=== PATIENT | female | born 1950 | race Caucasian/White ===

== ENCOUNTER 2017-05-19 10:30 | Outpatient (RCR) | payer MEDICARE, OTHER, SELFPAY ==
--- NOTE | 2017-05-05 13:12 | HP.PTEVAL_ITS ---
Patient's Visit Information DOUG REYES is a 66 year old F referred to Physical Therapy by Raven Mark with a diagnosis of CERVICAL FUSION 10/02/16. Date of Evaluation: 05/05/17 Physical Therapist: Anna Martinez Visit Plan Frequency: 2-3x /Week Duration: 4-6 Weeks Plan: THORACIC SOFT TISSUE MOBILIZATION. US. POSTURE CORRECTION/STRENGTHENING. - Subjective Subjective: Work/Leisure: RETIRED. Disability: YES. Present symptoms: PATIENT POINTS TO/INDICATES RIGHT MEDIAL SCAPULAR REGION PAIN. CHRONIC KRUNAL UE NUMBNESS AND TINGLING. Present since: A FEW WEEKS AFTER NECK SURGERY IN OCTOBER 2016. Pain Scale: WORST 8/10, LEAST 0/10. Currently: 0/10. UNCHANGING. Commenced as a result of: NO APPARENT REASON OTHER THAN NECK SURGERY. Symptoms at onset: SAME. Worse: NOTHING. Better: ICE OR HEAT. Disturbed sleep : YES. Previous history/Previous treatment: PHYSICAL THERAPY FOR 3 WEEKS IN THE [facility] AFTER SURGERY IN OCTOBER 2016. OTHER: PATIENT DENIES DIZZINESS, NAUSEA AND TINNITIS BUT REPORTS SHE DOES STILL HAVE SOME DIFFICULTY SWOLLOWING. Gait: DIFFICULT DUE TO BACK AND HIP PAIN BUT NO AD'S. Accidents: NO. Unexplained weight loss: NO. Imaging: RECENT NECK X-RAY SHOWING FUSION SX. PMH: OSTEOPOROSIS, ARTHRITIS. Recent major surgery: RIGHT TSR IN 2015. NECK FUSION OCTOBER 2016 - Objective Posture: POOR - FORWARD HEAD. NO TORTICOLLIS. ROUNDED SHOULDERS. Motor deficit: KRUNAL UE WEAKNESS BUT WFL. RIGHT UE IS WEAKER THAN LEFT AND GROSSLY 3+/ 5 WITH MMT OF SHOULDER. RIGHT ELBOW 4-/5 AND NETWORK SECURITY CONSULTANT 15 LBS. PATIENT IS RIGHT HAND DOMINANT. LEFT SHOULDER 4-/5, ELBOW 4/5 AND NETWORK SECURITY CONSULTANT 20 LBS. Sensory deficit: KRUNAL UE LIGHT TOUCH SENSATION APPEARS TO BE SYMMETRICAL WITH TESTING BUT ALTHOUGH SHE CAN FEEL ME TOUCHING HER ABOUT THE SAME ON BOTH SIDES THEY FEEL NUMB AND TINGLY TO HER. SHE DOES HAVE DECREASED LIGHT TOUCH SENSATION OF THE LEFT MEDIAL SCAPULAR REGION COMPARED TO THE RIGHT. ROM deficit: KRUNAL UE ROM IS WFL BUT SHE HAS ARTHRITIC HANDS AND HER RIGHT SHOULDER IS ABOUT 25% LIMITED. Dural Signs: POSITIVE KRUNAL UE'S. CERVICAL MVMT LOSS: FLEX - MIN, EXT - SOL, KRUNAL ROT - MOD TO SOL, KRUNAL SB - SOL, RETRACTION - SOL, PROTRACTION - NIL. Postural Strength: POOR. Palpation: TENDERNESS WITH PALPATION OF THE LEFT THORACIC PARASPINALS AT ABOUT THE [id number] REGION COMPARED TO THE LEFT. INCREASED MUSCLE TONE OF LEFT CERVICAL AND THORACIC PARASPINALS COMPARED TO THE RIGHT. - Goals Goal 1:: DECREASE C/O LEFT MEDIAL SCAPULAR REGION PAIN Goal Time Frame: 4-6 Weeks Goal 2:: IMPROVE PERSONAL CARE, LIFTING, SLEEP, ADL, DRIVING AND RECREATIONAL FUNCTION. Goal Time Frame: 4-6 Weeks Goal 3:: INSTRUCT IN PROPHYLAXIS Goal Time Frame: 4-6 Weeks - Rehabilitation Potential Rehabilitation Potential: Fair - Anticipated Interventions Patient/Client Instruction: Educate patient on: Condition, Plan of Care, Risk Factors, Benefits of Fitness Program For the Purpose of:: To improve self management Therapeutic Exercise to Include: Strength training, Body mechanics, Postural training, Flexibilty training, Scapular Strength/Stabilization For the Purpose of:: To decrease pain, To increase ROM, To improve ability to perform ADL's, To improve ability of physical actions for home/community/work/ leisure Manual Therapy Techniques to Include: Soft tissue mobilization For the Purpose of:: To decrease pain, To decrease swelling/inflammation Cryotherapy (ice pack, ice massage): Yes Thermo therapy (hot pack): Yes Ultrasound (thermal/non thermal): Yes For the Purpose of:: To decrease pain, To decrease swelling/inflammation, To increase ROM Thank you for the opportunity to evaluate your patient. For Medicare and Medicare HMO plans, please review the plan of care and approve it. It will need to be FAXED BACK to us at [phone] for Medicare purposes. Please let me know if there are questions or concerns regarding this plan of care. Physician Signature: Date:
--- NOTE | 2017-07-01 10:49 | HP.PTDCNRP_ITS ---
HP - Discharge Summary (1) - Patient Information DOUG REYES was seen in my office for initial evaluation on 05/05/17. The following Plan of Care was established for this patient: Initial Frequency: 2-3x /Week Initial Duration: 4-6 Weeks - Anticipated Interventions Patient/Client Instruction: Educate patient on: Condition, Plan of Care, Risk Factors, Benefits of Fitness Program For the Purpose of:: To improve self management Therapeutic Exercise to Include: Strength training, Body mechanics, Postural training, Flexibilty training, Scapular Strength/Stabilization For the Purpose of:: To decrease pain, To increase ROM, To improve ability to perform ADL's, To improve ability of physical actions for home/community/work/ leisure Manual Therapy Techniques to Include: Soft tissue mobilization For the Purpose of:: To decrease pain, To decrease swelling/inflammation Cryotherapy (ice pack, ice massage): Yes Thermo therapy (hot pack): Yes Ultrasound (thermal/non thermal): Yes For the Purpose of:: To decrease pain, To decrease swelling/inflammation, To increase ROM This patient was last seen in our office 05/19/17. Pertinent comments regarding their Physical therapy will appear below: This patient has not returned to Physical Therapy and is appropriate to return to MD for further follow-up as needed. At this point I will be discontinuing this patient from physical therapy. I would be happy to see this patient again in the future if found appropriate by the physician. Thank you! Anna Hudson
== END 2017-05-19 19:00 | disposition home or self-care (01) ==
LOC: PT 10:30
PROVIDERS: Family Provider Family Medicine; PCP Family Medicine; Visit Provider Orthopaedic Surgery
DX: Z98.890 Other specified postprocedural states (principal)
CPT/HCPCS: 97110; 97162; 97530

== ENCOUNTER 2017-07-03 15:41 | Inpatient (IN) | payer MEDICARE, OTHER, SELFPAY ==
[2017-07-03 16:10] VITALS: BP 98/64; PULSE 100; RESP 18; TEMP 37.2; O2SAT 93; BMI 23.3
--- NOTE | 2017-07-03 16:11 | REHABEVAL_ITS ---
Admission Information Status Changes from Prescreening?: No changes Identified Actual Problem List:: Pain, ALteration in Cmfrt, Mobility Impaired, Self Care Deficit Potential Problem List:: DVT, Bleeding, Infection, UTI, Aspiration, Falls, Skin Integrity, Depression Risk of Complications DVT: EVAN Schaefer, Sequential Compression Device Bleeding: Monitor Lab Values, Nursing to Teach Precautions for anti-coagulation therapy., Wound, if applicable, to be assessed every shift., Stroke patients assessed for lethargy or change in status. Infection: Clinical Staff to Monitor for S/S of infection:, S/S of infection include fever, redness, warmth, etc. Urinary Tract Infection: Monitor for frequency, burning, discomfort, or incontinence., Nursing will obtain urine sample for urinalysis and C&S when ordered. Aspiration: Clinical staff will monitor for coughing, drooling, congestion., Speech will evaluate swallowing and dsyphasia., Nursing will monitor patient swallowing during meals. Falls: Patient will be evaluated for Fall Precautions, Patient will be placed on Fall Precautions as indicated per protocol. Skin Breakdown: Nursing will assess skin daily using assessment tool., Nursing will place on Skin Breakdown Precautions as indicated. Pain: Clinical staff will assess patient's pain level per protocol., Medications will be given, if needed, and the pain level reassessed., Other methods: Massage, distraction, decrease stimulus, etc. used PRN. Plan of Care Patient requires physician specializing in physical medicine and rehab oversight to provide close medical supervision of rehab issues including: Pain Management, Sleep Problems, Bowel and Bladder, Medical and co-morbidity Management, DVT prophylaxis, Rehabilitation Leadership, Coordination of treatment team Patient needs Physical Therapy: For a minimum of 1 hour, At least 5 out of 7 days Patient needs Physical Therapy to improve:: Mobility, Mobility, Mobility, Strengthening, Transfers, Stretching, ROM, Endurance, Stairs, Gait, Balance Patient needs Occupational Therapy: For a minimum of 1 hour, At least 5 out of 7 days Patient needs Occupational Therapy to improve ADL's incl.: Eating, Grooming, Bathing, Dressing, Toileting, Toilet transfers, Community Reintegration, Higher functioning activities, Household tasks, Adaptive Equipment, Splinting, Other activities as determined Patient requires 24/7 Rehabilitation Nursing for: Pain Issues, Identifying and preventing risk factors, Monitoring and reporting current medical conditions, Assisting with ambulation, transfer, and all ADL's, Teaching patients about disease process and medications, Family teaching, Providing safe environment, Bowel and Bladder Issues, Skin integrity, Medication Management Patient needs Director Biomedical Engineering/ Case Management for: Discharge Planning, Arranging Home Equipment or Services, Family Interventions Patient needs Dietary and Nutrition Services for: Adequate Nutrition, Nutritional Supplements, Nutritional Education Goals Patient will remain: free from falls, or injury at time of discharge. Patient will perform bed mobility at: MOD I level of assist. Patient will complete transfers from bed to chair at: MOD I level of assist. Patient will ambulate: 100 feet, with MOD I assist, with LRD Patient will complete upper body dressing at: MOD I level of assist. Patient will complete lower body dressing at: MOD I level of assist. Patient will complete toileting at: MOD I level of assist. Patient will perform bathing at: MOD I level of assist. Patient will complete grooming at: MOD I level of assist. Patient will complete home management skills at: MOD I level of assist. Patient will achieve: 12 stairs, at MOD I assist Patient will have pain level of: of 3 or less Patient's skin will: remain intact, free from infection. Patient will receive: adequate nutrition. Discharge Planning Pt Prognosis for Sig. Practical Improv. w/in Reasonable Time: Good Estimated Length of stay (days): 14 Anticipated D/C Destination: Home Was Preadmission Assessment Accurate?: Yes
--- NOTE | 2017-07-03 16:43 | PCM.HP.COS ---
History of Present Illness Date of Admission: 07/03/17 Chief Complaint: Laminectomy The patient is a 66 year old old right-handed female who was admitted to the rehab unit for rehabilitation after surgery for Laminectomy L2 - L3, Posterior fusion, with revision Lami L4 w/locale bone grafting allograft by on 07/01 surgery was without complications. She has a back brace LSO that she must wear when up walking around, will have daily dressing changes, the incision site is C/D nataliia are intact, wound is well approximated, with no drainage noted no redness or warmth no tenderness on palpation. She has a past history of Fibromyalgia, Osteoporosis, Spinal stenosis, and anemia. She lives alone in a one story home with no steps to get into the home. she is previously completely functionally independent and is admitted to the rehab unit in order to restore her previous level of functional independence. Past Medical History Allergies No Known Allergies Allergy (Verified 04/14/17 16:00) Home Medications: Ambulatory Orders Medication Instructions Recorded Calcium Carbonate [Calcium] 600 mg PO DAILY 07/03/17 Linaclotide [Linzess] 72 mcg PO DAILY PRN 07/03/17 Multivitamin [Daily Multiple 1 each PO DAILY 07/03/17 Vitamin] [place]-3 Fatty Acids/Fish Oil [Fish 1 each PO DAILY 07/03/17 Oil 1,000 mg Capsule] Surgical History: - - Anterior cervical discictomy, Hemorroidectomy, Right total shoulder repair. Psychiatric History: No pertinent psych hx ELECTRONIC WARFARE TECHNICAL History: No pertinent ELECTRONIC WARFARE TECHNICAL history Lives: Alone Smoking Status: Former smoker Alcohol: None Drugs: None Review of Systems Constitutional: Denies: Chills, Fever, Weight Change HEENT: Denies: Head Aches, Sinus Congestion, Sinus Drainage Cardiovascular: Denies: Chest Pain, Palpitations Respiratory: Denies: Cough, Shortness of breath at rest, Sputum production Gastrointestinal: Denies: Abdominal Pain, Nausea, Vomiting Genitourinary: Denies: Dysuria Musculoskeletal: Denies: Joint Pain, Joint Tenderness Skin: Denies: Rash, Wounds Neurological: Denies: Numbness, Tingling, Focal weakness Psychiatric: Denies: Anxiety, Depression, Homicidal Ideations, Suicidal Ideations Hematologic/ Lymphatic: Denies: Easy Bruising, Easy Bleeding VTE Information - Inpt Only VTE Present on Admission: No VTE Mechan Device Prophylaxis: SCD's, Knee High EVAN Hose VTE Pharm Prophylaxis ordered?: Yes - Physical Exam General: Alert, Oriented x3, Cooperative HEENT: Atraumatic, PERRLA, EOMI, Normocephalic Neck: Supple, No JVD, Negative Carotid Bruits Lungs: Clear to auscultation, Normal air movement Cardiovascular: Regular rate, No murmurs Abdomen: Bowel Sounds Present, Soft, Non Tender Extremities: No edema, Capillary Refill Less than 3 Seconds Skin: No rashes, No breakdown Musculoskeletal: No Tenderness to Palpation of Joints or Extremities, - - Posterior back incision, C/D ntaaliia intact Neurological: Cranial nerves II-XII grossly intact, Neuro grossly intact, - - 4/5 strength right lower extremity. 5/5 both upper and lower left side and right L/E Psych/Mental Status: Normal Affect, Appropriate, Alert and oriented to time, place, person, mood and affect Vital Signs Temp Pulse Resp BP Pulse Ox 98.9 F 100 18 98/64 93 07/03/17 16:10 07/03/17 16:10 07/03/17 16:10 07/03/17 16:10 07/03/17 16:10 Oxygen Delivery Method Room Air Weight: 54.2 kg Body Mass Index (BMI) 23.3 Home Medications Calcium Carbonate [Calcium] 600 mg PO DAILY 07/03/17 Linaclotide [Linzess] 72 mcg PO DAILY PRN 07/03/17 Multivitamin [Daily Multiple Vitamin] 1 each PO DAILY 07/03/17 [place]-3 Fatty Acids/Fish Oil [Fish Oil 1,000 mg Capsule] 1 each PO DAILY 07/03/17 Active Medications Acetaminophen (Tylenol) 650 mg PO Q6H PRN PRN PRN Reason: Mild Pain (0-3/10)/Headache Bisacodyl (Dulcolax) 10 mg RECTAL .PRN X 1 PRN PRN Reason: Constipation Fentanyl (Duragesic) 12 mcg TRANSDERM. Q3D KAIN Magnesium Hydroxide (Milk Of Magnesia) 30 ml PO .PRN X 1 PRN PRN Reason: Constipation Oxycodone HCl (Oxyir) 5 - 10 mg PO Q6H PRN PRN PRN Reason: PAIN Senna/Docusate Sodium (Senokot-S, Nora-Colace) 2 tablet PO BID [facility]END[facility] TO [facility] Assessment/Plan Debility s/p Laminectomy L2 - L3 with posterior fusion, Revision of lami L4 w/Locale bone grafting and allograft. goal of rehab is orthodoxy of functional independence. Plan: - Physical therapy for gait and balance - Occupational Therapy for ADLs - As needed analgesics - Bowel protocol - DVT prophylaxis: Ramiro Ho - Incision site C/D/I, => no redness or warmth noted around incision area. - AM Labs CBC, CMP, Mag, and Phos - Hx IBS => on Linzess at home
--- NOTE | 2017-07-03 16:52 | HP.PCM.COS_ITS ---
History of Present Illness Date of Admission: 07/03/17 Chief Complaint: Laminectomy The patient is a 66 year old old right-handed female who was admitted to the rehab unit for rehabilitation after surgery for Laminectomy L2 - L3, Posterior fusion, with revision Lami L4 w/locale bone grafting allograft by on surgery was without complications. She has a back brace LSO that she must wear when up walking around, will have daily dressing changes, the incision site is C/D nataliia are intact, wound is well approximated, with no drainage noted no redness or warmth no tenderness on palpation. She has a past history of Fibromyalgia, Osteoporosis, Spinal stenosis, and anemia. She lives alone in a one story home with no steps to get into the home. she is previously completely functionally independent and is admitted to the rehab unit in order to restore her previous level of functional independence. Past Medical History Allergies No Known Allergies Allergy (Verified 04/14/17 16:00) Home Medications: Ambulatory Orders Medication Instructions Recorded Calcium Carbonate [Calcium] 600 mg PO DAILY 07/03/17 Linaclotide [Linzess] 72 mcg PO DAILY PRN 07/03/17 Multivitamin [Daily Multiple 1 each PO DAILY 07/03/17 Vitamin] [place]-3 Fatty Acids/Fish Oil [Fish 1 each PO DAILY 07/03/17 Oil 1,000 mg Capsule] Surgical History: - - Anterior cervical discictomy, Hemorroidectomy, Right total shoulder repair. Psychiatric History: No pertinent psych hx EXCHANGE ARCHITECT History: No pertinent EXCHANGE ARCHITECT history Lives: Alone Smoking Status: Former smoker Alcohol: None Drugs: None Review of Systems Constitutional: Denies: Chills, Fever, Weight Change HEENT: Denies: Head Aches, Sinus Congestion, Sinus Drainage Cardiovascular: Denies: Chest Pain, Palpitations Respiratory: Denies: Cough, Shortness of breath at rest, Sputum production Gastrointestinal: Denies: Abdominal Pain, Nausea, Vomiting Genitourinary: Denies: Dysuria Musculoskeletal: Denies: Joint Pain, Joint Tenderness Skin: Denies: Rash, Wounds Neurological: Denies: Numbness, Tingling, Focal weakness Psychiatric: Denies: Anxiety, Depression, Homicidal Ideations, Suicidal Ideations Hematologic/ Lymphatic: Denies: Easy Bruising, Easy Bleeding VTE Information - Inpt Only VTE Present on Admission: No VTE Mechan Device Prophylaxis: SCD's, Knee High EVAN Hose VTE Pharm Prophylaxis ordered?: Yes - Physical Exam General: Alert, Oriented x3, Cooperative HEENT: Atraumatic, PERRLA, EOMI, Normocephalic Neck: Supple, No JVD, Negative Carotid Bruits Lungs: Clear to auscultation, Normal air movement Cardiovascular: Regular rate, No murmurs Abdomen: Bowel Sounds Present, Soft, Non Tender Extremities: No edema, Capillary Refill Less than 3 Seconds Skin: No rashes, No breakdown Musculoskeletal: No Tenderness to Palpation of Joints or Extremities, - - Posterior back incision, C/D nataliia intact Neurological: Cranial nerves II-XII grossly intact, Neuro grossly intact, - - 4/ 5 strength right lower extremity. 5/5 both upper and lower left side and right L /E Psych/Mental Status: Normal Affect, Appropriate, Alert and oriented to time, place, person, mood and affect Vital Signs Temp Pulse Resp BP Pulse Ox 98.9 F 100 18 98/64 93 07/03/17 16:10 07/03/17 16:10 07/03/17 16:10 07/03/17 16:10 07/03/17 16:10 Oxygen Delivery Method Room Air Weight: 54.2 kg Body Mass Index (BMI) 23.3 Home Medications Calcium Carbonate [Calcium] 600 mg PO DAILY 07/03/17 Linaclotide [Linzess] 72 mcg PO DAILY PRN 07/03/17 Multivitamin [Daily Multiple Vitamin] 1 each PO DAILY 07/03/17 [place]-3 Fatty Acids/Fish Oil [Fish Oil 1,000 mg Capsule] 1 each PO DAILY Active Medications Acetaminophen (Tylenol) 650 mg PO Q6H PRN PRN PRN Reason: Mild Pain (0-3/10)/Headache Bisacodyl (Dulcolax) 10 mg RECTAL .PRN X 1 PRN PRN Reason: Constipation Fentanyl (Duragesic) 12 mcg TRANSDERM. Q3D KAIN Magnesium Hydroxide (Milk Of Magnesia) 30 ml PO .PRN X 1 PRN PRN Reason: Constipation Oxycodone HCl (Oxyir) 5 - 10 mg PO Q6H PRN PRN PRN Reason: PAIN Senna/Docusate Sodium (Senokot-S, Nora-Colace) 2 tablet PO BID [facility] Assessment/Plan Debility s/p Laminectomy L2 - L3 with posterior fusion, Revision of lami L4 w/ Locale bone grafting and allograft. goal of rehab is mosque of functional independence. Plan: - Physical therapy for gait and balance - Occupational Therapy for ADLs - As needed analgesics - Bowel protocol - DVT prophylaxis: Ramiro Ho - Incision site C/D/I, => no redness or warmth noted around incision area. - AM Labs CBC, CMP, Mag, and Phos - Hx IBS => on Linzess at home
--- NOTE | 2017-07-03 17:44 | PCM.PROGNOTE ---
<Vanessa Tabor - Last Filed: 07/03/17 17:51> Subjective: Patient is a 66-year-old female admitted to rehab units 3-18 after undergoing laminectomy L2-L3, posterior fusion with revision laminectomy L4 with local bone grafting by Dr. Sidhu 07/01/17. Patient denies complications during surgery. She complains of significant pain. She states she has not had a bowel movement since prior to surgery. She denies feeling constipated. Hospitalist consulted for medical management. Patient has a past medical history of fibromyalgia, osteoporosis, spinal stenosis and chronic anemia. Incision site well approximated, nataliia intact. No signs of infection. Patient denies numbness, tingling. Denies other complaints. - Physical Exam General: Alert, Oriented x3, Cooperative, No apparent distress HEENT: Atraumatic, PERRLA, EOMI, Normocephalic Neck: Supple, No JVD, Negative Carotid Bruits Lungs: Clear to auscultation, Normal air movement Cardiovascular: Regular rate, Regular Rhythm, Normal S1, Normal S2, No murmurs Abdomen: Bowel Sounds Present, Soft, Non Tender, Non-Distended Extremities: No clubbing, No cyanosis, No edema, Capillary Refill Less than 3 Seconds Skin: No rashes, No breakdown, - - Post op incision with nataliia intact. No signs of redness or infection. Musculoskeletal: No Tenderness to Palpation of Joints or Extremities Neurological: Cranial nerves II-XII grossly intact, Neuro grossly intact Psych/Mental Status: Normal Affect, Appropriate Vital Signs Temp Pulse Resp BP Pulse Ox 98.9 F 100 18 98/64 93 07/03/17 16:10 07/03/17 16:10 07/03/17 16:10 07/03/17 16:10 07/03/17 16:10 Oxygen Delivery Method Room Air Weight: 54.2 kg Body Mass Index (BMI) 23.3 Assessment/Plan 1. Status post laminectomy L2 through L3 with history of spinal stenosis- surgery 07/01/[address] Sidhu. PT/OT. Daily dressing changes. Continue fentanyl patch, OxyIR as needed and Tylenol as needed for pain. Adjustments as needed. Continue bowel regimen. 2. Osteoporosis-continue home calcium regimen. 3. Irritable bowel syndrome with constipation-continue home Linzess regimen. Senna/docusate sodium added to twice daily. 4. Chronic anemia-check CBC in a.m. DVT prophylaxis-Ramiro, EVAN blackmon. This patient was seen by CARMEN JohnsonC under the supervision of Dr. Healy. <Audrey Healy - Last Filed: 07/03/17 18:40> - Physical Exam Vital Signs Temp Pulse Resp BP Pulse Ox 98.9 F 100 18 98/64 93 07/03/17 16:10 07/03/17 16:10 07/03/17 16:10 07/03/17 16:10 07/03/17 16:10 Oxygen Delivery Method Room Air Weight: 54.2 kg Body Mass Index (BMI) 23.3 Assessment/Plan Patient was seen and examined independently of nurse practitioner, Vanessa Tabor. I agree with her documentation of history and physical exam as well as assessment and plan as above. In summary: Patient is a 66-year-old with past medical history of osteoporosis, spinal stenosis who comes to the acute rehab today status post laminectomy L2-L3. Patient admits that pain is fairly controlled, just had a fentanyl patch placed on and she is on OxyIR when necessary for pain. She denied any fever or chills or shortness of breath. Vitals reviewed, documentation reviewed. She is here for acute inpatient rehab. Physical exam: General: Patient looks well, lying in bed, afebrile, not pale, not jaundiced. CVS: Heart sounds 1 and 2 are present, no murmurs were heard RESP: Clinically clear to auscultation EXT: No bilateral leg edema ABD: Soft, nontender, no palpable organs A/P: 1. Debility, status post recent surgery, status post laminectomy, continue with pain control, PT and OT evaluations and treatment 2. Osteoporosis, on calcium 3. Anemia, labs per inpatient rehab schedule 4. DVT prophylaxis with Ramiro and EVAN blackmon Thank you for the consult and we'll continue to follow patient with you. Code Visit Inpatient E&M: [id number] Init Hosp L3
[2017-07-03 20:09] VITALS: BP 96/55; PULSE 83; RESP 14; TEMP 37; O2SAT 96
[2017-07-03] MEDS: oxyCODONE 5 MG Tablet PO (20:13)
[2017-07-03] MEDS: Senna/Docusate Sodium 1 Tablet 2 TABLET PO (20:13)
[2017-07-03] MEDS: Acetaminophen 325 MG Tablet 650 MG PO (23:29)
[2017-07-04] MEDS: oxyCODONE 5 MG Tablet PO ×4 (02:15→20:41)
[2017-07-04] MEDS: Acetaminophen 325 MG Tablet 650 MG PO ×2 (07:11→18:44)
[2017-07-04] MEDS: Senna/Docusate Sodium 1 Tablet 2 TABLET PO ×2 (08:28→20:42)
[2017-07-04] MEDS: Multivitamins,Therapeutic Tablet 1 TABLET PO (08:29)
[2017-07-04] MEDS: Calcium (Elemental) 500 MG Tablet PO (08:29)
[2017-07-04] MEDS: Omega-3 Acid Ethyl Esters 1 GM Capsule PO (08:29)
[2017-07-04] MEDS: Magnesium Hydroxide 30 ML UDC PO ×2 (08:33→20:41)
[2017-07-04 08:48] LABS: Hematocrit 25.4 % (37-47); Hemoglobin 8.6 g/dl (12.0-15.0); Mean Corp Hgb Conc 33.9 g/gl (32-36); Mean Corpuscular Hgb 34.3 pg (27.0-32.0); Mean Corpuscular Volume 101.2 fL (81-99); Mean Platelet Vol. 10.6 fl (6.2-12.0); Platelet Count 212 K/mm3 (150-450); RBC Distribution Width CV 11.5 % (11.6-14.6); RBC Distribution Width SD 41.2 fl (35.1-43.9); Red Blood Count 2.51 M/mm3 (4.2-5.4); White Blood Count 6.2 K/mm3 (4.4-11.0)
[2017-07-04 08:49] LABS: Scan Indicated on CBC? Y/N NO
[2017-07-04 09:42] LABS: ALB/GLOB Ratio 0.9 RATIO (0.9-2.4); AST(SGOT) 26 U/L (15-37); Alanine Aminotransfer ALT/SGPT 15 U/L (13-56); Albumin, Serum 2.8 g/dL (3.2-5.0); Alkaline Phosphatase 75 U/L (45-117); Anion Gap 7 (5-15); BUN 12 mg/dL (7-18); BUN/Creat Ratio 16.3 RATIO (10-20); Calcium,Total 9.2 mg/dL (8.5-10.1); Chloride 100 mmol/L (98-107); Creatinine, Serum 0.74 mg/dL (0.55-1.02); EST Glomerular Filtration Rate 84 mL/min (>60); Est Glom Filt Rate - Afr Amer 101 mL/min (>60); Estimated Creatinine Clearance 39.75 ml/min; Globulin 3.2 g/dL (2.2-4.2); Glucose 97 mg/dL (74-106); Phosphorus 3.3 mg/dL (2.5-4.9); Potassium 3.8 mmol/L (3.5-5.1); Sodium Level 139 mmol/L (136-145)
[2017-07-04 10:00] VITALS: BP 89/56; PULSE 90; RESP 16; TEMP 36.7; O2SAT 99
[2017-07-04 13:05] VITALS: O2SAT 95
[2017-07-04 20:34] VITALS: BP 95/74; PULSE 88; RESP 17; TEMP 37.1; O2SAT 97
[2017-07-05] MEDS: Acetaminophen 325 MG Tablet 650 MG PO ×3 (01:25→16:58)
[2017-07-05] MEDS: oxyCODONE 5 MG Tablet PO ×4 (03:31→22:54)
[2017-07-05] MEDS: Bisacodyl 10 MG Suppository RECTAL (06:26)
[2017-07-05] MEDS: Senna/Docusate Sodium 1 Tablet 2 TABLET PO ×2 (08:22→19:30)
[2017-07-05] MEDS: Omega-3 Acid Ethyl Esters 1 GM Capsule PO (08:22)
[2017-07-05] MEDS: Multivitamins,Therapeutic Tablet 1 TABLET PO (08:22)
[2017-07-05] MEDS: Calcium (Elemental) 500 MG Tablet PO (08:22)
[2017-07-05 10:00] VITALS: BP 109/68; PULSE 86; RESP 18; TEMP 36.6; O2SAT 96
--- NOTE | 2017-07-05 10:50 | NURSING ---
dr balbuena here and aware of patient having pain to back to going to bilateral legs. rated pain 10/10. duragesic increased to [address] corbin on thursday07/06/2017
[2017-07-05] MEDS: fentaNYL 25 MCG Patch TRANSDERM. (11:18)
--- NOTE | 2017-07-05 12:20 | NURSING ---
dr balbuena aware of continued pain and radiation to ble. new order for neurontin.
[2017-07-05 13:36] VITALS: O2SAT 99
[2017-07-05] MEDS: Gabapentin 300 MG Capsule PO ×2 (14:23→16:56)
--- NOTE | 2017-07-05 17:40 | NURSING ---
spoke with patient and son about some questions and concerns about rehab. Son was updated about Dr. corbin consult and rehab routine and orders. both verbalized understanding.
[2017-07-05 19:37] VITALS: BP 111/67; PULSE 87; RESP 18; TEMP 37; O2SAT 99
[2017-07-06] MEDS: Acetaminophen 325 MG Tablet 650 MG PO ×4 (01:33→22:15)
[2017-07-06] MEDS: oxyCODONE 5 MG Tablet PO ×4 (04:45→23:34)
[2017-07-06] MEDS: Omega-3 Acid Ethyl Esters 1 GM Capsule PO (08:15)
[2017-07-06] MEDS: Gabapentin 300 MG Capsule PO ×3 (08:15→17:14)
[2017-07-06] MEDS: Multivitamins,Therapeutic Tablet 1 TABLET PO (08:15)
[2017-07-06] MEDS: Senna/Docusate Sodium 1 Tablet 2 TABLET PO ×2 (08:15→22:12)
[2017-07-06] MEDS: Calcium (Elemental) 500 MG Tablet PO (08:15)
[2017-07-06 08:47] VITALS: BP 104/65; PULSE 103; RESP 16; TEMP 36.8; O2SAT 100
--- NOTE | 2017-07-06 10:16 | VDLE_ITS ---
Reason For Study: LEG PAIN RIGHT LEFT GSV is normal. GSV is normal. CFV is compressible, spontaneous, phasic, CFV is compressible, spontaneous, phasic, competent and demonstrates normal competent, and demonstrates normal augmentation. augmentation. FV is compressible, spontaneous, phasic, FV is compressible, spontaneous, phasic, competent and demonstrates normal competent and demonstrates normal augmentation. augmentation. POP V is compressible, spontaneous, phasic, POP V is compressible, spontaneous, phasic, competent and demonstrates normal competent and demonstrates normal augmentation. augmentation. T/P Trunk is compressible. T/P Trunk is compressible. PTV is compressible. PTV is compressible. RT PerV is compressible. LT PerV is compressible. Procedure Exam performed portable in patient room. A preliminary report was called and/or faxed to RU nurse. Interpretation Summary Deep veins of the lower extremities are bilaterally patent and compressible segmentally. There is no evidence of deep vein thrombosis on either side. Valvular competence appears intact within the proximal deep venous systems bilaterally. The greater saphenous veins appear bilaterally patent and compressible segmentally. Ordering Physician: Lorraine Gee Referring Physician: Arjun Bernal Performed By: Yashira Hernandez RVT
--- NOTE | 2017-07-06 14:30 | NURSING ---
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
[2017-07-06 15:10] VITALS: O2SAT 99
--- NOTE | 2017-07-06 16:10 | CHAPLAIN ---
two attempts made to visit; pt was busy and then she was asleep
--- NOTE | 2017-07-06 16:51 | PCM.PN.NEU ---
Subjective: Patient seen and examined. Complaining of right leg pain radiating into groin area, obtained a duplex of bilateral lower extremity, which was unremarkable. Given the the patient recent surgery will obtain a CT scan of her lumbar spine. Patient is tolerating therapy. no issues with GI/. - Physical Exam General: Alert, Oriented x3, Cooperative HEENT: Atraumatic, PERRLA, EOMI, Normocephalic Neck: Supple, No JVD, Negative Carotid Bruits Lungs: Clear to auscultation, Normal air movement Cardiovascular: Regular rate, No murmurs Abdomen: Bowel Sounds Present, Soft, Non Tender Extremities: No edema, Capillary Refill Less than 3 Seconds Skin: No rashes, No breakdown Musculoskeletal: No Tenderness to Palpation of Joints or Extremities Neurological: Cranial nerves II-XII grossly intact Psych/Mental Status: Normal Affect, Appropriate Vital Signs Temp Pulse Resp BP Pulse Ox 98.3 F 103 H 16 104/65 100 07/06/17 08:47 07/06/17 08:47 07/06/17 08:47 07/06/17 08:47 07/06/17 08:47 Oxygen Delivery Method Room Air Weight: 54.2 kg Body Mass Index (BMI) 23.3 Intake and Output for Last 24 Hours 07/04/17 07/05/17 07/06/17 23:59 23:59 23:59 Intake Total 240 / 240 240 / 240 220 / 220 Balance 240 / 240 240 / 240 220 / 220 Active Medications Acetaminophen (Tylenol) 650 mg PO Q6H PRN PRN PRN Reason: Mild Pain (0-3/10)/Headache Last Admin: 07/06/17 14:28 Dose: 650 mg Bisacodyl (Dulcolax) 10 mg RECTAL .PRN X 1 PRN PRN Reason: Constipation Last Admin: 07/05/17 06:26 Dose: 10 mg Calcium Carbonate (Os-Sergio 500) 500 mg PO DAILYCM REPLACED BY [facility] Last Admin: 07/06/17 08:15 Dose: 500 mg Fentanyl (Duragesic) 25 mcg TRANSDERM. Q3D REPLACED BY [facility] Last Admin: 07/05/17 11:18 Dose: 25 mcg Gabapentin (Neurontin) 300 mg PO TIDCM REPLACED BY [facility] Last Admin: 07/06/17 12:00 Dose: 300 mg Magnesium Hydroxide (Milk Of Magnesia) 30 ml PO .PRN X 1 PRN PRN Reason: Constipation Last Admin: 07/04/17 20:41 Dose: 30 ml Multivitamins (Multivitamin) 1 tablet PO DAILY@0800 REPLACED BY [facility] Last Admin: 07/06/17 08:15 Dose: 1 tablet Non-Formulary Medication (Linaclotide) 72 mcg PO DAILY PRN PRN Reason: PAIN Nutritional Formula (Lactose Free) (Ensure Enlive) 120 ml PO 4X/DAY REPLACED BY [facility] Last Admin: 07/06/17 14:03 Dose: 120 ml Hocjk-1-Vdek Ethyl Esters (Lovaza) 1 gm PO DAILY REPLACED BY [facility] Last Admin: 07/06/17 08:15 Dose: 1 gm Oxycodone HCl (Oxyir) 5 - 10 mg PO Q6H PRN PRN PRN Reason: PAIN Last Admin: 07/06/17 10:55 Dose: 10 mg Senna/Docusate Sodium (Senokot-S, Nora-Colace) 2 tablet PO BID REPLACED BY [facility] Last Admin: 07/06/17 08:15 Dose: 2 tablet Assessment/Plan Debility s/p Laminectomy L2 - L3 with posterior fusion, Revision of lami L4 w/Locale bone grafting and allograft. goal of rehab is sabianism of functional independence. Plan: - Physical therapy for gait and balance - Occupational Therapy for ADLs - As needed analgesics - Bowel protocol - DVT prophylaxis: Ramiro Ho - Incision site C/D/I, => no redness or warmth noted around incision area. - AM Labs CBC, CMP, Mag, and Phos - Hx IBS => on Linzess at home - Duplex of bilateral lower extremity for possible DVT of right leg - CT scan of lumbar spine
--- NOTE | 2017-07-06 16:59 | PN.NEURO_ITS ---
Subjective: Patient seen and examined. Complaining of right leg pain radiating into groin area, obtained a duplex of bilateral lower extremity, which was unremarkable. Given the the patient recent surgery will obtain a CT scan of her lumbar spine. Patient is tolerating therapy. no issues with GI/. - Physical Exam General: Alert, Oriented x3, Cooperative HEENT: Atraumatic, PERRLA, EOMI, Normocephalic Neck: Supple, No JVD, Negative Carotid Bruits Lungs: Clear to auscultation, Normal air movement Cardiovascular: Regular rate, No murmurs Abdomen: Bowel Sounds Present, Soft, Non Tender Extremities: No edema, Capillary Refill Less than 3 Seconds Skin: No rashes, No breakdown Musculoskeletal: No Tenderness to Palpation of Joints or Extremities Neurological: Cranial nerves II-XII grossly intact Psych/Mental Status: Normal Affect, Appropriate Vital Signs Temp Pulse Resp BP Pulse Ox 98.3 F 103 H 16 104/65 100 07/06/17 08:47 07/06/17 08:47 07/06/17 08:47 07/06/17 08:47 07/06/17 08:47 Oxygen Delivery Method Room Air Weight: 54.2 kg Body Mass Index (BMI) 23.3 Intake and Output for Last 24 Hours 07/04/17 07/05/17 07/06/17 23:59 23:59 23:59 Intake Total 240 / 240 240 / 240 220 / 220 Balance 240 / 240 240 / 240 220 / 220 Active Medications Acetaminophen (Tylenol) 650 mg PO Q6H PRN PRN PRN Reason: Mild Pain (0-3/10)/Headache Last Admin: 07/06/17 14:28 Dose: 650 mg Bisacodyl (Dulcolax) 10 mg RECTAL .PRN X 1 PRN PRN Reason: Constipation Last Admin: 07/05/17 06:26 Dose: 10 mg Calcium Carbonate (Os-Sergio 500) 500 mg PO DAILYCM [facility] Last Admin: 07/06/17 08:15 Dose: 500 mg Fentanyl (Duragesic) 25 mcg TRANSDERM. Q3D [facility] Last Admin: 07/05/17 11:18 Dose: 25 mcg Gabapentin (Neurontin) 300 mg PO TIDCM [facility] Last Admin: 07/06/17 12:00 Dose: 300 mg Magnesium Hydroxide (Milk Of Magnesia) 30 ml PO .PRN X 1 PRN PRN Reason: Constipation Last Admin: 07/04/17 20:41 Dose: 30 ml Multivitamins (Multivitamin) 1 tablet PO DAILY@0800 [facility] Last Admin: 07/06/17 08:15 Dose: 1 tablet Non-Formulary Medication (Linaclotide) 72 mcg PO DAILY PRN PRN Reason: PAIN Nutritional Formula (Lactose Free) (Ensure Enlive) 120 ml PO 4X/DAY [facility] Last Admin: 07/06/17 14:03 Dose: 120 ml Chbpn-2-Phoh Ethyl Esters (Lovaza) 1 gm PO DAILY [facility] Last Admin: 07/06/17 08:15 Dose: 1 gm Oxycodone HCl (Oxyir) 5 - 10 mg PO Q6H PRN PRN PRN Reason: PAIN Last Admin: 07/06/17 10:55 Dose: 10 mg Senna/Docusate Sodium (Senokot-S, Nora-Colace) 2 tablet PO BID [facility] Last Admin: 07/06/17 08:15 Dose: 2 tablet Assessment/Plan Debility s/p Laminectomy L2 - L3 with posterior fusion, Revision of lami L4 w/ Locale bone grafting and allograft. goal of rehab is temple of functional independence. Plan: - Physical therapy for gait and balance - Occupational Therapy for ADLs - As needed analgesics - Bowel protocol - DVT prophylaxis: Ramiro Ho - Incision site C/D/I, => no redness or warmth noted around incision area. - AM Labs CBC, CMP, Mag, and Phos - Hx IBS => on Linzess at home - Duplex of bilateral lower extremity for possible DVT of right leg - CT scan of lumbar spine
--- NOTE | 2017-07-06 17:04 | CT_ITS ---
CT Spine Lumbar W/O Contrast INDICATION: RIGHT LEG PAINS/P L2-L3 FUSION T LAMINECTOMYL4 REVISION W/ BONE GRAFT TALLOGRAFT COMPARISON: MRI May 22, 2017 TECHNIQUE: Axial CT imaging of the lumbar spine with coronal and sagittal reformatted images. Radiation dose optimization technique applied. FINDINGS: There is evidence of Millimeter anterolisthesis of L4 on L5 and severe degenerative disc disease and endplate degenerative changes and L4-5 and L5-S1 with effacement of the disc space at L4-5. L4 and L5 bilateral pedicle screws are noted, new from the previous exam. Also new compared to the prior study are L2-3, L3-4, L4-L5, and L5-S1 bilateral laminectomies. There is no evidence of lumbar spinal canal or neuroforaminal stenosis at any level. Hardware appears properly positioned. CT/Spine Lumbar without Contrast IMPRESSION: Postsurgical changes as detailed above. No evidence of residual osseous stenosis. Hardware appears properly positioned. at 1756 Reported and signed by: Karoline Johnson MD Electronically Signed: Karoline Johnson MD at 16:54 EST Tel , Service support ,
--- NOTE | 2017-07-06 17:20 | PCM.PN.HOSP ---
Subjective: Patient was seen and examined. Complains of severe back and right leg pain. Had a doppler ultrasound of leg that was negative. CT scan of spine showed hardware in place. Denies any fever or chills. ROS was negative Vitals/I&O's: Vital Signs Temp Pulse Resp BP Pulse Ox 98.3 F 103 H 16 104/65 99 07/06/17 08:47 07/06/17 08:47 07/06/17 08:47 07/06/17 08:47 07/06/17 15:10 Oxygen Delivery Method Room Air Weight: 54.2 kg Body Mass Index (BMI) 23.3 Intake and Output for Last 24 Hours 07/04/17 07/05/17 07/06/17 23:59 23:59 23:59 Intake Total 240 / 240 240 / 240 220 / 220 Balance 240 / 240 240 / 240 220 / 220 General: Alert, Oriented x3, Cooperative, No apparent distress HEENT: Atraumatic, PERRLA, EOMI, Normocephalic Oral: Moist Mucosa Neck: Supple Lungs: Clear to auscultation, Normal air movement Cardiovascular: Regular rate, Regular Rhythm, Normal S1, Normal S2, No murmurs Abdomen: Bowel Sounds Present, Soft, Non Tender, Non-Distended, No Hepato-splenomegaly Extremities: No edema Skin: No rashes Musculoskeletal: Tenderness - over the low back, lumbar brace in place. Neurological: Cranial nerves II-XII grossly intact Psych/Mental Status: Normal Affect, Appropriate Current Medications Acetaminophen (Tylenol) 650 mg PO Q6H PRN PRN PRN Reason: Mild Pain (0-3/10)/Headache Last Admin: 07/06/17 14:28 Dose: 650 mg Bisacodyl (Dulcolax) 10 mg RECTAL .PRN X 1 PRN PRN Reason: Constipation Last Admin: 07/05/17 06:26 Dose: 10 mg Calcium Carbonate (Os-Sergio 500) 500 mg PO DAILYCM [facility] Last Admin: 07/06/17 08:15 Dose: 500 mg Fentanyl (Duragesic) 25 mcg TRANSDERM. Q3D [facility] Last Admin: 07/05/17 11:18 Dose: 25 mcg Gabapentin (Neurontin) 300 mg PO TIDCM [facility] Last Admin: 07/06/17 17:14 Dose: 300 mg Magnesium Hydroxide (Milk Of Magnesia) 30 ml PO .PRN X 1 PRN PRN Reason: Constipation Last Admin: 07/04/17 20:41 Dose: 30 ml Multivitamins (Multivitamin) 1 tablet PO DAILY@0800 [facility] Last Admin: 07/06/17 08:15 Dose: 1 tablet Non-Formulary Medication (Linaclotide) 72 mcg PO DAILY PRN PRN Reason: PAIN Nutritional Formula (Lactose Free) (Ensure Enlive) 120 ml PO 4X/DAY [facility] Last Admin: 07/06/17 14:03 Dose: 120 ml Yvnij-1-Jghv Ethyl Esters (Lovaza) 1 gm PO DAILY [facility] Last Admin: 07/06/17 08:15 Dose: 1 gm Oxycodone HCl (Oxyir) 5 - 10 mg PO Q6H PRN PRN PRN Reason: PAIN Last Admin: 07/06/17 17:15 Dose: 10 mg Senna/Docusate Sodium (Senokot-S, Nora-Colace) 2 tablet PO BID [facility] Last Admin: 07/06/17 08:15 Dose: 2 tablet Assessment/Plan 1. Debility, status post recent surgery, status post laminectomy, on fentanyl patch, Oxy IR, gabapentin, pain management consulted, continue PT and OT evaluations and treatment 2. Osteoporosis, on calcium 3. Anemia, labs per inpatient rehab schedule 4. DVT prophylaxis with SCDs and EVAN blackmon Code Visit Inpatient E&M: 17767 Subs Hosp L2
--- NOTE | 2017-07-06 18:20 | NURSING ---
dr corbin into see pt
[2017-07-06 20:04] VITALS: BP 114/65; PULSE 86; RESP 16; TEMP 36.6; O2SAT 97
--- NOTE | 2017-07-07 01:20 | NURSING ---
PT RESTING IN BED AND FRESH ICE IS BEING PUT INTO [facility] WHICH SHE IS USING ON R KNEE. PT STATES SHE HAS BEEN DOZING OFF AND ON. PT IS CURRENTLY CALM AND RATES HER PAIN AT #7 TO R KNEE. WILL CONTINUE TO MONITOR.
[2017-07-07] MEDS: Acetaminophen 325 MG Tablet 650 MG PO ×3 (04:17→19:00)
[2017-07-07] MEDS: oxyCODONE 5 MG Tablet PO ×3 (05:40→18:59)
[2017-07-07] MEDS: Gabapentin 300 MG Capsule 600 MG PO ×2 (08:38→17:08)
[2017-07-07] MEDS: Multivitamins,Therapeutic Tablet 1 TABLET PO (08:38)
[2017-07-07] MEDS: Calcium (Elemental) 500 MG Tablet PO (08:38)
[2017-07-07] MEDS: Omega-3 Acid Ethyl Esters 1 GM Capsule PO (08:38)
[2017-07-07] MEDS: Senna/Docusate Sodium 1 Tablet 2 TABLET PO (08:38)
--- NOTE | 2017-07-07 08:45 | PCM.PN.NEU ---
Subjective: Patient seen, continues to have right leg pain Duplex of lower extremities was unremarkable, CT scan of Lumbar spine shows hardware is properly position, no spinal canal or neuroforaminal stenosis noted. Pain physician was consulted and increased her Neurontin to 600mg BID and Fentanyl patch to 37.0mcq/72. No issues with GI/. - Physical Exam General: Alert, Oriented x3, Cooperative HEENT: Atraumatic, PERRLA, EOMI, Normocephalic Neck: Supple, No JVD, Negative Carotid Bruits Lungs: Clear to auscultation, Normal air movement Cardiovascular: Regular rate, No murmurs Abdomen: Bowel Sounds Present, Soft, Non Tender Extremities: No edema, Capillary Refill Less than 3 Seconds Skin: No rashes, No breakdown Musculoskeletal: No Tenderness to Palpation of Joints or Extremities Neurological: Cranial nerves II-XII grossly intact Psych/Mental Status: Normal Affect, Appropriate Vital Signs Temp Pulse Resp BP Pulse Ox 98 F 86 16 114/65 97 07/06/17 20:04 07/06/17 20:04 07/06/17 20:04 07/06/17 20:04 07/06/17 20:04 Oxygen Delivery Method Room Air Weight: 54.2 kg Body Mass Index (BMI) 23.3 Intake and Output for Last 24 Hours 07/05/17 07/06/17 07/07/17 23:59 23:59 23:59 Intake Total 240 / 240 220 / 220 Balance 240 / 240 220 / 220 Active Medications Acetaminophen (Tylenol) 650 mg PO Q6H PRN PRN PRN Reason: Mild Pain (0-3/10)/Headache Last Admin: 07/07/17 04:17 Dose: 650 mg Bisacodyl (Dulcolax) 10 mg RECTAL .PRN X 1 PRN PRN Reason: Constipation Last Admin: 07/05/17 06:26 Dose: 10 mg Calcium Carbonate (Os-Sergio 500) [facility] Last Admin: 07/07/17 08:38 Dose: 500 mg Fentanyl (Duragesic) 25 mcg TRANSDERM. Q3D [facility] Last Admin: 07/05/17 11:18 Dose: 25 mcg Fentanyl (Duragesic) 12 mcg TRANSDERM. Q3D [facility] Last Admin: 07/06/17 20:10 Dose: 12 mcg Gabapentin (Neurontin) [facility] [address] [facility] Last Admin: 07/07/17 08:38 Dose: 600 mg Magnesium Hydroxide (Milk Of Magnesia) 30 ml PO .PRN X 1 PRN PRN Reason: Constipation Last Admin: 07/04/17 20:41 Dose: 30 ml Multivitamins (Multivitamin) 1 tablet PO DAILY@0800 [facility] Last Admin: 07/07/17 08:38 Dose: 1 tablet Non-Formulary Medication (Linaclotide) 72 mcg PO DAILY PRN PRN Reason: PAIN Nutritional Formula (Lactose Free) (Ensure Enlive) 120 ml PO 4X/DAY [facility] Last Admin: 07/07/17 08:38 Dose: 120 ml Frrvl-1-Jyjy Ethyl Esters (Lovaza) 1 gm PO DAILY [facility] Last Admin: 07/07/17 08:38 Dose: 1 gm Oxycodone HCl (Oxyir) 5 - 10 mg PO Q6H PRN PRN PRN Reason: PAIN Last Admin: 07/07/17 05:40 Dose: 10 mg Senna/Docusate Sodium (Senokot-S, Nora-Colace) 2 tablet PO BID [facility] Last Admin: 07/07/17 08:38 Dose: 2 tablet Assessment/Plan Debility s/p Laminectomy L2 - L3 with posterior fusion, Revision of lami L4 w/Locale bone grafting and allograft. goal of rehab is religion of functional independence. Plan: - Physical therapy for gait and balance - Occupational Therapy for ADLs - As needed analgesics - Bowel protocol - DVT prophylaxis: Ramiro Ho - Incision site C/D/I, => no redness or warmth noted around incision area. - AM Labs CBC, CMP, Mag, and Phos - Hx IBS => on Linzess at home - Duplex of bilateral lower extremity for possible DVT of right leg - CT scan of lumbar spine => shows hardware is properly position, s/p laminectomy of L2 -L3, does show degenerative disease but no lumbar spinal canal or neuroforaminal stenosis. - Pain management consulted increased Neurontin to 600mg BID, and Fentanyl patch to 37.0mcq/72.
--- NOTE | 2017-07-07 08:52 | PN.NEURO_ITS ---
Subjective: Patient seen, continues to have right leg pain Duplex of lower extremities was unremarkable, CT scan of Lumbar spine shows hardware is properly position, no spinal canal or neuroforaminal stenosis noted. Pain physician was consulted and increased her Neurontin to 600mg BID and Fentanyl patch to 37.0mcq/72. No issues with GI/. - Physical Exam General: Alert, Oriented x3, Cooperative HEENT: Atraumatic, PERRLA, EOMI, Normocephalic Neck: Supple, No JVD, Negative Carotid Bruits Lungs: Clear to auscultation, Normal air movement Cardiovascular: Regular rate, No murmurs Abdomen: Bowel Sounds Present, Soft, Non Tender Extremities: No edema, Capillary Refill Less than 3 Seconds Skin: No rashes, No breakdown Musculoskeletal: No Tenderness to Palpation of Joints or Extremities Neurological: Cranial nerves II-XII grossly intact Psych/Mental Status: Normal Affect, Appropriate Vital Signs Temp Pulse Resp BP Pulse Ox 98 F 86 16 114/65 97 07/06/17 20:04 07/06/17 20:04 07/06/17 20:04 07/06/17 20:04 07/06/17 20:04 Oxygen Delivery Method Room Air Weight: 54.2 kg Body Mass Index (BMI) 23.3 Intake and Output for Last 24 Hours 07/05/17 07/06/17 07/07/17 23:59 23:59 23:59 Intake Total 240 / 240 220 / 220 Balance 240 / 240 220 / 220 Active Medications Acetaminophen (Tylenol) 650 mg PO Q6H PRN PRN PRN Reason: Mild Pain (0-3/10)/Headache Last Admin: 07/07/17 04:17 Dose: 650 mg Bisacodyl (Dulcolax) 10 mg RECTAL .PRN X 1 PRN PRN Reason: Constipation Last Admin: 07/05/17 06:26 Dose: 10 mg Calcium Carbonate (Os-Sergio 500) [facility] Last Admin: 07/07/17 08:38 Dose: 500 mg Fentanyl (Duragesic) 25 mcg TRANSDERM. Q3D [facility] Last Admin: 07/05/17 11:18 Dose: 25 mcg Fentanyl (Duragesic) 12 mcg TRANSDERM. Q3D [facility] Last Admin: 07/06/17 20:10 Dose: 12 mcg Gabap[facility] ([facility]ontin) [facility] Last Admin: 07/07/17 08:38 Dose: 600 mg Magnesium Hydroxide (Milk Of Magnesia) 30 ml PO .PRN X 1 PRN PRN Reason: Constipation Last Admin: 07/04/17 20:41 Dose: 30 ml Multivitamins (Multivitamin) 1 tablet PO DAILY@0800 [facility] Last Admin: 07/07/17 08:38 Dose: 1 tablet Non-Formulary Medication (Linaclotide) 72 mcg PO DAILY PRN PRN Reason: PAIN Nutritional Formula (Lactose Free) (Ensure Enlive) 120 ml PO 4X/DAY [facility] Last Admin: 07/07/17 08:38 Dose: 120 ml Nzrzs-1-Dgzv Ethyl Esters (Lovaza) 1 gm PO DAILY [facility] Last Admin: 07/07/17 08:38 Dose: 1 gm Oxycodone HCl (Oxyir) 5 - 10 mg PO Q6H PRN PRN PRN Reason: PAIN Last Admin: 07/07/17 05:40 Dose: 10 mg Senna/Docusate Sodium (Senokot-S, Nora-Colace) 2 tablet PO BID [facility] Last Admin: 07/07/17 08:38 Dose: 2 tablet Assessment/Plan Debility s/p Laminectomy L2 - L3 with posterior fusion, Revision of lami L4 w/ Locale bone grafting and allograft. goal of rehab is yazidism of functional independence. Plan: - Physical therapy for gait and balance - Occupational Therapy for ADLs - As needed analgesics - Bowel protocol - DVT prophylaxis: Ramiro Ho - Incision site C/D/I, => no redness or warmth noted around incision area. - AM Labs CBC, CMP, Mag, and Phos - Hx IBS => on Linzess at home - Duplex of bilateral lower extremity for possible DVT of right leg - CT scan of lumbar spine => shows hardware is properly position, s/p laminectomy of L2 -L3, does show degenerative disease but no lumbar spinal canal or neuroforaminal stenosis. - Pain management consulted increased Neurontin to 600mg BID, and Fentanyl patch to 37.0mcq/72.
[2017-07-07 10:00] VITALS: BP 90/52; PULSE 86; RESP 16; TEMP 36.8; O2SAT 94
--- NOTE | 2017-07-07 16:00 | NURSING ---
PT HOME MED LINZESS SENT TO [facility] TO BE VERIFIED
--- NOTE | 2017-07-07 16:35 | CHAPLAIN ---
Type of Pastoral Visit _x__ Initial Visit ___ Follow-up Visit ___ On-call Visit ___ General Patient Visit ___ Spiritual Assessment ___ Family Conference ___ Bereavement ___ Rapid Response ___ Code Blue ___ Other (describe below) Pastoral Care Referral From _x__ Patient ___ Family ___ Nurse ___ Physician ___ Rigging Up Worker ___ Traffic Inspector ___ Other (describe below) Sacrament/Intervention _x__ Active listening ___ Anointing ___ Yarsanism ___ Bereavement ___ Communion ___ Ai exploration ___ _x__ Life review _x__ Prayer ___ Reconciliation ___ Sacrament of Sick _x__ Supportive presence ___ Wedding ___ Other (describe below) Pastoral Comments
[2017-07-07 21:40] VITALS: BP 108/67; PULSE 82; RESP 18; TEMP 36.8; O2SAT 97
[2017-07-08] MEDS: oxyCODONE 5 MG Tablet PO ×4 (01:30→23:34)
[2017-07-08] MEDS: Acetaminophen 325 MG Tablet 650 MG PO ×2 (02:49→14:30)
--- NOTE | 2017-07-08 06:48 | NURSING ---
pt assisted to the br to do adls and pt became tearful stating that she was in severe pain. pt was stated that she was very painful and nobody understood what marie of pain that she was having and that her son would be coming in to find out why. pt returned to bed and polar care applied to her rt knee and refused to place her rt briseida hose. pt completed minimal adls but did change her clothes with min assist. rn aware and updated
[2017-07-08 08:26] VITALS: BP 118/73; PULSE 96; RESP 16; TEMP 36.8; O2SAT 98
--- NOTE | 2017-07-08 08:47 | PCM.PN.NEU ---
Subjective: Patient seen and examined. Continues to have a lot of pain in her Right leg and lower back area. Both duplex study on her right leg and CT scan of her Lumbar spine was unremarkable. She is seen pain management, and he has adjusted her medications accordingly. She is tolerating therapy and is doing very well. Denies any shortness of breath or chest pains. No issues with GI/. - Physical Exam General: Alert, Oriented x3, Cooperative HEENT: Atraumatic, PERRLA, EOMI, Normocephalic Neck: Supple, No JVD, Negative Carotid Bruits Lungs: Clear to auscultation, Normal air movement Cardiovascular: Regular rate, No murmurs Abdomen: Bowel Sounds Present, Soft, Non Tender Extremities: No edema, Capillary Refill Less than 3 Seconds Skin: No rashes, No breakdown Musculoskeletal: No Tenderness to Palpation of Joints or Extremities Neurological: Cranial nerves II-XII grossly intact Psych/Mental Status: Normal Affect, Appropriate Vital Signs Temp Pulse Resp BP Pulse Ox 98.3 F 96 16 118/73 98 07/08/17 08:26 07/08/17 08:26 07/08/17 08:26 07/08/17 08:26 07/08/17 08:26 Oxygen Delivery Method Room Air Weight: 53.6 kg Body Mass Index (BMI) 23.3 Intake and Output for Last 24 Hours 07/06/17 07/07/17 07/08/17 23:59 23:59 23:59 Intake Total 220 / 220 120 / 120 Balance 220 / 220 120 / 120 Active Medications Acetaminophen (Tylenol) 650 mg PO Q6H PRN PRN PRN Reason: Mild Pain (0-3/10)/Headache Last Admin: 07/08/17 02:49 Dose: 650 mg Bisacodyl (Dulcolax) 10 mg RECTAL .PRN X 1 PRN PRN Reason: Constipation Last Admin: 07/05/17 06:26 Dose: 10 mg Calcium Carbonate (Os-Sergio 500) 500 mg PO DAILYCM [facility] Last Admin: 07/07/17 08:38 Dose: 500 mg Fentanyl (Duragesic) 25 mcg TRANSDERM. Q3D [facility] [place] Last Admin: 07/05/17 11:18 Dose: 25 mcg Fentanyl (Duragesic) 12 mcg TRANSDERM. Q3D [facility] [place] Last Admin: 07/06/17 20:10 Dose: 12 mcg Gabapentin (Neurontin) 600 mg PO BIDCM [facility] [place] Last Admin: 07/07/17 17:08 Dose: 600 mg Linaclotide (Linzess) 145 mcg PO DAILY PRN PRN Reason: PAIN Magnesium Hydroxide (Milk Of Magnesia) 30 ml PO .PRN X 1 PRN PRN Reason: Constipation Last Admin: 07/04/17 20:41 Dose: 30 ml Menthol (Bengay Vanishing Scent) 1 applic TOPICAL 4X/DAY PRN PRN PRN Reason: PAIN Last Admin: 07/08/17 02:38 Dose: 1 applic Multivitamins (Multivitamin) 1 tablet PO DAILY@0800 [facility] [place] Last Admin: 07/07/17 08:38 Dose: 1 tablet Nutritional Formula (Lactose Free) (Ensure Enlive) 120 ml PO 4X/DAY [facility] [place] Last Admin: 07/07/17 21:15 Dose: 120 ml [id number]-[id number] Ethyl Esters (Lovaza) 1 gm PO DAILY [facility] [place] Last Admin: 07/07/17 08:38 Dose: 1 gm Oxycodone HCl (Oxyir) 5 - 10 mg PO Q6H PRN PRN PRN Reason: PAIN Last Admin: 07/08/17 01:30 Dose: 10 mg Senna/Docusate Sodium (Senokot-S, Nora-Colace) 2 tablet PO BID [facility] [place] Last Admin: 07/07/17 21:16 Dose: Not Given Assessment/Plan Debility s/p Laminectomy L2 - L3 with posterior fusion, Revision of lami L4 w/Locale bone grafting and allograft. goal of rehab is restorationist of functional independence. Plan: - Physical therapy for gait and balance - Occupational Therapy for ADLs - As needed analgesics - Bowel protocol - DVT prophylaxis: Ramiro Ho - Incision site C/D/I, => no redness or warmth noted around incision area. - AM Labs CBC, CMP, Mag, and Phos - Hx IBS => on Linzess at home - Duplex of bilateral lower extremity for possible DVT of right leg - CT scan of lumbar spine => shows hardware is properly position, s/p laminectomy of L2 -L3, does show degenerative disease but no lumbar spinal canal or neuroforaminal stenosis. - Pain management consulted increased Neurontin to 600mg BID, and Fentanyl patch to 37.0mcq/72.
[2017-07-08] MEDS: Calcium (Elemental) 500 MG Tablet PO (08:48)
[2017-07-08] MEDS: Multivitamins,Therapeutic Tablet 1 TABLET PO (08:48)
[2017-07-08] MEDS: Omega-3 Acid Ethyl Esters 1 GM Capsule PO (08:48)
[2017-07-08] MEDS: Gabapentin 300 MG Capsule 600 MG PO ×2 (09:29→17:29)
--- NOTE | 2017-07-08 11:00 | NURSING ---
pt refused to have Duragesic patches replaced at this time. Old patches removed and disposed of. RN aware
[2017-07-08] MEDS: fentaNYL 25 MCG Patch TRANSDERM. (14:39)
--- NOTE | 2017-07-08 14:46 | NURSING ---
Pt requesting to have Duragesic patches applied at this time
[2017-07-08] MEDS: Senna/Docusate Sodium 1 Tablet 2 TABLET PO (20:25)
[2017-07-08 20:27] VITALS: BP 96/56; PULSE 79; RESP 14; TEMP 36.9; O2SAT 96
--- NOTE | 2017-07-09 03:30 | NURSING ---
Reviewed and agree with KARATE INSTRUCTOR documentation.
[2017-07-09] MEDS: oxyCODONE 5 MG Tablet PO ×3 (05:39→20:45)
[2017-07-09 07:55] VITALS: BP 96/57; PULSE 58; RESP 16; TEMP 37.1; O2SAT 99
[2017-07-09] MEDS: Calcium (Elemental) 500 MG Tablet PO (08:44)
[2017-07-09] MEDS: Gabapentin 300 MG Capsule 600 MG PO ×2 (08:44→17:18)
[2017-07-09] MEDS: Omega-3 Acid Ethyl Esters 1 GM Capsule PO (08:44)
[2017-07-09] MEDS: Multivitamins,Therapeutic Tablet 1 TABLET PO (08:44)
--- NOTE | 2017-07-09 09:35 | CASEMGMT ---
Team meeting held. Patient present as well as patient family. Patient requesting for discharge date to be set for 07/12/17. Patient plans to discharge home alone with home health services for physical and occupational therapy. Patient requesting for home health services to be set up through [facility] ([facility]). Patient son plans to provide transportation home for patient at time of discharge. Patient reporting to have all needed durable medical equipment already set up within the home. Support given. Proposed discharge date: 07/12/17 Will continue to follow for further discharge planning. PLAN: Discharge home alone with home health services. Nichole MORA, RECOVERY COORDINATOR
--- NOTE | 2017-07-09 11:44 | PCM.PN.NEU ---
Subjective: Staffed in team meeting. Son was at bedside. Questions answered. With Physical therapy, she is stand by assist for transfers, from the bed to the bedside recliner, bed mobility, and going from a sitting to a standing position. She is able to ambulate 600 feet with a walker at standby assist. She is able to go up and down 10 steps using two rails with a light hand for safety. Some concerns with safety as her right leg will occasionally buckle under her, it has improved since admission. With Occupational therapy she is standby assist for getting on and off the toilet. She does require cues to remind her of her back precautions. She is at set up for her upper body bathing and grooming, she is min assist with lower body, she requires assistance getting her underwear, socks and pants on. With nursing her pain is improving and she is doing better. She has a follow up appointment with her Surgeon's PA on Monday 07/10. Her incision looks good, no redness or swelling noted it is well approximated, C/D/I. She will be discharged on Thursday07/12/17 to home if she remains stable, and will be made MOD I on Thursday. - Physical Exam General: Alert, Oriented x3, Cooperative HEENT: Atraumatic, PERRLA, EOMI, Normocephalic Neck: Supple, No JVD, Negative Carotid Bruits Lungs: Clear to auscultation, Normal air movement Cardiovascular: Regular rate, No murmurs Abdomen: Bowel Sounds Present, Soft, Non Tender Extremities: No edema, Capillary Refill Less than 3 Seconds Skin: No rashes, No breakdown Musculoskeletal: No Tenderness to Palpation of Joints or Extremities Neurological: Cranial nerves II-XII grossly intact Psych/Mental Status: Normal Affect, Appropriate Vital Signs Temp Pulse Resp BP Pulse Ox 98.7 F 58 L 16 96/57 L 99 07/09/17 07:55 07/09/17 07:55 07/09/17 07:55 07/09/17 07:55 07/09/17 07:55 Oxygen Delivery Method Room Air Weight: 53.6 kg Body Mass Index (BMI) 23.3 Intake and Output for Last 24 Hours 07/07/17 07/08/17 07/09/17 23:59 23:59 23:59 Intake Total 120 / 120 120 / 120 240 / 240 Balance 120 / 120 120 / 120 240 / 240 Active Medications Acetaminophen (Tylenol) 650 mg PO Q6H PRN PRN PRN Reason: Mild Pain (0-3/10)/Headache Last Admin: 07/08/17 14:30 Dose: 650 mg Bisacodyl (Dulcolax) 10 mg RECTAL .PRN X 1 PRN PRN Reason: Constipation Last Admin: 07/05/17 06:26 Dose: 10 mg Calcium Carbon[facility] ([facility]Sergio 500) [facility] Admin: 07/09/17 08:44 Dose: 500 mg Fentanyl (Duragesic) 25 mcg TRANSDERM. Q3D [facility] Last Admin: 07/08/17 14:39 Dose: 25 mcg Fentanyl (Duragesic) 12 mcg TRANSDERM. Q3D [facility] Last Admin: 07/09/17 08:39 Dose: Not Given [facility]ap[facility]in) [facility] Last Admin: 07/09/17 08:44 Dose: 600 mg Linaclotide (Linzess) 145 mcg PO DAILY PRN PRN Reason: PAIN Magnesium Hydroxide (Milk Of Magnesia) 30 ml PO .PRN X 1 PRN PRN Reason: Constipation Last Admin: 07/04/17 20:41 Dose: 30 ml Menthol (Bengay Vanishing Scent) 1 applic TOPICAL 4X/DAY PRN PRN PRN Reason: PAIN Last Admin: 07/08/17 02:38 Dose: 1 applic Multivitamins (Multivitamin) 1 tablet PO DAILY@0800 [facility] Last Admin: 07/09/17 08:44 Dose: 1 tablet Nutritional Formula (Lactose Free) (Ensure Enlive) 120 ml PO 4X/DAY [facility] Last Admin: 07/09/17 08:44 Dose: 120 ml Imauz-0-Kjrj Ethyl Esters (Lovaza) 1 gm PO DAILY [facility] Last Admin: 07/09/17 08:44 Dose: 1 gm Oxycodone HCl (Oxyir) 5 - 10 mg PO Q6H PRN PRN PRN Reason: PAIN Last Admin: 07/09/17 05:39 Dose: 10 mg Senna/Docusate Sodium (Senokot-S, Nora-Colace) 2 tablet PO BID [facility] Last Admin: 07/09/17 08:44 Dose: Not Given Assessment/Plan Debility s/p Laminectomy L2 - L3 with posterior fusion, Revision of lami L4 w/Locale bone grafting and allograft. goal of rehab is lutheran of functional independence. Plan: - Physical therapy for gait and balance - Occupational Therapy for ADLs - As needed analgesics - Bowel protocol - DVT prophylaxis: Ramiro Ho - Incision site C/D/I, => no redness or warmth noted around incision area. - AM Labs CBC, CMP, Mag, and Phos - Hx IBS => on Linzess at home - Duplex of bilateral lower extremity for possible DVT of right leg - CT scan of lumbar spine => shows hardware is properly position, s/p laminectomy of L2 -L3, does show degenerative disease but no lumbar spinal canal or neuroforaminal stenosis. - Pain management consulted increased Neurontin to 600mg BID, and Fentanyl patch to 37.0mcq/72. - Follow up appointment with Surgeon on Thursday07/10/17 at 0800hrs. - Will be MOD I on Monday 07/10 - Discharge on Thursday07/12/17 home if she remains stable.
--- NOTE | 2017-07-09 11:54 | PN.NEURO_ITS ---
Subjective: Staffed in team meeting. Son was at bedside. Questions answered. With Physical therapy, she is stand by assist for transfers, from the bed to the bedside recliner, bed mobility, and going from a sitting to a standing position. She is able to ambulate 600 feet with a walker at standby assist. She is able to go up and down 10 steps using two rails with a light hand for safety. Some concerns with safety as her right leg will occasionally buckle under her, it has improved since admission. With Occupational therapy she is standby assist for getting on and off the toilet. She does require cues to remind her of her back precautions. She is at set up for her upper body bathing and grooming, she is min assist with lower body, she requires assistance getting her underwear, socks and pants on. With nursing her pain is improving and she is doing better. She has a follow up appointment with her Surgeon's PA on Monday 07/10. Her incision looks good, no redness or swelling noted it is well approximated, C/D/ I. She will be discharged on Thursday07/12/17 to home if she remains stable, and will be made MOD I on Thursday. - Physical Exam General: Alert, Oriented x3, Cooperative HEENT: Atraumatic, PERRLA, EOMI, Normocephalic Neck: Supple, No JVD, Negative Carotid Bruits Lungs: Clear to auscultation, Normal air movement Cardiovascular: Regular rate, No murmurs Abdomen: Bowel Sounds Present, Soft, Non Tender Extremities: No edema, Capillary Refill Less than 3 Seconds Skin: No rashes, No breakdown Musculoskeletal: No Tenderness to Palpation of Joints or Extremities Neurological: Cranial nerves II-XII grossly intact Psych/Mental Status: Normal Affect, Appropriate Vital Signs Temp Pulse Resp BP Pulse Ox 98.7 F 58 L 16 96/57 L 99 07/09/17 07:55 07/09/17 07:55 07/09/17 07:55 07/09/17 07:55 07/09/17 07:55 Oxygen Delivery Method Room Air Weight: 53.6 kg Body Mass Index (BMI) 23.3 Intake and Output for Last 24 Hours 07/07/17 07/08/17 07/09/17 23:59 23:59 23:59 Intake Total 120 / 120 120 / 120 240 / 240 Balance 120 / 120 120 / 120 240 / 240 Active Medications Acetaminophen (Tylenol) 650 mg PO Q6H PRN PRN PRN Reason: Mild Pain (0-3/10)/Headache Last Admin: 07/08/17 14:30 Dose: 650 mg Bisacodyl (Dulcolax) 10 mg RECTAL .PRN X 1 PRN PRN Reason: Constipation Last Admin: 07/05/17 06:26 Dose: 10 mg Calcium Carbon[facility] ([facility]Sergio 500) [facility] Admin: 07/09/17 08:44 Dose: 500 mg Fentanyl (Duragesic) 25 mcg TRANSDERM. Q3D [facility] Last Admin: 07/08/17 14:39 Dose: 25 mcg Fentanyl (Duragesic) 12 mcg TRANSDERM. Q3D [facility] Last Admin: 07/09/17 08:39 Dose: Not Given [facility] ([facility]in) [facility] Last Admin: 07/09/17 08:44 Dose: 600 mg Linaclotide (Linzess) 145 mcg PO DAILY PRN PRN Reason: PAIN Magnesium Hydroxide (Milk Of Magnesia) 30 ml PO .PRN X 1 PRN PRN Reason: Constipation Last Admin: 07/04/17 20:41 Dose: 30 ml Menthol (Bengay Vanishing Scent) 1 applic TOPICAL 4X/DAY PRN PRN PRN Reason: PAIN Last Admin: 07/08/17 02:38 Dose: 1 applic Multivitamins (Multivitamin) 1 tablet PO DAILY@0800 [facility] Last Admin: 07/09/17 08:44 Dose: 1 tablet Nutritional Formula (Lactose Free) (Ensure Enlive) 120 ml PO 4X/DAY [facility] Last Admin: 07/09/17 08:44 Dose: 120 ml Puqpv-2-Ptfp Ethyl Esters (Lovaza) 1 gm PO DAILY [facility] Last Admin: 07/09/17 08:44 Dose: 1 gm Oxycodone HCl (Oxyir) 5 - 10 mg PO Q6H PRN PRN PRN Reason: PAIN Last Admin: 07/09/17 05:39 Dose: 10 mg Senna/Docusate Sodium (Senokot-S, Nora-Colace) 2 tablet PO BID [facility] Last Admin: 07/09/17 08:44 Dose: Not Given Assessment/Plan Debility s/p Laminectomy L2 - L3 with posterior fusion, Revision of lami L4 w/ Locale bone grafting and allograft. goal of rehab is latter-day of functional independence. Plan: - Physical therapy for gait and balance - Occupational Therapy for ADLs - As needed analgesics - Bowel protocol - DVT prophylaxis: Ramiro Ho - Incision site C/D/I, => no redness or warmth noted around incision area. - AM Labs CBC, CMP, Mag, and Phos - Hx IBS => on Linzess at home - Duplex of bilateral lower extremity for possible DVT of right leg - CT scan of lumbar spine => shows hardware is properly position, s/p laminectomy of L2 -L3, does show degenerative disease but no lumbar spinal canal or neuroforaminal stenosis. - Pain management consulted increased Neurontin to 600mg BID, and Fentanyl patch to 37.0mcq/72. - Follow up appointment with Surgeon on Thursday07/10/17 at 0800hrs. - Will be MOD I on Monday 07/10 - Discharge on Thursday07/12/17 home if she remains stable.
[2017-07-09 20:50] VITALS: BP 100/68; PULSE 82; RESP 16; TEMP 37.3; O2SAT 95
[2017-07-10] MEDS: Acetaminophen 325 MG Tablet 650 MG PO ×2 (01:30→10:43)
--- NOTE | 2017-07-10 01:33 | NURSING ---
Reviewed and agree with NATURAL RESOURCE OFFICER documentation and [facility] charting
[2017-07-10] MEDS: oxyCODONE 5 MG Tablet PO ×3 (04:49→20:57)
[2017-07-10] MEDS: Calcium (Elemental) 500 MG Tablet PO (05:00)
[2017-07-10] MEDS: Multivitamins,Therapeutic Tablet 1 TABLET PO (05:00)
[2017-07-10] MEDS: Gabapentin 300 MG Capsule 600 MG PO ×2 (05:00→16:37)
[2017-07-10] MEDS: Omega-3 Acid Ethyl Esters 1 GM Capsule PO (05:00)
[2017-07-10 10:00] VITALS: BP 110/60; PULSE 80; RESP 17; TEMP 36.8; O2SAT 96
--- NOTE | 2017-07-10 12:55 | CASEMGMT ---
Social Work Speaking with patient in room to confirm all discharge planning. Patient now declining home health services and reporting to be planning to discharge home with son, where patient son will provide 24hr care for patient. Patient reporting that patient son will provide transportation for patient at time of discharge. Patient identifying no further needs. Support given. Proposed discharge date: 07/12/17 PLAN: Discharge to son's home. - No home health per patient choice. Nichole MORA, CORPORATE SALES REPRESENTATIVE
--- NOTE | 2017-07-10 14:57 | PCM.RU.DC ---
Rehab Discharge Summary DATE OF ADMISSION: 07/03/17 DATE OF DISCHARGE: 07/12/2017 - Rehab Diagnosis Laminectomy Discharge Diet: No Restrictions Discharge Activity: May Not Drive - Until cleared by Neurosurgeon, May not drive while taking narcotic pain medications., May Shower, Use Walker, - - Do not soak in a Tub bath until cleared by Surgeon Weight Bearing Status: Weight bearing as tolerated Call your doctor if your incision/area has: Increased Pain/ Swelling, Increased Redness, Foul Smelling Discharge, Swelling at the incision site Call your doctor if you observe: Fever of 101 or Higher, Coldness, Increased Pain, Numbness or Tingling, Change in Color, Inability to urinate, Inability to have a bowel movement, Using more than one pad per hour, Shortness of breath, Dizziness, Fainting spells, Swelling in the ankles, Chest pain, Prolonged hiccoughing, Increased palpitations (irregular heartbeat), Calf discomfort, Uncontrolled pain Home Medications: Medications to take at Discharge Calcium Carbonate [Calcium] 600 mg PO DAILY 07/03/17 Linaclotide [Linzess] 72 mcg PO DAILY PRN 07/03/17 Multivitamin [Daily Multiple Vitamin] 1 each PO DAILY 07/03/17 [place]-3 Fatty Acids/Fish Oil [Fish Oil 1,000 mg Capsule] 1 each PO DAILY 07/03/17 Acetaminophen [Tylenol Tablet] 650 mg PO Q6H PRN PRN tablet 07/10/17 Gabapentin [Neurontin] 600 mg PO BIDCM #60 cap 07/10/17 Menthol [Bengay Vanishing Scent] 1 applic TOPICAL 4X/DAY PRN PRN tube 07/10/17 Oxycodone [Oxyir] 5 - 10 mg PO Q6H PRN PRN 7 Days #36 tab 07/10/17 Following Prescrptions Were Given to Patient: Oxycodone [Oxyir] 5 - 10 mg PO Q6H PRN PRN 7 Days #36 tab PRN Reason: Pain Gabapentin [Neurontin] 600 mg PO BIDCM #60 cap Primary Care Physician: Luis Alberto Galindo MD [Primary Care Provider] - Please Follow Up With: Dr Luis Alberto Galindo-PCP When: Thursday Please Follow Up With: Dr Christianson Disposition: Home Minutes spent on discharge:: 40 Patient Condition:: Good Rehab Course The patient is a 66 year old old right-handed female who was admitted to the rehab unit for rehabilitation after surgery for Laminectomy L2 - L3, Posterior fusion, with revision Lami L4 w/amye bone grafting allograft by on 07/01 surgery was without complications. She has a back brace LSO that she must wear when up walking around, will have daily dressing changes, the incision site is C/D/I, wound is well approximated, with no drainage noted no redness or warmth no tenderness on palpation. She has a past history of Fibromyalgia, Osteoporosis, Spinal stenosis, and anemia. She lives alone in a one story home with no steps to get into the home. she is previously completely functionally independent and is admitted to the rehab unit in order to restore her previous level of functional independence. With Physical therapy, she is stand by assist for transfers, from the bed to the bedside recliner, bed mobility, and going from a sitting to a standing position. She is able to ambulate 600 feet with a walker at standby assist. She is able to go up and down 10 steps using two rails with a light hand for safety. Some concerns with safety as her right leg will occasionally buckle under her, it has improved since admission. With Occupational therapy she is standby assist for getting on and off the toilet. She does require cues to remind her of her back precautions. She is at set up for her upper body bathing and grooming, she is min assist with lower body, she requires assistance getting her underwear, socks and pants on. With nursing her pain is improving and she is doing better. She has a follow up appointment with her Surgeon's PA on Monday 07/10. Her incision continue to look good it is well healed, no warmth, tenderness, or swelling noted on palpation. She will be discharged on Thursday07/12/17 to home if she remains stable, and will be made MOD I on Thursday. Meaningful Use Info Meaningful Use Diagnoses (Choose all that apply): None applicable
--- NOTE | 2017-07-10 15:03 | PCM.DC ---
- Discharge Diagnoses Reason(s) for Visit for Discharge Instructions: Laminectomy You will use the following diet at home:: No restrictions, Regular Your food should be the consistency of: Regular Your liquids should be the consistency of: Regular/Thin Discharge Activity: May Not Drive - Until cleared by Neurosurgeon, May not drive while taking narcotic pain medications., May Shower, Use Walker, - - Do not soak in a Tub bath until cleared by Surgeon Weight Bearing Status: Weight bearing as tolerated Call your doctor if your incision/area has: Increased Pain/ Swelling, Increased Redness, Foul Smelling Discharge, Swelling at the incision site Call your doctor if you observe: Fever of 101 or Higher, Coldness, Increased Pain, Numbness or Tingling, Change in Color, Inability to urinate, Inability to have a bowel movement, Using more than one pad per hour, Shortness of breath, Dizziness, Fainting spells, Swelling in the ankles, Chest pain, Prolonged hiccoughing, Increased palpitations (irregular heartbeat), Calf discomfort, Uncontrolled pain Allergies/Adverse Reactions: Allergies No Known Allergies Allergy (Verified 04/14/17 16:00) Medications to take at Discharge Calcium Carbonate [Calcium] 600 mg PO DAILY 07/03/17 Linaclotide [Linzess] 72 mcg PO DAILY PRN 07/03/17 Multivitamin [Daily Multiple Vitamin] 1 each PO DAILY 07/03/17 [place]-3 Fatty Acids/Fish Oil [Fish Oil 1,000 mg Capsule] 1 each PO DAILY 07/03/17 Acetaminophen [Tylenol Tablet] 650 mg PO Q6H PRN PRN tablet 07/10/17 Gabapentin [Neurontin] 600 mg PO BIDCM #60 cap 07/10/17 Menthol [Bengay Vanishing Scent] 1 applic TOPICAL 4X/DAY PRN PRN tube 07/10/17 Oxycodone [Oxyir] 5 - 10 mg PO Q6H PRN PRN 7 Days #36 tab 07/10/17 The following prescriptions were given: Oxycodone [Oxyir] 5 - 10 mg PO Q6H PRN PRN 7 Days #36 tab PRN Reason: Pain Gabapentin [Neurontin] 600 mg PO BIDCM #60 cap Primary Care Physician: Luis Alberto Galindo MD [Primary Care Provider] - Please Follow Up With: Dr Luis Alberto Galindo-PCP When: Thursday Please Follow Up With: Dr Christianson Proposed Discharge Date: 07/12/17
[2017-07-10 20:52] VITALS: BP 96/56; PULSE 84; RESP 17; TEMP 36.7; O2SAT 97
[2017-07-10] MEDS: LINACLOTIDE 145 MCG CAPSULE PO (20:56)
[2017-07-11] MEDS: oxyCODONE 5 MG Tablet PO ×3 (03:24→21:57)
[2017-07-11] MEDS: Senna/Docusate Sodium 1 Tablet 2 TABLET PO ×2 (07:52→21:58)
[2017-07-11] MEDS: Calcium (Elemental) 500 MG Tablet PO (07:53)
[2017-07-11] MEDS: Omega-3 Acid Ethyl Esters 1 GM Capsule PO (07:53)
[2017-07-11] MEDS: Multivitamins,Therapeutic Tablet 1 TABLET PO (07:53)
[2017-07-11] MEDS: LINACLOTIDE 145 MCG CAPSULE PO (07:53)
[2017-07-11] MEDS: Gabapentin 300 MG Capsule 600 MG PO ×2 (07:53→17:26)
[2017-07-11 09:08] VITALS: BP 96/56; PULSE 94; RESP 18; TEMP 37.1; O2SAT 99
[2017-07-11] MEDS: fentaNYL 25 MCG Patch TRANSDERM. (11:35)
--- NOTE | 2017-07-11 15:00 | NURSING ---
Addendum entered by Maren Pearson 07/11/17 16:34: 12mcg Original Note: per pt request duragesic patch 12mg removed. per pt she states i want to wean off. clemente art made aware. patch removed and flushed and witnessed per clemente art.
--- NOTE | 2017-07-11 15:13 | PCM.PN.HOSP ---
Subjective: Patient had lumbar spinal laminectomy surgery. Patient is due for discharge tomorrow. Denies any back pain. She is doing well with physical therapy and she said she can walk independently although she is walking with walker during rehab. Vitals/I&O's: Vital Signs Temp Pulse Resp BP Pulse Ox 98.8 F 94 18 96/56 L 99 07/11/17 09:08 07/11/17 09:08 07/11/17 09:08 07/11/17 09:08 07/11/17 09:08 Oxygen Delivery Method Room Air Weight: 118 lb 2.684 oz Body Mass Index (BMI) 23.3 Intake and Output for Last 24 Hours 07/09/17 07/10/17 07/11/17 23:59 23:59 23:59 Intake Total 600 / 600 480 / 480 240 / 240 Balance 600 / 600 480 / 480 240 / 240 General: Alert, Oriented x3, Cooperative HEENT: Atraumatic, PERRLA, EOMI, Normocephalic Neck: Supple, No JVD, Negative Carotid Bruits, - - Cervical spine surgery 2 times status post plate Lungs: Clear to auscultation, Normal air movement, No rhonchi, No wheeze, No rales Cardiovascular: Regular rate, No murmurs Abdomen: Bowel Sounds Present, Soft, Non Tender, Non-Distended Extremities: No edema, Capillary Refill Less than 3 Seconds Skin: No rashes, No breakdown Musculoskeletal: No Tenderness to Palpation of Joints or Extremities, Arthritic Changes, - - No lumbar spinal/paraspinal muscle tenderness. Berta intact. Neurological: Cranial nerves II-XII grossly intact Psych/Mental Status: Normal Affect, Appropriate Current Medications Acetaminophen (Tylenol) 650 mg PO Q6H PRN PRN PRN Reason: Mild Pain (0-3/10)/Headache Last Admin: 07/10/17 10:43 Dose: 650 mg Bisacodyl (Dulcolax) 10 mg RECTAL .PRN X 1 PRN PRN Reason: Constipation Last Admin: 07/05/17 06:26 Dose: 10 mg Calcium Carbonate (Os-Sergio 500) 500 mg PO DAILYCM [facility] Last Admin: 07/11/17 07:53 Dose: 500 mg Fentanyl (Duragesic) 25 mcg TRANSDERM. Q3D [facility] Last Admin: 07/11/17 11:35 Dose: 25 mcg Fentanyl (Duragesic) 12 mcg TRANSDERM. Q3D [facility] Last Admin: 07/09/17 08:39 Dose: Not Given Gabapentin (Neurontin) 600 mg PO BIDCM [facility] Last Admin: 07/11/17 07:53 Dose: 600 mg Linaclotide (Linzess) 145 mcg PO DAILY PRN PRN Reason: PAIN Last Admin: 07/11/17 07:53 Dose: 145 mcg Magnesium Hydroxide (Milk Of Magnesia) 30 ml PO .PRN X 1 PRN PRN Reason: Constipation Last Admin: 07/04/17 20:41 Dose: 30 ml Menthol (Bengay Vanishing Scent) 1 applic TOPICAL 4X/DAY PRN PRN PRN Reason: PAIN Last Admin: 07/10/17 01:31 Dose: 1 applic Multivitamins (Multivitamin) 1 tablet PO DAILY@0800 [facility] Last Admin: 07/11/17 07:53 Dose: 1 tablet Sxkuf-7-Abxe Ethyl Esters (Lovaza) 1 gm PO DAILY [facility] Last Admin: 07/11/17 07:53 Dose: 1 gm Oxycodone HCl (Oxyir) 5 - 10 mg PO Q6H PRN PRN PRN Reason: PAIN Last Admin: 07/11/17 10:55 Dose: 10 mg Senna/Docusate Sodium (Senokot-S, Nora-Colace) 2 tablet PO BID [facility] Last Admin: 07/11/17 07:52 Dose: 1 tablet Assessment/Plan 1. Lumbar spinal stenosis and debility status post L2-L3 laminectomy with posterior fusion. on fentanyl patch, Oxy IR, gabapentin, pain management consulted, continue PT and OT evaluations and treatment. Patient is supposed to be discharged tomorrow and has follow-up with Dr. Abad chemistry research assistant on next Thursday for staple removal. Denies any cardiac or pulmonary chronic disease. 2. Osteoporosis, on calcium 3. Anemia, labs per inpatient rehab schedule 4. DVT prophylaxis with SCDs and EVAN blackmon Code Visit Inpatient E&M: 79557 Subs Hosp L2
--- NOTE | 2017-07-11 15:19 | PN_ITS ---
Subjective: Patient had lumbar spinal laminectomy surgery. Patient is due for discharge tomorrow. Denies any back pain. She is doing well with physical therapy and she said she can walk independently although she is walking with walker during rehab. Vitals/I&O's: Vital Signs Temp Pulse Resp BP Pulse Ox 98.8 F 94 18 96/56 L 99 07/11/17 09:08 07/11/17 09:08 07/11/17 09:08 07/11/17 09:08 07/11/17 09:08 Oxygen Delivery Method Room Air Weight: 118 lb 2.684 oz Body Mass Index (BMI) 23.3 Intake and Output for Last 24 Hours 07/09/17 07/10/17 07/11/17 23:59 23:59 23:59 Intake Total 600 / 600 480 / 480 240 / 240 Balance 600 / 600 480 / 480 240 / 240 General: Alert, Oriented x3, Cooperative HEENT: Atraumatic, PERRLA, EOMI, Normocephalic Neck: Supple, No JVD, Negative Carotid Bruits, - - Cervical spine surgery 2 times status post plate Lungs: Clear to auscultation, Normal air movement, No rhonchi, No wheeze, No rales Cardiovascular: Regular rate, No murmurs Abdomen: Bowel Sounds Present, Soft, Non Tender, Non-Distended Extremities: No edema, Capillary Refill Less than 3 Seconds Skin: No rashes, No breakdown Musculoskeletal: No Tenderness to Palpation of Joints or Extremities, Arthritic Changes, - - No lumbar spinal/paraspinal muscle tenderness. Berta intact. Neurological: Cranial nerves II-XII grossly intact Psych/Mental Status: Normal Affect, Appropriate Current Medications Acetaminophen (Tylenol) 650 mg PO Q6H PRN PRN PRN Reason: Mild Pain (0-3/10)/Headache Last Admin: 07/10/17 10:43 Dose: 650 mg Bisacodyl (Dulcolax) 10 mg RECTAL .PRN X 1 PRN PRN Reason: Constipation Last Admin: 07/05/17 06:26 Dose: 10 mg Calcium Carbonate (Os-Sergio 500) 500 mg PO DAILYCM [facility] Last Admin: 07/11/17 07:53 Dose: 500 mg Fentanyl (Duragesic) 25 mcg TRANSDERM. Q3D [facility] Last Admin: 07/11/17 11:35 Dose: 25 mcg Fentanyl (Duragesic) 12 mcg TRANSDERM. Q3D [facility] Last Admin: 07/09/17 08:39 Dose: Not Given Gabapentin (Neurontin) 600 mg PO BIDCM [facility] Last Admin: 07/11/17 07:53 Dose: 600 mg Linaclotide (Linzess) 145 mcg PO DAILY PRN PRN Reason: PAIN Last Admin: 07/11/17 07:53 Dose: 145 mcg Magnesium Hydroxide (Milk Of Magnesia) 30 ml PO .PRN X 1 PRN PRN Reason: Constipation Last Admin: 07/04/17 20:41 Dose: 30 ml Menthol (Bengay Vanishing Scent) 1 applic TOPICAL 4X/DAY PRN PRN PRN Reason: PAIN Last Admin: 07/10/17 01:31 Dose: 1 applic Multivitamins (Multivitamin) 1 tablet PO DAILY@0800 [facility] Last Admin: 07/11/17 07:53 Dose: 1 tablet Lntms-0-Aows Ethyl Esters (Lovaza) 1 gm PO DAILY [facility] Last Admin: 07/11/17 07:53 Dose: 1 gm Oxycodone HCl (Oxyir) 5 - 10 mg PO Q6H PRN PRN PRN Reason: PAIN Last Admin: 07/11/17 10:55 Dose: 10 mg Senna/Docusate Sodium (Senokot-S, Nora-Colace) 2 tablet PO BID [facility] Last Admin: 07/11/17 07:52 Dose: 1 tablet Assessment/Plan 1. Lumbar spinal stenosis and debility status post L2-L3 laminectomy with posterior fusion. on fentanyl patch, Oxy IR, gabapentin, pain management consulted, continue PT and OT evaluations and treatment. Patient is supposed to be discharged tomorrow and has follow-up with Dr. Abad lead recreation assistant on next Thursday for staple removal. Denies any cardiac or pulmonary chronic disease. 2. Osteoporosis, on calcium 3. Anemia, labs per inpatient rehab schedule 4. DVT prophylaxis with SCDs and EVAN blackmon Code Visit Inpatient E&M: 98186 Subs Hosp L2
[2017-07-11] MEDS: Mag Hydrox/Al Hydrox/Simeth 30 ML UDC PO (18:02)
[2017-07-11 19:38] VITALS: BP 95/59; PULSE 81; RESP 16; TEMP 37; O2SAT 95
--- NOTE | 2017-07-12 03:09 | NURSING ---
REVIEWED AND AGREE WITH [employer].
[2017-07-12] MEDS: Acetaminophen 325 MG Tablet 650 MG PO (03:26)
[2017-07-12] MEDS: oxyCODONE 5 MG Tablet PO (06:05)
[2017-07-12] MEDS: Multivitamins,Therapeutic Tablet 1 TABLET PO (08:05)
[2017-07-12] MEDS: Omega-3 Acid Ethyl Esters 1 GM Capsule PO (08:05)
[2017-07-12] MEDS: Calcium (Elemental) 500 MG Tablet PO (08:05)
[2017-07-12] MEDS: Gabapentin 300 MG Capsule 600 MG PO (08:05)
--- NOTE | 2017-07-12 09:09 | PN_ITS ---
Subjective: Follow-up on back pain. Patient was seen and examined, will be discharged home today, pain is better controlled with increasing gabapentin. She is supposed to be on 35 mcg of fentanyl but has been using only 25. She would not be discharged home on fentanyl. She will follow up with Dr. Christianson in the outpatient. She looks very excited to go home, denies any fever or chills or chest pain or worsening pain. She will continue with the exercises on discharge. Objective: Physical exam: General: Alert, Oriented x3, Cooperative, No apparent distress HEENT: Atraumatic, PERRLA, EOMI, Normocephalic Oral: Moist Mucosa Neck: Supple Lungs: Clear to auscultation, Normal air movement Cardiovascular: Regular rate, Regular Rhythm, Normal S1, Normal S2, No murmurs Abdomen: Bowel Sounds Present, Soft, Non Tender, Non-Distended, No Hepato- splenomegaly Extremities: No edema Skin: No rashes Musculoskeletal: Tenderness - over the low back, lumbar brace in place. Neurological: Cranial nerves II-XII grossly intact Psych/Mental Status: Normal Affect, Appropriate Vitals/I&O's: Vital Signs Temp Pulse Resp BP Pulse Ox 98.6 F 81 16 95/59 L 95 07/11/17 19:38 07/11/17 19:38 07/11/17 19:38 07/11/17 19:38 07/11/17 19:38 Oxygen Delivery Method Room Air Weight: 53.6 kg Body Mass Index (BMI) 23.3 Intake and Output for Last 24 Hours 07/10/17 07/11/17 07/13/17 23:59 23:59 00:59 Intake Total 480 / 480 360 / 360 Balance 480 / 480 360 / 360 Current Medications Acetaminophen (Tylenol) 650 mg PO Q6H PRN PRN PRN Reason: Mild Pain (0-3/10)/Headache Last Admin: 07/12/17 03:26 Dose: 650 mg Al Hydroxide/Mg Hydroxide (Mylanta Ii) 30 ml PO Q4H PRN PRN PRN Reason: HEARTBURN Last Admin: 07/11/17 18:02 Dose: 30 ml Bisacodyl (Dulcolax) 10 mg RECTAL .PRN X 1 PRN PRN Reason: Constipation Last Admin: 07/05/17 06:26 Dose: 10 mg Calcium Carbonate (Os-Sergio 500) 500 mg PO DAILYCM [facility] Last Admin: 07/12/17 08:05 Dose: 500 mg Fentanyl (Duragesic) 25 mcg TRANSDERM. Q3D [facility] Last Admin: 07/11/17 11:35 Dose: 25 mcg Fentanyl (Duragesic) 12 mcg TRANSDERM. Q3D [facility] Last Admin: 07/11/17 19:19 Dose: Not Given [facility] Last Admin: 07/12/17 08:05 Dose: 600 mg Linaclotide (Linzess) 145 mcg PO DAILY PRN PRN Reason: PAIN Last Admin: 07/11/17 07:53 Dose: 145 mcg Magnesium Hydroxide (Milk Of Magnesia) 30 ml PO .PRN X 1 PRN PRN Reason: Constipation Last Admin: 07/04/17 20:41 Dose: 30 ml Menthol (Bengay Vanishing Scent) 1 applic TOPICAL 4X/DAY PRN PRN PRN Reason: PAIN Last Admin: 07/12/17 03:26 Dose: 1 applic Multivitamins (Multivitamin) 1 tablet PO DAILY@0800 [facility] Last Admin: 07/12/17 08:05 Dose: 1 tablet Spyyk-5-Xxeo Ethyl Esters (Lovaza) 1 gm PO DAILY [facility] Last Admin: 07/12/17 08:05 Dose: 1 gm Oxycodone HCl (Oxyir) 5 - 10 mg PO Q6H PRN PRN PRN Reason: PAIN Last Admin: 07/12/17 06:05 Dose: 10 mg Senna/Docusate Sodium (Senokot-S, Nora-Colace) 2 tablet PO BID [facility] Last Admin: 07/12/17 08:02 Dose: Not Given Assessment/Plan 1. Debility, status post recent surgery, status post laminectomy, improved. Pain is controlled on current regimen. 2. Osteoporosis, on calcium 3. Anemia, Hb not repeated in this admission, patient is stable, needs to be followed up in the outpatient. 4. DVT prophylaxis with SCDs and EVAN blackmon Code Visit Inpatient E&M: 02470 Subs Hosp L2
[2017-07-12 09:27] VITALS: BP 111/62; PULSE 61; RESP 16; TEMP 37; O2SAT 100
--- NOTE | 2017-07-12 10:30 | NURSING ---
Went over DC instructions, medications, and appts with pt. Pt. denied questions, verbalized understanding of questions. DC home with son pt had all personal belongings in hand.
[2017-07-12 16:00] VITALS: BP 111/62; PULSE 61; RESP 16; TEMP 37; O2SAT 100
== END 2017-07-12 12:00 | disposition home or self-care (01) | DRG 561 ==
PROVIDERS: Nurse Practitioner Acute Care; Admitting Provider Psychiatry & Neurology Neurology; Family Provider Family Medicine; PCP Family Medicine; Visit Provider Internal Medicine
DX: Z47.89 Encounter for other orthopedic aftercare (principal); D64.9 Anemia, unspecified; K58.1 Irritable bowel syndrome with constipation; M48.061 Spinal stenosis, lumbar region without neurogenic claudication; M79.7 Fibromyalgia; M81.0 Age-related osteoporosis without current pathological fracture; Z98.1 Arthrodesis status; Z87.891 Personal history of nicotine dependence; Z79.899 Other long term (current) drug therapy; M79.604 Pain in right leg; M19.90 Unspecified osteoarthritis, unspecified site
CPT/HCPCS: 72131; 80053; 83735; 84100; 85027; 93970; 97110; 97116; 97162; 97166; 97530; 97535; 97802

== ENCOUNTER → 2017-08-17 12:05 | Outpatient (CLI) | payer MEDICARE, OTHER, SELFPAY ==
[2017-08-17 13:15] LABS: Amphetamine Urine VISTA NEGATIVE (<1000 ng/mL); Barbiturate Urine VISTA NEGATIVE (< 200 ng/mL); Benzodiazepine Urine VISTA NEGATIVE (< 200 ng/mL); Cocaine Urine VISTA NEGATIVE (< 300 ng/mL); Ecstacy Urine VISTA NEGATIVE (< 500 ng/mL); Methadone Urine VISTA NEGATIVE (< 300 ng/mL); PCP Urine VISTA NEGATIVE (< 25 ng/mL); THC Urine VISTA NEGATIVE (< 50 ng/mL); Vista UDS pH Range 7
== END ==
PROVIDERS: Family Provider Family Medicine; PCP Family Medicine; Visit Provider Anesthesiology Pain Medicine
DX: F11.20 Opioid dependence, uncomplicated (principal)
CPT/HCPCS: 80307

== ENCOUNTER → 2017-11-17 15:47 | Outpatient (CLI) | payer MEDICARE, OTHER, SELFPAY ==
[2017-11-17 18:06] LABS: Absolute Lymphocyte Count 2.77 X10^3/ul (0.83-4.51); Absolute Neutrophil Count 3.7 X10^3/uL (2.0-7.7); Basophil# 0.03 X10^3/uL; Basophil% 0.4 % (0-1); Eosinophil# 0.09 X10^3/uL; Eosinophils% 1.3 % (0-5); Hematocrit 34.3 % (37-47); Hemoglobin 11.6 g/dl (12.0-15.0); Lymphocyte # 2.77 X10^3/ul (4.0); Lymphocyte % 39.7 % (19-41); Mean Corp Hgb Conc 33.8 g/gl (32-36); Mean Corpuscular Volume 94.8 fL (81-99); Mean Platelet Vol. 10.7 fl (6.2-12.0); Monocyte% 5.7 % (0-10); Neutrophil # 3.68 X10^3/uL (2.7-7.7); Neutrophil % 52.8 % (47-70); Platelet Count 264 K/mm3 (150-450); RBC Distribution Width CV 13.5 % (11.6-14.6); RBC Distribution Width SD 44.8 fl (35.1-43.9); Red Blood Count 3.62 M/mm3 (4.2-5.4)
[2017-11-17 18:20] LABS: POSITIVE COUNT NO; POSITIVE DIFFERENTIAL NO; POSITIVE MORPHOLOGY NO
[2017-11-17 18:59] LABS: Thyroid Stim Hormone (TSH) 3.27 uIU/mL (0.358-3.74)
[2017-11-18 08:59] LABS: Vitamin D,25 Hydroxy 23.3 ng/mL (29.95-100.01)
== END ==
PROVIDERS: Family Provider Family Medicine; PCP Family Medicine; Visit Provider Family Medicine
DX: D64.9 Anemia, unspecified (principal); M81.0 Age-related osteoporosis without current pathological fracture
CPT/HCPCS: 36415; 82306; 84443; 85025

== ENCOUNTER → 2017-12-03 08:40 | Outpatient (CLI) | payer MEDICARE, OTHER, SELFPAY ==
--- NOTE | 2017-12-03 08:48 | BD_ITS ---
STUDY: DUAL ENERGY X-RAY ABSORPTIOMETRY / DXA REASON FOR EXAM: Female, 67 years old. Early menopause. Loss of height. TECHNIQUE: Bone Mineral Density (BMD) measurements of lumbar spine and bilateral hips were obtained. COMPARISON: None. FINDINGS: Lumbar Spine (L1-L4): g/cm2 (0.532) / T-score (-5.6) / Z-score (-3.9) Findings are suggestive of osteoporosis with a high fracture risk. Left Femur Total: g/cm2 (0.599) / T-score (-3.2) / Z-score (-1.9) Left Femoral Neck: g/cm2 (0.687) / T-score (-2.5) / Z-score (-1.0) Right Femur Total: g/cm2 (0.606) / T-score (-3.2) / Z-score (-1.9) Right Femoral Neck: g/cm2 (0.656) / T-score (-2.7) / Z-score (-1.2) BD/Dexa Bone Density Study IMPRESSION: The patient is considered osteoporotic as outlined below according to World Willy Organization (WHO) criteria with a high fracture risk. Reference Information: The T-score is the number of standard deviations above or below the standard which is normal for young adults at their peak bone mineral density. The World Health Organization (WHO) interprets the T-scores as follows: Above -1 Normal bone density Between -1 and -2.5 Osteopenia Equal to / or below -2.5 Osteoporosis As a practical clinical guideline, osteopenia may be graded as follows: Mild -1 through -1.5 Moderate -1.6 through -2.0 Severe -2.1 through -2.4 The Z-score is the number of standard deviations above or below age-matched controls. A Z-score of less than -1.5 would be considered abnormal. References: 1. NIH Osteoporosis and Related Bone Diseases http://www.osteo.org 2. International Society for Clinical Densitometry http://www.iscd.org 3. National Osteoporosis Foundation http://www.nof.org Electronically Signed: Naveed Shoemaker MD at 15:23 EDT Tel [phone], Service support ,
== END ==
PROVIDERS: Family Provider Family Medicine; PCP Family Medicine; Visit Provider Family Medicine
DX: M54.5 Low back pain (principal); M81.0 Age-related osteoporosis without current pathological fracture; Z78.0 Asymptomatic menopausal state
CPT/HCPCS: 77080

== ENCOUNTER → 2017-12-15 13:17 | Outpatient (CLI) | payer MEDICARE, OTHER, SELFPAY | PROVIDERS: Family Provider Family Medicine; PCP Family Medicine; Visit Provider Orthopaedic Surgery | DX: M54.2 Cervicalgia (principal) | CPT/HCPCS: 72040 ==

== ENCOUNTER → 2017-12-22 10:47 | Outpatient (CLI) | payer MEDICARE, OTHER, SELFPAY ==
[2017-12-22 11:16] LABS: CREATININE FINGERSTICK 0.9 mg/dL (0.55-1.02); EGFR FINGERSTICK > 60.0000 mL/min (>60)
== END ==
PROVIDERS: Family Provider Family Medicine; PCP Family Medicine; Visit Provider Orthopaedic Surgery
DX: M54.2 Cervicalgia (principal)
CPT/HCPCS: 72156; A9585

== ENCOUNTER → 2018-06-25 09:28 | Outpatient (CLI) | payer MEDICARE, OTHER, SELFPAY ==
--- NOTE | 2018-06-25 09:39 | RAD_ITS ---
STUDY: X-RAY - RIGHT KNEE REASON FOR EXAM: Female, 67 years old. Pain TECHNIQUE: 4 view(s) of the knee. COMPARISON: None. FINDINGS: Normal visualized distal femur. Normal visualized proximal tibia and fibula. Normal proximal tibiofibular articulation. There is mild degenerative arthrosis of the medial femorotibial compartment. Normal lateral femorotibial compartment. There is mild degenerative arthrosis of the patellofemoral articulation. The soft tissue structures are unremarkable. RAD/Knee 4 or More Views IMPRESSION: Mild arthrosis, no demonstrated fracture Electronically Signed: Derian Mi MD at 10:26 EST , Service support ,
--- NOTE | 2018-06-25 09:39 | RAD_ITS ---
STUDY: X-RAY - LEFT KNEE REASON FOR EXAM: Female, 67 years old. Pain TECHNIQUE: 4 view(s) of the knee. COMPARISON: None. FINDINGS: Normal visualized distal femur. Normal visualized proximal tibia and fibula. Normal proximal tibiofibular articulation. Normal medial femorotibial compartment. Normal lateral femorotibial compartment. There is mild degenerative arthrosis of the patellofemoral articulation. The soft tissue structures are unremarkable. RAD/Knee 4 or More Views IMPRESSION: Mild arthrosis, no demonstrated fracture Electronically Signed: Derian Mi MD at 10:27 EST , Service support ,
== END ==
PROVIDERS: Family Provider Family Medicine; PCP Family Medicine; Referring Provider Anesthesiology Pain Medicine; Visit Provider Anesthesiology Pain Medicine
DX: M25.561 Pain in right knee (principal); M25.562 Pain in left knee
CPT/HCPCS: 73564

== ENCOUNTER → 2018-08-05 11:29 | Outpatient (CLI) | payer MEDICARE, OTHER, SELFPAY ==
[2018-08-05 12:24] LABS: Amphetamine Urine VISTA NEGATIVE (<1000 ng/mL); Barbiturate Urine VISTA NEGATIVE (< 200 ng/mL); Benzodiazepine Urine VISTA NEGATIVE (< 200 ng/mL); Cocaine Urine VISTA NEGATIVE (< 300 ng/mL); Ecstacy Urine VISTA NEGATIVE (< 500 ng/mL); Methadone Urine VISTA NEGATIVE (< 300 ng/mL); PCP Urine VISTA NEGATIVE (< 25 ng/mL); THC Urine VISTA NEGATIVE (< 50 ng/mL); Vista UDS pH Range 7
== END ==
PROVIDERS: Family Provider Family Medicine; PCP Family Medicine; Referring Provider Anesthesiology Pain Medicine; Visit Provider Anesthesiology Pain Medicine
DX: F11.20 Opioid dependence, uncomplicated (principal)
CPT/HCPCS: 80307

== ENCOUNTER → 2018-09-28 10:00 | Outpatient (CLI) | payer MEDICARE, OTHER, SELFPAY ==
--- NOTE | 2018-09-28 10:03 | RAD_ITS ---
STUDY: X-RAY - PELVIS AND RIGHT HIP REASON FOR EXAM: Pain. TECHNIQUE: 2 views of the pelvis and hip. COMPARISON: Radiograph 06/04/2016. FINDINGS: There is osteopenia. There are pelvic phleboliths. Normal visualized bilateral iliac wings, sacroiliac joints and visualized sacrum. Normal bilateral superior and inferior pubic rami. Normal pubic symphysis. Normal bilateral ischial tuberosities. Normal visualized femoral head. Normal acetabulum. There is medial joint space narrowing of the right hip joint. RAD/HIP, UNI W/ Pelvis 2-3 Views IMPRESSION: Right hip arthrosis. Osteopenia. Electronically Signed: Santy Renae MD at 13:15 EDT Tel , Service support ,
--- NOTE | 2018-09-28 10:03 | RAD_ITS ---
HISTORY: pain EXAMINATION/TECHNIQUE: XR Spine Lumbar Min 4 Views with flexion and extension COMPARISON: Lumbar spine x-ray 05/14/[address] 07/06/2017 FINDINGS: AP and lateral views of the lumbar spine including lateral flexion extension views were obtained for a total of 4 views. Lumbar hyperlordosis and lumbar levoscoliosis with the apex of the curve at the L1-2 level. Levoscoliosis measures 19 and scoliosis appears new compared to previous. L4-5 surgical fusion utilizing pedicle screws and connecting rods. L2-3 through L4-5 posterior decompression laminectomy. No fracture seen. L1-2 advanced degenerative disc disease with marked disc space narrowing accompanied by endplate sclerosis, endplate spurring, and vacuum disc phenomenon. Degenerative disc disease and spondylosis has progressed at this level compared to previous. Grade 2 spondylolisthesis of L5 on S1. Spondylolisthesis is new compared to previous and shows no significant change between flexion and extension. Underlying L5-S1 degenerative disc disease with disc space narrowing. The SI joints are grossly preserved. RAD/L/S Spine Min 4 Views IMPRESSION: 1. Lumbar levoscoliosis and development of grade 2 spondylolisthesis of L5 on S1. These findings are both new compared to previous. 2. Lumbar laminectomy with surgical fusion and lumbar hyperlordosis. 3. L1-2 advanced degenerative disc disease and spondylosis with interval progression of disease at this level. at 0816 Reported and signed by: Martinez Bush MD Electronically Signed: Martinez Bush, at 8:14 EDT Tel , Service support ,
== END ==
PROVIDERS: Family Provider Family Medicine; PCP Family Medicine; Referring Provider Orthopaedic Surgery; Visit Provider Orthopaedic Surgery
DX: M16.11 Unilateral primary osteoarthritis, right hip (principal)
CPT/HCPCS: 72110; 73502

== ENCOUNTER → 2018-10-02 07:09 | Outpatient (CLI) | payer MEDICARE, OTHER, SELFPAY ==
--- NOTE | 2018-10-02 07:10 | MRI_ITS ---
STUDY: MRI LUMBAR SPINE WITH AND WITHOUT CONTRAST REASON FOR EXAM: Female, 67 years old. Low back pain TECHNIQUE: Standardized fat and water weighted pulse sequences were obtained in the sagittal and axial planes. 10 IV Dotarem was administered for the contrast portion of the examination. COMPARISON: 05/22/2017 FINDINGS: T12-L1: Normal endplates. Normal disc height, hydration and morphology. Normal bilateral facet joints. Normal central canal and bilateral lateral recesses. Normal bilateral intervertebral neural foramina. Normal lumbar lordosis. There is no substantial scoliosis. Normal conus medullaris that terminates at the L1-2 level. Bilateral posterior pedicle fusions at L4 and L5. Stable grade 1 L4-5 and L5-S1 anterolistheses. L1-2: Bulging annulus and bilateral facet hypertrophy with moderate to severe right lateral recess stenosis and severe right and moderate left foraminal stenoses. L2-3: Bilateral laminectomies. Bulging annulus with moderate bilateral foraminal stenoses. L3-4: Bulging annulus with mild bilateral foraminal stenoses. L4-5: Bilateral laminectomies. Disc osteophyte complex and anterolisthesis with severe bilateral foraminal stenoses. L5-S1: Bilateral laminectomies. Disc osteophyte complex with severe bilateral foraminal stenoses. Normal visualized sacral ala. Normal visualized paraspinous soft tissue structures. MRI/Spine Lumbar W/WO Contrast IMPRESSION: Bilateral posterior pedicle fusions at L4 and L5. Stable grade 1 L4-5 and L5-S1 anterolistheses. Multilevel degenerative disease as described. Severe bilateral foraminal stenoses at L4-5 and L5-S1. Severe right lateral recess stenosis and severe right foraminal stenosis at L1-2. Electronically Signed: Toby Bailey MD at 10:31 EDT Tel , Service support ,
[2018-10-02 11:40] LABS: CREATININE FINGERSTICK 0.8 mg/dL (0.55-1.02); EGFR FINGERSTICK > 60.0000 mL/min (>60)
== END ==
PROVIDERS: Family Provider Family Medicine; PCP Family Medicine; Referring Provider Orthopaedic Surgery; Visit Provider Orthopaedic Surgery
DX: M43.17 Spondylolisthesis, lumbosacral region (principal); M54.17 Radiculopathy, lumbosacral region
CPT/HCPCS: 72158; A9575

== ENCOUNTER → 2018-10-26 15:22 | Outpatient (CLI) | payer MEDICARE, OTHER, SELFPAY ==
--- NOTE | 2018-10-26 15:26 | RAD_ITS ---
STUDY: X-RAY CHEST REASON FOR EXAM: Female, 68 years old. Dyspnea TECHNIQUE: Frontal and lateral views of the chest COMPARISON: 02/04/2005. FINDINGS: The lungs are clear. There are no pleural effusions. There is no pneumothorax. The heart is normal in size. There is fusion hardware noted in the cervical spine and lumbar spine. The patient is status post right shoulder arthroplasty. RAD/Chest PA and Lateral IMPRESSION: No acute thoracic pathology. Electronically Signed: Steve Crane, at 15:50 EDT Tel , Service support ,
== END ==
PROVIDERS: Family Provider Family Medicine; PCP Family Medicine; Referring Provider Family Medicine; Visit Provider Family Medicine
DX: R06.09 Other forms of dyspnea (principal)
CPT/HCPCS: 71046

== ENCOUNTER → 2018-11-03 08:13 | Outpatient (CLI) | payer MEDICARE, OTHER, SELFPAY ==
[2018-11-03 09:56] LABS: Color, Urine Yellow (Yellow); Glucose, Dipstick Normal (Normal); Ketone-Dipstick Negative (Negative); Leukocyte Esterase-Dipstick Negative /ul (Negative); Nitrite-Dipstick Negative (Negative); Occult Blood-Urine Negative /ul (Negative); Protein-Dipstick Negative (Negative); Urine Bilirubin Dipstick Negative (Negative); Urine Clarity Clear (Clear); Urine Urobilinogen Normal (Normal)
[2018-11-03 10:03] LABS: Absolute Lymphocyte Count 1.91 X10^3/ul (0.83-4.51); Absolute Neutrophil Count 3.6 X10^3/uL (2.0-7.7); Basophil# 0.05 X10^3/uL; Basophil% 0.8 % (0-1); Eosinophil# 0.14 X10^3/uL; Eosinophils% 2.3 % (0-5); Hematocrit 33.6 % (37-47); Hemoglobin 11.4 g/dl (12.0-15.0); Lymphocyte # 1.91 X10^3/ul (4.0); Lymphocyte % 31.5 % (19-41); Mean Corp Hgb Conc 33.9 g/gl (32-36); Mean Corpuscular Hgb 31.5 pg (27.0-32.0); Mean Corpuscular Volume 92.8 fL (81-99); Mean Platelet Vol. 10.3 fl (6.2-12.0); Monocyte# 0.32 X10^3/uL; Monocyte% 5.3 % (0-10); Neutrophil # 3.64 X10^3/uL (2.7-7.7); Neutrophil % 59.9 % (47-70); Platelet Count 248 K/mm3 (150-450); RBC Distribution Width SD 43.6 fl (35.1-43.9); Red Blood Count 3.62 M/mm3 (4.2-5.4); White Blood Count 6.1 K/mm3 (4.4-11.0)
[2018-11-03 10:08] LABS: POSITIVE COUNT NO; POSITIVE DIFFERENTIAL NO; POSITIVE MORPHOLOGY NO
[2018-11-03 10:10] LABS: Anion Gap 9 (5-15); BUN 17 mg/dL (7-18); BUN/Creat Ratio 17.2 RATIO (10-20); Calcium,Total 9.7 mg/dL (8.5-10.1); Chloride 108 mmol/L (98-107); Creatinine, Serum 0.99 mg/dL (0.55-1.02); EST Glomerular Filtration Rate 59 mL/min (>60); Est Glom Filt Rate - Afr Amer 72 mL/min (>60); Glucose 91 mg/dL (74-106); Potassium 4.1 mmol/L (3.5-5.1); Sodium Level 143 mmol/L (136-145)
[2018-11-03 10:26] LABS: Vitamin D,25 Hydroxy 33.8 ng/mL (29.95-100.01)
== END ==
PROVIDERS: Family Provider Family Medicine; PCP Family Medicine; Referring Provider Family Medicine; Visit Provider Family Medicine
DX: M81.0 Age-related osteoporosis without current pathological fracture (principal); R06.09 Other forms of dyspnea
CPT/HCPCS: 36415; 80048; 81002; 82306; 85025

== ENCOUNTER → 2018-11-09 08:42 | Outpatient (CLI) | payer MEDICARE, OTHER, SELFPAY ==
[2018-11-09 08:33] VITALS: BMI 23.3
--- NOTE | 2018-11-09 08:43 | RAD_ITS ---
STUDY: X-RAY - LUMBAR SPINE REASON FOR EXAM: Female, 68 years old. Back pain TECHNIQUE: 2 view(s) of the lumbar spine were obtained. COMPARISON: 09/28/2018 FINDINGS: Bilateral posterior pedicle fusions at the L4 and L5 levels. Stable grade 1-2 L5-S1 anterolisthesis. Stable grade 1 L4-5 anterolisthesis. Bilateral laminectomies from L3-4 through L5-S1. Degenerative disc disease at the L1-2 and L5-S1 levels. No new compression deformity. Mild levoconvex scoliosis. Pelvic phleboliths. RAD/Lumbar Spine 2 or 3 Views IMPRESSION: Multilevel degenerative disease and postoperative change as described, stable from prior study. Stable L4-5 and L5-S1 anterolisthesis. Electronically Signed: Toby Bailey MD at 16:19 EDT Tel , Service support ,
--- NOTE | 2018-11-09 10:10 | RAD_ITS ---
STUDY: X-RAY - LUMBAR SPINE REASON FOR EXAM: Female, 68 years old. Pain TECHNIQUE: 2 view(s) of the lumbar spine were obtained. COMPARISON: 09/28/2018 FINDINGS: Flexion and extension lateral views were obtained. Stable grade 1 L4-5 anterolisthesis and grade 1-2 L5-S1 anterolisthesis. No significant change between flexion and extension. Degenerative disc disease at L1-2 and L5-S1. No new compression deformities are seen. RAD/Lumbar Spine 2 or 3 Views IMPRESSION: Stable grade 1 L4-5 anterolisthesis and grade 1-2 L5-S1 anterolisthesis. No significant change between flexion and extension. Electronically Signed: Toby Bailey MD at 16:40 EDT Tel , Service support ,
== END ==
PROVIDERS: Family Provider Family Medicine; PCP Family Medicine; Referring Provider Orthopaedic Surgery; Visit Provider Orthopaedic Surgery
DX: M54.10 Radiculopathy, site unspecified (principal); M43.17 Spondylolisthesis, lumbosacral region; Z96.7 Presence of other bone and tendon implants
CPT/HCPCS: 72100

== ENCOUNTER → 2018-11-11 09:31 | Outpatient (CLI) | payer MEDICARE, OTHER, SELFPAY ==
[2018-11-09 08:33] VITALS: BMI 23.3
[2018-11-11 12:42] LABS: CRP 3.46 mg/L (0.0-3.0); Erythrocyte Sedimentation Rate 9 mm/hr (0-30)
== END ==
PROVIDERS: Family Provider Family Medicine; PCP Family Medicine; Referring Provider Orthopaedic Surgery; Visit Provider Orthopaedic Surgery
DX: Z98.890 Other specified postprocedural states (principal)
CPT/HCPCS: 36415; 85652; 86140

== ENCOUNTER → 2018-11-15 10:24 | Outpatient (CLI) | payer MEDICARE, OTHER, SELFPAY ==
[2018-11-09 08:33] VITALS: BMI 23.3
--- NOTE | 2018-11-15 10:28 | US_ITS ---
STUDY: RENAL ULTRASOUND - COMPLETE REASON FOR EXAM: Female, 68 years old. Right flank pain for 6 months. TECHNIQUE: Ultrasound evaluation of the kidneys was performed with real-time and static anthony-scale imaging. COMPARISON: None. FINDINGS: RIGHT KIDNEY: Normal location of the right kidney, which is normal in size. The right kidney measures 9.0 cm. There is a normal cortex of the right kidney. The renal cortex measures 1.3 cm. There is no right renal mass or cyst. There are no right renal calculi. There is no right hydronephrosis. DISTAL RIGHT URETER: There is non-visualization of the distal right ureter. There is no demonstrated right ureterovesical junction calculus. There is a visualized right ureteral jet. LEFT KIDNEY: Normal location of the left kidney, which is normal in size. The left kidney measures 9.0 cm. There is a normal cortex of the left kidney. The renal cortex measures 1.1 cm. There is no left renal mass or cyst. There are no left renal calculi. There is no left hydronephrosis. DISTAL LEFT URETER: There is non-visualization of the distal left ureter. There is no demonstrated left ureterovesical junction calculus. There is a visualized left ureteral jet. BLADDER: The distended urinary bladder has a volume of 42 ml. There is a normal wall thickness of the distended urinary bladder. There is no demonstrated mass within the urinary bladder. There are no demonstrated bladder calculi. US/Kidney and Bladder IMPRESSION: Normal ultrasound of the kidneys and urinary bladder. Electronically Signed: Sandro Osullivan DO at 16:52 EDT Tel [phone], Service support ,
== END ==
PROVIDERS: Family Provider Family Medicine; PCP Family Medicine; Referring Provider Family Medicine; Visit Provider Family Medicine
DX: R10.9 Unspecified abdominal pain (principal)
CPT/HCPCS: 76770

== ENCOUNTER 2018-12-09 09:30 | Outpatient (RCR) | payer MEDICARE, OTHER, SELFPAY ==
[2018-11-09 08:33] VITALS: BMI 23.3
--- NOTE | 2018-11-11 14:34 | HP.PTEVAL ---
Patient's Visit Information DOUG REYES is a 68 year old F referred to Physical Therapy by Raven Mark MD with a diagnosis of Right leg pain h/o spinal surgery. Date of Evaluation: 11/11/18 Physical Therapist: Rose Marie Anne DPT - Visit Plan Frequency: 2x /Week Duration: 4 Weeks Plan: Aquatic Therapy- patient is s/p mulitple spinal surgeries- and possibly going to have another one- please be cautious and get her in/out of the pool throughout session to assess response to unweighting in the pool. Core s/s - Subjective Findings: Patient reports that she had surgery by Dr. Lara about a year ago and has been in terrible pain since. She has pain in the right side and radiates down the leg. Had right leg pain before surgery and it did not help. pain is located along the waiste into the kidney area- she has had a million tests and everything is negative- she is having a CT Scan- Thursday. Pain down the right leg is pretty constant- had pain in the knee and Dr. Christianson put a injection in it which helped for a few days but nothing lasting. Has had multiple injections that have not helped. Dr. Mark thinks she may need another surgery but wants her to have water therapy to help with pain and get stronger. Worst: 01/11 Agg: being up right Eases: laying down on her back with a heating pad Best: 10/11. Sleep: disturbed back sleeper. Does report Numbness down to the toes. Describes pain as achy in the knee- throbbing down the whole leg feels like sciatica. Work: does not work outside of her home. Reports no leg buckling or falls. PMHx/Meds: no changes since she saw Dr. Chapa. Walks the [employer] path with her dog. - Objective Posture: FH, RS- severe guarding of the trunk. Gait: antalgic- decreased stance on the right LE with little trunk rotation and arm swing. HR/TR: with UE A- equal bilaterally. SLS: 3 sec each. ROM: Lumbar: severe restriction in all planes, Hip: WFL in all planes Knee: WNL. Sensation: diminished to gross touch on the right lateral thigh. Reflex:patellar: WNL. Strength: ankle: 5/5, knee: 4+/5, Hip: 4/5 Core: poor. Palpation: tender along paraspinals of the lumbar spine- right flank along the iliac crest and down the hamstrings to the knee - Goals Goal 1:: Patient will be I with HEP and progression Goal Time Frame: 4-6 Weeks Goal 2:: Patient will maintain upright posture t/o tx session to demo increased core s/s Goal Time Frame: 4-6 Weeks Goal 3:: Patient will report 5/10 pain for 1 week Goal Time Frame: 4-6 Weeks - Rehabilitation Potential Physical Therapy Diagnosis: Patient presents with hypomobility- she has significant ROM deficits from previous surgeries and pain- decreased core strength/stabilization and LE strength leading to increased pain with ADL's. Rehabilitation Potential: Poor - Anticipated Interventions Patient/Client Instruction: Educate patient on: Benefits of Fitness Program Therapeutic Exercise to Include: Strength training, Balance training, Body mechanics, Postural training, In an aquatic setting, Dynamic Lumbar Stabilization, Scapular Strength/Stabilization For the Purpose of:: To improve muscle performance and motor function Thank you for the opportunity to evaluate your patient. For Medicare and Medicare HMO plans, please review the plan of care and approve it. It will need to be FAXED BACK to us at [phone] for Medicare purposes. For Medicare only, by signing this I certify the plan of care. Please let me know if there are questions or concerns regarding this plan of care. Physician Signature: Date:
--- NOTE | 2019-02-11 09:54 | HP.PTDCNRP_ITS ---
HP - Discharge Summary (1) - Patient Information DOUG REYES was seen in my office for initial evaluation on 11/11/18. The following Plan of Care was established for this patient: Initial Frequency: 2x /Week Initial Duration: 4 Weeks - Anticipated Interventions Patient/Client Instruction: Educate patient on: Benefits of Fitness Program Therapeutic Exercise to Include: Strength training, Balance training, Body me chanics, Postural training, In an aquatic setting, Dynamic Lumbar Stabilization, Scapular Strength/Stabilization For the Purpose of:: To improve muscle performance and motor function This patient was last seen in our office . Pertinent comments regarding their Physical therapy will appear below: Patient has not attended PT in 4 weeks and is appropriate for d/c- return to MD for further evaluation as needed. At this point I will be discontinuing this patient from physical therapy. I would be happy to see this patient again in the future if found appropriate by the physician. Thank you! TJ BrownT
== END 2018-12-09 19:00 | disposition home or self-care (01) ==
LOC: PT 09:30
PROVIDERS: Family Provider Family Medicine; PCP Family Medicine; Referring Provider Orthopaedic Surgery; Visit Provider Orthopaedic Surgery
DX: M79.604 Pain in right leg (principal); Z98.890 Other specified postprocedural states
CPT/HCPCS: 97113; 97162

== ENCOUNTER → 2018-12-14 08:16 | Outpatient (CLI) | payer MEDICARE, OTHER, SELFPAY ==
[2018-12-14 08:08] VITALS: BMI 23.3
--- NOTE | 2018-12-14 08:19 | RAD_ITS ---
STUDY: X-RAY - LUMBAR SPINE REASON FOR EXAM: Female, 68 years old. Chronic back pain. TECHNIQUE: 4 view(s) of the lumbar spine were obtained including flexion and extension views. COMPARISON: Comparison is made with prior examination dated November 09, 2018. FINDINGS: There is an exaggerated lumbar lordosis. There is a levoscoliosis of the lumbar spine. The patient is status post laminectomy and fusion at the L4-L5 level. There is also evidence of intertransverse bone graft. There is a grade 1-2 anterior listhesis of L5 on S1. This is stable. Normal vertebral bodies and endplates. There is multi-level degenerative disc disease with multi-level disc space narrowing. The soft tissue structures are unremarkable. RAD/L/S Spine Min 4 Views IMPRESSION: Stable examination. Electronically Signed: Naveed Shoemaker, at 10:41 EDT , Service support ,
== END ==
PROVIDERS: Family Provider Family Medicine; PCP Family Medicine; Referring Provider Orthopaedic Surgery; Visit Provider Orthopaedic Surgery
DX: Z98.1 Arthrodesis status (principal)
CPT/HCPCS: 72110

== ENCOUNTER 2019-05-07 15:14 | Emergency (ER) | payer MEDICARE, OTHER, SELFPAY ==
[2018-12-14 08:08] VITALS: BMI 23.3
[2019-05-07 15:15] VITALS: BP 164/86; PULSE 78; RESP 17; TEMP 36.3; O2SAT 100; BMI 22.6
[2019-05-07] MEDS: predniSONE 20 MG Tablet 40 MG PO (16:17)
[2019-05-07] MEDS: morphine 8 MG/ML Syringe SC (16:17)
--- NOTE | 2019-05-07 16:37 | ED.VISSUMM ---
- ER Visit Summary Date of Service: 05/07/19 Chief Complaint: Back\Right hip pain History of Present Illness: The patient is a 68 F who has back and hip pain. She has chronic back pain and sees pain management. Over the past 2 days her pain is worse into the right hip. Is worse with movement and with ambulation. She is on Percocet at home and sees pain management for injections. These are not helping. Denies any falls or trauma. She tried Percocet, Advil and Excedrin without any relief. Physical Examination: Vital signs are reviewed. Back exam is tender in the right lumbar region down into the hip. She has full range of motion of the hip. There is no hip tenderness. I watched the patient ambulate and she does seem to have some lower back pain with ambulation but she is able to ambulate on her own. Test Results: None performed Emergency Department Course and Treatment: Patient received intramuscular morphine and prednisone here. She states that she did have some agitation and insomnia with the prednisone so I will not prescribe this for home. I will give her Lidoderm patches. She will need to call her pain management doctor. Treatment Plan: [] Disposition: Discharge Impression: Lumbar back pain This note was generated with [employer] dictation software. It may contain incorrect words, spelling, and punctuation that were not noted in review of the chart prior to signing ED Disposition - Plan for ED Patient: Referrals: Claudy Saenz MD [Primary Care Provider] -
--- NOTE | 2019-05-07 16:40 | DCINST.ED_ITS ---
ED Disposition - Plan for ED Patient: Disposition: Home or Assisted Living Instructions: BACK PAIN (Acute or Chronic) Prescriptions: Lidocaine [Lidoderm Patch] 1 patch TOPICAL DAILY #10 patch Transmission Status: Pending to [facility] Referrals: Claudy Saenz MD [Primary Care Provider] -
[2019-05-07 16:47] VITALS: BP 159/97; PULSE 83; RESP 17; O2SAT 98
--- NOTE | 2019-05-07 16:48 | ED.RN ---
DISCHARGE INSTRUCTIONS GIVEN TO AND REVIEWED WITH PATIENT, PATIENT DENIES QUESTIONS OR CONCERNS AND VOICES UNDERSTANDING OF DISCHARGE INSTRUCTIONS. PT TO PRIVATE VEHICLE VIA WHEELCHAIR.
== END 2019-05-07 16:48 | disposition home or self-care (01) ==
PROVIDERS: Emergency Provider Emergency Medicine; Family Provider Family Medicine; PCP Family Medicine
DX: M54.5 Low back pain (principal); G89.29 Other chronic pain; M25.551 Pain in right hip; Z79.899 Other long term (current) drug therapy
CPT/HCPCS: 96372; 99283

== ENCOUNTER → 2019-05-17 16:22 | Outpatient (CLI) | payer MEDICARE, OTHER, SELFPAY ==
[2019-05-17 15:01] VITALS: BMI 22.6
== END ==
PROVIDERS: Family Provider Family Medicine; PCP Family Medicine; Referring Provider Orthopaedic Surgery; Visit Provider Orthopaedic Surgery
DX: M54.9 Dorsalgia, unspecified (principal)
CPT/HCPCS: 36415; 82310

== ENCOUNTER → 2019-06-27 09:23 | Outpatient (CLI) | payer MEDICARE, OTHER, SELFPAY ==
[2019-05-17 15:01] VITALS: BMI 22.6
--- NOTE | 2019-06-27 09:31 | RAD_ITS ---
STUDY: X-RAY - CERVICAL SPINE REASON FOR EXAM: Female, 68 years old. Neck pain S/P RECENT FALL TECHNIQUE: 2 view(s) of the cervical spine were obtained. COMPARISON: No prior plain film radiographs of the cervical spine for comparison. MRI cervical spine with and without contrast 12/22/2017. FINDINGS: Normal anterior atlantoaxial articulation. Normal odontoid process. Mild cervical kyphosis at the C5 vertebral body level. Multiple articular pillar screws and rods from previous posterior fusion of C2 down to T2. Metallic surgical plate with transfixing screws and metallic cage from previous ACDF of C5 down to C7. Faint radiopaque disc implant inside the C3-C4 and C4-C5 disc space levels. No suspicious acute fractures. Pronounced C7-T1 disc space height narrowing. The soft tissue structures are unremarkable. RAD/Cerv Spine 2 or 3 Views IMPRESSION: 1. No suspicious acute fracture or malalignment of the cervical spine. 2. Intact articular pillar screws, rods, anterior cervical plate and transfixing screws and metallic cage in the cervical spine. Electronically Signed: Constantino Jones MD at 11:14 EST , Service support ,
--- NOTE | 2019-06-27 09:43 | RAD_ITS ---
STUDY: X-RAY - THORACIC SPINE REASON FOR EXAM: Female, 68 years old. Back pain. Status post recent fall. TECHNIQUE: 3 view(s) of the thoracic spine were obtained. COMPARISON: None. FINDINGS: Normal kyphosis of the thoracic spine. There is no substantial scoliosis. Normal thoracic vertebrae and endplates. Articular pillar screws and rods at T1 and T2. The rods coming from the cervical spine and terminates at T2. Degenerative disc space narrowing with endplate sclerosis at T3-T4 disc level. L1-L2 degenerative disc space narrowing with endplate sclerosis. The soft tissue structures are unremarkable. RAD/Thoracic Spine 3 Views IMPRESSION: No suspicious acute fracture or malalignment of the thoracic spine. Electronically Signed: Constantino Jones MD at 9:31 EST , Service support ,
== END ==
PROVIDERS: PCP Family Medicine; Referring Provider Anesthesiology Pain Medicine; Visit Provider Anesthesiology Pain Medicine
DX: M54.9 Dorsalgia, unspecified (principal); M54.2 Cervicalgia
CPT/HCPCS: 72040; 72072

== ENCOUNTER → 2019-07-18 09:22 | Outpatient (CLI) | payer MEDICARE, OTHER, SELFPAY ==
[2019-05-17 15:01] VITALS: BMI 22.6
[2019-07-18 11:37] LABS: Amphetamine Urine VISTA NEGATIVE (<1000 ng/mL); Barbiturate Urine VISTA NEGATIVE (< 200 ng/mL); Benzodiazepine Urine VISTA NEGATIVE (< 200 ng/mL); Cocaine Urine VISTA NEGATIVE (< 300 ng/mL); Ecstacy Urine VISTA NEGATIVE (< 500 ng/mL); Methadone Urine VISTA NEGATIVE (< 300 ng/mL); PCP Urine VISTA NEGATIVE (< 25 ng/mL); THC Urine VISTA NEGATIVE (< 50 ng/mL); Vista UDS pH Range 5
== END ==
PROVIDERS: PCP Family Medicine; Referring Provider Anesthesiology Pain Medicine; Visit Provider Anesthesiology Pain Medicine
DX: F11.20 Opioid dependence, uncomplicated (principal)
CPT/HCPCS: 80307

== ENCOUNTER → 2019-09-07 08:00 | Outpatient (CLI) | payer MEDICARE, OTHER, SELFPAY ==
[2019-05-17 15:01] VITALS: BMI 22.6
[2019-09-07 09:27] LABS: Anion Gap 7 (5-15); BUN 20 mg/dL (7-18); BUN/Creat Ratio 20.7 RATIO (10-20); Calcium,Total 9.3 mg/dL (8.5-10.1); Chloride 106 mmol/L (98-107); Creatinine, Serum 0.96 mg/dL (0.55-1.02); EST Glomerular Filtration Rate 61 mL/min (>60); Est Glom Filt Rate - Afr Amer 74 mL/min (>60); Glucose 85 mg/dL (74-106); Potassium 4.1 mmol/L (3.5-5.1); Sodium Level 140 mmol/L (136-145)
== END ==
PROVIDERS: PCP Family Medicine; Referring Provider Family Medicine; Visit Provider Family Medicine
DX: Z00.00 Encounter for general adult medical examination without abnormal findings (principal)
CPT/HCPCS: 36415; 80048

== ENCOUNTER → 2020-01-24 14:39 | Outpatient (CLI) | payer MEDICARE, OTHER, SELFPAY ==
[2019-05-17 15:01] VITALS: BMI 22.6
--- NOTE | 2020-01-24 14:45 | VDLE_ITS ---
Reason For Study: Edema Procedure LEFT Exam performed in department. GSV is normal. A preliminary report was called and/or faxed CFV is compressible, spontaneous, phasic, to Davi. competent, and demonstrates normal augmentation. FV is compressible, spontaneous, phasic, competent and demonstrates normal augmentation. POP V is compressible, spontaneous, phasic, competent and demonstrates normal augmentation. T/P Trunk is compressible. PTV is compressible. LT PerV is compressible. Interpretation Summary Deep veins of the left lower extremity are patent and compressible segmentally. There is no evidence of left lower extremity deep vein thrombosis. Valvular competence appears intact within the proximal deep venous system on the left . The left great saphenous vein appears patent and compressible segmentally. Ordering Physician: Steve Tomlinson Referring Physician: Claudy Saenz Performed By: Suzy Dover RVT
== END ==
PROVIDERS: PCP Family Medicine; Referring Provider Specialist; Visit Provider Specialist
DX: R60.0 Localized edema (principal); M79.662 Pain in left lower leg
CPT/HCPCS: 93971

== ENCOUNTER → 2020-03-28 12:09 | Outpatient (CLI) | payer MEDICARE, OTHER, SELFPAY ==
[2019-05-17 15:01] VITALS: BMI 22.6
[2020-03-28 13:49] LABS: Amphetamine Urine VISTA NEGATIVE (<1000 ng/mL); Barbiturate Urine VISTA NEGATIVE (< 200 ng/mL); Benzodiazepine Urine VISTA NEGATIVE (< 200 ng/mL); Cocaine Urine VISTA NEGATIVE (< 300 ng/mL); Ecstacy Urine VISTA NEGATIVE (< 500 ng/mL); Methadone Urine VISTA NEGATIVE (< 300 ng/mL); PCP Urine VISTA NEGATIVE (< 25 ng/mL); THC Urine VISTA NEGATIVE (< 50 ng/mL); Vista UDS pH Range 6
== END ==
PROVIDERS: PCP Family Medicine; Visit Provider Anesthesiology Pain Medicine
DX: F11.20 Opioid dependence, uncomplicated (principal)
CPT/HCPCS: 80307

== ENCOUNTER → 2020-06-22 15:14 | Outpatient (CLI) | payer MEDICARE, OTHER, SELFPAY ==
[2019-05-17 15:01] VITALS: BMI 22.6
== END ==
PROVIDERS: PCP Family Medicine; Referring Provider Otolaryngology; Visit Provider Otolaryngology
DX: Z11.59 Encounter for screening for other viral diseases (principal)
CPT/HCPCS: 87635; C9803; U0005; U0003

== ENCOUNTER → 2020-08-15 11:14 | Outpatient (CLI) | payer MEDICARE, OTHER, SELFPAY ==
[2019-05-17 15:01] VITALS: BMI 22.6
[2020-08-15 13:39] LABS: Amphetamine Urine VISTA NEGATIVE (<1000 ng/mL); Barbiturate Urine VISTA NEGATIVE (< 200 ng/mL); Benzodiazepine Urine VISTA NEGATIVE (< 200 ng/mL); Cocaine Urine VISTA NEGATIVE (< 300 ng/mL); Ecstacy Urine VISTA NEGATIVE (< 500 ng/mL); Methadone Urine VISTA NEGATIVE (< 300 ng/mL); PCP Urine VISTA NEGATIVE (< 25 ng/mL); THC Urine VISTA NEGATIVE (< 50 ng/mL); Vista UDS pH Range 6
== END ==
PROVIDERS: PCP Family Medicine; Referring Provider Anesthesiology Pain Medicine; Visit Provider Anesthesiology Pain Medicine
DX: F11.20 Opioid dependence, uncomplicated (principal)
CPT/HCPCS: 80307

== ENCOUNTER 2020-10-02 15:34 | Emergency (ER) | payer MEDICARE, OTHER, SELFPAY ==
[2019-05-17 15:01] VITALS: BMI 22.6
[2020-10-02 15:35] VITALS: BP 117/58; PULSE 77; RESP 16; TEMP 36.8; O2SAT 95; BMI 23.0
[2020-10-02 15:38] VITALS: BP 117/58; PULSE 82; RESP 16; TEMP 36.8; O2SAT 95
--- NOTE | 2020-10-02 16:08 | NURSING ---
Patient reports she fell Thursday and landed on her face on cement and hit her head and got a knot. Did not lose conciousness, stumbled and fell. No blood thinners, Pain is in face, head, bilat shoulder and L knee and staets she is not able to breath which is why she is in. Says pain to breath started today, when got up,. Pain is aching and states still has bowel, bladder control and no new n/t. Says she is current on tetanus shot.
--- NOTE | 2020-10-02 16:19 | EDS_ITS ---
HPI HPI - Fall History of Present Illness Chief Complaint: Fall Informant: patient Occured/Mechanism Occurred: Days (2 days ago) Mechanism/Context: Yes same level fall and Yes trip Usually ambulates: Without assistance Pain/Injury Pain Location: face, chest, upper extremity (Bilateral shoulders) and lower extremity (Right knee) Quality of Pain: Aching Worsened by: Breathing Relieved by: Nothing Associated Symptoms Associated Symptoms: Negative for Parasthesias, Weakness, Loss of function, Inability to ambulate, Loss of consciousness and Amnesia Narrative Narrative: Patient presents with a fall that occurred 2 days ago. Patient states she tripped and fell. Patient states she fell forward and hit her face on concrete. Patient denies any loss of consciousness. Patient states her pain is over her chest and right knee and both shoulders. Patient states it is worse with deep breathing. Patient denies any new injuries. Patient describes her pain as aching. Patient denies any paresthesias or weakness. Patient states her last tetanus was up-to-date. Tetanus Immunization: <5 years PFSH PFSH Home Medications linaclotide [Linzess] 72 mcg PO DAILY PRN 07/03/17 [History Last Taken Unknown] multivitamin 1 ea PO DAILY 07/03/17 [History Last Taken Unknown] omega-3 fatty acids-fish oil 1 ea PO DAILY 07/03/17 [History Last Taken Unknown] acetaminophen 650 mg PO Q6H PRN PRN tab 07/10/17 [Rx Last Taken Unknown] cetirizine 10 mg tablet 10 mg PO DAILY PRN PRN #30 tab 11/09/18 [History Last Taken Unknown] oxycodone-acetaminophen 7.5 mg-325 mg tablet 1 tab PO Q8H PRN PRN #84 tab 11/09/18 [History Last Taken Unknown] alendronate 70 mg tablet 1 tab PO QWEEK #12 tab 12/14/18 [History Last Taken Unknown] lidocaine 1 patch TOPICAL DAILY #10 patch 05/07/19 [Rx Last Taken Unknown] Allergy/AdvReac Type Severity Reaction Status Date / Time No Known Allergies Allergy Verified 10/02/20 16:00 Family History (Updated 04/14/17 @ 16:06 by Zaina Figueredo) Father Hypertension Mother CVA (cerebral vascular accident) Hypertension Surgical History H/O shoulder replacement History of hip replacement, total S/P cervical spinal fusion S/P cervical spinal fusion Social History Smoking Status: Former smoker ROS ROS ED Constitutional Constitutional ED: Denies chills or fever(s) Eyes Eyes: Denies blurry vision or change in vision ENT ENT ED: Denies rhinorrhea or sore throat Cardiovascular Cardiovascular: Reports chest pain; Denies palpitations Respiratory/Chest Respiratory/Chest: Reports dyspnea; Denies cough Gastrointestinal Gastrointestinal: Denies nausea or vomiting Genitourinary Genitourinary ED: Denies dysuria or hematuria Musculoskeletal Musculoskeletal: Denies back pain or neck pain Integumentary Reports Abrasions; Denies abscess or rash Neurologic Neurologic: Denies headache(s), paresthesias or weakness Allergic/Immunologic Allergic/Immunologic ED: Denies mouth swelling or urticaria EXAM Physical Exam Const Vital Signs: 10/02/20 15:35 10/02/20 15:38 10/02/20 16:04 Temperature 98.2 F 98.2 F Temperature Source Temporal Temporal Pulse Rate 77 82 Respiratory Rate 16 16 Respiratory Depth Normal Respiratory Pattern Normal Blood Pressure 117/58 L 117/58 L Blood Pressure Mean 77 77 Pulse Ox 95 95 Oxygen Delivery Method Room Air Room Air Positive well nourished and well developed General Appearance ED: well developed HEENT HEENT Narrative: There are superficial abrasions over the upper lip and bridge of the nose. There is no active bleeding. There is no bony crepitance or step- off. There is no edema or ecchymosis. Eyes PERRL and EOMs intact bilaterally Neck supple General: Negative for tenderness Chest Wall Chest Narrative: There is tenderness to palpation of the left upper chest. Resp normal respiratory effort and clear to auscultation bilaterally Cardio regular rate and regular rhythm GI non-tender and non-distended Auscultation: normoactive bowel sounds Palpation: soft Back/Spine Thoracic Spine / Upper Back: thoracic spinal tenderness T2, T3 and T4 Extremity Extremity Narrative: There is tenderness over the anterior aspect of the right knee. There is some edema and ecchymosis. There is a superficial abrasion. There is no active bleeding. There is good range of motion from 0 to 90 degrees. There is no laxity appreciated. There is no obvious deformity noted. Neuro oriented x3, CN's II-XII intact bilaterally, moves all extremities, no focal motor deficits and no sensory deficits noted Sensorium / Orientation: alert Psych mental status grossly normal MDM MDM MDM Narrative Medical decision making narrative: X-rays of the left ribs were obtained. There are 3 views. On my interpretation, there are no acute rib fractures. There is no pulmonary contusion. There is no acute cardiopulmonary process. Radiologist also interpreted the x-rays and agrees. X-rays of the right knee were obtained. There are 4 views. On my interpretation, there is no acute fracture. There is no dislocation. There is no soft tissue swelling. Radiologist also interpreted the x-rays and agrees. Patient was advised of her findings. Patient was instructed to ice and elevate her knee. Patient was also instructed to use ice to her chest and back. Patient was instructed to continue Tylenol or ibuprofen as needed for pain. Patient was instructed return if worse in any way. Patient understood and was agreeable with the plan. All questions were answered. Radiography Diagnostic Testing: Radiology Impression Knee X-Ray 10/02/20 16:50 IMPRESSION: Normal x-ray examination of the knee. Electronically Signed: Denise Mae MD at 17:21 EDT Tel , Service support , Ribs w/Chest X-Ray 10/02/20 16:50 IMPRESSION: RIBS: No acute displaced rib fracture, pleural thickening or pneumothorax CHEST: Degenerative changes, as described above. No demonstrated acute cardiopulmonary process. Electronically Signed: Derian Mi MD at 17:13 EDT , Service support , Discharge Plan Triage Chief Complaint: Fall ED Provider: Jose Haywood Dx/Rx/DC Orders Clinical Impression: Contusion of rib on left side, Contusion of right knee, initial encounter, Abrasion of face Instructions: ED Contusion, Lower Extremity, ED Head Injury (Adult), ED Contusion, Rib Prescriptions: No Action oxycodone-acetaminophen 7.5-325 mg tablet 1 tab PO Q8H PRN PRN (Reason: Pain) Qty: 84 RF: 0 cetirizine 10 mg tablet 10 mg PO DAILY PRN PRN (Reason: Allergic Reaction) Qty: 30 RF: 0 alendronate 70 mg tablet 1 tab PO QWEEK Qty: 12 RF: 0 multivitamin 1 EACH tablet 1 ea PO DAILY RF: 0 omega-3 fatty acids-fish oil 1 EACH capsule 1 ea PO DAILY RF: 0 Linzess 72 MCG capsule 72 mcg PO DAILY PRN (Reason: Pain) RF: 0 acetaminophen 325 MG tablet 650 mg PO Q6H PRN PRN (Reason: Mild Pain (0-3/10)/Headache) RF: 0 lidocaine 1 PATCH patch 1 patch topical DAILY Qty: 10 RF: 0 Primary Care Provider: Claudy Saenz Referrals: Claudy Saenz MD [Primary Care Provider] - 1-2 Weeks Disposition Disposition: Home, self care
--- NOTE | 2020-10-02 16:50 | RAD_ITS ---
STUDY: X-RAY - UNILATERAL RIBS ( LEFT ) WITH CHEST REASON FOR EXAM: Female, 69 years old. Fall TECHNIQUE - RIBS: 2 view(s) of the ribs. TECHNIQUE - CHEST: Single PA view of the chest. COMPARISON: None. FINDINGS - RIBS: Normal visualized ribs without a demonstrated fracture. FINDINGS - CHEST: There are interstitial fibrotic changes of the lungs. There is no demonstrated pleural abnormality. Normal size heart. Normal mediastinum and iris. Normal visualized pulmonary arteries. Normal visualized aortic arch and descending thoracic aorta. There are diffuse degenerative changes of the visualized thoracic spine. Replaced right glenohumeral joint free of complication There is no demonstrated abnormality of the visualized soft tissue structures of the upper abdomen. RAD/Ribs Uni Min 3V w/PA Chest IMPRESSION: RIBS: No acute displaced rib fracture, pleural thickening or pneumothorax CHEST: Degenerative changes, as described above. No demonstrated acute cardiopulmonary process. Electronically Signed: Derian Mi MD at 17:13 EDT , Service support ,
--- NOTE | 2020-10-02 16:50 | RAD_ITS ---
STUDY: X-RAY - RIGHT KNEE REASON FOR EXAM: Female, 69 years old. Injury/Pain TECHNIQUE: 4 view(s) of the knee. COMPARISON: None. FINDINGS: Normal visualized distal femur. Normal visualized proximal tibia and fibula. Normal proximal tibiofibular articulation. Normal medial femorotibial compartment. Normal lateral femorotibial compartment. Normal patellofemoral articulation. The soft tissue structures are unremarkable. RAD/Knee 4 or More Views IMPRESSION: Normal x-ray examination of the knee. Electronically Signed: Denise Mae MD at 17:21 EDT Tel , Service support ,
[2020-10-02 18:16] VITALS: BP 124/80; PULSE 74; RESP 16; TEMP 36.7; O2SAT 99
== END 2020-10-02 18:17 | disposition home or self-care (01) ==
PROVIDERS: Emergency Provider Emergency Medicine; PCP Family Medicine
DX: S20.212A Contusion of left front wall of thorax, initial encounter (principal); S80.01XA Contusion of right knee, initial encounter; S00.81XA Abrasion of other part of head, initial encounter; Z87.891 Personal history of nicotine dependence; W01.10XA Fall on same level from slipping, tripping and stumbling with subsequent striking against unspecified object, initial encounter
CPT/HCPCS: 71101; 73564; 99282

== ENCOUNTER → 2020-10-16 08:08 | Outpatient (CLI) | payer MEDICARE, OTHER, SELFPAY ==
[2020-10-02 15:35] VITALS: BMI 23.0
--- NOTE | 2020-10-16 08:20 | BD_ITS ---
STUDY: DUAL ENERGY X-RAY ABSORPTIOMETRY / DXA REASON FOR EXAM: Female, 69 years old. [id number]. The patient is postmenopausal. TECHNIQUE: Bone Mineral Density (BMD) measurements of lumbar spine and right hip were obtained. COMPARISON: Comparison is made with prior study 12/03/2017. FINDINGS: Lumbar Spine (L1-L4): g/cm2 (0.987) / T-score (-1.5) / Z-score (0.2) Findings are suggestive of osteopenia with a low fracture risk. Right Femur Total: g/cm2 (0.641) / T-score (-2.9) / Z-score (-1.5) Right Femoral Neck: g/cm2 (0.674) / T-score (-2.6) / Z-score (-0.9) The T-Scores on the most recent prior examination were: Lumbar Spine (L1-L4): There has been improvement of bone density since the previous examination. Right Femur Total: which represents an improvement of 5.8%. BD/Dexa Bone Density Study IMPRESSION: The patient is considered osteoporotic as outlined below according to World Willy Organization (WHO) criteria with a high fracture risk. There has been improvement of bone density since the previous examination. Reference Information: The T-score is the number of standard deviations above or below the standard which is normal for young adults at their peak bone mineral density. The World Health Organization (WHO) interprets the T-scores as follows: Above -1 Normal bone density Between -1 and -2.5 Osteopenia Equal to / or below -2.5 Osteoporosis As a practical clinical guideline, osteopenia may be graded as follows: Mild -1 through -1.5 Moderate -1.6 through -2.0 Severe -2.1 through -2.4 The Z-score is the number of standard deviations above or below age-matched controls. A Z-score of less than -1.5 would be considered abnormal. References: 1. NIH Osteoporosis and Related Bone Diseases www osteo.org 2. International Society for Clinical Densitometry www iscd.org 3. National Osteoporosis Foundation www nof.org Electronically Signed: Naveed Shoemaker MD at 15:32 EDT , Service support ,
== END ==
PROVIDERS: PCP Family Medicine; Referring Provider Family Medicine; Visit Provider Family Medicine
DX: M81.0 Age-related osteoporosis without current pathological fracture (principal)
CPT/HCPCS: 77080

== ENCOUNTER → 2020-11-09 10:58 | Outpatient (CLI) | payer MEDICARE, OTHER, SELFPAY ==
--- NOTE | 2020-11-09 11:06 | RAD_ITS ---
STUDY: X-RAY - RIGHT SHOULDER REASON FOR EXAM: Female, 70 years old. SHOULDER PAIN TECHNIQUE: 3 view(s) of the shoulder. COMPARISON: None. FINDINGS: Right shoulder replacement and gross radiographic alignment. Normal acromioclavicular joint. Normal acromion. Normal humeral head and visualized proximal humerus. The soft tissue structures are unremarkable. Normal visualized pulmonary apex. RAD/Shoulder min 2 Views IMPRESSION: No fracture or malalignment. Right shoulder replacement. Electronically Signed: Boaz Velasco MD ([place]) at 12:00 EDT , Service support ,
--- NOTE | 2020-11-09 11:06 | RAD_ITS ---
STUDY: X-RAY - LEFT SHOULDER REASON FOR EXAM: Female, 70 years old. SHOULDER PAIN TECHNIQUE: 3 view(s) of the shoulder. COMPARISON: None. FINDINGS: There is mild degenerative arthrosis of the glenohumeral articulation. There is degenerative arthrosis of the acromioclavicular joint without inferior osseous spur formation. Normal acromion. Normal humeral head and visualized proximal humerus. The soft tissue structures are unremarkable. Normal visualized pulmonary apex. Fusion hardware of the lower cervical spine. RAD/Shoulder min 2 Views IMPRESSION: No fracture or malalignment. Degenerative changes. Electronically Signed: Boaz Velasco MD ([place]) at 12:01 EDT , Service support ,
== END ==
PROVIDERS: PCP Family Medicine; Referring Provider Anesthesiology Pain Medicine; Visit Provider Anesthesiology Pain Medicine
DX: M25.511 Pain in right shoulder (principal); M25.512 Pain in left shoulder
CPT/HCPCS: 73030

== ENCOUNTER → 2021-02-15 09:59 | Outpatient (CLI) | payer MEDICARE, OTHER, SELFPAY ==
[2021-02-15 12:03] LABS: Absolute Lymphocyte Count 1.94 X10^3/uL (0.83-4.51); Absolute Neutrophil Count 3.4 X10^3/uL (2.0-7.7); Basophil# 0.05 X10^3/uL; Basophil% 0.8 % (0-1); Eosinophil# 0.17 X10^3/uL; Eosinophils% 2.8 % (0-5); Hematocrit 33.3 % (37-47); Hemoglobin 10.9 g/dL (12.0-15.0); Lymphocyte # 1.94 X10^3/ul (0.83-4.51); Lymphocyte % 32.3 % (19-41); Mean Corp Hgb Conc 32.7 g/dL (32-36); Mean Corpuscular Hgb 32.1 pg (27.0-32.0); Mean Corpuscular Volume 97.9 fL (81-99); Mean Platelet Vol. 10.4 fl (6.2-12.0); Monocyte# 0.47 X10^3/uL; Monocyte% 7.8 % (0-10); NRBC Flagged by Analyzer 0 % (0-5); Neutrophil # 3.35 X10^3/uL (2.7-7.7); Platelet Count 268 K/mm3 (150-450); RBC Distribution Width CV 12.7 % (11.6-14.6); RBC Distribution Width SD 46.2 fl (35.1-43.9)
[2021-02-15 12:43] LABS: ALB/GLOB Ratio 1.2 RATIO (0.9-2.4); AST(SGOT) 19 U/L (15-37); Alanine Aminotransfer ALT/SGPT 18 U/L (13-56); Albumin, Serum 3.8 g/dL (3.2-5.0); Alkaline Phosphatase 77 U/L (45-117); Anion Gap 5 (5-15); BUN 23 mg/dL (7-18); BUN/Creat Ratio 20.5 RATIO (10-20); Calcium,Total 9.9 mg/dL (8.5-10.1); Chloride 106 mmol/L (98-107); Creatinine, Serum 1.12 mg/dL (0.55-1.02); EST Glomerular Filtration Rate 51 mL/min (>60); Est Glom Filt Rate - Afr Amer 62 mL/min (>60); Globulin 3.2 g/dL (2.2-4.2); Glucose 87 mg/dL (74-106); Potassium 5.4 mmol/L (3.5-5.1); Sodium Level 137 mmol/L (136-145)
== END ==
PROVIDERS: PCP Internal Medicine; Referring Provider Internal Medicine; Visit Provider Internal Medicine
DX: S20.212A Contusion of left front wall of thorax, initial encounter (principal); X58.XXXA Exposure to other specified factors, initial encounter; Y93.9 Activity, unspecified; Y92.9 Unspecified place or not applicable; Y99.9 Unspecified external cause status; M81.0 Age-related osteoporosis without current pathological fracture; D64.9 Anemia, unspecified
CPT/HCPCS: 36415; 80053; 82746; 85025

== ENCOUNTER → 2021-02-27 10:27 | Outpatient (CLI) | payer MEDICARE, OTHER, SELFPAY ==
--- NOTE | 2021-02-27 10:32 | RAD_ITS ---
STUDY: X-RAY - LEFT KNEE REASON FOR EXAM: Female, 70 years old. PAIN TECHNIQUE: 4 view(s) of the knee. COMPARISON: 06/25/2018 FINDINGS: Normal visualized distal femur. Normal visualized proximal tibia and fibula. Normal proximal tibiofibular articulation. Normal medial femorotibial compartment. Normal lateral femorotibial compartment. Normal patellofemoral articulation. There is a soft tissue prominence in the suprapatellar region suggesting a small volume joint effusion. The soft tissue structures are unremarkable. RAD/Knee 4 or More Views IMPRESSION: Small joint effusion. Electronically Signed: Boaz Velasco MD ([place]) at 12:54 EDT , Service support ,
--- NOTE | 2021-02-27 10:38 | RAD_ITS ---
STUDY: X-RAY - RIGHT KNEE REASON FOR EXAM: Female, 70 years old. Bilateral Knee Pain TECHNIQUE: 4 view(s) of the knee. COMPARISON: FINDINGS: Normal visualized distal femur. Normal visualized proximal tibia and fibula. Normal proximal tibiofibular articulation. Linear lucency with adjacent sclerosis involving the inferomedial patella. Normal medial femorotibial compartment. Normal lateral femorotibial compartment. Normal patellofemoral articulation. There is a soft tissue prominence in the suprapatellar region suggesting a small volume joint effusion. The soft tissue structures are unremarkable. RAD/Knee 4 or More Views IMPRESSION: Unhealed, nondisplaced fracture of the patella with subacute features. Electronically Signed: Boaz Velasco MD ([place]) at 12:53 EDT , Service support ,
== END ==
PROVIDERS: PCP Internal Medicine; Referring Provider Internal Medicine; Visit Provider Internal Medicine
DX: M25.561 Pain in right knee (principal); M25.562 Pain in left knee
CPT/HCPCS: 73564

== ENCOUNTER → 2021-03-29 12:39 | Outpatient (CLI) | payer MEDICARE, OTHER, SELFPAY ==
--- NOTE | 2021-03-29 12:56 | BI_ITS ---
MAMMOGRAPHY - BILATERAL SCREENING REASON FOR EXAM: Female, 70 years old. Routine annual screening examination. PERTINENT HISTORY: Non-contributory. TECHNIQUE: Digital bilateral breast neri (3D mammographic acquisition) in the CC and MLO projections. 2-D mediolateral oblique (MLO) and craniocaudad (CC) views of both breasts were obtained. CAD: Full Field Digital Mammography with Computer Added Detection was performed. COMPARISON: Comparison is made with prior study dated 03/13/2017 and 04/16/2010. FINDINGS: Breast Composition: There are scattered areas of fibroglandular density. There are no dominant masses or suspicious calcifications. Stable bilateral secretory calcifications. No other significant abnormalities are identified. There has been no significant change since the prior study. BI/SCRN MAMM (CAD)W/NERI BILAT IMPRESSION: Stable bilateral screening mammogram. Yearly follow-up mammogram recommended. (A) ASSESSMENT CATEGORY: BIRADS Category 2: Benign. A letter regarding these results will be sent to the patient by the facility within 30 days. Approximately 10% of breast cancers are not detected by mammography. A normal mammogram should not delay biopsy of a clinically suspicious abnormality. [id number] Electronically Signed: Naveed Shoemaker MD at 10:32 EST , Service support ,
== END ==
PROVIDERS: PCP Internal Medicine; Referring Provider Internal Medicine; Visit Provider Internal Medicine
DX: Z12.31 Encounter for screening mammogram for malignant neoplasm of breast (principal)
CPT/HCPCS: 77063; 77067

== ENCOUNTER → 2021-04-08 16:40 | Outpatient (CLI) | payer MEDICARE, OTHER, SELFPAY ==
--- NOTE | 2021-04-08 16:42 | CT_ITS ---
STUDY: CT RIGHT KNEE WITHOUT CONTRAST REASON FOR EXAM: Right patellar fracture, right knee injury in September. TECHNIQUE: Transaxial CT imaging of the knee was performed. Coronal and sagittal images were reformatted. Individualized dose optimization techniques were used for this CT. COMPARISON: Radiographs 10/02/2020 and 02/27/2021. FINDINGS: There is osteopenia. Normal medial femoral condyle and medial tibial plateau. There is mild joint space narrowing of the medial femorotibial compartment (coronal reconstruction 23). Normal lateral femoral condyle and lateral tibial plateau. There is preservation of the articular joint space of the lateral knee compartment. There is osseous bridging of the patellar fracture (sagittal reconstructions 23-29; coronal reconstructions 8-10) with a subchondral defect extending to the medial patellar facet (axial image 41; sagittal reconstructions 24-28) measuring 0.3 cm in length. Normal proximal tibiofibular articulation. There is a very small joint effusion. The quadriceps tendon is grossly normal. The patellar tendon is grossly normal. Normal Hoffa''s fat pad. There is a small popliteal cyst (sagittal reconstruction 29). 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 Mild arthrosis of the medial femorotibial compartment. Very small joint effusion. Small popliteal cyst. Electronically Signed: Santy Renae MD at 13:40 EST Tel , Service support ,
== END ==
PROVIDERS: PCP Internal Medicine; Referring Provider Specialist; Visit Provider Specialist
DX: S82.091A Other fracture of right patella, initial encounter for closed fracture (principal); X58.XXXA Exposure to other specified factors, initial encounter; Y93.9 Activity, unspecified; Y92.9 Unspecified place or not applicable; Y99.9 Unspecified external cause status
CPT/HCPCS: 73700

== ENCOUNTER 2021-07-02 05:39 | Day surgery (SDC) | payer MEDICARE, OTHER, SELFPAY ==
[2021-07-02] VITALS (7 sets, daily range): BP systolic 98–112; BP diastolic 58–67; PULSE 61–68; RESP 18; TEMP 36.6–36.8; O2SAT 98–100; BMI 24.2
[2021-07-02] MEDS: Lactated Ringers 1,000 ML 15 ML IV (06:24)
[2021-07-02] MEDS: Bupivacaine Mpf 0.5% 30 ML VIAL (06:45)
--- NOTE | 2021-07-02 07:09 | HP.PCM_ITS ---
History and Physical Date of Admission: 07/02/21 Date of Service: 05/08/21 MR#:[id number]: DOUG REYES [facility] #:[id number]:1950 Provider:Dr. Stephen Almanzar DOAge/Sex: 70/F [facility] [place]:Signed with Addenda ADDENDUM by Dr. Stephen Almanzar DO on 05/10/21 at 0824 Assessment and Plan Assessment and Plan (1) CTS (carpal tunnel syndrome): Status: Acute Plan: patient wishes to try bilateral wrist splints. dispensed. 05/10/21 0825<Electronically signed by Stephen Almanzar DO>Date Stephen Almanzar DO cc: ~*Signed Intake Intake Visit Reasons: Bilat wrist Is patient in pain?: Yes Allergies grass pollen Allergy (Intermediate, Verified 05/08/21 10:46) sinus issues Medications multivitamin 1 ea PO DAILY 07/03/17 [History Confirmed 05/08/21] cetirizine 10 mg tablet 10 mg PO DAILY PRN PRN #30 tab 11/09/18 [History Confirmed 05/08/21] oxycodone-acetaminophen 7.5 mg-325 mg tablet 1 tab PO Q8H PRN PRN #84 tab 11/09/18 [History Confirmed 05/08/21] alendronate 70 mg tablet 1 tab PO QWEEK #12 tab 12/14/18 [History Confirmed 05/08/21] cholecalciferol (vitamin D3) 125 mcg (5,000 unit) capsule 125 mcg PO DAILY 02/15/21 [History Confirmed 05/08/21] fluticasone propionate 50 mcg/actuation nasal spray,suspension INTRANASAL 02/15/21 [History Confirmed 05/08/21] ibuprofen 200 mg capsule 200 mg PO Q6H PRN 02/15/21 [History Confirmed 05/08/21] linaclotide 145 mcg capsule 145 mcg PO PRN cap 02/15/21 [History Confirmed 05/08/21] stool softner PO 02/15/21 [History Confirmed 05/08/21] [facility] Medical History Anemia Arthritis Back pain Bilateral knee pain Chronic back pain Headache, migraine Health care maintenance Osteoarthritis Osteoporosis Osteoporosis Patellar fracture Seasonal allergies Wears glasses Surgical History H/O shoulder replacement History of back surgery History of hip replacement History of hip replacement, total History of shoulder surgery S/P cervical spinal fusion S/P cervical spinal fusion Family History Father Hypertension Arthritis CVA (cerebral vascular accident) Mother CVA (cerebral vascular accident) Hypertension Alcoholism Social History Smoking Status: Former smoker alcohol intake: never substance use type: does not use what type of physical activity do you participate in: walking frequency: daily HPI Bilat wrist Details: Parts of this documentation were recorded by a scribe, this documentation accurately reflects the service provided and the decisions made by me, Dr. Stephen Almanzar, DO 05/08/21 7026. DOUG REYES is a 70 year old F here today for bilateral wrist pain. She was referred by Dr Zhang. Patient notes that she has had pain for many years. She states that she has numbness into her entire hand. She has stiffness into her fingers in the morning. Patient complains of throbbing into her arms. She notes that her pain has worsened after the last few months. Patient denies any wrist bracing. She denies any injections or physical therapy. She had bilateral EMG about a week ago. The left wrist is worse than the right wrist. she does have morning stiffness and pain in her fingers that improves after a few hours. Does have hx of RA saw Shari over 3 years ago and has tried Methotrexate but stated this didnt help so she stopped the medication and has yet to F/U with rheumatology. Ortho Exam Right Wrist/Hand Skin/Wound: Yes capillary refill normal Right Wrist: Yes Durken's Test, Tinel's, Phalen's, Thenar Atrophy and Hypothenar Atrophy WRIST: Heberden nodes of DIP joints atrophy of first web hypertrophic changes of the thumb hypertrophy of MP joint and 1st web space wasting lacking 45 degrees of MP joint extension of 1st digit Left Wrist/Hand Left Wrist: Yes Durken's Test, Yes Tinel's, Yes Phalen's and Yes Thenar Atrophy WRIST: lacking 30 degrees of MP joint extension of 1st digit slight ulnar deviation at MP joint Heberden nodes of DIP joints Supplemental Info 04/23/2021 EMG bilateral upper extremities consistent with moderate bilateral carpal tunnel 03/25/2021 x-ray cervical spine: Long posterior fusion of the cervical spine extending to the upper thoracic prior cervical fusion C3-C4 and C4-C5 anterior fusion plate C5-C7 Coding Level of Care Code Off vis,est,level 4 Diagnoses CTS (carpal tunnel syndrome) G56.00 Assessment and Plan Assessment and Plan (1) CTS (carpal tunnel syndrome): Status: Acute Plan - Dr. Stephen Almanzar, DO: Personally reviewed patients EMG and educated that she does have moderate BL carpal tunnel syndrome. Educated that she also appears to have possible RA and she could consider seeing a Activity Manager for further evaluation. Recommended night bracing for mild carpal tunnel syndrome or if she wishes to have CTR she can have this completed but only can have 1 side completed at a time. Reviewed the pre-operative plans with the patient. Risks and benefits of the procedure were fully explained, including but not limited to infection, neurovascular injury, continued pain, arthritis, stiffness, need for further surgery, re- injury, DVT, PE, general risks of anesthesia, and loss of limb or life. The patient understands all the risks. She would have 0.5lb lifting restrictions for 2 weeks post op then will have 5lb lifting restrictions for 1 week then can return to activity as tolerated. She can have some sorness/sensitivity over the palm of her hand post op. We will send the patient to Dr. Mccarthy for a re- evaluation. She wishes to think about her options and will call if she wishes to proceed with CTR. We will give her a right wrist splint for night today for her to try this in the meantime. Follow up as needed or sooner if pain, swelling, numbness or associated symptoms, or concerns develop. All questions answered. Patient in agreement of plan. 05/08/21 1252<Electronically signed by Stephen Almanzar DO>Date Stephen Perdomo Signature:Date (if applicable) CC: ~ I have examined the patient the following changes are noted:
[2021-07-02] MEDS: Cefazolin 2 GM in 0.9% Normal Saline 100 ML IV (07:32)
--- NOTE | 2021-07-02 07:39 | PCM.OPRPT ---
Report of Operation Date of Procedure: 07/02/21 Description of Surgical Findings:: Preoperative diagnosis; left carpal tunnel syndrome Postoperative diagnosis; same Procedure: Left open carpal tunnel release Anesthesia: Local with MAC Tourniquet time; 10 minutes 250 mm Hg Complications: None Indication for procedure; This is a 70-year-old female with long-standing symptoms consistent with carpal tunnel syndrome the patient did have electrodiagnostic evidence of this and has failed conservative treatment. Risks benefits and alternatives were reviewed including risks of bleeding infection nerve artery tissue damage need for further surgery and continued pain and symptoms, hypersensitivity to scar and Pillar pain. Procedure; The patient was met in the preoperative holding area the operative extremity was identified by both patient and physician and was marked the patient was met by anesthesia and brought back to the operating room and transferred to the operating table in the supine position. Anesthesia was started. A well-padded tourniquet was placed on the operative upper extremity. The patient was prepped and draped in the usual sterile fashion. A timeout was called to ensure the proper patient procedure and extremity were being contemplated. 0.5 percent lidocaine with epinephrine was injected into the incisional area. An Esmarch was used to exsanguinate the extremity. The tourniquet was inflated to 250 mmHg. A midline incision was made with a 15 blade scalpel between the thenar and hypothenar eminence. This was carried down through the skin and subcutaneous tissue. Ned retractors were then used, a deep blade scalpel was used to make a deep incision in the palmar aponeurosis. The ned retractors were then placed deep to this and the transverse carpal ligament was identified a perforation was made with a scalpel and a Littler scissors were used to complete the release of the transverse carpal ligament distally under direct visualization with the tips facing ulnarly until the perivascular fat was reached. Then turning our attention proximally using a tension slide technique the proximal extent of the transverse carpal ligament was released . There was noted to be hourglass configuration to the median nerve and hypertrophy of the transverse carpal ligament without other findings. The wound was thoroughly irrigated and was closed with 4-0 nylon vertical mattress stitches. Dressing was applied in the form of xeroform 4 x 4, web roll and an carson wrap. Tourniquet was let down there is no intraoperative complications patient tolerated the procedure well and was transferred to the PACU. All counts were correct.
--- NOTE | 2021-07-02 07:40 | EX.PCM.DISCH ---
Discharge Instructions Diet Discharge Diet: No restrictions Activity Additional Activity Instructions:: Ice and elevate operative extremity next 72 hours. Keep dressing on clean and dry for 48 hours then may remove and allow warm soapy water to rinse over incision but do not submerge until sutures are out. Then apply bandaid over incision and change daily. encourage finger range of motion. Not lift more than 1/2 pound. Minimize narcotic use only as needed and directed, may use OTC NSAID and Tylenol to supplement/substitute for pain control. May continue to take home dosage of Percocet for pain control Dressing / Incision Call your doctor if you observe: Shortness of breath and Chest pain Follow Up Care Please Follow Up With: Jenelle When: 2 weeks Test Results: Test results from this visit will be discussed in further detail at your follow-up appointment, if applicable. Discharge Plan Admission Attending Provider: Stephen Almanzar Primary Care Provider: Leia Matute Discharge Orders/Prescriptions Prescriptions: No Action oxycodone-acetaminophen 7.5-325 mg tablet 1 tab PO Q6H PRN PRN (Reason: Pain) Qty: 84 RF: 0 cholecalciferol (vitamin D3) 125 mcg (5,000 unit) capsule 125 mcg PO DAILY RF: 0 fluticasone propionate 50 mcg/actuation spray,suspension 2 spray intranasal PRN PRN (Reason: ALLERGIES) RF: 0 ibuprofen 200 mg capsule 200 mg PO Q6H PRN (Reason: Pain) RF: 0 multivitamin 1 EACH tablet 1 ea PO DAILY RF: 0 docusate sodium [Colace] 100 mg Capsule 100 mg PO PRN PRN (Reason: STOOL SOFTNER) RF: 0 alendronate [Fosamax] 70 mg tablet 1 tab PO QWEEK RF: 0 linaclotide 145 mcg capsule 145 mcg PO PRN PRN (Reason: STOOL) RF: 0 cetirizine 10 mg tablet 10 mg PO DAILY PRN PRN (Reason: Allergic Reaction) Qty: 90 RF: 2 Disposition Discharge Orders: Discharge Patient (Routine); Ordered 07/02/21 Ordered By: Dr. Stephen Almanzar
== END 2021-07-02 23:59 | disposition home or self-care (01) ==
LOC: SDC 05:40 → AC 05:40
PROVIDERS: PCP Internal Medicine; Referring Provider Orthopaedic Surgery; Visit Provider Orthopaedic Surgery
PROC: (CPT 64721; principal; 2021-07-02 07:00)
DX: G56.03 Carpal tunnel syndrome, bilateral upper limbs (principal); F41.9 Anxiety disorder, unspecified; G89.29 Other chronic pain; N81.0 Urethrocele; Z79.899 Other long term (current) drug therapy; Z87.891 Personal history of nicotine dependence
CPT/HCPCS: 64721; 01810; 87426; C9803; J7120

== ENCOUNTER 2021-07-17 12:24 | Outpatient (CLI) | payer MEDICARE, OTHER, SELFPAY ==
[2021-07-17 13:48] LABS: Amphetamine Urine VISTA NEGATIVE (<1000 ng/mL); Barbiturate Urine VISTA NEGATIVE (< 200 ng/mL); Benzodiazepine Urine VISTA NEGATIVE (< 200 ng/mL); Cocaine Urine VISTA NEGATIVE (< 300 ng/mL); Ecstacy Urine VISTA NEGATIVE (< 500 ng/mL); Methadone Urine VISTA NEGATIVE (< 300 ng/mL); PCP Urine VISTA NEGATIVE (< 25 ng/mL); THC Urine VISTA NEGATIVE (< 50 ng/mL)
[2021-07-17 13:49] LABS: Vista UDS pH Range 5
== END 2021-07-17 23:59 | disposition home or self-care (01) ==
LOC: LAB 12:26
PROVIDERS: PCP Internal Medicine; Referring Provider Anesthesiology Pain Medicine; Visit Provider Anesthesiology Pain Medicine
DX: F11.20 Opioid dependence, uncomplicated (principal)
CPT/HCPCS: 80307

== ENCOUNTER → 2021-08-23 | Outpatient (CLI) | payer MEDICARE, OTHER, SELFPAY ==
--- NOTE | 2021-08-23 11:15 | RAD_ITS ---
INDICATION: Shortness of breath, chest pain EXAMINATION/TECHNIQUE: X-RAY - XR Chest 2 Views COMPARISON: 05/04/2020. FINDINGS: Internal fixation of the lower cervical spine is seen. Right shoulder prosthesis seen in position. LINES/DEVICES: None. LUNGS: Peribronchial cuffing bilateral hilar prominence is seen. No consolidation, edema or effusion. No pneumothorax. MEDIASTINUM AND CARDIOVASCULAR STRUCTURES: Cardiac silhouette not enlarged. Central airways and mediastinal contour are unremarkable. BONES AND SOFT TISSUES: Unremarkable. RAD/Chest PA and Lateral IMPRESSION: Peribronchial cuffing bilateral hilar prominence is seen, would recommend clinical correlation for acute bronchitis or airway disease. Electronically Signed: Charli Evans MD at 15:27 EDT ,
== END | disposition home or self-care (01) ==
LOC: RAD 11:07
PROVIDERS: PCP Internal Medicine; Visit Provider Internal Medicine
DX: R06.02 Shortness of breath (principal)
CPT/HCPCS: 71046

== ENCOUNTER → 2021-09-09 | Outpatient (CLI) | payer MEDICARE, OTHER, SELFPAY ==
--- NOTE | 2021-09-09 09:30 | RAD_ITS ---
STUDY: X-RAY - RIGHT SHOULDER REASON FOR EXAM: Female, 70 years old. right neck, shoulder and rib pain TECHNIQUE: 4 view(s) of the shoulder. COMPARISON: None. FINDINGS: Status post right shoulder arthroplasty which appears intact. No evidence of hardware failure or loosening. No acute fracture or dislocation. Visualized right lung corbett clear. Normal soft tissues RAD/Shoulder min 2 Views IMPRESSION: Postsurgical changes of the right shoulder without acute findings Electronically Signed: Ricky Paredes DO at 1:52 EDT ,
--- NOTE | 2021-09-09 09:30 | RAD_ITS ---
STUDY: X-RAY - BILATERAL RIBS REASON FOR EXAM: Female, 70 years old. right neck, shoulder and rib pain TECHNIQUE: 3 view(s) of the ribs. COMPARISON: None. FINDINGS: Normal visualized ribs without a demonstrated fracture. C-spine hardware is noted. The visualized lungs are clear and expanded. Normal heart, mediastinum and pulmonary iris. Postsurgical change of the right shoulder RAD/Ribs Bilat 3V No CXR IMPRESSION: No acute findings Electronically Signed: Ricky Paredes DO at 2:44 EDT ,
--- NOTE | 2021-09-09 09:30 | RAD_ITS ---
STUDY: X-RAY - CERVICAL SPINE REASON FOR EXAM: Female, 70 years old. Right neck, shoulder and rib pain TECHNIQUE: 5 view(s) of the cervical spine were obtained. COMPARISON: Comparison is made with prior study dated 03/25/2021. FINDINGS: Normal anterior atlantoaxial articulation. Normal odontoid process. There is straightening of the normal cervical lordosis. Once again, the patient status post multilevel posterior laminectomy and fusion with screw and baldomero fixation devices. There is also evidence of anterior fusion with prosthetic disc at the C5-C7 level. Normal visualized intervertebral neuroforamina. The soft tissue structures are unremarkable. RAD/Cerv Spine 4 or 5 Views IMPRESSION: Stable examination. Electronically Signed: Naveed Shoemaker MD at 13:21 EDT ,
== END | disposition home or self-care (01) ==
LOC: RAD 09:15
PROVIDERS: PCP Internal Medicine; Referring Provider Physician Assistant; Visit Provider Physician Assistant
DX: R07.81 Pleurodynia (principal); M25.511 Pain in right shoulder; M54.2 Cervicalgia
CPT/HCPCS: 71110; 72050; 73030

== ENCOUNTER 2021-10-09 09:49 | Outpatient (CLI) | payer MEDICARE, OTHER, SELFPAY ==
[2021-10-09 12:16] LABS: Erythrocyte Sedimentation Rate 22 mm/hr (0-30)
[2021-10-09 12:18] LABS: Absolute Neutrophil Count 10.6 X10^3/uL (2.0-7.7); Basophil# 0.03 X10^3/uL; Basophil% 0.2 % (0-1); Eosinophil# 0.01 X10^3/uL; Eosinophils% 0.1 % (0-5); Hematocrit 33.4 % (37-47); Hemoglobin 11.5 g/dL (12.0-15.0); Mean Corp Hgb Conc 34.4 g/dL (32-36); Mean Corpuscular Hgb 32.2 pg (27.0-32.0); Mean Corpuscular Volume 93.6 fL (81-99); Mean Platelet Vol. 10.2 fl (6.2-12.0); Monocyte# 0.72 X10^3/uL; Monocyte% 5.8 % (0-10); NRBC Flagged by Analyzer 0 % (0-5); Neutrophil # 10.64 X10^3/uL (2.7-7.7); Neutrophil % 85.3 % (47-70); Platelet Count 345 K/mm3 (150-450); RBC Distribution Width CV 12.5 % (11.6-14.6); RBC Distribution Width SD 43.1 fl (35.1-43.9); Red Blood Count 3.57 M/mm3 (4.2-5.4); White Blood Count 12.5 K/mm3 (4.4-11.0)
[2021-10-09 12:30] LABS: ALB/GLOB Ratio 1.1 RATIO (0.9-2.4); AST(SGOT) 8 U/L (15-37); Alanine Aminotransfer ALT/SGPT 14 U/L (13-56); Albumin, Serum 3.7 g/dL (3.2-5.0); Alkaline Phosphatase 127 U/L (45-117); Anion Gap 6 (5-15); BUN 39 mg/dL (7-18); BUN/Creat Ratio 29.5 RATIO (10-20); CRP 4.75 mg/L (0.0-3.0); Calcium,Total 9.9 mg/dL (8.5-10.1); Chloride 104 mmol/L (98-107); Creatinine, Serum 1.32 mg/dL (0.55-1.02); EST Glomerular Filtration Rate 42 mL/min (>60); Est Glom Filt Rate - Afr Amer 51 mL/min (>60); Globulin 3.4 g/dL (2.2-4.2); Glucose 98 mg/dL (74-106); Potassium 4.5 mmol/L (3.5-5.1); Protein, Total 7.1 g/dL (6.4-8.2); Rheumatoid Factor < 10.0 IU/mL (<15); Sodium Level 136 mmol/L (136-145)
[2021-10-09 13:09] LABS: Hepatitis B Surface Antibody Non-Reactive; Hepatitis B Surface Antigen Non-Reactive (Nonreactive); Hepatitis C Antibody Non-Reactive (Nonreactive)
[2021-10-14 19:31] LABS: CCP IgG Antibodies 3 units (0-19)
== END 2021-10-09 23:59 | disposition home or self-care (01) ==
PROVIDERS: Referring Provider Internal Medicine Rheumatology; Visit Provider Internal Medicine Rheumatology
DX: M06.4 Inflammatory polyarthropathy (principal); Z79.899 Other long term (current) drug therapy; M79.7 Fibromyalgia; M19.041 Primary osteoarthritis, right hand; M81.0 Age-related osteoporosis without current pathological fracture; M48.02 Spinal stenosis, cervical region; M47.897 Other spondylosis, lumbosacral region; J30.2 Other seasonal allergic rhinitis
CPT/HCPCS: 36415; 80053; 85025; 85652; 86140; 86200; 86431; 86706; 86803; 87340

== ENCOUNTER → 2021-10-28 | Outpatient (CLI) | payer MEDICARE, OTHER, SELFPAY ==
--- NOTE | 2021-10-28 06:37 | MRI_ITS ---
EXAM: MR LUMBAR SPINE WITHOUT AND WITH INTRAVENOUS CONTRAST CLINICAL INDICATION: pain right leg /groin TECHNIQUE: Multiplanar and multisequence MR images of the lumbar spine without and with intravenous contrast. This report was created using Tanium report [employer] technology. CONTRAST: 9ml IV Dotarem COMPARISON: Lumbar radiograph October 04, 2021, MRI lumbar spine October 02, 2018 FINDINGS: VERTEBRAE: Accentuated lumbar lordosis again noted associated with stable grade 1 anterior listhesis of L4 on L5 and L5 on S1. Interpedicular screws remain in place at L4-5 and L5-S1. Laminectomy of L3, L4 and L5 again seen. No abnormal contrast enhancement. Vertebral body heights are preserved. SPINAL CORD: Unremarkable. Normal position and signal intensity of the conus medullaris. SOFT TISSUES: Unremarkable. DISCS/SPINAL CANAL/NEURAL FORAMINA: L1-2: Prominent disc osteophyte complex and facet arthropathy again noted resulting in mild to moderate narrowing of the spinal canal somewhat more prominent on the current exam. Moderate narrowing of the neural foramina related to bony hypertrophy. L2-3: Mild broad-based disc protrusion and facet arthropathy without significant impingement on the thecal sac. Severe bilateral neural foraminal stenosis related to the bony hypertrophy. Normal spinal canal and lateral recesses. L3-4: Mild disc protrusion and prominent facet arthropathy result in severe bilateral neural foraminal stenosis. No significant impingement on the thecal sac. Normal spinal canal and lateral recesses. L4-5: Grade 1-2 listhesis and facet arthropathy results in severe neural foraminal narrowing bilaterally. No significant impingement on the thecal sac. L5-S1: Grade 1 listhesis. Disc protrusion without impingement on the thecal sac. On the moderate narrowing of the right neural foramen related to the disc protrusion and facet arthropathy. Significant streak artifacts from the surgical hardware precludes evaluation of the left neural foramen. MRI/Spine Lumbar W/WO Contrast IMPRESSION: 1. Stable multilevel degenerative postoperative changes. 2. Mild to moderate spinal stenosis at L1-2. 3. Severe multilevel neural foraminal narrowing related to vertebral body hypertrophy and facet arthropathy. Electronically Signed: Zeeshan Bruno MD at 9:09 EDT ,
== END | disposition home or self-care (01) ==
LOC: MRI 06:37
PROVIDERS: PCP Family Medicine; Referring Provider Orthopaedic Surgery; Visit Provider Orthopaedic Surgery
DX: M54.50 Low back pain, unspecified (principal)
CPT/HCPCS: 72158; A9575

== ENCOUNTER → 2021-11-28 | Outpatient (CLI) | payer MEDICARE, OTHER, SELFPAY ==
--- NOTE | 2021-11-28 12:19 | CT_ITS ---
STUDY: CT SCAN LOWER EXTREMITY RIGHT REASON FOR EXAM: Female, 71 years old. Templating right ALFONSO. MELONIE protocol. RADIATION DOSAGE (If Supplied By Facility): CTDIvol = ( 9.65 ) mGy, DLP = ( 635.26 ) mGycm. Individualized dose optimization techniques were used for this CT.? TECHNIQUE: Multiple axial tomographic images of the right lower extremity were obtained. Coronal and sagittal reconstruction was obtained as well. COMPARISON: None. FINDINGS: Prior laminectomy and interpedicular screw fixation at the L4-L5 level. Grade 1 anterior listhesis of L5 on S1. The patient is status post left total hip replacement. Marked degree of joint space narrowing of the right hip joint with a subchondral geodes and marginal degenerative spurs in keeping with a marked degree of osteoarthritis of the right hip. Imaging of both knee joints was obtained. No significant abnormality is seen. CT/Extremity Lower without Contra IMPRESSION: Marked degree of the joint space narrowing involving the right hip joint with subchondral geodes. Status post left total hip replacement. Electronically Signed: Naveed Shoemaker MD at 15:10 EDT ,
== END | disposition home or self-care (01) ==
LOC: CT 12:09
PROVIDERS: PCP Family Medicine; Visit Provider Orthopaedic Surgery
DX: M16.11 Unilateral primary osteoarthritis, right hip (principal)
CPT/HCPCS: 73700

== ENCOUNTER 2021-12-10 06:25 | Inpatient (IN) | payer MEDICARE, OTHER, SELFPAY ==
--- NOTE | 2021-11-28 12:18 | EKG12_ITS ---
Test Reason : PRE OP Blood Pressure : / mmHG Vent. Rate : 087 BPM Atrial Rate : 087 BPM P-R Int : 182 ms QRS Dur : 078 ms QT Int : 346 ms P-R-T Axes : 077 008 054 degrees QTc Int : 416 ms Normal sinus rhythm Nonspecific T wave abnormality Abnormal ECG Confirmed by PHILIP MATA, RICKY ([id number]), editor newspaper FREDRICK LOPEZ ([id number]) on 12/02/2021 11:17:51 AM Referred By: ASHWINI Confirmed By:MOISES PALACIOS MD
[2021-11-28 12:26] LABS: Absolute Lymphocyte Count 1.33 X10^3/uL (0.83-4.51); Absolute Neutrophil Count 4.7 X10^3/uL (2.0-7.7); Basophil# 0.05 X10^3/uL; Basophil% 0.8 % (0-1); Eosinophil# 0.06 X10^3/uL; Eosinophils% 0.9 % (0-5); Hematocrit 31.7 % (37-47); Hemoglobin 11.1 g/dL (12.0-15.0); Lymphocyte # 1.33 X10^3/ul (0.83-4.51); Lymphocyte % 20.2 % (19-41); Mean Corpuscular Hgb 33.4 pg (27.0-32.0); Mean Corpuscular Volume 95.5 fL (81-99); Mean Platelet Vol. 9.1 fl (6.2-12.0); Monocyte# 0.41 X10^3/uL; Monocyte% 6.2 % (0-10); NRBC Flagged by Analyzer 0 % (0-5); Neutrophil # 4.72 X10^3/uL (2.7-7.7); Neutrophil % 71.7 % (47-70); Platelet Count 344 K/mm3 (150-450); RBC Distribution Width CV 13.3 % (11.6-14.6); RBC Distribution Width SD 47.1 fl (35.1-43.9); Red Blood Count 3.32 M/mm3 (4.2-5.4); White Blood Count 6.6 K/mm3 (4.4-11.0)
[2021-11-28 12:34] LABS: Prothrombin Time (Protime)PT. 13.1 SECONDS (11.7-14.9)
[2021-11-28 12:36] LABS: Partial Thromboplast Time 29.6 Seconds (24.1-36.2)
[2021-11-28 12:56] LABS: Anion Gap 9 (5-15); BUN 17 mg/dL (7-18); BUN/Creat Ratio 19.3 RATIO (10-20); Calcium,Total 9.9 mg/dL (8.5-10.1); Chloride 104 mmol/L (98-107); Creatinine, Serum 0.88 mg/dL (0.55-1.02); EST Glomerular Filtration Rate 67 mL/min (>60); Est Glom Filt Rate - Afr Amer 82 mL/min (>60); Glucose 105 mg/dL (74-106); Potassium 3.6 mmol/L (3.5-5.1); Sodium Level 137 mmol/L (136-145)
[2021-11-28 13:23] LABS: AST(SGOT) 17 U/L (15-37); Alanine Aminotransfer ALT/SGPT 14 U/L (13-56); Albumin, Serum 3.8 g/dL (3.2-5.0); Alkaline Phosphatase 97 U/L (45-117); Bilirubin, Direct 0.09 mg/dL (0.00-0.30); Globulin 3.4 g/dL (2.2-4.2); Magnesium 2.1 mg/dL (1.6-2.6); Protein, Total 7.2 g/dL (6.4-8.2)
[2021-11-29 10:27] LABS: Fructosamine 233 umol/L (0-285)
[2021-12-10] VITALS (22 sets, daily range): BP systolic 81–118; BP diastolic 52–77; PULSE 53–86; RESP 16–18; TEMP 36.2–37.1; O2SAT 94–100; BMI 21.1
--- NOTE | 2021-12-10 | HIP_PTH ---
PATIENT: DOUG REYES LOC: [facility] U#:[id number] AGE/SX: 71/F ROOM: AK314 RE12/10/[address]: Dr. Stephen Almanzar DO : 1950 BED: 1 DIS: 12/12/2021 SPEC #: [id number] RECD: 12/10/21 13:11 STATUS: FLORES RERachael #: [id number] MI: 12/10/21 00:[address]: Stephen Amlanzar DEPT: SURGICAL PATHOLOGY RECD BY: Khoa Porras ENTERED: 12/10/21 13:11 SP TYPE: TOTAL HIP OTHR DR: MD Mariangel Ewing, DO Tissues: Hip, NOS Procedures: Decalcification bone/plaque Surgery Specimen Level IV HEADER OPERATION: ERAS, total hip replacement robotic arm assist PRE-OP DIAGNOSIS: Right hip osteoarthritis TISSUE SUBMITTED: Bone and soft tissue right hip MICROSCOPIC DIAGNOSIS Right hip bone and soft tissue, total hip replacement/resection: Femoral head with degenerative osteoarthritic changes. A fragment of cartilaginous tissue and reactive synovial tissue. CHARLES:glibert 12/13/2021 MICROSCOPIC DESCRIPTION Slides are reviewed. GROSS DESCRIPTION Received is one container labeled with the patient's name and designated bone and soft tissue hip, right. The specimen consists of a deformed femoral head measuring 4 x 3.5 x 4.5 cm. Portion of femoral neck measures 1.5 cm in length. A piece of soft tissue is noted attached to the femoral head measuring 2 x 1.5 x 1 cm. The articular surface displays prominent osteophyte formation, eburnation and bone erosion. Also present in the specimen container are multiple irregular fragments of bone reamings measuring in aggregate 7 x 8 x 2 cm. Mailing Machine Operator sections are submitted in two cassettes as follows: 1 - soft tissue, 2 - bone after decalcification. / CHARLES:gilbert 12/10/2021 TC:5 CPT: 04021, 03704
--- NOTE | 2021-12-10 07:12 | PCM.HP.BLA ---
History and Physical Date of Admission: 12/10/21 [facility] [address] [place] [address] OFFICE VISIT Date of Service:? 11/08/21 MR#: [id number] Acct: [id number] Name:DOUG VELAZQUEZ Rep #: [id number] : 1950 ? ? Provider: Dr. Stephen Almanzar, DO Age/Sex:? 71/F ? ? Location: [facility] Status: Signed Intake Intake Visit Reasons:?RIGHT HIP Chief Complaint: pain Allergies grass pollen Allergy (Intermediate, Verified 11/08/21 09:21) sinus issues Medications multivitamin 1 ea PO DAILY supplement 07/03/17 [History Confirmed 11/08/21] oxycodone-acetaminophen 7.5 mg-325 mg tablet 1 tab PO Q6H PRN PRN Pain #84 tabs 11/09/18 [History Confirmed 11/08/21] cholecalciferol (vitamin D3) 125 mcg (5,000 unit) capsule 125 mcg PO DAILY 02/15/21 [History Confirmed 11/08/21] fluticasone propionate 50 mcg/actuation nasal spray,suspension 2 spray intranasal PRN PRN ALLERGIES 02/15/21 [History Confirmed 11/08/21] ibuprofen 200 mg capsule 200 mg PO Q6H PRN Pain 02/15/21 [History Confirmed 11/08/21] cetirizine 10 mg tablet 10 mg PO DAILY PRN PRN Allergic Reaction #90 tabs 05/20/21 [Rx Confirmed 11/08/21] alendronate 70 mg tablet (Fosamax) 1 tab PO QWEEK 06/27/21 [History Confirmed 11/08/21] docusate sodium 100 mg capsule (Colace) 100 mg PO PRN PRN STOOL SOFTNER 06/27/21 [History Confirmed 11/08/21] linaclotide 145 mcg capsule 145 mcg PO PRN PRN STOOL 06/27/21 [History Confirmed 11/08/21] cyclobenzaprine 10 mg tablet 10 mg PO TID PRN muscle spasm #30 tabs 10/04/21 [Rx Confirmed 11/08/21] methylprednisolone 4 mg tablets in a dose pack (Medrol (Jaron)) See Rx Instructions PO PER PKG DIR #21 tabs 10/04/21 [Rx Confirmed 11/08/21] PFSH Medical History? Anemia Arthritis Atypical chest pain Back pain Bilateral knee pain Chronic back pain Constipation Former smoker Headache, migraine Health care maintenance History of pain when walking History of steroid therapy Knee fracture, right Muscular pain Osteoarthritis Osteoporosis Osteoporosis Patellar fracture Post-menopausal Seasonal allergies Shortness of breath Wears dentures Wears glasses Surgical History? H/O shoulder replacement History of back surgery History of hip replacement, total Hx of hemorrhoidectomy S/P cervical spinal fusion S/P cervical spinal fusion Family History? Father Hypertension Arthritis CVA (cerebral vascular accident)Mother CVA (cerebral vascular accident) Hypertension Alcoholism Social History? Smoking Status:? Former smoker alcohol intake:? never substance use type:? does not use what type of physical activity do you participate in:? walking frequency:? daily HPI RIGHT HIP Details: Parts of this documentation were recorded by a scribe, this documentation accurately reflects the service provided and the decisions made by me, Dr. Stephen Almanzar, DO 11/08/21 0915. DOUG REYES is a 71 year old F here today for right leg and hip pain. Pt states the pain is just getting worse. Pt states she has a MRI on of her lumbar spine. Pt states she can hardly walk and has to use a walker all the time and is unable to get anywhere without holding onto something. Pt states she has significant groin pain. Pt states pain is all throughout her leg down mid leg and describes the pain as a throbbing. Pt states she is unable to describe the pain because it's so severe. Pt states 3-4 months ago she had a pain that started in her arm and radiated all the way down her leg and felt like nerve pain. ? Ortho Exam General General: Yes no acute distress Neurologic: Yes alert and Yes oriented x3 Psychologic: Yes reasonable and appropriate Right Hip Skin: No Ecchymosis, No soft tissue swelling and No Erythema HIP: Motion does reproduce severe groin pain and buttock pain with some radiation there is limited hip range of motion intact sensation to light touch throughout good pulses no edema able to plantar flex and dorsiflex against resistance Coding Level of Care Code Off vis,est,level 4 Assessment and Plan Plan Details Additional Comments: We had a thorough discussion with the patient and her family member today about multiple sources of her pain.? She does have OA of her right hip and she is a candidate for total hip arthroplasty we did send her to the spine surgeon who does not recommend any surgery for her spine I explained that I do not believe a hip replacement will alleviate the pain that is radiating down her leg.? I explained that the likelihood that it will help with the groin and deep buttock pain.? She is aware and she does wish to proceed. Risks, benefits and alternatives of surgery reviewed including but not limited to bleeding, infection, nerve, artery and/or tissue damage, fracture, VTE, leg length discrepancy, dislocation, need for hip precautions, continued pain and expected post-operative course.? She is also having increased risk for intraoperative fracture with her osteoporosis she is being treated for this.? Pt aware she will need abx prior to any dental procedures and not to take any NSAID's 7 days prior to surgery and not for 3 weeks after surgery. The patient understands all the risks and does wish to proceed with written consent. All questions answered. 11/08/21 1033 <Electronically signed by Stephen Amlanzar DO> Date Stephen Almanzar DO I have re-examined the patient. There are no clinical changes since date of exam
[2021-12-10] MEDS: Lactated Ringers 1,000 ML 999 ML IV (07:35)
[2021-12-10] MEDS: Acetaminophen 500 MG Tablet 1000 MG PO ×3 (07:44→22:00)
[2021-12-10] MEDS: Gabapentin 600 MG Tablet PO (07:44)
[2021-12-10] MEDS: Scopolamine 1mg/72hr Patch 1 PATCH TD (07:46)
--- NOTE | 2021-12-10 08:49 | OP.PCM_ITS ---
Operative Report Date of Procedure: 12/10/21 Preoperative diagnosis: Right hip DJD Postoperative diagnosis: Same Procedure: CT-guided Makoplasty assisted left total hip arthroplasty Implants: Leroy Accolade II stem size 5, 127 degree neck angle +5 neck length 48 mm Trident II acetabular shell with with a 32 mm ceramic head and 2 can cellous screws 40 mm and 15 mm Anesthesia: General EBL: 175 cc Complications: None Condition: Stable to PACU Indication for procedure: This is a 71-year-old female who has had long-standing arthrosis of the hip who has failed conservative treatment and wished to undergo total hip arthroplasty. We did discuss operative versus nonoperative intervention including risks of bleeding, infection , nerve artery tissue damage, need for further surgery, fracture, leg length discrepancy dislocation blood clot and need for postoperative physical therapy and postoperative expectations. An informed consent was signed. Procedure: Patient was met in the preoperative holding area once again the operative extremity was identified by both patient and physician and was marked. Patient was met by anesthesia . Anesthesia was started. patient was then positioned in the lateral decubitus position on a well-padded pegboard with an axillary roll. All bony prominences were checked and padded. The patient was prepped and draped in the usual sterile fashion. A timeout was called to ensure the proper patient procedure and extremity were being contemplated. Anatomic landmarks were palpated and marked for a standard posterior lateral approach. Prior to this the ASIS was palpated and 3 fingerbreadths proximal to this 3 pins were placed at a 45 degree angle into the iliac crest with good purchase, stab incisions were made with a 15 blade into the skin prior to placement. The Makoplasty array was then secured. A 10 blade scalpel was used to make a posterior incision through the skin and subcutaneous tissue. retractors were used and electrocautery was used to maintain meticulous hemostasis and dissect full-thickness flaps until the gluteal fascia was reached. The gluteal fascia was incised in line with the gluteal fibers. The bursal tissue was then freed from the underside and a Charnley retractor was placed. The femoral trochanteric checkpoint was placed and leg length was assessed using the trochanteric checkpoint and an EKG lead that was placed on the knee prior to prepping the leg .the fat pad was then elevated off of the external rotators with electrocautery and the external rotators were dissected off of the greater trochanter including the piriformis and were tagged with #1 Ethibond for later repair. The joint capsule opened with posterior trapdoor technique. The hip was surgically dislocated. The measurement on the preoperative CT from the top of the lesser trochanter to the femoral neck cut was marked Hohmann was placed around the lesser trochanter. A neck cutting guide was used to arthur the neck with a Bovie and an oscillating saw was used complete the femoral neck cut. The femoral head was then removed and sized. We then turned our attention to the acetabulum. A Bovie was used to make a perforation in the anterior joint capsule and a Pandya retractor was placed this was repeated in the 6 o'clock position and a wide víctor was placed there. With a long handled knife the labral and pulvinar tissue were removed. We then registered the acetabulum with the pointing array and confirmed our landmarks. Once the socket was thoroughly prepared and labral tissue and pulvinar was removed we single reamed with the robotic arm. We then used the robotic arm to position the acetabular implant and impacted it into place under robotic guidance. We then proceeded to place a posterior superior screw by drilling first measuring and inserting the screw x2. We then inserted a trial liner. And turned our attention back to the femur at this point a femoral elevator was used. As well as a pointed wide Hohmann around the lesser trochanter and a Hohmann to help retract the gluteus medius. A box chisel was used to remove excess lateral neck followed by a canal finder and a lateralizing reamer. This was followed by sequential broaches. Attention was made of the version within the canal based on preoperative templating. Once the final broach was seated we then trialed reduced the hip it was determined that a 127 degree neck angle with a +5 neck length was the appropriate size. We then checked stability with shuck testing as well as flexion and internal rotation. then proceeded with hip extension and checked leg lengths at the knees and heels as well as with the trochanteric checkpoint and knee EKG lead. Although is 4 mm longer than the contralateral contralateral hip was already replaced and was short if I were to even out the legs according to the Stevie the right hip would have been too short so we left it 4 mm longer than the contralateral. At this point trials were removed. A liner was inserted to the cup. The femoral stem was inserted. We re-trialed and then proceeded to impact the femoral head onto the Deven taper. We then surgically reduce the hip check stability again and leg lengths and were satisfied. Betadine rinse was allowed to sit for 5 minutes while everyone changed their gloves. Thorough irrigation was performed. Followed by closure of the external rotators with #2 FiberWire followed by closure of gluteal fascia with #1 Ethibond. 0 Vicryl fat stitches and 2-0 Vicryl subcutaneous stitches and berta in the skin. Berta were placed in the pin sites over the iliac crest with Mepilex dressing. dressing was applied to incisional area with Mepilex Ag and an abduction pillow was placed. Patient tolerated the procedure well there was no intraoperative complications all counts were correct and the patient was brought back to the PACU in stable condition
[2021-12-10 09:36] LABS: Bedside Glucose 115 mg/dL (74-106)
[2021-12-10] MEDS: Cefazolin 2 GM in 0.9% Normal Saline 100 ML IV (09:36)
[2021-12-10] MEDS: dexAMETHasone 10 MG/ML Vial IV (10:33)
--- NOTE | 2021-12-10 12:17 | RAD_ITS ---
STUDY: X-RAY - PELVIS AND RIGHT HIP REASON FOR EXAM: Female, 71 years old. Post Op -- AP both hips on single gissel/lateral of op hip PACU TECHNIQUE: 2 views of the pelvis and hip. COMPARISON: Comparison is made with prior examination the third 2021. FINDINGS: The patient is status post right total hip replacement. There is good alignment. Postoperative soft tissue changes. RAD/Hip Min 2 Views (Portable) IMPRESSION: Status post right total hip replacement. There is good alignment. Postoperative soft tissue changes. Electronically Signed: Naveed Shoemaker MD at 12:57 EDT ,
[2021-12-10] MEDS: Lactated Ringers 1,000 ML 125 ML IV (13:09)
[2021-12-10] MEDS: Cefazolin 1 GM/50 ML BAG IV ×2 (13:40→22:00)
[2021-12-10] MEDS: oxyCODONE 5 MG Tablet PO ×2 (15:52→20:00)
[2021-12-10] MEDS: Senna/Docusate Sodium 1 Tablet 2 TABLET PO (22:00)
[2021-12-11 02:25] VITALS: BP 100/63; PULSE 80; RESP 16; TEMP 37.3; O2SAT 99
[2021-12-11] MEDS: oxyCODONE 5 MG Tablet PO ×5 (02:30→19:40)
[2021-12-11] MEDS: APIXABAN 2.5 MG TABLET PO ×2 (06:37→21:48)
[2021-12-11] MEDS: 0.9% Saline Lock 10 ML Syringe IV (06:37)
[2021-12-11] MEDS: Acetaminophen 500 MG Tablet 1000 MG PO ×3 (06:37→21:48)
[2021-12-11] MEDS: Cefazolin 1 GM/50 ML BAG IV (06:37)
[2021-12-11 07:12] LABS: Hematocrit 24.7 % (37-47); Hemoglobin 8.4 g/dL (12.0-15.0); Mean Corpuscular Hgb 32.9 pg (27.0-32.0); Mean Corpuscular Volume 96.9 fL (81-99); Mean Platelet Vol. 9.4 fl (6.2-12.0); Platelet Count 313 K/mm3 (150-450); RBC Distribution Width CV 13.2 % (11.6-14.6); RBC Distribution Width SD 46.9 fl (35.1-43.9); Red Blood Count 2.55 M/mm3 (4.2-5.4)
[2021-12-11 07:44] LABS: Anion Gap 7 (5-15); BUN 11 mg/dL (7-18); BUN/Creat Ratio 14.9 RATIO (10-20); Calcium,Total 9.2 mg/dL (8.5-10.1); Chloride 104 mmol/L (98-107); Creatinine, Serum 0.74 mg/dL (0.55-1.02); EST Glomerular Filtration Rate 82 mL/min (>60); Est Glom Filt Rate - Afr Amer 100 mL/min (>60); Estimated Creatinine Clearance 37.32 ml/min; Glucose 119 mg/dL (74-106); Sodium Level 136 mmol/L (136-145)
[2021-12-11 08:24] VITALS: BP 86/51; PULSE 91; RESP 16; TEMP 37.2; O2SAT 97
--- NOTE | 2021-12-11 10:00 | CASEMGMT ---
GREGORIA ETIENNE Face to Face with patient for initial transition planning/care coordination assessment. GREGORIA ETIENNE introduced self and role at [facility]. Patient sitting in chair, alert and oriented. Patient willing to participate in assessment and is able to answer all questions appropriately. Care providers, pharmacy, and demographics verified. Patient wishes to discharge home and has outpatient therapy scheduled at [facility]. Patient states she has no further needs or concerns at this time. CM to follow for discharge planning needs that may arise. PCP: Dean Specialists: Jenelle, ortho; Basali, pain [facility] Benefit: yes Living Will/HPOA: Patient believes it is her son Yogi Huff LNOK: son, daughter Living Arrangements: patient lives alone in a first floor apartment with no steps to enter. Patient states she is independent at home. Transportation: [employer] [facility] [employer] DME/C: Patient states she has rollator, cane, grab bars, and shower chair at home. Patient was scheduled for outpatient therapy for Wednesday 12/13 but patient rescheduled for 12/19. GREGORIA ETIENNE encouraged patient to have therapy soon as it will better for her recovery. GREGORIA ETIENNE assisted patient in rescheduling initial eval at [facility] for 12/17 at 1000 when the [facility] Van could provide transport for patient. GREGORIA ETIENNE updated patient and discharge plan with new therapy appt. Disposition Plan: Patient to discharge home with outpatient therapy, family support, and follow-up plans in place. Suzy CHOWDHURY, RN, CM
[2021-12-11 10:31] VITALS: BP 95/63; PULSE 99; RESP 18; TEMP 36.8; O2SAT 99
[2021-12-11] MEDS: Cholecalciferol (Vit D3) 125 MCG CAPSULE (5,000 UNITS) PO (10:34)
[2021-12-11] MEDS: Senna/Docusate Sodium 1 Tablet 2 TABLET PO ×2 (10:34→21:48)
--- NOTE | 2021-12-11 14:13 | PCM.PN.ORT ---
Subjective Subjective Patient sleeping upon entering room I did arouse her and she states her pain is significant in the right hip and leg. She denies fevers chills nausea vomiting shortness of breath or chest pain. She did get up briefly with physical therapy this morning but did not ambulate the halls. Objective Data Objective Data Vital Signs: Vital Signs Temp Pulse Resp BP Pulse Ox O2 Del Method O2 Flow Rate 98.2 F 99 18 95/63 99 Room Air 4 12/11/21 10:31 12/11/21 10:31 12/11/21 10:31 12/11/21 10:31 12/11/21 10:31 12/11/21 10:12/10/21 15:00 Oxygen Flow Rate (L/min) 4 Oxygen Delivery Method Room Air Weight: 101 lb Body Mass Index (BMI) 21.1 Intake & Output: Intake and Output for Last 24 Hours 12/09/21 12/10/21 12/11/21 23:59 23:59 23:59 Intake Total 2207.0 / 2207.0 778.75 / 778.75 Balance 2207.0 / 2207.0 778.75 / 778.75 Lab / Micro Data Result Diagrams: 12/11/21 06:20 12/11/21 06:20 Labs: Laboratory Results - last 24 hr 12/11/21 06:20: WBC 12.0 H, RBC 2.55 L, Hgb 8.4 L, Hct 24.7 L, MCV 96.9, MCH 32.9 H, MCHC 34.0, RDW Std Deviation 46.9 H, RDW Coeff of Nilsa 13.2, Plt Count 313, MPV 9.4 12/11/21 06:20: Sodium 136, Potassium 4.0, Chloride 104, Carbon Dioxide 25.0, Anion Gap 7, BUN 11, Creatinine 0.74, Estim Creat Clear Calc 37.32, Est GFR (MDRD) Af Amer 100, Est GFR (MDRD) Non-Af 82, BUN/Creatinine Ratio 14.9, Glucose 119 H, Calcium 9.2 Micro: Microbiology 11/28/21 12:09 Interface Orders Nasal Screen MRSA/MSSA - Final Physical Exam Const alert, oriented x3 and no apparent distress General Appearance: cooperative Extremity Extremity Narrative: Right hip dressings clean dry and intact compartments soft neurovascular intact right lower extremity EHL tibialis anterior gastrocsoleus compartments soft Assessment & Plan Assessment/Plan (1) Orthopedic aftercare: PLAN: Patient was on narcotics preoperatively 7.5 mg of Percocet therefore she might have some tolerance I will increase her to 15 mg of oxycodone every 4 hours I think she will benefit from some additional physical therapy in addition her blood pressure was low postoperatively we will give her a bolus of normal saline 500 cc with plans for likely discharge tomorrow.
[2021-12-11 14:23] VITALS: BP 117/60; PULSE 97; RESP 16; TEMP 36.9; O2SAT 99
[2021-12-11 21:44] VITALS: BP 109/65; PULSE 94; RESP 16; TEMP 37.4; O2SAT 97
[2021-12-12 03:34] VITALS: BP 99/59; PULSE 94; RESP 18; TEMP 37.2; O2SAT 95
[2021-12-12] MEDS: oxyCODONE 5 MG Tablet PO ×2 (03:38→10:34)
[2021-12-12] MEDS: Alendronate Sodium 70 MG Tablet PO (05:56)
[2021-12-12] MEDS: Acetaminophen 500 MG Tablet 1000 MG PO (05:56)
[2021-12-12 06:55] LABS: Hematocrit 24.1 % (37-47); Hemoglobin 7.9 g/dL (12.0-15.0); Mean Corp Hgb Conc 32.8 g/dL (32-36); Mean Corpuscular Hgb 32.5 pg (27.0-32.0); Mean Corpuscular Volume 99.2 fL (81-99); Mean Platelet Vol. 9.6 fl (6.2-12.0); Platelet Count 298 K/mm3 (150-450); RBC Distribution Width CV 13.3 % (11.6-14.6); RBC Distribution Width SD 48.9 fl (35.1-43.9); Red Blood Count 2.43 M/mm3 (4.2-5.4); White Blood Count 11.5 K/mm3 (4.4-11.0)
--- NOTE | 2021-12-12 07:28 | PCM.PN.ORT ---
Subjective Subjective Patient seen and examined. Denies fevers chills nausea vomiting shortness of breath or chest pain. She states she is still having pain in her right hip and leg. Objective Data Objective Data Vital Signs: Vital Signs Temp Pulse Resp BP Pulse Ox O2 Del Method O2 Flow Rate 98.9 F 94 18 99/59 L 95 Room Air 4 12/12/21 03:34 12/12/21 03:34 12/12/21 03:34 12/12/21 03:34 12/12/21 03:34 12/12/21 03:34 12/10/21 15:00 Oxygen Flow Rate (L/min) 4 Oxygen Delivery Method Room Air Weight: 101 lb Body Mass Index (BMI) 21.1 Intake & Output: Intake and Output for Last 24 Hours 12/10/21 12/11/21 12/12/21 23:59 23:59 23:59 Intake Total 2207.0 / 2207.0 1678.75 / 1678.75 600 / 600 Balance 2207.0 / 2207.0 1678.75 / 1678.75 600 / 600 Lab / Micro Data Result Diagrams: 12/12/21 06:05 12/11/21 06:20 Labs: Laboratory Results - last 24 hr 12/11/21 06:20: Sodium 136, Potassium 4.0, Chloride 104, Carbon Dioxide 25.0, Anion Gap 7, BUN 11, Creatinine 0.74, Estim Creat Clear Calc 37.32, Est GFR (MDRD) Af Amer 100, Est GFR (MDRD) Non-Af 82, BUN/Creatinine Ratio 14.9, Glucose 119 H, Calcium 9.2 12/12/21 06:05: WBC 11.5 H, RBC 2.43 L, Hgb 7.9 L, Hct 24.1 L, MCV 99.2 H, MCH 32.5 H, MCHC 32.8, RDW Std Deviation 48.9 H, RDW Coeff of Nilsa 13.3, Plt Count 298, MPV 9.6 Micro: Microbiology 11/28/21 12:09 Interface Orders Nasal Screen MRSA/MSSA - Final Physical Exam Const alert, oriented x3 and no apparent distress Extremity Extremity Narrative: Right hip dressings clean dry and intact compartments soft neurovascular intact right lower extremity EHL tibialis anterior gastrocsoleus intact station to light touch palpable pedal pulses Assessment & Plan Assessment/Plan (1) S/P total right hip arthroplasty: PLAN: Plan Postop day #2 right total hip arthroplasty History of narcotic use Increased oxycodone to 3 tablets 15 mg every 4 hours Vital signs improved DC home begin outpatient physical therapy as scheduled Hip precautions Eliquis 2.5 mg twice daily for 3 weeks Follow-up in the office 2 weeks
--- NOTE | 2021-12-12 07:31 | PCM.DC ---
Discharge Instructions Dressing / Incision Call your doctor if you observe: Shortness of breath and Chest pain Additional Dressing/Incision Instructions:: Do not shower 72hrs. Begin daily showering warm water antibacterial soap postop day #3( 72hrs Post-operatively) and then daily. Leave the dressing on for 72 hours postoperatively then may remove prior to first shower and change dressing daily after this until no drainage for 2 consecutive days then may leave open to air. Follow hip precautions that were reviewed in hospital. Wear compression stockings, may remove at night. Start physical therapy as directed in hospital. Follow prescriptions instructions do not take any other pain medication or differ dosing without consulting your physician. Do not take oral NSAIDs until blood thinner has been completed , then may begin the day after completion if needed . Call Dr. Almanzar's office with any concerns. Follow Up Care Please Follow Up With: Stephen Almanzar DO When: 2 weeks Test Results: Test results from this visit will be discussed in further detail at your follow-up appointment, if applicable. Discharge Plan Admission Admit Date/Time: 12/10/21 06:25 Primary Reason for Your Visit: Right total hip arthroplasty Attending Provider: Stephen Almanzar Primary Care Provider: Mariangel Hopper Consulting Providers: Amado Wong Discharge Orders/Prescriptions Prescriptions: New Eliquis 2.5 mg Tablet 2.5 mg PO BID Qty: 42 0RF acetaminophen 500 mg Tablet 1,000 mg PO Q8 Qty: 100 0RF oxycodone 5 mg tablet 10 - 15 mg PO Q4H PRN (Reason: pain) 4 Days Qty: 60 0RF Continued cholecalciferol (vitamin D3) 125 mcg (5,000 unit) capsule 125 mcg PO DAILY fluticasone propionate 50 mcg/actuation spray,suspension 2 spray intranasal PRN PRN (Reason: ALLERGIES) multivitamin 1 EACH tablet 1 ea PO DAILY Label Comments: supplement alendronate [Fosamax] 70 mg tablet 1 tab PO QWEEK Linzess 145 mcg capsule 145 mcg PO PRN PRN (Reason: STOOL) hydroxychloroquine 200 mg Tablet 200 mg PO DAILY cetirizine 10 mg tablet 10 mg PO DAILY PRN PRN (Reason: Allergic Reaction) Qty: 90 2RF Discontinued oxycodone-acetaminophen 7.5-325 mg tablet 1 tab PO 4X/DAY PRN PRN (Reason: Pain) Label Comments: take 1 tablet by mouth four times a day for 28 DAYS Other Ambulatory Orders: 12 Lead EKG (Routine) Timeframe: [id number] Location: None Selected Ordered By: Dr. Stephen Almanzar Referrals / Follow Up: [facility] [Outside] - 12/17/21 10:00 am (Hospital Van will pick you up at 9:30am) Mariangel Hopper DO [Primary Care Provider] - Disposition Disposition (needs filled in before D/C Order can be placed): Home, Self Care
--- NOTE | 2021-12-12 07:41 | PCM.DC.SUM ---
Providers Date of Admission: 12/10/21 Primary Care Physician: Mariangel Hopper DO Reason For Visit: RT TOTAL HIP W MELONIE Diagnosis Discharge Diagnosis (1) S/P total right hip arthroplasty: Status: Acute Code(s): Z96.641 - Presence of right artificial hip joint Plan Postop day #2 right total hip arthroplasty History of narcotic use Increased oxycodone to 3 tablets 15 mg every 4 hours Vital signs improved DC home begin outpatient physical therapy as scheduled Hip precautions Eliquis 2.5 mg twice daily for 3 weeks Follow-up in the office 2 weeks Medications at Discharge Home Medications multivitamin 1 ea PO DAILY supplement 07/03/17 cholecalciferol (vitamin D3) 125 mcg (5,000 unit) capsule 125 mcg PO DAILY supplement 02/15/21 fluticasone propionate 50 mcg/actuation nasal spray,suspension 2 spray intranasal PRN PRN ALLERGIES 02/15/21 cetirizine 10 mg tablet 10 mg PO DAILY PRN PRN Allergic Reaction #90 tabs 05/20/21 alendronate 70 mg tablet (Fosamax) 1 tab PO QWEEK Check with primary doctor 06/27/21 linaclotide 145 mcg capsule (Linzess) 145 mcg PO PRN PRN STOOL 06/27/21 hydroxychloroquine 200 mg tablet 200 mg PO DAILY arthritis 11/26/21 acetaminophen 500 mg tablet 1,000 mg PO Q8 #100 tabs 12/12/21 apixaban 2.5 mg tablet (Eliquis) 2.5 mg PO BID #42 tabs 12/12/21 oxycodone 5 mg tablet 10 - 15 mg PO Q4H PRN pain 4 days #60 tabs 12/12/21 Hospital Course Operations total hip replacement Summary of Care Provided Hospital Course: Patient with long-standing history of severe right hip DJD who is failed conservative treatment. Patient has history of narcotic use 7.5 mg Percocet every 4 hours preoperatively and has built a narcotic tolerance. patient underwent right total hip arthroplasty day of admission. Patient did receive pre-and postoperative antibiotics which were discontinued within 23 hours postoperatively. Patient did receive general anesthesia and postoperatively her pain was controlled with both IV and p.o. pain medication. I did have to increase her oxycodone to 15 mg every 4 hours postoperatively and upon discharge. patient did receive 2 g of tranexamic acid. Her hemoglobin and hematocrit were monitored postoperatively as well as her vital signs and she did not require any blood transfusion. She did require a postop bolus of normal saline as she had systolics in the low 90s however she did not have any symptoms with this her blood pressure did improve with this. dressing will be changed daily beginning postop day #3 before shower will be removed and replaced after. Pt was started on Eliquis 2.5 mg twice daily postop day #1 for which will continue for 3 weeks post hospital discharge . Patient was seen by physical therapy was ambulating the halls well. patient will be discharged We will start outpatient physical as scheduled. will follow-up in the office in 2 weeks. No intrahospital complications. Weight / BMI Weight Weight: 101 lb Body Mass Index (BMI) 21.1 ABG / Lab / Microbiology Data Result Diagrams: 12/12/21 06:05 12/11/21 06:20 Laboratory: Laboratory Results - last 24 hr 12/11/21 06:20: Sodium 136, Potassium 4.0, Chloride 104, Carbon Dioxide 25.0, Anion Gap 7, BUN 11, Creatinine 0.74, Estim Creat Clear Calc 37.32, Est GFR (MDRD) Af Amer 100, Est GFR (MDRD) Non-Af 82, BUN/Creatinine Ratio 14.9, Glucose 119 H, Calcium 9.2 12/12/21 06:05: WBC 11.5 H, RBC 2.43 L, Hgb 7.9 L, Hct 24.1 L, MCV 99.2 H, MCH 32.5 H, MCHC 32.8, RDW Std Deviation 48.9 H, RDW Coeff of Nilsa 13.3, Plt Count 298, MPV 9.6 Microbiology: Microbiology 11/28/21 12:09 Interface Orders Nasal Screen MRSA/MSSA - Final D/C Instructions Call your doctor if you observe: Shortness of breath and Chest pain Additional Dressing/Incision Instructions: Do not shower 72hrs. Begin daily showering warm water antibacterial soap postop day #3( 72hrs Post-operatively) and then daily. Leave the dressing on for 72 hours postoperatively then may remove prior to first shower and change dressing daily after this until no drainage for 2 consecutive days then may leave open to air. Follow hip precautions that were reviewed in hospital. Wear compression stockings, may remove at night. Start physical therapy as directed in hospital. Follow prescriptions instructions do not take any other pain medication or differ dosing without consulting your physician. Do not take oral NSAIDs until blood thinner has been completed , then may begin the day after completion if needed . Call Dr. Almanzar's office with any concerns. Please Follow Up With: Stephen Almanzar DO When: 2 weeks Meaningful Use Info Meaningful Use Diagnoses (Choose all that apply): None applicable Discharge Plan Admission Admit Date/Time: 12/10/21 06:25 Primary Reason for Your Visit: Right total hip arthroplasty Attending Provider: Stephen Almanzar Primary Care Provider: Mariangel Hopper Consulting Providers: Amado Wong Discharge Orders/Prescriptions Prescriptions: New Eliquis 2.5 mg Tablet 2.5 mg PO BID Qty: 42 0RF acetaminophen 500 mg Tablet 1,000 mg PO Q8 Qty: 100 0RF oxycodone 5 mg tablet 10 - 15 mg PO Q4H PRN (Reason: pain) 4 Days Qty: 60 0RF Continued cholecalciferol (vitamin D3) 125 mcg (5,000 unit) capsule 125 mcg PO DAILY fluticasone propionate 50 mcg/actuation spray,suspension 2 spray intranasal PRN PRN (Reason: ALLERGIES) multivitamin 1 EACH tablet 1 ea PO DAILY Label Comments: supplement alendronate [Fosamax] 70 mg tablet 1 tab PO QWEEK Linzess 145 mcg capsule 145 mcg PO PRN PRN (Reason: STOOL) hydroxychloroquine 200 mg Tablet 200 mg PO DAILY cetirizine 10 mg tablet 10 mg PO DAILY PRN PRN (Reason: Allergic Reaction) Qty: 90 2RF Discontinued oxycodone-acetaminophen 7.5-325 mg tablet 1 tab PO 4X/DAY PRN PRN (Reason: Pain) Label Comments: take 1 tablet by mouth four times a day for 28 DAYS Other Ambulatory Orders: 12 Lead EKG (Routine) Timeframe: [id number] Location: None Selected Ordered By: Dr. Stephen Almanzar Referrals / Follow Up: [facility] [Outside] - 12/17/21 10:00 am (Hospital Van will pick you up at 9:30am) Mariangel Hopper DO [Primary Care Provider] - Disposition Disposition (needs filled in before D/C Order can be placed): Home, Self Care
--- NOTE | 2021-12-12 09:11 | NURSING ---
received message from case mgmt that retail pharmacy had called with concerns that Dr. Almanzar had ordered oxyir at [place] but patient was already prescribed oxyir 7.5mg 4x/day by Dr. Christianson. discussed with primary RN. Dr. Almanzar paged, received return call, stated that he had discussed with patient and had given patient instructions not to be taking medication prescribed by Dr. Christianson at this time that the dose she was being discharged with would be higher. primary RN informed.
[2021-12-12 10:00] VITALS: BP 96/55; PULSE 94; RESP 18; TEMP 36.9; O2SAT 97
[2021-12-12] MEDS: APIXABAN 2.5 MG TABLET PO (10:29)
[2021-12-12] MEDS: Senna/Docusate Sodium 1 Tablet 2 TABLET PO (10:29)
[2021-12-12] MEDS: Cholecalciferol (Vit D3) 125 MCG CAPSULE (5,000 UNITS) PO (10:30)
== END 2021-12-12 11:46 | disposition home or self-care (01) | DRG 470 ==
LOC: ACINP 06:26 → MS3 12:47
PROVIDERS: Anesthesiology; Admitting Provider Orthopaedic Surgery; PCP Family Medicine; Visit Provider Orthopaedic Surgery
PROC: 8E0Y0CZ Robotic Assisted Procedure of Lower Extremity, Open Approach (ICD-10-PCS; CPT 27130; principal; 2021-12-10 08:30)
DX: M16.11 Unilateral primary osteoarthritis, right hip (principal); M81.0 Age-related osteoporosis without current pathological fracture; Z78.0 Asymptomatic menopausal state; Z96.641 Presence of right artificial hip joint; Z96.611 Presence of right artificial shoulder joint; Z87.891 Personal history of nicotine dependence
CPT/HCPCS: 36415; 73502; 80048; 80076; 82962; 82985; 83735; 85025; 85027; 85610; 85730; 86850; 86900; 86901; 87077; 87081; 88305; 88311; 93005; 97110; 97116; 97162; 97166; 97530; 97535; 99251; C1776; J7040; J7120; A4216; G0463; J2405; J3475

== ENCOUNTER 2021-12-24 10:30 | Outpatient (RCR) | payer MEDICARE, OTHER, SELFPAY ==
--- NOTE | 2021-12-17 13:03 | HP.PTEVAL_ITS ---
Patient's Visit Information DOUG REYES is a 71 year old F referred to Physical Therapy by Dr. Stephen Almanzar DO with a diagnosis of R ALFONSO 12-10-21. Date of Evaluation: 12/17/21 Physical Therapist: AMANDO Cole - Visit Plan Frequency: 1-3X/ week Duration: 2 Months Plan: 1-3X/ week for 6 weeks for R hip and knee strengthening, gait training, functional transfers such as stairs and sit to stand with HEP. HEP: B QS, upright gait with rollator with heel to toe pattern and straight R knee with heel strike. - Subjective Pt had THR on 12-10-21. She got out of the hospital on Thursday. She was having pain in the hospital and her R hip hurts but her R knee hurts still and that is what she went to the Dr for. She has been using her rollator for [address] said that her R knee has arthritis. On 2020 and she fell walking to the mailbox and overwalked into a curb and tore face and knee up. She let it go for 5 days and she went to the hospital for x-ray and was badly bruised. But a second x-ray showed a knee fracture. She saw Dr Tomlinson and they did a catscan and they said knee surgery and she said no cause she was starting to walk on it and she had a puppy. Her knee has really been hurting and x-rayed it and it showed arthritis and he x-rayed her hip and needed a THR. She also Dr Zhang and said it was not her back and back to Dr Almanzar and they did a hip replacement. She lives alone. She drives but is not driving today. She has no steps in her home. She has tried some steps at the hospital. She is not doing any exercise as she was not given ok. She had a L THR a year ago and got a long great. She reports that she never sleeps. R hip pain is 8/10 on oxycodone 3 a day. - Pain R hip pain Pain Intensity (Out of 10): 8 - Objective Gait: walks with a rollator with R knee flexion and decrease stance time on the R LE and a flexed trunk. Adjusted the patients rollator as the arms on the rollator were too short and causing the patient to hunch over. Worked on walking with heel to toe gait pattern and not R knee flexion and she was able to walk with a more normal gait pattern and take the pressure off the R knee. TUG 12.5. R hip flex AROM 90 degrees. R hip ext AROM -5 degrees from neutral. R hip flex MMT 4.4# and L 7.5#. R hip ext 1.2# and L hip ext 8# - Balance/Special Test Scores Lower Extremity Functional Score: 24 WOMAC Total Score: 55 WOMAC Percentatge: 42.7100 - Goals Goal 1:: I HEP Goal Time Frame: 6-8 Weeks Goal 2:: Be able to walk with heel to toe gait pattern with upright posture with equal stance time with least restrictive device Goal Time Frame: 6-8 Weeks Goal 3:: Increase R hip flex and ext strength (at time of the eval 4.4# and 1.2# ) Goal Time Frame: 6-8 Weeks Goal 4:: Be able to go up and down the stairs recip with 1-2 hand rails for safety Goal Time Frame: 6-8 Weeks - Rehabilitation Potential Rehabilitation Potential: Good - Anticipated Interventions Patient/Client Instruction: Educate patient on: Condition, Plan of Care For the Purpose of:: To decrease pain, To increase ROM, To improve nutrient delivery to tissue, To improve muscle performance and motor function, To improve ability to perform ADL's, To increase tolerance to activity/condition/position, To improve performance and independence with ADL's, To decrease level of supervision to perform tasks, To improve ability of physical actions for home/community/work/leisure, To improve gait and locomotor functions, To decrease soft tissue restriction, To increase flexibility/ROM, To improve endurance, To improve safety with gait Therapeutic Exercise to Include: Strength training, Endurance training, Balance training, Coordination, Postural training, Flexibilty training, Gait and locomotor training, Neuromotor development, Active ROM For the Purpose of:: To decrease pain, To increase ROM, To improve nutrient delivery to tissue, To increase oxygenation perfusion, To improve muscle performance and motor function, To improve ability to perform ADL's, To increase tolerance to activity/condition/position, To improve performance and independence with ADL's, To decrease level of supervision to perform tasks, To improve ability of physical actions for home/community/work/leisure, To improve health of tissue, To decrease soft tissue restriction, To increase flexibility/ROM, To improve endurance, To improve balance Functional Training to Include: Gait training For the Purpose of:: To improve gait and locomotor functions, To improve safety with gait Thank you for the opportunity to evaluate your patient. For Medicare and Medicare HMO plans, please review the plan of care and approve it. It will need to be FAXED BACK to us at [phone] for Medicare purposes. For Medicare only, by signing this I certify the plan of care. Please let me know if there are questions or concerns regarding this plan of care. Physician Signature: Date:
--- NOTE | 2022-04-21 09:02 | HP.PT.NRP ---
DOUG REYES was seen in my office for initial evaluation on 12/17/21. The following Plan of Care was established for this patient: Initial Frequency: 1-3X/ week Initial Duration: 2 Months Patient/Client Instruction: Educate patient on: Condition, Plan of Care For the Purpose of:: To decrease pain, To increase ROM, To improve nutrient delivery to tissue, To improve muscle performance and motor function, To improve ability to perform ADL's, To increase tolerance to activity/condition/position, To improve performance and independence with ADL's, To decrease level of supervision to perform tasks, To improve ability of physical actions for home/community/work/leisure, To improve gait and locomotor functions, To decrease soft tissue restriction, To increase flexibility/ROM, To improve endurance, To improve safety with gait Therapeutic Exercise to Include: Strength training, Endurance training, Balance training, Coordination, Postural training, Flexibilty training, Gait and locomotor training, Neuromotor development, Active ROM For the Purpose of:: To decrease pain, To increase ROM, To improve nutrient delivery to tissue, To increase oxygenation perfusion, To improve muscle performance and motor function, To improve ability to perform ADL's, To increase tolerance to activity/condition/position, To improve performance and independence with ADL's, To decrease level of supervision to perform tasks, To improve ability of physical actions for home/community/work/leisure, To improve health of tissue, To decrease soft tissue restriction, To increase flexibility/ROM, To improve endurance, To improve balance Functional Training to Include: Gait training For the Purpose of:: To improve gait and locomotor functions, To improve safety with gait This patient was last seen in our office 12/24/21. Pertinent comments regarding their Physical therapy will appear below: [facility] PT At this point I will be discontinuing this patient from physical therapy. I would be happy to see this patient again in the future if found appropriate by the physician. Thank you! Marleni Landers, AMANDO Balance/Gait/Functional tests - Balance/Special Test Scores Lower Extremity Functional Score: 24 WOMAC Total Score: 55 WOMAC Percentage: 42.7100
== END 2021-12-24 19:00 | disposition home or self-care (01) ==
LOC: PT 10:30
PROVIDERS: PCP Family Medicine; Referring Provider Orthopaedic Surgery; Visit Provider Orthopaedic Surgery
DX: M75.42 Impingement syndrome of left shoulder (principal)
CPT/HCPCS: 97110; 97162

== ENCOUNTER → 2022-01-15 | Outpatient (CLI) | payer MEDICARE, OTHER, SELFPAY ==
[2022-01-15 10:05] LABS: Absolute Lymphocyte Count 2.52 X10^3/uL (0.83-4.51); Absolute Neutrophil Count 2.6 X10^3/uL (2.0-7.7); Basophil# 0.07 X10^3/uL; Basophil% 1.2 % (0-1); Eosinophil# 0.14 X10^3/uL; Eosinophils% 2.4 % (0-5); Hematocrit 30.9 % (37-47); Lymphocyte # 2.52 X10^3/ul (0.83-4.51); Mean Corp Hgb Conc 32.4 g/dL (32-36); Mean Corpuscular Hgb 32.5 pg (27.0-32.0); Mean Corpuscular Volume 100.3 fL (81-99); Mean Platelet Vol. 9.6 fl (6.2-12.0); Monocyte# 0.54 X10^3/uL; Monocyte% 9.2 % (0-10); NRBC Flagged by Analyzer 0 % (0-5); Neutrophil # 2.58 X10^3/uL (2.7-7.7); Platelet Count 319 K/mm3 (150-450); RBC Distribution Width CV 12.8 % (11.6-14.6); RBC Distribution Width SD 46.8 fl (35.1-43.9); Red Blood Count 3.08 M/mm3 (4.2-5.4); White Blood Count 5.9 K/mm3 (4.4-11.0)
[2022-01-15 10:48] LABS: ALB/GLOB Ratio 1.1 RATIO (0.9-2.4); AST(SGOT) 14 U/L (15-37); Alanine Aminotransfer ALT/SGPT 14 U/L (13-56); Albumin, Serum 3.7 g/dL (3.2-5.0); Alkaline Phosphatase 110 U/L (45-117); Anion Gap 8 (5-15); BUN 16 mg/dL (7-18); BUN/Creat Ratio 16.8 RATIO (10-20); Calcium,Total 9.5 mg/dL (8.5-10.1); Chloride 107 mmol/L (98-107); Creatinine, Serum 0.95 mg/dL (0.55-1.02); EST Glomerular Filtration Rate 61 mL/min (>60); Est Glom Filt Rate - Afr Amer 74 mL/min (>60); Globulin 3.3 g/dL (2.2-4.2); Glucose 81 mg/dL (74-106); Potassium 4.2 mmol/L (3.5-5.1); Sodium Level 141 mmol/L (136-145)
== END | disposition home or self-care (01) ==
LOC: MTLAB 08:42
PROVIDERS: PCP Family Medicine; Referring Provider Internal Medicine Rheumatology; Visit Provider Internal Medicine Rheumatology
DX: M06.4 Inflammatory polyarthropathy (principal); M79.7 Fibromyalgia; M19.041 Primary osteoarthritis, right hand; M81.0 Age-related osteoporosis without current pathological fracture; M48.02 Spinal stenosis, cervical region; M47.897 Other spondylosis, lumbosacral region; J30.2 Other seasonal allergic rhinitis; Z79.899 Other long term (current) drug therapy
CPT/HCPCS: 36415; 80053; 85025

== ENCOUNTER → 2022-02-25 | Outpatient (CLI) | payer MEDICARE, OTHER, SELFPAY ==
--- NOTE | 2022-02-25 09:34 | EKG12_ITS ---
Test Reason : PRE-OP Blood Pressure : / mmHG Vent. Rate : 078 BPM Atrial Rate : 078 BPM P-R Int : 130 ms QRS Dur : 078 ms QT Int : 358 ms P-R-T Axes : 051 -04 -07 degrees QTc Int : 408 ms Normal sinus rhythm with sinus arrhythmia Normal ECG Confirmed by HECTOR MATA, ANNABELLE ([id number]), market editor FREDRICK LOPEZ ([id number]) on 02/26/2022 11:05:50 AM Referred By: Tj Leigh Confirmed By:ANNABELLE YOUNG MD
[2022-02-25 10:26] LABS: Hematocrit 32.4 % (37-47); Hemoglobin 10.6 g/dL (12.0-15.0); Mean Corp Hgb Conc 32.7 g/dL (32-36); Mean Corpuscular Hgb 31.8 pg (27.0-32.0); Mean Corpuscular Volume 97.3 fL (81-99); Mean Platelet Vol. 9.3 fl (6.2-12.0); Platelet Count 334 K/mm3 (150-450); RBC Distribution Width CV 13.2 % (11.6-14.6); RBC Distribution Width SD 45.6 fl (35.1-43.9); Red Blood Count 3.33 M/mm3 (4.2-5.4); White Blood Count 7.7 K/mm3 (4.4-11.0)
[2022-02-25 10:56] LABS: Anion Gap 5 (5-15); BUN 18 mg/dL (7-18); BUN/Creat Ratio 17.6 RATIO (10-20); Calcium,Total 9.3 mg/dL (8.5-10.1); Chloride 106 mmol/L (98-107); Creatinine, Serum 1.02 mg/dL (0.55-1.02); EST Glomerular Filtration Rate 57 mL/min (>60); Est Glom Filt Rate - Afr Amer 69 mL/min (>60); Glucose 87 mg/dL (74-106); Potassium 4.4 mmol/L (3.5-5.1); Sodium Level 139 mmol/L (136-145)
== END | disposition home or self-care (01) ==
PROVIDERS: PCP Family Medicine; Referring Provider Physician Assistant Surgical; Visit Provider Physician Assistant Surgical
DX: Z01.810 Encounter for preprocedural cardiovascular examination (principal); Z01.818 Encounter for other preprocedural examination
CPT/HCPCS: 36415; 80048; 85027; 93005

== ENCOUNTER → 2022-03-05 | Outpatient (CLI) | payer MEDICARE, OTHER, SELFPAY ==
[2022-03-05 13:47] LABS: Amphetamine Urine VISTA NEGATIVE (<1000 ng/mL); Barbiturate Urine VISTA NEGATIVE (< 200 ng/mL); Benzodiazepine Urine VISTA NEGATIVE (< 200 ng/mL); Cocaine Urine VISTA NEGATIVE (< 300 ng/mL); Ecstacy Urine VISTA NEGATIVE (< 500 ng/mL); Methadone Urine VISTA NEGATIVE (< 300 ng/mL); PCP Urine VISTA NEGATIVE (< 25 ng/mL); THC Urine VISTA NEGATIVE (< 50 ng/mL); Vista UDS pH Range 6
== END | disposition home or self-care (01) ==
PROVIDERS: PCP Family Medicine; Referring Provider Anesthesiology Pain Medicine; Visit Provider Anesthesiology Pain Medicine
DX: F11.20 Opioid dependence, uncomplicated (principal)
CPT/HCPCS: 80307

== ENCOUNTER → 2022-03-14 | Outpatient (CLI) | payer MEDICARE, OTHER, SELFPAY ==
[2022-03-14 15:04] LABS: Absolute Lymphocyte Count 0.66 X10^3/uL (0.83-4.51); Absolute Neutrophil Count 12.2 X10^3/uL (2.0-7.7); Basophil# 0.01 X10^3/uL; Basophil% 0.1 % (0-1); Eosinophil# 0.01 X10^3/uL; Eosinophils% 0.1 % (0-5); Hematocrit 32.8 % (37-47); Hemoglobin 10.3 g/dL (12.0-15.0); Lymphocyte # 0.66 X10^3/ul (0.83-4.51); Mean Corp Hgb Conc 31.4 g/dL (32-36); Mean Corpuscular Hgb 30.9 pg (27.0-32.0); Mean Corpuscular Volume 98.5 fL (81-99); Mean Platelet Vol. 10.1 fl (6.2-12.0); Monocyte% 2.3 % (0-10); NRBC Flagged by Analyzer 0 % (0-5); Neutrophil # 12.16 X10^3/uL (2.7-7.7); Platelet Count 320 K/mm3 (150-450); RBC Distribution Width CV 14.4 % (11.6-14.6); RBC Distribution Width SD 50.5 fl (35.1-43.9); Red Blood Count 3.33 M/mm3 (4.2-5.4); White Blood Count 13.2 K/mm3 (4.4-11.0)
[2022-03-14 18:14] LABS: ALB/GLOB Ratio 1.1 RATIO (0.9-2.4); AST(SGOT) 15 U/L (15-37); Alanine Aminotransfer ALT/SGPT 20 U/L (13-56); Albumin, Serum 3.7 g/dL (3.2-5.0); Alkaline Phosphatase 94 U/L (45-117); Anion Gap 10 (5-15); BUN 17 mg/dL (7-18); BUN/Creat Ratio 18.8 RATIO (10-20); Calcium,Total 9.5 mg/dL (8.5-10.1); Chloride 104 mmol/L (98-107); Creatinine, Serum 0.91 mg/dL (0.55-1.02); EST Glomerular Filtration Rate 65 mL/min (>60); Est Glom Filt Rate - Afr Amer 79 mL/min (>60); Globulin 3.4 g/dL (2.2-4.2); Glucose 91 mg/dL (74-106); Potassium 4.7 mmol/L (3.5-5.1); Protein, Total 7.1 g/dL (6.4-8.2); Sodium Level 137 mmol/L (136-145)
== END | disposition home or self-care (01) ==
LOC: MTLAB 12:49
PROVIDERS: PCP Family Medicine; Referring Provider Internal Medicine Rheumatology; Visit Provider Internal Medicine Rheumatology
DX: M06.4 Inflammatory polyarthropathy (principal); M79.7 Fibromyalgia; Z79.899 Other long term (current) drug therapy
CPT/HCPCS: 36415; 80053; 85025

== ENCOUNTER → 2022-03-17 | Outpatient (CLI) | payer MEDICARE, OTHER, SELFPAY ==
--- NOTE | 2022-03-17 10:48 | VDLE_ITS ---
Reason For Study: RLE PAIN RIGHT LEFT GSV is normal. CFV is compressible, spontaneous, phasic, CFV is compressible, spontaneous, phasic, competent, and demonstrates normal competent and demonstrates normal augmentation. augmentation. FV is compressible, spontaneous, phasic, competent and demonstrates normal augmentation. POP V is compressible, spontaneous, phasic, competent and demonstrates normal augmentation. T/P Trunk is compressible. PTV is compressible. RT PerV is compressible. NON-vascular structure noted in RT Pop Fossa space measuring 2.88 x .76. Procedure This is a venous duplex using B-mode, color flow and spectral Doppler. Exam performed in department. A preliminary report was called and/or faxed to Dr. Tomlinson @ [phone] @ 11:30 am. VL/Venous Duplex US, Unilateral Interpretation Summary Deep veins of the right lower extremity are patent and compressible segmentally . There is no evidence of right lower extremity deep vein thrombosis. Valvular competence juanita ears intact within the proximal deep venous system on the right . The right great saphenous vein a ppears patent and compressible segmentally. A non-vascular structure is noted in the right poplit eal space, measuring 2.88 cm x 0.76 cm. This may represent a popliteal cyst. Clinical correlation is advised. Ordering Physician: Steve Tomlinson Referring Physician: Mariangel Hopper Performed By: Inna Conley, RDCS, RVT
== END | disposition home or self-care (01) ==
LOC: CVS 10:46
PROVIDERS: PCP Family Medicine; Visit Provider Specialist
DX: M79.661 Pain in right lower leg (principal)
CPT/HCPCS: 93971

== ENCOUNTER → 2022-04-30 | Outpatient (CLI) | payer MEDICARE, OTHER, SELFPAY ==
--- NOTE | 2022-04-30 11:39 | RAD_ITS ---
INDICATION: Right shoulder pain EXAMINATION/TECHNIQUE: X-RAY - RIGHT XR Shoulder Min 2 Views 4 VIEWS COMPARISON: 09/09/2021 FINDINGS: SOFT TISSUES: No soft tissue swelling or gas. No unexpected radiopaque foreign body. BONES/JOINTS: No acute fracture or subluxation. Shoulder arthroplasty redemonstrated without lucency to suggest loosening. Irregularity at the greater tuberosity redemonstrated. Similar acromioclavicular DJD. Demineralized bones. RAD/Shoulder min 2 Views IMPRESSION: No acute abnormal finding. Electronically Signed: Claudy Irby MD at 23:06 EST ,
--- NOTE | 2022-04-30 11:39 | RAD_ITS ---
INDICATION: Left shoulder pain EXAMINATION/TECHNIQUE: X-RAY - LEFT XR Shoulder Min 2 Views 4 VIEWS COMPARISON: None. FINDINGS: SOFT TISSUES: No soft tissue swelling or gas. No radiopaque foreign body. BONES/JOINTS: No acute fracture or subluxation. Normal alignment. Glenohumeral osteophytes. Acromioclavicular osteophytes. Greater tuberosity subcortical cysts. Demineralized bones RAD/Shoulder min 2 Views IMPRESSION: Glenohumeral and acromioclavicular DJD. Suspect rotator cuff tendinopathy. Electronically Signed: Claudy Irby MD at 23:02 EST ,
== END | disposition home or self-care (01) ==
LOC: RAD 11:38
PROVIDERS: PCP Family Medicine; Referring Provider Anesthesiology Pain Medicine; Visit Provider Anesthesiology Pain Medicine
DX: M25.511 Pain in right shoulder (principal); M25.512 Pain in left shoulder
CPT/HCPCS: 73030

== ENCOUNTER → 2022-05-08 | Outpatient (CLI) | payer MEDICARE, OTHER, SELFPAY ==
[2022-05-08 12:18] LABS: Absolute Lymphocyte Count 0.78 X10^3/uL (0.83-4.51); Absolute Neutrophil Count 9.8 X10^3/uL (2.0-7.7); Basophil# 0.04 X10^3/uL; Basophil% 0.4 % (0-1); Hemoglobin 10.8 g/dL (12.0-15.0); Lymphocyte # 0.78 X10^3/ul (0.83-4.51); Lymphocyte % 7.1 % (19-41); Mean Corp Hgb Conc 32.7 g/dL (32-36); Mean Corpuscular Hgb 32.1 pg (27.0-32.0); Mean Corpuscular Volume 98.2 fL (81-99); Monocyte# 0.24 X10^3/uL; Monocyte% 2.2 % (0-10); NRBC Flagged by Analyzer 0 % (0-5); Neutrophil # 9.77 X10^3/uL (2.7-7.7); Neutrophil % 88.3 % (47-70); Platelet Count 307 K/mm3 (150-450); RBC Distribution Width SD 57.7 fl (35.1-43.9); Red Blood Count 3.36 M/mm3 (4.2-5.4); White Blood Count 11.1 K/mm3 (4.4-11.0)
[2022-05-08 12:47] LABS: ALB/GLOB Ratio 1.2 RATIO (0.9-2.4); AST(SGOT) 8 U/L (15-37); Alanine Aminotransfer ALT/SGPT 17 U/L (13-56); Albumin, Serum 3.8 g/dL (3.2-5.0); Alkaline Phosphatase 84 U/L (45-117); Anion Gap 9 (5-15); BUN 17 mg/dL (7-18); BUN/Creat Ratio 13.2 RATIO (10-20); Calcium,Total 9.8 mg/dL (8.5-10.1); Chloride 106 mmol/L (98-107); Creatinine, Serum 1.29 mg/dL (0.55-1.02); EST Glomerular Filtration Rate 43 mL/min (>60); Est Glom Filt Rate - Afr Amer 52 mL/min (>60); Globulin 3.2 g/dL (2.2-4.2); Glucose 113 mg/dL (74-106); Potassium 4.6 mmol/L (3.5-5.1); Sodium Level 140 mmol/L (136-145)
== END | disposition home or self-care (01) ==
LOC: MTLAB 10:57
PROVIDERS: PCP Family Medicine; Referring Provider Internal Medicine Rheumatology; Visit Provider Internal Medicine Rheumatology
DX: M06.4 Inflammatory polyarthropathy (principal); M79.7 Fibromyalgia; M19.041 Primary osteoarthritis, right hand; M81.0 Age-related osteoporosis without current pathological fracture; M48.02 Spinal stenosis, cervical region; M47.897 Other spondylosis, lumbosacral region; J30.2 Other seasonal allergic rhinitis; Z79.899 Other long term (current) drug therapy
CPT/HCPCS: 36415; 80053; 85025

== ENCOUNTER → 2022-06-11 | Outpatient (CLI) | payer MEDICARE, OTHER, SELFPAY ==
[2022-06-11 10:30] LABS: ALB/GLOB Ratio 1.2 RATIO (0.9-2.4); AST(SGOT) 15 U/L (15-37); Alanine Aminotransfer ALT/SGPT 16 U/L (13-56); Albumin, Serum 3.8 g/dL (3.2-5.0); Alkaline Phosphatase 86 U/L (45-117); Anion Gap 7 (5-15); BUN 17 mg/dL (7-18); BUN/Creat Ratio 18.6 RATIO (10-20); Calcium,Total 9.3 mg/dL (8.5-10.1); Chloride 108 mmol/L (98-107); Creatinine, Serum 0.92 mg/dL (0.55-1.02); EST Glomerular Filtration Rate 64 mL/min (>60); Est Glom Filt Rate - Afr Amer 78 mL/min (>60); Globulin 3.3 g/dL (2.2-4.2); Glucose 95 mg/dL (74-106); Potassium 4.1 mmol/L (3.5-5.1); Protein, Total 7.1 g/dL (6.4-8.2); Sodium Level 143 mmol/L (136-145)
== END | disposition home or self-care (01) ==
LOC: LAB 09:43
PROVIDERS: PCP Family Medicine; Referring Provider Internal Medicine Rheumatology; Visit Provider Internal Medicine Rheumatology
DX: M06.4 Inflammatory polyarthropathy (principal); M79.7 Fibromyalgia; M19.041 Primary osteoarthritis, right hand; M81.0 Age-related osteoporosis without current pathological fracture; M48.02 Spinal stenosis, cervical region; M47.897 Other spondylosis, lumbosacral region; J30.2 Other seasonal allergic rhinitis; Z79.899 Other long term (current) drug therapy
CPT/HCPCS: 36415; 80053

== ENCOUNTER → 2022-08-04 | Outpatient (CLI) | payer MEDICARE, OTHER, SELFPAY ==
[2022-08-04 10:25] LABS: Absolute Lymphocyte Count 0.86 X10^3/uL (0.83-4.51); Absolute Neutrophil Count 10.7 X10^3/uL (2.0-7.7); Basophil# 0.04 X10^3/uL; Basophil% 0.3 % (0-1); Eosinophil# 0.02 X10^3/uL; Eosinophils% 0.2 % (0-5); Hematocrit 36.6 % (37-47); Hemoglobin 12.1 g/dL (12.0-15.0); Lymphocyte # 0.86 X10^3/ul (0.83-4.51); Lymphocyte % 7.2 % (19-41); Mean Corp Hgb Conc 33.1 g/dL (32-36); Mean Corpuscular Hgb 32.3 pg (27.0-32.0); Mean Corpuscular Volume 97.6 fL (81-99); Mean Platelet Vol. 10.1 fl (6.2-12.0); Monocyte# 0.17 X10^3/uL; Monocyte% 1.4 % (0-10); NRBC Flagged by Analyzer 0 % (0-5); Neutrophil # 10.74 X10^3/uL (2.7-7.7); Neutrophil % 90.4 % (47-70); Platelet Count 290 K/mm3 (150-450); RBC Distribution Width CV 14.1 % (11.6-14.6); RBC Distribution Width SD 49.7 fl (35.1-43.9); Red Blood Count 3.75 M/mm3 (4.2-5.4); White Blood Count 11.9 K/mm3 (4.4-11.0)
[2022-08-04 10:55] LABS: ALB/GLOB Ratio 1.2 RATIO (0.9-2.4); AST(SGOT) 16 U/L (15-37); Alanine Aminotransfer ALT/SGPT 19 U/L (13-56); Albumin, Serum 3.8 g/dL (3.2-5.0); Alkaline Phosphatase 85 U/L (45-117); Anion Gap 6 (5-15); BUN 22 mg/dL (7-18); BUN/Creat Ratio 23.7 RATIO (10-20); Calcium,Total 9.7 mg/dL (8.5-10.1); Chloride 107 mmol/L (98-107); Creatinine, Serum 0.93 mg/dL (0.55-1.02); EST Glomerular Filtration Rate 63 mL/min (>60); Est Glom Filt Rate - Afr Amer 77 mL/min (>60); Globulin 3.3 g/dL (2.2-4.2); Glucose 99 mg/dL (74-106); Protein, Total 7.1 g/dL (6.4-8.2); Sodium Level 138 mmol/L (136-145)
== END | disposition home or self-care (01) ==
LOC: MTLAB 09:21
PROVIDERS: PCP Family Medicine; Referring Provider Internal Medicine Rheumatology; Visit Provider Internal Medicine Rheumatology
DX: M06.4 Inflammatory polyarthropathy (principal); Z79.899 Other long term (current) drug therapy
CPT/HCPCS: 36415; 80053; 85025

== ENCOUNTER → 2022-08-06 | Outpatient (CLI) | payer MEDICARE, OTHER, SELFPAY ==
[2022-08-06 14:42] LABS: Amphetamine Urine VISTA NEGATIVE (<1000 ng/mL); Barbiturate Urine VISTA NEGATIVE (< 200 ng/mL); Benzodiazepine Urine VISTA NEGATIVE (< 200 ng/mL); Cocaine Urine VISTA NEGATIVE (< 300 ng/mL); Ecstacy Urine VISTA NEGATIVE (< 500 ng/mL); Methadone Urine VISTA NEGATIVE (< 300 ng/mL); PCP Urine VISTA NEGATIVE (< 25 ng/mL); THC Urine VISTA NEGATIVE (< 50 ng/mL); Vista UDS pH Range 7
== END | disposition home or self-care (01) ==
LOC: LAB 12:33
PROVIDERS: PCP Family Medicine; Referring Provider Anesthesiology Pain Medicine; Visit Provider Anesthesiology Pain Medicine
DX: F11.20 Opioid dependence, uncomplicated (principal)
CPT/HCPCS: 80307

== ENCOUNTER → 2022-08-28 | Outpatient (CLI) | payer MEDICARE, OTHER, SELFPAY ==
--- NOTE | 2022-08-28 07:45 | RAD_ITS ---
STUDY: X-RAY - ESOPHAGUS (BARIUM SWALLOW) WITH FLUOROSCOPY REASON FOR EXAM: Female, 71 years old. DYSPHAGIA TECHNIQUE: 17 view(s) of the esophagus were obtained following swallowing of barium. FLUOROSCOPY TIME (if supplied): (36 seconds) minutes/seconds. 9.39 mGy COMPARISON: None. FINDINGS: There is no demonstrated esophageal foreign body. There is no demonstrated stricture or mucosal abnormality. Tertiary contractions of the esophagus. There is narrowing of the distal esophagus at the gastroesophageal junction. The patient ingested a 12 mm tablet of barium. The tablet stopped at the gastroesophageal junction. Endoscopic correlation is recommended. There is atherosclerotic tortuosity of the aortic arch and descending thoracic aorta. Normal visualized pulmonary parenchyma. Prior fusion of the cervical spine. RAD/Esophagus Dual Contrast IMPRESSION: Tertiary contractions of the esophagus with narrowing at the gastroesophageal junction. The 12 mm tablet of barium is trapped at the gastroesophageal junction. Endoscopic correlation is recommended. Electronically Signed: Naveed Shoemaker MD at 15:14 EDT ,
== END | disposition home or self-care (01) ==
LOC: RAD 07:35
PROVIDERS: PCP Family Medicine; Referring Provider Otolaryngology; Visit Provider Otolaryngology
DX: R13.10 Dysphagia, unspecified (principal); K21.9 Gastro-esophageal reflux disease without esophagitis
CPT/HCPCS: 74221

== ENCOUNTER → 2022-10-03 | Outpatient (CLI) | payer MEDICARE, OTHER, SELFPAY ==
[2022-10-03 10:33] LABS: Absolute Lymphocyte Count 2.43 X10^3/uL (0.83-4.51); Absolute Neutrophil Count 4.4 X10^3/uL (2.0-7.7); Basophil# 0.05 X10^3/uL; Basophil% 0.7 % (0-1); Eosinophil# 0.11 X10^3/uL; Eosinophils% 1.5 % (0-5); Hematocrit 33.3 % (37-47); Hemoglobin 11.1 g/dL (12.0-15.0); Lymphocyte # 2.43 X10^3/ul (0.83-4.51); Lymphocyte % 32.1 % (19-41); Mean Corp Hgb Conc 33.3 g/dL (32-36); Mean Corpuscular Hgb 32.5 pg (27.0-32.0); Mean Corpuscular Volume 97.4 fL (81-99); Mean Platelet Vol. 9.9 fl (6.2-12.0); Monocyte# 0.56 X10^3/uL; Monocyte% 7.4 % (0-10); NRBC Flagged by Analyzer 0 % (0-5); Neutrophil # 4.39 X10^3/uL (2.7-7.7); Neutrophil % 57.9 % (47-70); Platelet Count 252 K/mm3 (150-450); RBC Distribution Width CV 14.8 % (11.6-14.6); RBC Distribution Width SD 52.3 fl (35.1-43.9); Red Blood Count 3.42 M/mm3 (4.2-5.4); White Blood Count 7.6 K/mm3 (4.4-11.0)
[2022-10-03 10:57] LABS: ALB/GLOB Ratio 1.2 RATIO (0.9-2.4); AST(SGOT) 17 U/L (15-37); Alanine Aminotransfer ALT/SGPT 16 U/L (13-56); Albumin, Serum 3.6 g/dL (3.2-5.0); Alkaline Phosphatase 137 U/L (45-117); Anion Gap 5 (5-15); BUN 12 mg/dL (7-18); BUN/Creat Ratio 12.8 RATIO (10-20); Chloride 109 mmol/L (98-107); Creatinine, Serum 0.94 mg/dL (0.55-1.02); EST Glomerular Filtration Rate 62 mL/min (>60); Est Glom Filt Rate - Afr Amer 76 mL/min (>60); Glucose 92 mg/dL (74-106); Potassium 3.6 mmol/L (3.5-5.1); Protein, Total 6.6 g/dL (6.4-8.2); Sodium Level 141 mmol/L (136-145)
== END | disposition home or self-care (01) ==
LOC: MTLAB 09:23
PROVIDERS: PCP Family Medicine; Referring Provider Internal Medicine Rheumatology; Visit Provider Internal Medicine Rheumatology
DX: M06.4 Inflammatory polyarthropathy (principal); M79.7 Fibromyalgia; Z79.899 Other long term (current) drug therapy
CPT/HCPCS: 36415; 80053; 85025

== ENCOUNTER → 2022-10-21 | Outpatient (CLI) | payer MEDICARE, OTHER, SELFPAY ==
--- NOTE | 2022-10-21 10:27 | BD_ITS ---
STUDY: DUAL ENERGY X-RAY ABSORPTIOMETRY / DXA REASON FOR EXAM: Female, 72 years old. 627.8Menopausal postmenopausal BONE DENSITY REASON FOR EXAM TECHNIQUE: Bone Mineral Density (BMD) measurements of lumbar spine and left forearm were obtained. COMPARISON: Comparison is made with prior study dated October 16, 2020. FINDINGS: Lumbar Spine (L1-L4): g/cm2 (0.893) / T-score (-0.8) / Z-score (1.3) Findings are suggestive of normal bone density with a low fracture risk. Left Forearm: g/cm2 (0.423) / T-score (-2.9) / Z-score (-0.7) The T-Scores on the most recent prior examination were: Lumbar Spine (L1-L4): There has been improvement of bone density since the previous examination. BD/Dexa Bone Density Study IMPRESSION: The patient is considered osteoporotic as outlined below according to World Willy Organization (WHO) criteria with a high fracture risk. There has been improvement of bone density since the previous examination. Reference Information: The T-score is the number of standard deviations above or below the standard which is normal for young adults at their peak bone mineral density. The World Health Organization (WHO) interprets the T-scores as follows: Above -1 Normal bone density Between -1 and -2.5 Osteopenia Equal to / or below -2.5 Osteoporosis As a practical clinical guideline, osteopenia may be graded as follows: Mild -1 through -1.5 Moderate -1.6 through -2.0 Severe -2.1 through -2.4 The Z-score is the number of standard deviations above or below age-matched controls. A Z-score of less than -1.5 would be considered abnormal. References: 1. NIH Osteoporosis and Related Bone Diseases www osteo.org 2. International Society for Clinical Densitometry www iscd.org 3. National Osteoporosis Foundation www nof.org Electronically Signed: Naveed Shoemaker MD at 12:39 EDT ,
== END | disposition home or self-care (01) ==
LOC: OPBD 10:16
PROVIDERS: PCP Family Medicine
DX: M85.80 Other specified disorders of bone density and structure, unspecified site (principal); M81.0 Age-related osteoporosis without current pathological fracture
CPT/HCPCS: 77080

== ENCOUNTER → 2022-11-19 | Outpatient (CLI) | payer MEDICARE, OTHER, SELFPAY ==
[2022-11-19 15:41] LABS: Absolute Lymphocyte Count 1.79 X10^3/uL (0.83-4.51); Absolute Neutrophil Count 4.1 X10^3/uL (2.0-7.7); Basophil# 0.06 X10^3/uL; Basophil% 0.9 % (0-1); Eosinophils% 1.5 % (0-5); Hematocrit 33.2 % (37-47); Hemoglobin 10.8 g/dL (12.0-15.0); Lymphocyte # 1.79 X10^3/ul (0.83-4.51); Lymphocyte % 26.9 % (19-41); Mean Corp Hgb Conc 32.5 g/dL (32-36); Mean Corpuscular Hgb 32.2 pg (27.0-32.0); Mean Corpuscular Volume 99.1 fL (81-99); Mean Platelet Vol. 10.2 fl (6.2-12.0); Monocyte# 0.59 X10^3/uL; Monocyte% 8.9 % (0-10); NRBC Flagged by Analyzer 0 % (0-5); Neutrophil % 61.6 % (47-70); Platelet Count 250 K/mm3 (150-450); RBC Distribution Width CV 14.3 % (11.6-14.6); RBC Distribution Width SD 51.5 fl (35.1-43.9); Red Blood Count 3.35 M/mm3 (4.2-5.4); White Blood Count 6.7 K/mm3 (4.4-11.0)
[2022-11-19 15:54] LABS: ALB/GLOB Ratio 1.4 RATIO (0.9-2.4); AST(SGOT) 22 U/L (15-37); Alanine Aminotransfer ALT/SGPT 28 U/L (13-56); Albumin, Serum 3.9 g/dL (3.2-5.0); Alkaline Phosphatase 115 U/L (45-117); Anion Gap 7 (5-15); BUN 16 mg/dL (7-18); BUN/Creat Ratio 18.6 RATIO (10-20); Calcium,Total 9.1 mg/dL (8.5-10.1); Chloride 109 mmol/L (98-107); Creatinine, Serum 0.86 mg/dL (0.55-1.02); EST Glomerular Filtration Rate 69 mL/min (>60); Est Glom Filt Rate - Afr Amer 84 mL/min (>60); Globulin 2.7 g/dL (2.2-4.2); Glucose 79 mg/dL (74-106); Potassium 4.1 mmol/L (3.5-5.1); Protein, Total 6.6 g/dL (6.4-8.2); Sodium Level 141 mmol/L (136-145)
[2022-11-21 15:08] LABS: Endomysial Antibody IgA Negative (Negative); Immunoglobulin A 99 mg/dL (64-422); t-Transglutaminase IgA <2 U/mL (0-3)
== END | disposition home or self-care (01) ==
LOC: LAB 13:50 → MTLAB 15:24
PROVIDERS: Internal Medicine Gastroenterology; PCP Family Medicine; Visit Provider Internal Medicine Rheumatology
DX: M06.4 Inflammatory polyarthropathy (principal); M79.7 Fibromyalgia; M19.041 Primary osteoarthritis, right hand; Z79.899 Other long term (current) drug therapy; E55.9 Vitamin D deficiency, unspecified; M81.0 Age-related osteoporosis without current pathological fracture
CPT/HCPCS: 36415; 80053; 82784; 83516; 85025; 86255

== ENCOUNTER → 2022-12-18 | Outpatient (CLI) | payer MEDICARE, OTHER, SELFPAY ==
[2022-12-18 17:40] LABS: Absolute Lymphocyte Count 0.66 X10^3/uL (0.83-4.51); Absolute Neutrophil Count 3.2 X10^3/uL (2.0-7.7); Basophil# 0.03 X10^3/uL; Basophil% 0.7 % (0-1); Eosinophil# 0.03 X10^3/uL; Eosinophils% 0.7 % (0-5); Hemoglobin 11.3 g/dL (12.0-15.0); Lymphocyte # 0.66 X10^3/ul (0.83-4.51); Lymphocyte % 14.9 % (19-41); Mean Corp Hgb Conc 32.3 g/dL (32-36); Mean Corpuscular Hgb 32.6 pg (27.0-32.0); Mean Corpuscular Volume 100.9 fL (81-99); Mean Platelet Vol. 9.9 fl (6.2-12.0); Monocyte% 11.3 % (0-10); NRBC Flagged by Analyzer 0 % (0-5); Neutrophil # 3.17 X10^3/uL (2.7-7.7); Neutrophil % 71.7 % (47-70); Platelet Count 259 K/mm3 (150-450); RBC Distribution Width CV 14.3 % (11.6-14.6); RBC Distribution Width SD 52.1 fl (35.1-43.9); Red Blood Count 3.47 M/mm3 (4.2-5.4); White Blood Count 4.4 K/mm3 (4.4-11.0)
[2022-12-18 17:57] LABS: ALB/GLOB Ratio 1.1 RATIO (0.9-2.4); AST(SGOT) 20 U/L (15-37); Alanine Aminotransfer ALT/SGPT 20 U/L (13-56); Albumin, Serum 3.6 g/dL (3.2-5.0); Alkaline Phosphatase 98 U/L (45-117); Anion Gap 9 (5-15); BUN 17 mg/dL (7-18); BUN/Creat Ratio 20.1 RATIO (10-20); Chloride 103 mmol/L (98-107); Creatinine, Serum 0.84 mg/dL (0.55-1.02); EST Glomerular Filtration Rate 70 mL/min (>60); Est Glom Filt Rate - Afr Amer 85 mL/min (>60); Globulin 3.4 g/dL (2.2-4.2); Glucose 77 mg/dL (74-106); Potassium 4.2 mmol/L (3.5-5.1); Sodium Level 136 mmol/L (136-145)
== END | disposition home or self-care (01) ==
LOC: MFPLAB 14:39
PROVIDERS: PCP Family Medicine; Visit Provider Family Medicine
DX: U07.1 COVID-19 (principal)
CPT/HCPCS: 36415; 80053; 85025

== ENCOUNTER → 2023-02-04 | Outpatient (CLI) | payer MEDICARE, OTHER, SELFPAY ==
[2023-02-04 10:08] LABS: Absolute Lymphocyte Count 1.45 X10^3/uL (0.83-4.51); Basophil# 0.06 X10^3/uL; Eosinophil# 0.07 X10^3/uL; Eosinophils% 1.2 % (0-5); Hematocrit 30.5 % (37-47); Hemoglobin 10.1 g/dL (12.0-15.0); Lymphocyte # 1.45 X10^3/ul (0.83-4.51); Mean Corp Hgb Conc 33.1 g/dL (32-36); Mean Corpuscular Volume 102.7 fL (81-99); Mean Platelet Vol. 10.2 fl (6.2-12.0); Monocyte% 6.6 % (0-10); NRBC Flagged by Analyzer 0 % (0-5); Neutrophil # 4.04 X10^3/uL (2.7-7.7); Neutrophil % 66.9 % (47-70); Platelet Count 249 K/mm3 (150-450); RBC Distribution Width CV 14.6 % (11.6-14.6); RBC Distribution Width SD 54.4 fl (35.1-43.9); Red Blood Count 2.97 M/mm3 (4.2-5.4)
[2023-02-04 10:31] LABS: ALB/GLOB Ratio 1.3 RATIO (0.9-2.4); AST(SGOT) 20 U/L (15-37); Alanine Aminotransfer ALT/SGPT 27 U/L (13-56); Albumin, Serum 4.1 g/dL (3.2-5.0); Alkaline Phosphatase 93 U/L (45-117); Anion Gap 3 (5-15); BUN 16 mg/dL (7-18); BUN/Creat Ratio 16.8 RATIO (10-20); Calcium,Total 9.6 mg/dL (8.5-10.1); Chloride 108 mmol/L (98-107); Creatinine, Serum 0.95 mg/dL (0.55-1.02); EST Glomerular Filtration Rate 61 mL/min (>60); Est Glom Filt Rate - Afr Amer 74 mL/min (>60); Globulin 3.2 g/dL (2.2-4.2); Glucose 89 mg/dL (74-106); Protein, Total 7.3 g/dL (6.4-8.2); Sodium Level 137 mmol/L (136-145)
== END | disposition home or self-care (01) ==
LOC: MTLAB 09:24
PROVIDERS: PCP Family Medicine; Referring Provider Internal Medicine Rheumatology; Visit Provider Internal Medicine Rheumatology
DX: M06.4 Inflammatory polyarthropathy (principal); M79.7 Fibromyalgia; M19.041 Primary osteoarthritis, right hand; M81.0 Age-related osteoporosis without current pathological fracture; Z79.899 Other long term (current) drug therapy
CPT/HCPCS: 36415; 80053; 85025

== ENCOUNTER → 2023-04-14 | Outpatient (CLI) | payer MEDICARE, OTHER, SELFPAY ==
--- NOTE | 2023-04-14 08:13 | BI_ITS ---
MAMMOGRAPHY - BILATERAL SCREENING REASON FOR EXAM: Female, 72 years old. Routine annual screening examination. PERTINENT HISTORY: Non-contributory. TECHNIQUE: Digital bilateral breast neri (3D mammographic acquisition) in the CC and MLO projections. 2-D mediolateral oblique (MLO) and craniocaudad (CC) views of both breasts were obtained. CAD: Full Field Digital Mammography with Computer Added Detection was performed. COMPARISON: Comparison is made with prior study dated March 29, 2021 and March 13, 2017. FINDINGS: Breast Composition: There are scattered areas of fibroglandular density. There are no dominant masses or suspicious calcifications. Stable bilateral secretory calcifications. No other significant abnormalities are identified. There has been no significant change since the prior study. BI/SCRN MAMM (CAD)W/NERI BILAT IMPRESSION: Stable bilateral screening mammogram. Yearly follow-up mammogram recommended. (A) ASSESSMENT CATEGORY: BIRADS Category 2: Benign. A letter regarding these results will be sent to the patient by the facility within 30 days. Approximately 10% of breast cancers are not detected by mammography. A normal mammogram should not delay biopsy of a clinically suspicious abnormality. [id number] Electronically Signed: Naveed Shoemaker MD at 9:43 EST ,
== END | disposition home or self-care (01) ==
LOC: OPBI 08:11
PROVIDERS: PCP Family Medicine; Referring Provider Nurse Practitioner Family; Visit Provider Nurse Practitioner Family
DX: Z12.31 Encounter for screening mammogram for malignant neoplasm of breast (principal)
CPT/HCPCS: 77063; 77067

== ENCOUNTER → 2023-04-15 | Outpatient (CLI) | payer MEDICARE, OTHER, SELFPAY ==
[2023-04-15 18:28] LABS: Amphetamine Urine VISTA NEGATIVE (<1000 ng/mL); Barbiturate Urine VISTA NEGATIVE (< 200 ng/mL); Benzodiazepine Urine VISTA NEGATIVE (< 200 ng/mL); Cocaine Urine VISTA NEGATIVE (< 300 ng/mL); Ecstacy Urine VISTA NEGATIVE (< 500 ng/mL); Methadone Urine VISTA NEGATIVE (< 300 ng/mL); PCP Urine VISTA NEGATIVE (< 25 ng/mL); THC Urine VISTA NEGATIVE (< 50 ng/mL); Vista UDS pH Range 6
== END | disposition home or self-care (01) ==
LOC: LAB 13:40
PROVIDERS: PCP Family Medicine; Referring Provider Anesthesiology Pain Medicine; Visit Provider Anesthesiology Pain Medicine
DX: F11.20 Opioid dependence, uncomplicated (principal)
CPT/HCPCS: 80307

== ENCOUNTER → 2023-05-13 | Outpatient (CLI) | payer MEDICARE, OTHER, SELFPAY ==
--- OUTSIDE RECORDS SUMMARY | 2023-05-13 11:35 | XMS RPT_ITS | CCD ---
Author Name Unknown Address [id number] [place] [address] Organization [facility] Care Team Providers Care Mail Handler Sorter Name Role Phone Vanessa Barrera Unavailable Vanessa Barrera Unavailable Raven Mark Unavailable [employer] Unavailable Vanessa Barrera Unavailable Jordan Sidhu MD Unavailable Vanessa Barrera Unavailable Francisco Ferrari MD Primary Care Provider [phone] Francisco Ferrari MD Primary Care Provider Francisco Ferrari MD Primary Care Provider ADRIÁN PULIDO Referring Unavailable FRANCISCO FERRARI Primary Care Unavailable ADRIÁN PULIDO Referring Unavailable FRANCISCO FERRARI Primary Care Unavailable Mike Hopper DO Primary Care Provider PROVIDER, UNKNOWN Referring Unavailable MIKE HOPPER Primary Care Unavailable ADRIÁN PULIDO Referring Unavailable FRANCISCO FERRARI Primary Care Unavailable FRANCISCO FERRARI Primary Care Unavailable Wisam Mills MD Unavailable Mike Hopper DO Primary Care Provider FRANCISCO FERRARI Primary Care Unavailable ADRIÁN PULIDO Referring Unavailable JAMIE BULL Attending Unavailable MIKE HOPPER Primary Care Unavailable JAMIE BULL Referring Unavailable LESLIE HACKETT Attending Unavailable MIKE HOPPER Primary Care Unavailable LESLIE HACKETT Referring Unavailable FRANCISCO FERRARI Primary Care Unavailable ADRIÁN PULIDO Referring Unavailable ADRIÁN PULIDO Attending Unavailable MIKE HOPPER M Primary Care Unavailable HABBOUB, JAMIE Referring Unavailable WISAM MILLS Referring Unavailable WILL MIKE M Primary Care Unavailable WISAM MILLS Attending Unavailable WILL MIKE M Primary Care Unavailable HABBOUB, JAMIE Referring Unavailable WILL, MIKE M Primary Care Unavailable HABBOUB, JAMIE Referring Unavailable HABJOSE, JAMIE Attending Unavailable WILL MIKE M Primary Care Unavailable HABBOUB, JAMIE Referring Unavailable WISAM MILLS Referring Unavailable MIKE HOPPER M Primary Care Unavailable WILL, MIKE M Primary Care Unavailable WILLMIKE PRESSLEY M Referring Unavailable WILL MIKE M Primary Care Unavailable WILL, MIKE M Primary Care Unavailable LESLIE HACKETT Referring Unavailable MIKE HOPPER M Primary Care Unavailable HABBOUB, JAMIE Referring Unavailable ML, JAMIE Attending Unavailable WISAM MILLS Referring Unavailable MIKE HOPPER M Primary Care Unavailable MIKE HOPPER M Primary Care Unavailable HABBOUB, JAMIE Attending Unavailable MIKE HOPPER M Primary Care Unavailable HABBODEVON, JAMIE Referring Unavailable WISAM MILLS Referring Unavailable WILL MIKE M Primary Care Unavailable WISAM MILLS Attending Unavailable WILL MIKE M Primary Care Unavailable HABBODEVON, JAMIE Referring Unavailable MIKE HOPPER M Primary Care Unavailable LESLIE HACKETT Referring Unavailable WISAM MILLS Attending Unavailable MIKE HOPPER M Primary Care Unavailable LESLIE HACKETT Referring Unavailable WISAM MILLS Referring Unavailable WILL MIKE M Primary Care Unavailable LESLIE HACKETT Attending Unavailable MIKE HOPPER M Primary Care Unavailable WILL MIKE M Referring Unavailable WISAM MILLS Referring Unavailable WILL, MIKE M Primary Care Unavailable WILL MIKE M Primary Care Unavailable Allergies Allergy Classification Reported Allergen(s) Allergy Type Date of Onset Reaction(s) Facility (20 sources) Seasonal allergy; Translations: [SEASONAL ALLERGIES] Allergy to substance 4 Other: See Comments [facility] Work Phone: Medications Current Medications Medication Drug Class(es) Dates Sig (Normalized) Sig (Original) enteric contrast (will be provided with radiology test) (1 source) Start: 02-25-2023 End: 02-26-2023 enteric contrast (will be provided with radiology test) Indications: 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 For CT CHESTABD/PEL W IVCON Routine order Administer, As Directed One Time Only, via Oral, Rectal, both Oral and Rectal, Enteric Tube, Stoma or Indwelling Catheter, Enteric Contrast as designated per enteric contrast guidelines 1 Each 0 02/25/2023 02/26/2023 Active Completed/Discontinued Medications Medication Drug Class(es) Dates Sig (Normalized) Sig (Original) acetaminophen 325 mg / oxyCODONE hydrochloride 5 mg oral tablet (8 sources) Opioid Agonist Start: 07-17-2017 take 1-2 tablets by mouth every six hours PERCOCET 5-325 MG TABS Take 1-2 tablets by mouth every 6 hours OXYCODONE-ACETAMIN OPHEN [id number] Patty Ambriz PA-C Problems Active Problems Problem Classification Problem Date Documented Date Episodic/Chronic Disorders of lipid metabolism (20 sources) Hyperlipidemia; Translations: [Hyperlipidemia, unspecified] Onset: 09-20-2014 09-20-2014 Chronic Neoplasms of unspecified nature or uncertain behavior (5 sources) Monoclonal gammopathy (clinical); Translations: [Monoclonal gammopathy] Onset: 02-25-2023 Chronic Nutritional deficiencies (2 sources) Vitamin D deficiency; Translations: [Vitamin D deficiency, unspecified] Onset: 07-29-2022 Chronic Osteoarthritis (20 sources) Arthritis; Translations: [Unspecified osteoarthritis, unspecified site] Onset: 12-30-2012 04-29-2021 Chronic Osteoporosis (20 sources) Osteoporosis; Translations: [Age-related osteoporosis without current pathological fracture] Onset: 12-30-2012 04-29-2021 Chronic Other acquired deformities (1 source) Spondylolisthesis; Translations: [Spondylolisthesis, lumbar region] Onset: 05-29-2017 05-29-2017 Chronic Other bone disease and musculoskeletal deformities (2 sources) Disorder of bone; Translations: [Disorder of bone density and structure, unspecified] Episodic Other bone disease and musculoskeletal deformities (1 source) Other specified disorders of bone density and structure, unspecified site; Translations: [Other specified disorders of bone density and structure, unspecified site] Onset: 03-13-2023 Episodic Other connective tissue disease (6 sources) H/O: arthrodesis; Translations: [Arthrodesis status] Episodic Other endocrine disorders (1 source) Hyperparathyroidism; Translations: [Hyperparathyroidism, unspecified] Chronic Other fractures (5 sources) Closed fracture of third thoracic vertebra; Translations: [Stable burst fracture of third thoracic vertebra, subsequent encounter for fracture with routine healing] Episodic Other hematologic conditions (2 sources) Protein electrophoresis abnormal; Translations: [Other specified abnormalities of plasma proteins] Episodic Other nervous system disorders (1 source) Carpal tunnel syndrome of right wrist; Translations: [Carpal tunnel syndrome, right upper limb] Chronic Other screening for suspected conditions (not mental disorders or infectious disease) (2 sources) Radiology result abnormal; Translations: [Abnormal findings on diagnostic imaging of other specified body structures] Onset: 07-29-2022 Chronic Spondylosis; intervertebral disc disorders; other back problems (20 sources) Cervical spondylosis with myelopathy; Translations: [Intervertebral disc disorders with myelopathy, lumbar region] Onset: 12-30-2012 07-07-2016 Chronic Spondylosis; intervertebral disc disorders; other back problems (20 sources) Cervical spine ankylosis; Translations: [Neck pain] Onset: 12-30-2012 10-26-2016 Episodic Unclassified (1 source) Other specified postprocedural states; Translations: [Other specified postprocedural states] Onset: 07-10-2017 07-10-2017 Past or Other Problems Problem Classification Problem Date Documented Da te Episodic/Chronic Allergic reactions (20 sources) Eczema; Translations: [Dermatitis, unspecified] Onset: 09-20-2013 06-23-2014 Episodic Complications of surgical procedures or medical care (8 sources) Complication of procedure; Translations: [Complication of surgical and medical care, unspecified, initial encounter] Onset: 04-17-2022 Episodic Other acquired deformities (1 source) Other biomechanical lesions of lumbar region; Translations: [Other biomechanical lesions of lumbar region] Onset: 05-29-2017 05-29-2017 Episodic Other bone disease and musculoskeletal deformities (1 source) Disorder of bone density and structure, unspecified; Translations: [Disorder of bone density and structure, unspecified] Onset: 07-29-2022 Episodic Other connective tissue disease (4 sources) Arthrodesis status; Translations: [Arthrodesis status] Onset: 07-10-2017 07-10-2017 Episodic Other connective tissue disease (20 sources) Fibromyalgia; Translations: [Fibromyalgia] Onset: 12-30-2012 04-29-2021 Episodic Other fractures (2 sources) Stable burst fracture of third thoracic vertebra, subsequent encounter for fracture with routine healing; Translations: [Closed stable burst fracture of third thoracic vertebra with routine healing, subsequent encounter] Onset: 06-23-2022 Episodic Other hematologic conditions (1 source) Other specified abnormalities of plasma proteins; Translations: [Abnormal SPEP] Onset: 08-26-2022 Episodic Other non-traumatic joint disorders (20 sources) Joint pain; Translations: [Pain in unspecified joint] Onset: 04-11-2014 04-11-2014 Episodic Pathological fracture (13 sources) Primary osteoporosis; Translations: [Age-related osteoporosis with current pathological fracture, unspecified site, subsequent encounter for fracture with routine healing] Onset: 04-29-2021 Episodic Residual codes; unclassified (20 sources) Tobacco user; Translations: [Tobacco use] Onset: 09-20-2014 04-29-2021 Episodic Unclassified (1 source) Problem Results Test Name Value Interpretation Reference Range Facil ity Vital Signs Date Time Vital Sign Value Performing Clinician Facility 03-24-2023 10:29-0500 Body temperature 97.5 [degF] Wisam Mills MD Work Phone: [facility] 03-24-2023 10:29-0500 Body weight 44.23 kg Wisam Mills MD Work Phone: [facility] 03-24-2023 10:29-0500 Diastolic blood pressure 81 mm[Hg] Wisam Mills MD Work Phone: [facility] 03-24-2023 10:29-0500 Heart rate 102 /min Wisam Mills MD Work Phone: [facility] 03-24-2023 10:29-0500 SaO2% (BldA) [Mass fraction] 98 % Wisam Mills MD Work Phone: [facility] 03-24-2023 10:29-0500 Systolic blood pressure 132 mm[Hg] Wisam Mills MD Work Phone: [facility] 03-23-2023 09:21-0500 Body height 147.3 cm Jamie Bull MD Work Phone: [facility] 03-23-2023 09:21-0500 Diastolic blood pressure 75 mm[Hg] Jamie Bull MD Work Phone: [facility] 03-23-2023 09:21-0500 Heart rate 79 /min Jamie Bull MD Work Phone: [facility] 03-23-2023 09:21-0500 SaO2% (BldA) [Mass fraction] 98 % Jamie Bull MD Work Phone: [facility] 03-23-2023 09:21-0500 Systolic blood pressure 116 mm[Hg] Jamie Bull MD Work Phone: [facility] 02-25-2023 09:59-0400 Body height 147.3 cm Wisam Mills MD Work Phone: [facility] 02-25-2023 09:59-0400 Body temperature 98.01 [degF] Wisam Mills MD Work Phone: [facility] 02-25-2023 09:59-0400 Body weight 44 kg Wisam Mills MD Work Phone: [facility] 02-25-2023 09:59-0400 Diastolic blood pressure 74 mm[Hg] Wisam Mills MD Work Phone: [facility] 02-25-2023 09:59-0400 Heart rate 68 /min Wisam Mills MD Work Phone: [facility] 02-25-2023 09:59-0400 SaO2% (BldA) [Mass fraction] 99 % Wisam Mills MD Work Phone: [facility] 02-25-2023 09:59-0400 Systolic blood pressure 114 mm[Hg] Wisam Mills MD Work Phone: [facility] 01-19-2023 10:00-0400 Body weight 43.5 kg Jamie Bull MD Work Phone: [facility] 01-19-2023 10:00-0400 Diastolic blood pressure 75 mm[Hg] Jamie Bull MD Work Phone: [facility] 01-19-2023 10:00-0400 Heart rate 89 /min Jamie Bull MD Work Phone: [facility] 01-19-2023 10:00-0400 SaO2% (BldA) [Mass fraction] 99 % Jamie Bull MD Work Phone: [facility] 01-19-2023 10:00-0400 Systolic blood pressure 137 mm[Hg] Jamie Bull MD Work Phone: [facility] 10-20-2022 08:20-0400 Body height 144.8 cm Jamie Bull MD Work Phone: [facility] 10-20-2022 08:20-0400 Body weight 48.26 kg Jamie Bull MD Work Phone: [facility] 10-20-2022 08:20-0400 Diastolic blood pressure 78 mm[Hg] Jamie Bull MD Work Phone: [facility] 10-20-2022 08:20-0400 Heart rate 83 /min Jamie Bull MD Work Phone: [facility] 10-20-2022 08:20-0400 SaO2% (BldA) [Mass fraction] 97 % Jamie Bull MD Work Phone: [facility] 10-20-2022 08:20-0400 Systolic blood pressure 122 mm[Hg] Jamie Bull MD Work Phone: [facility] 09-10-2022 10:40-0400 Body height 144.8 cm Leslie Hackett MD Work Phone: [facility] 09-10-2022 10:40-0400 Body weight 47.63 kg Leslie Hackett MD Work Phone: [facility] 09-10-2022 10:40-0400 Diastolic blood pressure 71 mm[Hg] Leslie Hackett MD Work Phone: [facility] 09-10-2022 10:40-0400 Heart rate 77 /min Leslie Hackett MD Work Phone: [facility] 09-10-2022 10:40-0400 SaO2% (BldA) [Mass fraction] 97 % Leslie Hackett MD Work Phone: [facility] 09-10-2022 10:40-0400 Systolic blood pressure 115 mm[Hg] Leslie Hackett MD Work Phone: [facility] 08-26-2022 11:12-0400 Body temperature 98.01 [degF] Wisam Mills MD Work Phone: [facility] 08-26-2022 11:12-0400 Body weight 48.44 kg Wisam Mills MD Work Phone: [facility] 08-26-2022 11:12-0400 Diastolic blood pressure 80 mm[Hg] Wisam Mills MD Work Phone: [facility] 08-26-2022 11:12-0400 Heart rate 81 /min Wisam Mills MD Work Phone: [facility] 08-26-2022 11:12-0400 Respiratory rate 18 /min Wisam Mills MD Work Phone: [facility] 08-26-2022 11:12-0400 SaO2% (BldA) [Mass fraction] 98 % Wisam Mills MD Work Phone: [facility] 08-26-2022 11:12-0400 Systolic blood pressure 135 mm[Hg] Wisam Mills MD Work Phone: [facility] 07-23-2022 10:45-0400 Body height 144.8 cm Leslie Hackett MD Work Phone: [facility] 07-23-2022 10:45-0400 Body weight 49.44 kg Leslie Hackett MD Work Phone: [facility] 07-23-2022 10:45-0400 Diastolic blood pressure 89 mm[Hg] Leslie Hackett MD Work Phone: [facility] 07-23-2022 10:45-0400 Heart rate 91 /min Leslie Hackett MD Work Phone: [facility] 07-23-2022 10:45-0400 SaO2% (BldA) [Mass fraction] 96 % Leslie Hackett MD Work Phone: [facility] 07-23-2022 10:45-0400 Systolic blood pressure 147 mm[Hg] Leslie Hackett MD Work Phone: [facility] 06-23-2022 14:11-0500 Body height 147.3 cm Jamie Bull MD Work Phone: [facility] 06-23-2022 14:11-0500 Body weight 50.12 kg Jamie Bull MD Work Phone: [facility] 06-23-2022 14:11-0500 Diastolic blood pressure 85 mm[Hg] Jamie Bull MD Work Phone: [facility] 06-23-2022 14:11-0500 Heart rate 104 /min Jamie Bull MD Work Phone: [facility] 06-23-2022 14:11-0500 SaO2% (BldA) [Mass fraction] 99 % Jamie Bull MD Work Phone: [facility] 06-23-2022 14:11-0500 Systolic blood pressure 130 mm[Hg] Jamie Bull MD Work Phone: [facility] 06-04-2022 12:52-0500 Body height 147.3 cm Adrián Pulido PA-C Work Phone: [facility] 06-04-2022 12:52-0500 Body weight 47.63 kg Adrián Pulido PA-C Work Phone: [facility] 06-04-2022 12:52-0500 Diastolic blood pressure 70 mm[Hg] Adrián Pulido PA-C Work Phone: [facility] 06-04-2022 12:52-0500 Heart rate 93 /min Adrián Pulido PA-C Work Phone: [facility] 06-04-2022 12:52-0500 SaO2% (BldA) [Mass fraction] 98 % Adrián Pulido PA-C Work Phone: [facility] 06-04-2022 12:52-0500 Systolic blood pressure 120 mm[Hg] Adrián Pulido PA-C Work Phone: [facility] 04-17-2022 09:11-0500 Body height 147.3 cm Adrián Pulido PA-C Work Phone: [facility] 04-17-2022 09:11-0500 Body weight 48.81 kg Adrián Pulido PA-C Work Phone: [facility] 04-17-2022 09:11-0500 Diastolic blood pressure 68 mm[Hg] Adrián Pulido PA-C Work Phone: [facility] 04-17-2022 09:11-0500 Heart rate 79 /min Adrián Pulido PA-C Work Phone: [facility] 04-17-2022 09:11-0500 SaO2% (BldA) [Mass fraction] 97 % Adrián Pulido PA-C Work Phone: [facility] 04-17-2022 09:11-0500 Systolic blood pressure 120 mm[Hg] Adrián Pulido PA-C Work Phone: [facility] 02-07-2022 10:27-0400 Body weight 46.72 kg Mauyr Cao MD Work Phone: [facility] 02-07-2022 10:27-0400 Diastolic blood pressure 85 mm[Hg] Mayur Cao MD Work Phone: [facility] 02-07-2022 10:27-0400 Heart rate 84 /min Mayur Cao MD Work Phone: [facility] 02-07-2022 10:27-0400 Systolic blood pressure 141 mm[Hg] Mayur Cao MD Work Phone: [facility] 07-07-2016 09:59-0500 BMI (Body Mass Index) 18.3 kg/m2 [facility] Work Phone: 07-07-2016 09:59-0500 Height 165.1 cm [facility] Work Phone: 07-07-2016 09:59-0500 Weight 49.9 kg [facility] Work Phone: NEGATED: Highlighted [id number] 12:04-0400 BMI (Body Mass Index) 21.56 kg/m2 Marleni Chirinos RN [facility] Work Phone: NEGATED: Highlighted [id number] 12:04-0400 BP Diastolic 83 mm[Hg] Marleni Chirinos RN [facility] Work Phone: NEGATED: Highlighted [id number] 12:04-0400 BP Systolic 126 mm[Hg] Marleni Chirinos RN [facility] Work Phone: NEGATED: Highlighted [id number] 12:04-0400 Height 152.4 cm Marleni Chirinos RN [facility] Work Phone: NEGATED: Highlighted [id number] 12:04-0400 Height 152 cm Marleni Chirinos RN [facility] Work Phone: NEGATED: Highlighted [id number] 12:04-0400 Pulse (Heart Rate) 65 /min Marleni Chirinos RN [facility] Work Phone: NEGATED: Highlighted [id number] 12:04-0400 Weight 49.9 kg Marleni Chirinos RN [facility] Work Phone: NEGATED: Highlighted [id number] 12:040400 Weight 50 kg Marleni Chirinos RN [facility] Work Phone: Encounters Encounter Date Encounter Type Care Provider Facility Start: 04-22-2023 End: 04-22-2023 ambulatory [facility] Facility:[facility] Start: 04-22-2023 End: 04-22-2023 Patient encounter procedure Nurse Ari Campos Work Phone: Endocrinology Procedures Date Procedure Procedure Detail Performing Clinician Start: 05-31-2022 Mri spinal canal tho racic w/o & w/contr matrl Adrián Pulido PA-C Work Phone: Start: 02-28-2022 Nerve conduction kirk dies 5-6 studies Mayur Cao MD Work Phone: Start: 2017 End: 2017 Blood pressure within normal parameters - no follow-up required Jordan Sidhu MD Work Phone: Start: 2017 End: 2017 BMI documented within normal parameters - no follow-up plan is required Jordan Sidhu MD Work Phone: Start: 2017 End: 2017 Current medications documented Jordan Sidhu MD Work Phone: Start: 2017 End: 2017 Pain assessment documented as negative - follow-up not required Jordan Sidhu MD Work Phone: Start: 2017 End: 2017 Radex spine lumbosacral 2/3 views Jordan Sidhu MD Work Phone: Start: 2017 End: 2017 Tobacco non-user Jordan Sidhu MD Work Phone: Start: 08-22-2014 Lipid 1996 panel - S gris or Plasma Nurse Work Phone: Start: 06-27-2014 Mammography Mayur gastelum MD Work Phone: Start: 05-23-2013 Colonoscopy Mayur gastelum MD Work Phone: Plan of Treatment Date Care Activity Detail Author Start: 09-04-2029 Urine microalbumin profile DTaP,Tdap,Td Vaccine (2 - Td or Tdap) [facility] Start: 02-25-2026 Diabetes Screening Diabetes Screening [facility] Start: 07-29-2025 DIABETES SCREEN DIABETES SCREEN [facility] Start: 07-29-2025 Diabetes Screening Diabetes Screening [facility] Start: 03-13-2024 Influenza vaccination Lung Cancer Screening [facility] Start: 03-13-2024 Screening for malignant neoplasm of lung Lung Cancer Screening [facility] Start: 05-23-2023 Colonoscopy COLONOSCOPY [facility] Start: 05-23-2023 COLORECTAL CANCER SCREENING COLORECTAL CANCER SCREENING [facility] Start: 05-23-2023 Screening for malignant neoplasm of colon [facility] Start: 03-13-2023 End: 05-13-2023 25-hydroxyvitamin D3 [Mass/volume] in Serum or Plasma VITAMIN D 25 HYDROXY Lab Routine Age-related osteoporosis with current pathological fracture with routine healing, subsequent encounter Other specified disorders of bone density and structure, unspecified site Expected: 03/13/2023 (Approximate), Expires: 05/13/2023 [facility] Work Phone: Immunizations Immunization Date Immunization Notes Care Provider Fa [facility] 12-30-2012 pneumococcal polysaccharide vaccine, 23 valent Mayur Cao MD Work Phone: [facility] 12-30-2012 tetanus and diphther ia toxoids, adsorbed, preservative free, for adult use (2 Lf of tetanus toxoid and 2 Lf of diphtheria toxoid) Mayur Cao MD Work Phone: [facility] No information available. Marleni Chirinos RN [facility] Work Phone: Payers Date Payer Category Payer Unknown MMO MMO MEDICARE SUPPLEMENT [id number] 2021-Present [phone] [address] [place] [address] Indemnity [id number] 2018 Medicare [id number] 2016 Unknown [id number] 2016 Medicare [id number] 2015 Medicare MEDICARE MEDICAR E A AND B [id number] 2015-Present [phone] [address] [address] [place] [address] Medicare [id number] 2015 Medicare [id number] 1950 Unknown [id number] Social History Date Type Detail Facility Start: 02-15-2015 End: 04-17-2022 Tobacco smoking status NHIS Ex-smoker [facility] End: 04-12-2013 History of tobacco use Current smoker [facility] End: 04-12-2013 History of tobacco use Cigarette Smoker [facility] Start: 02-15-2015 End: 09-10-2022 Cigarettes smoked current (pack per day) - Reported 1 [facility] Start: 02-15-2015 End: 04-17-2022 Tobacco use and exposure Smokeless tobacco non-user [facility] Start: 12-18-2021 End: 03-24-2023 Alcohol intake Current non-drinker of alcohol (finding) [facility] Start: 12-07-2014 Tobacco Comment curently 1 pac k per month [facility] Start: 1950 Sex Assigned At Female [facility] Start: 01-28-2022 End: 02-07-2022 Exposure to SARS-CoV-2 (event) Not sure [facility] Start: 09-10-2022 End: 10-20-2022 Tobacco use panel [facility] Adult Depression Screening Assessment 2 [facility] Start: 01-09-2022 Gender identity Identifies as female gender (finding) [facility] Start: 01-09-2022 Sexual orientation Heterosexual (eliza [place]) [facility] NEGATED: Highlighted rowStart: 2017 End: 2017 Assertion Former smoker [facility] Work Phone: NEGATED: Highlighted rowStart: 2017 End: 2017 How many days of moderate to strenuous exercise, like a brisk walk, did you do in the last 7 days? EXERCISEFREQ 7 days per week [facility] Work Phone: Medical Equipment Procedure Code Equipment Code Equipment Origin al Text Equipment Identifier Dates 3 Level Plate 39mm [id number] Start: 12-14-2014 Screw Bn 4mm 14m m [facility] - [id number] Start: 12-14-2014 Clinical Notes 08-03-2013 to 04-22-2023 Lyric Queen RN - 04/22/2023 10:37 AM Wisam Montoya MD - 03/24/2023 10:39 AM Lyric Hernandez RN - 03/23/2023 10:11 AM Jamie Joiner MD - 03/23/2023 9:27 AM EST Note Date & Type Note Facility 04-22-2023 Nurse Note The patient is here for an injection of Evenity Injection #7 of 12 Dose: 210 mg (105 mg/1.17 mL X2). Route: Subcutaneous Lot# [id number] Expiration date 01/31/2025 ND: [id number] Given without incident. Site: Right arm Dr. Hackett present in clinic at time of injection. The date due for the next injection is in 30 days. On or after 05/23/23. Last Injection: 03/23/23 DAVID: 09/10/2022 NOV: 05/27/23 Insurance: Primary= Medicare, Secondary= MMO-- No PA Required Labs: 03/13/23 Calcium 9.5, Vitamin D 74.1 DX: M81.0 CPT: J3111 DXA: 10/16/20 (TScore -2.9) Patient education was given by nurse. Patient tolerated Injection well, in NAD and no reactions noted. Medication supplied by [facility]. Lyric Queen RN documented in this encounter [facility] 03-24-2023 Note HNO ID: [id number] Author: Wiasm Mills MD Service: ? Author Type: Physician Type: Progress Notes Filed: 03/24/2023 11:01 AM Note Text: (Elements copied from my note dated February 25, 2023, have been reviewed and updated where appropriate, and all reflect current assessment and medical decision making from today's encounter, March 24, 2023) HISTORY OF PRESENT ILLNESS: Yara Loya is a 71 year old female referred for monoclonal gammopathy. Feels well, found on basis of osteopenia work up. Reviewed possible implications. Here for follow up, reviewed labs IgM monoclonal gammopathy. Reviewed scans, no adenopathy. CLINICAL IMPRESSION: Monoclonal gammopathy, IgM subtype appears to be of unknown significance RECOMMENDATION/PLAN: 1. Labs and follow up 6 months. Written and verbal health teaching given to patient, patient verbalizes understanding and agrees with treatment plan. PAST MEDICAL HISTORY Diagnosis Date Arthritis of neck Fibromyalgia Herniated disc, cervical she says she has 7 herniated discs Osteoporosis PAST SURGICAL HISTORY Procedure Laterality Date ARTHRD ANT INTERBODY MIN DSC CRV BELOW C2 12/14/14 DISCECTOMY ANT DCMPRN CORD CERVICAL 1 [facility] 12/14/14 DISCECTOMY ANT DCMPRN CORD CERVICAL EA [facility] 12/14/14 HEMORRHOID SURGERY HX 2013 PAST SURGICAL HISTORY OF 2000 back, done by ?DR. Kelley? TONSILLECTOMY AND ADENOIDECTOMY FAMILY HISTORY Problem Relation Age of Onset Stroke Mother Stroke Father Social History Tobacco Use Smoking status: Former Packs/day: 1.00 Years: 45.00 Additional pack years: 0.00 Total pack years: 45.00 Types: Cigarettes Quit date: 04/12/2013 Years since quittin.9 Smokeless tobacco: Never Substance Use Topics Alcohol use: No Drug use: No ALLERGIES: ALLERGIES Allergen Reactions Seasonal Allergies Other: See Comments sinus CURRENT OUTPATIENT MEDICATIONS: multivitamin tabletTake 1 tablet by mouth once daily.Disp: Rfl: TURMERIC ORALTake 1 tablet by mouth once daily.Disp: Rfl: hydrOXYchloroQUINE (PLAQUENIL) 200 mg tabletTake 200 mg by mouth once daily.Disp: Rfl: folic acid 0.8 mg capTake 2 capsules by mouth once daily.Disp: Rfl: methotrexate 2.5 mg tabletTake 8 tablets by mouth once weekly.Disp: Rfl: oxyCODONE myristate (XTAMPZA ER) 13.5 mg CSpTTake 1 capsule by mouth two times a day.Disp: Rfl: cholecalciferol (VITAMIN D3) 5,000 unit tabTake 5,000 Units by mouth once daily.Disp: Rfl: predniSONE (DELTASONE) 10 mg tabletTake 10 mg by mouth once daily.Disp: Rfl: OMEGA-3 FATTY ACIDS/FISH OIL (OMEGA 3 FISH OIL ORAL)Take by mouth once daily.Disp: Rfl: methocarbamol (ROBAXIN-750) 750 mg tabletTake 1 tablet by mouth three times daily as needed.Disp: 60 tabletRfl: 0 (Patient not taking: Reported on 03/23/2023) BIOTIN ORALTake 2 tablets by mouth once daily. 6000 MCG Biotin, with Keratin 50 mgDisp: Rfl: (Patient not taking: Reported on 03/23/2023) CALCIUM ORALTake 600 mg by mouth once daily.Disp: Rfl: (Patient not taking: Reported on 03/23/2023) iv contrast (will be provided with radiology test)MRI CSP Inject, intravenously, once for 1 dose. No IV access, insert saline lock prior to the beginning of sedation, infusion, injection of imaging exam. Discontinue saline lock post exam. If Pt. has a central line or IVAD, may access for administration according to line specific nursing protocol. Once exam is complete flush line and de-access according to line specific nursing protocol in the MR contrast administration guidelines link.Disp: 1 EachRfl: 0 iv contrast (will be provided with radiology test)MRI TSP Inject, intravenously, once for 1 dose. No IV access, insert saline lock prior to the beginning of sedation, infusion, injection of imaging exam. Discontinue saline lock post exam. If Pt. has a central line or IVAD, may access for administration according to line specific nursing protocol. Once exam is complete flush line and de-access according to line specific nursing protocol in the MR contrast administration guidelines link.Disp: 1 EachRfl: 0 cetirizine (ZYRTEC) 10 mg tabletTake 10 mg by mouth once daily.Disp: Rfl: (Patient not taking: Reported on 03/23/2023) gabapentin (NEURONTIN) 300 mg capsuleTake 1 capsule by mouth twice daily for 180 days.Disp: 180 capsuleRfl: 1 (Patient not taking: Reported on 03/23/2023) CALCIUM CARBONATE (CALCIUM 300 ORAL)Take 1 tablet by mouth once daily.Disp: Rfl: (Patient not taking: Reported on 03/23/2023) meloxicam (MOBIC) 15 mg tabletTake 1 tablet by mouth once daily. Take with food.Disp: 30 tabletRfl: 2 (Patient not taking: Reported on 03/23/2023) REVIEW OF SYSTEMS: GENERAL: No fever, night sweats, weight loss or malaise. All other reviewed and negative other than HPI. PHYSICAL EXAMINATION: VITAL SIGNS: BP 132/81 Pulse 102 Temp (Src) 97.5 (Temporal) Wt 97 lb 8 oz (44.2kg) SpO2 98% GENERAL APPEARANCE: Well appearing, in no (more content not included)... [facility] 03-24-2023 History of Present illness Narrative (Elements copied from my note dated February 25, 2023, have been reviewed and updated where appropriate, and all reflect current assessment and medical decision making from today's encounter, March 24, 2023) HISTORY OF PRESENT ILLNESS: Yara Loya is a 71 year old female referred for monoclonal gammopathy. Feels well, found on basis of osteopenia work up. Reviewed possible implications. Here for follow up, reviewed labs IgM monoclonal gammopathy. Reviewed scans, no adenopathy. CLINICAL IMPRESSION: Monoclonal gammopathy, IgM subtype appears to be of unknown significance RECOMMENDATION/PLAN: 1. Labs and follow up 6 months. Written and verbal health teaching given to patient, patient verbalizes understanding and agrees with treatment plan. PAST MEDICAL HISTORY Diagnosis Date Arthritis of neck Fibromyalgia Herniated disc, cervical she says she has 7 herniated discs Osteoporosis PAST SURGICAL HISTORY Procedure Laterality Date ARTHRD ANT INTERBODY MIN DSC CRV BELOW C2 12/14/14 [facility] DISCECTOMY ANT DCMPRN CORD CERVICAL EA [facility] 12/14/14 HEMORRHOID SURGERY HX 2014 PAST SURGICAL HISTORY OF 2000 back, done by ?DR. Kelley? TONSILLECTOMY & ADENOIDECTOMY <AGE 12 FAMILY HISTORY Problem Relation Age of Onset Stroke Mother Stroke Father Social History Tobacco Use Smoking status: Former Packs/day: 1.00 Years: 45.00 Additional pack years: 0.00 Total pack years: 45.00 Types: Cigarettes Quit date: 04/12/2013 Years since quittin.9 Smokeless tobacco: Never Substance Use Topics Alcohol use: No Drug use: No ALLERGIES: ALLERGIES Allergen Reactions Seasonal Allergies Other: See Comments sinus CURRENT OUTPATIENT MEDICATIONS: multivitamin tablet^Take 1 tablet by mouth once daily.^Disp: ^Rfl: TURMERIC ORAL^Take 1 tablet by mouth once daily.^Disp: ^Rfl: hydrOXYchloroQUINE (PLAQUENIL) 200 mg tablet^Take 200 mg by mouth once daily.^Disp: ^Rfl: folic acid 0.8 mg cap^Take 2 capsules by mouth once daily.^Disp: ^Rfl: methotrexate 2.5 mg tablet^Take 8 tablets by mouth once weekly.^Disp: ^Rfl: oxyCODONE myristate (XTAMPZA ER) 13.5 mg CSpT^Take 1 capsule by mouth two times a day.^Disp: ^Rfl: cholecalciferol (VITAMIN D3) 5,000 unit tab^Take 5,000 Units by mouth once daily.^Disp: ^Rfl: predniSONE (DELTASONE) 10 mg tablet^Take 10 mg by mouth once daily.^Disp: ^Rfl: OMEGA-3 FATTY ACIDS/FISH OIL (OMEGA 3 FISH OIL ORAL)^Take by mouth once daily.^Disp: ^Rfl: methocarbamol (ROBAXIN-750) 750 mg tablet^Take 1 tablet by mouth three times daily as needed.^Disp: 60 tablet^Rfl: 0 (Patient not taking: Reported on 03/23/2023) BIOTIN ORAL^Take 2 tablets by mouth once daily. 6000 MCG Biotin, with Keratin 50 mg^Disp: ^Rfl: (Patient not taking: Reported on 03/23/2023) CALCIUM ORAL^Take 600 mg by mouth once daily.^Disp: ^Rfl: (Patient not taking: Reported on 03/23/2023) iv contrast (will be provided with radiology test)^MRI CSP Inject, intravenously, once for 1 dose. No IV access, insert saline lock prior to the beginning of sedation, infusion, injection of imaging exam. Discontinue saline lock post exam. If Pt. has a central line or IVAD, may access for administration according to line specific nursing protocol. Once exam is complete flush line and de-access according to line specific nursing protocol in the MR contrast administration guidelines link.^Disp: 1 Each^Rfl: 0 iv contrast (will be provided with radiology test)^MRI TSP Inject, intravenously, once for 1 dose. No IV access, insert saline lock prior to the beginning of sedation, infusion, injection of imaging exam. Discontinue saline lock post exam. If Pt. has a central line or IVAD, may access for administration according to line specific nursing protocol. Once exam is complete flush line and de-access according to line specific nursing protocol in the MR contrast administration guidelines link.^Disp: 1 Each^Rfl: 0 cetirizine (ZYRTEC) 10 mg tablet^Take 10 mg by mouth once daily.^Disp: ^Rfl: (Patient not taking: Reported on 03/23/2023) gabapentin (NEURONTIN) 300 mg capsule^Take 1 capsule by mouth twice daily for 180 days.^Disp: 180 capsule^Rfl: 1 (Patient not taking: Reported on 03/23/2023) CALCIUM CARBONATE (CALCIUM 300 ORAL)^Take 1 tablet by mouth once daily.^Disp: ^Rfl: (Patient not taking: Reported on 03/23/2023) meloxicam (MOBIC) 15 mg tablet^Take 1 tablet by mouth once daily. Take with food.^Disp: 30 tablet^Rfl: 2 (Patient not taking: Reported on 03/23/2023) REVIEW OF SYSTEMS: GENERAL: No fever, night sweats, weight loss or malaise. All other reviewed and negative other than HPI. PHYSICAL EXAMINATION: VITAL SIGNS: BP 132/81 Pulse 102 Temp (Src) 97.5 (Temporal) Wt 97 lb 8 oz (44.2kg) SpO2 98% GENERAL APPEARANCE: Well appearing, in no acute distress, alert and oriented x3, well-hydrated, well nourished. No adenopathy or splenomegaly I spent a total of 30 minutes on the date of the service which included preparing to see the patient, [id number] patient care, completing clinical documentation, obtaining and/or reviewing separately obtained history, counseling and educating the patient/family/caregiver, ordering medications, tests, or procedures, independently interpreting results (not separately reported), and communicating results to the patient/family/caregiver. Electronically Signed: Wisam Mills MD March 24, 2023 documented in this encounter [facility] 03-23-2023 Note HNO ID: [id number] Author: Jamie Bull MD Service: ? Author Type: Physician Type: Progress Notes Filed: 03/24/2023 6:55 AM Note Text: SPINE SURGERY ESTABLISHED This is an in-person visit. DATE OF SERVICE: 03/23/2023 DATE OF LAST VISIT: 01/19/2023 SUBJECTIVE: HPI:Yara Loya is a 72 year old female presenting alone. She consulted with her shoulder surgeon who indicated that her pain is attributed to her spine. She continues to have radiating right shoulder pain to the neck and arm, although it has improved. The patient had been experiencing throbbing and stabbing pain in her hands and right arm, for which she tried various interventions including heating pads, ice, and medications, without relief. However, she recently started taking turmeric, and she notes that approximately two weeks after initiating this supplement, her pain resolved. However, she continues to have numbness in her hands She is followed by Dr. Leslie Hackett and has been receiving Evenity injections. She is also followed by Rheumatology for her RA and is in treatment with methotrexate. Of note: she had COVID-19 approximately 3 months ago. PAIN EVALUATION No data found in the last 1 encounters. Pain Radiation: from the neck to the right shoulder REVIEW OF SYSTEMS: GENERAL: No weight loss or malaise MUSCULOSKELETAL: Negative for joint pain, swelling or muscle pain NEURO: No history of headaches, syncope, paralysis, seizures or tremors MEDICATIONS: multivitamin tabletTake 1 tablet by mouth once daily.Disp: Rfl: TURMERIC ORALTake 1 tablet by mouth once daily.Disp: Rfl: iv contrast (will be provided with radiology test)MRI CSP Inject, intravenously, once for 1 dose. No IV access, insert saline lock prior to the beginning of sedation, infusion, injection of imaging exam. Discontinue saline lock post exam. If Pt. has a central line or IVAD, may access for administration according to line specific nursing protocol. Once exam is complete flush line and de-access according to line specific nursing protocol in the MR contrast administration guidelines link.Disp: 1 EachRfl: 0 iv contrast (will be provided with radiology test)MRI TSP Inject, intravenously, once for 1 dose. No IV access, insert saline lock prior to the beginning of sedation, infusion, injection of imaging exam. Discontinue saline lock post exam. If Pt. has a central line or IVAD, may access for administration according to line specific nursing protocol. Once exam is complete flush line and de-access according to line specific nursing protocol in the MR contrast administration guidelines link.Disp: 1 EachRfl: 0 hydrOXYchloroQUINE (PLAQUENIL) 200 mg tabletTake 200 mg by mouth once daily.Disp: Rfl: folic acid 0.8 mg capTake 2 capsules by mouth once daily.Disp: Rfl: methotrexate 2.5 mg tabletTake 8 tablets by mouth once weekly.Disp: Rfl: oxyCODONE myristate (XTAMPZA ER) 13.5 mg CSpTTake 1 capsule by mouth two times a day.Disp: Rfl: cholecalciferol (VITAMIN D3) 5,000 unit tabTake 5,000 Units by mouth once daily.Disp: Rfl: predniSONE (DELTASONE) 10 mg tabletTake 10 mg by mouth once daily.Disp: Rfl: OMEGA-3 FATTY ACIDS/FISH OIL (OMEGA 3 FISH OIL ORAL)Take by mouth once daily.Disp: Rfl: methocarbamol (ROBAXIN-750) 750 mg tabletTake 1 tablet by mouth three times daily as needed.Disp: 60 tabletRfl: 0 (Patient not taking: Reported on 03/23/2023) BIOTIN ORALTake 2 tablets by mouth once daily. 6000 MCG Biotin, with Keratin 50 mgDisp: Rfl: (Patient not taking: Reported on 03/23/2023) CALCIUM ORALTake 600 mg by mouth once daily.Disp: Rfl: (Patient not taking: Reported on 03/23/2023) cetirizine (ZYRTEC) 10 mg tabletTake 10 mg by mouth once daily.Disp: Rfl: (Patient not taking: Reported on 03/23/2023) gabapentin (NEURONTIN) 300 mg capsuleTake 1 capsule by mouth twice daily for 180 days.Disp: 180 capsuleRfl: 1 (Patient not taking: Reported on 03/23/2023) CALCIUM CARBONATE (CALCIUM 300 ORAL)Take 1 tablet by mouth once daily.Disp: Rfl: (Patient not taking: Reported on 03/23/2023) meloxicam (MOBIC) 15 mg tabletTake 1 tablet by mouth once daily. Take with food.Disp: 30 tabletRfl: 2 (Patient not taking: Reported on 03/23/2023) Patient Entered Questionnaires Spine Questions 10/20/2022 03/23/2023 Pain Location: Neck Neck Pain Duration: 1-3 months - Symptoms from neck/cervical spine: Yes Yes Employment Status: Retired Retired Involved in law suit/legal claim: No - Neck Questionnaires 10/20/2022 03/23/2023 Benzel Modified BIANCA Score 10 (A lower score indicates increased pain and issues.) 14 (A lower score indicates increased pain and issues.) PROMIS Score Percentiles Physical Health 10/20/2022 03/23/2023 Physical Function Percentile 8 7 Sleep Percentile 34 34 Fatigue Percentile 50 12 Pain Interference Percentile 12 10 PROMIS SOCIAL ROLE SCORE 10/20/2022 03/23/2023 Social Role Satisfaction Percentile 31 42 (more content not included)... [facility] 03-23-2023 Nurse Note The patient is here for an injection of Evenity Injection #6 of 12 Dose: 210 mg (105 mg/1.17 mL X2). Route: Subcutaneous Lot# [id number] Expiration date 01/31/2025 [facility]: 39980-365-30 Given without incident. Site: Right arm Dr. Dougherty present in clinic at time of injection. The date due for the next injection is in 30 days. On or after 04/22/23. Last Injection: 02/18/23 DAVID: 09/10/2022 NOV: 05/27/23 Insurance: Primary= Medicare, Secondary= MMO-- No PA Required Labs: 07/29/22 Calcium 9.7, Vitamin D 45.7 DX: M81.0 CPT: J3111 DXA: 10/16/20 (TScore -2.9) Patient education was given by nurse. Patient tolerated Injection well, in NAD and no reactions noted. Medication supplied by [facility]. Lyric Queen RN documented in this encounter [facility] 03-23-2023 History of Present illness Narrative SPINE SURGERY ESTABLISHED This is an in-person visit. DATE OF SERVICE: 03/23/2023 DATE OF LAST VISIT: 01/19/2023 SUBJECTIVE: HPI:Yara Loya is a 72 year old female presenting alone. She consulted with her shoulder surgeon who indicated that her pain is attributed to her spine. She continues to have radiating right shoulder pain to the neck and arm, although it has improved. The patient had been experiencing throbbing and stabbing pain in her hands and right arm, for which she tried various interventions including heating pads, ice, and medications, without relief. However, she recently started taking turmeric, and she notes that approximately two weeks after initiating this supplement, her pain resolved. However, she continues to have numbness in her hands She is followed by Dr. Leslie Hackett and has been receiving Evenity injections. She is also followed by Rheumatology for her RA and is in treatment with methotrexate. Of note: she had COVID-19 approximately 3 months ago. PAIN EVALUATION No data found in the last 1 encounters. Pain Radiation: from the neck to the right shoulder REVIEW OF SYSTEMS: GENERAL: No weight loss or malaise MUSCULOSKELETAL: Negative for joint pain, swelling or muscle pain NEURO: No history of headaches, syncope, paralysis, seizures or tremors MEDICATIONS: multivitamin tablet^Take 1 tablet by mouth once daily.^Disp: ^Rfl: TURMERIC ORAL^Take 1 tablet by mouth once daily.^Disp: ^Rfl: iv contrast (will be provided with radiology test)^MRI CSP Inject, intravenously, once for 1 dose. No IV access, insert saline lock prior to the beginning of sedation, infusion, injection of imaging exam. Discontinue saline lock post exam. If Pt. has a central line or IVAD, may access for administration according to line specific nursing protocol. Once exam is complete flush line and de-access according to line specific nursing protocol in the MR contrast administration guidelines link.^Disp: 1 Each^Rfl: 0 iv contrast (will be provided with radiology test)^MRI TSP Inject, intravenously, once for 1 dose. No IV access, insert saline lock prior to the beginning of sedation, infusion, injection of imaging exam. Discontinue saline lock post exam. If Pt. has a central line or IVAD, may access for administration according to line specific nursing protocol. Once exam is complete flush line and de-access according to line specific nursing protocol in the MR contrast administration guidelines link.^Disp: 1 Each^Rfl: 0 hydrOXYchloroQUINE (PLAQUENIL) 200 mg tablet^Take 200 mg by mouth once daily.^Disp: ^Rfl: folic acid 0.8 mg cap^Take 2 capsules by mouth once daily.^Disp: ^Rfl: methotrexate 2.5 mg tablet^Take 8 tablets by mouth once weekly.^Disp: ^Rfl: oxyCODONE myristate (XTAMPZA ER) 13.5 mg CSpT^Take 1 capsule by mouth two times a day.^Disp: ^Rfl: cholecalciferol (VITAMIN D3) 5,000 unit tab^Take 5,000 Units by mouth once daily.^Disp: ^Rfl: predniSONE (DELTASONE) 10 mg tablet^Take 10 mg by mouth once daily.^Disp: ^Rfl: OMEGA-3 FATTY ACIDS/FISH OIL (OMEGA 3 FISH OIL ORAL)^Take by mouth once daily.^Disp: ^Rfl: methocarbamol (ROBAXIN-750) 750 mg tablet^Take 1 tablet by mouth three times daily as needed.^Disp: 60 tablet^Rfl: 0 (Patient not taking: Reported on 03/23/2023) BIOTIN ORAL^Take 2 tablets by mouth once daily. 6000 MCG Biotin, with Keratin 50 mg^Disp: ^Rfl: (Patient not taking: Reported on 03/23/2023) CALCIUM ORAL^Take 600 mg by mouth once daily.^Disp: ^Rfl: (Patient not taking: Reported on 03/23/2023) cetirizine (ZYRTEC) 10 mg tablet^Take 10 mg by mouth once daily.^Disp: ^Rfl: (Patient not taking: Reported on 03/23/2023) gabapentin (NEURONTIN) 300 mg capsule^Take 1 capsule by mouth twice daily for 180 days.^Disp: 180 capsule^Rfl: 1 (Patient not taking: Reported on 03/23/2023) CALCIUM CARBONATE (CALCIUM 300 ORAL)^Take 1 tablet by mouth once daily.^Disp: ^Rfl: (Patient not taking: Reported on 03/23/2023) meloxicam (MOBIC) 15 mg tablet^Take 1 tablet by mouth once daily. Take with food.^Disp: 30 tablet^Rfl: 2 (Patient not taking: Reported on 03/23/2023) Patient Entered Questionnaires Spine Questions 10/20/2022 03/23/2023 Pain Location: Neck Neck Pain Duration: 1-3 months - Symptoms from neck/cervical spine: Yes Yes Employment Status: Retired Retired Involved in law suit/legal claim: No - Neck Questionnaires 10/20/2022 03/23/2023 Benzel Modified BIANCA Score 10 (A lower score indicates increased pain and issues.) 14 (A lower score indicates increased pain and issues.) PROMIS Score Percentiles Physical Health 10/20/2022 03/23/2023 Physical Function Percentile 8 7 Sleep Percentile 34 34 Fatigue Percentile 50 12 Pain Interference Percentile 12 10 PROMIS SOCIAL ROLE SCORE 10/20/2022 03/23/2023 Social Role Satisfaction Percentile 31 42 PROMIS Global Health Scale 10/20/2022 03/23/2023 03/23/2023 Physical Health Percentile 15 22* 22* Mental Health Percentile 9 - - Percentiles provide an indication of how the patient's score ranks in relation to the general population. Higher percentile rankings indicate better function/quality of life. 50th percentile is the average of the general population and indicates half of respondents had a worse score. Depression Screening: PHQ-9 05/30/2015 02/20/2016 10/20/2022 Score 23 21 7 PHQ-9 Self-harm Question 05/30/2015 02/20/2016 10/20/2022 Thoughts that you would be better off , or of hurting yourself in some way 3 2 0 PHQ-9 Self-Harm (Item 9) response options: 0 Not at all 1 Several days 2 More than half the days 3 Nearly every day PHQ-9 Levels: 0-4 No to mild depression 5-9 Mild depression 10-14 Moderate depression 15-19 Moderately severe depression 20-27 Severe depression OBJECTIVE: PHYSICAL EXAM: BP 116/75 Pulse 79 Ht 4' 10 (1.47m) SpO2 98% Oriented x3 PERRL FS Motor: UE D 5/5, B 5/5, T 5/5, G 5/5, HI 5/5 LE HF 5/5, KE 5/5, DF 5/5, PF 5/5, EHL 5/5 Incision C/D/I NEURO TESTS: None DATA REVIEW:Diagnostic tests reviewed for today's visit, films/specimens were personally reviewed by me: [facility] records independently reviewed Images independently reviewed with the patient ASSESSMENT/PLAN (S22.031D) Closed stable burst fracture of third thoracic vertebra with routine healing, subsequent encounter (primary encounter diagnosis) Yara Loya will continue with medical management of his/her condition. 1. No orders placed today. Continue with conservative management 2. Follow up: Six months Imaging Ordered: None The majority of the visit was spent counseling and/or coordinating care for the patient. The patient was counseled regarding cervical stenosis. Total face to face time was 15 minutes. I agree with the Chief Complaint, ROS, and Past Histories independently gathered by the clinical application support and the remaining scribed note accurately describes my personal service to the patient. The documentation for this note was completed by Nancy Bower acting as scribe for Jamie Bull MD. March 23, 2023 9:33 AM. I agree with the operative note independently gathered by the clinical application support and the remaining scribed note accurately describes my personal service to the patient. SIGNATURE: Jamie Bull MD PATIENT NAME: Yara Loya DATE: March 23, 2023 TIME: 9:27 AM PAGER: documented in this encounter [facility] 03-13-2023 Note HNO ID: [id number] Author: Becky Reno RT(R) Service: ? Author Type: Campaign Management Specialist Type: Progress Notes Filed: 03/13/2023 12:05 PM Note Text: Radiology Service Progress Note DATE OF SERVICE: March 13, 2023 TIME: 12:04 PM PATIENT IDENTITY VERIFICATION COMPLETED USING TWO (2) STANDARD IDENTIFIERS: Name and Date of confirmed by patient verbally. FALL SCREENING: Has the patient had 2 falls in the last year or 1 fall with injury or currently using an Ambulatory Assistive Device (Walker, Cane, Wheelchair, Crutches, etc.)? No PATIENT GENDER DATA: Female. status: : No status: NO. PATIENT RELEVANT IMPLANT DATA REVIEWED: Yes ALLERGIES: Reviewed and unchanged CONTRAST ALLERGY: NO. EXAM: CT -CONTRAST INDUCED NEPHROPATHY RISK FACTORS: Patient age > 60 years CREATININE: Creatinine Date Value Ref Range Status 03/13/2023 0.88 0.58 - 0.96 mg/dL Final 03/13/2023 0.89 0.58 - 0.96 mg/dL Final 02/25/2023 0.88 0.58 - 0.96 mg/dL Final Estimated Glomerular Filtration Rate Date Value Ref Range Status 03/13/2023 70 >=60 mL/min/1.73m? Final Comment: Estimated Glomerular Filtration Rate (eGFR) is calculated using the 2020 CKD-EPI creatinine equation. This equation utilizes serum creatinine, sex, and age as parameters. The creatinine assay has traceable calibration to isotope dilution-mass spectrometry. Refer to KDIGO guidelines for clinical interpretation. In patients with unstable renal function, e.g. those with acute kidney injury, the eGFR may not accurately reflect actual GFR. 03/13/2023 69 >=60 mL/min/1.73m? Final Comment: Estimated Glomerular Filtration Rate (eGFR) is calculated using the 2020 CKD-EPI creatinine equation. This equation utilizes serum creatinine, sex, and age as parameters. The creatinine assay has traceable calibration to isotope dilution-mass spectrometry. Refer to KDIGO guidelines for clinical interpretation. In patients with unstable renal function, e.g. those with acute kidney injury, the eGFR may not accurately reflect actual GFR. eGFR- Date Value Ref Range Status 03/12/2016 >60 Final P.O.C.T. RESULTS: POC done: Yes, See Lab Tab March 13, 2023 TREATMENT: N/A PERIPHERAL IV DATA: Ambulatory: A peripheral IV was started in the Left antecubital site with a Angio cath: 22 gauge. RADIOLOGY DEPARTMENT: CT; Exam(s) Completed: Chest Abdomen Pelvis SIGNATURE: RT Aaron(R) PATIENT NAME: Yara oLya DATE: March 13, 2023 TIME: 12:04 PM [facility] 03-13-2023 History of Present illness Narrative Radiology Service Progress Note DATE OF SERVICE: March 13, 2023 TIME: 12:04 PM PATIENT IDENTITY VERIFICATION COMPLETED USING TWO (2) STANDARD IDENTIFIERS: Name and Date of confirmed by patient verbally. FALL SCREENING: Has the patient had 2 falls in the last year or 1 fall with injury or currently using an Ambulatory Assistive Device (Walker, Cane, Wheelchair, Crutches, etc.)? No PATIENT GENDER DATA: Female. status: : No status: NO. PATIENT RELEVANT IMPLANT DATA REVIEWED: Yes ALLERGIES: Reviewed and unchanged CONTRAST ALLERGY: NO. EXAM: CT -CONTRAST INDUCED NEPHROPATHY RISK FACTORS: Patient age > 60 years CREATININE: Creatinine Date Value Ref Range Status 03/13/2023 0.88 0.58 - 0.96 mg/dL Final 03/13/2023 0.89 0.58 - 0.96 mg/dL Final 02/25/2023 0.88 0.58 - 0.96 mg/dL Final Estimated Glomerular Filtration Rate Date Value Ref Range Status 03/13/2023 70 >=60 mL/min/1.73m Final Comment: Estimated Glomerular Filtration Rate (eGFR) is calculated using the 2020 CKD-EPI creatinine equation. This equation utilizes serum creatinine, sex, and age as parameters. The creatinine assay has traceable calibration to isotope dilution-mass spectrometry. Refer to KDIGO guidelines for clinical interpretation. In patients with unstable renal function, e.g. those with acute kidney injury, the eGFR may not accurately reflect actual GFR. 03/13/2023 69 >=60 mL/min/1.73m Final Comment: Estimated Glomerular Filtration Rate (eGFR) is calculated using the 2020 CKD-EPI creatinine equation. This equation utilizes serum creatinine, sex, and age as parameters. The creatinine assay has traceable calibration to isotope dilution-mass spectrometry. Refer to KDIGO guidelines for clinical interpretation. In patients with unstable renal function, e.g. those with acute kidney injury, the eGFR may not accurately reflect actual GFR. eGFR- Date Value Ref Range Status 03/12/2016 >60 Final P.O.C.T. RESULTS: POC done: Yes, See Lab Tab March 13, 2023 TREATMENT: N/A PERIPHERAL IV DATA: Ambulatory: A peripheral IV was started in the Left antecubital site with a Angio cath: 22 gauge. RADIOLOGY DEPARTMENT: CT; Exam(s) Completed: Chest Abdomen Pelvis SIGNATURE: RT Aaron(R) PATIENT NAME: Yara Loya DATE: March 13, 2023 TIME: 12:04 PM documented in this encounter [facility] 02-25-2023 Note HNO ID: [id number] Author: Wisam Mills MD Service: ? Author Type: Physician Type: Progress Notes Filed: 02/25/2023 12:21 PM Note Text: (Elements copied from my note dated August 26, 2022, have been reviewed and updated where appropriate, and all reflect current assessment and medical decision making from today's encounter, February 25, 2023) HISTORY OF PRESENT ILLNESS: Yara Loya is a 71 year old female referred for monoclonal gammopathy. Feels well, found on basis of osteopenia work up. Reviewed possible implications. Here for follow up, reviewed labs CLINICAL IMPRESSION: Monoclonal gammopathy, IgM subtype RECOMMENDATION/PLAN: 1. CT scans, labs, virtual visit after scans, will arrange follow up after that. Written and verbal health teaching given to patient, patient verbalizes understanding and agrees with treatment plan. PAST MEDICAL HISTORY Diagnosis Date Arthritis of neck Fibromyalgia Herniated disc, cervical she says she has 7 herniated discs Osteoporosis PAST SURGICAL HISTORY Procedure Laterality Date ARTHRD ANT INTERBODY MIN DSC CRV BELOW C2 12/14/14 DISCECTOMY ANT DCMPRN CORD CERVICAL 1 [facility] 12/14/14 DISCECTOMY ANT DCMPRN CORD CERVICAL EA [facility] 12/14/14 HEMORRHOID SURGERY HX 2013 PAST SURGICAL HISTORY OF 2000 back, done by ?DR. Kelley? TONSILLECTOMY AND ADENOIDECTOMY FAMILY HISTORY Problem Relation Age of Onset Stroke Mother Stroke Father Social History Tobacco Use Smoking status: Former Packs/day: 1.00 Years: 45.00 Additional pack years: 0.00 Total pack years: 45.00 Types: Cigarettes Quit date: 04/12/2013 Years since quittin.8 Smokeless tobacco: Never Substance Use Topics Alcohol use: No Drug use: No ALLERGIES: ALLERGIES Allergen Reactions Seasonal Allergies Other: See Comments sinus CURRENT OUTPATIENT MEDICATIONS: multivitamin tabletTake 1 tablet by mouth once daily.Disp: Rfl: TURMERIC ORALTake 1 tablet by mouth once daily.Disp: Rfl: hydrOXYchloroQUINE (PLAQUENIL) 200 mg tabletTake 200 mg by mouth once daily.Disp: Rfl: folic acid 0.8 mg capTake 2 capsules by mouth once daily.Disp: Rfl: methotrexate 2.5 mg tabletTake 8 tablets by mouth once weekly.Disp: Rfl: oxyCODONE myristate (XTAMPZA ER) 13.5 mg CSpTTake 1 capsule by mouth two times a day.Disp: Rfl: cholecalciferol (VITAMIN D3) 5,000 unit tabTake 5,000 Units by mouth once daily.Disp: Rfl: predniSONE (DELTASONE) 10 mg tabletTake 10 mg by mouth once daily.Disp: Rfl: methocarbamol (ROBAXIN-750) 750 mg tabletTake 1 tablet by mouth three times daily as needed.Disp: 60 tabletRfl: 0 linaclotide (LINZESS) 145 mcg capsuleTake by mouth as needed.Disp: Rfl: BIOTIN ORALTake 2 tablets by mouth once daily. 6000 MCG Biotin, with Keratin 50 mgDisp: Rfl: CALCIUM ORALTake 600 mg by mouth once daily.Disp: Rfl: (Patient not taking: Reported on 10/20/2022) iv contrast (will be provided with radiology test)MRI CSP Inject, intravenously, once for 1 dose. No IV access, insert saline lock prior to the beginning of sedation, infusion, injection of imaging exam. Discontinue saline lock post exam. If Pt. has a central line or IVAD, may access for administration according to line specific nursing protocol. Once exam is complete flush line and de-access according to line specific nursing protocol in the MR contrast administration guidelines link.Disp: 1 EachRfl: 0 (Patient not taking: Reported on 10/20/2022) iv contrast (will be provided with radiology test)MRI TSP Inject, intravenously, once for 1 dose. No IV access, insert saline lock prior to the beginning of sedation, infusion, injection of imaging exam. Discontinue saline lock post exam. If Pt. has a central line or IVAD, may access for administration according to line specific nursing protocol. Once exam is complete flush line and de-access according to line specific nursing protocol in the MR contrast administration guidelines link.Disp: 1 EachRfl: 0 (Patient not taking: Reported on 10/20/2022) cetirizine (ZYRTEC) 10 mg tabletTake 10 mg by mouth once daily.Disp: Rfl: gabapentin (NEURONTIN) 300 mg capsuleTake 1 capsule by mouth twice daily for 180 days.Disp: 180 capsuleRfl: 1 (Patient not taking: Reported on 10/20/2022) CALCIUM CARBONATE (CALCIUM 300 ORAL)Take 1 tablet by mouth once daily.Disp: Rfl: (Patient not taking: Reported on 10/20/2022) meloxicam (MOBIC) 15 mg tabletTake 1 tablet by mouth once daily. Take with food.Disp: 30 tabletRfl: 2 (Patient not taking: Reported on 10/20/2022) OMEGA-3 FATTY ACIDS/FISH OIL (OMEGA 3 FISH OIL ORAL)Take by mouth once daily.Disp: Rfl: (Patient not taking: Reported on 10/20/2022) REVIEW OF SYSTEMS: GENERAL: No fever, night sweats, weight loss or malaise. All other reviewed and negative other than HPI. PHYSICAL EXAMINATION: VITAL SIGNS: BP 114/74 Pulse 68 Temp (Src) 98 (Temporal) Ht 4' 10 (1.47m) Wt 97 lb (44.0kg) SpO2 99% BMI 20.28 kg/( (more content not included)... [facility] 02-25-2023 History of Present illness Narrative (Elements copied from my note dated August 26, 2022, have been reviewed and updated where appropriate, and all reflect current assessment and medical decision making from today's encounter, February 25, 2023) HISTORY OF PRESENT ILLNESS: Yara Loya is a 71 year old female referred for monoclonal gammopathy. Feels well, found on basis of osteopenia work up. Reviewed possible implications. Here for follow up, reviewed labs CLINICAL IMPRESSION: Monoclonal gammopathy, IgM subtype RECOMMENDATION/PLAN: 1. CT scans, labs, virtual visit after scans, will arrange follow up after that. Written and verbal health teaching given to patient, patient verbalizes understanding and agrees with treatment plan. PAST MEDICAL HISTORY Diagnosis Date Arthritis of neck Fibromyalgia Herniated disc, cervical she says she has 7 herniated discs Osteoporosis PAST SURGICAL HISTORY Procedure Laterality Date ARTHRD ANT INTERBODY MIN DSC CRV BELOW C2 12/14/14 DISCECTOMY ANT DCMPRN CORD CERVICAL 1 [facility] 12/14/14 DISCECTOMY ANT DCMPRN CORD CERVICAL EA [facility] 12/14/14 HEMORRHOID SURGERY HX 2013 PAST SURGICAL HISTORY OF 2000 back, done by ?DR. Kelley? TONSILLECTOMY & ADENOIDECTOMY <AGE 12 FAMILY HISTORY Problem Relation Age of Onset Stroke Mother Stroke Father Social History Tobacco Use Smoking status: Former Packs/day: 1.00 Years: 45.00 Additional pack years: 0.00 Total pack years: 45.00 Types: Cigarettes Quit date: 04/12/2013 Years since quittin.8 Smokeless tobacco: Never Substance Use Topics Alcohol use: No Drug use: No ALLERGIES: ALLERGIES Allergen Reactions Seasonal Allergies Other: See Comments sinus CURRENT OUTPATIENT MEDICATIONS: multivitamin tablet^Take 1 tablet by mouth once daily.^Disp: ^Rfl: TURMERIC ORAL^Take 1 tablet by mouth once daily.^Disp: ^Rfl: hydrOXYchloroQUINE (PLAQUENIL) 200 mg tablet^Take 200 mg by mouth once daily.^Disp: ^Rfl: folic acid 0.8 mg cap^Take 2 capsules by mouth once daily.^Disp: ^Rfl: methotrexate 2.5 mg tablet^Take 8 tablets by mouth once weekly.^Disp: ^Rfl: oxyCODONE myristate (XTAMPZA ER) 13.5 mg CSpT^Take 1 capsule by mouth two times a day.^Disp: ^Rfl: cholecalciferol (VITAMIN D3) 5,000 unit tab^Take 5,000 Units by mouth once daily.^Disp: ^Rfl: predniSONE (DELTASONE) 10 mg tablet^Take 10 mg by mouth once daily.^Disp: ^Rfl: methocarbamol (ROBAXIN-750) 750 mg tablet^Take 1 tablet by mouth three times daily as needed.^Disp: 60 tablet^Rfl: 0 linaclotide (LINZESS) 145 mcg capsule^Take by mouth as needed.^Disp: ^Rfl: BIOTIN ORAL^Take 2 tablets by mouth once daily. 6000 MCG Biotin, with Keratin 50 mg^Disp: ^Rfl: CALCIUM ORAL^Take 600 mg by mouth once daily.^Disp: ^Rfl: (Patient not taking: Reported on 10/20/2022) iv contrast (will be provided with radiology test)^MRI CSP Inject, intravenously, once for 1 dose. No IV access, insert saline lock prior to the beginning of sedation, infusion, injection of imaging exam. Discontinue saline lock post exam. If Pt. has a central line or IVAD, may access for administration according to line specific nursing protocol. Once exam is complete flush line and de-access according to line specific nursing protocol in the MR contrast administration guidelines link.^Disp: 1 Each^Rfl: 0 (Patient not taking: Reported on 10/20/2022) iv contrast (will be provided with radiology test)^MRI TSP Inject, intravenously, once for 1 dose. No IV access, insert saline lock prior to the beginning of sedation, infusion, injection of imaging exam. Discontinue saline lock post exam. If Pt. has a central line or IVAD, may access for administration according to line specific nursing protocol. Once exam is complete flush line and de-access according to line specific nursing protocol in the MR contrast administration guidelines link.^Disp: 1 Each^Rfl: 0 (Patient not taking: Reported on 10/20/2022) cetirizine (ZYRTEC) 10 mg tablet^Take 10 mg by mouth once daily.^Disp: ^Rfl: gabapentin (NEURONTIN) 300 mg capsule^Take 1 capsule by mouth twice daily for 180 days.^Disp: 180 capsule^Rfl: 1 (Patient not taking: Reported on 10/20/2022) CALCIUM CARBONATE (CALCIUM 300 ORAL)^Take 1 tablet by mouth once daily.^Disp: ^Rfl: (Patient not taking: Reported on 10/20/2022) meloxicam (MOBIC) 15 mg tablet^Take 1 tablet by mouth once daily. Take with food.^Disp: 30 tablet^Rfl: 2 (Patient not taking: Reported on 10/20/2022) OMEGA-3 FATTY ACIDS/FISH OIL (OMEGA 3 FISH OIL ORAL)^Take by mouth once daily.^Disp: ^Rfl: (Patient not taking: Reported on 10/20/2022) REVIEW OF SYSTEMS: GENERAL: No fever, night sweats, weight loss or malaise. All other reviewed and negative other than HPI. PHYSICAL EXAMINATION: VITAL SIGNS: BP 114/74 Pulse 68 Temp (Src) 98 (Temporal) Ht 4' 10 (1.47m) Wt 97 lb (44.0kg) SpO2 99% BMI 20.28 kg/(m^2). GENERAL APPEARANCE: Well appearing, in no acute distress, alert and oriented x3, well-hydrated, well nourished. No adenopathy or splenomegaly I spent a total of 30 minutes on the date of the service which included preparing to see the patient, [id number] patient care, completing clinical documentation, obtaining and/or reviewing separately obtained history, counseling and educating the patient/family/caregiver, ordering medications, tests, or procedures, independently interpreting results (not separately reported), and communicating results to the patient/family/caregiver. Electronically Signed: Wisam Mills MD February 25, 2023 documented in this encounter [facility] 02-18-2023 Nurse Note The patient is here for an injection of Evenity Injection #5 of 12 Dose: 210 mg (105 mg/1.17 mL X2). Route: Subcutaneous Lot# [id number] Expiration date 01/31/2025 [facility]: 71412-989-50 Given without incident. Site: Right arm Dr. Hackett present in clinic at time of injection. The date due for the next injection is in 30 days. On or after 03/21/2023. Last Injection: 01/19/23 DAVID: 09/10/2022 NOV: 03/17/2023 (patient will be rescheduling for 05/2023 per her choice) Insurance: Primary= Medicare, Secondary= O-- No PA Required Labs: 07/29/22 Calcium 9.7, Vitamin D 45.7 DX: M81.0 CPT: J3111 DXA: 10/16/20 (TScore -2.9) Patient education was given by nurse. Patient tolerated Injection well, in NAD and no reactions noted. Medication supplied by [facility] [employer]. Yuliana Bagley RN documented in this encounter [facility] 01-26-2023 Miscellaneous Notes CD/REPORT READY FOR NURSE ORTHOPEDIC AT [facility] RADIOLOGY FM FOR PT Pt requesting disc of ct taken on 01/23 Lalitha Ramos January 23, 2023 11:32 AM documented in this encounter [facility] 01-23-2023 Note HNO ID: [id number] Author: Becky Reno RT(R) Service: ? Author Type: Campaign Management Specialist Type: Progress Notes Filed: 01/23/2023 3:17 PM Note Text: Radiology Service Progress Note PATIENT NAME: Yara Loya DATE OF SERVICE: January 23, 2023 TIME: 3:17 PM PATIENT IDENTITY VERIFICATION COMPLETED USING TWO (2) IDENTIFIERS: Name and Date of confirmed by patient verbally. FALL SCREENING: Has the patient had 2 falls in the last year or 1 fall with injury or currently using an Ambulatory Assistive Device (Walker, Cane, Wheelchair, Crutches, etc.)? No PATIENT GENDER DATA: Female. status: : No status: NO. PATIENT RELEVANT IMPLANT DATA REVIEWED: Yes RADIOLOGY DEPARTMENT: CT; Exam(s) Completed: Spine PERIPHERAL IV DATA: Not applicable SIGNED BY: RT Aaron([place]) January 23, 2023 3:17 PM [facility] 01-19-2023 Note HNO ID: [id number] Author: Jamie Bull MD Service: ? Author Type: Physician Type: Progress Notes Filed: 01/19/2023 4:04 PM Note Text: SPINE SURGERY ESTABLISHED This is an in-person visit. DATE OF SERVICE: 01/19/2023 DATE OF LAST VISIT: 10/20/2022 SUBJECTIVE: HPI:Yara Loya is a 72 year old female presenting alone. She complains of continual shoulder pain that radiates to her neck and arms. She reports the pain and numbness radiates down her arm into her fingers. She does have significant pain with shoulder lateral and medial rotation. Notes that she now feels tired every day and often takes naps. PAIN EVALUATION No data found in the last 1 encounters. Pain Radiation: from the neck to her arms. Aggravating Factors: exacerbation. Alleviating Factors: None Pain Ratio: Pain in the shoulder is greater than in the neck AMBULATORY STATUS: Independent Community Distances REVIEW OF SYSTEMS: GENERAL: No weight loss or malaise MUSCULOSKELETAL: Negative for joint pain, swelling or muscle pain NEURO: No history of headaches, syncope, paralysis, seizures or tremors MEDICATIONS: methocarbamol (ROBAXIN-750) 750 mg tabletTake 1 tablet by mouth three times daily as needed.Disp: 60 tabletRfl: 0 linaclotide (LINZESS) 145 mcg capsuleTake by mouth as needed.Disp: Rfl: BIOTIN ORALTake 2 tablets by mouth once daily. 6000 MCG Biotin, with Keratin 50 mgDisp: Rfl: CALCIUM ORALTake 600 mg by mouth once daily.Disp: Rfl: (Patient not taking: Reported on 10/20/2022) iv contrast (will be provided with radiology test)MRI CSP Inject, intravenously, once for 1 dose. No IV access, insert saline lock prior to the beginning of sedation, infusion, injection of imaging exam. Discontinue saline lock post exam. If Pt. has a central line or IVAD, may access for administration according to line specific nursing protocol. Once exam is complete flush line and de-access according to line specific nursing protocol in the MR contrast administration guidelines link.Disp: 1 EachRfl: 0 (Patient not taking: Reported on 10/20/2022) iv contrast (will be provided with radiology test)MRI TSP Inject, intravenously, once for 1 dose. No IV access, insert saline lock prior to the beginning of sedation, infusion, injection of imaging exam. Discontinue saline lock post exam. If Pt. has a central line or IVAD, may access for administration according to line specific nursing protocol. Once exam is complete flush line and de-access according to line specific nursing protocol in the MR contrast administration guidelines link.Disp: 1 EachRfl: 0 (Patient not taking: Reported on 10/20/2022) hydrOXYchloroQUINE (PLAQUENIL) 200 mg tabletTake 200 mg by mouth once daily.Disp: Rfl: folic acid 0.8 mg capTake 2 capsules by mouth once daily.Disp: Rfl: methotrexate 2.5 mg tabletTake 2.5 mg by mouth one time only. Taking 6 tablets one day a week on Disp: Rfl: oxyCODONE myristate (XTAMPZA ER) 13.5 mg CSpTTake by mouth.Disp: Rfl: cholecalciferol (VITAMIN D3) 5,000 unit tabTake 5,000 Units by mouth once daily.Disp: Rfl: cetirizine (ZYRTEC) 10 mg tabletTake 10 mg by mouth once daily.Disp: Rfl: predniSONE (DELTASONE) 10 mg tabletTake 10 mg by mouth once daily.Disp: Rfl: gabapentin (NEURONTIN) 300 mg capsuleTake 1 capsule by mouth twice daily for 180 days.Disp: 180 capsuleRfl: 1 (Patient not taking: Reported on 10/20/2022) CALCIUM CARBONATE (CALCIUM 300 ORAL)Take 1 tablet by mouth once daily.Disp: Rfl: (Patient not taking: Reported on 10/20/2022) meloxicam (MOBIC) 15 mg tabletTake 1 tablet by mouth once daily. Take with food.Disp: 30 tabletRfl: 2 (Patient not taking: Reported on 10/20/2022) OMEGA-3 FATTY ACIDS/FISH OIL (OMEGA 3 FISH OIL ORAL)Take by mouth once daily.Disp: Rfl: (Patient not taking: Reported on 10/20/2022) Patient Entered Questionnaires Spine Questions 10/20/2022 Pain Location: Neck Pain Duration: 1-3 months Symptoms from neck/cervical spine: Yes Employment Status: Retired Involved in law suit/legal claim: No Neck Questionnaires 10/20/2022 Benzel Modified BIANCA Score 10 (A lower score indicates increased pain and issues.) PROMIS Score Percentiles Physical Health 10/20/2022 Physical Function Percentile 8 Sleep Percentile 34 Fatigue Percentile 50 Pain Interference Percentile 12 PROMIS SOCIAL ROLE SCORE 10/20/2022 Social Role Satisfaction Percentile 31 PROMIS Global Health Scale 03/12/2016 04/09/2016 10/20/2022 Physical Health Percentile 4 0 15 Mental Health Percentile 3 1 9 Percentiles provide an indication of how the patient's score ranks in relation to the general population. Higher percentile rankings indicate better function/quality of life. 50th percentile is the average of the general population and indicates half of respondents had a worse score. Depression Screening: PHQ-9 05/30/2015 02/20/2016 10/20/2022 Score 23 21 7 PHQ-9 Self-harm Question 05/30/2015 10/ (more content not included)... [facility] 01-19-2023 History of Present illness Narrative SPINE SURGERY ESTABLISHED This is an in-person visit. DATE OF SERVICE: 01/19/2023 DATE OF LAST VISIT: 10/20/2022 SUBJECTIVE: HPI:Yara Loya is a 72 year old female presenting alone. She complains of continual shoulder pain that radiates to her neck and arms. She reports the pain and numbness radiates down her arm into her fingers. She does have significant pain with shoulder lateral and medial rotation. Notes that she now feels tired every day and often takes naps. PAIN EVALUATION No data found in the last 1 encounters. Pain Radiation: from the neck to her arms. Aggravating Factors: exacerbation. Alleviating Factors: None Pain Ratio: Pain in the shoulder is greater than in the neck AMBULATORY STATUS: Independent Community Distances REVIEW OF SYSTEMS: GENERAL: No weight loss or malaise MUSCULOSKELETAL: Negative for joint pain, swelling or muscle pain NEURO: No history of headaches, syncope, paralysis, seizures or tremors MEDICATIONS: methocarbamol (ROBAXIN-750) 750 mg tablet^Take 1 tablet by mouth three times daily as needed.^Disp: 60 tablet^Rfl: 0 linaclotide (LINZESS) 145 mcg capsule^Take by mouth as needed.^Disp: ^Rfl: BIOTIN ORAL^Take 2 tablets by mouth once daily. 6000 MCG Biotin, with Keratin 50 mg^Disp: ^Rfl: CALCIUM ORAL^Take 600 mg by mouth once daily.^Disp: ^Rfl: (Patient not taking: Reported on 10/20/2022) iv contrast (will be provided with radiology test)^MRI CSP Inject, intravenously, once for 1 dose. No IV access, insert saline lock prior to the beginning of sedation, infusion, injection of imaging exam. Discontinue saline lock post exam. If Pt. has a central line or IVAD, may access for administration according to line specific nursing protocol. Once exam is complete flush line and de-access according to line specific nursing protocol in the MR contrast administration guidelines link.^Disp: 1 Each^Rfl: 0 (Patient not taking: Reported on 10/20/2022) iv contrast (will be provided with radiology test)^MRI TSP Inject, intravenously, once for 1 dose. No IV access, insert saline lock prior to the beginning of sedation, infusion, injection of imaging exam. Discontinue saline lock post exam. If Pt. has a central line or IVAD, may access for administration according to line specific nursing protocol. Once exam is complete flush line and de-access according to line specific nursing protocol in the MR contrast administration guidelines link.^Disp: 1 Each^Rfl: 0 (Patient not taking: Reported on 10/20/2022) hydrOXYchloroQUINE (PLAQUENIL) 200 mg tablet^Take 200 mg by mouth once daily.^Disp: ^Rfl: folic acid 0.8 mg cap^Take 2 capsules by mouth once daily.^Disp: ^Rfl: methotrexate 2.5 mg tablet^Take 2.5 mg by mouth one time only. Taking 6 tablets one day a week on ^Disp: ^Rfl: oxyCODONE myristate (XTAMPZA ER) 13.5 mg CSpT^Take by mouth.^Disp: ^Rfl: cholecalciferol (VITAMIN D3) 5,000 unit tab^Take 5,000 Units by mouth once daily.^Disp: ^Rfl: cetirizine (ZYRTEC) 10 mg tablet^Take 10 mg by mouth once daily.^Disp: ^Rfl: predniSONE (DELTASONE) 10 mg tablet^Take 10 mg by mouth once daily.^Disp: ^Rfl: gabapentin (NEURONTIN) 300 mg capsule^Take 1 capsule by mouth twice daily for 180 days.^Disp: 180 capsule^Rfl: 1 (Patient not taking: Reported on 10/20/2022) CALCIUM CARBONATE (CALCIUM 300 ORAL)^Take 1 tablet by mouth once daily.^Disp: ^Rfl: (Patient not taking: Reported on 10/20/2022) meloxicam (MOBIC) 15 mg tablet^Take 1 tablet by mouth once daily. Take with food.^Disp: 30 tablet^Rfl: 2 (Patient not taking: Reported on 10/20/2022) OMEGA-3 FATTY ACIDS/FISH OIL (OMEGA 3 FISH OIL ORAL)^Take by mouth once daily.^Disp: ^Rfl: (Patient not taking: Reported on 10/20/2022) Patient Entered Questionnaires Spine Questions 10/20/2022 Pain Location: Neck Pain Duration: 1-3 months Symptoms from neck/cervical spine: Yes Employment Status: Retired Involved in law suit/legal claim: No Neck Questionnaires 10/20/2022 Benzel Modified BIANCA Score 10 (A lower score indicates increased pain and issues.) PROMIS Score Percentiles Physical Health 10/20/2022 Physical Function Percentile 8 Sleep Percentile 34 Fatigue Percentile 50 Pain Interference Percentile 12 PROMIS SOCIAL ROLE SCORE 10/20/2022 Social Role Satisfaction Percentile 31 PROMIS Global Health Scale 03/12/2016 04/09/2016 10/20/2022 Physical Health Percentile 4 0 15 Mental Health Percentile 3 1 9 Percentiles provide an indication of how the patient's score ranks in relation to the general population. Higher percentile rankings indicate better function/quality of life. 50th percentile is the average of the general population and indicates half of respondents had a worse score. Depression Screening: PHQ-9 05/30/2015 02/20/2016 10/20/2022 Score 23 21 7 PHQ-9 Self-harm Question 05/30/2015 02/20/2016 10/20/2022 Thoughts that you would be better off , or of hurting yourself in some way 3 2 0 PHQ-9 Self-Harm (Item 9) response options: 0 Not at all 1 Several days 2 More than half the days 3 Nearly every day PHQ-9 Levels: 0-4 No to mild depression 5-9 Mild depression 10-14 Moderate depression 15-19 Moderately severe depression 20-27 Severe depression OBJECTIVE: PHYSICAL EXAM: BP 137/75 Pulse 89 Wt 95 lb 14.4 oz (43.5kg) SpO2 99% Oriented x3 PERRL FS Motor: UE D 5/5, B 5/5, T 5/5, G 5/5, HI 5/5 LE HF 5/5, KE 5/5, DF 5/5, PF 5/5, EHL 5/5 Incision C/D/I Some limitation in shoulder mobility especially with medial rotation NEURO TESTS: None DATA REVIEW:Diagnostic tests reviewed for today's visit, films/specimens were personally reviewed by me: No additional images reviewed today ASSESSMENT/PLAN (S22.198D) Closed stable burst fracture of third thoracic vertebra with routine healing, subsequent encounter (primary encounter diagnosis) (M48.02) Spinal stenosis of cervical region (Z98.1) Arthrodesis status Yara A Shalini will continue with medical management of his/her condition. 1. Imaging: xray of shoulder reviewed. Ordered CT scan to get done now and review at next visit. 2. Patient to follow-up with her shoulder surgeon for evaluation. 3. Follow up: 2 months examined the patient and evaluated all available films and pertinent documents. We discussed the case and I agree with the plans as outlined in this note. I agree with the Chief Complaint, ROS, and Past Histories independently gathered by the clinical application support and the remaining scribed note accurately describes my personal service to the patient. The documentation for this note was completed by Genna Zee, AA Student acting as scribe for Jamie Bull MD. January 19, 2023 10:22 AM. I agree with the operative note independently gathered by the clinical application support and the remaining scribed note accurately describes my personal service to the patient. SIGNATURE: Jamie Bull MD PATIENT NAME: Yara Loya DATE: January 19, 2023 TIME: 10:22 AM PAGER: documented in this encounter [facility] 01-19-2023 Nurse Note The patient is here for an injection of Evenity Injection #4 of 12 Dose: 210 mg (105 mg/1.17 mL X2). Route: Subcutaneous Lot# [id number] Expiration date 01/31/2025 [facility]: 14492-190-71 Given without incident. Site: Right arm present in clinic at time of injection. The date due for the next injection is in 30 days. On or after 02/18/2023. Last Injection: 11/13/2022 DAVID: 09/10/2022 NOV: 03/17/2023 Insurance: Primary= Medicare, Secondary= O-- No PA Required Labs: 07/29/22 Calcium 9.7, Vitamin D 45.7 DX: M81.0 CPT: J3111 DXA: 10/16/20 (TScore -2.9) Patient education was given by nurse. Patient tolerated Injection well, in NAD and no reactions noted. Medication supplied by [facility]. Yuliana Bagley RN documented in this encounter [facility] 12-24-2022 Miscellaneous Notes Patient scheduled her #4 Evenity Injection for 01/19/2023. Closed Patient called back, state's she has COVID and will call back to reschedule when she is feeling better. Keep open. Patient missed her # 4 Evenity Injection yesterday and did not call or reschedule as of yet. Called patient's home, left voice message to call office at [phone], and ask to speak to the nurse. Also, sent patient a [employer] message. documented in this encounter [facility] 12-16-2022 Miscellaneous Notes Noted. Thank you. Patient called back stating she has COVID and is not feeling well. Patient will call back when she is feeling better to reschedule her injection documented in this encounter [facility] 11-13-2022 Nurse Note The patient is here for an injection of Evenity Injection #3 of 12 Dose: 210 mg (105 mg/1.17 mL X2). Route: Subcutaneous Lot# [id number] Expiration date 01/31/2025 [facility]: 90470-743-99 Given without incident. Site: Right arm present in clinic at time of injection. The date due for the next injection is in 30 days. On or after 12/14/2022. Last Injection: 10/13/2022 DAVID: 09/10/2022 NOV: 03/17/2023 Insurance: Primary= Medicare, Secondary= MMO-- No PA Required Labs: 07/29/22 Calcium 9.7, Vitamin D 45.7 DX: M81.0 CPT: J3111 DXA: 10/16/20 (TScore -2.9) Patient education was given by nurse. Patient tolerated Injection well, in NAD and no reactions noted. Medication supplied by [facility]. Lyric Queen RN documented in this encounter [facility] 10-24-2022 Miscellaneous Notes Will forward for review. Patient calling asking for results of Xray dont one 10/20. She also wants to know if she can get a referral to another neurosurgeon closer to home in [place]. States that she has seen him before and was the one that did her first surgery. She would like to get a second opinion with him again but they are asking for a referral. documented in this encounter [facility] 10-20-2022 Note HNO ID: [id number] Author: LUKE Jessica Service: Radiology Author Type: Technologist Type: Progress Notes Filed: 10/20/2022 9:11 AM Note Text: Radiology Service Progress Note PATIENT NAME: Yraa Loya DATE OF SERVICE: October 20, 2022 TIME: 9:11 AM PATIENT IDENTITY VERIFICATION COMPLETED USING TWO (2) IDENTIFIERS: Name and Date of confirmed by patient verbally. FALL SCREENING: Has the patient had 2 falls in the last year or 1 fall with injury or currently using an Ambulatory Assistive Device (Walker, Cane, Wheelchair, Crutches, etc.)? No PATIENT GENDER DATA: Female. status: : No status: NO. PATIENT RELEVANT IMPLANT DATA REVIEWED: Not Applicable RADIOLOGY DEPARTMENT: General X-ray: Exam(s) Completed: Upper Extremity X-Ray(s): Shoulder, AP / TRUE AP left PERIPHERAL IV DATA: Not applicable SIGNED BY: LUKE Jessica October 20, 2022 9:11 AM [facility] 10-20-2022 Note HNO ID: [id number] Author: Jamie Bull MD Service: ? Author Type: Physician Type: Progress Notes Filed: 10/20/2022 8:56 AM Note Text: SPINE SURGERY ESTABLISHED VISIT This is an in-person visit. DATE OF SERVICE: 10/20/2022 DATE OF LAST VISIT: 06/23/2022 SUBJECTIVE: HPI:Yara Loya is a 71 year old female presenting alone. She complains of shoulder pain that radiates to her neck and arms. She reports the pain and numbness radiates down her arm into her fingers. She says the arm pain and numbness is greater in the L arm. She says she hears a cracking and feels stretching upon moving her shoulders. She is interested in taking muscle relaxant for pain relief until surgery. Of note: She notes the pain feels similar to when she got her shoulder replace 4-5 years ago. MEDICATIONS: linaclotide (LINZESS) 145 mcg capsuleTake by mouth as needed.Disp: Rfl: BIOTIN ORALTake 2 tablets by mouth once daily. 6000 MCG Biotin, with Keratin 50 mgDisp: Rfl: hydrOXYchloroQUINE (PLAQUENIL) 200 mg tabletTake 200 mg by mouth once daily.Disp: Rfl: folic acid 0.8 mg capTake 2 capsules by mouth once daily.Disp: Rfl: methotrexate 2.5 mg tabletTake 2.5 mg by mouth one time only. Taking 6 tablets one day a week on Disp: Rfl: oxyCODONE myristate (XTAMPZA ER) 13.5 mg CSpTTake by mouth.Disp: Rfl: cholecalciferol (VITAMIN D3) 5,000 unit tabTake 5,000 Units by mouth once daily.Disp: Rfl: cetirizine (ZYRTEC) 10 mg tabletTake 10 mg by mouth once daily.Disp: Rfl: predniSONE (DELTASONE) 10 mg tabletTake 10 mg by mouth once daily.Disp: Rfl: methocarbamol (ROBAXIN-750) 750 mg tabletTake 1 tablet by mouth three times daily as needed.Disp: 60 tabletRfl: 0 CALCIUM ORALTake 600 mg by mouth once daily.Disp: Rfl: (Patient not taking: Reported on 10/20/2022) iv contrast (will be provided with radiology test)MRI CSP Inject, intravenously, once for 1 dose. No IV access, insert saline lock prior to the beginning of sedation, infusion, injection of imaging exam. Discontinue saline lock post exam. If Pt. has a central line or IVAD, may access for administration according to line specific nursing protocol. Once exam is complete flush line and de-access according to line specific nursing protocol in the MR contrast administration guidelines link.Disp: 1 EachRfl: 0 (Patient not taking: Reported on 10/20/2022) iv contrast (will be provided with radiology test)MRI TSP Inject, intravenously, once for 1 dose. No IV access, insert saline lock prior to the beginning of sedation, infusion, injection of imaging exam. Discontinue saline lock post exam. If Pt. has a central line or IVAD, may access for administration according to line specific nursing protocol. Once exam is complete flush line and de-access according to line specific nursing protocol in the MR contrast administration guidelines link.Disp: 1 EachRfl: 0 (Patient not taking: Reported on 10/20/2022) gabapentin (NEURONTIN) 300 mg capsuleTake 1 capsule by mouth twice daily for 180 days.Disp: 180 capsuleRfl: 1 (Patient not taking: Reported on 10/20/2022) CALCIUM CARBONATE (CALCIUM 300 ORAL)Take 1 tablet by mouth once daily.Disp: Rfl: (Patient not taking: Reported on 10/20/2022) meloxicam (MOBIC) 15 mg tabletTake 1 tablet by mouth once daily. Take with food.Disp: 30 tabletRfl: 2 (Patient not taking: Reported on 10/20/2022) OMEGA-3 FATTY ACIDS/FISH OIL (OMEGA 3 FISH OIL ORAL)Take by mouth once daily.Disp: Rfl: (Patient not taking: Reported on 10/20/2022) Patient Entered Questionnaires Spine Questions 10/20/2022 Pain Location: Neck Pain Duration: 1-3 months Symptoms from neck/cervical spine: Yes Employment Status: Retired Involved in law suit/legal claim: No Neck Questionnaires 10/20/2022 Benzel Modified BIANCA Score 10 (A lower score indicates increased pain and issues.) PROMIS Score Percentiles Physical Health 10/20/2022 Physical Function Percentile 8 Sleep Percentile 34 Fatigue Percentile 50 Pain Interference Percentile 12 PROMIS SOCIAL ROLE SCORE 10/20/2022 Social Role Satisfaction Percentile 31 PROMIS Global Health Scale 03/12/2016 04/09/2016 10/20/2022 Physical Health Percentile 4 0 15 Mental Health Percentile 3 1 9 Percentiles provide an indication of how the patient's score ranks in relation to the general population. Higher percentile rankings indicate better function/quality of life. 50th percentile is the average of the general population and indicates half of respondents had a worse score. Depression Screening: PHQ-9 05/30/2015 02/20/2016 10/20/2022 Score 23 21 7 PHQ-9 Self-harm Question 05/30/2015 02/20/2016 10/20/2022 Thoughts that you would be better off , or of hurting yourself in some way 3 2 0 PHQ-9 Self-Harm (Item 9) response options: 0 Not at all 1 Several days 2 More than half the days 3 Nearly every day PHQ-9 Levels: 0-4 No to mild depression 5-9 Mild depression 10-14 Moderate (more content not included)... [facility] 10-20-2022 History of Present illness Narrative SPINE SURGERY ESTABLISHED VISIT This is an in-person visit. DATE OF SERVICE: 10/20/2022 DATE OF LAST VISIT: 06/23/2022 SUBJECTIVE: HPI:Yara Loya is a 71 year old female presenting alone. She complains of shoulder pain that radiates to her neck and arms. She reports the pain and numbness radiates down her arm into her fingers. She says the arm pain and numbness is greater in the L arm. She says she hears a cracking and feels stretching upon moving her shoulders. She is interested in taking muscle relaxant for pain relief until surgery. Of note: She notes the pain feels similar to when she got her shoulder replace 4-5 years ago. MEDICATIONS: linaclotide (LINZESS) 145 mcg capsule^Take by mouth as needed.^Disp: ^Rfl: BIOTIN ORAL^Take 2 tablets by mouth once daily. 6000 MCG Biotin, with Keratin 50 mg^Disp: ^Rfl: hydrOXYchloroQUINE (PLAQUENIL) 200 mg tablet^Take 200 mg by mouth once daily.^Disp: ^Rfl: folic acid 0.8 mg cap^Take 2 capsules by mouth once daily.^Disp: ^Rfl: methotrexate 2.5 mg tablet^Take 2.5 mg by mouth one time only. Taking 6 tablets one day a week on ^Disp: ^Rfl: oxyCODONE myristate (XTAMPZA ER) 13.5 mg CSpT^Take by mouth.^Disp: ^Rfl: cholecalciferol (VITAMIN D3) 5,000 unit tab^Take 5,000 Units by mouth once daily.^Disp: ^Rfl: cetirizine (ZYRTEC) 10 mg tablet^Take 10 mg by mouth once daily.^Disp: ^Rfl: predniSONE (DELTASONE) 10 mg tablet^Take 10 mg by mouth once daily.^Disp: ^Rfl: methocarbamol (ROBAXIN-750) 750 mg tablet^Take 1 tablet by mouth three times daily as needed.^Disp: 60 tablet^Rfl: 0 CALCIUM ORAL^Take 600 mg by mouth once daily.^Disp: ^Rfl: (Patient not taking: Reported on 10/20/2022) iv contrast (will be provided with radiology test)^MRI CSP Inject, intravenously, once for 1 dose. No IV access, insert saline lock prior to the beginning of sedation, infusion, injection of imaging exam. Discontinue saline lock post exam. If Pt. has a central line or IVAD, may access for administration according to line specific nursing protocol. Once exam is complete flush line and de-access according to line specific nursing protocol in the MR contrast administration guidelines link.^Disp: 1 Each^Rfl: 0 (Patient not taking: Reported on 10/20/2022) iv contrast (will be provided with radiology test)^MRI TSP Inject, intravenously, once for 1 dose. No IV access, insert saline lock prior to the beginning of sedation, infusion, injection of imaging exam. Discontinue saline lock post exam. If Pt. has a central line or IVAD, may access for administration according to line specific nursing protocol. Once exam is complete flush line and de-access according to line specific nursing protocol in the MR contrast administration guidelines link.^Disp: 1 Each^Rfl: 0 (Patient not taking: Reported on 10/20/2022) gabapentin (NEURONTIN) 300 mg capsule^Take 1 capsule by mouth twice daily for 180 days.^Disp: 180 capsule^Rfl: 1 (Patient not taking: Reported on 10/20/2022) CALCIUM CARBONATE (CALCIUM 300 ORAL)^Take 1 tablet by mouth once daily.^Disp: ^Rfl: (Patient not taking: Reported on 10/20/2022) meloxicam (MOBIC) 15 mg tablet^Take 1 tablet by mouth once daily. Take with food.^Disp: 30 tablet^Rfl: 2 (Patient not taking: Reported on 10/20/2022) OMEGA-3 FATTY ACIDS/FISH OIL (OMEGA 3 FISH OIL ORAL)^Take by mouth once daily.^Disp: ^Rfl: (Patient not taking: Reported on 10/20/2022) Patient Entered Questionnaires Spine Questions 10/20/2022 Pain Location: Neck Pain Duration: 1-3 months Symptoms from neck/cervical spine: Yes Employment Status: Retired Involved in law suit/legal claim: No Neck Questionnaires 10/20/2022 Benzel Modified BIANCA Score 10 (A lower score indicates increased pain and issues.) PROMIS Score Percentiles Physical Health 10/20/2022 Physical Function Percentile 8 Sleep Percentile 34 Fatigue Percentile 50 Pain Interference Percentile 12 PROMIS SOCIAL ROLE SCORE 10/20/2022 Social Role Satisfaction Percentile 31 PROMIS Global Health Scale 03/12/2016 04/09/2016 10/20/2022 Physical Health Percentile 4 0 15 Mental Health Percentile 3 1 9 Percentiles provide an indication of how the patient's score ranks in relation to the general population. Higher percentile rankings indicate better function/quality of life. 50th percentile is the average of the general population and indicates half of respondents had a worse score. Depression Screening: PHQ-9 05/30/2015 02/20/2016 10/20/2022 Score 23 21 7 PHQ-9 Self-harm Question 05/30/2015 02/20/2016 10/20/2022 Thoughts that you would be better off , or of hurting yourself in some way 3 2 0 PHQ-9 Self-Harm (Item 9) response options: 0 Not at all 1 Several days 2 More than half the days 3 Nearly every day PHQ-9 Levels: 0-4 No to mild depression 5-9 Mild depression 10-14 Moderate depression 15-19 Moderately severe depression 20-27 Severe depression OBJECTIVE: PHYSICAL EXAM: Oriented x3 PERRL FS Motor: UE D 5/5, B 5/5, T 5/5, G 5/5, HI 5/5 LE HF 5/5, KE 5/5, DF 5/5, PF 5/5, EHL 5/5 Incision C/D/I DATA REVIEW None ASSESSMENT/PLAN (S22.031D) Closed stable burst fracture of third thoracic vertebra with routine healing, subsequent encounter (primary encounter diagnosis) 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 It is less likely related to the shoulder. We will obtain updated left shoulder x-ray to rule that out. Surgery would likely require extension of fusion to T5. Prior to surgery recommended patient have her osteoporosis treated well for at least 6 months. She is currently followed with endocrinology. On the next follow-up we will obtain a CT of cervical and thoracic spine to evaluate prior hardware. 1. Robaxin ordered 2. XR left shoulder ordered 3. Follow up: 2 months SIGNATURE: Jamie Bull MD PATIENT NAME: Yara Loya DATE: October 20, 2022 TIME: 8:29 AM PAGER: Jolene Chiu, attest that this document has been prepared under the direction and in the presence of Jamie Bull MD on October 20, 2022 at 8:51 AM. documented in this encounter [facility] 09-10-2022 Note HNO ID: [id number] Author: Leslie Hackett MD Service: ? Author Type: Physician Type: Progress Notes Filed: 09/10/2022 12:22 PM Note Text: ENDOCRINOLOGY CLINIC NOTE Reason for visit Yara Loya is a 71 year old female with fibromyalgia, RA presented for follow-up of low bone density. HPI She had surgeries for spinal stenosis and sees neurosurgery. Cervical and thoracic MRI in showed stenosis and chronic T3 compression fracture. There is consideration for another cervical spine surgery She sees rheumatology for fibromyalgia and RA and she takes MTX and plaquenil. She takes prednisone 10 mg about 3 times a week for joint and shoulder pain, and has been taking it for 4 months Evaluation for secondary causes of low BMD showed SPEP with M protein, negative celiac screen, ionized calcium 1.28, vitamin D 45, PTH 73, vitamin D 45.7, P3.7, bone specific ALP 38, CTX 412, 24-hour urine calcium 86. L-spine x-ray showed age-indeterminate T12 fracture She was seen by hematology and the impression is that she has monoclonal gammopathy Most recent DXA 10/16/2020 (images below): L-spine BMD 0.987, T score -1.5 Right TH BMD 0.641, T score -2.9 Right FN BMD 0.674, T score -2.6 Fracture history: Chronic T3 compression fracture with 70% height loss on MRI 07/2022 Age-indeterminate T12 fracture Treatment history (including any side effects/contraindications): Prolia for 10 years then switched to Fosamax 70 mg once a week for a 10 years and still taking it Family history of metabolic bone disease or fractures: None Risk factors: > 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: - last period: at age 44 - periods were regular > Medication exposures/pertinent medical or social history: (Glucocorticoid, AED use, relevant medications, hyperthyroidism, kidney stone/disease, eating disorder, malabsorption, immobility, smoking, excessive alcohol use etc) RA, steroid Smoked and stopped 10 years ago No alcohol Calcium/Vit D intake: Dietary calcium: drinks milk every day Supplements: 600 mg once a day Vitamin D intake: 5000 units daily Dental Procedure: None Radiation Exposure: None Height Loss: Lost 4 inches Past Medical History PAST MEDICAL HISTORY Diagnosis Date Arthritis of neck Fibromyalgia Herniated disc, cervical she says she has 7 herniated discs Osteoporosis Past Surgical History PAST SURGICAL HISTORY Procedure Laterality Date ARTHRD ANT INTERBODY MIN DSC CRV BELOW C2 12/14/14 DISCECTOMY ANT DCMPRN CORD CERVICAL 1 [facility] 12/14/14 DISCECTOMY ANT DCMPRN CORD CERVICAL EA [facility] 12/14/14 HEMORRHOID SURGERY HX 2013 PAST SURGICAL HISTORY OF 2000 back, done by ?DR. Kelley? TONSILLECTOMY AND ADENOIDECTOMY Medications Current Outpatient Medications Medication Sig linaclotide (LINZESS) 145 mcg capsule Take by mouth as needed. BIOTIN ORAL Take 2 tablets by mouth once daily. 6000 MCG Biotin, with Keratin 50 mg CALCIUM ORAL Take 600 mg by mouth once daily. hydrOXYchloroQUINE (PLAQUENIL) 200 mg tablet Take 200 mg by mouth once daily. folic acid 0.8 mg cap Take 2 capsules by mouth once daily. methotrexate 2.5 mg tablet Take 2.5 mg by mouth one time only. Taking 6 tablets one day a week on cholecalciferol (VITAMIN D3) 5,000 unit tab Take 5,000 Units by mouth once daily. cetirizine (ZYRTEC) 10 mg tablet Take 10 mg by mouth once daily. predniSONE (DELTASONE) 10 mg tablet Take 10 mg by mouth once daily. CALCIUM CARBONATE (CALCIUM 300 ORAL) Take 1 tablet by mouth once daily. alendronate (FOSAMAX) 70 mg tablet Take 1 tablet by mouth once each week. iv contrast (will be provided with radiology test) MRI CSP Inject, intravenously, once for 1 dose. No IV access, insert saline lock prior to the beginning of sedation, infusion, injection of imaging exam. Discontinue saline lock post exam. If Pt. has a central line or IVAD, may access for administration according to line specific nursing protocol. Once exam is complete flush line and de-access according to line specific nursing protocol in the MR contrast administration guidelines link. (Patient not taking: Reported on 09/10/2022) iv contrast (will be provided with radiology test) MRI TSP Inject, intravenously, once for 1 dose. No IV access, insert saline lock prior to the beginning of sedation, infusion, injection of imaging exam. Discontinue saline lock post exam. If Pt. has a central line or IVAD, may access for administration according to line specific nursing protocol. Once exam is complete flush line and de-access according to line specific nursing protocol in the MR contrast administration guidelines link. (Patient not taking: Reported on 09/10/2022) oxyCODONE myristate (XTAMPZA ER) 13.5 mg CSpT Take by mouth. (Patient not taking: Reported on 09/10/2022) gabapentin (NEURONTIN) 300 mg capsule Take 1 capsule by mouth twice daily for 180 days. (Patient not taking: Reported on 07/23/2022) (more content not included)... [facility] 09-10-2022 Nurse Note The patient is here for an injection of Evenity Injection #1 of 12 Dose: 210 mg (105 mg/1.17 mL X2). Route: Subcutaneous Lot# [id number] Expiration date 10/2024 [facility]: 05373-599-20 Given without incident. Site: left arm Dr. Hackett present in clinic at time of injection. The date due for the next injection is in 30 days. On or after 10/11/2022. First injection DAVID: Today NOV: Will need 03/2023 Insurance: Primary= Medicare, Secondary= O-- No PA Required Labs: 07/29/22 Calcium 9.7, Vitamin D 45.7 DX: M81.0 CPT: J3111 DXA: 10/16/20 (TScore -2.9) Patient education was given by nurse. Patient tolerated Injection well, in NAD and no reactions noted. Medication supplied by [facility]. Yuliana Bagley RN documented in this encounter [facility] 09-10-2022 Instructions Leslie Hackett MD - 09/10/2022 11:13 AM EDT - Stop the Fosmax - We will start a new medication for the osteoporosis called Evenity injection every month - I will see you in 6 months with a blood test few days prior to the appointment. Please stop the biotin 5 days before doing the test documented in this encounter [facility] 09-10-2022 History of Present illness Narrative Images from the original note were not included. ENDOCRINOLOGY CLINIC NOTE Reason for visit Yara Loya is a 71 year old female with fibromyalgia, RA presented for follow-up of low bone density. HPI She had surgeries for spinal stenosis and sees neurosurgery. Cervical and thoracic MRI in showed stenosis and chronic T3 compression fracture. There is consideration for another cervical spine surgery She sees rheumatology for fibromyalgia and RA and she takes MTX and plaquenil. She takes prednisone 10 mg about 3 times a week for joint and shoulder pain, and has been taking it for 4 months Evaluation for secondary causes of low BMD showed SPEP with M protein, negative celiac screen, ionized calcium 1.28, vitamin D 45, PTH 73, vitamin D 45.7, P3.7, bone specific ALP 38, CTX 412, 24-hour urine calcium 86. L-spine x-ray showed age-indeterminate T12 fracture She was seen by hematology and the impression is that she has monoclonal gammopathy Most recent DXA 10/16/2020 (images below): L-spine BMD 0.987, T score -1.5 Right TH BMD 0.641, T score -2.9 Right FN BMD 0.674, T score -2.6 Fracture history: Chronic T3 compression fracture with 70% height loss on MRI 07/2022 Age-indeterminate T12 fracture Treatment history (including any side effects/contraindications): Prolia for 10 years then switched to Fosamax 70 mg once a week for a 10 years and still taking it Family history of metabolic bone disease or fractures: None Risk factors: > 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: - last period: at age 44 - periods were regular > Medication exposures/pertinent medical or social history: (Glucocorticoid, AED use, relevant medications, hyperthyroidism, kidney stone/disease, eating disorder, malabsorption, immobility, smoking, excessive alcohol use etc) RA, steroid Smoked and stopped 10 years ago No alcohol Calcium/Vit D intake: Dietary calcium: drinks milk every day Supplements: 600 mg once a day Vitamin D intake: 5000 units daily Dental Procedure: None Radiation Exposure: None Height Loss: Lost 4 inches Past Medical History PAST MEDICAL HISTORY Diagnosis Date Arthritis of neck Fibromyalgia Herniated disc, cervical she says she has 7 herniated discs Osteoporosis Past Surgical History PAST SURGICAL HISTORY Procedure Laterality Date ARTHRD ANT INTERBODY MIN DSC CRV BELOW C2 12/14/14 DISCECTOMY ANT DCMPRN CORD CERVICAL 1 [facility] 12/14/14 DISCECTOMY ANT DCMPRN CORD CERVICAL EA [facility] 12/14/14 HEMORRHOID SURGERY HX 2013 PAST SURGICAL HISTORY OF 2000 back, done by ?DR. Kelley? TONSILLECTOMY & ADENOIDECTOMY <AGE 12 Medications Current Outpatient Medications Medication Sig linaclotide (LINZESS) 145 mcg capsule Take by mouth as needed. BIOTIN ORAL Take 2 tablets by mouth once daily. 6000 MCG Biotin, with Keratin 50 mg CALCIUM ORAL Take 600 mg by mouth once daily. hydrOXYchloroQUINE (PLAQUENIL) 200 mg tablet Take 200 mg by mouth once daily. folic acid 0.8 mg cap Take 2 capsules by mouth once daily. methotrexate 2.5 mg tablet Take 2.5 mg by mouth one time only. Taking 6 tablets one day a week on cholecalciferol (VITAMIN D3) 5,000 unit tab Take 5,000 Units by mouth once daily. cetirizine (ZYRTEC) 10 mg tablet Take 10 mg by mouth once daily. predniSONE (DELTASONE) 10 mg tablet Take 10 mg by mouth once daily. CALCIUM CARBONATE (CALCIUM 300 ORAL) Take 1 tablet by mouth once daily. alendronate (FOSAMAX) 70 mg tablet Take 1 tablet by mouth once each week. iv contrast (will be provided with radiology test) MRI CSP Inject, intravenously, once for 1 dose. No IV access, insert saline lock prior to the beginning of sedation, infusion, injection of imaging exam. Discontinue saline lock post exam. If Pt. has a central line or IVAD, may access for administration according to line specific nursing protocol. Once exam is complete flush line and de-access according to line specific nursing protocol in the MR contrast administration guidelines link. (Patient not taking: Reported on 09/10/2022) iv contrast (will be provided with radiology test) MRI TSP Inject, intravenously, once for 1 dose. No IV access, insert saline lock prior to the beginning of sedation, infusion, injection of imaging exam. Discontinue saline lock post exam. If Pt. has a central line or IVAD, may access for administration according to line specific nursing protocol. Once exam is complete flush line and de-access according to line specific nursing protocol in the MR contrast administration guidelines link. (Patient not taking: Reported on 09/10/2022) oxyCODONE myristate (XTAMPZA ER) 13.5 mg CSpT Take by mouth. (Patient not taking: Reported on 09/10/2022) gabapentin (NEURONTIN) 300 mg capsule Take 1 capsule by mouth twice daily for 180 days. (Patient not taking: Reported on 07/23/2022) raloxifene (EVISTA) 60 mg tablet Take 60 mg by mouth once daily. (Patient not taking: Reported on 09/10/2022) meloxicam (MOBIC) 15 mg tablet Take 1 tablet by mouth once daily. Take with food. (Patient not taking: Reported on 09/10/2022) OMEGA-3 FATTY ACIDS/FISH OIL (OMEGA 3 FISH OIL ORAL) Take by mouth once daily. (Patient not taking: Reported on 09/10/2022) No current facility-administered medications for this visit. The medication list in the chart was reviewed. Allergies ALLERGIES Allergen Reactions Seasonal Allergies Other: See Comments sinus The allergy list in the chart was reviewed. Family History FAMILY HISTORY Problem Relation Age of Onset Stroke Mother Stroke Father Social History Social History Tobacco Use Smoking status: Former Packs/day: 1.00 Years: 45.00 Pack years: 45.00 Types: Cigarettes Quit date: 04/12/2013 Years since quittin.4 Smokeless tobacco: Never Substance Use Topics Alcohol use: No Drug use: No Review of Systems: 10 point review of systems was negative other than what is mentioned in the H&P Physical Exam BP 115/71 Pulse 77 Ht 144.8 cm (4' 9 ) Wt 47.6 kg (105 lb) SpO2 97% BMI 22.72 kg/m Body mass index is 22.72 kg/m . Last 3 Encounter Ht Readings: Date: Ht: 06/23/2022 147.3 cm (4' 10 ) 06/04/2022 147.3 cm (4' 10 ) 04/17/2022 147.3 cm (4' 10 ) General Appearance: Alert, cooperative, not in distress Previous exam Head: Normocephalic, atraumatic Eyes: PERRL, conjunctiva/corneas clear, EOM's intact with no lid lag or proptosis Ear, nose, mouth, throat: Lips, mucosa, and tongue normal Neck: Supple Cardiovascular: Regular rate and rhythm, no murmur, rub, or gallop Respiratory: Clear to auscultation bilaterally GI: Soft, non-tender, bowel sounds present Musculoskeletal: back is not tender to palpation Extremities: No edema Skin: no rash Neurologic: AAOx 3 Psychiatric: appropriate mood Imaging Recent Laboratory Data: Assessment and recommendations Yara Loya is a 71 year old female presented for follow-up of low bone density. Low bone density Most recent DXA from 10/2020 shows lowest T score -2.9 at the total hip level. The spine BMD is not reliable due to previous surgeries and possibly arthritis. She had fragility vertebral compression fractures. Risk factors for low bone density include age, ethnicity, postmenopausal state, glucocorticoid exposure, and rheumatoid arthritis. Evaluation for secondary causes showed abnormal SPEP and she saw hematology. Seems that the impression is monoclonal gammopathy. Her PTH is slightly elevated with slightly low urine calcium. Ms. Loya has been taking antiresorptive medications for a total of about 20 years, but her bone turnover markers are not suppressed. Given that she had compression fractures while on antiresorptive medication, and the fact that there is consideration for another spinal surgery, anabolic therapy is recommended. We discussed the options of Forteo, Tymlos and Evenity, and information was previously provided in the after visit summary. After discussing the above, we will start Evenity first dose today. We discussed the possible cardiovascular side effects. Hyperparathyroidism: Her PTH is mildly elevated during secondary evaluation with no hypercalcemia. Her urine calcium is slightly low. This may represent secondary hyperparathyroidism or normocalcemic primary hyperparathyroidism. We will repeat her PTH with ionized calcium and vitamin D in 6 months Some of the above has been copied from prior documentation on 07/23/2022 but geronimo elements reviewed, confirmed, and/or updated by me (Leslie Hackett MD) on 09/10/2022 Medical Decision Making: Problems: Moderate: New problem with uncertain prognosis and 1+ chronic illnesses with change Data: Unique test result(s) reviewed: 3+ Unique test(s) ordered: 3+ Risk: Moderate: Drug management and Moderate risk from testing/treatment Medical Decision Making Level: 4 - Moderate This note was created using Minekey dictation software. You may find errors that were missed during proofreading. They are purely unintentional and if there are any concerns regarding this dictation, please do not hesitate to call the dictating provider for clarification. Leslie Hackett MD documented in this encounter [facility] 08-26-2022 Note HNO ID: [id number] Author: Wisam Mills MD Service: ? Author Type: Physician Type: Progress Notes Filed: 08/27/2022 3:38 PM Note Text: HISTORY OF PRESENT ILLNESS: Yara Loya is a 71 year old female referred for monoclonal gammopathy. Feels well, found on basis of osteopenia work up. Reviewed possible implications. CLINICAL IMPRESSION: Monoclonal gammopathy RECOMMENDATION/PLAN: 1. Labs as ordered Written and verbal health teaching given to patient, patient verbalizes understanding and agrees with treatment plan. PAST MEDICAL HISTORY Diagnosis Date Arthritis of neck Fibromyalgia Herniated disc, cervical she says she has 7 herniated discs Osteoporosis PAST SURGICAL HISTORY Procedure Laterality Date ARTHRD ANT INTERBODY MIN DSC CRV BELOW C2 12/14/14 DISCECTOMY ANT DCMPRN CORD CERVICAL 1 [facility] 12/14/14 DISCECTOMY ANT DCMPRN CORD CERVICAL EA [facility] 12/14/14 HEMORRHOID SURGERY HX 2013 PAST SURGICAL HISTORY OF 2000 back, done by ?DR. Kelley? TONSILLECTOMY AND ADENOIDECTOMY FAMILY HISTORY Problem Relation Age of Onset Stroke Mother Stroke Father Social History Tobacco Use Smoking status: Former Packs/day: 1.00 Years: 45.00 Pack years: 45.00 Types: Cigarettes Quit date: 04/12/2013 Years since quittin.3 Smokeless tobacco: Never Substance Use Topics Alcohol use: No Drug use: No ALLERGIES: ALLERGIES Allergen Reactions Seasonal Allergies Other: See Comments sinus CURRENT OUTPATIENT MEDICATIONS: linaclotide (LINZESS) 145 mcg capsule Take by mouth as needed. BIOTIN ORAL Take 2 tablets by mouth once daily. 6000 MCG Biotin, with Keratin 50 mg CALCIUM ORAL Take 600 mg by mouth once daily. iv contrast (will be provided with radiology test) MRI CSP Inject, intravenously, once for 1 dose. No IV access, insert saline lock prior to the beginning of sedation, infusion, injection of imaging exam. Discontinue saline lock post exam. If Pt. has a central line or IVAD, may access for administration according to line specific nursing protocol. Once exam is complete flush line and de-access according to line specific nursing protocol in the MR contrast administration guidelines link. (Patient not taking: Reported on 07/23/2022) iv contrast (will be provided with radiology test) MRI TSP Inject, intravenously, once for 1 dose. No IV access, insert saline lock prior to the beginning of sedation, infusion, injection of imaging exam. Discontinue saline lock post exam. If Pt. has a central line or IVAD, may access for administration according to line specific nursing protocol. Once exam is complete flush line and de-access according to line specific nursing protocol in the MR contrast administration guidelines link. (Patient not taking: Reported on 07/23/2022) hydrOXYchloroQUINE (PLAQUENIL) 200 mg tablet Take 200 mg by mouth once daily. folic acid 0.8 mg cap Take 2 capsules by mouth once daily. methotrexate 2.5 mg tablet Take 2.5 mg by mouth one time only. Taking 6 tablets one day a week on oxyCODONE myristate (XTAMPZA ER) 13.5 mg CSpT Take by mouth. cholecalciferol (VITAMIN D3) 5,000 unit tab Take 5,000 Units by mouth once daily. cetirizine (ZYRTEC) 10 mg tablet Take 10 mg by mouth once daily. predniSONE (DELTASONE) 10 mg tablet Take 10 mg by mouth once daily. gabapentin (NEURONTIN) 300 mg capsule Take 1 capsule by mouth twice daily for 180 days. (Patient not taking: Reported on 07/23/2022) raloxifene (EVISTA) 60 mg tablet Take 60 mg by mouth once daily. (Patient not taking: Reported on 07/23/2022) CALCIUM CARBONATE (CALCIUM 300 ORAL) Take 1 tablet by mouth once daily. meloxicam (MOBIC) 15 mg tablet Take 1 tablet by mouth once daily. Take with food. (Patient not taking: Reported on 07/23/2022) alendronate (FOSAMAX) 70 mg tablet Take 1 tablet by mouth once each week. OMEGA-3 FATTY ACIDS/FISH OIL (OMEGA 3 FISH OIL ORAL) Take by mouth once daily. (Patient not taking: Reported on 07/23/2022) REVIEW OF SYSTEMS: GENERAL: No fever, night sweats, weight loss or malaise. All other reviewed and negative other than HPI. PHYSICAL EXAMINATION: VITAL SIGNS: BP 135/80 Pulse 81 Temp (Src) 98 (Temporal) Resp 18 Wt 106 lb 12.8 oz (48.4kg) SpO2 98% GENERAL APPEARANCE: Well appearing, in no acute distress, alert and oriented x3, well-hydrated, well nourished. I spent a total of 45 minutes on the date of the service which included preparing to see the patient, [id number] patient care, completing clinical documentation, obtaining and/or reviewing separately obtained history, counseling and educating the patient/family/caregiver, ordering medications, tests, or procedures, independently interpreting results (not separately reported), and communicating results to the patient/family/caregiver. Electronically Signed: Wisam Mills MD August 26, 2022 11:22 AM [facility] 08-26-2022 History of Present illness Narrative HISTORY OF PRESENT ILLNESS: Yara Loya is a 71 year old female referred for monoclonal gammopathy. Feels well, found on basis of osteopenia work up. Reviewed possible implications. CLINICAL IMPRESSION: Monoclonal gammopathy RECOMMENDATION/PLAN: 1. Labs as ordered Written and verbal health teaching given to patient, patient verbalizes understanding and agrees with treatment plan. PAST MEDICAL HISTORY Diagnosis Date Arthritis of neck Fibromyalgia Herniated disc, cervical she says she has 7 herniated discs Osteoporosis PAST SURGICAL HISTORY Procedure Laterality Date ARTHRD ANT INTERBODY MIN DSC CRV BELOW C2 12/14/14 DISCECTOMY ANT DCMPRN CORD CERVICAL 1 [facility] 12/14/14 DISCECTOMY ANT DCMPRN CORD CERVICAL EA [facility] 12/14/14 HEMORRHOID SURGERY HX 2014 PAST SURGICAL HISTORY OF 2000 back, done by ?DR. Kelley? TONSILLECTOMY & ADENOIDECTOMY <AGE 12 FAMILY HISTORY Problem Relation Age of Onset Stroke Mother Stroke Father Social History Tobacco Use Smoking status: Former Packs/day: 1.00 Years: 45.00 Pack years: 45.00 Types: Cigarettes Quit date: 04/12/2013 Years since quittin.3 Smokeless tobacco: Never Substance Use Topics Alcohol use: No Drug use: No ALLERGIES: ALLERGIES Allergen Reactions Seasonal Allergies Other: See Comments sinus CURRENT OUTPATIENT MEDICATIONS: linaclotide (LINZESS) 145 mcg capsule Take by mouth as needed. BIOTIN ORAL Take 2 tablets by mouth once daily. 6000 MCG Biotin, with Keratin 50 mg CALCIUM ORAL Take 600 mg by mouth once daily. iv contrast (will be provided with radiology test) MRI CSP Inject, intravenously, once for 1 dose. No IV access, insert saline lock prior to the beginning of sedation, infusion, injection of imaging exam. Discontinue saline lock post exam. If Pt. has a central line or IVAD, may access for administration according to line specific nursing protocol. Once exam is complete flush line and de-access according to line specific nursing protocol in the MR contrast administration guidelines link. (Patient not taking: Reported on 07/23/2022) iv contrast (will be provided with radiology test) MRI TSP Inject, intravenously, once for 1 dose. No IV access, insert saline lock prior to the beginning of sedation, infusion, injection of imaging exam. Discontinue saline lock post exam. If Pt. has a central line or IVAD, may access for administration according to line specific nursing protocol. Once exam is complete flush line and de-access according to line specific nursing protocol in the MR contrast administration guidelines link. (Patient not taking: Reported on 07/23/2022) hydrOXYchloroQUINE (PLAQUENIL) 200 mg tablet Take 200 mg by mouth once daily. folic acid 0.8 mg cap Take 2 capsules by mouth once daily. methotrexate 2.5 mg tablet Take 2.5 mg by mouth one time only. Taking 6 tablets one day a week on oxyCODONE myristate (XTAMPZA ER) 13.5 mg CSpT Take by mouth. cholecalciferol (VITAMIN D3) 5,000 unit tab Take 5,000 Units by mouth once daily. cetirizine (ZYRTEC) 10 mg tablet Take 10 mg by mouth once daily. predniSONE (DELTASONE) 10 mg tablet Take 10 mg by mouth once daily. gabapentin (NEURONTIN) 300 mg capsule Take 1 capsule by mouth twice daily for 180 days. (Patient not taking: Reported on 07/23/2022) raloxifene (EVISTA) 60 mg tablet Take 60 mg by mouth once daily. (Patient not taking: Reported on 07/23/2022) CALCIUM CARBONATE (CALCIUM 300 ORAL) Take 1 tablet by mouth once daily. meloxicam (MOBIC) 15 mg tablet Take 1 tablet by mouth once daily. Take with food. (Patient not taking: Reported on 07/23/2022) alendronate (FOSAMAX) 70 mg tablet Take 1 tablet by mouth once each week. OMEGA-3 FATTY ACIDS/FISH OIL (OMEGA 3 FISH OIL ORAL) Take by mouth once daily. (Patient not taking: Reported on 07/23/2022) REVIEW OF SYSTEMS: GENERAL: No fever, night sweats, weight loss or malaise. All other reviewed and negative other than HPI. PHYSICAL EXAMINATION: VITAL SIGNS: BP 135/80 Pulse 81 Temp (Src) 98 (Temporal) Resp 18 Wt 106 lb 12.8 oz (48.4kg) SpO2 98% GENERAL APPEARANCE: Well appearing, in no acute distress, alert and oriented x3, well-hydrated, well nourished. I spent a total of 45 minutes on the date of the service which included preparing to see the patient, [id number] patient care, completing clinical documentation, obtaining and/or reviewing separately obtained history, counseling and educating the patient/family/caregiver, ordering medications, tests, or procedures, independently interpreting results (not separately reported), and communicating results to the patient/family/caregiver. Electronically Signed: Wisam Mills MD August 26, 2022 11:22 AM documented in this encounter [facility] 08-14-2022 Miscellaneous Notes Mailed patient letter about not answering phone and attached providers message. CLOSED 3rd attempt: Called patients home and left VM to call back office at [phone]. Please give message below. Sending mychart message in case she will check it that way. Called patient's home/cell# at [phone] left voice message to call office at [phone], and ask to speak to the nurse. Called patients number and left VM to call back office at [phone]. Please give message below. ----- Message from Leslie Hackett MD sent at 08/05/2022 2:16 PM EDT ----- If you could please call this patient to let her know that one of the tests called protein electrophoresis is abnormal, and she should see the hematology clinic to do more evaluation for that. It is a screening test for some blood conditions The referral is placed. They have 2 numbers on their website [phone] or [phone] if you could give both to her I will see her next month as planned Thank you H documented in this encounter [facility] 07-31-2022 Note HNO ID: [id number] Author: Norma Prasad RT(R) Service: Nuclear Medicine Author Type: Technologist Type: Progress Notes Filed: 07/31/2022 8:51 AM Note Text: Radiology Service Progress Note PATIENT NAME: Yara Loya DATE OF SERVICE: July 31, 2022 TIME: 8:39 AM PATIENT IDENTITY VERIFICATION COMPLETED USING TWO (2) IDENTIFIERS: Name and Date of confirmed by patient verbally. FALL SCREENING: Has the patient had 2 falls in the last year or 1 fall with injury or currently using an Ambulatory Assistive Device (Walker, Cane, Wheelchair, Crutches, etc.)? No PATIENT GENDER DATA: Female. status: : No status: NO. PATIENT RELEVANT IMPLANT DATA REVIEWED: Not Applicable RADIOLOGY DEPARTMENT: General X-ray: Exam(s) Completed: Spine X-Ray(s): Lumbar AP / LAT / L5-S1 PERIPHERAL IV DATA: Not applicable SIGNED BY: RT Siddhartha(R) July 31, 2022 8:39 AM [facility] 07-23-2022 Note HNO ID: [id number] Author: Leslie Hackett MD Service: ? Author Type: Physician Type: Progress Notes Filed: 07/23/2022 12:03 PM Note Text: ENDOCRINOLOGY CLINIC NOTE Reason for visit Yara Loya is a 71 year old female with fibromyalgia, RA seen in consultation for evaluation and discussion of treatment options for low bone density. Consult has been requested by [facility] She had surgeries for spinal stenosis and sees neurosurgery. Cervical and thoracic MRI in showed stenosis and chronic T3 compression fracture. There is consideration for another cervical spine surgery She sees rheumatology for fibromyalgia and RA and she takes MTX and plaquenil. 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: - last period: at age 44 - periods were regular > Medication exposures/pertinent medical or social history: (Glucocorticoid, AED use, relevant medications, hyperthyroidism, kidney stone/disease, eating disorder, malabsorption, immobility, smoking, excessive alcohol use etc) RA, steroid Smoked and stopped 10 years ago No alcohol Calcium/Vit D intake: Dietary calcium: drinks milk every day Supplements: 600 mg once a day Vitamin D intake: 5000 units daily Dental Procedure: None Radiation Exposure: None Height Loss: Lost 4 inches Past Medical History PAST MEDICAL HISTORY Diagnosis Date Arthritis of neck Fibromyalgia Herniated disc, cervical she says she has 7 herniated discs Osteoporosis Past Surgical History PAST SURGICAL HISTORY Procedure Laterality Date ARTHRD ANT INTERBODY MIN DSC CRV BELOW C2 12/14/14 DISCECTOMY ANT DCMPRN CORD CERVICAL 1 [facility] 12/14/14 DISCECTOMY ANT DCMPRN CORD CERVICAL EA [facility] 12/14/14 HEMORRHOID SURGERY HX 2013 PAST SURGICAL HISTORY OF 2000 back, done by ?DR. Kelley? TONSILLECTOMY AND ADENOIDECTOMY Medications Current Outpatient Medications Medication Sig iv contrast (will be provided with radiology test) MRI TSP Inject, intravenously, once for 1 dose. No IV access, insert saline lock prior to the beginning of sedation, infusion, injection of imaging exam. Discontinue saline lock post exam. If Pt. has a central line or IVAD, may access for administration according to line specific nursing protocol. Once exam is complete flush line and de-access according to line specific nursing protocol in the MR contrast administration guidelines link. hydrOXYchloroQUINE (PLAQUENIL) 200 mg tablet Take 200 mg by mouth once daily. folic acid 0.8 mg cap Take by mouth. methotrexate 2.5 mg tablet Take 2.5 mg by mouth one time only. oxyCODONE myristate (XTAMPZA ER) 13.5 mg CSpT Take by mouth. cholecalciferol (VITAMIN D3) 5,000 unit tab Take 5,000 Units by mouth once daily. cetirizine (ZYRTEC) 10 mg tablet Take 10 mg by mouth once daily. predniSONE (DELTASONE) 10 mg tablet Take 10 mg by mouth once daily. gabapentin (NEURONTIN) 300 mg capsule Take 1 capsule by mouth twice daily for 180 days. raloxifene (EVISTA) 60 mg tablet Take 60 mg by mouth once daily. meloxicam (MOBIC) 15 mg tablet Take 1 tablet by mouth once daily. Take with food. alendronate (FOSAMAX) 70 mg tablet Take 1 tablet by mouth once each week. OMEGA-3 FATTY ACIDS/FISH OIL (OMEGA 3 FISH OIL ORAL) Take by mouth once daily. iv contrast (will be provided with radiology test) MRI CSP Inject, intravenously, once for 1 dose. No IV access, insert saline lock prior to the beginning of sedation, infusion, injection of imaging exam. Discontinue saline lock post exam. If Pt. has a central line or IVAD, may access for administration according to line specific nursing protocol. Once exam is complete flush line and de-access according to line specific nursing protocol in the MR contrast administration guidelines link. (Patient not taking: Reported on 07/23/2022) CALCIUM CARBONATE (CALCIUM 300 ORAL) Take 1 tablet by mouth once daily. (Patient not taking: Reported on 07/23/2022) No current facility-administered medications for this visit. The medication list in the chart was reviewed. Allergies ALLERGIES Allergen Reactions Seasonal Allergies Other: See Comments sinus The allergy list in the chart was reviewed. Family History FAMILY HISTORY Problem Relation Age of Onset Stroke Mother Stroke Father Social History Social History Tobacco Use Smoking status: Former Packs/day: 1.00 (more content not included)... [facility] 07-23-2022 Instructions Leslie Hackett MD - 07/23/2022 11:19 AM EDT - Continue with your current vitamin D and calcium intake - Please do blood tests and 24 hour urine collection - Repeat bone density scan in 10/2022 - Please do xray of your back - I will see you in about 4-6 weeks to discussed the results and next steps Patient information: Collection of a 24-hour urine specimen The following instructions will guide you in the proper collection of a 24-hour urine specimen. In some instances, you will be asked to collect two or three consecutive 24-hour urine samples. INSTRUCTIONS You should collect every drop of urine during each 24-hour period. It does not matter how much or little urine is passed each time, as long as every drop is collected. Begin the urine collection in the morning after you wake up, after you have emptied your bladder for the first time. Urinate (empty the bladder) for the first time and flush it down the toilet. Note the exact time (e.g., 6:15 AM). You will begin the urine collection at this time. Collect every drop of urine during the day and night in an empty collection bottle. Store the bottle at room temperature or in the refrigerator. If you need to have a bowel movement, any urine passed with the bowel movement should be collected. Try not to include feces with the urine collection. If feces do get mixed in, do not try to remove the feces from the urine collection bottle. Finish by collecting the first urine passed the next morning, adding it to the collection bottle. This should be within ten minutes before or after the time of the first morning void on the first day (which was flushed). In this example, you would try to void between 6:05 and 6:25 on the second day. If you need to urinate one hour before the final collection time, drink a full glass of water so that you can void again at the appropriate time. If you have to urinate 20 minutes before, try to hold the urine until the proper time. Please note the exact time of the final collection, even if it is not the same time as when collection began on day one. STORAGE -- The bottle(s) may be kept at room temperature for a day or two, but should be kept cool or refrigerated for longer periods of time. Some of the options to treat osteoporosis in your case: Please visit www.[employer]ray[employer] to learn more about this medication Teriparatide Pen Injector (DAILY INJECTION) [employer] Uses For bone strength. Instructions This medicine will be given to you at home. This medicine is used by injecting it into the skin. Please ask your doctor, nurse or pharmacist for the correct places on your body where this medicine can be injected. Carefully follow the instructions for preparing this medicine before injection. Read and make sure you understand the instructions for measuring your dose and using the syringe before using this medicine. Always inspect the medicine before using. The liquid should be clear and colorless. Do not use the medicine if it contains any particles or if it has changed color. Check the medicine before each use. If the liquid medicine has any particles in it, appears discolored, or if the vial appears damaged, do not use it. Keep this medicine in the refrigerator. Do not freeze. If the medicine becomes frozen, you will need to throw it away. Protect medicine from light. Never use any medicine that has . Please ask your doctor, nurse, or pharmacist how to discard unused medicines safely. Ask your doctor, nurse or pharmacist to show you how to use this medicine correctly. You or a family member can be trained to give this medicine at home. Change the location of the injection each time. Choose a location at least 1 inch from the last injection. It is important that you keep taking each dose of this medicine on time even if you are feeling well. If you forget to take a dose on time, take it as soon as you remember. If it is almost time for the next dose, do not take the missed dose. Return to your normal dosing schedule. Do not take 2 doses of this medicine at one time. Please tell your doctor and pharmacist about all the medicines you take. Include both prescription and hbjh-asx-ioxuuez medicines. Also tell them about any vitamins, herbal medicines, or anything else you take for your health. You may need vitamin and mineral supplements while on this medicine. Please speak with your doctor or pharmacist. It is very important that you follow your doctor's instructions for all blood tests. It is very important that you keep all appointments for medical exams and tests while on this medicine. Do not take the medicine more than once during 24 hours. Cautions Tell your doctor and pharmacist if you ever had an allergic reaction to a medicine. Symptoms of an allergic reaction can include trouble breathing, skin rash, itching, swelling, or severe dizziness. This medicine is associated with a rare but very serious medical condition. Please speak with your doctor about symptoms you should look out for while on this medicine. Notify your doctor immediately if you develop those symptoms. Some patients taking this medicine have experienced serious side effects. Please speak with your doctor to understand the risks and benefits associated with this medicine. Do not use the medication any more than instructed. This medicine may cause dizziness or fainting, especially after exercising or in hot weather. Be very careful when standing or sitting up quickly. Your ability to stay alert or to react quickly may be impaired by this medicine. Do not drive or operate machinery until you know how this medicine will affect you. Please check with your doctor before drinking alcohol while on this medicine. Call the doctor if there are any signs of confusion or unusual changes in behavior. Tell the doctor or pharmacist if you are , planning to be , or . Do not breastfeed while on this medicine. Ask your pharmacist if this medicine can interact with any of your other medicines. Be sure to tell them about all the medicines you take. Please tell all your doctors and dentists that you are on this medicine before they provide care. Do not start or stop any other medicines without first speaking to your doctor or pharmacist. Used needles and syringes should be thrown away properly in a medical waste container. Ask your doctor or pharmacist if you need help. Do not share this medicine with anyone who has not been prescribed this medicine. This medicine can cause serious side effects in some patients. Important information from the [place] Food and Drug Administration (FDA) is available from your pharmacist. Please review it carefully with your pharmacist to understand the risks associated with this medicine. Side Effects The following is a list of some common side effects from this medicine. Please speak with your doctor about what you should do if you experience these or other side effects. dizziness low blood pressure reaction at the area of the injection (pain, redness, swelling) pain in the joints muscle cramps nausea pain near injection site rapid heartbeat Call your doctor or get medical help right away if you notice any of these more serious side effects: severe or persistent bone, joint or jaw pain confusion constipation fainting muscle weakness unusual or unexplained tiredness or weakness vomiting A few people may have an allergic reaction to this medicine. Symptoms can include difficulty breathing, skin rash, itching, swelling, or severe dizziness. If you notice any of these symptoms, seek medical help quickly. Extra Please speak with your doctor, nurse, or pharmacist if you have any questions about this medicine. Abaloparatide Pen Injector (DAILY INJECTION) [employer] Uses For bone strength. Instructions This medicine will be given to you at home. This medicine is used by injecting it into the skin. Please ask your doctor, nurse or pharmacist for the correct places on your body where this medicine can be injected. Read and make sure you understand the instructions for measuring your dose and using the syringe before using this medicine. Always inspect the medicine before using. The liquid should be clear and colorless. Do not use the medicine if it contains any particles or if it has changed color. Check the medicine before each use. If the liquid medicine has any particles in it, appears discolored, or if the vial appears damaged, do not use it. Do not shake the medicine before using. Keep the medicine in the refrigerator until you are ready to use it. Do not freeze. Remove from the refrigerator and let it warm up to room temperature before using. Keep the medicine at room temperature once opened. Do not put it back into the refrigerator. If the medicine becomes frozen, you will need to throw it away. When you are ready to use the medicine, remove it from the refrigerator and then keep it at room temperature - below 77 degrees F (25 degrees C). Do not put it back in the refrigerator. Do not store the medicine pen with the needle attached. Always remove the needle after each use. Discard the injectable pen 30 days after first use, even if there is medicine left in the pen. Never use any medicine that has . Do not used the medicine past its expiration date or if it has been more than 30 days since it was removed from the refrigerator. Please ask your doctor, nurse, or pharmacist how to discard unused medicines safely. Wash your hands before and after handling this medicine. Ask your doctor, nurse or pharmacist to show you how to use this medicine correctly. You or a family member can be trained to give this medicine at home. Avoid injecting the medicine within 2 inches around the navel. Do not inject into skin that is red, swollen or itchy. Change the location of the injection each time. Choose a location at least 1 inch from the last injection. It is important that you keep taking each dose of this medicine on time even if you are feeling well. If you forget to take a dose on time, take it as soon as you remember if it is on the same day. If you don t remember until the next day, skip the missed dose and return to your regular schedule with the next dose. Do not take 2 doses at one time. Please tell your doctor and pharmacist about all the medicines you take. Include both prescription and ucak-sbx-xtforic medicines. Also tell them about any vitamins, herbal medicines, or anything else you take for your health. Talk to your doctor before taking other medicines, including aspirins and ibuprofen containing products. Speak to your doctor about which medicines are safe to use while you are on this medicine. Do not suddenly stop taking this medicine. Check with your doctor before stopping. It is very important that you continue using this medicine for the full number of days that it is prescribed. Please do not stop the medicine even if you start to feel better after the first few days. You may need vitamin and mineral supplements while on this medicine. Please speak with your doctor or pharmacist. It is very important that you follow your doctor's instructions for all blood tests. It is very important that you keep all appointments for medical exams and tests while on this medicine. Do not take the medicine more than once during 24 hours. Cautions Tell your doctor and pharmacist if you ever had an allergic reaction to a medicine. Symptoms of an allergic reaction can include trouble breathing, skin rash, itching, swelling, or severe dizziness. Some patients taking this medicine have experienced serious side effects. Please speak with your doctor to understand the risks and benefits associated with this medicine. Do not use the medication any more than instructed. This medicine may cause dizziness or fainting, especially after exercising or in hot weather. Be very careful when standing or sitting up quickly. Your ability to stay alert or to react quickly may be impaired by this medicine. Do not drive or operate machinery until you know how this medicine will affect you. Please check with your doctor before drinking alcohol while on this medicine. Call the doctor if there are any signs of confusion or unusual changes in behavior. Tell the doctor or pharmacist if you are , planning to be , or . Ask your pharmacist if this medicine can interact with any of your other medicines. Be sure to tell them about all the medicines you take. Please tell all your doctors and dentists that you are on this medicine before they provide care. Do not start or stop any other medicines without first speaking to your doctor or pharmacist. Used needles and syringes should be thrown away properly in a medical waste container. Ask your doctor or pharmacist if you need help. Do not share this medicine with anyone who has not been prescribed this medicine. This medicine can cause serious side effects in some patients. Important information from the [place] Food and Drug Administration (FDA) is available from your pharmacist. Please review it carefully with your pharmacist to understand the risks associated with this medicine. Side Effects The following is a list of some common side effects from this medicine. Please speak with your doctor about what you should do if you experience these or other side effects. dizziness low blood pressure reaction at the area of the injection (pain, redness, swelling) pain near injection site rapid heartbeat Call your doctor or get medical help right away if you notice any of these more serious side effects: severe or persistent bone, joint or jaw pain confusion constipation fainting muscle weakness nausea shortness of breath unusual or unexplained tiredness or weakness vomiting A few people may have an allergic reaction to this medicine. Symptoms can include difficulty breathing, skin rash, itching, swelling, or severe dizziness. If you notice any of these symptoms, seek medical help quickly. documented in this encounter [facility] 07-23-2022 History of Present illness Narrative Images from the original note were not included. ENDOCRINOLOGY CLINIC NOTE Reason for visit Yara Loya is a 71 year old female with fibromyalgia, RA seen in consultation for evaluation and discussion of treatment options for low bone density. Consult has been requested by [facility] She had surgeries for spinal stenosis and sees neurosurgery. Cervical and thoracic MRI in showed stenosis and chronic T3 compression fracture. There is consideration for another cervical spine surgery She sees rheumatology for fibromyalgia and RA and she takes MTX and plaquenil. 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: - last period: at age 44 - periods were regular > Medication exposures/pertinent medical or social history: (Glucocorticoid, AED use, relevant medications, hyperthyroidism, kidney stone/disease, eating disorder, malabsorption, immobility, smoking, excessive alcohol use etc) RA, steroid Smoked and stopped 10 years ago No alcohol Calcium/Vit D intake: Dietary calcium: drinks milk every day Supplements: 600 mg once a day Vitamin D intake: 5000 units daily Dental Procedure: None Radiation Exposure: None Height Loss: Lost 4 inches Past Medical History PAST MEDICAL HISTORY Diagnosis Date Arthritis of neck Fibromyalgia Herniated disc, cervical she says she has 7 herniated discs Osteoporosis Past Surgical History PAST SURGICAL HISTORY Procedure Laterality Date ARTHRD ANT INTERBODY MIN DSC CRV BELOW C2 12/14/14 DISCECTOMY ANT DCMPRN CORD CERVICAL 1 [facility] 12/14/14 DISCECTOMY ANT DCMPRN CORD CERVICAL EA [facility] 12/14/14 HEMORRHOID SURGERY HX 2014 PAST SURGICAL HISTORY OF 2000 back, done by ?DR. Kelley? TONSILLECTOMY & ADENOIDECTOMY <AGE 12 Medications Current Outpatient Medications Medication Sig iv contrast (will be provided with radiology test) MRI TSP Inject, intravenously, once for 1 dose. No IV access, insert saline lock prior to the beginning of sedation, infusion, injection of imaging exam. Discontinue saline lock post exam. If Pt. has a central line or IVAD, may access for administration according to line specific nursing protocol. Once exam is complete flush line and de-access according to line specific nursing protocol in the MR contrast administration guidelines link. hydrOXYchloroQUINE (PLAQUENIL) 200 mg tablet Take 200 mg by mouth once daily. folic acid 0.8 mg cap Take by mouth. methotrexate 2.5 mg tablet Take 2.5 mg by mouth one time only. oxyCODONE myristate (XTAMPZA ER) 13.5 mg CSpT Take by mouth. cholecalciferol (VITAMIN D3) 5,000 unit tab Take 5,000 Units by mouth once daily. cetirizine (ZYRTEC) 10 mg tablet Take 10 mg by mouth once daily. predniSONE (DELTASONE) 10 mg tablet Take 10 mg by mouth once daily. gabapentin (NEURONTIN) 300 mg capsule Take 1 capsule by mouth twice daily for 180 days. raloxifene (EVISTA) 60 mg tablet Take 60 mg by mouth once daily. meloxicam (MOBIC) 15 mg tablet Take 1 tablet by mouth once daily. Take with food. alendronate (FOSAMAX) 70 mg tablet Take 1 tablet by mouth once each week. OMEGA-3 FATTY ACIDS/FISH OIL (OMEGA 3 FISH OIL ORAL) Take by mouth once daily. iv contrast (will be provided with radiology test) MRI CSP Inject, intravenously, once for 1 dose. No IV access, insert saline lock prior to the beginning of sedation, infusion, injection of imaging exam. Discontinue saline lock post exam. If Pt. has a central line or IVAD, may access for administration according to line specific nursing protocol. Once exam is complete flush line and de-access according to line specific nursing protocol in the MR contrast administration guidelines link. (Patient not taking: Reported on 07/23/2022) CALCIUM CARBONATE (CALCIUM 300 ORAL) Take 1 tablet by mouth once daily. (Patient not taking: Reported on 07/23/2022) No current facility-administered medications for this visit. The medication list in the chart was reviewed. Allergies ALLERGIES Allergen Reactions Seasonal Allergies Other: See Comments sinus The allergy list in the chart was reviewed. Family History FAMILY HISTORY Problem Relation Age of Onset Stroke Mother Stroke Father Social History Social History Tobacco Use Smoking status: Former Packs/day: 1.00 Years: 45.00 Pack years: 45.00 Types: Cigarettes Quit date: 04/12/2013 Years since quittin.2 Smokeless tobacco: Never Substance Use Topics Alcohol use: No Drug use: No Review of Systems: 10 point review of systems was negative other than what is mentioned in the H&P Physical Exam BP 147/89 Pulse 91 Ht 144.8 cm (4' 9 ) Wt 49.4 kg (109 lb) SpO2 96% BMI 23.59 kg/m Body mass index is 23.59 kg/m . Last 3 Encounter Ht Readings: Date: Ht: 06/23/2022 147.3 cm (4' 10 ) 06/04/2022 147.3 cm (4' 10 ) 04/17/2022 147.3 cm (4' 10 ) General Appearance: Alert, cooperative, not in distress Head: Normocephalic, atraumatic Eyes: PERRL, conjunctiva/corneas clear, EOM's intact with no lid lag or proptosis Ear, nose, mouth, throat: Lips, mucosa, and tongue normal Neck: Supple Cardiovascular: Regular rate and rhythm, no murmur, rub, or gallop Respiratory: Clear to auscultation bilaterally GI: Soft, non-tender, bowel sounds present Musculoskeletal: back is not tender to palpation Extremities: No edema Skin: no rash Neurologic: AAOx 3 Psychiatric: appropriate mood Imaging Recent Laboratory Data: Reviewed and mentioned as above Assessment and recommendations Yara Loya is a 71 year old female seen in consultation for evaluation and discussion of treatment options for low bone density. Low bone density Most recent DXA from 10/2020 shows lowest T score -2.9 at the total hip level. The spine BMD is not reliable due to previous surgeries and possibly arthritis. She had fragility vertebral compression fracture. Risk factors for low bone density include age, ethnicity, postmenopausal state, glucocorticoid exposure, and rheumatoid arthritis. We will first complete secondary evaluation for other causes of low bone density. We will also do lumbar spine x-ray to screen for vertebral fractures at that level. She will repeat the DXA scan in October 2022 Ms. Loya has been taking antiresorptive medications for a total of about 20 years, and this may have led to adynamic bone disease. We will check her bone turnover markers. Given that she had compression fracture while on antiresorptive medication, and the fact that there is consideration for another spinal surgery, anabolic therapy is recommended if there are no contraindications based on biochemical evaluation. We discussed the options of Forteo, Tymlos and Evenity, and information was provided in the after visit summary. We will meet again in about 6 weeks to review the results and next steps. We will continue with her current vitamin D and calcium intake I thank my colleagues for involving me in the care of this patient My final recommendations will be communicated back to the requesting physician by way of shared Medical record or letter to requesting physician via [place] mail. I spent 55 minutes in the visit, with more than 50% of the total zcif-ro-xebk time of the visit in counseling / coordination of care. This note was created using [employer] dictation software. You may find errors that were missed during proofreading. They are purely unintentional and if there are any concerns regarding this dictation, please do not hesitate to call the dictating provider for clarification. Leslie Hackett MD documented in this encounter [facility] 06-23-2022 Note HNO ID: [id number] Author: Jamie Bull MD Service: ? Author Type: Physician Type: Progress Notes Filed: 06/23/2022 5:59 PM Note Text: SPINE SURGERY NEW PATIENT This is an in-person visit. PCP: Francisco Ferrari MD REFERRING PROVIDER: Dr. Adrián Pulido SUBJECTIVE HISTORY OF PRESENT ILLNESS: Yara Loya is a 71 year old female presenting alone. She complains of worsening neck and shoulder pain with intermittent radiation to the arms. She recounts it started out with a nerve-like pain and twitching. It radiated down to her groin and R leg. She also experienced R knee pain. The pain has been intermittent for a few years. She experiences intermittent numbness in her hands for a few months. She reports a slight change in balance; but denies any significant change. She denies any bowel bladder incontinence Of note the patient has a history of osteoporosis CHIEF COMPLAINT: Neck pain PRECIPITATING EVENT: Gradual; intermittent for more than 5 years DURATION OF SYMPTOMS: Almost a year; Or July 2021 PAIN EVALUATION No data found in the last 1 encounters. Pain Radiation: Neck pain radiating to shoulder and arm pain Aggravating Factors: Constant, driving, sitting Alleviating Factors: Medication Pain Ratio: Shoulder pain is greater than arm pain DERMATOMAL DISTRIBUTION: Left: T2/3 AMBULATORY STATUS: Ok, with pain ANTIPLATELET OR ANTICOAGULATION STATUS: No PREVIOUS CONSERVATIVE TREATMENTS: PREVIOUS SPINAL SURGERY: SURGERY #2: 2017 ACTIVE PROBLEM LIST Osteoporosis Arthritis Herniated Cervical Disc Fibromyalgia Back Pain, Lumbosacral Eczema Pain in Joint, Site Unspecified Cervicalgia Tobacco Abuse Disorder Hyperlipidemia PAST MEDICAL HISTORY Diagnosis Date Arthritis of neck Fibromyalgia Herniated disc, cervical she says she has 7 herniated discs Osteoporosis PAST SURGICAL HISTORY Procedure Laterality Date ARTHRD ANT INTERBODY MIN DSC CRV BELOW C2 12/14/14 DISCECTOMY ANT DCMPRN CORD CERVICAL 1 [facility] 12/14/14 DISCECTOMY ANT DCMPRN CORD CERVICAL EA [facility] 12/14/14 HEMORRHOID SURGERY HX 2014 PAST SURGICAL HISTORY OF 2001 back, done by ?DR. Kelley? TONSILLECTOMY AND ADENOIDECTOMY FAMILY HISTORY Problem Relation Age of Onset Stroke Mother Stroke Father Social History Tobacco Use Smoking status: Former Packs/day: 1.00 Years: 45.00 Pack years: 45.00 Types: Cigarettes Quit date: 04/12/2013 Years since quittin.2 Smokeless tobacco: Never Substance Use Topics Alcohol use: No Drug use: No ALLERGIES Allergen Reactions Seasonal Allergies Other: See Comments sinus MEDICATIONS: iv contrast (will be provided with radiology test) MRI CSP Inject, intravenously, once for 1 dose. No IV access, insert saline lock prior to the beginning of sedation, infusion, injection of imaging exam. Discontinue saline lock post exam. If Pt. has a central line or IVAD, may access for administration according to line specific nursing protocol. Once exam is complete flush line and de-access according to line specific nursing protocol in the MR contrast administration guidelines link. iv contrast (will be provided with radiology test) MRI TSP Inject, intravenously, once for 1 dose. No IV access, insert saline lock prior to the beginning of sedation, infusion, injection of imaging exam. Discontinue saline lock post exam. If Pt. has a central line or IVAD, may access for administration according to line specific nursing protocol. Once exam is complete flush line and de-access according to line specific nursing protocol in the MR contrast administration guidelines link. hydrOXYchloroQUINE (PLAQUENIL) 200 mg tablet Take 200 mg by mouth once daily. Alendronate Sodium (FOSAMAX) 70 mg/75 mL solution Take 70 mg by mouth one time a week. (Patient not taking: Reported on 06/04/2022) folic acid 0.8 mg cap Take by mouth. methotrexate 2.5 mg tablet Take 2.5 mg by mouth one time only. oxyCODONE myristate (XTAMPZA ER) 13.5 mg CSpT Take by mouth. cholecalciferol (VITAMIN D3) 5,000 unit tab Take 5,000 Units by mouth once daily. cetirizine (ZYRTEC) 10 mg tablet Take 10 mg by mouth once daily. predniSONE (DELTASONE) 10 mg tablet Take 10 mg by mouth once daily. gabapentin (NEURONTIN) 300 mg capsule Take 1 capsule by mouth twice daily for 180 days. raloxifene (EVISTA) 60 mg tablet Take 60 mg by mouth once daily. (Patient not taking: Reported on 06/04/2022) CALCIUM CARBONATE (CALCIUM 300 ORAL) Take 1 tablet by mouth once daily. (Patient not taking: Reported on 06/04/2022) meloxicam (MOBIC) 15 mg tablet Take 1 tablet by mouth once daily. Take with food. (Patient not taking: Reported on 06/04/2022) alendronate (FOSAMAX) 70 mg tablet Take 1 tablet by mouth once each week. OMEGA-3 FATTY ACIDS/FISH OIL (OMEGA 3 FISH OIL ORAL) Take by mouth once daily. REVIEW OF SYSTEMS: PAIN ASSESSMENT: See HPI. GENERAL: Denies fever, chills malaise and weight (more content not included)... [facility] 06-23-2022 History of Present illness Narrative SPINE SURGERY NEW PATIENT This is an in-person visit. PCP: Francisco Ferrari MD REFERRING PROVIDER: Dr. Adrián Pulido SUBJECTIVE HISTORY OF PRESENT ILLNESS: Yara Loya is a 71 year old female presenting alone. She complains of worsening neck and shoulder pain with intermittent radiation to the arms. She recounts it started out with a nerve-like pain and twitching. It radiated down to her groin and R leg. She also experienced R knee pain. The pain has been intermittent for a few years. She experiences intermittent numbness in her hands for a few months. She reports a slight change in balance; but denies any significant change. She denies any bowel bladder incontinence Of note the patient has a history of osteoporosis CHIEF COMPLAINT: Neck pain PRECIPITATING EVENT: Gradual; intermittent for more than 5 years DURATION OF SYMPTOMS: Almost a year; Or July 2021 PAIN EVALUATION No data found in the last 1 encounters. Pain Radiation: Neck pain radiating to shoulder and arm pain Aggravating Factors: Constant, driving, sitting Alleviating Factors: Medication Pain Ratio: Shoulder pain is greater than arm pain DERMATOMAL DISTRIBUTION: Left: T2/3 AMBULATORY STATUS: Ok, with pain ANTIPLATELET OR ANTICOAGULATION STATUS: No PREVIOUS CONSERVATIVE TREATMENTS: PREVIOUS SPINAL SURGERY: SURGERY #2: 2017 ACTIVE PROBLEM LIST Osteoporosis Arthritis Herniated Cervical Disc Fibromyalgia Back Pain, Lumbosacral Eczema Pain in Joint, Site Unspecified Cervicalgia Tobacco Abuse Disorder Hyperlipidemia PAST MEDICAL HISTORY Diagnosis Date Arthritis of neck Fibromyalgia Herniated disc, cervical she says she has 7 herniated discs Osteoporosis PAST SURGICAL HISTORY Procedure Laterality Date ARTHRD ANT INTERBODY MIN DSC CRV BELOW C2 12/14/14 DISCECTOMY ANT DCMPRN CORD CERVICAL 1 [facility] 12/14/14 DISCECTOMY ANT DCMPRN CORD CERVICAL EA [facility] 12/14/14 HEMORRHOID SURGERY HX 2014 PAST SURGICAL HISTORY OF 2000 back, done by ?DR. Kelley? TONSILLECTOMY & ADENOIDECTOMY <AGE 12 FAMILY HISTORY Problem Relation Age of Onset Stroke Mother Stroke Father Social History Tobacco Use Smoking status: Former Packs/day: 1.00 Years: 45.00 Pack years: 45.00 Types: Cigarettes Quit date: 04/12/2013 Years since quittin.2 Smokeless tobacco: Never Substance Use Topics Alcohol use: No Drug use: No ALLERGIES Allergen Reactions Seasonal Allergies Other: See Comments sinus MEDICATIONS: iv contrast (will be provided with radiology test) MRI CSP Inject, intravenously, once for 1 dose. No IV access, insert saline lock prior to the beginning of sedation, infusion, injection of imaging exam. Discontinue saline lock post exam. If Pt. has a central line or IVAD, may access for administration according to line specific nursing protocol. Once exam is complete flush line and de-access according to line specific nursing protocol in the MR contrast administration guidelines link. iv contrast (will be provided with radiology test) MRI TSP Inject, intravenously, once for 1 dose. No IV access, insert saline lock prior to the beginning of sedation, infusion, injection of imaging exam. Discontinue saline lock post exam. If Pt. has a central line or IVAD, may access for administration according to line specific nursing protocol. Once exam is complete flush line and de-access according to line specific nursing protocol in the MR contrast administration guidelines link. hydrOXYchloroQUINE (PLAQUENIL) 200 mg tablet Take 200 mg by mouth once daily. Alendronate Sodium (FOSAMAX) 70 mg/75 mL solution Take 70 mg by mouth one time a week. (Patient not taking: Reported on 06/04/2022) folic acid 0.8 mg cap Take by mouth. methotrexate 2.5 mg tablet Take 2.5 mg by mouth one time only. oxyCODONE myristate (XTAMPZA ER) 13.5 mg CSpT Take by mouth. cholecalciferol (VITAMIN D3) 5,000 unit tab Take 5,000 Units by mouth once daily. cetirizine (ZYRTEC) 10 mg tablet Take 10 mg by mouth once daily. predniSONE (DELTASONE) 10 mg tablet Take 10 mg by mouth once daily. gabapentin (NEURONTIN) 300 mg capsule Take 1 capsule by mouth twice daily for 180 days. raloxifene (EVISTA) 60 mg tablet Take 60 mg by mouth once daily. (Patient not taking: Reported on 06/04/2022) CALCIUM CARBONATE (CALCIUM 300 ORAL) Take 1 tablet by mouth once daily. (Patient not taking: Reported on 06/04/2022) meloxicam (MOBIC) 15 mg tablet Take 1 tablet by mouth once daily. Take with food. (Patient not taking: Reported on 06/04/2022) alendronate (FOSAMAX) 70 mg tablet Take 1 tablet by mouth once each week. OMEGA-3 FATTY ACIDS/FISH OIL (OMEGA 3 FISH OIL ORAL) Take by mouth once daily. REVIEW OF SYSTEMS: PAIN ASSESSMENT: See HPI. GENERAL: Denies fever, chills malaise and weight loss. HEENT: No recent change in vision or hearing. CARDIOVASCULAR: Denies chest pain, history of A-fib, valvular disease, or pacemaker/ICD. RESPIRATORY: Denies SOB, sputum production, and hemoptysis. GI: Denies GI ulcers, inflammatory disease, or liver disease. : Denies change in frequency or urgency, kidney disease, and burning with urination. MUSCULOSKELETAL: Negative for joint pain or swelling, back pain or muscle pain. SKIN: Denies rash or itching. PSYCHOLOGICAL: Denies uncontrolled depression or anxiety. NEURO: Denies CVA, seizures, headaches. ENDOCRINE: Denies diabetes, thyroid disease. HEMATOLOGY/LYMPHOLOGY: Denies cancer, bleeding or clotting disorders, anemia,and DVT's. ALLERGIC/IMMUNOLOGICAL: Denies risks for infection, or recent MRSA infections. Patient Entered Questionnaires PROMIS Score Percentiles PROMIS Global Health Scale 02/20/2016 03/12/2016 04/09/2016 Physical Health Percentile 7 4 0 Mental Health Percentile 5 3 1 Percentiles provide an indication of how the patient's score ranks in relation to the general population. Higher percentile rankings indicate better function/quality of life. 50th percentile is the average of the general population and indicates half of respondents had a worse score. Depression Screening: PHQ-9 03/28/2015 05/30/2015 02/20/2016 Score 26 23 21 PHQ-9 Self-harm Question 03/28/2015 05/30/2015 02/20/2016 Thoughts that you would be better off , or of hurting yourself in some way 2 3 2 PHQ-9 Self-Harm (Item 9) response options: 0 Not at all 1 Several days 2 More than half the days 3 Nearly every day PHQ-9 Levels: 0-4 No to mild depression 5-9 Mild depression 10-14 Moderate depression 15-19 Moderately severe depression 20-27 Severe depression OBJECTIVE: PHYSICAL EXAM There were no vitals taken for this visit. NEURO TESTS: Oriented x3 PERRL FS Motor: UE D 5/5, B 5/5, T 5/5, G 5/5, HI 5/5 LE HF 5/5, KE 5/5, DF 5/5, PF 5/5, EHL 5/5 Pollard positive Incision C/D/I Neutral posture Normal gait Positive trapezius DATA REVIEW MRI cervical and thoracic spine shows adjacent segment degeneration at the T2-3 and T3-4 abutting the spinal cord with no compression. Compression fracture at T3 with listhesis at T2-3 and erosion of the T2 inferior endplate. 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 It is causing patient moderate neck pain that has been managed with conservative management at the moment patient felt surgical intervention twice likely related to underlying osteoporosis. I discussed the patient the first thing we need to manage as the osteoporosis and we can subsequently readdress the distal junctional kyphosis 1. Consult to endocrinology for osteoporosis management for possible preoperative evaluation 2. Repeat DEXA scan 3. Follow up: 3 months SIGNATURE: Jamie Bull MD PATIENT NAME: Yara Loya DATE: June 23, 2022 TIME: 2:01 PM PAGER: Jolene Chiu, attest that this document has been prepared under the direction and in the presence of Jamie Bull MD on June 23, 2022 at 2:48 PM. documented in this encounter [facility] 06-04-2022 Note HNO ID: [id number] Author: Adrián Pulido PA-C Service: ? Author Type: Physician Meatman Type: Progress Notes Filed: 06/04/2022 1:34 PM Note Text: Adrián Pulido PA-C [facility]Spine Medicine [address] [address] Dear Francisco Ferrari MD, Yara Loya is a very pleasant 71 year old individual who comes in to the office on 06/04/2022 for follow-up regarding their Cervical spine. Has neck pain, shoulders, and arms. Pain is worse on the right side. Level of the pain is at 8/10. Patient is here alone today. Subjective: Compared to the last visit, symptoms have been the same. Ms. Loya is here for follow up and discussion of MRI results. She has been through extensive cervical fusion surgeries both anterior and posterior in the past, some of this work has been by Dr. Denny Monk here at [facility] ROS: Since last visit-patient DENIES fevers, chills, night sweats, unexpected weight loss or gain, abdominal pain, progressive weakness, paralysis, loss of bowel/bladder control, saddle numbness, stumbling gait, loss of coordination. Current Outpatient Medications Medication Sig Dispense Refill iv contrast (will be provided with radiology test) MRI CSP Inject, intravenously, once for 1 dose. No IV access, insert saline lock prior to the beginning of sedation, infusion, injection of imaging exam. Discontinue saline lock post exam. If Pt. has a central line or IVAD, may access for administration according to line specific nursing protocol. Once exam is complete flush line and de-access according to line specific nursing protocol in the MR contrast administration guidelines link. 1 Each 0 iv contrast (will be provided with radiology test) MRI TSP Inject, intravenously, once for 1 dose. No IV access, insert saline lock prior to the beginning of sedation, infusion, injection of imaging exam. Discontinue saline lock post exam. If Pt. has a central line or IVAD, may access for administration according to line specific nursing protocol. Once exam is complete flush line and de-access according to line specific nursing protocol in the MR contrast administration guidelines link. 1 Each 0 hydrOXYchloroQUINE (PLAQUENIL) 200 mg tablet Take 200 mg by mouth once daily. folic acid 0.8 mg cap Take by mouth. methotrexate 2.5 mg tablet Take 2.5 mg by mouth one time only. oxyCODONE myristate (XTAMPZA ER) 13.5 mg CSpT Take by mouth. cholecalciferol (VITAMIN D3) 5,000 unit tab Take 5,000 Units by mouth once daily. cetirizine (ZYRTEC) 10 mg tablet Take 10 mg by mouth once daily. predniSONE (DELTASONE) 10 mg tablet Take 10 mg by mouth once daily. gabapentin (NEURONTIN) 300 mg capsule Take 1 capsule by mouth twice daily for 180 days. 180 capsule 1 alendronate (FOSAMAX) 70 mg tablet Take 1 tablet by mouth once each week. 4 tablet 2 OMEGA-3 FATTY ACIDS/FISH OIL (OMEGA 3 FISH OIL ORAL) Take by mouth once daily. Alendronate Sodium (FOSAMAX) 70 mg/75 mL solution Take 70 mg by mouth one time a week. (Patient not taking: Reported on 06/04/2022) raloxifene (EVISTA) 60 mg tablet Take 60 mg by mouth once daily. (Patient not taking: Reported on 06/04/2022) CALCIUM CARBONATE (CALCIUM 300 ORAL) Take 1 tablet by mouth once daily. (Patient not taking: Reported on 06/04/2022) meloxicam (MOBIC) 15 mg tablet Take 1 tablet by mouth once daily. Take with food. (Patient not taking: Reported on 06/04/2022) 30 tablet 2 No current facility-administered medications for this visit. Exam: Blood pressure 120/70, pulse 93, height 147.3 cm (4' 10 ), weight 47.6 kg (105 lb), SpO2 98 %. Body mass index is 21.95 kg/m?. Station and Gait: favoring the right lower extremity, short strides, and wide-based Range of Motion: has difficulty turning head to the right or left Motor: Has mild deficits in hand intrinsics Sensory: Bilateral hand intermittent numbness but very frequent. There is not a specific dermatomal distribution. She denies numbness in the thoracic region and denies bowel and bladder area numbness and lower extremity numbness and tingling Reflexes: She is hyperreflexic in multiple areas and there is mild positivity to Pamella's on the left. There is 3 beats of ankle clonus on the left and 2 beats on the right. She is hyperreflexic in lower extremities at 3-4/4 symmetrically. Pain on Palpation: Mild pain at the back of the neck and upper thoracic region She has definite diminished motion as noted above when she turns left or right but she also struggles with extension reproducing upper extremity pain. There appears to be some muscle wasting in the interspace between the first and second digits of both hands Imaging: The following study/studies were reviewed with the patient during the visit: We reviewed her current cervical and thoracic MRI scans. They do show what appears to be L3 burst fracture of unknown ag (more content not included)... [facility] 06-04-2022 Instructions Adrián Pulido PA-C - 06/04/2022 1:20 PM EST How to review your options for a [facility] physician referral: Go to [email or web address] and look for the Find a Doctor tab right underneath the [facility] logo in the top left corner of the page. Click on that and then enter spine surgery in that search field. There should be 18 or 20 different physicians in the [facility] area for you to review their credentials, locations of practice, educational background, and specialties. Call [phone] to schedule. Look for someone who works with thoracic spine and fractures. documented in this encounter [facility] 06-04-2022 History of Present illness Narrative Adrián Pulido [facility]-C [facility] [address] [place] [address] Dear Francisco Ferrari MD, Yara Loya is a very pleasant 71 year old individual who comes in to the office on 06/04/2022 for follow-up regarding their Cervical spine. Has neck pain, shoulders, and arms. Pain is worse on the right side. Level of the pain is at 8/10. Patient is here alone today. Subjective: Compared to the last visit, symptoms have been the same. Ms. Loya is here for follow up and discussion of MRI results. She has been through extensive cervical fusion surgeries both anterior and posterior in the past, some of this work has been by Dr. Denny Monk here at [facility] ROS: Since last visit-patient DENIES fevers, chills, night sweats, unexpected weight loss or gain, abdominal pain, progressive weakness, paralysis, loss of bowel/bladder control, saddle numbness, stumbling gait, loss of coordination. Current Outpatient Medications Medication Sig Dispense Refill iv contrast (will be provided with radiology test) MRI CSP Inject, intravenously, once for 1 dose. No IV access, insert saline lock prior to the beginning of sedation, infusion, injection of imaging exam. Discontinue saline lock post exam. If Pt. has a central line or IVAD, may access for administration according to line specific nursing protocol. Once exam is complete flush line and de-access according to line specific nursing protocol in the MR contrast administration guidelines link. 1 Each 0 iv contrast (will be provided with radiology test) MRI TSP Inject, intravenously, once for 1 dose. No IV access, insert saline lock prior to the beginning of sedation, infusion, injection of imaging exam. Discontinue saline lock post exam. If Pt. has a central line or IVAD, may access for administration according to line specific nursing protocol. Once exam is complete flush line and de-access according to line specific nursing protocol in the MR contrast administration guidelines link. 1 Each 0 hydrOXYchloroQUINE (PLAQUENIL) 200 mg tablet Take 200 mg by mouth once daily. folic acid 0.8 mg cap Take by mouth. methotrexate 2.5 mg tablet Take 2.5 mg by mouth one time only. oxyCODONE myristate (XTAMPZA ER) 13.5 mg CSpT Take by mouth. cholecalciferol (VITAMIN D3) 5,000 unit tab Take 5,000 Units by mouth once daily. cetirizine (ZYRTEC) 10 mg tablet Take 10 mg by mouth once daily. predniSONE (DELTASONE) 10 mg tablet Take 10 mg by mouth once daily. gabapentin (NEURONTIN) 300 mg capsule Take 1 capsule by mouth twice daily for 180 days. 180 capsule 1 alendronate (FOSAMAX) 70 mg tablet Take 1 tablet by mouth once each week. 4 tablet 2 OMEGA-3 FATTY ACIDS/FISH OIL (OMEGA 3 FISH OIL ORAL) Take by mouth once daily. Alendronate Sodium (FOSAMAX) 70 mg/75 mL solution Take 70 mg by mouth one time a week. (Patient not taking: Reported on 06/04/2022) raloxifene (EVISTA) 60 mg tablet Take 60 mg by mouth once daily. (Patient not taking: Reported on 06/04/2022) CALCIUM CARBONATE (CALCIUM 300 ORAL) Take 1 tablet by mouth once daily. (Patient not taking: Reported on 06/04/2022) meloxicam (MOBIC) 15 mg tablet Take 1 tablet by mouth once daily. Take with food. (Patient not taking: Reported on 06/04/2022) 30 tablet 2 No current facility-administered medications for this visit. Exam: Blood pressure 120/70, pulse 93, height 147.3 cm (4' 10 ), weight 47.6 kg (105 lb), SpO2 98 %. Body mass index is 21.95 kg/m . Station and Gait: favoring the right lower extremity, short strides, and wide-based Range of Motion: has difficulty turning head to the right or left Motor: Has mild deficits in hand intrinsics Sensory: Bilateral hand intermittent numbness but very frequent. There is not a specific dermatomal distribution. She denies numbness in the thoracic region and denies bowel and bladder area numbness and lower extremity numbness and tingling Reflexes: She is hyperreflexic in multiple areas and there is mild positivity to Pamella's on the left. There is 3 beats of ankle clonus on the left and 2 beats on the right. She is hyperreflexic in lower extremities at 3-4/4 symmetrically. Pain on Palpation: Mild pain at the back of the neck and upper thoracic region She has definite diminished motion as noted above when she turns left or right but she also struggles with extension reproducing upper extremity pain. There appears to be some muscle wasting in the interspace between the first and second digits of both hands Imaging: The following study/studies were reviewed with the patient during the visit: We reviewed her current cervical and thoracic MRI scans. They do show what appears to be L3 burst fracture of unknown age that is retropulsed toward the spinal canal. The canal itself appears to be fairly wide in that area but it is appreciably narrowed as a result of the T3 fracture and disc complex. She has no obvious T2 signal changes at this area. She also brought in additional imaging as requested. She had had some studies done outside of [facility] in the interval between 2015 and 2021. We uploaded those into [employer] and copied off the reports for scanning into her chart. Assessment/Plan: Encounter Diagnosis ICD-10-CM 1. Fusion of spine of cervicothoracic region M43.23 CONSULT TO NEUROSURGERY 2. Arthrodesis status Z98.1 CONSULT TO NEUROSURGERY 3. Adverse effect of treatment, initial encounter T88.9XXA CONSULT TO NEUROSURGERY 4. Closed stable burst fracture of third thoracic vertebra with routine healing, subsequent encounter S22.031D CONSULT TO NEUROSURGERY RTC: on an as-needed basis (PRN) Other/Discussion: I am recommending neurosurgical evaluation for her current situation. She is currently essentially neurologically intact as noted above, but I did caution her carefully about making sure she does not get up on any ladders for any reason and that she does not do work overhead or undergo any manipulative type treatment such as chiropractic or massage in the neck or thoracic region. He will also bring her large stack of medical records and the outside CDs that hold her studies that were uploaded to [employer] today. She will carry these to her neurosurgical appointment in case there is any question or discrepancy with what has uploaded into [employer] at that point in time. Time spent: 45 minutes today with this patient visit. This includes lgue-ql-[id number] time, review of chart records regarding conservative care history, spine-pertinent imaging, and communication/care coordination with referring provider, problem-specific history-taking and counseling/education regarding treatment options. This document has been created with the use of voice recognition technology. It may contain inaccuracies: (e.g. misspellings, inaccurate syntax or word sense) that have escaped review. Mecca Hester MA documented in this encounter [facility] 05-31-2022 Note HNO ID: [id number] Author: RT Freddy(R) Service: Radiology Author Type: Technologist Type: Progress Notes Filed: 05/31/2022 2:37 PM Note Text: Radiology Service Progress Note DATE OF SERVICE: May 31, 2022 TIME: 2:36 PM PATIENT IDENTITY VERIFICATION COMPLETED USING TWO (2) STANDARD IDENTIFIERS: Name and Date of confirmed by patient verbally. FALL SCREENING: Has the patient had 2 falls in the last year or 1 fall with injury or currently using an Ambulatory Assistive Device (Walker, Cane, Wheelchair, Crutches, etc.)? No PATIENT GENDER DATA: Female. status: : No status: NO. PATIENT RELEVANT IMPLANT DATA REVIEWED: Yes ALLERGIES: Reviewed and unchanged CONTRAST ALLERGY: NO. EXAM: MRI - CONTRAST TYPE: GROUP II PERIPHERAL IV DATA: Ambulatory: A peripheral IV was started in the Right antecubital site with a Angio cath: 20 gauge. RADIOLOGY DEPARTMENT: MR; Exam(s) Completed: Spine: Cervical spine and Thoracic spine SIGNATURE: RT Freddy(R) PATIENT NAME: Yara Loya DATE: May 31, 2022 TIME: 2:36 PM [facility] 05-31-2022 History of Present illness Narrative Radiology Service Progress Note DATE OF SERVICE: May 31, 2022 TIME: 2:36 PM PATIENT IDENTITY VERIFICATION COMPLETED USING TWO (2) STANDARD IDENTIFIERS: Name and Date of confirmed by patient verbally. FALL SCREENING: Has the patient had 2 falls in the last year or 1 fall with injury or currently using an Ambulatory Assistive Device (Walker, Cane, Wheelchair, Crutches, etc.)? No PATIENT GENDER DATA: Female. status: : No status: NO. PATIENT RELEVANT IMPLANT DATA REVIEWED: Yes ALLERGIES: Reviewed and unchanged CONTRAST ALLERGY: NO. EXAM: MRI - CONTRAST TYPE: GROUP II PERIPHERAL IV DATA: Ambulatory: A peripheral IV was started in the Right antecubital site with a Angio cath: 20 gauge. RADIOLOGY DEPARTMENT: MR; Exam(s) Completed: Spine: Cervical spine and Thoracic spine SIGNATURE: RT Freddy(R) PATIENT NAME: Yara Loya DATE: May 31, 2022 TIME: 2:36 PM documented in this encounter [facility] 04-17-2022 Note HNO ID: [id number] Author: LUKE Jessica Service: Radiology Author Type: Technologist Type: Progress Notes Filed: 04/17/2022 10:50 AM Note Text: Radiology Service Progress Note PATIENT NAME: Yara Loya DATE OF SERVICE: April 17, 2022 TIME: 10:50 AM PATIENT IDENTITY VERIFICATION COMPLETED USING TWO (2) IDENTIFIERS: Name and Date of confirmed by patient verbally. FALL SCREENING: Has the patient had 2 falls in the last year or 1 fall with injury or currently using an Ambulatory Assistive Device (Walker, Cane, Wheelchair, Crutches, etc.)? No PATIENT GENDER DATA: Female. status: : No status: NO. PATIENT RELEVANT IMPLANT DATA REVIEWED: Not Applicable RADIOLOGY DEPARTMENT: General X-ray: Exam(s) Completed: Spine X-Ray(s): Cervical AP / LAT / FLEX-EXT PERIPHERAL IV DATA: Not applicable SIGNED BY: LUKE Jessica April 17, 2022 10:50 AM [facility] 04-17-2022 Instructions Adrián Pulido PA-C - 04/17/2022 10:00 AM EST documented in this encounter [facility] 04-17-2022 History of Present illness Narrative Images from the original note were not included. Adrián Pulido PA-C [facility] [address] [facility] [address] [place] [address] 04/17/2022 ASSESSMENT AND PLAN: Assessment : Encounter Diagnosis ICD-10-CM 1. Cervicalgia M54.2 XR CERV OTHER 4V AP/LAT/FLX/EXT CONSULT TO PHYSICAL THERAPY MRI CERVICAL SPINE WO/W IVCON iv contrast (will be provided with radiology test) iv contrast (will be provided with radiology test) XR CERV GENERAL 2V AP/LAT 2. Arthrodesis status Z98.1 XR CERV OTHER 4V AP/LAT/FLX/EXT CONSULT TO PHYSICAL THERAPY MRI CERVICAL SPINE WO/W IVCON iv contrast (will be provided with radiology test) MRI THORACIC SPINE WO/W IVCON iv contrast (will be provided with radiology test) XR CERV GENERAL 2V AP/LAT 3. Adverse effect of treatment, initial encounter T88.9XXA XR CERV OTHER 4V AP/LAT/FLX/EXT CONSULT TO PHYSICAL THERAPY MRI CERVICAL SPINE WO/W IVCON iv contrast (will be provided with radiology test) MRI THORACIC SPINE WO/W IVCON iv contrast (will be provided with radiology test) XR CERV GENERAL 2V AP/LAT Discussion: Ms. Loya presents a complex cervical postsurgical situation with multiple procedures as noted below. Had cervical surgery by Dr. Denny Monk in 2014, then had a revision procedure at [facility] by Dr. Dutta in 2016 or 2017. She did well for a couple years afterward and had done treatment locally in [place] by pain management with Dr. Christianson where she had injections. She did not bring any records to know specifically what type of injections were done but she reported no help at all from them. She won't go back to [place] because it's too far to drive. Ice is the only thing that seems to give her some help. She reports having had some studies regarding her neck in the past few months in [place], but there is nothing available for review in [facility]. She has hyperreflexia and appearance of chronic myelopathy. She has regional symptoms on her left side including her left shoulder, left axillary region, left side of her abdomen, left hip and groin area There is diffuse tenderness over bony prominences and musculature throughout this region on the left. There is appreciably diminished cervical motion secondary to extensive cervical thoracic fusion Posterior cervical fusion surgical wound appears to be healed well but there is muscular atrophy and prominence of spinous processes palpated. Anterior cervical wound is nearly invisible and well-healed. Gait is mildly flexed and appears to be antalgic. There is wasting of the intrinsic muscles of the hands especially at the thenar interspace She obtained the x-rays I ordered directly after today's office visit. These films show anterior cervical plate placed approximately C5 through C7 with vertebrectomy and interbody strut graft. There seems to be possible diminished purchase at the lower aspect of this anterior construct. There is a separate more lengthy posterior construct spanning from C2 through RIA to with pedicle screws, lateral mass screws, and rods bilaterally. There appears to be some posterolateral fusion mass or severe facet disease on the right in the mid cervical region. Screws and rods from posterior procedure appear to be intact throughout. There is mild degenerative scoliosis distal to the fusion segment in the upper thoracic region and what appears to be likely osteopenia generalized throughout This patient has had no recent [facility] work-up or evaluation and I will start that today with PT, x-rays, MRI scans of thoracic and cervical region in the hopes of determining with greater degree of certainty if she has any failure of instrumentation or visible myelomalacia of the cord. Once these studies are updated, she may be a candidate for referral to neurosurgery for consultation. Plan : DIAGNOSTIC TESTING: -X-ray views will be obtained to better evaluate bony structures. -Dynamic plain radiographs of the Cervical spine are ordered. -An MRI is ordered to better delineate the soft tissue structures contributing to the patient's current symptoms, including the intervertebral disks, facet joints, spinal ligaments and neural elements. The study will aid with evaluating the need for, and planning, future interventional procedures. REFERAL FOR SERVICES: -Physical therapy will be instituted. ACTIVITY RECOMMENDATIONS: -The patient is encouraged to avoid bed rest and maintain normal activity. FOLLOW-UP: -The patient is instructed to follow up after studies are complete. -The patient is instructed to return after six weeks of therapy. This document has been created with the use of voice recognition technology. It may contain inaccuracies: (e.g. misspellings, inaccurate syntax or word sense) that have escaped review. Time spent: 68 minutes today with this patient visit. This includes asnj-vl-edml time, review of chart records regarding conservative care history, spine-pertinent imaging, and communication/care coordination with referring provider, problem-specific history-taking and counseling/education regarding treatment options. cc: No referring provider defined for this encounter. Phone: N/A Fax: Results of consultation to be transmitted via electronic medical record for those providers who practice within [facility] or with access to [email or web address] via [facility], or via letter. ____ ################################## ################################## #### CHIEF COMPLAINT: Patient is here for the neck pain, right shoulder, pain goes to underarm. Has the neck pain for years but in right side pain started. Level of the pain is at 8/10. Pain radiates down to her right side, right leg. 2 months ago she had cervical injection, in [place], didn't help. HPI: See Discussiuon above History of bowel or bladder dysfunction (not IBS or constipation): No History of previous spinal surgery: Yes, performed in 2014, [address] Monk at [facility]. The procedure was a Cervical Diskectomy and fusion C3-4, C4-5. History of spinal fracture: No Work Status: retired NON-OPERATIVE CARE: Medication(s): She has tried the following for relief of her symptoms: OTC Tylenol Neurontin/gabapentin Physical Therapy: She has had physical therapy for her current symptoms. This was completed years ago. The therapy did not provide any significant relief. Spinal Injections: She has gotten prior spinal injections. Cervical epidural injection Other: Chiropractice care: TENS unit Current Outpatient Medications Medication Sig Dispense Refill hydrOXYchloroQUINE (PLAQUENIL) 200 mg tablet Take 200 mg by mouth once daily. folic acid 0.8 mg cap Take by mouth. methotrexate 2.5 mg tablet Take 2.5 mg by mouth one time only. oxyCODONE myristate (XTAMPZA ER) 13.5 mg CSpT Take by mouth. cholecalciferol (VITAMIN D3) 5,000 unit tab Take 5,000 Units by mouth once daily. cetirizine (ZYRTEC) 10 mg tablet Take 10 mg by mouth once daily. predniSONE (DELTASONE) 10 mg tablet Take 10 mg by mouth once daily. gabapentin (NEURONTIN) 300 mg capsule Take 1 capsule by mouth twice daily for 180 days. 180 capsule 1 alendronate (FOSAMAX) 70 mg tablet Take 1 tablet by mouth once each week. 4 tablet 2 OMEGA-3 FATTY ACIDS/FISH OIL (OMEGA 3 FISH OIL ORAL) Take by mouth once daily. Alendronate Sodium (FOSAMAX) 70 mg/75 mL solution Take 70 mg by mouth one time a week. raloxifene (EVISTA) 60 mg tablet Take 60 mg by mouth once daily. (Patient not taking: No sig reported) CALCIUM CARBONATE (CALCIUM 300 ORAL) Take 1 tablet by mouth once daily. (Patient not taking: Reported on 04/17/2022) meloxicam (MOBIC) 15 mg tablet Take 1 tablet by mouth once daily. Take with food. (Patient not taking: No sig reported) 30 tablet 2 No current facility-administered medications for this visit. Allergies: Seasonal Allergies PAST MEDICAL HISTORY Diagnosis Date Arthritis of neck Fibromyalgia Herniated disc, cervical she says she has 7 herniated discs Osteoporosis PAST SURGICAL HISTORY Procedure Laterality Date ARTHRD ANT INTERBODY MIN DSC CRV BELOW C2 12/14/14 DISCECTOMY ANT DCMPRN CORD CERVICAL 1 [facility] 12/14/14 DISCECTOMY ANT DCMPRN CORD CERVICAL EA NTRSP 12/14/14 HEMORRHOID SURGERY HX 2013 PAST SURGICAL HISTORY OF 2000 back, done by ?DR. Kelley? TONSILLECTOMY & ADENOIDECTOMY <AGE 12 Social History Tobacco Use Smoking status: Former Packs/day: 1.00 Years: 45.00 Pack years: 45.00 Types: Cigarettes Quit date: 04/12/2013 Years since quittin.0 Smokeless tobacco: Never Substance Use Topics Alcohol use: No Drug use: No FAMILY HISTORY Problem Relation Age of Onset Stroke Mother Stroke Father REVIEW OF SYSTEMS: Constitutional: (-) Fever/Chills (-) Night Sweats (-) Weight Gain (-) Weight Loss (-) Fatigue Gastrointestinal: (-) Abdominal Pain (-) Diarrhea (+) Constipation (-) Nausea/Vomiting (-) Heart Burn Cardiovascular: (-) Chest Pain (-) Palpitations (-) Lightheadedness (-) Swelling of Ankles (-) Hx Heart Surgery/Stent Respiratory: (-) Short of Breath (-) Cough (-) Snoring Neurologic: (-) Headache (-) Blurry Vision (-) Fainting Skin: (-) Rashes (-) Itching (-) Other Lesions Psychiatric: (-) Depression (-) Anxiety (-) Suicidal Thoughts Genitourinary: (-) Frequency (-) Urgency Endocrine: (-) Thyroid Disorder (-) Diabetes Hematologic: (-) Prolonged Bleeding (+) Easy Bruising ################################## ################################## ################################## ########################### PHYSICAL EXAM: Blood pressure 120/68, pulse 79, height 147.3 cm (4' 10 ), weight 48.8 kg (107 lb 9.6 oz), SpO2 97 %. Body mass index is 22.49 kg/m . General: Patient is a(n) good historian. The patient appears approximately the recorded age and is sitting comfortably in the examining room. The patient is short in stature and is slender in appearance. This individual has difficulty arising from a sitting position and does have difficulty acquiring a full, upright position when standing. Station and Gait: flexed posture and antalgic gait leaning forward, short strides, wide-based, and slow pace The patient is unable to walk in a tandem gait. MENTAL STATUS EXAMINATION: The patient was neatly dressed and well groomed. The patient had good eye contact and rapport was average to establish. The patient appeared to be alert and oriented in all spheres. The patient's overall medical judgment appeared to be good.The patient's motivation for treatment was judged based on today's encounter to be good. SPINE: Cervical Lordosis: Decreased/flattened Thoracic Kyphosis: Normal Skin: Normal-no rashes, bruises, lesions, or signs of localized trauma., Skin color, texture and turgor normal. Paraspinal atrophy: Yes, Location: C4, Right paraspinal musculature Left paraspinal musculature, C5, Right paraspinal musculature Left paraspinal musculature, C6, Right paraspinal musculature Left paraspinal musculature, C7, Right paraspinal musculature Left paraspinal musculature, and T1, Right paraspinal musculature Left paraspinal musculature Range of Motion: Flexion: 3 fingerbreadths from chin to chest Pain: No Extension: limited with pain Rotation: Right: limited with pain Left: limited with pain PALPATION TENDERNESS: Moderate tenderness at: cervical spine, shoulders/trapezius, thoracic spine, and posterior pelvis Hyperesthesia present: No Regional symptoms present: Yes, in the following locations: Left side of her body from her shoulder down to her hip. Increased pain with axial loading: No Distraction: Normal Pain responses: elevated NEUROLOGIC EXAM: Requires verbal cues to minimize cog-wheel or give-way resistance: No MOTOR: Deltoid R: 5/5 L: 5/5 Biceps R: 5/5 L: 5/5 Wrist Extension R: 5/5 L: 5/5 Wrist Flexion R: 5/5 L: 5/5 Triceps R: 4/5 L: 4/5 Distance Education Faculty Liaison R: -4/5 L: -4/5 Interossei R: -4/5 L: -4/5 SENSATION to Light Touch: Cervical: C2-T2 symmetrically normal. Thoracic: T1-L1 symmetrically normal. Spurling's: Reproduces axial pain only. REFLEXES: Upper Extremity: Brachioradialis: R: 3+ inverted? No L: 3+ inverted? No and Yes Biceps: R: 4+ L: 4+ Triceps: R: 3+ L: 3+ Lower Extremity: Patella tendon: R: 4+ L: 4+ Achilles tendon: R: 3+ L: 3+ Pollard's: Positive on the left. Clonus: R: 1-2 beats L: 1-2 beats Babinski Sign Present: Negative bilaterally. IMAGING STUDIES: See discussion above documented in this encounter [facility] 03-04-2022 Miscellaneous Notes Patient returned call, advised of Dr. Cao message and she is going to see her pain management doctor tomorrow. She does not want to increase the gabapentin it makes her feel like a zombie. 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 Spoke with patient, advised Dr. Cao is only at [place] location on Fridays and offered virtual visit, patient declined. Patient placed on wait list. She also state she never received information from her EMG and she is still in pain. States she has to take an ice pack and heating pack with her everywhere she goes. Please advise Pt called in concerned her appointment scheduled with Dr. Cao is too far out. Pt declined scheduling at any other location, but is experiencing a lot of pain and issues taking her medication. Please advise, Amelie Brito documented in this encounter [facility] 02-28-2022 Miscellaneous Notes Spoke with Bev at [facility] and informed her of Dr. Cao's message. Faxing encounter over to Dr. Mccain's office Attn Bev @ [phone] Please call them and advise that neurology does not provide clearance for surgery There is no literature guiding this topic. If there is a specific question, please have the surgeon reach out to me directly to discuss. Received demographics and surgery clearance form from [facility]. Placed in tray for review and signature. documented in this encounter [facility] 02-28-2022 History of Present illness Narrative UNIVERSAL PROTOCOL / SAFETY CHECKLIST Procedure to be Performed: EMG Sign In: A Moment of CARE was completed. Personnel directly involved with the procedure wore the appropriate PPE (Personal Protective Equipment). Patient/Surrogate Stated/Verified: PATIENT VERIFIED(optional for EMERGENT procedures): Patient name, Date of , Relevant allergies, and The intended procedure Time Out Communication: Intended patient and procedure match the source documents. Correct side/site marked and visible. Sign Out: SIGN OUT (optional for EMERGENT procedures): Post-procedure follow-up management communicated and Plan of Care Visit completed when applicable. DO Sophia Bob EMG Tech documented in this encounter [facility] 02-07-2022 Instructions Mayur Cao MD - 02/07/2022 11:11 AM EDT Increase your dose of gabapentin to 300 mg twice a day (morning and night). Please call the [facility] [place] call center at [phone] to make your EMG testing appointment at one of the [facility] locations: [facility] and [facility] Please make sure that your test is scheduled at one of the above locations. documented in this encounter [facility] 02-07-2022 History of Present illness Narrative HPI: This is Ms. Yara Loya a 71 year old female from who presents to the [facility] neurology department with a chief complaint of Referral is from Mike Hopper DO; her PCP It's like nerve, it will feel like i'm on total fire, off/on, not all the time, terrible pain, ongoing since july 2021, started july 2021, she said that it is neuropathy, or some kind of nerve problem, The problem is all on her right side Started in the right arm/shoulder area, and spread to right chest wall Started faintly. It has gotten heavier. Radiaties up right arm, down right side, into right leg Some days pain is bad, throbbing in night, needs ice or heating pad under arm pit or on top of shoulder. Has been having problem w/ right knee, had xray, fell and fractured right knee one year ago MRI: Two tears Find out from neurologist if there's any reason that you can't have surgery Testing And Regulating Technician started her on prednisone 10 mg daily, improved R knee pain. Also helped right shoulder/side pain Said she could only take short term d/t osteoporosis. Hx of cervical spine fusion x 2, first surgery 8 years ago at [facility], last surgery about 4 years ago; in [place] at [facility] Hx of lumbar spine fusion 2-[address] [facility] in [place] Hx of bilateral hip replacement, most recent 2 months ago Hx of R shoulder replacement at least 6 years ago Also on methotrexate, plaquenil Raloxifene; alendronate for osteoporosis She follows w/ pain mgmnt Marion Christianson MD PDMP 381 Current neuroactive medications: Gpn 100 mg tid Oxycodone ER Meloxicam PMH: PAST MEDICAL HISTORY Diagnosis Date Arthritis of neck Fibromyalgia Herniated disc, cervical she says she has 7 herniated discs Osteoporosis Medications: Current Outpatient Medications Medication Sig Dispense Refill hydrOXYchloroQUINE (PLAQUENIL) 200 mg tablet Take 200 mg by mouth once daily. Alendronate Sodium (FOSAMAX) 70 mg/75 mL solution Take 70 mg by mouth one time a week. folic acid 0.8 mg cap Take by mouth. methotrexate 2.5 mg tablet Take 2.5 mg by mouth one time only. gabapentin (NEURONTIN) 100 mg capsule Take 100 mg by mouth three times daily. oxyCODONE myristate (XTAMPZA ER) 13.5 mg CSpT Take by mouth. cholecalciferol (VITAMIN D-3) 5,000 unit tab Take 5,000 Units by mouth once daily. cetirizine (ZYRTEC) 10 mg tablet Take 10 mg by mouth once daily. predniSONE (DELTASONE) 10 mg tablet Take 10 mg by mouth once daily. CALCIUM CARBONATE (CALCIUM 300 ORAL) Take 1 tablet by mouth once daily. raloxifene (EVISTA) 60 mg tablet Take 60 mg by mouth once daily. (Patient not taking: Reported on 02/07/2022) meloxicam (MOBIC) 15 mg tablet Take 1 tablet by mouth once daily. Take with food. (Patient not taking: Reported on 02/07/2022) 30 tablet 2 alendronate (FOSAMAX) 70 mg tablet Take 1 tablet by mouth once each week. (Patient not taking: Reported on 02/07/2022) 4 tablet 2 OMEGA-3 FATTY ACIDS/FISH OIL (OMEGA 3 FISH OIL ORAL) Take by mouth once daily. (Patient not taking: Reported on 02/07/2022) No current facility-administered medications for this visit. Allergies: ALLERGIES Allergen Reactions Seasonal Allergies Other: See Comments sinus Social History: Social History Tobacco Use Smoking status: Former Packs/day: 1.00 Years: 45.00 Pack years: 45.00 Types: Cigarettes Smokeless tobacco: Never Tobacco comments: curently 1 pack per month Substance Use Topics Alcohol use: No Drug use: No Family History: FAMILY HISTORY Problem Relation Age of Onset Stroke Mother Stroke Father ROS: A complete review of systems was performed. All systems negative other than those mentioned in HPI. Physical Exam: Vitals: BP 141/85 (BP Site: Left Arm, BP Position: Sitting, BP Cuff Size: Regular Adult) Pulse 84 Wt 46.7 kg (103 lb) BMI 20.12 kg/m General appearance: no acute distress. Neurological Exam: MSE: Alert and oriented to person, place, and time. Speech is fluent without dysarthria or aphasia. Recall is intact to recent and remote events. Attention and concentration are intact. Fund of knowledge is intact. CN: Pupils equally round and reactive to light. Extraoccular muscles intact. Visual corbett full. Facial sensation deferred d/t covid. Facial muscles symmetric. Hearing intact to voice. Tongue/palate deferred d/t covid. Shoulder shrug 5/5 bilaterally. MSK: Normal bulk and tone throughout. Deltoid Triceps Biceps Wrist ext. Hand intrinsic Hip flexion Knee flexion Knee Ext. Vinod. Flex Pl. flex Right 4+ 5 4 5 5 5 5 5 5 5 Left 5 5 5 5 5 5 5 5 5 5 Sensation: Intact to light touch, pinprick, and vibration throughout. Reflexes: R L Biceps 3 3 Triceps 3 3 Brachioradialis 3 3 Patellar 3 3 Achilles 3 3 Crossed adductors on L Toes downgoing on R, equivocal on left Cerebellar: Intact finger to nose bilaterally. Gait: antalgic. Labs: WBC Date Value Ref Range Status 12/16/2014 7.05 3.70 - 11.00 k/uL Final Hemoglobin Date Value Ref Range Status 12/16/2014 9.3 (L) 11.5 - 15.5 g/dL Final Hematocrit Date Value Ref Range Status 12/16/2014 26.3 (L) 36.0 - 46.0 % Final MCV Date Value Ref Range Status 12/16/2014 91.3 80.0 - 100.0 fL Final Platelet Count Date Value Ref Range Status 12/16/2014 146 (L) 150 - 400 k/uL Final Sodium Date Value Ref Range Status 12/16/2014 139 132 - 148 mmol/L Final Potassium Date Value Ref Range Status 12/16/2014 4.0 3.5 - 5.0 mmol/L Final Chloride Date Value Ref Range Status 12/16/2014 103 98 - 110 mmol/L Final CO2 Date Value Ref Range Status 12/16/2014 25 23 - 32 mmol/L Final BUN Date Value Ref Range Status 12/16/2014 5 (L) 8 - 25 mg/dL Final Creatinine Date Value Ref Range Status 03/12/2016 1.00 (H) 0.58 - 0.96 mg/dL Final Calcium Date Value Ref Range Status 12/16/2014 9.5 8.5 - 10.5 mg/dL Final Albumin Date Value Ref Range Status 12/16/2014 3.5 3.5 - 5.0 g/dL Final Protein, Total Date Value Ref Range Status 12/16/2014 5.6 (L) 6.0 - 8.4 g/dL Final AST Date Value Ref Range Status 12/16/2014 18 7 - 40 U/L Final ALT Date Value Ref Range Status 12/16/2014 6 0 - 45 U/L Final Alkaline Phosphatase Date Value Ref Range Status 12/16/2014 46 40 - 150 U/L Final Bilirubin, Total Date Value Ref Range Status 12/16/2014 0.3 0.0 - 1.5 mg/dL Final Anion Gap Date Value Ref Range Status 12/16/2014 11 0 - 15 mmol/L Final TSH Date Value Ref Range Status 04/04/2014 2.880 0.400 - 5.500 uU/mL Final Vitamin B12 Date Value Ref Range Status 09/20/2014 403 221 - 700 pg/mL Final CRP Date Value Ref Range Status 04/04/2014 0.3 0.0 - 1.0 mg/dL Final Imaging: I reviewed images of CT myelogram and mri cervical spine from 2016 Other studies: Recent emg report 04/23 reviewed, report only, R > L CTS, no radiculopathy Assessment/Plan : Yara presents with 7-month history of right sided arm and chest wall pain. Her exam demonstrates mild weakness in the right C5/C6 muscle groups. She has complex history including multiple orthopedic surgeries, including 2 cervical spine fusion surgeries, most recently about 4 years ago. Review of her prior imaging of the cervical spine from (myelogram and MRI) demonstrates increased cervical cord signal in her MRI dating back to 2014 which would correlate with her hyperreflexia on exam. I suspect that her proximal right arm symptoms including pain and weakness are likely secondary to C5/C6 cervical radiculopathy, which was apparent even on prior images from 2014 and likely has worsened since then. I have ordered EMG to further evaluate for this. Additionally, she currently follows with pain management and is on chronic opiate therapy. More recently her PCP started her on gabapentin 100 mg twice daily. I will increase her gabapentin dose to 300 mg twice daily. RTC 3 months. documented in this encounter [facility] 01-09-2022 Miscellaneous Notes Called patient to schedule from referral. Patient not scheduling at this time because she is seeing someone else. May call back in the future to schedule with Dr. Cao at the [facility] documented in this encounter [facility] documented as of this encounter (statuses as of 01/09/2022) [facility] History of Past illness Narrative* Problem Noted Date Resolved Date Hemorrhoids 08/03/2013 09/20/2013 Last Assessment & Plan: Patient had her hemorrhoidectomy done and she feels a lot of pain relief. Pruritus ani 04/20/2013 09/20/2013 documented as of this encounter (statuses as of 02/07/2022) [facility] History of Past illness Narrative* Problem Noted Date Resolved Date Hemorrhoids 08/03/2013 09/20/2013 Last Assessment & Plan: Patient had her hemorrhoidectomy done and she feels a lot of pain relief. Pruritus ani 04/20/2013 09/20/2013 documented as of this encounter (statuses as of 02/28/2022) [facility] History of Past illness Narrative* Problem Noted Date Resolved Date Hemorrhoids 08/03/2013 09/20/2013 Last Assessment & Plan: Patient had her hemorrhoidectomy done and she feels a lot of pain relief. Pruritus ani 04/20/2013 09/20/2013 documented as of this encounter (statuses as of 02/28/2022) [facility] History of Past illness Narrative* Problem Noted Date Resolved Date Hemorrhoids 08/03/2013 09/20/2013 Last Assessment & Plan: Patient had her hemorrhoidectomy done and she feels a lot of pain relief. Pruritus ani 04/20/2013 09/20/2013 documented as of this encounter (statuses as of 03/04/2022) [facility] History of Past illness Narrative* Problem Noted Date Resolved Date Hemorrhoids 08/03/2013 09/20/2013 Last Assessment & Plan: Patient had her hemorrhoidectomy done and she feels a lot of pain relief. Pruritus ani 04/20/2013 09/20/2013 documented as of this encounter (statuses as of 03/13/2022) [place] [id number] History of Past illness Narrative* Problem Noted Date Resolved Date Hemorrhoids 08/03/2013 09/20/2013 Last Assessment & Plan: Patient had her hemorrhoidectomy done and she feels a lot of pain relief. Pruritus ani 04/20/2013 09/20/2013 documented as of this encounter (statuses as of 04/17/2022) [place] [id number] History of Past illness Narrative* Problem Noted Date Resolved Date Hemorrhoids 08/03/2013 09/20/2013 Last Assessment & Plan: Patient had her hemorrhoidectomy done and she feels a lot of pain relief. Pruritus ani 04/20/2013 09/20/2013 documented as of this encounter (statuses as of 06/01/2022) [facility] History of Past illness Narrative* Problem Noted Date Resolved Date Hemorrhoids 08/03/2013 09/20/2013 Last Assessment & Plan: Patient had her hemorrhoidectomy done and she feels a lot of pain relief. Pruritus ani 04/20/2013 09/20/2013 documented as of this encounter (statuses as of 06/01/2022) [facility] History of Past illness Narrative* Problem Noted Date Resolved Date Hemorrhoids 08/03/2013 09/20/2013 Last Assessment & Plan: Patient had her hemorrhoidectomy done and she feels a lot of pain relief. Pruritus ani 04/20/2013 09/20/2013 documented as of this encounter (statuses as of 06/04/2022) [facility] History of Past illness Narrative* Problem Noted Date Resolved Date Hemorrhoids 08/03/2013 09/20/2013 Last Assessment & Plan: Patient had her hemorrhoidectomy done and she feels a lot of pain relief. Pruritus ani 04/20/2013 09/20/2013 documented as of this encounter (statuses as of 06/24/2022) [facility] History of Past illness Narrative* Problem Noted Date Resolved Date Hemorrhoids 08/03/2013 09/20/2013 Last Assessment & Plan: Patient had her hemorrhoidectomy done and she feels a lot of pain relief. Pruritus ani 04/20/2013 09/20/2013 documented as of this encounter (statuses as of 06/25/2022) [facility] History of Past illness Narrative* Problem Noted Date Resolved Date Hemorrhoids 08/03/2013 09/20/2013 Last Assessment & Plan: Patient had her hemorrhoidectomy done and she feels a lot of pain relief. Pruritus ani 04/20/2013 09/20/2013 documented as of this encounter (statuses as of 07/23/2022) [facility] History of Past illness Narrative* Problem Noted Date Resolved Date Hemorrhoids 08/03/2013 09/20/2013 Last Assessment & Plan: Patient had her hemorrhoidectomy done and she feels a lot of pain relief. Pruritus ani 04/20/2013 09/20/2013 documented as of this encounter (statuses as of 08/05/2022) [facility] History of Past illness Narrative* Problem Noted Date Resolved Date Hemorrhoids 08/03/2013 09/20/2013 Last Assessment & Plan: Patient had her hemorrhoidectomy done and she feels a lot of pain relief. Pruritus ani 04/20/2013 09/20/2013 documented as of this encounter (statuses as of 08/15/2022) [facility] History of Past illness Narrative* Problem Noted Date Resolved Date Hemorrhoids 08/03/2013 09/20/2013 Last Assessment & Plan: Patient had her hemorrhoidectomy done and she feels a lot of pain relief. Pruritus ani 04/20/2013 09/20/2013 documented as of this encounter (statuses as of 08/28/2022) [facility] History of Past illness Narrative* Problem Noted Date Resolved Date Hemorrhoids 08/03/2013 09/20/2013 Last Assessment & Plan: Patient had her hemorrhoidectomy done and she feels a lot of pain relief. Pruritus ani 04/20/2013 09/20/2013 documented as of this encounter (statuses as of 09/10/2022) [place] [id number] History of Past illness Narrative* Problem Noted Date Resolved Date Hemorrhoids 08/03/2013 09/20/2013 Last Assessment & Plan: Patient had her hemorrhoidectomy done and she feels a lot of pain relief. Pruritus ani 04/20/2013 09/20/2013 documented as of this encounter (statuses as of 09/10/2022) [facility] History of Past illness Narrative* Problem Noted Date Resolved Date Hemorrhoids 08/03/2013 09/20/2013 Last Assessment & Plan: Patient had her hemorrhoidectomy done and she feels a lot of pain relief. Pruritus ani 04/20/2013 09/20/2013 documented as of this encounter (statuses as of 10/20/2022) [facility] History of Past illness Narrative* Problem Noted Date Resolved Date Hemorrhoids 08/03/2013 09/20/2013 Last Assessment & Plan: Patient had her hemorrhoidectomy done and she feels a lot of pain relief. Pruritus ani 04/20/2013 09/20/2013 documented as of this encounter (statuses as of 10/27/2022) [facility] History of Past illness Narrative* Problem Noted Date Diagnosed Date Resolved Date Hemorrhoids 08/03/2013 09/20/2013 Last Assessment & Plan: Patient had her hemorrhoidectomy done and she feels a lot of pain relief. Pruritus ani 04/20/2013 09/20/2013 documented as of this encounter (statuses as of 11/13/2022) [facility] History of Past illness Narrative* Problem Noted Date Diagnosed Date Resolved Date Hemorrhoids 08/03/2013 09/20/2013 Last Assessment & Plan: Patient had her hemorrhoidectomy done and she feels a lot of pain relief. Pruritus ani 04/20/2013 09/20/2013 documented as of this encounter (statuses as of 12/17/2022) [facility] History of Past illness Narrative* Problem Noted Date Diagnosed Date Resolved Date Hemorrhoids 08/03/2013 09/20/2013 Last Assessment & Plan: Patient had her hemorrhoidectomy done and she feels a lot of pain relief. Pruritus ani 04/20/2013 09/20/2013 documented as of this encounter (statuses as of 12/24/2022) [facility] History of Past illness Narrative* Problem Noted Date Diagnosed Date Resolved Date Hemorrhoids 08/03/2013 09/20/2013 Last Assessment & Plan: Patient had her hemorrhoidectomy done and she feels a lot of pain relief. Pruritus ani 04/20/2013 09/20/2013 documented as of this encounter (statuses as of 01/19/2023) [facility] History of Past illness Narrative* Problem Noted Date Diagnosed Date Resolved Date Hemorrhoids 08/03/2013 09/20/2013 Last Assessment & Plan: Patient had her hemorrhoidectomy done and she feels a lot of pain relief. Pruritus ani 04/20/2013 09/20/2013 documented as of this encounter (statuses as of 01/20/2023) [facility] History of Past illness Narrative* Problem Noted Date Diagnosed Date Resolved Date Hemorrhoids 08/03/2013 09/20/2013 Last Assessment & Plan: Patient had her hemorrhoidectomy done and she feels a lot of pain relief. Pruritus ani 04/20/2013 09/20/2013 documented as of this encounter (statuses as of 02/18/2023) [facility] History of Past illness Narrative* Problem Noted Date Diagnosed Date Resolved Date Hemorrhoids 08/03/2013 09/20/2013 Last Assessment & Plan: Patient had her hemorrhoidectomy done and she feels a lot of pain relief. Pruritus ani 04/20/2013 09/20/2013 documented as of this encounter (statuses as of 02/25/2023) [place] [address]-02-2014 History of Past illness Narrative* Problem Noted Date Diagnosed Date Resolved Date Hemorrhoids 08/03/2013 09/20/2013 Last Assessment & Plan: Patient had her hemorrhoidectomy done and she feels a lot of pain relief. Pruritus ani 04/20/2013 09/20/2013 documented as of this encounter (statuses as of 03/13/2023) [place] [address]-02-2014 History of Past illness Narrative* Problem Noted Date Diagnosed Date Resolved Date Hemorrhoids 08/03/2013 09/20/2013 Last Assessment & Plan: Patient had her hemorrhoidectomy done and she feels a lot of pain relief. Pruritus ani 04/20/2013 09/20/2013 documented as of this encounter (statuses as of 03/14/2023) [facility] History of Past illness Narrative* Problem Noted Date Diagnosed Date Resolved Date Hemorrhoids 08/03/2013 09/20/2013 Last Assessment & Plan: Patient had her hemorrhoidectomy done and she feels a lot of pain relief. Pruritus ani 04/20/2013 09/20/2013 documented as of this encounter (statuses as of 03/14/2023) [facility] History of Past illness Narrative* Problem Noted Date Diagnosed Date Resolved Date Hemorrhoids 08/03/2013 09/20/2013 Last Assessment & Plan: Patient had her hemorrhoidectomy done and she feels a lot of pain relief. Pruritus ani 04/20/2013 09/20/2013 documented as of this encounter (statuses as of 03/23/2023) [facility] History of Past illness Narrative* Problem Noted Date Diagnosed Date Resolved Date Hemorrhoids 08/03/2013 09/20/2013 Last Assessment & Plan: Patient had her hemorrhoidectomy done and she feels a lot of pain relief. Pruritus ani 04/20/2013 09/20/2013 documented as of this encounter (statuses as of 03/24/2023) [facility] History of Past illness Narrative* Problem Noted Date Diagnosed Date Resolved Date Hemorrhoids 08/03/2013 09/20/2013 Last Assessment & Plan: Patient had her hemorrhoidectomy done and she feels a lot of pain relief. Pruritus ani 04/20/2013 09/20/2013 documented as of this encounter (statuses as of 03/24/2023) [facility] History of Past illness Narrative* Problem Noted Date Diagnosed Date Resolved Date Hemorrhoids 08/03/2013 09/20/2013 Last Assessment & Plan: Patient had her hemorrhoidectomy done and she feels a lot of pain relief. Pruritus ani 04/20/2013 09/20/2013 documented as of this encounter (statuses as of 04/23/2023) [facility] Radiculopathy, cervical region- Primary Brachial neuritis or radiculitis nos [facility] Diagnosis Carpal tunnel syndrome, right upper limb- Primary Radiculopathy, cervical region Brachial neuritis or radiculitis nos [facility] Diagnosis Cervicalgia- Primary Arthrodesis status Adverse effect of treatment, initial encounter [facility] Diagnosis Arthrodesis status Adverse effect of treatment, initial encounter [facility] Diagnosis Cervicalgia Arthrodesis status Adverse effect of treatment, initial encounter [facility] Diagnosis 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) Arthrodesis status Adverse effect of treatment, initial encounter Closed stable burst fracture of third thoracic vertebra with routine healing, subsequent encounter [facility]* Diagnosis Age-related osteoporosis with current pathological fracture with routine healing, subsequent encounter- Primary 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) Arthrodesis status Adverse effect of treatment, initial encounter Closed stable burst fracture of third thoracic vertebra with routine healing, subsequent encounter Age-related osteoporosis with current pathological fracture, vertebra(e), initial encounter for fracture (HCC) [facility] Diagnosis Vitamin D deficiency- Primary Unspecified vitamin D deficiency Age-related osteoporosis with current pathological fracture with routine healing, subsequent encounter Disorder of bone density and structure, unspecified Abnormal findings on diagnostic imaging of other specified body structures [facility] Diagnosis Abnormal SPEP- Primary Other nonspecific findings on examination of blood Age-related osteoporosis with current pathological fracture with routine healing, subsequent encounter [facility]* Diagnosis 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- Primary Age-related osteoporosis with current pathological fracture with routine healing, subsequent encounter Abnormal SPEP Other nonspecific findings on examination of blood [facility]* Diagnosis Age-related osteoporosis with current pathological fracture with routine healing, subsequent encounter- Primary [facility]* Diagnosis Age-related osteoporosis with current pathological fracture with routine healing, subsequent encounter- Primary Other specified disorders of bone density and structure, unspecified site Localized osteoporosis ([place]) Hyperparathyroidism (HCC) Hyperparathyroidism, unspecified [facility] Diagnosis Closed stable burst fracture of third thoracic vertebra with routine healing, subsequent encounter- Primary [facility]* Diagnosis Age-related osteoporosis with current pathological fracture with routine healing, subsequent encounter- Primary [facility]* Diagnosis Age-related osteoporosis with current pathological fracture with routine healing, subsequent encounter- Primary [facility] Diagnosis Closed stable burst fracture of third thoracic vertebra with routine healing, subsequent encounter- Primary Spinal stenosis of cervical region Spinal stenosis in cervical region Arthrodesis status [facility]* Diagnosis Age-related osteoporosis with current pathological fracture with routine healing, subsequent encounter- Primary documented in this encounter [facility]* Diagnosis 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- Primary documented in this encounter [facility] note* Diagnosis 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 documented in this encounter [facility] note* Diagnosis Closed stable burst fracture of third thoracic vertebra with routine healing, subsequent encounter- Primary documented in this encounter [facility] note* Diagnosis 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- Primary documented in this encounter [facility] for referral (narrative)* Outpatient Procedure (Routine) - Pending Review Specialty Diagnoses / Procedures Referred By Sophia t Referred To Contact [facility] Diagnoses Radiculopathy, cervical region Procedures EMG(NEURO/NI) NERVE CONDUCTION STUDIES 9-10 STUDIES Mayur Cao MD [address] [facility] [address] [place] [address] [facility] [place] [address] [place] [address] Referral ID Status Reason Start Date Expiration Date Visits Requested Visits Authorized [id number] Pending Review Auto-Generat ed Referral 02/07/2022 02/07/2023 1 1 [facility] for referral (narrative)* Diagnostic Procedure Only (Routine) - Closed Specialty Diagnoses / Procedures Referred By Sophia t Referred To Contact XR IMAGING Diagnoses Cervicalgia Arthrodesis status Adverse effect of treatment, initial encounter Procedures XR CERV GENERAL 2V AP/LAT RADEX SPINE CERVICAL 2 OR 3 VIEWS Adrián Pulido PA-C [address] [place] [address] Xr Imaging Referral ID Status Reason Start Date Expiration Date V isits Requested Visits Authorized [id number] Closed Auto-Generate d Referral 04/17/2022 05/17/2023 1 1 * MRI/CT (Routine) - Authorized Specialty Diagnoses / Procedures Referred By Contac t Referred To Contact MR IMAGING Diagnoses Arthrodesis status Adverse effect of treatment, initial encounter Procedures MRI THORACIC SPINE WO/W IVCON MRI SPINAL CANAL THORACIC W/O & W/CONTR Adrián Nolasco PA-C [address] [place] [address] Mr Imaging Referral ID Status Reason Start Date Expiration Date Visits Requested Visits Authorized [id number] Authorized Auto-Generat ed Referral 2 05/17/2023 1 1 * MRI/CT (Routine) - Authorized Specialty Diagnoses / Procedures Referred By Contac t Referred To Contact MR IMAGING Diagnoses Cervicalgia Arthrodesis status Adverse effect of treatment, initial encounter Procedures MRI CERVICAL SPINE WO/W IVCON MRI SPINAL CANAL CERVICAL W/O & W/CONTR Adrián Nolasco PA-C [address] [place] [address] Mr Imaging Referral ID Status Reason Start Date Expiration Date Visits Requested Visits Authorized [id number] Authorized Auto-Generat ed Referral 2 05/17/2023 1 1 * - Authorized Specialty Diagnoses / Procedures Referred By Contac t Referred To Contact Diagnoses Cervicalgia Arthrodesis status Adverse effect of treatment, initial encounter Procedures CONSULT TO PHYSICAL THERAPY Adrián Pulido PA-C [address] [place] [address] Referral ID Status Reason Start Date Expiration Date V isits Requested Visits Authorized [id number] Authorized 04/17/2022 07/16/2022 99 99 * Diagnostic Procedure Only (Routine) - Closed Specialty Diagnoses / Procedures Referred By Contac t Referred To Contact XR IMAGING Diagnoses Cervicalgia Arthrodesis status Adverse effect of treatment, initial encounter Procedures XR CERV OTHER 4V AP/LAT/FLX/EXT RADEX SPINE CERVICAL 4 OR 5 VIEWS Adrián Pulido PA-C [address] [place] [address] Xr Imaging Referral ID Status Reason Start Date Expiration Date V isits Requested Visits Authorized [id number] Closed Auto-Generate d Referral 04/17/2022 05/17/2023 1 1 [facility] for referral (narrative)* Diagnostic Procedure Only (Routine) - Pending Review Specialty Diagnoses / Procedures Referred By Contac t Referred To Contact XR IMAGING Diagnoses Age-related osteoporosis with current pathological fracture with routine healing, subsequent encounter Procedures XR LUMBAR GENERAL 3V AP/LAT/L5-S1 RADEX SPINE LUMBOSACRAL 2/3 VIEWS Leslie Hackett MD [address] [place] [address] Xr Imaging Referral ID Status Reason Start Date Expiration Date Visits Requested Visits Authorized [id number] Pending Review Auto-Generat ed Referral 07/23/2022 08/22/2023 1 1 [facility] for referral (narrative)* Diagnostic Procedure Only (Routine) - Pending Review Specialty Diagnoses / Procedures Referred By Contac t Referred To Contact XR IMAGING Diagnoses Age-related osteoporosis with current pathological fracture with routine healing, subsequent encounter Other specified disorders of bone density and structure, unspecified site Procedures DXA-FOREARM SKELETON DXA BONE DENSITY STUDY 1/>SITES APPENDICLR Leslie Martini MD [address] [place] [address] Xr Imaging Referral ID Status Reason Start Date Expiration Date Visits Requested Visits Authorized [id number] Pending Review Auto-Generat ed Referral 10/17/2022 10/10/2023 1 1 [facility] for referral (narrative)* Diagnostic Procedure Only (Routine) - Closed Specialty Diagnoses / Procedures Referred By Contac t Referred To Contact XR IMAGING Diagnoses Closed stable burst fracture of third thoracic vertebra with routine healing, subsequent encounter Procedures XR SHOULDER LIMITED 2V AP/TRUE AP LEFT RADEX SHOULDER COMPLETE MINIMUM 2 VIEWS [place], [place] [address] [place] [address] Xr Imaging Referral ID Status Reason Start Date Expiration Date V isits Requested Visits Authorized [id number] Closed Auto-Generate d Referral 10/20/2022 11/19/2023 1 1 * Medication Prior Authorization - Authorized Specialty Diagnoses / Procedures Referred By Contac [place] [address] [place] [address] Referral ID Status Reason Start Date Expiration Date V isits Requested Visits Authorized [id number] Authorized 09/20/2022 10/20/2023 1 1 [facility] Instructions Instruction Description Start Date Completed Advance Directives There may be information available, but it has not been provided by the sender. No Advanced Directives Records FoundNo Advanced Directives Records FoundNo Advanced Directives Records FoundNo Advanced Directives Records FoundNo Advanced Directives Records FoundNo Advanced Directives Records Found Assessments There may be information available, but it has not been provided by the sender. Review of System There may be information available, but it has not been provided by the sender. Family History There may be information available, but it has not been provided by the sender.No Family History Records FoundNo Family History Records FoundNo Family History Records FoundNo Family History Records FoundNo Family History Records FoundNo Family History Records Found Summary Purpose Reason for Referral Specialty Diagnoses / Procedures Referred By Contac t Referred To Contact MR IMAGING Diagnoses Arthrodesis status Adverse effect of treatment, initial encounter Procedures MRI THORACIC SPINE WO/W IVCON MRI SPINAL CANAL THORACIC W/O & W/CONTR RANDYL Adrián Pulido PA-C [address] [place] [address] Mr Imaging Referral ID Status Reason Start Date Expiration Date V isits Requested Visits Authorized [id number] Closed Auto-Generate d Referral 04/17/2022 05/17/2023 1 1 Specialty Diagnoses / Procedures Referred By Contac t Referred To Contact MR IMAGING Diagnoses Cervicalgia Arthrodesis status Adverse effect of treatment, initial encounter Procedures MRI CERVICAL SPINE WO/W IVCON MRI SPINAL CANAL CERVICAL W/O & W/CONTR MATRL Adrián Pulido PA-C [address] [place] [address] Mr Imaging Referral ID Status Reason Start Date Expiration Date V isits Requested Visits Authorized [id number] Closed Auto-Generate d Referral 04/17/2022 05/17/2023 1 1 Specialty Diagnoses / Procedures Referred By Contac t Referred To Contact Neurosurgery Diagnoses Fusion of spine of cervicothoracic region Arthrodesis status Adverse effect of treatment, initial encounter Closed stable burst fracture of third thoracic vertebra with routine healing, subsequent encounter Procedures CONSULT TO NEUROSURGERY OFFICE/OUTPATIENT [facility] 60-74 MINUTES Adrián Pulido PA-C [address] [place] [address] Referral ID Status Reason Start Date Expiration Date Visits Requested Visits Authorized [id number] Authorized PCP Requested Referral 06/04/2022 09/02/2022 1 1 Specialty Diagnoses / Procedures Referred By Contac t Referred To Contact Diagnoses Age-related osteoporosis with current pathological fracture with routine healing, subsequent encounter Procedures CONSULT TO ENDO METABOLIC BONE OFFICE/OUTPATIENT [facility] 60-[place] [address] [place] [address] Referral ID Status Reason Start Date Expiration Date Visits Requested Visits Authorized [id number] Authorized PCP Requested Referral 06/23/2022 06/23/2023 1 1 Specialty Diagnoses / Procedures Referred By Contac t Referred To Contact Diagnoses Age-related osteoporosis with current pathological fracture with routine healing, subsequent encounter Abnormal SPEP Procedures CONSULT TO HEMATOLOGY/ONCOLOGY OFFICE/OUTPATIENT [facility] 60-74 MINUTES Leslei Hackett MD [address] [place] [address] Referral ID Status Reason Start Date Expiration Date Visits Requested Visits Authorized [id number] Authorized PCP Requested Referral 08/05/2022 08/05/2023 1 1 Specialty Diagnoses / Procedures Referred By Contac t Referred To Contact CT IMAGING Diagnoses Arthrodesis status Procedures CT THORACIC SPINE WO IVCON CT THORACIC SPINE W/[place] [address] [facility] [place] [address] [place] [address] Referral ID Status Reason Start Date Expiration Date Visits Requested Visits Authorized [id number] Authorized Auto-Generat ed Referral 01/19/2023 02/18/2024 1 1 Specialty Diagnoses / Procedures Referred By Contac t Referred To Contact CT IMAGING Diagnoses Spinal stenosis of cervical region Procedures CT CERVICAL SPINE WO IVCON CT CERVICAL SPINE W/[place] [address] [facility] [place] [address] Ct Imaging [place] [address] Referral ID Status Reason Start Date Expiration Date Visits Requested Visits Authorized [id number] Authorized Auto-Generat ed Referral 01/19/2023 02/18/2024 1 1 Specialty Diagnoses / Procedures Referred By Contac t Referred To Contact CT IMAGING Diagnoses 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 Procedures CT CHEST W IVCON DIAGNOSTIC COMPUTED TOMOGRAPHY THORAX W/[place] [id number] Imaging [facility] Referral ID Status Reason Start Date Expiration Date Visits Requested Visits Authorized [id number] Authorized Auto-Generat ed Referral 3 03/26/2024 1 1 Specialty Diagnoses / Procedures Referred By Contac t Referred To Contact CT IMAGING Diagnoses 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 Procedures CT ABD/PEL W IVCON CT ABD & PEL[place] W/[place] [id number] Imaging [facility] Referral ID Status Reason Start Date Expiration Date Visits Requested Visits Authorized [id number] Authorized Auto-Generat ed Referral 3 03/26/2024 1 1 Medications Administered Section Active Administered Medications - up to 3 most recent administrations Medication Order MAR Action Action Date Dose Rate Site romosozumab-aqqg 210 mg injection (EVENITY) 210 mg, SUBCUTANEOUS, EVERY 1 MONTH, 13 doses, First dose on Thu09/10/22 at 1130, Last dose on Thu09/05/23 at 1130, Allow to sit for 30 minutes to reach room temperature before injection. Total dose is 2 syringes (210 mg total) injection into abdomen, thigh, or upper arm. Given 09/10/2022 11:43 AM EDT 210 mg Arm, Left Active Administered Medications - up to 3 most recent administrations Medication Order MAR Action Action Date Dose Rate Site romosozumab-aqqg 210 mg injection (EVENITY) 210 mg, SUBCUTANEOUS, EVERY 1 MONTH, 13 doses, First dose on Thu09/10/22 at 1130, Last dose on Thu09/05/23 at 1130, Allow to sit for 30 minutes to reach room temperature before injection. Total dose is 2 syringes (210 mg total) injection into abdomen, thigh, or upper arm. Given 11/13/2022 11:27 AM EDT 210 mg Arm, Right Active Administered Medications - up to 3 most recent administrations Medication Order MAR Action Action Date Dose Rate Site romosozumab-aqqg 210 mg injection (EVENITY) 210 mg, SUBCUTANEOUS, EVERY 1 MONTH, 13 doses, First dose on Thu09/10/22 at 1130, Last dose on Thu09/05/23 at 1130, Allow to sit for 30 minutes to reach room temperature before injection. Total dose is 2 syringes (210 mg total) injection into abdomen, thigh, or upper arm. Given 01/19/2023 10:20 AM EDT 210 mg Arm, Right Active Administered Medications - up to 3 most recent administrations Medication Order MAR Action Action Date Dose Rate Site romosozumab-aqqg 210 mg injection (EVENITY) 210 mg, SUBCUTANEOUS, EVERY 1 MONTH, 13 doses, First dose on Thu09/10/22 at 1130, Last dose on Thu09/05/23 at 1130, Allow to sit for 30 minutes to reach room temperature before injection. Total dose is 2 syringes (210 mg total) injection into abdomen, thigh, or upper arm. Given 02/18/2023 10:24 AM EDT 210 mg Arm, Right Active Administered Medications - up to 3 most recent administrations Medication Order MAR Action Action Date Dose Rate Site romosozumab-aqqg 210 mg injection (EVENITY) 210 mg, SUBCUTANEOUS, EVERY 1 MONTH, 13 doses, First dose on Thu09/10/22 at 1130, Last dose on 09/05/23 at 1130, Allow to sit for 30 minutes to reach room temperature before injection. Total dose is 2 syringes (210 mg total) injection into abdomen, thigh, or upper arm. Given 03/23/2023 10:14 AM EST 210 mg Arm, Right Active Administered Medications - up to 3 most recent administrations Medication Order MAR Action Action Date Dose Rate Site romosozumab-aqqg 210 mg injection (EVENITY) 210 mg, SUBCUTANEOUS, EVERY 1 MONTH, 13 doses, First dose on Thu09/10/22 at 1130, Last dose on 09/05/23 at 1130, Allow to sit for 30 minutes to reach room temperature before injection. Total dose is 2 syringes (210 mg total) injection into abdomen, thigh, or upper arm. Given 04/22/2023 10:40 AM EST 210 mg Arm, Right Additional Source Comments INFORMATION SOURCE (unrecogn ized section and content) DATE CREATED AUTHOR AUTHOR'S ORGANIZ ATION 05/31/2022 [facility] DATE CREATED AUTHOR AUTHOR'S ORGANIZ ATION 10/25/2022 [facility] DATE CREATED AUTHOR AUTHOR'S ORGANIZ ATION 10/27/2022 [facility] DATE CREATED AUTHOR AUTHOR'S ORGANIZ ATION 12/03/[address] [facility] DATE CREATED AUTHOR AUTHOR'S ORGANIZ ATION 04/23/2023 [facility] Source Comments (unrecognize d section and content) In the event this informatio n is protected by the Federal Confidentiality of Alcohol and Drug Abuse Patient Records regulations: The Federal rules restrict any use of the information to criminally investigate or prosecute any alcohol or drug abuse patient.[facility] the event this information is protected by the Federal Confidentiality of Alcohol and Drug Abuse Patient Records regulations: The Federal rules restrict any use of the information to criminally investigate or prosecute any alcohol or drug abuse patient.[facility] HospitalIn the event this information is protected by the Federal Confidentiality of Alcohol and Drug Abuse Patient Records regulations: The Federal rules restrict any use of the information to criminally investigate or prosecute any alcohol or drug abuse patient.[facility] HospitalIn the event this information is protected by the Federal Confidentiality of Alcohol and Drug Abuse Patient Records regulations: The Federal rules restrict any use of the information to criminally investigate or prosecute any alcohol or drug abuse patient.[facility] HospitalIn the event this information is protected by the Federal Confidentiality of Alcohol and Drug Abuse Patient Records regulations: The Federal rules restrict any use of the information to criminally investigate or prosecute any alcohol or drug abuse patient.[facility] HospitalIn the event this information is protected by the Federal Confidentiality of Alcohol and Drug Abuse Patient Records regulations: The Federal rules restrict any use of the information to criminally investigate or prosecute any alcohol or drug abuse patient.[facility] HospitalIn the event this information is protected by the Federal Confidentiality of Alcohol and Drug Abuse Patient Records regulations: The Federal rules restrict any use of the information to criminally investigate or prosecute any alcohol or drug abuse patient.[facility] HospitalIn the event this information is protected by the Federal Confidentiality of Alcohol and Drug Abuse Patient Records regulations: The Federal rules restrict any use of the information to criminally investigate or prosecute any alcohol or drug abuse patient.[facility] HospitalIn the event this information is protected by the Federal Confidentiality of Alcohol and Drug Abuse Patient Records regulations: The Federal rules restrict any use of the information to criminally investigate or prosecute any alcohol or drug abuse patient.[facility] HospitalIn the event this information is protected by the Federal Confidentiality of Alcohol and Drug Abuse Patient Records regulations: The Federal rules restrict any use of the information to criminally investigate or prosecute any alcohol or drug abuse patient.[facility] HospitalIn the event this information is protected by the Federal Confidentiality of Alcohol and Drug Abuse Patient Records regulations: The Federal rules restrict any use of the information to criminally investigate or prosecute any alcohol or drug abuse patient.[facility] HospitalIn the event this information is protected by the Federal Confidentiality of Alcohol and Drug Abuse Patient Records regulations: The Federal rules restrict any use of the information to criminally investigate or prosecute any alcohol or drug abuse patient.[facility] HospitalIn the event this information is protected by the Federal Confidentiality of Alcohol and Drug Abuse Patient Records regulations: The Federal rules restrict any use of the information to criminally investigate or prosecute any alcohol or drug abuse patient.[facility] HospitalIn the event this information is protected by the Federal Confidentiality of Alcohol and Drug Abuse Patient Records regulations: The Federal rules restrict any use of the information to criminally investigate or prosecute any alcohol or drug abuse patient.[facility] HospitalIn the event this information is protected by the Federal Confidentiality of Alcohol and Drug Abuse Patient Records regulations: The Federal rules restrict any use of the information to criminally investigate or prosecute any alcohol or drug abuse patient.[facility] HospitalIn the event this information is protected by the Federal Confidentiality of Alcohol and Drug Abuse Patient Records regulations: The Federal rules restrict any use of the information to criminally investigate or prosecute any alcohol or drug abuse patient.[facility] HospitalIn the event this information is protected by the Federal Confidentiality of Alcohol and Drug Abuse Patient Records regulations: The Federal rules restrict any use of the information to criminally investigate or prosecute any alcohol or drug abuse patient.[facility] HospitalIn the event this information is protected by the Federal Confidentiality of Alcohol and Drug Abuse Patient Records regulations: The Federal rules restrict any use of the information to criminally investigate or prosecute any alcohol or drug abuse patient.[facility] HospitalIn the event this information is protected by the Federal Confidentiality of Alcohol and Drug Abuse Patient Records regulations: The Federal rules restrict any use of the information to criminally investigate or prosecute any alcohol or drug abuse patient.[facility] HospitalIn the event this information is protected by the Federal Confidentiality of Alcohol and Drug Abuse Patient Records regulations: The Federal rules restrict any use of the information to criminally investigate or prosecute any alcohol or drug abuse patient.[facility] HospitalIn the event this information is protected by the Federal Confidentiality of Alcohol and Drug Abuse Patient Records regulations: The Federal rules restrict any use of the information to criminally investigate or prosecute any alcohol or drug abuse patient.[facility] HospitalIn the event this information is protected by the Federal Confidentiality of Alcohol and Drug Abuse Patient Records regulations: The Federal rules restrict any use of the information to criminally investigate or prosecute any alcohol or drug abuse patient.[facility] HospitalIn the event this information is protected by the Federal Confidentiality of Alcohol and Drug Abuse Patient Records regulations: The Federal rules restrict any use of the information to criminally investigate or prosecute any alcohol or drug abuse patient.[facility] HospitalIn the event this information is protected by the Federal Confidentiality of Alcohol and Drug Abuse Patient Records regulations: The Federal rules restrict any use of the information to criminally investigate or prosecute any alcohol or drug abuse patient.[facility] HospitalIn the event this information is protected by the Federal Confidentiality of Alcohol and Drug Abuse Patient Records regulations: The Federal rules restrict any use of the information to criminally investigate or prosecute any alcohol or drug abuse patient.[facility] HospitalIn the event this information is protected by the Federal Confidentiality of Alcohol and Drug Abuse Patient Records regulations: The Federal rules restrict any use of the information to criminally investigate or prosecute any alcohol or drug abuse patient.[facility] HospitalIn the event this information is protected by the Federal Confidentiality of Alcohol and Drug Abuse Patient Records regulations: The Federal rules restrict any use of the information to criminally investigate or prosecute any alcohol or drug abuse patient.[facility] HospitalIn the event this information is protected by the Federal Confidentiality of Alcohol and Drug Abuse Patient Records regulations: The Federal rules restrict any use of the information to criminally investigate or prosecute any alcohol or drug abuse patient.[facility] HospitalIn the event this information is protected by the Federal Confidentiality of Alcohol and Drug Abuse Patient Records regulations: The Federal rules restrict any use of the information to criminally investigate or prosecute any alcohol or drug abuse patient.[facility] HospitalIn the event this information is protected by the Federal Confidentiality of Alcohol and Drug Abuse Patient Records regulations: The Federal rules restrict any use of the information to criminally investigate or prosecute any alcohol or drug abuse patient.[facility] HospitalIn the event this information is protected by the Federal Confidentiality of Alcohol and Drug Abuse Patient Records regulations: The Federal rules restrict any use of the information to criminally investigate or prosecute any alcohol or drug abuse patient.[facility] HospitalIn the event this information is protected by the Federal Confidentiality of Alcohol and Drug Abuse Patient Records regulations: The Federal rules restrict any use of the information to criminally investigate or prosecute any alcohol or drug abuse patient.[facility] HospitalIn the event this information is protected by the Federal Confidentiality of Alcohol and Drug Abuse Patient Records regulations: The Federal rules restrict any use of the information to criminally investigate or prosecute any alcohol or drug abuse patient.[facility] HospitalIn the event this information is protected by the Federal Confidentiality of Alcohol and Drug Abuse Patient Records regulations: The Federal rules restrict any use of the information to criminally investigate or prosecute any alcohol or drug abuse patient.[facility] Reason for Visit (unrecogniz ed section and content) Reason Comments Neurologic Problem Burning feeling down entire right side of body, PCP called it neuropathy. Does have nerve problems with previous surgeries. Reason Onset Date Comments EMG 02/28/2022 Specialty Diagnoses / Procedures Referred By Sophia leonardo Referred To Contact [facility] Diagnoses Radiculopathy, cervical region Procedures [facility](NEURO/NI) NERVE CONDUCTION STUDIES 9-10 STUDIES Mayur Cao MD [address] [place] [address] Neurological [place] [address] [place] [address] Referral ID Status Reason Start Date Expiration Date V isits Requested Visits Authorized [id number] Closed Auto-Generate d Referral 02/07/2022 02/07/2023 1 1 Reason Comments [facility] Surgery clearance Reason Comments Medication Problem Reason Comments New Patient Neck Pain Specialty Diagnoses / Procedures Referred By Contac t Referred To Contact MR IMAGING Diagnoses Arthrodesis status Adverse effect of treatment, initial encounter Procedures MRI THORACIC SPINE WO/W IVCON MRI SPINAL CANAL THORACIC W/O & W/CONTR Adrián Nolasco PA-C [address] [place] [address] Mr Imaging Referral ID Status Reason Start Date Expiration Date V isits Requested Visits Authorized [id number] Closed Auto-Generate d Referral 04/17/2022 05/17/2023 1 1 Specialty Diagnoses / Procedures Referred By Contac t Referred To Contact MR IMAGING Diagnoses Cervicalgia Arthrodesis status Adverse effect of treatment, initial encounter Procedures MRI CERVICAL SPINE WO/W IVCON MRI SPINAL CANAL CERVICAL W/O & W/CONTR Adrián Nolasco, MARK [address] [place] [address] Mr Imaging Referral ID Status Reason Start Date Expiration Date V isits Requested Visits Authorized [id number] Closed Auto-Generate d Referral 04/17/2022 05/17/2023 1 1 Reason Comments Follow Up Neck Pain Reason Comments New Patient Evaluation Specialty Diagnoses / Procedures Referred By Contac t Referred To Contact Neurosurgery Diagnoses Fusion of spine of cervicothoracic region Arthrodesis status Adverse effect of treatment, initial encounter Closed stable burst fracture of third thoracic vertebra with routine healing, subsequent encounter Procedures CONSULT TO NEUROSURGERY OFFICE/OUTPATIENT NEW HIGH MDM 60-74 MINUTES Adrián Pulido PA-C [address] [place] [address] Referral ID Status Reason Start Date Expiration Date V isits Requested Visits Authorized [id number] Closed PCP Requested Referral 06/04/2022 09/02/2022 1 1 Reason Comments Consult Specialty Diagnoses / Procedures Referred By Contac t Referred To Contact Diagnoses Age-related osteoporosis with current pathological fracture with routine healing, subsequent encounter Procedures CONSULT TO ENDO METABOLIC BONE OFFICE/OUTPATIENT NEW HIGH MDM 60-[place] [address] [place] [address] Referral ID Status Reason Start Date Expiration Date V isits Requested Visits Authorized [id number] Closed PCP Requested Referral 06/23/2022 06/23/2023 1 1 Reason Comments Results Specialty Diagnoses / Procedures Referred By Contac t Referred To Contact Diagnoses Age-related osteoporosis with current pathological fracture with routine healing, subsequent encounter Abnormal SPEP Procedures CONSULT TO HEMATOLOGY/ONCOLOGY OFFICE/OUTPATIENT [facility] HIGH MDM 60-74 MINUTES Leslie Hackett MD [address] [place] [address] Referral ID Status Reason Start Date Expiration Date V isits Requested Visits Authorized [id number] Closed PCP Requested Referral 08/05/2022 08/05/2023 1 1 Reason Comments Evenity Injection #1 of 12 Reason Comments Follow Up Reason Comments Xray Results Reason Comments Evenity Injection Reason Comments Follow Up Reason Comments EVENITY INJECTION #5 OF 12 Reason Comments Established Patient Specialty Diagnoses / Procedures Referred By Contac t Referred To Contact CT IMAGING Diagnoses 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 Procedures CT CHEST W IVCON DIAGNOSTIC COMPUTED TOMOGRAPHY THORAX W/[place] [address] [place] [address] Ct Imaging [place] [address] Referral ID Status Reason Start Date Expiration Date V isits Requested Visits Authorized [id number] Closed Auto-Generate d Referral 02/25/2023 03/26/2024 [address] Specialty Diagnoses / Procedures Referred By Contac t Referred To Contact CT IMAGING Diagnoses 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 Procedures CT CHEST W IVCON DIAGNOSTIC COMPUTED TOMOGRAPHY THORAX W/[place] [address] [place] [id number] Imaging [facility] Reason Comments Closed stable burst frature of third tho racic vertebra with Reason Comments Established Patient Care Teams (unrecognized sec tion and content) Mail Handler Sorter Relationship Specialty Start Date End Date Francicso Ferrari MD [address] [place] [address] PCP - General Family Medicine 05/31/19 Mail Handler Sorter Relationship Specialty Start Date End Date Ferrari, Francisco K, MD [address] [place] [address] PCP - General Family Medicine 05/31/19 Mail Handler Sorter Relationship Specialty Start Date End Date Francisco Ferrari MD [address] [place] [address] PCP - General Family Medicine 05/31/19 Mail Handler Sorter Relationship Specialty Start Date End Date Francisco Ferrari MD [address] [place] [address] PCP - General Family Medicine 05/31/19 Mail Handler Sorter Relationship Specialty Start Date End Date Francisco Ferrari MD [address] [place] [address] PCP - General Family Medicine 05/31/19 Mail Handler Sorter Relationship Specialty Start Date End Date Francisco Ferrari MD [address] [place] [address] PCP - General Family Medicine 05/31/19 Mail Handler Sorter Relationship Specialty Start Date End Date Francisco Ferrari MD [address] [place] [address] PCP - General Family Medicine 05/31/19 Mail Handler Sorter Relationship Specialty Start Date End Date Francisco Ferrari MD [address] [place] [address] PCP - General Family Medicine 05/31/19 Mail Handler Sorter Relationship Specialty Start Date End Date Mike Hopper DO [address] [place] [address] PCP - General Family Medicine 06/24/22 Mail Handler Sorter Relationship Specialty Start Date End Date Mike Hopper DO [address] [place] [address] PCP - General Family Medicine 06/24/22 Mail Handler Sorter Relationship Specialty Start Date End Date Mike Hopper, DO [address] [place] [address] PCP - General Family Medicine 06/24/22 Mail Handler Sorter Relationship Specialty Start Date End Date Mike Hopper, DO [address] [place] [address] PCP - General Family Medicine 06/24/22 Mail Handler Sorter Relationship Specialty Start Date End Date Mike Hopper, DO [address] [place] [address] PCP - General Family Medicine 06/24/22 Mail Handler Sorter Relationship Specialty Start Date End Date Mike Hopper, DO [address] [place] [address] PCP - General Family Medicine 06/24/22 Mail Handler Sorter Relationship Specialty Start Date End Date Mike Hopper, DO [address] [place] [address] PCP - General Family Medicine 06/24/22 Mail Handler Sorter Relationship Specialty Start Date End Date Mike Hopper, DO [address] [place] [address] PCP - General Family Medicine 06/24/22 Mail Handler Sorter Relationship Specialty Start Date End Date Mike Hopper, DO [address] [place] [address] PCP - General Family Medicine 06/24/22 Mail Handler Sorter Relationship Specialty Start Date End Date Mike Hopper, DO [address] [place] [address] PCP - General Family Medicine 06/24/22 Mail Handler Sorter Relationship Specialty Start Date End Date Mike Hopper DO [address] [place] [address] PCP - General Family Medicine 06/24/22 Mail Handler Sorter Relationship Specialty Start Date End Date Mike Hopper DO [address] [place] [address] PCP - General Family Medicine 06/24/22 Mail Handler Sorter Relationship Specialty Start Date End Date Mike Hopper DO [address] [place] [address] PCP - General Family Medicine 06/24/22 Mail Handler Sorter Relationship Specialty Start Date End Date Mike Hopper DO [address] [place] [address] PCP - General Family Medicine 06/24/22 Mail Handler Sorter Relationship Specialty Start Date End Date Mike Hopper DO [address] [place] [address] PCP - General Family Medicine 06/24/22 Mail Handler Sorter Relationship Specialty Start Date End Date Mike Hopper DO [address] [place] [address] PCP - General Family Medicine 06/24/22 Wisam Mills MD [address] [place] [address] Hematology/Oncology 02/25/23 Mail Handler Sorter Relationship Specialty Start Date End Date Mike Hopper DO [address] [place] [address] PCP - General Family Medicine 06/24/22 Wisam Mills MD [address] [place] [address] Hematology/Oncology 02/25/23 Mail Handler Sorter Relationship Specialty Start Date End Date Mike Hopper DO [address] [place] [address] PCP - General Family Medicine 06/24/22 Wisam Mills MD [address] [place] [address] Hematology/Oncology 02/25/23 Mail Handler Sorter Relationship Specialty Start Date End Date Mike Hopper DO [address] [place] [address] PCP - General Family Medicine 06/24/22 Wisam Mills MD [address] [place] [address] Hematology/Oncology 02/25/23 Mail Handler Sorter Relationship Specialty Start Date End Date Mike Hopper DO [address] [place] [address] PCP - General Family Medicine 06/24/22 Wisam Mills MD [address] [place] [address] Hematology/Oncology 02/25/23 Mail Handler Sorter Relationship Specialty Start Date End Date Mike Hopper DO [address] [facility] [address] [place], [place] [address] PCP - General Family Medicine 06/24/22 Wisam Mills MD [address] [place], [place] [address] Hematology/Oncology 02/25/23 Mail Handler Sorter Relationship Specialty Start Date End Date Mike Hopper DO [address] [facility] [address] [place], [place] [address] PCP - [facility] Family Medicine 06/24/22 Wisam Mills MD [address] [place], [place] [id number] Hematology/Oncology 02/25/23 FOR RECORDS PERTAINING TO PATIENTS WHO ARE OR HAVE BEEN ENROLLED IN A CHEMICAL DEPENDENCY/SUBSTANCEABUSE PROGRAM, SOME INFORMATION MAY BE OMITTED. This clinical summary was aggregated from multiple sources. Caution should be exercised in using it in the provision of clinical care. This summary normalizes information from multiple sources, and as a consequence, information in this document may materially change the coding, format and clinical context of patient data. In addition, data may be omitted in some cases. CLINICAL DECISIONS SHOULD BE BASED ON THE PRIMARY CLINICAL RECORDS. [employer] [facility]. provides no warranty or guarantee of the accuracy or completeness of information in this document.
[2023-05-13 12:40] LABS: Absolute Lymphocyte Count 0.84 X10^3/uL (0.83-4.51); Absolute Neutrophil Count 10.3 X10^3/uL (2.0-7.7); Basophil# 0.07 X10^3/uL; Basophil% 0.6 % (0-1); Eosinophil# 0.04 X10^3/uL; Eosinophils% 0.3 % (0-5); Hematocrit 33.5 % (37-47); Hemoglobin 11.3 g/dL (12.0-15.0); Lymphocyte # 0.84 X10^3/ul (0.83-4.51); Lymphocyte % 7.3 % (19-41); Mean Corp Hgb Conc 33.7 g/dL (32-36); Mean Corpuscular Volume 100.9 fL (81-99); Mean Platelet Vol. 10.1 fl (6.2-12.0); Monocyte# 0.22 X10^3/uL; Monocyte% 1.9 % (0-10); NRBC Flagged by Analyzer 0 % (0-5); Neutrophil # 10.29 X10^3/uL (2.7-7.7); Neutrophil % 89.6 % (47-70); Platelet Count 320 K/mm3 (150-450); RBC Distribution Width CV 13.6 % (11.6-14.6); RBC Distribution Width SD 49.7 fl (35.1-43.9); Red Blood Count 3.32 M/mm3 (4.2-5.4); White Blood Count 11.5 K/mm3 (4.4-11.0)
[2023-05-13 13:48] LABS: ALB/GLOB Ratio 1.2 RATIO (0.9-2.4); AST(SGOT) 21 U/L (15-37); Alanine Aminotransfer ALT/SGPT 23 U/L (13-56); Albumin, Serum 3.9 g/dL (3.2-5.0); Alkaline Phosphatase 86 U/L (45-117); Anion Gap 8 (5-15); BUN 18 mg/dL (7-18); BUN/Creat Ratio 17.5 RATIO (10-20); Chloride 108 mmol/L (98-107); Creatinine, Serum 1.03 mg/dL (0.55-1.02); EST Glomerular Filtration Rate 56 mL/min (>60); Est Glom Filt Rate - Afr Amer 68 mL/min (>60); Globulin 3.2 g/dL (2.2-4.2); Glucose 98 mg/dL (74-106); Potassium 3.9 mmol/L (3.5-5.1); Protein, Total 7.1 g/dL (6.4-8.2); Sodium Level 140 mmol/L (136-145)
== END | disposition home or self-care (01) ==
LOC: LAB 11:14
PROVIDERS: PCP Family Medicine; Referring Provider Internal Medicine Rheumatology; Visit Provider Internal Medicine Rheumatology
DX: M06.4 Inflammatory polyarthropathy (principal); Z79.899 Other long term (current) drug therapy
CPT/HCPCS: 36415; 80053; 85025

== ENCOUNTER → 2023-06-03 | Outpatient (CLI) | payer MEDICARE, OTHER, SELFPAY ==
--- NOTE | 2023-06-03 07:03 | CT_ITS ---
STUDY: CT LEFT SHOULDER REASON FOR EXAM: Female, 72 years old. For surgical planning reverse total shoulder replacement RADIATION DOSAGE (If Supplied By Facility): CTDIvol = ( 22.13 ) mGy, DLP = ( 467.21 ) mGycm TECHNIQUE: The patient was scanned in a multi detector CT scanner. High resolution transaxial imaging was performed without the administration of intravenous contrast material. Sagittal and coronal images were reconstructed. Individualized dose optimization techniques were used for this CT. COMPARISON: Left shoulder radiographs dated 04/30/2022. FINDINGS: There is glenohumeral arthrosis with joint space narrowing, marginal osteophyte formation, and subchondral sclerosis of the posterior glenoid. Intact glenoid rim, neck and visualized scapula. Intact humeral head, neck and tuberosities. There is no demonstrated acute fracture. Normal coracoid process. Normal visualized lateral clavicle. There is hypertrophic acromioclavicular arthrosis with inferior osteophyte formation, with mild effacement of the supraspinatus myotendinous junction. There is a Type II morphology (curved), with a neutral orientation. Normal visualized muscles and soft tissue structures. 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 No demonstrated acute fracture. Electronically Signed: Nathen Neville MD at 9:07 EST ,
--- NOTE | 2023-06-03 07:07 | MRI_ITS ---
STUDY: MRI LEFT SHOULDER REASON FOR EXAM: Female, 72 years old. For surgical planning reverse total shoulder replacement. TECHNIQUE: Standardized fat and water weighted pulse sequences were obtained in all 3 orthogonal planes. COMPARISON: Left shoulder CT dated 06/03/2023. FINDINGS: There is supraspinatus, infraspinatus, and subscapularis tendinosis without a full-thickness tear. Normal teres minor tendon. Normal supraspinatus muscle. Normal infraspinatus muscle. Normal subscapularis muscle. Normal teres minor muscle. There is glenohumeral arthrosis with joint space narrowing, marginal osteophyte formation, high-grade chondromalacia, and mild subchondral marrow edema. There is overall degeneration of the glenoid labrum. There is a moderate glenohumeral joint effusion. Intact humeral head and visualized proximal humerus. There is tendinosis and medial subluxation of the long biceps tendon at the proximal bicipital groove. There is hypertrophic acromioclavicular arthrosis, with inferior osteophyte formation, with mild effacement of the supraspinatus myotendinous junction. There is a Type II morphology (curved), with a neutral orientation. There is no significant subacromial-subdeltoid bursal fluid. Normal visualized coracohumeral and coracoacromial ligaments. Normal quadrilateral space. Normal axillary space. Normal deltoid muscle. Normal trapezius muscle. MRI/Upper Ext Joint Only(Routine) IMPRESSION: Supraspinatus, infraspinatus, and subscapularis tendinosis without a full-thickness rotator cuff tear. Hypertrophic acromioclavicular arthrosis, with inferior osteophyte formation, with mild effacement of the supraspinatus myotendinous junction. Glenohumeral arthrosis with overall degeneration of the glenoid labrum. Moderate glenohumeral joint effusion. Tendinosis and medial subluxation of the long biceps tendon at the proximal bicipital groove. Electronically Signed: Nathen Neville MD at 9:04 EST ,
--- OUTSIDE RECORDS SUMMARY | 2023-06-03 07:08 | XMS RPT_ITS | CCD ---
Author Name Unknown Address [id number] [place] [address] Organization [facility] Care Team Providers Care School Bus Aide Name Role Phone Vanessa Barrera Unavailable Vanessa Barrera Unavailable Raven Mark Unavailable [employer] Unavailable Vanessa Barrera Unavailable Jordan Sidhu MD Unavailable Vanessa Barrera Unavailable Francisco Ferrari MD Primary Care Provider Francisco Ferrari MD Primary Care Provider Francisco [...] Unavailable Mike Hopper DO Primary Care Provider JAMIE BULL Referring Unavailable MIKE HOPPER Primary Care Unavailable LESLIE HACKETT Attending Unavailable MIKE HOPPER Primary Care Unavailable LESLIE HACKETT Referring Unavailable MIKE HOPPER Primary Care Unavailable LESLIE HACKETT Referring Unavailable WILL, MIKE M Primary Care Unavailable WISAM MILLS Attending Unavailable WILL, MIKE M Primary Care Unavailable WILL, MIKE M Referring Unavailable HABBOUB, JAMIE Referring Unavailable WILL, MIKE M Primary Care Unavailable WILL, MIKE M Primary Care Unavailable WISAM MILLS Attending Unavailable WISAM MILLS Referring Unavailable HABBOUB, JAMIE Referring Unavailable WILL, MIKE M Primary Care Unavailable HABBOUB, JAMIE Referring Unavailable WILL, MIKE M Primary Care Unavailable WILL, MIKE M Primary Care Unavailable WISAM MILLS Attending Unavailable WISAM MILLS Referring Unavailable WILL, MIKE M Primary Care Unavailable WISAM MILLS Referring Unavailable WILL, MIKE M Primary Care Unavailable HABBOUB, JAMIE Attending Unavailable WILL, MIKE M Primary Care Unavailable WILL, MIKE M Primary Care Unavailable HABBOUB, JAMIE Referring Unavailable WILL, MIKE M Primary Care Unavailable JAMIE BULL Attending Unavailable HABBOUB, JAMIE Referring Unavailable WILL, MIKE M Primary Care Unavailable HABBOUB, JAMIE Referring Unavailable WILL, MIKE M Primary Care Unavailable ADRIÁN PULIDO Referring Unavailable ADRIÁN PULIDO Attending Unavailable FRANCISCO FERRARI Primary Care Unavailable HABBOUB, JAMIE Attending Unavailable ADRIÁN PULIDO Referring Unavailable FERRARIFRANCISCO K Primary Care Unavailable WILL, MIKE M Primary Care Unavailable WISAM MILLS Referring Unavailable HABBOUB, JAMIE Referring Unavailable LESLIE HACKETT Attending Unavailable WILL, MIKE M Primary Care Unavailable LESLIE HACKETT Referring Unavailable WILL, MIKE M Primary Care Unavailable LESLIE HACKETT Referring Unavailable WILL, MIKE M Primary Care Unavailable HABBODEVON, JAMIE Attending Unavailable HABBOUB, JAMIE Referring Unavailable WILL, MIKE M Primary Care Unavailable WILL, MIKE M Primary Care Unavailable WISAM MILLS Referring Unavailable WILL, MIKE M Primary Care Unavailable WISAM MLILS Referring Unavailable LESLIE HACKETT Attending Unavailable WILL, MIKE M Primary Care Unavailable WILL, MIKE M Referring Unavailable Allergies Allergy Classification Reported Allergen(s) Allergy Type Date of Onset Reaction(s) Facility (20 sources) Seasonal allergy; Translations: [SEASONAL ALLERGIES] Allergy to substance 05-20-201 4 Other: See Comments [facility] Work Phone: Medications Current Medications Medication [...] by mouth every 6 hours OXYCODONE-ACETAMIN OPHEN [id number] Patty Ambriz PA-C Problems Active Problems Problem Classification Problem Date Documented Date Episodic/Chronic Disorders of lipid metabolism (20 sources) Hyperlipidemia; Translations: [Hyperlipidemia, unspecified] Onset: 09-20-2014 09-20-2014 Chronic Neoplasms of unspecified nature or uncertain behavior (5 sources) Monoclonal gammopathy (clinical); Translations: [Monoclonal gammopathy] Onset: 08-26-2022 Chronic Nutritional deficiencies (2 sources) Vitamin D [...] myelopathy, lumbar region] Onset: 12-30-2012 07-07-2016 Chronic Unclassified (1 source) Other specified postprocedural states; [...] Translations: [Tobacco use] Onset: 09-20-2014 04-29-2021 Episodic Spondylosis; intervertebral disc disorders; other back problems (20 sources) Cervical spine ankylosis; Translations: [Neck pain] Onset: 12-30-2012 10-26-2016 Episodic Unclassified (1 source) Problem Results Test Name Value Interpretation Reference Range Facil ity Vital Signs Date Time Vital Sign Value Performing Clinician Facility 03-24-2023 10:29-0500 Body temperature 97.5 [degF] Wisam Mills MD Work Phone: [facility] 03-24-2023 10:29-0500 Body weight 44.23 kg Wisam Mills MD Work Phone: [facility] 03-24-2023 10:29-0500 Diastolic blood pressure 81 mm[Hg] Wisam Mills MD Work Phone: [facility] 03-24-2023 10:29-0500 Heart rate 102 /min Wisam Mills MD Work Phone: [facility] 03-24-2023 10:29-0500 SaO2% (BldA) [Mass fraction] 98 % Wisam Mills MD Work Phone: [facility] 03-24-2023 10:29-0500 Systolic blood pressure 132 mm[Hg] Wisam Mills MD Work Phone: [facility] 03-23-2023 09:21-0500 Body height 147.3 cm Jamie Bull MD Work Phone: [facility] 03-23-2023 09:21-0500 Diastolic blood pressure 75 mm[Hg] Jamie Bull MD Work Phone: [facility] 03-23-2023 09:21-0500 Heart rate 79 /min Jamie Bull MD Work Phone: [facility] 03-23-2023 09:21-0500 SaO2% (BldA) [Mass fraction] 98 % Jamie Bull MD Work Phone: [facility] 03-23-2023 09:21-0500 Systolic blood pressure 116 mm[Hg] Jamie Bull MD Work Phone: [facility] 02-25-2023 09:59-0400 Body height 147.3 cm Wisam Mills MD Work Phone: [facility] 02-25-2023 09:59-0400 Body temperature 98.01 [degF] Wisam Mills MD Work Phone: [facility] 02-25-2023 09:59-0400 Body weight 44 kg Wisam Mills MD Work Phone: [facility] 02-25-2023 09:59-0400 Diastolic blood pressure 74 mm[Hg] Wisam Mills MD Work Phone: [facility] 02-25-2023 09:59-0400 Heart rate 68 /min Wisam Mills MD Work Phone: [facility] 02-25-2023 09:59-0400 SaO2% (BldA) [Mass fraction] 99 % Wisam Mills MD Work Phone: [facility] 02-25-2023 09:59-0400 Systolic blood pressure 114 mm[Hg] Wisam Mills MD Work Phone: [facility] 01-19-2023 10:00-0400 Body weight 43.5 kg Jamie Bull MD Work Phone: [facility] 01-19-2023 10:00-0400 Diastolic blood pressure 75 mm[Hg] Jamie Bull MD Work Phone: [facility] 01-19-2023 10:00-0400 Heart rate 89 /min Jamie Bull MD Work Phone: [facility] 01-19-2023 10:00-0400 SaO2% (BldA) [Mass fraction] 99 % Jamie Bull MD Work Phone: [facility] 01-19-2023 10:00-0400 Systolic blood pressure 137 mm[Hg] Jamie Bull MD Work Phone: [facility] 10-20-2022 08:20-0400 Body height 144.8 cm Jamie Bull MD Work Phone: [facility] 10-20-2022 08:20-0400 Body weight 48.26 kg Jamie Bull MD Work Phone: [facility] 10-20-2022 08:20-0400 Diastolic blood pressure 78 mm[Hg] Jamie Bull MD Work Phone: [facility] 10-20-2022 08:20-0400 Heart rate 83 /min Jamie Bull MD Work Phone: [facility] 10-20-2022 08:20-0400 SaO2% (BldA) [Mass fraction] 97 % Jamie Bull MD Work Phone: [facility] 10-20-2022 08:20-0400 Systolic blood pressure 122 mm[Hg] Jamie Bull MD Work Phone: [facility] 09-10-2022 10:40-0400 Body height 144.8 cm Leslie Hackett MD Work Phone: [facility] 09-10-2022 10:40-0400 Body weight 47.63 kg Leslie Hackett MD Work Phone: [facility] 09-10-2022 10:40-0400 Diastolic blood pressure 71 mm[Hg] Leslie Hackett MD Work Phone: [facility] 09-10-2022 10:40-0400 Heart rate 77 /min Leslie Hackett MD Work Phone: [facility] 09-10-2022 10:40-0400 SaO2% (BldA) [Mass fraction] 97 % Leslie Hackett MD Work Phone: [facility] 09-10-2022 10:40-0400 Systolic blood pressure 115 mm[Hg] Leslie Hackett MD Work Phone: [facility] 08-26-2022 11:12-0400 Body temperature 98.01 [degF] Wisam Mills MD Work Phone: [facility] 08-26-2022 11:12-0400 Body weight 48.44 kg Wisam Mills MD Work Phone: [facility] 08-26-2022 11:12-0400 Diastolic blood pressure 80 mm[Hg] Wisam Mills MD Work Phone: [facility] 08-26-2022 11:12-0400 Heart rate 81 /min Wisam Mills MD Work Phone: [facility] 08-26-2022 11:12-0400 Respiratory rate 18 /min Wisam Mills MD Work Phone: [facility] 08-26-2022 11:12-0400 SaO2% (BldA) [Mass fraction] 98 % Wisam Mills MD Work Phone: [facility] 08-26-2022 11:12-0400 Systolic blood pressure 135 mm[Hg] Wisam Mills MD Work Phone: [facility] 07-23-2022 10:45-0400 Body height 144.8 cm Leslie Hackett MD Work Phone: [facility] 07-23-2022 10:45-0400 Body weight 49.44 kg Leslie Hackett MD Work Phone: [facility] 07-23-2022 10:45-0400 Diastolic blood pressure 89 mm[Hg] Leslie Hackett MD Work Phone: [facility] 07-23-2022 10:45-0400 Heart rate 91 /min Leslie Hackett MD Work Phone: [facility] 07-23-2022 10:45-0400 SaO2% (BldA) [Mass fraction] 96 % Leslie Hackett MD Work Phone: [facility] 07-23-2022 10:45-0400 Systolic blood pressure 147 mm[Hg] Leslie Hackett MD Work Phone: [facility] 06-23-2022 14:11-0500 Body height 147.3 cm Jamie Bull MD Work Phone: [facility] 06-23-2022 14:11-0500 Body weight 50.12 kg Jamie Bull MD Work Phone: [facility] 06-23-2022 14:11-0500 Diastolic blood pressure 85 mm[Hg] Jamie Bull MD Work Phone: [facility] 06-23-2022 14:11-0500 Heart rate 104 /min Jamie Bull MD Work Phone: [facility] 06-23-2022 14:11-0500 SaO2% (BldA) [Mass fraction] 99 % Jamie Bull MD Work Phone: [facility] 06-23-2022 14:11-0500 Systolic blood pressure 130 mm[Hg] Jamie Bull MD Work Phone: [facility] 06-04-2022 12:52-0500 Body height 147.3 cm Adrián Pulido PA-C Work Phone: [facility] 06-04-2022 12:52-0500 Body weight 47.63 kg Adrián Pulido PA-C Work Phone: [facility] 06-04-2022 12:52-0500 Diastolic blood pressure 70 mm[Hg] Adrián Pulido PA-C Work Phone: [facility] 06-04-2022 12:52-0500 Heart rate 93 /min Adrián Pulido PA-C Work Phone: [facility] 06-04-2022 12:52-0500 SaO2% (BldA) [Mass fraction] 98 % Adrián Pulido PA-C Work Phone: [facility] 06-04-2022 12:52-0500 Systolic blood pressure 120 mm[Hg] Adrián Pulido PA-C Work Phone: [facility] 04-17-2022 09:11-0500 Body height 147.3 cm Adrián Pulido PA-C Work Phone: [facility] 04-17-2022 09:11-0500 Body weight 48.81 kg Adrián Pulido PA-C Work Phone: [facility] 04-17-2022 09:11-0500 Diastolic blood pressure 68 mm[Hg] Adrián Pulido PA-C Work Phone: [facility] 04-17-2022 09:11-0500 Heart rate 79 /min Adrián Pulido PA-C Work Phone: [facility] 04-17-2022 09:11-0500 SaO2% (BldA) [Mass fraction] 97 % Adrián Pulido PA-C Work Phone: [facility] 04-17-2022 09:11-0500 Systolic blood pressure 120 mm[Hg] Adrián Pulido PA-C Work Phone: [facility] 02-07-2022 10:27-0400 Body weight 46.72 kg Mayur Cao MD Work Phone: [facility] 02-07-2022 10:27-0400 Diastolic blood pressure 85 mm[Hg] Mayur Cao MD Work Phone: [facility] 02-07-2022 10:27-0400 Heart rate 84 /min Mayur Cao MD Work Phone: [facility] 02-07-2022 10:27-0400 Systolic blood pressure 141 mm[Hg] Mayur Cao MD Work Phone: [facility] 07-07-2016 09:59-0500 BMI (Body Mass Index) 18.3 kg/m2 [facility] Work Phone: 07-07-2016 09:59-0500 Height 165.1 cm [facility] Work Phone: 07-07-2016 09:59-0500 Weight 49.9 kg [facility] Work Phone: NEGATED: Highlighted [id number] 12:04-0400 BMI (Body Mass Index) 21.56 kg/m2 Marleni Chirinos RN [facility] Work Phone: NEGATED: Highlighted [id number] 12:04-0400 BP Diastolic 83 mm[Hg] Marleni Chirnios RN [facility] Work Phone: NEGATED: Highlighted [id number] 12:04-0400 BP Systolic 126 mm[Hg] Marleni Chirinos RN [facility] Work Phone: NEGATED: Highlighted [id number] 12:04-0400 Height 152.4 cm Marleni Chirinos RN [facility] Work Phone: NEGATED: Highlighted [id number] 12:04-0400 Height 152 cm Marleni Chirinos RN [facility] Work Phone: NEGATED: Highlighted [id number] 12:04-0400 Pulse (Heart Rate) 65 /min Marleni Chirinos RN [facility] Work Phone: NEGATED: Highlighted [id number] 12:04-0400 Weight 49.9 kg Marleni Chirinos RN [facility] Work Phone: NEGATED: Highlighted [id number]:040400 Weight 50 kg Marleni Chirinos RN [facility] Work Phone: Encounters Encounter Date Encounter Type Care Provider Facility Start: 05-27-2023 End: 05-27-2023 [facility] Facility:[facility] Start: 04-22-2023 End: 04-22-2023 [facility] Facility:[facility] Start: 04-22-2023 End: 04-22-2023 Patient encounter procedure Nurse Ari Campos Work Phone: Endocrinology Procedures Date Procedure Procedure Detail Performing Clinician Start: 05-31-2022 Mri spinal canal tho sundeep w/o & w/contr matrl Adrián Pulido PA-C [...] DTaP,Tdap,Td Vaccine (2 - Td or Tdap) [facility] Start: 02-25-2026 Diabetes Screening Diabetes Screening [facility] Start: 07-29-2025 DIABETES SCREEN DIABETES SCREEN [facility] Start: 07-29-2025 Diabetes Screening Diabetes Screening [facility] Start: 03-13-2024 Influenza vaccination Lung Cancer Screening [facility] Start: 03-13-2024 Screening for malignant neoplasm of lung Lung Cancer Screening [facility] Start: 05-23-2023 Colonoscopy COLONOSCOPY [facility] Start: 05-23-2023 COLORECTAL CANCER SCREENING COLORECTAL CANCER SCREENING [facility] Start: 05-23-2023 Screening for malignant neoplasm of colon [facility] Start: 03-13-2023 End: 05-13-2023 25-hydroxyvitamin D3 [Mass/volume] in Serum or Plasma VITAMIN D 25 HYDROXY Lab Routine Age-related osteoporosis with current pathological fracture with routine healing, subsequent encounter Other specified disorders of bone density and structure, unspecified site Expected: 03/13/2023 (Approximate), Expires: 05/13/2023 [facility] Work Phone: Immunizations Immunization Date Immunization Notes Care Provider Fa [facility] 12-30-2012 pneumococcal polysaccharide vaccine, 23 valent Mayur Cao MD Work Phone: [facility] 12-30-2012 tetanus and diphther ia toxoids, adsorbed, preservative free, for adult use (2 Lf of tetanus toxoid and 2 Lf of diphtheria toxoid) Mayur Cao MD Work Phone: [facility] No information available. Marleni Chirinos RN [facility] Work Phone: Payers Date Payer Category Payer Unknown MMO MMO MEDICARE SUPPLEMENT [id number] 2021-Present [phone] [address] [place] [address] Indemnity [id number] 2018 Medicare [id number] 2016 Unknown [id number] 2016 Medicare [id number] 2015 Medicare MEDICARE MEDICAR E A AND B [id number] 2015-Present [phone] [address] [address] [place] [address] Medicare [id number] 2015 Medicare [id number] 1950 Unknown [id number] Social History Date Type Detail Facility Start: 02-15-2015 End: 04-17-2022 Tobacco smoking status NHIS Ex-smoker [facility] End: 04-12-2013 History of tobacco use Current smoker [facility] End: 04-12-2013 History of tobacco use Cigarette Smoker [facility] Start: 02-15-2015 End: 09-10-2022 Cigarettes smoked current (pack per day) - Reported 1 [facility] Start: 02-15-2015 End: 04-17-2022 Tobacco use and exposure Smokeless tobacco non-user [facility] Start: 12-18-2021 End: 03-24-2023 Alcohol intake Current non-drinker of alcohol (finding) [facility] Start: 12-07-2014 Tobacco Comment curently 1 pac k per month [facility] Start: 06-22-1951 Sex Assigned At Female [facility] Start: 01-28-2022 End: 02-07-2022 Exposure to SARS-CoV-2 (event) Not sure [facility] Start: 09-10-2022 End: 10-20-2022 Tobacco use panel [facility] Adult Depression Screening Assessment 2 [facility] Start: 01-09-2022 Gender identity Identifies as female gender (finding) [facility] Start: 01-09-2022 Sexual orientation Heterosexual (fin ding) [facility] NEGATED: Highlighted rowStart: 2017 End: 2017 Assertion Former smoker [facility] Work Phone: NEGATED: Highlighted rowStart: 2017 End: 2017 How many days of moderate to strenuous exercise, like a brisk walk, did you do in the last 7 days? EXERCISEFREQ 7 days per week [facility] Work Phone: Medical Equipment Procedure Code Equipment Code Equipment Origin al Text Equipment Identifier Dates 3 Level Plate 39mm [id number] Start: 12-14-2014 Screw Bn 4mm 14m m [facility] [id number] Start: 12-14-2014 Clinical Notes 08-03-2013 to 05-27-2023 Lyric Queen RN - 04/22/2023 10:37 AM Wisam Montoya MD - 03/24/2023 10:39 AM Lyric Hernandez RN - 03/23/2023 10:11 AM Jamie Joiner MD - 03/23/2023 9:27 AM EST Note Date & Type Note Facility 05-27-2023 Note HNO ID: [id number] Author: LESLIE HACKETT MD Service: ? Author Type: Physician Type: Progress Notes Filed: 05/27/2023 15:02 Note Text: ENDOCRINOLOGY CLINIC NOTE Reason for visit Yara Loya is a 72 year old female with fibromyalgia, RA presented for follow-up of low bone density. HPI She had surgeries for spinal stenosis and sees neurosurgery. Cervical and thoracic MRI in showed stenosis and chronic T3 compression fracture. There is consideration for another cervical spine surgery She sees rheumatology for fibromyalgia and RA and she takes MTX and plaquenil. She received prednisone for several months Evaluation for secondary causes of low BMD showed SPEP with M protein, negative celiac screen, ionized calcium 1.28, vitamin D 45, PTH 73, vitamin D 45.7, P3.7, bone specific ALP 38, CTX 412, 24-hour urine calcium 86. L-spine x-ray showed age-indeterminate T12 fracture. She was seen by hematology and the impression is that she has monoclonal gammopathy We switched from Fosamax to Evenity in 09/2022 because she developed vertebral fractures while on long-term Fosamax therapy. States that she had a DXA scan in October 2022 Most recent DXA 10/16/2020 (images below): L-spine [...] once a week for a 10 years until 09/2022 Evenity Family history of metabolic bone disease or [...] Dietary calcium: drinks milk every day Supplements: MVI Vitamin D intake: 5000 units daily Dental Procedure: None Radiation Exposure: None Height Loss: Lost 4 inches Hyperparathyroidism: Screening labs showed PTH 73 with iCa 1.28 and 24 hr urine calcium 85.7. She is taking biotin Repeat labs showed albumin adjusted calcium 9.2, ionized calcium 1.30, vitamin D 74, GFR 69 and PTH 67 Past Medical History PAST MEDICAL HISTORY Diagnosis Date Arthritis of neck Fibromyalgia Herniated disc, cervical she says she has 7 herniated discs Osteoporosis Past Surgical History PAST SURGICAL HISTORY Procedure Laterality Date ARTHRD ANT INTERBODY MIN DSC CRV BELOW C2 12/14/14 DISCECTOMY ANT DCMPRN CORD CERVICAL 1 [facility] 8/13/15 DISCECTOMY ANT DCMPRN CORD CERVICAL EA [facility] 12/14/14 HEMORRHOID SURGERY HX 2014 PAST SURGICAL HISTORY OF 2000 back, done by ?DR. Kelley? TONSILLECTOMY AND ADENOIDECTOMY Medications Current Outpatient Medications Medication Sig multivitamin tablet Take 1 tablet by mouth once daily. TURMERIC ORAL Take 1 tablet by mouth once daily. BIOTIN ORAL Take 2 tablets by mouth once daily. 6000 MCG Biotin, with Keratin 50 mg hydrOXYchloroQUINE (PLAQUENIL) 200 mg tablet Take 200 mg by mouth once daily. folic acid 0.8 mg cap Take 2 capsules by mouth once daily. methotrexate 2.5 mg tablet Take 8 tablets by mouth once weekly. oxyCODONE myristate (XTAMPZA ER) 13.5 mg CSpT Take 1 capsule by mouth two times a day. cholecalciferol (VITAMIN D3) 5,000 unit tab Take 5,000 Units by mouth once daily. predniSONE (DELTASONE) 10 mg tablet Take 10 mg by mouth once daily. CALCIUM CARBONATE (CALCIUM 300 ORAL) Take 1 tablet by mouth once daily. methocarbamol (ROBAXIN-750) 750 mg tablet Take 1 tablet by mouth three times daily as needed. (Patient not taking: Reported on 03/23/2023) CALCIUM ORAL Take 600 mg by mouth once daily. (Patient not taking: Reported on 03/23/2023) iv [...] nursing protocol. Once exam is complete flush l (more content not included)... [facility] 04-22-2023 Nurse Note The patient is here for an injection of Evenity Injection #7 of 12 Dose: 210 mg (105 mg/1.17 mL X2). Route: Subcutaneous Lot# [id number] Expiration date 01/31/2025 [facility]: 25933-102-83 Given without incident. Site: Right arm Dr. Hackett present in clinic at time of injection. The date due for the next injection is in 30 days. On or after 05/23/23. Last Injection: 03/23/23 DAVID: 09/10/2022 NOV: 05/27/23 Insurance: Primary= Medicare, Secondary= [facility] [place] Required Labs: 03/13/23 Calcium 9.5, Vitamin D 74.1 DX: M81.0 CPT: J3111 DXA: 10/16/20 (TScore -2.9) Patient education was given by nurse. Patient tolerated Injection well, in NAD and no reactions noted. Medication supplied by [facility]. Lyric Queen RN documented in this encounter [facility] 03-24-2023 Note HNO ID: [id number] Author: Wisam Mills MD Service: ? Author [...] 12/14/14 DISCECTOMY ANT DCMPRN CORD CERVICAL 1 [facility] 12/14/14 DISCECTOMY ANT DCMPRN CORD CERVICAL EA [facility] 12/14/14 HEMORRHOID SURGERY HX 2014 PAST [...] in no (more content not included)... [facility] 03-24-2023 History of Present illness Narrative (Elements [...] 12/14/14 DISCECTOMY ANT DCMPRN CORD CERVICAL EA [facility] 12/14/14 HEMORRHOID SURGERY HX 2013 PAST [...] which included preparing to see the patient, [id number] patient care, completing clinical documentation, obtaining and/or reviewing separately obtained history, counseling and educating the patient/family/caregiver, ordering medications, tests, or procedures, independently interpreting results (not separately reported), and communicating results to the patient/family/caregiver. Electronically Signed: Wisam Mills MD March 24, 2023 documented in this encounter [facility] 03-23-2023 Note HNO ID: [id number] Author: Jamie Bull MD Service: ? Author [...] 31 42 (more content not included)... [facility] 03-23-2023 Nurse Note The patient is here for an injection of Evenity Injection #6 of 12 Dose: 210 mg (105 mg/1.17 mL X2). Route: Subcutaneous Lot# [id number] Expiration date 01/31/2025 [facility]: [id number] Given without incident. Site: Right arm Dr. [...] Lyric Queen RN documented in this encounter [facility] 03-23-2023 History of Present illness Narrative [...] Past Histories independently gathered by the clinical account support associate and the remaining scribed note accurately describes my personal service to the patient. The documentation for this note was completed by Nancy Bower acting as scribe for Jamie Bull MD. March 23, 2023 9:33 AM. I agree with the operative note independently gathered by the clinical account support associate and the remaining scribed note accurately describes my personal service to the patient. SIGNATURE: Jamie Bull MD PATIENT NAME: Yara Loya DATE: March 23, 2023 TIME: 9:27 AM PAGER: documented in this encounter [facility] 03-13-2023 Note HNO ID: [id number] Author: Becky Reno RT(R) Service: ? Author Type: Smt Machine Operator Type: Progress Notes Filed: 03/13/2023 12:05 PM [...] March 13, 2023 TIME: 12:04 PM [facility] 03-13-2023 History of Present illness Narrative Radiology [...] TIME: 12:04 PM documented in this encounter [facility] 02-25-2023 Note HNO ID: [id number] Author: Wisam Mills MD Service: ? Author [...] 20.28 kg/( (more content not included)... [facility] 02-25-2023 History of Present illness Narrative (Elements [...] 12/14/14 DISCECTOMY ANT DCMPRN CORD CERVICAL 1 [facility] 12/14/14 DISCECTOMY ANT DCMPRN CORD CERVICAL EA [facility] 12/14/14 HEMORRHOID SURGERY HX 2013 PAST [...] which included preparing to see the patient, tiyh-pe-plmg patient care, completing clinical documentation, obtaining and/or reviewing separately obtained history, counseling and educating the patient/family/caregiver, ordering medications, tests, or procedures, independently interpreting results (not separately reported), and communicating results to the patient/family/caregiver. Electronically Signed: Wisam Mills MD February 25, 2023 documented in this encounter [facility] 02-18-2023 Nurse Note The patient is here for an injection of Evenity Injection #5 of 12 Dose: 210 mg (105 mg/1.17 mL X2). Route: Subcutaneous Lot# [id number] Expiration date 01/31/2025 [facility]: 72110-880-44 Given without incident. Site: Right arm Dr. [...] Yuliana Bagley RN documented in this encounter [facility] 01-26-2023 Miscellaneous Notes CD/REPORT READY FOR CHILD CAREGIVER [facility] [place] RADIOLOGY FM FOR PT Pt requesting disc of ct taken on 01/23 Lalitha Ramos January 23, 2023 11:32 AM documented in this encounter [facility] 01-23-2023 Note HNO ID: [id number] Author: Becky Reno RT(R) Service: ? Author Type: Smt Machine Operator Type: Progress Notes Filed: 01/23/2023 3:17 PM [...] IV DATA: Not applicable SIGNED BY: RT Aaron(R) January 23, 2023 3:17 PM [facility] 01-19-2023 Note HNO ID: [id number] Author: Jamie Bull MD Service: ? Author [...] 05/30/2015 10/ (more content not included)... [facility] 01-19-2023 History of Present illness Narrative SPINE [...] me: No additional images reviewed today ASSESSMENT/PLAN (S22.031D) Closed stable burst fracture of third thoracic vertebra with routine healing, subsequent encounter (primary encounter diagnosis) (M48.02) Spinal stenosis of cervical region (Z98.1) Arthrodesis status Yara Silvestre Loya will continue with medical management of [...] Past Histories independently gathered by the clinical account support associate and the remaining scribed note accurately describes my personal service to the patient. The documentation for this note was completed by Genna Zee, AA Student acting as scribe for Jamie Bull MD. January 19, 2023 10:22 AM. I agree with the operative note independently gathered by the clinical account support associate and the remaining scribed note accurately describes my personal service to the patient. SIGNATURE: Jamie Bull MD PATIENT NAME: Yara Loya DATE: January 19, 2023 TIME: 10:22 AM PAGER: documented in this encounter [facility] 01-19-2023 Nurse Note The patient is here for an injection of Evenity Injection #4 of 12 Dose: 210 mg (105 mg/1.17 mL X2). Route: Subcutaneous Lot# [id number] Expiration date 01/31/2025 [facility]: 31045-486-78 Given without incident. Site: Right arm present [...] and no reactions noted. Medication supplied by [facility]. Yuliana Bagley RN documented in this encounter [facility] 12-24-2022 Miscellaneous Notes Patient scheduled her #4 Evenity Injection for 01/19/2023. Closed Patient called back, state's she has COVID and will call back to reschedule when she is feeling better. Keep open. Patient missed her # 4 Evenity Injection yesterday and did not call or reschedule as of yet. Called patient's home, left voice message to call office at [phone], and ask to speak to the nurse. Also, sent patient a [employer] message. documented in this encounter [facility] 12-16-2022 Miscellaneous Notes Noted. Thank you. Patient called back stating she has COVID and is not feeling well. Patient will call back when she is feeling better to reschedule her injection documented in this encounter [facility] 11-13-2022 Nurse Note The patient is here for an injection of Evenity Injection #3 of 12 Dose: 210 mg (105 mg/1.17 mL X2). Route: Subcutaneous Lot# [id number] Expiration date 01/31/2025 [facility]: 11740-862-24 Given without incident. Site: Right arm present [...] Lyric Queen RN documented in this encounter [facility] 10-24-2022 Miscellaneous Notes Will forward for review. Patient calling asking for results of Xray dont one 10/20. She also wants to know if she can get a referral to another neurosurgeon closer to home in [place]. States that she has seen him before and was the one that did her first surgery. She would like to get a second opinion with him again but they are asking for a referral. documented in this encounter [facility] 10-20-2022 Note HNO ID: [id number] Author: LUKE Jessica Service: Radiology Author Type: Technologist Type: Progress Notes Filed: 10/20/2022 9:11 AM Note Text: Radiology Service Progress Note PATIENT NAME: Yara Loya DATE OF SERVICE: October 20, 2022 [...] LUKE Jessica October 20, 2022 9:11 AM [facility] 10-20-2022 Note HNO ID: [id number] Author: Jamie Bull MD Service: ? Author [...] 10-14 Moderate (more content not included)... [facility] 10-20-2022 History of Present illness Narrative SPINE [...] at 8:51 AM. documented in this encounter [facility] 09-10-2022 Note HNO ID: [id number] Author: Leslie Hackett MD Service: ? Author [...] on 07/23/2022) (more content not included)... [facility] 09-10-2022 Nurse Note The patient is here for an injection of Evenity Injection #1 of 12 Dose: 210 mg (105 mg/1.17 mL X2). Route: Subcutaneous Lot# [id number] Expiration date 10/2024 [facility]: 07945-845-15 Given without incident. Site: left arm Dr. Hackett present in clinic at time of injection. The date due for the next injection is in 30 days. On or after 10/11/2022. First injection DAVID: Today NOV: Will need 03/2023 Insurance: Primary= Medicare, Secondary= MMO-- No PA Required Labs: 07/29/22 Calcium 9.7, Vitamin D 45.7 DX: M81.0 CPT: J3111 DXA: 10/16/20 (TScore -2.9) Patient education was given by nurse. Patient tolerated Injection well, in NAD and no reactions noted. Medication supplied by [facility]. Yuliana Bagley RN documented in this encounter [facility] 09-10-2022 Instructions Leslie Hackett MD - 09/10/2022 11:13 AM EDT - Stop the Fosmax - We will start a new medication for the osteoporosis called Evenity injection every month - I will see you in 6 months with a blood test few days prior to the appointment. Please stop the biotin 5 days before doing the test documented in this encounter [facility] 09-10-2022 History of Present illness Narrative [...] 12/14/14 DISCECTOMY ANT DCMPRN CORD CERVICAL EA [facility] 12/14/14 HEMORRHOID SURGERY HX 2013 PAST SURGICAL [...] - Moderate This note was created using Secure Mentem dictation software. You may find errors that were missed during proofreading. They are purely unintentional and if there are any concerns regarding this dictation, please do not hesitate to call the dictating provider for clarification. Leslie Hackett MD documented in this encounter [facility] 08-26-2022 Note HNO ID: [id number] Author: Wisam Mills MD Service: ? Author [...] 12/14/14 DISCECTOMY ANT DCMPRN CORD CERVICAL 1 [facility] 12/14/14 DISCECTOMY ANT DCMPRN CORD CERVICAL EA [facility] 12/14/14 HEMORRHOID SURGERY HX 2013 PAST [...] which included preparing to see the patient, smgx-dx-dlmq patient care, completing clinical documentation, obtaining and/or reviewing separately obtained history, counseling and educating the patient/family/caregiver, ordering medications, tests, or procedures, independently interpreting results (not separately reported), and communicating results to the patient/family/caregiver. Electronically Signed: Wisam Mills MD August 26, 2022 11:22 AM [facility] 08-26-2022 History of Present illness Narrative HISTORY OF PRESENT ILLNESS: Yara Loay is a 71 year old female referred [...] 12/14/14 DISCECTOMY ANT DCMPRN CORD CERVICAL 1 [facility] 12/14/14 DISCECTOMY ANT DCMPRN CORD CERVICAL EA [facility] 12/14/14 HEMORRHOID SURGERY HX 2013 PAST [...] which included preparing to see the patient, ikzd-bp-wicf patient care, completing clinical documentation, obtaining and/or reviewing separately obtained history, counseling and educating the patient/family/caregiver, ordering medications, tests, or procedures, independently interpreting results (not separately reported), and communicating results to the patient/family/caregiver. Electronically Signed: Wisam Mills MD August 26, 2022 11:22 AM documented in this encounter [facility] 08-14-2022 Miscellaneous Notes Mailed patient letter about not answering phone and attached providers message. CLOSED 3rd attempt: Called patients home and left VM to call back office at [phone]. Please give message below. Sending mychart message in case she will check it that way. Called patient's home/cell# at [phone] left voice message to call office at [phone], and ask to speak to the nurse. Called patients number and left VM to call back office at [phone]. Please give message below. ----- Message from [...] They have 2 numbers on their website [phone] or [phone] if you could give both to her I will see her next month as planned Thank you H documented in this encounter [facility] 07-31-2022 Note HNO ID: [id number] Author: RT Siddhartha(R) Service: Nuclear Medicine Author Type: Technologist Type: [...] Siddhartha(R) July 31, 2022 8:39 AM [facility] 07-23-2022 Note HNO ID: [id number] Author: Leslie Hackett MD Service: ? Author Type: Physician Type: Progress Notes Filed: 07/23/2022 12:03 PM Note Text: ENDOCRINOLOGY CLINIC NOTE Reason for visit Yara Loya is a 71 year old female with fibromyalgia, RA seen in consultation for evaluation and discussion of treatment options for low bone density. [facility] She had surgeries for spinal stenosis and [...] 12/14/14 DISCECTOMY ANT DCMPRN CORD CERVICAL 1 [facility] 12/14/14 DISCECTOMY ANT DCMPRN CORD CERVICAL EA [facility] 12/14/14 HEMORRHOID SURGERY HX 2013 PAST [...] Packs/day: 1.00 (more content not included)... [facility] 07-23-2022 Instructions Leslie Hackett MD - 07/23/2022 [...] treat osteoporosis in your case: Please visit [email or web address] to learn more about this medication Teriparatide Pen Injector (DAILY INJECTION) Stoney Uses For bone strength. Instructions This medicine [...] medicines you take. Include both prescription and ilzf-xua-swdxafj medicines. Also tell them about any vitamins, [...] this medicine. Abaloparatide Pen Injector (DAILY INJECTION) Tymlos Uses For bone strength. Instructions This medicine [...] medicines you take. Include both prescription and piwr-cgq-pkrhtkt medicines. Also tell them about any vitamins, [...] medical help quickly. documented in this encounter [facility] 07-23-2022 History of Present illness Narrative Images from the original note were not included. ENDOCRINOLOGY CLINIC NOTE Reason for visit Yara Loya is a 71 year old female with fibromyalgia, RA seen in consultation for evaluation and discussion of treatment options for low bone density. [facility] She had surgeries for spinal stenosis and [...] 12/14/14 DISCECTOMY ANT DCMPRN CORD CERVICAL 1 [facility] 12/14/14 DISCECTOMY ANT DCMPRN CORD CERVICAL EA [facility] 12/14/14 HEMORRHOID SURGERY HX 2013 PAST [...] and mentioned as above Assessment and recommendations Yaar Loya is a 71 year old female [...] with more than 50% of the total vpdn-xn-djki time of the visit in counseling / coordination of care. This note was created using Secure Mentem dictation software. You may find errors that were missed during proofreading. They are purely unintentional and if there are any concerns regarding this dictation, please do not hesitate to call the dictating provider for clarification. Leslie Hackett MD documented in this encounter [facility] 06-23-2022 Note HNO ID: [id number] Author: Jamie Bull MD Service: ? Author [...] 12/14/14 DISCECTOMY ANT DCMPRN CORD CERVICAL [facility] 12/14/14 HEMORRHOID SURGERY HX 2013 PAST SURGICAL [...] and weight (more content not included)... [facility] 06-23-2022 History of Present illness Narrative SPINE [...] 12/14/14 DISCECTOMY ANT DCMPRN CORD CERVICAL [facility] 12/14/14 HEMORRHOID SURGERY HX 2014 PAST SURGICAL [...] at 2:48 PM. documented in this encounter [facility] 06-04-2022 Note HNO ID: [id number] Author: Adrián Pulido PA-C Service: ? Author Type: Physician Teletype Installer Type: Progress Notes Filed: 06/04/2022 1:34 PM Note Text: [facility] [address] [place] [address] Dear Francisco Ferrari MD, Yara Loya is [...] been by Dr. Denny Monk here at [facility] ROS: Since last visit-patient DENIES fevers, [...] unknown ag (more content not included)... [facility] 06-04-2022 Instructions Adrián Pulido PA-C - 06/04/2022 1:20 PM EST How to review your options for a [facility] physician referral: Go to [email or web address] and look for the Find a Doctor tab right underneath the [facility] logo in the top left corner of the page. Click on that and then enter spine surgery in that search field. There should be 18 or 20 different physicians in the [facility] area for you to review their credentials, locations of practice, educational background, and specialties. Call [phone] to schedule. Look for someone who works with thoracic spine and fractures. documented in this encounter [facility] 06-04-2022 History of Present illness Narrative Adrián Pulido [facility] [address] [address] Dear Francisco Ferrari MD, Yara Ramosler is a very pleasant 71 year old [...] been by Dr. Denny Monk here at [facility] ROS: Since last visit-patient DENIES fevers, [...] had had some studies done outside of [place] in the interval between 2015 and 2021. We uploaded those into [employer] and copied off the reports for scanning [...] hold her studies that were uploaded to [employer] today. She will carry these to her neurosurgical appointment in case there is any question or discrepancy with what has uploaded into [employer] at that point in time. Time spent: 45 minutes today with this patient visit. This includes mocs-bh-wcoc time, review of chart records regarding conservative care history, spine-pertinent imaging, and communication/care coordination with referring provider, problem-specific history-taking and counseling/education regarding treatment options. This document has been created with the use of voice recognition technology. It may contain inaccuracies: (e.g. misspellings, inaccurate syntax or word sense) that have escaped review. Mecca Hester MA documented in this encounter [facility] 05-31-2022 Note HNO ID: [id number] Author: Joan Sun RT(R) Service: Radiology Author Type: Technologist Type: Progress [...] DATE: May 31, 2022 TIME: 2:36 PM [facility] 05-31-2022 History of Present illness Narrative Radiology [...] TIME: 2:36 PM documented in this encounter [facility] 04-17-2022 Note HNO ID: [id number] Author: LUKE Jessica Service: Radiology Author Type: [...] LUKE Jessica April 17, 2022 10:50 AM [facility] 04-17-2022 Instructions Adrián Pulido PA-C - 04/17/2022 10:00 AM EST documented in this encounter [facility] 04-17-2022 History of Present illness Narrative Images from the original note were not included. Adrián Pulido PA-C [facility] [address] [address] 04/17/2022 ASSESSMENT AND PLAN: Assessment : Encounter [...] afterward and had done treatment locally in [place] by pain management with Dr. Christianson where she had injections. She did not bring any records to know specifically what type of injections were done but she reported no help at all from them. She won't go back to [place] because it's too far to drive. Ice is the only thing that seems to give her some help. She reports having had some studies regarding her neck in the past few months in [place], but there is nothing available for review in [facility]. She has hyperreflexia and appearance of chronic [...] today with this patient visit. This includes accq-mt-daow time, review of chart records regarding conservative care history, spine-pertinent imaging, and communication/care coordination with referring provider, problem-specific history-taking and counseling/education regarding treatment options. cc: No referring provider defined for this encounter. Phone: N/A Fax: Results of consultation to be transmitted via electronic medical record for those providers who practice within [facility] [place] or with access to [employer] via MD Connect, or via letter. ____ ################################## ################################## #### CHIEF COMPLAINT: Patient is here for the neck pain, right shoulder, pain goes to underarm. Has the neck pain for years but in right side pain started. Level of the pain is at 8/10. Pain radiates down to her right side, right leg. 2 months ago she had cervical injection, in [place], didn't help. HPI: See Discussiuon above History of bowel or bladder dysfunction (not IBS or constipation): No History of previous spinal surgery: Yes, performed in 2014, [address] Monk at [facility]. 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 Spoke with patient, advised Dr. Cao is only at [place] location on Fridays and offered virtual visit, [...] advise, Amelie Brito documented in this encounter [facility] 02-28-2022 Miscellaneous Notes Spoke with Bev at [facility] and informed her of Dr. Cao's message. Faxing encounter over to Dr. Mccain's office Attn Bev @ [phone] Please call them and advise that neurology does not provide clearance for surgery There is no literature guiding this topic. If there is a specific question, please have the surgeon reach out to me directly to discuss. Received demographics and surgery clearance form from [facility]. Placed in tray for review and signature. documented in this encounter [facility] 02-28-2022 History of Present illness Narrative [...] Bob EMG Tech documented in this encounter [facility] 02-07-2022 Instructions Mayur Cao MD - 02/07/2022 11:11 AM EDT Increase your dose of gabapentin to 300 mg twice a day (morning and night). Please call the [facility] [place] call center at [phone] to make your EMG testing appointment at one of the following locations: [facility] and [facility] ([place] Please make sure that your test is scheduled at one of the above locations. documented in this encounter [facility] 02-07-2022 History of Present illness Narrative HPI: This is Ms. Yara Loya a 71 year old female from who presents to the [facility] neurology department with a chief complaint [...] any reason that you can't have surgery Supervisor [place] started her on prednisone 10 mg daily, improved R knee pain. Also helped right shoulder/side pain Said she could only take short term d/t osteoporosis. Hx of cervical spine fusion x 2, first surgery 8 years ago at [facility], last surgery about 4 years ago; in [place] at [facility] Hx of lumbar spine fusion 2-3 years ago [place] in [place] Hx of bilateral hip replacement, most recent [...] prior imaging of the cervical spine from 2014/2015 (myelogram and MRI) demonstrates increased cervical cord [...] RTC 3 months. documented in this encounter [facility] 01-09-2022 Miscellaneous Notes Called patient to schedule from referral. Patient not scheduling at this time because she is seeing someone else. May call back in the future to schedule with Dr. Cao at the [place] location documented in this encounter [facility] documented as of this encounter (statuses as of 01/09/2022) [facility] History of Past illness Narrative* Problem Noted Date Resolved Date Hemorrhoids 08/03/2013 09/20/2013 Last Assessment & Plan: Patient had her hemorrhoidectomy done and she feels a lot of pain relief. Pruritus ani 04/20/2013 09/20/2013 documented as of this encounter (statuses as of 02/07/2022) [facility] History of Past illness Narrative* Problem Noted Date Resolved Date Hemorrhoids 08/03/2013 09/20/2013 Last Assessment & Plan: Patient had her hemorrhoidectomy done and she feels a lot of pain relief. Pruritus ani 04/20/2013 09/20/2013 documented as of this encounter (statuses as of 02/28/2022) [facility] History of Past illness Narrative* Problem Noted Date Resolved Date Hemorrhoids 08/03/2013 09/20/2013 Last Assessment & Plan: Patient had her hemorrhoidectomy done and she feels a lot of pain relief. Pruritus ani 04/20/2013 09/20/2013 documented as of this encounter (statuses as of 02/28/2022) [facility] History of Past illness Narrative* Problem Noted Date Resolved Date Hemorrhoids 08/03/2013 09/20/2013 Last Assessment & Plan: Patient had her hemorrhoidectomy done and she feels a lot of pain relief. Pruritus ani 04/20/2013 09/20/2013 documented as of this encounter (statuses as of 03/04/2022) [place] [address]-02-2014 History of Past illness Narrative* Problem Noted Date Resolved Date Hemorrhoids 08/03/2013 09/20/2013 Last Assessment & Plan: Patient had her hemorrhoidectomy done and she feels a lot of pain relief. Pruritus ani 04/20/2013 09/20/2013 documented as of this encounter (statuses as of 03/13/2022) [facility] History of Past illness Narrative* Problem Noted Date Resolved Date Hemorrhoids 08/03/2013 09/20/2013 Last Assessment & Plan: Patient had her hemorrhoidectomy done and she feels a lot of pain relief. Pruritus ani 04/20/2013 09/20/2013 documented as of this encounter (statuses as of 04/17/2022) [place] [address]-02-2014 History of Past illness Narrative* Problem Noted Date Resolved Date Hemorrhoids 08/03/2013 09/20/2013 Last Assessment & Plan: Patient had her hemorrhoidectomy done and she feels a lot of pain relief. Pruritus ani 04/20/2013 09/20/2013 documented as of this encounter (statuses as of 06/01/2022) [facility]-02[facility]2014 History of Past illness Narrative* Problem Noted Date Resolved Date Hemorrhoids 08/03/2013 09/20/2013 Last Assessment & Plan: Patient had her hemorrhoidectomy done and she feels a lot of pain relief. Pruritus ani 04/20/2013 09/20/2013 documented as of this encounter (statuses as of 06/01/2022) [facility] History of Past illness Narrative* Problem Noted Date Resolved Date Hemorrhoids 08/03/2013 09/20/2013 Last Assessment & Plan: Patient had her hemorrhoidectomy done and she feels a lot of pain relief. Pruritus ani 04/20/2013 09/20/2013 documented as of this encounter (statuses as of 06/04/2022) [place] [address]-02-2014 History of Past illness Narrative* Problem Noted Date Resolved Date Hemorrhoids 08/03/2013 09/20/2013 Last Assessment & Plan: Patient had her hemorrhoidectomy done and she feels a lot of pain relief. Pruritus ani 04/20/2013 09/20/2013 documented as of this encounter (statuses as of 06/24/2022) [facility] History of Past illness Narrative* Problem Noted Date Resolved Date Hemorrhoids 08/03/2013 09/20/2013 Last Assessment & Plan: Patient had her hemorrhoidectomy done and she feels a lot of pain relief. Pruritus ani 04/20/2013 09/20/2013 documented as of this encounter (statuses as of 06/25/2022) [facility] History of Past illness Narrative* Problem Noted Date Resolved Date Hemorrhoids 08/03/2013 09/20/2013 Last Assessment & Plan: Patient had her hemorrhoidectomy done and she feels a lot of pain relief. Pruritus ani 04/20/2013 09/20/2013 documented as of this encounter (statuses as of 07/23/2022) [facility] History of Past illness Narrative* Problem Noted Date Resolved Date Hemorrhoids 08/03/2013 09/20/2013 Last Assessment & Plan: Patient had her hemorrhoidectomy done and she feels a lot of pain relief. Pruritus ani 04/20/2013 09/20/2013 documented as of this encounter (statuses as of 08/05/2022) [place] [address]-02-2014 History of Past illness Narrative* Problem Noted Date Resolved Date Hemorrhoids 08/03/2013 09/20/2013 Last Assessment & Plan: Patient had her hemorrhoidectomy done and she feels a lot of pain relief. Pruritus ani 04/20/2013 09/20/2013 documented as of this encounter (statuses as of 08/15/2022) [address]02-2014 History of Past illness Narrative* Problem Noted Date Resolved Date Hemorrhoids 08/03/2013 09/20/2013 Last Assessment & Plan: Patient had her hemorrhoidectomy done and she feels a lot of pain relief. Pruritus ani 04/20/2013 09/20/2013 documented as of this encounter (statuses as of 08/28/2022) [address]02-2014 History of Past illness Narrative* Problem Noted Date Resolved Date Hemorrhoids 08/03/2013 09/20/2013 Last Assessment & Plan: Patient had her hemorrhoidectomy done and she feels a lot of pain relief. Pruritus ani 04/20/2013 09/20/2013 documented as of this encounter (statuses as of 09/10/2022) [place] [address]-02-2014 History of Past illness Narrative* Problem Noted Date Resolved Date Hemorrhoids 08/03/2013 09/20/2013 Last Assessment & Plan: Patient had her hemorrhoidectomy done and she feels a lot of pain relief. Pruritus ani 04/20/2013 09/20/2013 documented as of this encounter (statuses as of 09/10/2022) [place] [address]-02-2014 History of Past illness Narrative* Problem Noted Date Resolved Date Hemorrhoids 08/03/2013 09/20/2013 Last Assessment & Plan: Patient had her hemorrhoidectomy done and she feels a lot of pain relief. Pruritus ani 04/20/2013 09/20/2013 documented as of this encounter (statuses as of 10/20/2022) [facility] History of Past illness Narrative* Problem Noted Date Resolved Date Hemorrhoids 08/03/2013 09/20/2013 Last Assessment & Plan: Patient had her hemorrhoidectomy done and she feels a lot of pain relief. Pruritus ani 04/20/2013 09/20/2013 documented as of this encounter (statuses as of 10/27/2022) [facility] History of Past illness Narrative* Problem Noted Date Diagnosed Date Resolved Date Hemorrhoids 08/03/2013 09/20/2013 Last Assessment & Plan: Patient had her hemorrhoidectomy done and she feels a lot of pain relief. Pruritus ani 04/20/2013 09/20/2013 documented as of this encounter (statuses as of 11/13/2022) [facility] History of Past illness Narrative* Problem Noted Date Diagnosed Date Resolved Date Hemorrhoids 08/03/2013 09/20/2013 Last Assessment & Plan: Patient had her hemorrhoidectomy done and she feels a lot of pain relief. Pruritus ani 04/20/2013 09/20/2013 documented as of this encounter (statuses as of 12/17/2022) [facility] History of Past illness Narrative* Problem Noted Date Diagnosed Date Resolved Date Hemorrhoids 08/03/2013 09/20/2013 Last Assessment & Plan: Patient had her hemorrhoidectomy done and she feels a lot of pain relief. Pruritus ani 04/20/2013 09/20/2013 documented as of this encounter (statuses as of 12/24/2022) [facility] History of Past illness Narrative* Problem Noted Date Diagnosed Date Resolved Date Hemorrhoids 08/03/2013 09/20/2013 Last Assessment & Plan: Patient had her hemorrhoidectomy done and she feels a lot of pain relief. Pruritus ani 04/20/2013 09/20/2013 documented as of this encounter (statuses as of 01/19/2023) [facility] History of Past illness Narrative* Problem Noted Date Diagnosed Date Resolved Date Hemorrhoids 08/03/2013 09/20/2013 Last Assessment & Plan: Patient had her hemorrhoidectomy done and she feels a lot of pain relief. Pruritus ani 04/20/2013 09/20/2013 documented as of this encounter (statuses as of 01/20/2023) [facility] History of Past illness Narrative* Problem Noted Date Diagnosed Date Resolved Date Hemorrhoids 08/03/2013 09/20/2013 Last Assessment & Plan: Patient had her hemorrhoidectomy done and she feels a lot of pain relief. Pruritus ani 04/20/2013 09/20/2013 documented as of this encounter (statuses as of 02/18/2023) [facility] History of Past illness Narrative* Problem Noted Date Diagnosed Date Resolved Date Hemorrhoids 08/03/2013 09/20/2013 Last Assessment & Plan: Patient had her hemorrhoidectomy done and she feels a lot of pain relief. Pruritus ani 04/20/2013 09/20/2013 documented as of this encounter (statuses as of 02/25/2023) [facility] History of Past illness Narrative* Problem Noted Date Diagnosed Date Resolved Date Hemorrhoids 08/03/2013 09/20/2013 Last Assessment & Plan: Patient had her hemorrhoidectomy done and she feels a lot of pain relief. Pruritus ani 04/20/2013 09/20/2013 documented as of this encounter (statuses as of 03/13/2023) [facility] History of Past illness Narrative* Problem Noted Date Diagnosed Date Resolved Date Hemorrhoids 08/03/2013 09/20/2013 Last Assessment & Plan: Patient had her hemorrhoidectomy done and she feels a lot of pain relief. Pruritus ani 04/20/2013 09/20/2013 documented as of this encounter (statuses as of 03/14/2023) [facility] History of Past illness Narrative* Problem Noted Date Diagnosed Date Resolved Date Hemorrhoids 08/03/2013 09/20/2013 Last Assessment & Plan: Patient had her hemorrhoidectomy done and she feels a lot of pain relief. Pruritus ani 04/20/2013 09/20/2013 documented as of this encounter (statuses as of 03/14/2023) [facility] History of Past illness Narrative* Problem Noted Date Diagnosed Date Resolved Date Hemorrhoids 08/03/2013 09/20/2013 Last Assessment & Plan: Patient had her hemorrhoidectomy done and she feels a lot of pain relief. Pruritus ani 04/20/2013 09/20/2013 documented as of this encounter (statuses as of 03/23/2023) [facility] History of Past illness Narrative* Problem Noted Date Diagnosed Date Resolved Date Hemorrhoids 08/03/2013 09/20/2013 Last Assessment & Plan: Patient had her hemorrhoidectomy done and she feels a lot of pain relief. Pruritus ani 04/20/2013 09/20/2013 documented as of this encounter (statuses as of 03/24/2023) [facility] History of Past illness Narrative* Problem Noted Date Diagnosed Date Resolved Date Hemorrhoids 08/03/2013 09/20/2013 Last Assessment & Plan: Patient had her hemorrhoidectomy done and she feels a lot of pain relief. Pruritus ani 04/20/2013 09/20/2013 documented as of this encounter (statuses as of 03/24/2023) [facility] History of Past illness Narrative* Problem Noted Date Diagnosed Date Resolved Date Hemorrhoids 08/03/2013 09/20/2013 Last Assessment & Plan: Patient had her hemorrhoidectomy done and she feels a lot of pain relief. 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) Arthrodesis status Adverse effect of treatment, initial encounter Closed stable burst fracture of third thoracic vertebra with routine healing, subsequent encounter [facility] Diagnosis Age-related osteoporosis with current pathological fracture with routine healing, subsequent encounter- Primary 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) Arthrodesis status Adverse effect of treatment, initial encounter Closed stable burst fracture of third thoracic vertebra with routine healing, subsequent encounter Age-related osteoporosis with current pathological fracture, vertebra(e), initial encounter for fracture (HCC) [facility] Diagnosis Vitamin D deficiency- Primary [...] (HCC) Hyperparathyroidism, unspecified [facility] Diagnosis Closed stable burst fracture of third thoracic vertebra with routine healing, subsequent encounter- Primary documented in this encounter [facility] note* Diagnosis Age-related osteoporosis with current pathological fracture with routine healing, subsequent encounter- Primary [facility] Diagnosis Age-related osteoporosis with current pathological fracture with routine healing, subsequent encounter- Primary [facility] Diagnosis Closed stable burst fracture of third thoracic vertebra with routine healing, subsequent encounter- Primary Spinal stenosis of cervical region Spinal stenosis in cervical region Arthrodesis status [facility] Diagnosis Age-related osteoporosis with current pathological fracture with routine healing, subsequent encounter- Primary documented in this encounter [facility] note* Diagnosis 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- Primary documented in this encounter [facility] note* Diagnosis 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 [facility] Diagnosis Closed stable burst fracture of third thoracic vertebra with routine healing, subsequent encounter- Primary documented in this encounter [facility] note* Diagnosis 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- Primary documented in this encounter [facility] for referral (narrative)* Outpatient Procedure (Routine) - Pending Review Specialty Diagnoses / Procedures Referred By Sophia leonardo Referred To [facility] Diagnoses Radiculopathy, cervical region Procedures EMG(NEURO/NI) NERVE CONDUCTION STUDIES 9-10 STUDIES Mayur Cao MD [address] [facility] [address] [place] [address] Neu[facility] [place] [address] [place] [address] Referral ID Status Reason Start Date Expiration Date Visits Requested Visits Authorized [id number] Pending Review Auto-Generat ed Referral 02/07/2022 02/07/2023 1 1 [facility] for referral (narrative)* Diagnostic Procedure Only (Routine) - Closed Specialty Diagnoses / Procedures Referred By Contac t Referred To Contact XR IMAGING Diagnoses Cervicalgia Arthrodesis status Adverse effect of treatment, initial encounter Procedures XR CERV GENERAL 2V AP/LAT RADEX SPINE CERVICAL 2 OR 3 VIEWS Adrián Pulido PA-C [address] [place] [address] Xr Imaging Referral ID Status Reason Start Date Expiration Date V isits Requested Visits Authorized [id number] Closed Auto-Generate d Referral 04/17/2022 05/17/2023 1 1 * MRI/CT (Routine) - Authorized Specialty Diagnoses / Procedures Referred By Contac t Referred To Contact MR IMAGING Diagnoses Arthrodesis status Adverse effect of treatment, initial encounter Procedures MRI THORACIC SPINE WO/W IVCON MRI SPINAL CANAL THORACIC W/O & W/CONTR RANDYL Adrián Pulido PA-C [address] [place] [address] Mr Imaging Referral ID Status Reason Start Date Expiration Date Visits Requested Visits Authorized [id number] Authorized Auto-Generat ed Referral 2 05/17/2023 1 1 * MRI/CT (Routine) - Authorized Specialty Diagnoses / Procedures Referred By Contac t Referred To Contact MR IMAGING Diagnoses Cervicalgia Arthrodesis status Adverse effect of treatment, initial encounter Procedures MRI CERVICAL SPINE WO/W IVCON MRI SPINAL CANAL CERVICAL W/O & W/CONTR Adrián Nolasco PA-C [address] [place] [address] Mr Imaging Referral ID Status Reason Start Date Expiration Date Visits Requested Visits Authorized [id number] Authorized Auto-Generat ed Referral 2 05/17/2023 1 1 * - Authorized Specialty Diagnoses / Procedures Referred By Contac t Referred To Contact Diagnoses Cervicalgia Arthrodesis status Adverse effect of treatment, initial encounter Procedures CONSULT TO PHYSICAL THERAPY Adrián Pulido PA-C [address] [place] [address] Referral ID Status Reason Start Date Expiration Date V isits Requested Visits Authorized [id number] Authorized 04/17/2022 07/16/2022 99 99 * Diagnostic Procedure Only (Routine) - Closed Specialty Diagnoses / Procedures Referred By Contac t Referred To Contact XR IMAGING Diagnoses Cervicalgia Arthrodesis status Adverse effect of treatment, initial encounter Procedures XR CERV OTHER 4V AP/LAT/FLX/EXT RADEX SPINE CERVICAL 4 OR 5 VIEWS Adrián Pulido PA-C [address] [place] [address] Xr Imaging Referral ID Status Reason Start Date Expiration Date V isits Requested Visits Authorized [id number] Closed Auto-Generate d Referral 04/17/2022 05/17/2023 1 1 [facility] for referral (narrative)* Diagnostic Procedure Only (Routine) - Pending Review Specialty Diagnoses / Procedures Referred By Contac t Referred To Contact XR IMAGING Diagnoses Age-related osteoporosis with current pathological fracture with routine healing, subsequent encounter Procedures XR LUMBAR GENERAL 3V AP/LAT/L5-S1 RADEX SPINE LUMBOSACRAL 2/3 VIEWS Leslie Hackett MD [address] [place] [address] Xr Imaging Referral ID Status Reason Start Date Expiration Date Visits Requested Visits Authorized [id number] Pending Review Auto-Generat ed Referral 07/23/2022 08/22/2023 1 1 [facility] for referral (narrative)* Diagnostic Procedure Only (Routine) - Pending Review Specialty Diagnoses / Procedures Referred By Contac t Referred To Contact XR IMAGING Diagnoses Age-related osteoporosis with current pathological fracture with routine healing, subsequent encounter Other specified disorders of bone density and structure, unspecified site Procedures DXA-FOREARM SKELETON DXA BONE DENSITY STUDY 1/>SITES APPENDICLR Leslie Martini MD [address] [place] [address] Xr Imaging Referral ID Status Reason Start Date Expiration Date Visits Requested Visits Authorized [id number] Pending Review Auto-Generat ed Referral 10/17/2022 10/10/2023 1 1 [facility] Diagnostic Procedure Only (Routine) - Closed Specialty Diagnoses / Procedures Referred By Contac t Referred To Contact XR IMAGING Diagnoses Closed stable burst fracture of third thoracic vertebra with routine healing, subsequent encounter Procedures XR SHOULDER LIMITED 2V AP/TRUE AP LEFT RADEX SHOULDER COMPLETE MINIMUM 2 [place] [address] [place] [address] Xr Imaging Referral ID Status Reason Start Date Expiration Date V isits Requested Visits Authorized [id number] Closed Auto-Generate d Referral 10/20/2022 11/19/2023 1 1 * Medication Prior Authorization - Authorized Specialty Diagnoses / Procedures Referred By Contac [place] [address] [place] [address] Referral ID Status Reason Start Date Expiration Date V isits Requested Visits Authorized [id number] Authorized 09/20/2022 10/20/2023 1 1 [facility] Instructions Instruction Description Start Date Completed [...] THORACIC W/O & W/CONTR Adrián Nolasco PA-C [address] [place] [address] Mr Imaging Referral ID Status Reason Start Date Expiration Date V isits Requested Visits Authorized [id number] Closed Auto-Generate d Referral 04/17/2022 05/17/2023 1 1 Specialty Diagnoses / Procedures Referred By Contac t Referred To Contact MR IMAGING Diagnoses Cervicalgia Arthrodesis status Adverse effect of treatment, initial encounter Procedures MRI CERVICAL SPINE WO/W IVCON MRI SPINAL CANAL CERVICAL W/O & W/CONTR Adrián Nolasco PA-C [address] [place] [address] Mr Imaging Referral ID Status Reason Start Date Expiration Date V isits Requested Visits Authorized [id number] Closed Auto-Generate d Referral 04/17/2022 05/17/2023 1 1 Specialty Diagnoses / Procedures Referred By Contac t Referred To Contact Neurosurgery Diagnoses Fusion of spine of cervicothoracic region Arthrodesis status Adverse effect of treatment, initial encounter Closed stable burst fracture of third thoracic vertebra with routine healing, subsequent encounter Procedures CONSULT TO NEUROSURGERY OFFICE/OUTPATIENT [facility] 60-74 MINUTES Adrián Pulido PA-C [address] [place] [address] Referral ID Status Reason Start Date Expiration Date Visits Requested Visits Authorized [id number] Authorized PCP Requested Referral 06/04/2022 09/02/2022 1 1 Specialty Diagnoses / Procedures Referred By Contac t Referred To Contact Diagnoses Age-related osteoporosis with current pathological fracture with routine healing, subsequent encounter Procedures CONSULT TO ENDO METABOLIC BONE OFFICE/OUTPATIENT [facility] 60-[place] [address] [place] [address] Referral ID Status Reason Start Date Expiration Date Visits Requested Visits Authorized [id number] Authorized PCP Requested Referral 06/23/2022 06/23/2023 1 1 Specialty Diagnoses / Procedures Referred By Contac t Referred To Contact Diagnoses Age-related osteoporosis with current pathological fracture with routine healing, subsequent encounter Abnormal SPEP Procedures CONSULT TO HEMATOLOGY/ONCOLOGY OFFICE/OUTPATIENT [facility] 60-74 MINUTES Leslie Hackett MD [address] [place] [address] Referral ID Status Reason Start Date Expiration Date Visits Requested Visits Authorized [id number] Authorized PCP Requested Referral 08/05/2022 08/05/2023 1 1 Specialty Diagnoses / Procedures Referred By Contac t Referred To Contact CT IMAGING Diagnoses Arthrodesis status Procedures CT THORACIC SPINE WO IVCON CT THORACIC SPINE W/[place] [address] [place] [address] Ct Imaging [facility] Referral ID Status Reason Start Date Expiration Date Visits Requested Visits Authorized [id number] Authorized Auto-Generat ed Referral 01/19/2023 02/18/2024 1 1 Specialty Diagnoses / Procedures Referred By Contac t Referred To Contact CT IMAGING Diagnoses Spinal stenosis of cervical region Procedures CT CERVICAL SPINE WO IVCON CT CERVICAL SPINE W/[place] [address] [place] [address] Ct Imaging [place] [address] Referral ID Status Reason Start Date Expiration Date Visits Requested Visits Authorized [id number] Authorized Auto-Generat ed Referral 01/19/2023 02/18/2024 1 1 Specialty Diagnoses / Procedures Referred By Contac t Referred To Contact CT IMAGING Diagnoses 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 Procedures CT CHEST W IVCON DIAGNOSTIC COMPUTED TOMOGRAPHY THORAX W/[place] [address] [place] [address] [place] [address] Referral ID Status Reason Start Date Expiration Date Visits Requested Visits Authorized [id number] Authorized Auto-Generat ed Referral 3 03/26/2024 1 1 Specialty Diagnoses / Procedures Referred By Sophia leonardo Referred To Contact CT IMAGING Diagnoses 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 Procedures CT ABD/PEL W IVCON CT ABD & PELVIS W/[place] [address] [place] [address] [place] [address] Referral ID Status Reason Start Date Expiration Date Visits Requested Visits Authorized [id number] Authorized Auto-Generat ed Referral 3 03/26/2024 1 [...] DATE CREATED AUTHOR AUTHOR'S ORGANIZ ATION 05/31/2022 [facility] DATE CREATED AUTHOR AUTHOR'S ORGANIZ ATION 10/25/2022 [facility] DATE CREATED AUTHOR AUTHOR'S ORGANIZ ATION 10/27/2022 [facility] DATE CREATED AUTHOR AUTHOR'S ORGANIZ ATION 12/03/2022 [facility] DATE CREATED AUTHOR AUTHOR'S JOSE C ATION 05/28/2023 [facility] Comments (unrecognize d section and content) In the event this informatio n is protected by the Federal Confidentiality of Alcohol and Drug Abuse Patient Records regulations: The Federal rules restrict any use of the information to criminally investigate or prosecute any alcohol or drug abuse patient.[facility] the event this information is protected by the Federal Confidentiality of Alcohol and Drug Abuse Patient Records regulations: The Federal rules restrict any use of the information to criminally investigate or prosecute any alcohol or drug abuse patient.[facility] the event this information is protected by the Federal Confidentiality of Alcohol and Drug Abuse Patient Records regulations: The Federal rules restrict any use of the information to criminally investigate or prosecute any alcohol or drug abuse patient.[facility] the event this information is protected by the Federal Confidentiality of Alcohol and Drug Abuse Patient Records regulations: The Federal rules restrict any use of the information to criminally investigate or prosecute any alcohol or drug abuse patient.[facility] the event this information is protected by the Federal Confidentiality of Alcohol and Drug Abuse Patient Records regulations: The Federal rules restrict any use of the information to criminally investigate or prosecute any alcohol or drug abuse patient.[facility] the event this information is protected by the Federal Confidentiality of Alcohol and Drug Abuse Patient Records regulations: The Federal rules restrict any use of the information to criminally investigate or prosecute any alcohol or drug abuse patient.[facility] the event this information is protected by the Federal Confidentiality of Alcohol and Drug Abuse Patient Records regulations: The Federal rules restrict any use of the information to criminally investigate or prosecute any alcohol or drug abuse patient.[facility] the event this information is protected by the Federal Confidentiality of Alcohol and Drug Abuse Patient Records regulations: The Federal rules restrict any use of the information to criminally investigate or prosecute any alcohol or drug abuse patient.[facility] HospitalIn the event this information is protected by the Federal Confidentiality of Alcohol and Drug Abuse Patient Records regulations: The Federal rules restrict any use of the information to criminally investigate or prosecute any alcohol or drug abuse patient.[facility] HospitalIn the event this information is protected by the Federal Confidentiality of Alcohol and Drug Abuse Patient Records regulations: The Federal rules restrict any use of the information to criminally investigate or prosecute any alcohol or drug abuse patient.[facility] HospitalIn the event this information is protected by the Federal Confidentiality of Alcohol and Drug Abuse Patient Records regulations: The Federal rules restrict any use of the information to criminally investigate or prosecute any alcohol or drug abuse patient.[facility] HospitalIn the event this information is protected by the Federal Confidentiality of Alcohol and Drug Abuse Patient Records regulations: The Federal rules restrict any use of the information to criminally investigate or prosecute any alcohol or drug abuse patient.[facility] HospitalIn the event this information is protected by the Federal Confidentiality of Alcohol and Drug Abuse Patient Records regulations: The Federal rules restrict any use of the information to criminally investigate or prosecute any alcohol or drug abuse patient.[facility] HospitalIn the event this information is protected by the Federal Confidentiality of Alcohol and Drug Abuse Patient Records regulations: The Federal rules restrict any use of the information to criminally investigate or prosecute any alcohol or drug abuse patient.[facility] HospitalIn the event this information is protected by the Federal Confidentiality of Alcohol and Drug Abuse Patient Records regulations: The Federal rules restrict any use of the information to criminally investigate or prosecute any alcohol or drug abuse patient.[facility] HospitalIn the event this information is protected by the Federal Confidentiality of Alcohol and Drug Abuse Patient Records regulations: The Federal rules restrict any use of the information to criminally investigate or prosecute any alcohol or drug abuse patient.[facility] HospitalIn the event this information is protected by the Federal Confidentiality of Alcohol and Drug Abuse Patient Records regulations: The Federal rules restrict any use of the information to criminally investigate or prosecute any alcohol or drug abuse patient.[facility] HospitalIn the event this information is protected by the Federal Confidentiality of Alcohol and Drug Abuse Patient Records regulations: The Federal rules restrict any use of the information to criminally investigate or prosecute any alcohol or drug abuse patient.[facility] HospitalIn the event this information is protected by the Federal Confidentiality of Alcohol and Drug Abuse Patient Records regulations: The Federal rules restrict any use of the information to criminally investigate or prosecute any alcohol or drug abuse patient.[facility] HospitalIn the event this information is protected by the Federal Confidentiality of Alcohol and Drug Abuse Patient Records regulations: The Federal rules restrict any use of the information to criminally investigate or prosecute any alcohol or drug abuse patient.[facility] HospitalIn the event this information is protected by the Federal Confidentiality of Alcohol and Drug Abuse Patient Records regulations: The Federal rules restrict any use of the information to criminally investigate or prosecute any alcohol or drug abuse patient.[facility] HospitalIn the event this information is protected by the Federal Confidentiality of Alcohol and Drug Abuse Patient Records regulations: The Federal rules restrict any use of the information to criminally investigate or prosecute any alcohol or drug abuse patient.[facility] HospitalIn the event this information is protected by the Federal Confidentiality of Alcohol and Drug Abuse Patient Records regulations: The Federal rules restrict any use of the information to criminally investigate or prosecute any alcohol or drug abuse patient.[facility] HospitalIn the event this information is protected by the Federal Confidentiality of Alcohol and Drug Abuse Patient Records regulations: The Federal rules restrict any use of the information to criminally investigate or prosecute any alcohol or drug abuse patient.[facility] HospitalIn the event this information is protected by the Federal Confidentiality of Alcohol and Drug Abuse Patient Records regulations: The Federal rules restrict any use of the information to criminally investigate or prosecute any alcohol or drug abuse patient.[facility] HospitalIn the event this information is protected by the Federal Confidentiality of Alcohol and Drug Abuse Patient Records regulations: The Federal rules restrict any use of the information to criminally investigate or prosecute any alcohol or drug abuse patient.[facility] HospitalIn the event this information is protected by the Federal Confidentiality of Alcohol and Drug Abuse Patient Records regulations: The Federal rules restrict any use of the information to criminally investigate or prosecute any alcohol or drug abuse patient.[facility] HospitalIn the event this information is protected by the Federal Confidentiality of Alcohol and Drug Abuse Patient Records regulations: The Federal rules restrict any use of the information to criminally investigate or prosecute any alcohol or drug abuse patient.[facility] HospitalIn the event this information is protected by the Federal Confidentiality of Alcohol and Drug Abuse Patient Records regulations: The Federal rules restrict any use of the information to criminally investigate or prosecute any alcohol or drug abuse patient.[facility] HospitalIn the event this information is protected by the Federal Confidentiality of Alcohol and Drug Abuse Patient Records regulations: The Federal rules restrict any use of the information to criminally investigate or prosecute any alcohol or drug abuse patient.[facility] HospitalIn the event this information is protected by the Federal Confidentiality of Alcohol and Drug Abuse Patient Records regulations: The Federal rules restrict any use of the information to criminally investigate or prosecute any alcohol or drug abuse patient.[facility] HospitalIn the event this information is protected by the Federal Confidentiality of Alcohol and Drug Abuse Patient Records regulations: The Federal rules restrict any use of the information to criminally investigate or prosecute any alcohol or drug abuse patient.[facility] HospitalIn the event this information is protected by the Federal Confidentiality of Alcohol and Drug Abuse Patient Records regulations: The Federal rules restrict any use of the information to criminally investigate or prosecute any alcohol or drug abuse patient.[facility] HospitalIn the event this information is protected by the Federal Confidentiality of Alcohol and Drug Abuse Patient Records regulations: The Federal rules restrict any use of the information to criminally investigate or prosecute any alcohol or drug abuse patient.[facility] Reason for Visit (unrecogniz ed section and content) Reason Comments Neurologic Problem Burning feeling down entire right side of body, PCP called it neuropathy. Does have nerve problems with previous surgeries. Reason Onset Date Comments EMG 02/28/2022 Specialty Diagnoses / Procedures Referred By Contac t Referred To Contact [facility] Diagnoses Radiculopathy, cervical region Procedures EMG(NEURO/NI) NERVE CONDUCTION STUDIES 9-10 STUDIES Mayur Cao MD [address] [place] [address] Neurological [place] [address] [place] [address] Referral ID Status Reason Start Date Expiration Date V isits Requested Visits Authorized [id number] Closed Auto-Generate d Referral 02/07/2022 02/07/2023 1 1 Reason Comments [facility] Surgery clearance Reason Comments Medication Problem Reason Comments New Patient Neck Pain Specialty Diagnoses / Procedures Referred By Contac t Referred To Contact MR IMAGING Diagnoses Arthrodesis status Adverse effect of treatment, initial encounter Procedures MRI THORACIC SPINE WO/W IVCON MRI SPINAL CANAL THORACIC W/O & W/CONTR Adrián Nolasco PA-C [address] [place] [address] Mr Imaging Referral ID Status Reason Start Date Expiration Date V isits Requested Visits Authorized [id number] Closed Auto-Generate d Referral 04/17/2022 05/17/2023 1 1 Specialty Diagnoses / Procedures Referred By Contac t Referred To Contact MR IMAGING Diagnoses Cervicalgia Arthrodesis status Adverse effect of treatment, initial encounter Procedures MRI CERVICAL SPINE WO/W IVCON MRI SPINAL CANAL CERVICAL W/O & W/CONTR Adrián Nolasco PA-C [address] [place] [address] Mr Imaging Referral ID Status Reason Start Date Expiration Date V isits Requested Visits Authorized [id number] Closed Auto-Generate d Referral 04/17/2022 05/17/2023 1 [...] HIGH MDM 60-74 MINUTES Adrián Pulido PA-C [address] [place] [address] Referral ID Status Reason Start Date Expiration Date V isits Requested Visits Authorized [id number] Closed PCP Requested Referral 06/04/2022 09/02/2022 1 1 Reason Comments Consult Specialty Diagnoses / Procedures Referred By Contac t Referred To Contact Diagnoses Age-related osteoporosis with current pathological fracture with routine healing, subsequent encounter Procedures CONSULT TO ENDO METABOLIC BONE OFFICE/OUTPATIENT [facility] 60-[place] [address] [place] [address] Referral ID Status Reason Start Date Expiration Date V isits Requested Visits Authorized [id number] Closed PCP Requested Referral 06/23/2022 06/23/2023 1 1 Reason Comments Results Specialty Diagnoses / Procedures Referred By Contac t Referred To Contact Diagnoses Age-related osteoporosis with current pathological fracture with routine healing, subsequent encounter Abnormal SPEP Procedures CONSULT TO HEMATOLOGY/ONCOLOGY OFFICE/OUTPATIENT [facility] 60-74 MINUTES Leslie Hackett MD [address] [place] [address] Referral ID Status Reason Start Date Expiration Date V isits Requested Visits Authorized [id number] Closed PCP Requested Referral 08/05/2022 08/05/2023 1 [...] COMPUTED TOMOGRAPHY THORAX W/[place] [address] [place] [address] [place] [address] Referral ID Status Reason Start Date Expiration Date V isits Requested Visits Authorized [id number] Closed Auto-Generate d Referral 02/25/2023 03/26/2024 1 [address] Specialty Diagnoses / Procedures Referred By Contac t Referred To Contact CT IMAGING Diagnoses 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 Procedures CT CHEST W IVCON DIAGNOSTIC COMPUTED TOMOGRAPHY THORAX W/[place] [address] [place] [address] [place] [address] Reason Comments Closed stable burst frature of third tho racic vertebra with Reason Comments Established Patient Care Teams (unrecognized sec tion and content) School Bus Aide Relationship Specialty Start Date End Date Francisco Ferrari MD [address] [place] [address] PCP - General Family Medicine 05/31/19 School Bus Aide Relationship Specialty Start Date End Date Francisco Ferrari MD [address] [place] [address] PCP - General Family Medicine 05/31/19 School Bus Aide Relationship Specialty Start Date End Date Francisco Ferrari MD [address] [place] [address] PCP - General Family Medicine 05/31/19 School Bus Aide Relationship Specialty Start Date End Date Francisco Ferrari MD [address] [place] [address] PCP - General Family Medicine 05/31/19 School Bus Aide Relationship Specialty Start Date End Date Francisco Ferrari MD [address] [place] [address] PCP - General Family Medicine 05/31/19 School Bus Aide Relationship Specialty Start Date End Date Francisco Ferrari MD [address] [place] [address] PCP - General Family Medicine 05/31/19 School Bus Aide Relationship Specialty Start Date End Date Francisco Ferrari MD [address] [place] [address] PCP - General Family Medicine 05/31/19 School Bus Aide Relationship Specialty Start Date End Date Francisco Ferrari MD [address] [place] [address] PCP - General Family Medicine 05/31/19 School Bus Aide Relationship Specialty Start Date End Date Mike Hopper, DO [address] [place] [address] PCP - General Family Medicine 06/24/22 School Bus Aide Relationship Specialty Start Date End Date Mike Hopper, DO [address] [place] [address] PCP - General Family Medicine 06/24/22 School Bus Aide Relationship Specialty Start Date End Date Mike Hopper, DO [address] [facility] [address] [place] [address] PCP - General Family Medicine 06/24/22 School Bus Aide Relationship Specialty Start Date End Date Mike Hopper, DO [address] [facility] [address] [place] [address] PCP - General Family Medicine 06/24/22 School Bus Aide Relationship Specialty Start Date End Date Mike Hopper, DO [address] [place] [address] PCP - General Family Medicine 06/24/22 School Bus Aide Relationship Specialty Start Date End Date Mike Hopper, DO [address] [place] [address] PCP - General Family Medicine 06/24/22 School Bus Aide Relationship Specialty Start Date End Date Mike Hopper, DO [address] [place] [address] PCP - General Family Medicine 06/24/22 School Bus Aide Relationship Specialty Start Date End Date Mike Hopper, DO [address] [place] [address] PCP - General Family Medicine 06/24/22 School Bus Aide Relationship Specialty Start Date End Date Mike Hopper, [address] [place] [address] PCP - General Family Medicine 06/24/22 School Bus Aide Relationship Specialty Start Date End Date Mike Hopper, DO [address] [place] [address] PCP - General Family Medicine 06/24/22 School Bus Aide Relationship Specialty Start Date End Date Mike Hopper, DO [address] [place] [address] PCP - General Family Medicine 06/24/22 School Bus Aide Relationship Specialty Start Date End Date Mike Hopper, DO [address] [place] [address] PCP - General Family Medicine 06/24/22 School Bus Aide Relationship Specialty Start Date End Date Mike Hopper, [address] [place] [address] PCP - General Family Medicine 06/24/22 School Bus Aide Relationship Specialty Start Date End Date Mike Hopper, DO [address] [place] [address] PCP - General Family Medicine 06/24/22 School Bus Aide Relationship Specialty Start Date End Date Mike Hopper, DO [address] [place] [address] PCP - General Family Medicine 06/24/22 School Bus Aide Relationship Specialty Start Date End Date Mike Hopper DO [address] [place] [address] PCP - General Family Medicine 06/24/22 Wisam Mills MD [address] [place] [address] Hematology/Oncology 02/25/23 School Bus Aide Relationship Specialty Start Date End Date Mike Hopper DO [address] [place] [address] PCP - General Family Medicine 06/24/22 Wisam Mills MD [address] [place] [address] Hematology/Oncology 02/25/23 School Bus Aide Relationship Specialty Start Date End Date Mike Hopper DO [address] [place] [address] PCP - General Family Medicine 06/24/22 Wisam Mills MD [address] [place] [address] Hematology/Oncology 02/25/23 School Bus Aide Relationship Specialty Start Date End Date Mike Hopper DO [address] [place] [address] PCP - General Family Medicine 06/24/22 Wisam Mills MD [address] [place] [address] Hematology/Oncology 02/25/23 School Bus Aide Relationship Specialty Start Date End Date Mike Hopper DO [address] [facility] [address] [place] [address] PCP - General Family Medicine 06/24/22 Wisam Mills MD [address] [place] [address] Hematology/Oncology 02/25/23 School Bus Aide Relationship Specialty Start Date End Date Mike Hopper DO [address] [facility] [address] [place] [address] PCP - General Family Medicine 06/24/22 Wisam Mills MD [address] [place] [address] Hematology/Oncology 02/25/23 School Bus Aide Relationship Specialty Start Date End Date Mike Hopper DO [address] [facility] [address] [place] [address] PCP - General Family Medicine 06/24/22 Wisam Mills MD [address] [place] [address] Hematology/Oncology 02/25/23 FOR RECORDS PERTAINING TO PATIENTS [...] BE BASED ON THE PRIMARY CLINICAL RECORDS. [facility] [employer] [facility]. provides no warranty or guarantee of the accuracy or completeness of information in this document.
== END | disposition home or self-care (01) ==
PROVIDERS: PCP Nurse Practitioner Family; Referring Provider Orthopaedic Surgery Sports Medicine; Visit Provider Orthopaedic Surgery Sports Medicine
DX: M19.012 Primary osteoarthritis, left shoulder (principal)
CPT/HCPCS: 73200; 73221

== ENCOUNTER 2023-07-22 05:30 | Day surgery (SDC) | payer MEDICARE, OTHER, SELFPAY ==
--- NOTE | 2023-07-15 08:41 | EKG12_ITS ---
Test Reason : PREOP Blood Pressure : / mmHG Vent. Rate : 065 BPM Atrial Rate : 065 BPM P-R Int : 142 ms QRS Dur : 080 ms QT Int : 402 ms P-R-T Axes : 053 020 028 degrees QTc Int : 418 ms Normal sinus rhythm Normal ECG Confirmed by JESSIKA MATA, SANDIE ([id number]), acquisition editor HYUN SANDOVAL ([id number]) on 07/15/2023 1:44:04 PM Referred By: Gama Stout Confirmed By:SANDIE ROSEN MD
[2023-07-15 09:50] LABS: Prothrombin Time (Protime)PT. 13.1 SECONDS (11.7-14.9)
[2023-07-15 09:51] LABS: Partial Thromboplast Time 27.5 Seconds (24.1-36.2)
[2023-07-15 10:06] LABS: Magnesium 2.2 mg/dL (1.6-2.6)
[2023-07-15 10:09] LABS: Hemoglobin A1c 5.2 % (3.8-5.6)
[2023-07-16 08:13] LABS: Fructosamine 217 umol/L (0-285)
[2023-07-22] VITALS (9 sets, daily range): BP systolic 90–129; BP diastolic 36–77; PULSE 75–100; RESP 15–19; TEMP 36.1–36.8; O2SAT 95–100; BMI 21.7
[2023-07-22] MEDS: Lactated Ringers 1,000 ML 15 ML IV (06:12)
[2023-07-22] MEDS: Scopolamine 1mg/72hr Patch 1 PATCH TD (06:13)
[2023-07-22] MEDS: Magnesium 1 GM over 15 mins IV (06:13)
[2023-07-22] MEDS: Acetaminophen 500 MG Tablet 1000 MG PO (06:13)
[2023-07-22] MEDS: Gabapentin 600 MG Tablet PO (06:13)
[2023-07-22 06:19] LABS: Bedside Glucose 89 mg/dL (74-106)
--- NOTE | 2023-07-22 07:11 | PCM.HP.STD ---
HPI - General HPI Narrative DOUG REYES, is a 72 F who presents for left reverse total shoulder arthroplasty. no changes to h and p. left shoulder marked, ok to proceed. rab, narcotic counselling and post op instructions given. plan for block. consent updated. MR#: [id number] Acct: [id number] Name: DOUG REYES Rep #: [id number] : 1950 Provider: Dr. Gama Stout MD Age/Sex: 72/F [place] [facility] [place] Status: Signed Intake Vital Signs 10/21/2309:20 Height 4 ft 10 in Intake Visit Reasons: LEFT SHOULDER Accompanied by: Self Allergies grass pollen Allergy (Intermediate, Verified 06/08/23 08:44) sinus issues Medications multivitamin 1 ea PO DAILY supplement 07/03/17 [History Confirmed 06/08/23] cholecalciferol (vitamin D3) 125 mcg (5,000 unit) capsule 125 mcg PO DAILY supplement 02/15/21 [History Confirmed 06/08/23] fluticasone propionate 50 mcg/actuation nasal spray,suspension 2 spray intranasal PRN PRN ALLERGIES 02/15/21 [History Confirmed 06/08/23] hydroxychloroquine 200 mg tablet 200 mg PO DAILY arthritis 11/26/21 [History Confirmed 06/08/23] acetaminophen 500 mg tablet 1,000 mg (2 x 500 mg) PO Q8 #100 tabs 12/12/21 [Rx Confirmed 06/08/23] biotin 10,000 mcg capsule mcg PO 05/19/23 [History Confirmed 06/08/23] folic acid 1 mg tablet PO 05/19/23 [History Confirmed 06/08/23] methotrexate sodium 2.5 mg tablet 2.5 mg PO QWEEK 05/19/23 [History Confirmed 06/08/23] oxycodone myristate 13.5 mg capsule sprinkle extend release 12hr(DON'T CRUSH) (Xtampza ER) 13.5 mg PO BID 05/19/23 [History Confirmed 06/08/23] prednisone 10 mg tablet mg PO 05/19/23 [History Confirmed 06/08/23] romosozumab-aqqg 105 mg/1.17 mL subcutaneous syringe (Evenity) 210 mg subcut QMONTH 05/19/23 [History Confirmed 06/08/23] kpcQ-V-V3-NP-O00-[id number]-wtu-trygi pepper 100 mg-200 unit-50 mg-800 mcg tablet tab PO 05/19/23 [History Confirmed 06/08/23] PFSH Medical History Anemia Arthritis Atypical chest pain Back pain Bilateral knee pain Bleeding tendency Chronic back pain Constipation Fibromyalgia Former smoker Headache, migraine Health care maintenance History of pain when walking History of steroid therapy Knee fracture, right Muscular pain Osteoarthritis Osteoporosis Osteoporosis Patellar fracture Post-menopausal Primary osteoarthritis, left shoulder Seasonal allergies Shortness of breath Wears dentures Wears glasses Surgical History H/O shoulder replacement History of back surgery History of hip replacement, total Hx of hemorrhoidectomy Hx of neck surgery S/P cervical spinal fusion S/P cervical spinal fusion Family History Father Hypertension Arthritis CVA (cerebral vascular accident)Mother CVA (cerebral vascular accident) Hypertension Alcoholism Social History Smoking Status: Former smoker alcohol intake: never substance use type: does not use what type of physical activity do you participate in: walking frequency: daily HPI LEFT SHOULDER Details: This documentation accurately reflects the service provided and the decisions made by me, Dr. Gama Stout MD 06/08/23 08. Part of today?s visit was documented by [ ], acting as scribe. DOUG REYES is a 72 year old F here today for follow-up of a left shoulder CT and MRI results for surgical planning reverse total shoulder arthroplasty. Ortho Exam General General: Yes no acute distress Neurologic: Yes alert and Yes oriented x3 Psychologic: Yes reasonable and appropriate Left Shoulder Skin/Wound: Yes CDI, No ecchymosis, No erythema and No swelling Testing: Yes Neer's, No Speed's, No TTP Biceps, No TTP AC Joint and Yes empty can SHOULDER: active fe 70, passive 170, er 40, no lag, strength fe 4-. mild crepitus Supplemental Info [facility] Imaging Services [address] [place] [address] Extremity Upper without Contra MR#: [id number] Acct: [id number] Name: DOUG REYES Rep #: [id number] : 1950 F 72 From: Nathen Neville MD PCP: AUSTIN Woodward Status: REG CLI Study: Extremity Upper without Contra Date of Exam: 06/03/23 Exam# [id number] Ordering Dr: Gama Stout MD STUDY: CT LEFT SHOULDER REASON FOR EXAM: Female, 72 years old. For surgical planning reverse total shoulder replacement RADIATION DOSAGE (If Supplied By Facility): CTDIvol = ( 22.13 ) mGy, DLP = ( 467.21 ) mGycm TECHNIQUE: The patient was scanned in a multi detector CT scanner. High resolution transaxial imaging was performed without the administration of intravenous contrast material. Sagittal and coronal images were reconstructed. Individualized dose optimization techniques were used for this CT. COMPARISON: Left shoulder radiographs dated 04/30/2022. FINDINGS: There is glenohumeral arthrosis with joint space narrowing, marginal osteophyte formation, and subchondral sclerosis of the posterior glenoid. Intact glenoid rim, neck and visualized scapula. Intact humeral head, neck and tuberosities. There is no demonstrated acute fracture. Normal coracoid process. Normal visualized lateral clavicle. There is hypertrophic acromioclavicular arthrosis with inferior osteophyte formation, with mild effacement of the supraspinatus myotendinous junction. There is a Type II morphology (curved), with a neutral orientation. Normal visualized muscles and soft tissue structures. 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 No demonstrated acute fracture. Electronically Signed: Nathen Neville MD at 9:07 EST , [facility] Imaging Services [address] [place] [id number] Upper Ext Joint Only(Routine) MR#: [id number] Acct: [id number] Name: DOUG REYES Rep #: [id number] : 1950 F 72 From: Nathen Neville MD PCP: Ofelia العراقي, GUTTER HANGER-C Status: REG CLI Study: Upper Ext Joint Only(Routine) Date of Exam: 06/03/23 Exam# [id number] Ordering Dr: Gama Stout MD STUDY: MRI LEFT SHOULDER REASON FOR EXAM: Female, 72 years old. For surgical planning reverse total shoulder replacement. TECHNIQUE: Standardized fat and water weighted pulse sequences were obtained in all 3 orthogonal planes. COMPARISON: Left shoulder CT dated 06/03/2023. FINDINGS: There is supraspinatus, infraspinatus, and subscapularis tendinosis without a full-thickness tear. Normal teres minor tendon. Normal supraspinatus muscle. Normal infraspinatus muscle. Normal subscapularis muscle. Normal teres minor muscle. There is glenohumeral arthrosis with joint space narrowing, marginal osteophyte formation, high-grade chondromalacia, and mild subchondral marrow edema. There is overall degeneration of the glenoid labrum. There is a moderate glenohumeral joint effusion. Intact humeral head and visualized proximal humerus. There is tendinosis and medial subluxation of the long biceps tendon at the proximal bicipital groove. There is hypertrophic acromioclavicular arthrosis, with inferior osteophyte formation, with mild effacement of the supraspinatus myotendinous junction. There is a Type II morphology (curved), with a neutral orientation. There is no significant subacromial-subdeltoid bursal fluid. Normal visualized coracohumeral and coracoacromial ligaments. Normal quadrilateral space. Normal axillary space. Normal deltoid muscle. Normal trapezius muscle. MRI/Upper Ext Joint Only(Routine) IMPRESSION: Supraspinatus, infraspinatus, and subscapularis tendinosis without a full-thickness rotator cuff tear. Hypertrophic acromioclavicular arthrosis, with inferior osteophyte formation, with mild effacement of the supraspinatus myotendinous junction. Glenohumeral arthrosis with overall degeneration of the glenoid labrum. Moderate glenohumeral joint effusion. Tendinosis and medial subluxation of the long biceps tendon at the proximal bicipital groove. Electronically Signed: Nathen Neville MD at 9:04 EST , Coding Level of Care Code Off vis,est,level 3 Diagnoses Primary osteoarthritis, left shoulder M19.012 Assessment and Plan Assessment and Plan (1) Primary osteoarthritis, left shoulder: Status: Acute Plan: DOUG REYES is a 72 year old F here today for follow-up of a left shoulder CT and MRI results for surgical planning reverse total shoulder arthroplasty. She wants to go ahead with a left reverse total shoulder arthroplasty. Discussed the pros and cons risks and benefits as well as postoperative recovery 2 to 3 weeks in a sling sleeping in the sling for the first 4 weeks. 3 to 6 months of physical therapy for recovery. Pros and cons risks and benefits were discussed with the patient including but not limited to infection, pain, stiffness, bleeding, damage to surrounding structures, neurovascular injury, recurrence or retear, failure or wear of hardware or fixation, instability, fracture, deep vein thrombosis and pulmonary embolism, anesthetic risks, , patient dissatisfaction, need for further surgery and other risks. Patient understood and wished to proceed with surgery, and signed the informed consent documentation. [facility] Medical History (Updated 07/13/23 @ 14:40 by Nellie Villegas) Anemia Arthritis Back pain Bilateral knee pain Bleeding tendency Chronic back pain Constipation Fibromyalgia Former smoker Headache, migraine Health care maintenance History of pain when walking History of steroid therapy Knee fracture, right Muscular pain Osteoarthritis Osteoporosis Osteoporosis Patellar fracture Post-menopausal Primary osteoarthritis, left shoulder Rheumatoid arthritis Seasonal allergies Shortness of breath Wears dentures Wears glasses Home Medications cholecalciferol (vitamin D3) 125 mcg (5,000 unit) capsule 125 mcg PO DAILY supplement 02/15/21 [History Last Taken 07/20/23] hydroxychloroquine 200 mg tablet 200 mg PO DAILY arthritis 11/26/21 [History Last Taken 07/20/23] biotin 10,000 mcg capsule 10,000 mcg PO DAILY 05/19/23 [History Last Taken 07/20/23] folic acid 1 mg tablet 1 mg PO DAILY 05/19/23 [History Last Taken 07/20/23] methotrexate sodium 2.5 mg tablet 20 mg PO QWEEK 05/19/23 [History Last Taken 07/20/23] oxycodone myristate 13.5 mg capsule sprinkle extend release 12hr(DON'T CRUSH) (Xtampza ER) 13.5 mg PO BID 05/19/23 [History Last Taken 07/22/23] prednisone 10 mg tablet 10 mg PO PRN 05/19/23 [History Last Taken Unknown] romosozumab-aqqg 105 mg/1.17 mL subcutaneous syringe (Evenity) 210 mg subcut QMONTH 05/19/23 [History Last Taken Unknown] acetaminophen 500 mg tablet 1,000 mg PO Q8 PRN pain 07/13/23 [History Last Taken 07/21/23] turmeric (bulk) 95 % powder (Curcumin) 1 ea miscellaneous DAILY 07/13/23 [History Last Taken 07/20/23] Allergy/AdvReac Type Severity Reaction Status Date / Time grass pollen Allergy Intermediate sinus Verified 07/22/23 05:55 issues Family History Father Hypertension Arthritis CVA (cerebral vascular accident) Mother CVA (cerebral vascular accident) Hypertension Alcoholism Surgical History (Updated 07/13/23 @ 14:40 by Nellie Villegas) H/O shoulder replacement History of arthroplasty History of back surgery History of esophagogastroduodenoscopy (EGD) History of hip replacement, total Hx of hemorrhoidectomy Hx of neck surgery Hx of total hip arthroplasty S/P cervical spinal fusion S/P cervical spinal fusion Social History (Reviewed 06/08/23 @ 08:46 by Beth Chirinos Smoking Status: Former smoker alcohol intake: never substance use type: does not use what type of physical activity do you participate in: walking frequency: daily Vital Signs Vital Signs Vital Signs: 07/22/23 06:08 07/22/23 06:08 Temperature 98.1 F Temperature Source Temporal Pulse Rate 75 Respiratory Rate 16 Respiratory Pattern Normal Blood Pressure 100/36 L Blood Pressure Mean 57 Blood Pressure Source Monitor Blood Pressure Position Semi-Fowlers Blood Pressure Location Right Arm Pulse Ox 99 Oxygen Delivery Method Room Air Weight Weight: 103 lb 9.876 oz Body Mass Index (BMI) 21.7 Results Lab / Micro Data Labs: Laboratory Results - last 24 hr 07/22/23 06:01: POC Glucose 89
[2023-07-22] MEDS: Cefazolin 2 GM in 0.9% Normal Saline (100mL Bag) 100 ML IV (07:30)
--- NOTE | 2023-07-22 07:30 | BON_PTH ---
PATIENT: DOUG REYES [place] [facility] [id number] AGE/SX: 72/F ROOM: RE07/22/[address]: Dr. Gama Stout MD : 1950 BED: DIS: 07/22/2023 SPEC #: [id number] RECD: 07/22/23 12:07 STATUS: FLORES GUILLERMO #: [id number] MI: 07/22/23 07:[address]: Gama Stout DEPT: SURGICAL PATHOLOGY RECD BY: Arielle Roberts ENTERED: 07/22/23 13:18 SP TYPE: Bone OTHR DR: Ofelia العراقي, DEPUTY SHERIFF LIEUTENANT-C Tissues: Shoulder, NOS Procedures: Decalcification bone/plaque Surgery Specimen Level IV HEADER OPERATION: Left reverse total shoulder replacement PRE-OP DIAGNOSIS: Primary osteoarthritis, left shoulder TISSUE SUBMITTED: Left shoulder bone and soft tissue MICROSCOPIC DIAGNOSIS Bone and tissue of left shoulder, total shoulder resection: Severe degenerative joint disease. AM:mr 07/27/23 MICROSCOPIC DESCRIPTION Slides are reviewed. GROSS DESCRIPTION Received is one container labeled with the patient's name and designated Left shoulder bone and soft tissue. The specimen consists of a humeral head measuring 4.0 x 5.0 x 1.5 cm. No soft tissue is identified. Also present in the container is pieces of bone measuring and aggregate 3.5x3.0x1.0cm. The articular surface shows areas of erosion, eburnation and osteophyte formation. Scout Leaser sections are submitted in one cassette after decalcification. / SJ: 07/22/23 TC:5 CPT: 77608, 43137
[2023-07-22] MEDS: TXA 1000mg in NS100 100ml (IVPB at Incision) 660 MG IV (07:50)
[2023-07-22] MEDS: dexAMETHasone 10 MG/ML Vial IV (07:50)
--- NOTE | 2023-07-22 09:20 | RAD_ITS ---
STUDY: X-RAY - LEFT SHOULDER REASON FOR EXAM: Female, 72 years old. Left shoulder replacement. TECHNIQUE: 1 view(s) of the shoulder. COMPARISON: None. FINDINGS: Status post left reverse shoulder replacement. Good alignment. RAD/Shoulder min 2 Views IMPRESSION: Status post left reverse shoulder replacement. There is good alignment. Electronically Signed: Naveed Shoemaker MD at 11:09 EDT ,
[2023-07-22] MEDS: TXA 1000mg in NS100 100ml (IVPB at Closure) 660 MG IV (09:43)
--- NOTE | 2023-07-22 10:01 | PCM.OPRPT ---
Problems Associated Problem List Diagnoses (1) Primary osteoarthritis, left shoulder: Report of Operation Date of Procedure: 07/22/23 Pre-Operative Diagnosis: Left shoulder osteoarthritis Post-Operative Diagnosis: Same Surgery/Procedure Performed:: Left reverse total shoulder arthroplasty, biceps tenodesis Surgeon: Gama Stout Type of Anesthesia: Block,Regional and General Anesthesiologist: Clayton Smith Estimated Blood Loss (mL): 50 Description of Procedure: Patient brought to the operating room theater. Placed supine on the beachchair. General anesthesia induced. 2 g IV Ancef administered. 1 g IV tranexamic acid given to the patient for the case as well. All bony prominences padded. SCDs on the leg. Arm bernard used to the patient's left side. Patient sat up at 45 degree angle. Upper extremity prepped and draped using chlorhexidine-based prep solution allowing over 3 minutes drying time prior to draping. Preoperative timeout performed to confirm the site the patient and the surgery. Began by making a standard deltopectoral incision just lateral to the coracoid process. Carried the dissection down through skin and subcutaneous tissue achieved meticulous hemostasis. Cephalic vein and the deltoid was retracted laterally and the pectoralis major muscle retracted medially. I used a Stafford shoulder retractor. I incised on the lateral aspect of the conjoined tendon retracted this medially. Identified the biceps. I followed the biceps through the rotator interval. I slightly released the upper border the pectoralis major tendon. I did a biceps tenodesis using #2 FiberWire for the upper border pectoralis major tendon. I then did a lesser tuberosity osteotomy. I protected the axillary nerve with direct palpation. I freed up any adhesions between the subscapularis and the capsule. I placed #2 FiberWire stay sutures in the Ssc. I then made my neck cut using the extramedullary guide. I then remove the rest of the long head of the biceps as well as the labrum and release a small amount of tissue at the inferior aspect of the glenoid slightly released the triceps tendon. I dissected all around and released sharply using the Wilson and electrocautery around the metaphysis of the humerus the capsule. I then visualized the glenoid. I used my templating that I did preoperatively using CT planning to place the guidepin aiming slightly anterior and superiorly for appropriate inferior tilt of the baseplate and glenosphere. I then used the backside reamer for a Tornier perform small size baseplate. I then used the center drill bit followed by the small drill in the center of this to size a 30 central screw. The baseplate and central screw was assembled on the back table and then screwed into place with the locking screws superiorly and inferiorly. I drilled and placed the superior and inferior locking screws the superior 1 was aiming for the base the coracoid and the inferior 1 down the scapular body. These achieved very good purchase and fixation therefore I did not place the anterior or posterior screws. Baseplate was cleaned with pulse lavage followed by impacting the 36 mm glenosphere. Next I turned attention the humeral side. I broached up to a size 3 trial with standard size poly. I did have to release a small amount to the anterior leading edge of the supraspinatus tendon for appropriate tensioning. The reduction was good stable no impingement with full range of motion therefore I selected those as the final component. I did take intraoperative radiographs of both the trials and the final component placement. I selected was finally a Tornier perform humeral stem size 3 with +0 mm polyethylene impacted into place. I also put small drill holes just lateral to the biceps groove passed the sutures for the subscapularis lesser tuberosity osteotomy through this and secured this into place in slight internal rotation. Final checks were done with full range of motion no impingement no instability normal shuck test and good tension at the conjoined tendon. I closed the rotator interval as well using #2 FiberWire suture. Wound thoroughly irrigated followed by closure and subtenons tissue with 2-0 Vicryl and skin with 3-0 Monocryl. Skin cleaned with wet dry dressing followed application of Steri-Strips and silver Mepilex dressing with an abduction pillow sling for the upper extremity. Patient woken up from a general anesthetic transferred off the operating table taken postanesthetic care unit in stable condition. All sponge needle instrument counts were correct and complications. Plan for the patient is to be discharged home today hopefully as long as they are comfortable. cpt 43635, 42805? Complications none Admit VTE Documentation VTE Present on Admission: No VTE Mechan Device Prophylaxis: SCD's VTE Pharm Prophylaxis ordered?: No Reason prophylaxis not ordered:: Treatment Not Indicated Procedures Musculoskeletal 20xxx-29xxx: Other Procedure See Report
--- NOTE | 2023-07-22 10:13 | DCINST_ITS ---
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 Discharge Plan Admission Attending Provider: Gama Stout Primary Care Provider: Ofelia العراقي Discharge Orders/Prescriptions Prescriptions: New oxycodone-acetaminophen [Endocet] 5-325 mg tablet 1 tab PO Q4H MDD 6 PRN (Reason: pain) 5 Days Qty: 20 0RF No Action cholecalciferol (vitamin D3) 125 mcg (5,000 unit) capsule 125 mcg PO DAILY methotrexate sodium 2.5 mg tablet 20 mg PO QWEEK Patient Comments: take 8 tablets by mouth every week folic acid 1 mg tablet 1 mg PO DAILY Patient Comments: take 2 tablets by mouth once daily prednisone 10 mg tablet 10 mg PO PRN Patient Comments: TAKE 1 TABLET BY MOUTH EVERY DAY NEEDED FOR 3-5 DAYS WITH A FLARE biotin 10,000 mcg capsule 10,000 mcg PO DAILY Xtampza ER 13.5 mg cap,sprinkl,ER12hr(DONT CRUSH) 13.5 mg PO BID Rx Instructions: must administer with a meal/food Evenity 105 mg/1.17 mL syringe 210 mg subcut QMONTH hydroxychloroquine 200 mg Tablet 200 mg PO DAILY Curcumin 95 % powder 1 ea miscellaneous DAILY acetaminophen 500 mg Tablet 1,000 mg PO Q8 PRN (Reason: pain) Referrals / Follow Up: Ofelia العراقي NP-C [Primary Care Provider] - Gama Stout MD [Med Staff - Active Staff] - Disposition Disposition (needs filled in before D/C Order can be placed): Home, Self Care
== END 2023-07-22 12:28 | disposition home or self-care (01) ==
LOC: SDC 05:31 → AC 05:31
PROVIDERS: Anesthesiology; PCP Nurse Practitioner Family; Referring Provider Orthopaedic Surgery Sports Medicine; Visit Provider Orthopaedic Surgery Sports Medicine
PROC: (CPT 23472; principal; 2023-07-22 07:00)
DX: M19.012 Primary osteoarthritis, left shoulder (principal); M06.9 Rheumatoid arthritis, unspecified; M54.9 Dorsalgia, unspecified; G89.29 Other chronic pain; M79.7 Fibromyalgia; M81.0 Age-related osteoporosis without current pathological fracture; Z79.52 Long term (current) use of systemic steroids; Z79.899 Other long term (current) drug therapy; Z87.891 Personal history of nicotine dependence
CPT/HCPCS: 23472; 01638; 64415; 36415; 73030; 76000; 82962; 82985; 83036; 83735; 85610; 85730; 86850; 86900; 86901; 87077; 87081; 88305; 88311; 93005; C1776; J7120; J2405; J3475

== ENCOUNTER → 2023-08-04 | Outpatient (CLI) | payer MEDICARE, OTHER, SELFPAY ==
[2023-08-04 12:40] LABS: Absolute Lymphocyte Count 1.43 X10^3/uL (0.83-4.51); Absolute Neutrophil Count 5.3 X10^3/uL (2.0-7.7); Basophil# 0.03 X10^3/uL; Basophil% 0.4 % (0-1); Eosinophil# 0.24 X10^3/uL; Eosinophils% 3.2 % (0-5); Hematocrit 26.9 % (37-47); Hemoglobin 8.8 g/dL (12.0-15.0); Lymphocyte # 1.43 X10^3/ul (0.83-4.51); Lymphocyte % 18.8 % (19-41); Mean Corp Hgb Conc 32.7 g/dL (32-36); Mean Corpuscular Hgb 33.6 pg (27.0-32.0); Mean Corpuscular Volume 102.7 fL (81-99); Mean Platelet Vol. 8.9 fl (6.2-12.0); Monocyte# 0.54 X10^3/uL; Monocyte% 7.1 % (0-10); NRBC Flagged by Analyzer 0 % (0-5); Neutrophil # 5.33 X10^3/uL (2.7-7.7); Neutrophil % 70.2 % (47-70); Platelet Count 608 K/mm3 (150-450); RBC Distribution Width CV 14.1 % (11.6-14.6); Red Blood Count 2.62 M/mm3 (4.2-5.4); White Blood Count 7.6 K/mm3 (4.4-11.0)
[2023-08-04 13:09] LABS: AST(SGOT) 15 U/L (15-37); Alanine Aminotransfer ALT/SGPT 16 U/L (13-56); Albumin, Serum 3.3 g/dL (3.2-5.0); Alkaline Phosphatase 108 U/L (45-117); Anion Gap 7 (5-15); BUN 20 mg/dL (7-18); Chloride 106 mmol/L (98-107); EST Glomerular Filtration Rate 58 mL/min (>60); Est Glom Filt Rate - Afr Amer 70 mL/min (>60); Globulin 3.2 g/dL (2.2-4.2); Glucose 101 mg/dL (74-106); Protein, Total 6.5 g/dL (6.4-8.2); Sodium Level 140 mmol/L (136-145)
== END | disposition home or self-care (01) ==
LOC: MTLAB 09:55
PROVIDERS: PCP Nurse Practitioner Family; Referring Provider Internal Medicine Rheumatology; Visit Provider Internal Medicine Rheumatology
DX: M06.4 Inflammatory polyarthropathy (principal); M79.7 Fibromyalgia; Z79.899 Other long term (current) drug therapy
CPT/HCPCS: 36415; 80053; 85025

== ENCOUNTER → 2023-08-05 | Outpatient (CLI) | payer MEDICARE, OTHER, SELFPAY ==
[2023-08-05 13:13] LABS: Amphetamine Urine VISTA NEGATIVE (<1000 ng/mL); Barbiturate Urine VISTA NEGATIVE (< 200 ng/mL); Benzodiazepine Urine VISTA NEGATIVE (< 200 ng/mL); Cocaine Urine VISTA NEGATIVE (< 300 ng/mL); Ecstacy Urine VISTA NEGATIVE (< 500 ng/mL); Methadone Urine VISTA NEGATIVE (< 300 ng/mL); PCP Urine VISTA NEGATIVE (< 25 ng/mL); THC Urine VISTA NEGATIVE (< 50 ng/mL); Vista UDS pH Range 7
== END | disposition home or self-care (01) ==
LOC: LAB 11:30
PROVIDERS: PCP Nurse Practitioner Family; Referring Provider Anesthesiology Pain Medicine; Visit Provider Anesthesiology Pain Medicine
DX: F11.20 Opioid dependence, uncomplicated (principal)
CPT/HCPCS: 80307

== ENCOUNTER → 2023-10-21 | Outpatient (CLI) | payer MEDICARE, OTHER, SELFPAY ==
--- NOTE | 2023-10-21 10:24 | RAD_ITS ---
INDICATION: ARTHRITIS EXAMINATION/TECHNIQUE: X-RAY - RIGHT XR Hand 2 Views 2 VIEWS COMPARISON: No relevant prior comparison study available FINDINGS: SOFT TISSUES: No soft tissue swelling or gas. No radiopaque foreign body. BONES/JOINTS: Mild degenerative changes particularly involving the DIP of the 2nd and 3rd digits, as well as the trapeziometacarpal articulation and interphalangeal joint of the thumb. No fractures or destructive bony process noted. There is significant widening of the scapholunate distance. RAD/Hand 2 Views IMPRESSION: 1. Osteoarthritic changes involving the interphalangeal joints of the 3rd digits at, to lesser extent at the trapeziometacarpal articulation. 2. No evidence of fractures. 3. Marked widening of the scapholunate distance Electronically Signed: Garrison Gannon MD at 22:41 EDT ,
--- NOTE | 2023-10-21 10:35 | RAD_ITS ---
INDICATION: ARTHRITIS EXAMINATION/TECHNIQUE: X-RAY - LEFT XR Hand 2 Views 2 VIEWS COMPARISON: No relevant prior comparison study available -previous imaging from 2017 without available for comparison. FINDINGS: SOFT TISSUES: No soft tissue swelling or gas. No radiopaque foreign body. BONES/JOINTS: Moderate degenerative change involving the DIP of the 5th digit. Remaining interphalangeal joints have normal alignment. Carpal rows are intact with the exception of marked widening of scapholunate distance. Mild degenerative changes involving the triscaphe joint also noted. No acute fractures, no acute destructive bony process. RAD/Hand 2 Views IMPRESSION: 1. Marked osteophytic changes involving the 5th DIP. 2. Mild to moderate degenerative changes at the triscaphe joint. 3. Marked widening of the scapholunate joint likely representing sequelae of ligamentous laxity. Electronically Signed: Garrison Gannon MD at 22:45 EDT ,
== END | disposition home or self-care (01) ==
LOC: RAD 10:21
PROVIDERS: PCP Nurse Practitioner Family; Referring Provider Internal Medicine Rheumatology; Visit Provider Internal Medicine Rheumatology
DX: M19.049 Primary osteoarthritis, unspecified hand (principal)
CPT/HCPCS: 73120

== ENCOUNTER → 2024-01-20 | Outpatient (CLI) | payer MEDICARE, OTHER, SELFPAY ==
[2024-01-20 13:12] LABS: Amphetamine Urine VISTA NEGATIVE (<1000 ng/mL); Barbiturate Urine VISTA NEGATIVE (< 200 ng/mL); Benzodiazepine Urine VISTA NEGATIVE (< 200 ng/mL); Cocaine Urine VISTA NEGATIVE (< 300 ng/mL); Ecstacy Urine VISTA NEGATIVE (< 500 ng/mL); Methadone Urine VISTA NEGATIVE (< 300 ng/mL); PCP Urine VISTA NEGATIVE (< 25 ng/mL); THC Urine VISTA NEGATIVE (< 50 ng/mL); Vista UDS pH Range 7
== END | disposition home or self-care (01) ==
LOC: LAB 12:06
PROVIDERS: PCP Nurse Practitioner Family; Referring Provider Anesthesiology Pain Medicine; Visit Provider Anesthesiology Pain Medicine
DX: F11.20 Opioid dependence, uncomplicated (principal)
CPT/HCPCS: 80307

== ENCOUNTER → 2024-03-01 | Outpatient (CLI) | payer MEDICARE, OTHER, SELFPAY ==
--- NOTE | 2024-03-01 12:45 | RAD_ITS ---
INDICATION: CXR PA and amp; LAT (97550) : chronic chest/rib pain bilateral; former -- Rib pain EXAMINATION/TECHNIQUE: X-RAY - XR Chest 2 Views COMPARISON: Prior study dated: 08/23/2021 FINDINGS: LINES/DEVICES: None. LUNGS: The lungs remain somewhat hyperinflated with COPD changes. No focal infiltrate is seen. No evidence of pleural effusions. MEDIASTINUM AND CARDIOVASCULAR STRUCTURES: Cardiac silhouette not enlarged. Central airways and mediastinal contour are unremarkable. BONES AND SOFT TISSUES: Postoperative changes in the lower cervical spine and bilateral shoulder arthroplasty are seen. RAD/Chest PA and Lateral IMPRESSION: No radiographic evidence of acute cardiopulmonary disease. Electronically Signed: Ervin Parks MD at 13:40 EDT ,
--- OUTSIDE RECORDS SUMMARY | 2024-03-01 18:26 | XMS RPT_ITS | CCD ---
Author Organization [facility] Care Team Providers Care Graphics Intern Name Role Phone BarreraMarcelaVanessa N Unavailable Vanessa Barrera Unavailable Raven Vasquez Unavailable LinkLogic Unavailable Vanessa Barrera Unavailable Jordan Sidhu MD Unavailable Vanessa Barrera Unavailable Francisco Ferrari MD Primary Care Provider Francisco Ferrari MD Primary Care Provider Francisco Ferrari MD Primary Care Provider ADRIÁN PULIDO Referring Unavailable FRANCISCO FERRARI Primary Care Unavailable ADRIÁN PULIDO Referring Unavailable FRANCISCO FERRARI Primary Care Unavailable Mike Hopper DO Primary Care Provider [phone] FRANCISCO FERRARI Primary Care Unavailable Wisam Mills MD Unavailable Mike Hopper DO Primary Care Provider [phone] Mike Hopper DO Primary Care Provider PROVIDER, UNKNOWN Referring Unavailable MIKE HOPPER Primary Care Unavailable PROVIDER, UNKNOWN Referring Unavailable MIKE HOPPER Primary Care Unavailable EDGARDO NOONAN MD Primary Care Unavailable SHAISTA MATA~[phone], SHAISTA REYNOSO Attending Unavailable SHAISTA MATA~[phone], SHAISTA REYNOSO Admitting Unavailable Mike Hopper DO Primary Care Provider MIKE HOPPER Primary Care Unavailable WILL, MIKE M Primary Care Unavailable WISAM MILLS Attending Unavailable WISAM MILLS Referring Unavailable WILL, MIKE M Primary Care Unavailable WISAM MILLS Referring Unavailable WISAM MILLS Attending Unavailable WILL, MIKE [...] WILL, MIKE M Primary Care Unavailable LESLIE MONET Referring Unavailable WILL, MIKE M Primary Care Unavailable HABBOUB, JAMIE Referring Unavailable HABBOUB, JAMIE Attending Unavailable WILL, MIKE M Primary Care Unavailable WISAM MILLS Referring Unavailable WILL, MIKE M Primary Care Unavailable LESLIE MONET Attending Unavailable HABBOUB, JAMIE Referring Unavailable WILL, MIKE M Primary Care Unavailable WILL, MIKE M Primary Care Unavailable WILL, MIKE M Primary Care Unavailable WILL, MIKE M Primary Care Unavailable HABBOUB, JAMIE Attending Unavailable WILL, MIKE M Primary Care Unavailable HABBOUB, JAMIE Referring Unavailable HABBOUB, JAMIE Referring Unavailable HABBOUB, JAMIE Attending Unavailable WILL, MIKE M Primary Care Unavailable HABBOUB, JAMIE Referring Unavailable WILL, MIKE M Primary Care Unavailable LESLIE MONET Attending Unavailable WILL, MIKE M Primary Care Unavailable Mateo MAAT, Francisco Ritter Primary Care Provider [phone] Allergies Allergy Classification Reported Allergen(s) Allergy Type Date of Onset Reaction(s) Facility (20 sources) Seasonal allergy; Translations: [SEASONAL ALLERGIES] Allergy to substance 4 Other: See Comments [facility] Work Phone: Medications Current Medications Medication Drug Class(es) Dates Sig (Normalized) Sig (Original) Biotin (20 sources) take 2 tablets by mo flh once daily BIOTIN ORAL Take 2 tablets by mouth once daily. 6000 MCG Biotin, with Keratin 50 mg Active take 2 tablets by mouth once carmine ly BIOTIN ORAL Take 2 tablets by mouth once daily. 6000 MCG Biotin, with Keratin 50 mg 0 Active Comment on above: Take 2 tablets by mo uth once daily. 6000 MCG Biotin, with Keratin 50 mg Calcium Carbonate (20 sources) take 1 tablet by mouth once daily CALCIUM CARBONATE (CALCIUM 300 ORAL) Take 1 tablet by mouth once daily. Active take 1 tablet by mouth once gigi y CALCIUM CARBONATE (CALCIUM 300 ORAL) Take 1 tablet by mouth once daily. 0 Active Comment on above: Take 1 tablet by latasha once daily. cetirizine hydrochloride 10 mg oral tablet (20 sources) Histamine-1 Receptor Antagonist take 1 tablet by mouth once daily cetirizine (ZYRTEC) 10 mg tablet Take 10 mg by mouth once daily. Active Comment on above: Take 10 mg by mouth once daily. cholecalciferol 0.125 mg oral tablet (20 sources) Vitamin D take 1 tablet by mouth once daily cholecalciferol (VITAMIN D3) 5,000 unit tab Take 5,000 Units by mouth once daily. Active Comment on above: Take 5,000 Units by mouth once daily. enteric contrast (will be provided with radiology test) (1 source) Start: End: enteric contrast (will be provided with radiology test) Indications: 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 For CT CHESTABD/PEL W IVCON Routine order Administer, As Directed One Time Only, via Oral, Rectal, both Oral and Rectal, Enteric Tube, Stoma or Indwelling Catheter, Enteric Contrast as designated per enteric contrast guidelines 1 Each 0 02/25/2023 02/26/2023 Active Comment on above: For CT CHESTABD/PEL W IVCON Routine order Administer, As Directed One Time Only, via Oral, Rectal, both Oral and Rectal, Enteric Tube, Stoma or Indwelling Catheter, Enteric Contrast as designated per enteric contrast guidelines folic acid 0.8 mg oral capsule (20 sources) take 2 capsules by mouth once daily folic acid 0.8 mg cap Take 2 capsules by mouth once daily. Active folic acid 0.8 m g cap Take by mouth. 0 Active Comment on above: Take by mouth. Take 2 capsules by m outh once daily. gabapentin 300 mg oral capsule (20 sources) Anti-epileptic Agent Start: 02-07-2022 End: 08-06-2022 take 1 capsule by mouth twice daily gabapentin (NEURONTIN) 300 mg capsule Indications: Radiculopathy, cervical region Take 1 capsule by mouth twice daily for 180 days. 180 capsule 1 02/07/2022 Active End: 02-07-2022 take 1 capsule by mouth three times daily gabapentin (NEURONTIN) 100 mg capsule Take 100 mg by mouth three times daily. 0 02/07/2022 Discontinued Comment on above: Take 1 capsule by [facility] twice daily for 180 days. Take 100 mg by mouth three times daily. hydroxychloroquine sulfate 200 mg oral tablet (20 sources) Antimalarial, Antirheumatic Agent take 1 tablet by mouth once daily hydrOXYchloroQUINE (PLAQUENIL) 200 mg tablet Take 200 mg by mouth once daily. Active Comment on above: Take 200 mg by mouth once daily. iv contrast (will be provided with radiology test) (20 sources) Start: 2022 End: 2022 iv contrast (will be provided with radiology test) Indications: 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 CT Chest ABD/PEL-Inject, intravenously, once for 1 dose.No IV access, insert saline lock prior to the beginning of sedation, infusion, injection of imaging exam. Discontinue saline lock post exam. If Pt. has a central line or IVAD, may access for administration according to line specific nursing protocol. Once exam is complete flush line and de-access according to line specific nursing protocol in the CT contrast administration guidelines link. 1 Each 0 02/25/2023 02/26/2023 Active Start: 04-17-2022 iv contrast (w ill be provided with radiology test) Indications: Cervicalgia , Arthrodesis status , Adverse effect of treatment, initial encounter MRI CSP Inject, intravenously, once for 1 [...] MR contrast administration guidelines link. 1 Each 04/17/2022 Active Start: 12-15-2022 inject 1 dose intravenously on ce iv contrast (will be provided with radiology test) Indications: Cervicalgia , Arthrodesis status , Adverse effect of treatment, initial encounter MRI TSP Inject, intravenously, once for 1 [...] MR contrast administration guidelines link. 1 Each 04/17/2022 Active Start: 04-17-2022 iv contrast (w ill be provided with radiology test) Indications: Cervicalgia , Arthrodesis status , Adverse effect of treatment, initial encounter MRI CSP Inject, intravenously, once for 1 [...] contrast administration guidelines link. 1 Each 0 04/17/2022 Active Start: 04-17-2022 inject 1 dose intravenously on ce iv contrast (will be provided with radiology test) Indications: Cervicalgia , Arthrodesis status , Adverse effect of treatment, initial encounter MRI TSP Inject, intravenously, once for 1 [...] contrast administration guidelines link. 1 Each 0 04/17/2022 Active Comment on above: MRI CSP Inject, intr avenously, once for 1 dose. No IV access, [...] in the MR contrast administration guidelines link. MRI TSP Inject, intr avenously, once for 1 dose. No IV access, [...] in the MR contrast administration guidelines link. CT Chest ABD/PEL-Inj ect, intravenously, once for 1 dose.No IV access, insert saline lock prior to the beginning of sedation, infusion, injection of imaging exam. Discontinue saline lock post exam. If Pt. has a central line or IVAD, may access for administration according to line specific nursing protocol. Once exam is complete flush line and de-access according to line specific nursing protocol in the CT contrast administration guidelines link. meloxicam 15 mg oral tablet (20 sources) Nonsteroidal Anti-inflammatory Drug Start: 016 take 1 tablet by mouth once daily at mealtime meloxicam (MOBIC) 15 mg tablet Indications: Arthritis Take 1 tablet by mouth once daily. Take with food. 30 tablet 2 07/05/2015 Active Comment on above: Take 1 tablet by latasha th once daily. Take with food. methocarbamol 750 mg oral tablet (20 sources) Muscle Relaxant Start: 023 take 1 tablet by mouth three times daily as needed methocarbamol (ROBAXIN-750) 750 mg tablet Take 1 tablet by mouth three times daily as needed. 60 tablet 10/20/2022 Active Comment on above: Take 1 tablet by latasha th three times daily as needed. multivitamin tablet (20 sources) take 1 tablet by mouth once daily multivitamin tablet Take 1 tablet by mouth once daily. 0 Active Comment on above: Take 1 tablet by latasha th once daily. OMEGA-3 FATTY ACIDS/FISH OIL (OMEGA 3 FISH OIL ORAL) (20 sources) OMEGA-3 FATTY ACIDS/FISH OIL (OMEGA 3 FISH OIL ORAL) Take by mouth once daily. Active OMEGA-3 FATTY AC IDS/FISH OIL (OMEGA 3 FISH OIL ORAL) Take by mouth once daily. 0 Active Comment on above: Take by mouth once d aily. oxyCODONE 13.5 mg 12 hr extended release oral capsule, abuse-deterrent (20 sources) Opioid Agonist take 1 capsule by mouth twice daily oxyCODONE myristate (XTAMPZA ER) 13.5 mg CSpT Take 1 capsule by mouth two times a day. Active Comment on above: Take by mouth. Take 1 capsule by mo ut two times a day. predniSONE 10 mg oral tablet (20 sources) take 1 tablet by mouth once daily predniSONE (DELTASONE) 10 mg tablet Take 10 mg by mouth once daily. Active Comment on above: Take 10 mg by mouth once daily. tiZANidine 2 mg oral tablet (10 sources) Central alpha-2 Adrenergic Agonist Start: 09-21-2023 End: 12-20-2023 take 1 tablet by mouth every eight hours as needed tiZANidine (ZANAFLEX) 2 mg tablet Take 1 tablet by mouth every 8 hours as needed. 30 tablet 0 09/21/2023 12/20/2023 Active Turmeric extract (20 sources) take 1 tablet by mouth once daily TURMERIC ORAL Take 1 tablet by mouth once daily. 0 Active Comment on above: Take 1 tablet by latasha th once daily. Completed/Discontinued Medications Medication Drug Class(es) Dates Sig (Normalized) Sig (Original) acetaminophen 325 mg / oxyCODONE hydrochloride 5 mg oral tablet (8 sources) Opioid Agonist Start: 07-17-2017 take 1-2 tablets by mouth every six hours PERCOCET 5-325 MG TABS Take 1-2 tablets by mouth every 6 hours OXYCODONE-ACETAMIN OPHEN [id number] Patty Ambriz PA-C Start: 07-07-2016 OXYCODONE-ACET AMINOPHEN 5-325 MG TABS OXYCODONE-ACETAMINOPHEN [id number] Thom Iverson alendronic acid 70 mg oral tablet (20 sources) Bisphosphonate Start: 07-05-2015 End: 09-10-2022 take 1 tablet by mouth every week alendronate (FOSAMAX) 70 mg tablet Indications: Osteoporosis Take 1 tablet by mouth once each week. 4 tablet 2 07/05/2015 09/10/2022 Discontinued End: 06-23-2022 take 70 mg by mouth every week Alendronate Sodium (FOS AMAX) 70 mg/75 mL solution Take 70 mg by mouth one time a week. 06/23/2022 Discontinued Comment on above: Take 1 tablet by latasha th once each week. Take 70 mg by mouth one time a week. calcium (20 sources) Phosphate Binder, Calcium Start: 02-07-2016 CALCIUM 600 + D TABS takes 1 tablet daily CALCIUM CARB-CHOLECALCIFEROL TABS [id number] Lilia Rose LPN take 600 mg by mouth once daily CALCIUM ORAL Take 600 mg by mouth once daily. Active take 600 mg by mouth once daily CALCIUM ORAL Take 600 mg by mouth once daily. 0 Active Comment on above: Take 600 mg by mouth once daily. 1 ml denosumab 60 mg/ml prefilled syringe (2 sources) RANK Ligand Inhibitor Start: 12-15-2023 End: 12-15-2023 denosumab 60 mg injection (PROLIA) DULoxetine 30 mg delayed release oral capsule (7 sources) Serotonin and Norepinephrine Reuptake Inhibitor Start: 07-07-2016 DULOXETINE HCL 30 MG CPEP DULOXETINE HCL [id number] Thom Iverson ibuprofen 200 mg oral capsule (1 source) Nonsteroidal Anti-inflammatory Drug Start: 2017 ADVIL 200 MG CAPS 4 tablets every 4 hours as needed for pain per patient IBUPROFEN [id number] Jordan Sidhu MD Start: 2017 ADVIL 200 MG C APS 4 tablets every 4 hours as needed for pain per patient IBUPROFEN [id number] Jordan Sidhu MD linaclotide 0.145 mg oral capsule (20 sources) Guanylate Cyclase-C Agonist End: 03-23-2023 linaclotide (LINZESS) 145 mcg capsule Take by mouth as needed. 03/23/2023 Discontinued Comment on above: Take by mouth as nee ded. methotrexate 2.5 mg oral tablet (20 sources) Folate Analog Metabolic Inhibitor Start: 07-07-2016 METHOTREXATE 2.5 MG TABS METHOTREXATE SODIUM [id number] Thom Iverson take 8 tablets by mouth every we ek methotrexate 2.5 mg tablet Take 8 tablets by mouth once weekly. Active take 1 tablet by mouth once meth otrexate 2.5 mg tablet Take 2.5 mg by mouth one time only. Taking 6 tablets one day a week on 0 Active Comment on above: Take 2.5 mg by mouth one time only. Take 2.5 mg by mouth one time only. Taking 6 tablets one day a week on Take 8 tablets by mt uth once weekly. MULTIPLE VITAMINS-MINERALS (1 source) Start: 02-07-2016 QC WOMENS DAILY MULTIVITAMIN TABS takes 1 tablet daily MULTIPLE VITAMINS-MINERALS [id number] Lilia Rose BOX ATT[employer]ER raloxifene hydrochloride 60 mg oral tablet (20 sources) Estrogen Agonist/Antagonist Start: 07-07-2016 End: 09-10-2022 RALOXIFENE HCL 60 MG TABS RALOXIFENE HCL [id number] Thom Iverson Comment on above: Take 60 mg by mouth once daily. romosozumab (20 sources) Start: 11-02-2023 End: 11-02-2023 romosozumab-aqqg 210 mg injection (EVENITY) Start: 09-10-2022 End: 10-05-2023 romosozumab-aqqg 210 mg inje ction (EVENITY) Problems Active Problems Problem Classification Problem Date Documented Date Episodic/Chronic Complications of surgical procedures or medical care (7 sources) Complication of procedure; Translations: [Complication of surgical and medical care, unspecified, initial encounter] Onset: 05-31-2022 Episodic Deficiency and other anemia (1 source) Anemia; Translations: [Anemia, unspecified] 09-29-2023 Episodic Disorders of lipid metabolism (20 sources) Hyperlipidemia; Translations: [Hyperlipidemia, unspecified] Onset: 09-20-2014 09-20-2014 Chronic Neoplasms of unspecified nature or uncertain behavior (6 sources) Monoclonal gammopathy (clinical); Translations: [Monoclonal gammopathy] Onset: 02-25-2023 Chronic Nutritional deficiencies (1 source) Vitamin D deficiency; Translations: [Vitamin D deficiency, unspecified] Chronic Osteoarthritis (20 sources) Arthritis; Translations: [Unspecified [...] bone density and structure, unspecified] Episodic Other connective tissue disease (7 sources) H/O: arthrodesis; Translations: [Arthrodesis status] Episodic Other endocrine disorders (2 sources) Hyperparathyroidism; Translations: [Hyperparathyroidism, unspecified] Chronic Other fractures (6 sources) Closed fracture of third thoracic vertebra; [...] conditions (not mental disorders or infectious disease) (1 source) Radiology result abnormal; Translations: [Abnormal findings on diagnostic imaging of other specified body structures] Chronic Pathological fracture (18 sources) Primary osteoporosis; Translations: [Age-related osteoporosis with current pathological fracture, unspecified site, subsequent encounter for fracture with routine healing] Onset: 04-29-2021 Episodic Spondylosis; intervertebral disc disorders; other [...] Translations: [Dermatitis, unspecified] Onset: 09-20-2013 06-23-2014 Episodic Hemorrhoids (14 sources) Hemorrhoids; Translations: [Unspecified hemorrhoids] Onset: 08-03-2013 Resolved: 09-20-2013 06-23-2014 Episodic Other acquired deformities (1 source) Other biomechanical lesions of lumbar region; Translations: [Other biomechanical lesions of lumbar region] Onset: 05-29-2017 05-29-2017 Episodic Other bone disease and musculoskeletal deformities (1 source) Other specified disorders of bone density and structure, unspecified site; Translations: [Other specified disorders of bone density and structure, unspecified site] Onset: 03-13-2023 Episodic Other connective tissue disease (3 sources) Arthrodesis status; Translations: [Arthrodesis status] Onset: 07-10-2017 07-10-2017 Episodic Other connective tissue disease (20 sources) Fibromyalgia; Translations: [Fibromyalgia] Onset: 12-30-2012 04-29-2021 Episodic Other fractures (1 source) Stable burst fracture of third thoracic vertebra, subsequent encounter for fracture with routine healing; Translations: [Closed stable burst fracture of third thoracic vertebra with routine healing, subsequent encounter] Onset: 10-20-2022 Episodic Other inflammatory condition of skin (14 sources) Pruritus ani; Translations: [Pruritus ani] Onset: 04-20-2013 Resolved: 09-20-2013 09-20-2013 Episodic Other non-traumatic joint disorders (20 sources) Joint pain; Translations: [Pain in unspecified joint] Onset: 04-11-2014 04-11-2014 Episodic Residual codes; unclassified (20 sources) Tobacco user; Translations: [Tobacco use] Onset: 09-20-2014 04-29-2021 Episodic Unclassified (1 source) Problem Results Test Name Value Interpretation Reference Range Facility [facility] 12-15-2023 CNOV Office Visit (ENDMED ) YARA LOYA ([id number]) 1950 F Date Time Provider Department 12/15/23 10:00 AM NURSE [facility] During your visit today, we recorded the following information about you: Yuliana Bagley RN 12/15/2023 10:21 AM Signed The patient is here for an injection of Prolia (First Injection) (Completed Evenity Therapy, last injection 11/02/23). Dose: 60 mg Route: Subcutaneous Lot# [id number] Expiration date 04/02/2026 Given without incident. Site: right arm Dr. Nelson present in clinic at time of injection. The date due for the next injection is in 6 months. DAVID: 10/27/23 NOV: Will need 10/2024 Insurance: Primary= Medicare, Secondary= MMO Supplement--- No PA Labs: 09/21/23 Calcium 9.3, 12/01/23 Vitamin D 71.6 DX: M81.0 CPT: J0897 DXA: 10/21/22 TScore: -2.9 Left FA Patient education was given by nurse. Patient tolerated Injection well, in NAD and no reactions noted. Medication supplied by [facility] [employer] [facility] [email or web address]. Yuliana Bagley RN Allergies As of Date: 12/15/2023 Noted Allergy Reaction SEASONAL ALLERGIES 09/20/2013 14 - Other: See Comments Comments: sinus Date Reviewed: 12/15/2023 Reviewed by: Yuliana Bagley RN - Fully Assessed Reason for Visit: Prolia Injection [Other] Primary Visit Diagnosis:Age-related osteoporosis with current pathological fracture with routine healing, subsequent encounter [M80.00XD] Order(s):[] denosumab 60 mg injection (PROLIA)Disp: Rfl: Prescriptions as of 12/15/2023 - tiZANidine (ZANAFLEX) 2 mg tablet Take 1 tablet by mouth every 8 hours as needed. - multivitamin tablet Take 1 tablet by mouth once daily. - TURMERIC ORAL Take 1 tablet by mouth once daily. - methocarbamol (ROBAXIN-750) 750 mg tablet Take 1 tablet by mouth three times daily as needed. - BIOTIN ORAL Take 2 tablets by mouth once daily. 6000 MCG Biotin, with Keratin 50 mg - CALCIUM ORAL Take 600 mg by mouth once daily. - iv contrast (will be provided with radiology [...] in the MR contrast administration guidelines link. - iv contrast (will be provided with radiology [...] in the MR contrast administration guidelines link. - hydrOXYchloroQUINE (PLAQUENIL) 200 mg tablet Take 200 mg by mouth once daily. - folic acid 0.8 mg cap Take 2 capsules by mouth once daily. - methotrexate 2.5 mg tablet Take 8 tablets by mouth once weekly. - oxyCODONE myristate (XTAMPZA ER) 13.5 mg CSpT Take 1 capsule by mouth two times a day. - cholecalciferol (VITAMIN D3) 5,000 unit tab Take 5,000 Units by mouth once daily. - cetirizine (ZYRTEC) 10 mg tablet Take 10 mg by mouth once daily. - predniSONE (DELTASONE) 10 mg tablet Take 10 mg by mouth once daily. - gabapentin (NEURONTIN) 300 mg capsule Take 1 capsule by mouth twice daily for 180 days. - CALCIUM CARBONATE (CALCIUM 300 ORAL) Take 1 tablet by mouth once daily. - meloxicam (MOBIC) 15 mg tablet Take 1 tablet by mouth once daily. Take with food. - OMEGA-3 FATTY ACIDS/FISH OIL (OMEGA 3 FISH OIL ORAL) Take by mouth once daily. Problem List As Of Date 12/15/2023 Noted Resolved Osteoporosis [M81.0] 12/30/2012 Arthritis [M19.90] 12/30/2012 Herniated cervical disc [M50.20] 12/30/2012 Fibromyalgia [M79.7] 12/30/2012 Back pain, lumbosacral [M54.50] 12/30/2012 Pruritus ani [L29.0] 04/20/2013 09/20/2013 Hemorrhoids [K64.9] 08/03/2013 09/20/2013 Eczema [L30.9] 09/20/2013 Pain in joint, site unspecified [M25.50] 04/11/2014 Cervicalgia [M54.2] 09/20/2014 Tobacco abuse disorder [Z72.0] 09/20/2014 Hyperlipidemia [E78.5] 09/20/2014 Visit Notes: >> Yuliana Bagley RN Tue Dec 15, 2023 10:15 AM Status: Signed The patient is here for an injection of Prolia (First Injection) (Completed Evenity Therapy, last injection 11/02/23). Dose: 60 mg Route: Subcutaneous Lot# [id number] Expiration date 04/02/2026 Given without incident. Site: right arm Dr. Nelson present in clinic at time of injection. The date due for the next injection is in 6 months. DAVID: 10/27/23 NOV: Will need 10/2024 Insurance: Primary= Medicare, Secondary= MMO Torrez (more content not included)... Normal [facility]NPNon 12-15-2023 CNPN Telephone (ENDMED) YARA LOYA Silvestre ([id number]) 1950 F Date Time Provider Department 12/15/23 LESLIE MONET During your visit today, we recorded the following information about you: Yuliana Bagley RN 12/15/2023 10:31 AM Signed Patient was here for her first Prolia Injection today. Stated and provided results from PCP for updated Vitamin D labs draw. Results: 71.6 (30.0-100.0) She was told to lower her Vitamin D dose from 5000 international unit(s) daily to 4000 international unit(s) daily by her PCP. However, she has a lot of the 5000 international unit(s) capsules at home and is wondering if there is a way to take the 5000 international unit(s) dose but still be able to lower her dose in some way? Please advise in Dr. Monet's absence. Entered the outside lab result. Placed in your in box for review as well. Miley Nelson MD 12/15/2023 11:10 AM Signed She can take vitamin D 5000 5 days a week Miley Nelson MD Allergies As of Date: 12/15/2023 Noted Allergy Reaction SEASONAL ALLERGIES 09/20/2013 14 - Other: See Comments Comments: sinus Date Reviewed: 12/15/2023 Reviewed by: Yuliana Bagley RN - Fully Assessed Reason for Visit: Results [95] Order(s):VITAMIN D 25 HYDROXY [SQVITD] Order #: [id number] VITAMIN D 25 HYDROXY [SQVITD] Order #: [id number] Prescriptions as of 12/15/2023 - tiZANidine (ZANAFLEX) 2 mg tablet Take 1 tablet by mouth every 8 hours as needed. - multivitamin tablet Take 1 tablet by mouth once daily. - TURMERIC ORAL Take 1 tablet by mouth once daily. - methocarbamol (ROBAXIN-750) 750 mg tablet Take 1 tablet by mouth three times daily as needed. - BIOTIN ORAL Take 2 tablets by mouth once daily. 6000 MCG Biotin, with Keratin 50 mg - CALCIUM ORAL Take 600 mg by mouth once daily. - iv contrast (will be provided with radiology [...] in the MR contrast administration guidelines link. - iv contrast (will be provided with radiology [...] in the MR contrast administration guidelines link. - hydrOXYchloroQUINE (PLAQUENIL) 200 mg tablet Take 200 mg by mouth once daily. - folic acid 0.8 mg cap Take 2 capsules by mouth once daily. - methotrexate 2.5 mg tablet Take 8 tablets by mouth once weekly. - oxyCODONE myristate (XTAMPZA ER) 13.5 mg CSpT Take 1 capsule by mouth two times a day. - cholecalciferol (VITAMIN D3) 5,000 unit tab Take 5,000 Units by mouth once daily. - cetirizine (ZYRTEC) 10 mg tablet Take 10 mg by mouth once daily. - predniSONE (DELTASONE) 10 mg tablet Take 10 mg by mouth once daily. - gabapentin (NEURONTIN) 300 mg capsule Take 1 capsule by mouth twice daily for 180 days. - CALCIUM CARBONATE (CALCIUM 300 ORAL) Take 1 tablet by mouth once daily. - meloxicam (MOBIC) 15 mg tablet Take 1 tablet by mouth once daily. Take with food. - OMEGA-3 FATTY ACIDS/FISH OIL (OMEGA 3 FISH OIL ORAL) Take by mouth once daily. Problem List As Of Date 12/15/2023 Noted Resolved Osteoporosis [M81.0] 12/30/2012 Arthritis [M19.90] 12/30/2012 Herniated cervical disc [M50.20] 12/30/2012 Fibromyalgia [M79.7] 12/30/2012 Back pain, lumbosacral [M54.50] 12/30/2012 Pruritus ani [L29.0] 04/20/2013 09/20/2013 Hemorrhoids [K64.9] 08/03/2013 09/20/2013 Eczema [L30.9] 09/20/2013 Pain in joint, site unspecified [M25.50] 04/11/2014 Cervicalgia [M54.2] 09/20/2014 Tobacco abuse disorder [Z72.0] 09/20/2014 Hyperlipidemia [E78.5] 09/20/2014 Encounter Status:Closed by MILEY NELSON on 12/15/23 [facility] 12-14-2023 [facility] Telephone (ENDMED) YARA LOYA ([id number]) 1950 F Date Time Provider Department 12/14/23 MILEY NELSON During your visit today, we recorded the following information about you: Yuliana Bagley RN 12/14/2023 8:41 AM Signed Patient is scheduled for a Prolia Injection on 12/15/23 at 10:[address] CAM order accordingly. Thank you. Please place in Dr. Monet's absence. Patient just finished Evenity injections last month and transitioning to Prolia. Miley Nelson MD 12/14/2023 12:20 PM Signed Order placed Miley Nelson MD Allergies As of Date: 12/14/2023 Noted Allergy Reaction SEASONAL ALLERGIES 09/20/2013 14 - Other: See Comments Comments: sinus Date Reviewed: 11/02/2023 Reviewed by: Lyric So RN - Fully Assessed Reason for Visit: CAM Order Request [Other] Prescriptions as of 12/14/2023 - tiZANidine (ZANAFLEX) 2 mg tablet Take 1 tablet by mouth every 8 hours as needed. - multivitamin tablet Take 1 tablet by mouth once daily. - TURMERIC ORAL Take 1 tablet by mouth once daily. - methocarbamol (ROBAXIN-750) 750 mg tablet Take 1 tablet by mouth three times daily as needed. - BIOTIN ORAL Take 2 tablets by mouth once daily. 6000 MCG Biotin, with Keratin 50 mg - CALCIUM ORAL Take 600 mg by mouth once daily. - iv contrast (will be provided with radiology [...] in the MR contrast administration guidelines link. - iv contrast (will be provided with radiology [...] in the MR contrast administration guidelines link. - hydrOXYchloroQUINE (PLAQUENIL) 200 mg tablet Take 200 mg by mouth once daily. - folic acid 0.8 mg cap Take 2 capsules by mouth once daily. - methotrexate 2.5 mg tablet Take 8 tablets by mouth once weekly. - oxyCODONE myristate (XTAMPZA ER) 13.5 mg CSpT Take 1 capsule by mouth two times a day. - cholecalciferol (VITAMIN D3) 5,000 unit tab Take 5,000 Units by mouth once daily. - cetirizine (ZYRTEC) 10 mg tablet Take 10 mg by mouth once daily. - predniSONE (DELTASONE) 10 mg tablet Take 10 mg by mouth once daily. - gabapentin (NEURONTIN) 300 mg capsule Take 1 capsule by mouth twice daily for 180 days. - CALCIUM CARBONATE (CALCIUM 300 ORAL) Take 1 tablet by mouth once daily. - meloxicam (MOBIC) 15 mg tablet Take 1 tablet by mouth once daily. Take with food. - OMEGA-3 FATTY ACIDS/FISH OIL (OMEGA 3 FISH OIL ORAL) Take by mouth once daily. Facility-Administered Medications as of 12/14/2023 - denosumab 60 mg injection (PROLIA) Problem List As Of Date 12/14/2023 Noted Resolved Osteoporosis [M81.0] 12/30/2012 Arthritis [M19.90] 12/30/2012 Herniated cervical disc [M50.20] 12/30/2012 Fibromyalgia [M79.7] 12/30/2012 Back pain, lumbosacral [M54.50] 12/30/2012 Pruritus ani [L29.0] 04/20/2013 09/20/2013 Hemorrhoids [K64.9] 08/03/2013 09/20/2013 Eczema [L30.9] 09/20/2013 Pain in joint, site unspecified [M25.50] 04/11/2014 Cervicalgia [M54.2] 09/20/2014 Tobacco abuse disorder [Z72.0] 09/20/2014 Hyperlipidemia [E78.5] 09/20/2014 Encounter Status:Closed by MILEY NELSON on 12/14/23 Normal [facility] 25-hydroxyvitamin D3 [Mass/V ol]on 12-02-2023 Vitamin D 25 Hydroxy 71.6 30.0 - 100.0 [facility] CNOVon 11-02-2023 CNOV Office Visit (ENDMED ) YARA LOYA ([id number]) 1950 F Date Time Provider Department 11/02/23 10:00 AM NURSE ARI YUEN ENDKELVIN During your visit today, we recorded the following information about you: Lyric So RN 11/02/2023 10:25 AM Signed The patient is here for an injection of Evenity Injection #12 of 12 Dose: 210 mg (105 mg/1.17 mL X2). Route: Subcutaneous Lot# [id number] Expiration date 10/31/2025 [facility]: 25944-867-54 Given without incident. Site: Right arm Dr. Dougherty present in clinic at time of injection. Last injection is today. Patient will start Prolia in December,. Last Injection: 10/01/23 DAVID: 10/27/23 NOV: Needs 10/26 Insurance: Primary= Medicare, Secondary= O-- No PA Required Labs: 03/13/23 Calcium 9.5, Vitamin D 74.1 DX: M81.0 CPT: J3111 DXA: 10/21/22 (T-Score -2.9 Left Forearm) Patient education was given by nurse. Patient tolerated Injection well, in NAD and no reactions noted. Medication supplied by [facility] JONELLE So RN Allergies As of Date: 11/02/2023 Noted Allergy Reaction SEASONAL ALLERGIES 09/20/2013 14 - Other: See Comments Comments: sinus Date Reviewed: 11/02/2023 Reviewed by: Lyric So, GREGORIA - Fully Assessed Reason for Visit: Evenity Injection [Other] Primary Visit Diagnosis:Age-related osteoporosis with current pathological fracture with routine healing, subsequent encounter [M80.00XD] Prescriptions as of 11/02/2023 - tiZANidine (ZANAFLEX) 2 mg tablet Take 1 tablet by mouth every 8 hours as needed. - multivitamin tablet Take 1 tablet by mouth once daily. - TURMERIC ORAL Take 1 tablet by mouth once daily. - methocarbamol (ROBAXIN-750) 750 mg tablet Take 1 tablet by mouth three times daily as needed. - BIOTIN ORAL Take 2 tablets by mouth once daily. 6000 MCG Biotin, with Keratin 50 mg - CALCIUM ORAL Take 600 mg by mouth once daily. - iv contrast (will be provided with radiology [...] in the MR contrast administration guidelines link. - iv contrast (will be provided with radiology [...] in the MR contrast administration guidelines link. - hydrOXYchloroQUINE (PLAQUENIL) 200 mg tablet Take 200 mg by mouth once daily. - folic acid 0.8 mg cap Take 2 capsules by mouth once daily. - methotrexate 2.5 mg tablet Take 8 tablets by mouth once weekly. - oxyCODONE myristate (XTAMPZA ER) 13.5 mg CSpT Take 1 capsule by mouth two times a day. - cholecalciferol (VITAMIN D3) 5,000 unit tab Take 5,000 Units by mouth once daily. - cetirizine (ZYRTEC) 10 mg tablet Take 10 mg by mouth once daily. - predniSONE (DELTASONE) 10 mg tablet Take 10 mg by mouth once daily. - gabapentin (NEURONTIN) 300 mg capsule Take 1 capsule by mouth twice daily for 180 days. - CALCIUM CARBONATE (CALCIUM 300 ORAL) Take 1 tablet by mouth once daily. - meloxicam (MOBIC) 15 mg tablet Take 1 tablet by mouth once daily. Take with food. - OMEGA-3 FATTY ACIDS/FISH OIL (OMEGA 3 FISH OIL ORAL) Take by mouth once daily. Problem List As Of Date 11/02/2023 Noted Resolved Osteoporosis [M81.0] 12/30/2012 Arthritis [M19.90] 12/30/2012 Herniated cervical disc [M50.20] 12/30/2012 Fibromyalgia [M79.7] 12/30/2012 Back pain, lumbosacral [M54.50] 12/30/2012 Pruritus ani [L29.0] 04/20/2013 09/20/2013 Hemorrhoids [K64.9] 08/03/2013 09/20/2013 Eczema [L30.9] 09/20/2013 Pain in joint, site unspecified [M25.50] 04/11/2014 Cervicalgia [M54.2] 09/20/2014 Tobacco abuse disorder [Z72.0] 09/20/2014 Hyperlipidemia [E78.5] 09/20/2014 Visit Notes: >> Lyric So RN Mon Nov 02, 2023 10:17 AM Status: Signed The patient is here for an injection of Evenity Injection #12 of 12 Dose: 210 mg (105 mg/1.17 mL X2). Route: Subcutaneous Lot# [id number] Expiration date 10/31/2025 [facility]: 65715-504-94 Given without incident. Site: Right arm Dr. Dougherty present in clinic at time of injection. Last injection is today. Patient will start Prolia in December,. Last Injection: 10/01/23 DAVID: 10/27/23 NOV: Needs 10/26 Insurance: Primary= Medicare, Seco (more content not included)... Normal [facility] ([id number]) 1950 F Date Time Provider Department 10/30/23 LESLIE MONET During your visit today, we recorded the following information about you: Lyric So RN 10/30/2023 11:07 AM Signed Patient is scheduled for an Evenity Injection on 11/02/23. Please place CAM order accordingly, standing order (just need one more). Thank you. Leslie Monet MD 11/02/2023 6:23 AM Signed Order placed Thank you HH Lyric So RN 11/02/2023 9:15 AM Signed Closed Allergies As of Date: 10/30/2023 Noted Allergy Reaction SEASONAL ALLERGIES 09/20/2013 14 - Other: See Comments Comments: sinus Date Reviewed: 10/27/2023 Reviewed by: Kirsten Hall MA - Fully Assessed Reason for Visit: CAM Order [Other] Order(s):romosozumab-a qqg 210 mg injection (EVENITY)Disp: Rfl: Prescriptions as of 11/02/2023 - tiZANidine (ZANAFLEX) 2 mg tablet Take 1 tablet by mouth every 8 hours as needed. - multivitamin tablet Take 1 tablet by mouth once daily. - TURMERIC ORAL Take 1 tablet by mouth once daily. - methocarbamol (ROBAXIN-750) 750 mg tablet Take 1 tablet by mouth three times daily as needed. - BIOTIN ORAL Take 2 tablets by mouth once daily. 6000 MCG Biotin, with Keratin 50 mg - CALCIUM ORAL Take 600 mg by mouth once daily. - iv contrast (will be provided with radiology [...] in the MR contrast administration guidelines link. - iv contrast (will be provided with radiology [...] in the MR contrast administration guidelines link. - hydrOXYchloroQUINE (PLAQUENIL) 200 mg tablet Take 200 mg by mouth once daily. - folic acid 0.8 mg cap Take 2 capsules by mouth once daily. - methotrexate 2.5 mg tablet Take 8 tablets by mouth once weekly. - oxyCODONE myristate (XTAMPZA ER) 13.5 mg CSpT Take 1 capsule by mouth two times a day. - cholecalciferol (VITAMIN D3) 5,000 unit tab Take 5,000 Units by mouth once daily. - cetirizine (ZYRTEC) 10 mg tablet Take 10 mg by mouth once daily. - predniSONE (DELTASONE) 10 mg tablet Take 10 mg by mouth once daily. - gabapentin (NEURONTIN) 300 mg capsule Take 1 capsule by mouth twice daily for 180 days. - CALCIUM CARBONATE (CALCIUM 300 ORAL) Take 1 tablet by mouth once daily. - meloxicam (MOBIC) 15 mg tablet Take 1 tablet by mouth once daily. Take with food. - OMEGA-3 FATTY ACIDS/FISH OIL (OMEGA 3 FISH OIL ORAL) Take by mouth once daily. Facility-Administered Medications as of 11/02/2023 - romosozumab-aqqg 210 mg injection (EVENITY) Problem List As Of Date 10/30/2023 Noted Resolved Osteoporosis [M81.0] 12/30/2012 Arthritis [M19.90] 12/30/2012 Herniated cervical disc [M50.20] 12/30/2012 Fibromyalgia [M79.7] 12/30/2012 Back pain, lumbosacral [M54.50] 12/30/2012 Pruritus ani [L29.0] 04/20/2013 09/20/2013 Hemorrhoids [K64.9] 08/03/2013 09/20/2013 Eczema [L30.9] 09/20/2013 Pain in joint, site unspecified [M25.50] 04/11/2014 Cervicalgia [M54.2] 09/20/2014 Tobacco abuse disorder [Z72.0] 09/20/2014 Hyperlipidemia [E78.5] 09/20/2014 Prescriptions ordered this encounter Disp Refills Start End ROMOSOZUMAB-AQQG 210 MG/2.34 ML(105 * 11/02/2023 11/02/2023 Route: SUBCUTANEOUS Encounter Status:Closed by LYRIC OS on 11/02/23 [facility] CNOVon 10-27-2023 CNOV Office Visit (ENDMED ) YARA LOYA ([id number]) 1950 F Date Time Provider Department 10/27/23 10:40 AM LESLIE MONET ENDMED During your visit today, we recorded the following information about you: Pulse Respiration Blood pressure Weight 94/minute 16/minute 130/78 46 kg Height 1.473 m Leslie Monet MD 10/27/2023 11:23 AM Signed ENDOCRINOLOGY CLINIC NOTE Reason for visit Yara Loya is a 73 year old female with fibromyalgia, RA presented [...] vertebral fractures while on long-term Fosamax therapy. DXA scan 10/21/2022 L-spine BMD 0.823, T-score -0.8 improved compared to 2020 Left forearm BMD 0.423, T-score -2.9 DXA 10/16/2020 (images below): L-spine BMD 0.987, T score -1.5 Right TH BMD 0.641, T score -2.9 Right FN BMD 0.674, T score -2.6 Fracture history: Chronic T3 compression fracture with 70% height loss on MRI 07/2022 Age-indeterminate T12 fracture Treatment history (including any side effects/contraindicati ons): Prolia for 10 years then switched to Fosamax 70 mg once a week for a 10 years until 09/2022 Evenity 09/2022-present, will finish this month Family history of metabolic bone disease or [...] vitamin D 74, GFR 69 and PTH 67. She stopped taking the calcium due GI issues. She takes vitamin D 5000 units daily Past Medical History PAST MEDICAL HISTORY Diagnosis Date Arthritis of neck Fibromyalgia Herniated disc, cervical she says she has 7 herniated discs Osteoporosis Past Surgical History PAST SURGICAL HISTORY Procedure Laterality Date ARTHRD ANT INTERBODY MIN DSC CRV BELOW C2 12/14/14 DISCECTOMY ANT DCMPRN CORD CERVICAL 1 [facility] 12/14/14 DISCECTOMY ANT DCMPRN CORD CERVICAL EA [facility] 12/14/14 HEMORRHOID SURGERY HX 2013 PAST SURGICAL HISTORY OF 2000 back, done by ?DR. Kelley? TONSILLECTOMY AND ADENOIDECTOMY Medications Current Outpatient Medications Medication Sig TURMERIC ORAL Take 1 tablet by mouth once daily. oxyCODONE myristate (XTAMPZA ER) 13.5 mg CSpT Take 1 capsule by mouth two times a day. cholecalciferol (VITAMIN D3) 5,000 unit tab Take 5,000 Units by mouth once daily. predniSONE (DELTASONE) 10 mg tablet Take 10 mg by mouth once daily. tiZANidine (ZANAFLEX) 2 mg tablet Take 1 tablet by mouth every 8 hours as needed. (Patient not taking: Reported on 10/27/2023) multivitamin tablet Take 1 tablet by mouth once daily. (Patient not taking: Reported on 10/27/2023) methocarbamol (ROBAXIN-750) 750 mg tablet Take 1 tablet by mouth three times daily as needed. (Patient not taking: Reported on 03/23/2023) BIOTIN ORAL Take 2 tablets by mouth once daily. 6000 MCG Biotin, with Keratin 50 mg (Patient not taking: Reported on 09/21/2023) CALCIUM ORAL Take 600 mg by mouth [...] specific nursing protocol in the MR contrast administ (more content not included)... Normal [facility] CNPNon 10-27-2023 CNPN Telephone (ENDMED) YARA LOYA ([id number]) 1950 F Date Time Provider Department 10/27/23 LESLIE MONET During your visit today, we recorded the following information about you: Yuliana Bagley RN 10/27/2023 3:49 PM Signed ----- Message from Leslie Monet MD sent at 10/27/2023 11:24 AM EDT ----- Susy, This patient will receive her last Evenity on 11/02/2023. We will transition her to Prolia in December or January, depending on insurance and your availability Thank you HH Lyric So, GREGORIA 10/28/2023 10:52 AM Signed Patient is already scheduled for 11/02/23 for last Evenity. Patient has Medicare A and B as primary insurance so no PA is required. Will schedule patient for Prolia in at her appointment. Closed Allergies As of Date: 10/27/2023 Noted Allergy Reaction SEASONAL ALLERGIES 09/20/2013 14 - Other: See Comments Comments: sinus Date Reviewed: 10/27/2023 Reviewed by: Kirsten Hall MA - Fully Assessed Reason for Visit: Orders [681] Prescriptions as of 10/28/2023 - tiZANidine (ZANAFLEX) 2 mg tablet Take 1 tablet by mouth every 8 hours as needed. - multivitamin tablet Take 1 tablet by mouth once daily. - TURMERIC ORAL Take 1 tablet by mouth once daily. - methocarbamol (ROBAXIN-750) 750 mg tablet Take 1 tablet by mouth three times daily as needed. - BIOTIN ORAL Take 2 tablets by mouth once daily. 6000 MCG Biotin, with Keratin 50 mg - CALCIUM ORAL Take 600 mg by mouth once daily. - iv contrast (will be provided with radiology [...] in the MR contrast administration guidelines link. - iv contrast (will be provided with radiology [...] in the MR contrast administration guidelines link. - hydrOXYchloroQUINE (PLAQUENIL) 200 mg tablet Take 200 mg by mouth once daily. - folic acid 0.8 mg cap Take 2 capsules by mouth once daily. - methotrexate 2.5 mg tablet Take 8 tablets by mouth once weekly. - oxyCODONE myristate (XTAMPZA ER) 13.5 mg CSpT Take 1 capsule by mouth two times a day. - cholecalciferol (VITAMIN D3) 5,000 unit tab Take 5,000 Units by mouth once daily. - cetirizine (ZYRTEC) 10 mg tablet Take 10 mg by mouth once daily. - predniSONE (DELTASONE) 10 mg tablet Take 10 mg by mouth once daily. - gabapentin (NEURONTIN) 300 mg capsule Take 1 capsule by mouth twice daily for 180 days. - CALCIUM CARBONATE (CALCIUM 300 ORAL) Take 1 tablet by mouth once daily. - meloxicam (MOBIC) 15 mg tablet Take 1 tablet by mouth once daily. Take with food. - OMEGA-3 FATTY ACIDS/FISH OIL (OMEGA 3 FISH OIL ORAL) Take by mouth once daily. Problem List As Of Date 10/27/2023 Noted Resolved Osteoporosis [M81.0] 12/30/2012 Arthritis [M19.90] 12/30/2012 Herniated cervical disc [M50.20] 12/30/2012 Fibromyalgia [M79.7] 12/30/2012 Back pain, lumbosacral [M54.50] 12/30/2012 Pruritus ani [L29.0] 04/20/2013 09/20/2013 Hemorrhoids [K64.9] 08/03/2013 09/20/2013 Eczema [L30.9] 09/20/2013 Pain in joint, site unspecified [M25.50] 04/11/2014 Cervicalgia [M54.2] 09/20/2014 Tobacco abuse disorder [Z72.0] 09/20/2014 Hyperlipidemia [E78.5] 09/20/2014 Encounter Status:Closed by LYRIC SO on 10/28/23 Normal [facility] CCP IgG/IgA Abson 10-22-2023 CCP Antibodies IgG/IgA 1 units Normal 0-19 [facility] Comment on above: Order Comment: Perfo rmed at: - [facility] [address] [id number] Oxyacetylene Cutter: Sidney Melo PhD, Phone: [phone] Result Comment: Nega tive <20 Weak positive 20 - 39 Moderate positive 40 - 59 Strong positive >59 Performed By: #### C CPIGGA #### [facility] RESULTS C-Reactive Proteinon 024 CRP [Mass/Vol] mg/L Normal <=9.9 [facility] Comment on above: Performed By: #### C RPR #### [place] [id number] Rheumatoid Factor (Quant)on 10-20-2023 Rheumatoid Factor <12 Normal <=13 [facility] Comment on above: Performed By: #### R F #### [facility] [address] [place], [place] [id number] CNOVon 10-01-2023 CNOV Office Visit (ENDMED ) YARA LOYA ([id number]) 1950 F Date Time Provider Department 10/01/23 10:00 AM NURSE ARI PADILLA During your visit today, we recorded the following information about you: Lyric So RN 10/01/2023 10:20 AM Signed The patient is here for an injection of Evenity Injection #11 of 12 Dose: 210 mg (105 mg/1.17 mL X2). Route: Subcutaneous Lot# [id number] Expiration date 10/31/2025 [facility]: 88476-462-55 Given without incident. Site: Right arm Dr. Nelson present in clinic at time of injection. The date due for the next injection is in 30 days. On or after 11/01/23. Last Injection: 08/31/23 DAVID: 07/23/22 NOV: 10/27/23 Insurance: Primary= Medicare, Secondary= O-- No PA Required Labs: 03/13/23 Calcium 9.5, Vitamin D 74.1 DX: M81.0 CPT: J3111 DXA: 10/21/22 (T-Score -2.9 Left Forearm) Patient education was given by nurse. Patient tolerated Injection well, in NAD and no reactions noted. Medication supplied by [facility] JONELLE So RN Allergies As of Date: 10/01/2023 Noted Allergy Reaction SEASONAL ALLERGIES 09/20/2013 14 - Other: See Comments Comments: sinus Date Reviewed: 10/01/2023 Reviewed by: Lyric So, GREGORIA - Fully Assessed Reason for Visit: Evenity Injection [Other] Primary Visit Diagnosis:Age-related osteoporosis with current pathological fracture with routine healing, subsequent encounter [M80.00XD] Prescriptions as of 10/01/2023 - tiZANidine (ZANAFLEX) 2 mg tablet Take 1 tablet by mouth every 8 hours as needed. - multivitamin tablet Take 1 tablet by mouth once daily. - TURMERIC ORAL Take 1 tablet by mouth once daily. - methocarbamol (ROBAXIN-750) 750 mg tablet Take 1 tablet by mouth three times daily as needed. - BIOTIN ORAL Take 2 tablets by mouth once daily. 6000 MCG Biotin, with Keratin 50 mg - CALCIUM ORAL Take 600 mg by mouth once daily. - iv contrast (will be provided with radiology [...] in the MR contrast administration guidelines link. - iv contrast (will be provided with radiology [...] in the MR contrast administration guidelines link. - hydrOXYchloroQUINE (PLAQUENIL) 200 mg tablet Take 200 mg by mouth once daily. - folic acid 0.8 mg cap Take 2 capsules by mouth once daily. - methotrexate 2.5 mg tablet Take 8 tablets by mouth once weekly. - oxyCODONE myristate (XTAMPZA ER) 13.5 mg CSpT Take 1 capsule by mouth two times a day. - cholecalciferol (VITAMIN D3) 5,000 unit tab Take 5,000 Units by mouth once daily. - cetirizine (ZYRTEC) 10 mg tablet Take 10 mg by mouth once daily. - predniSONE (DELTASONE) 10 mg tablet Take 10 mg by mouth once daily. - gabapentin (NEURONTIN) 300 mg capsule Take 1 capsule by mouth twice daily for 180 days. - CALCIUM CARBONATE (CALCIUM 300 ORAL) Take 1 tablet by mouth once daily. - meloxicam (MOBIC) 15 mg tablet Take 1 tablet by mouth once daily. Take with food. - OMEGA-3 FATTY ACIDS/FISH OIL (OMEGA 3 FISH OIL ORAL) Take by mouth once daily. Facility-Administered Medications as of 10/01/2023 - romosozumab-aqqg 210 mg injection (EVENITY) Problem List As Of Date 10/01/2023 Noted Resolved Osteoporosis [M81.0] 12/30/2012 Arthritis [M19.90] 12/30/2012 Herniated cervical disc [M50.20] 12/30/2012 Fibromyalgia [M79.7] 12/30/2012 Back pain, lumbosacral [M54.50] 12/30/2012 Pruritus ani [L29.0] 04/20/2013 09/20/2013 Hemorrhoids [K64.9] 08/03/2013 09/20/2013 Eczema [L30.9] 09/20/2013 Pain in joint, site unspecified [M25.50] 04/11/2014 Cervicalgia [M54.2] 09/20/2014 Tobacco abuse disorder [Z72.0] 09/20/2014 Hyperlipidemia [E78.5] 09/20/2014 Visit Notes: >> Lyric So RN Kathy October 01, 2023 10:16 AM Status: Signed The patient is here for an injection of Evenity Injection #11 of 12 Dose: 210 mg (105 mg/1.17 mL X2). Route: Subcutaneous Lot# [id number] Expiration date 10/31/2025 [facility]: 70087-202-47 Given without incident. Site: Right arm Dr. Nelson present in clinic at time of injection. The date due for the next injection is in 30 days. On or after 11/01/23. Last (more content not included)... Normal [facility] CNOVSPon 09-29-2023 CNOVS Visit (SP) Office (KASH) YARA LOYA ([id number]) 1950 F Date Time Provider Department 09/29/23 10:20 AM [place]AM [place]S During your visit today, we recorded the following information about you: Temperature Pulse Blood pressure Weight 97.3 degrees 96/minute 122/76 46 kg Wisam Mills MD 09/29/2023 3:29 PM Signed (Elements copied from my note dated ,March 24, 2023 have been reviewed and updated where appropriate, and all reflect current assessment and medical decision making from today's encounter, September 29, 2023) HISTORY OF PRESENT ILLNESS: Yara Loya is a 71 year old female referred for monoclonal gammopathy. Feels well, found on basis of osteopenia work up. Reviewed possible implications. Here for follow up, reviewed labs IgM monoclonal gammopathy. Reviewed scans, no adenopathy. CLINICAL IMPRESSION: Monoclonal gammopathy, IgM subtype appears to be of unknown significance RECOMMENDATION/PLAN: 1. MGUS Labs and follow up 6 months. 2. Anemia labs when feasible Written and verbal health teaching given to patient, patient verbalizes understanding and agrees with treatment plan. PAST MEDICAL HISTORY Diagnosis Date Arthritis of neck Fibromyalgia Herniated disc, cervical she says she has 7 herniated discs Osteoporosis PAST SURGICAL HISTORY Procedure Laterality Date ARTHRD ANT INTERBODY MIN DSC CRV BELOW C2 12/14/14 DISCECTOMY ANT DCMPRN CORD CERVICAL 1 [facility] 12/14/14 DISCECTOMY ANT DCMPRN CORD CERVICAL EA [facility] 12/14/14 HEMORRHOID SURGERY HX 2013 PAST [...] Other: See Comments sinus CURRENT OUTPATIENT MEDICATIONS: tiZANidine (ZANAFLEX) 2 mg tabletTake 1 tablet by mouth every 8 hours as needed.Disp: 30 tabletRfl: 0 TURMERIC ORALTake 1 tablet by mouth once [...] 10 mg by mouth once daily.Disp: Rfl: multivitamin tabletTake 1 tablet by mouth once daily.Disp: Rfl: methocarbamol (ROBAXIN-750) 750 mg tabletTake 1 tablet by mouth three times daily as needed.Disp: 60 tabletRfl: 0 (Patient not taking: Reported on 03/23/2023) BIOTIN ORALTake 2 tablets by mouth once daily. 6000 MCG Biotin, with Keratin 50 mgDisp: Rfl: (Patient not taking: Reported on 09/21/2023) CALCIUM ORALTake 600 mg by mouth once [...] EachRfl: 0 (Patient not taking: Reported on 09/21/2023) iv contrast (will be provided with radiology [...] EachRfl: 0 (Patient not taking: Reported on 09/21/2023) cetirizine (ZYRTEC) 10 mg tabletTake 10 mg by mouth once daily.Disp: Rfl: (Patient not taking: Reported on 03/23/2023) gabapentin (NEURONTIN) 300 mg capsuleTake 1 capsule by mouth twice daily for 180 days.Disp: 180 capsuleRfl: 1 (Patient not taking: Reported on 03/23/2023) CALCIUM CARBONATE (CALCIUM 300 ORAL)Take 1 tablet by mouth once daily.Disp: Rfl: (Patient not taking: Reported on 09/21/2023) meloxicam (MOBIC) 15 mg tabletTake 1 tablet b (more content not included)... Normal [facility] Basic metabolic 2000 panelon 09-21-2023 Anion gap [Moles/Vol] 10 mmol/L Normal 9-18 [facility] Comment on above: Order Comment: Speci men Type: BLOOD SPECIMEN [facility] Facility: [facility] Address: [address] [place] [address] Performed By: #### 2 4321-2 #### [facility] CLIA [id number] [address] [place] [address] [place] Calcium [Mass/Vol] 9.3 mg/dL Normal 8.5-10.2 [facility] Comment on above: Order Comment: Speci men Type: BLOOD SPECIMEN Ordering Facility: [facility] Address: [address] [place] [address] Performed By: #### 2 4321-2 #### [facility] CLIA [id number] [address] [place] [address] [place] Chloride [Moles/Vol] 106 mmol/L High 97-105 [facility] Comment on above: Order Comment: Speci men Type: BLOOD SPECIMEN [facility]ing Facility: [facility] Address: [address] [place] [address] Performed By: #### 2 4321-2 #### [facility] CLIA [id number] [address] [place] [address] [place] CO2 [Moles/Vol] 25 mmol/L Normal 22-30 [facility] Comment on above: Order Comment: Speci men Type: BLOOD SPECIMEN [facility]ing Facility: [facility] Address: [address] [place] [address] Performed By: #### 2 4321-2 #### [facility] CLIA [id number] [address] [place] [address] [place] Creatinine [Mass/Vol] 0.87 mg/dL Normal 0.58-0.96 [facility] Comment on above: Order Comment: Speci men Type: BLOOD SPECIMEN [facility]ing Facility: [facility] Address: [address] [place] [address] Performed By: #### 2 4321-2 #### [facility] CLIA [id number] [address] Creatinine and Glomerular filtration rate.predicted panel (S/P/Bld) 71 mL/min/1.73m??? Normal >=60 [facility] Comment on above: Order Comment: Demarcus dye Type: BLOOD SPECIMEN [facility] Address: [address] [place] [address] Result Comment: July mated Glomerular Filtration Rate (eGFR) is calculated using the 2020 CKD-EPI creatinine equation. This equation utilizes serum creatinine, sex, and age as parameters. The creatinine assay has traceable calibration to isotope dilution-mass spectrometry. Refer to KDIGO guidelines for clinical interpretation. In patients with unstable renal function, e.g. those with acute kidney injury, the eGFR may not accurately reflect actual GFR. Performed By: #### 2 4321-2 #### [facility] CLIA [id number] [address] STATES [facility] Glucose [Mass/Vol] 89 mg/dL Normal 74-99 [facility] Comment on above: Order Comment: Demarcus dye Type: BLOOD SPECIMEN [facility] Address: [address] [place] [address] Result Comment: The [place] Diabetes [employer] (ADA) provides guidance for cutoff values for fasting glucose and random glucose. The ADA defines fasting as no caloric intake for at least 8 hours. Fasting plasma glucose results between 100 to 125 mg/dL indicate increased risk for diabetes (prediabetes). Fasting plasma glucose results greater than or equal to 126 mg/dL meet the criteria for diagnosis of diabetes. In the absence of unequivocal hyperglycemia, results should be confirmed by repeat testing. In a patient with classic symptoms of hyperglycemia or hyperglycemic crisis, random plasma glucose results greater than or equal to 200 mg/dL meet the criteria for diagnosis of diabetes. Reference: Standards of Medical Care in Diabetes 2016, [place] [employer] Association. Diabetes Care. 2016.39(Suppl 1). Performed By: #### 2 4321-2 #### [facility] CLIA [id number] [address] [place] Potassium [Moles/Vol] 4.6 mmol/L Normal 3.7-5.1 [facility] Comment on above: Order Comment: Speci men Type: BLOOD SPECIMEN [facility] Address: [address] [place] [address] Performed By: #### 2 4321-2 #### [facility] CLIA [id number] [address] [place] Sodium [Moles/Vol] 141 mmol/L Normal 136-144 [facility] Comment on above: Order Comment: Speci men Type: BLOOD SPECIMEN [facility] Address: [address] [place] [address] Performed By: #### 2 4321-2 #### [facility] CLIA [id number] [address] [place] [facility] Urea nitrogen [Mass/Vol] 17 mg/dL Normal 7-21 [facility] Comment on above: Order Comment: Speci men Type: BLOOD SPECIMEN [facility] Address: [address] [place] [address] Performed By: #### 2 4321-2 #### [facility] CLIA [id number] [address] [place] CBC W Auto Differential pane l (Bld)on 09-21-2023 Basophils (Bld) [#/Vol] 0.06 10*3/uL Normal <0.11 [facility] Comment on above: Order Comment: Speci men Type: BLOOD SPECIMEN [facility]ing [facility] Address: [address] [place] [address] Performed By: #### 5 7021-8 #### [facility] CLIA [id number] [address] Basophils/100 WBC (Bld) 0.8 % Normal [facility] Comment on above: Order Comment: Speci men Type: BLOOD SPECIMEN [facility] Address: [address] [place] [address] Performed By: #### 5 7021-8 #### [facility] CLIA [id number] [address] [place] Differential cell count method Nom (Bld) Auto Normal [facility] Comment on above: Order Comment: Speci men Type: BLOOD SPECIMEN [facility] Address: [address] [place] [address] Performed By: #### 5 7021-8 #### [facility] CLIA [id number] [address] [place] [address] [place] Eosinophils (Bld) [#/Vol] 0.15 10*3/uL Normal <0.46 [facility] Comment on above: Order Comment: Speci men Type: BLOOD SPECIMEN [facility] Address: [address] [place] [address] Performed By: #### 5 7021-8 #### [facility] CLIA [id number] [address] [place] Eosinophils/100 WBC (Bld) 2.1 % Normal [facility] Comment on above: Order Comment: Speci men Type: BLOOD SPECIMEN [facility] Address: [address] [place] [address] Performed By: #### 5 7021-8 #### [facility] CLIA [id number] [address] [place] Erythrocyte distribution width (RBC) [Ratio] 13.8 % Normal 11.5-15.0 [facility] Comment on above: Order Comment: Speci men Type: BLOOD SPECIMEN [facility] Address: [address] [place] [address] Performed By: #### 5 7021-8 #### [facility] CLIA [id number] [address] [place] Hematocrit (Bld) [Volume fraction] 33.0 % Low 36.0-46.0 [facility] Comment on above: Order Comment: Speci men Type: BLOOD SPECIMEN [facility] Address: [address] [place] [address] Performed By: #### 5 7021-8 #### [facility] CLIA [id number] [address] [place] Hemoglobin (Bld) [Mass/Vol] 10.6 g/dL Low 11.5-15.5 [facility] Comment on above: Order Comment: Speci men Type: BLOOD SPECIMEN [facility] Address: [address] [place] [address] Performed By: #### 5 7021-8 #### [facility] CLIA [id number] [address] [place] [address] [place] Immature granulocytes (Bld) [#/Vol] 0.03 10*3/uL Normal <0.10 [facility] Comment on above: Order Comment: Speci men Type: BLOOD SPECIMEN [facility] Address: [address] [place] [address] Performed By: #### 5 7021-8 #### [facility] CLIA [id number] [address] Immature granulocytes/100 WBC (Bld) 0.4 % Normal [facility] Comment on above: Order Comment: Speci men Type: BLOOD SPECIMEN [facility] Address: [address] [place] [address] Performed By: #### 5 7021-8 #### [facility] CLIA [id number] [address] [place] Lymphocytes (Bld) [#/Vol] 1.35 10*3/uL Normal 1.00-4.00 [facility] Comment on above: Order Comment: Speci men Type: BLOOD SPECIMEN [facility] Address: [address] [place] [address] Performed By: #### 5 7021-8 #### [facility] CLIA [id number] [address] [place] Lymphocytes/100 WBC (Bld) 18.7 % Normal [facility] Comment on above: Order Comment: Speci men Type: BLOOD SPECIMEN Order[facility] Address: [address] [place] [address] Performed By: #### 5 7021-8 #### [facility] CLIA [id number] [address] MCH (RBC) [Entitic mass] 32.8 pg Normal 26.0-34.0 [facility] Comment on above: Order Comment: Speci men Type: BLOOD SPECIMEN Order[facility] Address: [address] [place] [address] Performed By: #### 5 7021-8 #### [facility] CLIA [id number] [address] [place] MCHC (RBC) [Mass/Vol] 32.1 g/dL Normal 30.5-36.0 [facility] Comment on above: Order Comment: Speci men Type: BLOOD SPECIMEN Order[facility] Address: [address] [place] [address] Performed By: #### 5 7021-8 #### [facility] CLIA [id number] [address] MCV (RBC) [Entitic vol] 102.2 fL High 80.0-100.0 [facility] Comment on above: Order Comment: Speci men Type: BLOOD SPECIMEN Order[facility] Address: [address] [place] [address] Performed By: #### 5 7021-8 #### [facility] CLIA [id number] [address] Monocytes (Bld) [#/Vol] 0.52 10*3/uL Normal <0.87 [facility] Comment on above: Order Comment: Speci men Type: BLOOD SPECIMEN Order[facility] Address: [address] [place] [address] Performed By: #### 5 7021-8 #### [facility] CLIA [id number] [address] Monocytes/100 WBC (Bld) 7.2 % Normal [facility] Comment on above: Order Comment: Speci men Type: BLOOD SPECIMEN Ordering Facility[facility] Address: [address] [place] [address] Performed By: #### 5 7021-8 #### [facility] CLIA [id number] [address] [place] [address] [place] Neutrophils (Bld) [#/Vol] 5.11 10*3/uL Normal 1.45-7.50 [facility] Comment on above: Order Comment: Speci men Type: BLOOD SPECIMEN Ordering Facility[facility] Address: [address] [place] [address] Performed By: #### 5 7021-8 #### [facility] CLIA [id number] [address] [place] Neutrophils/100 WBC (Bld) 70.8 % Normal [facility] Comment on above: Order Comment: Speci men Type: BLOOD SPECIMEN Order[facility] Address: [address] [place] [address] Performed By: #### 5 7021-8 #### [facility] CLIA [id number] [address] [place] [address] [place] Nucleated RBC (Bld) [#/Vol] 10*3/uL Normal <0.01 [facility] Comment on above: Order Comment: Speci men Type: BLOOD SPECIMEN Order[facility] Address: [address] [place] [address] Performed By: #### 5 7021-8 #### [facility] CLIA [id number] [address] Nucleated RBC/100 WBC (Bld) [Ratio] 0.0 /100 WBC Normal [facility] Comment on above: Order Comment: Speci men Type: BLOOD SPECIMEN Order[facility] Address: [address] [place] [address] Performed By: #### 5 7021-8 #### [facility] CLIA [id number] [address] [place] [address] [place] Platelet mean volume (Bld) [Entitic vol] 10.2 fL Normal 9.0-12.7 [facility] Comment on above: Order Comment: Speci men Type: BLOOD SPECIMEN [facility] Address: [address] [place] [address] Performed By: #### 5 7021-8 #### [facility] CLIA [id number] [address] [place] [address] [place] [facility] [place] Platelets (Bld) [#/Vol] 275 10*3/uL Normal 150-400 [facility] Comment on above: Order Comment: Speci men Type: BLOOD SPECIMEN [facility] Address: [address] [place] [address] Performed By: #### 5 7021-8 #### [facility] CLIA [id number] [address] [place] [address] [place] RBC (Bld) [#/Vol] 3.23 10*6/uL Low 3.90-5.20 [facility] Comment on above: Order Comment: Speci men Type: BLOOD SPECIMEN [facility] Address: [address] [place] [address] Performed By: #### 5 7021-8 #### [facility] CLIA [id number] [address] [place] [address] [place] [facility] [place] WBC (Bld) [#/Vol] 7.22 10*3/uL Normal 3.70-11.00 [facility] Comment on above: Order Comment: Speci men Type: BLOOD SPECIMEN [facility] Address: [address] [place] [address] Performed By: #### 5 7021-8 #### [facility] CLIA [id number] [address] OF [facility] CNOVon 09-21-2023 CNOV Office Visit ([facility] ) YARA LOYA ([id number]) 1950 F Date Time Provider Department 09/21/23 10:40 AM JAMIE BULL [facility] During your visit today, we recorded the following information about you: Pulse Blood pressure Weight 98/minute 123/83 45.1 kg Jamie Bull MD 09/21/2023 11:56 AM Signed SPINE SURGERY ESTABLISHED VISIT This is an in-person visit. DATE OF SERVICE: 09/20/2023 DATE OF LAST VISIT: 03/23/2023 SUBJECTIVE: HPI:Yara Loya is a 72 year old female presenting alone She c/o shoulder pain and constant neck pain. Pain is around her whole neck radiating to bilateral arms. Pain is worsened by neck movement. She is taking Xtampza for pain management. She notes that she discontinued Robaxin and gabapentin because it made her really fatigued. She agrees to try another muscle relaxant and will continue to consider surgery. She is receiving injections for her osteoporosis. MEDICATIONS: multivitamin tabletTake 1 tablet by mouth [...] 10 mg by mouth once daily.Disp: Rfl: tiZANidine (ZANAFLEX) 2 mg tabletTake 1 tablet by mouth every 8 hours as needed.Disp: 30 tabletRfl: 0 methocarbamol (ROBAXIN-750) 750 mg tabletTake 1 tablet by mouth three times daily as needed.Disp: 60 tabletRfl: 0 (Patient not taking: Reported on 03/23/2023) BIOTIN ORALTake 2 tablets by mouth once daily. 6000 MCG Biotin, with Keratin 50 mgDisp: Rfl: (Patient not taking: Reported on 09/21/2023) CALCIUM ORALTake 600 mg by mouth once [...] EachRfl: 0 (Patient not taking: Reported on 09/21/2023) iv contrast (will be provided with radiology [...] EachRfl: 0 (Patient not taking: Reported on 09/21/2023) cetirizine (ZYRTEC) 10 mg tabletTake 10 mg by mouth once daily.Disp: Rfl: (Patient not taking: Reported on 03/23/2023) gabapentin (NEURONTIN) 300 mg capsuleTake 1 capsule by mouth twice daily for 180 days.Disp: 180 capsuleRfl: 1 (Patient not taking: Reported on 03/23/2023) CALCIUM CARBONATE (CALCIUM 300 ORAL)Take 1 tablet by mouth once daily.Disp: Rfl: (Patient not taking: Reported on 09/21/2023) meloxicam (MOBIC) 15 mg tabletTake 1 tablet by mouth once daily. Take with food.Disp: 30 tabletRfl: 2 (Patient not taking: Reported on 03/23/2023) OMEGA-3 FATTY ACIDS/FISH OIL (OMEGA 3 FISH OIL ORAL)Take by mouth once daily.Disp: Rfl: (Patient not taking: Reported on 05/27/2023) Patient Entered Questionnaires 10/20/2022 03/23/2023 Spine Questions Pain Location: Neck Neck Pain Duration: 1-3 months Symptoms from neck/cervical spine: Yes Yes Employment Status: Retired Retired Involved in law suit/legal claim: No 10/20/2022 03/23/2023 Neck Questionnaires Benzel Modified BIANCA Score 10 (Severe Myelopathy Symptoms) 14 (Moderate Myelopathy Symptoms) PROMIS Score Percentiles 10/20/2022 03/23/2023 Physical Health Physical Function Percentile 8 7 Sleep Percentile 34 34 Fatigue Percentile 50 12 Pain Interference Percentile 12 10 10/20/2022 03/23/2023 PROMIS SOCIAL ROLE SCORE Social Role Satisfaction Percentile 31 42 04/09/2016 10/20/2022 03/23/2023 PROMIS Global Health Scale Physical Health Percentile 0 15 22* 22* Mental Health Percentile 1 9 Percentiles provide an indication of how the patient's score ranks in relation to the general population. Higher percentile rankings ind (more content not included)... Normal [facility] IMMUNOFIXATION SCREEN, SERUM on 09-21-2023 INTERPRETATION (MPA) Atypical restricted bands are present in the IgM and kappa regions. Consistent with IgM kappa monoclonal gammopathy. Normal [facility] Comment on above: Order Comment: Demarcus dye Type: BLOOD SPECIMEN [facility] Address: [address] [place] [address] Performed By: #### I FESC #### [facility] CLIA [id number] [address] [place] [address] [place] MPA RESULT M protein is present. Abnormal No M p rotein is identified. [facility] Comment on above: Order Comment: Demarcus dye Type: BLOOD SPECIMEN [facility] Address: [address] [place] [address] Performed By: #### I FESC #### [facility] CLIA [id number] [address] [place] [address] [place] STAFF REVIEW (MPA) Reviewed by Mo Good MD, Ph.D ([id number]) Normal [facility] Comment on above: Order Comment: Demarcus dye Type: BLOOD SPECIMEN [facility] Address: [address] [place] [address] Performed By: #### I FESC #### [facility] CLIA [id number] [address] [place] [address] [place] IMMUNOGLOBULINS,IGG,IGA,IGMo n 09-21-2023 IgA [Mass/Vol] 106 mg/dL Normal 70-400 [facility] Comment on above: Order Comment: Speci men Type: BLOOD SPECIMEN [facility] Address: [address] [place] [address] Performed By: #### S ERIMM #### [facility] CLIA [id number] [address] [place] [address] [place] IgG [Mass/Vol] 612 mg/dL Low 700-1600 [facility] Comment on above: Order Comment: Speci men Type: BLOOD SPECIMEN [facility] Address: [address] [place] [address] Performed By: #### S ERIMM #### [facility] CLIA [id number] [address] [place] [address] [place] IgM [Mass/Vol] 266 mg/dL High 40-230 [facility] Comment on above: Order Comment: Speci men Type: BLOOD SPECIMEN [facility] Address: [address] [place] [address] Performed By: #### S ERIMM #### [facility] CLIA [id number] [address] [place] [address] [place] KAPPA/SAM,FREE,SERon 2023 Immunoglobulin light chains.kappa.free (S) [Mass/Vol] 23.1 mg/L High 3.3-19.4 [facility] Comment on above: Order Comment: Speci men Type: BLOOD SPECIMEN [facility] Address: [address] [place] [address] Result Comment: Rare ly, increased serum free light chains levels may not be detected or accurately quantified due to prozone phenomenon or in high viscosity samples using this immunoturbidimetric assay. Correlation with other laboratory results and clinical findings is recommended. The Oppelo Free Light Chain was performed using the Binding Site Optilite immunoturbidimetric method. Result obtained with different assay methods or kits cannot be used interchangeably. Performed By: #### K LFRS #### [facility] CLIA [id number] [address] [place] [address] [place] Immunoglobulin light chains.kappa/Immuno globulin light chains.lambda (S) [Mass ratio] 1.88 High 0.26-1.65 [facility] Comment on above: Order Comment: Speci men Type: BLOOD SPECIMEN [facility] Address: [address] [place] [address] Performed By: #### K LFRS #### [facility] CLIA [id number] [address] [place] [address] [place] Immunoglobulin light chains.lambda.free [Mass/Vol] 12.3 mg/L Normal 5.7-26.3 [facility] Comment on above: Order Comment: Desii men Type: BLOOD SPECIMEN [facility] Address: [address] [place] [address] Result Comment: Rare ly, increased serum free light chains levels may not be detected or accurately quantified due to prozone phenomenon or in high viscosity samples using this immunoturbidimetric assay. Correlation with other laboratory results and clinical findings is recommended. The Lambda Free Light Chain was performed using the Binding Site Optilite immunoturbidimetric method. Result obtained with different assay methods or kits cannot be used interchangeably. Performed By: #### K LFRS #### [facility] CLIA [id number] [address] [place] [address] [place] PROTEIN ELECTROPHORESIS SERU M (P)on 09-21-2023 Albumin [Mass/Vol] 4.13 g/dL Normal 3.43-5.41 [facility] Comment on above: Order Comment: Speci men Type: BLOOD SPECIMEN [facility] Address: [address] [place] [address] Performed By: #### L [id number] #### [facility] CLIA [id number] [address] [place] [address] [place] Alpha 1 globulin Elph [Mass/Vol] 0.28 g/dL Normal 0.18-0.43 [facility] Comment on above: Order Comment: Speci men Type: BLOOD SPECIMEN [facility] Address: [address] [place] [address] Performed By: #### L [id number] #### [facility] CLIA [id number] [address] [place] [address] [place] Alpha 2 globulin Elph [Mass/Vol] 0.56 g/dL Normal 0.42-0.98 [facility] Comment on above: Order Comment: Speci men Type: BLOOD SPECIMEN [facility] Address: [address] [place] [address] Performed By: #### L [id number] #### [facility] CLIA [id number] [address] [place] [address] [place] Beta globulin Elph [Mass/Vol] 0.81 g/dL Normal 0.61-1.17 [facility] Comment on above: Order Comment: Speci men Type: BLOOD SPECIMEN [facility] Address: [address] [place] [address] Performed By: #### L [id number] #### [facility] CLIA [id number] [address] [place] [address] [place] Gamma globulin Elph [Mass/Vol] 0.52 g/dL Low 0.53-1.51 [facility] Comment on above: Order Comment: Speci men Type: BLOOD SPECIMEN [facility] Address: [address] [place] [address] Performed By: #### L [id number] #### [facility] CLIA [id number] [address] [place] [address] [place] INTERPRETATION COMMENT FOR PROTEIN ELECTROPHORESIS See separate immunofixation report for characterization of monoclonal gammopathy. Normal [facility] Comment on above: Order Comment: Speci men Type: BLOOD SPECIMEN [facility] [facility] Address: [address] [place] [address] Performed By: #### L [id number] #### [facility] CLIA [id number] [address] [place] [address] [place] M-PROTEIN LOCATION Gamma Fraction 1 Normal [facility] Comment on above: Order Comment: Speci men Type: BLOOD SPECIMEN Ordering Facility: [facility] Address: [address] [place] [address] Result Comment: Not Applicable. Performed By: #### L [id number] #### [facility] CLIA [id number] [address] [place] [address] [place] Protein Fractions [Interp] An M protein is identified on protein electrophoresis. Abnormal No definitive M protein is identified on protein electrophores is. [facility] Comment on above: Order Comment: Speci men Type: BLOOD SPECIMEN Ordering Facility: [facility] Address: [address] [place] [address] Performed By: #### L [id number] #### [facility] CLIA [id number] [address] [place] [address] [place] Protein.monoclonal Elph [Mass/Vol] 0.18 g/dL High <=0.00 [facility] Comment on above: Order Comment: Speci men Type: BLOOD SPECIMEN Ordering Facility: [facility] Address: [address] [place] [address] Performed By: #### L [id number] #### [facility] CLIA [id number] [address] [place] [address] [place] SPE STAFF REVIEW Reviewed by Mo Good MD, Ph.D ([id number]) Normal [facility] Comment on above: Order Comment: Speci men Type: BLOOD SPECIMEN Ordering Facility: [facility] Address: [address] [place] [address] Performed By: #### L [id number] #### [facility] CLIA [id number] [address] [place] [address] [place] Prot SerPl-mCncon 09-21-2023 Protein [Mass/Vol] 6.3 g/dL Normal 6.3-8.0 [facility] Comment on above: Order Comment: Speci men Type: BLOOD SPECIMEN [facility]ing Facility[facility] Address: [address] [place] [address] Performed By: #### 2 [id number] #### [facility] CLIA [id number] [address] [place] [address] [id number] [address] [place] CNOVon 08-31-2023 CNOV Office Visit (ENDMED ) YARA LOYA ([id number]) 1950 F Date Time Provider Department 08/31/23 10:00 AM NURSE ARI YUEN SELINA During your visit today, we recorded the following information about you: Lyric So RN 08/31/2023 10:40 AM Signed The patient is here for an injection of Evenity Injection #10 of 12 Dose: 210 mg (105 mg/1.17 mL X2). Route: Subcutaneous Lot# [id number] Expiration date 10/31/2025 [facility]: 29732-937-54 Given without incident. Site: Right arm Dr. Dougherty present in clinic at time of injection. The date due for the next injection is in 30 days. On or after 09/30/2023. Last Injection: 06/29/23 DAVID: 05/27/23 NOV: Will need 10/27/2023 recommendation Insurance: Primary= Medicare, Secondary= MMO-- No PA Required Labs: 03/13/23 Calcium 9.5, Vitamin D 74.1 DX: M81.0 CPT: J3111 DXA: 10/21/22 (T-Score -2.9 Left Forearm) Patient education was given by nurse. Patient tolerated Injection well, in NAD and no reactions noted. Medication supplied by CC JONELLE So RN Allergies As of Date: 08/31/2023 Noted Allergy Reaction SEASONAL ALLERGIES 09/20/2013 14 - Other: See Comments Comments: sinus Date Reviewed: 08/31/2023 Reviewed by: Lyric So, GREGORIA - Fully Assessed Reason for Visit: Evenity Injection [Other] Primary Visit Diagnosis:Age-related osteoporosis with current pathological fracture with routine healing, subsequent encounter [M80.00XD] Prescriptions as of 10/01/2023 - tiZANidine (ZANAFLEX) 2 mg tablet Take 1 tablet by mouth every 8 hours as needed. - multivitamin tablet Take 1 tablet by mouth once daily. - TURMERIC ORAL Take 1 tablet by mouth once daily. - methocarbamol (ROBAXIN-750) 750 mg tablet Take 1 tablet by mouth three times daily as needed. - BIOTIN ORAL Take 2 tablets by mouth once daily. 6000 MCG Biotin, with Keratin 50 mg - CALCIUM ORAL Take 600 mg by mouth once daily. - iv contrast (will be provided with radiology [...] in the MR contrast administration guidelines link. - iv contrast (will be provided with radiology [...] in the MR contrast administration guidelines link. - hydrOXYchloroQUINE (PLAQUENIL) 200 mg tablet Take 200 mg by mouth once daily. - folic acid 0.8 mg cap Take 2 capsules by mouth once daily. - methotrexate 2.5 mg tablet Take 8 tablets by mouth once weekly. - oxyCODONE myristate (XTAMPZA ER) 13.5 mg CSpT Take 1 capsule by mouth two times a day. - cholecalciferol (VITAMIN D3) 5,000 unit tab Take 5,000 Units by mouth once daily. - cetirizine (ZYRTEC) 10 mg tablet Take 10 mg by mouth once daily. - predniSONE (DELTASONE) 10 mg tablet Take 10 mg by mouth once daily. - gabapentin (NEURONTIN) 300 mg capsule Take 1 capsule by mouth twice daily for 180 days. - CALCIUM CARBONATE (CALCIUM 300 ORAL) Take 1 tablet by mouth once daily. - meloxicam (MOBIC) 15 mg tablet Take 1 tablet by mouth once daily. Take with food. - OMEGA-3 FATTY ACIDS/FISH OIL (OMEGA 3 FISH OIL ORAL) Take by mouth once daily. Facility-Administered Medications as of 10/01/2023 - romosozumab-aqqg 210 mg injection ([facility]) Problem List As Of Date 08/31/2023 Noted Resolved Osteoporosis [M81.0] 12/30/2012 Arthritis [M19.90] 12/30/2012 Herniated cervical disc [M50.20] 12/30/2012 Fibromyalgia [M79.7] 12/30/2012 Back pain, lumbosacral [M54.50] 12/30/2012 Pruritus ani [L29.0] 04/20/2013 09/20/2013 Hemorrhoids [K64.9] 08/03/2013 09/20/2013 Eczema [L30.9] 09/20/2013 Pain in joint, site unspecified [M25.50] 04/11/2014 Cervicalgia [M54.2] 09/20/2014 Tobacco abuse disorder [Z72.0] 09/20/2014 Hyperlipidemia [E78.5] 09/20/2014 Visit Notes: >> Lyric So RN Mon Aug 31, 2023 10:30 AM Status: Signed The patient is here for an injection of Evenity Injection #10 of 12 Dose: 210 mg (105 mg/1.17 mL X2). Route: Subcutaneous Lot# [id number] Expiration date 10/31/2025 [place]: 85435-637-12 Given without incident. Site: Right arm Dr. Dougherty present in clinic at time of injection. The date due for the next injection is i (more content not included)... Normal [facility] Hortencia 07-22-2023 RADHA Telephone (Saplo) YARA LOYA ([id number]) 1950 F Date Time Provider Department 07/22/23 LESLIE MONET During your visit today, we recorded the following information about you: Prachi Ratliff MA 07/22/2023 3:45 PM Signed [facility] from 10/21/2022 Send to scanning when done Leslie Monet MD 07/22/2023 4:08 PM Signed Reviewed. Thank you HH Allergies As of Date: 07/22/2023 Noted Allergy Reaction SEASONAL ALLERGIES 09/20/2013 14 - Other: See Comments Comments: sinus Date Reviewed: 06/29/2023 Reviewed by: Yuliana Bagley RN - Fully Assessed Reason for Visit: Outside Lab Results [753] Cmt: Dexa scan 2022 Prescriptions as of 07/23/2023 - multivitamin tablet Take 1 tablet by mouth once daily. - TURMERIC ORAL Take 1 tablet by mouth once daily. - methocarbamol (ROBAXIN-750) 750 mg tablet Take 1 tablet by mouth three times daily as needed. - BIOTIN ORAL Take 2 tablets by mouth once daily. 6000 MCG Biotin, with Keratin 50 mg - CALCIUM ORAL Take 600 mg by mouth once daily. - iv contrast (will be provided with radiology [...] in the MR contrast administration guidelines link. - iv contrast (will be provided with radiology [...] in the MR contrast administration guidelines link. - hydrOXYchloroQUINE (PLAQUENIL) 200 mg tablet Take 200 mg by mouth once daily. - folic acid 0.8 mg cap Take 2 capsules by mouth once daily. - methotrexate 2.5 mg tablet Take 8 tablets by mouth once weekly. - oxyCODONE myristate (XTAMPZA ER) 13.5 mg CSpT Take 1 capsule by mouth two times a day. - cholecalciferol (VITAMIN D3) 5,000 unit tab Take 5,000 Units by mouth once daily. - cetirizine (ZYRTEC) 10 mg tablet Take 10 mg by mouth once daily. - predniSONE (DELTASONE) 10 mg tablet Take 10 mg by mouth once daily. - gabapentin (NEURONTIN) 300 mg capsule Take 1 capsule by mouth twice daily for 180 days. - CALCIUM CARBONATE (CALCIUM 300 ORAL) Take 1 tablet by mouth once daily. - meloxicam (MOBIC) 15 mg tablet Take 1 tablet by mouth once daily. Take with food. - OMEGA-3 FATTY ACIDS/FISH OIL (OMEGA 3 FISH OIL ORAL) Take by mouth once daily. Facility-Administered Medications as of 07/23/2023 - romosozumab-aqqg 210 mg injection ([facility]) Problem List As Of Date 07/22/2023 Noted Resolved Osteoporosis [M81.0] 12/30/2012 Arthritis [M19.90] 12/30/2012 Herniated cervical disc [M50.20] 12/30/2012 Fibromyalgia [M79.7] 12/30/2012 Back pain, lumbosacral [M54.50] 12/30/2012 Pruritus ani [L29.0] 04/20/2013 09/20/2013 Hemorrhoids [K64.9] 08/03/2013 09/20/2013 Eczema [L30.9] 09/20/2013 Pain in joint, site unspecified [M25.50] 04/11/2014 Cervicalgia [M54.2] 09/20/2014 Tobacco abuse disorder [Z72.0] 09/20/2014 Hyperlipidemia [E78.5] 09/20/2014 Encounter Status:Closed by PRACHI RATLIFF on 07/23/23 [facility] Hortencia 07-17-2023 MARCELLON Telephone (Saplo) YARA LOYA ([id number]) 1950 F Date Time Provider Department 07/17/23 LESLIE MONET During your visit today, we recorded the following information about you: mUa Yee 07/17/2023 9:50 AM Signed Called patient to schedule a July Nurse visit for the Evenity injection. Needs to be 07/28/23 or after. Violeta Frederick 07/17/2023 11:54 AM Signed Patient calling backto report she will be skipping the month of July for her injection due to having surgery. She will resume and has her injections scheduled for August. Thank you Lyric So, GREGORIA 07/21/2023 11:10 AM Signed Patient is scheduled for 08/31/23 at 10am for Evenity. Closed Allergies As of Date: 07/17/2023 Noted Allergy Reaction SEASONAL ALLERGIES 09/20/2013 14 - Other: See Comments Comments: sinus Date Reviewed: 06/29/2023 Reviewed by: Yuliana Bagley, GREGORIA - Fully Assessed Prescriptions as of 07/21/2023 - multivitamin tablet Take 1 tablet by mouth once daily. - TURMERIC ORAL Take 1 tablet by mouth once daily. - methocarbamol (ROBAXIN-750) 750 mg tablet Take 1 tablet by mouth three times daily as needed. - BIOTIN ORAL Take 2 tablets by mouth once daily. 6000 MCG Biotin, with Keratin 50 mg - CALCIUM ORAL Take 600 mg by mouth once daily. - iv contrast (will be provided with radiology [...] in the MR contrast administration guidelines link. - iv contrast (will be provided with radiology [...] in the MR contrast administration guidelines link. - hydrOXYchloroQUINE (PLAQUENIL) 200 mg tablet Take 200 mg by mouth once daily. - folic acid 0.8 mg cap Take 2 capsules by mouth once daily. - methotrexate 2.5 mg tablet Take 8 tablets by mouth once weekly. - oxyCODONE myristate (XTAMPZA ER) 13.5 mg CSpT Take 1 capsule by mouth two times a day. - cholecalciferol (VITAMIN D3) 5,000 unit tab Take 5,000 Units by mouth once daily. - cetirizine (ZYRTEC) 10 mg tablet Take 10 mg by mouth once daily. - predniSONE (DELTASONE) 10 mg tablet Take 10 mg by mouth once daily. - gabapentin (NEURONTIN) 300 mg capsule Take 1 capsule by mouth twice daily for 180 days. - CALCIUM CARBONATE (CALCIUM 300 ORAL) Take 1 tablet by mouth once daily. - meloxicam (MOBIC) 15 mg tablet Take 1 tablet by mouth once daily. Take with food. - OMEGA-3 FATTY ACIDS/FISH OIL (OMEGA 3 FISH OIL ORAL) Take by mouth once daily. Facility-Administered Medications as of 07/21/2023 - romosozumab-aqqg 210 mg injection ([facility]) Problem List As Of Date 07/17/2023 Noted Resolved Osteoporosis [M81.0] 12/30/2012 Arthritis [M19.90] 12/30/2012 Herniated cervical disc [M50.20] 12/30/2012 Fibromyalgia [M79.7] 12/30/2012 Back pain, lumbosacral [M54.50] 12/30/2012 Pruritus ani [L29.0] 04/20/2013 09/20/2013 Hemorrhoids [K64.9] 08/03/2013 09/20/2013 Eczema [L30.9] 09/20/2013 Pain in joint, site unspecified [M25.50] 04/11/2014 Cervicalgia [M54.2] 09/20/2014 Tobacco abuse disorder [Z72.0] 09/20/2014 Hyperlipidemia [E78.5] 09/20/2014 Encounter Status:Closed by LYRIC SO on 07/21/23 Normal [facility] CNOVon 06-29-2023 CNOV Office Visit (ENDMED ) ERICYARA Rivers ([id number]) 1950 F Date Time Provider Department 06/29/23 10:00 AM NURSE [facility] SELINA During your visit today, we recorded the following information about you: Yuliana Bagley RN 06/29/2023 10:24 AM Signed The patient is here for an injection of Evenity Injection #9 of 12 Dose: 210 mg (105 mg/1.17 mL X2). Route: Subcutaneous Lot# [id number] Expiration date 10/31/2024 [facility]: 52603-082-48 Given without incident. Site: Right arm Dr. Dougherty present in clinic at time of injection. The date due for the next injection is in 30 days. On or after 07/28/2023. Last Injection: 05/27/23 DAVID: 05/27/23 NOV: Will need 10/2023 or 11/[address] Monet recommendation Insurance: Primary= Medicare, Secondary= O-- No PA Required Labs: 03/13/23 Calcium 9.5, Vitamin D 74.1 DX: M81.0 CPT: J3111 DXA: 10/16/20 (TScore -2.9). patient state's she had a DXA in 10/2022 at [facility] (will call and obtain results). Patient education was given by nurse. Patient tolerated Injection well, in NAD and no reactions noted. Medication supplied by CC JONELLE Bagley RN Allergies As of Date: 06/29/2023 Noted Allergy Reaction SEASONAL ALLERGIES 09/20/2013 14 - Other: See Comments Comments: sinus Date Reviewed: 06/29/2023 Reviewed by: Yuliana Bagley, RN - Fully Assessed Reason for Visit: EVENITY INJECTION #9 OF 12 [Other] Primary Visit Diagnosis:Age-related osteoporosis with current pathological fracture with routine healing, subsequent encounter [M80.00XD] Prescriptions as of 06/29/2023 - multivitamin tablet Take 1 tablet by mouth once daily. - TURMERIC ORAL Take 1 tablet by mouth once daily. - methocarbamol (ROBAXIN-750) 750 mg tablet Take 1 tablet by mouth three times daily as needed. - BIOTIN ORAL Take 2 tablets by mouth once daily. 6000 MCG Biotin, with Keratin 50 mg - CALCIUM ORAL Take 600 mg by mouth once daily. - iv contrast (will be provided with radiology [...] in the MR contrast administration guidelines link. - iv contrast (will be provided with radiology [...] in the MR contrast administration guidelines link. - hydrOXYchloroQUINE (PLAQUENIL) 200 mg tablet Take 200 mg by mouth once daily. - folic acid 0.8 mg cap Take 2 capsules by mouth once daily. - methotrexate 2.5 mg tablet Take 8 tablets by mouth once weekly. - oxyCODONE myristate (XTAMPZA ER) 13.5 mg CSpT Take 1 capsule by mouth two times a day. - cholecalciferol (VITAMIN D3) 5,000 unit tab Take 5,000 Units by mouth once daily. - cetirizine (ZYRTEC) 10 mg tablet Take 10 mg by mouth once daily. - predniSONE (DELTASONE) 10 mg tablet Take 10 mg by mouth once daily. - gabapentin (NEURONTIN) 300 mg capsule Take 1 capsule by mouth twice daily for 180 days. - CALCIUM CARBONATE (CALCIUM 300 ORAL) Take 1 tablet by mouth once daily. - meloxicam (MOBIC) 15 mg tablet Take 1 tablet by mouth once daily. Take with food. - OMEGA-3 FATTY ACIDS/FISH OIL (OMEGA 3 FISH OIL ORAL) Take by mouth once daily. Facility-Administered Medications as of 06/29/2023 - romosozumab-aqqg 210 mg injection ([facility]) Problem List As Of Date 06/29/2023 Noted Resolved Osteoporosis [M81.0] 12/30/2012 Arthritis [M19.90] 12/30/2012 Herniated cervical disc [M50.20] 12/30/2012 Fibromyalgia [M79.7] 12/30/2012 Back pain, lumbosacral [M54.50] 12/30/2012 Pruritus ani [L29.0] 04/20/2013 09/20/2013 Hemorrhoids [K64.9] 08/03/2013 09/20/2013 Eczema [L30.9] 09/20/2013 Pain in joint, site unspecified [M25.50] 04/11/2014 Cervicalgia [M54.2] 09/20/2014 Tobacco abuse disorder [Z72.0] 09/20/2014 Hyperlipidemia [E78.5] 09/20/2014 Visit Notes: >> Yuliana Bagley RN Mon Jun 29, 2023 10:20 AM Status: Signed The patient is here for an injection of Evenity Injection #9 of 12 Dose: 210 mg (105 mg/1.17 mL X2). Route: Subcutaneous Lot# [id number] Expiration date 10/31/2024 [facility]: 77138-806-77 Given without incident. Site: Right arm Dr. Dougherty present in clinic at time of injection. The date due for the next injection is in (more content not included)... Normal [facility] CNOVon 05-27-2023 CNOV Office Visit (ENDMED ) YARA LOYA ([id number]) 1950 F Date Time Provider Department 05/27/23 3:20 PM LESLIE MONET During your visit today, we recorded the following information about you: Pulse Respiration Blood pressure Weight 57/minute 16/minute 130/84 45.2 kg Height 1.473 m Leslie Monet MD 05/27/2023 3:02 PM Signed ENDOCRINOLOGY CLINIC NOTE Reason for visit Yara [...] T12 fracture Treatment history (including any side effects/contraindicati ons): Prolia for 10 years then switched to [...] 12/14/14 DISCECTOMY ANT DCMPRN CORD CERVICAL 1 [facility] 12/14/14 DISCECTOMY ANT DCMPRN CORD CERVICAL EA [facility] 12/14/14 HEMORRHOID SURGERY HX 2013 PAST [...] TSP Inject, intravenously, once for 1 dose. (more content not included)... Normal [facility] CN Office Visit (ENDMED ) YARA LOYA ([id number]) 1950 F Date Time Provider Department 05/27/23 3:20 PM NURSE [facility] SELINA During your visit today, we recorded the following information about you: Yuliana Bagley, RN 05/27/2023 3:32 PM Signed The patient is here for an injection of Evenity Injection #8 of 12 Dose: 210 mg (105 mg/1.17 mL X2). Route: Subcutaneous Lot# [id number] Expiration date 06/03/2025 [facility]: 04327-020-81 Given without incident. Site: Right arm Dr. Monet present in clinic at time of injection. The date due for the next injection is in 30 days. On or after 06/27/2023. However, patient will be having shoulder replacement surgery on 06/17/23 or 06/24/23 and may not be released to drive at this time. Will skip this injection and resume at the 07/26/23 injection. May move it sooner in July if she has been released from surgery earlier in July. Last Injection: 04/22/23 DAVID: Today NOV: Will need 10/2023 or 11/[address] Monet recommendation Insurance: Primary= Medicare, Secondary= MMO-- No PA Required Labs: 03/13/23 Calcium 9.5, Vitamin D 74.1 DX: M81.0 CPT: J3111 DXA: 10/16/20 (TScore -2.9). patient state's she had a DXA in 10/2022 at [facility] (will call and obtain results). Patient education was given by nurse. Patient tolerated Injection well, in NAD and no reactions noted. Medication supplied by [facility]. Referring Provider: JAMIE BULL [[id number]] Allergies As of Date: 05/27/2023 Noted Allergy Reaction SEASONAL ALLERGIES 09/20/2013 14 - Other: See Comments Comments: sinus Date Reviewed: 05/27/2023 Reviewed by: Yuliana Bagley, GREGORIA - Fully Assessed Reason for Visit: EVENITY INJECTION #8 OF 12 [Other] Primary Visit Diagnosis:Age-related osteoporosis with current pathological fracture with routine healing, subsequent encounter [M80.00XD] Prescriptions as of 05/27/2023 - multivitamin tablet Take 1 tablet by mouth once daily. - TURMERIC ORAL Take 1 tablet by mouth once daily. - methocarbamol (ROBAXIN-750) 750 mg tablet Take 1 tablet by mouth three times daily as needed. - BIOTIN ORAL Take 2 tablets by mouth once daily. 6000 MCG Biotin, with Keratin 50 mg - CALCIUM ORAL Take 600 mg by mouth once daily. - iv contrast (will be provided with radiology [...] in the MR contrast administration guidelines link. - iv contrast (will be provided with radiology [...] in the MR contrast administration guidelines link. - hydrOXYchloroQUINE (PLAQUENIL) 200 mg tablet Take 200 mg by mouth once daily. - folic acid 0.8 mg cap Take 2 capsules by mouth once daily. - methotrexate 2.5 mg tablet Take 8 tablets by mouth once weekly. - oxyCODONE myristate (XTAMPZA ER) 13.5 mg CSpT Take 1 capsule by mouth two times a day. - cholecalciferol (VITAMIN D3) 5,000 unit tab Take 5,000 Units by mouth once daily. - cetirizine (ZYRTEC) 10 mg tablet Take 10 mg by mouth once daily. - predniSONE (DELTASONE) 10 mg tablet Take 10 mg by mouth once daily. - gabapentin (NEURONTIN) 300 mg capsule Take 1 capsule by mouth twice daily for 180 days. - CALCIUM CARBONATE (CALCIUM 300 ORAL) Take 1 tablet by mouth once daily. - meloxicam (MOBIC) 15 mg tablet Take 1 tablet by mouth once daily. Take with food. - OMEGA-3 FATTY ACIDS/FISH OIL (OMEGA 3 FISH OIL ORAL) Take by mouth once daily. Facility-Administered Medications as of 05/27/2023 - romosozumab-aqqg 210 mg injection ([facility]) Problem List As Of Date 05/27/2023 Noted Resolved Osteoporosis [M81.0] 12/30/2012 Arthritis [M19.90] 12/30/2012 Herniated cervical disc [M50.20] 12/30/2012 Fibromyalgia [M79.7] 12/30/2012 Back pain, lumbosacral [M54.50] 12/30/2012 Pruritus ani [L29.0] 04/20/2013 09/20/2013 Hemorrhoids [K64.9] 08/03/2013 09/20/2013 Eczema [L30.9] 09/20/2013 Pain in joint, site unspecified [M25.50] 04/11/2014 Cervicalgia [M54.2] 09/20/2014 Tobacco abuse disorder [Z72.0] 09/20/2014 Hyperlipidemia [E78.5] 09/20/2014 Visit Notes: >> Yuliana Bagley RN Wed May 27, 2023 3:23 PM Status: Signed The patient is here for an inject (more content not included)... Normal [facility] CNOVon 04-22-2023 CNOV Office Visit (ENDMED ) ERICYARA JASSO ([id number]) 1950 F Date Time Provider Department 04/22/23 10:30 AM NURSE ARI PADILLA During your visit today, we recorded the following information about you: Lyric So RN 04/22/2023 10:42 AM Signed The patient is here for an injection of Evenity Injection #7 of 12 Dose: 210 mg (105 mg/1.17 mL X2). Route: Subcutaneous Lot# [id number] Expiration date 01/31/2025 [facility]: 65636-888-67 Given without incident. Site: Right arm Dr. Monet present in clinic at time of injection. The date due for the next injection is in 30 days. On or after 05/23/23. Last Injection: 03/23/23 DAVID: 09/10/2022 NOV: 05/27/23 Insurance: Primary= Medicare, Secondary= [employer]-- No PA Required Labs: 03/13/23 Calcium 9.5, Vitamin D 74.1 DX: M81.0 CPT: J3111 DXA: 10/16/20 (TScore -2.9) Patient education was given by nurse. Patient tolerated Injection well, in NAD and no reactions noted. Medication supplied by [facility]. Lyric So RN Referring Provider: JAMIE BULL [[id number]] Allergies As of Date: 04/22/2023 Noted Allergy Reaction SEASONAL ALLERGIES 09/20/2013 14 - Other: See Comments Comments: sinus Date Reviewed: 04/22/2023 Reviewed by: Lyric So, GREGORIA - Fully Assessed Reason for Visit: Evenity Injection [Other] Primary Visit Diagnosis:Age-related osteoporosis with current pathological fracture with routine healing, subsequent encounter [M80.00XD] Prescriptions as of 04/22/2023 - multivitamin tablet Take 1 tablet by mouth once daily. - TURMERIC ORAL Take 1 tablet by mouth once daily. - methocarbamol (ROBAXIN-750) 750 mg tablet Take 1 tablet by mouth three times daily as needed. - BIOTIN ORAL Take 2 tablets by mouth once daily. 6000 MCG Biotin, with Keratin 50 mg - CALCIUM ORAL Take 600 mg by mouth once daily. - iv contrast (will be provided with radiology [...] in the MR contrast administration guidelines link. - iv contrast (will be provided with radiology [...] in the MR contrast administration guidelines link. - hydrOXYchloroQUINE (PLAQUENIL) 200 mg tablet Take 200 mg by mouth once daily. - folic acid 0.8 mg cap Take 2 capsules by mouth once daily. - methotrexate 2.5 mg tablet Take 8 tablets by mouth once weekly. - oxyCODONE myristate (XTAMPZA ER) 13.5 mg CSpT Take 1 capsule by mouth two times a day. - cholecalciferol (VITAMIN D3) 5,000 unit tab Take 5,000 Units by mouth once daily. - cetirizine (ZYRTEC) 10 mg tablet Take 10 mg by mouth once daily. - predniSONE (DELTASONE) 10 mg tablet Take 10 mg by mouth once daily. - gabapentin (NEURONTIN) 300 mg capsule Take 1 capsule by mouth twice daily for 180 days. - CALCIUM CARBONATE (CALCIUM 300 ORAL) Take 1 tablet by mouth once daily. - meloxicam (MOBIC) 15 mg tablet Take 1 tablet by mouth once daily. Take with food. - OMEGA-3 FATTY ACIDS/FISH OIL (OMEGA 3 FISH OIL ORAL) Take by mouth once daily. Facility-Administered Medications as of 04/22/2023 - romosozumab-aqqg 210 mg injection (EVENITY) Problem List As Of Date 04/22/2023 Noted Resolved Osteoporosis [M81.0] 12/30/2012 Arthritis [M19.90] 12/30/2012 Herniated cervical disc [M50.20] 12/30/2012 Fibromyalgia [M79.7] 12/30/2012 Back pain, lumbosacral [M54.50] 12/30/2012 Pruritus ani [L29.0] 04/20/2013 09/20/2013 Hemorrhoids [K64.9] 08/03/2013 09/20/2013 Eczema [L30.9] 09/20/2013 Pain in joint, site unspecified [M25.50] 04/11/2014 Cervicalgia [M54.2] 09/20/2014 Tobacco abuse disorder [Z72.0] 09/20/2014 Hyperlipidemia [E78.5] 09/20/2014 Visit Notes: >> Lyric So RN ThuApr 22, 2023 10:37 AM Status: Signed The patient is here for an injection of Evenity Injection #7 of 12 Dose: 210 mg (105 mg/1.17 mL X2). Route: Subcutaneous Lot# [id number] Expiration date 01/31/2025 [facility]: 46043-091-14 Given without incident. Site: Right arm Dr. Monet present in clinic at time of injection. The date due for the next injection is in 30 days. On or after 05/23/23. Last Injection: 03/23/23 DAVID: 09/10/2022 NOV: 05/27/ (more content not included)... Normal [facility] CNOVSPon 03-24-2023 CNOVSP Visit (SP) Office (KASH) YARA LOYA ([id number]) 1950 F Date Time Provider Department 03/24/23 10:40 AM WISAM MILLS During your visit today, we recorded the following information about you: Temperature Pulse Blood pressure Weight 97.5 degrees 102/minute 132/81 44.2 kg Wisam Mills MD 03/24/2023 11:01 AM Signed (Elements copied from my note dated February [...] 12/14/14 [facility] DISCECTOMY ANT DCMPRN CORD CERVICAL [facility] 12/14/14 HEMORRHOID SURGERY HX 2013 PAST [...] taking: Reported on 03/23/2023) REVIEW OF SYSTEMS: GENE (more content not included)... Normal [facility] CNOVon 03-23-2023 CNOV Office Visit (ENDMED ) YARA LOYA ([id number]) 1950 F Date Time Provider Department 03/23/23 10:30 AM NURSE ARI YUEN SELINA During your visit today, we recorded the following information about you: Lyric So RN 03/23/2023 10:16 AM Signed The patient is here for an injection of Evenity Injection #6 of 12 Dose: 210 mg (105 mg/1.17 mL X2). Route: Subcutaneous Lot# [id number] Expiration date 01/31/2025 [facility]: 96151-393-89 Given without incident. Site: Right arm Dr. Dougherty present in clinic at time of injection. The date due for the next injection is in 30 days. On or after 04/22/23. Last Injection: 02/18/23 DAVID: 09/10/2022 NOV: 05/27/23 Insurance: Primary= Medicare, Secondary= O-- No PA Required Labs: 07/29/22 Calcium 9.7, Vitamin D 45.7 DX: M81.0 CPT: J3111 DXA: 10/16/20 (TScore -2.9) Patient education was given by nurse. Patient tolerated Injection well, in NAD and no reactions noted. Medication supplied by [facility] [employer]. Lyric So RN Referring Provider: JAMIE BULL [[id number]] Allergies As of Date: 03/23/2023 Noted Allergy Reaction SEASONAL ALLERGIES 09/20/2013 14 - Other: See Comments Comments: sinus Date Reviewed: 03/23/2023 Reviewed by: Lyric So, GREGORIA - Fully Assessed Reason for Visit: Evenity Injection [Other] Primary Visit Diagnosis:Age-related osteoporosis with current pathological fracture with routine healing, subsequent encounter [M80.00XD] Prescriptions as of 03/23/2023 - multivitamin tablet Take 1 tablet by mouth once daily. - TURMERIC ORAL Take 1 tablet by mouth once daily. - methocarbamol (ROBAXIN-750) 750 mg tablet Take 1 tablet by mouth three times daily as needed. - BIOTIN ORAL Take 2 tablets by mouth once daily. 6000 MCG Biotin, with Keratin 50 mg - CALCIUM ORAL Take 600 mg by mouth once daily. - iv contrast (will be provided with radiology [...] in the MR contrast administration guidelines link. - iv contrast (will be provided with radiology [...] in the MR contrast administration guidelines link. - hydrOXYchloroQUINE (PLAQUENIL) 200 mg tablet Take 200 mg by mouth once daily. - folic acid 0.8 mg cap Take 2 capsules by mouth once daily. - methotrexate 2.5 mg tablet Take 8 tablets by mouth once weekly. - oxyCODONE myristate (XTAMPZA ER) 13.5 mg CSpT Take 1 capsule by mouth two times a day. - cholecalciferol (VITAMIN D3) 5,000 unit tab Take 5,000 Units by mouth once daily. - cetirizine (ZYRTEC) 10 mg tablet Take 10 mg by mouth once daily. - predniSONE (DELTASONE) 10 mg tablet Take 10 mg by mouth once daily. - gabapentin (NEURONTIN) 300 mg capsule Take 1 capsule by mouth twice daily for 180 days. - CALCIUM CARBONATE (CALCIUM 300 ORAL) Take 1 tablet by mouth once daily. - meloxicam (MOBIC) 15 mg tablet Take 1 tablet by mouth once daily. Take with food. - OMEGA-3 FATTY ACIDS/FISH OIL (OMEGA 3 FISH OIL ORAL) Take by mouth once daily. Facility-Administered Medications as of 03/23/2023 - romosozumab-aqqg 210 mg injection (EVENITY) Problem List As Of Date 03/23/2023 Noted Resolved Osteoporosis [M81.0] 12/30/2012 Arthritis [M19.90] 12/30/2012 Herniated cervical disc [M50.20] 12/30/2012 Fibromyalgia [M79.7] 12/30/2012 Back pain, lumbosacral [M54.50] 12/30/2012 Pruritus ani [L29.0] 04/20/2013 09/20/2013 Hemorrhoids [K64.9] 08/03/2013 09/20/2013 Eczema [L30.9] 09/20/2013 Pain in joint, site unspecified [M25.50] 04/11/2014 Cervicalgia [M54.2] 09/20/2014 Tobacco abuse disorder [Z72.0] 09/20/2014 Hyperlipidemia [E78.5] 09/20/2014 Visit Notes: >> Lyric So RN Mon Mar 23, 2023 10:11 AM Status: Signed The patient is here for an injection of Evenity Injection #6 of 12 Dose: 210 mg (105 mg/1.17 mL X2). Route: Subcutaneous Lot# [id number] Expiration date 01/31/2025 [facility]: 41355-969-41 Given without incident. Site: Right arm Dr. Dougherty present in clinic at time of injection. The date due for the next injection is in 30 days. On or after 04/22/23. Last Injection: 02/18/23 DAVID: 09/10/2022 (more content not included)... Normal [facility] CNOV Office Visit (SPNSME ) YARA LOYA ([id number]) 1950 F Date Time Provider Department 03/23/23 9:40 AM JAMIE BULL During your visit today, we recorded the following information about you: Pulse Blood pressure Height 79/minute 116/75 1.473 m Jamie Bull MD 03/24/2023 6:55 AM Signed SPINE SURGERY ESTABLISHED This is an in-person [...] hands She is followed by Dr. Leslie Monet and has been receiving Evenity injections. She [...] issues.) PROMIS Score Percentiles Physical Health 10/20/2022 (more content not included)... Normal [facility] 25(OH)D3 [facility] 2022 25-hydroxyvitamin D3 [Mass/Vol] 74.1 ng/mL Normal 31.0-80.0 [facility] Comment on above: Order Comment: Speci men Type: BLOOD SPECIMENOrdering Facility: [facility] Address: [address] [place] [address] Result Comment: Clas sification of 25 [place] Vitamin D status: Deficiency/Insufficiency: < or = 30 ng/ml. Sufficiency/Optimal Levels: 31-80 ng/mL Toxicity: > 100 ng/mL. Test performed by chemiluminescent immunoassay. Performed By: #### 1 989-3 ####[facility] LABCLIA [id number] [facility] [id number] [address] [place] Albumin [facility] 023 Albumin [Mass/Vol] 4.6 g/dL Normal 3.9-4.9 [facility] Comment on above: Order Comment: Speci men Type: BLOOD SPECIMENOrdering Facility: [facility] Address: [address] [place] [address] Performed By: #### 1 7861-6, 1751-7, CRET1 ####[facility] [id number] [place] [address] [place] CREATININE BLDon 03-13-2023 Creatinine [Mass/Vol] 0.88 mg/dL Normal 0.58-0.96 [facility] Comment on above: Order Comment: Speci men Type: BLOOD SPECIMENOrdering Facility: [facility] Address: [address] [place] [address] Performed By: #### 1 7861-6, 175-7, CRET1 ####[facility] [id number] [place] [address] [place] [facility] Creatinine and Glomerular filtration rate.predicted panel (S/P/Bld) 70 mL/min/1.73m??? Normal >=60 [facility] Comment on above: Order Comment: Speci men Type: BLOOD SPECIMENOrdering Facility: [facility] Address: [address] [place] [address] Result Comment: July mated Glomerular Filtration Rate (eGFR) is calculated using the 2020 CKD-EPI creatinine equation. This equation utilizes serum creatinine, sex, and age as parameters. The creatinine assay has traceable calibration to isotope dilution-mass spectrometry. Refer to KDIGO guidelines for clinical interpretation. In patients with unstable renal function, e.g. those with acute kidney injury, the eGFR may not accurately reflect actual GFR. Performed By: #### 1 7861-6, 1750-11, CRET1 ####[facility] [id number] [place] [address] [place] [address] ABD/PEL W IVCONon 023 CT ABD/PEL W IVCON * * *Final Report* * * DATE OF EXAM: Mar 13 2023 11:46AM [facility] 0530 - CT ABD/PEL W IVCON / PROCEDURE REASON: 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 * * * * Physician Interpretation * * * * EXAMINATION: CT ABDOMEN AND PELVIS WITH IV CONTRAST CLINICAL HISTORY: Monoclonal gammopathy TECHNIQUE: CT of the abdomen and pelvis was performed using standard technique, scanning from just above the dome of the diaphragm to the symphysis pubis. MQ: CTAP_3 Contrast: IV: 87 ml of Omnipaque 350 Oral: 12 ml of Omni 240 10-25ml diluted with water CT Radiation dose: Integrated Dose-length product (DLP) for this visit = 231 mGy*cm. CT Dose Reduction Employed: Automated exposure control(AEC) and iterative recon COMPARISON: None. RESULT: Liver: Several hepatic cysts. No suspicious hepatic lesion Biliary: No bile duct dilation. Gallbladder is unremarkable. Spleen: No mass. No splenomegaly. Pancreas: No mass or duct dilation. Adrenals: No mass. Kidneys: Left renal cyst. Additional subcentimeter low-density foci are too small to characterize and likely represent cysts. No suspicious renal lesion or gross obstructive uropathy GI tract: No dilation or wall thickening. Lymph nodes: No abdominal or pelvic lymphadenopathy. Mesentery/Peritoneum: No ascites or mass. Retroperitoneum: No mass. Vasculature: - Abdominal aorta and iliac arteries: No aneurysm. - Celiac and SMA: Patent without stenosis. - Portal venous system (SMV, splenic vein, portal vein and branches): Patent. - Hepatic veins: Patent. Pelvis: No mass, ascites or fluid collection. Bones/Soft Tissues: Degenerative and postoperative changes. Grade 1 spondylolisthesis of L4 on L5 and L5 on S1. Bilateral hip prostheses. These cause streak artifact which limits visualization in the pelvis to some degree. Lower thorax: A chest CT performed will be reported separately. Quitline Counselor (topogram) images: No additional findings. IMPRESSION: No evidence of suspicious mass or adenopathy within the abdomen or pelvis EXAMINATION: CHEST CT WITH CONTRAST CLINICAL HISTORY: Monoclonal gammopathy Technique: Spiral CT acquisition of the chest from the thoracic inlet to the upper abdomen following IV contrast. MQ: CTCW_6 Contrast: 87 mL Omnipaque [address] Radiation dose: Integrated Dose-length product (DLP) for this visit = 231 mGy*cm CT Dose Reduction Employed: Automated exposure control(AEC) and iterative recon Comparison: Thoracic spine CT of 01/23/2023 RESULT: Limitations: None. Lines, tubes, and devices: None. Lung parenchyma and airways: Centrilobular emphysema. Minimal linear indeterminate density at both lung bases. Likely minimal atelectasis or fibrosis. No consolidation. No suspicious pulmonary nodule. The central airways are patent. Pleural space: No pleural effusion. No pleural thickening. Lower neck, lymph nodes, and mediastinum: The imaged thyroid gland is normal. No lymphadenopathy in the supraclavicular, axillary, mediastinal, or hilar regions. Heart, pericardium, and thoracic vessels: The thoracic aorta and main pulmonary artery are normal in caliber. The cardiac chambers are normal in size. No coronary artery atherosclerotic calcifications are noted, although the study is not optimized for coronary assessment. No pericardial effusion or thickening. Bones and soft tissues: No destructive bone lesion. Chest wall is unremarkable. Right shoulder prosthesis causes streak artifact. This limits visualization to some degree. Degenerative changes. Stable. Stable upper thoracic postoperative change Upper abdomen: Scans through the abdomen and pelvis are dictated separately Quitline Counselor (topogram) images: No additional findings. IMPRESSION: No suspicious mass or adenopathy in the chest. Emphysema Reproducer: PSCB Transcribe Date/Time: Mar 16 2023 12:28P Dictated by : GILMER AMARAL MD This examination was interpreted and the report reviewed and electronically signed by: GILMER AMARAL MD on Mar 16 2023 12:54PM EST [id number] Normal [facility] CT CHEST W IVCONon 3 CT CHEST W IVCON * * *Final Report* * * DATE OF EXAM: Mar 13 2023 11:46AM [facility] 0539 - CT CHEST W IVCON / PROCEDURE REASON: 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 * * * * Physician Interpretation * * * * EXAMINATION: CT ABDOMEN AND PELVIS WITH IV CONTRAST CLINICAL HISTORY: Monoclonal gammopathy TECHNIQUE: CT of the abdomen and pelvis was performed using standard technique, scanning from just above the dome of the diaphragm to the symphysis pubis. MQ: CTAP_3 Contrast: IV: 87 ml of Omnipaque 350 Oral: 12 ml of Omni 240 10-25ml diluted with water CT Radiation dose: Integrated Dose-length product (DLP) for this visit = 231 mGy*cm. CT Dose Reduction Employed: Automated exposure control(AEC) and iterative recon COMPARISON: None. RESULT: Liver: Several hepatic cysts. No suspicious hepatic lesion Biliary: No bile duct dilation. Gallbladder is unremarkable. Spleen: No mass. No splenomegaly. Pancreas: No mass or duct dilation. Adrenals: No mass. Kidneys: Left renal cyst. Additional subcentimeter low-density foci are too small to characterize and likely represent cysts. No suspicious renal lesion or gross obstructive uropathy GI tract: No dilation or wall thickening. Lymph nodes: No abdominal or pelvic lymphadenopathy. Mesentery/Peritoneum: No ascites or mass. Retroperitoneum: No mass. Vasculature: - Abdominal aorta and iliac arteries: No aneurysm. - Celiac and SMA: Patent without stenosis. - Portal venous system (SMV, splenic vein, portal vein and branches): Patent. - Hepatic veins: Patent. Pelvis: No mass, ascites or fluid collection. Bones/Soft Tissues: Degenerative and postoperative changes. Grade 1 spondylolisthesis of L4 on L5 and L5 on S1. Bilateral hip prostheses. These cause streak artifact which limits visualization in the pelvis to some degree. Lower thorax: A chest CT performed will be reported separately. Quitline Counselor (topogram) images: No additional findings. IMPRESSION: No evidence of suspicious mass or adenopathy within the abdomen or pelvis EXAMINATION: CHEST CT WITH CONTRAST CLINICAL HISTORY: Monoclonal gammopathy Technique: Spiral CT acquisition of the chest from the thoracic inlet to the upper abdomen following IV contrast. MQ: CTCW_6 Contrast: 87 mL Omnipaque [address] Radiation dose: Integrated Dose-length product (DLP) for this visit = 231 mGy*cm CT Dose Reduction Employed: Automated exposure control(AEC) and iterative recon Comparison: Thoracic spine CT of 01/23/2023 RESULT: Limitations: None. Lines, tubes, and devices: None. Lung parenchyma and airways: Centrilobular emphysema. Minimal linear indeterminate density at both lung bases. Likely minimal atelectasis or fibrosis. No consolidation. No suspicious pulmonary nodule. The central airways are patent. Pleural space: No pleural effusion. No pleural thickening. Lower neck, lymph nodes, and mediastinum: The imaged thyroid gland is normal. No lymphadenopathy in the supraclavicular, axillary, mediastinal, or hilar regions. Heart, pericardium, and thoracic vessels: The thoracic aorta and main pulmonary artery are normal in caliber. The cardiac chambers are normal in size. No coronary artery atherosclerotic calcifications are noted, although the study is not optimized for coronary assessment. No pericardial effusion or thickening. Bones and soft tissues: No destructive bone lesion. Chest wall is unremarkable. Right shoulder prosthesis causes streak artifact. This limits visualization to some degree. Degenerative changes. Stable. Stable upper thoracic postoperative change Upper abdomen: Scans through the abdomen and pelvis are dictated separately Quitline Counselor (topogram) images: No additional findings. IMPRESSION: No suspicious mass or adenopathy in the chest. Emphysema Reproducer: FLOWER Transcribe Date/Time: Mar 16 2023 12:28P Dictated by : GILMER AMARAL MD This examination was interpreted and the report reviewed and electronically signed by: GILMER AMARAL MD on Mar 16 2023 12:54PM EST [id number] Normal [facility] Calcium SerPl-mCncon 023 Calcium [Mass/Vol] 9.5 mg/dL Normal 8.5-10.2 [facility] Comment on above: Order Comment: Speci men Type: BLOOD SPECIMENOrdering Facility: [facility] Address: [address] [place] [address] Performed By: #### 1 7861-6, 1751-7, CRET1 ####[facility] [id number] [place] [address] [place] Calcium.ionized [Moles/Vol]o n 03-13-2023 Calcium.ionized (Bld) [Mass/Vol] 1.34 mmol/L High 1.08-1.30 [facility] Comment on above: Order Comment: Speci men Type: BLOOD SPECIMENOrdering Facility: [facility] Address: [address] [place] [address] Performed By: #### 1 995-0 ####[facility] [id number] [place] [address] [place] Calcium.ionized adjusted to pH 7.4 (Bld) [Moles/Vol] 1.30 mmol/L Normal 1.08-1.30 [facility] Comment on above: Order Comment: Speci men Type: BLOOD SPECIMENOrdering Facility: [facility] Address: [address] [place] [address] Performed By: #### 1 995-0 ####[facility] LABIA [id number] [place] [address] [place] Creatinine + eGFR Pnl SerPlB ldon 03-13-2023 Creatinine and Glomerular filtration rate.predicted panel (S/P/Bld) 69 mL/min/1.73m??? Normal >=60 [facility] Comment on above: Order Comment: Demarcus dye Type: BLOOD SPECIMENOrdering Facility: [facility] Address: [address] [place] [address] Result Comment: July mated Glomerular Filtration Rate (eGFR) is calculated using the 2020 CKD-EPI creatinine equation. This equation utilizes serum creatinine, sex, and age as parameters. The creatinine assay has traceable calibration to isotope dilution-mass spectrometry. Refer to KDIGO guidelines for clinical interpretation. In patients with unstable renal function, e.g. those with acute kidney injury, the eGFR may not accurately reflect actual GFR. Performed By: #### 4 5066-8 ####[facility] [id number] [place] [address] [place] Creatinine and Glomerular fi ltration rate.predicted panel (S/P/Bld)on 03-13-2023 Creatinine [Mass/Vol] 0.89 mg/dL Normal 0.58-0.96 [facility] Comment on above: Order Comment: Demarcus dye Type: BLOOD SPECIMENOrdering Facility: [facility] Address: [address] [place] [address] Performed By: #### 4 5066-8 ####[facility] [id number] [place] [address] [place] [facility]act [facility] Parathyrin.intact [Mass/Vol] 67 pg/mL High 15-65 [facility] Comment on above: Order Comment: Demarcus dye Type: BLOOD SPECIMENOrdering Facility: [facility] Address: [address] [place] [address] Performed By: #### 2 731-8 ####[facility] LABCLIA [id number] [place] [address] [place] Basic metabolic 2000 panelon 02-25-2023 Anion gap [Moles/Vol] 11 mmol/L 9 - 18 mmol/L [facility] Calcium [Mass/Vol] 9.6 mg/dL 8.5 - 10. 2 mg/dL [facility] Chloride [Moles/Vol] 102 mmol/L 97 - 105 mmol/L [facility] CO2 [Moles/Vol] 26 mmol/L 22 - 30 mmol/L [facility] Creatinine [Mass/Vol] 0.88 mg/dL 0.58 - 0.96 mg/dL [facility] Estimated Glomerular Filtration Rate 70 mL/min/1.73m >=60 mL/min/1.73m [facility] Glucose [Mass/Vol] 89 mg/dL 74 - 99 mg/dL [facility] Potassium [Moles/Vol] 4.3 mmol/L 3.7 - 5.1 mmol/L [facility] Sodium [Moles/Vol] 139 mmol/L 136 - 144 mmol/L [facility] Urea nitrogen [Mass/Vol] 22 mg/dL High 7 - 21 mg/dL [facility] Anion gap [Moles/Vol] 11 mmol/L Normal 9-18 [facility] Comment on above: Order Comment: Speci men Type: BLOOD SPECIMENOrdering Facility: [facility] Address: [address] [place] [address] Performed By: #### 2 4321-2 ####[facility] [id number] [place] [address] [place] Calcium [Mass/Vol] 9.6 mg/dL Normal 8.5-10.2 [facility] Comment on above: Order Comment: Speci men Type: BLOOD SPECIMENOrdering Facility: [facility] Address: [address] [place] [address] Performed By: #### 2 4321-2 ####[facility] MILLTOWNCLIA [id number] [place] [address] [place] Chloride [Moles/Vol] 102 mmol/L Normal 97-105 [facility] Comment on above: Order Comment: Speci men Type: BLOOD SPECIMENOrdering Facility: [facility] Address: [address] [place] [address] Performed By: #### 2 4321-2 ####[facility] MILL[facility]OWN[facility] [id number] [place] [address] [place] CO2 [Moles/Vol] 26 mmol/L Normal 22-30 [facility] Comment on above: Order Comment: Speci men Type: BLOOD SPECIMENOrdering Facility: [facility] Address: [address] [place] [address] Performed By: #### 2 4321-2 ####[facility] [id number] [place] [address] [place] Creatinine [Mass/Vol] 0.88 mg/dL Normal 0.58-0.96 [facility] Comment on above: Order Comment: Speci men Type: BLOOD SPECIMENOrdering Facility: [facility] Address: [address] [place] [address] Performed By: #### 2 4321-2 ####[facility] [id number] [place] [address] [place] [facility] Creatinine and Glomerular filtration rate.predicted panel (S/P/Bld) 70 mL/min/1.73m??? Normal >=60 [facility] Comment on above: Order Comment: Speci men Type: BLOOD SPECIMENOrdering Facility: [facility] Address: [address] [place] [address] Result Comment: July mated Glomerular Filtration Rate (eGFR) is calculated using the 2020 CKD-EPI creatinine equation. This equation utilizes serum creatinine, sex, and age as parameters. The creatinine assay has traceable calibration to isotope dilution-mass spectrometry. Refer to KDIGO guidelines for clinical interpretation. In patients with unstable renal function, e.g. those with acute kidney injury, the eGFR may not accurately reflect actual GFR. Performed By: #### 2 4321-2 ####[facility] [id number] [place] [address] [place] Glucose [Mass/Vol] 89 mg/dL Normal 74-99 [facility] Comment on above: Order Comment: Speci men Type: BLOOD SPECIMENOrdering Facility: [facility] Address: [address] [place] [address] Result Comment: The [place] [employer] (ADA) provides guidance for cutoff values for fasting glucose and random glucose. The ADA defines fasting as no caloric intake for at least 8 hours. Fasting plasma glucose results between 100 to 125 mg/dL indicate increased risk for diabetes (prediabetes). Fasting plasma glucose results greater than or equal to 126 mg/dL meet the criteria for diagnosis of diabetes. In the absence of unequivocal hyperglycemia, results should be confirmed by repeat testing. In a patient with classic symptoms of hyperglycemia or hyperglycemic crisis, random plasma glucose results greater than or equal to 200 mg/dL meet the criteria for diagnosis of diabetes. Reference: Standards of Medical Care in Diabetes 2016, [employer]. Diabetes Care. 2016.39(Suppl 1). Performed By: #### 2 4321-2 ####[facility] [id number] [place] [address] [place] Potassium [Moles/Vol] 4.3 mmol/L Normal 3.7-5.1 [facility] Comment on above: Order Comment: Speci men Type: BLOOD SPECIMENOrdering Facility: [facility] Address: [address] [place] [address] Performed By: #### 2 4321-2 ####[facility] [id number] [place] [address] [place] Sodium [Moles/Vol] 139 mmol/L Normal 136-144 [facility] Comment on above: Order Comment: Speci men Type: BLOOD SPECIMENOrdering Facility: [facility] Address: [address] [place] [address] Performed By: #### 2 4321-2 ####[facility] [id number] [place] [address] [place] Urea nitrogen [Mass/Vol] 22 mg/dL High 7-21 [facility] Comment on above: Order Comment: Speci men Type: BLOOD SPECIMENOrdering Facility: [facility] Address: [address] [place] [address] Performed By: #### 2 4321-2 ####[facility] [id number] [place] [id number] [place] CBC W Auto Differential pane l (Bld)on 02-25-2023 Basophils (Bld) [#/Vol] 0.05 10*3/uL <0.11 k/uL [facility] Basophils/100 WBC (Bld) 0.6 % [facility] Differential cell count method Nom (Bld) Auto [facility] Eosinophils (Bld) [#/Vol] 0.03 10*3/uL <0.46 k/uL [facility] Eosinophils/100 WBC (Bld) 0.4 % [facility] Erythrocyte distribution width (RBC) [Ratio] 15.1 % High 11.5 - 15.0 % [facility] Hematocrit (Bld) [Volume fraction] 30.9 % Low 36.0 - 46.0 % [facility] Hemoglobin (Bld) [Mass/Vol] 10.5 g/dL Low 11.5 - 15.5 g/dL [facility] Immature granulocytes (Bld) [#/Vol] 0.03 10*3/uL <0.10 k/uL [facility] Immature granulocytes/100 WBC (Bld) 0.4 % [facility] Lymphocytes (Bld) [#/Vol] 0.80 10*3/uL Low 1.00 - 4.00 k/uL [facility] Lymphocytes/100 WBC (Bld) 10.0 % [facility] MCH (RBC) [Entitic mass] 34.2 pg High 26.0 - 34.0 pg [facility] MCHC (RBC) [Mass/Vol] 34.0 g/dL 30.5 - 36.0 g/dL [facility] MCV (RBC) [Entitic vol] 100.7 fL High 80.0 - 100.0 fL [facility] Monocytes (Bld) [#/Vol] 0.25 10*3/uL <0.87 k/uL [facility] Monocytes/100 WBC (Bld) 3.1 % [facility] Neutrophils (Bld) [#/Vol] 6.88 10*3/uL 1.45 - 7.50 k/uL [facility] Neutrophils/100 WBC (Bld) 85.5 % [facility] Nucleated RBC (Bld) [#/Vol] <0.01 k/uL [facility] Nucleated RBC/100 WBC (Bld) [Ratio] 0.0 /100 WBC [facility] Platelet mean volume (Bld) [Entitic vol] 9.2 fL 9.0 - 12.7 fL [facility] Platelets (Bld) [#/Vol] 273 10*3/uL 150 - 400 k/uL [facility] RBC (Bld) [#/Vol] 3.07 10*6/uL Low 3.90 - 5.2 0 m/uL [facility] WBC (Bld) [#/Vol] 8.04 10*3/uL 3.70 - 11. 00 k/uL [facility] Basophils (Bld) [#/Vol] 0.05 10*3/uL Normal <0.11 [facility] Comment on above: Order Comment: Speci men Type: BLOOD SPECIMENOrdering Facility: [facility] Address: [address] [place] [address] Performed By: #### 5 7021-8 ####[facility] [id number] [place] [address] [place] Basophils/100 WBC (Bld) 0.6 % Normal [facility] Comment on above: Order Comment: Speci men Type: BLOOD SPECIMENOrdering Facility: [facility] Address: [address] [place] [address] Performed By: #### 5 7021-8 ####[facility] [id number] [place] [address] [place] Differential cell count method Nom (Bld) Auto Normal [facility] Comment on above: Order Comment: Speci men Type: BLOOD SPECIMENOrdering Facility: [facility] Address: [address] [place] [address] Performed By: #### 5 7021-8 ####[facility] [id number] [place] [address] [place] Eosinophils (Bld) [#/Vol] 0.03 10*3/uL Normal <0.46 [facility] Comment on above: Order Comment: Speci men Type: BLOOD SPECIMENOrdering Facility: [facility] Address: [address] [place] [address] Performed By: #### 5 7021-8 ####[facility] [id number] [place] [address] [place] Eosinophils/100 WBC (Bld) 0.4 % Normal [facility] Comment on above: Order Comment: Speci men Type: BLOOD SPECIMENOrdering Facility: [facility] Address: [address] [place] [address] Performed By: #### 5 7021-8 ####[facility] [id number] [place] [address] [place] Erythrocyte distribution width (RBC) [Ratio] 15.1 % High 11.5-15.0 [facility] Comment on above: Order Comment: Speci men Type: BLOOD SPECIMENOrdering Facility: [facility] Address: [address] [place] [address] Performed By: #### 5 7021-8 ####[facility] [id number] [place] [address] [place] Hematocrit (Bld) [Volume fraction] 30.9 % Low 36.0-46.0 [facility] Comment on above: Order Comment: Speci men Type: BLOOD SPECIMENOrdering Facility: [facility] Address: [address] [place] [address] Performed By: #### 5 7021-8 ####[facility] [id number] [place] [address] [place] Hemoglobin (Bld) [Mass/Vol] 10.5 g/dL Low 11.5-15.5 [facility] Comment on above: Order Comment: Speci men Type: BLOOD SPECIMENOrdering Facility: [facility] Address: [address] [place] [address] Performed By: #### 5 7021-8 ####[facility]CL[facility] [id number] [place] [address] [place] Immature granulocytes (Bld) [#/Vol] 0.03 10*3/uL Normal <0.10 [facility] Comment on above: Order Comment: Speci men Type: BLOOD SPECIMENOrdering Facility: [facility] Address: [address] [place] [address] Performed By: #### 5 7021-8 ####[facility]ENTER[facility] [id number] [place] [address] [place] Immature granulocytes/100 WBC (Bld) 0.4 % Normal [facility] Comment on above: Order Comment: Speci men Type: BLOOD SPECIMENOrdering Facility: [facility] Address: [address] [place] [address] Performed By: #### 5 7021-8 ####[facility]ENTERLIA [id number] [place] [address] [place] Lymphocytes (Bld) [#/Vol] 0.80 10*3/uL Low 1.00-4.00 [facility] Comment on above: Order Comment: Speci men Type: BLOOD SPECIMENOrdering Facility: [facility] Address: [address] [place] [address] Performed By: #### 5 7021-8 ####[facility]IDEWNCLIA [id number] [place] [address] [place] Lymphocytes/100 WBC (Bld) 10.0 % Normal [facility] Comment on above: Order Comment: Speci men Type: BLOOD SPECIMENOrdering Facility: [facility] Address: [address] [place] [address] Performed By: #### 5 7021-8 ####[facility]ENTERLIA [id number] [place] [address] [place] MCH (RBC) [Entitic mass] 34.2 pg High 26.0-34.0 [facility] Comment on above: Order Comment: Speci men Type: BLOOD SPECIMENOrdering Facility: [facility] Address: [address] [place] [address] Performed By: #### 5 7021-8 ####[facility] [id number] [place] [address] [place] MCHC (RBC) [Mass/Vol] 34.0 g/dL Normal 30.5-36.0 [facility] Comment on above: Order Comment: Speci men Type: BLOOD SPECIMENOrdering Facility: [facility] Address: [address] [place] [address] Performed By: #### 5 7021-8 ####[facility] [id number] [place] [address] [place] MCV (RBC) [Entitic vol] 100.7 fL High 80.0-100.0 [facility] Comment on above: Order Comment: Speci men Type: BLOOD SPECIMENOrdering Facility: [facility] Address: [address] [place] [address] Performed By: #### 5 7021-8 ####[facility] [id number] [place] [address] [place] Monocytes (Bld) [#/Vol] 0.25 10*3/uL Normal <0.87 [facility] Comment on above: Order Comment: Speci men Type: BLOOD SPECIMENOrdering Facility: [facility] Address: [address] [place] [address] Performed By: #### 5 7021-8 ####[facility] [id number] [place] [address] [place] Monocytes/100 WBC (Bld) 3.1 % Normal [facility] Comment on above: Order Comment: Speci men Type: BLOOD SPECIMENOrdering Facility: [facility] Address: [address] [place] [address] Performed By: #### 5 7021-8 ####[facility]ENTERL[facility] [id number] [place] [address] [place] Neutrophils (Bld) [#/Vol] 6.88 10*3/uL Normal 1.45-7.50 [facility] Comment on above: Order Comment: Speci men Type: BLOOD SPECIMENOrdering Facility: [facility] Address: [address] [place] [address] Performed By: #### 5 7021-8 ####[facility] [id number] [place] [address] [place] Neutrophils/100 WBC (Bld) 85.5 % Normal [facility] Comment on above: Order Comment: Speci men Type: BLOOD SPECIMENOrdering Facility: [facility] Address: [address] [place] [address] Performed By: #### 5 7021-8 ####[facility] [id number] [place] [address] [place] Nucleated RBC (Bld) [#/Vol] 10*3/uL Normal <0.01 [facility] Comment on above: Order Comment: Speci men Type: BLOOD SPECIMENOrdering Facility: [facility] Address: [address] [place] [address] Performed By: #### 5 7021-8 ####[facility] [id number] [place] [address] [place] Nucleated RBC/100 WBC (Bld) [Ratio] 0.0 /100 WBC Normal [facility] Comment on above: Order Comment: Speci men Type: BLOOD SPECIMENOrdering Facility: [facility] Address: [address] [place] [address] Performed By: #### 5 7021-8 ####[facility] [id number] [place] [id number] [place] Platelet mean volume (Bld) [Entitic vol] 9.2 fL Normal 9.0-12.7 [facility] Comment on above: Order Comment: Speci men Type: BLOOD SPECIMENOrdering Facility: [facility] Address: [address] [place] [address] Performed By: #### 5 7021-8 ####[facility]CL[facility] [id number] [place] [address] [place] Platelets (Bld) [#/Vol] 273 10*3/uL Normal 150-400 [facility] Comment on above: Order Comment: Speci men Type: BLOOD SPECIMENOrdering Facility: [facility] Address: [address] [place] [address] Performed By: #### 5 7021-8 ####[facility] [id number] [place] [address] [place] RBC (Bld) [#/Vol] 3.07 10*6/uL Low 3.90-5.20 [facility] Comment on above: Order Comment: Speci men Type: BLOOD SPECIMENOrdering Facility: [facility] Address: [address] [place] [id number] Performed By: #### 5 7021-8 ####[facility]CL[facility] [id number] [place] [address] [place] WBC (Bld) [#/Vol] 8.04 10*3/uL Normal 3.70-11.00 [facility] Comment on above: Order Comment: Speci men Type: BLOOD SPECIMENOrdering Facility: [facility] Address: [address] [place] [address] Performed By: #### 5 7021-8 ####[facility] [id number] [place] [address] [place] CNOVSPon 02-25-2023 CNOVSP Visit (SP) Office (HEMKEVIN) YARA LOYA ([id number]) 1950 F Date Time Provider Department 02/25/23 10:00 AM WISAM MILLS During your visit today, we recorded the following information about you: Temperature Pulse Blood pressure Weight 98 degrees 68/minute 114/74 44 kg Height 1.473 m Wisam Mills MD 02/25/2023 12:21 PM Signed (Elements copied from my note dated August [...] Rfl: (Patient not taking: Reported on 10/20/2022) (more content not included)... Normal [facility] IMMUNOFIXATION SCREEN, SERUM on 02-25-2023 INTERPRETATION (MPA) Atypical restricted bands are present in the IgM and kappa regions. Consistent with IgM kappa monoclonal gammopathy. Normal [facility] Comment on above: Order Comment: Speci men Type: BLOOD SPECIMENOrdering Facility: [facility] Address: [address] [place] [address] Performed By: #### I FESC ####[facility] LABCLIA [id number] [place] [address] [place] MPA RESULT M protein is present. Abnormal No M p rotein is identified. [facility] Comment on above: Order Comment: Speci men Type: BLOOD SPECIMENOrdering Facility: [facility] Address: [address] [place] [address] Performed By: #### I FESC ####[facility] LABCLIA [id number] [address] [address] [id number] [address] [place] STAFF REVIEW (MPA) Reviewed by Helena Parisi M.D. Normal [facility] Comment on above: Order Comment: Speci men Type: BLOOD SPECIMENOrdering Facility: [facility] Address: [address] [place] [address] Performed By: #### I FESC ####[facility] LABCLIA [id number] [place] [address] [place] IMMUNOGLOBULINS GAMon 2022 IgA [Mass/Vol] 127 mg/dL Normal 70-400 [facility] Comment on above: Order Comment: Speci men Type: BLOOD SPECIMENOrdering Facility: [facility] Address: [address] [place] [address] Performed By: #### S ERIMM ####[facility] LABCLIA [id number] [place] [address] [place] IgG [Mass/Vol] 777 mg/dL Normal 700-1600 [facility] Comment on above: Order Comment: Speci men Type: BLOOD SPECIMENOrdering Facility: [facility] Address: [address] [place] [address] Performed By: #### S ERIMM ####[facility] LABCLIA [id number] [place] [address] [place] IgM [Mass/Vol] 261 mg/dL High 40-230 [facility] Comment on above: Order Comment: Speci men Type: BLOOD SPECIMENOrdering Facility: [facility] Address: [address] [place] [address] Performed By: #### S ERIMM ####[facility] LABIA [id number] [place] [address] [place] KAPPA/SAM,FREE,SERon 2022 Immunoglobulin light chains.kappa.free (S) [Mass/Vol] 26.3 mg/L High 3.3-19.4 [facility] Comment on above: Order Comment: Speci men Type: BLOOD SPECIMENOrdering Facility: [facility] Address: [address] [place] [address] Result Comment: Rare ly, increased serum free light chains levels may not be detected or accurately quantified due to prozone phenomenon or in high viscosity samples using this immunoturbidimetric assay. Correlation with other laboratory results and clinical findings is recommended. The Oppelo Free Light Chain was performed using the Binding Site Optilite immunoturbidimetric method. Result obtained with different assay methods or kits cannot be used interchangeably. Performed By: #### K LFRS ####[facility] LABCLIA [id number] [place] [address] [place] Immunoglobulin light chains.kappa/Immuno globulin light chains.lambda (S) [Mass ratio] 2.44 High 0.26-1.65 [facility] Comment on above: Order Comment: Speci men Type: BLOOD SPECIMENOrdering Facility: [facility] Address: [address] [place] [address] Performed By: #### K LFRS ####[facility] LABCLIA [id number] [place] [address] [place] Immunoglobulin light chains.lambda.free [Mass/Vol] 10.8 mg/L Normal 5.7-26.3 [facility] Comment on above: Order Comment: Speci men Type: BLOOD SPECIMENOrdering Facility: [facility] Address: [address] [place] [address] Result Comment: Rare ly, increased serum free light chains levels may not be detected or accurately quantified due to prozone phenomenon or in high viscosity samples using this immunoturbidimetric assay. Correlation with other laboratory results and clinical findings is recommended. The Lambda Free Light Chain was performed using the Binding Site Optilite immunoturbidimetric method. Result obtained with different assay methods or kits cannot be used interchangeably. Performed By: #### K LFRS ####[facility] LABCLIA [id number] [place] [address] [place] PROTEIN ELECTROPHORESIS SERU M (P)on 02-25-2023 Albumin [Mass/Vol] 4.66 g/dL Normal 3.43-5.41 [facility] Comment on above: Order Comment: Speci men Type: BLOOD SPECIMENOrdering Facility: [facility] Address: [address] [place] [address] Performed By: #### L [id number] ####[facility] LABCLIA [id number] [place] [address] [place] Alpha 1 globulin Elph [Mass/Vol] 0.29 g/dL Normal 0.18-0.43 [facility] Comment on above: Order Comment: Speci men Type: BLOOD SPECIMENOrdering Facility: [facility] Address: [address] [place] [address] Performed By: #### L [id number] ####[facility] LABIA [id number] [place] [address] [place] Alpha 2 globulin Elph [Mass/Vol] 0.55 g/dL Normal 0.42-0.98 [facility] Comment on above: Order Comment: Speci men Type: BLOOD SPECIMENOrdering Facility: [facility] Address: [address] [place] [address] Performed By: #### L [id number] ####[facility] LABIA [id number] [place] [address] [place] Beta globulin Elph [Mass/Vol] 0.72 g/dL Normal 0.61-1.17 [facility] Comment on above: Order Comment: Speci men Type: BLOOD SPECIMENOrdering Facility: [facility] Address: [address] [place] [address] Performed By: #### L [id number] ####[facility] LABIA [id number] [place] [address] [place] Gamma globulin Elph [Mass/Vol] 0.77 g/dL Normal 0.53-1.51 [facility] Comment on above: Order Comment: Speci men Type: BLOOD SPECIMENOrdering Facility: [facility] Address: [address] [place] [address] Performed By: #### L [id number] ####[facility] LABIA [id number] [address] [place] INTERPRETATION COMMENT FOR PROTEIN ELECTROPHORESIS The atypical region is relatively poorly defined and may represent an unusual presentation of polyclonal immunoglobulins, but cannot rule out the presence of a low level M protein. If clinically indicated, monoclonal protein analysis and serum free light chain analysis are suggested to evaluate further for monoclonal gammopathy. Normal [facility] Comment on above: Order Comment: Speci men Type: BLOOD SPECIMENOrdering Facility: [facility] Address: [address] [place] [address] Performed By: #### L [id number] ####[facility] [id number] [address] [place] M-PROTEIN LOCATION Gamma Fraction 1 Normal [facility] Comment on above: Order Comment: Demarcus dye Type: BLOOD SPECIMENOrdering Facility: [facility] Address: [address] [place] [address] Result Comment: Not Applicable. Performed By: #### L [id number] ####[facility] [id number] [place] [address] [place] Protein Fractions [Interp] An atypical region of restricted mobility is identified on protein electrophoresis. Abnormal No definitive M protein is identified on protein electrophores is. [facility] Comment on above: Order Comment: Speci men Type: BLOOD SPECIMENOrdering Facility: [facility] Address: [address] [place] [address] Performed By: #### L [id number] ####[facility] LABIA [id number] [address] [place] Protein.monoclonal Elph [Mass/Vol] 0.00 g/dL Normal <=0.00 [facility] Comment on above: Order Comment: Speci men Type: BLOOD SPECIMENOrdering Facility: [facility] Address: [address] [place] [address] Performed By: #### L [id number] ####[facility] LABIA [id number] [address] [place] SPE STAFF REVIEW Reviewed by Helena Parisi M.D. [facility] Comment on above: Order Comment: Speci men Type: BLOOD SPECIMENOrdering Facility: [facility] Address: [address] [place] [address] Performed By: #### L [id number] ####[facility] LABIA [id number] [address] [place] Prot SerPl-mCncon 02-25-2023 Protein [Mass/Vol] 7.0 g/dL Normal 6.3-8.0 [facility] Comment on above: Order Comment: Speci men Type: BLOOD SPECIMENOrdering Facility: [facility] Address: [address] [place] [address] Performed By: #### 2 885-2 ####[facility] [id number] [address] Protein [Mass/Vol] 7.3 g/dL Normal 6.3-8.0 [facility] Comment on above: Order Comment: Speci men Type: BLOOD SPECIMENOrdering Facility: [facility] Address: [address] [place] [address] Performed By: #### 2 885-2 ####[facility] [id number] [address] [place] CNOVon 02-18-2023 CNOV Office Visit (ENDMED ) YARA LOYA ([id number]) 1950 F Date Time Provider Department 10/18/23 10:30 AM NURSE ARI PADILLA During your visit today, we recorded the following information about you: Yuliana Bagley RN 02/18/2023 10:25 AM Signed The patient is here for an injection of Evenity Injection #5 of 12 Dose: 210 mg (105 mg/1.17 mL X2). Route: Subcutaneous Lot# [id number] Expiration date 01/31/2025 [facility]: 23938-936-67 Given without incident. Site: Right arm Dr. Monet present in clinic at time of injection. [...] [facility]. Yuliana Bagley RN Referring Provider: JAMIE BULL [[id number]] Allergies As of Date: 02/18/2023 Noted Allergy Reaction SEASONAL ALLERGIES 09/20/2013 14 - Other: See Comments Comments: sinus Date Reviewed: 02/18/2023 Reviewed by: Yuliana Bagley RN - Fully Assessed Reason for Visit: EVENITY INJECTION #5 OF 12 [Other] Primary Visit Diagnosis:Age-related osteoporosis with current pathological fracture with routine healing, subsequent encounter [M80.00XD] Prescriptions as of 02/18/2023 - methocarbamol (ROBAXIN-750) 750 mg tablet Take 1 tablet by mouth three times daily as needed. - linaclotide (LINZESS) 145 mcg capsule Take by mouth as needed. - BIOTIN ORAL Take 2 tablets by mouth once daily. 6000 MCG Biotin, with Keratin 50 mg - CALCIUM ORAL Take 600 mg by mouth once daily. - iv contrast (will be provided with radiology [...] in the MR contrast administration guidelines link. - iv contrast (will be provided with radiology [...] in the MR contrast administration guidelines link. - hydrOXYchloroQUINE (PLAQUENIL) 200 mg tablet Take 200 mg by mouth once daily. - folic acid 0.8 mg cap Take 2 capsules by mouth once daily. - methotrexate 2.5 mg tablet Take 2.5 mg by mouth one time only. Taking 6 tablets one day a week on - oxyCODONE myristate (XTAMPZA ER) 13.5 mg CSpT Take by mouth. - cholecalciferol (VITAMIN D3) 5,000 unit tab Take 5,000 Units by mouth once daily. - cetirizine (ZYRTEC) 10 mg tablet Take 10 mg by mouth once daily. - predniSONE (DELTASONE) 10 mg tablet Take 10 mg by mouth once daily. - gabapentin (NEURONTIN) 300 mg capsule Take 1 capsule by mouth twice daily for 180 days. - CALCIUM CARBONATE (CALCIUM 300 ORAL) Take 1 tablet by mouth once daily. - meloxicam (MOBIC) 15 mg tablet Take 1 tablet by mouth once daily. Take with food. - OMEGA-3 FATTY ACIDS/FISH OIL (OMEGA 3 FISH OIL ORAL) Take by mouth once daily. Facility-Administered Medications as of 02/18/2023 - romosozumab-aqqg 210 mg injection ([facility]ENITY) Problem List As Of Date 02/18/2023 Noted Resolved Osteoporosis [M81.0] 12/30/2012 Arthritis [M19.90] 12/30/2012 Herniated cervical disc [M50.20] 12/30/2012 Fibromyalgia [M79.7] 12/30/2012 Back pain, lumbosacral [M54.50] 12/30/2012 Pruritus ani [L29.0] 04/20/2013 09/20/2013 Hemorrhoids [K64.9] 08/03/2013 09/20/2013 Eczema [L30.9] 09/20/2013 Pain in joint, site unspecified [M25.50] 04/11/2014 Cervicalgia [M54.2] 09/20/2014 Tobacco abuse disorder [Z72.0] 09/20/2014 Hyperlipidemia [E78.5] 09/20/2014 Visit Notes: >> Yuliana Bagley RN Wed Feb 18, 2023 10:22 AM Status: Signed The patient is here for an injection of Evenity Injection #5 of 12 Dose: 210 mg (105 mg/1.17 mL X2). Route: Subcutaneous Lot# [id number] Expiration date 01/31/2025 [facility]: 68432-862-73 Given without incident. Site: Right arm Dr. Monet present in clinic at time of injection. The date due for the next injection is in 30 days. On or after 03/21/2023. Last Injection: 01/19/23 (more content not included)... Normal [facility] ([id number]) 1950 F Date Time Provider Department 01/23/23 [facility] HOPPER [facility] During your visit today, we recorded the following information about you: Lalitha Ramos 01/23/2023 11:32 AM Signed Pt requesting disc of ct taken on 01/23 Lalitha Ramos January 23, 2023 11:32 AM Sophia Grajeda PSS 01/26/2023 9:33 AM Signed CD/REPORT READY FOR PUBLIC INFORMATION COORDINATOR AT [facility] FOR PT Allergies As of Date: 01/23/2023 Noted Allergy Reaction SEASONAL ALLERGIES 09/20/2013 14 - Other: See Comments Comments: sinus Date Reviewed: 01/19/2023 Reviewed by: Yuliana Bagley RN - Fully Assessed Prescriptions as of 03/13/2023 - multivitamin tablet Take 1 tablet by mouth once daily. - TURMERIC ORAL Take 1 tablet by mouth once daily. - methocarbamol (ROBAXIN-750) 750 mg tablet Take 1 tablet by mouth three times daily as needed. - linaclotide (LINZESS) 145 mcg capsule Take by mouth as needed. - BIOTIN ORAL Take 2 tablets by mouth once daily. 6000 MCG Biotin, with Keratin 50 mg - CALCIUM ORAL Take 600 mg by mouth once daily. - iv contrast (will be provided with radiology [...] in the MR contrast administration guidelines link. - iv contrast (will be provided with radiology [...] in the MR contrast administration guidelines link. - hydrOXYchloroQUINE (PLAQUENIL) 200 mg tablet Take 200 mg by mouth once daily. - folic acid 0.8 mg cap Take 2 capsules by mouth once daily. - methotrexate 2.5 mg tablet Take 8 tablets by mouth once weekly. - oxyCODONE myristate (XTAMPZA ER) 13.5 mg CSpT Take 1 capsule by mouth two times a day. - cholecalciferol (VITAMIN D3) 5,000 unit tab Take 5,000 Units by mouth once daily. - cetirizine (ZYRTEC) 10 mg tablet Take 10 mg by mouth once daily. - predniSONE (DELTASONE) 10 mg tablet Take 10 mg by mouth once daily. - gabapentin (NEURONTIN) 300 mg capsule Take 1 capsule by mouth twice daily for 180 days. - CALCIUM CARBONATE (CALCIUM 300 ORAL) Take 1 tablet by mouth once daily. - meloxicam (MOBIC) 15 mg tablet Take 1 tablet by mouth once daily. Take with food. - OMEGA-3 FATTY ACIDS/FISH OIL (OMEGA 3 FISH OIL ORAL) Take by mouth once daily. Facility-Administered Medications as of 03/13/2023 - romosozumab-aqqg 210 mg injection ([facility]ENITY) Problem List As Of Date 01/23/2023 Noted Resolved Osteoporosis [M81.0] 12/30/2012 Arthritis [M19.90] 12/30/2012 Herniated cervical disc [M50.20] 12/30/2012 Fibromyalgia [M79.7] 12/30/2012 Back pain, lumbosacral [M54.50] 12/30/2012 Pruritus ani [L29.0] 04/20/2013 09/20/2013 Hemorrhoids [K64.9] 08/03/2013 09/20/2013 Eczema [L30.9] 09/20/2013 Pain in joint, site unspecified [M25.50] 04/11/2014 Cervicalgia [M54.2] 09/20/2014 Tobacco abuse disorder [Z72.0] 09/20/2014 Hyperlipidemia [E78.5] 09/20/2014 Encounter Status:Closed by LALITHA RAMOS on 03/13/23 Normal [facility] CT CERVICAL SPINE WO IVCONon 01-23-2023 CT CERVICAL SPINE WO IVCON * * *Final Report* * * DATE OF EXAM: Jan 23 2023 11:03AM [facility] 0505 - CT CERVICAL SPINE WO IVCON / PROCEDURE REASON: Spinal stenosis of cervical region * * * * Physician Interpretation * * * * EXAMINATION: CT CERVICAL SPINE WO IVCON, CT THORACIC SPINE WO IVCON CLINICAL HISTORY: Spinal stenosis of cervical region TECHNIQUE: Spiral, high resolution axial unenhanced images were obtained from the skull base to the thoracolumbar junction with sagittal and coronal planar reconstructions. MQ: CTCTWO_3 CT Radiation dose: Integrated Dose-Length Product (DLP) for this visit = C-spine 301 T- spine 794 mGy*cm. CT Dose Reduction Employed: Automated exposure control(AEC) and iterative recon COMPARISON: MRI cervical and thoracic spine 05/31/2022. RESULT: CERVICAL: Counting reference: Craniocervical junction. Anatomic Variants: None. Quitline Counselor (topogram) images: Status post right shoulder arthroplasty and bilateral hip replacement surgery. Additional lower lumbar spine posterior baldomero and screw fixation hardware is noted. Alignment: Stepwise retrolisthesis from C5 to C7. Grade 1 anterolisthesis of C7 on T1. Craniocervical junction: Craniocervical junction is normal. Bone marrow / fracture: Postsurgical changes from C5-C7 ACDF and posterior baldomero and screw fixation extending from C2 to T2. Status post laminectomy from C3 to C5. C6 corpectomy and placement of C6 spacer. Interbody cage placement at C3-C4, C4-C5, and C5-C6. Near complete fusion of the C3 to T1 vertebral bodies and fusion of the posterior spinal elements extending from C2 to T2. No periprosthetic lucency or fracture. No evidence of a lytic or blastic process in the visualized spine. No evidence of acute or chronic fracture. Cervical soft tissues: Atherosclerotic calcifications. Surgical nataliia along the left parapharyngeal region likely from prior ACDF surgery. Posterior soft tissue planes are disrupted from prior surgical intervention. C2-C3: Disc osteophyte complex and facet joint hypertrophy without significant canal or neural foraminal narrowing. Canal is surgically decompressed posteriorly. C3-C4: Disc osteophyte complex and facet joint hypertrophy without significant canal or neural foraminal narrowing. Canal is surgically decompressed posteriorly. C4-C5: Disc osteophyte complex and facet joint hypertrophy without significant canal or neural foraminal narrowing. Canal is surgically decompressed posteriorly. C5-C6: Disc osteophyte complex and facet joint hypertrophy without significant spinal canal stenosis. Mild right foraminal stenosis. No significant left foraminal stenosis. C6-C7: Disc osteophyte complex and facet joint hypertrophy without significant canal or neural foraminal narrowing. C7-T1: Canal and foramina are patent. Other: Centrilobular emphysema and bilateral upper lungs. THORACIC: Counting reference: Craniocervical and lumbosacral junctions For the purposes of this report, Assume the first normal thoracic rib is at the T1 level. Quitline Counselor (topogram) images: As above Alignment: Minimal anterolisthesis of T1 on T2. Grade 2 anterolisthesis of L2 on L3. Approximately 15% retrolisthesis of L1 on L2. Subtle dextrocurvature, apex T7-T8. Bone marrow / fracture: Chronic wedge-shaped compression deformity of the T3 vertebral body with associated approximately 30% vertebral body height loss. Mild superior endplate compression deformity involving the T12 vertebral body with Schmorl's node and associated approximately 10% vertebral body height loss. Multilevel endplate irregularities likely representing Schmorl nodes. Severe sclerotic changes of T3 and inferior T2 endplate. T2 vertebral body height loss again of approximately 30-40%. Mild T3 superior endplate height loss of approximately 35%, unchanged. No evidence of a lytic or blastic process in the visualized spine. Thoracic soft tissues: The paraspinal soft tissues planes are maintained. Canal and foramina: A portion of the right T1 pedicle screw traverses the right anterolateral aspect of the spinal canal. Left T1 pedicle screw terminates at the level of the left first costovertebral joint joint. Severe disc space height loss at T2-T3 with associated severe bilateral neural foraminal narrowing and severe canal narrowing. Moderate bilateral neural foraminal narrowing at T3-T4. Otherwise, the bony thoracic canal and foramina are patent. IMPRESSION: Extensive postsurgical changes in the cervical and upper thoracic spine as detailed with no findings to suggest periprosthetic lucency or hardware fracture. Multilevel degenerative changes as detailed. Cervical Anatomic Variant: None. Assume 7 cervical vertebrae with counting from the craniocervical junction. Anatomic Thoracic/Lumbar Variant: Assume first normal thoracic rib is the T1 level. Reproducer: FLOWER Transcribe Date/Time: Jan 23 2023 11:30A Dictated by : O (more content not included)... Normal [facility] CT THORACIC SPINE WO IVCONon 01-23-2023 CT THORACIC SPINE WO IVCON * * *Final Report* * * DATE OF EXAM: Jan 23 2023 11:03AM [facility] 0514 - CT THORACIC SPINE WO IVCON / PROCEDURE REASON: Arthrodesis status * * * * Physician Interpretation * * * * EXAMINATION: CT CERVICAL SPINE WO IVCON, CT THORACIC SPINE WO IVCON CLINICAL HISTORY: Spinal stenosis of cervical region TECHNIQUE: Spiral, high resolution axial unenhanced images were obtained from the skull base to the thoracolumbar junction with sagittal and coronal planar reconstructions. MQ: CTCTWO_3 CT Radiation dose: Integrated Dose-Length Product (DLP) for this visit = C-spine 301 T- spine 794 mGy*cm. CT Dose Reduction Employed: Automated exposure control(AEC) and iterative recon COMPARISON: MRI cervical and thoracic spine 05/31/2022. RESULT: CERVICAL: Counting reference: Craniocervical junction. Anatomic Variants: None. Quitline Counselor (topogram) images: Status post right shoulder arthroplasty and bilateral hip replacement surgery. Additional lower lumbar spine posterior baldomero and screw fixation hardware is noted. Alignment: Stepwise retrolisthesis from C5 to C7. Grade 1 anterolisthesis of C7 on T1. Craniocervical junction: Craniocervical junction is normal. Bone marrow / fracture: Postsurgical changes from C5-C7 ACDF and posterior baldomero and screw fixation extending from C2 to T2. Status post laminectomy from C3 to C5. C6 corpectomy and placement of C6 spacer. Interbody cage placement at C3-C4, C4-C5, and C5-C6. Near complete fusion of the C3 to T1 vertebral bodies and fusion of the posterior spinal elements extending from C2 to T2. No periprosthetic lucency or fracture. No evidence of a lytic or blastic process in the visualized spine. No evidence of acute or chronic fracture. Cervical soft tissues: Atherosclerotic calcifications. Surgical nataliia along the left parapharyngeal region likely from prior ACDF surgery. Posterior soft tissue planes are disrupted from prior surgical intervention. C2-C3: Disc osteophyte complex and facet joint hypertrophy without significant canal or neural foraminal narrowing. Canal is surgically decompressed posteriorly. C3-C4: Disc osteophyte complex and facet joint hypertrophy without significant canal or neural foraminal narrowing. Canal is surgically decompressed posteriorly. C4-C5: Disc osteophyte complex and facet joint hypertrophy without significant canal or neural foraminal narrowing. Canal is surgically decompressed posteriorly. C5-C6: Disc osteophyte complex and facet joint hypertrophy without significant spinal canal stenosis. Mild right foraminal stenosis. No significant left foraminal stenosis. C6-C7: Disc osteophyte complex and facet joint hypertrophy without significant canal or neural foraminal narrowing. C7-T1: Canal and foramina are patent. Other: Centrilobular emphysema and bilateral upper lungs. THORACIC: Counting reference: Craniocervical and lumbosacral junctions For the purposes of this report, Assume the first normal thoracic rib is at the T1 level. Quitline Counselor (topogram) images: As above Alignment: Minimal anterolisthesis of T1 on T2. Grade 2 anterolisthesis of L2 on L3. Approximately 15% retrolisthesis of L1 on L2. Subtle dextrocurvature, apex T7-T8. Bone marrow / fracture: Chronic wedge-shaped compression deformity of the T3 vertebral body with associated approximately 30% vertebral body height loss. Mild superior endplate compression deformity involving the T12 vertebral body with Schmorl's node and associated approximately 10% vertebral body height loss. Multilevel endplate irregularities likely representing Schmorl nodes. Severe sclerotic changes of T3 and inferior T2 endplate. T2 vertebral body height loss again of approximately 30-40%. Mild T3 superior endplate height loss of approximately 35%, unchanged. No evidence of a lytic or blastic process in the visualized spine. Thoracic soft tissues: The paraspinal soft tissues planes are maintained. Canal and foramina: A portion of the right T1 pedicle screw traverses the right anterolateral aspect of the spinal canal. Left T1 pedicle screw terminates at the level of the left first costovertebral joint joint. Severe disc space height loss at T2-T3 with associated severe bilateral neural foraminal narrowing and severe canal narrowing. Moderate bilateral neural foraminal narrowing at T3-T4. Otherwise, the bony thoracic canal and foramina are patent. IMPRESSION: Extensive postsurgical changes in the cervical and upper thoracic spine as detailed with no findings to suggest periprosthetic lucency or hardware fracture. Multilevel degenerative changes as detailed. Cervical Anatomic Variant: None. Assume 7 cervical vertebrae with counting from the craniocervical junction. Anatomic Thoracic/Lumbar Variant: Assume first normal thoracic rib is the T1 level. Reproducer: FLOWER Transcribe Date/Time: Jan 23 2023 11:30A Dictated by : YESSI ALMONTE MD (more content not included)... Normal [facility] CNOVon 01-19-2023 CNOV Office Visit (SPNSME ) YARA LOYA ([id number]) 1950 F Date Time Provider Department 01/19/23 10:40 AM JAMIE BULL During your visit today, we recorded the following information about you: Pulse Blood pressure Weight 89/minute 137/75 43.5 kg Jamie Bull MD 01/19/2023 4:04 PM Signed SPINE SURGERY ESTABLISHED This is an in-person [...] population. Higher percentile rankings indicate better function/quality (more content not included)... Normal [facility] Office Visit (ENDMED ) YARA LOYA ([id number]) 1950 F Date Time Provider Department 01/19/23 9:30 AM NURSE ARI UYEN SELINA During your visit today, we recorded the following information about you: Yuliana Bagley RN 01/19/2023 10:23 AM Signed The patient is here for an injection of Evenity Injection #4 of 12 Dose: 210 mg (105 mg/1.17 mL X2). Route: Subcutaneous Lot# [id number] Expiration date 01/31/2025 [facility]: 74642-913-41 Given without incident. Site: Right arm present [...] and no reactions noted. Medication supplied by [employer] [facility]. Yuliana Bagley RN Referring Provider: JAMIE BULL [[id number]] Allergies As of Date: 01/19/2023 Noted Allergy Reaction SEASONAL ALLERGIES 09/20/2013 14 - Other: See Comments Comments: sinus Date Reviewed: 01/19/2023 Reviewed by: Yuliana Bagley RN - Fully Assessed Reason for Visit: Evenity Injection [Other] Primary Visit Diagnosis:Age-related osteoporosis with current pathological fracture with routine healing, subsequent encounter [M80.00XD] Prescriptions as of 01/19/2023 - methocarbamol (ROBAXIN-750) 750 mg tablet Take 1 tablet by mouth three times daily as needed. - linaclotide (LINZESS) 145 mcg capsule Take by mouth as needed. - BIOTIN ORAL Take 2 tablets by mouth once daily. 6000 MCG Biotin, with Keratin 50 mg - CALCIUM ORAL Take 600 mg by mouth once daily. - iv contrast (will be provided with radiology [...] in the MR contrast administration guidelines link. - iv contrast (will be provided with radiology [...] in the MR contrast administration guidelines link. - hydrOXYchloroQUINE (PLAQUENIL) 200 mg tablet Take 200 mg by mouth once daily. - folic acid 0.8 mg cap Take 2 capsules by mouth once daily. - methotrexate 2.5 mg tablet Take 2.5 mg by mouth one time only. Taking 6 tablets one day a week on - oxyCODONE myristate (XTAMPZA ER) 13.5 mg CSpT Take by mouth. - cholecalciferol (VITAMIN D3) 5,000 unit tab Take 5,000 Units by mouth once daily. - cetirizine (ZYRTEC) 10 mg tablet Take 10 mg by mouth once daily. - predniSONE (DELTASONE) 10 mg tablet Take 10 mg by mouth once daily. - gabapentin (NEURONTIN) 300 mg capsule Take 1 capsule by mouth twice daily for 180 days. - CALCIUM CARBONATE (CALCIUM 300 ORAL) Take 1 tablet by mouth once daily. - meloxicam (MOBIC) 15 mg tablet Take 1 tablet by mouth once daily. Take with food. - OMEGA-3 FATTY ACIDS/FISH OIL (OMEGA 3 FISH OIL ORAL) Take by mouth once daily. Facility-Administered Medications as of 01/19/2023 - romosozumab-aqqg 210 mg injection ([facility]ENITY) Problem List As Of Date 01/19/2023 Noted Resolved Osteoporosis [M81.0] 12/30/2012 Arthritis [M19.90] 12/30/2012 Herniated cervical disc [M50.20] 12/30/2012 Fibromyalgia [M79.7] 12/30/2012 Back pain, lumbosacral [M54.50] 12/30/2012 Pruritus ani [L29.0] 04/20/2013 09/20/2013 Hemorrhoids [K64.9] 08/03/2013 09/20/2013 Eczema [L30.9] 09/20/2013 Pain in joint, site unspecified [M25.50] 04/11/2014 Cervicalgia [M54.2] 09/20/2014 Tobacco abuse disorder [Z72.0] 09/20/2014 Hyperlipidemia [E78.5] 09/20/2014 Visit Notes: >> Yuliana Bagley RN Mon Jan 19, 2023 10:19 AM Status: Signed The patient is here for an injection of Evenity Injection #4 of 12 Dose: 210 mg (105 mg/1.17 mL X2). Route: Subcutaneous Lot# [id number] Expiration date 01/31/2025 [facility]: 15344-739-43 Given without incident. Site: Right arm present in clinic at time of injection. The date due for the next injection is in 30 days. On or after 02/18/2023. Last Injection: 11/13/2022 DAVID: 09/10/2022 NOV: 03/17/2023 Insurance: Pr (more content not included)... Normal [facility] CNPNon 12-16-2022 CNPN Telephone (ENDMED) YARA LOYA ([id number]) 1950 F Date Time Provider Department 12/16/22 LESLIE MONET During your visit today, we recorded the following information about you: Yuliana Bagley RN 12/16/2022 2:33 PM Signed Patient missed her # 4 Evenity Injection yesterday and did not call or reschedule as of yet. Called patient's home, left voice message to call office at [phone], and ask to speak to the nurse. Also, sent patient a [employer] message. Yuliana Bagley RN 12/16/2022 2:49 PM Signed Patient called back, state's she has COVID and will call back to reschedule when she is feeling better. Keep open. Lyric So, GREGORIA 12/24/2022 10:20 AM Signed Patient scheduled her #4 Evenity Injection for 01/19/2023. Closed Allergies As of Date: 12/16/2022 Noted Allergy Reaction SEASONAL ALLERGIES 09/20/2013 14 - Other: See Comments Comments: sinus Date Reviewed: 11/13/2022 Reviewed by: Lyric So, GREGORIA - Fully Assessed Reason for Visit: Appointment [[id number]] Prescriptions as of 12/24/2022 - methocarbamol (ROBAXIN-750) 750 mg tablet Take 1 tablet by mouth three times daily as needed. - linaclotide (LINZESS) 145 mcg capsule Take by mouth as needed. - BIOTIN ORAL Take 2 tablets by mouth once daily. 6000 MCG Biotin, with Keratin 50 mg - CALCIUM ORAL Take 600 mg by mouth once daily. - iv contrast (will be provided with radiology [...] in the MR contrast administration guidelines link. - iv contrast (will be provided with radiology [...] in the MR contrast administration guidelines link. - hydrOXYchloroQUINE (PLAQUENIL) 200 mg tablet Take 200 mg by mouth once daily. - folic acid 0.8 mg cap Take 2 capsules by mouth once daily. - methotrexate 2.5 mg tablet Take 2.5 mg by mouth one time only. Taking 6 tablets one day a week on - oxyCODONE myristate (XTAMPZA ER) 13.5 mg CSpT Take by mouth. - cholecalciferol (VITAMIN D3) 5,000 unit tab Take 5,000 Units by mouth once daily. - cetirizine (ZYRTEC) 10 mg tablet Take 10 mg by mouth once daily. - predniSONE (DELTASONE) 10 mg tablet Take 10 mg by mouth once daily. - gabapentin (NEURONTIN) 300 mg capsule Take 1 capsule by mouth twice daily for 180 days. - CALCIUM CARBONATE (CALCIUM 300 ORAL) Take 1 tablet by mouth once daily. - meloxicam (MOBIC) 15 mg tablet Take 1 tablet by mouth once daily. Take with food. - OMEGA-3 FATTY ACIDS/FISH OIL (OMEGA 3 FISH OIL ORAL) Take by mouth once daily. Facility-Administered Medications as of 12/24/2022 - romosozumab-aqqg 210 mg injection ([facility]ENITY) Problem List As Of Date 12/16/2022 Noted Resolved Osteoporosis [M81.0] 12/30/2012 Arthritis [M19.90] 12/30/2012 Herniated cervical disc [M50.20] 12/30/2012 Fibromyalgia [M79.7] 12/30/2012 Back pain, lumbosacral [M54.50] 12/30/2012 Pruritus ani [L29.0] 04/20/2013 09/20/2013 Hemorrhoids [K64.9] 08/03/2013 09/20/2013 Eczema [L30.9] 09/20/2013 Pain in joint, site unspecified [M25.50] 04/11/2014 Cervicalgia [M54.2] 09/20/2014 Tobacco abuse disorder [Z72.0] 09/20/2014 Hyperlipidemia [E78.5] 09/20/2014 Encounter Status:Closed by LYRIC SO on 12/24/22 [facility] ([facility] YARA LOYA ([id number]) 1950 F Date Time Provider Department 10/24/22 JAMIE BULL [facility] During your visit today, we recorded the following information about you: Renetta Acevedo 10/24/2022 8:56 AM Signed Patient calling asking for results of Xray dont one 10/20. She also wants to know if she can get a referral to another neurosurgeon closer to home in [place]. States that she has seen him before and was the one that did her first surgery. She would like to get a second opinion with him again but they are asking for a referral. Kam Martin RN 10/24/2022 9:39 AM Signed Will forward for review. Allergies As of Date: 10/24/2022 Noted Allergy Reaction SEASONAL ALLERGIES 09/20/2013 14 - Other: See Comments Comments: sinus Date Reviewed: 10/20/2022 Reviewed by: Lillian Hill MA - Fully Assessed Reason for Visit: Xray Results [439] Prescriptions as of 10/27/2022 - methocarbamol (ROBAXIN-750) 750 mg tablet Take 1 tablet by mouth three times daily as needed. - linaclotide (LINZESS) 145 mcg capsule Take by mouth as needed. - BIOTIN ORAL Take 2 tablets by mouth once daily. 6000 MCG Biotin, with Keratin 50 mg - CALCIUM ORAL Take 600 mg by mouth once daily. - iv contrast (will be provided with radiology [...] in the MR contrast administration guidelines link. - iv contrast (will be provided with radiology [...] in the MR contrast administration guidelines link. - hydrOXYchloroQUINE (PLAQUENIL) 200 mg tablet Take 200 mg by mouth once daily. - folic acid 0.8 mg cap Take 2 capsules by mouth once daily. - methotrexate 2.5 mg tablet Take 2.5 mg by mouth one time only. Taking 6 tablets one day a week on - oxyCODONE myristate (XTAMPZA ER) 13.5 mg CSpT Take by mouth. - cholecalciferol (VITAMIN D3) 5,000 unit tab Take 5,000 Units by mouth once daily. - cetirizine (ZYRTEC) 10 mg tablet Take 10 mg by mouth once daily. - predniSONE (DELTASONE) 10 mg tablet Take 10 mg by mouth once daily. - gabapentin (NEURONTIN) 300 mg capsule Take 1 capsule by mouth twice daily for 180 days. - CALCIUM CARBONATE (CALCIUM 300 ORAL) Take 1 tablet by mouth once daily. - meloxicam (MOBIC) 15 mg tablet Take 1 tablet by mouth once daily. Take with food. - OMEGA-3 FATTY ACIDS/FISH OIL (OMEGA 3 FISH OIL ORAL) Take by mouth once daily. Facility-Administered Medications as of 10/27/2022 - romosozumab-aqqg 210 mg injection ([facility]ENITY) Problem List As Of Date 10/24/2022 Noted Resolved Osteoporosis [M81.0] 12/30/2012 Arthritis [M19.90] 12/30/2012 Herniated cervical disc [M50.20] 12/30/2012 Fibromyalgia [M79.7] 12/30/2012 Back pain, lumbosacral [M54.50] 12/30/2012 Pruritus ani [L29.0] 04/20/2013 09/20/2013 Hemorrhoids [K64.9] 08/03/2013 09/20/2013 Eczema [L30.9] 09/20/2013 Pain in joint, site unspecified [M25.50] 04/11/2014 Cervicalgia [M54.2] 09/20/2014 Tobacco abuse disorder [Z72.0] 09/20/2014 Hyperlipidemia [E78.5] 09/20/2014 Encounter Status:Closed by KAM MARTIN on 10/27/22 [facility] XR Shoulder - left 2 Viewson 10-24-2022 IMPRESSION: Findings as discussed under Results portion of report. Reproducer: FLOWER Transcribe Date/Time: Oct 24 2022 4:24P Dictated by : SUGEY MINOR DO This examination was interpreted and the report reviewed and electronically signed by: SUGEY MINOR DO on Oct 24 2022 4:28PM [facility] * * *Final Report* * * DATE OF EXAM: Oct 20 2022 9:09AM ONOFRE 5254 - XR SHOULDER 2V AP/TRUE AP LT / PROCEDURE REASON: S22.031D-Closed stable burst fracture of third thoracic vertebra with routine he * * * * Physician Interpretation * * * * EXAM(s): XR SHOULDER 2V AP/TRUE AP LT EXAM DATE/TIME: 10/20/2022 9:09 AM HISTORY: 72 years old Clinical information: Closed stable burst fracture of third thoracic vertebra with routine healing, subsequent encounter left shoulder pain for a couple of months, no known injury TECHNIQUE: Images: XR SHOULDER 2V AP/TRUE AP LT Comparison: None. RESULT: Findings: Marked bony demineralization. Extensive fixation hardware lower cervical spine. Moderate narrowing of the AC joint. Marked narrowing of the glenohumeral joint. Large amount of spurring along the inferior margin of the joint space No fractures or dislocations are seen. [facility] Provider, Kadie [facility] - 10/24/2022 * * *Final Report* * * DATE OF EXAM: Oct 20 2022 9:09AM ONOFRE 5254 - XR SHOULDER 2V AP/TRUE AP LT / PROCEDURE REASON: S22.031D-Closed stable burst fracture of third thoracic vertebra with routine he * * * * Physician Interpretation * * * * EXAM(s): XR SHOULDER 2V AP/TRUE AP LT EXAM DATE/TIME: 10/20/2022 9:09 AM HISTORY: 72 years old Clinical information: Closed stable burst fracture of third thoracic vertebra with routine healing, subsequent encounter left shoulder pain for a couple of months, no known injury TECHNIQUE: Images: XR SHOULDER 2V AP/TRUE AP LT Comparison: None. RESULT: Findings: Marked bony demineralization. Extensive fixation hardware lower cervical spine. Moderate narrowing of the AC joint. Marked narrowing of the glenohumeral joint. Large amount of spurring along the inferior margin of the joint space No fractures or dislocations are seen. IMPRESSION IMPRESSION: Findings as discussed under Results portion of report. Reproducer: PSCB Transcribe Date/Time: Oct 24 2022 4:24P Dictated by : SUGEY MINOR DO This examination was interpreted and the report reviewed and electronically signed by: SUGEY MINOR DO on Oct 24 2022 4:28PM EST [facility] XR Shoulder - left 2 ViewsOr dered By: [facility]cf Provider on 10-24-2022 [facility] XR SHOULDER 2V AP/TRUE AP LT on 10-20-2022 XR SHOULDER 2V AP/TRUE AP LT * * *Final Report* * * DATE OF EXAM: Oct 20 2022 9:09AM ONO[facility]RE 5254 - XR SHOULDER 2V AP/TRUE AP LT / PROCEDURE REASON: S22.031D-Closed stable burst fracture of third thoracic vertebra with routine he * * * * Physician Interpretation * * * * EXAM(s): XR SHOULDER 2V AP/TRUE AP LT EXAM DATE/TIME: 10/20/2022 9:09 AM HISTORY: 72 years old Clinical information: Closed stable burst fracture of third thoracic vertebra with routine healing, subsequent encounter left shoulder pain for a couple of months, no known injury TECHNIQUE: Images: XR SHOULDER 2V AP/TRUE AP LT Comparison: None. RESULT: Findings: Marked bony demineralization. Extensive fixation hardware lower cervical spine. Moderate narrowing of the AC joint. Marked narrowing of the glenohumeral joint. Large amount of spurring along the inferior margin of the joint space No fractures or dislocations are seen. IMPRESSION: Findings as discussed under Results portion of report. Reproducer: FLOWER Transcribe Date/Time: Oct 24 2022 4:24P Dictated by : SUGEY MINOR DO This examination was interpreted and the report reviewed and electronically signed by: SUGEY MINOR DO on Oct 24 2022 4:28PM EST [id number] [facility] XR Shoulder - left 2 Viewson 10-20-2022 Radiology Study observation (narrative) [facility] XR Lumbar spine 3 Viewson IMPRESSION: Findings as described above. Reproducer: FLOWER Transcribe Date/Time: Aug 04 2022 10:45A Dictated by : KARLIE VASQUEZ MD This examination was interpreted and the report reviewed and electronically signed by: KARLIE VASQUEZ MD on Aug 04 2022 10:50AM EST [facility] * * *Final Report* * * DATE OF EXAM: Jul 31 2022 8:42AM WOX 5228 - XR LUMBAR 3V AP/LAT/L5-S1 / PROCEDURE REASON: Age-related osteoporosis with current pathological fracture with routine healing * * * * Physician Interpretation * * * * EXAM TITLE: XR LUMBAR 3V AP/LAT/L5-S1 EXAM DATE/TIME: 07/31/2022 8:42 AM COMPARISON: None. CLINICAL INDICATION/HISTORY: Osteoporosis with pathologic fracture. TECHNIQUE: AP, lateral and cone down lateral views of the lumbar spine are presented. FINDINGS: There are five [id number] lumbar vertebrae. Left-sided curvature/levoscoliosi s seen on AP view. Status post L4 and L5 posterior spinal fusion. L2-L5 laminectomy also noted. There is T12 vertebral body compression deformity/age indeterminate fracture, involving the superior endplate. Grade 1 L1 on L2 retrolisthesis is demonstrated. There appears to be grade 1-2 L4 on L5 and L5 on S1 anterolisthesis. L1-2 and L4-5 disc space narrowing is demonstrated, with endplate sclerosis. There is mild to moderate osteophyte formation. Others: Status post bilateral hip total replacement. [facility] Provider, Kadie Anne - 08/04/2022 * * *Final Report* * * DATE OF EXAM: Jul 31 2022 8:42AM WOX 5228 - XR LUMBAR 3V AP/LAT/L5-S1 / PROCEDURE REASON: Age-related osteoporosis with current pathological fracture with routine healing * * * * Physician Interpretation * * * * EXAM TITLE: XR LUMBAR 3V AP/LAT/L5-S1 EXAM DATE/TIME: 07/31/2022 8:42 AM COMPARISON: None. CLINICAL INDICATION/HISTORY: Osteoporosis with pathologic fracture. TECHNIQUE: AP, lateral and cone down lateral views of the lumbar spine are presented. FINDINGS: There are five [id number]-ybnzowr lumbar vertebrae. Left-sided curvature/levoscoliosi s seen on AP view. Status post L4 and L5 posterior spinal fusion. L2-L5 laminectomy also noted. There is T12 vertebral body compression deformity/age indeterminate fracture, involving the superior endplate. Grade 1 L1 on L2 retrolisthesis is demonstrated. There appears to be grade 1-2 L4 on L5 and L5 on S1 anterolisthesis. L1-2 and L4-5 disc space narrowing is demonstrated, with endplate sclerosis. There is mild to moderate osteophyte formation. Others: Status post bilateral hip total replacement. IMPRESSION IMPRESSION: Findings as described above. Reproducer: PSCB Transcribe Date/Time: Aug 04 2022 10:45A Dictated by : KARLIE VASQUEZ MD This examination was interpreted and the report reviewed and electronically signed by: KARLIE VASQUEZ MD on Aug 04 2022 10:50AM EST [facility] XR Lumbar spine 3 ViewsOrder ed By: Ccf Provider on 08-04-2022 [facility] XR Lumbar spine 3 Viewson Radiology Study observation (narrative) [facility] MRI CERVICAL SPINE WO/W IVCO Non 05-31-2022 MRI CERVICAL SPINE WO/W IVCON * * *Final Report* * * DATE OF EXAM: May 31 2022 2:50PM [facility] 0298 - MRI CERVICAL SPINE WO/W IVCON / PROCEDURE REASON: multiple diagnoses * * * * Physician Interpretation * * * * EXAMINATION: MRI CERVICAL SPINE WO/W IVCON, MRI THORACIC SPINE WO/W IVCON CLINICAL HISTORY: Cervicalgia, hyperreflexia and chronic myelopathy, prior cervical fusion TECHNIQUE: Routine cervical and thoracic spine MR protocol without and with intravenous gadolinium. MQ: [id number] Contrast: IV administration of 8 ml of Dotarem COMPARISON: MRI cervical spine outside hospital 01/24/2016, CT cervical spine 02/27/2016, CT cervical myelogram 03/28/2016 RESULT: CERVICAL: Counting reference: Craniocervical junction. Anatomic Variants: None. Localizer images: No significant findings Alignment: Reversal of the cervical lordosis centered at C5. Grade 2 anterolisthesis of T2 on T3. Craniocervical junction: Degenerative changes of the atlantodental articulation with hypertrophy of the ligaments, mildly effacing the ventral thecal sac at the craniocervical junction without impact on the cord. Cord: Cervical and thoracic spinal cord is normal in signal intensity and morphology with the exception of extradural defects detailed below. Bone marrow signal/fracture: Extensive postoperative findings of dorsal decompression at C3-C6 and posterior instrumented fusion from C2-T2 with bilateral lateral mass screws and interconnecting rods, new compared to 03/28/2016. Anterior discectomy and cervical fusion at C5-C7. Interbody fusion at C3-C5. There is severe degenerative disc space narrowing at T2-T4. Chronic compression fracture and moderate vertebral body height loss of T3 with mild bony retropulsion. Vertebral body height loss with concavity of the inferior T2 endplate. No evidence of pathologic marrow infiltration. Cervical soft tissues: Disruption of the dorsal paraspinal soft tissue planes from dorsal decompression and bilateral instrumented fusion. Gradient echo artifact along the dorsal midline incision from chronic blood products. C2-C3: Patent canal and bilateral foramina. C3-C4: Decompressed patent canal. No significant foraminal stenosis. C4-C5: Decompressed patent canal. Mild right foraminal stenosis from facet hypertrophy. Left foramen is patent. C5-C6: Posterior osteophytosis with moderate to severe right and moderate left foraminal stenoses from facet and uncovertebral hypertrophy. Dorsally decompressed canal. C6-C7: Moderate left foraminal stenosis from facet and uncovertebral hypertrophy. The canal and right foramen are patent. C7-T1: Canal and foramina are patent. THORACIC: Counting reference: Craniocervical and lumbosacral junctions For the purposes of this report, L4-5 is considered the level of the iliac crest and assume there are 5 lumbar-type vertebrae. Anatomic variant: None. Quitline Counselor (topogram) images: Bilateral total hip arthroplasties. Instrumented fusion in the lower lumbar spine is partially visualized. Alignment: Grade 2 anterolisthesis of C2 on C3, progressed compared to prior CT. Retrolisthesis of L1 on L2 and L2 on L3. Cord: Severe canal stenosis at T2-T3 and T3-T4 from spondylolisthesis with effacement of the ventral and dorsal CSF spaces but no significant associated cord compression or abnormal intramedullary signal. The remainder of the thoracic cord otherwise appears normal in signal morphology without pathologic intradural enhancement. Bone marrow signal/fracture: Chronic compression deformity of T3 with vertebral body height loss of approximately 70%. Mild bony retropulsion contributes to canal stenosis at T3. Chronic compression fracture of the superior T12 endplate without significant bony retropulsion or canal stenosis. Approximately 20% vertebral body height loss. No evidence of pathologic marrow infiltration. Multilevel degenerative disc disease with endplate degenerative changes and Schmorl's nodes. Posterior elements are normal in morphology and alignment. Thoracic soft tissues: The paraspinal soft tissues are within normal limits. Canal and foramina: There is severe canal stenosis at T2-T3 and T3-T4 from spondylolisthesis and bony retropulsion of the T3 fracture. Severe bilateral foraminal stenoses at T2-T3 from superimposed facet arthropathy. Mild to moderate right foraminal stenosis at T3-T4. Remainder of the thoracic canal and foramina are otherwise patent. IMPRESSION: Extensive postoperative findings of dorsal and anterior fusion in the cervical and upper thoracic spine as detailed. High-grade canal stenosis at T2-T3 and T3-T4 from spondylolisthesis and chronic T3 compression fracture with bony retropulsion. No significant cord compression or abnormal cord signal. Superimposed cervical and thoracic spondylosis with severe foraminal stenoses at T2-T3, moderate right foraminal stenosis at T3-T4. Moderate to severe right for (more content not included)... Normal [facility] MRI THORACIC SPINE WO/W IVCO Non 05-31-2022 MRI THORACIC SPINE WO/W IVCON * * *Final Report* * * DATE OF EXAM: May 31 2022 2:50PM [facility] 0326 - MRI THORACIC SPINE WO/W IVCON / PROCEDURE REASON: Adverse effect of treatment, initial encounter * * * * Physician Interpretation * * * * EXAMINATION: MRI CERVICAL SPINE WO/W IVCON, MRI THORACIC SPINE WO/W IVCON CLINICAL HISTORY: Cervicalgia, hyperreflexia and chronic myelopathy, prior cervical fusion TECHNIQUE: Routine cervical and thoracic spine MR protocol without and with intravenous gadolinium. MQ: [id number]_3 Contrast: IV administration of 8 ml of Dotarem COMPARISON: MRI cervical spine outside hospital 01/24/2016, CT cervical spine 02/27/2016, CT cervical myelogram 03/28/2016 RESULT: CERVICAL: Counting reference: Craniocervical junction. Anatomic Variants: None. Localizer images: No significant findings Alignment: Reversal of the cervical lordosis centered at C5. Grade 2 anterolisthesis of T2 on T3. Craniocervical junction: Degenerative changes of the atlantodental articulation with hypertrophy of the ligaments, mildly effacing the ventral thecal sac at the craniocervical junction without impact on the cord. Cord: Cervical and thoracic spinal cord is normal in signal intensity and morphology with the exception of extradural defects detailed below. Bone marrow signal/fracture: Extensive postoperative findings of dorsal decompression at C3-C6 and posterior instrumented fusion from C2-T2 with bilateral lateral mass screws and interconnecting rods, new compared to 03/28/2016. Anterior discectomy and cervical fusion at C5-C7. Interbody fusion at C3-C5. There is severe degenerative disc space narrowing at T2-T4. Chronic compression fracture and moderate vertebral body height loss of T3 with mild bony retropulsion. Vertebral body height loss with concavity of the inferior T2 endplate. No evidence of pathologic marrow infiltration. Cervical soft tissues: Disruption of the dorsal paraspinal soft tissue planes from dorsal decompression and bilateral instrumented fusion. Gradient echo artifact along the dorsal midline incision from chronic blood products. C2-C3: Patent canal and bilateral foramina. C3-C4: Decompressed patent canal. No significant foraminal stenosis. C4-C5: Decompressed patent canal. Mild right foraminal stenosis from facet hypertrophy. Left foramen is patent. C5-C6: Posterior osteophytosis with moderate to severe right and moderate left foraminal stenoses from facet and uncovertebral hypertrophy. Dorsally decompressed canal. C6-C7: Moderate left foraminal stenosis from facet and uncovertebral hypertrophy. The canal and right foramen are patent. C7-T1: Canal and foramina are patent. THORACIC: Counting reference: Craniocervical and lumbosacral junctions For the purposes of this report, L4-5 is considered the level of the iliac crest and assume there are 5 lumbar-type vertebrae. Anatomic variant: None. Quitline Counselor (topogram) images: Bilateral total hip arthroplasties. Instrumented fusion in the lower lumbar spine is partially visualized. Alignment: Grade 2 anterolisthesis of C2 on C3, progressed compared to prior CT. Retrolisthesis of L1 on L2 and L2 on L3. Cord: Severe canal stenosis at T2-T3 and T3-T4 from spondylolisthesis with effacement of the ventral and dorsal CSF spaces but no significant associated cord compression or abnormal intramedullary signal. The remainder of the thoracic cord otherwise appears normal in signal morphology without pathologic intradural enhancement. Bone marrow signal/fracture: Chronic compression deformity of T3 with vertebral body height loss of approximately 70%. Mild bony retropulsion contributes to canal stenosis at T3. Chronic compression fracture of the superior T12 endplate without significant bony retropulsion or canal stenosis. Approximately 20% vertebral body height loss. No evidence of pathologic marrow infiltration. Multilevel degenerative disc disease with endplate degenerative changes and Schmorl's nodes. Posterior elements are normal in morphology and alignment. Thoracic soft tissues: The paraspinal soft tissues are within normal limits. Canal and foramina: There is severe canal stenosis at T2-T3 and T3-T4 from spondylolisthesis and bony retropulsion of the T3 fracture. Severe bilateral foraminal stenoses at T2-T3 from superimposed facet arthropathy. Mild to moderate right foraminal stenosis at T3-T4. Remainder of the thoracic canal and foramina are otherwise patent. IMPRESSION: Extensive postoperative findings of dorsal and anterior fusion in the cervical and upper thoracic spine as detailed. High-grade canal stenosis at T2-T3 and T3-T4 from spondylolisthesis and chronic T3 compression fracture with bony retropulsion. No significant cord compression or abnormal cord signal. Superimposed cervical and thoracic spondylosis with severe foraminal stenoses at T2-T3, moderate right foraminal stenosis at T3-T4. Mo (more content not included)... Normal [facility] No Panel Informationon 05-31 [facility] XR CERV OTHER 4V AP/LAT/FLX/ EXTon 04-18-2022 IMPRESSION: Findings as discussed under Results portion of report. Reproducer: PSCB Transcribe Date/Time: Apr 18 2022 9:25A Dictated by : SUGEY MINOR DO This examination was interpreted and the report reviewed and electronically signed by: SUGEY MINOR DO on Apr 18 2022 9:36AM [facility] * * *Final Report* * * DATE OF EXAM: Apr 17 2022 10:48AM [facility]O 5310 - XR CERVICAL 4V AP/LAT/FLX/EXT / PROCEDURE REASON: multiple diagnoses * * * * Physician Interpretation * * * * Cervical spine: HISTORY: Indication: Cervicalgia Arthrodesis status Adverse effect of treatment, initial encounter right arm pain, started in july right arm pain, started in july TECHNIQUE: Views obtained: XR CERVICAL 4V AP/LAT/FLX/EXT Comparison: None. RESULT: Findings: Posterior fusion with metallic rods and screws extend from C2 to the upper thoracic levels. There is also anterior fusion bridging between C5 and C7 or T1 there is been removal of the vertebral bodies and insertion of a artificial replacement. Disk spaces: Well-preserved. Spine alignment: The vertebra are in good alignment. No fractures or dislocations are seen. [facility] Provider, Kadie Anne - 04/18/2022 * * *Final Report* * * DATE OF EXAM: Apr 17 2022 10:48AM ONO[facility]RE 5310 - XR CERVICAL 4V AP/LAT/FLX/EXT / PROCEDURE REASON: multiple diagnoses * * * * Physician Interpretation * * * * Cervical spine: HISTORY: Indication: Cervicalgia Arthrodesis status Adverse effect of treatment, initial encounter right arm pain, started in july right arm pain, started in july TECHNIQUE: Views obtained: XR CERVICAL 4V AP/LAT/FLX/EXT Comparison: None. RESULT: Findings: Posterior fusion with metallic rods and screws extend from C2 to the upper thoracic levels. There is also anterior fusion bridging between C5 and C7 or T1 there is been removal of the vertebral bodies and insertion of a artificial replacement. Disk spaces: Well-preserved. Spine alignment: The vertebra are in good alignment. No fractures or dislocations are seen. IMPRESSION IMPRESSION: Findings as discussed under Results portion of report. Reproducer: FLOWER Transcribe Date/Time: Apr 18 2022 9:25A Dictated by : SUGEY MINOR DO This examination was interpreted and the report reviewed and electronically signed by: SUGEY MINOR DO on Apr 18 2022 9:36AM EST [facility] XR CERV OTHER 4V AP/LAT/FLX/ EXTOrdered By: [facility]cf Provider on 04-18-2022 [facility] XR CERV OTHER 4V AP/LAT/FLX/ EXTon 04-17-2022 Radiology Study observation (narrative) [facility] EMG(NEURO/NI)on 02-28-2022 [facility] .Auto Diffon 01-18-2020 Ammonia (P) [Mass/Vol] 1.10 10 3/mcL High 0.15-1.00 [facility] ([place]) Comment on above: Performed By: #### C BC, ADIFF, ANEU, BMP, GFR #### [address] [address] Basophils (Bld) [#/Vol] 0.00 10 3/mcL Normal 0.00-0.19 [facility] ([place]) Comment on above: Performed By: #### C BC, ADIFF, ANEU, BMP, GFR #### [address] [address] Basophils/100 WBC (Bld) 0.3 % Normal 0.0-2.5 [facility] ([place]) Comment on above: Performed By: #### C BC, ADIFF, ANEU, BMP, GFR #### [address] [address] Eosinophils (Bld) [#/Vol] 0.00 10 3/mcL Normal 0.00-0.40 [facility] ([place]) Comment on above: Performed By: #### C BC, ADIFF, ANEU, BMP, GFR #### [address] [address] Eosinophils/100 WBC (Bld) 0.0 % Normal 0.0-7.0 [facility] ([place]) Comment on above: Performed By: #### C BC, ADIFF, ANEU, BMP, GFR #### [address] [address] Lymphocytes (Bld) [#/Vol] 1.50 10 3/mcL Normal 0.77-3.85 [facility] ([place]) Comment on above: Performed By: #### C BC, ADIFF, ANEU, BMP, GFR #### [address] [address] Lymphocytes/100 WBC (Bld) 11.0 % Normal 10.0-50.0 [facility] ([place]) Comment on above: Performed By: #### C BC, ADIFF, ANEU, BMP, GFR #### [address] [address] Monocytes/100 WBC (Bld) 8.2 % Normal 1.7-13.0 [facility] ([place]) Comment on above: Performed By: #### C BC, ADIFF, ANEU, BMP, GFR #### [address] [address] Neutrophils/100 WBC (Bld) 80.5 % High 37.0-80.0 [facility] ([place]) Comment on above: Performed By: #### C BC, ADIFF, ANEU, BMP, GFR #### [address] [address] .GFRon 01-18-2020 GFR Non- 63 ml/min/1.73sqm Normal [facility] ([place]) Comment on above: Result Comment: GFR Population mean for , Non- Americans Ages 20-29 = 116 mL/min/1.73 sq.m. Ages 30-39 = 107 mL/min/1.73 sq.m. Ages 40-49 = 99 mL/min/1.73 sq.m. Ages 50-59 = 93 mL/min/1.73 sq.m. Ages 60-69 = 85 mL/min/1.73 sq.m. Ages 70+ = 75 mL/min/1.73 sq.m. Chronic Kidney Disease: Less than 60 mL/min/1.73 square meters End Stage Renal Disease: Less than 15 mL/min/1.73 square meters Performed By: #### C BC, ADIFF, ANEU, BMP, GFR #### [address] [address] GFR 76 ml/min/1.73sqm Normal [facility] ([place]) Comment on above: Result Comment: GFR Population mean for , Non- Americans Ages 20-29 = 116 mL/min/1.73 sq.m. Ages 30-39 = 107 mL/min/1.73 sq.m. Ages 40-49 = 99 mL/min/1.73 sq.m. Ages 50-59 = 93 mL/min/1.73 sq.m. Ages 60-69 = 85 mL/min/1.73 sq.m. Ages 70+ = 75 mL/min/1.73 sq.m. Chronic Kidney Disease: Less than 60 mL/min/1.73 square meters End Stage Renal Disease: Less than 15 mL/min/1.73 square meters Performed By: #### C BC, ADIFF, ANEU, BMP, GFR #### [address] [address] .NEUABSon 01-18-2020 Neutrophils (Bld) [#/Vol] 10.90 10 3/mcL High 2.85-6.16 [facility] ([place]) Comment on above: Performed By: #### C BC, ADIFF, ANEU, BMP, GFR #### [address] [address] BMPon 01-18-2020 Calcium [Mass/Vol] 9.0 mg/dL Normal 8.4-10.2 [facility] ([place]) Comment on above: Performed By: #### C BC, ADIFF, ANEU, BMP, GFR #### [address] [address] Chloride [Moles/Vol] 102 mmol/L Normal 98-107 [facility] ([place]) Comment on above: Performed By: #### C BC, ADIFF, ANEU, BMP, GFR #### [address] [address] CO2 [Moles/Vol] 28 mmol/L Normal 23-31 [facility] ([place]) Comment on above: Performed By: #### C BC, ADIFF, ANEU, BMP, GFR #### [address] [address] Creatinine [Mass/Vol] 0.89 mg/dL Normal 0.55-1.02 [facility] ([place]) Comment on above: Performed By: #### C BC, ADIFF, ANEU, BMP, GFR #### [address] [address] Electrolyte Balance 1.0 mEq/L Normal [facility] ([place]) Comment on above: Performed By: #### C BC, ADIFF, ANEU, BMP, GFR #### [address] [address] Glucose [Mass/Vol] 102 mg/dL Normal 80-115 [facility] ([place]) Comment on above: Performed By: #### C BC, ADIFF, ANEU, BMP, GFR #### [address] [address] Potassium [Moles/Vol] 5.2 mmol/L High 3.5-5.1 [facility] ([place]) Comment on above: Performed By: #### C BC, ADIFF, ANEU, BMP, GFR #### [address] [address] Sodium [Moles/Vol] 131 mmol/L Low 136-145 [facility] ([place]) Comment on above: Performed By: #### C BC, ADIFF, ANEU, BMP, GFR #### [address] [address] Urea nitrogen [Mass/Vol] 27 mg/dL High 7-18 [facility] ([place]) Comment on above: Performed By: #### C BC, ADIFF, ANEU, BMP, GFR #### [address] [address] Urea nitrogen/Creatinine [Mass ratio] 30 ratio High 7-27 [facility] ([place]) Comment on above: Performed By: #### C BC, ADIFF, ANEU, BMP, GFR #### [address] [address] CBCon 01-18-2020 Erythrocyte distribution width (RBC) [Ratio] 12.5 % Normal 11.5-14.5 [facility] ([place]) Comment on above: Performed By: #### C BC, ADIFF, ANEU, BMP, GFR #### [place] [id number] Hematocrit (Bld) [Volume fraction] 24.3 % Low 37.0-47.0 [facility] ([place]) Comment on above: Performed By: #### C BC, ADIFF, ANEU, BMP, GFR #### [place] [id number] Hemoglobin (Bld) [Mass/Vol] 8.3 G/dL Low 12.0-16.0 [facility] ([place]) Comment on above: Performed By: #### C BC, ADIFF, ANEU, BMP, GFR #### [place] [id number] MCH (RBC) [Entitic mass] 32.6 pg High 27.0-31.2 [facility] ([place]) Comment on above: Performed By: #### C BC, ADIFF, ANEU, BMP, GFR #### [place] [id number] MCHC (RBC) [Mass/Vol] 34.3 G/dL Normal 33.0-37.0 [facility] ([place]) Comment on above: Performed By: #### C BC, ADIFF, ANEU, BMP, GFR #### [address] [address] MCV (RBC) [Entitic vol] 94.9 fL High 80.0-94.0 [facility] ([place]) Comment on above: Performed By: #### C BC, ADIFF, ANEU, BMP, GFR #### [place] [id number] Platelet mean volume (Bld) [Entitic vol] 8.4 fL Normal 7.4-10.4 [facility] ([place]) Comment on above: Performed By: #### C BC, ADIFF, ANEU, BMP, GFR #### [address] [address] Platelets (Bld) [#/Vol] 215 10 3/mcL Normal 130-400 [facility] ([place]) Comment on above: Performed By: #### C BC, ADIFF, ANEU, BMP, GFR #### [address] [address] RBC (Bld) [#/Vol] 2.56 10 6/mcL Low 4.20-5.40 [facility] ([place]) Comment on above: Performed By: #### C BC, ADIFF, ANEU, BMP, GFR #### [address] [address] WBC (Bld) [#/Vol] 13.50 10 3/mcL High 4.60-10.80 [facility] ([place]) Comment on above: Performed By: #### C BC, ADIFF, ANEU, BMP, GFR #### [address] [address] XR HIP LEFT W/PELVIS 4 VIEWS on 01-18-2020 XR HIP LEFT W/PELVIS 4 VIEWS ORIGINAL XR XR HIP LEFT W/PELVIS 3 views CLINICAL STATEMENT: Status Post Arthroplasty , check prosthesis alignment COMPARISON: None FINDINGS: The LEFT hip joint has been replaced with a prosthesis that show satisfactory alignment. There are expected postoperative changes in the soft tissues. There are previous postoperative changes in the lower lumbar spine. IMPRESSION: Expected postoperative appearance following LEFT hip replacement surgery. Interpreted By: Aaron Parnell MD Preliminary Report By: Aaron Parnell MD Electronically Signed By: Aaron Parnell MD Dictated Date: 01/17/2020 11:11:06 PM Prelim Date: 01/17/2020 11:11:06 PM Sign Date: 01/17/2020 11:11:42 PM Ordering Provider:Steve Tomlinson [facility] ([place]) XR FLUORO 1-2 HRS TECH TIMEo n 01-17-2020 XR FLUORO 1-2 HRS TECH TIME ORIGINAL Images acquired, not reported on this accession number. [facility]) .Auto Diffon 01-02-2020 Ammonia (P) [Mass/Vol] 0.50 10 3/mcL Normal 0.15-1.00 [facility] ([place]) Comment on above: Performed By: #### C BC, ADIFF, ANEU, BMP, GFR #### [address] [address] Basophils (Bld) [#/Vol] 0.10 10 3/mcL Normal 0.00-0.19 [facility] ([place]) Comment on above: Performed By: #### C BC, ADIFF, ANEU, BMP, GFR #### [address] [address] Basophils/100 WBC (Bld) 0.7 % Normal 0.0-2.5 [facility] ([place]) Comment on above: Performed By: #### C BC, ADIFF, ANEU, BMP, GFR #### [address] [address] Eosinophils (Bld) [#/Vol] 0.10 10 3/mcL Normal 0.00-0.40 [facility] ([place]) Comment on above: Performed By: #### C BC, ADIFF, ANEU, BMP, GFR #### [address] [address] Eosinophils/100 WBC (Bld) 0.9 % Normal 0.0-7.0 [facility] ([place]) Comment on above: Performed By: #### C BC, ADIFF, ANEU, BMP, GFR #### [address] [address] Lymphocytes (Bld) [#/Vol] 1.90 10 3/mcL Normal 0.77-3.85 [facility] ([place]) Comment on above: Performed By: #### C BC, ADIFF, ANEU, BMP, GFR #### [address] [address] Lymphocytes/100 WBC (Bld) 23.8 % Normal 10.0-50.0 [facility] ([place]) Comment on above: Performed By: #### C BC, ADIFF, ANEU, BMP, GFR #### [address] [address] Monocytes/100 WBC (Bld) 6.9 % Normal 1.7-13.0 [facility] ([place]) Comment on above: Performed By: #### C BC, ADIFF, ANEU, BMP, GFR #### [address] [address] Neutrophils/100 WBC (Bld) 67.7 % Normal 37.0-80.0 [facility] ([place]) Comment on above: Performed By: #### C BC, ADIFF, ANEU, BMP, GFR #### [address] [address] .GFRon 01-02-2020 GFR Non- 58 ml/min/1.73sqm Normal [facility] ([place]) Comment on above: Result Comment: GFR Population mean for , Non- Americans Ages 20-29 = 116 mL/min/1.73 sq.m. Ages 30-39 = 107 mL/min/1.73 sq.m. Ages 40-49 = 99 mL/min/1.73 sq.m. Ages 50-59 = 93 mL/min/1.73 sq.m. Ages 60-69 = 85 mL/min/1.73 sq.m. Ages 70+ = 75 mL/min/1.73 sq.m. Chronic Kidney Disease: Less than 60 mL/min/1.73 square meters End Stage Renal Disease: Less than 15 mL/min/1.73 square meters Performed By: #### C BC, ADIFF, ANEU, BMP, GFR #### [address] [address] GFR 70 ml/min/1.73sqm Normal [facility] ([place]) Comment on above: Result Comment: GFR Population mean for , Non- Americans Ages 20-29 = 116 mL/min/1.73 sq.m. Ages 30-39 = 107 mL/min/1.73 sq.m. Ages 40-49 = 99 mL/min/1.73 sq.m. Ages 50-59 = 93 mL/min/1.73 sq.m. Ages 60-69 = 85 mL/min/1.73 sq.m. Ages 70+ = 75 mL/min/1.73 sq.m. Chronic Kidney Disease: Less than 60 mL/min/1.73 square meters End Stage Renal Disease: Less than 15 mL/min/1.73 square meters Performed By: #### C BC, ADIFF, ANEU, BMP, GFR #### [address] [address] .NEUABSon 01-02-2020 Neutrophils (Bld) [#/Vol] 5.30 10 3/mcL Normal 2.85-6.16 [facility] ([place]) Comment on above: Performed By: #### C BC, ADIFF, ANEU, BMP, GFR #### [place] [id number] BMPon 01-02-2020 Calcium [Mass/Vol] 9.5 mg/dL Normal 8.4-10.2 [facility] ([place]) Comment on above: Performed By: #### C BC, ADIFF, ANEU, BMP, GFR #### [place] [address] Chloride [Moles/Vol] 104 mmol/L Normal 98-107 [facility] ([place]) Comment on above: Performed By: #### C BC, ADIFF, ANEU, BMP, GFR #### [address] [address] CO2 [Moles/Vol] 26 mmol/L Normal 23-31 [facility] ([place]) Comment on above: Performed By: #### C BC, ADIFF, ANEU, BMP, GFR #### [address] [address] Creatinine [Mass/Vol] 0.96 mg/dL Normal 0.55-1.02 [facility] ([place]) Comment on above: Performed By: #### C BC, ADIFF, ANEU, BMP, GFR #### [address] [address] Electrolyte Balance 8.0 mEq/L Normal [facility] ([place]) Comment on above: Performed By: #### C BC, ADIFF, ANEU, BMP, GFR #### [address] [address] Glucose [Mass/Vol] 85 mg/dL Normal 80-115 [facility] ([place]) Comment on above: Performed By: #### C BC, ADIFF, ANEU, BMP, GFR #### [address] [address] Potassium [Moles/Vol] 4.5 mmol/L Normal 3.5-5.1 [facility] ([place]) Comment on above: Performed By: #### C BC, ADIFF, ANEU, BMP, GFR #### [address] [address] Sodium [Moles/Vol] 138 mmol/L Normal 136-145 [facility] ([place]) Comment on above: Performed By: #### C BC, ADIFF, ANEU, BMP, GFR #### [address] [address] Urea nitrogen [Mass/Vol] 28 mg/dL High 7-18 [facility] ([place]) Comment on above: Performed By: #### C BC, ADIFF, ANEU, BMP, GFR #### [address] [address] Urea nitrogen/Creatinine [Mass ratio] 29 ratio High 7-27 [facility] ([place]) Comment on above: Performed By: #### C BC, ADIFF, ANEU, BMP, GFR #### [address] [address] CBCon 01-02-2020 Erythrocyte distribution width (RBC) [Ratio] 13.0 % Normal 11.5-14.5 [facility]) Comment on above: Order Comment: Pre-A dmission Testing Performed By: #### C BC, ADIFF, ANEU, BMP, GFR #### [address] [address] Hematocrit (Bld) [Volume fraction] 30.5 % Low 37.0-47.0 [facility] ([place]) Comment on above: Order Comment: Pre-A dmission Testing Performed By: #### C BC, ADIFF, ANEU, BMP, GFR #### [address] [address] Hemoglobin (Bld) [Mass/Vol] 10.7 G/dL Low 12.0-16.0 [facility] ([place]) Comment on above: Order Comment: Pre-A dmission Testing Performed By: #### C BC, ADIFF, ANEU, BMP, GFR #### [address] [address] MCH (RBC) [Entitic mass] 33.4 pg High 27.0-31.2 [facility] ([place]) Comment on above: Order Comment: Pre-A dmission Testing Performed By: #### C BC, ADIFF, ANEU, BMP, GFR #### [address] [address] MCHC (RBC) [Mass/Vol] 35.1 G/dL Normal 33.0-37.0 [facility] ([place]) Comment on above: Order Comment: Pre-A dmission Testing Performed By: #### C BC, ADIFF, ANEU, BMP, GFR #### [address] [address] MCV (RBC) [Entitic vol] 95.1 fL High 80.0-94.0 [facility] ([place]) Comment on above: Order Comment: Pre-A dmission Testing Performed By: #### C BC, ADIFF, ANEU, BMP, GFR #### [address] [address] Platelet mean volume (Bld) [Entitic vol] 8.8 fL Normal 7.4-10.4 [facility] ([place]) Comment on above: Order Comment: Pre-A dmission Testing Performed By: #### C BC, ADIFF, ANEU, BMP, GFR #### [address] [address] Platelets (Bld) [#/Vol] 287 10 3/mcL Normal 130-400 [facility] ([place]) Comment on above: Order Comment: Pre-A dmission Testing Performed By: #### C BC, ADIFF, ANEU, BMP, GFR #### [place] [address] [place], [place] [address] RBC (Bld) [#/Vol] 3.20 10 6/mcL Low 4.20-5.40 [facility] ([place]) Comment on above: Order Comment: Pre-A dmission Testing Performed By: #### C BC, ADIFF, ANEU, BMP, GFR #### [place] [address] [place], [place] [address] WBC (Bld) [#/Vol] 7.80 10 3/mcL Normal 4.60-10.80 [facility] ([place]) Comment on above: Order Comment: Pre-A dmission Testing Performed By: #### C BC, ADIFF, ANEU, BMP, GFR #### [place] [address] [place], [place] [address] Clinical Summary: HMSPatient IDon 2017 OOP Invalid Interpretation Code [facility] Work Phone: Office Visit: Postop - subse quent visit, Rm: 2017 NEGATED: Highlighted rowDocumentation of current medications (procedure) Done Invalid Interpretation Code [facility] Work Phone: NEGATED: Highlighted rowMRI (magnetic resonance imaging) history of the Lumbar spine on 05/22/2017 at [facility] Invalid Interpretation Code [facility] Work Phone: NEGATED: Highlighted rowTobacco smoking status NHIS Tobacco smoking status NHIS Invalid Interpretation Code [facility] Work Phone: NEGATED: Highlighted rowxray history of the Lumbar spine on 05/14/2017 at [facility] Invalid Interpretation Code [facility] Work Phone: Office Visit: Spine Visiton 01-13-2017 Documentation of current medications (procedure) Done Invalid Interpretation Code [facility] Work Phone: Tobacco smoking status NHIS Unknown Invalid Interpretation Code [facility] Work Phone: Tobacco use CPHS Former smoker Invalid Interpretation Code [facility] Work Phone: Office Visiton 11-11-2016 Documentation of current medications (procedure) Done Invalid Interpretation Code [facility] Work Phone: Tobacco smoking status NHIS Unknown Invalid Interpretation Code [facility] Work Phone: Tobacco use CP Former smoker Invalid Interpretation Code [facility] Work Phone: Office Visit: Spine Visiton 10-14-2016 Documentation of current medications (procedure) Done Invalid Interpretation Code [employer] Work Phone: Protein mass conc Done [facility] Work Phone: Tobacco smoking status NHIS Unknown Invalid Interpretation Code [facility] Work Phone: Tobacco smoking status NHIS Former smoker [facility] Work Phone: Tobacco use CP Former smoker Invalid Interpretation Code [employer] Work Phone: Office Visit: Spine Visiton 07-07-2016 Documentation of current medications (procedure) Done Invalid Interpretation Code [facility] Work Phone: Tobacco smoking status NHIS Unknown Invalid Interpretation Code [facility] Work Phone: Tobacco use CP Former smoker Invalid Interpretation Code [facility] Work Phone: Vital Signs Date Time Vital Sign Value Performing Clinician Facility 10-27-2023 10:42-0400 Body height 147.3 cm Leslie Monet MD Work Phone: [facility] 10-27-2023 10:42-0400 Body mass index (BMI) [Ratio] 21.2 kg/m2 Leslie Monet MD Work Phone: [facility] 10-27-2023 10:42-0400 Body weight 46 kg Leslie Monet MD Work Phone: [facility] 10-27-2023 10:42-0400 Diastolic blood pressure 78 mm[Hg] Leslie Monet MD Work Phone: [facility] 10-27-2023 10:42-0400 Heart rate 94 /min Leslie Monet MD Work Phone: [facility] 10-27-2023 10:42-0400 Respiratory rate 16 /min Leslie Monet MD Work Phone: [facility] 10-27-2023 10:42-0400 SaO2% (BldA) [Mass fraction] 99 % Leslie Monet MD Work Phone: [facility] 10-27-2023 10:42-0400 Systolic blood pressure 130 mm[Hg] Leslie Monet MD Work Phone: [facility] 09-29-2023 09:58-0400 Body mass index (BMI) [Ratio] 21.21 kg/m2 Wisam Mills MD Work Phone: [facility] 09-29-2023 09:58-0400 Body temperature 97.3 [degF] Wisam Mills MD Work Phone: [facility] 09-29-2023 09:58-0400 Body weight 46.04 kg Wisam Mills MD Work Phone: [facility] 09-29-2023 09:58-0400 Diastolic blood pressure 76 mm[Hg] Wisam Mills MD Work Phone: [facility] 09-29-2023 09:58-0400 Heart rate 96 /min Wisam Mills MD Work Phone: [facility] 09-29-2023 09:58-0400 SaO2% (BldA) [Mass fraction] 98 % Wisam Mills MD Work Phone: [facility] 09-29-2023 09:58-0400 Systolic blood pressure 122 mm[Hg] Wisam Mills MD Work Phone: [facility] 09-21-2023 10:25-0400 Body mass index (BMI) [Ratio] 20.78 kg/m2 Jamie Bull MD Work Phone: [facility] 09-21-2023 10:25-0400 Body weight 45.1 kg Jamie Bull MD Work Phone: [facility] 09-21-2023 10:25-0400 Diastolic blood pressure 83 mm[Hg] Jamie Bull MD Work Phone: [facility] 09-21-2023 10:25-0400 Heart rate 98 /min Jamie Bull MD Work Phone: [facility] 09-21-2023 10:25-0400 SaO2% (BldA) [Mass fraction] 98 % Jamie Bull MD Work Phone: [facility] 09-21-2023 10:25-0400 Systolic blood pressure 123 mm[Hg] Jamie Bull MD Work Phone: [facility] 03-24-2023 10:29-0500 Body temperature 97.5 [degF] Wisam Mills MD Work Phone: [facility] 03-24-2023 10:29-0500 Body weight 44.23 kg Wisam Mills MD Work Phone: [facility] 03-24-2023 10:29-0500 Diastolic blood pressure 81 mm[Hg] Wisam Mills MD Work Phone: [facility] 03-24-2023 10:29-0500 Heart rate 102 /min Wisam Mills MD Work Phone: [facility] 03-24-2023 10:29-0500 SaO2% (BldA) [Mass fraction] 98 % Wisam Mills MD Work Phone: [facility] 03-24-2023 10:29-0500 Systolic blood pressure 132 mm[Hg] Wisam Mills MD Work Phone: [facility] 03-23-2023 09:21-0500 Body height 147.3 cm Jamie Bull MD Work Phone: [facility] 03-23-2023 09:21-0500 Diastolic blood pressure 75 mm[Hg] Jamie Bull MD Work Phone: [facility] 03-23-2023 09:21-0500 Heart rate 79 /min Jamie Bull MD Work Phone: [facility] 03-23-2023 09:21-0500 SaO2% (BldA) [Mass fraction] 98 % Jamie Bull MD Work Phone: [facility] 03-23-2023 09:21-0500 Systolic blood pressure 116 mm[Hg] Jamie Bull MD Work Phone: [facility] 02-25-2023 09:59-0400 Body height 147.3 cm Wisam Mills MD Work Phone: [facility] 02-25-2023 09:59-0400 Body temperature 98.01 [degF] Wisam Mills MD Work Phone: [facility] 02-25-2023 09:59-0400 Body weight 44 kg Wisam Mills MD Work Phone: [facility] 02-25-2023 09:59-0400 Diastolic blood pressure 74 mm[Hg] Wisam Mills MD Work Phone: [facility] 02-25-2023 09:59-0400 Heart rate 68 /min Wisam Mills MD Work Phone: [facility] 02-25-2023 09:59-0400 SaO2% (BldA) [Mass fraction] 99 % Wisam Mills MD Work Phone: [facility] 02-25-2023 09:59-0400 Systolic blood pressure 114 mm[Hg] Wisam Mills MD Work Phone: [facility] 01-19-2023 10:00-0400 Body weight 43.5 kg Jamie Bull MD Work Phone: [facility] 01-19-2023 10:00-0400 Diastolic blood pressure 75 mm[Hg] Jamie Bull MD Work Phone: [facility] 01-19-2023 10:00-0400 Heart rate 89 /min Jamie Bull MD Work Phone: [facility] 01-19-2023 10:00-0400 SaO2% (BldA) [Mass fraction] 99 % Jamie Bull MD Work Phone: [facility] 01-19-2023 10:00-0400 Systolic blood pressure 137 mm[Hg] Jamie Bull MD Work Phone: [facility] 10-20-2022 08:20-0400 Body height 144.8 cm Jamie Bull MD Work Phone: [facility] 10-20-2022 08:20-0400 Body weight 48.26 kg Jamie Bull MD Work Phone: [facility] 10-20-2022 08:20-0400 Diastolic blood pressure 78 mm[Hg] Jamie Bull MD Work Phone: [facility] 10-20-2022 08:20-0400 Heart rate 83 /min Jamie Bull MD Work Phone: [facility] 10-20-2022 08:20-0400 SaO2% (BldA) [Mass fraction] 97 % Jamie Bull MD Work Phone: [facility] 10-20-2022 08:20-0400 Systolic blood pressure 122 mm[Hg] Jamie Bull MD Work Phone: [facility] 09-10-2022 10:40-0400 Body height 144.8 cm Leslie Monet MD Work Phone: [facility] 09-10-2022 10:40-0400 Body weight 47.63 kg Leslie Monet MD Work Phone: [facility] 09-10-2022 10:40-0400 Diastolic blood pressure 71 mm[Hg] Leslie Monet MD Work Phone: [facility] 09-10-2022 10:40-0400 Heart rate 77 /min Leslie Monet MD Work Phone: [facility] 09-10-2022 10:40-0400 SaO2% (BldA) [Mass fraction] 97 % Leslie Monet MD Work Phone: [facility] 09-10-2022 10:40-0400 Systolic blood pressure 115 mm[Hg] Leslie Monet MD Work Phone: [facility] 08-26-2022 11:12-0400 Body temperature 98.01 [degF] Wisam Mills MD Work Phone: [facility] 08-26-2022 11:12-0400 Body weight 48.44 kg Wisam Mills MD Work Phone: [facility] 08-26-2022 11:12-0400 Diastolic blood pressure 80 mm[Hg] Wisam Mills MD Work Phone: [facility] 08-26-2022 11:12-0400 Heart rate 81 /min Wisam Mills MD Work Phone: [facility] 08-26-2022 11:12-0400 Respiratory rate 18 /min Wisam Mills MD Work Phone: [facility] 08-26-2022 11:12-0400 SaO2% (BldA) [Mass fraction] 98 % Wisam Mills MD Work Phone: [facility] 08-26-2022 11:12-0400 Systolic blood pressure 135 mm[Hg] Wisam Mills MD Work Phone: [facility] 07-23-2022 10:45-0400 Body height 144.8 cm Leslie Monet MD Work Phone: [facility] 07-23-2022 10:45-0400 Body weight 49.44 kg Leslie Monet MD Work Phone: [facility] 07-23-2022 10:45-0400 Diastolic blood pressure 89 mm[Hg] Leslie Monet MD Work Phone: [facility] 07-23-2022 10:45-0400 Heart rate 91 /min Leslie Monet MD Work Phone: [facility] 07-23-2022 10:45-0400 SaO2% (BldA) [Mass fraction] 96 % Leslie Monet MD Work Phone: [facility] 07-23-2022 10:45-0400 Systolic blood pressure 147 mm[Hg] Leslie Monet MD Work Phone: [facility] 06-23-2022 14:11-0500 Body height 147.3 cm Jamie Bull MD Work Phone: [facility] 06-23-2022 14:11-0500 Body weight 50.12 kg Jamie Bull MD Work Phone: [facility] 06-23-2022 14:11-0500 Diastolic blood pressure 85 mm[Hg] Jamie Bull MD Work Phone: [facility] 06-23-2022 14:11-0500 Heart rate 104 /min Jamie Bull MD Work Phone: [facility] 06-23-2022 14:11-0500 SaO2% (BldA) [Mass fraction] 99 % Jamie Bull MD Work Phone: [facility] 06-23-2022 14:11-0500 Systolic blood pressure 130 mm[Hg] Jamie Bull MD Work Phone: [facility] 06-04-2022 12:52-0500 Body height 147.3 cm Adrián Pulido PA-C Work Phone: [facility] 06-04-2022 12:52-0500 Body weight 47.63 kg Adrián Pulido PA-C Work Phone: [facility] 06-04-2022 12:52-0500 Diastolic blood pressure 70 mm[Hg] Adrián Pulido PA-C Work Phone: [facility] 06-04-2022 12:52-0500 Heart rate 93 /min Adrián Pulido PA-C Work Phone: [facility] 06-04-2022 12:52-0500 SaO2% (BldA) [Mass fraction] 98 % Adrián Pulido PA-C Work Phone: [facility] 06-04-2022 12:52-0500 Systolic blood pressure 120 mm[Hg] Adrián Pulido PA-C Work Phone: [facility] 04-17-2022 09:11-0500 Body height 147.3 cm Adrián Pulido PA-C Work Phone: [facility] 04-17-2022 09:11-0500 Body weight 48.81 kg Adrián Pulido PA-C Work Phone: [facility] 04-17-2022 09:11-0500 Diastolic blood pressure 68 mm[Hg] Adrián Pulido PA-C Work Phone: [facility] 04-17-2022 09:11-0500 Heart rate 79 /min Adrián Pulido PA-C Work Phone: [facility] 04-17-2022 09:11-0500 SaO2% (BldA) [Mass fraction] 97 % Adrián Pulido PA-C Work Phone: [facility] 04-17-2022 09:11-0500 Systolic blood pressure 120 mm[Hg] Adrián Pulido PA-C Work Phone: [facility] 02-07-2022 10:27-0400 Body weight 46.72 kg Mayur Cao MD Work Phone: [facility] 02-07-2022 10:27-0400 Diastolic blood pressure 85 mm[Hg] Mayur Cao MD Work Phone: [facility] 02-07-2022 10:27-0400 Heart rate 84 /min Mayur Cao MD Work Phone: [facility] 02-07-2022 10:27-0400 Systolic blood pressure 141 mm[Hg] Mayur Cao MD Work Phone: [facility] 07-07-2016 09:59-0500 BMI (Body Mass Index) 18.3 kg/m2 [facility] Work Phone: 07-07-2016 09:59-0500 Height 165.1 cm [facility] Work Phone: 07-07-2016 09:59-0500 Weight 49.9 kg [facility] Work Phone: NEGATED: Highlighted [id number] 12:04-0400 BMI (Body Mass Index) 21.56 kg/m2 Marleni Chirinos RN [facility] Work Phone: NEGATED: Highlighted [id number] 12:04-0400 BP Diastolic 83 mm[Hg] Marleni Chirinos RN [facility] Work Phone: NEGATED: Highlighted [id number] 12:04-0400 BP Systolic 126 mm[Hg] Marleni Chirinos RN [facility] Work Phone: NEGATED: Highlighted [id number] 12:04-0400 Height 152.4 cm Marleni Chirinos RN [facility] Work Phone: NEGATED: Highlighted [id number] 12:04-0400 Height 152 cm Marleni Chirinos RN [facility] Work Phone: NEGATED: Highlighted [id number] 12:04-0400 Pulse (Heart Rate) 65 /min Marleni Chirinos RN [facility] Work Phone: NEGATED: Highlighted [id number] 12: Weight 49.9 kg Marleni Chirinos RN [facility] Work Phone: NEGATED: Highlighted [id number] 12: Weight 50 kg Marleni Chirinos RN [facility] Work Phone: Encounters Encounter Date Encounter Type Care Provider Facility Start: 12-16-2023 ambulatory Leslie Monet MD Work Phone: Endocrinology Comment on above: Vitamin D Start: 12-16-2023 E-mail encounter fro m caregiver Leslie Monet MD Work Phone: Endocrinology Start: 12-15-2023 Telephone encounter Leslie Cardozo i, MD Work Phone: Endocrinology Comment on above: Results Start: 12-15-2023 End: 12-15-2023 ambulatory MIKE HOPPER Facility:[facility] Start: 12-15-2023 End: 12-15-2023 Patient encounter procedure Nurse Ari Yuen Mc Work Phone: Endocrinology Comment on above: Age-related osteopor osis with current pathological fracture with routine healing, subsequent encounter (Primary Dx) Start: 12-14-2023 Telephone encounter Miley Nelson MD Work Phone: Endocrinology Comment on above: CAM Order Request Start: 11-02-2023 End: 11-02-2023 ambulatory MIKE HOPPER Facility:[facility] Start: 10-30-2023 Telephone encounter Leslie Cardozo i, MD Work Phone: Endocrinology Comment on above: CAM Order Start: 10-27-2023 Telephone encounter Leslie Cardozo i, MD Work Phone: Endocrinology Comment on above: Orders Start: 10-27-2023 End: 10-27-2023 ambulatory LESLIE MONET Facility:[facility] Start: 10-27-2023 End: 10-27-2023 Patient encounter procedure Leslie Monet MD Work Phone: Endocrinology Comment on above: Age-related osteopor osis with current pathological fracture with routine healing, subsequent encounter (Primary Dx); Hyperparathyroidism (HCC) Start: 10-20-2023 End: 10-20-2023 ambulatory EDGARDO NOONAN MD [facility] Start: 10-01-2023 End: 10-01-2023 ambulatory MIKE Carmencita HERRERAWILL Facility:[facility] Start: 10-01-2023 End: 10-01-2023 Patient encounter procedure Nurse Ari Yuen Mc Work Phone: Endocrinology Comment on above: Age-related osteopor osis with current pathological fracture with routine healing, subsequent encounter (Primary Dx) Start: 09-29-2023 End: 09-29-2023 ambulatory Wisam Mills MD Work Phone: Hematology/Oncology Comment on above: Anemia, unspecified type (Primary Dx) Start: 09-29-2023 End: 09-29-2023 Patient encounter procedure Wisam Mills MD Work Phone: Hematology/Oncology Start: 09-21-2023 End: 09-22-2023 ambulatory UNKNOWN PROVIDER Facility:[facility] Start: 09-21-2023 End: 09-21-2023 ambulatory MIKE Carmencita WILL Facility:[facility] Start: 09-21-2023 End: 09-21-2023 Patient encounter procedure Jamie Bull MD Work Phone: [facility] Comment on above: Cervical spondylosis without myelopathy (Primary Dx) Start: 08-31-2023 End: 08-31-2023 ambulatory MIKE HOPPER Facility:[facility] Start: 08-31-2023 End: 08-31-2023 Patient encounter procedure Nurse Ari Yuen Mc Work Phone: Endocrinology Comment on above: Age-related osteopor osis with current pathological fracture with routine healing, subsequent encounter (Primary Dx) Start: 07-22-2023 Telephone encounter Leslie Cardozo i, MD Work Phone: Endocrinology Comment on above: Outside Lab Results (Dexa scan 2022) Start: 07-17-2023 Telephone encounter Leslie Cardozo i, MD Work Phone: Endocrinology Start: 06-29-2023 End: 06-29-2023 ambulatory MIKE HOPPER Facility:[facility] Start: 05-27-2023 End: 05-27-2023 ambulatory MIKE HOPPER Facility:[facility] Start: 04-22-2023 End: 04-22-2023 ambulatory MIKE HOPPER Facility:[facility] Start: 04-22-2023 End: 04-22-2023 Patient encounter procedure Nurse Ari Yuen Mc Work Phone: Endocrinology Comment on above: Age-related osteopor osis with current pathological fracture with routine healing, subsequent encounter (Primary Dx) Start: 03-24-2023 End: 03-24-2023 ambulatory Wisam Mills MD Work Phone: Hematology/Oncology Comment on above: 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) Start: 03-24-2023 End: 03-24-2023 Patient encounter procedure Wisam Mills MD Work Phone: [facility] Start: 03-23-2023 End: 03-23-2023 ambulatory MIKE HOPPER Facility:[facility] Start: 03-23-2023 End: 03-23-2023 Patient encounter procedure Nurse Ari Yuen Mc Work Phone: Endocrinology Comment on above: Age-related osteopor osis with current pathological fracture with routine healing, subsequent encounter (Primary Dx) Closed stable burst fracture of third thoracic vertebra with routine healing, subsequent encounter (Primary Dx) Start: 03-13-2023 End: 03-13-2023 ambulatory MIKE HOPPER Facility:[facility] Start: 03-13-2023 End: 03-13-2023 Subsequent hospital visit by physician Ct Prep [facility] Comment on above: 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] Start: 02-25-2023 End: 02-25-2023 ambulatory Wisam Mills MD Work Phone: Hematology/Oncology Comment on above: 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) Start: 02-25-2023 End: 02-25-2023 Patient encounter procedure Wisam Mills MD Work Phone: [facility] Start: 02-18-2023 End: 02-18-2023 Patient encounter procedure Nurse Ari Yuen Mc Work Phone: Endocrinology Comment on above: Age-related osteopor osis with current pathological fracture with routine healing, subsequent encounter (Primary Dx) Start: 02-18-2023 End: 02-18-2023 ambulatory [facility] Facility:[facility] Start: 01-23-2023 Telephone encounter Mike Hopper DO Work Phone: [facility] Start: 01-23-2023 End: 01-23-2023 ambulatory [facility] Facility:[facility] Start: 01-19-2023 End: 01-19-2023 [facility] Facility:[facility] Start: 01-19-2023 End: 01-19-2023 Patient encounter procedure Jamie Bull MD Work Phone: [facility] Comment on above: Closed stable burst fracture of third thoracic vertebra with routine healing, subsequent encounter (Primary Dx); Spinal stenosis of cervical region; Arthrodesis status Start: 01-19-2023 End: 01-19-2023 [facility] Facility:[facility] Start: 01-19-2023 End: 01-19-2023 Patient encounter procedure Nurse Ari Yuen Mc Work Phone: Endocrinology Comment on above: Age-related osteopor osis with current pathological fracture with routine healing, subsequent encounter (Primary Dx) Start: 12-16-2022 E-mail encounter fro m caregiver [facility] EMMY YUEN MC Start: 12-16-2022 Patient encounter procedure [facility] Endocrinology Comment on above: [facility] Injection Mi ssed Appointment Start: 12-16-2022 Telephone encounter Leslie Cardozo i, MD Work Phone: Endocrinology Comment on above: Appointment Start: 11-27-2022 ambulatory [facility] Facility: [facility] Start: 11-13-2022 End: 11-13-2022 Patient encounter procedure Nurse Ari Yuen Mc Work Phone: Endocrinology Comment on above: Age-related osteopor osis with current pathological fracture with routine healing, subsequent encounter (Primary Dx) Start: 10-24-2022 Telephone encounter Jamie guillen MD Work Phone: Neurology Comment on above: Xray Results Start: 10-20-2022 ambulatory UNKNOWN PROVIDER Facili ty:[facility] Start: 10-20-2022 End: 10-20-2022 Subsequent hospital visit by physician Radio [facility] Work Phone: Radiology Comment on above: Closed stable burst fracture of third thoracic vertebra with routine healing, subsequent encounter [S22.031D] Start: 10-20-2022 End: 10-20-2022 Patient encounter procedure Jamie Bull MD Work Phone: [facility] Comment on above: Closed stable burst fracture of third thoracic vertebra with routine healing, subsequent encounter (Primary Dx) Start: 09-10-2022 End: 09-10-2022 Patient encounter procedure Nurse Ari 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); Age-related osteoporosis with current pathological fracture with routine healing, subsequent encounter; Abnormal SPEP Start: 08-26-2022 End: 08-26-2022 Patient encounter procedure Wisam Mills MD Work Phone: [facility] Start: 08-05-2022 Orders Only Leslie Monet MD Work Phone: Endocrinology Comment on above: Abnormal SPEP (Prima ry Dx); Age-related osteoporosis with current pathological fracture with routine healing, subsequent encounter Results Start: 07-31-2022 End: 07-31-2022 Subsequent hospital visit by physician Robert [facility] Work Phone: Radiology Comment on above: Age-related osteopor osis with current pathological fracture with routine healing, subsequent encounter [M80.00XD] Start: 07-23-2022 End: 07-23-2022 Patient encounter procedure Leslie Monet MD Work Phone: Endocrinology Comment on above: Vitamin D deficiency (Primary Dx); Age-related osteoporosis with current pathological fracture with routine healing, subsequent encounter; Disorder of bone density and structure, unspecified ; Abnormal findings on diagnostic imaging of other specified body structures Start: 06-24-2022 ambulatory Jamie Bull MD Work Phone: [facility] Comment on above: Endocrinology Start: 06-23-2022 End: 06-23-2022 Patient encounter procedure Jamie Bull MD Work Phone: [facility] Comment on above: Age-related osteopor osis with current pathological fracture with routine healing, subsequent encounter (Primary Dx); Fusion of spine of cervicothoracic region; Arthrodesis status; Adverse effect of treatment, initial encounter; Closed stable burst fracture of third thoracic vertebra with routine healing, subsequent encounter; Age-related osteoporosis with current pathological fracture, vertebra(e), initial encounter for fracture (HCC) Start: 06-04-2022 End: 06-04-2022 Patient encounter procedure Adrián Pulido PA-C Work Phone: [facility] Comment on above: Fusion of spine of c ervicothoracic region (Primary Dx); Arthrodesis status; Adverse effect of treatment, initial encounter; Closed stable burst fracture of third thoracic vertebra with routine healing, subsequent encounter Start: 05-31-2022 ambulatory ADRIÁN Quiros lity:[phone] Start: 05-31-2022 End: 05-31-2022 Subsequent hospital visit by physician [facility] Work Phone: [facility] Comment on above: Arthrodesis status [ Z98.1] Cervicalgia [M54.2] Start: 04-17-2022 End: 04-17-2022 Subsequent hospital visit by physician Radio [facility] Beth Gallegos Work Phone: Radiology Comment on above: Cervicalgia [M54.2] Start: 04-17-2022 End: 04-17-2022 Patient encounter procedure Adrián Pulido PA-C Work Phone: [facility] Comment on above: Cervicalgia (Primary Dx); Arthrodesis status; Adverse effect of treatment, initial encounter Start: 03-13-2022 ambulatory Mayur holt MD Work Phone: Neurology Comment on above: Pain in arm and shou lder from pinched nerve. Start: 03-03-2022 Telephone encounter Mayur Cao MD Work Phone: Neurology Comment on above: Medication Problem Start: 02-28-2022 End: 02-28-2022 ambulatory Emg 850) Neurology Comment on above: EMG Start: 02-28-2022 End: 02-28-2022 Patient encounter procedure Emg 1 Neur Yadira (Max Weight: 850) YADIRA Start: 02-27-2022 Telephone encounter Mayur Cao MD Work Phone: Neurology Comment on above: [facility] (Surgery clearance) Start: 02-07-2022 End: 02-07-2022 Patient encounter procedure Mayur Cao MD Work Phone: Neurology Comment on above: Radiculopathy, cervi hung region (Primary Dx) Start: 01-09-2022 Telephone encounter Mayur Cao MD Work Phone: Neurology Comment on above: Appointment Start: 2017 End: 2017 Patient encounter procedure Jordan Sidhu MD Work Phone: [facility] Work Phone: Procedures Date Procedure Procedure Detail Performing Clinician Start: 12-01-2023 VITAMIN D 25 HYDROXY Ca jorje العراقي CNP Work Phone: Start: 10-20-2022 Radex shoulder compl ete minimum 2 views Jamie Bull MD Work Phone: Start: 07-31-2022 Radex spine lumbosac ral 2/3 views Hasan Husni MD Work Phone: Start: 05-31-2022 Mri spinal canal tho racic w/o & w/contr matrl Adrián Pulido PA-C Work Phone: Start: 04-17-2022 Radex spine cervical 4 or 5 views Adrián Pulido PA-C Work Phone: Start: 02-28-2022 [...] DTaP,Tdap,Td Vaccine (2 - Td or Tdap) [facility] Start: 09-20-2026 Diabetes Screening Diabetes Screening [facility] Start: 02-25-2026 Diabetes Screening Diabetes Screening [facility] Start: 07-29-2025 DIABETES SCREEN DIABETES SCREEN [facility] Start: 07-29-2025 Diabetes Screening Diabetes Screening [facility] Start: 09-01-2024 End: 12-01-2024 25-hydroxyvitamin D3 [Mass/volume] in Serum or Plasma VITAMIN D 25 HYDROXY Lab Routine Age-related osteoporosis with current pathological fracture with routine healing, subsequent encounter Hyperparathyroidism (HCC) Expected: 09/01/2024 (Approximate), Expires: 12/01/2024 [facility] Work Phone: Comment on above: Expected: 09/01/2024 (Approximate), Expi res: 12/01/2024 Start: 09-01-2024 End: 12-01-2024 Albumin [Mass/volume] in Serum or Plasma ALBUMIN Lab Routine Age-related osteoporosis with current pathological fracture with routine healing, subsequent encounter Hyperparathyroidism (HCC) Expected: 09/01/2024 (Approximate), Expires: 12/01/2024 [facility] Comment on above: Expected: 09/01/2024 (Approximate), Expi res: 12/01/2024 Start: 09-01-2024 End: 11-25-2024 BD DXA TRABECULAR BONE SCORE (TBS) BD DXA TRABECULAR BONE SCORE (TBS) Radiology Routine Age-related osteoporosis with current pathological fracture with routine healing, subsequent encounter Hyperparathyroidism (HCC) Expected: 09/01/2024 (Approximate), Expires: 11/25/2024 [facility] Comment on above: Expected: 09/01/2024 (Approximate), Expi res: 11/25/2024 Start: 09-01-2024 End: 12-01-2024 Calcium [Mass/volume] in Serum or Plasma CALCIUM, TOTAL Lab Routine Age-related osteoporosis with current pathological fracture with routine healing, subsequent encounter Hyperparathyroidism (HCC) Expected: 09/01/2024 (Approximate), Expires: 12/01/2024 [facility] Comment on above: Expected: 09/01/2024 (Approximate), Expi res: 12/01/2024 Start: 09-01-2024 End: 12-01-2024 Calcium.ionized [Moles/volume] in Blood CALCIUM, IONIZED Lab Routine Age-related osteoporosis with current pathological fracture with routine healing, subsequent encounter Hyperparathyroidism (HCC) Expected: 09/01/2024 (Approximate), Expires: 12/01/2024 [facility] Comment on above: Expected: 09/01/2024 (Approximate), Expi res: 12/01/2024 Start: 09-01-2024 End: 12-01-2024 Creatinine and Glomerular filtration rate.predicted panel - Serum, Plasma or Blood GFR ESTIMATED Lab Routine Age-related osteoporosis with current pathological fracture with routine healing, subsequent encounter Hyperparathyroidism (HCC) Expected: 09/01/2024 (Approximate), Expires: 12/01/2024 [facility] Comment on above: Expected: 09/01/2024 (Approximate), Expi res: 12/01/2024 Start: 09-01-2024 End: 12-01-2024 CREATININE BLD CREATININE BLD Lab Routine Age-related osteoporosis with current pathological fracture with routine healing, subsequent encounter Hyperparathyroidism (HCC) Expected: 09/01/2024 (Approximate), Expires: 12/01/2024 [facility] Comment on above: Expected: 09/01/2024 (Approximate), Expi res: 12/01/2024 Start: 09-01-2024 End: 11-25-2024 DXA Skeletal system.axial Views for bone density DXA-AXIAL SKELETON Radiology Routine Age-related osteoporosis with current pathological fracture with routine healing, subsequent encounter Hyperparathyroidism (HCC) Expected: 09/01/2024 (Approximate), Expires: 11/25/2024 [facility] Comment on above: Expected: 09/01/2024 (Approximate), Expi res: 11/25/2024 Start: 09-01-2024 End: 12-01-2024 Parathyrin.intact [Mass/volume] in Serum or Plasma PTH INTACT Lab Routine Age-related osteoporosis with current pathological fracture with routine healing, subsequent encounter Hyperparathyroidism (HCC) Expected: 09/01/2024 (Approximate), Expires: 12/01/2024 [facility] Comment on above: Expected: 09/01/2024 (Approximate), Expi res: 12/01/2024 Start: 06-16-2024 End: 06-16-2024 Patient encounter procedure 06/16/2024 10:00 AM EST Office Visit Endocrinology [address] [address] [facility] Comment on above: [facility] Start: 04-01-2024 End: 04-01-2024 ambulatory 04/01/2024 10:10 AM EST Visit (SP) Office Hematology/Oncology [address] [place] [address] [place] [address] [place] [address] 6 Mo OV /monoclonal gammopathy labs Hematology/Oncology Comment on above: 6 Mo OV /monoclonal gammopathy labs Start: 03-13-2024 Influenza vaccination Lung Cancer Screening [facility] Start: 03-13-2024 Screening for malignant neoplasm of lung Lung Cancer Screening [facility] Start: 01-03-2024 Influenza vaccination [facility] Start: 12-15-2023 End: 12-15-2023 Patient encounter procedure 12/15/2023 10:00 AM EDT Office Visit Endocrinology [address] [address] [facility] Comment on above: [facility]st [facility] Start: 11-02-2023 End: 11-02-2023 Patient encounter procedure 11/02/2023 10:00 AM EDT Office Visit Endocrinology [address] [address] [facility] Comment on above: [facility] Start: 10-27-2023 End: 10-27-2023 Patient encounter procedure 10/27/2023 10:40 AM EDT Office Visit Endocrinology [address] [address] Leslie Monet MD [address] [place] [address] Follow up-new slot ok per cynthia Endocrinology Comment on above: Follow up-new slot ok per cynthia Start: 10-01-2023 End: 10-01-2023 Patient encounter procedure 10/01/2023 10:00 AM EDT Office Visit Endocrinology [address] [address] [facility] Start: 09-30-2023 End: 09-30-2023 Patient encounter procedure 09/30/2023 10:00 AM EDT Office Visit Endocrinology [address] [address] [facility] Start: 09-29-2023 End: 09-28-2024 Cobalamin (Vitamin B12) [Mass/volume] in Serum or Plasma VITAMIN B12 Lab Routine Anemia, unspecified type Expected: 09/29/2023, Expires: 09/28/2024 [facility] Comment on above: Expected: 09/29/2023, Expires: Start: 09-29-2023 End: 09-28-2024 Ferritin [Mass/volume] in Serum or Plasma FERRITIN Lab Routine Anemia, unspecified type Expected: 09/29/2023, Expires: 09/28/2024 [facility] Comment on above: Expected: 09/29/2023, Expires: Start: 09-29-2023 End: 12-29-2023 Folate [Mass/volume] in Serum or Plasma FOLATE, SERUM Lab Routine Anemia, unspecified type Expected: 09/29/2023, Expires: 12/29/2023 [facility] Comment on above: Expected: 09/29/2023, Expires: Start: 09-29-2023 End: 09-28-2024 Iron and Iron binding capacity panel - Serum or Plasma IRON AND TIBC Lab Routine Anemia, unspecified type Expected: 09/29/2023 (Approximate), Expires: 09/28/2024 [facility] Work Phone: Comment on above: Expected: 09/29/2023 (Approximate), Expi res: 09/28/2024 Start: 09-29-2023 End: 09-29-2023 ambulatory 09/29/2023 10:20 AM EDT Visit (SP) Office Hematology/Oncology [address] [place] [address] [place] [address] [place] [address] 6OV OV/LABS 09/20* Hematology/Oncology Comment on above: 6OV OV/LABS 09/20* Start: 09-21-2023 End: 09-21-2023 ambulatory 09/21/2023 11:15 AM EDT Results Only [facility] [address] [place] [address] LABS [facility] Comment on above: LABS Start: 09-21-2023 End: 09-21-2023 Patient encounter procedure 09/21/2023 10:40 AM EDT Office Visit [facility] [address] [address] [place] [address] [place] [address] Return in about 6 months (around 09/21/2023). [facility] Comment on above: Return in about 6 months (around 09/21/19 24). Start: 05-23-2023 Colonoscopy COLONOSCOPY [facility] Start: 05-23-2023 COLORECTAL CANCER SCREENING COLORECTAL CANCER SCREENING [facility] Start: 05-23-2023 Screening for malignant neoplasm of colon [facility] Start: 05-04-2023 Advance Directive Discussion Advance Directive Discussion [facility] Start: 05-04-2023 Behavioral Health Screening Behavioral Health Screening [facility] Start: 05-04-2023 Depression Assessment Depression Assessment [facility] Start: 03-13-2023 End: 05-13-2023 25-hydroxyvitamin D3 [Mass/volume] in Serum or Plasma VITAMIN D 25 HYDROXY Lab Routine Age-related osteoporosis with current pathological fracture with routine healing, subsequent encounter Other specified disorders of bone density and structure, unspecified site Expected: 03/13/2023 (Approximate), Expires: 05/13/2023 [facility] Work Phone: Comment on above: Expected: 03/13/2023 (Approximate), Expi res: 05/13/2023 Start: 03-13-2023 End: 05-13-2023 Albumin [Mass/volume] in Serum or Plasma ALBUMIN BLD Lab Routine Age-related osteoporosis with current pathological fracture with routine healing, subsequent encounter Expected: 03/13/2023 (Approximate), Expires: 05/13/2023 [facility] Work Phone: Comment on above: Expected: 03/13/2023 (Approximate), Expi res: 05/13/2023 Start: 03-13-2023 End: 05-13-2023 Calcium [Mass/volume] in Serum or Plasma CALCIUM TOTAL BLD Lab Routine Age-related osteoporosis with current pathological fracture with routine healing, subsequent encounter Expected: 03/13/2023 (Approximate), Expires: 05/13/2023 [facility] Work Phone: Comment on above: Expected: 03/13/2023 (Approximate), Expi res: 05/13/2023 Start: 03-13-2023 End: 05-13-2023 Calcium.ionized [Moles/volume] in Blood CALCIUM IONIZED BLOOD Lab Routine Age-related osteoporosis with current pathological fracture with routine healing, subsequent encounter Expected: 03/13/2023 (Approximate), Expires: 05/13/2023 [facility] Work Phone: Comment on above: Expected: 03/13/2023 (Approximate), Expi res: 05/13/2023 Start: 03-13-2023 End: 05-13-2023 Creatinine and Glomerular filtration rate.predicted panel - Serum, Plasma or Blood GFR ESTIMATED Lab Routine Age-related osteoporosis with current pathological fracture with routine healing, subsequent encounter Expected: 03/13/2023 (Approximate), Expires: 05/13/2023 [facility] Work Phone: Comment on above: Expected: 03/13/2023 (Approximate), Expi res: 05/13/2023 Start: 03-13-2023 End: 05-13-2023 CREATININE BLD CREATININE BLD Lab Routine Age-related osteoporosis with current pathological fracture with routine healing, subsequent encounter Expected: 03/13/2023 (Approximate), Expires: 05/13/2023 [facility] Work Phone: Comment on above: Expected: 03/13/2023 (Approximate), Expi res: 05/13/2023 Start: 03-13-2023 End: 05-13-2023 Parathyrin.intact [Mass/volume] in Serum or Plasma PTH INTACT BLD Lab Routine Age-related osteoporosis with current pathological fracture with routine healing, subsequent encounter Expected: 03/13/2023 (Approximate), Expires: 05/13/2023 [facility] Work Phone: Comment on above: Expected: 03/13/2023 (Approximate), Expi res: 05/13/2023 Start: 01-02-2023 Influenza vaccination [facility] Start: 10-17-2022 End: 10-10-2023 DXA-AXIAL SKELETON DXA-AXIAL SKELETON Radiology Routine Age-related osteoporosis with current pathological fracture with routine healing, subsequent encounter Other specified disorders of bone density and structure, unspecified site Localized osteoporosis ([place]) Expected: 10/17/2022 (Approximate), Expires: 10/10/2023 [facility] Work Phone: Comment on above: Expected: 10/17/2022 (Approximate), Expi res: 10/10/2023 Start: 10-17-2022 End: 10-10-2023 DXA-FOREARM SKELETON DXA-FOREARM SKELETON Radiology Routine Age-related osteoporosis with current pathological fracture with routine healing, subsequent encounter Other specified disorders of bone density and structure, unspecified site Expected: 10/17/2022 (Approximate), Expires: 10/10/2023 [facility] Work Phone: Comment on above: Expected: 10/17/2022 (Approximate), Expi res: 10/10/2023 Start: 08-26-2022 End: 10-26-2022 CBC W Auto Differential panel - Blood CBC + DIFF Lab Routine Abnormal SPEP Expected: 08/26/2022, Expires: 10/26/2022 [facility] Work Phone: Comment on above: Expected: 08/26/2022, Expires: Start: 08-26-2022 End: 10-26-2022 KAPPA/SAM,FREE,SER KAPPA/SAM,FREE,SER Lab Routine 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 Expected: 08/26/2022, Expires: 10/26/2022 [facility] Work Phone: Comment on above: Expected: 08/26/2022, Expires: Start: 08-26-2022 End: 10-26-2022 MONOCLONAL PROTEIN, SERUM (BLOOD) MONOCLONAL PROTEIN, SERUM (BLOOD) Lab Routine 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 Expected: 08/26/2022, Expires: 10/26/2022 [facility] Work Phone: Comment on above: Expected: 08/26/2022, Expires: 3 Start: 07-23-2022 End: 09-22-2022 25-hydroxyvitamin D3 [Mass/volume] in Serum or Plasma VITAMIN D 25 HYDROXY Lab Routine Age-related osteoporosis with current pathological fracture with routine healing, subsequent encounter Disorder of bone density and structure, unspecified Abnormal findings on diagnostic imaging of other specified body structures Vitamin D deficiency Expected: 07/23/2022, Expires: 09/22/2022 [facility] Work Phone: Comment on above: Expected: 07/23/2022, Expires: 3 Start: 07-23-2022 End: 09-22-2022 ALK PHOS BONE SPEC ALK PHOS BONE SPEC Lab Routine Age-related osteoporosis with current pathological fracture with routine healing, subsequent encounter Expected: 07/23/2022, Expires: 09/22/2022 [facility] Work Phone: Comment on above: Expected: 07/23/2022, Expires: 3 Start: 07-23-2022 End: 09-22-2022 CALCIUM 24 HR URINE CALCIUM 24 HR URINE Lab Routine Age-related osteoporosis with current pathological fracture with routine healing, subsequent encounter Expected: 07/23/2022, Expires: 09/22/2022 [facility] Work Phone: Comment on above: Expected: 07/23/2022, Expires: 3 Start: 07-23-2022 End: 09-22-2022 Calcium.ionized [Moles/volume] in Blood CALCIUM IONIZED BLOOD Lab Routine Age-related osteoporosis with current pathological fracture with routine healing, subsequent encounter Expected: 07/23/2022, Expires: 09/22/2022 [facility] Work Phone: Comment on above: Expected: 07/23/2022, Expires: 3 Start: 07-23-2022 End: 09-22-2022 CELIAC SCREEN WITH REFLEX CELIAC SCREEN WITH REFLEX Lab Routine Age-related osteoporosis with current pathological fracture with routine healing, subsequent encounter Expected: 07/23/2022, Expires: 09/22/2022 [facility] Work Phone: Comment on above: Expected: 07/23/2022, Expires: 3 Start: 07-23-2022 End: 09-22-2022 Collagen crosslinked C-telopeptide [Mass/volume] in Serum or Plasma C TELOPEPTIDE, BETA Lab Routine Age-related osteoporosis with current pathological fracture with routine healing, subsequent encounter Disorder of bone density and structure, unspecified Expected: 07/23/2022, Expires: 09/22/2022 [facility] Work Phone: Comment on above: Expected: 07/23/2022, Expires: 3 Start: 07-23-2022 End: 09-22-2022 Comprehensive metabolic 2000 panel - Serum or Plasma COMP METABOLIC PANEL Lab Routine Age-related osteoporosis with current pathological fracture with routine healing, subsequent encounter Expected: 07/23/2022, Expires: 09/22/2022 [facility] Work Phone: Comment on above: Expected: 07/23/2022, Expires: 3 Start: 07-23-2022 End: 09-22-2022 CREATININE 24 HR UR CREATININE 24 HR UR Lab Routine Age-related osteoporosis with current pathological fracture with routine healing, subsequent encounter Expected: 07/23/2022, Expires: 09/22/2022 [facility] Work Phone: Comment on above: Expected: 07/23/2022, Expires: 3 Start: 07-23-2022 End: 09-22-2022 Parathyrin.intact [Mass/volume] in Serum or Plasma PTH INTACT BLD Lab Routine Age-related osteoporosis with current pathological fracture with routine healing, subsequent encounter Expected: 07/23/2022, Expires: 09/22/2022 [facility] Work Phone: Comment on above: Expected: 07/23/2022, Expires: Start: 07-23-2022 End: 09-22-2022 Phosphate [Mass/volume] in Serum or Plasma PHOSPHORUS INORGANIC Lab Routine Age-related osteoporosis with current pathological fracture with routine healing, subsequent encounter Expected: 07/23/2022, Expires: 09/22/2022 [facility] Work Phone: Comment on above: Expected: 07/23/2022, Expires: Start: 07-23-2022 End: 09-22-2022 PROTEIN ELECTROPHORESIS SERUM W/INTERP PROTEIN ELECTROPHORESIS SERUM W/INTERP Lab Routine Age-related osteoporosis with current pathological fracture with routine healing, subsequent encounter Expected: 07/23/2022, Expires: 09/22/2022 [facility] Work Phone: Comment on above: Expected: 07/23/2022, Expires: Start: 07-23-2022 End: 09-22-2022 Thyrotropin [Units/volume] in Serum or Plasma TSH BLD Lab Routine Age-related osteoporosis with current pathological fracture with routine healing, subsequent encounter Disorder of bone density and structure, unspecified Abnormal findings on diagnostic imaging of other specified body structures Expected: 07/23/2022, Expires: 09/22/2022 [facility] Work Phone: Comment on above: Expected: 07/23/2022, Expires: 3 Start: 07-23-2022 End: 09-22-2022 Thyroxine (T4) free [Mass/volume] in Serum or Plasma T4 FREE/FREE THYROX Lab Routine Age-related osteoporosis with current pathological fracture with routine healing, subsequent encounter Disorder of bone density and structure, unspecified Abnormal findings on diagnostic imaging of other specified body structures Expected: 07/23/2022, Expires: 09/22/2022 [facility] Work Phone: Comment on above: Expected: 07/23/2022, Expires: 3 Start: 05-04-2022 ADVANCE DIRECTIVE DISCUSSION ADVANCE DIRECTIVE DISCUSSION [facility] Start: 05-04-2022 DEPRESSION ASSESSMENT DEPRESSION ASSESSMENT [facility] Start: 01-02-2022 Influenza vaccination INFLUENZA (#1) [facility] Start: 05-04-2021 ADVANCE DIRECTIVE DISCUSSION ADVANCE DIRECTIVE DISCUSSION [facility] Start: 05-04-2021 DEPRESSION ASSESSMENT DEPRESSION ASSESSMENT [facility] Start: 11-14-2019 Shingrix Vaccine (2 of 2) Shingrix Vaccine (2 of 2) [facility] Start: 08-23-2019 Lipid 1996 panel - Serum or Plasma Lipid Screening [facility] Start: 08-23-2019 Lipid panel Lipid Screening [facility] Start: 08-23-2019 LIPID SCREEN LIPID SCREEN [facility] Start: 12-16-2017 DIABETES SCREEN DIABETES SCREEN [facility] Start: 2017 End: 2017 Appointment Appointment [facility] Work Phone: Start: 04-14-2017 End: 04-14-2017 Appointment Appointment [facility] Work Phone: Start: 01-13-2017 End: 01-13-2017 Appointment Appointment [facility] Work Phone: Start: 01-13-2017 End: 01-13-2017 X-ray exam of neck spine X-Ray, Spine, Cervical 2-3 views [facility] Work Phone: Start: 12-23-2016 End: 12-23-2016 Appointment Appointment [facility] Work Phone: Start: 11-30-2016 Screening for osteoporosis Bone Density Screening [facility] Start: 11-11-2016 End: 11-11-2016 Appointment Appointment [facility] Work Phone: Start: 11-11-2016 End: 11-11-2016 X-ray exam of neck spine X-Ray, Spine, Cervical 2-3 views [facility] Work Phone: Start: 07-07-2016 End: 07-07-2016 X-ray exam of neck spine X-Ray, Spine, Cervical 2-3 views [facility] Work Phone: Start: 10-24-2015 PNEUMOCOCCAL: 65+ (1 - PCV) PNEUMOCOCCAL: 65+ (1 - PCV) [facility] Start: 06-27-2015 Mammography [facility] Start: 06-27-2015 Screening for malignant neoplasm of breast Mammogram Screening [facility] Start: 01-07-2014 FECAL OCCULT BLOOD FECAL OCCULT BLOOD [facility] Start: 01-07-2014 Screening for malignant neoplasm of colon Fecal Occult Blood [facility] Start: 12-30-2013 Pneumococcal Vaccine: 65+ (2 - PCV) Pneumococcal Vaccine: 65+ (2 - PCV) [facility] Start: 12-30-2013 PNEUMOCOCCAL: 65+ (2 - PCV) PNEUMOCOCCAL: 65+ (2 - PCV) [facility] Start: 12-31-2012 Urine microalbumin profile [facility] Start: 06-12-2011 Screening for malignant neoplasm of cervix Cervical Cancer Screening [facility] Start: 2010 RSV Vaccine (1 - 1-dose 60+ series) RSV Vaccine (1 - 1-dose 60+ series) [facility] Start: 2010 RSV Vaccine (1 - Risk 60-74 years 1-dose series) RSV Vaccine (1 - Risk 60-74 years 1-dose series) [facility] Start: 2000 Influenza vaccination LUNG CANCER SCREENING [facility] Start: 2000 SHINGRIX VACCINE (1 of 2) SHINGRIX VACCINE (1 of 2) [facility] Start: 10-24-1995 COLOGUARD (FIT-DNA) COLOGUARD (FIT-DNA) [facility] Start: 10-24-[address] COLONOGRAPHY [facility] Start: 10-24-1995 Screening for malignant neoplasm of colon [facility] Start: 10-24-1995 SIGMOIDOSCOPY SIGMOIDOSCOPY [facility] Start: 1969 SHINGRIX VACCINE (1 of 2) SHINGRIX VACCINE (1 of 2) [facility] Start: 1968 Anxiety Screening Anxiety Screening [facility] Start: 1968 Depression Screening Depression Screening [facility] Start: 1962 Adult depression screening assessment DEPRESSION SCREENING [facility] Start: 10-24-1955 COVID-19 VACCINE (#1) COVID-19 VACCINE (#1) [facility] Start: 04-24-1951 COVID-19 VACCINE (#1) COVID-19 VACCINE (#1) [facility] End: 03-23-2024 Basic metabolic 2000 panel - Serum or Plasma BASIC METABOLIC PNL Lab Routine 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 Every 6 months for 2 Occurrences starting 03/24/2023 until 03/23/2024 [facility] Work Phone: Comment on above: Every 6 months for 2 Occurrences startin g 03/24/2023 until 03/23/2024 End: 03-23-2024 CBC W Auto Differential panel - Blood CBC + DIFF Lab Routine 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 Every 6 months for 2 Occurrences starting 03/24/2023 until 03/23/2024 [facility] Work Phone: Comment on above: Every 6 months for 2 Occurrences startin g 03/24/2023 until 03/23/2024 End: 03-26-2024 Ct abdomen & pelvis w/contrast material CT ABD/PEL W IVCON Radiology Routine 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 1 Occurrences starting 02/25/2023 until 03/26/2024 [facility] Work Phone: Comment on above: 1 Occurrences starting 02/25/2023 until 03/26/2024 Ct abdomen & pelvis w/contrast material CT ABD/PEL W IVCON Radiology Routine 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 03/13/2023 11:46 AM EST [facility] Work Phone: End: 02-18-2024 Ct cervical spine w/o contrast material CT CERVICAL SPINE WO IVCON Radiology Routine Spinal stenosis of cervical region 1 Occurrences starting 01/19/2023 until 02/18/2024 [facility] Work Phone: Comment on above: 1 Occurrences starting 01/19/2023 until 02/18/2024 End: 03-26-2024 CT CHEST W IVCON CT CHEST W IVCON Radiology Routine 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 1 Occurrences starting 02/25/2023 until 03/26/2024 [facility] Work Phone: Comment on above: 1 Occurrences starting 02/25/2023 until 03/26/2024 CT CHEST W IVCON CT CHEST W IVCO N Radiology Routine 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 03/13/2023 11:46 AM EST [facility] Work Phone: End: 02-18-2024 Ct thoracic spine w/o contrast material CT THORACIC SPINE WO IVCON Radiology Routine Arthrodesis status 1 Occurrences starting 01/19/2023 until 02/18/2024 [facility] Work Phone: Comment on above: 1 Occurrences starting 01/19/2023 until 02/18/2024 End: 07-23-2023 DXA-AXIAL SKELETON DXA-AXIAL SKELETON Radiology Routine Age-related osteoporosis with current pathological fracture with routine healing, subsequent encounter Age-related osteoporosis with current pathological fracture, vertebra(e), initial encounter for fracture (HCC) 1 Occurrences starting 06/23/2022 until 07/23/2023 [facility] Work Phone: Comment on above: 1 Occurrences starting 06/23/2022 until 07/23/2023 End: 02-07-2023 EMG(NEURO/NI) EMG(NEURO/NI) EMG Routine Radiculopathy, cervical region 1 Occurrences starting 02/07/2022 until 02/07/2023 [facility] Work Phone: Comment on above: 1 Occurrences starting 02/07/2022 until 02/07/2023 End: 03-23-2024 KAPPA/SAM,FREE,SER KAPPA/SAM,FREE,SER Lab Routine 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 Every 6 months for 2 Occurrences starting 03/24/2023 until 03/23/2024 [facility] Work Phone: Comment on above: Every 6 months for 2 Occurrences startin g 03/24/2023 until 03/23/2024 MONOCLONAL PROT 24 U R W/INTERP MONOCLONAL PROT 24 UR W/INTERP Lab Routine 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 Age-related osteoporosis with current pathological fracture with routine healing, subsequent encounter Abnormal SPEP Ordered: 08/26/2022 [facility] Work Phone: Comment on above: Ordered: 08/26/2022 End: 02-25-2024 MONOCLONAL PROTEIN, SERUM (BLOOD) MONOCLONAL PROTEIN, SERUM (BLOOD) Lab Routine 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 Every 6 months for 2 Occurrences starting 02/25/2023 until 02/25/2024 [facility] Work Phone: Comment on above: Every 6 months for 2 Occurrences startin g 02/25/2023 until 02/25/2024 MONOCLONAL PROTEIN, SERUM (BLOOD) MONOCLONAL PROTEIN, SERUM (BLOOD) Lab Routine 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 02/25/2023 10:44 AM EDT [facility] Work Phone: End: 03-23-2024 MONOCLONAL PROTEIN, SERUM (BLOOD) MONOCLONAL PROTEIN, SERUM (BLOOD) Lab Routine 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 Every 6 months for 2 Occurrences starting 03/24/2023 until 03/23/2024 [facility] Work Phone: Comment on above: Every 6 months for 2 Occurrences startin g 03/24/2023 until 03/23/2024 End: 05-17-2023 Mri spinal canal cervical w/o & w/contr matrl MRI CERVICAL SPINE WO/W IVCON Radiology Routine Cervicalgia Arthrodesis status Adverse effect of treatment, initial encounter 1 Occurrences starting 04/17/2022 until 05/17/2023 [facility] Work Phone: Comment on above: 1 Occurrences starting 04/17/2022 until 05/17/2023 End: 05-17-2023 Mri spinal canal thoracic w/o & w/contr matrl MRI THORACIC SPINE WO/W IVCON Radiology Routine Arthrodesis status Adverse effect of treatment, initial encounter 1 Occurrences starting 04/17/2022 until 05/17/2023 [facility] Work Phone: Comment on above: 1 Occurrences starting 04/17/2022 until 05/17/2023 Patient Education CERVICAL%20SPI NAL%20STENOSI S [facility] Work Phone: PROT ELEC UR 24HR W/ M SPIKE (P) PROT ELEC UR 24HR W/M SPIKE (P) Lab Routine 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 Age-related osteoporosis with current pathological fracture with routine healing, subsequent encounter Abnormal SPEP Ordered: 08/26/2022 [facility] Work Phone: Comment on above: Ordered: 08/26/2022 PROT ELEC UR 24HR W/ M SPIKE AND INTERP PROT ELEC UR 24HR W/M SPIKE AND INTERP Lab Routine 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 Age-related osteoporosis with current pathological fracture with routine healing, subsequent encounter Abnormal SPEP Ordered: 08/26/2022 [facility] Work Phone: Comment on above: Ordered: 08/26/2022 Protein [Mass/time] in 24 hour Urine PROTEIN 24 HR URINE Lab Routine 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 Age-related osteoporosis with current pathological fracture with routine healing, subsequent encounter Abnormal SPEP Ordered: 08/26/2022 [facility] Work Phone: Comment on above: Ordered: 08/26/2022 End: 02-25-2024 PROTEIN ELECTROPHORESIS SERUM W/INTERP PROTEIN ELECTROPHORESIS SERUM W/INTERP Lab Routine 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 Every 6 months for 2 Occurrences starting 02/25/2023 until 02/25/2024 [facility] Work Phone: Comment on above: Every 6 months for 2 Occurrences startin g 02/25/2023 until 02/25/2024 PROTEIN ELECTROPHORE SIS SERUM W/INTERP PROTEIN ELECTROPHORESIS SERUM W/INTERP Lab Routine 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 02/25/2023 10:44 AM EDT [facility] Work Phone: End: 03-23-2024 PROTEIN ELECTROPHORESIS SERUM W/INTERP PROTEIN ELECTROPHORESIS SERUM W/INTERP Lab Routine 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 Every 6 months for 2 Occurrences starting 03/24/2023 until 03/23/2024 [facility] Work Phone: Comment on above: Every 6 months for 2 Occurrences startin g 03/24/2023 until 03/23/2024 End: 05-17-2023 Radex spine cervical 2 or 3 views XR CERV GENERAL 2V AP/LAT Radiology Routine Cervicalgia Arthrodesis status Adverse effect of treatment, initial encounter 1 Occurrences starting 04/17/2022 until 05/17/2023 [facility] Work Phone: Comment on above: 1 Occurrences starting 04/17/2022 until 05/17/2023 End: 05-17-2023 Radex spine cervical 4 or 5 views XR CERV OTHER 4V AP/LAT/FLX/EXT Radiology Routine Cervicalgia Arthrodesis status Adverse effect of treatment, initial encounter 1 Occurrences starting 04/17/2022 until 05/17/2023 [facility] Work Phone: Comment on above: 1 Occurrences starting 04/17/2022 until 05/17/2023 Radex spine cervical 4 or 5 views XR CERV OTHER 4V AP/LAT/FLX/EXT Radiology Routine Cervicalgia Arthrodesis status Adverse effect of treatment, initial encounter 04/17/2022 10:48 AM EST [facility] Work Phone: End: 08-22-2023 Radex spine lumbosacral 2/3 views XR LUMBAR GENERAL 3V AP/LAT/L5-S1 Radiology Routine Age-related osteoporosis with current pathological fracture with routine healing, subsequent encounter 1 Occurrences starting 07/23/2022 until 08/22/2023 [facility] Work Phone: Comment on above: 1 Occurrences starting 07/23/2022 until 08/22/2023 End: 11-19-2023 XR SHOULDER LIMITED 2V AP/TRUE AP LEFT XR SHOULDER LIMITED 2V AP/TRUE AP LEFT Radiology Routine Closed stable burst fracture of third thoracic vertebra with routine healing, subsequent encounter 1 Occurrences starting 10/20/2022 until 11/19/2023 [facility] Work Phone: Comment on above: 1 Occurrences starting 10/20/2022 until 11/19/2023 XR SHOULDER LIMITED 2V AP/TRUE AP LEFT XR SHOULDER LIMITED 2V AP/TRUE AP LEFT Radiology Routine Closed stable burst fracture of third thoracic vertebra with routine healing, subsequent encounter 10/20/2022 9:09 AM EDT [facility] Work Phone: [facility] Immunizations Immunization Date Immunization Notes Care Provider Fa [facility] 12-30-2012 pneumococcal polysaccharide vaccine, 23 valent Mayur Cao MD Work Phone: [facility] 12-30-2012 tetanus and diphther ia toxoids, adsorbed, preservative free, for adult use (2 Lf of tetanus toxoid and 2 Lf of diphtheria toxoid) Mayur Cao MD Work Phone: [facility] No information available. Marleni Chirinos RN [facility] Work Phone: Payers Date Payer Category Payer Unknown MMO MMO MEDICARE SUPPLEMENT [id number] 2021-Present [phone] [address] [place] [address] Indemnity [id number] 2016 Unknown [id number] 2016 Medicare [id number] 2015 Medicare MEDICARE MEDICAR E A AND B [id number] 2015-Present [phone] [address] [address] [place] [address] Medicare [id number] 1959 Medicare [id number] 1959 Medicare [id number] 1950 Unknown [id number] 1950 Unknown [id number] Social History Date Type Detail Facility Start: 02-15-2015 End: 04-17-2022 Tobacco smoking status NHIS Ex-smoker [facility] Start: 04-12-1968 End: 04-12-2013 History of tobacco use Current smoker [facility] Start: 04-12-1968 End: 04-12-2013 History of tobacco use Cigarette Smoker [facility] Start: 02-15-2015 End: 04-17-2022 Cigarettes smoked current (pack per day) - Reported 1 [facility] Start: 02-15-2015 End: 04-17-2022 Tobacco use and exposure Smokeless tobacco non-user [facility] Start: 12-18-2021 End: 04-17-2022 Alcohol intake Current non-drinker of alcohol (finding) [facility] Start: 12-07-2014 Tobacco Comment curently 1 pac k per month [facility] Start: 1950 Sex Assigned At Female C [facility] Start: 01-28-2022 End: 02-07-2022 Exposure to SARS-CoV-2 (event) Not sure [facility] Start: 04-17-2022 End: 10-20-2022 Tobacco use panel [facility] Adult Depression Screening Assessment 2 [facility] Start: 01-09-2022 Gender identity Identifies as female gender (finding) [facility] Start: 01-09-2022 Sexual orientation Heterosexual (fin ding) [facility] NEGATED: Highlighted rowStart: 2017 End: 2017 Assertion Former smoker [facility] Work Phone: NEGATED: Highlighted rowStart: 2017 End: 2017 How many days of moderate to strenuous exercise, like a brisk walk, did you do in the last 7 days? EXERCISEFREQ 7 days per week [facility] Work Phone: Medical Equipment Procedure Code Equipment Code Equipment Origin al Text Equipment Identifier Dates 3 Level Plate 39mm [id number] Start: 12-14-2014 Screw Bn 4mm 14m m [facility] - [id number] Start: 12-14-2014 Bio Avs C-Plug [id number] Start: 12-14-2014 Bio Avs C-Plug [id number] Start: 12-14-2014 Bio Avs C-Plug [id number] Start: 12-14-2014 Screw Bn 4mm 12m m [facility] - [id number] Start: 12-14-2014 Clinical Notes 08-03-2013 to 12-16-2023 Telephone Encounter - Lyric So RN - 12/16/2023 4:03 PM EDTTelephone Encounter - Lyric So RN - 12/16/2023 4:03 PM EDTSYuliana daniels RN - 12/15/2023 10:15 AM EDT Note Date & Type Note Facility 12-16-2023 Telephone encounter Note Patient notified of Dr. Nelson message about taking the Vitamin D 5000 5 days a week. Closed [facility] 12-16-2023 Miscellaneous Notes Patient notified of Dr. Nelson message about taking the Vitamin D 5000 5 days a week. Closed documented in this encounter [facility] 12-15-2023 Telephone encounter Note She can take vitamin D 5000 5 days a week Miley Nelson MD [facility] Work Phone: 12-15-2023 Miscellaneous Notes She can take vitamin D 5000 5 days a week Miley Nelson MD Patient was here for her first Prolia Injection today. Stated and provided results from PCP for updated Vitamin D labs draw. Results: 71.6 (30.0-100.0) She was told to lower her Vitamin D dose from 5000 international unit(s) daily to 4000 international unit(s) daily by her PCP. However, she has a lot of the 5000 international unit(s) capsules at home and is wondering if there is a way to take the 5000 international unit(s) dose but still be able to lower her dose in some way? Please advise in Dr. Monet's absence. Entered the outside lab result. Placed in your in box for review as well. documented in this encounter [facility] 12-15-2023 Telephone encounter Note Patient was here for her first Prolia Injection today. Stated and provided results from PCP for updated Vitamin D labs draw. Results: 71.6 (30.0-100.0) She was told to lower her Vitamin D dose from 5000 international unit(s) daily to 4000 international unit(s) daily by her PCP. However, she has a lot of the 5000 international unit(s) capsules at home and is wondering if there is a way to take the 5000 international unit(s) dose but still be able to lower her dose in some way? Please advise in Dr. Monet's absence. Entered the outside lab result. Placed in your in box for review as well. [facility] 12-15-2023 Nurse Note The patient is here for an injection of Prolia (First Injection) (Completed Evenity Therapy, last injection 11/02/23). Dose: 60 mg Route: Subcutaneous Lot# [id number] Expiration date 04/02/2026 Given without incident. Site: right arm Dr. Nelson present in clinic at time of injection. The date due for the next injection is in 6 months. DAVID: 10/27/23 NOV: Will need 10/2024 Insurance: Primary= Medicare, Secondary= MMO Supplement--- No PA Labs: 09/21/23 Calcium 9.3, 12/01/23 Vitamin D 71.6 DX: M81.0 CPT: J0897 DXA: 10/21/22 TScore: -2.9 Left FA Patient education was given by nurse. Patient tolerated Injection well, in NAD and no reactions noted. Medication supplied by [facility] AND BILL. Yuliana Bagley RN [facility] 12-15-2023 Nurse Note The patient is here for an injection of Prolia (First Injection) (Completed Evenity Therapy, last injection 11/02/23). Dose: 60 mg Route: Subcutaneous Lot# [id number] Expiration date 04/02/2026 Given without incident. Site: right arm Dr. Nelson present in clinic at time of injection. The date due for the next injection is in 6 months. DAVID: 10/27/23 NOV: Will need 10/2024 Insurance: Primary= Medicare, Secondary= MMO Supplement--- No PA Labs: 09/21/23 Calcium 9.3, 12/01/23 Vitamin D 71.6 DX: M81.0 CPT: J0897 DXA: 10/21/22 TScore: -2.9 Left FA Patient education was given by nurse. Patient tolerated Injection well, in NAD and no reactions noted. Medication supplied by [facility] AND BILL. Yuliana Bagley RN documented in this encounter [facility] 12-14-2023 Telephone encounter Note Order placed Miley Nelson MD [facility] Work Phone: 12-14-2023 Miscellaneous Notes Order placed Miley Nelson MD Patient is scheduled for a Prolia Injection on 12/15/23 at 10:[address] CAM order accordingly. Thank you. Please place in Dr. Monet's absence. Patient just finished Evenity injections last month and transitioning to Prolia. documented in this encounter [facility] 12-14-2023 Telephone encounter Note Patient is scheduled for a Prolia Injection on 12/15/23 at 10:[address] CAM order accordingly. Thank you. Please place in Dr. Monet's absence. Patient just finished Evenity injections last month and transitioning to Prolia. [facility] 11-02-2023 Telephone encounter Note Closed [facility] 11-02-2023 Miscellaneous Notes Closed Order placed Thank you HH Patient is scheduled for an Evenity Injection on 11/02/[address]. [address] CAM order accordingly, standing order (just need one more). Thank you. documented in this encounter [facility] 11-02-2023 Telephone encounter Note Order placed Thank you HH [facility] 10-30-2023 Telephone encounter Note Patient is scheduled for an Evenity Injection on 11/02/23. Please place CAM order accordingly, standing order (just need one more). Thank you. [facility] 10-28-2023 Telephone encounter Note Patient is already scheduled for 11/02/23 for last Evenity. Patient has Medicare A and B as primary insurance so no PA is required. Will schedule patient for Prolia in at her appointment. Closed [facility] 10-28-2023 Miscellaneous Notes Patient is already scheduled for 11/02/23 for last Evenity. Patient has Medicare A and B as primary insurance so no PA is required. Will schedule patient for Prolia in at her appointment. Closed ----- Message from Leslie Monet MD sent at 10/27/2023 11:24 AM EDT ----- Hello, This patient will receive her last Evenity on 11/02/2023. We will transition her to Prolia in December or January, depending on insurance and your availability Thank you HH documented in this encounter [facility] 10-27-2023 Telephone encounter Note ----- Message from Leslie Monet MD sent at 10/27/2023 11:24 AM EDT ----- Hello, This patient will receive her last Evenity on 11/02/2023. We will transition her to Prolia in December or January, depending on insurance and your availability Thank you HH [facility] 10-27-2023 Instructions Leslie Monet MD - 10/27/2023 11:18 AM EDT - Try calcium citrate (Citracal) 1 serving daily. When you start the Citracal, lower the vitamin D 3 times a week - We will start Prolia in December or January 2024. Please make sure to take it every 6 months - Repeat the bone density scan and blood tests in 10/2024 and I will see you at that time documented in this encounter [facility] 10-27-2023 Note HNO ID: [id number] Author: LESLIE MONET MD Service: ? Author Type: Physician Type: Progress Notes Filed: 10/27/2023 11:23 Note Text: ENDOCRINOLOGY CLINIC NOTE Reason for visit Yara Loya is a 73 year old female with fibromyalgia, RA presented [...] vertebral fractures while on long-term Fosamax therapy. DXA scan 10/21/2022 L-spine BMD 0.823, T-score -0.8 improved compared to 2020 Left forearm BMD 0.423, T-score -2.9 DXA 10/16/2020 (images below): L-spine BMD 0.987, [...] for a 10 years until 09/2022 Evenity 09/2022-present, will finish this month Family history of metabolic bone disease or [...] vitamin D 74, GFR 69 and PTH 67. She stopped taking the calcium due GI issues. She takes vitamin D 5000 units daily Past Medical History PAST MEDICAL HISTORY Diagnosis Date Arthritis of neck Fibromyalgia Herniated disc, cervical she says she has 7 herniated discs Osteoporosis Past Surgical History PAST SURGICAL HISTORY Procedure Laterality Date ARTHRD ANT INTERBODY MIN DSC CRV BELOW C2 12/14/14 DISCECTOMY ANT DCMPRN CORD CERVICAL 1 [facility] 12/14/14 DISCECTOMY ANT DCMPRN CORD CERVICAL EA [facility] 12/14/14 HEMORRHOID SURGERY HX 2013 PAST SURGICAL HISTORY OF 2000 back, done by ?DR. Kelley? TONSILLECTOMY AND ADENOIDECTOMY Medications Current Outpatient Medications Medication Sig TURMERIC ORAL Take 1 tablet by mouth once daily. oxyCODONE myristate (XTAMPZA ER) 13.5 mg CSpT Take 1 capsule by mouth two times a day. cholecalciferol (VITAMIN D3) 5,000 unit tab Take 5,000 Units by mouth once daily. predniSONE (DELTASONE) 10 mg tablet Take 10 mg by mouth once daily. tiZANidine (ZANAFLEX) 2 mg tablet Take 1 tablet by mouth every 8 hours as needed. (Patient not taking: Reported on 10/27/2023) multivitamin tablet Take 1 tablet by mouth once daily. (Patient not taking: Reported on 10/27/2023) methocarbamol (ROBAXIN-750) 750 mg tablet Take 1 tablet by mouth three times daily as needed. (Patient not taking: Reported on 03/23/2023) BIOTIN ORAL Take 2 tablets by mouth once daily. 6000 MCG Biotin, with Keratin 50 mg (Patient not taking: Reported on 09/21/2023) CALCIUM ORAL Take 600 mg by mouth [...] guidelines link. (Patient not taking: Reported on 09/21/2023) iv contrast (will be provided with radiology test) MRI TSP Inject, intravenously, once for 1 dose. No IV access, insert saline lock prior to the beginning of sedation, infusion, injection of imaging exam. Disconti (more content not included)... [facility] 10-27-2023 History of Present illness Narrative Images from the original note were not included. ENDOCRINOLOGY CLINIC NOTE Reason for visit Yara Loya is a 73 year old female with fibromyalgia, RA presented [...] vertebral fractures while on long-term Fosamax therapy. DXA scan 10/21/2022 L-spine BMD 0.823, T-score -0.8 improved compared to 2020 Left forearm BMD 0.423, T-score -2.9 DXA 10/16/2020 (images below): L-spine BMD 0.987, [...] for a 10 years until 09/2022 Evenity 09/2022-present, will finish this month Family history of metabolic bone disease or [...] vitamin D 74, GFR 69 and PTH 67. She stopped taking the calcium due GI issues. She takes vitamin D 5000 units daily Past Medical History PAST MEDICAL HISTORY Diagnosis Date Arthritis of neck Fibromyalgia Herniated disc, cervical she says she has 7 herniated discs Osteoporosis Past Surgical History PAST SURGICAL HISTORY Procedure Laterality Date ARTHRD ANT INTERBODY MIN DSC CRV BELOW C2 12/14/14 DISCECTOMY ANT DCMPRN CORD CERVICAL 1 [facility] 12/14/14 DISCECTOMY ANT DCMPRN CORD CERVICAL EA [facility] 12/14/14 HEMORRHOID SURGERY HX 2013 PAST SURGICAL HISTORY OF 2000 back, done by ?DR. Kelley? TONSILLECTOMY & ADENOIDECTOMY <AGE 12 Medications Current Outpatient Medications Medication Sig TURMERIC ORAL Take 1 tablet by mouth once daily. oxyCODONE myristate (XTAMPZA ER) 13.5 mg CSpT Take 1 capsule by mouth two times a day. cholecalciferol (VITAMIN D3) 5,000 unit tab Take 5,000 Units by mouth once daily. predniSONE (DELTASONE) 10 mg tablet Take 10 mg by mouth once daily. tiZANidine (ZANAFLEX) 2 mg tablet Take 1 tablet by mouth every 8 hours as needed. (Patient not taking: Reported on 10/27/2023) multivitamin tablet Take 1 tablet by mouth once daily. (Patient not taking: Reported on 10/27/2023) methocarbamol (ROBAXIN-750) 750 mg tablet Take 1 tablet by mouth three times daily as needed. (Patient not taking: Reported on 03/23/2023) BIOTIN ORAL Take 2 tablets by mouth once daily. 6000 MCG Biotin, with Keratin 50 mg (Patient not taking: Reported on 09/21/2023) CALCIUM ORAL Take 600 mg by mouth [...] guidelines link. (Patient not taking: Reported on 09/21/2023) iv contrast (will be provided with radiology [...] guidelines link. (Patient not taking: Reported on 09/21/2023) hydrOXYchloroQUINE (PLAQUENIL) 200 mg tablet Take 200 mg by mouth once daily. (Patient not taking: Reported on 10/27/2023) folic acid 0.8 mg cap Take 2 capsules by mouth once daily. (Patient not taking: Reported on 10/27/2023) methotrexate 2.5 mg tablet Take 8 tablets by mouth once weekly. (Patient not taking: Reported on 10/27/2023) cetirizine (ZYRTEC) 10 mg tablet Take 10 mg by mouth once daily. (Patient not taking: Reported on 03/23/2023) gabapentin (NEURONTIN) 300 mg capsule Take 1 capsule by mouth twice daily for 180 days. (Patient not taking: Reported on 03/23/2023) CALCIUM CARBONATE (CALCIUM 300 ORAL) Take 1 tablet by mouth once daily. (Patient not taking: Reported on 09/21/2023) meloxicam (MOBIC) 15 mg tablet Take 1 tablet by mouth once daily. Take with food. (Patient not taking: Reported on 03/23/2023) OMEGA-3 FATTY ACIDS/FISH OIL (OMEGA 3 FISH OIL ORAL) Take by mouth once daily. (Patient not taking: Reported on 05/27/2023) No current facility-administered medications for this visit. [...] Types: Cigarettes Quit date: 04/12/2013 Years since quittin.5 Smokeless tobacco: Never Substance Use Topics Alcohol use: No Drug use: No Review of Systems: 10 point review of systems was negative other than what is mentioned in the H&P Physical Exam BP 130/78 Pulse 94 Resp 16 Ht 147.3 cm (4' 9.99 ) Wt 46 kg (101 lb 6.6 oz) SpO2 99% BMI 21.20 kg/m Body mass index is 21.2 kg/m . Last 3 Encounter Ht Readings: [...] Assessment and recommendations Yara Loya is a 73 year old female presented for follow-up of [...] slightly elevated with slightly low urine calcium. She was on antiresorptive therapy for 20 years and developed vertebral fractures. Therefore, we intensified therapy and switch to Evenity in 09/2022 and received her last injection on 11/02/2023. We discussed the options to transition the therapy after that and these include Reclast or Prolia. We will start Prolia in December or January 2024 and we discussed the importance of taking it every 6 months Repeat DXA scan in October 2024 Hyperparathyroidism: Her PTH is mildly elevated during secondary evaluation with no hypercalcemia. Her urine calcium is slightly low. This may represent secondary hyperparathyroidism or normocalcemic primary hyperparathyroidism. Repeat labs showed improvement in the PTH but still slightly elevated with high normal ionized calcium, and normal total calcium. She stopped taking the calcium supplements due to GI issues. She will try calcium citrate for example Citracal 1 serving daily in addition to the dietary calcium. If she starts Citracal, I asked Her to lower the vitamin D 5000 units to 3 times a week. We will repeat her labs before the next visit in 1 year Some of the above has been copied from prior documentation on 05/27/2023 but geronimo elements reviewed, confirmed, and/or updated by me (Leslie Monet MD) on 10/27/2023 Medical Decision Making: Problems: Low: 2+ self-limited or minor problems Data: Unique test result(s) reviewed: 3+ Unique test(s) ordered: 3+ Risk: Moderate: Moderate risk from testing/treatment Medical Decision Making Level: 4 - Moderate This note was created using PeekYou dictation software. You may find errors that were missed during proofreading. They are purely unintentional and if there are any concerns regarding this dictation, please do not hesitate to call the dictating provider for clarification. Leslie Monet MD documented in this encounter [facility] 10-01-2023 Nurse Note The patient is here for an injection of Evenity Injection #11 of 12 Dose: 210 mg (105 mg/1.17 mL X2). Route: Subcutaneous Lot# [id number] Expiration date 10/31/2025 [facility]: 42124-433-97 Given without incident. Site: Right arm Dr. Nelson present in clinic at time of injection. The date due for the next injection is in 30 days. On or after 11/01/23. Last Injection: 08/31/23 DAVID: 07/23/22 NOV: 10/27/23 Insurance: Primary= Medicare, Secondary= MMO-- No PA Required Labs: 03/13/23 Calcium 9.5, Vitamin D 74.1 DX: M81.0 CPT: J3111 DXA: 10/21/22 (T-Score -2.9 Left Forearm) Patient education was given by nurse. Patient tolerated Injection well, in NAD and no reactions noted. Medication supplied by [facility] JONELLE So, RN [facility] 10-01-2023 Nurse Note The patient is here for an injection of Evenity Injection #11 of 12 Dose: 210 mg (105 mg/1.17 mL X2). Route: Subcutaneous Lot# [id number] Expiration date 10/31/2025 [place]: 73418-906-72 Given without incident. Site: Right arm Dr. Nelson present in clinic at time of injection. The date due for the next injection is in 30 days. On or after 11/01/23. Last Injection: 08/31/23 DAVID: 07/23/22 NOV: 10/27/23 Insurance: Primary= Medicare, Secondary= MMO-- No PA Required Labs: 03/13/23 Calcium 9.5, Vitamin D 74.1 DX: M81.0 CPT: J3111 DXA: 10/21/22 (T-Score -2.9 Left Forearm) Patient education was given by nurse. Patient tolerated Injection well, in NAD and no reactions noted. Medication supplied by [facility] JONELLE So RN documented in this encounter [facility] 09-29-2023 Note HNO ID: [id number] Author: WISAM MILLS MD Service: ? Author Type: Physician Type: Progress Notes Filed: 09/29/2023 15:29 Note Text: (Elements copied from my note dated ,March 24, 2023 have been reviewed and updated where appropriate, and all reflect current assessment and medical decision making from today's encounter, September 29, 2023) HISTORY OF PRESENT ILLNESS: Yara Loya is a 71 year old female referred for monoclonal gammopathy. Feels well, found on basis of osteopenia work up. Reviewed possible implications. Here for follow up, reviewed labs IgM monoclonal gammopathy. Reviewed scans, no adenopathy. CLINICAL IMPRESSION: Monoclonal gammopathy, IgM subtype appears to be of unknown significance RECOMMENDATION/PLAN: 1. MGUS Labs and follow up 6 months. 2. Anemia labs when feasible Written and verbal health teaching given to patient, patient verbalizes understanding and agrees with treatment plan. PAST MEDICAL HISTORY Diagnosis Date Arthritis of neck Fibromyalgia Herniated disc, cervical she says she has 7 herniated discs Osteoporosis PAST SURGICAL HISTORY Procedure Laterality Date ARTHRD ANT INTERBODY MIN DSC CRV BELOW C2 12/14/14 DISCECTOMY ANT DCMPRN CORD CERVICAL 1 [facility] 12/14/14 DISCECTOMY ANT DCMPRN CORD CERVICAL EA [facility] 12/14/14 HEMORRHOID SURGERY HX 2013 PAST [...] Other: See Comments sinus CURRENT OUTPATIENT MEDICATIONS: tiZANidine (ZANAFLEX) 2 mg tabletTake 1 tablet by mouth every 8 hours as needed.Disp: 30 tabletRfl: 0 TURMERIC ORALTake 1 tablet by mouth once [...] 10 mg by mouth once daily.Disp: Rfl: multivitamin tabletTake 1 tablet by mouth once daily.Disp: Rfl: methocarbamol (ROBAXIN-750) 750 mg tabletTake 1 tablet by mouth three times daily as needed.Disp: 60 tabletRfl: 0 (Patient not taking: Reported on 03/23/2023) BIOTIN ORALTake 2 tablets by mouth once daily. 6000 MCG Biotin, with Keratin 50 mgDisp: Rfl: (Patient not taking: Reported on 09/21/2023) CALCIUM ORALTake 600 mg by mouth once [...] EachRfl: 0 (Patient not taking: Reported on 09/21/2023) iv contrast (will be provided with radiology [...] EachRfl: 0 (Patient not taking: Reported on 09/21/2023) cetirizine (ZYRTEC) 10 mg tabletTake 10 mg by mouth once daily.Disp: Rfl: (Patient not taking: Reported on 03/23/2023) gabapentin (NEURONTIN) 300 mg capsuleTake 1 capsule by mouth twice daily for 180 days.Disp: 180 capsuleRfl: 1 (Patient not taking: Reported on 03/23/2023) CALCIUM CARBONATE (CALCIUM 300 ORAL)Take 1 tablet by mouth once daily.Disp: Rfl: (Patient not taking: Reported on 09/21/2023) meloxicam (MOBIC) 15 mg tabletTake 1 tablet by mouth once daily. Take with food.Disp: 30 tabletRfl: 2 (Patient not taking: Reported on 03/23/2023) OMEGA-3 FATTY ACIDS/FISH OIL (OMEGA 3 FISH OIL ORAL)Take by mouth once daily.Disp: Rfl: (Patient not taking: Reported on 05/27/2023) REVIEW OF SYSTEMS: GENERAL: No fever, n (more content not included)... [facility] 09-29-2023 History of Present illness Narrative (Elements copied from my note dated ,March 24, 2023 have been reviewed and updated where appropriate, and all reflect current assessment and medical decision making from today's encounter, September 29, 2023) HISTORY OF PRESENT ILLNESS: Yara Loya is a 71 year old female referred for monoclonal gammopathy. Feels well, found on basis of osteopenia work up. Reviewed possible implications. Here for follow up, reviewed labs IgM monoclonal gammopathy. Reviewed scans, no adenopathy. CLINICAL IMPRESSION: Monoclonal gammopathy, IgM subtype appears to be of unknown significance RECOMMENDATION/PLAN: 1. MGUS Labs and follow up 6 months. 2. Anemia labs when feasible Written and verbal health teaching given to [...] 12/14/14 DISCECTOMY ANT DCMPRN CORD CERVICAL EA [facility] 12/14/14 HEMORRHOID SURGERY HX 2014 PAST [...] Other: See Comments sinus CURRENT OUTPATIENT MEDICATIONS: tiZANidine (ZANAFLEX) 2 mg tablet^Take 1 tablet by mouth every 8 hours as needed.^Disp: 30 tablet^Rfl: 0 TURMERIC ORAL^Take 1 tablet by mouth once [...] 10 mg by mouth once daily.^Disp: ^Rfl: multivitamin tablet^Take 1 tablet by mouth once daily.^Disp: ^Rfl: methocarbamol (ROBAXIN-750) 750 mg tablet^Take 1 tablet by mouth three times daily as needed.^Disp: 60 tablet^Rfl: 0 (Patient not taking: Reported on 03/23/2023) BIOTIN ORAL^Take 2 tablets by mouth once daily. 6000 MCG Biotin, with Keratin 50 mg^Disp: ^Rfl: (Patient not taking: Reported on 09/21/2023) CALCIUM ORAL^Take 600 mg by mouth once [...] Each^Rfl: 0 (Patient not taking: Reported on 09/21/2023) iv contrast (will be provided with radiology [...] Each^Rfl: 0 (Patient not taking: Reported on 09/21/2023) cetirizine (ZYRTEC) 10 mg tablet^Take 10 mg by mouth once daily.^Disp: ^Rfl: (Patient not taking: Reported on 03/23/2023) gabapentin (NEURONTIN) 300 mg capsule^Take 1 capsule by mouth twice daily for 180 days.^Disp: 180 capsule^Rfl: 1 (Patient not taking: Reported on 03/23/2023) CALCIUM CARBONATE (CALCIUM 300 ORAL)^Take 1 tablet by mouth once daily.^Disp: ^Rfl: (Patient not taking: Reported on 09/21/2023) meloxicam (MOBIC) 15 mg tablet^Take 1 tablet by mouth once daily. Take with food.^Disp: 30 tablet^Rfl: 2 (Patient not taking: Reported on 03/23/2023) OMEGA-3 FATTY ACIDS/FISH OIL (OMEGA 3 FISH OIL ORAL)^Take by mouth once daily.^Disp: ^Rfl: (Patient not taking: Reported on 05/27/2023) REVIEW OF SYSTEMS: GENERAL: No fever, night sweats, weight loss or malaise. All other reviewed and negative other than HPI. PHYSICAL EXAMINATION: VITAL SIGNS: BP 122/76 Pulse 96 Temp (Src) 97.3 (Temporal) Wt 101 lb 8 oz (46.0kg) SpO2 98% GENERAL APPEARANCE: Well appearing, in no acute distress, alert and oriented x3, well-hydrated, well nourished. No adenopathy or splenomegaly I spent a total of 30 minutes on the date of the service which included preparing to see the patient, [id number] patient care, completing clinical documentation, obtaining and/or reviewing separately obtained history, counseling and educating the patient/family/caregiver, ordering medications, tests, or procedures, independently interpreting results (not separately reported), and communicating results to the patient/family/caregiver. Electronically Signed: Wisam Mills MD September 29, 2023 documented in this encounter [facility] 09-21-2023 History of Present illness Narrative Images from the original note were not included. SPINE SURGERY ESTABLISHED VISIT This is an in-person visit. DATE OF SERVICE: 09/20/2023 DATE OF LAST VISIT: 03/23/2023 SUBJECTIVE: HPI:Yara Loya is a 72 year old female presenting alone She c/o shoulder pain and constant neck pain. Pain is around her whole neck radiating to bilateral arms. Pain is worsened by neck movement. She is taking Xtampza for pain management. She notes that she discontinued Robaxin and gabapentin because it made her really fatigued. She agrees to try another muscle relaxant and will continue to consider surgery. She is receiving injections for her osteoporosis. MEDICATIONS: multivitamin tablet^Take 1 tablet by mouth [...] 10 mg by mouth once daily.^Disp: ^Rfl: tiZANidine (ZANAFLEX) 2 mg tablet^Take 1 tablet by mouth every 8 hours as needed.^Disp: 30 tablet^Rfl: 0 methocarbamol (ROBAXIN-750) 750 mg tablet^Take 1 tablet by mouth three times daily as needed.^Disp: 60 tablet^Rfl: 0 (Patient not taking: Reported on 03/23/2023) BIOTIN ORAL^Take 2 tablets by mouth once daily. 6000 MCG Biotin, with Keratin 50 mg^Disp: ^Rfl: (Patient not taking: Reported on 09/21/2023) CALCIUM ORAL^Take 600 mg by mouth once [...] Each^Rfl: 0 (Patient not taking: Reported on 09/21/2023) iv contrast (will be provided with radiology [...] Each^Rfl: 0 (Patient not taking: Reported on 09/21/2023) cetirizine (ZYRTEC) 10 mg tablet^Take 10 mg by mouth once daily.^Disp: ^Rfl: (Patient not taking: Reported on 03/23/2023) gabapentin (NEURONTIN) 300 mg capsule^Take 1 capsule by mouth twice daily for 180 days.^Disp: 180 capsule^Rfl: 1 (Patient not taking: Reported on 03/23/2023) CALCIUM CARBONATE (CALCIUM 300 ORAL)^Take 1 tablet by mouth once daily.^Disp: ^Rfl: (Patient not taking: Reported on 09/21/2023) meloxicam (MOBIC) 15 mg tablet^Take 1 tablet by mouth once daily. Take with food.^Disp: 30 tablet^Rfl: 2 (Patient not taking: Reported on 03/23/2023) OMEGA-3 FATTY ACIDS/FISH OIL (OMEGA 3 FISH OIL ORAL)^Take by mouth once daily.^Disp: ^Rfl: (Patient not taking: Reported on 05/27/2023) Patient Entered Questionnaires 10/20/2022 03/23/2023 Spine Questions Pain Location: Neck Neck Pain Duration: 1-3 months Symptoms from neck/cervical spine: Yes Yes Employment Status: Retired Retired Involved in law suit/legal claim: No 10/20/2022 03/23/2023 Neck Questionnaires Benzel Modified BIANCA Score 10 (Severe Myelopathy Symptoms) 14 (Moderate Myelopathy Symptoms) PROMIS Score Percentiles 10/20/2022 03/23/2023 Physical Health Physical Function Percentile 8 7 Sleep Percentile 34 34 Fatigue Percentile 50 12 Pain Interference Percentile 12 10 10/20/2022 03/23/2023 PROMIS SOCIAL ROLE SCORE Social Role Satisfaction Percentile 31 42 04/09/2016 10/20/2022 03/23/2023 PROMIS Global Health Scale Physical Health Percentile 0 15 22* 22* Mental Health Percentile 1 9 Percentiles provide an indication of how the patient's score ranks in relation to the general population. Higher percentile rankings indicate better function/quality of life. 50th percentile is the average of the general population and indicates half of respondents had a worse score. Depression Screenin05/30/2015 02/20/2016 10/20/2022 PHQ-9 Score 23 21 7 05/30/2015 02/20/2016 10/20/2022 PHQ-9 Self-harm Question Question 9 Nearly every day More than half the days Not at all PHQ-9 Self-Harm (Item 9) response options: 0 Not at all 1 Several days 2 More than half the days 3 Nearly every day PHQ-9 Levels: 0-4 No to mild depression 5-9 Mild depression 10-14 Moderate depression 15-19 Moderately severe depression 20-27 Severe depression OBJECTIVE: PHYSICAL EXAM: Unchanged from prior ASSESSMENT/PLAN (M47.812) Cervical spondylosis without myelopathy (primary encounter diagnosis) Yara Loya will continue with medical management of his/her condition. I did discuss the patient surgical intervention would include extension of fusion to T4 I connected the prior system. This would help the patient's symptoms due to the extensive arthritic changes between T2-3 and 3 4 and the collapse at the T3 body with associated spondylolisthesis at T2-3. Patient would like to think about it and let us know. Medications: Tizanidine 2 mg tablet. Take 1 tablet by mouth every 8 hours as needed. Follow up: PRN Imaging Ordered: None The documentation for this note was completed by Meggan Fox acting as scribe for Jamie Bull MD. September 21, 2023 10:52 AM. SIGNATURE: Jamie Bull MD PATIENT NAME: Yara Loya DATE: September 21, 2023 TIME: 3:05 PM PAGER: documented in this encounter [facility] 09-21-2023 Note HNO ID: [id number] Author: JAMIE BULL MD Service: ? Author Type: Physician Type: Progress Notes Filed: 09/21/2023 11:56 Note Text: SPINE SURGERY ESTABLISHED VISIT This is an in-person visit. DATE OF SERVICE: 09/20/2023 DATE OF LAST VISIT: 03/23/2023 SUBJECTIVE: HPI:Yara Loya is a 72 year old female presenting alone She c/o shoulder pain and constant neck pain. Pain is around her whole neck radiating to bilateral arms. Pain is worsened by neck movement. She is taking Xtampza for pain management. She notes that she discontinued Robaxin and gabapentin because it made her really fatigued. She agrees to try another muscle relaxant and will continue to consider surgery. She is receiving injections for her osteoporosis. MEDICATIONS: multivitamin tabletTake 1 tablet by mouth [...] 10 mg by mouth once daily.Disp: Rfl: tiZANidine (ZANAFLEX) 2 mg tabletTake 1 tablet by mouth every 8 hours as needed.Disp: 30 tabletRfl: 0 methocarbamol (ROBAXIN-750) 750 mg tabletTake 1 tablet by mouth three times daily as needed.Disp: 60 tabletRfl: 0 (Patient not taking: Reported on 03/23/2023) BIOTIN ORALTake 2 tablets by mouth once daily. 6000 MCG Biotin, with Keratin 50 mgDisp: Rfl: (Patient not taking: Reported on 09/21/2023) CALCIUM ORALTake 600 mg by mouth once [...] EachRfl: 0 (Patient not taking: Reported on 09/21/2023) iv contrast (will be provided with radiology [...] EachRfl: 0 (Patient not taking: Reported on 09/21/2023) cetirizine (ZYRTEC) 10 mg tabletTake 10 mg by mouth once daily.Disp: Rfl: (Patient not taking: Reported on 03/23/2023) gabapentin (NEURONTIN) 300 mg capsuleTake 1 capsule by mouth twice daily for 180 days.Disp: 180 capsuleRfl: 1 (Patient not taking: Reported on 03/23/2023) CALCIUM CARBONATE (CALCIUM 300 ORAL)Take 1 tablet by mouth once daily.Disp: Rfl: (Patient not taking: Reported on 09/21/2023) meloxicam (MOBIC) 15 mg tabletTake 1 tablet by mouth once daily. Take with food.Disp: 30 tabletRfl: 2 (Patient not taking: Reported on 03/23/2023) OMEGA-3 FATTY ACIDS/FISH OIL (OMEGA 3 FISH OIL ORAL)Take by mouth once daily.Disp: Rfl: (Patient not taking: Reported on 05/27/2023) Patient Entered Questionnaires 10/20/2022 03/23/2023 Spine Questions Pain Location: Neck Neck Pain Duration: 1-3 months Symptoms from neck/cervical spine: Yes Yes Employment Status: Retired Retired Involved in law suit/legal claim: No 10/20/2022 03/23/2023 Neck Questionnaires Benzel Modified BIANCA Score 10 (Severe Myelopathy Symptoms) 14 (Moderate Myelopathy Symptoms) PROMIS Score Percentiles 10/20/2022 03/23/2023 Physical Health Physical Function Percentile 8 7 Sleep Percentile 34 34 Fatigue Percentile 50 12 Pain Interference Percentile 12 10 10/20/2022 03/23/2023 PROMIS SOCIAL ROLE SCORE Social Role Satisfaction Percentile 31 42 04/09/2016 10/20/2022 03/23/2023 PROMIS Global Health Scale Physical Health Percentile 0 15 22* 22* Mental Health Percentile 1 9 Percentiles provide an indication of how the patient's score ranks in relation to the general population. Higher percentile rankings indicate better function/quality of life. 50th percentile is the average of the general population and indicates half of respondents had a worse score. Depression Screenin05/30/2015 02/20/2016 10/20/2022 PHQ-9 Score 23 21 7 05/30/2015 (more content not included)... [facility] 08-31-2023 Nurse Note The patient is here for an injection of Evenity Injection #10 of 12 Dose: 210 mg (105 mg/1.17 mL X2). Route: Subcutaneous Lot# [id number] Expiration date 10/31/2025 [facility]: 17994-584-98 Given without incident. Site: Right arm Dr. Dougherty present in clinic at time of injection. The date due for the next injection is in 30 days. On or after 09/30/2023. Last Injection: 06/29/23 DAVID: 05/27/23 NOV: Will need 10/27/2023 recommendation Insurance: Primary= Medicare, Secondary= MMO-- No PA Required Labs: 03/13/23 Calcium 9.5, Vitamin D 74.1 DX: M81.0 CPT: J3111 DXA: 10/21/22 (T-Score -2.9 Left Forearm) Patient education was given by nurse. Patient tolerated Injection well, in NAD and no reactions noted. Medication supplied by Pancho So RN [facility] 08-31-2023 Nurse Note The patient is here for an injection of Evenity Injection #10 of 12 Dose: 210 mg (105 mg/1.17 mL X2). Route: Subcutaneous Lot# [id number] Expiration date 10/31/2025 ND: 22241-032-99 Given without incident. Site: Right arm Dr. Dougherty present in clinic at time of injection. The date due for the next injection is in 30 days. On or after 09/30/2023. Last Injection: 06/29/23 DAVID: 05/27/23 NOV: Will need 10/27/2023 recommendation Insurance: Primary= Medicare, Secondary= MMO-- No PA Required Labs: 03/13/23 Calcium 9.5, Vitamin D 74.1 DX: M81.0 CPT: J3111 DXA: 10/21/22 (T-Score -2.9 Left Forearm) Patient education was given by nurse. Patient tolerated Injection well, in NAD and no reactions noted. Medication supplied by [facility] JONELLE So RN documented in this encounter [facility] 07-22-2023 Miscellaneous Notes Reviewed. Thank you HH RECEIVED A FAX FROM [facility] Dexa Scan from 10/21/2022 Send to scanning when done documented in this encounter [facility] 07-21-2023 Miscellaneous Notes Patient is scheduled for 08/31/23 at 10am for Evenity. Closed Patient calling backto report she will be skipping the month of July for her injection due to having surgery. She will resume and has her injections scheduled for August. Thank you Called patient to schedule a July Nurse visit for the Evenity injection. Needs to be 07/28/23 or after. documented in this encounter [facility] 05-27-2023 Note HNO ID: [id number] Author: LESLIE MONET MD Service: ? Author Type: Physician Type: [...] complete flush l (more content not included)... [facility] 04-22-2023 Nurse Note The patient is here for an injection of Evenity Injection #7 of 12 Dose: 210 mg (105 mg/1.17 mL X2). Route: Subcutaneous Lot# [id number] Expiration date 01/31/2025 [facility]: 11566-232-07 Given without incident. Site: Right arm Dr. Monet present in clinic at time of injection. [...] supplied by [facility]. Lyric So RN documented in this encounter [facility] 03-24-2023 Note HNO ID: [id number] Author: Wisam Mills MD Service: ? Author [...] 12/14/14 DISCECTOMY ANT DCMPRN CORD CERVICAL EA [facility] 12/14/14 HEMORRHOID SURGERY HX 2014 PAST [...] appearing, in no (more content not included)... [facility] 03-24-2023 History of Present illness Narrative (Elements [...] 12/14/14 DISCECTOMY ANT DCMPRN CORD CERVICAL 1 [facility] 12/14/14 DISCECTOMY ANT DCMPRN CORD CERVICAL EA [facility] 12/14/14 HEMORRHOID SURGERY HX 2013 PAST [...] which included preparing to see the patient, ysae-ie-lfah patient care, completing clinical documentation, obtaining and/or reviewing separately obtained history, counseling and educating the patient/family/caregiver, ordering medications, tests, or procedures, independently interpreting results (not separately reported), and communicating results to the patient/family/caregiver. Electronically Signed: Wisam Mills MD March 24, 2023 documented in this encounter [facility] 03-23-2023 Nurse Note The patient is here for an injection of Evenity Injection #6 of 12 Dose: 210 mg (105 mg/1.17 mL X2). Route: Subcutaneous Lot# [id number] Expiration date 01/31/2025 [facility]: 56533-331-89 Given without incident. Site: Right arm Dr. [...] supplied by [facility]. Lyric So RN documented in this encounter [facility] 03-23-2023 Note HNO ID: [id number] Author: Jamie Bull MD Service: ? Author [...] hands She is followed by Dr. Leslie Monet and has been receiving Evenity injections. She [...] claim: No - Neck Questionnaires 10/20/2022 03/23/2023 Augustinel Modified BIANCA Score 10 (A lower score indicates increased pain and issues.) 14 (A lower score indicates increased pain and issues.) PROMIS Score Percentiles Physical Health 10/20/2022 03/23/2023 Physical Function Percentile 8 7 Sleep Percentile 34 34 Fatigue Percentile 50 12 Pain Interference Percentile 12 10 PROMIS SOCIAL ROLE SCORE 10/20/2022 03/23/2023 Social Role Satisfaction Percentile 31 42 (more content not included)... [facility] 03-23-2023 History of Present illness Narrative [...] hands She is followed by Dr. Leslie Monet and has been receiving Evenity injections. She [...] Past Histories independently gathered by the clinical respiratory support technician and the remaining scribed note accurately describes my personal service to the patient. The documentation for this note was completed by Nancy Bower acting as scribe for Jamie Bull MD. March 23, 2023 9:33 AM. I agree with the operative note independently gathered by the clinical respiratory support technician and the remaining scribed note accurately describes my personal service to the patient. SIGNATURE: Jamie Bull MD PATIENT NAME: Yara Loya DATE: March 23, 2023 TIME: 9:27 AM PAGER: documented in this encounter [facility] 03-13-2023 History of Present illness Narrative Radiology [...] Exam(s) Completed: Chest Abdomen Pelvis SIGNATURE: RT Aaron([place]) PATIENT NAME: Yara Loya DATE: March 13, 2023 TIME: 12:04 PM documented in this encounter [facility] 03-13-2023 Note HNO ID: [id number] Author: Becky Reno RT(R) Service: ? Author Type: Case Advocate Type: Progress Notes Filed: 03/13/2023 12:05 PM [...] DATE: March 13, 2023 TIME: 12:04 PM [facility] 02-25-2023 Note HNO ID: [id number] Author: Wisam Mills MD Service: ? Author [...] BMI 20.28 kg/( (more content not included)... [facility] 02-25-2023 History of Present illness Narrative (Elements [...] 12/14/14 DISCECTOMY ANT DCMPRN CORD CERVICAL 1 [facility] 12/14/14 DISCECTOMY ANT DCMPRN CORD CERVICAL EA [facility] 12/14/14 HEMORRHOID SURGERY HX 2014 PAST [...] which included preparing to see the patient, ykvw-wq-vbnb patient care, completing clinical documentation, obtaining and/or reviewing separately obtained history, counseling and educating the patient/family/caregiver, ordering medications, tests, or procedures, independently interpreting results (not separately reported), and communicating results to the patient/family/caregiver. Electronically Signed: Wisam Mills MD February 25, 2023 documented in this encounter [facility] 02-18-2023 Nurse Note The patient is here for an injection of Evenity Injection #5 of 12 Dose: 210 mg (105 mg/1.17 mL X2). Route: Subcutaneous Lot# [id number] Expiration date 01/31/2025 ND: 95436-667-94 Given without incident. Site: Right arm Dr. Monet present in clinic at time of injection. The date due for the next injection is in 30 days. On or after 03/21/2023. Last Injection: 01/19/23 DAVID: 09/10/2022 NOV: 03/17/2023 (patient will be rescheduling for 05/2023 per her choice) Insurance: Primary= Medicare, Secondary= MMO-- No PA Required Labs: 07/29/22 Calcium 9.7, Vitamin D 45.7 DX: M81.0 CPT: J3111 DXA: 10/16/20 (TScore -2.9) Patient education was given by nurse. Patient tolerated Injection well, in NAD and no reactions noted. Medication supplied by [facility]. Yuliana Bagley RN documented in this encounter [facility] 01-26-2023 Miscellaneous Notes CD/REPORT READY FOR PUBLIC INFORMATION COORDINATOR AT [facility] RADIOLOGY FM FOR PT Pt requesting disc of ct taken on 01/23 Lalitha Ramos January 23, 2023 11:32 AM documented in this encounter [facility] 01-23-2023 Note HNO ID: [id number] Author: Becky Reno RT(R) Service: ? Author Type: Case Advocate Type: Progress Notes Filed: 01/23/2023 3:17 PM [...] RT Aaron(R) January 23, 2023 3:17 PM [facility] 01-19-2023 Note HNO ID: [id number] Author: Jamie Bull MD Service: ? Author [...] Question 05/30/2015 10/ (more content not included)... [facility] 01-19-2023 History of Present illness Narrative SPINE [...] me: No additional images reviewed today ASSESSMENT/PLAN (S22.102M) Closed stable burst fracture of third thoracic vertebra with routine healing, subsequent encounter (primary encounter diagnosis) (M48.02) Spinal stenosis of cervical region (Z98.1) Arthrodesis status Yara Loya will continue with medical management [...] Past Histories independently gathered by the clinical respiratory support technician and the remaining scribed note accurately describes my personal service to the patient. The documentation for this note was completed by Genna Zee, AA Student acting as scribe for Jamie Bull MD. January 19, 2023 10:22 AM. I agree with the operative note independently gathered by the clinical respiratory support technician and the remaining scribed note accurately describes my personal service to the patient. SIGNATURE: Jamie Bull MD PATIENT NAME: Yara Loya DATE: January 19, 2023 TIME: 10:22 AM PAGER: documented in this encounter [facility] 01-19-2023 Nurse Note The patient is here for an injection of Evenity Injection #4 of 12 Dose: 210 mg (105 mg/1.17 mL X2). Route: Subcutaneous Lot# [id number] Expiration date 01/31/2025 ND: 11294-392-09 Given without incident. Site: Right arm present [...] and no reactions noted. Medication supplied by [facility]. Yuliana Bagley RN documented in this encounter [facility] 12-24-2022 Miscellaneous Notes Patient scheduled her #4 Evenity Injection for 01/19/2023. Closed Patient called back, state's she has COVID and will call back to reschedule when she is feeling better. Keep open. Patient missed her # 4 Evenity Injection yesterday and did not call or reschedule as of yet. Called patient's home, left voice message to call office at [phone], and ask to speak to the nurse. Also, sent patient a [employer] message. documented in this encounter [facility] 12-16-2022 Miscellaneous Notes Noted. Thank you. Patient called back stating she has COVID and is not feeling well. Patient will call back when she is feeling better to reschedule her injection documented in this encounter [facility] 11-13-2022 Nurse Note The patient is here for an injection of Evenity Injection #3 of 12 Dose: 210 mg (105 mg/1.17 mL X2). Route: Subcutaneous Lot# [id number] Expiration date 01/31/2025 [facility]: 18111-937-18 Given without incident. Site: Right arm present [...] supplied by [facility]. Lyric So RN documented in this encounter [facility] 10-24-2022 Miscellaneous Notes Will forward for review. Patient calling asking for results of Xray dont one 10/20. She also wants to know if she can get a referral to another neurosurgeon closer to home in [place]. States that she has seen him before and was the one that did her first surgery. She would like to get a second opinion with him again but they are asking for a referral. documented in this encounter [facility] 10-20-2022 Note HNO ID: [id number] Author: LUKE Jessica Service: Radiology Author Type: [...] LUKE Jessica October 20, 2022 9:11 AM [facility] 10-20-2022 History of Present illness Narrative Radiology Service Progress Note PATIENT NAME: Yara [...] LUKE Jessica October 20, 2022 9:11 AM documented in this encounter [facility] 10-20-2022 History of Present illness Narrative SPINE [...] at 8:51 AM. documented in this encounter [facility] 09-10-2022 Nurse Note The patient is here for an injection of Evenity Injection #1 of 12 Dose: 210 mg (105 mg/1.17 mL X2). Route: Subcutaneous Lot# [id number] Expiration date 10/2024 [facility]: 57710-612-91 Given without incident. Site: left arm Dr. Monet present in clinic at time of injection. [...] Yuliana Bagley RN documented in this encounter [facility] 09-10-2022 Instructions Leslie Monet MD - 09/10/2022 11:13 AM EDT - Stop the Fosmax - We will start a new medication for the osteoporosis called Evenity injection every month - I will see you in 6 months with a blood test few days prior to the appointment. Please stop the biotin 5 days before doing the test documented in this encounter [facility] 09-10-2022 History of Present illness Narrative [...] 12/14/14 DISCECTOMY ANT DCMPRN CORD CERVICAL 1 [facility] 12/14/14 DISCECTOMY ANT DCMPRN CORD CERVICAL EA [facility] 12/14/14 HEMORRHOID SURGERY HX 2013 PAST [...] reviewed, confirmed, and/or updated by me (Leslie Monet MD) on 09/10/2022 Medical Decision Making: Problems: Moderate: New problem with uncertain prognosis and 1+ chronic illnesses with change Data: Unique test result(s) reviewed: 3+ Unique test(s) ordered: 3+ Risk: Moderate: Drug management and Moderate risk from testing/treatment Medical Decision Making Level: 4 - Moderate This note was created using PeekYou dictation software. You may find errors that were missed during proofreading. They are purely unintentional and if there are any concerns regarding this dictation, please do not hesitate to call the dictating provider for clarification. Leslie Monet MD documented in this encounter [facility] 08-26-2022 History of Present illness Narrative HISTORY [...] which included preparing to see the patient, hgwk-ns-xhgm patient care, completing clinical documentation, obtaining and/or reviewing separately obtained history, counseling and educating the patient/family/caregiver, ordering medications, tests, or procedures, independently interpreting results (not separately reported), and communicating results to the patient/family/caregiver. Electronically Signed: Wisam Mills MD August 26, 2022 11:22 AM documented in this encounter [facility] 08-14-2022 Miscellaneous Notes Mailed patient letter about not answering phone and attached providers message. CLOSED 3rd attempt: Called patients home and left VM to call back office at [phone]. Please give message below. Sending mychart message in case she will check it that way. Called patient's home/cell# at [phone] left voice message to call office at [phone], and ask to speak to the nurse. Called patients number and left VM to call back office at [phone]. Please give message below. ----- Message from Leslie Monet MD sent at 08/05/2022 2:16 PM EDT ----- If you could please call this patient to let her know that one of the tests called protein electrophoresis is abnormal, and she should see the hematology clinic to do more evaluation for that. It is a screening test for some blood conditions The referral is placed. They have 2 numbers on their website [phone] or [phone] if you could give both to her I will see her next month as planned Thank you H documented in this encounter [facility] 07-31-2022 History of Present illness Narrative Radiology Service Progress Note PATIENT NAME: Yara [...] RT Siddhartha(R) July 31, 2022 8:39 AM documented in this encounter [facility] 07-23-2022 Instructions Leslie Monet MD - 07/23/2022 11:19 AM EDT - [...] treat osteoporosis in your case: Please visit [email or web address] to learn more about this medication Teriparatide Pen Injector (DAILY INJECTION) OctapolyeCYPHER Uses For bone strength. Instructions This medicine [...] medicines you take. Include both prescription and bsav-yoq-oxhmblm medicines. Also tell them about any vitamins, [...] this medicine. Abaloparatide Pen Injector (DAILY INJECTION) [employer] Uses For bone strength. Instructions This medicine [...] medicines you take. Include both prescription and wmor-puq-mbzcotn medicines. Also tell them about any vitamins, [...] medical help quickly. documented in this encounter [facility] 07-23-2022 History of Present illness Narrative Images from the original note were not included. ENDOCRINOLOGY CLINIC NOTE Reason for visit Yara Loya is a 71 year old female with fibromyalgia, RA seen in consultation for evaluation and discussion of treatment options for low bone density. Consult has been requested by [facility] She had surgeries for spinal stenosis and sees neurosurgery. Cervical and thoracic MRI in 3.2023 showed stenosis and chronic T3 compression fracture. [...] 12/14/14 DISCECTOMY ANT DCMPRN CORD CERVICAL 1 [facility] 12/14/14 DISCECTOMY ANT DCMPRN CORD CERVICAL EA [facility] 12/14/14 HEMORRHOID SURGERY HX 2013 PAST [...] with more than 50% of the total vaoj-wm-afcq time of the visit in counseling / coordination of care. This note was created using [employer] dictation software. You may find errors that were missed during proofreading. They are purely unintentional and if there are any concerns regarding this dictation, please do not hesitate to call the dictating provider for clarification. Leslie Monet MD documented in this encounter [facility] 06-23-2022 History of Present illness Narrative SPINE [...] 12/14/14 DISCECTOMY ANT DCMPRN CORD CERVICAL 1 [facility] 12/14/14 DISCECTOMY ANT DCMPRN CORD CERVICAL EA [facility] 12/14/14 HEMORRHOID SURGERY HX 2014 PAST SURGICAL HISTORY OF 2000 back, done by ?DR. Kellye? TONSILLECTOMY & ADENOIDECTOMY <AGE 12 FAMILY HISTORY [...] June 23, 2022 TIME: 2:01 PM PAGER: I, Jolene Mcnair, attest that this document has been prepared under the direction and in the presence of Jamie Bull MD on June 23, 2022 at 2:48 PM. documented in this encounter [facility] 06-04-2022 Instructions Adrián Pulido PA-C - 06/04/2022 1:20 PM EST How to review your options for a [facility] physician referral: Go to [email or web address] and look for the Find a Doctor tab right underneath the [facility] logo in the top left corner of the page. Click on that and then enter spine surgery in that search field. There should be 18 or 20 different physicians in the [facility] area for you to review their credentials, locations of practice, educational background, and specialties. Call [phone] to schedule. Look for someone who works with thoracic spine and fractures. documented in this encounter [facility] 06-04-2022 History of Present illness Narrative Adrián [facility] [address] [place] [address] Dear Francisco Ferrari MD, Yara Loya is [...] been by Dr. Denny Monk here at [facility] ROS: Since last visit-patient DENIES fevers, [...] had had some studies done outside of [facility] in the interval between 2015 and 2021. We uploaded those into [employer] and copied off the reports for scanning [...] hold her studies that were uploaded to [employer] today. She will carry these to her neurosurgical appointment in case there is any question or discrepancy with what has uploaded into [employer] at that point in time. Time spent: 45 minutes today with this patient visit. This includes [id number] time, review of chart records regarding conservative care history, spine-pertinent imaging, and communication/care coordination with referring provider, problem-specific history-taking and counseling/education regarding treatment options. This document has been created with the use of voice recognition technology. It may contain inaccuracies: (e.g. misspellings, inaccurate syntax or word sense) that have escaped review. Mecca Hester MA documented in this encounter [facility] 05-31-2022 Note HNO ID: [id number] Author: Joan Sun RT(R) Service: Radiology Author [...] DATE: May 31, 2022 TIME: 2:36 PM [facility] 05-31-2022 History of Present illness [...] TIME: 2:36 PM documented in this encounter [facility] 04-17-2022 History of Present illness Narrative Radiology Service Progress Note PATIENT NAME: Yara [...] LUKE Jessica April 17, 2022 10:50 AM documented in this encounter [facility] 04-17-2022 Instructions Adrián Pulido PA-C - 04/17/2022 10:00 AM EST documented in this encounter [facility] 04-17-2022 History of Present illness Narrative Images from the original note were not included. Adrián Pulido PA-C [facility] [address] [id number] 04/17/2022 ASSESSMENT AND PLAN: Assessment : Encounter [...] afterward and had done treatment locally in [place] by pain management with Dr. Christianson where she had injections. She did not bring any records to know specifically what type of injections were done but she reported no help at all from them. She won't go back to [place] because it's too far to drive. [place] is the only thing that seems to give her some help. She reports having had some studies regarding her neck in the past few months in [place], but there is nothing available for review in [facility]. She has hyperreflexia and appearance of [...] today with this patient visit. This includes [id number] time, review of chart records regarding conservative care history, spine-pertinent imaging, and communication/care coordination with referring provider, problem-specific history-taking and counseling/education regarding treatment options. cc: No referring provider defined for this encounter. Phone: N/A Fax: Results of consultation to be transmitted via electronic medical record for those providers who practice within [facility] or with access to [place] via [facility], or via letter. ____ ################################## ################################## #### CHIEF COMPLAINT: Patient is here for the neck pain, right shoulder, pain goes to underarm. Has the neck pain for years but in Julywh right side pain started. Level of the pain is at 8/10. Pain radiates down to her right side, right leg. 2 months ago she had cervical injection, in [place], didn't help. HPI: See Discussiuon above History of bowel or bladder dysfunction (not IBS or constipation): No History of previous spinal surgery: Yes, performed in 2014, [address] Monk at [facility]. 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 Spoke with patient, advised Dr. Cao is only at [facility] on Fridays and offered virtual visit, patient [...] and issues taking her medication. Please advise, Edgardo Brito documented in this encounter [facility] 02-28-2022 Miscellaneous Notes Spoke with Bev at [facility] and informed her of Dr. Cao's message. Faxing encounter over to Dr. Mccain's office Attn Bev @ [phone] Please call them and advise that neurology does not provide clearance for surgery There is no literature guiding this topic. If there is a specific question, please have the surgeon reach out to me directly to discuss. Received demographics and surgery clearance form from [facility]. Placed in tray for review and signature. documented in this encounter [facility] 02-28-2022 History of Present illness Narrative [...] Care Visit completed when applicable. DO Sophia Bob, EMG Tech documented in this encounter [facility] 02-07-2022 Instructions Mayur Cao MD - 02/07/2022 11:11 AM EDT Increase your dose of gabapentin to 300 mg twice a day (morning and night). Please call the [facility] call center at [phone] to make your EMG testing appointment at one of the following locations: [facility] and [facility] Please make sure that your test is scheduled at one of the above locations. documented in this encounter [facility] 02-07-2022 History of Present illness Narrative HPI: This is Ms. Yara Loya a 71 year old female from who presents to the [facility] neurology department with a chief complaint [...] any reason that you can't have surgery Shot[employer] Equipment Operator started her on prednisone 10 mg daily, improved R knee pain. Also helped right shoulder/side pain Said she could only take short term d/t osteoporosis. Hx of cervical spine fusion x 2, first surgery 8 years ago at [facility], last surgery about 4 years ago; in [place] at [facility] Hx of lumbar spine fusion 2-3 years ago [facility] in [place] Hx of bilateral hip replacement, most recent [...] RTC 3 months. documented in this encounter [facility] 01-09-2022 Miscellaneous Notes Called patient to schedule from referral. Patient not scheduling at this time because she is seeing someone else. May call back in the future to schedule with Dr. Cao at the [facility] documented in this encounter [facility] 08-03-2013 History of Past i llness Narrative Problem Noted Date Resolved Date Hemorrhoids 08/03/2013 09/20/2013 Last Assessment & Plan: Patient had her hemorrhoidectomy done and she feels a lot of pain relief. Pruritus ani 04/20/2013 09/20/2013 documented as of this encounter (statuses as of 01/09/2022) [facility] History of Past illness Narrative* Problem Noted Date Resolved Date Hemorrhoids 08/03/2013 09/20/2013 Last Assessment & Plan: Patient had her hemorrhoidectomy done and she feels a lot of pain relief. Pruritus ani 04/20/2013 09/20/2013 documented as of this encounter (statuses as of 02/07/2022) [facility] History of Past illness Narrative* Problem Noted Date Resolved Date Hemorrhoids 08/03/2013 09/20/2013 Last Assessment & Plan: Patient had her hemorrhoidectomy done and she feels a lot of pain relief. Pruritus ani 04/20/2013 09/20/2013 documented as of this encounter (statuses as of 02/28/2022) [facility] History of Past illness Narrative* Problem Noted Date Resolved Date Hemorrhoids 08/03/2013 09/20/2013 Last Assessment & Plan: Patient had her hemorrhoidectomy done and she feels a lot of pain relief. Pruritus ani 04/20/2013 09/20/2013 documented as of this encounter (statuses as of 02/28/2022) [facility] History of Past illness Narrative* Problem Noted Date Resolved Date Hemorrhoids 08/03/2013 09/20/2013 Last Assessment & Plan: Patient had her hemorrhoidectomy done and she feels a lot of pain relief. Pruritus ani 04/20/2013 09/20/2013 documented as of this encounter (statuses as of 03/04/2022) [facility] History of Past illness Narrative* Problem Noted Date Resolved Date Hemorrhoids 08/03/2013 09/20/2013 Last Assessment & Plan: Patient had her hemorrhoidectomy done and she feels a lot of pain relief. Pruritus ani 04/20/2013 09/20/2013 documented as of this encounter (statuses as of 03/13/2022) [facility] History of Past illness Narrative* Problem Noted Date Resolved Date Hemorrhoids 08/03/2013 09/20/2013 Last Assessment & Plan: Patient had her hemorrhoidectomy done and she feels a lot of pain relief. Pruritus ani 04/20/2013 09/20/2013 documented as of this encounter (statuses as of 04/17/2022) [place] [address]-02-2014 History of Past illness Narrative* Problem Noted Date Resolved Date Hemorrhoids 08/03/2013 09/20/2013 Last Assessment & Plan: Patient had her hemorrhoidectomy done and she feels a lot of pain relief. Pruritus ani 04/20/2013 09/20/2013 documented as of this encounter (statuses as of 06/01/2022) [facility] History of Past illness Narrative* Problem Noted Date Resolved Date Hemorrhoids 08/03/2013 09/20/2013 Last Assessment & Plan: Patient had her hemorrhoidectomy done and she feels a lot of pain relief. Pruritus ani 04/20/2013 09/20/2013 documented as of this encounter (statuses as of 06/01/2022) [facility] History of Past illness Narrative* Problem Noted Date Resolved Date Hemorrhoids 08/03/2013 09/20/2013 Last Assessment & Plan: Patient had her hemorrhoidectomy done and she feels a lot of pain relief. Pruritus ani 04/20/2013 09/20/2013 documented as of this encounter (statuses as of 06/04/2022) [facility] History of Past illness Narrative* Problem Noted Date Resolved Date Hemorrhoids 08/03/2013 09/20/2013 Last Assessment & Plan: Patient had her hemorrhoidectomy done and she feels a lot of pain relief. Pruritus ani 04/20/2013 09/20/2013 documented as of this encounter (statuses as of 06/24/2022) [place] [address]02-2014 History of Past illness Narrative* Problem Noted Date Resolved Date Hemorrhoids 08/03/2013 09/20/2013 Last Assessment & Plan: Patient had her hemorrhoidectomy done and she feels a lot of pain relief. Pruritus ani 04/20/2013 09/20/2013 documented as of this encounter (statuses as of 06/25/2022) [place] [address]2014 History of Past illness Narrative* Problem Noted Date Resolved Date Hemorrhoids 08/03/2013 09/20/2013 Last Assessment & Plan: Patient had her hemorrhoidectomy done and she feels a lot of pain relief. Pruritus ani 04/20/2013 09/20/2013 documented as of this encounter (statuses as of 07/23/2022) [place] [address]2014 History of Past illness Narrative* Problem Noted Date Resolved Date Hemorrhoids 08/03/2013 09/20/2013 Last Assessment & Plan: Patient had her hemorrhoidectomy done and she feels a lot of pain relief. Pruritus ani 04/20/2013 09/20/2013 documented as of this encounter (statuses as of 08/05/2022) [facility] History of Past illness Narrative* Problem Noted Date Resolved Date Hemorrhoids 08/03/2013 09/20/2013 Last Assessment & Plan: Patient had her hemorrhoidectomy done and she feels a lot of pain relief. Pruritus ani 04/20/2013 09/20/2013 documented as of this encounter (statuses as of 08/15/2022) [place] [address]2014 History of Past illness Narrative* Problem Noted Date Resolved Date Hemorrhoids 08/03/2013 09/20/2013 Last Assessment & Plan: Patient had her hemorrhoidectomy done and she feels a lot of pain relief. Pruritus ani 04/20/2013 09/20/2013 documented as of this encounter (statuses as of 08/28/2022) [place] [address]2014 History of Past illness Narrative* Problem Noted Date Resolved Date Hemorrhoids 08/03/2013 09/20/2013 Last Assessment & Plan: Patient had her hemorrhoidectomy done and she feels a lot of pain relief. Pruritus ani 04/20/2013 09/20/2013 documented as of this encounter (statuses as of 09/10/2022) [facility] History of Past illness Narrative* Problem Noted Date Resolved Date Hemorrhoids 08/03/2013 09/20/2013 Last Assessment & Plan: Patient had her hemorrhoidectomy done and she feels a lot of pain relief. Pruritus ani 04/20/2013 09/20/2013 documented as of this encounter (statuses as of 09/10/2022) [facility] History of Past illness Narrative* Problem Noted Date Resolved Date Hemorrhoids 08/03/2013 09/20/2013 Last Assessment & Plan: Patient had her hemorrhoidectomy done and she feels a lot of pain relief. Pruritus ani 04/20/2013 09/20/2013 documented as of this encounter (statuses as of 10/20/2022) [facility] History of Past illness Narrative* Problem Noted Date Resolved Date Hemorrhoids 08/03/2013 09/20/2013 Last Assessment & Plan: Patient had her hemorrhoidectomy done and she feels a lot of pain relief. Pruritus ani 04/20/2013 09/20/2013 documented as of this encounter (statuses as of 10/27/2022) [facility] History of Past illness Narrative* Problem Noted Date Diagnosed Date Resolved Date Hemorrhoids 08/03/2013 09/20/2013 Last Assessment & Plan: Patient had her hemorrhoidectomy done and she feels a lot of pain relief. Pruritus ani 04/20/2013 09/20/2013 documented as of this encounter (statuses as of 11/13/2022) [facility] History of Past illness Narrative* Problem Noted Date Diagnosed Date Resolved Date Hemorrhoids 08/03/2013 09/20/2013 Last Assessment & Plan: Patient had her hemorrhoidectomy done and she feels a lot of pain relief. Pruritus ani 04/20/2013 09/20/2013 documented as of this encounter (statuses as of 12/17/2022) [facility] History of Past illness Narrative* Problem Noted Date Diagnosed Date Resolved Date Hemorrhoids 08/03/2013 09/20/2013 Last Assessment & Plan: Patient had her hemorrhoidectomy done and she feels a lot of pain relief. Pruritus ani 04/20/2013 09/20/2013 documented as of this encounter (statuses as of 12/24/2022) [facility] History of Past illness Narrative* Problem Noted Date Diagnosed Date Resolved Date Hemorrhoids 08/03/2013 09/20/2013 Last Assessment & Plan: Patient had her hemorrhoidectomy done and she feels a lot of pain relief. Pruritus ani 04/20/2013 09/20/2013 documented as of this encounter (statuses as of 01/19/2023) [facility] History of Past illness Narrative* Problem Noted Date Diagnosed Date Resolved Date Hemorrhoids 08/03/2013 09/20/2013 Last Assessment & Plan: Patient had her hemorrhoidectomy done and she feels a lot of pain relief. Pruritus ani 04/20/2013 09/20/2013 documented as of this encounter (statuses as of 01/20/2023) [facility] History of Past illness Narrative* Problem Noted Date Diagnosed Date Resolved Date Hemorrhoids 08/03/2013 09/20/2013 Last Assessment & Plan: Patient had her hemorrhoidectomy done and she feels a lot of pain relief. Pruritus ani 04/20/2013 09/20/2013 documented as of this encounter (statuses as of 02/18/2023) [facility] History of Past illness Narrative* Problem Noted Date Diagnosed Date Resolved Date Hemorrhoids 08/03/2013 09/20/2013 Last Assessment & Plan: Patient had her hemorrhoidectomy done and she feels a lot of pain relief. Pruritus ani 04/20/2013 09/20/2013 documented as of this encounter (statuses as of 02/25/2023) [facility] History of Past illness Narrative* Problem Noted Date Diagnosed Date Resolved Date Hemorrhoids 08/03/2013 09/20/2013 Last Assessment & Plan: Patient had her hemorrhoidectomy done and she feels a lot of pain relief. Pruritus ani 04/20/2013 09/20/2013 documented as of this encounter (statuses as of 03/13/2023) [facility] History of Past illness Narrative* Problem Noted Date Diagnosed Date Resolved Date Hemorrhoids 08/03/2013 09/20/2013 Last Assessment & Plan: Patient had her hemorrhoidectomy done and she feels a lot of pain relief. Pruritus ani 04/20/2013 09/20/2013 documented as of this encounter (statuses as of 03/14/2023) [facility] History of Past illness Narrative* Problem Noted Date Diagnosed Date Resolved Date Hemorrhoids 08/03/2013 09/20/2013 Last Assessment & Plan: Patient had her hemorrhoidectomy done and she feels a lot of pain relief. Pruritus ani 04/20/2013 09/20/2013 documented as of this encounter (statuses as of 03/14/2023) [facility] History of Past illness Narrative* Problem Noted Date Diagnosed Date Resolved Date Hemorrhoids 08/03/2013 09/20/2013 Last Assessment & Plan: Patient had her hemorrhoidectomy done and she feels a lot of pain relief. Pruritus ani 04/20/2013 09/20/2013 documented as of this encounter (statuses as of 03/23/2023) [facility] of Past illness Narrative* Problem Noted Date Diagnosed Date Resolved Date Hemorrhoids 08/03/2013 09/20/2013 Last Assessment & Plan: Patient had her hemorrhoidectomy done and she feels a lot of pain relief. Pruritus ani 04/20/2013 09/20/2013 documented as of this encounter (statuses as of 03/24/2023) [facility] of Past [facility] Narrative* Problem Noted Date Diagnosed Date Resolved Date Hemorrhoids 08/03/2013 09/20/2013 Last Assessment & Plan: Patient had her hemorrhoidectomy done and she feels a lot of pain relief. Pruritus ani 04/20/2013 09/20/2013 documented as of this encounter (statuses as of 03/24/2023) [facility] of Past [facility] Narrative* Problem Noted Date Diagnosed Date Resolved Date Hemorrhoids 08/03/2013 09/20/2013 Last Assessment & Plan: Patient had her hemorrhoidectomy done and she feels a lot of pain relief. Pruritus ani 04/20/2013 09/20/2013 documented as of this encounter (statuses as of 04/23/2023) [facility] of [facility] Narrative* Problem Noted Date Diagnosed Date Resolved Date Hemorrhoids 08/03/2013 09/20/2013 Last Assessment & Plan: Patient had her hemorrhoidectomy done and she feels a lot of pain relief. Pruritus ani 04/20/2013 09/20/2013 documented as of this encounter (statuses as of 07/21/2023) [facility] of [facility] Narrative* Problem Noted Date Diagnosed Date Resolved Date Hemorrhoids 08/03/2013 09/20/2013 Last Assessment & Plan: Patient had her hemorrhoidectomy done and she feels a lot of pain relief. Pruritus ani 04/20/2013 09/20/2013 documented as of this encounter (statuses as of 07/23/2023) [facility] Radiculopathy, cervical region- Primary Brachial [...] structure, unspecified site Localized osteoporosis ([place]) Hyperparathyroidism ([facility]) Hyperparathyroidism, unspecified documented in this encounter [facility] [...] protein electrophoresis- Primary [facility] 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 [facility] Diagnosis Closed stable burst fracture of third thoracic vertebra with routine healing, subsequent encounter- Primary [facility] Diagnosis 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- Primary [facility] Diagnosis Age-related osteoporosis with current pathological fracture with routine healing, subsequent encounter- Primary [facility]* Diagnosis Cervical spondylosis without myelopathy- Primary [facility] Diagnosis Anemia, unspecified type- Primary [facility]* Diagnosis Age-related osteoporosis with current pathological fracture with routine healing, subsequent encounter- Primary Hyperparathyroidism (HCC) Hyperparathyroidism, unspecified [facility]* Diagnosis Osteoporosis- Primary Osteoporosis, unspecified DJD (degenerative joint disease) Osteoarthrosis, unspecified whether generalized or localized, unspecified site Back pain, lumbosacral Lumbago Eczema- Primary Contact dermatitis and other eczema, due to unspecified cause Arthritis Arthropathy, unspecified, site unspecified Screening mammogram for high-risk patient- Primary Eczema Contact dermatitis and other eczema, due to unspecified cause Arthritis Arthropathy, unspecified, site unspecified Hemorrhoids Unspecified hemorrhoids without mention of complication Fibromyalgia Mylagia and myositis, unspecified Cervicalgia- Primary Tobacco abuse disorder Tobacco use disorder Fibromyalgia Mylagia and myositis, unspecified Hyperlipidemia Other and unspecified hyperlipidemia Osteoporosis Osteoporosis, unspecified Arthritis Arthropathy, unspecified, site unspecified Closed stable burst fracture of third thoracic vertebra with routine healing, subsequent encounter documented in this encounter [facility]* Diagnosis Osteoporosis- Primary Osteoporosis, unspecified DJD (degenerative joint disease) Osteoarthrosis, unspecified whether generalized or localized, unspecified site Back pain, lumbosacral Lumbago Eczema- Primary Contact dermatitis and other eczema, due to unspecified cause Arthritis Arthropathy, unspecified, site unspecified Screening mammogram for high-risk patient- Primary Eczema Contact dermatitis and other eczema, due to unspecified cause Arthritis Arthropathy, unspecified, site unspecified Hemorrhoids Unspecified hemorrhoids without mention of complication Fibromyalgia Mylagia and myositis, unspecified Cervicalgia- Primary Tobacco abuse disorder Tobacco use disorder Fibromyalgia Mylagia and myositis, unspecified Hyperlipidemia Other and unspecified hyperlipidemia Osteoporosis Osteoporosis, unspecified Arthritis Arthropathy, unspecified, site unspecified Age-related osteoporosis with current pathological fracture with routine healing, subsequent encounter documented in this encounter [facility] note* Diagnosis Osteoporosis- Primary Osteoporosis, unspecified DJD (degenerative joint disease) Osteoarthrosis, unspecified whether generalized or localized, unspecified site Back pain, lumbosacral Lumbago Eczema- Primary Contact dermatitis and other eczema, due to unspecified cause Arthritis Arthropathy, unspecified, site unspecified Screening mammogram for high-risk patient- Primary Eczema Contact dermatitis and other eczema, due to unspecified cause Arthritis Arthropathy, unspecified, site unspecified Hemorrhoids Unspecified hemorrhoids without mention of complication Fibromyalgia Mylagia and myositis, unspecified Cervicalgia- Primary Tobacco abuse disorder Tobacco use disorder Fibromyalgia Mylagia and myositis, unspecified Hyperlipidemia Other and unspecified hyperlipidemia Osteoporosis Osteoporosis, unspecified Arthritis Arthropathy, unspecified, site unspecified Cervicalgia Arthrodesis status Adverse effect of treatment, initial encounter documented in this encounter [facility] for referral (narrative)* Outpatient Procedure (Routine) - Pending Review Specialty Diagnoses / Procedures Referred By Sophia leonardo Referred To Contact [facility] Diagnoses Radiculopathy, cervical region Procedures EMG(NEURO/NI) NERVE CONDUCTION STUDIES 9-10 STUDIES Mayur Cao MD [address] [place] [address] 1 [place] [address] [facility] [place] [address] [place] [address] Referral ID Status Reason Start Date Expiration Date Visits Requested Visits Authorized [id number] Pending Review Auto-Generat ed Referral 02/07/2022 02/07/2023 1 1 [facility] for referral (narrative)* Diagnostic Procedure Only (Routine) - Closed Specialty Diagnoses / Procedures Referred By Sophia leonardo Referred To Contact XR IMAGING Diagnoses Cervicalgia Arthrodesis status Adverse effect of treatment, initial encounter Procedures XR CERV GENERAL 2V AP/LAT RADEX SPINE CERVICAL 2 OR 3 VIEWS Adrián Pulido PA-C [address] [place] [address] Xr Imaging Referral ID Status Reason Start Date Expiration Date V isits Requested Visits Authorized [id number] Closed Auto-Generate d Referral 04/17/2022 05/17/2023 1 1 * MRI/CT (Routine) - Authorized Specialty Diagnoses / Procedures Referred By Contac t Referred To Contact MR IMAGING Diagnoses Arthrodesis status Adverse effect of treatment, initial encounter Procedures MRI THORACIC SPINE WO/W IVCON MRI SPINAL CANAL THORACIC W/O & W/CONTR Adrián Nolasco PA-C [address] [place] [address] Mr Imaging Referral ID Status Reason Start Date Expiration Date Visits Requested Visits Authorized [id number] Authorized Auto-Generat ed Referral 2 05/17/2023 1 1 * MRI/CT (Routine) - Authorized Specialty Diagnoses / Procedures Referred By Contac t Referred To Contact MR IMAGING Diagnoses Cervicalgia Arthrodesis status Adverse effect of treatment, initial encounter Procedures MRI CERVICAL SPINE WO/W IVCON MRI SPINAL CANAL CERVICAL W/O & W/CONTR Adrián Nolasco PA-C [address] [place] [address] Mr Imaging Referral ID Status Reason Start Date Expiration Date Visits Requested Visits Authorized [id number] Authorized Auto-Generat ed Referral 2 05/17/2023 1 1 * - Authorized Specialty Diagnoses / Procedures Referred By Contac t Referred To Contact Diagnoses Cervicalgia Arthrodesis status Adverse effect of treatment, initial encounter Procedures CONSULT TO PHYSICAL THERAPY Adrián Pulido PA-C [address] [place] [address] Referral ID Status Reason Start Date Expiration Date V isits Requested Visits Authorized [id number] Authorized 04/17/2022 07/16/2022 99 99 * Diagnostic Procedure Only (Routine) - Closed Specialty Diagnoses / Procedures Referred By Contac t Referred To Contact XR IMAGING Diagnoses Cervicalgia Arthrodesis status Adverse effect of treatment, initial encounter Procedures XR CERV OTHER 4V AP/LAT/FLX/EXT RADEX SPINE CERVICAL 4 OR 5 VIEWS Adrián Pulido PA-C [address] [place] [address] Xr Imaging Referral ID Status Reason Start Date Expiration Date V isits Requested Visits Authorized [id number] Closed Auto-Generate d Referral 04/17/2022 05/17/2023 1 1 [facility] for referral (narrative)* Diagnostic Procedure Only (Routine) - Pending Review Specialty Diagnoses / Procedures Referred By Contac t Referred To Contact XR IMAGING Diagnoses Age-related osteoporosis with current pathological fracture with routine healing, subsequent encounter Procedures XR LUMBAR GENERAL 3V AP/LAT/L5-S1 RADEX SPINE LUMBOSACRAL 2/3 VIEWS Leslie Monet MD [address] [place] [address] Xr Imaging Referral ID Status Reason Start Date Expiration Date Visits Requested Visits Authorized [id number] Pending Review Auto-Generat ed Referral 07/23/2022 08/22/2023 1 1 T [facility] for referral (narrative)* Diagnostic Procedure Only (Routine) - Pending Review Specialty Diagnoses / Procedures Referred By Contac t Referred To Contact XR IMAGING Diagnoses Age-related osteoporosis with current pathological fracture with routine healing, subsequent encounter Other specified disorders of bone density and structure, unspecified site Procedures DXA-FOREARM SKELETON DXA BONE DENSITY STUDY 1/>SITES APPENDICLR Leslie Martini MD [address] [place] [address] Xr Imaging Referral ID Status Reason Start Date Expiration Date Visits Requested Visits Authorized [id number] Pending Review Auto-Generat ed Referral 10/17/2022 10/10/2023 1 1 [facility] for referral (narrative)* Diagnostic Procedure Only (Routine) - Closed Specialty Diagnoses / Procedures Referred By Contac t Referred To Contact XR IMAGING Diagnoses Closed stable burst fracture of third thoracic vertebra with routine healing, subsequent encounter Procedures XR SHOULDER LIMITED 2V AP/TRUE AP LEFT RADEX SHOULDER COMPLETE MINIMUM 2 [place] [address] [place] [place] [id number] Xr Imaging Referral ID Status Reason Start Date Expiration Date V isits Requested Visits Authorized [id number] Closed Auto-Generate d Referral 10/20/2022 11/19/2023 1 1 * Medication Prior Authorization - Authorized Specialty Diagnoses / Procedures Referred By Contac [place] [address] [facility] [place] [address] Referral ID Status Reason Start Date Expiration Date V isits Requested Visits Authorized [id number] Authorized 09/20/2022 10/20/2023 1 1 [facility] for referral (narrative)* Diagnostic Procedure Only (Routine) - Pending Review Specialty Diagnoses / Procedures Referred By Contac t Referred To Contact XR IMAGING Diagnoses Age-related osteoporosis with current pathological fracture with routine healing, subsequent encounter Hyperparathyroidism (HCC) Procedures DXA-AXIAL SKELETON Leslie Monet MD [facility] [place] [address] Xr Imaging [facility] Referral ID Status Reason Start Date Expiration Date Visits Requested Visits Authorized [id number] Pending Review Auto-Generat ed Referral 09/01/2024 11/25/2024 1 1 [facility] for referral (narrative)* Diagnostic Procedure Only (Routine) - Closed Specialty Diagnoses / Procedures Referred By Contac t Referred To Contact XR IMAGING Diagnoses Closed stable burst fracture of third thoracic vertebra with routine healing, subsequent encounter Procedures XR SHOULDER LIMITED 2V AP/TRUE AP LEFT RADEX SHOULDER COMPLETE MINIMUM 2 [place] [address] [place] [address] [place] [address] Referral ID Status Reason Start Date Expiration Date V isits Requested Visits Authorized [id number] Closed Auto-Generate d Referral 10/20/2022 11/19/2023 1 1 [facility] for referral (narrative)* Diagnostic Procedure Only (Routine) - Closed Specialty Diagnoses / Procedures Referred By Contac t Referred To Contact XR IMAGING Diagnoses Age-related osteoporosis with current pathological fracture with routine healing, subsequent encounter Procedures XR LUMBAR GENERAL 3V AP/LAT/L5-S1 RADEX SPINE LUMBOSACRAL 2/3 VIEWS Leslie Monet MD [address] [place] [id number] [place] [address] Referral ID Status Reason Start Date Expiration Date V isits Requested Visits Authorized [id number] Closed Auto-Generate d Referral 07/23/2022 08/22/2023 1 1 [facility] for referral (narrative)* Diagnostic Procedure Only (Routine) - Closed Specialty Diagnoses / Procedures Referred By Contac t Referred To Contact XR IMAGING Diagnoses Cervicalgia Arthrodesis status Adverse effect of treatment, initial encounter Procedures XR CERV OTHER 4V AP/LAT/FLX/EXT RADEX SPINE CERVICAL 4 OR 5 VIEWS Adrián Pulido PA-C [address] [place] [address] Xr Imaging [facility] Referral ID Status Reason Start Date Expiration Date V isits Requested Visits Authorized [id number] Closed Auto-Generate d Referral 04/17/2022 05/17/2023 1 1 [facility] for visit Narrative* Diagnostic Procedure Only (Routine) - Closed Specialty Diagnoses / Procedures Referred By Contac t Referred To Contact XR IMAGING Diagnoses Closed stable burst fracture of third thoracic vertebra with routine healing, subsequent encounter Procedures XR SHOULDER LIMITED 2V AP/TRUE AP LEFT RADEX SHOULDER COMPLETE MINIMUM 2 [place] [address] [place] [address] [place] [address] Referral ID Status Reason Start Date Expiration Date V isits Requested Visits Authorized [id number] Closed Auto-Generate d Referral 10/20/2022 11/19/2023 1 1 [facility] for visit Narrative* Diagnostic Procedure Only (Routine) - Closed Specialty Diagnoses / Procedures Referred By Contac t Referred To Contact XR IMAGING Diagnoses Age-related osteoporosis with current pathological fracture with routine healing, subsequent encounter Procedures XR LUMBAR GENERAL 3V AP/LAT/L5-S1 RADEX SPINE LUMBOSACRAL 2/3 VIEWS Leslie Monet MD [address] [place] [address] [place] [address] Referral ID Status Reason Start Date Expiration Date V isits Requested Visits Authorized [id number] Closed Auto-Generate d Referral 07/23/2022 08/22/2023 1 1 [facility] for visit Narrative* Diagnostic Procedure Only (Routine) - Closed Specialty Diagnoses / Procedures Referred By Contac t Referred To Contact XR IMAGING Diagnoses Cervicalgia Arthrodesis status Adverse effect of treatment, initial encounter Procedures XR CERV GENERAL 2V AP/LAT RADEX SPINE CERVICAL 2 OR 3 VIEWS Adrián Pulido, [place] [address] [place] [address] [place] [address] Referral ID Status Reason Start Date Expiration Date V isits Requested Visits Authorized [id number] Closed Auto-Generate d Referral 04/17/2022 05/17/2023 1 1 [facility] Instructions Instruction Description Start Date Completed [...] THORACIC W/O & W/CONTR Adrián Nolasco PA-C [address] [place] [address] Mr Imaging Referral ID Status Reason Start Date Expiration Date V isits Requested Visits Authorized [id number] Closed Auto-Generate d Referral 04/17/2022 05/17/2023 1 1 Specialty Diagnoses / Procedures Referred By Contac t Referred To Contact MR IMAGING Diagnoses Cervicalgia Arthrodesis status Adverse effect of treatment, initial encounter Procedures MRI CERVICAL SPINE WO/W IVCON MRI SPINAL CANAL CERVICAL W/O & W/CONTR Adrián Nolasco PA-C [address] [place] [address] Mr Imaging Referral ID Status Reason Start Date Expiration Date V isits Requested Visits Authorized [id number] Closed Auto-Generate d Referral 04/17/2022 05/17/2023 1 1 Specialty Diagnoses / Procedures Referred By Contac t Referred To Contact Neurosurgery Diagnoses Fusion of spine of cervicothoracic region Arthrodesis status Adverse effect of treatment, initial encounter Closed stable burst fracture of third thoracic vertebra with routine healing, subsequent encounter Procedures CONSULT TO NEUROSURGERY OFFICE/OUTPATIENT [facility] 60-74 MINUTES Adrián Pulido PA-C [address] [place] [address] Referral ID Status Reason Start Date Expiration Date Visits Requested Visits Authorized [id number] Authorized PCP Requested Referral 06/04/2022 09/02/2022 1 1 Specialty Diagnoses / Procedures Referred By Contac t Referred To Contact Diagnoses Age-related osteoporosis with current pathological fracture with routine healing, subsequent encounter Procedures CONSULT TO ENDO METABOLIC BONE OFFICE/OUTPATIENT [facility] 60-[place] [address] [place] [address] Referral ID Status Reason Start Date Expiration Date Visits Requested Visits Authorized [id number] Authorized PCP Requested Referral 06/23/2022 06/23/2023 1 1 Specialty Diagnoses / Procedures Referred By Contac t Referred To Contact Diagnoses Age-related osteoporosis with current pathological fracture with routine healing, subsequent encounter Abnormal SPEP Procedures CONSULT TO HEMATOLOGY/ONCOLOGY OFFICE/OUTPATIENT [facility] 60-74 MINUTES Leslie Monet MD [address] [place] [address] Referral ID Status Reason Start Date Expiration Date Visits Requested Visits Authorized [id number] Authorized PCP Requested Referral 08/05/2022 08/05/2023 1 1 Specialty Diagnoses / Procedures Referred By Contac t Referred To Contact CT IMAGING Diagnoses Arthrodesis status Procedures CT THORACIC SPINE WO IVCON CT THORACIC SPINE W/[place] [address] [place] [address] [place] [address] Referral ID Status Reason Start Date Expiration Date Visits Requested Visits Authorized [id number] Authorized Auto-Generat ed Referral 01/19/2023 02/18/2024 1 1 Specialty Diagnoses / Procedures Referred By Contac t Referred To Contact CT IMAGING Diagnoses Spinal stenosis of cervical region Procedures CT CERVICAL SPINE WO IVCON CT CERVICAL SPINE W/[place] [address] [place] [address] Ct Imaging [facility] Referral ID Status Reason Start Date Expiration Date Visits Requested Visits Authorized [id number] Authorized Auto-Generat ed Referral 01/19/2023 02/18/2024 1 1 Specialty Diagnoses / Procedures Referred By Contac t Referred To Contact CT IMAGING Diagnoses 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 Procedures CT CHEST W IVCON DIAGNOSTIC COMPUTED TOMOGRAPHY THORAX W/[place] [address] [place] [address] [place] [address] Referral ID Status Reason Start Date Expiration Date Visits Requested Visits Authorized [id number] Authorized Auto-Generat ed Referral 3 03/26/2024 1 1 Specialty Diagnoses / Procedures Referred By Sophia leonardo Referred To Contact CT IMAGING Diagnoses 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 Procedures CT ABD/PEL W IVCON CT ABD & PELVIS W/[place] [address] [place] [address] [place] [address] Referral ID Status Reason Start Date Expiration Date Visits Requested Visits Authorized [id number] Authorized Auto-Generat ed Referral 3 03/26/2024 1 [...] 11:27 AM EDT 210 mg Arm, Right Given 10/13/2022 10:39 AM EDT 210 mg A rm, Right Given 09/10/2022 11:43 AM EDT 210 mg A rm, Left Active Administered Medications - up to [...] 10:20 AM EDT 210 mg Arm, Right Given 11/13/2022 11:27 AM EDT 210 mg A rm, Right Given 10/13/2022 10:39 AM EDT 210 mg A rm, Right Active Administered Medications - up to [...] 10:24 AM EDT 210 mg Arm, Right Given 01/19/2023 10:20 AM EDT 210 mg A rm, Right Given 11/13/2022 11:27 AM EDT 210 mg A rm, Right Active Administered Medications - up to [...] 10:14 AM EST 210 mg Arm, Right Given 02/18/2023 10:24 AM EDT 210 mg A rm, Right Given 01/19/2023 10:20 AM EDT 210 mg A rm, Right Active Administered Medications - up to [...] 10:40 AM EST 210 mg Arm, Right Given 03/23/2023 10:14 AM EST 210 mg A rm, Right Given 02/18/2023 10:24 AM EDT 210 mg A rm, Right Additional Source Comments INFORMATION SOURCE (unrecogn ized section and content) DATE CREATED AUTHOR 01/19/2020 [facility] ([place]) DATE CREATED AUTHOR AUTHOR'S ORGANIZ ATION 05/31/2022 [facility] DATE CREATED AUTHOR AUTHOR'S ORGANIZ ATION 10/27/2022 [facility] DATE CREATED AUTHOR AUTHOR'S ORGANIZ ATION 12/03/[address] [facility] DATE CREATED AUTHOR AUTHOR'S ORGANIZ ATION 09/25/2023 [facility] DATE CREATED AUTHOR AUTHOR'S ORGANIZ ATION 10/24/2023 [facility] DATE CREATED AUTHOR AUTHOR'S ORGANIZ ATION 12/15/2023 [facility] Source Comments (unrecognize d section and content) In the event this informatio n is protected by the Federal Confidentiality of Alcohol and Drug Abuse Patient Records regulations: The Federal rules restrict any use of the information to criminally investigate or prosecute any alcohol or drug abuse patient.[facility] the event this information is protected by the Federal Confidentiality of Alcohol and Drug Abuse Patient Records regulations: The Federal rules restrict any use of the information to criminally investigate or prosecute any alcohol or drug abuse patient.[facility] the event this information is protected by the Federal Confidentiality of Alcohol and Drug Abuse Patient Records regulations: The Federal rules restrict any use of the information to criminally investigate or prosecute any alcohol or drug abuse patient.[facility] the event this information is protected by the Federal Confidentiality of Alcohol and Drug Abuse Patient Records regulations: The Federal rules restrict any use of the information to criminally investigate or prosecute any alcohol or drug abuse patient.[facility] the event this information is protected by the Federal Confidentiality of Alcohol and Drug Abuse Patient Records regulations: The Federal rules restrict any use of the information to criminally investigate or prosecute any alcohol or drug abuse patient.[facility] the event this information is protected by the Federal Confidentiality of Alcohol and Drug Abuse Patient Records regulations: The Federal rules restrict any use of the information to criminally investigate or prosecute any alcohol or drug abuse patient.[facility] the event this information is protected by the Federal Confidentiality of Alcohol and Drug Abuse Patient Records regulations: The Federal rules restrict any use of the information to criminally investigate or prosecute any alcohol or drug abuse patient.[facility] the event this information is protected by the Federal Confidentiality of Alcohol and Drug Abuse Patient Records regulations: The Federal rules restrict any use of the information to criminally investigate or prosecute any alcohol or drug abuse patient.[facility] the event this information is protected by the Federal Confidentiality of Alcohol and Drug Abuse Patient Records regulations: The Federal rules restrict any use of the information to criminally investigate or prosecute any alcohol or drug abuse patient.[facility] the event this information is protected by the Federal Confidentiality of Alcohol and Drug Abuse Patient Records regulations: The Federal rules restrict any use of the information to criminally investigate or prosecute any alcohol or drug abuse patient.[facility] the event this information is protected by the Federal Confidentiality of Alcohol and Drug Abuse Patient Records regulations: The Federal rules restrict any use of the information to criminally investigate or prosecute any alcohol or drug abuse patient.[facility] the event this information is protected by the Federal Confidentiality of Alcohol and Drug Abuse Patient Records regulations: The Federal rules restrict any use of the information to criminally investigate or prosecute any alcohol or drug abuse patient.[facility] the event this information is protected by the Federal Confidentiality of Alcohol and Drug Abuse Patient Records regulations: The Federal rules restrict any use of the information to criminally investigate or prosecute any alcohol or drug abuse patient.[facility] the event this information is protected by the Federal Confidentiality of Alcohol and Drug Abuse Patient Records regulations: The Federal rules restrict any use of the information to criminally investigate or prosecute any alcohol or drug abuse patient.[facility] the event this information is protected by the Federal Confidentiality of Alcohol and Drug Abuse Patient Records regulations: The Federal rules restrict any use of the information to criminally investigate or prosecute any alcohol or drug abuse patient.[facility]In the event this information is protected by the Federal Confidentiality of Alcohol and Drug Abuse Patient Records regulations: The Federal rules restrict any use of the information to criminally investigate or prosecute any alcohol or drug abuse patient.[facility] the event this information is protected by the Federal Confidentiality of Alcohol and Drug Abuse Patient Records regulations: The Federal rules restrict any use of the information to criminally investigate or prosecute any alcohol or drug abuse patient.[facility] the event this information is protected by the Federal Confidentiality of Alcohol and Drug Abuse Patient Records regulations: The Federal rules restrict any use of the information to criminally investigate or prosecute any alcohol or drug abuse patient.[facility] HospitalIn the event this information is protected by the Federal Confidentiality of Alcohol and Drug Abuse Patient Records regulations: The Federal rules restrict any use of the information to criminally investigate or prosecute any alcohol or drug abuse patient.[facility] HospitalIn the event this information is protected by the Federal Confidentiality of Alcohol and Drug Abuse Patient Records regulations: The Federal rules restrict any use of the information to criminally investigate or prosecute any alcohol or drug abuse patient.[facility] HospitalIn the event this information is protected by the Federal Confidentiality of Alcohol and Drug Abuse Patient Records regulations: The Federal rules restrict any use of the information to criminally investigate or prosecute any alcohol or drug abuse patient.[facility] HospitalIn the event this information is protected by the Federal Confidentiality of Alcohol and Drug Abuse Patient Records regulations: The Federal rules restrict any use of the information to criminally investigate or prosecute any alcohol or drug abuse patient.[facility] HospitalIn the event this information is protected by the Federal Confidentiality of Alcohol and Drug Abuse Patient Records regulations: The Federal rules restrict any use of the information to criminally investigate or prosecute any alcohol or drug abuse patient.[facility] HospitalIn the event this information is protected by the Federal Confidentiality of Alcohol and Drug Abuse Patient Records regulations: The Federal rules restrict any use of the information to criminally investigate or prosecute any alcohol or drug abuse patient.[facility] HospitalIn the event this information is protected by the Federal Confidentiality of Alcohol and Drug Abuse Patient Records regulations: The Federal rules restrict any use of the information to criminally investigate or prosecute any alcohol or drug abuse patient.[facility] HospitalIn the event this information is protected by the Federal Confidentiality of Alcohol and Drug Abuse Patient Records regulations: The Federal rules restrict any use of the information to criminally investigate or prosecute any alcohol or drug abuse patient.[facility]In the event this information is protected by the Federal Confidentiality of Alcohol and Drug Abuse Patient Records regulations: The Federal rules restrict any use of the information to criminally investigate or prosecute any alcohol or drug abuse patient.[facility] HospitalIn the event this information is protected by the Federal Confidentiality of Alcohol and Drug Abuse Patient Records regulations: The Federal rules restrict any use of the information to criminally investigate or prosecute any alcohol or drug abuse patient.[facility] HospitalIn the event this information is protected by the Federal Confidentiality of Alcohol and Drug Abuse Patient Records regulations: The Federal rules restrict any use of the information to criminally investigate or prosecute any alcohol or drug abuse patient.[facility] HospitalIn the event this information is protected by the Federal Confidentiality of Alcohol and Drug Abuse Patient Records regulations: The Federal rules restrict any use of the information to criminally investigate or prosecute any alcohol or drug abuse patient.[facility] HospitalIn the event this information is protected by the Federal Confidentiality of Alcohol and Drug Abuse Patient Records regulations: The Federal rules restrict any use of the information to criminally investigate or prosecute any alcohol or drug abuse patient.[facility] HospitalIn the event this information is protected by the Federal Confidentiality of Alcohol and Drug Abuse Patient Records regulations: The Federal rules restrict any use of the information to criminally investigate or prosecute any alcohol or drug abuse patient.[facility] HospitalIn the event this information is protected by the Federal Confidentiality of Alcohol and Drug Abuse Patient Records regulations: The Federal rules restrict any use of the information to criminally investigate or prosecute any alcohol or drug abuse patient.[facility] HospitalIn the event this information is protected by the Federal Confidentiality of Alcohol and Drug Abuse Patient Records regulations: The Federal rules restrict any use of the information to criminally investigate or prosecute any alcohol or drug abuse patient.[facility] HospitalIn the event this information is protected by the Federal Confidentiality of Alcohol and Drug Abuse Patient Records regulations: The Federal rules restrict any use of the information to criminally investigate or prosecute any alcohol or drug abuse patient.[facility] HospitalIn the event this information is protected by the Federal Confidentiality of Alcohol and Drug Abuse Patient Records regulations: The Federal rules restrict any use of the information to criminally investigate or prosecute any alcohol or drug abuse patient.[facility] HospitalIn the event this information is protected by the Federal Confidentiality of Alcohol and Drug Abuse Patient Records regulations: The Federal rules restrict any use of the information to criminally investigate or prosecute any alcohol or drug abuse patient.[facility] HospitalIn the event this information is protected by the Federal Confidentiality of Alcohol and Drug Abuse Patient Records regulations: The Federal rules restrict any use of the information to criminally investigate or prosecute any alcohol or drug abuse patient.[facility] HospitalIn the event this information is protected by the Federal Confidentiality of Alcohol and Drug Abuse Patient Records regulations: The Federal rules restrict any use of the information to criminally investigate or prosecute any alcohol or drug abuse patient.[facility] HospitalIn the event this information is protected by the Federal Confidentiality of Alcohol and Drug Abuse Patient Records regulations: The Federal rules restrict any use of the information to criminally investigate or prosecute any alcohol or drug abuse patient.[facility] HospitalIn the event this information is protected by the Federal Confidentiality of Alcohol and Drug Abuse Patient Records regulations: The Federal rules restrict any use of the information to criminally investigate or prosecute any alcohol or drug abuse patient.[facility] HospitalIn the event this information is protected by the Federal Confidentiality of Alcohol and Drug Abuse Patient Records regulations: The Federal rules restrict any use of the information to criminally investigate or prosecute any alcohol or drug abuse patient.[facility] HospitalIn the event this information is protected by the Federal Confidentiality of Alcohol and Drug Abuse Patient Records regulations: The Federal rules restrict any use of the information to criminally investigate or prosecute any alcohol or drug abuse patient.[facility] HospitalIn the event this information is protected by the Federal Confidentiality of Alcohol and Drug Abuse Patient Records regulations: The Federal rules restrict any use of the information to criminally investigate or prosecute any alcohol or drug abuse patient.[facility] HospitalIn the event this information is protected by the Federal Confidentiality of Alcohol and Drug Abuse Patient Records regulations: The Federal rules restrict any use of the information to criminally investigate or prosecute any alcohol or drug abuse patient.[facility] HospitalIn the event this information is protected by the Federal Confidentiality of Alcohol and Drug Abuse Patient Records regulations: The Federal rules restrict any use of the information to criminally investigate or prosecute any alcohol or drug abuse patient.[facility] HospitalIn the event this information is protected by the Federal Confidentiality of Alcohol and Drug Abuse Patient Records regulations: The Federal rules restrict any use of the information to criminally investigate or prosecute any alcohol or drug abuse patient.[facility] HospitalIn the event this information is protected by the Federal Confidentiality of Alcohol and Drug Abuse Patient Records regulations: The Federal rules restrict any use of the information to criminally investigate or prosecute any alcohol or drug abuse patient.[facility] HospitalIn the event this information is protected by the Federal Confidentiality of Alcohol and Drug Abuse Patient Records regulations: The Federal rules restrict any use of the information to criminally investigate or prosecute any alcohol or drug abuse patient.[facility] HospitalIn the event this information is protected by the Federal Confidentiality of Alcohol and Drug Abuse Patient Records regulations: The Federal rules restrict any use of the information to criminally investigate or prosecute any alcohol or drug abuse patient.[facility] Reason for Visit (unrecogniz ed section and content) Reason Comments Appointment Reason Comments Neurologic Problem Burning feeling down entire right side of body, PCP called it neuropathy. Does have nerve problems with previous surgeries. Reason Onset Date Comments EMG 02/28/2022 Specialty Diagnoses / Procedures Referred By Sophia leonardo Referred To [facility] Diagnoses Radiculopathy, cervical region Procedures EMG(NEURO/NI) NERVE CONDUCTION STUDIES 9-10 STUDIES Mayur Cao MD [address] [facility] [address] [place] [address] Neu[facility] [place] [address] [place] [address] Referral ID Status Reason Start Date Expiration Date V isits Requested Visits Authorized [id number] Closed Auto-Generate d Referral 02/07/2022 02/07/2023 1 1 Reason Comments [facility] Surgery clearance Reason Comments Medication Problem Reason Comments New Patient Neck Pain Specialty Diagnoses / Procedures Referred By Sophia leonardo Referred To Contact MR IMAGING Diagnoses Arthrodesis status Adverse effect of treatment, initial encounter Procedures MRI THORACIC SPINE WO/W IVCON MRI SPINAL CANAL THORACIC W/O & W/CONTR Adrián Nolasco PA-C [address] [place] [address] Mr Imaging Referral ID Status Reason Start Date Expiration Date V isits Requested Visits Authorized [id number] Closed Auto-Generate d Referral 04/17/2022 05/17/2023 1 1 Specialty Diagnoses / Procedures Referred By Contac t Referred To Contact MR IMAGING Diagnoses Cervicalgia Arthrodesis status Adverse effect of treatment, initial encounter Procedures MRI CERVICAL SPINE WO/W IVCON MRI SPINAL CANAL CERVICAL W/O & W/CONTR Adrián Nolasco PA-C [address] [place] [address] Mr Imaging Referral ID Status Reason Start Date Expiration Date V isits Requested Visits Authorized [id number] Closed Auto-Generate d Referral 04/17/2022 05/17/2023 1 [...] subsequent encounter Procedures CONSULT TO NEUROSURGERY OFFICE/OUTPATIENT [facility] 60-74 MINUTES Adrián Pulido PA-C [address] [place] [address] Referral ID Status Reason Start Date Expiration Date V isits Requested Visits Authorized [id number] Closed PCP Requested Referral 06/04/2022 09/02/2022 1 1 Reason Comments Consult Specialty Diagnoses / Procedures Referred By Contac t Referred To Contact Diagnoses Age-related osteoporosis with current pathological fracture with routine healing, subsequent encounter Procedures CONSULT TO ENDO METABOLIC BONE OFFICE/OUTPATIENT [facility] 60-[place] [address] [place] [address] Referral ID Status Reason Start Date Expiration Date V isits Requested Visits Authorized [id number] Closed PCP Requested Referral 06/23/2022 06/23/2023 1 1 Reason Comments Results Specialty Diagnoses / Procedures Referred By Contac t Referred To Contact Diagnoses Age-related osteoporosis with current pathological fracture with routine healing, subsequent encounter Abnormal SPEP Procedures CONSULT TO HEMATOLOGY/ONCOLOGY OFFICE/OUTPATIENT NEW [facility]IGH [facility] 60-74 MINUTES Leslie Monet MD [address] [place] [address] Referral ID Status Reason Start Date Expiration Date V isits Requested Visits Authorized [id number] Closed PCP Requested Referral 08/05/2022 08/05/2023 1 1 Reason Comments Evenity Injection #1 of 12 Reason Comments Follow Up Reason Comments Xray Results Reason Comments Evenity Injection Reason Comments Follow Up Reason Comments EVENITY INJECTION #5 OF 12 Reason Comments Established Patient Specialty Diagnoses / Procedures [facility]erred [facility] Referred To Contact CT IMAGING Diagnoses 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 Procedures CT CHEST W IVCON DIAGNOSTIC COMPUTED TOMOGRAPHY THORAX W/[place] [id number] [facility] [place] [address] Referral ID Status Reason Start Date Expiration Date V isits Requested Visits Authorized [id number] Closed Auto-Generate d Referral 02/25/2023 03/26/2024 [address] Specialty Diagnoses / Procedures Referred By [facility] Referred To Contact CT IMAGING Diagnoses 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 Procedures CT CHEST W IVCON DIAGNOSTIC COMPUTED TOMOGRAPHY THORAX W/[place] [address] [place] [address] [facility] [place] [address] Reason Comments Closed stable burst frature of third tho racic vertebra with Reason Comments Established Patient Reason Comments Outside Lab Results Dexa scan 2022 Reason Comments Follow Up Reason Comments Consult New Patient Reason Comments Orders Reason Comments CAM Order Reason Comments CAM Order Request Reason Comments Prolia Injection Care Teams (unrecognized sec tion and content) Graphics Intern Relationship Specialty Start Date End Date Francisco Ferrari MD [address] [place], [place] [id number] PCP - General Family Practice 05/31/19 Graphics Intern Relationship Specialty Start Date End Date Francisco Ferrari MD [address] [facility] [place] [address] PCP - General Family Medicine 05/31/19 Graphics Intern Relationship Specialty Start Date End Date Francisco Ferrari MD [address] [facility] [place] [address] PCP - General Family Medicine 05/31/19 Graphics Intern Relationship Specialty Start Date End Date Francisco Ferrari MD [address] [place] [address] PCP - General Family Medicine 05/31/19 Graphics Intern Relationship Specialty Start Date End Date Francisco Ferrari MD [address] [place] [address] PCP - General Family Medicine 05/31/19 Graphics Intern Relationship Specialty Start Date End Date Francisco Ferrari MD [address] [facility] [place] [address] PCP - General Family Medicine 05/31/19 Graphics Intern Relationship Specialty Start Date End Date Francisco Ferrari MD [address] [facility] [place] [address] PCP - General Family Medicine 05/31/19 Graphics Intern Relationship Specialty Start Date End Date Francisco Ferrari MD [address] [facility] [place] [address] PCP - General Family Medicine 05/31/19 Graphics Intern Relationship Specialty Start Date End Date Francisco Ferrari MD [address] [facility] [place] [address] PCP - General Family Medicine 05/31/19 Graphics Intern Relationship Specialty Start Date End Date Mike Hopper, [address] [place] [address] PCP - General Family Medicine 06/24/22 Graphics Intern Relationship Specialty Start Date End Date Mike Hopper, DO [address] [place] [address] PCP - General Family Medicine 06/24/22 Graphics Intern Relationship Specialty Start Date End Date Mike Hopper, DO [address] [place] [address] PCP - General Family Medicine 06/24/22 Graphics Intern Relationship Specialty Start Date End Date Mike Hopper, DO [address] [place] [address] PCP - General Family Medicine 06/24/22 Graphics Intern Relationship Specialty Start Date End Date Mike Hopper, DO [address] [place] [address] PCP - General Family Medicine 06/24/22 Graphics Intern Relationship Specialty Start Date End Date Mike Hopper, DO [address] [place] [address] PCP - General Family Medicine 06/24/22 Graphics Intern Relationship Specialty Start Date End Date Mike Hopper, DO [address] [place] [address] PCP - General Family Medicine 06/24/22 Graphics Intern Relationship Specialty Start Date End Date Mike Hopper, DO [address] [place] [address] PCP - General Family Medicine 06/24/22 Graphics Intern Relationship Specialty Start Date End Date Mike Hopper, DO [address] [place] [address] PCP - General Family Medicine 06/24/22 Graphics Intern Relationship Specialty Start Date End Date Mike Hopper DO [address] [place] [address] PCP - General Family Medicine 06/24/22 Graphics Intern Relationship Specialty Start Date End Date Mike Hopper DO [address] [place] [address] PCP - General Family Medicine 06/24/22 Graphics Intern Relationship Specialty Start Date End Date Mike Hopper DO [address] [place] [address] PCP - General Family Medicine 06/24/22 Graphics Intern Relationship Specialty Start Date End Date Mike Hopper DO [address] [place] [address] PCP - General Family Medicine 06/24/22 Graphics Intern Relationship Specialty Start Date End Date Mike Hopper DO [address] [place] [address] PCP - General Family Medicine 06/24/22 Graphics Intern Relationship Specialty Start Date End Date Mike Hopper DO [address] [place] [address] PCP - General Family Medicine 06/24/22 Graphics Intern Relationship Specialty Start Date End Date Mike Hopper DO [address] [place] [address] PCP - General Family Medicine 06/24/22 Wisam Mills MD [address] [place] [address] Hematology/Oncology 02/25/23 Graphics Intern Relationship Specialty Start Date End Date Mike Hopper DO [address] [place] [address] PCP - General Family Medicine 06/24/22 Wisam Mills MD [address] [place] [address] Hematology/Oncology 02/25/23 Graphics Intern Relationship Specialty Start Date End Date Mike Hopper DO [address] [place] [address] PCP - General Family Medicine 06/24/22 Wisam Mills MD [address] [place] [address] Hematology/Oncology 02/25/23 Graphics Intern Relationship Specialty Start Date End Date Mike Hopper DO [address] [place] [address] PCP - General Family Medicine 06/24/22 Wisam Mills MD [address] [place] [address] Hematology/Oncology 02/25/23 Graphics Intern Relationship Specialty Start Date End Date Mike Hopper DO [address] [place] [address] PCP - General Family Medicine 06/24/22 Wisam Mills MD [address] [place] [address] Hematology/Oncology 02/25/23 Graphics Intern Relationship Specialty Start Date End Date Mike Hopper DO [address] [place] [address] PCP - General Family Medicine 06/24/22 Wisam Mills MD [address] [place] [address] Hematology/Oncology 02/25/23 Graphics Intern Relationship Specialty Start Date End Date Mike Hopper DO [address] [place] [address] PCP - General Family Medicine 06/24/22 Wisam Mills MD [address] [place] [address] Hematology/Oncology 02/25/23 Graphics Intern Relationship Specialty Start Date End Date Mike Hopper DO [address] [place] [address] PCP - General Family Medicine 06/24/22 Wisam Mills MD [address] [place] [address] Hematology/Oncology 02/25/23 Graphics Intern Relationship Specialty Start Date End Date Mike Hopper DO [address] [place] [address] PCP - General Family Medicine 06/24/22 Wisam Mills MD [address] [place] [address] Hematology/Oncology 02/25/23 Graphics Intern Relationship Specialty Start Date End Date Mike Hopper DO [address] [place] [address] PCP - General Family Medicine 06/24/22 Wisam Mills MD [address] [place] [address] Hematology/Oncology 02/25/23 Graphics Intern Relationship Specialty Start Date End Date Mike Hopper DO [address] [place] [address] PCP - General Family Medicine 06/24/22 Wisam Mills MD [address] [place] [address] Hematology/Oncology 02/25/23 Graphics Intern Relationship Specialty Start Date End Date Mike Hopper DO [address] [place] [address] PCP - General Family Medicine 06/24/22 Wisam Mills MD [address] [place] [address] Hematology/Oncology 02/25/23 Graphics Intern Relationship Specialty Start Date End Date Mike Hopper DO [address] [place] [address] PCP - General Family Medicine 06/24/22 Wisam Mills MD [address] [place] [address] Hematology/Oncology 02/25/23 Graphics Intern Relationship Specialty Start Date End Date Mike Hopper DO [address] [place] [address] PCP - General Family Medicine 06/24/22 Wisam Mills MD [address] [place] [address] Hematology/Oncology 02/25/23 Graphics Intern Relationship Specialty Start Date End Date Mike Hopper DO [address] [place] [address] PCP - General Family Medicine 06/24/22 Wisam Mills MD [address] [place] [address] Hematology/Oncology 02/25/23 Graphics Intern Relationship Specialty Start Date End Date Mike Hopper DO [address] [place] [address] PCP - General Family Medicine 06/24/22 Wisam Mills MD [address] [place] [address] Hematology/Oncology 02/25/23 Graphics Intern Relationship Specialty Start Date End Date Mike Hopper DO [address] [place] [address] PCP - General Family Medicine 06/24/22 Wisam Mills MD [address] [place] [address] Hematology/Oncology 02/25/23 Graphics Intern Relationship Specialty Start Date End Date Mike Hopper DO [address] [facility] [address] [place] [address] PCP - General Family Medicine 06/24/22 Graphics Intern Relationship Specialty Start Date End Date Mike Hopper DO [address] [facility] [address] [place] [address] PCP - General Family Medicine 06/24/22 Graphics Intern Relationship Specialty Start Date End Date Francisco Ferrari MD [address] [place] [address] PCP - General Family Medicine 05/31/19 06/23/22 FOR RECORDS PERTAINING TO PATIENTS WHO ARE [...] BE BASED ON THE PRIMARY CLINICAL RECORDS. [employer] provides no warranty or guarantee of the accuracy or completeness of information in this document.
== END | disposition home or self-care (01) ==
LOC: MTRAD 12:45
PROVIDERS: PCP Nurse Practitioner Family; Referring Provider Nurse Practitioner Family; Visit Provider Nurse Practitioner Family
DX: R07.81 Pleurodynia (principal)
CPT/HCPCS: 71046

== ENCOUNTER → 2024-03-22 | Outpatient (CLI) | payer MEDICARE, OTHER, SELFPAY | END | disposition home or self-care (01) | LOC: US 12:07 | PROVIDERS: PCP Nurse Practitioner Family; Referring Provider Nurse Practitioner Family; Visit Provider Nurse Practitioner Family | DX: E04.1 Nontoxic single thyroid nodule (principal); R09.89 Other specified symptoms and signs involving the circulatory and respiratory systems | CPT/HCPCS: 76536; 94060; 94726; 94729 ==

== ENCOUNTER → 2024-04-15 | Outpatient (CLI) | payer MEDICARE, OTHER, SELFPAY ==
--- NOTE | 2024-04-15 11:56 | BI_ITS ---
MAMMOGRAPHY - BILATERAL SCREENING REASON FOR EXAM: Female, 73 years old. Routine annual screening examination. PERTINENT HISTORY: Non-contributory. TECHNIQUE: Digital bilateral breast neri (3D mammographic acquisition) in the CC and MLO projections. 2-D mediolateral oblique (MLO) and craniocaudad (CC) views of both breasts were obtained. CAD: Full Field Digital Mammography with Computer Added Detection was performed. COMPARISON: Comparison is made with prior study April 14, 2023 and March 29, 2021. FINDINGS: Breast Composition: The breasts are almost entirely fatty. There are no dominant masses or suspicious calcifications. Stable bilateral secretory calcifications. No other significant abnormalities are identified. There has been no significant change since the prior study. BI/SCRN MAMM (CAD)W/NERI BILAT IMPRESSION: Stable bilateral screening mammogram. Yearly follow-up mammogram recommended. (A) ASSESSMENT CATEGORY: BIRADS Category 2: Benign. A letter regarding these results will be sent to the patient by the facility within 30 days. Approximately 10% of breast cancers are not detected by mammography. A normal mammogram should not delay biopsy of a clinically suspicious abnormality. [id number] Electronically Signed: Naveed Shoemaker MD at 12:38 EST ,
== END | disposition home or self-care (01) ==
LOC: OPBI 11:55
PROVIDERS: PCP Nurse Practitioner Family; Referring Provider Nurse Practitioner Family; Visit Provider Nurse Practitioner Family
DX: Z12.31 Encounter for screening mammogram for malignant neoplasm of breast (principal)
CPT/HCPCS: 77063; 77067

== ENCOUNTER → 2024-05-27 | Outpatient (CLI) | payer MEDICARE, SELFPAY ==
[2024-05-27 19:14] LABS: Color/Body Fluid RED; Source- Body Fluid OTHER
[2024-05-27 19:15] LABS: Appearance/Body Fluid TURBID
[2024-05-27 19:16] LABS: Body Fluid QC Type(s) BF1Q; Lymphocytes 2 %; Neutrophil (Segs) 98 %
[2024-05-30 16:18] LABS: Pathologist Comment/Body Fluid Reviewed
== END | disposition home or self-care (01) ==
PROVIDERS: PCP Nurse Practitioner Family; Referring Provider Specialist; Visit Provider Specialist
DX: M25.511 Pain in right shoulder (principal)
CPT/HCPCS: 87015; 87101; 87116; 87206

== ENCOUNTER → 2024-06-03 | Outpatient (CLI) | payer MEDICARE, SELFPAY ==
[2024-06-03 17:52] LABS: Color, Urine Yellow (Yellow); Glucose, Dipstick Normal (Normal); Ketone-Dipstick Negative (Negative); Leukocyte Esterase-Dipstick Negative /ul (Negative); Nitrite-Dipstick Negative (Negative); Occult Blood-Urine 10 /ul (Negative); Protein-Dipstick Negative (Negative); Urine Bilirubin Dipstick Negative (Negative); Urine Clarity Clear (Clear); Urine Urobilinogen Normal (Normal)
[2024-06-03 18:04] LABS: Absolute Lymphocyte Count 1.32 X10^3/uL (0.83-4.51); Absolute Neutrophil Count 7.5 X10^3/uL (2.0-7.7); Basophil# 0.04 X10^3/uL; Basophil% 0.4 % (0-1); Eosinophil# 0.07 X10^3/uL; Eosinophils% 0.7 % (0-5); Hematocrit 30.5 % (37-47); Hemoglobin 9.8 g/dL (12.0-15.0); Lymphocyte # 1.32 X10^3/ul (0.83-4.51); Lymphocyte % 13.7 % (19-41); Mean Corp Hgb Conc 32.1 g/dL (32-36); Mean Corpuscular Hgb 30.6 pg (27.0-32.0); Mean Corpuscular Volume 95.3 fL (81-99); Mean Platelet Vol. 9.3 fl (6.2-12.0); Monocyte# 0.64 X10^3/uL; Monocyte% 6.7 % (0-10); NRBC Flagged by Analyzer 0 % (0-5); Platelet Count 534 K/mm3 (150-450); RBC Distribution Width CV 13.7 % (11.6-14.6); White Blood Count 9.6 K/mm3 (4.4-11.0)
[2024-06-03 18:22] LABS: Albumin, Serum 2.9 g/dL (3.2-5.0)
[2024-06-03 19:17] LABS: Magnesium 2.2 mg/dL (1.6-2.6)
== END | disposition home or self-care (01) ==
LOC: MTLAB 14:42
PROVIDERS: Anesthesiology; Specialist; PCP Nurse Practitioner Family; Referring Provider Nurse Practitioner Family; Visit Provider Nurse Practitioner Family
DX: Z01.818 Encounter for other preprocedural examination (principal)
CPT/HCPCS: 36415; 81002; 82040; 83735; 84443; 85025; 86140; 87081

== ENCOUNTER → 2024-06-15 | Outpatient (CLI) | payer MEDICARE, SELFPAY ==
--- NOTE | 2024-06-15 07:55 | ECHOD_ITS ---
Reason For Study Reason For Study: SOB Procedure This was a 2D Doppler, Color Flow transthoracic echocardiogram. Exam performed in department. Left Ventricle Normal LV size. Left ventricular systolic function is normal. The left ventricular ejection fraction is 60 %. Stage 1 diastolic dysfunction. No regional wall motion abnormalities noted. Right Ventricle Normal RV size. Normal systolic function. Atria Normal left atrium. Normal right atrium. Mitral Valve Normal mitral valve. Mild (1+) eccentric mitral valve insufficiency. Tricuspid Valve Normal tricuspid valve. Mild (1+) tricuspid valve insufficiency. Pulmonary artery systolic pressure is 34 mmHg. Aortic Valve Trisinus/trileaflet aortic valve. Mild (1+) aortic valve insufficiency. Pulmonic Valve Normal pulmonic valve. Great Vessels Normal aortic root. The pulmonary artery is normal size. Inferior vena cava collapse with respiration. Pericardium/Pleural No pericardial effusion. MMode/2D Measurements & Calculations LVIDd: 4.1 cm IVSd: 0.80 cm Ao root diam: 3.3 cm LVIDs: 2.3 cm LVPWd: 0.79 cm RVDd: 3.2 cm FS: 44.6 % LAV(MOD-bp): 30.6 ml LVAd ap4: 21.0 cm2 SV(MOD-sp4): 38.8 ml LAV(MOD-bp) Indexed: 22.9 ml/m2 LVLd ap4: 6.1 cm SI(MOD-sp4): 29.0 ml/m2 LAV(MOD-sp2): 32.5 ml EDV(MOD-sp4): 59.0 ml LAV(MOD-sp4): 27.6 ml EDV(sp4-el): 61.2 ml LVAs ap4: 10.7 cm2 LVLs ap4: 4.7 cm ESV(MOD-sp4): 20.2 ml ESV(sp4-el): 20.6 ml EF(MOD-sp4): 65.7 % EF(sp4-el): 66.3 % SV(sp4-el): 40.6 ml Ao sinus diam: 3.[address] Junction: 2.7 cm LA dimension(2D): 2.9 cm LA A4 area: 12.0 cm2 RA A4 area: 13.1 cm2 TAPSE: 1.9 cm Time Measurements MV dec time: 0.17 sec Doppler Measurements & Calculations MV E max cachorro: 61.3 cm/sec Lat Peak E' Cachorro: 10.2 cm/sec Med Peak E' Cachorro: 6.8 cm/sec MV A max cachorro: 85.4 cm/sec E/E' lat: 6.0 E/E' med: 9.0 MV E/A: 0.72 MV V2 max: 95.1 cm/sec MV P1/2t max cachorro: 79.6 cm/sec Ao V2 max: 113.2 cm/sec MV max P.6 mmHg MV P1/2t: 66.7 msec Ao max P.1 mmHg MV V2 mean: 51.9 cm/sec MV dec slope: 349.6 cm/sec2 Ao V2 mean: 79.9 cm/sec MV mean P.2 mmHg Ao mean P.9 mmHg MV V2 VTI: 19.5 cm MVA(P1/2t): 3.3 cm2 Ao V2 VTI: 20.9 cm AI max cachorro: 521.7 cm/sec LV V1 max: 83.7 cm/sec MR max cachorro: 505.8 cm/sec AI max P.0 mmHg LV V1 max P.8 mmHg MR max P.3 mmHg AI dec slope: 246.6 cm/sec2 AI P1/2t: 619.6 msec PA V2 max: 91.1 cm/sec TR max cachorro: 273.8 cm/sec TR max P.0 mmHg ECHO/Echo Complete Interpretation Summary Normal LV size. Left ventricular systolic function is normal. The left ventricular ejection fraction is 60 %. Stage 1 diastolic dysfunction. Mild (1+) aortic valve insufficiency. Pulmonary artery systolic pressure is 34 mmHg. Ordering Physician: Ofelia العراقي Referring Physician: Ofelia العراقي Performed By: Guy Miller RCS
== END | disposition home or self-care (01) ==
PROVIDERS: PCP Nurse Practitioner Family; Referring Provider Nurse Practitioner Family; Visit Provider Nurse Practitioner Family
DX: R06.02 Shortness of breath (principal)
CPT/HCPCS: 93306

== ENCOUNTER 2024-06-24 15:04 | Inpatient (IN) | payer MEDICARE, SELFPAY ==
--- NOTE | 2024-06-15 16:15 | PAT.ANE_ITS ---
Pre-Assessment Diagnosis/Proposed Procedure Planned Operative Procedure(s): RIGHT SHOULDER SOFT TISSUE BX,DEBRIDEMENT SYNOVECTOMY REMOVAL TOTAL SHOULDER ANTIBIOTIC SPACER Anesthesia History Anesthesia History - cleaner assistant: Anesthesia History - cleaner assistant Hx Hospitalization No 06/03/24 14:28 Any Problems With Anesthesia No 06/03/24 14:28 Cholinesterase deficiency No 06/03/24 14:28 You/Your Family Experience No 06/03/24 14:28 fever (hyperthermia) with Relationship Recent Exposure to Contagious No 07/22/23 06:08 Disease Does patient have nerve No 06/03/24 14:28 stimulator Patient instructed to have device shut off --Does patient have Pacemaker or ICD? When Was Last Pacemaker Check QUESTION #4 FULL TEXT: You/Your Family Experience fever (hyperthermia) with Anesthesia Last Oral Intake Last Oral intake: Last Oral Intake NPO since Meds taken in AM with sips of water? Meds patient instructed to take am of surgery PONV PONV - cleaner assistant: PONV - cleaner assistant Female Yes 06/03/24 14:28 HX of Motion Sickness No 06/03/24 14:28 HX of N/V After Surgery No 06/03/24 14:28 Non-Smoker Yes 06/03/24 14:28 Duration of Surgery greater Yes 06/03/24 14:28 than 60 minutes Number of Risk Factors 3 06/03/24 14:28 PONV Score Moderate Risk 06/03/24 14:28 Height & Weight Height & Weight: Anesthesia: Height & Weight Height 4 ft 10 in 07/22/23 06:08 Respiratory Assessment Respiratory Assessment - cleaner assistant: Respiratory Tract Infection Hx - cleaner assistant Hx Respiratory Tract Infection No 06/03/24 14:28 STOP Sleep Apnea STOP Sleep Apnea - cleaner assistant: STOP Sleep Apnea - cleaner assistant Hx Hypertension No 06/03/24 14:28 Hx Sleep Apnea No 06/03/24 14:28 CPAP BIPAP Do you snore loudly (louder No 06/03/24 14:28 than talking or can be heard Do you often feel tired/ Yes 06/03/24 14:28 fatigued/ sleepy during daytime? Has anyone observed you stop No 06/03/24 14:28 breathing during sleep? STOP Results Negative 06/03/24 14:28 QUESTION #5 FULL TEXT : Do you snore loudly (louder than talking or can be heard through closed doors)? Tobacco Use History Tobacco Use History - cleaner assistant: Tobacco Use History - cleaner assistant Tobacco Use Smoking Status Former smoker 06/03/24 14:28 Hx Tobacco Use No 06/03/24 14:28 Years Smoking Packs Smoked per Day Smoking Cessation Date was Yes - quit smoking within 15 06/03/24 14:28 within the last 15 years years Hx Smoking Cessation Date 11/01/12 06/03/24 14:28 Hx Smoking Cessation No 06/03/24 14:28 Counseling Hematologic Medial History Hematologic Hx - cleaner assistant: Hematologic Medical Hx - manager personnel selection Hx of Blood Transfusion No 06/03/24 14:28 Hx of Transfusion in last 3 No 06/03/24 14:28 Months Date of Last Transfusion (if within last 3 months) Ever experience any problems No 06/03/24 14:28 with transfusion(s)? Specify any problems Hx of Preganancy in last 3 No 06/03/24 14:28 Months Nurse Filling Out Transfusion DSCHRIBER 06/03/24 14:28 & Questions: Date: 06/03/24 06/03/24 14:28 Time: 14:30 06/03/24 14:28 Patient unable to answer at this time (ie. confused, unrespo /Reproduction History /Reproductive History - cleaner assistant: /Reproductive Hx- cleaner assistant Hx Now No 06/03/24 14:28 Gestational Age (in weeks): EDC: Hx Hx Para Hx Section SAB No 06/03/24 14:28 PFS Medical History (Updated 06/03/24 @ 14:41 by Tasha Aburto) Hx of thyroid disease Primary osteoarthritis, right shoulder Right shoulder pain Primary osteoarthritis, left shoulder Fibromyalgia Muscular pain Wears dentures Post-menopausal Former smoker History of pain when walking Knee fracture, right Patellar fracture Anemia Health care maintenance Chronic back pain Bilateral knee pain Osteoporosis Wears glasses Osteoporosis Osteoarthritis Headache, migraine Back pain Arthritis Home Medications ?Medication ?Instructions ?Recorded ?Last Taken ?Type acetaminophen 500 mg tablet 1,000 mg PO Q8 PRN pain 07/21/23 History levothyroxine 25 mcg tablet 25 mcg PO DAILY THYROID Unknown History morphine 15 mg tablet,extended 15 mg PO DAILY PAIN Unknown History release Allergy/AdvReac Type Severity Reaction Status Date / Time grass pollen Allergy Intermediate sinus Verified 06/03/24 14:24 issues Family History Father Hypertension Arthritis CVA (cerebral vascular accident) Mother CVA (cerebral vascular accident) Hypertension Alcoholism Surgical History (Updated 06/03/24 @ 14:41 by Tasha Aburto) Hx of shoulder replacement Hx of total hip arthroplasty History of esophagogastroduodenoscopy (EGD) Hx of total hip arthroplasty Hx of neck surgery Hx of hemorrhoidectomy History of back surgery History of hip replacement, total S/P cervical spinal fusion S/P cervical spinal fusion H/O shoulder replacement Social History Smoking Status: Former smoker alcohol intake: never substance use type: does not use what type of physical activity do you participate in: walking frequency: daily Audit: Pertinent Findings Pertinent Findings EKG Perinent findings: 07/15/2023 normal sinus rhythm 65 bpm normal EKG Echo (EF%) pertinent findings: 06/15/2024 normal size function EF 60% pulmonary artery pressure 34 Recommendation Anesthesia Recommendation Anesthesia recommendation: OPTIMIZED for anesthesia
[2024-06-24] VITALS (13 sets, daily range): BP systolic 91–137; BP diastolic 54–87; PULSE 74–101; RESP 16–18; TEMP 36.1–36.6; O2SAT 4–100; BMI 19.0
[2024-06-24] MEDS: 0.9% Normal Saline (1000mL) 1,000 ML 15 ML IV (10:46)
[2024-06-24] MEDS: Magnesium 1 GM over 15 mins IV (10:46)
[2024-06-24] MEDS: Gabapentin 600 MG Tablet PO (10:46)
[2024-06-24] MEDS: Acetaminophen 500 MG Tablet 1000 MG PO ×2 (10:46→21:18)
[2024-06-24 11:08] LABS: Bedside Glucose 77 mg/dL (74-106)
--- NOTE | 2024-06-24 11:12 | PCM.PRE.AN2 ---
ASA Classification* ASA Classification ASA Classification: 3 Assessment & Plan Anesthesia* Anesthesia Assessment Anesthesia Assessment: Discussed sedation and/or anesthesia options, risks, benefits, and alternatives with patient/parents/legal guardian/POA. Questions invited. The patient/parents/legal guardian/POA seems to understand and agrees to proceed with anesthesia plan. Reviewed the physical assessment, medical history, allergy history and patient home medications list prior to surgery/procedure/anesthetic and documented any changes. Performed airway and anesthesia risk assessments. Anesthesia Type Anesthesia Type: General History Source History Obtained from:: Patient and Chart Anesthesia Focused Assessment* Temperature: 97.9 F Pulse Rate: 101 Blood Pressure: 119/87 Respiratory Rate: 16 Pulse Ox: 100 Oxygen Delivery Method: Room Air Airway Assessment Mouth opens: >3 cm Mallampati Score: II Teeth Condition: Dentures (upper) Neck Range of motion (ROM): Limited ROM Focused Labs Anesthesia Preop lab: CBC WBC 9.6 K/mm3 (4.4-11.0) 06/03/24 14:50 06/03/24 RBC 3.20 M/mm3 (4.2-5.4) L 06/03/24 14:50 06/03/24 Hgb 9.8 g/dL (12.0-15.0) L 06/03/24 14:50 06/03/24 Hct 30.5 % (37-47) L 06/03/24 14:50 06/03/24 Plt Count 534 K/mm3 (150-450) H 06/03/24 14:50 06/03/24 CHEMISTRY Potassium 4.0 mmol/L (3.5-5.1) 08/04/23 09:59 08/04/23 Sodium 140 mmol/L (136-145) 08/04/23 09:59 08/04/23 Magnesium 2.2 mg/dL (1.6-2.6) 06/03/24 14:48 06/03/24 Phosphorus 3.3 mg/dL (2.5-4.9) 07/04/17 07:40 07/04/17 BUN 20 mg/dL (7-18) H 08/04/23 09:59 08/04/23 Creatinine 1.00 mg/dL (0.55-1.02) 08/04/23 09:59 08/04/23 Glucose 101 mg/dL (74-106) 08/04/23 09:59 08/04/23 POC Glucose 77 mg/dL (74-106) 06/24/24 10:38 06/24/24 TSH 1.160 uIU/mL (0.358-3.740) 06/03/24 14:48 06/03/24 COAG PT 13.1 SECONDS (11.7-14.9) 07/15/23 08:58 07/15/23 Pre-Assessment Diagnosis/Proposed Procedure Planned Operative Procedure(s): RIGHT SHOULDER SOFT TISSUE BX,DEBRIDEMENT SYNOVECTOMY REMOVAL TOTAL SHOULDER ANTIBIOTIC SPACER Anesthesia History 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 When Was Last Pacemaker Check QUESTION #4 FULL TEXT: You/Your Family Experience fever (hyperthermia) with Anesthesia Last Oral Intake Last Oral intake: Last Oral Intake NPO since 09:00 06/24/24 10:33 Meds taken in AM with sips of No 06/24/24 10:33 water? Meds patient instructed to take am of surgery PONV PONV - barrel dedenting machine operator: PONV - barrel dedenting machine operator Female Yes 06/03/24 14:28 HX of Motion Sickness No 06/03/24 14:28 HX of N/V After Surgery No 06/03/24 14:28 Non-Smoker Yes 06/03/24 14:28 Duration of Surgery greater Yes 06/03/24 14:28 than 60 minutes Number of Risk Factors 3 06/03/24 14:28 PONV Score Moderate Risk 06/03/24 14:28 Height & Weight Height & Weight: Anesthesia: Height & Weight Height 4 ft 10 in 06/24/24 10:33 Weight: 41.277 kg 06/24/24 10:33 Body Mass Index (BMI) 19.0 06/24/24 10:33 Respiratory Assessment Respiratory Assessment - barrel dedenting machine operator: Respiratory Tract Infection Hx - barrel dedenting machine operator Hx Respiratory Tract Infection No 06/03/24 14:28 STOP Sleep Apnea STOP Sleep Apnea - barrel dedenting machine operator: STOP Sleep Apnea - barrel dedenting machine operator Hx Hypertension No 06/03/24 14:28 Hx Sleep Apnea No 06/03/24 14:28 CPAP BIPAP Do you snore loudly (louder No 06/03/24 14:28 than talking or can be heard Do you often feel tired/ Yes 06/03/24 14:28 fatigued/ sleepy during daytime? Has anyone observed you stop No 06/03/24 14:28 breathing during sleep? STOP Results Negative 06/03/24 14:28 QUESTION #5 FULL TEXT : Do you snore loudly (louder than talking or can be heard through closed doors)? Tobacco Use History Tobacco Use History - barrel dedenting machine operator: Tobacco Use History - barrel dedenting machine operator Tobacco Use Smoking Status Former smoker 06/03/24 14:28 Hx Tobacco Use No 06/03/24 14:28 Years Smoking Packs Smoked per Day Smoking Cessation Date was Yes - quit smoking within 15 06/03/24 14:28 within the last 15 years years Hx Smoking Cessation Date 11/01/12 06/03/24 14:28 Hx Smoking Cessation No 06/03/24 14:28 Counseling Hematologic Medial History Hematologic Hx - barrel dedenting machine operator: Hematologic Medical Hx - complaints coordinator Hx of Blood Transfusion No 06/03/24 14:28 Hx of Transfusion in last 3 No 06/03/24 14:28 Months Date of Last Transfusion (if within last 3 months) Ever experience any problems No 06/03/24 14:28 with transfusion(s)? Specify any problems Hx of Preganancy in last 3 No 06/03/24 14:28 Months Nurse Filling Out Transfusion DSCHRIBER 06/03/24 14:28 & Questions: Date: 06/03/24 06/03/24 14:28 Time: 14:30 06/03/24 14:28 Patient unable to answer at this time (ie. confused, unrespo /Reproduction History /Reproductive History - barrel dedenting machine operator: /Reproductive Hx- barrel dedenting machine operator Hx Now No 06/03/24 14:28 Gestational Age (in weeks): EDC: Hx Hx Para Hx Section SAB No 06/03/24 14:28 Active Medications Active Medications: Current Medications Generic Name Dose Route Start Last Admin Trade Name Freq PRN Reason Stop Dose Admin Acetaminophen 1,000 mg 06/24/24 12:45 06/24/24 10:46 Acetaminophen 500 Mg Tablet PO 06/24/24 12:46 1,000 mg X1 ONE Administration Dexamethasone Sodium Phosphate 10 mg 06/24/24 12:45 Dexamethasone 10 Mg/Ml Vial IV 06/24/24 12:46 X1 ONE Gabapentin 600 mg 06/24/24 12:45 06/24/24 10:46 Gabapentin 600 Mg Tablet PO 06/24/24 12:46 600 mg X1 ONE Administration Cefazolin Sodium 2 gm/ N/A 20 mls @ 400 mls/hr 06/24/24 12:45 IV 06/24/24 12:47 PREOP ONE Vancomycin HCl 750 mg/ Sodium 265 mls @ 167 mls/hr 06/24/24 12:45 Chloride IV 06/24/24 14:20 X1 ONE Tranexamic Acid 1,000 mg/ 110 mls @ 660 mls/hr 06/24/24 12:45 Sodium Chloride IV 06/24/24 12:54 X1 ONE Tranexamic Acid 1,000 mg/ 110 mls @ 660 mls/hr 06/24/24 12:45 Sodium Chloride IV 06/24/24 12:54 X1 ONE Magnesium Sulfate 1 gm/ 102 mls @ 408 mls/hr 06/24/24 12:45 06/24/24 10:46 Dextrose IV 06/24/24 12:59 408 mls/hr X1 ONE Administration Sodium Chloride 1,000 mls @ 15 mls/hr 06/24/24 10:20 06/24/24 10:46 IV 06/29/24 23:39 15 mls/hr .Q48H KAIN Administration Protocol Insulin Human Lispro 1 - 6 unit 06/24/24 12:45 Insulin Lispro 100 Unit/Ml Insuln.Pen SC 06/24/24 19:00 Q4H PRN PRN BG>/= 180, SEE PROTOCOL Protocol PFSH Medical History (Updated 06/03/24 @ 14:41 by Tasha Aburto) Hx of thyroid disease Primary osteoarthritis, right shoulder Right shoulder pain Primary osteoarthritis, left shoulder Fibromyalgia Muscular pain Wears dentures Post-menopausal Former smoker History of pain when walking Knee fracture, right Patellar fracture Anemia Health care maintenance Chronic back pain Bilateral knee pain Osteoporosis Wears glasses Osteoporosis Osteoarthritis Headache, migraine Back pain Arthritis Home Medications ?Medication ?Instructions ?Recorded ?Last Taken ?Type acetaminophen 500 mg tablet 1,000 mg PO Q8 PRN pain 07/13/23 07/21/23 History levothyroxine 25 mcg tablet 25 mcg PO DAILY THYROID 04/12/24 06/23/24 History morphine 15 mg tablet,extended 15 mg PO DAILY PAIN 05/26/24 Unknown History release Allergy/AdvReac Type Severity Reaction Status Date / Time grass pollen Allergy Intermediate sinus Verified 06/24/24 10:31 issues Family History Father Hypertension Arthritis CVA (cerebral vascular accident) Mother CVA (cerebral vascular accident) Hypertension Alcoholism Surgical History (Updated 06/03/24 @ 14:41 by Tasha Aburto) Hx of shoulder replacement Hx of total hip arthroplasty History of esophagogastroduodenoscopy (EGD) Hx of total hip arthroplasty Hx of neck surgery Hx of hemorrhoidectomy History of back surgery History of hip replacement, total S/P cervical spinal fusion S/P cervical spinal fusion H/O shoulder replacement Social History Smoking Status: Former smoker alcohol intake: never substance use type: does not use what type of physical activity do you participate in: walking frequency: daily Review of Systems (Anesthesia) ROS Narrative System reviewed and no additional complaints, except as documented.
[2024-06-24] MEDS: TXA 1000mg in NS100 100ml (IVPB at Incision) 660 MG IV (13:15)
[2024-06-24] MEDS: Cefazolin 2 GM in Syringe 10 ML IV (13:20)
[2024-06-24] MEDS: Vancomycin HCl 750 MG in 0.9% Normal Saline (250mL Bag) 250 ML 167 MG IV (13:25)
[2024-06-24] MEDS: dexAMETHasone 10 MG/ML Vial IV (14:08)
[2024-06-24] MEDS: Mineral Oil, Light Sterile 10 ML Vial MC (14:11)
[2024-06-24] MEDS: Vancomycin IV 1,000 MG/20 ML Vial 2000 MG OPERA.SITE (14:18)
[2024-06-24] MEDS: Cefazolin 1 GM/5 ML Vial 2 GM OPERA.SITE (14:18)
[2024-06-24] MEDS: TXA 1000mg in NS100 100ml (IVPB at Closure) 660 MG IV (14:59)
--- NOTE | 2024-06-24 15:10 | FORE_PTH ---
PATIENT: DOUG REYES LOC: [facility] U#:[id number] AGE/SX: 73/F ROOM: [facility] [place] RE06/24/[address]: Dr. Steve Tomlinson MD : 1950 BED: 1 DIS: 06/28/2024 SPEC #: [id number] RECD: 06/24/24 15:10 STATUS: FLORES RERachael #: [id number] MI: 06/24/24 15:[address]: Steve Tomlinson DEPT: SURGICAL PATHOLOGY RECD BY: Arielle Roberts ENTERED: 06/27/24 07:55 SP TYPE: FOREIGN B OTHR DR: MD Zak Rueda MD Dr. Nicholas F Kotsonis, MD Dr. Robert Leininger, MD Carolyn Graham, PRE SALES ARCHITECT-C Tissues: FOREIGN BODY Procedures: Surgery Specimen Level I HEADER OPERATION: Right shoulder soft tissue biopsy PRE-OP DIAGNOSIS: Pain due to internal orthopedic prosthetic devices, implants and grafts, infection and inflammatory reaction due to other internal joint prosthesis, presence of right artificial shoulder joint, effusion right shoulder TISSUE SUBMITTED: Glenoid GROSS DIAGNOSIS Glenoid: Orthopedic hardware, gross diagnosis only. Please see gross description. ANTHONY. 06/27/2024 MICROSCOPIC DESCRIPTION Slides are reviewed. GROSS DESCRIPTION Received fresh without tissue is orthopedic appearing hardware. There is a fragment of metal measuring 1.5cm in length and 9mm in diameter and a fragment of plastic tissue measuring 3.0 x 2.0 x 5.0cm with prongs present on one surface, three of which contain metal caps. The prongs range from 6-9mm in length and are approximately 6mm in diameter. One is not covered with metal. No sections are taken. ANTHONY. 06/27/2024 CPT:[id number]
--- NOTE | 2024-06-24 15:24 | PCM.OPRPT ---
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 street light servicer helper: Yes Shirt Line Operator: Tj Leigh Tasks completed by first aid officer: Opening & closing, Dissecting tissue, Removing tissue, Implanting device, Hemostasis: Electrocautery, Retracting and Other (Positioning) Additional sociology research assistant?: No Type of Anesthesia: General RN Documented Start/Stop Times: Operation Date: 06/24/24 12:45 Case Time Into Pre-Op 06/24/24 10:17 Out of Pre-Op 06/24/24 12:48 Anesthesia Start 06/24/24 12:57 Into Room 06/24/24 12:57 Procedure Start 06/24/24 13:31 Procedure End 06/24/24 15:38 Anesthesia End 06/24/24 15:48 Out of Room 06/24/24 15:48 Into Recovery 06/24/24 15:50 Out of Recovery 06/24/24 17:04 Procedure Start Time: 13:31 Procedure Stop Time: 15:38 Select all DRAINS/GRAFTS/IMPLANTS that apply: Prosthetic device Prosthetic device details: Tornier antibiotic cement mold system 48 mm head, #4 body Special Medications: Ancef, vancomycin, antibiotic cement (Ancef vancomycin and tobramycin) Estimated Blood Loss: 200 mL Fluids Replaced: Crystalloid Specimen collected: Yes Description of specimen(s) removed: Glenoid implant had oxidation superiorly and was sent for pathology 3 separate specimens sent to microbiology Description of surgery: Procedure: On the date of the procedure, patient's R upper extremity was marked in the preoperative area. Patient was taken back to the operating room where they were placed on the table in the supine position. Anesthesia assumed control of the C-spine and airway, then administered anesthetic. All bony prominences were identified well-padded, the head was secured and the patient was placed in the beachchair position at about 35? inclination. Anesthesia remained in control of the C-spine airway throughout the remainder of the procedure. Patient was then appropriately fastened to the table and the R upper extremity was prepped in a sterile fashion. The surgeons then scrubbed. Upon reentering the room, the R upper extremity was draped in a sterile fashion and the incision was marked out. Timeout was called, everyone agreed upon the side, the site, the procedure to be performed, patient identity and antibiotics given. Incision was taken down through skin and subcutaneous tissue, fat down to fascia. The stripe of the deltopectoral interval and cephalic vein were identified and blunt dissection was used to retract the deltoid. The cephalic vein was retracted laterally. There was significant scar tissue and branching of this vessel. Eventually some of the branches did create bleeding in order to obtain hemostasis the vessel was eventually tied off. We then bluntly dissected through the clavipectoral fascia and a cobel retractor was placed in the wound. The proximal one third of the pectoralis major insertion was released. We carefully were able to see the structure on the anterior humerus. There was a rent in the superior rotator cuff. There was gross fluid expressed from the joint which was cloudy and purulent. We carefully removed the subscapularis and anterior tissue sleeve, and doing so we released down the anterior portion of the humeral head and a geronimo elevator was used to release the inferior portion of the humeral head. The arm was externally rotated and the shoulder was dislocated. The humeral head was then exposed and the tuning fork was used to separate the humeral head from the stem. The baseplate adapter was then removed using the torque manager psychiatry. Once his humeral head was removed, humerus was retracted out of the way and the glenoid was exposed. After exposing the glenoid, at this time we then used an osteotome to separate the glenoid from this case. The outer pegs were easily removed. The central peg was then removed using the [employer] core device corneal rounded. There was a good bony bulk still. The sclerotic bone was burred and the outer peg holes were burred back to good bleeding bone. Residual synovium was removed. Attention was then turned towards the humerus. The humerus was again externally rotated exposing the proximal portion of the humerus. We then carefully exposed the proximal humeral stem. The pencil-tip bur was used to bur around it. The flexible osteotome was also used of around. We took the extractor up to the device and used a mallet to extract the device with minimal additional bone loss. The central pedestal was then breached and we reamed the canal distally. We then broached to a size 4 stem. Based on the patient's previous humeral head size we selected a 48 mm humeral head. At this time the retractors were removed from the wound and the arm was copiously irrigated out with normal saline. While irrigating out the wound the antibiotics were opened. Cement was mixed on the back table. The mold was assembled using a size 4 stem and 48 mm head. The mold was coated in mineral oil which was sterile and then cement was injected. Mold was clamped together and cement was allowed to cure as we irrigated out the remainder of 6 L of normal saline under low-pressure lavage in the wound. Once this was completed the glenoid was again exposed and bone graft was packed into the glenoid bone defects and humerus was exposed then and final implant was impacted into place with good friction fit. Shoulder was reduced and good internal rotation to the gluteus, forward elevation to 140?, external rotation to 20?. The wound was with chlorhexidine solution then copiously irrigated out with a dilute Betadine lavage and 1 L normal saline lavage. The deltopectoral fascia was then closed using #1 Vicryl. The interval was tagged with #1 Surgilon skin was closed using 2-0 Vicryl interrupted sutures and final skin closure was done with 3-0 Monocryl. Steri-Strips are placed for final skin closure. Sterile dressing was placed patient was then placed in a sling and awakened by anesthesia. Patient was then transferred to the PACU for recovery. Postoperative plan: Patient will be admitted to the hospital and be placed on IV antibiotics. IV antibiotics were discussed with the hospital infectious disease doctor. Will keep her on Ancef as the patient had pansensitive staph epi. They will get physical therapy starting in 2 weeks with passive range of motion. Patient will be placed on aspirin and 1 mg p.o. twice daily for DVT prophylaxis. The first postoperative appointment will be in 2 weeks for wound check and initiation of passive range of motion exercises. During the course of the procedure the physician sociology research assistant played a vital role. His intimate knowledge of my steps in the procedure aided in safe and expedient completion of the procedure. The PA played a vital rolls in positioning particularly in obtaining the appropriate beach chair position and securing the patient's body and head to the table. The PA was also vital in the retraction of soft tissues during the exposure and especially the glenoid work as this is a vital part of the procedure to prevent neurovascular damage. the PA was also vital and protecting soft tissues during times of bony cuts and reaming. He also played a vital role in closure with my direct supervision. The PA was also important during reduction and dislocation of the joint and trials intraoperatively. Surgical Findings: Gross synovitis, cloudy purulent joint fluid, outer pegs of the glenoid were gross loose. Glenoid had superior oxidation inferior wear. Complications Complications: No Admit VTE Documentation VTE Present on Admission: No VTE Mechan Device Prophylaxis: SCD's and Knee High EVAN Hose VTE Pharm Prophylaxis ordered?: Yes
--- NOTE | 2024-06-24 16:01 | PCM.POST.ANE ---
Anesthesia: Postop Eval I Current Vital Signs Temperature: 97.0 F Pulse Rate: 95 Blood Pressure: 136/76 Respiratory Rate: 16 Pulse Ox: 99 Oxygen Delivery Method: Room Air Assessment Airway patent: Yes Spontaneous unlabored respirations: Yes nausea: No Vomiting: No Anesthesia Complication: No Fluid Hydration Crystalloid volume administer (ml): 1,500 Total IV fluid infused: 1,500 Progress Note Anesthesia document: Postop Eval 1 completed: Yes
--- NOTE | 2024-06-24 16:18 | RAD_ITS ---
PROCEDURE: RIGHT SHOULDER, TWO VIEWS REASON FOR EXAM: POST OPERATIVE RIGHT SHOULDER. TECHNIQUE: AP AND SCAPULAR Y view(s) of RIGHT SHOULDER. COMPARISON: 04/12/2024. FINDINGS: Interval removal of the previously noted metallic humeral hemiarthroplasty. A new arthroplasty device has been inserted. For further description of the procedure please see postoperative report. Status post ACDF and dorsal fusion with instrumentation of the cervical spine. RAD/Shoulder min 2 Views IMPRESSION: Status post postoperative removal and replacement of a right shoulder arthropla sty. Reading Location: [facility]
--- NOTE | 2024-06-24 16:41 | POSTOPAN2_ITS ---
Anesthesia Postop Eval I Sum Postop Eval Completion status Anesthesia document: Postop Eval 1 completed: Yes Anesthesia Postop Eval I Summary Anesthesia Postop Eval I Summary: Anesthesia Postop Eval I: Assessment Summary Airway patent Yes 06/24/24 16:02 [email or web address] Spontaneous unlabored Yes 06/24/24 16:02 CABIN [email or web address] respirations Mental status nausea No 06/24/24 16:02 [email or web address] [email or web address] Vomiting No 06/24/24 16:02 [email or web address] [email or web address] Anesthesia Postop Eval I: Fluid Summary Crystalloid volume administer 1,500 06/24/24 16:02 [email or web address] [email or web address] (ml) Colloids volume administered ( ml) Blood Product volume administered (ml) Total IV fluid infused 1,500 06/24/24 16:02 CABIN [email or web address] Anesthesia Postop Eval I: Summary Notes Anesthesia Complication No 06/24/24 16:02 CABIN [email or web address] Anesthesia Complication Comment: Post-operative progress note Anesthesia: Postop Eval II Evaluation Mental status: Awake and Calm Pain Level: 3 nausea: No Vomiting: No Complications Anesthesia Complication: No
--- NOTE | 2024-06-24 16:41 | PCM.POSTANE2 ---
Anesthesia Postop Eval I Sum Postop Eval Completion status Anesthesia document: Postop Eval 1 completed: Yes Anesthesia Postop Eval I Summary Anesthesia Postop Eval I Summary: Anesthesia Postop Eval I: Assessment Summary Airway patent Yes 06/24/24 16:02 BOTTLE [email or web address] [email or web address] Spontaneous unlabored Yes 06/24/24 16:02 BOTTLE HOUSE [email or web address] respirations Mental status nausea No 06/24/24 16:02 BOTTLE HOUSE [email or web address] Vomiting No 06/24/24 16:02 BOTTLE HOUSE [email or web address] Anesthesia Postop Eval I: Fluid Summary Crystalloid volume administer 1,500 06/24/24 16:02 BOTTLE HOUSE [email or web address] (ml) Colloids volume administered ( ml) Blood Product volume administered (ml) Total IV fluid infused 1,500 06/24/24 16:02 BOTTLE HOUSE [email or web address] Anesthesia Postop Eval I: Summary Notes Anesthesia Complication No 06/24/24 16:02 BOTTLE HOUSE [email or web address] Anesthesia Complication Comment: Post-operative progress note Anesthesia: Postop Eval II Evaluation Mental status: Awake and Calm Pain Level: 3 nausea: No Vomiting: No Complications Anesthesia Complication: No
[2024-06-24] MEDS: Ferrous Sulfate 325 MG Tablet PO (17:37)
--- NOTE | 2024-06-24 20:58 | PN.HOSP_ITS ---
Reason for Visit Reason for Visit: Diagnoses Encounter for other preprocedural examination (06/24/24) Subjective Subjective The patient is a 73-year-old female with past medical history severe OA, hypothyroidism, former tobacco use, chronic anemia, chronic back pain status post previous cervical spinal fusion/back surgery who presents to the [facility] on 06/24/2024 secondary to persistent discomfort to the right shoulder with a right total shoulder periprosthetic joint infection for planned irrigation debridement, synovectomy, implant removal and placement of nonbiodegradable antibiotic delivery system/antibiotic spacer in the right shoulder. Patient evaluated postoperatively upon transition to the floor, notes pain currently is controlled and dull aching 1-2 out of 10 in severity. She notes sensation is intact and able to move fingers well. She is tolerating a diet without issue. Patient denies fevers, chills, nausea, emesis, abdominal pain, chest pain or dyspnea. Objective Data Objective Data Vital Signs: Vital Signs Temp Pulse Resp BP Pulse Ox O2 Del Method O2 Flow Rate 97.9 F 77 16 95/63 100 Room Air 4 06/24/24 20:28 06/24/24 20:28 06/24/24 20:28 06/24/24 20:28 06/24/24 20:28 06/24/24 20:35 06/24/24 16:45 Oxygen Flow Rate (L/min) 4 Oxygen Delivery Method Room Air Weight: 91 lb Body Mass Index (BMI) 19.0 Intake & Output: Intake and Output for Last 24 Hours 06/22/24 06/23/24 06/24/24 23:59 23:59 23:59 Intake Total 1847 / 1847 Balance 1847 / 1847 Lab / Micro Data Labs: Laboratory Results - last 24 hr 06/24/24 10:38: POC Glucose 77 Radiography Diagnostic Testing: Radiology Impression Shoulder X-Ray 06/24/24 16:18 IMPRESSION: Status post postoperative removal and replacement of a right shoulder arthroplasty. Reading Location: [facility] Physical Exam Narrative Physical Examination: General: Awake, alert, oriented x 3 and cooperative, seated upright in MS bed in no apparent distress, right shoulder dressing/sling in place, notes discomfort mild aching. Skin: Normal color, normal turgor, no icterus, no cyanosis except for recent OR with dressings in place, no drainage. HEENT: AT/NC, EOMI, PERRLA, MMM, no carotid bruits or JVD noted. Lungs: Mildly diminished, greater bases, poor effort, no rales, ronchi or wheezing. Heart: Regular rate and rhythm; no gallop, rub audible. Abdomen: Soft, thin habitus, NTTP, ND, distant normal BS, no appreciated HSM. Extremities: No cyanosis, no clubbing, no significant peripheral edema, able to move right upper extremity hand fingers without issue, peripheral pulses intact. Neurological: Patient awake, alert, oriented as noted, cognitive function intact; pupils equally reactive to light and accommodation, cranial nerves gross normal, moving all 4 extremities except limited right upper extremity given recent lower as expected, no focal deficits, strength moderately to severely globally decreased. Psychiatric: Affect appears fatigued otherwise normal normal, no acute evidence of depressive or anxiety feelings. Assessment & Plan Assessment/Plan (1) Joint infection: PLAN: Plan The patient is a 73-year-old female with past medical history severe OA, hypothyroidism, former tobacco use, chronic anemia, chronic back pain status post previous cervical spinal fusion/back surgery who presents to the [facility] on 06/24/2024 secondary to persistent discomfort to the right shoulder with a right total shoulder periprosthetic joint infection for planned irrigation debridement, synovectomy, implant removal and placement of nonbiodegradable antibiotic delivery system/antibiotic spacer in the right shoulder. #1. Right total shoulder periprosthetic joint infection: Admitted per Dr. Tomlinson, status post 06/24/2024 irrigation debridement, synovectomy, implant removal and placement of nonbiodegradable antibiotic delivery system/antibiotic spacer in the right shoulder, post-operative pain management, bowel regimen, DVT Prophylaxis, continued antibiotic therapies with planned infectious disease involvement per review of orthopedic surgery orders, PT/OT/CM per Orthopedic surgery discretion. #2. Chronic normocytic anemia: Most recent hemoglobin 06/03/2024 with hemoglobin 9.8, MCV 95.3, baseline hemoglobin noted to be more recently 8 range however last lab prior to this was 08/04/2023 noted to be hemoglobin 8.8 and previous to this had been more 10-11 range, encouraged follow-up CBC. #3. Chronic back pain/neck pain: Encourage offloading, positional changes, PT/OT consulted per orthopedic surgery discretion. #4. Hypothyroidism: We will continue patient home levothyroxine regimen. #5. Former tobacco use: Encourage continued tobacco cessation. #6. DVT prophylaxis: SCDs, chemoprophylaxis per surgery discretion given recent OR. Charges/Coding Visit Charges Inpatient E&M: 61482 [facility] Hosp L3
[2024-06-24] MEDS: Cefazolin 1 GM/50 ML BAG IV (21:14)
[2024-06-24] MEDS: BENZOCAINE/MENTHOL 1 LOZENGE MUCOUS MEM (21:16)
[2024-06-24] MEDS: Senna/Docusate Sodium 1 Tablet 2 TABLET PO (21:18)
[2024-06-24] MEDS: Aspirin 81 MG TAB.CHEW PO (21:19)
--- NOTE | 2024-06-24 22:28 | NURSING ---
dynamic access notified via web.
[2024-06-25] VITALS (8 sets, daily range): BP systolic 94–169; BP diastolic 54–89; PULSE 62–110; RESP 14–18; TEMP 36.4–36.8; O2SAT 96–100
[2024-06-25] MEDS: fentaNYL 100 MCG/2 ML Ampul 25 MCG IV (04:29)
[2024-06-25] MEDS: 0.9% Saline Lock 10 ML Syringe IV ×2 (04:29→13:17)
[2024-06-25] MEDS: Cefazolin 1 GM/50 ML BAG IV ×3 (05:41→21:18)
[2024-06-25] MEDS: Acetaminophen 500 MG Tablet 1000 MG PO ×3 (05:42→21:18)
[2024-06-25] MEDS: oxyCODONE 5 MG Tablet PO ×3 (05:46→23:19)
[2024-06-25] MEDS: Levothyroxine 25 MCG TABLET PO (05:47)
--- NOTE | 2024-06-25 07:17 | PN.ORTHO_ITS ---
Subjective Subjective Patient doing well. Stable overnight. Did start to have some pain after block wore off. Concerned about her pain management. On MS Contin at home. Did have systolic blood pressures in the 90s overnight. Systolic was 118 this morning. Was given fentanyl overnight by medicine service. Resting comfortably today on our encounter. Awaiting labs this morning. Objective Data Objective Data Vital Signs: Vital Signs Temp Pulse Resp BP Pulse Ox O2 Del Method O2 Flow Rate 98.2 F 76 16 118/57 L 97 Room Air 4 06/25/24 05:38 06/25/24 05:38 06/25/24 05:38 06/25/24 05:38 06/25/24 05:38 06/25/24 05:38 06/24/24 16:45 Oxygen Flow Rate (L/min) 4 Oxygen Delivery Method Room Air Weight: 91 lb Body Mass Index (BMI) 19.0 Intake & Output: Intake and Output for Last 24 Hours 06/23/24 06/24/24 06/25/24 23:59 23:59 23:59 Intake Total 2207.25 / 2207.25 50 / 50 Balance 2207.25 / 2207.25 50 / 50 Lab / Micro Data Attestation: I reviewed the patient's lab results. Labs: Laboratory Results - last 24 hr 06/24/24 10:38: POC Glucose 77 Radiography Diagnostic Testing: Radiology Impression Shoulder X-Ray 06/24/24 16:18 IMPRESSION: Status post postoperative removal and replacement of a right shoulder arthroplasty. Reading Location: [facility] Postoperative x-rays personally reviewed and interpreted. Antibiotic spacer in place. Physical Exam Narrative Right upper extremity: Dressing is clean dry and intact. No saturation. No surrounding erythema. Positive thumbs up, okay sign and cross his fingers. Sensations intact to light touch R/M/U distally. 2+ radial pulse. Digits are warm and pink with brisk cap refill. 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 1. Pain control: Patient is on chronic pain control with Dr. Christianson will resume her MS Contin today. Use oxycodone for breakthrough pain. Will need to try and avoid IV pain medications in preparation for discharge. Patient does remain comfortable despite her rating of her pain based on review of vital signs. Also need to pay attention to her blood pressure as it did remain low to the evening. It is corrected right now. Patient is overall stable. 2. DVT prophylaxis: Aspirin 81 mg p.o. twice daily 3. Infectious disease: Infectious disease been consulted and will see the patient on Thursday. I did discuss the case with the application support consultant over the phone last evening recommended continuing her on cefazolin based on previous cultures. 3 cultures were taken intraoperatively for further analysis. Will continue to follow cultures and adjust inbox appropriate. PICC line is ordered. 4. Therapy: Patient will wear sling at all times. Should be able to work with therapy on gentle range of motion pendulum swings primarily. Distally Occupational Therapy should work on patient ADLs. 5. Medical management: Appreciate medical management consultation. Chronic hypothyroidism 6. Chronic anemia: Patient on iron ferrous sulfate. Awaiting labs returned today. Patient is stable. Lives chronically with hemoglobin of 8-9. No furt her active treatment required at this time Disposition: Awaiting cultures. Once we have antibiotic regimen finalized and patient is comfortable patient will likely be ready for discharge. Discussed with patient today that there is short repeat surgery if further debridement needs done or infection is not appropriate cleared. Finally plan is for eventual second stage for reverse total shoulder replacement.
[2024-06-25 07:19] LABS: Hematocrit 24.5 % (37-47); Hemoglobin 7.8 g/dL (12.0-15.0); Mean Corp Hgb Conc 31.8 g/dL (32-36); Mean Corpuscular Hgb 29.9 pg (27.0-32.0); Mean Corpuscular Volume 93.9 fL (81-99); Mean Platelet Vol. 9.2 fl (6.2-12.0); Platelet Count 484 K/mm3 (150-450); RBC Distribution Width SD 47.8 fl (35.1-43.9); Red Blood Count 2.61 M/mm3 (4.2-5.4); White Blood Count 15.5 K/mm3 (4.4-11.0)
[2024-06-25 07:50] LABS: Anion Gap 8 (5-15); BUN 15 mg/dL (7-18); BUN/Creat Ratio 18.9 RATIO (10-20); Calcium,Total 8.6 mg/dL (8.5-10.1); Chloride 110 mmol/L (98-107); Creatinine, Serum 0.79 mg/dL (0.55-1.02); EST Glomerular Filtration Rate 75 mL/min (>60); Est Glom Filt Rate - Afr Amer 91 mL/min (>60); Estimated Creatinine Clearance 40.81 ml/min; Glucose 108 mg/dL (74-106); Potassium 4.1 mmol/L (3.5-5.1); Sodium Level 139 mmol/L (136-145)
--- NOTE | 2024-06-25 09:56 | PN.HOSP_ITS ---
Reason for Visit Reason for Visit: Diagnoses Pyogenic arthritis, unspecified (06/24/24) Infection and inflammatory reaction due to other internal joint prosthesis, initial encounter (06/24/24) Encounter for other preprocedural examination (06/24/24) Presence of right artificial shoulder joint (06/24/24) Subjective Subjective Saw patient at bedside this morning. Patient was sitting back fairly comfortably in bed and in no acute distress. Had sling in place for right shoulder. Stated that overnight she did have a significant amount of pain that has improved somewhat with pain medication. She had not been out of bed yet this morning. Denies any fevers or chills. No other new concerns today. Objective Data Objective Data Vital Signs: Vital Signs Temp Pulse Resp BP Pulse Ox O2 Del Method O2 Flow Rate 98.2 F 90 16 118/57 L 97 Room Air 4 06/25/24 05:38 06/25/24 08:30 06/25/24 05:38 06/25/24 05:38 06/25/24 05:38 06/25/24 05:38 06/24/24 16:45 Oxygen Flow Rate (L/min) 4 Oxygen Delivery Method Room Air Weight: 41.277 kg Body Mass Index (BMI) 19.0 Intake & Output: Intake and Output for Last 24 Hours 06/23/24 06/24/24 06/25/24 23:59 23:59 23:59 Intake Total 2207.25 / 2207.25 50 / 50 Balance 2207.25 / 2207.25 50 / 50 Lab / Micro Data 06/25/24 06:50 06/25/24 06:50 Labs: Laboratory Results - last 24 hr 06/24/24 10:38: POC Glucose 77 06/25/24 06:50: WBC 15.5 H, RBC 2.61 L, Hgb 7.8 L, Hct 24.5 L, MCV 93.9, MCH 29.9, MCHC 31.8 L, RDW Std Deviation 47.8 H, RDW Coeff of Nilsa 14.0, Plt Count 484 H, MPV 9.2, Sodium 139, Potassium 4.1, Chloride 110 H, Carbon Dioxide 21.0, Anion Gap 8, BUN 15, Creatinine 0.79, Estim Creat Clear Calc 40.81, Est GFR (MDRD) Af Amer 91, Est GFR (MDRD) Non-Af 75, BUN/Creatinine Ratio 18.9, Glucose 108 H, Calcium 8.6 Radiography Diagnostic Testing: Radiology Impression Shoulder X-Ray 06/24/24 16:18 IMPRESSION: Status post postoperative removal and replacement of a right shoulder arthroplasty. Reading Location: [facility] Physical Exam Const alert, oriented x3 and no apparent distress Constitutional Narrative: Elderly female, thin appearing, sitting back fairly comfortably in bed, conversing normally, in no acute distress. General Appearance: cooperative and comfortable HEENT normocephalic, head/scalp atraumatic, hearing grossly normal bilaterally, nasal mucous membranes and turbinates normal and moist oral mucous membranes Eyes PERRL, EOMs intact bilaterally and conjunctivae normal Neck full ROM Chest inspection of chest normal Resp normal respiratory effort, normal air movement, no use of accessory muscles and clear to auscultation bilaterally Cardio regular rate, regular rhythm, no murmurs and peripheral pulses 2+ throughout GI normal to inspection, nondistended, normoactive bowel sounds, soft to palpation, non-tender and non-distended Back/Spine normal ROM Extremity Extremity Narrative: Right arm stable in sling. 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 Medicine consulted postoperatively for medical management. 1. Right shoulder periprosthetic joint infection ? Orthopedic surgery primary. ID consulted. S/p debridement, synovectomy, implant removal and placement of antibiotic delivery system/spacer and right shoulder with Dr. Tomlinson on 06/24. Patient tolerated procedure well, no intraoperative complications. Intraoperative cultures pending. Continue IV Ancef for now per orthopedics. Further management per orthopedics. 2. Chronic normocytic anemia ? Hemoglobin 7.8 postoperatively on 06/25, last hemoglobin was 9.8 on 06/03. Suspected due to blood loss intraoperatively. Patient hemodynamically stable. Follow-up a.m. CBC tomorrow. Continue home iron supplement. 3. Chronic back pain/neck pain ? On p.o. morphine 50 mg twice daily for this at home. Was discussed with orthopedics and will continue her home p.o. morphine in addition to scheduled Tylenol, as needed p.o. oxycodone and as needed IV morphine as needed for pain control. Continue scheduled senna and low-dose milk of magnesia for bowel regimen. 4. Hypothyroidism ? Continue home Synthroid. 5. Former tobacco use ? Encouraged continued cessation. DVT prophylaxis: Baby aspirin twice daily per orthopedics Total clinical time spent by myself addressing the patient's medical issues, reviewing all the data, and collaborating with patient's care team: 25 minutes. Charges/Coding Visit Charges Inpatient E&M: 88566 Subs Hosp L1
[2024-06-25] MEDS: Senna/Docusate Sodium 1 Tablet 2 TABLET PO (11:10)
[2024-06-25] MEDS: Ferrous Sulfate 325 MG Tablet PO (11:10)
[2024-06-25] MEDS: Famotidine 20 MG Tablet PO (11:10)
[2024-06-25] MEDS: morphine SR 15 MG Tablet PO ×2 (11:11→21:18)
[2024-06-25] MEDS: Folic Acid 1 MG Tablet PO (11:18)
[2024-06-25] MEDS: Aspirin 81 MG TAB.CHEW PO ×2 (11:19→16:59)
[2024-06-25] MEDS: Ensure Surgery 237 ML LIQUID PO ×2 (11:20→16:59)
[2024-06-25] MEDS: 0.9% Normal Saline (100mL Bag) 100 ML 15 ML IV (13:17)
--- NOTE | 2024-06-25 14:21 | CASEMGMT ---
GREGORIA ETIENNE Assessment: Face to Face with pt for initial transition planning/care coordination assessment. GREGORIA ETIENNE introduced self and role at [facility], pt voices understanding and consents to assessment. Pt is A&O x4 and answers all questions appropriately at this time. Pt sitting up in bed in no distress. Care providers, pharmacy, and demographics verified/updated. Strata: 1 Admitting Dx: ERAS, R Shoulder Soft Tissue BI PCP: Mal[facility] Specialists: Basali, Pain Management; [facility] for osteoporosis; Davi, Ortho Preferred Pharmacy: [facility] Insurance: [facility] Prescription Benefit: yes LNOK: TaladinaJacki garibay; Son, Yogi Living Arrangements: Pt lives alone in an apartment with 3 steps to enter. ADLs: I at baseline. Transportation: Pt drives self and denies concerns with transportation. DME: Walker, but does not use. HHC/SNF: Denies Hx of. GREGORIA ETIENNE discussed possibility of IV antibiotics at DC. Pt seems overwhelmed, states I don't have any friends, we've all parted ways. States her children are not able to assist her with IV antibiotics at home. Pt upset that it took 3 months to determine what was wrong. Will need to follow up regarding DC Plan. Pt states no further concerns/needs. CM to follow. Advised pt to ask CM if any further question/concerns/needs arise, voices understanding. Pt Goal: TBD Plan: TBD, follow ID and Ortho for DC plan. Likely need IV antibiotics. Ramón KINNEY CM
[2024-06-25] MEDS: Magnesium Hydroxide 30 ML UDC 15 ML PO (21:22)
[2024-06-26 03:00] VITALS: BP 127/72; PULSE 86; RESP 18; TEMP 36.7; O2SAT 98
[2024-06-26] MEDS: Acetaminophen 500 MG Tablet 1000 MG PO ×3 (06:30→22:10)
[2024-06-26] MEDS: Levothyroxine 25 MCG TABLET PO (06:30)
[2024-06-26] MEDS: Cefazolin 1 GM/50 ML BAG IV ×3 (06:31→22:13)
[2024-06-26 07:15] LABS: Hematocrit 23.6 % (37-47); Hemoglobin 7.6 g/dL (12.0-15.0); Mean Corp Hgb Conc 32.2 g/dL (32-36); Mean Corpuscular Hgb 29.9 pg (27.0-32.0); Mean Corpuscular Volume 92.9 fL (81-99); Mean Platelet Vol. 9.1 fl (6.2-12.0); Platelet Count 397 K/mm3 (150-450); RBC Distribution Width CV 14.6 % (11.6-14.6); RBC Distribution Width SD 49.6 fl (35.1-43.9); Red Blood Count 2.54 M/mm3 (4.2-5.4)
[2024-06-26 08:00] VITALS: BP 122/66; PULSE 88; RESP 18; TEMP 36.3; O2SAT 98
[2024-06-26] MEDS: Aspirin 81 MG TAB.CHEW PO ×2 (09:27→16:45)
[2024-06-26] MEDS: Folic Acid 1 MG Tablet PO (09:28)
[2024-06-26] MEDS: morphine SR 15 MG Tablet PO ×2 (09:28→22:10)
[2024-06-26] MEDS: Famotidine 20 MG Tablet PO (09:28)
--- NOTE | 2024-06-26 09:41 | PCM.PN.HOSP ---
Reason for Visit Reason for Visit: Diagnoses Pyogenic arthritis, unspecified (06/24/24) Infection and inflammatory reaction due to other internal joint prosthesis, initial encounter (06/24/24) Encounter for other preprocedural examination (06/24/24) Presence of right artificial shoulder joint (06/24/24) Subjective Subjective Saw patient at bedside this morning. Patient appeared similar to yesterday, was sitting back in bed and appeared fairly comfortable at rest. She continued to report right shoulder pain but stated it was somewhat improved today from yesterday. She was asking questions about the overall plan for her and these questions were answered by myself and the orthopedics PA who was also at the bedside during my encounter with her. No other new concerns today. Objective Data Objective Data Vital Signs: Vital Signs Temp Pulse Resp BP Pulse Ox O2 Del Method O2 Flow Rate 98.0 F 86 18 127/72 H 98 Room Air 4 06/26/24 03:00 06/26/24 03:00 06/26/24 03:00 06/26/24 03:00 06/26/24 03:00 06/26/24 03:00 06/24/24 16:45 Oxygen Flow Rate (L/min) 4 Oxygen Delivery Method Room Air Weight: 41.277 kg Body Mass Index (BMI) 19.0 Intake & Output: Intake and Output for Last 24 Hours 06/24/24 06/25/24 06/26/24 23:59 23:59 23:59 Intake Total 2207.25 / 2207.25 187.75 / 387.75 500 / 500 Balance 2207.25 / 2207.25 187.75 / 387.75 500 / 500 Lab / Micro Data 06/26/24 06:50 06/25/24 06:50 Labs: Laboratory Results - last 24 hr 06/26/24 06:50: WBC 9.0, RBC 2.54 L, Hgb 7.6 L, Hct 23.6 L, MCV 92.9, MCH 29.9, MCHC 32.2, RDW Std Deviation 49.6 H, RDW Coeff of Nilsa 14.6, Plt Count 397, MPV 9.1 Micro: Microbiology 06/24/24 12:45 Tissue - Shoulder Gram Stain - Final 06/24/24 12:45 Tissue - Shoulder Wound Culture - Preliminary No growth-Final to follow 06/24/24 12:45 Tissue - Shoulder Gram Stain - Final 06/24/24 12:45 Tissue - Shoulder Wound Culture - Preliminary No growth-Final to follow 06/24/24 12:45 Tissue - Shoulder Gram Stain - Final 06/24/24 12:45 Tissue - Shoulder Wound Culture - Preliminary No growth-Final to follow Physical Exam Const alert, oriented x3 and no apparent distress Constitutional Narrative: Elderly female, thin appearing, sitting back fairly comfortably in bed, conversing normally, in no acute distress. Stable. General Appearance: cooperative and comfortable HEENT normocephalic, head/scalp atraumatic, hearing grossly normal bilaterally, nasal mucous membranes and turbinates normal and moist oral mucous membranes Eyes PERRL, EOMs intact bilaterally and conjunctivae normal Neck full ROM Chest inspection of chest normal Resp normal respiratory effort, normal air movement, no use of accessory muscles and clear to auscultation bilaterally Cardio regular rate, regular rhythm, no murmurs and peripheral pulses 2+ throughout GI normal to inspection, nondistended, normoactive bowel sounds, soft to palpation, non-tender and non-distended Back/Spine normal ROM Extremity Extremity Narrative: Right arm stable in sling. 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 Medicine consulted postoperatively for medical management. 1. Right shoulder periprosthetic joint infection ? Orthopedic surgery primary. ID consulted. S/p debridement, synovectomy, implant removal and placement of antibiotic delivery system/spacer and right shoulder with Dr. Tomlinson on 06/24. Patient tolerated procedure well, no intraoperative complications. Intraoperative cultures pending. Continue IV Ancef for now per orthopedics. Further management per orthopedics. 2. Chronic normocytic anemia ? Hemoglobin 7.8 postoperatively on 06/25, last hemoglobin was 9.8 on 06/03. Suspected due to blood loss intraoperatively. Patient hemodynamically stable. Most recent hemoglobin 7.6 on 06/26, stable. Continue home iron supplement. 3. Chronic back pain/neck pain ? On p.o. morphine 50 mg twice daily for this at home. Was discussed with orthopedics and will continue her home p.o. morphine in addition to scheduled Tylenol, as needed p.o. oxycodone and as needed IV morphine as needed for pain control. Continue scheduled senna and low-dose milk of magnesia for bowel regimen. 4. Hypothyroidism ? Continue home Synthroid. 5. Former tobacco use ? Encouraged continued cessation. DVT prophylaxis: Baby aspirin twice daily per orthopedics Total clinical time spent by myself addressing the patient's medical issues, reviewing all the data, and collaborating with patient's care team: 25 minutes. Charges/Coding Visit Charges Inpatient E&M: 09435 Subs Hosp L1
--- NOTE | 2024-06-26 09:48 | PN.ORTHO_ITS ---
Subjective Subjective The patient was sitting in bed upon examination. Patient denies any chest pain, shortness of breath, dizziness, lightheadedness, nausea or vomiting, or calf pain. Patient states she is doing better today than yesterday with regards to pain. She is send current pain management with Dr. Christianson. She normally takes MS Bishnu. She is on oxycodone for breakthrough pain. She denies any numbness and tingling. Patient asking many questions and states she is unaware of postoperative course of treatment. Patient also states that when she gets discharge she has no money for therapy and will not go to physical therapy. She currently has a PICC line. We are waiting on recommendations from infectious disease. She is currently on Ancef until final antibiotics per infectious disease. Case management has been involved. Patient is concerned about discharge home as she will have no help. However she states that she wants to go home. Objective Data Objective Data Vital Signs: Vital Signs Temp Pulse Resp BP Pulse Ox O2 Del Method O2 Flow Rate 98.0 F 86 18 127/72 H 98 Room Air 4 06/26/24 03:00 06/26/24 03:00 06/26/24 03:00 06/26/24 03:00 06/26/24 03:00 06/26/24 03:00 06/24/24 16:45 Oxygen Flow Rate (L/min) 4 Oxygen Delivery Method Room Air Weight: 41.277 kg Body Mass Index (BMI) 19.0 Intake & Output: Intake and Output for Last 24 Hours 06/24/24 06/25/24 06/26/24 23:59 23:59 23:59 Intake Total 7.25 / 220.25 187.75 / 387.75 500 / 500 Balance 220.25 / 2206.25 187.75 / 387.75 500 / 500 Lab / Micro Data 06/26/24 06:50 06/25/24 06:50 Labs: Laboratory Results - last 24 hr 06/26/24 06:50: WBC 9.0, RBC 2.54 L, Hgb 7.6 L, Hct 23.6 L, MCV 92.9, MCH 29.9, MCHC 32.2, RDW Std Deviation 49.6 H, RDW Coeff of Nilsa 14.6, Plt Count 397, MPV 9.1 Micro: Microbiology 06/24/24 12:45 Tissue - Shoulder Gram Stain - Final 06/24/24 12:45 Tissue - Shoulder Wound Culture - Preliminary No growth-Final to follow 06/24/24 12:45 Tissue - Shoulder Gram Stain - Final 06/24/24 12:45 Tissue - Shoulder Wound Culture - Preliminary No growth-Final to follow 06/24/24 12:45 Tissue - Shoulder Gram Stain - Final 06/24/24 12:45 Tissue - Shoulder Wound Culture - Preliminary No growth-Final to follow Physical Exam Narrative Vital signs stable, afebrile Dressing is clean, dry, intact Ultra-sling fitting appropriately Sensation intact to axillary, radial, median, and ulnar distribution Motor intact to AIN, PIN, and ulnar nerve SCDs and EVAN hose are in place. 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 1. Pain control: Patient is on chronic pain control with Dr. Christianson will resume her MS Contin today. Continue with Tylenol and use oxycodone for breakthrough pain. Patient does not appear to be in any distress today. She states her pain is improved today. 2. DVT prophylaxis: Aspirin 81 mg p.o. twice daily 3. Infectious disease: Infectious disease been consulted and will see the patient on Thursday. Dr. Steve Tomlinson did discuss with infectious disease over the phone and will continue currently on Ancef with previous cultures. Current cultures and Gram stain are negative without organism or growth. Patient had PICC line ordered and placed. Appreciate recommendations from infectious disease for discharge planning. 4. Therapy: Patient will wear sling at all times. Should be able to work with therapy on gentle range of motion pendulum swings primarily. [facility] Occupational Therapy should work on patient ADLs. 5. Medical management: Appreciate medical management consultation. Case was discussed with medicine. 6. Chronic anemia: Patient on iron ferrous sulfate. Awaiting labs returned today. Patient is stable. Lives chronically with hemoglobin of 8-9. No further active treatment required at this time. Hemoglobin currently 7.6. Vitals are stable and patient asymptomatic. Will continue to monitor labs. 7. Disposition: At this time we are waiting recommendations from infectious disease. Care management team currently involved with appropriate and safe discharge planning. Patient states she wants to go home but she is concerned as she has no help at home. I did explain to her once we have the final antibiotics that may help determine if she can go home with home health. May need to consider assisted facility. Patient will continue on current pain regimen above. Will repeat labs tomorrow. I have reviewed the [place] Automated Rx Reporting System (OARRS) report for this patient for refill pattern and other prescriber involvement as part of the appropriate surveillance for the provision of acute and chronic controlled medications. The report was requested and reviewed on the date of this entry and was considered in the prescribing process. This dictation was created using voice recognition software. Phonetic and/or grammatical errors may exist.
[2024-06-26] MEDS: Ferrous Sulfate 325 MG Tablet PO (13:05)
[2024-06-26 16:49] VITALS: BP 103/77; PULSE 87; RESP 16; TEMP 37; O2SAT 100
[2024-06-26] MEDS: oxyCODONE 5 MG Tablet PO (17:06)
[2024-06-26 22:20] VITALS: BP 122/65; PULSE 82; RESP 16; TEMP 36.6; O2SAT 99
[2024-06-27 04:00] VITALS: BP 111/66; PULSE 75; RESP 16; TEMP 36.6; O2SAT 99
[2024-06-27] MEDS: Acetaminophen 500 MG Tablet 1000 MG PO ×3 (05:53→22:41)
[2024-06-27] MEDS: Cefazolin 1 GM/50 ML BAG IV (05:53)
[2024-06-27] MEDS: Levothyroxine 25 MCG TABLET PO (05:53)
[2024-06-27] MEDS: Folic Acid 1 MG Tablet PO (08:34)
[2024-06-27] MEDS: Senna/Docusate Sodium 1 Tablet 2 TABLET PO ×2 (08:35→22:41)
[2024-06-27] MEDS: Aspirin 81 MG TAB.CHEW PO ×2 (08:35→18:10)
[2024-06-27] MEDS: Famotidine 20 MG Tablet PO (08:35)
[2024-06-27] MEDS: morphine SR 15 MG Tablet PO ×2 (08:36→22:40)
[2024-06-27] MEDS: Magnesium Hydroxide 30 ML UDC 15 ML PO ×2 (08:36→22:41)
[2024-06-27 08:40] LABS: Hematocrit 26.2 % (37-47); Hemoglobin 8.2 g/dL (12.0-15.0); Mean Corp Hgb Conc 31.3 g/dL (32-36); Mean Corpuscular Hgb 29.9 pg (27.0-32.0); Mean Corpuscular Volume 95.6 fL (81-99); Mean Platelet Vol. 9.4 fl (6.2-12.0); Platelet Count 424 K/mm3 (150-450); RBC Distribution Width CV 14.8 % (11.6-14.6); RBC Distribution Width SD 50.7 fl (35.1-43.9); Red Blood Count 2.74 M/mm3 (4.2-5.4); White Blood Count 7.7 K/mm3 (4.4-11.0)
--- NOTE | 2024-06-27 09:29 | CASEMGMT ---
Discharge Planning A list of?HH providers including quality and resource use data and consistent with the patient's preferred geographic region, medical needs, and insurance network was created in [employer] Guide.? This list was provided to the RN LOWELL. Gloria Ibanez, Discharge Planning Asst
[2024-06-27 10:00] VITALS: BP 134/81; PULSE 86; RESP 18; TEMP 36.6; O2SAT 99
--- NOTE | 2024-06-27 10:23 | PCM.PN.HOSP ---
Subjective Subjective Doing well, no issues overnight. Pain is controlled Objective Data Objective Data Vital Signs: Vital Signs Temp Pulse Resp BP Pulse Ox O2 Del Method O2 Flow Rate 97.8 F 75 16 111/66 99 Room Air 4 06/27/24 04:00 06/27/24 04:00 06/27/24 04:00 06/27/24 04:00 06/27/24 04:00 06/27/24 04:00 06/24/24 16:45 Oxygen Flow Rate (L/min) 4 Oxygen Delivery Method Room Air Weight: 91 lb Body Mass Index (BMI) 19.0 Intake & Output: Intake and Output for Last 24 Hours 06/26/24 06/27/24 06/28/24 03:59 03:59 03:59 Intake Total 387.75 / 387.75 1100 / 1100 200 / 200 Balance 387.75 / 387.75 1100 / 1100 200 / 200 Lab / Micro Data 06/27/24 08:00 06/25/24 06:50 Labs: Laboratory Results - last 24 hr 06/27/24 08:00: WBC 7.7, RBC 2.74 L, Hgb 8.2 L, Hct 26.2 L, MCV 95.6, MCH 29.9, MCHC 31.3 L, RDW Std Deviation 50.7 H, RDW Coeff of Nilsa 14.8 H, Plt Count 424, MPV 9.4 Micro: Microbiology 06/24/24 12:45 Tissue - Shoulder Gram Stain - Final 06/24/24 12:45 Tissue - Shoulder Wound Culture - Preliminary No growth-Final to follow 06/24/24 12:45 Tissue - Shoulder Anaerobic Culture - Preliminary No growth in 48 hours. 06/24/24 12:45 Tissue - Shoulder Gram Stain - Final 06/24/24 12:45 Tissue - Shoulder Wound Culture - Preliminary No growth-Final to follow 06/24/24 12:45 Tissue - Shoulder Anaerobic Culture - Preliminary No growth in 48 hours. 06/24/24 12:45 Tissue - Shoulder Gram Stain - Final 06/24/24 12:45 Tissue - Shoulder Wound Culture - Preliminary No growth-Final to follow 06/24/24 12:45 Tissue - Shoulder Anaerobic Culture - Preliminary No growth in 48 hours. Physical Exam Narrative general: Alert, Oriented x3, Cooperative, No apparent distress HEENT: Atraumatic, PERRLA, EOMI, Normocephalic Oral: Moist Mucosa Neck: Supple, No JVD Lungs: Clear to auscultation, Normal air movement, No rhonchi, No wheeze, No rales Cardiovascular: Regular rate, Regular Rhythm, Normal S1, Normal S2, No murmurs Abdomen: Soft, Non Tender, Non-Distended, No Hepato-splenomegaly Extremities: Right upper extremity in a sling Skin: Dressing intact Musculoskeletal: No Tenderness to Palpation of Joints or Extremities Neurological: No focal neurological deficits, Motor Exam 5/5 strength throughout, Sensory exam intact to light touch and pain Psych/Mental Status: Normal Affect, Appropriate Assessment & Plan Assessment/Plan (1) 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 Right shoulder periprosthetic joint infection ? Orthopedic surgery primary. ID consulted. S/p debridement, synovectomy, implant removal and placement of antibiotic delivery system/spacer and right shoulder with Dr. Tomlinson on 06/24. Patient tolerated procedure well, no intraoperative complications. Intraoperative cultures pending. Continue IV Ancef for now per orthopedics. Further management per orthopedics. 06/27/2024: Appears medically stable for discharge with outpatient follow-up 2. Chronic normocytic anemia ? Hemoglobin 7.8 postoperatively on 06/25, last hemoglobin was 9.8 on 06/03. Suspected due to blood loss intraoperatively. Patient hemodynamically stable. Most recent hemoglobin 7.6 on 06/26, stable. Continue home iron supplement. 06/27/2024: Hemoglobin today is 8.2. She does state that her hemoglobin is always on the lower end to do recommend outpatient follow-up with her PCP for continued monitoring 3. Chronic back pain/neck pain ? On p.o. morphine 50 mg twice daily for this at home. Was discussed with orthopedics and will continue her home p.o. morphine in addition to scheduled Tylenol, as needed p.o. oxycodone and as needed IV morphine as needed for pain control. Continue scheduled senna and low-dose milk of magnesia for bowel regimen. 4. Hypothyroidism ? Continue home Synthroid. 5. Former tobacco use ? Encouraged continued cessation. DVT: Aspirin twice daily Will sign off Charges/Coding Visit Charges Inpatient E&M: 49205 Subs Hosp L2
--- NOTE | 2024-06-27 10:35 | CASEMGMT ---
Addendum entered by Teena Barros 06/27/24 15:19: GREGORIA ETIENNE into pt room, pt states she called one taxi company and they are too expensive. She does not want to call the other one. She states her dtr called and she will be in tonight to discuss options. She is thinking her dtr can do the infusion after she gets off work. She states her dtr is going to [place] towards the end of [place] and could not do it for 5 days. Discussed the possibility of her son doing it during that time. She states he will probably say that he does not want to get involved. Provided pt with a [facility] list that dc licensed physical therapist assistant created, she is aware that if this is the route that she decides to have her top 3 preferences and GREGORIA ETIENNE can make referrals in the morning. Pt berbalizes understanding. TC to [facility] Infusion, cancelled referral for tomorrow. TC to [facility] van and cancelled the transportation set up. Addendum entered by Teena Barros 06/27/24 14:19: GREGORIA ETIENNE into pt room, pt aware that she can not drive for 6 weeks. Pt states that she is still trying for transportation to get her to the infusion center. Pt Has 12 rides with her insurance. Discussed possible taxi, provided pt with two local taxi companies. Pt to call and GREGORIA ETIENNE to check back. Pt states she does not want a SNF still. Addendum entered by Teena Barros 06/27/24 11:47: GREGORIA ETIENNE into pt room, pt aware of the hospital van's availability. Pt still confirms she has no one else to take her. Discussed SNF. Pt is adamant that she will not do this. Pt is aware that we either need to secure transportation or have a cg who is able to learn. Pt states she wants to drive herself. Asked PA for driving restrictions, will follow for answer. Original Note: GREGORIA ETIENNE received IV atb rx from ID. GREGORIA ETIENNE into pt room, ID just finished explaining options for pt for IV atb. GREGORIA ETIENNE also provided information. Pt states her son is home but he has to find a job so he cannot learn IV. She states she does not have anyone to assist her. Discussed outpt infusion, pt would like this option and states her son could take her. Pt called her son while GREGORIA ETIENNE into pt room, he is not agreeable to taking pt daily. Discussed the hospital van to see if this could be an option. Pt feels she could get in and out of it. Pt agreeable to this. Pt prefers a 1pm time to have the infusion. TC to [facility] Infusion, spoke with Robyn, she states they can accommodate this time starting tomorrow but on Thursday it would be 1230. TC to [facility] van, spoke with Carlos, they are able to accommodate Thursday this week and and Thu of next week only. Placed this appt with them pending speaking with pt.
--- NOTE | 2024-06-27 11:02 | PCM.CONS.GEN ---
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 Taken to OR 06/24/[address] Tomlinson for I&D and spacer placement. Picc in place, will write for 6 weeks iv ceftriaxone, stop date 08/05/24 with weekly labs and ID followup in 2 weeks. D/w social media project manager. Will follow, thank you HPI Consult Data Date of Consult: 06/27/24 HPI Narrative Reason for Consultation: PJI HPI Narrative: DOUG REYES, is a 73 F with prior R shoulder replacement, reports progressive pain in R shoulder since 03/2024, no known inciting events. No fever, no night sweats. In early Jun, developed red/tender/swelling over R shoulder. Aspiration done, taken to OR 06/24/[address] Tomlinson for spacer placement. Feeling ok, on ancef, she is R handed. Full ROS performed and neg except as noted above. [facility] Medical History Hx of thyroid disease Primary osteoarthritis, right shoulder Right shoulder pain Primary osteoarthritis, left shoulder Fibromyalgia Muscular pain Wears dentures Post-menopausal Former smoker History of pain when walking Knee fracture, right Patellar fracture Anemia Health care maintenance Chronic back pain Bilateral knee pain Osteoporosis Wears glasses Osteoporosis Osteoarthritis Headache, migraine Back pain Arthritis Home Medications ?Medication ?Instructions ?Recorded ?Last Taken ?Type acetaminophen 500 mg tablet 1,000 mg PO Q8 PRN pain 07/13/23 07/21/23 History levothyroxine 25 mcg tablet 25 mcg PO DAILY THYROID 04/12/24 06/23/24 History morphine 15 mg tablet,extended 15 mg PO BID PAIN 05/26/24 Unknown History release ceftriaxone 2 gram intravenous 2 g IV DAILY 39 days 06/27/24 Unknown Rx solution Allergy/AdvReac Type Severity Reaction Status Date / Time grass pollen Allergy Intermediate sinus Verified 06/24/24 10:31 issues Family History Father Hypertension Arthritis CVA (cerebral vascular accident) Mother CVA (cerebral vascular accident) Hypertension Alcoholism Surgical History (Updated 06/25/24 @ 07:[address] Steve Tomlinson MD) Hx of shoulder replacement Hx of total hip arthroplasty History of esophagogastroduodenoscopy (EGD) Hx of total hip arthroplasty Hx of neck surgery Hx of hemorrhoidectomy History of back surgery History of hip replacement, total S/P cervical spinal fusion S/P cervical spinal fusion H/O shoulder replacement Social History Smoking Status: Former smoker alcohol intake: never substance use type: does not use what type of physical activity do you participate in: walking frequency: daily Physical Exam Const alert, oriented x3 and no apparent distress General Appearance: cooperative HEENT normocephalic and head/scalp atraumatic Eyes PERRL and EOMs intact bilaterally Neck supple and No nodes Resp normal air movement and clear to auscultation bilaterally Cardio regular rate and regular rhythm GI soft to palpation, non-tender and non-distended Extremity General Extremity: Negative for edema Skin no rashes or lesions noted Skin Narrative: R shoulder bandaged Neuro CN's II-XII intact bilaterally Lab / Micro Data Attestation: I reviewed the patient's lab results. 06/27/24 08:00 06/25/24 06:50 Labs: Laboratory Results - last 24 hr 06/27/24 08:00: WBC 7.7, RBC 2.74 L, Hgb 8.2 L, Hct 26.2 L, MCV 95.6, MCH 29.9, MCHC 31.3 L, RDW Std Deviation 50.7 H, RDW Coeff of Nilsa 14.8 H, Plt Count 424, MPV 9.4 Micro: Microbiology 06/24/24 12:45 Tissue - Shoulder Gram Stain - Final 06/24/24 12:45 Tissue - Shoulder Wound Culture - Preliminary No growth-Final to follow 06/24/24 12:45 Tissue - Shoulder Anaerobic Culture - Preliminary No growth in 48 hours. 06/24/24 12:45 Tissue - Shoulder Gram Stain - Final 06/24/24 12:45 Tissue - Shoulder Wound Culture - Preliminary No growth-Final to follow 06/24/24 12:45 Tissue - Shoulder Anaerobic Culture - Preliminary No growth in 48 hours. 06/24/24 12:45 Tissue - Shoulder Gram Stain - Final 06/24/24 12:45 Tissue - Shoulder Wound Culture - Preliminary No growth-Final to follow 06/24/24 12:45 Tissue - Shoulder Anaerobic Culture - Preliminary No growth in 48 hours.
[2024-06-27] MEDS: Ceftriaxone 2 GM in 0.9% Normal Saline (50mL MB+) 50 ML IV (11:35)
[2024-06-27] MEDS: Ferrous Sulfate 325 MG Tablet PO (11:36)
--- NOTE | 2024-06-27 12:44 | PN.ORTHO_ITS ---
Subjective Subjective Patient was sitting in bed upon examination. Patient was very obviously frustrated. Patient denies any chest pain, shortness of breath, dizziness, lightheadedness, nausea, vomiting, calf pain. Patient states that she is doing well and has pain intermittently but has take pain medication and does okay. Patient is in pain management with Dr. Christianson. Patient normally is taking MS Contin. Patient is on Tylenol and oxycodone for breakthrough pain. Patient denies any new numbness or tingling. Patient is extremely combative during visit today. Patient is refusing all medical recommendations. Patient is threatening to leave the hospital and threatening to drive before the recommended 6 weeks. Patient states that at this time she will not stay in this hospital for another day and will not go to a [place] health care facility. Patient states that she also does not have someone to learn home health when she goes home. Patient states that her insurance was able to give her a ride for 12 days but that is it. Patient also states she does not have any body to give her a ride for 6 weeks and case management is unable to schedule transportation for 6 weeks to outpatient infusion. Patient states that she wants to go home and will not go anywhere else however patient does not have the care nor transportation needs at home to leave. Patient was seen by infectious disease and is on ceftriaxone with a PICC line for 6 weeks of IV antibiotics. Case management is involved and is trying to help decide placement and safe discharge. Objective Data Objective Data Vital Signs: Vital Signs Temp Pulse Resp BP Pulse Ox O2 Del Method O2 Flow Rate 98 F 86 18 134/81 H 99 Room Air 4 06/27/24 10:06/27/24 10:06/27/24 10:06/27/24 10:06/27/24 10:06/27/24 10:06/24/24 16:45 Oxygen Flow Rate (L/min) 4 Oxygen Delivery Method Room Air Weight: 41.277 kg Body Mass Index (BMI) 19.0 Intake & Output: Intake and Output for Last 24 Hours 06/25/24 06/26/24 06/27/24 23:59 23:59 23:59 Intake Total 187.75 / 387.75 1100 / 1300 400 / 400 Balance 187.75 / 387.75 1100 / 1300 400 / 400 Lab / Micro Data 06/27/24 08:00 06/25/24 06:50 Labs: Laboratory Results - last 24 hr 06/27/24 08:00: WBC 7.7, RBC 2.74 L, Hgb 8.2 L, Hct 26.2 L, MCV 95.6, MCH 29.9, MCHC 31.3 L, RDW Std Deviation 50.7 H, RDW Coeff of Nilsa 14.8 H, Plt Count 424, MPV 9.4 Micro: Microbiology 06/24/24 12:45 Tissue - Shoulder Gram Stain - Final 06/24/24 12:45 Tissue - Shoulder Wound Culture - Preliminary No growth-Final to follow 06/24/24 12:45 Tissue - Shoulder Anaerobic Culture - Preliminary No growth in 48 hours. 06/24/24 12:45 Tissue - Shoulder Gram Stain - Final 06/24/24 12:45 Tissue - Shoulder Wound Culture - Preliminary No growth-Final to follow 06/24/24 12:45 Tissue - Shoulder Anaerobic Culture - Preliminary No growth in 48 hours. 06/24/24 12:45 Tissue - Shoulder Gram Stain - Final 06/24/24 12:45 Tissue - Shoulder Wound Culture - Preliminary No growth-Final to follow 06/24/24 12:45 Tissue - Shoulder Anaerobic Culture - Preliminary No growth in 48 hours. Physical Exam Narrative Vital signs stable and afebrile. Dressing is clean dry and intact. UltraSling fitting appropriately. Sensation intact to light touch. Neurovascularly intact overall. EVAN hose are in place bilaterally. SCDs were requested to be put on bilaterally. Negative Homans bilaterally. 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 1. Pain control: Patient is on chronic pain control with Dr. Christianson will resume her MS Contin today. Continue with Tylenol and use oxycodone for breakthrough pain. Patient does not appear to be in any distress today. She states her pain is improved today. 2. DVT prophylaxis: Aspirin 81 mg p.o. twice daily 3. Infectious disease: Patient had PICC line ordered and placed. Infectious disease has been involved and patient is currently going to be on ceftriaxone for 6 weeks postoperatively with PICC line. Microbiology has been reviewed and currently has no growth. Appreciate recommendations from infectious disease for discharge planning. 4. Therapy: Patient will wear sling at all times. Should be able to work with therapy on gentle range of motion pendulum swings primarily. [facility] Occupational Therapy should work on patient ADLs. Patient will be in a sling for 6 weeks and driving recommendations are no driving for 6 weeks due to sling use. 5. Medical management: Appreciate medical management consultation. Case was discussed with medicine. 6. Chronic anemia: Patient on iron ferrous sulfate. Awaiting labs returned today. Patient is stable. Lives chronically with hemoglobin of 8-9. No further active treatment required at this time. Hemoglobin currently 8.2. Vitals are stable and patient asymptomatic. Will continue to monitor labs. 7. Disposition: Patient is currently combative and refusing medical advice at this time. Patient has threatened to leave the hospital and drive before the 6 weeks recommendation. Patient is stating that she will not go to a nursing facility, will not stay here, although does not have care at home for home health or transportation to outpatient infusion for 6 weeks. Case management team currently involved with appropriate and safe discharge planning. Patient is stating that she wants to go home and only home. I think patient would benefit from [facility] facility based off of no one at home to help with home health, her son not being able to learn home health, and not having transportation for the full 6 weeks. May need to consider [facility] facility. Patient will continue on current pain regimen above. Patient will follow-up per postoperative instructions. I have reviewed the [place] Automated Rx Reporting System (OARRS) report for this patient for refill pattern and other prescriber involvement as part of the appropriate surveillance for the provision of acute and chronic controlled medications. The report was requested and reviewed on the date of this entry and was considered in the prescribing process. This dictation was created using voice recognition software. Phonetic and/or grammatical errors may exist.
--- NOTE | 2024-06-27 13:29 | CASEMGMT ---
Discharge Planning A list of?SNF providers including quality and resource use data and consistent with the patient's preferred geographic region, medical needs, and insurance network was created in [employer] Guide.? This list was provided to the SW. Gloria Ibanez Discharge Planning Asst.
[2024-06-27 16:00] VITALS: BP 121/62; PULSE 88; RESP 18; TEMP 37.2; O2SAT 99
[2024-06-27 22:32] VITALS: BP 128/76; PULSE 94; RESP 15; TEMP 36.9; O2SAT 97
[2024-06-28 04:00] VITALS: BP 135/75; PULSE 80; RESP 15; TEMP 36.8; O2SAT 100
[2024-06-28] MEDS: Acetaminophen 500 MG Tablet 1000 MG PO (06:37)
[2024-06-28] MEDS: Levothyroxine 25 MCG TABLET PO (06:37)
[2024-06-28 08:15] VITALS: BP 117/66; PULSE 80; RESP 17; TEMP 37.2; O2SAT 97
[2024-06-28] MEDS: Ceftriaxone 2 GM in 0.9% Normal Saline (50mL MB+) 50 ML IV (08:44)
[2024-06-28] MEDS: Folic Acid 1 MG Tablet PO (08:44)
[2024-06-28] MEDS: morphine SR 15 MG Tablet PO (08:44)
[2024-06-28] MEDS: Aspirin 81 MG TAB.CHEW PO ×2 (08:44→16:48)
[2024-06-28] MEDS: Famotidine 20 MG Tablet PO (08:44)
[2024-06-28] MEDS: 0.9% Saline Lock 10 ML Syringe IV (08:45)
--- NOTE | 2024-06-28 09:23 | CASEMGMT ---
Addendum entered by Teena Pancho Fiorella 06/28/24 16:05: Green sheet on chart for dc instructions to be sent to [facility] as well as [facility]. Addendum entered by Teena Pancho Fiorella 06/28/24 11:40: Pt is aware that [facility] has accepted her for care. She denies any further questions at this time. Addendum entered by Teena Barros 06/28/24 11:18: [facility] has accepted pt for services. Addendum entered by Teena Barros 06/28/24 10:53: Updated [facility] referral with [facility] documentation for picc placement. Addendum entered by Teena Barros 06/28/24 10:33: Updated Tj GUTIERREZ on pt plan for dc. Addendum entered by Teena Barros 06/28/24 10:30: Received tc from Gunjan from [facility], they are unable to staff pt for SOC tomorrow. Requested dc registered medical assistant send referral to second preference. Addendum entered by Teena Barros 06/28/24 09:59: [id number]-Received tc from renetta Echeverria dtr who states she will learn the IV for her mother and perform it daily. She states she can be at her mother's house to learn tomorrow at 3:15pm. GREGORIA ETIENNE into pt room, she is aware of the above and agreeable to this. Discussed infusion companies, pt has no preference. Discussed the HH list given yesterday, pt chose 1. [facility] 2. [facility]. TC to Gunjan at [facility], referral made. Referral sent to [facility] via [facility]. Original Note: RN LOWELL into pt room, pt states her dtr was supposed to call the RN CM. Made her aware that this RN CM has not received a tc yet. Asked pt what she decided about having HHC vs going to the outpt infusion center. Pt states she is still undecided. She states her grandson may be able to take her to the infusion center. Made pt aware that to get this set up at home for a dc today, this RN CM will need an answer rather quickly. Pt agreed in one hour she will have an answer. GREGORIA CM to check back.
--- NOTE | 2024-06-28 10:34 | CASEMGMT ---
Discharge Planning HH referral sent to [facility]. Gloria Ibanez DC Planning Asst.
[2024-06-28] MEDS: Ferrous Sulfate 325 MG Tablet PO (11:47)
--- NOTE | 2024-06-28 14:11 | NURSING ---
This Pt called out I'm ready to go home now. Pt and her daughter waiting in room. This RN informed them that there was no discharge order and that LOWELL Dickinson RN informed this RN that Dr. Davi Spencer's PA was to be in to discharge her today between 1400 and 1500 this afternoon. Pt states that she was never told this. Teena ETIENNE, RN informed this RN that she did tell patient about this.
[2024-06-28 15:02] VITALS: BP 131/84; PULSE 103; RESP 17; TEMP 36.8; O2SAT 97
--- NOTE | 2024-06-28 17:44 | PN.ORTHO_ITS ---
Subjective Subjective Patient is sitting comfortably in bed in street close as she is ready to go home. Patient's daughter is at bedside. Patient and her daughter expressed readiness for home. Patient states that she will be doing home health and that her daughter learned with home health today. Patient denies any shortness of breath, chest pain, calf pain, fever, chills, dizziness, nausea, vomiting. Patient denies any adverse events overnight. Objective Data Objective Data Vital Signs: Vital Signs Temp Pulse Resp BP Pulse Ox O2 Del Method O2 Flow Rate 98.2 F 103 H 17 131/84 H 97 Room Air 4 06/28/24 15:02 06/28/24 15:02 06/28/24 15:02 06/28/24 15:02 06/28/24 15:02 06/28/24 15:02 06/24/24 16:45 Oxygen Flow Rate (L/min) 4 Oxygen Delivery Method Room Air Weight: 41.277 kg Body Mass Index (BMI) 19.0 Intake & Output: Intake and Output for Last 24 Hours 06/26/24 06/27/24 06/28/24 23:59 23:59 23:59 Intake Total 1100 / 1300 2000 / 2200 610 / 610 Balance 1100 / 1300 2000 / 2200 610 / 610 Lab / Micro Data 06/27/24 08:00 06/25/24 06:50 Micro: Microbiology 06/24/24 12:45 Tissue - Shoulder Gram Stain - Final 06/24/24 12:45 Tissue - Shoulder Wound Culture - Final No growth aerobically. 06/24/24 12:45 Tissue - Shoulder Anaerobic Culture - Preliminary No growth in 48 hours. 06/24/24 12:45 Tissue - Shoulder Gram Stain - Final 06/24/24 12:45 Tissue - Shoulder Wound Culture - Final No growth aerobically. 06/24/24 12:45 Tissue - Shoulder Anaerobic Culture - Preliminary No growth in 48 hours. 06/24/24 12:45 Tissue - Shoulder Gram Stain - Final 06/24/24 12:45 Tissue - Shoulder Wound Culture - Final No growth aerobically. 06/24/24 12:45 Tissue - Shoulder Anaerobic Culture - Preliminary No growth in 48 hours. Physical Exam Narrative Vital signs stable and afebrile. Dressing is clean dry and intact. UltraSling fitting appropriately. Sensation intact to light touch. Neurovascularly intact overall. EVAN hose are in place bilaterally. Negative Homans bilaterally. 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 1. Pain control: Patient is on chronic pain control with Dr. Christianson will resume her MS Contin today. Continue with Tylenol and use oxycodone for breakthrough pain. Patient does not appear to be in any distress today. She states her pain is improved today. 2. DVT prophylaxis: Aspirin 81 mg p.o. twice daily 3. Infectious disease: Patient had PICC line ordered and placed. Infectious disease has been involved and patient is currently going to be on ceftriaxone for 6 weeks postoperatively with PICC line. Microbiology has been reviewed and currently has no growth. Appreciate recommendations from infectious disease for discharge planning. 4. Therapy: Patient will wear sling at all times. Should be able to work with therapy on gentle range of motion pendulum swings primarily. Distally Occupational Therapy should work on patient ADLs. Patient will be in a sling for 6 weeks and driving recommendations are no driving for 6 weeks due to sling use. 5. Medical management: Appreciate medical management consultation. Case was discussed with medicine. 6. Chronic anemia: Patient on iron ferrous sulfate. Awaiting labs returned today. Patient is stable. Lives chronically with hemoglobin of 8-9. No further active treatment required at this time. Hemoglobin 8.2 yesterday 06/27/24. Vitals are stable and patient asymptomatic. Will continue to monitor labs. 7. Microbiology was checked today with some still pending and some final resulted with no growth seen on cultures. Will continue to be reviewed and infectious disease has been involved. 8. Disposition: Case management has been involved for safe discharge planning. Patient and her daughter are here today. Her daughter has learned home health and patient will be going home with home health with the help of her daughter. Patient is stating that she wants to go home and only home. Patient has been accepted for home health and daughter was in today for learning of home health duties. Patient will continue on current pain regimen above. Patient will follow-up per postoperative instructions. I have reviewed the [place] Automated Rx Reporting System (OARRS) report for this patient for refill pattern and other prescriber involvement as part of the appropriate surveillance for the provision of acute and chronic controlled medications. The report was requested and reviewed on the date of this entry and was considered in the prescribing process. This dictation was created using voice recognition software. Phonetic and/or grammatical errors may exist.
--- NOTE | 2024-06-28 17:51 | DCINST_ITS ---
Discharge Instructions Diet Discharge Diet: No restrictions DC O2, CPAP, BIPAP needs Home O2 Discharge instructions: No Dressing / Incision Discharge Activity: May Not Drive (For 6 weeks while in sling.) Dressing / Incision Call your doctor if your incision/area has: Continuous Slow Oozing, Sudden Increased Bleeding, Increased Pain/ Swelling and Foul Smelling Discharge Call your doctor if you observe: Fever of 101 or Higher, Coldness, Increased Pain, Inability to urinate, Inability to have a bowel movement, Shortness of breath, Dizziness, Fainting spells, Chest pain, Increased palpitations (irregular heartbeat), Calf discomfort and Uncontrolled pain Change Dressing in: 1 day (May remove dressing on postop day 5 06/29/24.) Cleanse incision/area with: Soap & Water (Gentle soap and water. No soaking or submerging for 6 weeks postoperatively.) Additional Dressing/Incision Instructions:: Continue ferrous sulfate managed chronically by primary care provider. Potential for constipation on the ferrous sulfate. Contact our office if having further constipation. Do not use any ointments, Neosporin, salves, alcohol pads over the incision for 6 weeks postoperatively. Do not submerge underwater for 6 weeks postoperatively. Continue with EVAN hose/elastic stockings for 2 weeks postoperatively. May remove at nighttime but needs to be placed back on the leg during the day. Do NOT use alcohol with narcotic pain medication. Do NOT make important decisions while taking narcotic medication. If you have problems with taking your medication (rash, itching, nausea, etc.) call the office at once. Follow Up Care Test Results: Test results from this visit will be discussed in further detail at your follow- up appointment, if applicable. Discharge Plan Admission Admit Date/Time: 06/24/24 15:04 Attending Provider: Steve Tomlinson Primary Care Provider: Ofelia العراقي Consulting Providers: Audrey Healy; Zak Michaels; Jersey Irwin; Ron Shaikh Discharge Orders/Prescriptions Prescriptions: New ceftriaxone 2 gram recon soln 2 g IV DAILY 39 Days Rx Instructions: stop date 08/05/24. Dx: shoulder PJI. Weekly bmp, cbc, LFT, and esr. Fax to [phone]. Routine picc care per protocol. acetaminophen 500 mg Tablet 1,000 mg PO TID Qty: 0 0RF aspirin 81 mg capsule 81 mg PO BID 30 Days Qty: 0 0RF Rx Instructions: DVT prophylaxis. famotidine 20 mg Tablet 20 mg PO DAILY 30 Days Qty: 30 0RF ferrous sulfate [FeroSul] 325 mg (65 mg iron) Tablet 325 mg PO DAILY@1200 14 Days Qty: 14 0RF folic acid 1 mg Tablet 1 mg PO BREAKFAST 14 Days Qty: 14 0RF oxycodone 5 mg Tablet 5 - 10 mg PO Q4H PRN PRN (Reason: as needed for pain.) 7 Days Qty: 30 0RF sennosides-docusate sodium [Stimulant Laxative Plus] 8.6-50 mg Tablet 2 tab PO BID Qty: 0 0RF Rx Instructions: Take until first bowel movement and then as needed. Continued levothyroxine 25 mcg tablet 25 mcg PO DAILY morphine 15 mg tablet extended release 15 mg PO BID No Action acetaminophen 500 mg Tablet 1,000 mg PO Q8 PRN (Reason: pain) Referrals / Follow Up: Ofelia العراقي [facility] [employer] [facility] [Primary Care Provider] - Disposition Disposition (needs filled in before D/C Order can be placed): Home Health Service
--- NOTE | 2024-06-28 18:08 | PCM.DC.SUM ---
Providers Date of Admission: 06/24/24 Primary Care Physician: Ofelia العراقي, DALTON-C Consultations 06/24/24 15:04 Consult: Infectious Disease Routine Consulting Provider: Ron Shaikh Reason for Consult: r tsa pji EMERGENT Consult: No Notified: Yes Date Notified: 06/24/24 Time Notified: 15:05 Method of Notification: Verbal Comments:: DR TOMLINSON SPOKE W/DR SHAIKH PERSONALLY 06/24/24 15:05 Consult: Hospitalist Routine Consulting Provider: [facility] Reason for Consult: post op med management EMERGENT Consult: No Notified: Yes Date Notified: 06/24/24 Time Notified: 20:00 Method of Notification: Verbal Reason For Visit: ERAS, RIGHT SHOULDER SOFT TISSUE BI Diagnosis Discharge Diagnosis (1) 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 1. Pain control: Patient is on chronic pain control with Dr. Christianson will resume her MS Contin today. Continue with Tylenol and use oxycodone for breakthrough pain. Patient does not appear to be in any distress today. She states her pain is improved today. 2. DVT prophylaxis: Aspirin 81 mg p.o. twice daily 3. Infectious disease: Patient had PICC line ordered and placed. Infectious disease has been involved and patient is currently going to be on ceftriaxone for 6 weeks postoperatively with PICC line. Microbiology has been reviewed and currently has no growth. Appreciate recommendations from infectious disease for discharge planning. 4. Therapy: Patient will wear sling at all times. Should be able to work with therapy on gentle range of motion pendulum swings primarily. Dist[facility] Occupational Therapy should work on patient ADLs. Patient will be in a sling for 6 weeks and driving recommendations are no driving for 6 weeks due to sling use. 5. Medical management: Appreciate medical management consultation. Case was discussed with medicine. 6. Chronic anemia: Patient on iron ferrous sulfate. Awaiting labs returned today. Patient is stable. Lives chronically with hemoglobin of 8-9. No further active treatment required at this time. Hemoglobin 8.2 yesterday 06/27/24. Vitals are stable and patient asymptomatic. Will continue to monitor labs. 7. Microbiology was checked today with some still pending and some final resulted with no growth seen on cultures. Will continue to be reviewed and infectious disease has been involved. 8. Disposition: Case management has been involved for safe discharge planning. Patient and her daughter are here today. Her daughter has learned home health and patient will be going home with home health with the help of her daughter. Patient is stating that she wants to go home and only home. Patient has been accepted for home health and daughter was in today for learning of home health duties. Patient will continue on current pain regimen above. Patient will follow-up per postoperative instructions. I have reviewed the [place] Automated Rx Reporting System (OARRS) report for this patient for refill pattern and other prescriber involvement as part of the appropriate surveillance for the provision of acute and chronic controlled medications. The report was requested and reviewed on the date of this entry and was considered in the prescribing process. This dictation was created using voice recognition software. Phonetic and/or grammatical errors may exist. Medications at Discharge Home Medications acetaminophen 500 mg tablet 1,000 mg PO Q8 PRN pain 07/13/23 levothyroxine 25 mcg tablet 25 mcg PO DAILY THYROID 04/12/24 morphine 15 mg tablet,extended release 15 mg PO BID PAIN 05/26/24 ceftriaxone 2 gram intravenous solution 2 g IV DAILY 39 days 06/27/24 acetaminophen 500 mg tablet 1,000 mg (2 x 500 mg) PO TID #0 tabs 06/28/24 aspirin 81 mg capsule 81 mg PO BID 30 days #0 caps 06/28/24 famotidine 20 mg tablet 20 mg PO DAILY 30 days #30 tabs 06/28/24 ferrous sulfate 325 mg (65 mg iron) tablet (FeroSul) 325 mg PO DAILY@1200 14 days #14 tabs 06/28/24 folic acid 1 mg tablet 1 mg PO BREAKFAST 14 days #14 tabs 06/28/24 oxycodone 5 mg tablet 5 - 10 mg (1 - 2 x 5 mg) PO Q4H PRN PRN as needed for pain. 7 days #30 tabs 06/28/24 sennosides 8.6 mg-docusate sodium 50 mg tablet (Stimulant Laxative Plus) 2 tab PO BID #0 tabs 06/28/24 Hospital Course Operations - (Right shoulder explant with bone grafting of the glenoid and placement of articulating antibiotic spacer. ) Procedures PICC line placement Summary of Care Provided Hospital Course: Patient is a 73-year-old female who had a Right shoulder explant with bone grafting of the glenoid and placement of articulating antibiotic spacer on 06/24/2024. Patient is in pain management with Dr. Woods and takes MS Bishnu. Patient will continue on Tylenol and the use of oxycodone for breakthrough pain. Patient will be placed on aspirin 81 mg 2 times daily for 4 weeks postoperatively. Due to infection patient has been followed by infectious disease and had a PICC line placed with IV antibiotics for 6 weeks of ceftriaxone. Micro pathology has been reviewed and to this point shows no growth. Patient will be in UltraSling for 6 weeks postoperatively. Patient is not to drive for 6 weeks postoperatively. Patient does have chronic anemia which is managed by primary care provider. Patient is on ferrous sulfate at home. Patient states that she has Tylenol at home. Patient states that she will get aspirin 81 mg [id number] at pharmacy. Patient states that she does have ferrous sulfate and folic acid at home from primary care provider and does not need a prescription. Patient is to wear the sling at all times. Patient will be able to work with therapy on gentle range of motion and pendulum swings of the shoulder. Occupational Therapy has worked on activities of daily living with patient. Patient have an extra night stay in the hospital due to ensuring safe discharge planning with case management and medicine doctor. Patient's daughter at this time has agreed to learn home health to help patient with home health. Patient was educated that she will have dressing on until day 5 postoperatively and then patient can remove and take shower directly over top of incision. Patient was instructed to do no soaking or submerging for 6 weeks. Patient was instructed to do no lotions or oils directly over incision for 6 weeks. Patient was combative yesterday and was threatening to leave the hospital and threatening to drive before 6 weeks. Patient was refusing medical advice yesterday. Patient is much more pleasant today with daughter present. Patient's daughter is at bedside today and has met with home health. Patient will follow-up per postoperative instructions from our office. Weight / BMI Weight Weight: 41.277 kg Body Mass Index (BMI) 19.0 ABG / Lab / Microbiology Data 06/27/24 08:00 06/25/24 06:50 Microbiology: Microbiology 06/24/24 12:45 Tissue - Shoulder Gram Stain - Final 06/24/24 12:45 Tissue - Shoulder Wound Culture - Final No growth aerobically. 06/24/24 12:45 Tissue - Shoulder Anaerobic Culture - Preliminary No growth in 48 hours. 06/24/24 12:45 Tissue - Shoulder Gram Stain - Final 06/24/24 12:45 Tissue - Shoulder Wound Culture - Final No growth aerobically. 06/24/24 12:45 Tissue - Shoulder Anaerobic Culture - Preliminary No growth in 48 hours. 06/24/24 12:45 Tissue - Shoulder Gram Stain - Final 06/24/24 12:45 Tissue - Shoulder Wound Culture - Final No growth aerobically. 06/24/24 12:45 Tissue - Shoulder Anaerobic Culture - Preliminary No growth in 48 hours. D/C Instructions Discharge Diet: No restrictions Call your doctor if your incision/area has: Continuous Slow Oozing, Sudden Increased Bleeding, Increased Pain/ Swelling and Foul Smelling Discharge Call your doctor if you observe: Fever of 101 or Higher, Coldness, Increased Pain, Inability to urinate, Inability to have a bowel movement, Shortness of breath, Dizziness, Fainting spells, Chest pain, Increased palpitations (irregular heartbeat), Calf discomfort and Uncontrolled pain Cleanse incision/area with: Soap & Water (Gentle soap and water. No soaking or submerging for 6 weeks postoperatively.) Additional Dressing/Incision Instructions: Continue ferrous sulfate managed chronically by primary care provider. Potential for constipation on the ferrous sulfate. Contact our office if having further constipation. Do not use any ointments, Neosporin, salves, alcohol pads over the incision for 6 weeks postoperatively. Do not submerge underwater for 6 weeks postoperatively. Continue with EVAN hose/elastic stockings for 2 weeks postoperatively. May remove at nighttime but needs to be placed back on the leg during the day. Do NOT use alcohol with narcotic pain medication. Do NOT make important decisions while taking narcotic medication. If you have problems with taking your medication (rash, itching, nausea, etc.) call the office at once. DC O2, CPAP, BIPAP Needs Home O2 Discharge instructions: No Meaningful Use Info Meaningful Use Meaningful Use Diagnoses (Choose all that apply): None applicable Ischemic Stroke Statin Dosing Therapy Reference: STATIN DOSE THERAPY REFERENCE: * Patients > 75 years receive moderate or high dose statin therapy. * Patients 75 years or YOUNGER should receive HIGH intensity statin dose unless contraindicated. You will be required to document reason for non-treatment if statin daily dose does not meet guidelines. HIGH DOSE STATIN THERAPY DAILY Atorvastatin > than or = to 40 mg Rosuvastatin > than or = to 20 mg Amlodipine + Atorvastatin > than or = to 2.5/40 mg Ezetimibe + Simvastatin 10/80 mg Simvastatin 80mg Discharge Plan Admission Admit Date/Time: 06/24/24 15:04 Attending Provider: Steve Tomlinson Primary Care Provider: Ofelia العراقي Consulting Providers: Audrey Healy; Zak Michaels; Jersey Irwin; Ron Shaikh Discharge Orders/Prescriptions Prescriptions: New ceftriaxone 2 gram recon soln 2 g IV DAILY 39 Days Rx Instructions: stop date 08/05/24. Dx: shoulder PJI. Weekly bmp, cbc, LFT, and esr. Fax to [phone]. Routine picc care per protocol. acetaminophen 500 mg Tablet 1,000 mg PO TID Qty: 0 0RF aspirin 81 mg capsule 81 mg PO BID 30 Days Qty: 0 0RF Rx Instructions: DVT prophylaxis. famotidine 20 mg Tablet 20 mg PO DAILY 30 Days Qty: 30 0RF ferrous sulfate [FeroSul] 325 mg (65 mg iron) Tablet 325 mg PO DAILY@1200 14 Days Qty: 14 0RF folic acid 1 mg Tablet 1 mg PO BREAKFAST 14 Days Qty: 14 0RF oxycodone 5 mg Tablet 5 - 10 mg PO Q4H PRN PRN (Reason: as needed for pain.) 7 Days Qty: 30 0RF sennosides-docusate sodium [Stimulant Laxative Plus] 8.6-50 mg Tablet 2 tab PO BID Qty: 0 0RF Rx Instructions: Take until first bowel movement and then as needed. Continued levothyroxine 25 mcg tablet 25 mcg PO DAILY morphine 15 mg tablet extended release 15 mg PO BID No Action acetaminophen 500 mg Tablet 1,000 mg PO Q8 PRN (Reason: pain) Referrals / Follow Up: Ofelia العراقي, DOCUMENT DESIGN SPECIALIST-C [Primary Care Provider] - Disposition Disposition (needs filled in before D/C Order can be placed): Home Health Service
== END 2024-06-28 18:30 | disposition home health service (06) | DRG 496 ==
LOC: SDC 15:59 → MS3 15:59
PROVIDERS: Hospitalist; Admitting Provider Specialist; PCP Nurse Practitioner Family; Referring Provider Specialist; Visit Provider Specialist
PROC: 0RHJ08Z Insertion of Spacer into Right Shoulder Joint, Open Approach (ICD-10-PCS; principal; 2024-06-24 12:30)
DX: T84.59XA Infection and inflammatory reaction due to other internal joint prosthesis, initial encounter (principal); D62 Acute posthemorrhagic anemia; M00.9 Pyogenic arthritis, unspecified; Z68.1 Body mass index [BMI] 19.9 or less, adult; E03.9 Hypothyroidism, unspecified; T84.84XA Pain due to internal orthopedic prosthetic devices, implants and grafts, initial encounter; M79.7 Fibromyalgia; T84.098A Other mechanical complication of other internal joint prosthesis, initial encounter; M54.2 Cervicalgia; Y79.2 Prosthetic and other implants, materials and accessory orthopedic devices associated with adverse incidents; R03.0 Elevated blood-pressure reading, without diagnosis of hypertension; R63.6 Underweight; G89.29 Other chronic pain; R53.1 Weakness; Z79.82 Long term (current) use of aspirin; Z79.890 Hormone replacement therapy; Z79.891 Long term (current) use of opiate analgesic; Z79.899 Other long term (current) drug therapy; Z96.611 Presence of right artificial shoulder joint; Z87.891 Personal history of nicotine dependence
CPT/HCPCS: 36415; 36569; 73030; 80048; 82962; 85027; 87015; 87070; 87075; 87102; 87116; 87176; 87205; 87206; 88300; 94668; 97110; 97166; 97530; 99252; A4216; G0463; J0696; J2405; J3475

== ENCOUNTER → 2024-08-05 | Outpatient (CLI) | payer MEDICARE, SELFPAY ==
[2024-08-05 17:53] LABS: Absolute Lymphocyte Count 1.63 X10^3/uL (0.83-4.51); Absolute Neutrophil Count 8.6 X10^3/uL (2.0-7.7); Basophil# 0.04 X10^3/uL; Basophil% 0.4 % (0-1); Eosinophil# 0.01 X10^3/uL; Eosinophils% 0.1 % (0-5); Hematocrit 34.6 % (37-47); Hemoglobin 11.1 g/dL (12.0-15.0); Lymphocyte # 1.63 X10^3/ul (0.83-4.51); Lymphocyte % 15.2 % (19-41); Mean Corp Hgb Conc 32.1 g/dL (32-36); Mean Corpuscular Hgb 30.3 pg (27.0-32.0); Mean Corpuscular Volume 94.5 fL (81-99); Mean Platelet Vol. 10.5 fl (6.2-12.0); Monocyte# 0.39 X10^3/uL; Monocyte% 3.6 % (0-10); NRBC Flagged by Analyzer 0 % (0-5); Neutrophil # 8.64 X10^3/uL (2.7-7.7); Neutrophil % 80.3 % (47-70); Platelet Count 302 K/mm3 (150-450); RBC Distribution Width SD 52.4 fl (35.1-43.9); Red Blood Count 3.66 M/mm3 (4.2-5.4); White Blood Count 10.8 K/mm3 (4.4-11.0)
[2024-08-05 18:11] LABS: CRP < 3.00 mg/L (0.0-3.0)
[2024-08-05 18:16] LABS: Erythrocyte Sedimentation Rate 21 mm/hr (0-30)
== END | disposition home or self-care (01) ==
LOC: MTLAB 15:52
PROVIDERS: PCP Nurse Practitioner Family; Referring Provider Specialist; Visit Provider Specialist
DX: T84.84XD Pain due to internal orthopedic prosthetic devices, implants and grafts, subsequent encounter (principal); R53.1 Weakness; Z96.611 Presence of right artificial shoulder joint; Y79.2 Prosthetic and other implants, materials and accessory orthopedic devices associated with adverse incidents
CPT/HCPCS: 36415; 85025; 85652; 86140

== ENCOUNTER → 2024-08-19 | Outpatient (CLI) | payer MEDICARE, SELFPAY ==
[2024-08-19 12:38] LABS: Absolute Lymphocyte Count 2.28 X10^3/uL (0.83-4.51); Absolute Neutrophil Count 3.5 X10^3/uL (2.0-7.7); Basophil# 0.05 X10^3/uL; Basophil% 0.8 % (0-1); Eosinophil# 0.16 X10^3/uL; Eosinophils% 2.5 % (0-5); Hematocrit 33.3 % (37-47); Hemoglobin 11.1 g/dL (12.0-15.0); Lymphocyte # 2.28 X10^3/ul (0.83-4.51); Lymphocyte % 35.3 % (19-41); Mean Corp Hgb Conc 33.3 g/dL (32-36); Mean Corpuscular Hgb 30.8 pg (27.0-32.0); Mean Corpuscular Volume 92.5 fL (81-99); Mean Platelet Vol. 10.8 fl (6.2-12.0); Monocyte# 0.51 X10^3/uL; Monocyte% 7.9 % (0-10); NRBC Flagged by Analyzer 0 % (0-5); Neutrophil # 3.45 X10^3/uL (2.7-7.7); Neutrophil % 53.3 % (47-70); Platelet Count 242 K/mm3 (150-450); RBC Distribution Width CV 14.1 % (11.6-14.6); RBC Distribution Width SD 48.4 fl (35.1-43.9); White Blood Count 6.5 K/mm3 (4.4-11.0)
[2024-08-19 12:41] LABS: Erythrocyte Sedimentation Rate 9 mm/hr (0-30)
[2024-08-19 13:33] LABS: CRP 5.41 mg/L (0.0-3.0)
== END | disposition home or self-care (01) ==
LOC: MTLAB 09:56
PROVIDERS: PCP Nurse Practitioner Family; Referring Provider Specialist; Visit Provider Specialist
DX: T84.84XD Pain due to internal orthopedic prosthetic devices, implants and grafts, subsequent encounter (principal); T84.59XD Infection and inflammatory reaction due to other internal joint prosthesis, subsequent encounter; R53.1 Weakness
CPT/HCPCS: 36415; 85025; 85652; 86140

== ENCOUNTER → 2024-08-24 | Outpatient (CLI) | payer MEDICARE, SELFPAY ==
[2024-08-24 14:10] LABS: Amphetamine Urine NEGATIVE (<1000 ng/mL); Barbiturate Urine NEGATIVE (< 200 ng/mL); Benzodiazepine Urine NEGATIVE (< 200 ng/mL); Buprenorphine Urine NEGATIVE (< 200 ng/mL); Cocaine Urine NEGATIVE (< 300 ng/mL); Fentanyl, Urine NEGATIVE; Methadone Urine NEGATIVE (< 300 ng/mL); Opiates Urine PRESUMPTIVE POSITIVE (< 300 ng/mL); Oxycodone, Urine NEGATIVE (< 100 ng/mL); PCP Urine NEGATIVE (< 25 ng/mL); THC Urine NEGATIVE (< 50 ng/mL)
== END | disposition home or self-care (01) ==
LOC: LAB 12:25
PROVIDERS: PCP Nurse Practitioner Family; Referring Provider Anesthesiology Pain Medicine; Visit Provider Anesthesiology Pain Medicine
DX: F11.20 Opioid dependence, uncomplicated (principal)
CPT/HCPCS: 80307

== ENCOUNTER → 2024-12-16 | Outpatient (CLI) | payer MEDICARE, SELFPAY ==
--- NOTE | 2024-12-16 13:45 | CT_ITS ---
PROCEDURE: SPINE CERVICAL WITHOUT CONTRAS 12/16/2024 REASON FOR EXAM: CERVICAL RADICULOPATHY TECHNIQUE: SPINE CERVICAL WITHOUT CONTRAS Coronal and Sagittal reconstruction series were provided. One or more dose reduction techniques were used (e.g., Automated exposure control, adjustment of the mA and/or kV according to patient size, use of iterative reconstruction technique. COMPARISON: November 18, 2024 FINDINGS: Extensive multilevel posterior cervical fusion/decompression with grossly intact hardware. Anterior fusion with corpectomy changes at C5 through C7. Disc spacers and vertebral body ankylosis from C3 through C5. Vertebral body heights are within normal limits. Negative for fracture or traumatic subluxation. Mild/moderate cervical kyphosis. Degenerative grade 2 anterolisthesis of T2-3 with vertebral body ankylosis. Mild bony spinal stenosis at T2-3. No other significant bony spinal stenosis. Varying degrees of [id number] multilevel bony foraminal narrowing, greatest at T2-3 and T3-4. Moderate biapical emphysema. Bilateral carotid artery calcifications. No paraspinal mass. CT/Spine Cervical without Contras IMPRESSION: 1. No acute osseous abnormality. 2. Degenerative and postoperative changes as above. Reading Location: [facility]
== END | disposition home or self-care (01) ==
LOC: CT 13:40
PROVIDERS: PCP Nurse Practitioner Family; Referring Provider Orthopaedic Surgery Orthopaedic Surgery of the Spine; Visit Provider Orthopaedic Surgery Orthopaedic Surgery of the Spine
DX: M54.12 Radiculopathy, cervical region (principal)
CPT/HCPCS: 72125

== ENCOUNTER → 2024-12-27 | Outpatient (CLI) | payer MEDICARE, SELFPAY ==
--- OUTSIDE RECORDS SUMMARY | 2024-12-27 07:20 | XMS RPT_ITS | CCD ---
Author Organization [facility]iniSy[facility] Care Team Providers Care Manufacturers Service Representative Name Role Phone Vanessa Barrera Unavailable Vanessa Barrera Unavailable Raven Vasquez Unavailable [employer] Unavailable Vanessa Barrera Unavailable Jordan Sidhu MD Unavailable Vanessa Barrera Unavailable Dr. Leia Matute Primary Care Provider [phone] Dr. Leia Matute Referring Provider [phone] Dr. Magdi Zhang Attending Provider [phone] Dr. Stephen Almanzar Attending Provider [phone] Dr. Stephen Almanzar Referring Provider [phone] Dr. Stephen Almanzar Other Provider [phone] Dr. Leia Matute Primary Care Provider [phone] Dr. Leia Matute Referring Provider [phone] BRENDA Vick Attending Provider [phone] Dr. Leia Matute Attending Provider [phone] Dr. Leia Matute Primary Care Provider [phone] Dr. Stephen Almanzar Attending Provider [phone] Dr. Leia Matute Referring Provider [phone] BRENDA Lares Attending Provider Unavailab le Dr. Leia Matute Primary Care Provider [phone] Dr. Stephen Almanzar Attending Provider [phone] Dr. Nilesh Schwartz Attending Provider BRENDA Perez Attending Provider [phone] Care Physician, No Primary Primary Care Provider Unavailable Care Physician, No Primary Referring Provider Un available Dr. Magdi Zhang Attending Provider [phone] Dr. Luis Alberto Moran Primary Care Provider Dr. Leia Matute Primary Care Provider [phone] Dr. Leia Matute Referring Provider [phone] Stephen Almanzar Attending Provider [phone] Dr. Luis Alberto Moran Referring Provider Luis Alberto Ferrari MD Primary Care Provider Dr. Leia Matute Primary Care Provider [phone] Dr. Leia Matute Referring Provider [phone] DO Mike Hopper Primary Care Provider Dr. Claudy Ugalde Attending Provider Dr. Stephen Almanzar Referring Provider [phone] Dr. Stephen Almanzar Admit Provider Dr. Stephen Almanzar Other Provider Dr. Amado Wong Other Provider Luis Alberto Ferrari MD Primary Care Provider Dr. Luis Alberto Moran Primary Care Provider Dr. Luis Alberto Moran Referring Provider Dr. Stephen Almanzar Attending Provider [phone] BRENDA Perez Attending Provider DO Mike Hopper Referring Provider Dr. Nilesh Schwartz Attending Provider DO Mike oHpper Primary Care Provider Dr. Claudy Ugalde Attending Provider [phone] Stephen Almanzar Referring Provider Dr. Stephen Almanzar Admit Provider Dr. Stephen Almanzar Attending Provider Dr. Stephen Almanzar Other Provider Dr. Amado Wong Other Provider Dr. Luis Alberto Moran Referring Provider Reji GUTIERREZ PA Martinez Attending Provider DO Mike Hopper M Referring Provider Dr. Nilesh Schwartz Attending Provider Dr. Claudy Ugalde Attending Provider 1([facility])[phone] MARK Vaughn Referring Provider 1([facility])[phone] Mateo MATA, Luis Alberto Ritter Primary Care Provider 1([facility])[phone] RuchiDO Jm fuentesistin M Primary Care Provider RuchiDO alfredo Mike M Primary Care Provider BRENDA Perez Attending Provider Ruchi, Mike M Primary Care Provider ADRIÁN PULIDO Referring Unavailable LUIS ALBERTO FERRARI Primary Care Unavailable ADRIÁN PULIDO Referring Unavailable LUIS ALBERTO FERRARI Primary Care Unavailable Ruchi DO, Mike M Primary Care Provider [phone] LUIS ALBERTO FERRARI Primary Care Unavailable Stacey MATA, Wisam Unavailable Ruchi DO Mike M Primary Care Provider Ruchi, DO Mike M Primary Care Provider RuchiDO alfredo Mike M Referring Provider MD Gama Stout Attending Provider AUSTIN العراقي Primary Care Provider DO Jm Hopperistin M Primary Care Provider DO Ruchi Mike M Referring Provider MD Gama Stout Attending Provider DALTON العراقي-Hakan Gilbert Primary Care Provider Dr. Nilesh Schwartz Attending Provider MD Gama Stout Referring Provider MD Gama Stout Other Provider Henrry MAID HOUSEKEEPER-C Krystin Referring Provider Ruchi Mike MTZ M Primary Care Provider PROVIDER, UNKNOWN Referring Unavailable RUCHIMIKE M Primary Care Unavailable PROVIDER, UNKNOWN Referring Unavailable RUCHI, MIKE M Primary Care Unavailable SHAISTA MTAA, EDGARDO Primary Care Unavailable SHAISTA MATA~[phone], SHAISTA REYNOSO Attending Unavailable SHAISTA MATA~[phone], SHAISTA REYNOSO Admitting Unavailable Ruchi DO, Mike M Primary Care Provider [phone] Mateo MATA, Luis Alberto Ritter Primary Care Provider Ruchi DO, Mike Sariah Primary Care Provider WISAM MILLS Attending Unavailable WISAM MILLS Referring Unavailable RUCHI, MIKE SARIAH Primary Care Unavailabl e CHRIS BULL Attending Unavailable RUCHI, MIKE SARIAH Primary Care Unavailabl e RUCHI, MIKE SARIAH Primary Care Unavailabl e RUCHI, MIKE SARIAH Primary Care Unavailabl e RUCHI, MIKE SARIAH Primary Care Unavailabl e LESLIE MONET Attending Unavailable RUCHI, MIKE SARIAH Primary Care Unavailabl e RUCHI, MIKE SARIAH Primary Care Unavailabl e Henrry MAID HOUSEKEEPER-C, Krystin Primary Care Provider Henrry MAID HOUSEKEEPER-C, Krystin Referring Provider Gama Stout MD Attending Provider Efren MATA, Dr. Galloway Attending Provider Henrry MAID HOUSEKEEPER-C, Krystin Attending Provider Davi MATA, Dr. Wilson Attending Provider [phone] Dr. Dejan Ferrara MD Referring Provider [phone] Davi MATA, Dr. Wilson Admit Provider Niraj MATA, Dr. Ventura Other Provider Brando MATA, Zak Other Provider Alida MATA, Dr. Jersey Deleon Other Provider Neel MATA, Dr. Velasquez Other Provider Davi MATA, Dr. Wilson Other Provider Carl MTZ, Dr. Dhaliwal Other Provider [phone] Xuan MATA, Dr. Angela Thompson Attending Provider Carl MTZ, Dr. Dhaliwal Attending Provider Alida MATA, Dr. Jersey Deleon Attending Provider Henrry MAID HOUSEKEEPER-C, [facility] Primary Care Provider Henrry MAID HOUSEKEEPER-C, Krystin Referring Provider Gama Stout MD Attending Provider Efren MATA, Dr. Galloway Attending Provider Henrry MAID HOUSEKEEPER-C, Krystin Attending Provider Meghan MATA, Dr. Schultz Attending Provider Meghan MATA, Dr. Schultz Referring Provider HENRRY FURNITURE PAINTER-[facility], [facility] Primary Care Physician [place] PT, Lillian Unavailable Unavailable DAVI MATA, DR DEJAN Rivers Attending Unavailab le HENRRY FURNITURE PAINTER-HEAD STOCK OPERATOR, [facility] Primary Care Unavail able DAVI MATA, DR DEJAN Rivers Attending Unavailab le HENRRY FURNITURE PAINTER-HEAD STOCK OPERATOR, [facility] Primary Care Unavail able DAVI MATA, DR DEJAN Rivers Admitting Unavailab olinda FERRARA MD, DR DEJAN Rivers Attending Unavailab le HENRRY FURNITURE PAINTER-HEAD STOCK OPERATOR, [facility] Unavail able ZAIDA PADILLA-HEAD STOCK OPERATOR, EDGARDO Thompson Consulting Unavai thalia العراقي MAID HOUSEKEEPER-C, [facility] Primary Care Provider Davi MATA, Dr. Wilson Attending Provider [phone] Davi MATA, Dr. Wilson Referring Provider [phone] Henrry MAID HOUSEKEEPER-C, Krystin Referring Provider Freedom MATA, Dr. Barrios Attending Provider Efren MATA, Dr. Galloway Attending Provider Henrry MAID HOUSEKEEPER-C, Krystin Primary Care Provider Freedom MATA, Dr. Barrios Referring Provider Nilesh Schwartz Attending Unavailable Henrry, Krystin Primary Care Unavailable Shraad Chinchilla Attending Unavailable Henrry, Krystin Referring Unavailable Henrry, Krystin Primary Care Unavailable Davi, Dejan Admitting Unavailable Isra Henry Attending Unavailable Dejan Ferrara Referring Unavailable Henrry, Krystin Primary Care Unavailable Isra Henry Consulting Unavailable [employer], [place] Consulting Unavailable Zak Michaels Consulting Unavailable Jersey Irwin Consulting Unavailable Ron Shaikh Consulting Unavailable Dejan Ferrara Consulting Unavailable Jersey Irwin Attending Unavailable Henrry, Krystin Attending Unavailable Henrry, Krystin Referring Unavailable Henrry, Krystin Primary Care Unavailable Dejan Ferrara Attending Unavailable Davi, Dejan Referring Unavailable Henrry, Krystin Primary Care Unavailable Dejan Ferrara Attending Unavailable Davi, Dejan Referring Unavailable Henrry, Krystin Primary Care Unavailable Henrry, Krystin Attending Unavailable Henrry, Krystin Referring Unavailable Henrry, Krystin Primary Care Unavailable Angela Govea Attending Unavailable Gama Stout Attending Unavailable Henrry, Krystin Referring Unavailable Henrry, Krystin Primary Care Unavailable BasaliMarion Attending Unavailable Basali, Beatriceman Referring Unavailable Henrry, Krystin Primary Care Unavailable Henrry, Krystin Attending Unavailable Henrry, Krystin Primary Care Unavailable Henrry, Krystin Referring Unavailable Davi, Dejan Attending Unavailable Davi, Dejan Referring Unavailable Henrry, Krystin Primary Care Unavailable Basali, Marion Attending Unavailable Basali, Beatriceman Referring Unavailable Henrry, Krystin Primary Care Unavailable Henrry, Krystin Attending Unavailable Henrry, Krystin Referring Unavailable Henrry, Krystin Primary Care Unavailable Davi, Dejan Admitting Unavailable DaviJermanen Attending Unavailable Henrry, Krystin Primary Care Unavailable Davi, Dejan Referring Unavailable [employer], [place] Consulting Unavailable Zak Michaels Consulting Unavailable Jersey Irwin Consulting Unavailable Ron Shaikh Consulting Unavailable Tj Vaughn Attending Unavailable Tj Vaughn Referring Unavailable Henrry, Krystin Primary Care Unavailable HenrryKrystin Attending Unavailable Nilesh Schwartz Attending Unavailable Henrry, Krystin Primary Care Unavailable Denis Loja Attending Unavailable Denis Loja Referring Unavailable Henrry, Krystin Primary Care Unavailable Denis Loja Attending Unavailable Henrry Krystin Referring Unavailable Henrry, Krystin Primary Care Unavailable EfrenSourav camposril Attending Unavailable Henrry, Krystin Primary Care Unavailable EfrenNilesh campos Attending Unavailable Henrry, Krystin Primary Care Unavailable Gama Stout Attending Unavailable Henrry, Krystin Referring Unavailable Henrry, Krystin Primary Care Unavailable Allergies Allergy Classification Reported Allergen(s) Allergy Type Date of Onset Reaction(s) Facility (20 sources) Grass pollen; Translations: [grass pollen] Allergy to substance 2 sinus issues [facility] (20 sources) Seasonal allergy; Translations: [SEASONAL ALLERGIES] Allergy to substance 4 Other: See Comments [facility] Work Phone: (3 sources) seasonal enviromental Allergy to substance typical [facility] [place] Medications Current Medications Medication Drug Class(es) Dates Sig (Normalized) Sig (Original) acetaminophen 500 mg oral tablet (20 sources) Start: 06-28-2024 take 2 tablets by mouth three times daily Acetaminophen 500 mg Tablet Active 1000 mg PO THREE TIMES A DAY 0 0 June 28, 2024 1:00am Start: 12-12-2021 End: 11-18-2024 take 2 tablets by mouth every eight hours as needed for pain Acetaminophen 500 mg Tablet Discontinued 1000 mg PO EVERY 8 HOURS as needed for pain July 13, 2023 12:00am November 18, 2024 11:14am Start: 12-12-2021 End: 07-13-2023 take 1000 mg by mouth every eight hours Acetaminophen Active 1000 MG PO EVERY 8 HOURS July 13, 2023 12:00am Start: 07-10-2017 End: 02-15-2021 take 2 tablets by mouth every six hours as needed for pain Acetaminophen 325 MG tablet Discontinued 650 mg PO EVERY 6 HOURS NEEDED as needed for Mild Pain (0-3/10)/Headache 0 July 10, 2017 1:00am February 15, 2021 9:13am Start: 07-10-2017 End: 02-15-2021 take 650 mg by mouth every six hours as needed Acetaminophen Discontinued 650 MG PO EVERY 6 HOURS NEEDED July 10, 2017 1:00am February 15, 2021 9:13am Start: 10-25-2015 End: 04-14-2017 take 2 tablets by mouth every six hours Acetaminophen 325 MG tablet Discontinued 650 mg PO EVERY 6 HOURS 90 0 October 25, 2015 12:00am April 14, 2017 5:02pm Start: 10-25-2015 End: 04-14-2017 take 650 mg by mouth every six hours Acetaminophen Discontinued 650 MG PO EVERY 6 HOURS 90 October 25, 2015 12:00am April 14, 2017 5:02pm cholecalciferol 0.01 mg oral capsule (20 sources) Vitamin D Start: 11-18-2024 take 1 capsule by mouth once daily Cholecalciferol (Vitamin D3) 10 mcg (400 unit) capsule Active 10 ug PO daily November 18, 2024 12:00am Start: 02-15-2021 End: 06-03-2024 take 1 capsule by mouth once daily Cholecalciferol (Vitamin D3) 125 mcg (5,000 unit) capsule Discontinued 125 ug PO DAILY February 15, 2021 12:00am June 03, 2024 3:25pm supplement take 1 tablet by latasha th once daily cholecalciferol (VITAMIN D3) 5,000 unit tab Take 5,000 Units by mouth once daily. Active Comment on above: Take 5,000 Units by mouth once daily. cyclobenzaprine hydrochloride 10 mg oral tablet (1 source) Muscle Relaxant Start: 2021 take 10 mg by mouth three times daily Cyclobenzaprine Active 10 MG PO THREE TIMES A DAY October 04, 2021 12:00am docusate sodium 100 mg oral capsule (4 sources) Start: 2021 Docusate Sodium (Colace) 100 mg Capsule Active 100 MG PO NEEDED June 27, 2021 4:31pm doxycycline monohydrate 100 mg oral capsule (1 source) Tetracycline-class Drug Start: 2024 End: 2024 doxycycline monohydrate 100 mg oral capsule Dose : 100 mg = 1 cap(s), Oral, q12h, Take antibiotic for 2 weeks postoperatively, X 12 day(s), # 24 cap(s), 0 Refill(s), 09/27/24 12:17:00 PM EDT, Pharmacy: [facility], 147.3, cm, 09/13/24 14:47:00 EDT, Height, 43.2, kg, 09/13/24 14:47:00 EDT, Dosing Weight Start Date: 09/15/24 Stop Date: 09/27/24 Status: Ordered Quantity: 24.0 Unit: cap(s) Repeat number: 1 enteric contrast (will be provided with radiology test) (1 source) Start: 2022 End: 2022 enteric contrast (will be provided with radiology [...] Contrast as designated per enteric contrast guidelines ferrous sulfate 325 mg oral tablet (5 sources) Start: 2024 take 1 tablet by mouth once daily Ferrous Sulfate (Ferosul) 325 mg (65 mg iron) Tablet Active 325 mg PO DAILY@1200 14 14 0 June 28, 2024 1:00am fluticasone propionate 0.05 mg/actuat metered dose nasal spray (20 sources) Corticosteroid Start: 2020 Fluticasone Propionate Active 2 SPRAY INTRANASAL NEEDED February 14, 2021 11:00pm folic acid 1 mg oral tablet (20 sources) Start: 2024 take 1 tablet by mouth at breakfast Folic Acid 1 mg Tablet Active 1 mg PO WITH BREAKFAST 14 14 0 June 28, 2024 1:00am Start: 05-19-2023 End: 10-15-2023 take 1 tablet by mouth once daily Folic Acid 1 mg tablet Discontinued 1 mg PO DAILY May 19, 2023 1:00am October 15, 2023 10:00am take 2 capsules by m outh once daily folic acid 0.8 mg cap [...] 180 days. 180 capsule 1 02/07/2022 Active Start: 07-10-2017 End: 11-09-2018 take 2 capsules by mouth twice daily at mealtime Gabapentin 300 MG capsule Discontinued 600 mg PO TWICE DAILY WITH MEALS 60 0 July 10, 2017 1:00am November 09, 2018 9:00am Start: 07-10-2017 End: 11-09-2018 take 600 mg by mouth twice daily at mealtime Gabapentin Discontinued 600 MG PO TWICE DAILY WITH MEALS 60 July 10, 2017 1:00am November 09, 2018 9:00am End: 02-07-2022 take 1 capsule by mouth three times daily gabapentin (NEURONTIN) 100 mg capsule Take 100 mg by mouth three times daily. 0 02/07/2022 Discontinued Comment on above: Take 1 capsule by mo uth twice daily for 180 days. Take 100 mg by mouth three times daily. herbal/nutritional product (3 sources) Start: 08-26-2024 herbal/nutritional product COLLAGEN 1 SCOOP DAILY, 0 Refill(s) Start Date: 08/26/24 Status: Ordered Repeat number: 1 ibuprofen 200 mg oral capsule (5 sources) Nonsteroidal Anti-inflammatory Drug Start: 02-15-2021 take 200 mg by mouth every six hours Ibuprofen Active 200 MG PO EVERY 6 HOURS February 15, 2021 9:30am Start: 2017 ADVIL 200 MG C APS 4 tablets every 4 hours as needed for pain per patient IBUPROFEN [id number] Jordan Sidhu MD iv contrast (will be provide d with radiology test) (20 sources) Start: 02-25-2023 End: 02-26-2023 iv contrast (will be provide d with radiology test) Indications: Monoclonal gammopathy present [...] link. 1 Each 04/17/2022 Active Start: 04-17-2022 inject 1 dose [...] in the CT contrast administration guidelines link. levothyroxine sodium 0.025 mg oral capsule (11 sources) l-Thyroxine Start: 11-19-19 take 1 capsule by mouth once daily Levothyroxine 25 mcg capsule Active 25 ug PO daily November 18, 2024 12:00am Start: 08-26-2024 levothyroxine 25 mcg (0.025 mg) oral tablet TAKE 1 (one) tablet daily except 2 tabs on Sundays Start Date: 08/26/24 Status: Ordered Repeat number: 1 Start: 04-12-2024 take 1 tablet by latasha th once daily Levothyroxine 25 mcg tablet Active 25 ug PO DAILY April 12, 2024 1:00am THYROID mecobalamin 1 mg chewable tablet (3 sources) Start: 11-18-2024 take 1 tablet by mouth once daily Mecobalamin (Vitamin B12) 1,000 mcg tablet,chewable Active 1000 ug PO daily November 18, 2024 12:00am meloxicam 7.5 mg oral tablet (20 sources) Nonsteroidal Anti-inflammatory Drug Start: 09-15-2024 End: 10-15-2024 Mobic 7.5 mg oral tablet Dose : 7.5 mg = 1 tab(s), Oral, BIDM, Do not take any other nonsteroidal anti-inflammatories while on meloxicam/Mobic., # 60 tab(s), 0 Refill(s), Pharmacy: [facility], 147.3, cm, 09/13/24 14:47:00 EDT, Height, kg, 09/13/24 14:47:00 EDT, Dosing Weight Start Date: 09/15/24 Stop Date: 10/15/24 Status: Ordered Quantity: 60.0 Unit: tab(s) Repeat number: 1 Start: 07-05-2015 take 1 tablet by latasha th once daily at mealtime meloxicam (MOBIC) 15 mg tablet Indications: Arthritis Take 1 tablet by mouth once daily. Take with food. 30 tablet 2 07/05/2015 Active Comment on above: Take 1 tablet by latasha th once daily. Take with food. methocarbamol 750 mg oral tablet (20 sources) Muscle Relaxant Start: 2022 take 1 tablet by mouth three times daily as needed methocarbamol (ROBAXIN-750) 750 mg tablet Take 1 tablet by mouth three times daily as needed. 60 tablet 10/20/2022 Active Comment on above: Take 1 tablet by latasha th three times daily as needed. methylPREDNISolone 4 mg oral tablet (20 sources) Corticosteroid Start: 2021 take 1 tablet by mouth once Methylprednisolone (Medrol (Jaron)) 4 mg tablets,dose pack Active 0 PO per package directions October 04, 2021 12:00am take as directed Start: 08-26-2021 End: 09-09-2021 take 1 tablet by mouth once daily Methylprednisolone (Medrol (Jaron)) 4 mg tablets,dose pack Discontinued 4 mg PO DAILY 21 August 26, 2021 12:00am September 09, 2021 8:07am Multivitamin preparation (20 sources) Start: 07-03-2017 Multivitamin A ctive 1 EACH PO DAILY July 03, 2017 5:12pm Start: 07-03-2017 Multivitamin A ctive 1 EACH PO DAILY July 03, 2017 12:00am Start: 07-03-2017 Multivitamin A ctive 1 EACH PO DAILY July 03, 2017 1:00am multivitamin tablet (20 sources) take 1 tablet by latasha th once daily multivitamin tablet Take 1 tablet by mouth once daily. Active take 1 tablet by mouth once gigi y multivitamin tablet Take 1 tablet by mouth once daily. 0 Active Comment on above: Take 1 tablet by latasha th once daily. Multivitamin With Minerals (Hair,Skin And Nails) tablet (3 sources) Start: 11-18-2024 Multivitamin With Minerals (Hair,Skin And Nails) tablet Active 1 {tbl} PO ONCE November 18, 2024 12:00am OMEGA-3 FATTY ACIDS/FISH OIL (OMEGA 3 FISH OIL ORAL) (20 sources) OMEGA-3 FATTY AC IDS/FISH OIL (OMEGA 3 FISH OIL ORAL) Take by mouth once daily. Active OMEGA-3 FATTY AC IDS/FISH OIL (OMEGA 3 FISH OIL ORAL) Take by mouth once daily. 0 Active Comment on above: Take by mouth once d aily. ondansetron 4 mg oral tablet (1 source) Serotonin-3 Receptor Antagonist Start: ondansetron 4 mg oral tablet Dose : 4 mg = 1 tab(s), Oral, q8h, PRN Nausea/Vomiting, # 10 tab(s), 0 Refill(s), Pharmacy: [facility], 147.3, cm, 09/13/24 14:47:00 EDT, Height, kg, 09/13/24 14:47:00 EDT, Dosing Weight Start Date: 09/15/24 Status: Ordered Quantity: 10.0 Unit: tab(s) Repeat number: 1 tiZANidine 2 mg oral tablet (10 sources) Central alpha-2 Adrenergic Agonist Start: 4 End: 4 take 1 tablet by mouth every eight hours as needed tiZANidine (ZANAFLEX) 2 mg tablet Take 1 tablet by mouth every 8 hours as needed. 30 tablet 0 09/21/2023 12/20/2023 Active Turmeric extract (20 sources) Start: Turmeric 400 mg capsule Active mg PO November 18, 2024 12:00am Start: 07-13-2023 End: 06-03-2024 Turmeric (Bulk) (Curcumin) 9 5 % powder Discontinued 1 NMA MC DAILY July 13, 2023 12:00am June 03, 2024 3:26pm Start: 07-13-2023 Turmeric (Bulk ) (Curcumin) 95 % powder Active 1 EACH MC DAILY July 13, 2023 12:00am take 1 tablet by latasha th once daily TURMERIC ORAL Take 1 tablet by mouth once daily. Active take 1 tablet by latasha th once daily TURMERIC ORAL Take 1 tablet by mouth once daily. 0 Active Comment on above: Take 1 tablet by latasha th once daily. Vit [id number] per (2 sources) Start: 05-19-2023 Vit [id number]-[id number]-Pe pper Active TABLET PO May 19, 2023 12:00am Vitamin B12 500 mcg oral tablet (3 sources) Start: 08-26-2024 Vitamin B12 500 mcg oral tablet Dose : 500 mcg = 1 tab(s), Oral, qDay, # 30 tab(s), 0 Refill(s) Start Date: 08/26/24 Status: Ordered Quantity: 30.0 Unit: tab(s) Repeat number: 1 Completed/Discontinued Medications Medication Drug Class(es) Dates Sig (Normalized) Sig (Original) acetaminophen 325 mg / oxyCODONE hydrochloride 5 mg oral tablet (20 sources) Opioid Agonist Start: 07-22-2023 End: 08-04-2023 Oxycodone-Acetaminoph en (Endocet) 5-325 mg tablet Discontinued 1 {tbl} PO Q4H as needed for pain 20 5 0 July 27, 2023 August 04, 2023 10:17am Primary osteoarthritis of left shoulder Primary osteoarthritis, left shoulder Start: 01-03-2022 acetaminophen- oxycodone 325 mg-7.5 mg oral tablet Dose = 1 tab(s), Oral, q6hr, Dr. Christianson, 0 Refill(s), 47 Start Date: 01/03/22 Status: Ordered Repeat number: 1 Start: 12-10-2021 End: 12-12-2021 Oxycodone-Acetaminophen 7.5- 325 mg tablet Discontinued 1 {tbl} PO 4 TIMES DAILY NEEDED as needed for Pain December 10, 2021 12:00am December 12, 2021 7:32am Start: 12-10-2021 End: 12-12-2021 take 1 tablet by mouth four times daily as needed Oxycodone-Acetaminophen Discontinued 1 TABLET PO 4 TIMES DAILY NEEDED December 10, 2021 12:00am December 12, 2021 7:32am Start: 11-09-2018 take 1 tablet by latasha th every six hours as needed Oxycodone-Acetaminophen Active 1 TABLET PO EVERY 6 HOURS NEEDED 84 November 09, 2018 9:00am Start: 07-17-2017 take 1-2 tablets by mouth every six hours PERCOCET 5-325 MG TABS Take 1-2 tablets by mouth every 6 hours OXYCODONE-ACETAMINOPHEN [id number] Patty Ambriz PA-C Start: 07-07-2016 OXYCODONE-ACET AMINOPHEN 5-325 MG TABS OXYCODONE-ACETAMINOPHEN [id number] Thom Iverson Start: 10-12-2015 End: 10-25-2015 Oxycodone-Acetaminophen 1 TA BLET tablet Discontinued 1 {tbl} PO 3 TIMES DAILY NEEDED as needed for Pain October 12, 2015 12:00am October 25, 2015 9:39am Start: 10-12-2015 End: 10-25-2015 take 1 tablet by mouth three times daily as needed Oxycodone-Acetaminophen Discontinued 1 TABLET PO 3 TIMES DAILY NEEDED October 12, 2015 12:00am October 25, 2015 9:39am alendronic acid 70 mg oral tablet (20 sources) Bisphosphonate Start: 06-27-2021 End: 05-19-2023 Alendronate (Fosamax) 70 mg tablet Discontinued 1 {tbl} PO EVERY WEEK June 27, 2021 4:35pm May 19, 2023 11:30am Check with primary doctor Start: 12-14-2018 End: 05-08-2021 Alendronate 70 mg tablet Discontinued 1 {tbl} PO EVERY WEEK 12 0 December 14, 2018 12:00am May 08, 2021 4:04pm Start: 07-05-2015 End: 05-19-2023 take 1 tablet by mouth every week Alendronate 70 mg tablet Discontinued 70 mg PO EVERY WEEK 13 May 08, 2021 4:03pm June 27, 2021 4:35pm End: 06-23-2022 take 70 mg by mouth every week Alendronate Sodium (FOS AMAX) 70 mg/75 mL solution Take 70 mg by mouth one time a week. 06/23/2022 Discontinued Comment on above: Take 1 tablet by latasha th once each week. Take 70 mg by mouth one time a week. apixaban 2.5 mg oral tablet (20 sources) Factor Xa Inhibitor Start: 2 End: 2 take 1 tablet by mouth twice daily Apixaban (Eliquis) 2.5 mg Tablet Discontinued 2.5 mg PO TWICE A DAY 42 0 December 12, 2021 12:00am December 25, 2021 10:00am aspirin 81 mg oral tablet (20 sources) Platelet Aggregation Inhibitor, Nonsteroidal Anti-inflammatory Drug Start: 5 End: 5 take 1 capsule by mouth twice daily Aspirin 81 mg capsule Discontinued 81 mg PO TWICE A DAY 0 30 0 June 28, 2024 1:00am November 18, 2024 11:14am DVT prophylaxis. Start: 10-25-2015 End: 04-14-2017 take 1 tablet by mouth once daily at mealtime Aspirin 325 MG tablet Discontinued 325 mg PO DAILY WITH MEALS 12 October 25, 2015 12:00am April 14, 2017 5:02pm baclofen 10 mg oral tablet (20 sources) gamma-Aminobutyric Acid-ergic Agonist Start: 08-23-2021 End: 09-09-2021 take 5 mg by mouth at bedtime as needed for muscle spasms Baclofen 10 mg tablet Discontinued 5 mg PO AT BEDTIME as needed for muscle spasm 30 August 23, 2021 12:00am September 09, 2021 8:07am Start: 08-23-2021 End: 09-09-2021 take 5 mg by mouth at bedtime Baclofen Discontinued 5 MG PO AT BEDTIME August 23, 2021 12:00am September 09, 2021 8:07am biotin 10 mg oral capsule (20 sources) Start: 05-19-2023 End: 06-03-2024 take 1 capsule by mouth once daily Biotin 10,000 mcg capsule Discontinued 13667 ug PO DAILY May 19, 2023 1:00am June 03, 2024 3:25pm Start: 05-19-2023 Biotin Active MCG PO May 19, 2023 12:00am take 2 tablets by mouth once carmine ly BIOTIN ORAL Take 2 tablets by mouth once daily. 6000 MCG Biotin, with Keratin 50 mg Active take 2 tablets by mouth once carmine ly BIOTIN ORAL Take 2 tablets by mouth once daily. 6000 MCG Biotin, with Keratin 50 mg 0 Active Comment on above: Take 2 tablets by mo [facility] once daily. 6000 MCG Biotin, with Keratin 50 mg calcium (20 sources) Phosphate Binder, Calcium Start: 02-07-2016 CALCIUM 600 + D TABS takes 1 tablet daily CALCIUM CARB-CHOLECALCIFEROL TABS [id number] Lilia Rose PLUMBER GASFITTER take 600 mg by mouth once daily CALCIUM ORAL Take 600 mg by mouth once daily. Active take 600 mg by mouth once daily CALCIUM ORAL Take 600 mg by mouth once daily. 0 Active Comment on above: Take 600 mg by mouth once daily. calcium carbonate 1500 mg oral tablet (20 sources) Start: 07-03-2017 End: 11-09-2018 take 1 tablet by mouth once daily Calcium Carbonate 600 MG tablet Discontinued 600 mg PO DAILY July 03, 2017 1:00am November 09, 2018 9:00am supplement take 1 tablet by mouth once gigi y CALCIUM CARBONATE (CALCIUM 300 ORAL) Take 1 tablet by mouth once daily. Active take 1 tablet by mouth once gigi y CALCIUM CARBONATE (CALCIUM 300 ORAL) Take 1 tablet by mouth once daily. 0 Active Comment on above: [facility]. cefTRIAXone 2000 mg injection (5 sources) Cephalosporin Antibacterial Start: 2024 End: 2024 Ceftriaxone 2 gram recon soln Discontinued 2 g IV DAILY 39 0 June 27, 2024 1:00am November 18, 2024 11:15am stop date 08/05/24. Dx: shoulder PJI. Weekly bmp, cbc, LFT, and esr. Fax to [phone]. Routine picc care per protocol. cetirizine hydrochloride 10 mg oral tablet (20 sources) Histamine-1 Receptor Antagonist Start: 2018 End: 2023 take 1 tablet by mouth once daily as needed Cetirizine 10 mg tablet Discontinued 10 mg PO DAILY NEEDED as needed for Allergic Reaction 90 2 May 20, 2021 12:51pm May 19, 2023 11:30am Comment on above: Take 10 mg by mouth once daily. 1 ml denosumab 60 mg/ml prefilled syringe (2 sources) RANK Ligand Inhibitor Start: 2023 End: 2023 denosumab 60 mg injection (PROLIA) docusate sodium 50 mg / sennosides, chcf 8.6 mg oral tablet (5 sources) Start: 2024 End: 2024 Sennosides-Docusate Sodium (Stimulant Laxative Plus) 8.6-50 mg Tablet Discontinued 2 {tbl} PO TWICE A DAY 0 0 June 28, 2024 1:00am November 18, 2024 11:15am Take until first bowel movement and then as needed. DULoxetine 30 mg delayed release oral capsule (7 sources) Serotonin and Norepinephrine Reuptake Inhibitor Start: 2016 DULOXETINE HCL 30 MG CPEP DULOXETINE HCL [id number] Thom Iverson famotidine 20 mg oral tablet (6 sources) Histamine-2 Receptor Antagonist Start: 2024 End: 2024 take 1 tablet by mouth once daily Famotidine 20 mg Tablet Discontinued 20 mg PO DAILY 30 30 0 June 28, 2024 1:00am November 18, 2024 11:14am hydroxychloroquine sulfate 200 mg oral tablet (20 sources) Antimalarial, Antirheumatic Agent Start: 2021 End: 2023 take 1 tablet by mouth once daily Hydroxychloroquine 200 mg Tablet Discontinued 200 mg PO DAILY November 26, 2021 12:00am October 15, 2023 9:59am arthritis Comment on above: Take 200 mg by mouth once daily. lidocaine 0.05 mg/mg medicated patch (20 sources) Antiarrhythmic, Amide Local Anesthetic Start: 2019 End: 2020 Lidocaine 1 PATCH patch Discontinued 1 NMA TOPICAL DAILY 10 May 07, 2019 1:00am February 15, 2021 9:13am 12 hours on 12 hours off Start: 05-07-2019 End: 02-15-2021 apply 1 dose topically once daily Lidocaine Discontinued 1 PATCH TOPICAL DAILY May 07, 2019 1:00am February 15, 2021 9:13am 12 hours on 12 hours off linaclotide 0.145 mg oral capsule (20 sources) Guanylate Cyclase-C Agonist Start: 02-15-2021 End: 05-19-2023 take 1 capsule by mouth once daily Linaclotide 145 mcg capsule Discontinued 145 ug PO DAILY 90 2 May 20, 2021 12:51pm June 27, 2021 4:35pm Start: 07-03-2017 End: 02-15-2021 take 1 capsule by mouth once daily as needed for pain Linaclotide (Linzess) 72 MCG capsule Discontinued 72 ug PO DAILY as needed for Pain July 03, 2017 1:00am February 15, 2021 9:12am Comment on above: Take by mouth as nee ded. menthol 0.025 mg/mg topical gel (20 sources) Start: 07-10-2017 End: 11-09-2018 Menthol 1 APPLIC gel Discontinued 1 NMA TOPICAL 4 TIMES DAILY NEEDED as needed for Pain 0 July 10, 2017 1:00am November 09, 2018 9:00am Start: 07-10-2017 End: 11-09-2018 Menthol Discontinued 1 APPLI C TOPICAL 4 TIMES DAILY NEEDED July 10, 2017 1:00am November 09, 2018 9:00am methotrexate 2.5 mg oral tablet (20 sources) Folate Analog Metabolic Inhibitor Start: 05-19-2023 End: 10-15-2023 Methotrexate Sodium 2.5 mg tablet Discontinued 20 mg PO EVERY WEEK May 19, 2023 1:00am October 15, 2023 9:59am Start: 05-19-2023 take 20 mg by mouth every week Methotrexate Sodium Active 20 MG PO EVERY WEEK May 19, 2023 1:00am Start: 05-19-2023 take 2.5 mg by mouth every wee k Methotrexate Sodium Active 2.5 MG PO EVERY WEEK May 19, 2023 12:00am Start: 07-07-2016 METHOTREXATE 2 .5 MG TABS METHOTREXATE SODIUM [id number] Thom Iverson take 8 tablets by [facility] every week methotrexate 2.5 mg tablet Take 8 tablets by mouth once weekly. Active Comment on above: Take 2.5 mg by mouth one time only. Take 2.5 mg by mouth one time only. Taking 6 tablets one day a week on Take 8 tablets by [facility] once weekly. morphine sulfate 15 mg extended release oral tablet (5 sources) Opioid Agonist Start: 05-26-2024 End: 11-18-2024 take 1 tablet by mouth twice daily Morphine 15 mg tablet extended release Discontinued 15 mg PO TWICE A DAY 0 May 26, 2024 1:00am November 18, 2024 11:14am PAIN MULTIPLE VITAMINS-MINERALS (1 source) Start: 02-07-2016 QC WOMENS DAILY MULTIVITAMIN TABS takes 1 tablet daily MULTIPLE VITAMINS-MINERALS [id number] Lilia Rose LPN [place]-3 Fatty Acids-Fish Oil (20 sources) Start: 07-03-2017 End: 02-15-2021 [place]-3 Fatty Acids-Fish Oil Discontinued 1 EACH PO DAILY July 03, 2017 5:12pm February 15, 2021 9:21am Start: 07-03-2017 End: 02-15-2021 [place]-3 Fatty Acids-Fish Oil Discontinued 1 EACH PO DAILY July 03, 2017 12:00am February 15, 2021 8:21am Start: 07-03-2017 End: 02-15-2021 [place]-3 Fatty Acids-Fish Oil Discontinued 1 EACH PO DAILY July 03, 2017 1:00am February 15, 2021 9:21am [place]-3 Fatty Acids-Fish Oil 1 EACH capsule (5 sources) Start: 07-03-2017 End: 02-15-2021 [place]-3 Fatty Acids-Fish Oil 1 EACH capsule Discontinued 1 NMA PO DAILY July 03, 2017 1:00am February 15, 2021 9:21am supplement Start: 07-03-2017 End: 02-15-2021 [place]-3 Fatty Acids-Fish Oil 1 EACH capsule Discontinued 1 NMA PO DAILY July 03, 2017 1:00am February 15, 2021 9:21am oxyCODONE hydrochloride 5 mg oral tablet (20 sources) Opioid Agonist Start: 06-28-2024 End: 11-18-2024 take 5-10 mg by mouth every four hours as needed for pain Oxycodone 5 mg Tablet Discontinued 5 - 10 mg PO EVERY 4 HOURS NEEDED as needed for as needed for pain. 30 7 0 June 28, 2024 November 18, 2024 11:14am Presence of right artificial shoulder joint Infection associated with prosthesis of right shoulder joint Presence of right artificial shoulder joint Start: 05-19-2023 End: 05-26-2024 take 1 capsule by mouth twice daily at mealtime Oxycodone Myristate (Xtampza Er) 13.5 mg cap,sprinkl,ER12hr(DONT CRUSH) Discontinued 13.5 mg PO TWICE A DAY 0 May 19, 2023 1:00am May 26, 2024 10:48am must administer with a meal/food Start: 12-12-2021 End: 05-19-2023 take 10-15 mg by mouth every four hours as needed for pain Oxycodone 5 mg tablet Discontinued 10 - 15 mg PO Q4H as needed for pain 60 4 0 December 12, 2021 May 19, 2023 11:27am Other acute postprocedural pain Other acute postprocedural pain Start: 07-10-2017 End: 11-09-2018 take 5-10 mg by mouth every six hours as needed for pain Oxycodone 5 MG tablet Discontinued 5 - 1 0 mg PO EVERY 6 HOURS NEEDED as needed for Pain 36 7 0 July 10, 2017 1:00am November 09, 2018 9:02am Status post cervical spinal arthrodesis Arthrodesis status Start: 10-25-2015 End: 04-14-2017 take 5-10 mg by mouth every four hours as needed for pain Oxycodone 5 MG tablet Discontinued 5 - 1 0 mg PO EVERY 4 HOURS NEEDED as needed for Pain 90 0 October 25, 2015 12:00am April 14, 2017 5:02pm Start: 10-25-2015 End: 04-14-2017 take 1 tablet by mouth twice daily Oxycodone 10 MG tablet Discontinued 10 m g PO TWICE A DAY 8 0 October 25, 2015 12:00am April 14, 2017 5:02pm Comment on above: Take by mouth. Take 1 capsule by [facility] two times a day. predniSONE 10 mg oral tablet (20 sources) Start: 05-19-2023 Prednisone Active MG PO May 19, 2023 12:00am Start: 05-19-2023 End: 06-03-2024 Prednisone 10 mg tablet Disc ontinued 10 mg PO NEEDED May 19, 2023 1:00am June 03, 2024 3:26pm Comment on above: Take 10 mg by mouth once daily. raloxifene hydrochloride 60 mg oral tablet (20 sources) Estrogen Agonist/Antagonist Start: 07-07-2016 End: 09-10-2022 RALOXIFENE HCL 60 MG TABS RALOXIFENE HCL [id number] Thom Iverson Comment on above: Take 60 mg by mouth once daily. romosozumab (20 sources) Start: 11-02-2023 End: 11-02-2023 romosozumab-aqqg 210 mg injection (EVENITY) Start: 05-19-2023 End: 12-03-2023 Romosozumab-Aqqg (Evenity) 1 05 mg/1.17 mL syringe Discontinued 210 mg SC EVERY MONTH May 19, 2023 1:00am December 03, 2023 10:30am Start: 09-10-2022 End: 10-05-2023 romosozumab-aqqg 210 mg inje ction (EVENITY) tumeric (20 sources) Start: 02-15-2021 End: 03-25-2021 tumeric Discontinued PO Octo rosa 2020 9:22am March 25, 2021 2:35pm Start: 02-15-2021 End: 03-25-2021 tumeric Discontinued PO 0 Oc tober 2020 12:00am March 25, 2021 2:35pm Start: 02-15-2021 End: 03-25-2021 tumeric Discontinued PO Octo rosa 2020 11:00pm March 25, 2021 1:35pm Start: 02-15-2021 End: 03-25-2021 tumeric Discontinued PO Octo rosa 2020 12:00am March 25, 2021 2:35pm Problems Active Problems Problem Classification Problem Date Documented Da te Episodic/Chronic Complications of surgical procedures or medical care (7 sources) Complication of procedure; Translations: [Complication of surgical and medical care, unspecified, initial encounter] Onset: 05-31-2022 Episodic Deficiency and other anemia (20 sources) Anemia; Translations: [Anemia, unspecified] 06-27-2021 Episodic Comment on above: HX OF Deficiency and other anemia (1 source) Anemia, unspecified; Translations: [Anemia, unspecified] Onset: 09-13-2024 Episodic Disorders of lipid metabolism (20 sources) Hyperlipidemia; Translations: [Hyperlipidemia, unspecified] Onset: 09-20-2014 09-20-2014 Chronic Fracture of lower limb (20 sources) Fracture of patella; Translations: [Unspecified fracture of unspecified patella, initial encounter for closed fracture] 02-27-2021 Episodic Nausea and vomiting (1 source) Nausea; Translations: [Nausea] Onset: 09-13-2024 Episodic Neoplasms of unspecified nature or uncertain behavior (5 sources) Monoclonal gammopathy (clinical); Translations: [Monoclonal gammopathy] Onset: 09-21-2023 Chronic Nonspecific chest pain (20 sources) Atypical chest pain; Translations: [Other chest pain] Episodic Comment on above: pt denies Nutritional deficiencies (1 source) Vitamin D deficiency; Translations: [Vitamin D deficiency, unspecified] Chronic Osteoarthritis (20 sources) Osteoarthritis of right hip joint; Translations: [Unilateral primary osteoarthritis, right hip] Onset: 12-30-2012 Chronic Osteoporosis (20 sources) Osteoporosis; Translations: [Age-related osteoporosis without current pathological fracture] Onset: 12-30-2012 04-29-2021 Chronic Other acquired deformities (1 source) Spondylolisthesis; Translations: [Spondylolisthesis, lumbar region] Onset: 05-29-2017 05-29-2017 Chronic Other acquired deformities (20 sources) Degenerative disorder of musculoskeletal system; Translations: [Other forms of scoliosis, site unspecified] 10-04-2021 Chronic Other acquired deformities (6 sources) Other forms of scoliosis, site unspecified; Translations: [Scoliosis [and kyphoscoliosis], idiopathic] Chronic Other aftercare (20 sources) Follow-up status; Translations: [Encounter for other orthopedic aftercare] 12-20-2021 Episodic Other aftercare (13 sources) Encounter for other orthopedic aftercare; Translations: [Unspecified orthopedic aftercare] Episodic Other aftercare (3 sources) Aftercare following explantation of shoulder joint prosthesis; Translations: [Aftercare following explantation of shoulder joint prosthesis] Onset: 09-13-2024 Episodic Other bone disease and musculoskeletal deformities (2 sources) Disorder of bone; Translations: [Disorder of bone density and structure, unspecified] Episodic Other circulatory disease (1 source) Low blood pressure; Translations: [Hypotension, unspecified] Onset: 09-14-2024 Episodic Other circulatory disease (2 sources) Hypotension, unspecified; Translations: [Hypotension, unspecified] Onset: 09-13-2024 Episodic Other connective tissue disease (20 sources) History of total hip arthroplasty; Translations: [Presence of right artificial hip joint] 12-12-2021 Chronic Other connective tissue disease (17 sources) Presence of right artificial hip joint; Translations: [Hip joint replacement] Chronic Other connective tissue disease (1 source) Shoulder joint prosthesis present; Translations: [Presence of right artificial shoulder joint] Onset: 09-15-2024 Chronic Other connective tissue disease (2 sources) Presence of right artificial shoulder joint; Translations: [Presence of right artificial shoulder joint] Onset: 06-27-2024 Chronic Other connective tissue disease (2 sources) Arthrodesis status; Translations: [Arthrodesis status] Onset: 07-10-2017 07-10-2017 Episodic Other connective tissue disease (20 sources) Muscle pain; Translations: [Myalgia, unspecified site] 08-23-2021 Episodic Other connective tissue disease (7 sources) Myalgia, unspecified site; Translations: [Myalgia and myositis, unspecified] Episodic Other connective tissue disease (7 sources) H/O: arthrodesis; Translations: [Arthrodesis status] Episodic Other connective tissue disease (1 source) Fibromyalgia; Translations: [Fibromyalgia] Onset: 09-13-2024 Episodic Other endocrine disorders (2 sources) Hyperparathyroidism; Translations: [Hyperparathyroidism, unspecified] Chronic Other fractures (6 sources) Closed fracture of third thoracic vertebra; Translations: [Stable burst fracture of third thoracic vertebra, subsequent encounter for fracture with routine healing] Episodic Other gastrointestinal disorders (3 sources) Irritable bowel syndrome characterized by constipation 01-07-2022 Chronic Other gastrointestinal disorders (1 source) Irritable bowel syndrome with constipation; Translations: [Irritable bowel syndrome with constipation] Onset: 09-13-2024 Chronic Other hematologic conditions (2 sources) Protein electrophoresis abnormal; Translations: [Other specified abnormalities of plasma proteins] Episodic Other injuries and conditions due to external causes (3 sources) Other specified injuries of thorax, initial encounter; Translations: [Contusion of rib on left side] 10-02-2020 Episodic Other lower respiratory disease (20 sources) Dyspnea; Translations: [Shortness of breath] 11-26-2021 Episodic Comment on above: pt denies Other nervous system disorders (20 sources) Carpal tunnel syndrome; Translations: [Carpal tunnel syndrome, unspecified upper limb] 03-25-2021 Chronic Other nervous system disorders (3 sources) Carpal tunnel syndrome, unspecified upper limb; Translations: [Carpal tunnel syndrome] Chronic Other nervous system disorders (1 source) Carpal tunnel syndrome of right wrist; Translations: [Carpal tunnel syndrome, right upper limb] Chronic Other nervous system disorders (3 sources) Neuropathy 01-07-2022 Chronic Other nervous system disorders (20 sources) Acute postoperative pain; Translations: [Other acute postprocedural pain] 12-12-2021 Episodic Other nervous system disorders (6 sources) Other acute postprocedural pain; Translations: [Other acute postoperative pain] Episodic Other non-traumatic joint disorders (20 sources) Pain in right knee; Translations: [Pain in both knees] 02-15-2021 Episodic Other non-traumatic joint disorders (5 sources) Pain in left shoulder; Translations: [Pain in joint, shoulder region] 05-19-2023 Episodic Other screening for suspected conditions (not mental disorders or infectious disease) (1 source) Radiology result abnormal; Translations: [Abnormal findings on diagnostic imaging of other specified body structures] Chronic Pathological fracture (17 sources) Primary osteoporosis; Translations: [Age-related osteoporosis with current pathological fracture, unspecified site, subsequent encounter for fracture with routine healing] Episodic Residual codes; unclassified (20 sources) Pain; Translations: [Pain, unspecified] 10-04-2021 Episodic Screening and history of mental health and substance abuse codes (1 source) Personal history of nicotine dependence; Translations: [Personal history of nicotine dependence] Onset: 09-13-2024 Episodic Spondylosis; intervertebral disc disorders; other back problems (20 sources) Cervical spondylosis with myelopathy; Translations: [Intervertebral disc disorders with myelopathy, lumbar region] Onset: 12-30-2012 07-07-2016 Chronic Spondylosis; intervertebral disc disorders; other back problems (20 sources) Cervical spine ankylosis; Translations: [Neck pain] Onset: 12-30-2012 10-26-2016 Episodic Comment on above: HX BACK SURGERY X3 Substance-related disorders (1 source) Opioid dependence, uncomplicated; Translations: [Opioid dependence, uncomplicated] Onset: 08-29-2024 Chronic Superficial injury; contusion (20 sources) Contusion of rib; Translations: [Contusion of left front wall of thorax, initial encounter] 10-02-2020 Episodic Thyroid disorders (4 sources) Hypothyroidism; Translations: [Hypothyroidism, unspecified] Onset: 04-12-2024 Chronic Unclassified (1 source) Other specified postprocedural states; Translations: [Other specified postprocedural states] Onset: 07-10-2017 07-10-2017 Unclassified (20 sources) Contusion of right knee, initial encounter 10-02-2020 Unclassified (1 source) M19.011 - Primary osteoarthritis, right shoulder,M25.511 - Pain in right shoulder Past or Other Problems Problem Classification Problem Date Documented Date Episodic/Chronic Allergic reactions (20 sources) Eczema; Translations: [Dermatitis, unspecified] Onset: 09-20-2013 06-23-2014 Episodic Complication of device; implant or graft (10 sources) Infection associated with prosthesis of right shoulder joint; Translations: [Infection and inflammatory reaction due to other internal joint prosthesis, initial encounter] Onset: 06-27-2024 06-25-2024 Episodic Hemorrhoids (15 sources) Hemorrhoids; Translations: [Unspecified hemorrhoids] Onset: 08-03-2013 Resolved: 09-20-2013 06-23-2014 Episodic Infective arthritis and osteomyelitis (except that caused by tuberculosis or sexually transmitted disease) (8 sources) Infectious disorder of joint; Translations: [Pyogenic arthritis, unspecified] Onset: 06-28-2024 06-25-2024 Episodic Other acquired deformities (1 source) Other biomechanical lesions of lumbar region; Translations: [Other biomechanical lesions of lumbar region] Onset: 05-29-2017 05-29-2017 Episodic Other connective tissue disease (20 sources) Fibromyalgia; Translations: [Fibromyalgia] Onset: 12-30-2012 04-29-2021 Episodic Other fractures (1 source) Stable burst fracture of third thoracic vertebra, subsequent encounter for fracture with routine healing; Translations: [Closed stable burst fracture of third thoracic vertebra with routine healing, subsequent encounter] Onset: 10-20-2022 Episodic Other inflammatory condition of skin (15 sources) Pruritus ani; Translations: [Pruritus ani] Onset: 04-20-2013 Resolved: 09-20-2013 09-20-2013 Episodic Other lower respiratory disease (5 sources) Shortness of breath; Translations: [Shortness of breath] Onset: 06-29-2024 Episodic Other lower respiratory disease (1 source) Pleurodynia; Translations: [Pleurodynia] Onset: 03-22-2024 Episodic Other non-traumatic joint disorders (20 sources) Joint pain; Translations: [Pain in unspecified joint] Onset: 04-11-2014 04-11-2014 Episodic Other non-traumatic joint disorders (7 sources) Pain in right shoulder; Translations: [Right shoulder pain] Onset: 06-27-2024 04-12-2024 Episodic Other screening for suspected conditions (not mental disorders or infectious disease) (1 source) Encounter for screening mammogram for malignant neoplasm of breast; Translations: [Encounter for screening mammogram for malignant neoplasm of breast] Onset: 05-25-2024 Episodic Residual codes; unclassified (20 sources) Tobacco user; Translations: [Tobacco use] Onset: 09-20-2014 04-29-2021 Episodic Unclassified (1 source) Problem Results Test Name Value Interpretation Reference Range Facility Spine Cervical without Contr ason 12-16-2024 Spine Cervical without Contras [facility] [address], [place] [id number] Spine Cervical without Contras MR#: [id number] Acct: [id number] Name: YARA LOYA Silvestre Rep #: [id number] : 1950 F [id number] From: Ron Perez PCP: Krystin العرقاي NP-C Status: REG CLI Study: Spine Cervical without Contras Date of Exam: 0 12/16/24 Exam# [id number] Ordering Dr: Denis Loja MD PROCEDURE: SPINE CERVICAL WITHOUT CONTRAS 12/16/2024 REASON FOR EXAM: CERVICAL RADICULOPATHY TECHNIQUE: SPINE CERVICAL WITHOUT CONTRAS Coronal and Sagittal reconstruction series were provided. One or more dose reduction techniques were used (e.g., Automated exposure control, adjustment of the mA and/or kV according to patient size, use of iterative reconstruction technique. COMPARISON: November 18, 2024 FINDINGS: Extensive multilevel posterior cervical fusion/decompression with grossly intact hardware. Anterior fusion with corpectomy changes at C5 through C7. Disc spacers and vertebral body ankylosis from C3 through C5. Vertebral body heights are within normal limits. Negative for fracture or traumatic subluxation. Mild/moderate cervical kyphosis. Degenerative grade 2 anterolisthesis of T2-3 with vertebral body ankylosis. Mild bony spinal stenosis at T2-3. No other significant bony spinal stenosis. Varying degrees of [id number] multilevel bony foraminal narrowing, greatest at T2-3 and T3-4. Moderate biapical emphysema. Bilateral carotid artery calcifications. No paraspinal mass. CT/Spine Cervical without Contras IMPRESSION: 1. No acute osseous abnormality. 2. Degenerative and postoperative changes as above. Reading Location: [facility] CC: CARMENC Krystin العراقي; Dr. Denis Loja MD Visual C Developer: Signed Normal [facility] Cerv Spine 4 or 5 Viewson Cerv Spine 4 or 5 Views [facility] [address] [place] [id number] Cerv Spine 4 or 5 Views MR#: [id number] Acct: [id number] Name: YARA LOYA Silvestre Rep #: [id number] : 1950 F [id number] From: Anju Perez PCP: AUSTIN Woodward Status: DEP AMB Study: Cerv Spine 4 or 5 Views Date of Exam: 11/18/24 Exam# [id number] Ordering Dr: Denis Loja MD PROCEDURE: CERV SPINE 4 OR 5 VIEWS 11/18/2024 REASON FOR EXAM: NECK PAIN TECHNIQUE: CERV SPINE 4 OR 5 VIEWS COMPARISON: Cervical spine study dated 09/09/2021 FINDINGS: Diffuse osteopenia of the osseous structures of the cervical spine are noted. The dens and lateral masses are somewhat obscured by normal overlapping anatomical structures. The visualized portions appear to be intact. There is loss of the normal lordotic cervical curvature. There has been multilevel posterior laminectomy and fusion with radiopaque rods and screws in place. There is no fracture or loosening of the radiopaque hardware. There has also been prior anterior fusion with a radiopaque plate and screws present over the lower cervical spine. There is no fracture or loosening of the radiopaque hardware. There appears to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 1 Normal kidney function or >=90 normal kindney function with possible kidney damage (ex. Proteinuria) CKD 2 Kidney damage with mild loss 60-89 of kidney function CKD 3a Mild to moderate loss of kidney 45-59 function CKD 3b Moderate to severe loss of 30-44 of kindey function CKD 4 Severe loss of kidney function 15-29 CKD 5 Kidney failure <15 Note: (go live 2024) the eGFR calculation was updated to the 2020 CKD-EPI creatinine equation without a race factor to calculate the eGFR results. Performed By: #### A KERRI, GFR, CBC, ADIFF, BMP #### [address] [address] .NEUABSon 08-26-2024 Neutrophil, Absolute 4.0 10 3/mcL Normal 2.3-8.1 [facility] Comment on above: Performed By: #### A KERRI, GFR, CBC, ADIFF, BMP #### [address] [address] ABO/Rh (Gel)on 08-26-2024 ABO/Rh Interp Positive Invalid Interpretation Code [facility] Comment on above: Performed By: #### A BSGEL, ABOGEL #### [address] [address] ABS (Gel)on 08-26-2024 ABSC Interp (Gel) Negative Normal [facility] Comment on above: Performed By: #### A KERRI, GFR, CBC, ADIFF, BMP #### [address] [address] ALBon 08-26-2024 Albumin Level 3.8 G/dL Normal 3.4-4.8 [facility] Comment on above: Performed By: #### A KERRI, GFR, CBC, ADIFF, BMP #### [address] [address] BMPon 08-26-2024 BUN/Creatinine Ratio 33 ratio High 7-27 [facility] Comment on above: Performed By: #### A KERRI, GFR, CBC, ADIFF, BMP #### [address] [address] Calcium [Mass/Vol] 10.0 mg/dL Normal 8.4-10.[address] [facility] Comment on above: Performed By: #### A KERRI, GFR, CBC, ADIFF, BMP #### [address] [address] Chloride [Moles/Vol] 102 mmol/L Normal 98-107 [facility] Comment on above: Performed By: #### A KERRI, GFR, CBC, ADIFF, BMP #### [address] [address] CO2 [Moles/Vol] 28 mmol/L Normal 23-31 [facility] Comment on above: Performed By: #### A KERRI, GFR, CBC, ADIFF, BMP #### [address] [address] Creatinine [Mass/Vol] 0.97 mg/dL High 0.51-0.95 [facility] Comment on above: Performed By: #### A KERRI, GFR, CBC, ADIFF, BMP #### [address] [address] Electrolyte Balance 9.0 mEq/L Normal 4.0-15.0 [facility] Comment on above: Performed By: #### A KERRI, GFR, CBC, ADIFF, BMP #### [address] [address] Glucose [Mass/Vol] 82 mg/dL Low 83-[address] [facility] Comment on above: Performed By: #### A KERRI, GFR, CBC, ADIFF, BMP #### [address] [address] Potassium [Moles/Vol] 4.2 mmol/L Normal 3.5-5.1 [facility] Comment on above: Performed By: #### A KERRI, GFR, CBC, ADIFF, BMP #### [address] [address] Sodium [Moles/Vol] 139 mmol/L Normal 136-[address] [facility] Comment on above: Performed By: #### A KERRI, GFR, CBC, ADIFF, BMP #### [place] [phone] Urea nitrogen [Mass/Vol] 32 mg/dL High 7-18 [facility] Comment on above: Performed By: #### A KERRI, GFR, CBC, ADIFF, BMP #### [place] [phone] CBCon 08-26-2024 Erythrocyte distribution width (RBC) [Ratio] 15.5 % Normal 11.5-15.5 [facility] Comment on above: Order Comment: Pre-A dmission Testing Performed By: #### A KERRI, GFR, CBC, ADIFF, BMP #### [address] [address] Hematocrit (Bld) [Volume fraction] 35.0 % Normal 34.0-46.0 [facility] Comment on above: Order Comment: Pre-A dmission Testing Performed By: #### A KERRI, GFR, CBC, ADIFF, BMP #### [place] [phone] Hgb 11.9 G/dL Low 12.0-16.0 [facility] Comment on above: Order Comment: Pre-A dmission Testing Performed By: #### A KERRI, GFR, CBC, ADIFF, BMP #### [place] [id number] MCH (RBC) [Entitic mass] 30.9 pg Normal 27.0-33.0 [facility] Comment on above: Order Comment: Pre-A dmission Testing Performed By: #### A KERRI, GFR, CBC, ADIFF, BMP #### [place] [phone] MCHC 34.0 G/dL Normal 32.0-36.0 [facility] Comment on above: Order Comment: Pre-A dmission Testing Performed By: #### A KERRI, GFR, CBC, ADIFF, BMP #### [address] [address] MCV (RBC) [Entitic vol] 90.9 fL Normal 80.0-99.0 [facility] Comment on above: Order Comment: Pre-A dmission Testing Performed By: #### A KERRI, GFR, CBC, ADIFF, BMP #### [address] [address] Platelet 250 10 3/mcL Normal 150-450 [facility] Comment on above: Order Comment: Pre-A dmission Testing Performed By: #### A KERRI, GFR, CBC, ADIFF, BMP #### [address] [address] Platelet mean volume (Bld) [Entitic vol] 8.3 fL Normal 6.6-10.5 [facility] Comment on above: Order Comment: Pre-A dmission Testing Performed By: #### A KERRI, GFR, CBC, ADIFF, BMP #### [address] [address] RBC 3.85 10 6/mcL Low 4.10-5.30 [facility] Comment on above: Order Comment: Pre-A dmission Testing Performed By: #### A KERRI, GFR, CBC, ADIFF, BMP #### [address] [address] WBC 7.0 10 3/mcL Normal 4.5-10.8 [facility] Comment on above: Order Comment: Pre-A dmission Testing Performed By: #### A KERRI, GFR, CBC, ADIFF, BMP #### [address] [address] [address] SHOULDER W/O CONTRAST RIG on 08-26-2024 CT SHOULDER W/O CONTRAST RIGHT ORIGINAL EXAMINATION: CT OF THE RIGHT SHOULDER WITHOUT CONTRAST 08/26/2024 9:24 am TECHNIQUE: CT of the right shoulder was performed without the administration of intravenous contrast. Multiplanar reformatted images are provided for review. Automated exposure control, iterative reconstruction, and/or weight based adjustment of the mA/kV was utilized to reduce the radiation dose to as low as reasonably achievable. COMPARISON: None. HISTORY ORDERING SYSTEM PROVIDED HISTORY: Reason for Exam: Pain due to internal orthopedic prosthetic devices, implants and grafts, subsequent encounter FINDINGS: Bones: There are changes related to prior shoulder arthroplasty removal with an antibiotic impregnated humeral spacer present. There are changes of bony remodeling from prior prosthesis. There is some bony remodeling versus age indeterminate fracture deformity of the lesser tuberosity/proximal humeral neck (series 6, image 25, series 400, image 76). The AC joint is widened, may reflect sequela of remote injury. There is subacromial spurring. No suspicious osseous lesions. Partially visualized cervical ACDF and posterior cervicothoracic spinal fusion. Soft Tissue: Small amount of joint fluid. Some subcoracoid fluid with intra-articular debris in the inferior axillary pouch on series 400, image 55. Difficult to evaluate the biceps tendon. Generalized rotator cuff muscle atrophy that is most severe involving the subscapularis muscle belly. Partially visualized lung zone demonstrates emphysema. 2 mm right apical solid noncalcified nodule on series 6, image 15. IMPRESSION: 1. Changes related to prior shoulder arthroplasty removal with an antibiotic impregnated humeral spacer in place. There is bony remodeling versus age indeterminate fracture deformity of the lesser tuberosity/proximal humeral neck. 2. Small amount of joint fluid with intra-articular debris in the inferior axillary pouch. 3. Generalized rotator cuff muscle atrophy that is most severe involving the subscapularis muscle belly. 4. 2 mm right apical solid noncalcified nodule. Interpreted by: Clovis Anderson Preliminary Report By: Clovis Anderson Electronically signed By Clovis Anderson Dictated Date: 08/26/2024 9:26:09 AM Prelim Date: 08/26/2024 9:36:48 AM Sign Date: 08/26/2024 9:36:48 AM Ordering Provider: DEJAN Esteves [facility] LABORATORYOrdered By: Jose Maria Banks on 08-26-2024 ABO and Rh group Nom (Bld) Blood group O Rh(D) positive Invalid Interpretation Code AO BB Auto SS Blood group antibody screen Ql Negative ABSC (08/26/24 9:01 AM) Normal AO BB Auto SS LABORATORYOrdered By: SYSTEM SYSTEM on 08-26-2024 Albumin BCP dye [Mass/Vol] 3.8 G/dL Normal 3.4 - 4.8 G/dL AO ADM SS Basophils (Bld) [#/Vol] 0.0 103/mcL Normal 0.0 - 0.3 10^3/mcL AO Workflow SS Basophils/100 WBC (Bld) 0.6 % Normal 0.0 - 2.5 % AO Workflow SS Calcium [Mass/Vol] 10.0 mg/dL Normal 8.4 - 10. 2 mg/dL AO ADM SS Chloride [Moles/Vol] 102 mmol/L Normal 98 - 10 7 mmol/L AO ADM SS CO2 [Moles/Vol] 28 mmol/L Normal 23 - 31 mmol/L AO ADM SS Creatinine [Mass/Vol] 0.97 mg/dL High 0.51 - 0.95 mg/dL AO ADM SS Electrolyte Balance 9.0 mEq/L Normal 4.0 - 15 .0 mEq/L AO ADM SS Eosinophil, Absolute 0.2 103/mcL Normal 0.0 - 0 .7 10^3/mcL AO Workflow SS Eosinophils/100 WBC (Bld) 2.7 % Normal 0.0 - 6.0 % AO Workflow SS Erythrocyte distribution width (RBC) [Ratio] 15.5 % Normal 11.5 - 15.5 % AO Workflow SS Estimated Glomerular Filtration Rate 62 ml/min/1.73sqm Invalid Interpretation Code AO Chemistry S Comment on above: Interpretive Data: Stages of Chronic Kidney Disease (CKD) Stage Description eGFR(ml/min/1.73 sq.m.) CKD 1 Normal kidney function or >=90 normal kindney function with possible kidney damage (ex. Proteinuria) CKD 2 Kidney damage with mild loss 60-89 of kidney function CKD 3a Mild to moderate loss of kidney 45-59 function CKD 3b Moderate to severe loss of 30-44 of kindey function CKD 4 Severe loss of kidney function 15-29 CKD 5 Kidney failure <15 Note: (go live 2024) the eGFR calculation was updated to the 2020 CKD-EPI creatinine equation without a race factor to calculate the eGFR results. Glucose [Mass/Vol] 82 mg/dL Low 83 - 110 mg/dL AO ADM SS Hematocrit (Bld) [Volume fraction] 35.0 % Normal 34.0 - 46.0 % AO Workflow SS Hemoglobin (Bld) [Mass/Vol] 11.9 G/dL Low 12.0 - 16.0 G/dL AO Workflow SS Lymphocytes (Bld) [#/Vol] 2.4 103/mcL Normal 0.9 - 4.3 10^3/mcL AO Workflow SS Lymphocytes/100 WBC (Bld) 34.2 % Normal 20.0 - 40.0 % AO Workflow SS MCH (RBC) [Entitic mass] 30.9 pg Normal 27.0 - 33.0 pg AO Workflow SS MCHC 34.0 G/dL Normal 32.0 - 36.0 G/dL AO Workflow SS MCV (RBC) [Entitic vol] 90.9 fL Normal 80.0 - 99.0 fL AO Workflow SS Monocytes (Bld) [#/Vol] 0.4 103/mcL Normal 0.1 - 1.4 10^3/mcL AO Workflow SS Monocytes/100 WBC (Bld) 5.6 % Normal 2.0 - 13.0 % AO Workflow SS Neutrophils (Bld) [#/Vol] 4.0 103/mcL Normal 2.3 - 8.1 10^3/mcL AO Workflow SS Neutrophils/100 WBC (Bld) 56.9 % Normal 50.0 - 75.0 % AO Workflow SS Platelet mean volume (Bld) [Entitic vol] 8.3 fL Normal 6.6 - 10.5 fL AO Workflow SS Platelets (Bld) [#/Vol] 250 103/mcL Normal 150 - 450 10^3/mcL AO Workflow SS Potassium [Moles/Vol] 4.2 mmol/L Normal 3.5 - 5.1 mmol/L AO ADM SS RBC (Bld) [#/Vol] 3.85 106/mcL Low 4.10 - 5.3 0 10^6/mcL AO Workflow SS Sodium [Moles/Vol] 139 mmol/L Normal 136 - 145 mmol/L AO ADM SS Urea nitrogen [Mass/Vol] 32 mg/dL High 7 - 18 mg/dL AO ADM SS Urea nitrogen/Creatinine [Mass ratio] 33 ratio High 7 - 27 ratio AO ADM SS WBC (Bld) [#/Vol] 7.0 103/mcL Normal 4.5 - 10.8 10^3/mcL AO Workflow SS LABORATORYOrdered By: Suzy Mario on 08-26-2024 MRSA (PCR) Not Detected 1 (08/26/24 9:01 AM) Normal Not Detected Auto Viro/Sero SS Comment on above: Result Comment: [place] s [id number] MRSA PCR Int MRSA DNA not detecte d by Real-Time Polymerase Chain Reaction (PCR). A negative result may be due to intermittent colonization. Colonization may vary depending on patient treatment, patient status, or exposure to high-risk environments. As with all PCR based in vitro diagnostic tests, extremely low levels of target below the limit of detection of the assay may be detected, but results may not be reproducible. Invalid Interpretation Code Auto Viro/Sero SS MRSAPCRon 08-26-2024 MRSA (PCR) Not detected Normal Not Detected [facility] Comment on above: Result Comment: [place] [id number] Performed By: #### A KERRI, GFR, CBC, ADIFF, BMP #### [address] [address] MRSA PCR Int Normal [facility] Comment on above: Result Comment: MRSA DNA not detected by Real-Time Polymerase Chain Reaction (PCR). A negative result may be due to intermittent colonization. Colonization may vary depending on patient treatment, patient status, or exposure to high-risk environments. As with all PCR based in vitro diagnostic tests, extremely low levels of target below the limit of detection of the assay may be detected, but results may not be reproducible. See Below Performed By: #### A KERRI, GFR, CBC, ADIFF, BMP #### [address] [address] Amphetamine detection with 1 000 ng/mL as cutoffOrdered By: Marion Christianson on 08-24-2024 Amphetamines Screen method >1000 ng/mL Ql (U) Negative < 200 ng/mL [facility] Amphetamines Screen method > 1000 ng/mL Ql (U)Ordered By: Marion Christianson on 08-24-2024 Amphetamines Ql (U) Negative <1000 ng/mL [facility] Urine Barbiturates Screen Negative < 200 ng/mL [facility] Methadone, urineOrdered By: Marion Christianson on 08-24-2024 Urine Methadone Screen Negative < 300 ng/mL [facility] No Panel InformationOrdered By: Marion Christianson on 08-24-2024 Urine Buprenorphine Qualitative Negative < 200 ng/mL [facility] Urine Oxycodone Screen Negative < 100 ng/mL [facility] Quantitative urine opiates m easurementOrdered By: Marion Christianson on 08-24-2024 Opiates Ql (U) Positive < 300 ng/mL [facility] Comment on above: If confirmation test ing is needed, a separate order will be required to send out testing to the reference laboratory. Screening urine fentanyl francis surementOrdered By: Marion Christianson on 08-24-2024 fentaNYL Screen Ql (U) Negative [facility] Urine Drug Screen (VISTA)on 08-24-2024 AMPHETAMINES Negative Normal <1000 ng/mL [facility] Comment on above: Order Comment: ,EDTO X Performed By: #### L 505.5000, L3410.9992 ####[facility] [address] [place] [address] BARBITIURATES Negative Normal < 200 ng/mL [facility] Comment on above: Order Comment: ,EDTO X Performed By: #### L 505.5000, L3410.9992 ####[facility] [address] [place] [address] BENZODIAZIPINE Negative Normal < 200 ng/mL [facility] Comment on above: Order Comment: ,EDTO X Performed By: #### L 505.5000, L3410.9992 ####[facility] [address] [place] [address] BUP Ur Drug Scr Negative Normal < 200 ng/mL [facility] Comment on above: Order Comment: ,EDTO X Performed By: #### L 505.5000, L3410.9992 ####[facility] [address] [place] [address] COCAINE Negative Normal < 300 ng/mL [facility] Comment on above: Order Comment: ,EDTO X Performed By: #### L 505.5000, L3410.9992 ####[facility] [address] [place], [address] Fentanyl Negative Normal [facility] Comment on above: Order Comment: ,EDTO X Performed By: #### L 505.5000, L3410.9992 ####[facility] [address] [place], [address] METHADONE Negative Normal < 300 ng/mL [facility] Comment on above: Order Comment: ,EDTO X Performed By: #### L 505.5000, L3410.9992 ####[facility] [address] [place], [address] OPIATES Positive Normal < 300 ng/mL [facility] Comment on above: Order Comment: ,EDTO X Result Comment: If c onfirmation testing is needed, a separate order will be required to send out testing to the reference laboratory. Performed By: #### L 505.5000, L3410.9992 ####[facility] [address] [place], [address] OXYCODONE Negative Normal < 100 ng/mL [facility] Comment on above: Order Comment: ,EDTO X Performed By: #### L 505.5000, L3410.9992 ####[facility] [address] [place], [address] PCP Negative Normal < 25 ng/mL [facility] Comment on above: Order Comment: ,EDTO X Performed By: #### L 505.5000, L3410.9992 ####[facility] [address] [place], [address] THC Negative Normal < 50 ng/mL [facility] Comment on above: Order Comment: ,EDTO X Performed By: #### L 505.5000, L3410.9992 ####[facility] [address] [place], [address] Urine benzodiazepine levelOr dered By: Marion Christianson on 08-24-2024 Benzodiazepines Ql (U) Negative < 200 ng/mL [facility] Urine cocaine levelOrdered B y: Beatricesruthi Meghan on 08-24-2024 Cocaine Ql (U) Negative < 300 ng/mL [facility] Urine svtre-1-zxtabptsywrhxs abinol (THC) measurementOrdered By: Marion Christianson on 08-24-2024 Cannabinoids Screen Ql (U) Negative < 50 ng/mL [facility] Urine phencyclidine (PCP) de tectionOrdered By: Marion Christianson on 08-24-2024 Phencyclidine Ql (U) Negative < 25 ng/mL [facility] fentaNYL Screen Ql (U)Ordere d By: Marion Christianson on 08-24-2024 Urine Fentanyl Screen Negative [facility] Absolute lymphocyte countOrd ered By: Dejan Ferrara on 08-19-2024 Lymphocytes Auto (Unsp spec) [#/Vol] 2.28 10*3/uL 0.83-4.51 [facility] Absolute neutrophil countOrd ered By: Dejan Ferrara on 08-19-2024 Neutrophils (Bld) [#/Vol] 3.5 10*3/uL 2.0-7.7 [facility] Automated blood erythrocyte countOrdered By: Dejan Ferrara on 08-19-2024 RBC (Bld) [#/Vol] 3.60 10*6/uL Low 4.2-5.4 [facility] Comment on above: Performed By: #### L 501.6710, L100.0100, L101.9900 ####[facility] [address] [place], [address] Automated blood hematocrit ( percentage)Ordered By: Dejan Ferrara on 08-19-2024 Hematocrit (Bld) [Volume fraction] 33.3 % Low 37-47 [facility] Comment on above: Performed By: #### L 501.6710, L100.0100, L101.9900 ####[facility] [address] [place], [address] Automated lymphocyte count a s percentage of total leukocytesOrdered By: Dejan Ferrara on 08-19-2024 Lymphocytes/100 WBC (Bld) 35.3 % Normal 19- [facility] Comment on above: Performed By: #### L 501.6710, L100.0100, L101.9900 ####[facility] [address] [place], [address] Lymphocytes/100 WBC Auto (Unsp spec) 35.3 % - [facility] Basophil percentageOrdered B y: Dejan Ferrara on 08-19-2024 Basophils/100 WBC (Bld) 0.8 % Normal 0-1 [facility] Comment on above: Performed By: #### L 501.6710, L100.0100, L101.9900 ####[facility] [address] [place], [address] CBC W/Diff, Automatedon 08-02 Absolute Lymph 2.28 X10 3/uL Normal 0.83-4.51 [facility] Comment on above: Performed By: #### L 501.6710, L100.0100, L101.9900 ####[facility] [address] [place], [address] Absolute Neut 3.5 X10 3/uL Normal 2.0-7.7 [facility] Comment on above: Performed By: #### L 501.6710, L100.0100, L101.9900 ####[facility] [address] [place], [address] IG% 0.200 Normal 0.0-0.9 [facility] Comment on above: Result Comment: IG% - Immature Granulocytes (promyelocytes, myelocytes and metamyelocytes) > 1% indicates that a LEFT SHIFT is Present. Performed By: #### L 501.6710, L100.0100, L101.9900 ####[facility] [address] [place], [address] Nucleated RBC (Bld) [#/Vol] 0 10*3/uL Normal 0-5 [facility] Comment on above: Performed By: #### L 501.6710, L100.0100, L101.9900 ####[facility] [address] [place], [address] RDW SD 48.4 fl High 35.1-43.9 [facility] Comment on above: Performed By: #### L 501.6710, L100.0100, L101.9900 ####[facility] [address] [place], [address] CRPon 08-19-2024 C-REACTIVE PROT 5.41 mg/L High 0.0-3.0 [facility] Comment on above: Performed By: #### L 501.6710, L100.0100, L101.9900 ####[facility] [address] [place], [address] CRP [Mass/Vol]Ordered By: St carol Ferrara on 08-19-2024 C-Reactive Protein Extended Range 5.41 mg/L High 0.0-3.0 [facility] Eosinophil percentageOrdered By: Dejan Ferrara on 08-19-2024 Eosinophils/100 WBC (Bld) 2.5 % Normal 0-5 [facility] Comment on above: Performed By: #### L 501.6710, L100.0100, L101.9900 ####[facility] [address] [place], [address] Erythrocyte Sed Rateon 08-19 SED RATE 9 mm/hr Normal 0-30 [facility] Comment on above: Performed By: #### L 501.6710, L100.0100, L101.9900 ####[facility] [address] [place], [address] Erythrocyte distribution wid th (RBC) [Ratio]Ordered By: Dejan Ferrara on 08-19-2024 Erythrocyte distribution width (RBC) [Entitic vol] 48.4 fL High 35.1-43.9 [facility] Erythrocyte distribution wid th ratioOrdered By: Dejan Ferrara on 08-19-2024 Erythrocyte distribution width (RBC) [Ratio] 14.1 % Normal 11.6-14.6 [facility] Comment on above: Performed By: #### L 501.6710, L100.0100, L101.9900 ####[facility] [address] [place], [place], [id number] Erythrocyte distribution wid th standard deviationOrdered By: Dejan Ferrara on 08-19-2024 Erythrocyte distribution width (RBC) [Ratio] 48.4 fl High 35.1-43.9 [facility] Erythrocyte sedimentation ra teOrdered By: Dejan Ferrara on 08-19-2024 ESR (Bld) [Velocity] 9 mm/h 0-30 [facility] Hemoglobin measurementOrdere d By: Dejan Ferrara on 08-19-2024 Hemoglobin (Bld) [Mass/Vol] 11.1 g/dL Low 12.0-15.0 [facility] Comment on above: Performed By: #### L 501.6710, L100.0100, L101.9900 ####[facility] [address] [place], [place], [id number] Immature granulocytes/100 WB C Auto (Bld)Ordered By: Dejan Ferrara on 08-19-2024 Immature granulocytes/100 WBC (Bld) 0.200 % 0.0-0.9 [facility] Comment on above: IG% - Immature Granu locytes (promyelocytes, myelocytes and metamyelocytes) > 1% indicates that a LEFT SHIFT is Present. Lymphocytes Auto (Unsp spec) [#/Vol]Ordered By: Dejan Ferrara on 08-19-2024 Lymphocytes (Bld) [#/Vol] 2.28 10*3/uL 0.83-4.51 [facility] MCV (mean corpuscular volume ) determinationOrdered By: Dejan Ferrara on 08-19-2024 MCV (RBC) [Entitic vol] 92.5 fL Normal 81-99 [facility] Comment on above: Performed By: #### L 501.6710, L100.0100, L101.9900 ####[facility] [address] [place], [address] Mean corpuscular hemoglobin (MCH) determinationOrdered By: Dejan Ferrara on 08-19-2024 MCH (RBC) [Entitic mass] 30.8 pg Normal 27.0-32.0 [facility] Comment on above: Performed By: #### L 501.6710, L100.0100, L101.9900 ####[facility] [address] [place], [address] Mean corpuscular hemoglobin concentration (MCHC) determinationOrdered By: Dejan Ferrara on 08-19-2024 MCHC (RBC) [Mass/Vol] 33.3 g/dL Normal 32-36 [facility] Comment on above: Performed By: #### L 501.6710, L100.0100, L101.9900 ####[facility] [address] [place], [address] Mean platelet volume determi nationOrdered By: Dejan Ferrara on 08-19-2024 Platelet mean volume (Bld) [Entitic vol] 10.8 fL Normal 6.2-12.0 [facility] Comment on above: Performed By: #### L 501.6710, L100.0100, L101.9900 ####[facility] [address] [place], [address] Monocyte percentageOrdered B y: Dejan Ferrara on 08-19-2024 Monocytes/100 WBC (Bld) 7.9 % Normal 0-10 [facility] Comment on above: Performed By: #### L 501.6710, L100.0100, L101.9900 ####[facility] [address] [place], [address] Neutrophil percentageOrdered By: Dejan Ferrara on 08-19-2024 Neutrophils/100 WBC (Bld) 53.3 % Normal 47-70 [facility] Comment on above: Performed By: #### L 501.6710, L100.0100, L101.9900 ####[facility] [address] [place], [address] Nucleated red blood cell per centageOrdered By: Dejan Davi on 08-19-2024 Nucleated RBC/100 WBC (Bld) [Ratio] 0 % 0-5 [facility] Platelet countOrdered By: carol Davi on 08-19-2024 Platelets (Bld) [#/Vol] 242 10*3/uL Normal 150-450 [facility] Comment on above: Performed By: #### L 501.6710, L100.0100, L101.9900 ####[facility] [address] [place], [address] Serum or plasma C reactive p rotein measurement (mass/volume)Ordered By: Dejan Ferrara on 08-19-2024 CRP [Mass/Vol] 5.41 mg/L High 0.0-3.0 [facility] White blood cell (WBC) count Ordered By: Dejan Ferrara on 08-19-2024 WBC (Bld) [#/Vol] 6.5 10*3/uL Normal 4.4-11.0 [facility] Comment on above: Performed By: #### L 501.6710, L100.0100, L101.9900 ####[facility] [address] [place], [address] Acid Fast Bacillus Cultureon 08-12-2024 tAFBC Comments: collected in [place] - humeral membrane Is this test to exclude patient from TB Isolation? N TESTING PERFORMED AT [facility]. ORIGINAL REPORT ON FILE IN LAB CONTAINS ADDITIONAL TEST SITE INFORMATION. Culture, Acid Fast NO ACID-FAST BACILLI ISOLATED AFTER 6 WEEKS. [facility] Comment on above: Performed By: #### P ERIK #### [facility] [address] [facility] [address] [place], [place], [address] tAF Comments: collected in [place] - glenoid membrane Is this test to exclude patient from TB Isolation? N TESTING PERFORMED AT [facility]. ORIGINAL REPORT ON FILE IN LAB CONTAINS ADDITIONAL TEST SITE INFORMATION. Culture, Acid Fast NO ACID-FAST BACILLI ISOLATED AFTER 6 WEEKS. [facility] Comment on above: Performed By: #### M 100.4001, M600.2000, M300.3000, M100.3000, M100.2000, M600.2200, M300.2000 ####[facility] [address] [facility] [place], [place], [address] tAF Comments: collected in [place] - anterior bursa Is this test to exclude patient from TB Isolation? N TESTING PERFORMED AT [facility]. ORIGINAL REPORT ON FILE IN LAB CONTAINS ADDITIONAL TEST SITE INFORMATION. Culture, Acid Fast NO ACID-FAST BACILLI ISOLATED AFTER 6 WEEKS. [facility] Comment on above: Performed By: #### L 3410.9999 #### [facility] [address] [facility] [address] [place], [place], [address] Acid Fast Bacillus Smear/Flu oron 08-12-2024 tafb Comments: collected in [place] - humeral membrane Is this test to exclude patient from TB Isolation? N TESTING PERFORMED AT [facility]. ORIGINAL REPORT ON FILE IN LAB CONTAINS ADDITIONAL TEST SITE INFORMATION. Smear, Acid Fast Tissue Grinding Smear: Negative [facility] Comment on above: Performed By: #### P ERIK #### [facility] [address] [place], [place], [address] tafb Comments: collected in [place] - glenoid membrane Is this test to exclude patient from TB Isolation? N TESTING PERFORMED AT [facility]. ORIGINAL REPORT ON FILE IN LAB CONTAINS ADDITIONAL TEST SITE INFORMATION. Smear, Acid Fast Tissue Grinding Smear: Negative Normal [facility] Comment on above: Performed By: #### M 100.4001, M600.2000, M300.3000, M100.3000, M100.2000, M600.2200, M300.1999 ####[facility] [address] [place], [place], [address] tafb Comments: collected in [place] - anterior bursa Is this test to exclude patient from TB Isolation? N TESTING PERFORMED AT [facility]. ORIGINAL REPORT ON FILE IN LAB CONTAINS ADDITIONAL TEST SITE INFORMATION. Smear, Acid Fast Tissue Grinding Smear: Negative [facility] Comment on above: Performed By: #### L 3410.9999 #### [facility] [address] [facility] [place], [place], [address] Culture, Fungus 8482on 08-12 CUF Comments: collected in [place] - humeral membrane Is this test to exclude patient from TB Isolation? [facility] ORIGINAL REPORT ON FILE IN LAB CONTAINS ADDITIONAL TEST SITE INFORMATION. CUF No yeast or mold isolated after 4 weeks. Normal [facility] Comment on above: Performed By: #### P ERIK #### [facility] [address] [facility] [address] [place], [place], [address] CUF Comments: collected in [place] - glenoid membrane Is this test to exclude patient from TB Isolation? [facility] ORIGINAL REPORT ON FILE IN LAB CONTAINS ADDITIONAL TEST SITE INFORMATION. CUF No yeast or mold isolated after 4 weeks. [facility] Comment on above: Performed By: #### M 100.4001, M600.2000, M300.3000, M100.3000, M100.2000, M600.2200, M300.2000 ####[facility] [address] [place], [address] CUF Comments: collected in [place] - anterior bursa Is this test to exclude patient from TB Isolation? N TESTING PERFORMED AT [facility]. ORIGINAL REPORT ON FILE IN LAB CONTAINS ADDITIONAL TEST SITE INFORMATION. CUF No yeast or mold isolated after 4 weeks. [facility] Comment on above: Performed By: #### L 3410.9999 #### [facility] [address] [place], [place], [address] Fungus Stain 8136on 08-13-19 FUNST Comments: collected in [place] - humeral membrane Is this test to exclude patient from TB Isolation? N TESTING PERFORMED AT [facility]. ORIGINAL REPORT ON FILE IN LAB CONTAINS ADDITIONAL TEST SITE INFORMATION. Fungus Stain No fungus observed. [facility] Comment on above: Performed By: #### P ERIK #### [facility] [address] [facility] [place], [address] FUNST Comments: collected in [place] - glenoid membrane Is this test to exclude patient from TB Isolation? [facility] ORIGINAL REPORT ON FILE IN LAB CONTAINS ADDITIONAL TEST SITE INFORMATION. Fungus Stain No fungus observed. [facility] Comment on above: Performed By: #### M 100.4001, M600.2000, M300.3000, M100.3000, M100.2000, M600.2200, M300.2000 ####[facility] [address] [facility] [place], [address] FUNST Comments: collected in [place] - anterior bursa Is this test to exclude patient from TB Isolation? N TESTING PERFORMED AT [facility]. ORIGINAL REPORT ON FILE IN LAB CONTAINS ADDITIONAL TEST SITE INFORMATION. Fungus Stain No fungus observed. Normal [facility] Comment on above: Performed By: #### Tierra VALENCIA #### [facility] [address] [place], [address] Absolute lymphocyte countOrd ered By: Dejan Ferrara on 08-05-2024 Lymphocytes Auto (Unsp spec) [#/Vol] 1.63 10*3/uL 0.83-4.51 [facility] Absolute neutrophil countOrd ered By: Dejan Ferrara on 08-05-2024 Neutrophils (Bld) [#/Vol] 8.6 10*3/uL High 2.0-7.7 [facility] Automated lymphocyte count a s percentage of total leukocytesOrdered By: Dejan Ferrara on 08-05-2024 Lymphocytes/100 WBC Auto (Unsp spec) 15.2 % Low 19-41 [facility] Basophil percentageOrdered B y: Dejan Ferrara on 08-05-2024 Basophils/100 WBC (Bld) 0.4 % 0-1 [facility] CBC W/Diff, Automatedon 04- Absolute Lymph 1.63 X10 3/uL Normal 0.83-4.51 [facility] Comment on above: Performed By: #### L 101.9900, L100.0100, L501.6710 ####[facility] [address] [place], [address] Absolute Neut 8.6 X10 3/uL High 2.0-7.7 [facility] Comment on above: Performed By: #### L 101.9900, L100.0100, L501.6710 ####[facility] [address] [place], [address] Basophils/100 WBC (Bld) 0.4 % Normal 0-1 [facility] Comment on above: Performed By: #### L 101.9900, L100.0100, L501.6710 ####[facility] [address] [place], [address] Eosinophils/100 WBC (Bld) 0.1 % Normal 0-5 [facility] Comment on above: Performed By: #### L 101.9900, L100.0100, L5.6710 ####[facility] [address] [place], [address] Erythrocyte distribution width (RBC) [Ratio] 15.0 % High 11.6-14.6 [facility] Comment on above: Performed By: #### L 101.9900, L100.0100, L5.6710 ####[facility] [address] [place], [address] Hematocrit (Bld) [Volume fraction] 34.6 % Low 37-47 [facility] Comment on above: Performed By: #### L 101.9900, L100.0100, L5.6710 ####[facility] [address] [place], [address] Hemoglobin (Bld) [Mass/Vol] 11.1 g/dL Low 12.0-15.0 [facility] Comment on above: Performed By: #### L 101.9900, L100.0100, L5.6710 ####[facility] [address] [place], [address] IG% 0.400 Normal 0.0-0.9 [facility] Comment on above: Result Comment: IG% - Immature Granulocytes (promyelocytes, myelocytes and metamyelocytes) > 1% indicates that a LEFT SHIFT is Present. Performed By: #### L 101.9900, L100.0100, L501.6710 ####[facility] [address] [place], [address] Lymphocytes/100 WBC (Bld) 15.2 % Low 19-41 [facility] Comment on above: Performed By: #### L 101.9900, L100.0100, L501.6710 ####[facility] [address] [place], [address] MCH (RBC) [Entitic mass] 30.3 pg Normal 27.0-32.0 [facility] Comment on above: Performed By: #### L 101.9900, L100.0100, L501.6710 ####[facility] [address] [place], [address] MCHC (RBC) [Mass/Vol] 32.1 g/dL Normal 32-36 [facility] Comment on above: Performed By: #### L 101.9900, L100.0100, L5.10 ####[facility] [address] [place], [address] MCV (RBC) [Entitic vol] 94.5 fL Normal 81-99 [facility] Comment on above: Performed By: #### L 101.9900, L100.0100, L501.6710 ####[facility] [address] [place], [address] Monocytes/100 WBC (Bld) 3.6 % Normal 0-10 [facility] Comment on above: Performed By: #### L 101.9900, L100.0100, L501.6710 ####[facility] [address] [place], [address] Neutrophils/100 WBC (Bld) 80.3 % High 47-70 [facility] Comment on above: Performed By: #### L 101.9900, L100.0100, L501.6710 ####[facility] [address] [place], [address] Nucleated RBC (Bld) [#/Vol] 0 10*3/uL Normal 0-5 [facility] Comment on above: Performed By: #### L 101.9900, L100.0100, L501.6710 ####[facility] [address] [place], [address] Platelet mean volume (Bld) [Entitic vol] 10.5 fL Normal 6.2-12.0 [facility] Comment on above: Performed By: #### L 101.9900, L100.0100, L501.6710 ####[facility] [address] [place], [address] Platelets (Bld) [#/Vol] 302 10*3/uL Normal 150-450 [facility] Comment on above: Performed By: #### L 101.9900, L100.0100, L501.6710 ####[facility] [address] [place], [address] RBC (Bld) [#/Vol] 3.66 10*6/uL Low 4.2-5.4 [facility] Comment on above: Performed By: #### L 101.9900, L100.0100, L501.6710 ####[facility] [address] [place], [address] RDW SD 52.4 fl High 35.1-43.9 [facility] Comment on above: Performed By: #### L 101.9900, L100.0100, L501.6710 ####[facility] [address] [place], [address] WBC (Bld) [#/Vol] 10.8 10*3/uL Normal 4.4-11.0 [facility] Comment on above: Performed By: #### L 101.9900, L100.0100, L501.6710 ####[facility] [address] [place], [address] CRPon 08-05-2024 C-REACTIVE PROT < 3.00 Normal 0.0-3.0 [facility] Comment on above: Performed By: #### L 101.9900, L100.0100, L501.6710 ####[facility] [address] [place], [place], [id number] CRP [Mass/Vol]Ordered By: St carol Ferrara on 08-05-2024 C-Reactive Protein Extended Range < 3.00 mg/L 0.0-3.0 [facility] Eosinophil percentageOrdered By: Dejan Ferrara on 08-05-2024 Eosinophils/100 WBC (Bld) 0.1 % 0-5 [facility] Erythrocyte Sed Rateon 08-05 SED RATE 21 mm/hr Normal 0-30 [facility] Comment on above: Performed By: #### L 101.9900, L100.0100, L501.6710 ####[facility] [address] [facility] [place], [place], [address] Erythrocyte distribution wid th (RBC) [Ratio]Ordered By: Dejan Ferrara on 08-05-2024 Erythrocyte distribution width (RBC) [Entitic vol] 52.4 fL High 35.1-43.9 [facility] Erythrocyte distribution wid th ratioOrdered By: Dejan Ferrara on 08-05-2024 Erythrocyte distribution width (RBC) [Ratio] 15.0 % High 11.6-14.6 [facility] Erythrocyte distribution wid th standard deviationOrdered By: Dejan Ferrara on 08-05-2024 Erythrocyte distribution width (RBC) [Ratio] 52.4 fl High 35.1-43.9 [facility] Erythrocyte sedimentation ra teOrdered By: Dejan Ferrara on 08-05-2024 ESR (Bld) [Velocity] 21 mm/h 0-30 [facility] Hematocrit Auto (Bld) [Volum e fraction]Ordered By: Dejan Ferrara on 08-05-2024 Hematocrit (Bld) [Volume fraction] 34.6 % Low 37-47 [facility] Hemoglobin measurementOrdere d By: Dejan Ferrara on 08-05-2024 Hemoglobin (Bld) [Mass/Vol] 11.1 g/dL Low 12.0-15.0 [facility] Immature granulocytes/100 WB C Auto (Bld)Ordered By: Dejan Ferrara on 08-05-2024 Immature granulocytes/100 WBC (Bld) 0.400 % 0.0-0.9 [facility] Comment on above: IG% - Immature Granu locytes (promyelocytes, myelocytes and metamyelocytes) > 1% indicates that a LEFT SHIFT is Present. Lymphocytes Auto (Unsp spec) [#/Vol]Ordered By: Dejan Ferrara on 08-05-2024 Lymphocytes (Bld) [#/Vol] 1.63 10*3/uL 0.83-4.51 [facility] Lymphocytes/100 WBC Auto (Un sp spec)Ordered By: Dejan Ferrara on 08-05-2024 Lymphocytes/100 WBC (Bld) 15.2 % Low 19-41 [facility] MCV (mean corpuscular volume ) determinationOrdered By: Dejan Ferrara on 08-05-2024 MCV (RBC) [Entitic vol] 94.5 fL 81-99 [facility] Mean corpuscular hemoglobin (MCH) determinationOrdered By: Dejan Ferrara on 08-05-2024 MCH (RBC) [Entitic mass] 30.3 pg 27.0-32.0 [facility] Mean corpuscular hemoglobin concentration (MCHC) determinationOrdered By: Dejan Ferrara on 08-05-2024 MCHC (RBC) [Mass/Vol] 32.1 g/dL 32-36 [facility] Mean platelet volume determi nationOrdered By: Dejan Ferrara on 08-05-2024 Platelet mean volume (Bld) [Entitic vol] 10.5 fL 6.2-12.0 [facility] Monocyte percentageOrdered B y: Dejan Ferrara on 08-05-2024 Monocytes/100 WBC (Bld) 3.6 % 0-10 [facility] Neutrophil percentageOrdered By: Dejan Ferrara on 08-05-2024 Neutrophils/100 WBC (Bld) 80.3 % High 47-70 [facility] Nucleated red blood cell per centageOrdered By: Dejan Ferrara on 08-05-2024 Nucleated RBC/100 WBC (Bld) [Ratio] 0 % 0-5 [facility] Platelet countOrdered By: St medina Davi on 08-05-2024 Platelets (Bld) [#/Vol] 302 10*3/uL 150-450 [facility] RBC Auto (Bld) [#/Vol]Ordere d By: Dejan Davi on 08-05-2024 RBC (Bld) [#/Vol] 3.66 10*6/uL Low 4.2-5.4 [facility] Serum or plasma C reactive p rotein measurement (mass/volume)Ordered By: Dejan Ferrara on 08-05-2024 CRP [Mass/Vol] mg/L 0.0-3.0 [facility] White blood cell (WBC) count Ordered By: Deajn Ferrara on 08-05-2024 WBC (Bld) [#/Vol] 10.8 10*3/uL 4.4-11.0 [facility] CBC W Auto Differential pane l (Bld)on 08-01-2024 Basophils (Bld) [#/Vol] 0.07 10*3/uL Normal <0.11 [facility] Comment on above: Order Comment: Speci men Type: BLOOD SPECIMENOrdering Facility: [facility] Address: [address] [place] [address] Performed By: #### 5 7021-8, 4537-7 ####[facility] [id number] [place] [address] [place] Basophils/100 WBC (Bld) 1.0 % Normal [facility] Comment on above: Order Comment: Speci men Type: BLOOD SPECIMENOrdering Facility: [facility] Address: [address] [place] [address] Performed By: #### 5 7021-8, 4537-7 ####[facility] [id number] [place] [address] [place] Differential cell count method Nom (Bld) Auto Normal [facility] Comment on above: Order Comment: Speci men Type: BLOOD SPECIMENOrdering Facility: [facility] Address: [address] [place] [address] Performed By: #### 5 7021-8, 7 ####[facility] [id number] [place] [address] [place] Eosinophils (Bld) [#/Vol] 0.21 10*3/uL Normal <0.46 [facility] Comment on above: Order Comment: Speci men Type: BLOOD SPECIMENOrdering Facility: [facility] Address: [address] [place] [address] Performed By: #### 5 7021-8, 4536-11 ####[facility] [id number] [address] [place] Eosinophils/100 WBC (Bld) 3.0 % Normal [facility] Comment on above: Order Comment: Speci men Type: BLOOD SPECIMENOrdering Facility: [facility] Address: [address] [place] [address] Performed By: #### 5 7021-8, 4536-11 ####[facility] [id number] [address] [place] Erythrocyte distribution width (RBC) [Ratio] 15.0 % Normal 11.5-15.0 [facility] Comment on above: Order Comment: Speci men Type: BLOOD SPECIMENOrdering Facility: [facility] Address: [address] [place] [address] Performed By: #### 5 7021-8, 4536-11 ####[facility] LAB[facility] [id number] [place] [id number] [place] Hematocrit (Bld) [Volume fraction] 31.6 % Low 36.0-46.0 [facility] Comment on above: Order Comment: Speci men Type: BLOOD SPECIMENOrdering Facility: [facility] Address: [address] [place] [address] Performed By: #### 5 7021-8, 7 ####[facility] [id number] [place] [id number] [place] Hemoglobin (Bld) [Mass/Vol] 9.6 g/dL Low 11.5-15.5 [facility] Comment on above: Order Comment: Speci men Type: BLOOD SPECIMENOrdering Facility: [facility] Address: [address] [place] [address] Performed By: #### 5 7021-8, 7 ####[facility] [id number] [place] [address] [place] Immature granulocytes (Bld) [#/Vol] 0.03 10*3/uL Normal <0.10 [facility] Comment on above: Order Comment: Speci men Type: BLOOD SPECIMENOrdering Facility: [facility] Address: [address] [place] [address] Performed By: #### 5 7021-8, 7 ####[facility] [id number] [place] [address] [place] Immature granulocytes/100 WBC (Bld) 0.4 % Normal [facility] Comment on above: Order Comment: Speci men Type: BLOOD SPECIMENOrdering Facility: [facility] Address: [address] [place] [address] Performed By: #### 5 7021-8, 7 ####[facility] [id number] [place] [id number] [place] Lymphocytes (Bld) [#/Vol] 2.19 10*3/uL Normal 1.00-4.00 [facility] Comment on above: Order Comment: Speci men Type: BLOOD SPECIMENOrdering Facility: [facility] Address: [address] [place] [address] Performed By: #### 5 7021-8, 7 ####[facility] [id number] [address] [address] [place] Lymphocytes/100 WBC (Bld) 31.6 % Normal [facility] Comment on above: Order Comment: Speci men Type: BLOOD SPECIMENOrdering Facility: [facility] Address: [address] [place] [address] Performed By: #### 5 7021-8, 453-7 ####[facility] [id number] [place] [id number] [place] MCH (RBC) [Entitic mass] 29.8 pg Normal 26.0-34.0 [facility] Comment on above: Order Comment: Speci men Type: BLOOD SPECIMENOrdering Facility: [facility] Address: [address] [place] [address] Performed By: #### 5 7021-8, 7 ####[facility] [id number] [address] [place] MCHC (RBC) [Mass/Vol] 30.4 g/dL Low 30.5-36.0 [facility] Comment on above: Order Comment: Speci men Type: BLOOD SPECIMENOrdering Facility: [facility] Address: [address] [place] [address] Performed By: #### 5 7021-8, 4536-7 ####[facility] [id number] [place] [id number] [place] MCV (RBC) [Entitic vol] 98.1 fL Normal 80.0-100.0 [facility] Comment on above: Order Comment: Speci men Type: BLOOD SPECIMENOrdering Facility: [facility] Address: [address] [place] [address] Performed By: #### 5 7021-8, 4536-7 ####[facility] [id number] [place] [id number] [place] Monocytes (Bld) [#/Vol] 0.62 10*3/uL Normal <0.87 [facility] Comment on above: Order Comment: Speci men Type: BLOOD SPECIMENOrdering Facility: [facility] Address: [address] [place] [address] Performed By: #### 5 7021-8, 4536-7 ####[facility] [id number] [place] [address] [place] Monocytes/100 WBC (Bld) 9.0 % Normal [facility] Comment on above: Order Comment: Speci men Type: BLOOD SPECIMENOrdering Facility: [facility] Address: [address] [place] [address] Performed By: #### 5 7021-8, 4536-7 ####[facility] [id number] [place] [address] [place] Neutrophils (Bld) [#/Vol] 3.80 10*3/uL Normal 1.45-7.50 [facility] Comment on above: Order Comment: Speci men Type: BLOOD SPECIMENOrdering Facility: [facility] Address: [address] [place] [address] Performed By: #### 5 7021-8, 7 ####[facility] [id number] [place] [address] [place] Neutrophils/100 WBC (Bld) 55.0 % Normal [facility] Comment on above: Order Comment: Speci men Type: BLOOD SPECIMENOrdering Facility: [facility] Address: [address] [place] [address] Performed By: #### 5 7021-8, 7 ####[facility] [id number] [place] [id number] [place] Nucleated RBC (Bld) [#/Vol] 10*3/uL Normal <0.01 [facility] Comment on above: Order Comment: Speci men Type: BLOOD SPECIMENOrdering Facility: [facility] Address: [address] [place] [address] Performed By: #### 5 7021-8, 4536-11 ####[facility] [id number] [address] [address] [place] Nucleated RBC/100 WBC (Bld) [Ratio] 0.0 /100 WBC Normal [facility] Comment on above: Order Comment: Speci men Type: BLOOD SPECIMENOrdering Facility: [facility] Address: [address] [place] [address] Performed By: #### 5 7021-8, 4536-11 ####[facility]CLIA [id number] [address] [address] [place] Platelet mean volume (Bld) [Entitic vol] 10.6 fL Normal 9.0-12.7 [facility] Comment on above: Order Comment: Speci men Type: BLOOD SPECIMENOrdering Facility: [facility] Address: [address] [place] [address] Performed By: #### 5 7021-8, 4536-11 ####[facility]CL[facility] [id number] [address] [address] [place] Platelets (Bld) [#/Vol] 274 10*3/uL Normal 150-400 [facility] Comment on above: Order Comment: Speci men Type: BLOOD SPECIMENOrdering Facility: [facility] Address: [address] [place] [address] Performed By: #### 5 7021-8, 4536-11 ####[facility] [facility] [id number] [address] [address] [place] RBC (Bld) [#/Vol] 3.22 10*6/uL Low 3.90-5.20 [facility] Comment on above: Order Comment: Speci men Type: BLOOD SPECIMENOrdering Facility: [facility] Address: [address] [place] [address] Performed By: #### 5 7021-8, 4537-7 ####[facility] [id number] [address] [address] [place] WBC (Bld) [#/Vol] 6.92 10*3/uL Normal 3.70-11.00 [facility] Comment on above: Order Comment: Speci men Type: BLOOD SPECIMENOrdering Facility: [facility] Address: [address] [place] [address] Performed By: #### 5 7021-8, 4537-7 ####[facility] [id number] [place] [address] [place] Comprehensive metabolic 2000 panelon 08-01-2024 Albumin [Mass/Vol] 4.0 g/dL Normal 3.9-4.9 [facility] Comment on above: Order Comment: Speci men Type: BLOOD SPECIMENOrdering Facility: [facility] Address: [address] [place] [address] Performed By: #### 2 4323-8 ####[facility] [id number] [place] [address] [place] ALP [Catalytic activity/Vol] 119 U/L Normal 34-123 [facility] Comment on above: Order Comment: Speci men Type: BLOOD SPECIMENOrdering Facility: [facility] Address: [address] [place] [address] [place] [address] Performed By: #### 2 4323-8 ####[facility] [id number] [place] [id number] [place] ALT [Catalytic activity/Vol] 12 U/L Normal 7-38 [facility] Comment on above: Order Comment: Speci men Type: BLOOD SPECIMENOrdering Facility: [facility] Address: [address] [place] [address] Performed By: #### 2 4323-8 ####[facility] [id number] [address] [address] [place] Anion gap [Moles/Vol] 10 mmol/L Normal 8-15 [facility] Comment on above: Order Comment: Speci men Type: BLOOD SPECIMENOrdering Facility: [facility] Address: [address] [place] [address] Performed By: #### 2 4323-8 ####[facility] [id number] [address] [address] [place] AST [Catalytic activity/Vol] 19 U/L Normal 13-35 [facility] Comment on above: Order Comment: Speci men Type: BLOOD SPECIMENOrdering Facility: [facility] Address: [address] [place] [address] Performed By: #### 2 4323-8 ####[facility] [id number] [address] [address] [place] Bilirubin [Mass/Vol] mg/dL Low 0.2-1.3 [facility] Comment on above: Order Comment: Speci men Type: BLOOD SPECIMENOrdering Facility: [facility] Address: [address] [place] [address] [place] [address] Performed By: #### 2 4323-8 ####[facility] [id number] [address] [address] [place] Calcium [Mass/Vol] 9.4 mg/dL Normal 8.5-10.2 [facility] Comment on above: Order Comment: Speci men Type: BLOOD SPECIMENOrdering Facility: [facility] Address: [address] [place], [place] [address] [address] Performed By: #### 2 4323-8 ####[facility] [id number] [address] [address] [place] Chloride [Moles/Vol] 105 mmol/L Normal 98-107 [facility] Comment on above: Order Comment: Demarcus dye Type: BLOOD SPECIMENOrdering Facility: [facility] Address: [address] [place] [address] Performed By: #### 2 4323-8 ####[facility] [id number] [place] [address] [place] CO2 [Moles/Vol] 26 mmol/L Normal 22-30 [facility] Comment on above: Order Comment: Speci men Type: BLOOD SPECIMENOrdering Facility: [facility] Address: [address] [place] [address] Performed By: #### 2 4323-8 ####[facility] [id number] [address] STATES OF [facility] Creatinine [Mass/Vol] 0.70 mg/dL Normal 0.58-0.96 [facility] Comment on above: Order Comment: Demarcus men Type: BLOOD SPECIMENOrdering Facility: [facility] Address: [address] [place] [address] Performed By: #### 2 4323-8 ####[facility] [id number] [address] Creatinine and Glomerular filtration rate.predicted panel (S/P/Bld) 91 mL/min/1.73m??? Normal >=60 [facility] Comment on above: Order Comment: Speci men Type: BLOOD SPECIMENOrdering Facility: [facility] Address: [address] [place] [address] Result Comment: July mated Glomerular Filtration Rate [...] reflect actual GFR. Performed By: #### 2 4323-8 ####[facility]IA [id number] [address] [address] [place] Glucose [Mass/Vol] 82 mg/dL Normal 74-99 [facility] Comment on above: Order Comment: Speci men Type: BLOOD SPECIMENOrdering Facility: [facility] Address: [address] [place] [address] Result Comment: The [place] [employer] (ADA) provides guidance for cutoff [...] Standards of Medical Care in Diabetes 2016, [place] [employer]. Diabetes Care. 2016.39(Suppl 1). Performed By: #### 2 4323-8 ####[facility]IA [id number] [place] [id number] [place] Potassium [Moles/Vol] 4.6 mmol/L Normal 3.7-5.1 [facility] Comment on above: Order Comment: Speci men Type: BLOOD SPECIMENOrdering Facility: [facility] Address: [address] [place] [address] Performed By: #### 2 4323-8 ####[facility]IA [id number] [address] [address] [place] Protein [Mass/Vol] 6.3 g/dL Normal 6.3-8.0 [facility] Comment on above: Order Comment: Speci men Type: BLOOD SPECIMENOrdering Facility: [facility] Address: [address] [place] [address] Performed By: #### 2 4323-8 ####[facility] [id number] [place] [address] [place] Sodium [Moles/Vol] 141 mmol/L Normal 136-144 [facility] Comment on above: Order Comment: Speci men Type: BLOOD SPECIMENOrdering Facility: [facility] Address: [address] [place] [address] Performed By: #### 2 4323-8 ####[facility] [id number] [place] [id number] [place] Urea nitrogen [Mass/Vol] 23 mg/dL High 7-21 [facility] Comment on above: Order Comment: Speci men Type: BLOOD SPECIMENOrdering Facility: [facility] Address: [address] [place] [address] Performed By: #### 2 4323-8 ####[facility] [id number] [place] [address] [place] ESR Westergren method (Bld) [Velocity]on 08-01-2024 ESR (Bld) [Velocity] 15 mm/h Normal 0-20 [facility] Comment on above: Order Comment: Speci men Type: BLOOD SPECIMENOrdering Facility: [facility] Address: [address] [place] [address] Performed By: #### 5 7021-8, 4537-7 ####[facility] [id number] [place] [id number] [place] Basic metabolic 2000 panelon 07-25-2024 Anion gap [Moles/Vol] 10 mmol/L Normal 8-15 [facility] Comment on above: Order Comment: Speci men Type: BLOOD SPECIMENOrdering Facility: [facility] Address: [address] [place] [address] Performed By: #### 2 4325-3, 98641-0 ####[facility] [id number] [address] [address] [place] Calcium [Mass/Vol] 10.1 mg/dL Normal 8.5-10.2 [facility] Comment on above: Order Comment: Speci men Type: BLOOD SPECIMENOrdering Facility: [facility] Address: [address] [place] [address] Performed By: #### 2 4325-3, 62528-3 ####[facility] [id number] [address] [address] [place] Chloride [Moles/Vol] 104 mmol/L Normal 98-107 [facility] Comment on above: Order Comment: Speci men Type: BLOOD SPECIMENOrdering Facility: [facility] Address: [address] [place] [address] Performed By: #### 2 432-3, 47967-2 ####[facility] [id number] [place] [id number] [place] CO2 [Moles/Vol] 25 mmol/L Normal 22-30 [facility] Comment on above: Order Comment: Speci men Type: BLOOD SPECIMENOrdering Facility: [facility] Address: [address] [place] [address] Performed By: #### 2 4325-3, 79916-5 ####[facility] [id number] [place] [id number] [place] Creatinine [Mass/Vol] 0.79 mg/dL Normal 0.58-0.96 [facility] Comment on above: Order Comment: Speci men Type: BLOOD SPECIMENOrdering Facility: [facility] Address: [address] [place] [address] Performed By: #### 2 4325-3, 59586-0 ####[facility] [id number] [address] [address] [place] Creatinine and Glomerular filtration rate.predicted panel (S/P/Bld) 79 mL/min/1.73m??? Normal >=60 [facility] Comment on above: Order Comment: Demarcus dye Type: BLOOD SPECIMENOrdering Facility: [facility] Address: [address] [place] [address] Result Comment: July mated Glomerular Filtration Rate [...] reflect actual GFR. Performed By: #### 2 4325-3, 22854-0 ####[facility] LABIA [id number] [address] [address] [place] Glucose [Mass/Vol] 117 mg/dL High 74-99 [facility] Comment on above: Order Comment: Demarcus dye Type: BLOOD SPECIMENOrdering Facility: [facility] Address: [address] [place] [address] Result Comment: The [place] [employer] (ADA) provides guidance for cutoff [...] Standards of Medical Care in Diabetes 2016, [place] [employer]. Diabetes Care. 2016.39(Suppl 1). Performed By: #### 2 4325-3, 86985-6 ####[facility]IA [id number] [address] [address] [place] Potassium [Moles/Vol] 4.8 mmol/L Normal 3.7-5.1 [facility] Comment on above: Order Comment: Speci men Type: BLOOD SPECIMENOrdering Facility: [facility] Address: [address] [place] [address] Performed By: #### 2 4325-3, 27376-2 ####[facility] [id number] [place] [address] [place] Sodium [Moles/Vol] 139 mmol/L Normal 136-144 [facility] Comment on above: Order Comment: Speci men Type: BLOOD SPECIMENOrdering Facility: [facility] Address: [address] [place] [address] Performed By: #### 2 4325-3, 29795-4 ####[facility] [id number] [place] [address] [place] Urea nitrogen [Mass/Vol] 26 mg/dL High 7- [facility] Comment on above: Order Comment: Speci men Type: BLOOD SPECIMENOrdering Facility: [facility] Address: [address] [place] [address] Performed By: #### 2 4325-3, 08474-0 ####[facility] [id number] [place] [address] [place] CBC W Auto Differential pane l (Bld)on 07-25-2024 Basophils (Bld) [#/Vol] 0.06 10*3/uL Normal <0.11 [facility] Comment on above: Order Comment: Speci men Type: BLOOD SPECIMENOrdering Facility: [facility] Address: [address] [place] [address] Performed By: #### 4 537-7, 76529-0 ####[facility] [id number] [address] [place] Basophils/100 WBC (Bld) 0.7 % Normal [facility] Comment on above: Order Comment: Speci men Type: BLOOD SPECIMENOrdering Facility: [facility] Address: [address] [place] [address] Performed By: #### 4 537-7, 85178-9 ####[facility] [id number] [address] [place] Differential cell count method Nom (Bld) Auto Normal [facility] Comment on above: Order Comment: Speci men Type: BLOOD SPECIMENOrdering Facility: [facility] Address: [address] [place] [address] Performed By: #### 4 537-7, 05462-9 ####[facility]CL[facility] [id number] [place] [address] [place] Eosinophils (Bld) [#/Vol] 0.05 10*3/uL Normal <0.46 [facility] Comment on above: Order Comment: Speci men Type: BLOOD SPECIMENOrdering Facility: [facility] Address: [address] [place] [address] Performed By: #### 4 537-7, 99479-5 ####[facility] LABIA [id number] [address] [place] Eosinophils/100 WBC (Bld) 0.6 % Normal [facility] Comment on above: Order Comment: Speci men Type: BLOOD SPECIMENOrdering Facility: [facility] Address: [address] [place] [address] Performed By: #### 4 537-7, 60346-4 ####[facility] LABIA [id number] [place] [id number] [place] Erythrocyte distribution width (RBC) [Ratio] 14.6 % Normal 11.5-15.0 [facility] Comment on above: Order Comment: Speci men Type: BLOOD SPECIMENOrdering Facility: [facility] Address: [address] [place] [address] Performed By: #### 4 537-7, 89807-7 ####[facility]CLIA [id number] [place] [id number] [place] Hematocrit (Bld) [Volume fraction] 32.6 % Low 36.0-46.0 [facility] Comment on above: Order Comment: Speci men Type: BLOOD SPECIMENOrdering Facility: [facility] Address: [address] [place] [address] Performed By: #### 4 537-7, 84086-6 ####[facility]CLIA [id number] [place] [id number] [place] Hemoglobin (Bld) [Mass/Vol] 10.1 g/dL Low 11.5-15.5 [facility] Comment on above: Order Comment: Speci men Type: BLOOD SPECIMENOrdering Facility: [facility] Address: [address] [place] [address] Performed By: #### 4 537-7, 43838-3 ####[facility]CLIA [id number] [place] [id number] [place] Immature granulocytes (Bld) [#/Vol] 0.03 10*3/uL Normal <0.10 [facility] Comment on above: Order Comment: Speci men Type: BLOOD SPECIMENOrdering Facility: [facility] Address: [address] [place] [address] Performed By: #### 4 537-7, 61741-2 ####[facility]CLIA [id number] [place] [id number] [place] Immature granulocytes/100 WBC (Bld) 0.4 % Normal [facility] Comment on above: Order Comment: Speci men Type: BLOOD SPECIMENOrdering Facility: [facility] Address: [address] [place] [address] Performed By: #### 4 537-7, 19253-0 ####[facility]CLIA [id number] [place] [address] [place] Lymphocytes (Bld) [#/Vol] 1.09 10*3/uL Normal 1.00-4.00 [facility] Comment on above: Order Comment: Speci men Type: BLOOD SPECIMENOrdering Facility: [facility] Address: [address] [place] [address] Performed By: #### 4 537-7, 82427-8 ####[facility] LABIA [id number] [address] [place] Lymphocytes/100 WBC (Bld) 13.1 % Normal [facility] Comment on above: Order Comment: Speci men Type: BLOOD SPECIMENOrdering Facility: [facility] Address: [address] [place] [address] Performed By: #### 4 537-7, 56746-1 ####[facility] LABIA [id number] [address] [place] MCH (RBC) [Entitic mass] 29.7 pg Normal 26.0-34.0 [facility] Comment on above: Order Comment: Speci men Type: BLOOD SPECIMENOrdering Facility: [facility] Address: [address] [place] [address] Performed By: #### 4 537-7, 73458-9 ####[facility] LABIA [id number] [place] [id number] [place] MCHC (RBC) [Mass/Vol] 31.0 g/dL Normal 30.5-36.0 [facility] Comment on above: Order Comment: Speci men Type: BLOOD SPECIMENOrdering Facility: [facility] Address: [address] [place] [address] Performed By: #### 4 537-7, 32409-6 ####[facility] LABIA [id number] [place] [id number] [place] MCV (RBC) [Entitic vol] 95.9 fL Normal 80.0-100.0 [facility] Comment on above: Order Comment: Speci men Type: BLOOD SPECIMENOrdering Facility: [facility] Address: [address] [place], [place] [address] Performed By: #### 4 537-7, 71069-6 ####[facility]CLIA [id number] [place] [id number] [place] Monocytes (Bld) [#/Vol] 0.18 10*3/uL Normal <0.87 [facility] Comment on above: Order Comment: Speci men Type: BLOOD SPECIMENOrdering Facility: [facility] Address: [address] [place] [address] Performed By: #### 4 537-7, 24624-8 ####[facility]CLIA [id number] [place] [id number] [place] Monocytes/100 WBC (Bld) 2.2 % Normal [facility] Comment on above: Order Comment: Speci men Type: BLOOD SPECIMENOrdering Facility: [facility] Address: [address] [place] [address] Performed By: #### 4 537-7, 60105-9 ####[facility]CLIA [id number] [place] [id number] [place] Neutrophils (Bld) [#/Vol] 6.94 10*3/uL Normal 1.45-7.50 [facility] Comment on above: Order Comment: Speci men Type: BLOOD SPECIMENOrdering Facility: [facility] Address: [address] [place] [address] Performed By: #### 4 537-7, 04577-4 ####[facility]CLIA [id number] [place] [id number] [place] Neutrophils/100 WBC (Bld) 83.0 % Normal [facility] Comment on above: Order Comment: Speci men Type: BLOOD SPECIMENOrdering Facility: [facility] Address: [address] [place] [address] Performed By: #### 4 537-7, 03483-0 ####[facility]CLIA [id number] [place] [id number] [place] Nucleated RBC (Bld) [#/Vol] 10*3/uL Normal <0.01 [facility] Comment on above: Order Comment: Speci men Type: BLOOD SPECIMENOrdering Facility: [facility] Address: [address] [place] [address] Performed By: #### 4 537-7, 19552-3 ####[facility]CLIA [id number] [place] [address] [place] Nucleated RBC/100 WBC (Bld) [Ratio] 0.0 /100 WBC Normal [facility] Comment on above: Order Comment: Speci men Type: BLOOD SPECIMENOrdering Facility: [facility] Address: [address] [place] [address] Performed By: #### 4 537-7, 93455-2 ####[facility] LABIA [id number] [place] [address] [place] Platelet mean volume (Bld) [Entitic vol] 10.7 fL Normal 9.0-12.7 [facility] Comment on above: Order Comment: Speci men Type: BLOOD SPECIMENOrdering Facility: [facility] Address: [address] [place] [address] Performed By: #### 4 537-7, 96941-1 ####[facility]CLIA [id number] [place] [id number] [place] Platelets (Bld) [#/Vol] 310 10*3/uL Normal 150-400 [facility] Comment on above: Order Comment: Speci men Type: BLOOD SPECIMENOrdering Facility: [facility] Address: [address] [place] [address] Performed By: #### 4 537-7, 46851-2 ####[facility] [id number] [place] [address] [place] RBC (Bld) [#/Vol] 3.40 10*6/uL Low 3.90-5.20 [facility] Comment on above: Order Comment: Speci men Type: BLOOD SPECIMENOrdering Facility: [facility] Address: [address] [place] [address] Performed By: #### 4 537-7, 81689-8 ####[facility] [id number] [place] [address] [place] WBC (Bld) [#/Vol] 8.35 10*3/uL Normal 3.70-11.00 [facility] Comment on above: Order Comment: Speci men Type: BLOOD SPECIMENOrdering Facility: [facility] Address: [address] [place] [address] Performed By: #### 4 537-7, 47571-4 ####[facility] [id number] [place] [address] [place] ESR Westergren method (Bld) [Velocity]on 07-25-2024 ESR (Bld) [Velocity] 27 mm/h High 0-20 [facility] Comment on above: Order Comment: Speci men Type: BLOOD SPECIMENOrdering Facility: [facility] Address: [address] [place] [address] Performed By: #### 4 537-7, 21908-6 ####[facility] [id number] [place] [id number] [place] Hepatic function 2000 panelo n 07-25-2024 Albumin [Mass/Vol] 4.2 g/dL Normal 3.9-4.9 [facility] Comment on above: Order Comment: Speci men Type: BLOOD SPECIMENOrdering Facility: [facility] Address: [address] [place], [place] [address] [address] Performed By: #### 2 4325-3, 69837-2 ####[facility]CL[facility] [id number] [facility] [address] [address] [place] ALP [Catalytic activity/Vol] 134 U/L High 34-123 [facility] Comment on above: Order Comment: Speci men Type: BLOOD SPECIMENOrdering Facility: [facility] Address: [address] [place], [place] [address] [address] Performed By: #### 2 5-3, 56953-1 ####[facility]CL[facility] [id number] [place] [address] [place] ALT [Catalytic activity/Vol] 10 U/L Normal 7-38 [facility] Comment on above: Order Comment: Speci men Type: BLOOD SPECIMENOrdering Facility: [facility] Address: [address] [place], [place] [address] [address] Performed By: #### 2 4324-3, 85140-3 ####[facility]CL[facility] [id number] [place] [address] [place] AST [Catalytic activity/Vol] 15 U/L Normal 13-35 [facility] Comment on above: Order Comment: Speci men Type: BLOOD SPECIMENOrdering Facility: [facility] Address: [address] [place], [place] [address] [address] Performed By: #### 2 5-3, 32849-4 ####[facility]CLIA [id number] [address] [address] [place] Bilirubin [Mass/Vol] mg/dL Low 0.2-1.3 [facility] Comment on above: Order Comment: Speci men Type: BLOOD SPECIMENOrdering Facility: [facility] Address: [address] [place] [address] [address] Performed By: #### 2 4325-3, 59359-8 ####[facility] LABCLIA [id number] [place] [id number] [place] Bilirubin.conjugated [Mass/Vol] 0.1 mg/dL Normal <0.3 [facility] Comment on above: Order Comment: Speci men Type: BLOOD SPECIMENOrdering Facility: [facility] Address: [address] [place] [address] [place] [address] Performed By: #### 2 432-3, 05557-2 ####[facility] LABCLIA [id number] [place] [address] [place] Protein [Mass/Vol] 6.9 g/dL Normal 6.3-8.0 [facility] Comment on above: Order Comment: Speci men Type: BLOOD SPECIMENOrdering Facility: [facility] Address: [address] [place], [place] [address] [address] Performed By: #### 2 4324-3, 73675-3 ####[facility] LABIA [id number] [place] [id number] [place] Basic metabolic 2000 panelon 07-18-2024 Anion gap [Moles/Vol] 12 mmol/L Normal 8-15 [facility] Comment on above: Order Comment: Speci men Type: BLOOD SPECIMENOrdering Facility: [facility] Address: [address] [place] [address] [place] [address] Performed By: #### 2 4320-2, 01385-2 ####[facility] LABIA [id number] [address] [address] [place] Calcium [Mass/Vol] 10.0 mg/dL Normal 8.5-10.2 [facility] Comment on above: Order Comment: Speci men Type: BLOOD SPECIMENOrdering Facility: [facility] Address: [address] [place] [address] [place] [address] Performed By: #### 2 4320-2, 58958-7 ####[facility] LABCLIA [id number] [address] [address] [place] Chloride [Moles/Vol] 103 mmol/L Normal 98-107 [facility] Comment on above: Order Comment: Speci men Type: BLOOD SPECIMENOrdering Facility: [facility] Address: [address] [place] [address] Performed By: #### 2 432-2, 68235-7 ####[facility] LABCLIA [id number] [address] [address] [place] CO2 [Moles/Vol] 25 mmol/L Normal 22-30 [facility] Comment on above: Order Comment: Speci men Type: BLOOD SPECIMENOrdering Facility: [facility] Address: [address] [place] [address] Performed By: #### 2 43205-05, 54370-9 ####[facility] LABCLIA [id number] [place] [id number] [place] Creatinine [Mass/Vol] 0.77 mg/dL Normal 0.58-0.96 [facility] Comment on above: Order Comment: Speci men Type: BLOOD SPECIMENOrdering Facility: [facility] Address: [address] [place] [address] Performed By: #### 2 4322, 20615-5 ####[facility] LABIA [id number] [place] [id number] [place] [facility] Creatinine and Glomerular filtration rate.predicted panel (S/P/Bld) 82 mL/min/1.73m??? Normal >=60 [facility] Comment on above: Order Comment: Speci men Type: BLOOD SPECIMENOrdering Facility: [facility] Address: [address] [place] [address] Result Comment: July mated Glomerular Filtration Rate [...] reflect actual GFR. Performed By: #### 2 4321-2, 97909-3 ####[facility] LABCLIA [id number] [facility]ITALThe [employer] [facility]B-[employer] [address] [address] [place] Glucose [Mass/Vol] 131 mg/dL High 74-99 [facility] Comment on above: Order Comment: Demarcus dye Type: BLOOD SPECIMENOrdering Facility: [facility] Address: [address] [place] [address] Result Comment: The [place] Diabetes [employer] (ADA) provides guidance for cutoff [...] Standards of Medical Care in Diabetes 2016, [place] [employer]. Diabetes Care. 2016.39(Suppl 1). Performed By: #### 2 4320-, 00661-7 ####[facility] LABIA [id number] [facility]ITAL[facility] [employer] [facility] [employer] [address] [address] [place] Potassium [Moles/Vol] 4.4 mmol/L Normal 3.7-5.1 [facility] Comment on above: Order Comment: Demarcus dye Type: BLOOD SPECIMENOrdering Facility: [facility] Address: [address] [place] [address] Performed By: #### 2 432-2, 92274-7 ####[facility] LABIA [id number] [facility] [address] [address] [place] Sodium [Moles/Vol] 140 mmol/L Normal 136-144 [facility] Comment on above: Order Comment: Speci men Type: BLOOD SPECIMENOrdering Facility: [facility] Address: [address] [place] [address] Performed By: #### 2 4321-2, 32172-6 ####[facility] LABCLIA [id number] [place] [address] [place] Urea nitrogen [Mass/Vol] 27 mg/dL High 7-21 [facility] Comment on above: Order Comment: Speci men Type: BLOOD SPECIMENOrdering Facility: [facility] Address: [address] [place] [address] Performed By: #### 2 4321-2, 61111-1 ####[facility] LABCLIA [id number] [place] [address] [place] CBC W Auto Differential pane l (Bld)on 07-18-2024 Basophils (Bld) [#/Vol] 0.09 10*3/uL Normal <0.11 [facility] Comment on above: Order Comment: Speci men Type: BLOOD SPECIMENOrdering Facility: [facility] Address: [address] [place] [address] Performed By: #### 5 7021-8, 7 ####[facility] LABCLIA [id number] [place] [address] [place] Basophils/100 WBC (Bld) 1.3 % Normal [facility] Comment on above: Order Comment: Speci men Type: BLOOD SPECIMENOrdering Facility: [facility] Address: [address] [place] [address] Performed By: #### 5 7021-8, 7 ####[facility] LABCLIA [id number] [place] [id number] [place] Differential cell count method Nom (Bld) Auto Normal [facility] Comment on above: Order Comment: Speci men Type: BLOOD SPECIMENOrdering Facility: [facility] Address: [address] [place] [address] Performed By: #### 5 7021-8, 4536-7 ####[facility] LABCLIA [id number] [place] [id number] [place] Eosinophils (Bld) [#/Vol] 0.29 10*3/uL Normal <0.46 [facility] Comment on above: Order Comment: Speci men Type: BLOOD SPECIMENOrdering Facility: [facility] Address: [address] [place] [address] Performed By: #### 5 7021-8, 7 ####[facility] LABCLIA [id number] [address] [place] Eosinophils/100 WBC (Bld) 4.3 % Normal [facility] Comment on above: Order Comment: Speci men Type: BLOOD SPECIMENOrdering Facility: [facility] Address: [address] [place] [address] Performed By: #### 5 7021-8, 7 ####[facility] LABCLIA [id number] [address] [place] Erythrocyte distribution width (RBC) [Ratio] 15.7 % High 11.5-15.0 [facility] Comment on above: Order Comment: Speci men Type: BLOOD SPECIMENOrdering Facility: [facility] Address: [address] [place] [address] Performed By: #### 5 7021-8, 7 ####[facility] LABCLIA [id number] [place] [id number] [place] Hematocrit (Bld) [Volume fraction] 29.5 % Low 36.0-46.0 [facility] Comment on above: Order Comment: Speci men Type: BLOOD SPECIMENOrdering Facility: [facility] Address: [address] [place] [address] Performed By: #### 5 7021-8, 7-7 ####[facility] LABCLIA [id number] [address] [address] [place] Hemoglobin (Bld) [Mass/Vol] 9.4 g/dL Low 11.5-15.5 [facility] Comment on above: Order Comment: Speci men Type: BLOOD SPECIMENOrdering Facility: [facility] Address: [address] [place] [address] Performed By: #### 5 7021-8, 4536-7 ####[facility] LABCLIA [id number] [place] [id number] [place] Immature granulocytes (Bld) [#/Vol] 10*3/uL Normal <0.10 [facility] Comment on above: Order Comment: Speci men Type: BLOOD SPECIMENOrdering Facility: [facility] Address: [address] [place] [address] Performed By: #### 5 7021-8, 4536-7 ####[facility] LABIA [id number] [place] [id number] [place] Immature granulocytes/100 WBC (Bld) 0.3 % Normal [facility] Comment on above: Order Comment: Speci men Type: BLOOD SPECIMENOrdering Facility: [facility] Address: [address] [place] [address] Performed By: #### 5 7021-8, 4536-7 ####[facility] LABIA [id number] [address] [address] [place] Lymphocytes (Bld) [#/Vol] 1.95 10*3/uL Normal 1.00-4.00 [facility] Comment on above: Order Comment: Speci men Type: BLOOD SPECIMENOrdering Facility: [facility] Address: [address] [place] [address] Performed By: #### 5 7021-8, 7 ####[facility] LABCLIA [id number] [place] [id number] [place] Lymphocytes/100 WBC (Bld) 28.8 % Normal [facility] Comment on above: Order Comment: Speci men Type: BLOOD SPECIMENOrdering Facility: [facility] Address: [address] [place] [address] Performed By: #### 5 7021-8, 7 ####[facility] LABCLIA [id number] [place] [id number] [place] MCH (RBC) [Entitic mass] 30.4 pg Normal 26.0-34.0 [facility] Comment on above: Order Comment: Speci men Type: BLOOD SPECIMENOrdering Facility: [facility] Address: [address] [place] [address] Performed By: #### 5 7021-8, 4536-11 ####[facility] LABIA [id number] [place] [id number] [place] MCHC (RBC) [Mass/Vol] 31.9 g/dL Normal 30.5-36.0 [facility] Comment on above: Order Comment: Speci men Type: BLOOD SPECIMENOrdering Facility: [facility] Address: [address] [place] [address] Performed By: #### 5 7021-8, 7 ####[facility] LABIA [id number] [place] [id number] [place] MCV (RBC) [Entitic vol] 95.5 fL Normal 80.0-100.0 [facility] Comment on above: Order Comment: Speci men Type: BLOOD SPECIMENOrdering Facility: [facility] Address: [address] [place] [address] Performed By: #### 5 7021-8, 4536-11 ####[facility] LABCLIA [id number] [place] [address] [place] Monocytes (Bld) [#/Vol] 0.47 10*3/uL Normal <0.87 [facility] Comment on above: Order Comment: Speci men Type: BLOOD SPECIMENOrdering Facility: [facility] Address: [address] [place] [address] Performed By: #### 5 7021-8, 7 ####[facility] LABCLIA [id number] [place] [address] [place] Monocytes/100 WBC (Bld) 6.9 % Normal [facility] Comment on above: Order Comment: Speci men Type: BLOOD SPECIMENOrdering Facility: [facility] Address: [address] [place] [address] Performed By: #### 5 7021-8, 7 ####[facility] LABCLIA [id number] [place] [address] [place] Neutrophils (Bld) [#/Vol] 3.96 10*3/uL Normal 1.45-7.50 [facility] Comment on above: Order Comment: Speci men Type: BLOOD SPECIMENOrdering Facility: [facility] Address: [address] [place] [address] Performed By: #### 5 7021-8, 7 ####[facility] LABCLIA [id number] [place] [id number] [place] Neutrophils/100 WBC (Bld) 58.4 % Normal [facility] Comment on above: Order Comment: Speci men Type: BLOOD SPECIMENOrdering Facility: [facility] Address: [address] [place] [address] Performed By: #### 5 7021-8, 4536-7 ####[facility] LABCLIA [id number] [place] [id number] [place] Nucleated RBC (Bld) [#/Vol] 10*3/uL Normal <0.01 [facility] Comment on above: Order Comment: Speci men Type: BLOOD SPECIMENOrdering Facility: [facility] Address: [address] [place] [address] Performed By: #### 5 7021-8, 7-7 ####[facility] LABCLIA [id number] [facility] [place] [address] [place] Nucleated RBC/100 WBC (Bld) [Ratio] 0.0 /100 WBC Normal [facility] Comment on above: Order Comment: Speci men Type: BLOOD SPECIMENOrdering Facility: [facility] Address: [address] [place] [address] Performed By: #### 5 7021-8, 4536-7 ####[facility] LABCLIA [id number] [place] [address] [place] Platelet mean volume (Bld) [Entitic vol] 10.1 fL Normal 9.0-12.7 [facility] Comment on above: Order Comment: Speci men Type: BLOOD SPECIMENOrdering Facility: [facility] Address: [address] [place] [address] Performed By: #### 5 7021-8, 4536-7 ####[facility] LABCLIA [id number] [place] [address] [place] Platelets (Bld) [#/Vol] 326 10*3/uL Normal 150-400 [facility] Comment on above: Order Comment: Speci men Type: BLOOD SPECIMENOrdering Facility: [facility] Address: [address] [place] [address] Performed By: #### 5 7021-8, 4536-7 ####[facility] LABCLIA [id number] [facility] [address] [address] [place] RBC (Bld) [#/Vol] 3.09 10*6/uL Low 3.90-5.20 [facility] Comment on above: Order Comment: Speci men Type: BLOOD SPECIMENOrdering Facility: [facility] Address: [address] [place] [address] [place] [address] Performed By: #### 5 7021-8, 4537-7 ####[facility] LABCLIA [id number] [address] [address] [place] WBC (Bld) [#/Vol] 6.78 10*3/uL Normal 3.70-11.00 [facility] Comment on above: Order Comment: Speci men Type: BLOOD SPECIMENOrdering Facility: [facility] Address: [address] [place] [address] Performed By: #### 5 7021-8, 453-7 ####[facility] LABCLIA [id number] [place] [id number] [place] ESR Westergren method (Bld) [Velocity]on 07-18-2024 ESR (Bld) [Velocity] 35 mm/h High 0-20 [facility] Comment on above: Order Comment: Speci men Type: BLOOD SPECIMENOrdering Facility: [facility] Address: [address] [place] [address] Performed By: #### 5 7021-8, 7-7 ####[facility] LABIA [id number] [place] [id number] [place] Hepatic function 2000 panelo n 07-18-2024 Albumin [Mass/Vol] 4.0 g/dL Normal 3.9-4.9 [facility] Comment on above: Order Comment: Speci men Type: BLOOD SPECIMENOrdering Facility: [facility] Address: [address] [place] [address] Performed By: #### 2 4321-2, 34840-9 ####[facility] LABIA [id number] [place] [id number] [place] ALP [Catalytic activity/Vol] 138 U/L High 34-123 [facility] Comment on above: Order Comment: Speci men Type: BLOOD SPECIMENOrdering Facility: [facility] Address: [address] [place] [address] Performed By: #### 2 4320-2, 72464-3 ####[facility] LABCLIA [id number] [facility] [place] [id number] [place] ALT [Catalytic activity/Vol] 13 U/L Normal 7-38 [facility] Comment on above: Order Comment: Speci men Type: BLOOD SPECIMENOrdering Facility: [facility] Address: [address] [place] [address] Performed By: #### 2 4320-2, 58724-3 ####[facility] LABCLIA [id number] [address] [place] AST [Catalytic activity/Vol] 20 U/L Normal 13-35 [facility] Comment on above: Order Comment: Speci men Type: BLOOD SPECIMENOrdering Facility: [facility] Address: [address] [place] [address] Performed By: #### 2 2, 23047-4 ####[facility] LABCLIA [id number] [place] [address] [place] Bilirubin [Mass/Vol] mg/dL Low 0.2-1.3 [facility] Comment on above: Order Comment: Speci men Type: BLOOD SPECIMENOrdering Facility: [facility] Address: [address] [place], [place] [address] [address] Performed By: #### 2 4320-2, 93230-4 ####[facility] LABCLIA [id number] [place] [id number] [place] Bilirubin.conjugated [Mass/Vol] 0.1 mg/dL Normal <0.3 [facility] Comment on above: Order Comment: Speci men Type: BLOOD SPECIMENOrdering Facility: [facility] Address: [address] [place] [address] Performed By: #### 2 4321-2, 78000-2 ####[facility] LABIA [id number] [place] [id number] [place] Protein [Mass/Vol] 6.4 g/dL Normal 6.3-8.0 [facility] Comment on above: Order Comment: Speci men Type: BLOOD SPECIMENOrdering Facility: [facility] Address: [address] [place] [address] Performed By: #### 2 4321-2, 04539-4 ####[facility] LABIA [id number] [place] [id number] [place] Basic metabolic 2000 panelon 07-11-2024 Anion gap [Moles/Vol] 9 mmol/L Normal 8-15 [facility] Comment on above: Order Comment: Speci men Type: BLOOD SPECIMENOrdering Facility: [facility] Address: [address] [place] [address] Performed By: #### 2 4321-2, 40880-8 ####[facility] LABIA [id number] [place] [address] [place] Calcium [Mass/Vol] 9.6 mg/dL Normal 8.5-10.2 [facility] Comment on above: Order Comment: Speci men Type: BLOOD SPECIMENOrdering Facility: [facility] Address: [address] [place] [address] Performed By: #### 2 4321-2, 08689-9 ####[facility] LABIA [id number] [place] [id number] [place] Chloride [Moles/Vol] 103 mmol/L Normal 98-107 [facility] Comment on above: Order Comment: Speci men Type: BLOOD SPECIMENOrdering Facility: [facility] Address: [address] [place] [address] Performed By: #### 2 432-2, 99725-9 ####[facility] LABCLIA [id number] [address] [address] [place] CO2 [Moles/Vol] 26 mmol/L Normal 22-30 [facility] Comment on above: Order Comment: Speci men Type: BLOOD SPECIMENOrdering Facility: [facility] Address: [address] [place] [address] Performed By: #### 2 4320-2, 95585-5 ####[facility] LABCLIA [id number] [address] [address] [place] Creatinine [Mass/Vol] 0.77 mg/dL Normal 0.58-0.96 [facility] Comment on above: Order Comment: Speci men Type: BLOOD SPECIMENOrdering Facility: [facility] Address: [address] [place] [address] Performed By: #### 2 4320-2, 95697-2 ####[facility] LABCLIA [id number] [address] [address] [place] [facility] Creatinine and Glomerular filtration rate.predicted panel (S/P/Bld) 82 mL/min/1.73m??? Normal >=60 [facility] Comment on above: Order Comment: Speci men Type: BLOOD SPECIMENOrdering Facility: [facility] Address: [address] [place] [address] Result Comment: July mated Glomerular Filtration Rate [...] reflect actual GFR. Performed By: #### 2 432-2, 22387-1 ####[facility] LABCLIA [id number] [address] [address] [place] Glucose [Mass/Vol] 109 mg/dL High 74-99 [facility] Comment on above: Order Comment: Speci men Type: BLOOD SPECIMENOrdering Facility: [facility] Address: [address] [place] [address] Result Comment: The [place] Diabetes [employer] (ADA) provides guidance for cutoff [...] Standards of Medical Care in Diabetes 2016, [place] [employer]. Diabetes Care. 2016.39(Suppl 1). Performed By: #### 2 4321-, 35030-6 ####[facility] LABCLIA [id number] [place] [id number] [place] Potassium [Moles/Vol] 4.8 mmol/L Normal 3.7-5.1 [facility] Comment on above: Order Comment: Demarcus hardik Type: BLOOD SPECIMENOrdering Facility: [facility] Address: [address] [place] [address] Performed By: #### 2 432-, 03216-6 ####[facility] LABCLIA [id number] [place] [id number] [place] Sodium [Moles/Vol] 138 mmol/L Normal 136-144 [facility] Comment on above: Order Comment: Demarcus dye Type: BLOOD SPECIMENOrdering Facility: [facility] Address: [address] [place] [address] Performed By: #### 2 432-2, 74822-3 ####[facility] LABCLIA [id number] [address] [address] [place] Urea nitrogen [Mass/Vol] 25 mg/dL High 7-21 [facility] Comment on above: Order Comment: Speci hardik Type: BLOOD SPECIMENOrdering Facility: [facility] Address: [address] [place] [address] Performed By: #### 2 4321-2, 78744-6 ####[facility] LABCLIA [id number] [place] [id number] [facility] CBC panel Auto (Bld)on 07-11 Erythrocyte distribution width (RBC) [Ratio] 16.2 % High 11.5-15.0 [facility] Comment on above: Order Comment: Demarcus hardik Type: BLOOD SPECIMENOrdering Facility: [facility] Address: [address] [place] [address] Performed By: #### 4 537-7, 87372-6 ####[facility] LABCLIA [id number] [address] [place] Hematocrit (Bld) [Volume fraction] 29.6 % Low 36.0-46.0 [facility] Comment on above: Order Comment: Demarcus hardik Type: BLOOD SPECIMENOrdering Facility: [facility] Address: [address] [place] [address] Performed By: #### 4 537-7, 20813-0 ####[facility] LABCLIA [id number] [place] [id number] [place] [facility] Hemoglobin (Bld) [Mass/Vol] 8.9 g/dL Low 11.5-15.5 [facility] Comment on above: Order Comment: Demarcus hardik Type: BLOOD SPECIMENOrdering Facility: [facility] Address: [address] [place] [address] Performed By: #### 4 537-7, 29451-7 ####[facility] LABCLIA [id number] [place] [id number] [place] [place] MCH (RBC) [Entitic mass] 30.2 pg Normal 26.0-34.0 [facility] Comment on above: Order Comment: Speci men Type: BLOOD SPECIMENOrdering Facility: [facility] Address: [address] [place] [address] Performed By: #### 4 537-7, 71925-8 ####[facility] LABCLIA [id number] [place] [id number] [place] MCHC (RBC) [Mass/Vol] 30.1 g/dL Low 30.5-36.0 [facility] Comment on above: Order Comment: Speci men Type: BLOOD SPECIMENOrdering Facility: [facility] Address: [address] [place] [address] Performed By: #### 4 537-7, 72906-2 ####[facility] LABCLIA [id number] [place] [id number] [place] MCV (RBC) [Entitic vol] 100.3 fL High 80.0-100.0 [facility] Comment on above: Order Comment: Speci men Type: BLOOD SPECIMENOrdering Facility: [facility] Address: [address] [place] [address] Performed By: #### 4 537-7, 62962-5 ####[facility] LABCLIA [id number] [place] [id number] [place] Nucleated RBC (Bld) [#/Vol] 10*3/uL Normal <0.01 [facility] Comment on above: Order Comment: Speci men Type: BLOOD SPECIMENOrdering Facility: [facility] Address: [address] [place] [address] Performed By: #### 4 537-7, 37129-8 ####[facility] LABCLIA [id number] [address] [address] [place] Platelet mean volume (Bld) [Entitic vol] 9.8 fL Normal 9.0-12.7 [facility] Comment on above: Order Comment: Speci men Type: BLOOD SPECIMENOrdering Facility: [facility] Address: [address] [place], [place] [address] Performed By: #### 4 537-7, 18344-0 ####[facility] LABCLIA [id number] [place] [id number] [place] Platelets (Bld) [#/Vol] 422 10*3/uL High 150-400 [facility] Comment on above: Order Comment: Speci men Type: BLOOD SPECIMENOrdering Facility: [facility] Address: [address] [place] [address] Performed By: #### 4 537-7, 51311-1 ####[facility] LABCLIA [id number] [place] [id number] [place] RBC (Bld) [#/Vol] 2.95 10*6/uL Low 3.90-5.20 [facility] Comment on above: Order Comment: Speci men Type: BLOOD SPECIMENOrdering Facility: [facility] Address: [address] [place] [address] Performed By: #### 4 537-7, 36963-1 ####[facility] LABCLIA [id number] [place] [id number] [place] WBC (Bld) [#/Vol] 7.54 10*3/uL Normal 3.70-11.00 [facility] Comment on above: Order Comment: Speci men Type: BLOOD SPECIMENOrdering Facility: [facility] Address: [address] [place] [address] Performed By: #### 4 537-7, 51663-1 ####[facility] LABCLIA [id number] [address] [address] [place] ESR Westergren method (Bld) [Velocity]on 07-11-2024 ESR (Bld) [Velocity] 49 mm/h High 0-20 [facility] Comment on above: Order Comment: Speci men Type: BLOOD SPECIMENOrdering Facility: [facility] Address: [address] [place] [address] Performed By: #### 4 537-7, 35836-3 ####[facility] LABCLIA [id number] [place] [id number] [place] Hepatic function 2000 panelo n 07-11-2024 Albumin [Mass/Vol] 3.8 g/dL Low 3.9-4.9 [facility] Comment on above: Order Comment: Speci men Type: BLOOD SPECIMENOrdering Facility: [facility] Address: [address] [place] [address] Performed By: #### 2 4321-2, 85314-6 ####[facility] LABCLIA [id number] [place] [address] [place] ALP [Catalytic activity/Vol] 140 U/L High 34-123 [facility] Comment on above: Order Comment: Speci men Type: BLOOD SPECIMENOrdering Facility: [facility] Address: [address] [place] [address] Performed By: #### 2 4321-2, 19276-1 ####[facility] LABCLIA [id number] [place] [id number] [place] ALT [Catalytic activity/Vol] 10 U/L Normal 7-38 [facility] Comment on above: Order Comment: Speci men Type: BLOOD SPECIMENOrdering Facility: [facility] Address: [address] [place] [address] Performed By: #### 2 4321-2, 23877-7 ####[facility] LABCLIA [id number] [address] [address] [place] AST [Catalytic activity/Vol] 18 U/L Normal 13-35 [facility] Comment on above: Order Comment: Speci men Type: BLOOD SPECIMENOrdering Facility: [facility] Address: [address] [place] [address] Performed By: #### 2 4320-2, 67003-8 ####[facility] LABCLIA [id number] [address] [address] [place] Bilirubin [Mass/Vol] 0.2 mg/dL Normal 0.2-1.3 [facility] Comment on above: Order Comment: Speci men Type: BLOOD SPECIMENOrdering Facility: [facility] Address: [address] [place] [address] Performed By: #### 2 432-2, 31110-4 ####[facility] LABCLIA [id number] [place] [address] [place] Bilirubin.conjugated [Mass/Vol] 0.1 mg/dL Normal <0.3 [facility] Comment on above: Order Comment: Speci men Type: BLOOD SPECIMENOrdering Facility: [facility] Address: [address] [place] [address] Performed By: #### 2 2, 41334-4 ####[facility] LABCLIA [id number] [place] [id number] [place] Protein [Mass/Vol] 6.3 g/dL Normal 6.3-8.0 [facility] Comment on above: Order Comment: Speci men Type: BLOOD SPECIMENOrdering Facility: [facility] Address: [address] [place] [address] Performed By: #### 2 4320-2, 24466-5 ####[facility] LABCLIA [id number] [address] [address] [place] Basic metabolic 2000 panelon 07-04-2024 Anion gap [Moles/Vol] 13 mmol/L Normal 8-15 [facility] Comment on above: Order Comment: Speci men Type: BLOOD SPECIMENOrdering Facility: [facility] Address: [address] [place] [address] [place] [address] Performed By: #### 2 5-3, 88045-7 ####[facility] LABCLIA [id number] [address] [address] [place] Calcium [Mass/Vol] 9.4 mg/dL Normal 8.5-10.2 [facility] Comment on above: Order Comment: Speci men Type: BLOOD SPECIMENOrdering Facility: [facility] Address: [address] [place] [address] [place] [address] Performed By: #### 2 4324-3, 38020-6 ####[facility] LABCLIA [id number] [place] [id number] [place] Chloride [Moles/Vol] 101 mmol/L Normal 98-107 [facility] Comment on above: Order Comment: Speci men Type: BLOOD SPECIMENOrdering Facility: [facility] Address: [address] [place] [address], [place] [address] Performed By: #### 2 4324-3, 56431-8 ####[facility] LABCLIA [id number] [place] [id number] [place] CO2 [Moles/Vol] 24 mmol/L Normal 22-30 [facility] Comment on above: Order Comment: Speci men Type: BLOOD SPECIMENOrdering Facility: [facility] Address: [address] [place] [address], [place] [address] Performed By: #### 2 4324-3, 73361-8 ####[facility] LABCLIA [id number] [address] [address] [place] Creatinine [Mass/Vol] 0.75 mg/dL Normal 0.58-0.96 [facility] Comment on above: Order Comment: Speci men Type: BLOOD SPECIMENOrdering Facility: [facility] Address: [address] [place] [address], [place] [address] Performed By: #### 2 4325-3, 86438-4 ####[facility] LABIA [id number] [place] [id number] [place] Creatinine and Glomerular filtration rate.predicted panel (S/P/Bld) 84 mL/min/1.73m??? Normal >=60 [facility] Comment on above: Order Comment: Demarcus dye Type: BLOOD SPECIMENOrdering Facility: [facility] Address: [address] [place] [address] Result Comment: July mated Glomerular Filtration Rate [...] reflect actual GFR. Performed By: #### 2 4325-3, 27869-5 ####[facility] LABIA [id number] [place] [id number] [place] Glucose [Mass/Vol] 124 mg/dL High 74-99 [facility] Comment on above: Order Comment: Demarcus dye Type: BLOOD SPECIMENOrdering Facility: [facility] Address: [address] [place] [address] Result Comment: The [place] Diabetes Association (ADA) provides guidance for cutoff [...] Standards of Medical Care in Diabetes 2016, [place] [employer]. Diabetes Care. 2016.39(Suppl 1). Performed By: #### 2 4325-3, 33234-7 ####[facility] LABCLIA [id number] [facility] [address] [address] [place] Potassium [Moles/Vol] 4.6 mmol/L Normal 3.7-5.1 [facility] Comment on above: Order Comment: Speci men Type: BLOOD SPECIMENOrdering Facility: [facility] Address: [address] [place] [address] Performed By: #### 2 4325-3, 25082-8 ####[facility] LABCLIA [id number] [facility] [address] [address] [place] Sodium [Moles/Vol] 138 mmol/L Normal 136-144 [facility] Comment on above: Order Comment: Speci men Type: BLOOD SPECIMENOrdering Facility: [facility] Address: [address] [place] [address] Performed By: #### 2 4325-3, 25194-7 ####[facility] LABCLIA [id number] [place] [id number] [place] Urea nitrogen [Mass/Vol] 18 mg/dL Normal 7-21 [facility] Comment on above: Order Comment: Speci men Type: BLOOD SPECIMENOrdering Facility: [facility] Address: [address] [place] [address] Performed By: #### 2 4325-3, 46827-1 ####[facility] LABCLIA [id number] [address] [address] [place] Hepatic function 2000 panelo n 07-04-2024 Albumin [Mass/Vol] 3.6 g/dL Low 3.9-4.9 [facility] Comment on above: Order Comment: Speci men Type: BLOOD SPECIMENOrdering Facility: [facility] Address: [address] [place] [address] Performed By: #### 2 4325-3, 48456-5 ####[facility] LABCLIA [id number] [facility] [address] [place] [address] [place] ALP [Catalytic activity/Vol] 108 U/L Normal 34-123 [facility] Comment on above: Order Comment: Speci men Type: BLOOD SPECIMENOrdering Facility: [facility] Address: [address] [place] [address] Performed By: #### 2 4325-3, 10737-7 ####[facility] LABCLIA [id number] [facility] [place] [address] [place] ALT [Catalytic activity/Vol] 8 U/L Normal 7-38 [facility] Comment on above: Order Comment: Speci men Type: BLOOD SPECIMENOrdering Facility: [facility] Address: [address] [place] [address] Performed By: #### 2 4325-3, 93712-2 ####[facility] LABCLIA [id number] [facility] [address] [place] AST [Catalytic activity/Vol] 17 U/L Normal 13-35 [facility] Comment on above: Order Comment: Speci men Type: BLOOD SPECIMENOrdering Facility: [facility] Address: [address] [place] [address] Performed By: #### 2 4325-3, 21597-8 ####[facility] LABCLIA [id number] [facility] [place] [address] [place] Bilirubin [Mass/Vol] 0.2 mg/dL Normal 0.2-1.3 [facility] Comment on above: Order Comment: Speci men Type: BLOOD SPECIMENOrdering Facility: [facility] Address: [address] [place] [address] Performed By: #### 2 4325-3, 34974-9 ####[facility] LABCLIA [id number] [facility] [place] [id number] [place] Bilirubin.conjugated [Mass/Vol] mg/dL Normal <0.3 [facility] Comment on above: Order Comment: Speci men Type: BLOOD SPECIMENOrdering Facility: [facility] Address: [address] [place] [address] Performed By: #### 2 4325-3, ####[facility] LABCLIA [id number] [address] [address] [place] Protein [Mass/Vol] 6.0 g/dL Low 6.3-8.0 [facility] Comment on above: Order Comment: Speci men Type: BLOOD SPECIMENOrdering Facility: [facility] Address: [address] [place] [address] Performed By: #### 2 4323, ####[facility] LABCLIA [id number] [address] [address] [place] Culture, Anaerobic Any Sourc maya 06-29-2024 CUAN UNK UNK collected in [place] - humeral membrane No growth in 5 days. Normal [facility] Comment on above: Performed By: #### P ERIK #### [facility] [address] [place], [place], [id number] CUAN UNK UNK collected in OR - glenoid membrane No growth in 5 days. [facility] Comment on above: Performed By: #### M 100.4001, M600.2000, M300.3000, M100.3000, M100.2000, M600.2200, M300.2000 ####[facility] [address] [place], [address] CUAN UNK UNK collected in OR - anterior bursa No growth in 5 days. [facility] Comment on above: Performed By: #### L 3410.9999 #### [facility] [address] 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 Discharge Instructions Diet Discharge Diet: No restrictions DC O2, CPAP, BIPAP needs Home O2 Discharge instructions: No Dressing / Incision Discharge Activity: May Not Drive (For 6 weeks while in sling.) Dressing / Incision Call your doctor if your incision/area has: Continuous Slow Oozing, Sudden Increased Bleeding, Increased Pain/ Swelling and Foul Smelling Discharge Call your doctor if you observe: Fever of 101 or Higher, Coldness, Increased Pain, Inability to urinate, Inability to have a bowel movement, Shortness of breath, Dizziness, Fainting spells, Chest pain, Increased palpitations (irregular heartbeat), Calf discomfort and Uncontrolled pain Change Dressing in: 1 day (May remove dressing on postop day 5 06/29/24.) Cleanse incision/area with: Soap Water (Gentle soap and water. No soaking or submerging for 6 weeks postoperatively.) Additional Dressing/Incision Instructions:: Continue ferrous sulfate managed chronically by primary care provider. Potential for constipation on the ferrous sulfate. Contact our office if having further constipation. Do not use any ointments, Neosporin, salves, alcohol pads over the incision for 6 weeks postoperatively. Do not submerge underwater for 6 weeks postoperatively. Continue with EVAN hose/elastic stockings for 2 weeks postoperatively. May remove at nighttime but needs to be placed back on the leg during the day. Do NOT use alcohol with narcotic pain medication. Do NOT make important decisions while taking narcotic medication. If you have problems with taking your medication (rash, itching, nausea, etc.) call the office at once. Follow Up Care Test Results: Test results from this visit will be discussed in further detail at your follow-up appointment, if applicable. Discharge Plan Admission Admit Date/Time: 06/24/24 15:04 Attending Provider: Dejan Ferrara Primary Care Provider: Krystin العراقي Consulting Providers: Audrey Healy; Zak Michaels; Jersey Irwin; Ron Shaikh Discharge Orders/Prescriptions Prescriptions: New ceftriaxone 2 gram recon soln 2 g IV DAILY 39 Days Rx Instructions: stop date 08/05/24. Dx: shoulder PJI. Weekly bmp, cbc, LFT, and esr. Fax to [phone]. Routine picc care per protocol. acetaminophen 500 mg Tablet 1,000 mg PO TID Qty: 0 0RF aspirin 81 mg capsule 81 mg PO BID 30 Days Qty: 0 0RF Rx Instructions: DVT prophylaxis. famotidine 20 mg Tablet 20 mg PO DAILY 30 Days Qty: 30 0RF ferrous sulfate [FeroSul] 325 mg (65 mg iron) Tablet 325 mg PO DAILY@1200 14 Days Qty: 14 0RF folic acid 1 mg Tablet 1 mg PO BREAKFAST 14 Days Qty: 14 0RF oxycodone 5 mg Tablet 5 - 10 mg PO Q4H PRN PRN (Reason: as needed for pain.) 7 Days Qty: 30 0RF sennosides-docusate sodium [Stimulant Laxative Plus] 8.6-50 mg Tablet 2 tab PO BID Qty: 0 0RF Rx Instructions: Take until first bowel movement and then as needed. Continued levothyroxine 25 mcg tablet 25 mcg PO DAILY morphine 15 mg tablet extended release 15 mg PO BID No Action acetaminophen 500 mg Tablet 1,000 mg PO Q8 PRN (Reason: pain) Referrals / Follow Up: Krystin العراقي MAID HOUSEKEEPER-C [Primary Care Provider] - Disposition Disposition (needs filled in before D/C Order can be placed): Home Health Service 06/28/24 1808 Kenyatta GUTIERREZ CC: MAID HOUSEKEEPER-C Krystin العراقي; Zak Michaels MD; Dr. Audrey Healy MD; Dr. Jersey Irwin MD; Dr. Ron Shaikh MD Signed Normal [facility] Automated blood erythrocyte countOrdered By: Isra Henry on 06-27-2024 RBC (Bld) [#/Vol] 2.74 10*6/uL Low 4.2-5.4 [facility] Comment on above: Performed By: #### L 100.0500 ####[facility] [address] [place], [address] Automated blood hematocrit ( percentage)Ordered By: Isra Henry on 06-27-2024 Hematocrit (Bld) [Volume fraction] 26.2 % Low 37-47 [facility] Comment on above: Performed By: #### L 100.0500 ####[facility] [id number] [place], [address] CBC-Complete Blood Cnt No Di ffon 06-27-2024 RDW SD 50.7 fl High 35.1-43.9 [facility] Comment on above: Performed By: #### L 100.0500 ####[facility] [address] [place], [place], [address] Consultation - Infectious Dx on 06-27-2024 Consultation - Infectious Dx [facility] Medical Records Department [address] [place] [address] Consultation - Infectious Dx 06/27/24 1102 MR#: [id number] Acct: [id number] Name: YARA LOYA Rep #: [id number] : 1950 73 From: Ron Shaikh MD PCP: Krystin العراقي, 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 Taken to OR 06/24/[address] Ferrara for I D and spacer placement. Picc in place, will write for 6 weeks iv ceftriaxone, stop date 08/05/24 with weekly labs and ID followup in 2 weeks. D/w social services. Will follow, thank you HPI Consult Data Date of Consult: 06/27/24 HPI Narrative Reason for Consultation: PJI HPI Narrative: YARA LOYA, is a 73 F with prior R shoulder replacement, reports progressive pain in R shoulder since 03/2024, no known inciting events. No fever, no night sweats. In early Jun, developed red/tender/swelling over R shoulder. Aspiration done, taken to OR 06/24/[address] Ferrara for spacer placement. Feeling ok, on ancef, she is R handed. Full ROS performed and neg except as noted above. [facility] Medical History Hx of thyroid disease Primary osteoarthritis, right shoulder Right shoulder pain Primary osteoarthritis, left shoulder Fibromyalgia Muscular pain Wears dentures Post-menopausal Former smoker History of pain when walking Knee fracture, right Patellar fracture Anemia Health care maintenance Chronic back pain Bilateral knee pain Osteoporosis Wears glasses Osteoporosis Osteoarthritis Headache, migraine Back pain Arthritis Home Medications ???Medication ???Instructions ???Recorded ???Last Taken ???Type acetaminophen 500 mg tablet 1,000 mg PO Q8 PRN pain 07/13/23 0 07/21/23 History levothyroxine 25 mcg tablet 25 mcg PO DAILY THYROID 04/12/24 0 06/23/24 History morphine 15 mg tablet,extended 15 mg PO BID PAIN 05/26/24 Unknown History release ceftriaxone 2 gram intravenous 2 g IV DAILY 39 days 06/27/24 Unkn own Rx solution Allergy/AdvReac Type Severity Reaction Status Date / Time grass pollen Allergy Intermediate sinus Verified 06/24/24 10:31 issues Family History Father Hypertension Arthritis CVA (cerebral vascular accident) Mother CVA (cerebral vascular accident) Hypertension Alcoholism Surgical History (Updated 06/25/24 @ 07:[address] Dejan Ferrara MD) Hx of shoulder replacement Hx of total hip arthroplasty History of esophagogastroduodenosco py (EGD) Hx of total hip arthroplasty Hx of neck surgery Hx of hemorrhoidectomy History of back surgery History of hip replacement, total S/P cervical spinal fusion S/P cervical spinal fusion H/O shoulder replacement Social History Smoking Status: Former smoker alcohol intake: never substance use type: does not use what type of physical activity do you participate in: walking frequency: daily Physical Exam Const alert, oriented x3 and no apparent distress General Appearance: cooperative HEENT normocephalic and head/scalp atraumatic Eyes PERRL and EOMs intact bilaterally Neck supple and No nodes Resp normal air movement and clear to auscultation bilaterally Cardio regular rate and regular rhythm GI soft to palpation, non-tender and non-distended Extremity General Extremity: Negative for edema Skin no rashes or lesions noted Skin Narrative: R shoulder bandaged Neuro CN's II-XII intact bilaterally Lab / Micro Data Attestation: I reviewed the patient's lab results. 06/27/24 08:00 06/25/24 06:50 Labs: Laboratory Results - last 24 hr 06/27/24 08:00: WBC 7.7, RBC 2.74 L, Hgb 8.2 L, Hct 26.2 L, MCV 95.6, MCH 29.9, MCHC 31.3 L, RDW Std Deviation 50.7 H, RDW Coeff of Nilsa 14.8 H, Plt Count 424, MPV 9.4 Micro: Microbiology 06/24/24 12:45 Tissue - Shoulder Gram Stain - Final 06/24/24 12:45 Tissue - Shoulder Wound Culture - Preliminary No growth-Final to follow 06/24/24 12:45 Tissue - Shoulder Anaerobic Culture - Preliminary No growth in 48 hours. 06/24/24 12:45 Tissue - Shoulder Gram Stain - Final 06/24/24 12:45 Tissue - Shoulder Wound Culture - Preliminary No growth-Final to follow 06/24/24 12:45 Tissue - Shoulder Anaerobic Culture - Preliminary No growth in 48 hours. 06/24/24 12:45 Tissue - Shoulder Gram Stain - Final 06/24/24 12:45 Tissue - Shoulder Wound Culture - Preliminary No growth-Final to follow 06/24/24 12:45 Tissue - Shoulder Anaerobic Culture - Preliminary No growth in 48 hours. 06/27/24 1104 Cosigner Signature (if applicable): CC: MAID HOUSEKEEPERSommer العراقي; Dr. Seay (more content not included)... Normal [facility] Erythrocyte distribution wid th (RBC) [Ratio]Ordered By: Isra Henry on 06-27-2024 Erythrocyte distribution width (RBC) [Entitic vol] 50.7 fL High 35.1-43.9 [facility] Erythrocyte distribution wid th ratioOrdered By: Isra Henry on 06-27-2024 Erythrocyte distribution width (RBC) [Ratio] 14.8 % High 11.6-14.6 [facility] Comment on above: Performed By: #### L 100.0500 ####[facility] [id number] [place], [place], [id number] HH, Hemoglobin AND Hematocri ton 06-27-2024 HCT Normal 37-47 [facility] Comment on above: Result Comment: Canc elled via OM: MD Ordered Performed By: #### L 100.0600 ####[facility] [address] [place], [address] HGB Normal 12.0-15.0 [facility] Comment on above: Result Comment: Canc elled via OM: MD Ordered Performed By: #### L 100.0600 ####[facility] [address] [place], [address] Hemoglobin measurementOrdere d By: Isra Henry on 06-27-2024 Hemoglobin (Bld) [Mass/Vol] 8.2 g/dL Low 12.0-15.0 [facility] Comment on above: Performed By: #### L 100.0500 ####[facility] [address] [place], [address] MCV (mean corpuscular volume ) determinationOrdered By: Isra Henry on 06-27-2024 MCV (RBC) [Entitic vol] 95.6 fL Normal 81-99 [facility] Comment on above: Performed By: #### L 100.0500 ####[facility] [address] [place], [address] Mean corpuscular hemoglobin (MCH) determinationOrdered By: Isra Henry on 06-27-2024 MCH (RBC) [Entitic mass] 29.9 pg Normal 27.0-32.0 [facility] Comment on above: Performed By: #### L 100.0500 ####[facility] [address] [place], [address] Mean corpuscular hemoglobin concentration (MCHC) determinationOrdered By: Isra Henry on 06-27-2024 MCHC (RBC) [Mass/Vol] 31.3 g/dL Low 32-36 [facility] Comment on above: Performed By: #### L 100.0500 ####[facility] [address] [place], [address] Mean platelet volume determi nationOrdered By: Isra Henry on 06-27-2024 Platelet mean volume (Bld) [Entitic vol] 9.4 fL Normal 6.2-12.0 [facility] Comment on above: Performed By: #### L 100.0500 ####[facility] [address] [place], [address] Platelet countOrdered By: Drake Henry on 06-27-2024 Platelets (Bld) [#/Vol] 424 10*3/uL Normal 150-450 [facility] Comment on above: Performed By: #### L 100.0500 ####[facility] [address] [place], [address] White blood cell (WBC) count Ordered By: Isra Henry on 06-27-2024 WBC (Bld) [#/Vol] 7.7 10*3/uL Normal 4.4-11.0 [facility] Comment on above: Performed By: #### L 100.0500 ####[facility] [address] [place], [address] CBC-Complete Blood Cnt No Di ffon 06-26-2024 Erythrocyte distribution width (RBC) [Ratio] 14.6 % Normal 11.6-14.6 [facility] Comment on above: Performed By: #### L 100.0500 ####[facility] [address] [place], [address] Hematocrit (Bld) [Volume fraction] 23.6 % Low 37-47 [facility] Comment on above: Performed By: #### L 100.0500 ####[facility] [address] [place], [address] Hemoglobin (Bld) [Mass/Vol] 7.6 g/dL Low 12.0-15.0 [facility] Comment on above: Performed By: #### L 100.0500 ####[facility] [address] [place], [address] MCH (RBC) [Entitic mass] 29.9 pg Normal 27.0-32.0 [facility] Comment on above: Performed By: #### L 100.0500 ####[facility] [address] [place], [address] MCHC (RBC) [Mass/Vol] 32.2 g/dL Normal 32-36 [facility] Comment on above: Performed By: #### L 100.0500 ####[facility] [address] [place], [address] MCV (RBC) [Entitic vol] 92.9 fL Normal 81-99 [facility] Comment on above: Performed By: #### L 100.0500 ####[facility] [address] [place], [address] Platelet mean volume (Bld) [Entitic vol] 9.1 fL Normal 6.2-12.0 [facility] Comment on above: Performed By: #### L 100.0500 ####[facility] [address] [place], [address] Platelets (Bld) [#/Vol] 397 10*3/uL Normal 150-450 [facility] Comment on above: Performed By: #### L 100.0500 ####[facility] [address] [place], [address] RBC (Bld) [#/Vol] 2.54 10*6/uL Low 4.2-5.4 [facility] Comment on above: Performed By: #### L 100.0500 ####[facility] [address] [place], [address] RDW SD 49.6 fl High 35.1-43.9 [facility] Comment on above: Performed By: #### L 100.0500 ####[facility] [address] [place], [address] WBC (Bld) [#/Vol] 9.0 10*3/uL Normal 4.4-11.0 [facility] Comment on above: Performed By: #### L 100.0500 ####[facility] [address] [place], [address] Basic Metabolic Profile (BMP )on 06-25-2024 BUN/CRE 18.9 RATIO Normal 10-20 [facility] Comment on above: Performed By: #### L 100.0500, L500.2500 ####[facility] [address] [place], [address] CA,Total 8.6 mg/dL Normal 8.5-10.1 [facility] Comment on above: Performed By: #### L 100.0500, L500.2500 ####[facility] [address] [place], [address] Chloride [Moles/Vol] 110 mmol/L High 98-107 [facility] Comment on above: Performed By: #### L 100.0500, L500.2500 ####[facility] [address] [place], [address] CO2 [Moles/Vol] 21.0 mmol/L Normal 21.0-32.0 [facility] Comment on above: Performed By: #### L 100.0500, L500.2500 ####[facility] [address] [place], [address] Creatinine [Mass/Vol] 0.79 mg/dL Normal 0.55-1.02 [facility] Comment on above: Result Comment: The validity of the calculated GFR GFRAA in patients over 70 years has not been determined. Clinical correlation is essential. Performed By: #### L 100.0500, L500.2500 ####[facility] [address] [place], [address] ECRCL 40.81 ml/min Normal [facility] Comment on above: Performed By: #### L 100.0500, L500.2500 ####[facility] [address] [place], [address] EST GFR - AA 91 mL/min Normal >60 [facility] Comment on above: Result Comment: Afri can [place] Citizen GFR Calc Performed By: #### L 100.0500, L500.2500 ####[facility] [address] [place], [address] GAP 8 Normal 5-15 [facility] Comment on above: Performed By: #### L 100.0500, L500.2500 ####[facility] [address] [place], [address] GFR/1.73 sq M.predicted among non-blacks MDRD (S/P/Bld) [Vol rate/Area] 75 mL/min/{1.73_m2} Normal >60 [facility] Comment on above: Result Comment: Non- GFR Calc Performed By: #### L 100.0500, L500.2500 ####[facility] [address] [place], [address] Glucose [Mass/Vol] 108 mg/dL High 74-106 [facility] Comment on above: Result Comment: Fast ing Glucose result from 100 to 125 mg/dL suggests IMPAIRED HOMEOSTASIS per A.D.A. criteria. Performed By: #### L 100.0500, L500.2500 ####[facility] [address] [place], [address] Potassium [Moles/Vol] 4.1 mmol/L Normal 3.5-5.1 [facility] Comment on above: Performed By: #### L 100.0500, L500.2500 ####[facility] [address] [place], [address] Sodium [Moles/Vol] 139 mmol/L Normal 136-145 [facility] Comment on above: Performed By: #### L 100.0500, L500.2500 ####[facility] [address] [place], [address] Urea nitrogen [Mass/Vol] 15 mg/dL Normal 7-18 [facility] Comment on above: Performed By: #### L 100.0500, L500.2500 ####[facility] [address] [place], [address] Blood urea nitrogen (BUN)/cr eatinine ratioOrdered By: Dejan Ferrara on 06-25-2024 Urea nitrogen/Creatinine [Mass ratio] 18.9 mg/mg 10-20 [facility] CBC-Complete Blood Cnt No Di ffon 06-25-2024 Erythrocyte distribution width (RBC) [Ratio] 14.0 % Normal 11.6-14.6 [facility] Comment on above: Performed By: #### L 100.0500, L500.2500 ####[facility] [address] [place], [address] Hematocrit (Bld) [Volume fraction] 24.5 % Low 37-47 [facility] Comment on above: Performed By: #### L 100.0500, L500.2500 ####[facility] [address] [place], [address] Hemoglobin (Bld) [Mass/Vol] 7.8 g/dL Low 12.0-15.0 [facility] Comment on above: Performed By: #### L 100.0500, L500.2500 ####[facility] [address] [place], [address] MCH (RBC) [Entitic mass] 29.9 pg Normal 27.0-32.0 [facility] Comment on above: Performed By: #### L 100.0500, L500.2500 ####[facility] [address] [place], [address] MCHC (RBC) [Mass/Vol] 31.8 g/dL Low 32-36 [facility] Comment on above: Performed By: #### L 100.0500, L500.2500 ####[facility] [address] [place], [address] MCV (RBC) [Entitic vol] 93.9 fL Normal 81-99 [facility] Comment on above: Performed By: #### L 100.0500, L500.2500 ####[facility] [address] [place], [address] Platelet mean volume (Bld) [Entitic vol] 9.2 fL Normal 6.2-12.0 [facility] Comment on above: Performed By: #### L 100.0500, L500.2500 ####[facility] [address] [place], [address] Platelets (Bld) [#/Vol] 484 10*3/uL High 150-450 [facility] Comment on above: Performed By: #### L 100.0500, L500.2500 ####[facility] [address] [place], [address] RBC (Bld) [#/Vol] 2.61 10*6/uL Low 4.2-5.4 [facility] Comment on above: Performed By: #### L 100.0500, L500.2500 ####[facility] [address] [place], [address] RDW SD 47.8 fl High 35.1-43.9 [facility] Comment on above: Performed By: #### L 100.0500, L500.2500 ####[facility] [address] [place], [address] WBC (Bld) [#/Vol] 15.5 10*3/uL High 4.4-11.0 [facility] Comment on above: Performed By: #### L 100.0500, L500.2500 ####[facility] [address] [place], [place], [address] Carbon dioxide measurementOr dered By: Dejan Ferrara on 06-25-2024 CO2 [Moles/Vol] 21.0 mmol/L 21.0-32.0 [facility] Chloride measurementOrdered By: Dejan Ferrara on 06-25-2024 Chloride [Moles/Vol] 110 mmol/L High 98-107 [facility] Estimated glomerular filtrat ion rate (GFR) AmericanOrdered By: Dejan Ferrara on 06-25-2024 Estimated GFR (MDRD) Amer 91 mL/min >60 [facility] Comment on above: GFR Calc Estimation of creatinine tom aranceOrdered By: Dejan Ferrara on 06-25-2024 Estimated Creatinine Clearance Calc 40.81 ml/min [facility] Glomerular filtration rate ( GFR) estimationOrdered By: Dejan Ferrara on 06-25-2024 Estimated GFR (MDRD) Non-Af Amer 75 mL/min >60 [facility] Comment on above: Non- GFR Calc Glucose measurementOrdered B y: Dejan Ferrara on 06-25-2024 Glucose [Mass/Vol] 108 mg/dL High 74-106 [facility] Comment on above: Fasting Glucose resu lt from 100 to 125 mg/dL suggests IMPAIRED HOMEOSTASIS per A.D.A. criteria. Gram Stainon 06-25-2024 GS UNK UNK collected in [place] - glenoid membrane Gram Stain 3+ Red Blood Cells Rare White Blood Cells No organisms seen Normal [facility] Comment on above: Performed By: #### P ERIK #### [facility] [address] [place], [place], [address] GS UNK UNK collected in [place] - anterior bursa Gram Stain 3+ Red Blood Cells 1+ White Blood Cells No organisms seen Normal [facility] Comment on above: Performed By: #### L 3410.9999 #### [facility] [address] [place], [place], [address] GS UNK UNK collected in [place] - humeral membrane Gram Stain 3+ Red Blood Cells 1+ White Blood Cells No organisms seen Normal [facility] Comment on above: Performed By: #### P ERIK #### [facility] [address] [place], [address] Potassium measurementOrdered By: Dejan Ferrara on 06-25-2024 Potassium [Moles/Vol] 4.1 mmol/L 3.5-5.1 [facility] Serum anion gap measurementO rdered By: Dejan Ferrara on 06-25-2024 Anion gap [Moles/Vol] 8 mmol/L 5-15 [facility] Serum or plasma calcium leo urement (mass/volume)Ordered By: Dejan Ferrara on 06-25-2024 Calcium [Mass/Vol] 8.6 mg/dL 8.5-10.1 [facility] Serum or plasma creatinine m easurement (mass/volume)Ordered By: Dejan Ferrara on 06-25-2024 Creatinine [Mass/Vol] 0.79 mg/dL 0.55-1.02 [facility] Comment on above: The validity of the calculated GFR & GFRAA in patients over 70 years has not been determined. Clinical correlation is essential. Serum or plasma urea nitroge n measurement (mass/volume)Ordered By: Dejan Ferrara on 06-25-2024 Urea nitrogen [Mass/Vol] 15 mg/dL 7-18 [facility] Sodium levelOrdered By: Jerman Ferrara on 06-25-2024 Sodium [Moles/Vol] 139 mmol/L 136-145 [facility] Wound Cultureon 06-25-2024 WC UNK UNK collected in [place] - humeral membrane No growth aerobically. Normal [facility] Comment on above: Performed By: #### P ERIK #### [facility] [address] [place], [address] WC UNK UNK collected in [place] - glenoid membrane No growth aerobically. Normal [facility] Comment on above: Performed By: #### P ERIK #### [facility] [address] [place], [place], [address] WC UNK UNK collected in [place] - anterior bursa No growth aerobically. Normal [facility] Comment on above: Performed By: #### L 3410.9999 #### [facility] [address] [place], [place], [address] Acid fast bacillus (AFB) cul ture and smearOrdered By: Dejan Ferrara on 06-24-2024 Acid Fast Bacilli Smear [facility] Bacteria identified Anaer cx Nom (Unsp spec)Ordered By: Dejan Ferrara on 06-24-2024 Anaerobic Culture No growth in 5 days. [facility] Bedside Glucoseon 06-24-2024 FINGERSTICK GLU 77 mg/dL Normal 74-106 [facility] Comment on above: Result Comment: SÁNCHEZ GEMENT OF PATIENT CARE PER NURSING PROTOCOL Performed By: #### L 501.080 #### [facility] [address] [place], [place], [address] Fungus identified Cx Nom (Un sp spec)Ordered By: Dejan Ferrara on 06-24-2024 Fungal Culture [facility] Fungus identified Fungus sta in Nom (Unsp spec)Ordered By: Dejan Ferrara on 06-24-2024 Fungal Smear [facility] By: Dejan Ferrara on 06-24-2024 Bedside Glucose (Misc Panel) 77 mg/dL 74-106 [facility] Comment on above: MANAGEMENT OF PATIEN T CARE PER NURSING PROTOCOL Gram stainOrdered By: Dejan Ferrara on 06-24-2024 Microscopic observation Gram stain Nom (Unsp spec) [facility] MR/POSTOP.ANEon 06-24-2024 MR/POSTOP.ANE [facility] Medical Records Department [address] [place] [place] [address] Anesthesia Postop Eval I 06/24/24 1601 MR#: [id number] Acct: [id number] Name: YARA LOYA Silvestre Rep #: [id number] : 1950 73 From: Rubén Kwong CRNA PCP: Krystin العراقي MAID HOUSEKEEPER-C Status:ADM IN Y Race: C Location: MS3 [id number] Anesthesia: Postop Eval I Current Vital Signs Temperature: 97.0 F Pulse Rate: 95 Blood Pressure: 136/76 Respiratory Rate: 16 Pulse Ox: 99 Oxygen Delivery Method: Room Air Assessment Airway patent: Yes Spontaneous unlabored respirations: Yes nausea: No Vomiting: No Anesthesia Complication: No Fluid Hydration Crystalloid volume administer (ml): 1,500 Total IV fluid infused: 1,500 Progress Note Anesthesia document: Postop Eval 1 completed: Yes 06/24/24 1602 Date Rubén Kwong SCENE AND LIGHTING DESIGN LECTURER Cosigner Signature: Date CC: Signed Normal [facility] MR/OTGNSNMG7ya 06-24-2024 [facility] Medical Records Department [address] [place] [address] Anesthesia Postop Eval II 06/24/24 1641 MR#: [id number] Acct: [id number] Name: YARA LOYA Rep #: [id number] : 1950 73 From: Db Uribe MD PCP: AUSTIN Woodward Status:ADM IN Y Race: C Location: [place] [id number] Anesthesia Postop Eval I Sum Postop Eval Completion status Anesthesia document: Postop Eval 1 completed: Yes Anesthesia Postop Eval I Summary Anesthesia Postop Eval I Summary: Anesthesia Postop Eval I: Assessment Summary Airway patent Yes 06/24/24 16:02 SCENE AND LIGHTING DESIGN LECTURER.ACAR Spontaneous unlabored Yes 06/24/24 16:02 SCENE AND LIGHTING DESIGN LECTURER.ACAR respirations Mental status nausea No 06/24/24 16:02 SCENE AND LIGHTING DESIGN LECTURER.ACAR Vomiting No 06/24/24 16:02 SCENE AND LIGHTING DESIGN LECTURER.ACAR Anesthesia Postop Eval I: Fluid Summary Crystalloid volume administer 1,500 06/24/24 16:02 SCENE AND LIGHTING DESIGN LECTURER.ACAR (ml) Colloids volume administered ( ml) Blood Product volume administered (ml) Total IV fluid infused 1,500 06/24/24 16:02 SCENE AND LIGHTING DESIGN LECTURER.ACAR Anesthesia Postop Eval I: Summary Notes Anesthesia Complication No 06/24/24 16:02 SCENE AND LIGHTING DESIGN LECTURER.ACAR Anesthesia Complication Comment: Post-operative progress note Anesthesia: Postop Eval II Evaluation Mental status: Awake and Calm Pain Level: 3 nausea: No Vomiting: No Complications Anesthesia Complication: No 06/24/24 1641 Date bD Uribe MD Cosigner Signature: Date CC: Signed Normal [facility] Mycobacterium sp identified Org specific cx Nom (Unsp spec)Ordered By: Dejan Ferrara on 06-24-2024 Acid Fast Bacilli Culture [facility] Operative Reporton Operative Report [facility] Medical Records Department [address] [place] [address] Operative Report 06/24/24 1524 MR#: [id number] Acct: [id number] Name: YARA LOYA Rep #: [id number] : 1950 73 From: Dejan Ferrara MD PCP: AUSTIN Woodward Status:ADM IN Location: [place] [id number] Operative Report (Standard) Operative Information Date of Procedure: 06/24/24 Pre-Operative Diagnosis: Right total shoulder periprosthetic joint infection Post-Operative Diagnosis: 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 terminal operations manager: Yes Retouching Operator: Tj Last Tasks completed by patient support assistant: Opening closing, Dissecting tissue, Removing tissue, Implanting device, Hemostasis: Electrocautery, Retracting and Other (Positioning) Additional assistant professor of nursing?: No Type of Anesthesia: General RN Documented Start/Stop Times: Operation Date: 06/24/24 12:45 Case Time Into Pre-Op 06/24/24 10:17 Out of Pre-Op 06/24/24 12:48 Anesthesia Start 06/24/24 12:57 Into Room 06/24/24 12:57 Procedure Start 06/24/24 13:31 Procedure End 06/24/24 15:38 Anesthesia End 06/24/24 15:48 Out of Room 06/24/24 15:48 Into Recovery 06/24/24 15:50 Out of Recovery 06/24/24 17:04 Procedure Start Time: 13:31 Procedure Stop Time: 15:38 Select all DRAINS/GRAFTS/IMPLANTS that apply: Prosthetic device Prosthetic device details: Tornier antibiotic cement mold system 48 mm head, #4 body Special Medications: Ancef, vancomycin, antibiotic cement (Ancef vancomycin and tobramycin) Estimated Blood Loss: 200 mL Fluids Replaced: Crystalloid Specimen collected: Yes Description of specimen(s) removed: Glenoid implant had oxidation superiorly and was sent for pathology 3 separate specimens sent to microbiology Description of surgery: Procedure: On the date of the procedure, patient's R upper extremity was marked in the preoperative area. Patient was taken back to the operating room where they were placed on the table in the supine position. Anesthesia assumed control of the C-spine and airway, then administered anesthetic. All bony prominences were identified well-padded, the head was secured and the patient was placed in the beachchair position at about 35??? inclination. Anesthesia remained in control of the C-spine airway throughout the remainder of the procedure. Patient was then appropriately fastened to the table and the R upper extremity was prepped in a sterile fashion. The surgeons then scrubbed. Upon reentering the room, the R upper extremity was draped in a sterile fashion and the incision was marked out. Timeout was called, everyone agreed upon the side, the site, the procedure to be performed, patient identity and antibiotics given. Incision was taken down through skin and subcutaneous tissue, fat down to fascia. The stripe of the deltopectoral interval and cephalic vein were identified and blunt dissection was used to retract the deltoid. The cephalic vein was retracted laterally. There was significant scar tissue and branching of this vessel. Eventually some of the branches did create bleeding in order to obtain hemostasis the vessel was eventually tied off. We then bluntly dissected through the clavipectoral fascia and a cobel retractor was placed in the wound. The proximal one third of the pectoralis major insertion was released. We carefully were able to see the structure on the anterior humerus. There was a rent in the superior rotator cuff. There was gross fluid expressed from the joint which was cloudy and purulent. We carefully removed the subscapularis and anterior tissue sleeve, and doing so we released down the anterior portion of the humeral head and a geronimo elevator was used to release the inferior portion of the humeral head. The arm was externally rotated and the shoulder was dislocated. The humeral head was then exposed and the tuning fork was used to separate the humeral head from the stem. The baseplate adapter was then removed using the torque intel analyst. Once his humeral head was removed, humerus was retracted out of the way and the glenoid was exposed. After exposing the glenoid, at this time we then used an osteotome to separate the glenoid from this case. The outer pegs were easily removed. The central peg was then removed using the ICEdot core device corneal rounded. There was a good bony bulk still. The sclerotic bone was burred and the outer peg holes were burred back to good bleeding bone. Residual synovium was removed. Attention was then turned towards the humerus. The humerus was again externally rotated exposing the proximal portion of the humerus. We then carefully exposed the pro (more content not included)... Normal [facility] Routine wound cultureOrdered By: Dejan Ferrara on 06-24-2024 Wound Culture No growth aerobically. [facility] Shoulder min 2 Viewson 06-24 Shoulder min 2 Views [facility] Imaging Services [address], [place] [id number] Shoulder min 2 Views MR#: [id number] Acct: [id number] Name: YARA LOYA Rep #: [id number] : 1950 F 73 From: Jose Rowland MD PCP: Krystin العراقي NP-C Status: ADM IN Study: Shoulder min 2 Views Date of Exam: 06/24/24 Exam# [id number] Ordering Dr: Dejan Ferrara MD PROCEDURE: RIGHT SHOULDER, TWO VIEWS REASON FOR EXAM: POST OPERATIVE RIGHT SHOULDER. TECHNIQUE: AP AND SCAPULAR Y view(s) of RIGHT SHOULDER. COMPARISON: 04/12/2024. FINDINGS: Interval removal of the previously noted metallic humeral hemiarthroplasty. A new arthroplasty device has been inserted. For further description of the procedure please see postoperative report. Status post ACDF and dorsal fusion with instrumentation of the cervical spine. RAD/Shoulder min 2 Views IMPRESSION: Status post postoperative removal and replacement of a right shoulder arthroplasty. Reading Location: [facility] CC: MAID HOUSEKEEPERSommre العراقي; Dr. Dejan Ferrara MD Visual C Developer: Signed Normal [facility] Surgery Specimen Level Ion 0 06-24-2024 Surgery Specimen Level I Patient Age/Sex Location Account Attending Physician YARA LOYA 73/F MS3 [id number] Dr. Dejan Ferrara MD Specimen: [id number] Received: 06/24/24 Status: FLORES Adame Num: [id number] Spec Type: FOREIGN B Subm Dr: Dr. Dejan Ferrara MD HEADER OPERATION: Right shoulder soft tissue biopsy PRE-OP DIAGNOSIS: Pain due to internal orthopedic prosthetic devices, implants and grafts, infection and inflammatory reaction due to other internal joint prosthesis, presence of right artificial shoulder joint, effusion right shoulder TISSUE SUBMITTED: Glenoid GROSS DIAGNOSIS Glenoid: Orthopedic hardware, gross diagnosis only. Please see gross description. ANTHONY. 06/27/2024 MICROSCOPIC DESCRIPTION Slides are reviewed. GROSS DESCRIPTION Received fresh without tissue is orthopedic appearing hardware. There is a fragment of metal measuring 1.5cm in length and 9mm in diameter and a fragment of plastic tissue measuring 3.0 x 2.0 x 5.0cm with prongs present on one surface, three of which contain metal caps. The prongs range from 6-9mm in length and are approximately 6mm in diameter. One is not covered with metal. No sections are taken. 06/27/2024 CPT:18640 Patient Age/Sex Location Account Attending Physician YARA LOYA 73/F MS3 [id number] Dr. Dejan Ferrara MD Signed (signature on file) Dr. Aissatou Ann MD 06/27/24 1510 Normal [facility] Comment on above: Performed By: #### P ERIK #### [facility] [address] [place], [address] Echo Completeon 06-15-2024 Echo Complete [facility] [address] [facility] [place] [address] Echo Complete 06/15/24 0801 MR#: [id number] Acct: [id number] Name: YARA LOYA Rep #: [id number] : 1950 73 From: Nilesh Schwartz MD Attending Dr: Krystin العراقي NP-C Status: REG CLI Ordering Dr: Krystin العراقي MAID HOUSEKEEPER-C Date: 06/15/24 Location: [facility] Sex: F C Admitted: Reason For Study Reason For Study: SOB Procedure This was a 2D Doppler, Color Flow transthoracic echocardiogram. Exam performed in department. Left Ventricle Normal LV size. Left ventricular systolic function is normal. The left ventricular ejection fraction is 60 %. Stage 1 diastolic dysfunction. No regional wall motion abnormalities noted. Right Ventricle Normal RV size. Normal systolic function. Atria Normal left atrium. Normal right atrium. Mitral Valve Normal mitral valve. Mild (1+) eccentric mitral valve insufficiency. Tricuspid Valve Normal tricuspid valve. Mild (1+) tricuspid valve insufficiency. Pulmonary artery systolic pressure is 34 mmHg. Aortic Valve Trisinus/trileaflet aortic valve. Mild (1+) aortic valve insufficiency. Pulmonic Valve Normal pulmonic valve. Great Vessels Normal aortic root. The pulmonary artery is normal size. Inferior vena cava collapse with respiration. Pericardium/Pleural No pericardial effusion. MMode/2D Measurements Calculations LVIDd: 4.1 cm IVSd: 0.80 cm Ao root diam: 3.3 cm LVIDs: 2.3 cm LVPWd: 0.79 cm RVDd: 3.2 cm FS: 44.6 % _ LAV(MOD-bp): 30.6 ml LVAd ap4: 21.0 cm2 SV(MOD-sp4): 38.8 ml LAV(MOD-bp) Indexed: 22.9 ml/m2 LVLd ap4: 6.1 cm SI(MOD-sp4): 29.0 ml/m2 LAV(MOD-sp2): 32.5 ml EDV(MOD-sp4): 59.0 ml LAV(MOD-sp4): 27.6 ml EDV(sp4-el): 61.2 ml LVAs ap4: 10.7 cm2 LVLs ap4: 4.7 cm ESV(MOD-sp4): 20.2 ml ESV(sp4-el): 20.6 ml EF(MOD-sp4): 65.7 % EF(sp4-el): 66.3 % _ SV(sp4-el): 40.6 ml Ao sinus diam: 3.[address] Junction: 2.7 cm _ LA dimension(2D): 2.9 cm LA A4 area: 12.0 cm2 RA A4 area: 13.1 cm2 _ TAPSE: 1.9 cm Time Measurements MV dec time: 0.17 sec Doppler Measurements Calculations MV E max ruth: 61.3 cm/sec Lat Peak E' Ruth: 10.2 cm/sec Med Peak E' Ruth: 6.8 cm/sec MV A max ruth: 85.4 cm/sec E/E' lat: 6.0 E/E' med: 9.0 MV E/A: 0.72 _ MV V2 max: 95.1 cm/sec MV P1/2t max ruth: 79.6 cm/sec Ao V2 max: 113.2 cm/sec MV max P.6 mmHg MV P1/2t: 66.7 msec Ao max P.1 mmHg MV V2 mean: 51.9 cm/sec MV dec slope: 349.6 cm/sec2 Ao V2 mean: 79.9 cm/sec MV mean P.2 mmHg Ao mean P.9 mmHg MV V2 VTI: 19.5 cm MVA(P1/2t): 3.3 cm2 Ao V2 VTI: 20.9 cm _ AI max ruth: 521.7 cm/sec LV V1 max: 83.7 cm/sec MR max ruth: 505.8 cm/sec AI max P.0 mmHg LV V1 max P.8 mmHg MR max P.3 mmHg AI dec slope: 246.6 cm/sec2 AI P1/2t: 619.6 msec _ PA V2 max: 91.1 cm/sec TR max ruth: 273.8 cm/sec TR max P.0 mmHg ECHO/Echo Complete Interpretation Summary Normal LV size. Left ventricular systolic function is normal. The left ventricular ejection fraction is 60 %. Stage 1 diastolic dysfunction. Mild (1+) aortic valve insufficiency. Pulmonary artery systolic pressure is 34 mmHg. 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 Krystin العراقي Date Dictated: 06/15/24800 Date Transcribed: 06/15/241047 Visual C Developer: [facility] MR/PAT.LOUIEon 06-15-2024 MR/PAT.[facility] Medical Records Department [address] [place] [id number] PAT - Anesthesia 06/15/24 1615 MR#: [id number] Acct: [id number] Name: YARA LOYA Rep #: [id number] : 1950 73 From: Clayton Smith MD PCP: AUSTIN Woodward Status:PRE [facility] Y Race: C Location: [facility] Pre-Assessment Diagnosis/Proposed Procedure Planned Operative Procedure(s): RIGHT SHOULDER SOFT TISSUE BX,DEBRIDEMENT SYNOVECTOMY REMOVAL TOTAL SHOULDER ANTIBIOTIC SPACER Anesthesia History Anesthesia History - book jogger: Anesthesia History - book jogger Hx Hospitalization No 06/03/24 14:28 Any Problems With Anesthesia No 06/03/24 14:28 Cholinesterase deficiency No 06/03/24 14:28 You/Your Family Experience No 06/03/24 14:28 fever (hyperthermia) with Relationship Recent Exposure to Contagious No 07/22/23 06:08 Disease Does patient have nerve No 06/03/24 14:28 stimulator Patient instructed to have device shut off --Does patient have Pacemaker or ICD? When Was Last Pacemaker Check QUESTION #4 FULL TEXT: You/Your Family Experience fever (hyperthermia) with Anesthesia Last Oral Intake Last Oral intake: Last Oral Intake NPO since Meds taken in AM with sips of water? Meds patient instructed to take am of surgery PONV PONV - book jogger: PONV - book jogger Female Yes 06/03/24 14:28 HX of Motion Sickness No 06/03/24 14:28 HX of N/V After Surgery No 06/03/24 14:28 Non-Smoker Yes 06/03/24 14:28 Duration of Surgery greater Yes 06/03/24 14:28 than 60 minutes Number of Risk Factors 3 06/03/24 14:28 PONV Score Moderate Risk 06/03/24 14:28 Height Weight Height Weight: Anesthesia: Height Weight Height 4 ft 10 in 07/22/23 06:08 Respiratory Assessment Respiratory Assessment - book jogger: Respiratory Tract Infection Hx - book jogger Hx Respiratory Tract Infection No 06/03/24 14:28 STOP Sleep Apnea STOP Sleep Apnea - book jogger: STOP Sleep Apnea - book jogger Hx Hypertension No 06/03/24 14:28 Hx Sleep Apnea No 06/03/24 14:28 CPAP BIPAP Do you snore loudly (louder No 06/03/24 14:28 than talking or can be heard Do you often feel tired/ Yes 06/03/24 14:28 fatigued/ sleepy during daytime? Has anyone observed you stop No 06/03/24 14:28 breathing during sleep? STOP Results Negative 06/03/24 14:28 QUESTION #5 FULL TEXT : Do you snore loudly (louder than talking or can be heard through closed doors)? 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 Specify any problems Hx of Preganancy in last 3 No 06/03/24 14:28 Months Nurse Filling Out Transfusion DSCHRIBER 06/03/24 14:28 Questions: Date: 06/03/24 06/03/24 14:28 Time: 14:30 06/03/24 14:28 Patient unable to answer at this time (ie. confused, unrespo /Reproduction History /Reproductive History - book jogger: /Reproductive Hx- book jogger Hx Now No 06/03/24 14:28 Gestational Age (in weeks): EDC: Hx Hx Para Hx Section SAB No 06/03/24 14:28 [facility] Medical History (Updated 06/03/24 @ 14:41 by Tasha Aburto) Hx of thyroid disease Primary osteoarthritis, right shoulder Right shoulder pain Primary osteoarthritis, left shoulder Fibromyalgia Muscular pain Wears dentures Post-menopausal Former smoker History of pain when walking Knee fracture, right Patellar fracture Anemia Health care maintenance Chronic back pain Bilateral knee pain Osteoporosis Wears glasses Osteoporosis Osteoarthritis Headache, migraine Back pain Arthritis Home Medications ???Medication ???Instructions ???Recorded ???Last Taken ???Type acetaminophen 500 mg tablet 1,000 mg PO Q8 PRN pain 07/13/23 0 07/21/23 History levothyroxine 25 mcg tablet 25 mcg PO DAILY THYROID 04/12/24 U nknown History morphine 15 mg tablet,extended 15 mg PO DAILY (more content not included)... [facility] 06-08-2024 [facility] Telephone (SELINA) -------- YARA LOYA ([id number]) 1950 F Date Time Provider Department 06/08/24 LESLIE MONET During your visit today, we recorded the following information about you: Anne-Marie So RN 06/08/2024 10:05 AM Signed Received a VM from patient on 06/07/24 that she had shoulder surgery about 9 years ago and recently developed a infection. Now she has to have 2 surgeries and will not be able have the Prolia injection until the middle to the end of summer. 06/08/24--called patient back at [phone] and received VM. Left a VM letting patient know we received her VM and we will update the provider. Also told patient to call the nurse line to let the nurses know when she will be able to get the Prolia so if we need to do a PA before she comes in. Leslie Monet MD 07/06/2024 7:56 AM Signed Noted Allergies As of Date: 06/08/2024 Noted Allergy Reaction SEASONAL ALLERGIES 09/20/2013 14 - Other: See Comments Comments: sinus Date Reviewed: 12/15/2023 Reviewed by: Yuliana Bagley RN - Fully Assessed Reason for Visit: Patient Update [1234] Prescriptions as of 07/06/2024 - multivitamin tablet Take 1 tablet by [...] once daily. Problem List As Of Date 06/08/2024 Noted Resolved Osteoporosis [M81.0] 12/30/2012 Arthritis [M19.90] 12/30/2012 Herniated cervical disc [M50.20] 12/30/2012 Fibromyalgia [M79.7] 12/30/2012 Back pain, lumbosacral [M54.50] 12/30/2012 Pruritus ani [L29.0] 04/20/2013 09/20/2013 Hemorrhoids [K64.9] 08/03/2013 09/20/2013 Eczema [L30.9] 09/20/2013 Pain in joint, site unspecified [M25.50] 04/11/2014 Cervicalgia [M54.2] 09/20/2014 Tobacco abuse disorder [Z72.0] 09/20/2014 Hyperlipidemia [E78.5] 09/20/2014 Encounter Status:Closed by LESLIE MONET on 07/06/24 Normal [facility] MRSA/SAID NASAL SCREENon MRSA+SAID SCRN Reason for Exam: PRE OP KRYSTIN العراقي ORDERED CMP CBCD CRP UA MRSA MRSA Negative S. AUREUS S. aureus PositiveA Normal [facility] Comment on above: Performed By: #### L 400.2011, L501.1800, L100.0100, L501.6710, M100.651 ####[facility] [address] [place], [address] Absolute neutrophil countOrd ered By: Dejan Ferrara on 06-03-2024 Neutrophils (Bld) [#/Vol] 7.5 10*3/uL 2.0-7.7 [facility] Albumin, Serumon 06-03-2024 Albumin [Mass/Vol] 2.9 g/dL Low 3.2-5.0 [facility] Comment on above: Order Comment: YARA العراقي ORDERED CMP CBCD CRP UA Performed By: #### L 400.2010, L501.1800, L100.0100, L501.6710, M100.651 ####[facility] [address] [place], [address] Basophil percentageOrdered B y: Dejan Ferrara on 06-03-2024 Basophils/100 WBC (Bld) 0.4 % 0-1 [facility] Bilirubin Test strip Ql (U)O rdered By: Dejan Ferrara on 06-03-2024 Bilirubin Ql (U) Negative Negative [facility] C-reactive protein measureme nt by high sensitivity methodOrdered By: Dejan Ferrara on 06-03-2024 C-Reactive Protein Extended Range 136.00 mg/L High 0.0-3.0 [facility] Comment on above: C-Reactive Protein ( CRP) provides useful information for thediagnosis, therapy and monitoring of inflammatory processesand associated diseases. For the evaluation of Relative Riskfor Cardiovascular Disease, a High Sensitivity CRP (HSCRP)should be ordered. CBC W/Diff, Automatedon 05-06 Absolute Lymph 1.32 X10 3/uL Normal 0.83-4.51 [facility] Comment on above: Order Comment: YARA العراقي ORDERED CMP CBCD CRP UA Performed By: #### L 400.2010, L501.1800, L100.0100, L501.6710, M100.651 ####[facility] [address] [place], [address] Absolute Neut 7.5 X10 3/uL Normal 2.0-7.7 [facility] Comment on above: Order Comment: YARA العراقي ORDERED CMP CBCD CRP UA Performed By: #### L 400.2010, L501.1800, L100.0100, L501.6710, M100.651 ####[facility] [address] [place], [address] Basophils/100 WBC (Bld) 0.4 % Normal 0-1 [facility] Comment on above: Order Comment: YARA العراقي ORDERED CMP CBCD CRP UA Performed By: #### L 400, L501.1800, L100.0100, L501.6710, M100.651 ####[facility] [address] [place], [address] Eosinophils/100 WBC (Bld) 0.7 % Normal 0-5 [facility] Comment on above: Order Comment: YARA العراقي ORDERED CMP CBCD CRP UA Performed By: #### L 400, L501.1800, L100.0100, L501.6710, M100.651 ####[facility] [address] [place], [address] Erythrocyte distribution width (RBC) [Ratio] 13.7 % Normal 11.6-14.6 [facility] Comment on above: Order Comment: YARA العراقي ORDERED CMP CBCD CRP UA Performed By: #### L 400, L501.1800, L100.0100, L501.6710, M100.651 ####[facility] [address] [place], [address] Hematocrit (Bld) [Volume fraction] 30.5 % Low 37-47 [facility] Comment on above: Order Comment: YARA العراقي ORDERED CMP CBCD CRP UA Performed By: #### L 400, L501.1800, L100.0100, L501.6710, M100.651 ####[facility] [address] [place], [address] Hemoglobin (Bld) [Mass/Vol] 9.8 g/dL Low 12.0-15.0 [facility] Comment on above: Order Comment: YARA العراقي ORDERED CMP CBCD CRP UA Performed By: #### L 400.2010, L501.1800, L100.0100, L501.6710, M100.651 ####[facility] [address] [place], [address] IG% 0.500 Normal 0.0-0.9 [facility] Comment on above: Order Comment: YARA العراقي ORDERED CMP CBCD CRP UA Result Comment: IG% - Immature Granulocytes (promyelocytes, myelocytes and metamyelocytes) > 1% indicates that a LEFT SHIFT is Present. Performed By: #### L 400, L501.1800, L100.0100, L501.6710, M100.651 ####[facility] [address] [place], [address] Lymphocytes/100 WBC (Bld) 13.7 % Low 19-41 [facility] Comment on above: Order Comment: YARA العراقي ORDERED CMP CBCD CRP UA Performed By: #### L 400.2010, L501.1800, L100.0100, L501.6710, M100.651 ####[facility] [address] [place], [address] MCH (RBC) [Entitic mass] 30.6 pg Normal 27.0-32.0 [facility] Comment on above: Order Comment: YARA العراقي ORDERED CMP CBCD CRP UA Performed By: #### L 400, L501.1800, L100.0100, L501.6710, M100.651 ####[facility] [address] [place], [address] MCHC (RBC) [Mass/Vol] 32.1 g/dL Normal 32-36 [facility] Comment on above: Order Comment: YARA العراقي ORDERED CMP CBCD CRP UA Performed By: #### L 400.2010, L501.1800, L100.0100, L501.6710, M100.651 ####[facility] [address] [place], [address] MCV (RBC) [Entitic vol] 95.3 fL Normal 81-99 [facility] Comment on above: Order Comment: YARA العراقي ORDERED CMP CBCD CRP UA Performed By: #### L 400.2010, L501.1800, L100.0100, L501.6710, M100.651 ####[facility] [address] [place], [address] Monocytes/100 WBC (Bld) 6.7 % Normal 0-10 [facility] Comment on above: Order Comment: YARA العراقي ORDERED CMP CBCD CRP UA Performed By: #### L 400.2010, L501.1800, L100.0100, L501.6710, M100.651 ####[facility] [address] [place], [address] Neutrophils/100 WBC (Bld) 78.0 % High 47-70 [facility] Comment on above: Order Comment: YARA العراقي ORDERED CMP CBCD CRP UA Performed By: #### L 400.2010, L501.1800, L100.0100, L501.6710, M100.651 ####[facility] [address] [place], [address] Nucleated RBC (Bld) [#/Vol] 0 10*3/uL Normal 0-5 [facility] Comment on above: Order Comment: YARA العراقي ORDERED CMP CBCD CRP UA Performed By: #### L 400.2010, L501.1800, L100.0100, L501.6710, M100.651 ####[facility] [address] [place], [address] Platelet mean volume (Bld) [Entitic vol] 9.3 fL Normal 6.2-12.0 [facility] Comment on above: Order Comment: YARA العراقي ORDERED CMP CBCD CRP UA Performed By: #### L 400.2010, L501.1800, L100.0100, L501.6710, M100.651 ####[facility] [address] [place], [address] Platelets (Bld) [#/Vol] 534 10*3/uL High 150-450 [facility] Comment on above: Order Comment: YARA العراقي ORDERED CMP CBCD CRP UA Performed By: #### L 400.2010, L501.1800, L100.0100, L501.6710, M100.651 ####[facility] [address] [place], [address] RBC (Bld) [#/Vol] 3.20 10*6/uL Low 4.2-5.4 [facility] Comment on above: Order Comment: YARA العراقي ORDERED CMP CBCD CRP UA Performed By: #### L 400, L501.1800, L100.0100, L501.6710, M100.651 ####[facility] [address] [place], [address] RDW SD 48.0 fl High 35.1-43.9 [facility] Comment on above: Order Comment: YARA العراقي ORDERED CMP CBCD CRP UA Performed By: #### L 400, L501.1800, L100.0100, L501.6710, M100.651 ####[facility] [address] [place], [address] WBC (Bld) [#/Vol] 9.6 10*3/uL Normal 4.4-11.0 [facility] Comment on above: Order Comment: YARA العراقي ORDERED CMP CBCD CRP UA Performed By: #### L 400, L501.1800, L100.0100, L501.6710, M100.651 ####[facility] [address] [place], [address] CRPon 06-03-2024 C-REACTIVE PROT 136.00 mg/L High 0.0-3.0 [facility] Comment on above: Order Comment: YARA العراقي ORDERED CMP CBCD CRP UA Result Comment: C-Re active Protein (CRP) provides useful information for the diagnosis, therapy and monitoring of inflammatory processes and associated diseases. For the evaluation of Relative Risk for Cardiovascular Disease, a High Sensitivity CRP (HSCRP) should be ordered. Performed By: #### L 400.2011, L501.1800, L100.0100, L501.6710, M100.651 ####[facility] [address] [place], [address] Eosinophil percentageOrdered By: Dejan Ferrara on 06-03-2024 Eosinophils/100 WBC (Bld) 0.7 % 0-5 [facility] Erythrocyte distribution wid th (RBC) [Ratio]Ordered By: Dejan Ferrara on 06-03-2024 Erythrocyte distribution width (RBC) [Entitic vol] 48.0 fL High 35.1-43.9 [facility] Erythrocyte distribution wid th ratioOrdered By: Dejan Ferrara on 06-03-2024 Erythrocyte distribution width (RBC) [Ratio] 13.7 % 11.6-14.6 [facility] Glucose Ql (U)Ordered By: St carol Ferrara on 06-03-2024 Urine Glucose (UA) Normal mg/dl Normal [facility] Hematocrit Auto (Bld) [Volum e fraction]Ordered By: Dejan Ferrara on 06-03-2024 Hematocrit (Bld) [Volume fraction] 30.5 % Low 37-47 [facility] Hemoglobin measurementOrdere d By: Dejan Ferrara on 06-03-2024 Hemoglobin (Bld) [Mass/Vol] 9.8 g/dL Low 12.0-15.0 [facility] Immature granulocytes/100 WB C Auto (Bld)Ordered By: Dejan Ferrara on 06-03-2024 Immature granulocytes/100 WBC (Bld) 0.500 % 0.0-0.9 [facility] Comment on above: IG% - Immature Granu locytes (promyelocytes, myelocytes and metamyelocytes) > 1% indicates that a LEFT SHIFT is Present. Ketones Test strip Ql (U)Ord ered By: Dejan Ferrara on 06-03-2024 Ketones Ql (U) Negative Negative [facility] L3410.9999on 06-03-2024 [facility] Misc. COMMENT Normal . [facility] Comment on above: Order Comment: [id number] 1 WOUND CULTURE Result Comment: Test Ordered: [id number] Anaerobic/Aerobic/Gram Stain Anaerobic Culture Note: CB Final report Reference Range: . Result 1 Comment CB Reference Range: . No anaerobes recovered. Aerobic Culture Note: [A ] CB Final report Reference Range: . Result 1 Comment [A ] CB Reference Range: . Staphylococcus epidermidis Based on susceptibility to oxacillin this isolate would be susceptible to: *Penicillinase-stable penicillins, such as: Cloxacillin, Dicloxacillin, Nafcillin *Beta-lactam combination agents, such as: Amoxicillin-clavulanic acid, Ampicillin-sulbactam, Piperacillin-tazobactam *Oral cephems, such as: Cefaclor, Cefdinir, Cefpodoxime, Cefprozil, Cefuroxime, Cephalexin, Loracarbef *Parenteral cephems, such as: Cefazolin, Cefepime, Cefotaxime, Cefotetan, Ceftaroline, Ceftizoxime, Ceftriaxone, Cefuroxime *Carbapenems, such as: Doripenem, Ertapenem, Imipenem, Meropenem Most isolates of Staphylococcus sp. produce a beta- lactamase enzyme rendering them resistant to penicillin. Please contact the laboratory if penicillin is being considered for therapy. Recovered from broth only. Antimicrobial Susceptibility Comment CB Reference Range: . S = Susceptible; I = Intermediate; R = Resistant P = Positive; N = Negative MICS are expressed in micrograms per mL Antibiotic RSLT#1 RSLT#2 RSLT#3 RSLT#4 Ciprofloxacin S Clindamycin S Erythromycin S Gentamicin S Levofloxacin S Linezolid S Moxifloxacin S Oxacillin S Quinupristin/Dalfopristin S Rifampin S Tetracycline S Trimethoprim/Sulfa S Vancomycin S Gram Stain Result Note: CB Final report Reference Range: . Result 1 Comment CB Reference Range: . Many white blood cells. Result 2 Note: CB No organisms seen Reference Range: . Performed at: - [facility] [id number] Retail Service Technician: Sidney Melo PhD, Phone: [phone] Performed By: #### L 3410.9999 #### [facility] [address] [place], [address] Lymphocytes Auto (Unsp spec) [#/Vol]Ordered By: Dejan Ferrara on 06-03-2024 Lymphocytes (Bld) [#/Vol] 1.32 10*3/uL 0.83-4.51 [facility] Lymphocytes/100 WBC Auto (Un sp spec)Ordered By: Dejan Ferrara on 06-03-2024 Lymphocytes/100 WBC (Bld) 13.7 % Low 19-41 [facility] MCV (mean corpuscular volume ) determinationOrdered By: Dejan Ferrara on 06-03-2024 MCV (RBC) [Entitic vol] 95.3 fL 81-99 [facility] MRSA screenOrdered By: Jose Ferrara on 06-03-2024 Nasal Screen MRSA/MSSA [facility] Magnesiumon 06-03-2024 Magnesium [Mass/Vol] 2.2 mg/dL Normal 1.6-2.6 [facility] Comment on above: Performed By: #### L 501.9520, L501.5200 ####[facility] [address] [place], [address] Magnesium measurementOrdered By: Clayton Smith on 06-03-2024 Magnesium [Mass/Vol] 2.2 mg/dL 1.6-2.6 [facility] Mean corpuscular hemoglobin (MCH) determinationOrdered By: Dejan Ferrara on 06-03-2024 MCH (RBC) [Entitic mass] 30.6 pg 27.0-32.0 [facility] Mean corpuscular hemoglobin concentration (MCHC) determinationOrdered By: Dejan Ferrara on 06-03-2024 MCHC (RBC) [Mass/Vol] 32.1 g/dL 32-36 [facility] Mean platelet volume determi nationOrdered By: Dejan Ferrara on 06-03-2024 Platelet mean volume (Bld) [Entitic vol] 9.3 fL 6.2-12.0 [facility] Monocyte percentageOrdered B y: Dejan Ferrara on 06-03-2024 Monocytes/100 WBC (Bld) 6.7 % 0-10 [facility] Neutrophil percentageOrdered By: Dejan Ferrara on 06-03-2024 Neutrophils/100 WBC (Bld) 78.0 % High 47-70 [facility] Nitrite Test strip Ql (U)Ord ered By: Dejan Ferrara on 06-03-2024 Nitrite Ql (U) Negative Negative [facility] Nucleated red blood cell per centageOrdered By: Dejan Ferrara on 06-03-2024 Nucleated RBC/100 WBC (Bld) [Ratio] 0 % 0-5 [facility] Platelet countOrdered By: St carol Ferrara on 06-03-2024 Platelets (Bld) [#/Vol] 534 10*3/uL High 150-450 [facility] Protein Test strip Ql (U)Ord ered By: Dejan Ferrara on 06-03-2024 Protein Ql (U) Negative Negative [facility] RBC Auto (Bld) [#/Vol]Ordere d By: Dejan Ferrara on 06-03-2024 RBC (Bld) [#/Vol] 3.20 10*6/uL Low 4.2-5.4 [facility] Serum or plasma albumin leo urement (mass/volume)Ordered By: Dejan Ferrara on 06-03-2024 Albumin [Mass/Vol] 2.9 g/dL Low 3.2-5.0 [facility] TSH QnOrdered By: Clayton Smith on 06-03-2024 Thyroid Stimulating Hormone (TSH) 1.160 uIU/mL 0.358-3.740 [facility] Thyroid Stim Hormone (TSH)on 06-03-2024 TSH 1.160 uIU/mL Normal 0.358-3.740 [facility] Comment on above: Performed By: #### L 501.4466, L501.5200 ####[facility] [address] [place], [address] Urinalysis, Routine (Dipstic k)on 06-03-2024 BILIRUBIN URINE Negative Normal Negative [facility] Comment on above: Order Comment: YARA العراقي ORDERED CMP CBCD CRP UACLEAN CATCH Performed By: #### L 400.2010, L501.1800, L100.0100, L501.6710, M100.651 ####[facility] [address] [place], [address] Clarity (U) Clear Normal Clear [facility] Comment on above: Order Comment: YARA العراقي ORDERED CMP CBCD CRP UACLEAN CATCH Performed By: #### L 400.2010, L501.1800, L100.0100, L501.6710, M100.651 ####[facility] [address] [place], [address] Color (U) Yellow Normal Yellow [facility] Comment on above: Order Comment: YARA العراقي ORDERED CMP CBCD CRP UACLEAN CATCH Performed By: #### L 400.2010, L501.1800, L100.0100, L501.6710, M100.651 ####[facility] [address] [place], [address] GLUCOSE, UR Normal Normal Normal [facility] Comment on above: Order Comment: YARA العراقي ORDERED CMP CBCD CRP UACLEAN CATCH Performed By: #### L 400.2010, L501.1800, L100.0100, L501.6710, M100.651 ####[facility] [address] [place], [address] KETONE UR Negative Normal Negative [facility] Comment on above: Order Comment: YARA العراقي ORDERED CMP CBCD CRP UACLEAN CATCH Performed By: #### L 400.2010, L501.1800, L100.0100, L501.6710, M100.651 ####[facility] [address] [place], [address] LEUK ESTERASE Negative Normal Negative [facility] Comment on above: Order Comment: YARA العراقي ORDERED CMP CBCD CRP UACLEAN CATCH Performed By: #### L 400.2010, L501.1800, L100.0100, L501.6710, M100.651 ####[facility] [address] [place], [address] Nitrite Ql (U) Negative Normal Negative [facility] Comment on above: Order Comment: YARA العراقي ORDERED CMP CBCD CRP UACLEAN CATCH Performed By: #### L 400.2010, L501.1800, L100.0100, L501.6710, M100.651 ####[facility] [address] [place], [address] OCCULT BLOOD-UR 10 /ul Abnormal Negative [facility] Comment on above: Order Comment: YARA العراقي ORDERED CMP CBCD CRP UACLEAN CATCH Performed By: #### L 400.2010, L501.1800, L100.0100, L501.6710, M100.651 ####[facility] [address] [place], [address] pH UR 7.0 Normal 5.0 - 8.0 [facility] Comment on above: Order Comment: YARA العراقي ORDERED CMP CBCD CRP UACLEAN CATCH Performed By: #### L 400.2010, L501.1800, L100.0100, L501.6710, M100.651 ####[facility] [address] [place], [address] PROT DIPSTX Negative Normal Negative [facility] Comment on above: Order Comment: YARA العراقي ORDERED CMP CBCD CRP UACLEAN CATCH Performed By: #### L 400.2010, L501.1800, L100.0100, L501.6710, M100.651 ####[facility] [address] [place], [address] SP.GR. DIPSTX 1.010 Normal 1.002-1.030 [facility] Comment on above: Order Comment: YARA العراقي ORDERED CMP CBCD CRP UACLEAN CATCH Performed By: #### L 400.2010, L501.1800, L100.0100, L501.6710, M100.651 ####[facility] [address] [place], [address] UROBILI Normal Normal Normal [facility] Comment on above: Order Comment: YARA العراقي ORDERED CMP CBCD CRP UACLEAN CATCH Performed By: #### L 400.2010, L501.1800, L100.0100, L501.6710, M100.651 ####[facility] [address] [place], [address] Urine blood detectionOrdered By: Dejan Ferrara on 06-03-2024 Urine Occult Blood 10 /ul High Negative [facility] Urine clarityOrdered By: Nirmal Ferrara on 06-03-2024 Clarity (U) Clear Clear [facility] Urine color determinationOrd ered By: Dejan Ferrara on 06-03-2024 Color (U) Yellow Yellow [facility] Urine leukocyte esterase det ection by dipstickOrdered By: Dejan Ferrara on 06-03-2024 Leukocyte esterase Test strip Ql (U) Negative Negative [facility] Urine pHOrdered By: Dejan sigala on 06-03-2024 pH (U) 7.0 [pH] 5.0 - 8.0 [facility] Urine specific gravity measu rementOrdered By: Dejan Ferrara on 06-03-2024 Specific gravity (U) [Rel density] 1.010 1.002-1.030 [facility] Urobilinogen Ql (U)Ordered B y: Dejan Ferrara on 06-03-2024 Urine Urobilinogen Normal mg/dl Normal [facility] White blood cell (WBC) count Ordered By: Dejan Ferrara on 06-03-2024 WBC (Bld) [#/Vol] 9.6 10*3/uL 4.4-11.0 [facility] Body Fluid Cell Count+Diffon 05-30-2024 PATH COMM/BF Reviewed Normal [facility] Comment on above: Order Comment: RIGHT SHOULDER Result Comment: Nega tive for malignant cells. ACUTE INFLAMMATION. Dante Aragon M.D. 05/30/24 AMENDED REPORT 05/30/24 1618 PATH COMM/BF previously reported as: May follow Performed By: #### L 200.0200 ####[facility] [address] [place], [address] Appearance (Body fld)Ordered By: Dejan Ferrara on 05-27-2024 Body Fluid Appearance TURBID [facility] Body fluid mononuclear cell countOrdered By: Dejan Ferrara on 05-27-2024 Body Fluid Mononuclear WBCs [facility] Comment on above: Test not performed Cells counted Molgen (Bld/Ti ss) [#]Ordered By: Dejan Ferrara on 05-27-2024 Body Fluid Total Cells Counted [facility] Comment on above: Test not performedSP ECIMEN WAS QNS FOR CELL COUNTDIFF WAS PERFORMED Color (Body fld)Ordered By: Dejan Ferrara on 05-27-2024 Body Fluid Color RED [facility] Lymphocytes/100 WBC (Body fl d)Ordered By: Dejan Ferrara on 05-27-2024 Body Fluid Lymphocytes 2 % [facility] Mononuclear cells/100 WBC (B alec fld)Ordered By: Dejan Ferrara on 05-27-2024 Body Fluid Mononuclear WBCs (%) [facility] Comment on above: Test not performed No Panel InformationOrdered By: Dejan Ferrara on 05-27-2024 Body Fluid Comment 2 SEE COMMENT [facility] Miscellaneous Test COMMENT . [facility] Comment on above: Test Ordered: [id number] Anaerobic/Aerobic/Gram StainAnaerobic Culture Note: CB Final report Reference Range: .Result 1 Comment CB Reference Range: .No anaerobes recovered.Aerobic Culture Note: [A ] CB Final report Reference Range: .Result 1 Comment [A ] CB Reference Range: .Staphylococcus epidermidisBased on susceptibility to oxacillin this isolate would besusceptible to:*Penicillinase-stable penicillins, such as: Cloxacillin, Dicloxacillin, Nafcillin*Beta-lactam combination agents, such as: Amoxicillin-clavulanic acid, Ampicillin-sulbactam, Piperacillin-tazobactam*Oral cephems, such as: Cefaclor, Cefdinir, Cefpodoxime, Cefprozil, Cefuroxime, Cephalexin, Loracarbef*Parenteral cephems, such as: Cefazolin, Cefepime, Cefotaxime, Cefotetan, Ceftaroline, Ceftizoxime, Ceftriaxone, Cefuroxime*Carbapenems, such as: Doripenem, Ertapenem, Imipenem, MeropenemMost isolates of Staphylococcus sp. produce a beta-lactamase enzyme rendering them resistant to penicillin.Please contact the laboratory if penicillin is beingconsidered for therapy.Recovered from broth only.Antimicrobial Susceptibility Comment CB Reference Range: . S = Susceptible; I = Intermediate; R = Resistant P = Positive; N = Negative MICS are expressed in micrograms per mL Antibiotic RSLT#1 RSLT#2 RSLT#3 RSLT#4Ciprofloxacin SClindamycin SErythromycin SGentamicin SLevofloxacin SLinezolid SMoxifloxacin SOxacillin SQuinupristin/Dalfopristin SRifampin STetracycline STrimethoprim/Sulfa SVancomycin SGram Stain Result Note: CB Final report Reference Range: .Result 1 Comment CB Reference Range: .Many white blood cells.Result 2 Note: CB No organisms seen Reference Range: .Performed at: - [facility] [id number] Director: Sidney Melo PhD, Phone: [phone] Pathologist interpretation ( Body fld) [Interp]Ordered By: Dejan Ferrara on 05-27-2024 Body Fluid Pathologist Comment Reviewed [facility] Comment on above: Previous reported re sult: May follow Edited by: VENESSA on 05/30/24:1618Negative for malignant cells.ACUTE INFLAMMATION.Dante Aragon M.D. 05/30/24 AMENDED REPORT 05/30/24 1618 PATH COMM/BF previously reported as: May follow Polymorphonuclear (PMN) leuk ocyte countOrdered By: Dejan Ferrara on 05-27-2024 Body Fluid Polynuclear WBCs (%) [facility] Comment on above: Test not performed RBC (Body fld) [#/Vol]Ordere d By: Dejan Ferrara on 05-27-2024 [facility] Test not performed Segmented neutrophils (Body fld) [#/Vol]Ordered By: Dejan Ferrara on 05-27-2024 Body Fluid Neutrophils 98 % [facility] Specimen source Nom (Body fl d)Ordered By: Dejan Ferrara on 05-27-2024 Body Fluid Source OTHER [facility] Comment on above: SYN FLD RIGHT SHOULD ER WBC (Body fld) [#/Vol]Ordere d By: Dejan Ferrara on 05-27-2024 Body Fluid WBC [facility] Comment on above: Test not performed Body Fluid Polynuclear WBCs (#) [facility] Comment on above: Test not performed Orthopedic Visit Reporton Orthopedic Visit Report [facility] [address] [place] [address] OFFICE VISIT Date of Service: 05/26/24 MR#: [id number] Acct: [id number] Name: YARA LOYA Rep #: [id number] : 1950 Provider: Dr. Gama mathew MD Age/Sex: 73/F Location: [facility] [place] [facility] Status: Signed Intake Vital Signs 07/22/23 06:08 Height 4 ft 10 in Intake Visit Reasons: LEFT SHOULDER Chief Complaint: Left Shoulder Pain Accompanied by: Self Is patient in pain?: Yes Pain scale (1-10): 8 Allergies grass pollen Allergy (Intermediate, Verified 05/26/24 09:45) sinus issues Medications ???Medication ???Instructions ???Recorded ???Confirmed ???Type cholecalciferol (vitamin D3) 125 125 mcg PO DAILY supplement 02/15/21 05/26/24 History mcg (5,000 unit) capsule biotin 10,000 mcg capsule 10,000 mcg PO DAILY 05/19/23 05/26/24 History prednisone 10 mg tablet 10 mg PO PRN 05/19/23 05/26/24 History acetaminophen 500 mg tablet 1,000 mg PO Q8 PRN pain 07/13/23 05/26/24 History turmeric (bulk) 95 % powder 1 ea miscellaneous DAILY 07/13/23 05/26/24 History (Curcumin) levothyroxine 25 mcg tablet mcg PO 04/12/24 05/26/24 History morphine 15 mg tablet,extended mg PO 05/26/24 05/26/24 History release Have you fallen in the past year?: No PFSH Medical History Primary osteoarthritis, right shoulder Right shoulder pain Rheumatoid arthritis Primary osteoarthritis, left shoulder Bleeding tendency Fibromyalgia Muscular pain Shortness of breath Wears dentures Post-menopausal History of steroid therapy Constipation Former smoker History of pain when walking Knee fracture, right Patellar fracture Anemia Health care maintenance Chronic back pain Bilateral knee pain Osteoporosis Seasonal allergies Wears glasses Osteoporosis Osteoarthritis Headache, migraine Back pain Arthritis Surgical History History of arthroplasty History of esophagogastroduodenosco py (EGD) Hx of total hip arthroplasty Hx of neck surgery Hx of hemorrhoidectomy History of back surgery History of hip replacement, total S/P cervical spinal fusion S/P cervical spinal fusion H/O shoulder replacement Family History Father Hypertension Arthritis CVA (cerebral vascular accident) Mother CVA (cerebral vascular accident) Hypertension Alcoholism Social History Smoking Status: Former smoker alcohol intake: never substance use type: does not use what type of physical activity do you participate in: walking frequency: daily HPI LEFT SHOULDER Details: This documentation accurately reflects the service provided and the decisions made by me, Dr. Gama Stout MD 05/26/24 0108. Part of today???s visit was documented by [ ], acting as scribe. YARA LOYA is a 73 year old F here today for 5 days hx of right shoulder swelling and a mass superor the shoulder. painful. red and warm but no fevers or chills. no drainage. There was a recent blood work on 05/23/2024 3 days ago with blood cell count 15 neutrophils 93% glucose 106 There is also CRP 05/23/24 Dr. Ferrara total shoulder 1. [employer] Equinoxe cage cemented glenoid small alpha curve. 2. [employer] Equinoxe humeral head 44 x 17 mm short. 3. [employer] Equinoxe 0 mm #1 replicator plate in fixed angle. 4. [employer] Equinoxe humeral stem Press-Fit, size 13 mm. Ortho Exam General General: Yes no acute distress Neurologic: Yes alert and Yes oriented x3 Psychologic: Yes reasonable and appropriate Right Shoulder Skin/Wound: Yes CDI, No ecchymosis, Yes erythema and Yes swelling (superior moderate size swelling fluctuant) SHOULDER: full FE, mild pain with motion. Supplemental Info X-rays taken 4 views the right shoulder again the total shoulder is no change the position no obvious loosening or lucent lines Coding Level of Care Code Off vis,est,level 3 Diagnoses Primary osteoarthritis, right shoulder M19.011 Assessment and Plan Assessment and Plan (1) Primary osteoarthritis, right shoulder: Status: Acute Plan: 73-year-old female with 5 days of redness pain and swelling about the right shoulder elevated white blood cell count and CRP concerning features for infected total shoulder arthroplasty on the right side. I reached out directly to Dr. Ferrara as well as his clinical assistant professor of nursing they will try to get her in for an appointment today for assessment he is just currently in the surgery center at their office just down the road. Patient aware and phone up to date. Orders: Orders Shoulder min 2 Views Today M19.011 - Primary osteoarthritis, right sh (more content not included)... Normal [facility] Shoulder min 2 Viewson 05-26 Shoulder min 2 Views [facility] [address] [place] [address] Shoulder min 2 Views MR#: [id number] Acct: [id number] Name: YARA LOYA Rep #: [id number] : 1950 F 73 From: Nathen Neville MD PCP: AUSTIN Woodward Status: DEP AMB Study: Shoulder min 2 Views Date of Exam: 05/26/24 Exam# [id number] Ordering Dr: Gama Stout MD [id number] STUDY: X-RAY - RIGHT SHOULDER REASON FOR EXAM: Female, 73 years old. Painful shoulder and swelling. TECHNIQUE: 4 views of the right shoulder. COMPARISON: Right shoulder radiographs dated 04/12/2024. FINDINGS: There is an unchanged right shoulder arthroplasty in place. There is normal alignment with no periprosthetic fracture. There is unchanged hypertrophic acromioclavicular arthrosis. Normal acromion. The soft tissue structures are unremarkable. Normal visualized pulmonary apex. RAD/Shoulder min 2 Views IMPRESSION: Unchanged right shoulder arthroplasty, with no periprosthetic fracture. Unchanged hypertrophic acromioclavicular arthrosis. Electronically Signed: Nathen Neville MD at 14:27 EST Reading Location ID and State: [facility] / [place] , Service support , CC: CARMENC Krystin العراقي; Dr. Gama Stout MD Visual C Developer: Signed Normal [facility] SCRN MAMM (CAD)W/NANDA BILATo n 04-15-2024 SCRN MAMM (CAD)W/NANDA BILAT [facility] [address] [place] [id number] SCRN MAMM (CAD)W/NANDA BILAT MR#: [id number] Acct: [id number] Name: YARA LOYA Rep #: [id number] : 1950 F 73 From: Naveed carvajal MD PCP: AUSTIN Woodward Status: REG CLI Study: SCRN MAMM (CAD)W/NANDA BILAT Date of Exam: 04/03 07/25 Exam# [id number] Ordering Dr: Krystin العراقيC [id number] MAMMOGRAPHY - BILATERAL SCREENING REASON FOR EXAM: Female, 73 years old. Routine annual screening examination. PERTINENT HISTORY: Non-contributory. TECHNIQUE: Digital bilateral breast nanda (3D mammographic acquisition) in the CC and MLO projections. 2-D mediolateral oblique (MLO) and craniocaudad (CC) views of both breasts were obtained. CAD: Full Field Digital Mammography with Computer Added Detection was performed. COMPARISON: Comparison is made with prior study April 14, 2023 and March 29, 2021. FINDINGS: Breast Composition: The breasts are almost entirely fatty. There are no dominant masses or suspicious calcifications. Stable bilateral secretory calcifications. No other significant abnormalities are identified. There has been no significant change since the prior study. BI/SCRN MAMM (CAD)W/NANDA BILAT IMPRESSION: Stable bilateral screening mammogram. Yearly follow-up mammogram recommended. (A) ASSESSMENT CATEGORY: BIRADS Category 2: Benign. A letter regarding these results will be sent to the patient by the facility within 30 days. Approximately 10% of breast cancers are not detected by mammography. A normal mammogram should not delay biopsy of a clinically suspicious abnormality. [id number] Electronically Signed: Naveed Shoemaker MD at 12:38 EST , CC: AUSTIN العراقي Visual C Developer: Signed Normal [facility] Orthopedic Visit Reporton Orthopedic Visit Report [facility] [address] [place] [address] OFFICE VISIT Date of Service: 04/12/24 MR#: [id number] Acct: [id number] Name: YARA LOYA Rep #: [id number] : 1950 Provider: Dr. Gama mathew MD Age/Sex: 73/F Location: [facility] [place] Status: Signed Intake Vital Signs 07/22/23 06:08 Height 4 ft 10 in Intake Visit Reasons: RIGHT SHOULDER Accompanied by: Self Is patient in pain?: Yes Pain scale (1-10): 9 Allergies grass pollen Allergy (Intermediate, Verified 04/12/24 10:55) sinus issues Medications ???Medication ???Instructions ???Recorded ???Confirmed ???Type cholecalciferol (vitamin D3) 125 125 mcg PO DAILY supplement 02/15/21 04/12/24 History mcg (5,000 unit) capsule biotin 10,000 mcg capsule 10,000 mcg PO DAILY 05/19/23 04/12/24 History oxycodone myristate 13.5 mg 13.5 mg PO BID 05/19/23 04/12/24 History capsule sprinkle extend release 12hr(DON'T CRUSH) (Xtampza ER) prednisone 10 mg tablet 10 mg PO PRN 05/19/23 04/12/24 History acetaminophen 500 mg tablet 1,000 mg PO Q8 PRN pain 07/13/23 04/12/24 History turmeric (bulk) 95 % powder 1 ea miscellaneous DAILY 07/13/23 04/12/24 History (Curcumin) levothyroxine 25 mcg tablet mcg PO 04/12/24 04/12/24 History Have you fallen in the past year?: No PFSH Medical History Primary osteoarthritis, right shoulder Right shoulder pain Rheumatoid arthritis Primary osteoarthritis, left shoulder Bleeding tendency Fibromyalgia Muscular pain Shortness of breath Wears dentures Post-menopausal History of steroid therapy Constipation Former smoker History of pain when walking Knee fracture, right Patellar fracture Anemia Health care maintenance Chronic back pain Bilateral knee pain Osteoporosis Seasonal allergies Wears glasses Osteoporosis Osteoarthritis Headache, migraine Back pain Arthritis Surgical History History of arthroplasty History of esophagogastroduodenosco py (EGD) Hx of total hip arthroplasty Hx of neck surgery Hx of hemorrhoidectomy History of back surgery History of hip replacement, total S/P cervical spinal fusion S/P cervical spinal fusion H/O shoulder replacement Family History Father Hypertension Arthritis CVA (cerebral vascular accident) Mother CVA (cerebral vascular accident) Hypertension Alcoholism Social History Smoking Status: Former smoker alcohol intake: never substance use type: does not use what type of physical activity do you participate in: walking frequency: daily HPI RIGHT SHOULDER Details: This documentation accurately reflects the service provided and the decisions made by me, Dr. Gama Stout MD 04/12/24 4136. Part of today???s visit was documented by [ ], acting as scribe. YARA LOYA is a 73 year old F here today for R shoulder pain. Hx of L RTSA. Patient had a right shoulder replacement by Dr. Ferrara she thinks about 4 or 5 years ago. No problems with no infection symptoms or signs. Over the last 3 weeks the shoulder has been a little more painful with pain about the trapezius into the neck and an earache feels like the ear is plugged. Patient has a history of a least 2 or 3 cervical spine fusion surgeries with 14 rods and screws. Has had a history of carpal tunnel syndrome bilaterally moderate signs of that on the nerve studies but done by Dr. Almanzar couple years ago now patient feels like the hands are numb on both sides. Supplemental Info R shoulder xr 4 view -shows signs of anatomic total shoulder arthroplasty on the right side. The humeral head component is a little bit proud or overstuffed in my opinion. The glenoid baseplate has metal backing appears well fixated no obvious signs of loosening. Coding Level of Care Code Off vis,est,level 4 Diagnoses Right shoulder pain M25.511 Primary osteoarthritis, right shoulder M19.011 Assessment and Plan Assessment and Plan (1) Right shoulder pain: Status: Acute Plan: YARA LOYA is a 73 year old F here today for R shoulder pain. Hx of L RTSA. The right side there is a sign of well-placed although a bit overstuffed anatomic total shoulder arthroplasty Jose that appears to be functioning well with no signs of infection or loosening. I think some of the pain can come from bursitis of the shoulder although I would not recommend a cortisone injection due to concerns for infection. Can try rest ice anti-inflammatories physical therapy and made referral for that as well as massage for muscle tension release in the neck. I also suggested nerve conduction studies this could be coming (more content not included)... Normal [facility] Shoulder min 2 Viewson 04-12 Shoulder min 2 Views [facility] [address] [place] [address] Shoulder min 2 Views MR#: [id number] Acct: [id number] Name: YARA LOYA Rep #: [id number] : 1950 F 73 From: Cesar Diaz PCP: CARMEN WoodwardC Status: DEP AMB Study: Shoulder min 2 Views Date of Exam: 04/12/24 Exam# [id number] Ordering Dr: Gama Stout MD [id number] EXAM: XR RIGHT SHOULDER COMPLETE, 2 OR MORE VIEWS CLINICAL INDICATION: pain TECHNIQUE: Two or more views of the right shoulder. COMPARISON: No relevant prior studies available. FINDINGS: BONES/JOINTS: Right total shoulder arthroplasty. Components appear well seated. No acute fracture. No subluxation. Normal alignment. No sclerotic or destructive changes observed. SOFT TISSUES: Unremarkable. No soft tissue swelling or gas. No radiopaque foreign body. RAD/Shoulder min 2 Views IMPRESSION: No acute shoulder abnormality. Electronically Signed: Cesar Rivera MD at 4:15 EST , CC: AUSTIN العراقي; Dr. Gama Stout MD Visual C Developer: Signed Normal [facility] Thyroidon 03-22-2024 Thyroid [facility] [address] [place], [place] [id number] Thyroid MR#: [id number] Acct: [id number] Name: YARA LOYA Rep #: [id number] : 1950 F 73 From: Garrison Zimmerman MD PCP: AUSTIN Woodward Status: REG CLI Study: Thyroid Date of Exam: 03/22/24 Exam# [id number] Ordering Dr: Krystin العراقي [id number] STUDY: THYROID ULTRASOUND REASON FOR EXAM: Female, 73 years old. Thyroid Nodule TECHNIQUE: Ultrasound evaluation of the thyroid was performed with real-time and static guardado-scale imaging. COMPARISON: None. FINDINGS: RIGHT LOBE: The right lobe of the thyroid gland measures 4.1 x 1.2 x 1.5 cm. There is a homogeneous echotexture. There are no demonstrated solid, cystic or complex lesions. LEFT LOBE: The left lobe of the thyroid gland measures 3.2 x 1.2 x 1.1 cm. There is a homogeneous echotexture. There are no demonstrated solid, cystic or complex lesions. ISTHMUS: The isthmus measures 3 mm thick. . The regional lymph nodes are normal. US/Thyroid IMPRESSION: Normal ultrasound examination of the thyroid. Electronically Signed: Garrison Zimmerman MD at 13:03 EST , CC: AUSTIN العراقي Visual C Developer: Signed Normal [facility] Chest PA and Lateralon 03-01 Chest PA and Lateral [facility] [address] [place] [address] Chest PA and Lateral MR#: [id number] Acct: [id number] Name: YARA LOYA Rep #: [id number] : 1950 F 73 From: Ervin Diaz PCP: AUSTIN Woodward Status: REG CLI Study: Chest PA and Lateral Date of Exam: 03/01/24 Exam# [id number] Ordering Dr: Krystin العراقي [id number] INDICATION: CXR PA and amp; LAT (41948) : chronic chest/rib pain bilateral; former -- Rib pain EXAMINATION/TECHNIQUE: X-RAY - XR Chest 2 Views COMPARISON: Prior study dated: 08/23/2021 FINDINGS: LINES/DEVICES: None. LUNGS: The lungs remain somewhat hyperinflated with COPD changes. No focal infiltrate is seen. No evidence of pleural effusions. MEDIASTINUM AND CARDIOVASCULAR STRUCTURES: Cardiac silhouette not enlarged. Central airways and mediastinal contour are unremarkable. BONES AND SOFT TISSUES: Postoperative changes in the lower cervical spine and bilateral shoulder arthroplasty are seen. RAD/Chest PA and Lateral IMPRESSION: No radiographic evidence of acute cardiopulmonary disease. Electronically Signed: Ervin Parks MD at 13:40 EDT , CC: AUSTIN العراقي Visual C Developer: Signed Normal [facility] Miscellaneous Lab Procedureo n 01-26-2024 [facility] [facility] Normal [facility] Comment on above: Order Comment: URINE [id number] Result Comment: [phone] 6+OXYCODONE-BUND (ng/mL) DRUG RESULT SCREEN CUTOFF ____ Amphetamines,Urine Negative ng/mL 1000 Amphetamine test includes Amphetamine and Methamphetamine. Barbiturates Negative ng/mL 200 Benzodiazepines Negative ng/mL 200 Cannabinoid Negative ng/mL 20 Cocaine (Metab) Negative ng/mL 300 Opiates Negative ng/mL 300 Opiates test includes Codeine, Morphine, Hydromorphone, Hydrocodone. Oxycodone/Oxymorphone,Urine POSITIVE ng/mL 300 Test includes Oxycodone and Oxymorphone. Oxycodone Negative 300 Oxymorphone POSITIVE Oxymorphone Conf, 708 300 MS, UR TESTING PERFORMED AT [facility]. ORIGINAL REPORT ON FILE IN LAB CONTAINS ADDITIONAL TEST SITE INFORMATION. Performed By: #### L 505.5000, L801.1541 ####[facility] [address] [place], [place], [id number] Urine Drug Screen (VISTA)on 01-20-2024 AMPHETAMINES Negative Normal <1000 ng/mL [facility] Comment on above: Order Comment: MEDTO X RUN LOWEST TEST Performed By: #### L 505.5000, L801.1541 ####[facility] [address] [place], [address] BARBITIURATES Negative Normal < 200 ng/mL [facility] Comment on above: Order Comment: MEDTO X RUN LOWEST TEST Performed By: #### L 505.5000, L801.1541 ####[facility] [address] [place], [address] BENZODIAZIPINE Negative Normal < 200 ng/mL [facility] Comment on above: Order Comment: MEDTO X RUN LOWEST TEST Performed By: #### L 505.5000, L801.1541 ####[facility] [address] [place], [address] COCAINE Negative Normal < 300 ng/mL [facility] Comment on above: Order Comment: MEDTO X RUN LOWEST TEST Performed By: #### L 505.5000, L801.1541 ####[facility] [address] [place], [address] ECSTACY Negative Normal < 500 ng/mL [facility] Comment on above: Order Comment: MEDTO X RUN LOWEST TEST Performed By: #### L 505.5000, L801.1541 ####[facility] [address] [place], [address] METHADONE Negative Normal < 300 ng/mL [facility] Comment on above: Order Comment: MEDTO X RUN LOWEST TEST Performed By: #### L 505.5000, L801.1541 ####[facility] [address] [place], [address] OPIATES Negative Normal < 300 ng/mL [facility] Comment on above: Order Comment: MEDTO X RUN LOWEST TEST Performed By: #### L 505.5000, L801.1541 ####[facility] [address] [place], [address] PCP Negative Normal < 25 ng/mL [facility] Comment on above: Order Comment: MEDTO X RUN LOWEST TEST Performed By: #### L 505.5000, L801.1541 ####[facility] [address] [place], [address] THC Negative Normal < 50 ng/mL [facility] Comment on above: Order Comment: MEDTO X RUN LOWEST TEST Performed By: #### L 505.5000, L801.1541 ####[facility] [address] [place], [address] VISTA UDS PH 7 Normal [facility] Comment on above: Order Comment: MEDTO X RUN LOWEST TEST Performed By: #### L 505.5000, L801.1541 ####[facility] [address] [place], [address] CNOVon 12-15-2023 CNOV Office Visit ([facility] ) -------- YARA LOYA ([id number]) 1950 F Date Time Provider Department 12/15/23 10:00 AM NURSE AMERICO YUEN SELINA During your visit today, we recorded the following information about you: Yuliana Bagley RN 12/15/2023 10:21 AM Signed The patient is here for an injection of Prolia (First Injection) (Completed Evenity Therapy, last injection 11/02/23). Dose: 60 mg Route: Subcutaneous Lot# [id number] Expiration date 04/02/2026 Given without incident. Site: [...] and no reactions noted. Medication supplied by [facility] [employer]. Yuliana Bagley RN Allergies As of Date: 12/15/2023 Noted Allergy Reaction SEASONAL ALLERGIES 09/20/2013 14 - Other: See Comments Comments: sinus Date Reviewed: 12/15/2023 Reviewed by: Yuliana Bagley, GREGORIA - Fully Assessed Reason for Visit: Prolia [...] 09/20/2014 Visit Notes: >> Yuliana Bagley RN [facility] Dec 15, 2023 10:15 AM Status: Signed The patient is here for an injection of Prolia (First Injection) (Completed Evenity Therapy, last injection 11/02/23). Dose: 60 mg Route: Subcutaneous Lot# [id number] Expiration date 04/02/2026 Given without incident. Site: right arm Dr. Nelson present in clinic at time of injection. The date due for the next injection is in 6 months. DAVID: 10/27/23 NOV: Will need 10/2024 Insurance: Primary= Medicare, Secondary= O Tor[employer] (more content not included)... Normal [facility] Hortencia 12-15-2023 CNPN Telephone ([facility]) -------- YARA LOYA ([id number]) 1950 F Date Time Provider Department 12/15/23 [...] vitamin D 5000 5 days a week MD Bernice Painter Christina, RN 12/16/2023 4:02 PM Signed Called patient at [phone] and left a VM for patient to call the office back at [phone]. Please give message below. Patient is active on [email or web address], message sent to patient, keep open until message is read. Briseida Mayers 12/17/2023 3:57 PM Signed Patient called and the message below was relayed to her. Allergies As of Date: 12/15/2023 Noted Allergy Reaction SEASONAL ALLERGIES 09/20/2013 14 - Other: See Comments Comments: sinus Date Reviewed: 12/15/2023 Reviewed by: Yuliana Bagley RN - Fully Assessed Reason for Visit: Results [95] Order(s):VITAMIN D 25 HYDROXY [SQVITD] Order #: [id number] VITAMIN D 25 HYDROXY [SQVITD] Order #: [id number] Prescriptions as of 12/17/2023 - tiZANidine (ZANAFLEX) 2 mg tablet Take [...] Encounter Status:Closed by MILEY NELSON on 12/15/[address] [facility] 12-14-2023 CNPN Telephone ([facility]) -------- YARA LOYA ([id number]) 1950 Date Time Provider Department 12/14/23 MILEY NELSON ENDMED During your visit today, we recorded [...] Comments: sinus Date Reviewed: 11/02/2023 Reviewed by: Anne-Marie So, GREGORIA - Fully Assessed Reason for Visit: CAM [...] Encounter Status:Closed by MILEY NELSON on 12/14/23 [facility] 25-hydroxyvitamin D3 [Mass/V ol]on 12-02-2023 Vitamin D 25 Hydroxy 71.6 30.0 - 100.0 Cl [facility] CNOVon 11-02-2023 CNOV Office Visit ([facility] ) -------- YARA LOYA ([id number]) 1950 F Date Time Provider Department 11/02/23 10:00 AM NURSE [facility] [place] SELINA During your visit today, we recorded the following information about you: Anne-Marie So, GREGORIA 11/02/2023 10:25 AM Signed The patient is here for an injection of Evenity Injection #12 of 12 Dose: 210 mg (105 mg/1.17 mL X2). Route: Subcutaneous Lot# [id number] Expiration date 10/31/2025 [facility]: 94839-012-55 Given without incident. Site: Right arm Dr. Dougherty present in clinic at time of injection. Last injection is today. Patient will start Prolia in December,. Last Injection: 10/01/23 DAVID: 10/27/23 NOV: Needs 10/26 Insurance: Primary= Medicare, Secondary= [facility]-- No PA Required Labs: 03/13/23 Calcium 9.5, Vitamin D 74.1 DX: M81.0 CPT: J3111 DXA: 10/21/22 (T-Score -2.9 Left Forearm) Patient education was given by nurse. Patient tolerated Injection well, in NAD and no reactions noted. Medication supplied by [facility] So RN Allergies As of Date: 11/02/2023 Noted Allergy Reaction SEASONAL ALLERGIES 09/20/2013 14 - Other: See Comments Comments: sinus Date Reviewed: 11/02/2023 Reviewed by: Anne-Marie So, GREGORIA - Fully Assessed Reason for [...] 09/20/2014 Hyperlipidemia [E78.5] 09/20/2014 Visit Notes: >> Anne-Marie So RN Mon Nov 02, 2023 10:17 AM Status: Signed The patient is here for an injection of Evenity Injection #12 of 12 Dose: 210 mg (105 mg/1.17 mL X2). Route: Subcutaneous Lot# [id number] Expiration date 10/31/2025 [facility]: 79184-183-67 Given without incident. Site: Right arm Dr. Dougherty present in clinic at time of injection. Last injection is today. Patient will start Prolia in December,. Last Injection: 10/01/23 DAVID: 10/27/23 NOV: Needs 10/26 Insurance: Primary= Medicare, Seco (more content not included)... Normal [facility] 10-30-2023 CNPN Telephone (END[facility]) -------- YARA LOYA ([id number]) 1950 F Date Time Provider Department 10/30/23 LESLIE MONET During your visit today, we recorded the following information about you: Anne-Marie So RN 10/30/2023 11:07 AM Signed Patient is scheduled for an Evenity Injection on 11/02/23. Please place CAM order accordingly, standing order (just need one more). Thank you. Leslie Monet MD 11/02/2023 6:23 AM Signed Order placed Thank you HH Anne-Marie So RN 11/02/2023 9:15 AM Signed Closed Allergies As of Date: 10/30/2023 Noted Allergy Reaction SEASONAL ALLERGIES 09/20/2013 14 - Other: See Comments Comments: sinus Date Reviewed: 10/27/2023 Reviewed by: Kirsten Hall MA - Fully Assessed Reason for Visit: CAM Order [Other] Order(s):romosozumab-aqq g 210 mg injection (EVENITY)Disp: Rfl: Prescriptions as [...] 11/02/2023 11/02/2023 Route: SUBCUTANEOUS Encounter Status:Closed by ANNE-MARIE SO on 11/02/23 [facility] CNOVon 10-27-2023 CNOV Office Visit ([facility] ) -------- YARA LOYA ([id number]) 1950 F Date Time Provider Department 10/27/23 10:40 AM LESLIE MONET During your visit today, we [...] T12 fracture Treatment history (including any side effects/contraindication s): Prolia for 10 years then switched to [...] 12/14/14 DISCECTOMY ANT DCMPRN CORD CERVICAL 1 [facility] 12/14/14 DISCECTOMY ANT DCMPRN CORD CERVICAL EA [facility] 12/14/14 HEMORRHOID SURGERY HX 2013 PAST SURGICAL [...] contrast administ (more content not included)... Normal [facility] Hortencia 10-27-2023 RADHA Telephone ([employer]) -------- YARA LOYA ([id number]) 1950 F Date Time Provider Department 10/27/23 [...] insurance and your availability Thank you [facility] Anne-Marie So, GREGORIA 10/28/2023 10:52 AM Signed Patient [...] 09/20/2014 Hyperlipidemia [E78.5] 09/20/2014 Encounter Status:Closed by ANNE-MARIE SO on 10/28/23 Normal [facility] CCP IgG/IgA Abson 10-22-2023 CCP Antibodies IgG/IgA 1 units Normal 0-19 [facility] Comment on above: Order Comment: Perfo rmed at: [address] [id number] Retail Service Technician: Sidney Melo PhD, Phone: [phone] Result Comment: Nega tive <20 Weak positive 20 - 39 Moderate positive 40 - 59 Strong positive >59 Performed By: #### C CPIGGA #### [facility] RESULTS C-Reactive Proteinon 024 CRP [Mass/Vol] mg/L Normal <=9.9 [facility] Comment on above: Performed By: #### C RPR #### [facility] [address] [place], [place] [id number] Rheumatoid Factor (Quant)on 10-20-2023 Rheumatoid Factor <12 Normal <=13 [facility] Comment on above: Performed By: #### R F #### [facility] [address] [place], [place] [phone] CNOVon 10-01-2023 CNOV Office Visit ([facility] ) -------- YARA LOYA ([id number]) 1950 F Date Time Provider Department 10/01/23 10:00 AM NURSE AMERICO YUEN SELINA During your visit today, we recorded the following information about you: Anne-Marie So, RN 10/01/2023 10:20 AM Signed The patient is here for an injection of Evenity Injection #11 of 12 Dose: 210 mg (105 mg/1.17 mL X2). Route: Subcutaneous Lot# [id number] Expiration date 10/31/2025 [facility]: 51971-121-32 Given without incident. Site: Right arm Dr. [...] Medication supplied by [facility] So RN Allergies As of Date: 10/01/2023 Noted Allergy Reaction SEASONAL ALLERGIES 09/20/2013 14 - Other: See Comments Comments: sinus Date Reviewed: 10/01/2023 Reviewed by: Anne-Marie So RN - Fully Assessed Reason for [...] 09/20/2014 Hyperlipidemia [E78.5] 09/20/2014 Visit Notes: >> Anne-Marie So, GREGORIA Kathy October 01, 2023 10:16 AM Status: Signed The patient is here for an injection of Evenity Injection #11 of 12 Dose: 210 mg (105 mg/1.17 mL X2). Route: Subcutaneous Lot# [id number] Expiration date 10/31/2025 [facility]: 07716-033-01 Given without incident. Site: Right arm Dr. Nelson present in clinic at time of injection. The date due for the next injection is in 30 days. On or after 11/01/23. Last (more content not included)... Normal [facility] CNOVSPon 09-29-2023 CNOVS Visit (SP) Office ([facility]) -------- SHALINIYARA ([id number]) 1950 F Date Time Provider Department 09/29/23 [...] 29, 2023) HISTORY OF PRESENT ILLNESS: Yara Rivers Shalini is a 71 year old female referred [...] 12/14/14 DISCECTOMY ANT DCMPRN CORD CERVICAL 1 [facility] 12/14/14 DISCECTOMY ANT DCMPRN CORD CERVICAL EA [facility] 12/14/14 HEMORRHOID SURGERY HX 2014 PAST SURGICAL [...] tablet b (more content not included)... Normal [facility] Basic metabolic 2000 panelon 09-21-2023 Anion gap [Moles/Vol] 10 mmol/L Normal 9-18 [facility] Comment on above: Order Comment: Speci men Type: BLOOD SPECIMEN Ordering Facility: [facility] Address: [address] [place] [address] Performed By: #### 2 4321-2 #### [facility] CLIA [id number] [address] [place] [address] [place] Calcium [Mass/Vol] 9.3 mg/dL Normal 8.5-10.2 [facility] Comment on above: Order Comment: Speci men Type: BLOOD SPECIMEN Ordering Facility: [facility] Address: [address] [place] [address] Performed By: #### 2 4321-2 #### [facility] CLIA [id number] [address] [place] [address] [place] Chloride [Moles/Vol] 106 mmol/L High 97-105 [facility] Comment on above: Order Comment: Speci men Type: BLOOD SPECIMEN Ordering Facility: [facility] Address: [address] [place] [address] Performed By: #### 2 4321-2 #### [facility] CLIA [id number] [address] [place] [address] [place] CO2 [Moles/Vol] 25 mmol/L Normal 22-30 [facility] Comment on above: Order Comment: Speci men Type: BLOOD SPECIMEN Ordering Facility: [facility] Address: [address] [place] [address] Performed By: #### 2 4321-2 #### [facility] CLIA [id number] [address] [place] [address] [place] Creatinine [Mass/Vol] 0.87 mg/dL Normal 0.58-0.96 [facility] Comment on above: Order Comment: Speci men Type: BLOOD SPECIMEN Ordering Facility: [facility] Address: [address] [place] [address] Performed By: #### 2 4321-2 #### [facility] CLIA [id number] [address] [place] [address] [facility] [place] Creatinine and Glomerular filtration rate.predicted panel (S/P/Bld) 71 mL/min/1.73m??? Normal >=60 [facility] Comment on above: Order Comment: Speci men Type: BLOOD SPECIMEN Ordering Facility: [facility] Address: [address] [place] [address] Result Comment: July mated Glomerular Filtration Rate [...] GFR. Performed By: #### 2 4321-2 #### [facility] CLIA [id number] [address] [place] [address] [place] Glucose [Mass/Vol] 89 mg/dL Normal 74-99 [facility] Comment on above: Order Comment: Demarcus dye Type: BLOOD SPECIMEN Ordering Facility: [facility] Address: [address] [place] [address] Result Comment: The [place] Diabetes Association (ADA) provides guidance for cutoff [...] Standards of Medical Care in Diabetes 2016, [place] [employer]. Diabetes Care. 2016.39(Suppl 1). Performed By: #### 2 4321-2 #### [facility] CLIA [id number] [address] [place] [address] [place] Potassium [Moles/Vol] 4.6 mmol/L Normal 3.7-5.1 [facility] Comment on above: Order Comment: Demarcus dye Type: BLOOD SPECIMEN Ordering Facility: [facility] Address: [address] [place] [address] Performed By: #### 2 4321-2 #### [facility] CLIA [id number] [address] [place] [address] [place] Sodium [Moles/Vol] 141 mmol/L Normal 136-144 [facility] Comment on above: Order Comment: Demarcus dye Type: BLOOD SPECIMEN Ordering Facility: [facility] Address: [address] [id number] Performed By: #### 2 4321-2 #### [facility] CLIA [id number] [address] STATES [facility] Urea nitrogen [Mass/Vol] 17 mg/dL Normal - [facility] Comment on above: Order Comment: Speci men Type: BLOOD SPECIMEN Ordering Facility: [facility] Address: [address] [place] [address] Performed By: #### 2 4321-2 #### [facility] CLIA [id number] [address] [place] CBC W Auto Differential pane l (Bld)on 09-21-2023 Basophils (Bld) [#/Vol] 0.06 10*3/uL Normal <0.11 [facility] Comment on above: Order Comment: Speci men Type: BLOOD SPECIMEN Ordering Facility: [facility] Address: [address] [place] [address] Performed By: #### 5 7021-8 #### [facility] CLIA [id number] [address] STATES [facility] Basophils/100 WBC (Bld) 0.8 % Normal [facility] Comment on above: Order Comment: Speci men Type: BLOOD SPECIMEN Ordering Facility: [facility] Address: [address] [place] [address] Performed By: #### 5 7021-8 #### [facility] CLIA [id number] [address] Differential cell count method Nom (Bld) Auto Normal [facility] Comment on above: Order Comment: Speci men Type: BLOOD SPECIMEN Ordering Facility: [facility] Address: [address] [place] [address] Performed By: #### 5 7021-8 #### [facility] CLIA [id number] [address] [place] [address] [place] Eosinophils (Bld) [#/Vol] 0.15 10*3/uL Normal <0.46 [facility] Comment on above: Order Comment: Speci men Type: BLOOD SPECIMEN Ordering Facility: [facility] Address: [address] [place] [address] Performed By: #### 5 7021-8 #### [facility] CLIA [id number] [address] [place] [address] [place] Eosinophils/100 WBC (Bld) 2.1 % Normal [facility] Comment on above: Order Comment: Speci men Type: BLOOD SPECIMEN Ordering Facility: [facility] Address: [address] [place] [address] Performed By: #### 5 7021-8 #### [facility] CLIA [id number] [address] [place] [address] [place] Erythrocyte distribution width (RBC) [Ratio] 13.8 % Normal 11.5-15.0 [facility] Comment on above: Order Comment: Speci men Type: BLOOD SPECIMEN Ordering Facility: [facility] Address: [address] [place] [address] Performed By: #### 5 7021-8 #### [facility] CLIA [id number] [address] [place] Hematocrit (Bld) [Volume fraction] 33.0 % Low 36.0-46.0 [facility] Comment on above: Order Comment: Speci men Type: BLOOD SPECIMEN Ordering Facility: [facility] Address: [address] [place] [address] Performed By: #### 5 7021-8 #### [facility] CLIA [id number] [address] [place] Hemoglobin (Bld) [Mass/Vol] 10.6 g/dL Low 11.5-15.5 [facility] Comment on above: Order Comment: Speci men Type: BLOOD SPECIMEN Ordering Facility: [facility] Address: [address] [place] [address] Performed By: #### 5 7021-8 #### [facility] CLIA [id number] [address] [place] Immature granulocytes (Bld) [#/Vol] 0.03 10*3/uL Normal <0.10 [facility] Comment on above: Order Comment: Speci men Type: BLOOD SPECIMEN Ordering Facility: [facility] Address: [address] [place] [address] Performed By: #### 5 7021-8 #### [facility] CLIA [id number] [address] Immature granulocytes/100 WBC (Bld) 0.4 % Normal [facility] Comment on above: Order Comment: Speci men Type: BLOOD SPECIMEN Ordering Facility: [facility] Address: [address] [place] [address] Performed By: #### 5 7021-8 #### [facility] CLIA [id number] [address] OF [facility] Lymphocytes (Bld) [#/Vol] 1.35 10*3/uL Normal 1.00-4.00 [facility] Comment on above: Order Comment: Speci men Type: BLOOD SPECIMEN Ordering Facility: [facility] Address: [address] [place] [address] Performed By: #### 5 7021-8 #### [facility] CLIA [id number] [address] Lymphocytes/100 WBC (Bld) 18.7 % Normal [facility] Comment on above: Order Comment: Speci men Type: BLOOD SPECIMEN Ordering Facility: [facility] Address: [address] [place] [address] Performed By: #### 5 7021-8 #### [facility] CLIA [id number] [address] MCH (RBC) [Entitic mass] 32.8 pg Normal 26.0-34.0 [facility] Comment on above: Order Comment: Speci men Type: BLOOD SPECIMEN Ordering Facility: [facility] Address: [address] [place] [address] Performed By: #### 5 7021-8 #### [facility] CLIA [id number] [address] STATES OF [facility] MCHC (RBC) [Mass/Vol] 32.1 g/dL Normal 30.5-36.0 [facility] Comment on above: Order Comment: Speci men Type: BLOOD SPECIMEN Ordering Facility: [facility] Address: [address] [place] [address] Performed By: #### 5 7021-8 #### [facility] CLIA [id number] [address] [place] MCV (RBC) [Entitic vol] 102.2 fL High 80.0-100.0 [facility] Comment on above: Order Comment: Speci men Type: BLOOD SPECIMEN Ordering Facility: [facility] Address: [address] [place] [address] Performed By: #### 5 7021-8 #### [facility] CLIA [id number] [address] OF [place] Monocytes (Bld) [#/Vol] 0.52 10*3/uL Normal <0.87 [facility] Comment on above: Order Comment: Speci men Type: BLOOD SPECIMEN Ordering Facility: [facility] Address: [address] [place] [address] Performed By: #### 5 7021-8 #### [facility] CLIA [id number] [address] Monocytes/100 WBC (Bld) 7.2 % Normal [facility] Comment on above: Order Comment: Speci men Type: BLOOD SPECIMEN Ordering Facility: [facility] Address: [address] [place] [address] Performed By: #### 5 7021-8 #### [facility] CLIA [id number] [address] Neutrophils (Bld) [#/Vol] 5.11 10*3/uL Normal 1.45-7.50 [facility] Comment on above: Order Comment: Speci men Type: BLOOD SPECIMEN Ordering Facility: [facility] Address: [address] [place] [address] Performed By: #### 5 7021-8 #### [facility] CLIA [id number] [address] Neutrophils/100 WBC (Bld) 70.8 % Normal [facility] Comment on above: Order Comment: Speci men Type: BLOOD SPECIMEN Ordering Facility: [facility] Address: [address] [place] [address] Performed By: #### 5 7021-8 #### [facility] CLIA [id number] [address] [place] [address] [facility] [place] Nucleated RBC (Bld) [#/Vol] 10*3/uL Normal <0.01 [facility] Comment on above: Order Comment: Speci men Type: BLOOD SPECIMEN Ordering Facility: [facility] Address: [address] [place] [address] Performed By: #### 5 7021-8 #### [facility] CLIA [id number] [address] [place] Nucleated RBC/100 WBC (Bld) [Ratio] 0.0 /100 WBC Normal [facility] Comment on above: Order Comment: Speci men Type: BLOOD SPECIMEN Ordering Facility: [facility] Address: [address] [place] [address] Performed By: #### 5 7021-8 #### [facility] CLIA [id number] [address] [place] Platelet mean volume (Bld) [Entitic vol] 10.2 fL Normal 9.0-12.7 [facility] Comment on above: Order Comment: Speci men Type: BLOOD SPECIMEN Ordering Facility: [facility] Address: [address] [place] [address] Performed By: #### 5 7021-8 #### [facility] CLIA [id number] [address] [place] Platelets (Bld) [#/Vol] 275 10*3/uL Normal 150-400 [facility] Comment on above: Order Comment: Speci men Type: BLOOD SPECIMEN Ordering Facility: [facility] Address: [address] [place] [address] Performed By: #### 5 7021-8 #### [facility] CLIA [id number] [address] [place] RBC (Bld) [#/Vol] 3.23 10*6/uL Low 3.90-5.20 [facility] Comment on above: Order Comment: Speci men Type: BLOOD SPECIMEN Ordering Facility: [facility] Address: [address] [place], [place] [address] [address] Performed By: #### 5 7021-8 #### [facility] CLIA [id number] 1000 [place] [address] [place] WBC (Bld) [#/Vol] 7.22 10*3/uL Normal 3.70-11.00 [facility] Comment on above: Order Comment: Speci men Type: BLOOD SPECIMEN Ordering Facility: [facility] Address: [address] [facility] [place] [address] Performed By: #### 5 7021-8 #### [facility] CLIA [id number] 1000 [place] [address] [facility] [place] CNOVon 09-21-2023 CNOV Office Visit (SPNSME ) -------- YARA LOYA ([id number]) 1950 F Date Time Provider Department 09/21/23 10:40 AM [facility] During your visit today, we recorded the following information about you: Pulse Blood pressure Weight 98/minute 123/83 45.1 kg Chris Bull MD 09/21/2023 11:56 AM Signed SPINE [...] rankings ind (more content not included)... Normal [facility] IMMUNOFIXATION SCREEN, SERUM on 09-21-2023 INTERPRETATION (MPA) Atypical restricted bands are present in the IgM and kappa regions. Consistent with IgM kappa monoclonal gammopathy. Normal [facility] Comment on above: Order Comment: Speci men Type: BLOOD SPECIMEN Ordering Facility: [facility] Address: [address] [place] [address] Performed By: #### I FESC #### [facility] CLIA [id number] [address] [place] [address] [place] MPA RESULT M protein is present. Abnormal No M p rotein is identified. [facility] Comment on above: Order Comment: Speci men Type: BLOOD SPECIMEN Ordering Facility: [facility] Address: [address] [place] [address] Performed By: #### I FES #### [facility] CLIA [id number] [address] [place] [address] [place] STAFF REVIEW ([facility]) Reviewed by Mo Good MD, Ph.D ([id number]) Normal [facility] Comment on above: Order Comment: Speci men Type: BLOOD SPECIMEN Ordering Facility: [facility] Address: [address] [place] [address] Performed By: #### I FES #### [facility] CLIA [id number] [address] [place] [address] [place] IMMUNOGLOBULINS,IGG,IGA,IGMo n 09-21-2023 IgA [Mass/Vol] 106 mg/dL Normal 70-400 [facility] Comment on above: Order Comment: Speci men Type: BLOOD SPECIMEN Ordering Facility: [facility] Address: [address] [place] [address] Performed By: #### S ERIMM #### [facility] CLIA [id number] [address] [place] [address] [place] IgG [Mass/Vol] 612 mg/dL Low 700-1600 [facility] Comment on above: Order Comment: Speci men Type: BLOOD SPECIMEN Ordering Facility: [facility] Address: [address] [place] [address] Performed By: #### S ERIMM #### [facility] CLIA [id number] [address] [place] [address] [place] IgM [Mass/Vol] 266 mg/dL High 40-230 [facility] Comment on above: Order Comment: Speci men Type: BLOOD SPECIMEN Ordering Facility: [facility] Address: [address] [place] [address] Performed By: #### S ERIMM #### [facility] IA [id number] [address] [place] [address] [place] KAPPA/SAM,FREE,SERon 2023 Immunoglobulin light chains.kappa.free (S) [Mass/Vol] 23.1 mg/L High 3.3-19.4 [facility] Comment on above: Order Comment: Demarcus men Type: BLOOD SPECIMEN Ordering Facility: [facility] Address: [address] [place] [address] Result Comment: Rare ly, increased serum free light chains levels may not be detected or accurately quantified due to prozone phenomenon or in high viscosity samples using this immunoturbidimetric assay. Correlation with other laboratory results and clinical findings is recommended. The [place] Free Light Chain was performed using the Binding Site Optilite immunoturbidimetric method. Result obtained with different assay methods or kits cannot be used interchangeably. Performed By: #### K LFRS #### [facility] CLIA [id number] [address] [place] [address] [place] Immunoglobulin light chains.kappa/Immunogl obulin light chains.lambda (S) [Mass ratio] 1.88 High 0.26-1.65 [facility] Comment on above: Order Comment: Speci men Type: BLOOD SPECIMEN Ordering Facility: [facility] Address: [address] [place] [address] Performed By: #### K LFRS #### [facility] CLIA [id number] [address] [place] [address] [place] Immunoglobulin light chains.lambda.free [Mass/Vol] 12.3 mg/L Normal 5.7-26.3 [facility] Comment on above: Order Comment: Speci men Type: BLOOD SPECIMEN Ordering Facility: [facility] Address: [address] [place] [address] Result Comment: Rare ly, increased serum free [...] interchangeably. Performed By: #### K LFRS #### [facility] CLIA [id number] [address] [place] [address] [place] PROTEIN ELECTROPHORESIS SERU M (P)on 09-21-2023 Albumin [Mass/Vol] 4.13 g/dL Normal 3.43-5.41 [facility] Comment on above: Order Comment: Speci men Type: BLOOD SPECIMEN Ordering Facility: [facility] Address: [address] [place] [address] Performed By: #### L [id number] #### [facility] CLIA [id number] [address] [place] [address] [place] Alpha 1 globulin Elph [Mass/Vol] 0.28 g/dL Normal 0.18-0.43 [facility] Comment on above: Order Comment: Speci men Type: BLOOD SPECIMEN Ordering Facility: [facility] Address: [address] [place] [address] Performed By: #### L [id number] #### [facility] CLIA [id number] [address] [place] [address] [place] Alpha 2 globulin Elph [Mass/Vol] 0.56 g/dL Normal 0.42-0.98 [facility] Comment on above: Order Comment: Speci men Type: BLOOD SPECIMEN Ordering Facility: [facility] Address: [address] [place] [address] Performed By: #### L [id number] #### [facility] CLIA [id number] [address] [place] [address] [place] Beta globulin Elph [Mass/Vol] 0.81 g/dL Normal 0.61-1.17 [facility] Comment on above: Order Comment: Demarcus dye Type: BLOOD SPECIMEN Ordering Facility: [facility] Address: [address] [place] [address] Performed By: #### L [id number] #### [facility] CLIA [id number] [address] [place] [address] [place] Gamma globulin Elph [Mass/Vol] 0.52 g/dL Low 0.53-1.51 [facility] Comment on above: Order Comment: Demarcus dye Type: BLOOD SPECIMEN Ordering Facility: [facility] Address: [address] [place] [address] Performed By: #### L [id number] #### [facility] CLIA [id number] [address] [place] [address] [place] INTERPRETATION COMMENT FOR PROTEIN ELECTROPHORESIS See separate immunofixation report for characterization of monoclonal gammopathy. Normal [facility] Comment on above: Order Comment: Demarcus dye Type: BLOOD SPECIMEN Ordering Facility: [facility] Address: [address] [place] [address] Performed By: #### L [id number] #### [facility] CLIA [id number] [address] [place] [address] [place] M-PROTEIN LOCATION Gamma Fraction 1 Normal [facility] Comment on above: Order Comment: Desii hardik Type: BLOOD SPECIMEN Ordering Facility: [facility] Address: [address] [place] [address] Result Comment: Not Applicable. Performed By: #### L [id number] #### [facility] CLIA [id number] [address] [place] [address] [place] Protein Fractions [Interp] An M protein is identified on protein electrophoresis. Abnormal No definitive M protein is identified on protein electrophore sis. [facility] Comment on above: Order Comment: Desii men Type: BLOOD SPECIMEN Ordering Facility: [facility] Address: [address] [place] [address] Performed By: #### L [id number] #### [facility] CLIA [id number] [address] [place] [address] Protein.monoclonal Elph [Mass/Vol] 0.18 g/dL High <=0.00 [facility] Comment on above: Order Comment: Speci men Type: BLOOD SPECIMEN Ordering Facility: [facility] Address: [address] [place] [address] Performed By: #### L [id number] #### [facility] CLIA [id number] [address] [place] [address] SPE STAFF REVIEW Reviewed by Mo Good MD, Ph.D ([id number]) Normal [facility] Comment on above: Order Comment: Speci men Type: BLOOD SPECIMEN Ordering Facility: [facility] Address: [address] [place] [address] Performed By: #### L [id number] #### [facility] CLIA [id number] [address] [place] [address] [place] Prot SerPl-mCncon 09-21-2023 Protein [Mass/Vol] 6.3 g/dL Normal 6.3-8.0 [facility] Comment on above: Order Comment: Speci men Type: BLOOD SPECIMEN Ordering Facility: [facility] Address: [address] [place] [address] Performed By: #### 2 [id number] #### [facility] CLIA [id number] [address] [place] [address] [place] CNOVon 08-31-2023 CNOV Office Visit (ENDMED ) -------- YARA LOYA ([id number]) 1950 F Date Time Provider Department 08/31/23 10:00 AM NURSE AMERICO PADILLA During your visit today, we recorded the following information about you: Anne-Marie So RN 08/31/2023 10:40 AM Signed The patient is here for an injection of Evenity Injection #10 of 12 Dose: 210 mg (105 mg/1.17 mL X2). Route: Subcutaneous Lot# [id number] Expiration date 10/31/2025 [facility]: 72808-588-60 Given without incident. Site: Right arm Dr. [...] and no reactions noted. Medication supplied by [facility] JONELLE So RN Allergies As of Date: 08/31/2023 Noted Allergy Reaction SEASONAL ALLERGIES 09/20/2013 14 - Other: See Comments Comments: sinus Date Reviewed: 08/31/2023 Reviewed by: Anne-Marie So, GREGORIA - Fully Assessed Reason for [...] 09/20/2014 Hyperlipidemia [E78.5] 09/20/2014 Visit Notes: >> Anne-Marie So RN Mon Aug 31, 2023 10:30 AM Status: Signed The patient is here for an injection of Evenity Injection #10 of 12 Dose: 210 mg (105 mg/1.17 mL X2). Route: Subcutaneous Lot# [id number] Expiration date 10/31/2025 [facility]: 24711-308-41 Given without incident. Site: Right arm Dr. Dougherty present in clinic at time of injection. The date due for the next injection is i (more content not included)... Normal [facility] - Drug toxicology Ordered By: Marion Christianson on 08-05-2023 Amphetamines Ql (U) Negative <1000 ng/mL [facility] Benzodiazepines Ql (U) Negative < 200 ng/mL [facility] Cannabinoids Screen Ql (U) Negative < 50 ng/mL [facility] Cocaine Ql (U) Negative < 300 ng/mL [facility] Opiates Ql (U) Negative < 300 ng/mL [facility] No Panel InformationOrdered By: Marion Christianson on 08-05-2023 MDMA (Ecstasy) Screen Negative < 500 ng/mL [facility] Urine Barbiturates Screen Negative < 200 ng/mL [facility] Urine Drug Screen Comment [facility] Comment on above: CONFIRMATORY TESTING FOR ALL POSITIVE URINE DRUG SCREENRESULTS WILL ONLY BE SENT OUT UPON PHYSICIAN ORDER. VISTA Urine Drug Screen methods provide only preliminaryanalytical test results. A more specific alternate chemicalmethod must be used in order to obtain a confirmedanalytical result. Gas chromatography/mass spectrometery(GC/MS) is the preferred confirmatory method. Clinicalconsideration and professional judgement should be appliedto any drug of abuse test result, particularly whenpreliminary positive results are used. URINE TCA TESTING MUST BE ORDERED SEPARATELY. USE TESTMNEMONIC: [facility] Urine Methadone Screen Negative < 300 ng/mL [facility] Urine phencyclidine (PCP) de tectionOrdered By: Marion Christianson on 08-05-2023 Phencyclidine Ql (U) Negative < 25 ng/mL [facility] Absolute lymphocyte countOrd ered By: Hetal Mccarthy on 08-04-2023 Lymphocytes Auto (Unsp spec) [#/Vol] 1.43 10*3/uL 0.83-4.51 [facility] Automated lymphocyte count a s percentage of total leukocytesOrdered By: Hetal Mccarthy on 08-04-2023 Lymphocytes/100 WBC Auto (Unsp spec) 18.8 % 19-41 [facility] Basophil percentageOrdered B y: Hetal Mccarthy on 08-04-2023 Basophils/100 WBC (Bld) 0.4 % 0-1 [facility] Bilirubin [Mass/Vol] 0.20 mg/dL 0.20-1.00 [facility] Comment on above: For patients on eltr ombopag therapy, use of Dimension [place] TBIL is not recommended. Chloride [Moles/Vol] 106 mmol/L 98-107 [facility] Eosinophils/100 WBC (Bld) 3.2 % 0-5 [facility] Glucose [Mass/Vol] 101 mg/dL 74-106 [facility] Comment on above: Fasting Glucose resu lt from 100 to 125 mg/dL suggests IMPAIRED HOMEOSTASIS per A.D.A. criteria. Hemoglobin (Bld) [Mass/Vol] 8.8 g/dL 12.0-15.0 [facility] Monocytes/100 WBC (Bld) 7.1 % 0-10 [facility] Neutrophils (Bld) [#/Vol] 5.3 10*3/uL 2.0-7.7 [facility] Neutrophils/100 WBC (Bld) 70.2 % 47-70 [facility] Potassium [Moles/Vol] 4.0 mmol/L 3.5-5.1 [facility] Protein [Mass/Vol] 6.5 g/dL 6.4-8.2 [facility] Sodium [Moles/Vol] 140 mmol/L 136-145 [facility] WBC (Bld) [#/Vol] 7.6 10*3/uL 4.4-11.0 [facility] Determination of erythrocyte mean corpuscular volume (MCV)Ordered By: Hetal Mccarthy on 08-04-2023 MCV (RBC) [Entitic vol] 102.7 fL 81-99 [facility] Erythrocyte distribution wid th ratioOrdered By: [facility] Shari on 08-04-2023 Erythrocyte distribution width (RBC) [Ratio] 14.1 % 11.6-14.6 [facility] Erythrocyte distribution wid th standard deviationOrdered By: [facility] Shari on 08-04-2023 Erythrocyte distribution width (RBC) [Entitic vol] 52.0 fL 35.1-43.9 [facility] Hematocrit Auto (Bld) [Volum e fraction]Ordered By: Hetal Mccarthy on 08-04-2023 Hematocrit (Bld) [Volume fraction] 26.9 % 37-47 [facility] Immature granulocytes/100 WB C Auto (Bld)Ordered By: [facility] Shari on 08-04-2023 Immature granulocytes/100 WBC (Bld) 0.300 % 0.0-0.9 [facility] Comment on above: IG% - Immature Granu locytes (promyelocytes, myelocytes and metamyelocytes) > 1% indicates that a LEFT SHIFT is Present. Laboratory - Chemistry and C hemistry - challengeOrdered By: Hetaljosé miguel Mccarthy on 08-04-2023 Albumin/Globulin [Mass ratio] 1.0 {ratio} 0.9-2.4 [facility] ALP [Catalytic activity/Vol] 108 U/L 45-117 [facility] ALT [Catalytic activity/Vol] 16 U/L 13-56 [facility] CO2 [Moles/Vol] 27.0 mmol/L 21.0-32.0 [facility] Globulin (S) [Mass/Vol] 3.2 g/dL 2.2-4.2 [facility] Urea nitrogen/Creatinine [Mass ratio] 20.0 mg/mg 10-20 [facility] Laboratory - Hematology and Cell countsOrdered By: Hetal Mccarthy on 08-04-2023 MCH (RBC) [Entitic mass] 33.6 pg 27.0-32.0 [facility] MCHC (RBC) [Mass/Vol] 32.7 g/dL 32-36 [facility] Nucleated RBC/100 WBC (Bld) [Ratio] 0 % 0-5 [facility] Platelet mean volume (Bld) [Entitic vol] 8.9 fL 6.2-12.0 [facility] Platelets (Bld) [#/Vol] 608 10*3/uL 150-450 [facility] No Panel InformationOrdered By: Hetal Mccarthy on 08-04-2023 Estimated GFR (MDRD) Amer 70 mL/min >60 [facility] Comment on above: GFR Calc Estimated GFR (MDRD) Non-Af Amer 58 mL/min >60 [facility] Comment on above: Non- GFR Calc RBC Auto (Bld) [#/Vol]Ordere d By: Hetal Mccarthy on 08-04-2023 RBC (Bld) [#/Vol] 2.62 10*6/uL 4.2-5.4 [facility] Serum or plasma calcium leo urement (mass/volume)Ordered By: Hetal Mccarthy on 08-04-2023 Calcium [Mass/Vol] 9.0 mg/dL 8.5-10.1 [facility] Serum or plasma creatinine m easurement (mass/volume)Ordered By: Hetal Mccarthy on 08-04-2023 Creatinine [Mass/Vol] 1.00 mg/dL 0.55-1.02 [facility] Comment on above: The validity of the calculated GFR & GFRAA in patients over 70 years has not been determined. Clinical correlation is essential. Serum or plasma urea nitroge n measurement (mass/volume)Ordered By: Hetal Mccarthy on 08-04-2023 Urea nitrogen [Mass/Vol] 20 mg/dL 7-18 [facility] Thin prep Papanicolaou smear with manual screeningOrdered By: Hetal Mccarthy on 08-04-2023 Thin prep Papanicolaou smear with manual screening 3.3 g/dL 3.2-5.0 [facility] Thin prep Papanicolaou smear with manual screening 15 U/L 15-37 [facility] Thin prep Papanicolaou smear with manual screening 7 5-15 [facility] Thin prep Papanicolaou smear with manual screeningOrdered By: Gama Stout on 07-22-2023 Thin prep Papanicolaou smear with manual screening 89 mg/dL 74-106 [facility] Comment on above: MANAGEMENT OF PATIEN T CARE PER NURSING PROTOCOL Activated partial thrombopla stin time (aPTT) in platelet poor plasma by coagulation aOrdered By: Gama Stout on 07-15-2023 aPTT Coag (PPP) [Time] 27.5 s 24.1-36.2 [facility] Laboratory - Chemistry and C hemistry - challengeOrdered By: Clayton Smith on 07-15-2023 Magnesium [Mass/Vol] 2.2 mg/dL 1.6-2.6 [facility] Laboratory - CoagulationOrde red By: Gama Stout on 07-15-2023 INR Coag (Bld) [Relative time] 1.0 {INR} [facility] PT Coag (PPP) [Time] 13.1 s 11.7-14.9 [facility] No Panel InformationOrdered By: Gama Stout on 07-15-2023 Fructosamine 217 umol/L 0-285 [facility] Comment on above: Published reference interval for apparently healthysubjects between age 20 and 60 is 205 - 285 umol/L and in apoorly controlled diabetic population is 228 - 563 umol/Lwith a mean of 396 umol/L.Performed at: [facility] [id number] Director: Sidney Melo PhD, Phone: [phone] Nasal Screen MRSA/MSSA [facility] Whole blood hemoglobin A1c/t otal hemoglobin ratio (mass fraction)Ordered By: Gama Stout on 07-15-2023 HbA1c (Bld) [Mass fraction] 5.2 % 3.8-5.6 [facility] Comment on above: Normal < 5.7 % Predi abetic 5.7 - 6.4 % Diabetic >or= 6.5 % Please note range changes. Absolute lymphocyte countOrd ered By: Hetal Mccarthy on 05-13-2023 Lymphocytes Auto (Unsp spec) [#/Vol] 0.84 10*3/uL 0.83-4.51 [facility] Basophil percentageOrdered B y: Hetal Mccarthy on 05-13-2023 Basophils/100 WBC (Bld) 0.6 % 0-1 [facility] Bilirubin [Mass/Vol] 0.50 mg/dL 0.20-1.00 [facility] Comment on above: For patients on eltr ombopag therapy, use of Dimension [place] TBIL is not recommended. Chloride [Moles/Vol] 108 mmol/L 98-107 [facility] Eosinophils/100 WBC (Bld) 0.3 % 0-5 [facility] Glucose [Mass/Vol] 98 mg/dL 74-106 [facility] Neutrophils (Bld) [#/Vol] 10.3 10*3/uL 2.0-7.7 [facility] Neutrophils/100 WBC (Bld) 89.6 % 47-70 [facility] Potassium [Moles/Vol] 3.9 mmol/L 3.5-5.1 [facility] Protein [Mass/Vol] 7.1 g/dL 6.4-8.2 [facility] Sodium [Moles/Vol] 140 mmol/L 136-145 [facility] WBC (Bld) [#/Vol] 11.5 10*3/uL 4.4-11.0 [facility] Blood erythrocytes count (nu mber/volume)Ordered By: Hetal Mccarthy on 05-13-2023 RBC (Bld) [#/Vol] 3.32 10*6/uL 4.2-5.4 [facility] Blood hemoglobin measurement (mass/volume)Ordered By: Hetal Mccarthy on 05-13-2023 Hemoglobin (Bld) [Mass/Vol] 11.3 g/dL 12.0-15.0 [facility] Blood lymphocytes/100 leukoc ytesOrdered By: Hetal Mccarthy on 05-13-2023 Lymphocytes/100 WBC (Bld) 7.3 % 19-41 [facility] Blood monocytes/100 leukocyt esOrdered By: Hetal Mccarthy on 05-13-2023 Monocytes/100 WBC (Bld) 1.9 % 0-10 [facility] Blood platelet mean volumeOr dered By: Hetal Mccarthy on 05-13-2023 Platelet mean volume (Bld) [Entitic vol] 10.1 fL 6.2-12.0 [facility] Determination of erythrocyte mean corpuscular volume (MCV)Ordered By: Hetal Mccarthy on 05-13-2023 MCV (RBC) [Entitic vol] 100.9 fL 81-99 [facility] Hematocrit Auto (Bld) [Volum e fraction]Ordered By: Hetal Mccarthy on 05-13-2023 Hematocrit (Bld) [Volume fraction] 33.5 % 37-47 [facility] Laboratory - Chemistry and C hemistry - challengeOrdered By: Hetal Mccarthy on 05-13-2023 ALP [Catalytic activity/Vol] 86 U/L 45-117 [facility] ALT [Catalytic activity/Vol] 23 U/L 13-56 [facility] CO2 [Moles/Vol] 24.0 mmol/L 21.0-32.0 [facility] Globulin (S) [Mass/Vol] 3.2 g/dL 2.2-4.2 [facility] Urea nitrogen/Creatinine [Mass ratio] 17.5 mg/mg 10-20 [facility] - Hematology and Cell countsOrdered By: Hetal Mccarthy on 05-13-2023 Erythrocyte distribution width (RBC) [Entitic vol] 49.7 fL 35.1-43.9 [facility] Erythrocyte distribution width (RBC) [Ratio] 13.6 % 11.6-14.6 [facility] Immature granulocytes/100 WBC (Bld) 0.300 % 0.0-0.9 [facility] Comment on above: IG% - Immature Granu locytes (promyelocytes, myelocytes and metamyelocytes) > 1% indicates that a LEFT SHIFT is Present. MCH (RBC) [Entitic mass] 34.0 pg 27.0-32.0 [facility] Nucleated RBC/100 WBC (Bld) [Ratio] 0 % 0-5 [facility] MCHC Auto (RBC) [Mass/Vol]Or dered By: Hetal Mccarthy on 05-13-2023 MCHC (RBC) [Mass/Vol] 33.7 g/dL 32-36 [facility] No Panel InformationOrdered By: Hetal Mccarthy on 05-13-2023 Estimated GFR (MDRD) Amer 68 mL/min >60 [facility] Comment on above: GFR Calc Estimated GFR (MDRD) Non-Af Amer 56 mL/min >60 [facility] Comment on above: Non- GFR Calc Platelets bldOrdered By: Jae Mccarthy on 05-13-2023 Platelets (Bld) [#/Vol] 320 10*3/uL 150-450 [facility] Serum or plasma albumin leo urement (mass/volume)Ordered By: Hetal Mccarthy on 05-13-2023 Albumin [Mass/Vol] 3.9 g/dL 3.2-5.0 [facility] Serum or plasma albumin/glob ulin mass ratioOrdered By: Hetal Mccarthy on 05-13-2023 Albumin/Globulin [Mass ratio] 1.2 {ratio} 0.9-2.4 [facility] Serum or plasma calcium leo urement (mass/volume)Ordered By: Hetal Mccarthy on 05-13-2023 Calcium [Mass/Vol] 10.0 mg/dL 8.5-10.1 [facility] Serum or plasma creatinine m easurement (mass/volume)Ordered By: Hetal Mccarthy on 05-13-2023 Creatinine [Mass/Vol] 1.03 mg/dL 0.55-1.02 [facility] Comment on above: The validity of the calculated GFR & GFRAA in patients over 70 years has not been determined. Clinical correlation is essential. Serum or plasma urea nitroge n measurement (mass/volume)Ordered By: Hetal Mccarthy on 05-13-2023 Urea nitrogen [Mass/Vol] 18 mg/dL 7-18 [facility] Thin prep Papanicolaou smear with manual screeningOrdered By: Hetal Mccarthy on 05-13-2023 Thin prep Papanicolaou smear with manual screening 21 U/L 15-37 [facility] Thin prep Papanicolaou smear with manual screening 8 5-15 [facility] Laboratory - Drug toxicology Ordered By: Marion Christianson on 04-15-2023 Amphetamines Ql (U) Negative <1000 ng/mL [facility] Benzodiazepines Ql (U) Negative < 200 ng/mL [facility] Cannabinoids Screen Ql (U) Negative < 50 ng/mL [facility] Cocaine Ql (U) Negative < 300 ng/mL [facility] Opiates Ql (U) Negative < 300 ng/mL [facility] No Panel InformationOrdered By: Marion Chasenorma on 04-15-2023 MDMA (Ecstasy) Screen Negative < 500 ng/mL [facility] Miscellaneous Test See comment [facility] Comment on above: [id number] 6+OXYCODONE-B UND (ng/mL) DRUG RESULT SCREEN CUTOFF____ Amphetamines,Urine Negative ng/mL 1000 Amphetamine test includes Amphetamine and Methamphetamine.Barbiturates Negative ng/mL 200Benzodiazepines Negative ng/mL 200Cannabinoid Negative ng/mL 20Cocaine (Metab) Negative ng/mL 300Opiates Negative ng/mL 300 Opiates test includes Codeine, Morphine, Hydromorphone, Hydrocodone. Oxycodone/Oxymorphone,Urine Positive ng/mL 300 Test includes Oxycodone and Oxymorphone. Oxycodone Positive Oxycodone Conf, MS, UR 575 ng/mL 300 Oxymorphone Positive Oxymorphone Conf, MS, UR 994 ng/mL 300 TESTING PERFORMED AT [facility]. ORIGINAL REPORT ON FILE IN LAB CONTAINS ADDITIONAL TEST SITE INFORMATION. Urine Barbiturates Screen Negative < 200 ng/mL [facility] Urine Drug Screen Comment [facility] Comment on above: CONFIRMATORY TESTING FOR ALL POSITIVE URINE DRUG SCREENRESULTS WILL ONLY BE SENT OUT UPON PHYSICIAN ORDER. [facility]IST[facility] Urine Drug Screen methods provide only preliminaryanalytical test results. A more specific alternate chemicalmethod must be used in order to obtain a confirmedanalytical result. Gas chromatography/mass spectrometery(GC/MS) is the preferred confirmatory method. Clinicalconsideration and professional judgement should be appliedto any drug of abuse test result, particularly whenpreliminary positive results are used. URINE TCA TESTING MUST BE ORDERED SEPARATELY. USE TESTMNEMONIC: [facility] Urine Methadone Screen Negative < 300 ng/mL [facility] Urine phencyclidine (PCP) de tectionOrdered By: Marion Christianson on 04-15-2023 Phencyclidine Ql (U) Negative < 25 ng/mL [facility] Basic metabolic 2000 panelon 02-25-2023 Anion gap [Moles/Vol] 11 mmol/L 9 - 18 mmol/L [facility] Calcium [Mass/Vol] 9.6 mg/dL 8.5 - 10. 2 mg/dL [facility] Chloride [Moles/Vol] 102 mmol/L 97 - 10 5 mmol/L [facility] CO2 [Moles/Vol] 26 mmol/L 22 - 30 mmol/L [facility] Creatinine [Mass/Vol] 0.88 mg/dL 0.58 - 0.96 mg/dL [facility] Estimated Glomerular Filtration Rate 70 mL/min/1.73m >=60 mL/min/1.73m [facility] Glucose [Mass/Vol] 89 mg/dL 74 - 99 mg/dL [facility] Potassium [Moles/Vol] 4.3 mmol/L 3.7 - 5.1 mmol/L [facility] Sodium [Moles/Vol] 139 mmol/L 136 - 144 mmol/L [facility] Urea nitrogen [Mass/Vol] 22 mg/dL High 7 - 21 mg/dL [facility] CBC W Auto Differential pane l (Bld)on 02-25-2023 Basophils (Bld) [#/Vol] 0.05 10*3/uL <0.11 k/uL [facility] Basophils/100 WBC (Bld) 0.6 % [facility] Differential cell count method Nom (Bld) Auto [facility] Eosinophils (Bld) [#/Vol] 0.03 10*3/uL <0.46 k/uL [facility] Eosinophils/100 WBC (Bld) 0.4 % [facility] Erythrocyte distribution width (RBC) [Ratio] 15.1 % High 11.5 - 15.0 % [facility] Hematocrit (Bld) [Volume fraction] 30.9 % Low 36.0 - 46.0 % [facility] Hemoglobin (Bld) [Mass/Vol] 10.5 g/dL Low 11.5 - 15.5 g/dL [facility] Immature granulocytes (Bld) [#/Vol] 0.03 10*3/uL <0.10 k/uL [facility] Immature granulocytes/100 WBC (Bld) 0.4 % [facility] Lymphocytes (Bld) [#/Vol] 0.80 10*3/uL Low 1.00 - 4.00 k/uL [facility] Lymphocytes/100 WBC (Bld) 10.0 % [facility] MCH (RBC) [Entitic mass] 34.2 pg High 26.0 - 34.0 pg [facility] MCHC (RBC) [Mass/Vol] 34.0 g/dL 30.5 - 36.0 g/dL [facility] MCV (RBC) [Entitic vol] 100.7 fL High 80.0 - 100.0 fL [facility] Monocytes (Bld) [#/Vol] 0.25 10*3/uL <0.87 k/uL [facility] Monocytes/100 WBC (Bld) 3.1 % [facility] Neutrophils (Bld) [#/Vol] 6.88 10*3/uL 1.45 - 7.50 k/uL [facility] Neutrophils/100 WBC (Bld) 85.5 % [facility] Nucleated RBC (Bld) [#/Vol] <0.01 k/uL [facility] Nucleated RBC/100 WBC (Bld) [Ratio] 0.0 /100 WBC [facility] Platelet mean volume (Bld) [Entitic vol] 9.2 fL 9.0 - 12.7 fL [facility] Platelets (Bld) [#/Vol] 273 10*3/uL 150 - 400 k/uL [facility] RBC (Bld) [#/Vol] 3.07 10*6/uL Low 3.90 - 5.2 0 m/uL [facility] WBC (Bld) [#/Vol] 8.04 10*3/uL 3.70 - 11. 00 k/uL [facility] Absolute lymphocyte countOrd ered By: Hetal Mccarthy on 02-04-2023 Lymphocytes Auto (Unsp spec) [#/Vol] 1.45 10*3/uL 0.83-4.51 [facility] Basophil percentageOrdered B y: Hetal Mccarthy on 02-04-2023 Basophils/100 WBC (Bld) 1.0 % 0-1 [facility] Bilirubin [Mass/Vol] 0.40 mg/dL 0.20-1.00 [facility] Comment on above: For patients on eltr ombopag therapy, use of [place] TBIL is not recommended. Chloride [Moles/Vol] 108 mmol/L 98-107 [facility] Eosinophils/100 WBC (Bld) 1.2 % 0-5 [facility] Glucose [Mass/Vol] 89 mg/dL 74-106 [facility] Neutrophils (Bld) [#/Vol] 4.0 10*3/uL 2.0-7.7 [facility] Neutrophils/100 WBC (Bld) 66.9 % 47-70 [facility] Potassium [Moles/Vol] 4.0 mmol/L 3.5-5.1 [facility] Protein [Mass/Vol] 7.3 g/dL 6.4-8.2 [facility] Sodium [Moles/Vol] 137 mmol/L 136-145 [facility] WBC (Bld) [#/Vol] 6.0 10*3/uL 4.4-11.0 [facility] Blood erythrocytes count (nu mber/volume)Ordered By: Hetal Mccarthy on 02-04-2023 RBC (Bld) [#/Vol] 2.97 10*6/uL 4.2-5.4 [facility] Blood hemoglobin measurement (mass/volume)Ordered By: Hetal Mccarthy on 02-04-2023 Hemoglobin (Bld) [Mass/Vol] 10.1 g/dL 12.0-15.0 [facility] Blood lymphocytes/100 leukoc ytesOrdered By: Hetal Mccarthy on 02-04-2023 Lymphocytes/100 WBC (Bld) 24.0 % 19-41 [facility] Blood monocytes/100 leukocyt esOrdered By: Hetal Mccarthy on 02-04-2023 Monocytes/100 WBC (Bld) 6.6 % 0-10 [facility] Blood platelet mean volumeOr dered By: Hetal Mccarthy on 02-04-2023 Platelet mean volume (Bld) [Entitic vol] 10.2 fL 6.2-12.0 [facility] Determination of erythrocyte mean corpuscular volume (MCV)Ordered By: Hetal Mccarthy on 02-04-2023 MCV (RBC) [Entitic vol] 102.7 fL 81-99 [facility] Hematocrit Auto (Bld) [Volum e fraction]Ordered By: [facility] Shari on 02-04-2023 Hematocrit (Bld) [Volume fraction] 30.5 % 37-47 [facility] Laboratory - Chemistry and C hemistry - challengeOrdered By: [facility] Shari on 02-04-2023 ALP [Catalytic activity/Vol] 93 U/L 45-117 [facility] ALT [Catalytic activity/Vol] 27 U/L 13-56 [facility] CO2 [Moles/Vol] 26.0 mmol/L 21.0-32.0 [facility] Globulin (S) [Mass/Vol] 3.2 g/dL 2.2-4.2 [facility] Urea nitrogen/Creatinine [Mass ratio] 16.8 mg/mg 10-20 [facility] Laboratory - Hematology and Cell countsOrdered By: [facility] Shari on 02-04-2023 Erythrocyte distribution width (RBC) [Entitic vol] 54.4 fL 35.1-43.9 [facility] Erythrocyte distribution width (RBC) [Ratio] 14.6 % 11.6-14.6 [facility] Immature granulocytes/100 WBC (Bld) 0.300 % 0.0-0.9 [facility] Comment on above: IG% - Immature Granu locytes (promyelocytes, myelocytes and metamyelocytes) > 1% indicates that a LEFT SHIFT is Present. MCH (RBC) [Entitic mass] 34.0 pg 27.0-32.0 [facility] Nucleated RBC/100 WBC (Bld) [Ratio] 0 % 0-5 [facility] MCHC Auto (RBC) [Mass/Vol]Or dered By: Hetal Mccarthy on 02-04-2023 MCHC (RBC) [Mass/Vol] 33.1 g/dL 32-36 [facility] No Panel InformationOrdered By: Hetal Mccarthy on 02-04-2023 Estimated GFR (MDRD) Amer 74 mL/min >60 [facility] Comment on above: GFR Calc Estimated GFR (MDRD) Non-Af Amer 61 mL/min >60 [facility] Comment on above: Non- GFR Calc Platelets bldOrdered By: Jae Mccarthy on 02-04-2023 Platelets (Bld) [#/Vol] 249 10*3/uL 150-450 [facility] Serum or plasma albumin leo urement (mass/volume)Ordered By: Hetal Mccarthy on 02-04-2023 Albumin [Mass/Vol] 4.1 g/dL 3.2-5.0 [facility] Serum or plasma albumin/glob ulin mass ratioOrdered By: Hetal Mccarthy on 02-04-2023 Albumin/Globulin [Mass ratio] 1.3 {ratio} 0.9-2.4 [facility] Serum or plasma calcium leo urement (mass/volume)Ordered By: Hetal Mccarthy on 02-04-2023 Calcium [Mass/Vol] 9.6 mg/dL 8.5-10.1 [facility] Serum or plasma creatinine m easurement (mass/volume)Ordered By: Hetal Mccarthy on 02-04-2023 Creatinine [Mass/Vol] 0.95 mg/dL 0.55-1.02 [facility] Comment on above: The validity of the calculated GFR & GFRAA in patients over 70 years has not been determined. Clinical correlation is essential. Serum or plasma urea nitroge n measurement (mass/volume)Ordered By: Hetal Mccarthy on 02-04-2023 Urea nitrogen [Mass/Vol] 16 mg/dL 7-18 [facility] Thin prep Papanicolaou smear with manual screeningOrdered By: Hetal Mccarthy on 02-04-2023 Thin prep Papanicolaou smear with manual screening 20 U/L 15-37 [facility] Thin prep Papanicolaou smear with manual screening 3 5-15 [facility] Absolute lymphocyte countOrd ered By: Mike Hopper on 12-18-2022 Lymphocytes Auto (Unsp spec) [#/Vol] 0.66 10*3/uL 0.83-4.51 [facility] Basophil percentageOrdered B y: Mike Hopper on 12-18-2022 Basophils/100 WBC (Bld) 0.7 % 0-1 [facility] Bilirubin [Mass/Vol] 0.40 mg/dL 0.20-1.00 [facility] Comment on above: For patients on eltr ombopag therapy, use of [place] TBIL is not recommended. Chloride [Moles/Vol] 103 mmol/L 98-107 [facility] Eosinophils/100 WBC (Bld) 0.7 % 0-5 [facility] Glucose [Mass/Vol] 77 mg/dL 74-106 [facility] Neutrophils (Bld) [#/Vol] 3.2 10*3/uL 2.0-7.7 [facility] Neutrophils/100 WBC (Bld) 71.7 % 47-70 [facility] Potassium [Moles/Vol] 4.2 mmol/L 3.5-5.1 [facility] Protein [Mass/Vol] 7.0 g/dL 6.4-8.2 [facility] Sodium [Moles/Vol] 136 mmol/L 136-145 [facility] WBC (Bld) [#/Vol] 4.4 10*3/uL 4.4-11.0 [facility] Blood erythrocytes count (nu mber/volume)Ordered By: Mike Hopper on 12-18-2022 RBC (Bld) [#/Vol] 3.47 10*6/uL 4.2-5.4 [facility] Blood hemoglobin measurement (mass/volume)Ordered By: Mike Hopper on 12-18-2022 Hemoglobin (Bld) [Mass/Vol] 11.3 g/dL 12.0-15.0 [facility] Blood lymphocytes/100 leukoc ytesOrdered By: Mike Hopper on 12-18-2022 Lymphocytes/100 WBC (Bld) 14.9 % 19-41 [facility] Blood monocytes/100 leukocyt esOrdered By: Mike Hopper on 12-18-2022 Monocytes/100 WBC (Bld) 11.3 % 0-10 [facility] Blood platelet mean volumeOr dered By: Mike Hopper on 12-18-2022 Platelet mean volume (Bld) [Entitic vol] 9.9 fL 6.2-12.0 [facility] Determination of erythrocyte mean corpuscular volume (MCV)Ordered By: Mike Hopper on 12-18-2022 MCV (RBC) [Entitic vol] 100.9 fL 81-99 [facility] Hematocrit Auto (Bld) [Volum e fraction]Ordered By: Mike Hopper on 12-18-2022 Hematocrit (Bld) [Volume fraction] 35.0 % 37-47 [facility] Laboratory - Chemistry and C hemistry - challengeOrdered By: Mike Hopper on 12-18-2022 ALP [Catalytic activity/Vol] 98 U/L 45-117 [facility] ALT [Catalytic activity/Vol] 20 U/L 13-56 [facility] CO2 [Moles/Vol] 24.0 mmol/L 21.0-32.0 [facility] Globulin (S) [Mass/Vol] 3.4 g/dL 2.2-4.2 [facility] Urea nitrogen/Creatinine [Mass ratio] 20.1 mg/mg 10-20 [facility] Laboratory - Hematology and Cell countsOrdered By: Mike Hopper on 12-18-2022 Erythrocyte distribution width (RBC) [Entitic vol] 52.1 fL 35.1-43.9 [facility] Erythrocyte distribution width (RBC) [Ratio] 14.3 % 11.6-14.6 [facility] Immature granulocytes/100 WBC (Bld) 0.700 % 0.0-0.9 [facility] Comment on above: IG% - Immature Granu locytes (promyelocytes, myelocytes and metamyelocytes) > 1% indicates that a LEFT SHIFT is Present. MCH (RBC) [Entitic mass] 32.6 pg 27.0-32.0 [facility] Nucleated RBC/100 WBC (Bld) [Ratio] 0 % 0-5 [facility] MCHC Auto (RBC) [Mass/Vol]Or dered By: Mike Hopper on 12-18-2022 MCHC (RBC) [Mass/Vol] 32.3 g/dL 32-36 [facility] No Panel InformationOrdered By: Mike Hopper on 12-18-2022 Estimated GFR (MDRD) Amer 85 mL/min >60 [facility] Comment on above: GFR Calc Estimated GFR (MDRD) Non-Af Amer 70 mL/min >60 [facility] Comment on above: Non- GFR Calc Platelets bldOrdered By: Giancarlo Hopper on 12-18-2022 Platelets (Bld) [#/Vol] 259 10*3/uL 150-450 [facility] Serum or plasma albumin leo urement (mass/volume)Ordered By: Mike Hopper on 12-18-2022 Albumin [Mass/Vol] 3.6 g/dL 3.2-5.0 [facility] Serum or plasma albumin/glob ulin mass ratioOrdered By: Mike Hopper on 12-18-2022 Albumin/Globulin [Mass ratio] 1.1 {ratio} 0.9-2.4 [facility] Serum or plasma calcium leo urement (mass/volume)Ordered By: Mike Hopper on 12-18-2022 Calcium [Mass/Vol] 9.0 mg/dL 8.5-10.1 [facility] Serum or plasma creatinine m easurement (mass/volume)Ordered By: Mike Hopper on 12-18-2022 Creatinine [Mass/Vol] 0.84 mg/dL 0.55-1.02 [facility] Comment on above: The validity of the calculated GFR & GFRAA in patients over 70 years has not been determined. Clinical correlation is essential. Serum or plasma urea nitroge n measurement (mass/volume)Ordered By: Mike Hopper on 12-18-2022 Urea nitrogen [Mass/Vol] 17 mg/dL 7-18 [facility] Thin prep Papanicolaou smear with manual screeningOrdered By: Mike Hopper on 12-18-2022 Thin prep Papanicolaou smear with manual screening 20 U/L 15-37 [facility] Thin prep Papanicolaou smear with manual screening 9 5-15 [facility] CNPNon 10-24-2022 CNPN Telephone ([facility]) -------- YARA LOYA ([id number]) 1950 F Date Time Provider Department 10/24/22 CHRIS BULL [facility] During your visit today, we recorded the following information about you: Renetta Acevedo 10/24/2022 8:56 AM Signed Patient calling asking for results of Xray dont one 10/20. She also wants to know if she can get a referral to another neurosurgeon closer to home in [place]. States that she has seen him before [...] Encounter Status:Closed by KAM MARTIN on 10/27/22 [facility] XR Shoulder - left 2 Viewson 10-24-2022 IMPRESSION: Findings as discussed under Results portion of report. Visual C Developer: [employer] Transcribe Date/Time: Oct 24 2022 4:24P Dictated by : SUGEY MINOR DO This examination was interpreted and the report reviewed and electronically signed by: SUGEY MINOR DO on Oct 24 2022 4:28PM EST [facility] * * *Final Report* * * [...] space No fractures or dislocations are seen. [facility] Provider, [facility] - 10/24/2022 * * *Final Report* [...] as discussed under Results portion of report. Visual C Developer: FLOWER Transcribe Date/Time: Oct 24 2022 4:24P Dictated by : SUGEY MINOR DO This examination was interpreted and the report reviewed and electronically signed by: SUGEY MINOR DO on Oct 24 2022 4:28PM EST [facility] XR Shoulder - left 2 ViewsOr dered By: [facility] Provider on 10-24-2022 [facility] XR SHOULDER 2V AP/TRUE AP LT [...] as discussed under Results portion of report. Visual C Developer: [employer] Transcribe Date/Time: Oct 24 2022 4:24P Dictated by : SUGEY MINOR DO This examination was interpreted and the report reviewed and electronically signed by: SUGEY MINOR DO on Oct 24 2022 4:28PM EST [id number] Normal [facility] XR Shoulder - left 2 Viewson 10-20-2022 Radiology Study observation (narrative) [facility] Absolute lymphocyte countOrd ered By: Dr. Mccarthy on 10-03-2022 Lymphocytes Auto (Unsp spec) [#/Vol] 2.43 10*3/uL 0.83-4.51 [facility] Basophil percentageOrdered B y: Dr. Mccarthy on 10-03-2022 Basophils/100 WBC (Bld) 0.7 % 0-1 [facility] Bilirubin [Mass/Vol] 0.40 mg/dL 0.20-1.00 [facility] Comment on above: For patients on eltr ombopag therapy, use of [place] TBIL is not recommended. Chloride [Moles/Vol] 109 mmol/L 98-107 [facility] Eosinophils/100 WBC (Bld) 1.5 % 0-5 [facility] Glucose [Mass/Vol] 92 mg/dL 74-106 [facility] Neutrophils (Bld) [#/Vol] 4.4 10*3/uL 2.0-7.7 [facility] Neutrophils/100 WBC (Bld) 57.9 % 47-70 [facility] Potassium [Moles/Vol] 3.6 mmol/L 3.5-5.1 [facility] Protein [Mass/Vol] 6.6 g/dL 6.4-8.2 [facility] Sodium [Moles/Vol] 141 mmol/L 136-145 [facility] WBC (Bld) [#/Vol] 7.6 10*3/uL 4.4-11.0 [facility] Blood erythrocytes count (nu mber/volume)Ordered By: Dr. Mccarthy on 10-03-2022 RBC (Bld) [#/Vol] 3.42 10*6/uL 4.2-5.4 [facility] Blood hemoglobin measurement (mass/volume)Ordered By: Dr. Mccarthy on 10-03-2022 Hemoglobin (Bld) [Mass/Vol] 11.1 g/dL 12.0-15.0 [facility] Blood lymphocytes/100 leukoc ytesOrdered By: Dr. Mccarthy on 10-03-2022 Lymphocytes/100 WBC (Bld) 32.1 % 19-41 [facility] Blood monocytes/100 leukocyt esOrdered By: Dr. Mccarthy on 10-03-2022 Monocytes/100 WBC (Bld) 7.4 % 0-10 [facility] Blood platelet mean volumeOr dered By: Dr. Mccarthy on 10-03-2022 Platelet mean volume (Bld) [Entitic vol] 9.9 fL 6.2-12.0 [facility] Determination of erythrocyte mean corpuscular volume (MCV)Ordered By: Dr. Mccarthy on 10-03-2022 MCV (RBC) [Entitic vol] 97.4 fL 81-99 [facility] Hematocrit Auto (Bld) [Volum e fraction]Ordered By: Dr. Mccarthy on 10-03-2022 Hematocrit (Bld) [Volume fraction] 33.3 % 37-47 [facility] Laboratory - Chemistry and C hemistry - challengeOrdered By: Dr. Mccarthy on 10-03-2022 ALP [Catalytic activity/Vol] 137 U/L 45-117 [facility] ALT [Catalytic activity/Vol] 16 U/L 13-56 [facility] CO2 [Moles/Vol] 27.0 mmol/L 21.0-32.0 [facility] Globulin (S) [Mass/Vol] 3.0 g/dL 2.2-4.2 [facility] Urea nitrogen/Creatinine [Mass ratio] 12.8 mg/mg 10-20 [facility] - Hematology and Cell countsOrdered By: Dr. Mccarthy on 10-03-2022 Erythrocyte distribution width (RBC) [Entitic vol] 52.3 fL 35.1-43.9 [facility] Erythrocyte distribution width (RBC) [Ratio] 14.8 % 11.6-14.6 [facility] Immature granulocytes/100 WBC (Bld) 0.400 % 0.0-0.9 [facility] Comment on above: IG% - Immature Granu locytes (promyelocytes, myelocytes and metamyelocytes) > 1% indicates that a LEFT SHIFT is Present. MCH (RBC) [Entitic mass] 32.5 pg 27.0-32.0 [facility] Nucleated RBC/100 WBC (Bld) [Ratio] 0 % 0-[address] [facility] [Mass/Vol]Or dered By: Dr. Mccarthy on 10-03-2022 MCHC (RBC) [Mass/Vol] 33.3 g/dL 32-36 [facility] No Panel InformationOrdered By: Dr. Mccarthy on 10-03-2022 Estimated GFR (MDRD) Amer 76 mL/min >60 [facility] Comment on above: GFR Calc Estimated GFR (MDRD) Non-Af Amer 62 mL/min >60 [facility] Comment on above: Non- GFR Calc Platelets bldOrdered By: Dr. Mccarthy on 10-03-2022 Platelets (Bld) [#/Vol] 252 10*3/uL 150-450 [facility] Serum or plasma albumin leo urement (mass/volume)Ordered By: Dr. Mccarthy on 10-03-2022 Albumin [Mass/Vol] 3.6 g/dL 3.2-5.0 [facility] Serum or plasma albumin/glob ulin mass ratioOrdered By: Dr. Mccarthy on 10-03-2022 Albumin/Globulin [Mass ratio] 1.2 {ratio} 0.9-2.4 [facility] Serum or plasma calcium leo urement (mass/volume)Ordered By: Dr. Mccarthy on 10-03-2022 Calcium [Mass/Vol] 9.0 mg/dL 8.5-10.1 [facility] Serum or plasma creatinine m easurement (mass/volume)Ordered By: Dr. Mccarthy on 10-03-2022 Creatinine [Mass/Vol] 0.94 mg/dL 0.55-1.02 [facility] Comment on above: The validity of the calculated GFR & GFRAA in patients over 70 years has not been determined. Clinical correlation is essential. Serum or plasma urea nitroge n measurement (mass/volume)Ordered By: Dr. Mccarthy on 10-03-2022 Urea nitrogen [Mass/Vol] 12 mg/dL 7-18 [facility] Thin prep Papanicolaou smear with manual screeningOrdered By: Dr. Mccarthy on 10-03-2022 Thin prep Papanicolaou smear with manual screening 17 U/L 15-37 [facility] Thin prep Papanicolaou smear with manual screening 5 5-15 [facility] - Drug toxicology Ordered By: Dr. Christianson on 08-06-2022 Amphetamines Ql (U) Negative <1000 ng/mL [facility] Benzodiazepines Ql (U) Negative < 200 ng/mL [facility] Cannabinoids Screen Ql (U) Negative < 50 ng/mL [facility] Cocaine Ql (U) Negative < 300 ng/mL [facility] Opiates Ql (U) Positive < 300 ng/mL [facility] No Panel InformationOrdered By: Dr. Christianson on 08-06-2022 MDMA (Ecstasy) Screen Negative < 500 ng/mL [facility] Miscellaneous Test See comment [facility] Comment on above: [id number] 6+OXYCODONE-B UND (ng/mL) DRUG RESULT SCREEN CUTOFF____ Amphetamines,Urine Negative ng/mL 1000 Amphetamine test includes Amphetamine and Methamphetamine.Barbiturates Negative ng/mL 200Benzodiazepines Negative ng/mL 200Cannabinoid Negative ng/mL 20Cocaine (Metab) Negative ng/mL 300Opiates Negative ng/mL 300 Opiates test includes Codeine, Morphine, Hydromorphone, Hydrocodone. Oxycodone/Oxymorphone,Urine Positive ng/mL 300 Test includes Oxydodone and Oxymorphone. Oxycodone PositiveOxycodone Conf,MS,UR 1871 ng/mL 300 Oxymorphone Positive Oxymorphone Conf,MS,UR 1348 ng/mL 300 TESTING PERFORMED AT [facility]. ORIGINAL REPORT ON FILE IN LAB CONTAINS ADDITIONAL TEST SITE INFORMATION. Urine Barbiturates Screen Negative < 200 ng/mL [facility] Urine Drug Screen Comment [facility] Comment on above: CONFIRMATORY TESTING FOR ALL POSITIVE URINE DRUG SCREENRESULTS WILL ONLY BE SENT OUT UPON PHYSICIAN ORDER. [facility] Urine Drug Screen methods provide only preliminaryanalytical test results. A more specific alternate chemicalmethod must be used in order to obtain a confirmedanalytical result. Gas chromatography/mass spectrometery(GC/MS) is the preferred confirmatory method. Clinicalconsideration and professional judgement should be appliedto any drug of abuse test result, particularly whenpreliminary positive results are used. URINE TCA TESTING MUST BE ORDERED SEPARATELY. USE TESTMNEMONIC: [facility] Urine Methadone Screen Negative < 300 ng/mL [facility] Urine phencyclidine (PCP) de tectionOrdered By: Dr. Christianson on 08-06-2022 Phencyclidine Ql (U) Negative < 25 ng/mL [facility] Absolute lymphocyte countOrd ered By: Dr. Mccarthy on 08-04-2022 Lymphocytes Auto (Unsp spec) [#/Vol] 0.86 10*3/uL 0.83-4.51 [facility] Basophil percentageOrdered B y: Dr. Mccarthy on 08-04-2022 Basophils/100 WBC (Bld) 0.3 % 0-1 [facility] Bilirubin [Mass/Vol] 0.40 mg/dL 0.20-1.00 [facility] Comment on above: For patients on eltr ombopag therapy, use of [place] TBIL is not recommended. Chloride [Moles/Vol] 107 mmol/L 98-107 [facility] Eosinophils/100 WBC (Bld) 0.2 % 0-5 [facility] Glucose [Mass/Vol] 99 mg/dL 74-106 [facility] Neutrophils (Bld) [#/Vol] 10.7 10*3/uL 2.0-7.7 [facility] Neutrophils/100 WBC (Bld) 90.4 % 47-70 [facility] Potassium [Moles/Vol] 4.0 mmol/L 3.5-5.1 [facility] Protein [Mass/Vol] 7.1 g/dL 6.4-8.2 [facility] Sodium [Moles/Vol] 138 mmol/L 136-145 [facility] WBC (Bld) [#/Vol] 11.9 10*3/uL 4.4-11.0 [facility] Blood erythrocytes count (nu mber/volume)Ordered By: Dr. Mccarthy on 08-04-2022 RBC (Bld) [#/Vol] 3.75 10*6/uL 4.2-5.4 [facility] Blood hemoglobin measurement (mass/volume)Ordered By: Dr. Mccarthy on 08-04-2022 Hemoglobin (Bld) [Mass/Vol] 12.1 g/dL 12.0-15.0 [facility] Blood lymphocytes/100 leukoc ytesOrdered By: Dr. Mccarthy on 08-04-2022 Lymphocytes/100 WBC (Bld) 7.2 % 19-41 [facility] Blood monocytes/100 leukocyt esOrdered By: Dr. Mccarthy on 08-04-2022 Monocytes/100 WBC (Bld) 1.4 % 0-10 [facility] Blood platelet mean volumeOr dered By: Dr. Mccarthy on 08-04-2022 Platelet mean volume (Bld) [Entitic vol] 10.1 fL 6.2-12.0 [facility] Determination of erythrocyte mean corpuscular volume (MCV)Ordered By: Dr. Mccarthy on 08-04-2022 MCV (RBC) [Entitic vol] 97.6 fL 81-99 [facility] Hematocrit Auto (Bld) [Volum e fraction]Ordered By: Dr. Mccarthy on 08-04-2022 Hematocrit (Bld) [Volume fraction] 36.6 % 37-47 [facility] Laboratory - Chemistry and C hemistry - challengeOrdered By: Dr. Mccarthy on 08-04-2022 ALP [Catalytic activity/Vol] 85 U/L 45-117 [facility] ALT [Catalytic activity/Vol] 19 U/L 13-56 [facility] CO2 [Moles/Vol] 25.0 mmol/L 21.0-32.0 [facility] Globulin (S) [Mass/Vol] 3.3 g/dL 2.2-4.2 [facility] Urea nitrogen/Creatinine [Mass ratio] 23.7 mg/mg 10-20 [facility] Laboratory - Hematology and Cell countsOrdered By: Dr. Mccarthy on 08-04-2022 Erythrocyte distribution width (RBC) [Entitic vol] 49.7 fL 35.1-43.9 [facility] Erythrocyte distribution width (RBC) [Ratio] 14.1 % 11.6-14.6 [facility] Immature granulocytes/100 WBC (Bld) 0.500 % 0.0-0.9 [facility] Comment on above: IG% - Immature Granu locytes (promyelocytes, myelocytes and metamyelocytes) > 1% indicates that a LEFT SHIFT is Present. MCH (RBC) [Entitic mass] 32.3 pg 27.0-32.0 [facility] Nucleated RBC/100 WBC (Bld) [Ratio] 0 % 0-5 [facility] MCHC Auto (RBC) [Mass/Vol]Or dered By: Dr. Mccarthy on 08-04-2022 MCHC (RBC) [Mass/Vol] 33.1 g/dL 32-36 [facility] No Panel InformationOrdered By: Dr. Mccarthy on 08-04-2022 Estimated GFR (MDRD) Amer 77 mL/min >60 [facility] Comment on above: GFR Calc Estimated GFR (MDRD) Non-Af Amer 63 mL/min >60 [facility] Comment on above: Non- GFR Calc Platelets bldOrdered By: Dr. Mccarthy on 08-04-2022 Platelets (Bld) [#/Vol] 290 10*3/uL 150-450 [facility] Serum or plasma albumin leo urement (mass/volume)Ordered By: Dr. Mccarthy on 08-04-2022 Albumin [Mass/Vol] 3.8 g/dL 3.2-5.0 [facility] Serum or plasma albumin/glob ulin mass ratioOrdered By: Dr. Mccarthy on 08-04-2022 Albumin/Globulin [Mass ratio] 1.2 {ratio} 0.9-2.4 [facility] Serum or plasma calcium leo urement (mass/volume)Ordered By: Dr. Mccarthy on 08-04-2022 Calcium [Mass/Vol] 9.7 mg/dL 8.5-10.1 [facility] Serum or plasma creatinine m easurement (mass/volume)Ordered By: Dr. Mccarthy on 08-04-2022 Creatinine [Mass/Vol] 0.93 mg/dL 0.55-1.02 [facility] Comment on above: The validity of the calculated GFR & GFRAA in patients over 70 years has not been determined. Clinical correlation is essential. Serum or plasma urea nitroge n measurement (mass/volume)Ordered By: Dr. Mccarthy on 08-04-2022 Urea nitrogen [Mass/Vol] 22 mg/dL 7-18 [facility] Thin prep Papanicolaou smear with manual screeningOrdered By: Dr. Mccarthy on 08-04-2022 Thin prep Papanicolaou smear with manual screening 16 U/L 15-37 [facility] Thin prep Papanicolaou smear with manual screening 6 5-15 [facility] XR Lumbar spine 3 Viewson IMPRESSION: Findings as described above. Visual C Developer: FLOWER Transcribe Date/Time: Aug 04 2022 10:45A Dictated by : KARLIE VASQUEZ MD This examination was interpreted and the report reviewed and electronically signed by: KARLIE VASQUEZ MD on Aug 04 2022 10:50AM [facility] DIVISION OF RADIOLOGY * * *Final Report* [...] spine are presented. FINDINGS: There are five gji-fki-huaqbav lumbar vertebrae. Left-sided curvature/levoscoliosis seen on AP view. Status post L4 [...] spine are presented. FINDINGS: There are five mdl-mon-wybwawe lumbar vertebrae. Left-sided curvature/levoscoliosis seen on AP view. Status post L4 [...] replacement. IMPRESSION IMPRESSION: Findings as described above. Visual C Developer: PSCB Transcribe Date/Time: Aug 04 2022 10:45A Dictated by : KARLIE VASQUEZ MD This examination was interpreted and the report reviewed and electronically signed by: KARLIE VASQUEZ MD on Aug 04 2022 10:50AM EST [facility] XR Lumbar spine 3 ViewsOrder ed By: [facility] Provider on 08-04-2022 [facility] XR Lumbar spine 3 Viewson Radiology Study observation (narrative) [facility] Basophil percentageOrdered B y: Dr. Mccarthy on 06-11-2022 Bilirubin [Mass/Vol] 0.30 mg/dL 0.20-1.00 [facility] Comment on above: For patients on eltr ombopag therapy, use of Dim[place] TBIL is not recommended. Chloride [Moles/Vol] 108 mmol/L 98-107 [facility] Glucose [Mass/Vol] 95 mg/dL 74-106 [facility] Potassium [Moles/Vol] 4.1 mmol/L 3.5-5.1 [facility] Protein [Mass/Vol] 7.1 g/dL 6.4-8.2 [facility] Sodium [Moles/Vol] 143 mmol/L 136-145 [facility] Laboratory - Chemistry and C hemistry - challengeOrdered By: Dr. Mccarthy on 06-11-2022 ALP [Catalytic activity/Vol] 86 U/L 45-117 [facility] ALT [Catalytic activity/Vol] 16 U/L 13-56 [facility] CO2 [Moles/Vol] 28.0 mmol/L 21.0-32.0 [facility] Globulin (S) [Mass/Vol] 3.3 g/dL 2.2-4.2 [facility] Urea nitrogen/Creatinine [Mass ratio] 18.6 mg/mg 10-20 [facility] No Panel InformationOrdered By: Dr. Mccarthy on 06-11-2022 Estimated GFR (MDRD) Amer 78 mL/min >60 [facility] Comment on above: GFR Calc Estimated GFR (MDRD) Non-Af Amer 64 mL/min >60 [facility] Comment on above: Non- GFR Calc Serum or plasma albumin leo urement (mass/volume)Ordered By: Dr. Mccarthy on 06-11-2022 Albumin [Mass/Vol] 3.8 g/dL 3.2-5.0 [facility] Serum or plasma albumin/glob ulin mass ratioOrdered By: Dr. Mccarthy on 06-11-2022 Albumin/Globulin [Mass ratio] 1.2 {ratio} 0.9-2.4 [facility] Serum or plasma calcium leo urement (mass/volume)Ordered By: Dr. Mccarthy on 06-11-2022 Calcium [Mass/Vol] 9.3 mg/dL 8.5-10.1 [facility] Serum or plasma creatinine m easurement (mass/volume)Ordered By: Dr. Mccarthy on 06-11-2022 Creatinine [Mass/Vol] 0.92 mg/dL 0.55-1.02 [facility] Comment on above: The validity of the calculated GFR & GFRAA in patients over 70 years has not been determined. Clinical correlation is essential. Serum or plasma urea nitroge n measurement (mass/volume)Ordered By: Dr. Mccarthy on 06-11-2022 Urea nitrogen [Mass/Vol] 17 mg/dL 7-18 [facility] Thin prep Papanicolaou smear with manual screeningOrdered By: Dr. Mccarthy on 06-11-2022 Thin prep Papanicolaou smear with manual screening 15 U/L 15-37 [facility] Thin prep Papanicolaou smear with manual screening 7 5-15 [facility] MRI CERVICAL SPINE WO/W IVCO Non 05-31-2022 MRI CERVICAL SPINE WO/W IVCON * * *Final Report* * * DATE OF EXAM: May 31 2022 2:50PM [facility] 0298 - MRI CERVICAL SPINE WO/W IVCON [...] are 5 lumbar-type vertebrae. Anatomic variant: None. Orchid Grower (topogram) images: Bilateral total hip arthroplasties. Instrumented [...] right for (more content not included)... Normal [facility] MRI THORACIC SPINE WO/W IVCO Non 05-31-2022 MRI THORACIC SPINE WO/W IVCON * * *Final Report* * * DATE OF EXAM: May 31 2022 2:50PM [facility] 0326 - MRI THORACIC SPINE WO/W IVCON [...] are 5 lumbar-type vertebrae. Anatomic variant: None. Orchid Grower (topogram) images: Bilateral total hip arthroplasties. Instrumented [...] T3-T4. Mo (more content not included)... Normal [facility] No Panel Informationon 05-31 [facility] Absolute lymphocyte countOrd ered By: Dr. Mccarthy on 05-08-2022 Lymphocytes Auto (Unsp spec) [#/Vol] 0.78 10*3/uL 0.83-4.51 [facility] Basophil percentageOrdered B y: Dr. Mccarthy on 05-08-2022 Basophils/100 WBC (Bld) 0.4 % 0-1 [facility] Bilirubin [Mass/Vol] 0.30 mg/dL 0.20-1.00 [facility] Comment on above: For patients on eltr ombopag therapy, use of Dimension [place] TBIL is not recommended. Chloride [Moles/Vol] 106 mmol/L 98-107 [facility] Eosinophils/100 WBC (Bld) 0.0 % 0-5 [facility] Glucose [Mass/Vol] 113 mg/dL 74-106 [facility] Comment on above: Fasting Glucose resu lt from 100 to 125 mg/dL suggests IMPAIRED HOMEOSTASIS per A.D.A. criteria. Neutrophils (Bld) [#/Vol] 9.8 10*3/uL 2.0-7.7 [facility] Neutrophils/100 WBC (Bld) 88.3 % 47-70 [facility] Potassium [Moles/Vol] 4.6 mmol/L 3.5-5.1 [facility] Protein [Mass/Vol] 7.0 g/dL 6.4-8.2 [facility] Sodium [Moles/Vol] 140 mmol/L 136-145 [facility] WBC (Bld) [#/Vol] 11.1 10*3/uL 4.4-11.0 [facility] Blood erythrocytes count (nu mber/volume)Ordered By: Dr. Mccarthy on 05-08-2022 RBC (Bld) [#/Vol] 3.36 10*6/uL 4.2-5.4 [facility] Blood hemoglobin measurement (mass/volume)Ordered By: Dr. Mccarthy on 05-08-2022 Hemoglobin (Bld) [Mass/Vol] 10.8 g/dL 12.0-15.0 [facility] Blood lymphocytes/100 leukoc ytesOrdered By: Dr. Mccarthy on 05-08-2022 Lymphocytes/100 WBC (Bld) 7.1 % 19-41 [facility] Blood monocytes/100 leukocyt esOrdered By: Dr. Mccatrhy on 05-08-2022 Monocytes/100 WBC (Bld) 2.2 % 0-10 [facility] Blood platelet mean volumeOr dered By: Dr. Mccarthy on 05-08-2022 Platelet mean volume (Bld) [Entitic vol] 10.0 fL 6.2-12.0 [facility] Determination of erythrocyte mean corpuscular volume (MCV)Ordered By: Dr. Mccarthy on 05-08-2022 MCV (RBC) [Entitic vol] 98.2 fL 81-99 [facility] Hematocrit Auto (Bld) [Volum e fraction]Ordered By: Dr. Mccarthy on 05-08-2022 Hematocrit (Bld) [Volume fraction] 33.0 % 37-47 [facility] Laboratory - Chemistry and C hemistry - challengeOrdered By: Dr. Mccarthy on 05-08-2022 ALP [Catalytic activity/Vol] 84 U/L 45-117 [facility] ALT [Catalytic activity/Vol] 17 U/L 13-56 [facility] CO2 [Moles/Vol] 25.0 mmol/L 21.0-32.0 [facility] Globulin (S) [Mass/Vol] 3.2 g/dL 2.2-4.2 [facility] Urea nitrogen/Creatinine [Mass ratio] 13.2 mg/mg 10-20 [facility] Laboratory - Hematology and Cell countsOrdered By: Dr. Mccarthy on 05-08-2022 Erythrocyte distribution width (RBC) [Entitic vol] 57.7 fL 35.1-43.9 [facility] Erythrocyte distribution width (RBC) [Ratio] 16.0 % 11.6-14.6 [facility] Immature granulocytes/100 WBC (Bld) 2.000 % 0.0-0.9 [facility] Comment on above: IG% - Immature Granu locytes (promyelocytes, myelocytes and metamyelocytes) > 1% indicates that a LEFT SHIFT is Present. MCH (RBC) [Entitic mass] 32.1 pg 27.0-32.0 [facility] Nucleated RBC/100 WBC (Bld) [Ratio] 0 % 0-5 [facility] MCHC Auto (RBC) [Mass/Vol]Or dered By: Dr. Mccarthy on 05-08-2022 MCHC (RBC) [Mass/Vol] 32.7 g/dL 32-36 [facility] No Panel InformationOrdered By: Dr. Mccarthy on 05-08-2022 Estimated GFR (MDRD) Amer 52 mL/min >60 [facility] Comment on above: GFR Calc Estimated GFR (MDRD) Non-Af Amer 43 mL/min >60 [facility] Comment on above: Non- GFR Calc Platelets bldOrdered By: Dr. Mccarthy on 05-08-2022 Platelets (Bld) [#/Vol] 307 10*3/uL 150-450 [facility] Serum or plasma albumin leo urement (mass/volume)Ordered By: Dr. Mccarthy on 05-08-2022 Albumin [Mass/Vol] 3.8 g/dL 3.2-5.0 [facility] Serum or plasma albumin/glob ulin mass ratioOrdered By: Dr. Mccarthy on 05-08-2022 Albumin/Globulin [Mass ratio] 1.2 {ratio} 0.9-2.4 [facility] Serum or plasma calcium leo urement (mass/volume)Ordered By: Dr. Mccarthy on 05-08-2022 Calcium [Mass/Vol] 9.8 mg/dL 8.5-10.1 [facility] Serum or plasma creatinine m easurement (mass/volume)Ordered By: Dr. Mccarthy on 05-08-2022 Creatinine [Mass/Vol] 1.29 mg/dL 0.55-1.02 [facility] Comment on above: The validity of the calculated GFR & GFRAA in patients over 70 years has not been determined. Clinical correlation is essential. Serum or plasma urea nitroge n measurement (mass/volume)Ordered By: Dr. Mccarthy on 05-08-2022 Urea nitrogen [Mass/Vol] 17 mg/dL 7-18 [facility] Thin prep Papanicolaou smear with manual screeningOrdered By: Dr. Mccarthy on 05-08-2022 Thin prep Papanicolaou smear with manual screening 8 U/L 15-37 [facility] Thin prep Papanicolaou smear with manual screening 9 5-15 [facility] XR CERV OTHER 4V AP/LAT/FLX/ EXTon 04-18-2022 IMPRESSION: Findings as discussed under Results portion of report. Visual C Developer: FLOWER Transcribe Date/Time: Apr 18 2022 9:25A Dictated by : SUGEY MINOR DO This examination was interpreted and the report reviewed and electronically signed by: SUGEY MINOR DO on Apr 18 2022 9:36AM [facility] * * *Final Report* * * [...] alignment. No fractures or dislocations are seen. [facility] Provider, Kadie Anne - 04/18/2022 * [...] as discussed under Results portion of report. Visual C Developer: PSCB Transcribe Date/Time: Apr 18 2022 9:25A Dictated by : SUGEY MINOR DO This examination was interpreted and the report reviewed and electronically signed by: SUGEY MINOR DO on Apr 18 2022 9:36AM EST [facility] XR CERV OTHER 4V AP/LAT/FLX/ EXTOrdered By: [facility] Provider on 04-18-2022 [facility] XR CERV OTHER 4V AP/LAT/FLX/ EXTon 04-17-2022 Radiology Study observation (narrative) [facility] Absolute lymphocyte countOrd ered By: Dr. Mccarthy on 03-14-2022 Lymphocytes Auto (Unsp spec) [#/Vol] 0.66 10*3/uL 0.83-4.51 [facility] Basophil percentageOrdered B y: Dr. Mccarthy on 03-14-2022 Basophils/100 WBC (Bld) 0.1 % 0-1 [facility] Bilirubin [Mass/Vol] 0.30 mg/dL 0.20-1.[address] [facility] Comment on above: For patients on eltr ombopag therapy, use of Dim[place] TBIL is not recommended. Chloride [Moles/Vol] 104 mmol/L 98-107 [facility] Eosinophils/100 WBC (Bld) 0.1 % 0-5 [facility] Glucose [Mass/Vol] 91 mg/dL 74-106 [facility] Neutrophils (Bld) [#/Vol] 12.2 10*3/uL 2.0-7.7 [facility] Neutrophils/100 WBC (Bld) 92.0 % 47-70 [facility] Potassium [Moles/Vol] 4.7 mmol/L 3.5-5.1 [facility] Protein [Mass/Vol] 7.1 g/dL 6.4-8.2 [facility] Sodium [Moles/Vol] 137 mmol/L 136-145 [facility] WBC (Bld) [#/Vol] 13.2 10*3/uL 4.4-11.0 [facility] Blood erythrocytes count (nu mber/volume)Ordered By: Dr. Mccarthy on 03-14-2022 RBC (Bld) [#/Vol] 3.33 10*6/uL 4.2-5.4 [facility] Blood hemoglobin measurement (mass/volume)Ordered By: Dr. Mccarthy on 03-14-2022 Hemoglobin (Bld) [Mass/Vol] 10.3 g/dL 12.0-15.0 [facility] Blood lymphocytes/100 leukoc ytesOrdered By: Dr. Mccarthy on 03-14-2022 Lymphocytes/100 WBC (Bld) 5.0 % 19-41 [facility] Blood monocytes/100 leukocyt esOrdered By: Dr. Mccarthy on 03-14-2022 Monocytes/100 WBC (Bld) 2.3 % 0-10 [facility] Blood platelet mean volumeOr dered By: Dr. Mccarthy on 03-14-2022 Platelet mean volume (Bld) [Entitic vol] 10.1 fL 6.2-12.0 [facility] Determination of erythrocyte mean corpuscular volume (MCV)Ordered By: Dr. Mccarthy on 03-14-2022 MCV (RBC) [Entitic vol] 98.5 fL 81-99 [facility] Hematocrit Auto (Bld) [Volum e fraction]Ordered By: Dr. Mccarthy on 03-14-2022 Hematocrit (Bld) [Volume fraction] 32.8 % 37-47 [facility] Laboratory - Chemistry and C hemistry - challengeOrdered By: Dr. Mccarthy on 03-14-2022 ALP [Catalytic activity/Vol] 94 U/L 45-117 [facility] ALT [Catalytic activity/Vol] 20 U/L 13-56 [facility] CO2 [Moles/Vol] 23.0 mmol/L 21.0-32.0 [facility] Globulin (S) [Mass/Vol] 3.4 g/dL 2.2-4.2 [facility] Urea nitrogen/Creatinine [Mass ratio] 18.8 mg/mg 10-20 [facility] Laboratory - Hematology and Cell countsOrdered By: Dr. Mccarthy on 03-14-2022 Erythrocyte distribution width (RBC) [Entitic vol] 50.5 fL 35.1-43.9 [facility] Erythrocyte distribution width (RBC) [Ratio] 14.4 % 11.6-14.6 [facility] Immature granulocytes/100 WBC (Bld) 0.500 % 0.0-0.9 [facility] Comment on above: IG% - Immature Granu locytes (promyelocytes, myelocytes and metamyelocytes) > 1% indicates that a LEFT SHIFT is Present. MCH (RBC) [Entitic mass] 30.9 pg 27.0-32.0 [facility] Nucleated RBC/100 WBC (Bld) [Ratio] 0 % 0-5 [facility] MCHC Auto (RBC) [Mass/Vol]Or dered By: Dr. Mccarthy on 03-14-2022 MCHC (RBC) [Mass/Vol] 31.4 g/dL 32-36 [facility] No Panel InformationOrdered By: Dr. Mccarthy on 03-14-2022 Estimated GFR (MDRD) Amer 79 mL/min >60 [facility] Comment on above: GFR Calc Estimated GFR (MDRD) Non-Af Amer 65 mL/min >60 [facility] Comment on above: Non- GFR Calc Platelets bldOrdered By: Dr. Mccarthy on 03-14-2022 Platelets (Bld) [#/Vol] 320 10*3/uL 150-450 [facility] Serum or plasma albumin leo urement (mass/volume)Ordered By: Dr. Mccarthy on 03-14-2022 Albumin [Mass/Vol] 3.7 g/dL 3.2-5.0 [facility] Serum or plasma albumin/glob ulin mass ratioOrdered By: Dr. Mccarthy on 03-14-2022 Albumin/Globulin [Mass ratio] 1.1 {ratio} 0.9-2.4 [facility] Serum or plasma calcium leo urement (mass/volume)Ordered By: Dr. Mccarthy on 03-14-2022 Calcium [Mass/Vol] 9.5 mg/dL 8.5-10.1 [facility] Serum or plasma creatinine m easurement (mass/volume)Ordered By: Dr. Mccarthy on 03-14-2022 Creatinine [Mass/Vol] 0.91 mg/dL 0.55-1.02 [facility] Comment on above: The validity of the calculated GFR & GFRAA in patients over 70 years has not been determined. Clinical correlation is essential. Serum or plasma urea nitroge n measurement (mass/volume)Ordered By: Dr. Mccarthy on 03-14-2022 Urea nitrogen [Mass/Vol] 17 mg/dL 7-18 [facility] Thin prep Papanicolaou smear with manual screeningOrdered By: Dr. Mccarthy on 03-14-2022 Thin prep Papanicolaou smear with manual screening 15 U/L 15-37 [facility] Thin prep Papanicolaou smear with manual screening 10 5-15 [facility] Laboratory - Drug toxicology Ordered By: Dr. Christianson on 03-05-2022 Amphetamines Ql (U) Negative <1000 ng/mL [facility] Benzodiazepines Ql (U) Negative < 200 ng/mL [facility] Cannabinoids Screen Ql (U) Negative < 50 ng/mL [facility] Cocaine Ql (U) Negative < 300 ng/mL [facility] Opiates Ql (U) Negative < 300 ng/mL [facility] No Panel InformationOrdered By: Dr. Christianson on 03-05-2022 MDMA (Ecstasy) Screen Negative < 500 ng/mL [facility] Miscellaneous Test See comment [facility] Comment on above: [id number] 6+OXYCODONE-B UND (ng/mL) DRUG RESULT SCREEN CUTOFF____ Amphetamines,Urine Negative ng/mL 1000 Amphetamine test includes Amphetamine and Methamphetamine.Barbiturates Negative ng/mL 200Benzodiazepines Negative ng/mL 200Cannabinoid Negative ng/mL 20Cocaine (Metab) Negative ng/mL 300Opiates Positive ng/mL 300 Opiates test includes Codeine, Morphine, Hydromorphone, Hydrocodone. Oxycodone/Oxymorphone,Urine Negative ng/mL 300 Test includes Oxydodone and Oxymorphone. Oxycodone Negative 300 Oxymorphone PositiveOxymorphone Conf,MS,UR 1499 ng/mL 300 [facility]FOR[facility]. ORIGINAL REPORT ON FILE IN LAB CONTAINS ADDITIONAL TEST SITE INFORMATION. Urine Barbiturates Screen Negative < 200 ng/mL [facility] Urine Drug Screen Comment [facility] Comment on above: CONFIRMATORY TESTING FOR ALL POSITIVE URINE DRUG SCREENRESULTS WILL ONLY BE SENT OUT UPON PHYSICIAN ORDER. [facility] Urine Drug Screen methods provide only preliminaryanalytical test results. A more specific alternate chemicalmethod must be used in order to obtain a confirmedanalytical result. Gas chromatography/mass spectrometery(GC/MS) is the preferred confirmatory method. Clinicalconsideration and professional judgement should be appliedto any drug of abuse test result, particularly whenpreliminary positive results are used. URINE TCA TESTING MUST BE ORDERED SEPARATELY. USE TESTMNEMONIC: [facility] Urine Methadone Screen Negative < 300 ng/mL [facility] Urine phencyclidine (PCP) de tectionOrdered By: Dr. Christianson on 03-05-2022 Phencyclidine Ql (U) Negative < 25 ng/mL [facility] EMG(NEURO/NI)on 02-28-2022 [facility] Basophil percentageOrdered B y: Tj Last on 02-25-2022 Chloride [Moles/Vol] 106 mmol/L 98-107 [facility] Glucose [Mass/Vol] 87 mg/dL 74-106 [facility] Potassium [Moles/Vol] 4.4 mmol/L 3.5-5.1 [facility] Sodium [Moles/Vol] 139 mmol/L 136-145 [facility] WBC (Bld) [#/Vol] 7.7 10*3/uL 4.4-11.0 [facility] Blood erythrocytes count (nu mber/volume)Ordered By: Tj Last on 02-25-2022 RBC (Bld) [#/Vol] 3.33 10*6/uL 4.2-5.4 [facility] Blood hemoglobin measurement (mass/volume)Ordered By: Tj Last on 02-25-2022 Hemoglobin (Bld) [Mass/Vol] 10.6 g/dL 12.0-15.0 [facility] Blood platelet mean volumeOr dered By: Tj Last on 02-25-2022 Platelet mean volume (Bld) [Entitic vol] 9.3 fL 6.2-12.0 [facility] Determination of erythrocyte mean corpuscular volume (MCV)Ordered By: Tj Last on 02-25-2022 MCV (RBC) [Entitic vol] 97.3 fL 81-99 [facility] Hematocrit Auto (Bld) [Volum e fraction]Ordered By: Tj Lats on 02-25-2022 Hematocrit (Bld) [Volume fraction] 32.4 % 37-47 [facility] Laboratory - Chemistry and C hemistry - challengeOrdered By: Tj Last on 02-25-2022 CO2 [Moles/Vol] 28.0 mmol/L 21.0-32.0 [facility] Urea nitrogen/Creatinine [Mass ratio] 17.6 mg/mg 10-20 [facility] - Hematology and Cell countsOrdered By: Tj Last on 02-25-2022 Erythrocyte distribution width (RBC) [Entitic vol] 45.6 fL 35.1-43.9 [facility] Erythrocyte distribution width (RBC) [Ratio] 13.2 % 11.6-14.6 [facility] MCH (RBC) [Entitic mass] 31.8 pg 27.0-32.0 [facility] MCHC Auto (RBC) [Mass/Vol]Or dered By: Tj Last on 02-25-2022 MCHC (RBC) [Mass/Vol] 32.7 g/dL 32-36 [facility] No Panel InformationOrdered By: Tj Last on 02-25-2022 Estimated GFR (MDRD) Amer 69 mL/min >60 [facility] Comment on above: GFR Calc Estimated GFR (MDRD) Non-Af Amer 57 mL/min >60 [facility] Comment on above: Non- GFR Calc Platelets bldOrdered By: Tj Last on 02-25-2022 Platelets (Bld) [#/Vol] 334 10*3/uL 150-450 [facility] Serum or plasma calcium leo urement (mass/volume)Ordered By: Tj Last on 02-25-2022 Calcium [Mass/Vol] 9.3 mg/dL 8.5-10.1 [facility] Serum or plasma creatinine m easurement (mass/volume)Ordered By: Tj Last on 02-25-2022 Creatinine [Mass/Vol] 1.02 mg/dL 0.55-1.02 [facility] Comment on above: The validity of the calculated GFR & GFRAA in patients over 70 years has not been determined. Clinical correlation is essential. Serum or plasma urea nitroge n measurement (mass/volume)Ordered By: Tj Last on 02-25-2022 Urea nitrogen [Mass/Vol] 18 mg/dL 7-18 [facility] Thin prep Papanicolaou smear with manual screeningOrdered By: Tj Last on 02-25-2022 Thin prep Papanicolaou smear with manual screening 5 5-15 [facility] Absolute lymphocyte counton 09-14-2022 Lymphocytes Auto (Unsp spec) [#/Vol] 2.52 10*3/uL 0.83-4.51 [facility] Work Phone: Basophil percentageon 2021 Basophils/100 WBC (Bld) 1.2 % 0-1 [facility] Work Phone: Bilirubin [Mass/Vol] 0.20 mg/dL 0.20-1.00 [facility] Work Phone: Comment on above: For patients on eltr ombopag therapy, use of Dimension [place] TBIL is not recommended. Chloride [Moles/Vol] 107 mmol/L 98-107 [facility] Work Phone: Eosinophils/100 WBC (Bld) 2.4 % 0-5 [facility] Work Phone: Glucose [Mass/Vol] 81 mg/dL 74-106 [facility] Work Phone: Neutrophils (Bld) [#/Vol] 2.6 10*3/uL 2.0-7.7 [facility] Work Phone: Neutrophils/100 WBC (Bld) 44.0 % 47-70 [facility] Work Phone: Potassium [Moles/Vol] 4.2 mmol/L 3.5-5.1 [facility] Work Phone: Protein [Mass/Vol] 7.0 g/dL 6.4-8.2 [facility] Work Phone: Sodium [Moles/Vol] 141 mmol/L 136-145 [facility] Work Phone: WBC (Bld) [#/Vol] 5.9 10*3/uL 4.4-11.0 [facility] Work Phone: Blood erythrocytes count (nu mber/volume)on 01-15-2022 RBC (Bld) [#/Vol] 3.08 10*6/uL 4.2-5.4 [facility] Work Phone: Blood hemoglobin measurement (mass/volume)on 01-15-2022 Hemoglobin (Bld) [Mass/Vol] 10.0 g/dL 12.0-15.0 [facility] Work Phone: Blood lymphocytes/100 leukoc yteson 01-15-2022 Lymphocytes/100 WBC (Bld) 43.0 % 19-41 [facility] Work Phone: Blood monocytes/100 leukocyt eson 01-15-2022 Monocytes/100 WBC (Bld) 9.2 % 0-10 [facility] Work Phone: Blood platelet mean volumeon 01-15-2022 Platelet mean volume (Bld) [Entitic vol] 9.6 fL 6.2-12.0 [facility] Work Phone: Determination of erythrocyte mean corpuscular volume (MCV)on 01-15-2022 MCV (RBC) [Entitic vol] 100.3 fL 81-99 [facility] Work Phone: Hematocrit Auto (Bld) [Volum e fraction]on 01-15-2022 Hematocrit (Bld) [Volume fraction] 30.9 % 37-47 [facility] Work Phone: Laboratory - Chemistry and C hemistry - challengeon 01-15-2022 ALP [Catalytic activity/Vol] 110 U/L 45-117 [facility] Work Phone: ALT [Catalytic activity/Vol] 14 U/L 13-56 [facility] Work Phone: CO2 [Moles/Vol] 26.0 mmol/L 21.0-32.0 [facility] Work Phone: Globulin (S) [Mass/Vol] 3.3 g/dL 2.2-4.2 [facility] Work Phone: Urea nitrogen/Creatinine [Mass ratio] 16.8 mg/mg 10-20 [facility] Work Phone: Laboratory - Hematology and Cell countson 01-15-2022 Erythrocyte distribution width (RBC) [Entitic vol] 46.8 fL 35.1-43.9 [facility] Work Phone: Erythrocyte distribution width (RBC) [Ratio] 12.8 % 11.6-14.6 [facility] Work Phone: Immature granulocytes/100 WBC (Bld) 0.200 % 0.0-0.9 [facility] Work Phone: Comment on above: IG% - Immature Granu locytes (promyelocytes, myelocytes and metamyelocytes) > 1% indicates that a LEFT SHIFT is Present. MCH (RBC) [Entitic mass] 32.5 pg 27.0-32.0 [facility] Work Phone: Nucleated RBC/100 WBC (Bld) [Ratio] 0 % 0-5 [facility] Work Phone: MCHC Auto (RBC) [Mass/Vol]on 01-15-2022 MCHC (RBC) [Mass/Vol] 32.4 g/dL 32-36 [facility] Work Phone: No Panel Informationon 01-15 Estimated GFR (MDRD) Amer 74 mL/min >60 [facility] Work Phone: Comment on above: GFR Calc Estimated GFR (MDRD) Non-Af Amer 61 mL/min >60 [facility] Work Phone: Comment on above: Non- GFR Calc Platelets bldon 01-15-2022 Platelets (Bld) [#/Vol] 319 10*3/uL 150-450 [facility] Work Phone: Serum or plasma albumin leo urement (mass/volume)on 01-15-2022 Albumin [Mass/Vol] 3.7 g/dL 3.2-5.0 [facility] Work Phone: Serum or plasma albumin/glob ulin mass ratioon 01-15-2022 Albumin/Globulin [Mass ratio] 1.1 {ratio} 0.9-2.4 [facility] Work Phone: Serum or plasma calcium leo urement (mass/volume)on 01-15-2022 Calcium [Mass/Vol] 9.5 mg/dL 8.5-10.1 [facility] Work Phone: Serum or plasma creatinine m easurement (mass/volume)on 01-15-2022 Creatinine [Mass/Vol] 0.95 mg/dL 0.55-1.02 [facility] Work Phone: Comment on above: The validity of the calculated GFR & GFRAA in patients over 70 years has not been determined. Clinical correlation is essential. Serum or plasma urea nitroge n measurement (mass/volume)on 01-15-2022 Urea nitrogen [Mass/Vol] 16 mg/dL 7-18 [facility] Work Phone: Thin prep Papanicolaou smear with manual screeningon 01-15-2022 Thin prep Papanicolaou smear with manual screening 14 U/L 15-37 [facility] Work Phone: Thin prep Papanicolaou smear with manual screening 8 5-15 [facility] Work Phone: Basophil percentageon 2021 WBC (Bld) [#/Vol] 11.5 10*3/uL 4.4-11.0 [facility] Work Phone: Blood erythrocytes count (nu mber/volume)on 12-12-2021 RBC (Bld) [#/Vol] 2.43 10*6/uL 4.2-5.4 [facility] Work Phone: Blood hemoglobin measurement (mass/volume)on 12-12-2021 Hemoglobin (Bld) [Mass/Vol] 7.9 g/dL 12.0-15.0 [facility] Work Phone: Blood platelet mean volumeon 12-12-2021 Platelet mean volume (Bld) [Entitic vol] 9.6 fL 6.2-12.0 [facility] Work Phone: Determination of erythrocyte mean corpuscular volume (MCV)on 12-12-2021 MCV (RBC) [Entitic vol] 99.2 fL 81-99 [facility] Work Phone: Hematocrit Auto (Bld) [Volum e fraction]on 12-12-2021 Hematocrit (Bld) [Volume fraction] 24.1 % 37-47 [facility] Work Phone: Laboratory - Hematology and Cell countson 12-12-2021 Erythrocyte distribution width (RBC) [Entitic vol] 48.9 fL 35.1-43.9 [facility] Work Phone: Erythrocyte distribution width (RBC) [Ratio] 13.3 % 11.6-14.6 [facility] Work Phone: MCH (RBC) [Entitic mass] 32.5 pg 27.0-32.0 [facility] Work Phone: MCHC Auto (RBC) [Mass/Vol]on 12-12-2021 MCHC (RBC) [Mass/Vol] 32.8 g/dL 32-36 [facility] Work Phone: Platelets bldon 12-12-2021 Platelets (Bld) [#/Vol] 298 10*3/uL 150-450 [facility] Work Phone: Basophil percentageon 2021 Chloride [Moles/Vol] 104 mmol/L 98-107 [facility] Work Phone: Glucose [Mass/Vol] 119 mg/dL 74-106 [facility] Work Phone: Comment on above: Fasting Glucose resu lt from 100 to 125 mg/dL suggests IMPAIRED HOMEOSTASIS per A.D.A. criteria. Potassium [Moles/Vol] 4.0 mmol/L 3.5-5.1 [facility] Work Phone: Sodium [Moles/Vol] 136 mmol/L 136-145 [facility] Work Phone: Laboratory - Chemistry and C hemistry - challengeon 12-11-2021 CO2 [Moles/Vol] 25.0 mmol/L 21.0-32.0 [facility] Work Phone: Urea nitrogen/Creatinine [Mass ratio] 14.9 mg/mg 10-20 [facility] Work Phone: No Panel Informationon 12-11 Estimated Creatinine Clearance Calc 37.32 ml/min [facility] Work Phone: Estimated GFR (MDRD) Amer 100 mL/min >60 [facility] Work Phone: Comment on above: GFR Calc Estimated GFR (MDRD) Non-Af Amer 82 mL/min >60 [facility] Work Phone: Comment on above: Non- GFR Calc Serum or plasma calcium leo urement (mass/volume)on 12-11-2021 Calcium [Mass/Vol] 9.2 mg/dL 8.5-10.1 [facility] Work Phone: Serum or plasma creatinine m easurement (mass/volume)on 12-11-2021 Creatinine [Mass/Vol] 0.74 mg/dL 0.55-1.02 [facility] Work Phone: Comment on above: The validity of the calculated GFR & GFRAA in patients over 70 years has not been determined. Clinical correlation is essential. Serum or plasma urea nitroge n measurement (mass/volume)on 12-11-2021 Urea nitrogen [Mass/Vol] 11 mg/dL 7-18 [facility] Work Phone: Thin prep Papanicolaou smear with manual screeningon 12-11-2021 Thin prep Papanicolaou smear with manual screening 7 5-15 [facility] Work Phone: Glucose Glucometer (BldC) [M ass/Vol]on 12-10-2021 Glucose [Mass/Vol] 115 mg/dL 74-106 [facility] Work Phone: Comment on above: MANAGEMENT OF PATIEN T CARE PER NURSING PROTOCOL Absolute lymphocyte counton 11-28-2021 Lymphocytes Auto (Unsp spec) [#/Vol] 1.33 10*3/uL 0.83-4.51 [facility] Work Phone: [phone] Basophil percentageon 2021 Basophils/100 WBC (Bld) 0.8 % 0-1 [facility] Work Phone: Eosinophils/100 WBC (Bld) 0.9 % 0-5 [facility] Work Phone: [phone] Neutrophils (Bld) [#/Vol] 4.7 10*3/uL 2.0-7.7 [facility] Work Phone: [phone] Neutrophils/100 WBC (Bld) 71.7 % 47-70 [facility] Work Phone: [phone] Bilirubin [Mass/Vol] 0.40 mg/dL 0.20-1.00 [facility] Work Phone: Comment on above: For patients on eltr ombopag therapy, use of Dimension [place] TBIL is not recommended. Protein [Mass/Vol] 7.2 g/dL 6.4-8.2 [facility] Work Phone: [phone] Blood lymphocytes/100 leukoc yteson 11-28-2021 Lymphocytes/100 WBC (Bld) 20.2 % 19-41 [facility] Work Phone: [phone] Blood monocytes/100 leukocyt eson 11-28-2021 Monocytes/100 WBC (Bld) 6.2 % 0-10 [facility] Work Phone: [phone] Direct bilirubinon 2 Bilirubin.direct [Mass/Vol] 0.09 mg/dL 0.00-0.30 [facility] Work Phone: [phone] INR in Blood by Coagulation assayon 11-28-2021 INR Coag (Bld) [Relative time] 1.0 {INR} [facility] Work Phone: [phone] Laboratory - Chemistry and C hemistry - challengeon 11-28-2021 ALP [Catalytic activity/Vol] 97 U/L 45-117 [facility] Work Phone: ALT [Catalytic activity/Vol] 14 U/L 13-56 [facility] Work Phone: Globulin (S) [Mass/Vol] 3.4 g/dL 2.2-4.2 [facility] Work Phone: Magnesium [Mass/Vol] 2.1 mg/dL 1.6-2.6 [facility] Work Phone: Laboratory - Coagulationon 0 11-28-2021 aPTT Coag (Bld) [Time] 29.6 s 24.1-36.2 [facility] Work Phone: PT Coag (PPP) [Time] 13.1 s 11.7-14.9 [facility] Work Phone: Laboratory - Hematology and Cell countson 11-28-2021 Immature granulocytes/100 WBC (Bld) 0.200 % 0.0-0.9 [facility] Work Phone: Comment on above: IG% - Immature Granu locytes (promyelocytes, myelocytes and metamyelocytes) > 1% indicates that a LEFT SHIFT is Present. Nucleated RBC/100 WBC (Bld) [Ratio] 0 % 0-5 [facility] Work Phone: No Panel Informationon 11-28 Fructosamine 233 umol/L 0-285 [facility] Work Phone: Comment on above: Published reference interval for apparently healthysubjects between age 20 and 60 is 205 - 285 umol/L and in apoorly controlled diabetic population is 228 - 563 umol/Lwith a mean of 396 umol/L.Performed at: [address] [id number] Director: Sidney Melo PhD, Phone: [phone] Serum or plasma albumin leo urement (mass/volume)on 11-28-2021 Albumin [Mass/Vol] 3.8 g/dL 3.2-5.0 [facility] Work Phone: Thin prep Papanicolaou smear with manual screeningon 11-28-2021 Thin prep Papanicolaou smear with manual screening 17 U/L 15-37 [facility] Work Phone: [phone] Absolute lymphocyte counton 10-09-2021 Lymphocytes Auto (Unsp spec) [#/Vol] 1.00 10*3/uL 0.83-4.51 [facility] Work Phone: Basophil percentageon 2021 Basophils/100 WBC (Bld) 0.2 % 0-1 [facility] Work Phone: [phone] Bilirubin [Mass/Vol] 0.20 mg/dL 0.20-1.00 [facility] Work Phone: Comment on above: For patients on eltr ombopag therapy, use of Dimension [place] TBIL is not recommended. Chloride [Moles/Vol] 104 mmol/L 98-107 [facility] Work Phone: Eosinophils/100 WBC (Bld) 0.1 % 0-5 [facility] Work Phone: Glucose [Mass/Vol] 98 mg/dL 74-106 [facility] Work Phone: [phone] Neutrophils (Bld) [#/Vol] 10.6 10*3/uL 2.0-7.7 [facility] Work Phone: [phone] Neutrophils/100 WBC (Bld) 85.3 % 47-70 [facility] Work Phone: Potassium [Moles/Vol] 4.5 mmol/L 3.5-5.1 [facility] Work Phone: [phone] Protein [Mass/Vol] 7.1 g/dL 6.4-8.2 [facility] Work Phone: Sodium [Moles/Vol] 136 mmol/L 136-145 [facility] Work Phone: [phone] WBC (Bld) [#/Vol] 12.5 10*3/uL 4.4-11.0 [facility] Work Phone: Blood erythrocytes count (nu mber/volume)on 10-09-2021 RBC (Bld) [#/Vol] 3.57 10*6/uL 4.2-5.4 [facility] Work Phone: Blood hemoglobin measurement (mass/volume)on 10-09-2021 Hemoglobin (Bld) [Mass/Vol] 11.5 g/dL 12.0-15.0 [facility] Work Phone: Blood lymphocytes/100 leukoc yteson 10-09-2021 Lymphocytes/100 WBC (Bld) 8.0 % 19-41 [facility] Work Phone: Blood monocytes/100 leukocyt eson 10-09-2021 Monocytes/100 WBC (Bld) 5.8 % 0-10 [facility] Work Phone: Blood platelet mean volumeon 10-09-2021 Platelet mean volume (Bld) [Entitic vol] 10.2 fL 6.2-12.0 [facility] Work Phone: Determination of erythrocyte mean corpuscular volume (MCV)on 10-09-2021 MCV (RBC) [Entitic vol] 93.6 fL 81-99 [facility] Work Phone: Erythrocyte sedimentation ra vianey 10-09-2021 ESR (Bld) [Velocity] 22 mm/h 0-30 [facility] Work Phone: Hematocrit Auto (Bld) [Volum e fraction]on 10-09-2021 Hematocrit (Bld) [Volume fraction] 33.4 % 37-47 [facility] Work Phone: Laboratory - Chemistry and C hemistry - challengeon 10-09-2021 ALP [Catalytic activity/Vol] 127 U/L 45-117 [facility] Work Phone: ALT [Catalytic activity/Vol] 14 U/L 13-56 [facility] Work Phone: CO2 [Moles/Vol] 26.0 mmol/L 21.0-32.0 [facility] Work Phone: Globulin (S) [Mass/Vol] 3.4 g/dL 2.2-4.2 [facility] Work Phone: Urea nitrogen/Creatinine [Mass ratio] 29.5 mg/mg 10-20 [facility] Work Phone: Laboratory - Hematology and Cell countson 10-09-2021 Erythrocyte distribution width (RBC) [Entitic vol] 43.1 fL 35.1-43.9 [facility] Work Phone: Erythrocyte distribution width (RBC) [Ratio] 12.5 % 11.6-14.6 [facility] Work Phone: Immature granulocytes/100 WBC (Bld) 0.600 % 0.0-0.9 [facility] Work Phone: Comment on above: IG% - Immature Granu locytes (promyelocytes, myelocytes and metamyelocytes) > 1% indicates that a LEFT SHIFT is Present. MCH (RBC) [Entitic mass] 32.2 pg 27.0-32.0 [facility] Work Phone: Nucleated RBC/100 WBC (Bld) [Ratio] 0 % 0-5 [facility] Work Phone: MCHC Auto (RBC) [Mass/Vol]on 10-09-2021 MCHC (RBC) [Mass/Vol] 34.4 g/dL 32-36 [facility] Work Phone: No Panel Informationon 10-09 Estimated GFR (MDRD) Amer 51 mL/min >60 [facility] Work Phone: Comment on above: GFR Calc Estimated GFR (MDRD) Non-Af Amer 42 mL/min >60 [facility] Work Phone: Comment on above: Non- GFR Calc Hepatitis B Surface Antigen Non-Reactive Nonreactive [facility] Work Phone: Hepatitis C Antibody Non-Reactive Nonreactive [facility] Work Phone: Comment on above: Non Reactive: < 0.8 Equivocal: >/= 0.8 to < 1.0 Reactive: >/= 1.0The [facility][NOTE 3] recommends that a reactive/equivocal HCV antibody result be followed up by the HCV Nucleic Acid Amplificationtest (004607) Platelets bldon 10-09-2021 Platelets (Bld) [#/Vol] 345 10*3/uL 150-450 [facility] Work Phone: Serum cyclic citrullinated p eptide IgG antibody assay (units/volume)on 10-09-2021 Cyclic citrullinated peptide IgG Qn 3 units 0-19 [facility] Work Phone: Comment on above: Negative <20 Weak po sitive 20 - 39 Moderate positive 40 - 59 Strong positive >59Performed at: - Lab[address] [id number] Director: Michelle Maynard MD, Phone: [phone] Serum hepatitis B virus surf carson antibody IgG detectionon 10-09-2021 HBV surface IgG Ql (S) Non-Reactive [facility] Work Phone: Comment on above: Non Reactive: Incons istent with immunity less than <10 mIU/mL Reactive: Consistent with immunity greater than or equal to 10 mIU/mL Serum or plasma C reactive p rotein measurement (mass/volume)on 10-09-2021 CRP [Mass/Vol] 4.75 mg/L 0.0-3.0 [facility] Work Phone: Comment on above: C-Reactive Protein ( CRP) provides useful information for thediagnosis, therapy and monitoring of inflammatory processesand associated diseases. For the evaluation of Relative Riskfor Cardiovascular Disease, a High Sensitivity CRP (HSCRP)should be ordered. Serum or plasma albumin leo urement (mass/volume)on 10-09-2021 Albumin [Mass/Vol] 3.7 g/dL 3.2-5.0 [facility] Work Phone: Serum or plasma albumin/glob ulin mass ratioon 06-08-2022 Albumin/Globulin [Mass ratio] 1.1 {ratio} 0.9-2.4 [facility] Work Phone: Serum or plasma calcium leo urement (mass/volume)on 10-09-2021 Calcium [Mass/Vol] 9.9 mg/dL 8.5-10.1 [facility] Work Phone: Serum or plasma creatinine m easurement (mass/volume)on 10-09-2021 Creatinine [Mass/Vol] 1.32 mg/dL 0.55-1.02 [facility] Work Phone: Comment on above: The validity of the calculated GFR & GFRAA in patients over 70 years has not been determined. Clinical correlation is essential. Serum or plasma urea nitroge n measurement (mass/volume)on 10-09-2021 Urea nitrogen [Mass/Vol] 39 mg/dL 7-18 [facility] Work Phone: Serum rheumatoid factor dete ctionon 10-09-2021 Rheumatoid factor Ql (S) < 10.0 IU/mL <15 [facility] Work Phone: Thin prep Papanicolaou smear with manual screeningon 10-09-2021 Thin prep Papanicolaou smear with manual screening 8 U/L 15-37 [facility] Work Phone: Thin prep Papanicolaou smear with manual screening 6 5-15 [facility] Work Phone: Laboratory - Drug toxicology on 07-17-2021 Amphetamines Ql (U) Negative <1000 ng/mL [facility] Work Phone: Benzodiazepines Ql (U) Negative < 200 ng/mL [facility] Work Phone: Cannabinoids Screen Ql (U) Negative < 50 ng/mL [facility] Work Phone: Cocaine Ql (U) Negative < 300 ng/mL [facility] Work Phone: Opiates Ql (U) Positive < 300 ng/mL [facility] Work Phone: No Panel Informationon 07-17 MDMA (Ecstasy) Screen Negative < 500 ng/mL [facility] Work Phone: Miscellaneous Test See comment [facility] Work Phone: Comment on above: TEST RESULT UNITS RE F [id number] 6+Oxycodone-Bund Amphetamines, Urine Negative ng/mL Qpmefm=[id number] Amphetamine test includes Amphetamine and Methamphetamine. Barbiturate Negative ng/mL Roveqh=508 Benzodiazepines Negative ng/mL Uwwaxm=873 Cannabinoids Negative ng/mL Cutoff=20 Cocaine (Metabolite) Negative ng/mL Yhxeur=520 Opiates Negative ng/mL Zxbluu=492 Opiate test includes Codeine, Morphine, Hydromorphone, Hydrocodone. Please Note: Confirmation performed by Mass Spectrometry Oxycodone/Oxymorph Positive Mbsjyc=535 Test includes Oxycodone and Oxymorphone Oxycodone Positive Oxycodone Conf, MS, UR >3000 ng/mL Lszbnd=331 Oxymorphone Positive Oxymorphone Conf, MS, UR >3000 ng/mL Zzyfta=865 0 TESTING PERFORMED AT [facility]. ORIGINAL REPORT ON FILE IN LAB CONTAINS ADDITIONAL TEST SITE INFORMATION. Urine Barbiturates Screen Negative < 200 ng/mL [facility] Work Phone: Urine Drug Screen Comment [facility] Work Phone: Comment on above: CONFIRMATORY TESTING FOR ALL POSITIVE URINE DRUG SCREENRESULTS WILL ONLY BE SENT OUT UPON PHYSICIAN ORDER. VISTA Urine Drug Screen methods provide only preliminaryanalytical test results. A more specific alternate chemicalmethod must be used in order to obtain a confirmedanalytical result. Gas chromatography/mass spectrometery(GC/MS) is the preferred confirmatory method. Clinicalconsideration and professional judgement should be appliedto any drug of abuse test result, particularly whenpreliminary positive results are used. URINE TCA TESTING MUST BE ORDERED SEPARATELY. USE TESTMNEMONIC: [facility] Urine Methadone Screen Negative < 300 ng/mL [facility] Work Phone: Urine phencyclidine (PCP) de tectionon 07-17-2021 Phencyclidine Ql (U) Negative < 25 ng/mL [facility] Work Phone: No Panel Informationon 07-01 SARS-CoV-2 Antigen (Rapid) [facility] Work Phone: .Auto Diffon 01-18-2020 Ammonia (P) [Mass/Vol] 1.10 10 3/mcL High 0.15-1.00 [facility] ([place]) Comment on above: Performed By: #### C SAMARA, ARMANDO, ANEU, BMP, GFR #### [address] [address] Basophils (Bld) [#/Vol] 0.00 10 3/mcL Normal 0.00-0.19 [facility] ([place] Comment on above: Performed By: #### C BCJAYJAYIFF, ANEU, BMP, GFR #### [address] [address] Basophils/100 WBC (Bld) 0.3 % Normal 0.0-2.5 [facility] ([place]) Comment on above: Performed By: #### C BC, ADIFF, ANEU, BMP, GFR #### [address] [address] Eosinophils (Bld) [#/Vol] 0.00 10 3/mcL Normal 0.00-0.40 [facility] ([place]) Comment on above: Performed By: #### C BC, ADIFF, ANEU, BMP, GFR #### [address] [address] Eosinophils/100 WBC (Bld) 0.0 % Normal 0.0-7.0 [facility] ([place]) Comment on above: Performed By: #### C BC, JAYJAYIFF, ANEU, BMP, GFR #### [address] [address] Lymphocytes (Bld) [#/Vol] 1.50 10 3/mcL Normal 0.77-3.85 [facility] ([place]) Comment on above: Performed By: #### C BC, ADIFF, ANEU, BMP, GFR #### [address] [address] Lymphocytes/100 WBC (Bld) 11.0 % Normal 10.0-50.0 [facility] ([place]) Comment on above: Performed By: #### C BC, ADIFF, ANEU, BMP, GFR #### [address] [address] Monocytes/100 WBC (Bld) 8.2 % Normal 1.7-13.0 [facility] ([place]) Comment on above: Performed By: #### C BC, ADIFF, ANEU, BMP, GFR #### [address] [address] Neutrophils/100 WBC (Bld) 80.5 % High 37.0-80.0 [facility] ([place]) Comment on above: Performed By: #### C BC, ADIFF, ANEU, BMP, GFR #### [address] [address] .GFRon 01-18-2020 GFR Non- 63 ml/min/1.73sqm Normal [facility] ([place]) Comment on above: Result Comment: GFR Population [...] C BC, ADIFF, ANEU, BMP, GFR #### [address] [address] GFR 76 ml/min/1.73sqm Normal [facility] ([place]) Comment on above: Result Comment: GFR Population [...] C BC, ADIFF, ANEU, BMP, GFR #### [address] [address] .NEUABSon 01-18-2020 Neutrophils (Bld) [#/Vol] 10.90 10 3/mcL High 2.85-6.16 [facility] ([place]) Comment on above: Performed By: #### C BC, ADIFF, ANEU, BMP, GFR #### [address] [address] BMPon 01-18-2020 Calcium [Mass/Vol] 9.0 mg/dL Normal 8.4-10.2 [facility] ([place]) Comment on above: Performed By: #### C BC, ADIFF, ANEU, BMP, GFR #### [address] [address] Chloride [Moles/Vol] 102 mmol/L Normal 98-107 [facility] ([place]) Comment on above: Performed By: #### C BC, ADIFF, ANEU, BMP, GFR #### [address] [address] CO2 [Moles/Vol] 28 mmol/L Normal 23-31 [facility] ([place]) Comment on above: Performed By: #### C BC, ADIFF, ANEU, BMP, GFR #### [address] [address] Creatinine [Mass/Vol] 0.89 mg/dL Normal 0.55-1.02 [facility] ([place]) Comment on above: Performed By: #### C BC, ADIFF, ANEU, BMP, GFR #### [address] [address] Electrolyte Balance 1.0 mEq/L Normal [facility] ([place]) Comment on above: Performed By: #### C BC, ADIFF, ANEU, BMP, GFR #### [address] [address] Glucose [Mass/Vol] 102 mg/dL Normal 80-115 [facility] ([place]) Comment on above: Performed By: #### C BC, ADIFF, ANEU, BMP, GFR #### [address] [address] Potassium [Moles/Vol] 5.2 mmol/L High 3.5-5.1 [facility] ([place]) Comment on above: Performed By: #### C BC, ADIFF, ANEU, BMP, GFR #### [address] [address] Sodium [Moles/Vol] 131 mmol/L Low 136-145 [facility] ([place]) Comment on above: Performed By: #### C BC, ADIFF, ANEU, BMP, GFR #### [address] [address] Urea nitrogen [Mass/Vol] 27 mg/dL High 7-18 [facility] ([place] Comment on above: Performed By: #### C BC, ADIFF, ANEU, BMP, GFR #### [address] [address] Urea nitrogen/Creatinine [Mass ratio] 30 ratio High 7-27 [facility] ([place] Comment on above: Performed By: #### C BC, ADIFF, ANEU, BMP, GFR #### [address] [address] CBCon 01-18-2020 Erythrocyte distribution width (RBC) [Ratio] 12.5 % Normal 11.5-14.5 [facility] ([place] Comment on above: Performed By: #### C BC, ADIFF, ANEU, BMP, GFR #### [place] [id number] Hematocrit (Bld) [Volume fraction] 24.3 % Low 37.0-47.0 [facility] ([place] Comment on above: Performed By: #### C BC, ADIFF, ANEU, BMP, GFR #### [place] [id number] Hemoglobin (Bld) [Mass/Vol] 8.3 G/dL Low 12.0-16.0 [facility] ([place] Comment on above: Performed By: #### C BC, ADIFF, ANEU, BMP, GFR #### [place] [id number] MCH (RBC) [Entitic mass] 32.6 pg High 27.0-31.2 [facility] ([place] Comment on above: Performed By: #### C BC, ADIFF, ANEU, BMP, GFR #### [address] [address] MCHC (RBC) [Mass/Vol] 34.3 G/dL Normal 33.0-37.0 [facility] ([place] Comment on above: Performed By: #### C BC, ADIFF, ANEU, BMP, GFR #### [address] [address] MCV (RBC) [Entitic vol] 94.9 fL High 80.0-94.0 [facility] ([place] Comment on above: Performed By: #### C BC, ADIFF, ANEU, BMP, GFR #### [address] [address] Platelet mean volume (Bld) [Entitic vol] 8.4 fL Normal 7.4-10.4 [facility] ([place]) Comment on above: Performed By: #### C BC, ADIFF, ANEU, BMP, GFR #### [address] [address] Platelets (Bld) [#/Vol] 215 10 3/mcL Normal 130-400 [facility] ([place] Comment on above: Performed By: #### C BC, ADIFF, ANEU, BMP, GFR #### [address] [address] RBC (Bld) [#/Vol] 2.56 10 6/mcL Low 4.20-5.40 [facility] ([place] Comment on above: Performed By: #### C BC, ADIFF, ANEU, BMP, GFR #### [address] [address] WBC (Bld) [#/Vol] 13.50 10 3/mcL High 4.60-10.80 [facility] ([place] Comment on above: Performed By: #### C BC, ADIFF, ANEU, BMP, GFR #### [address] [address] XR HIP LEFT W/PELVIS 4 VIEWS on [...] PM Sign Date: 01/17/2020 11:11:42 PM Ordering Provider:Dejan Ferrara [facility] ([place] XR FLUORO 1-2 HRS TECH TIMEo n 01-17-2020 XR FLUORO 1-2 HRS TECH TIME ORIGINAL Images acquired, not reported on this accession number. [facility]) .Auto Diffon 01-02-2020 Ammonia (P) [Mass/Vol] 0.50 10 3/mcL Normal 0.15-1.00 [facility] ([place] Comment on above: Performed By: #### C BC, ADIFF, ANEU, BMP, GFR #### [address] [address] Basophils (Bld) [#/Vol] 0.10 10 3/mcL Normal 0.00-0.19 [facility] ([place] Comment on above: Performed By: #### C BC, ADIFF, ANEU, BMP, GFR #### [address] [address] Basophils/100 WBC (Bld) 0.7 % Normal 0.0-2.5 [facility] ([place] Comment on above: Performed By: #### C BC, ADIFF, ANEU, BMP, GFR #### [address] [address] Eosinophils (Bld) [#/Vol] 0.10 10 3/mcL Normal 0.00-0.40 [facility] ([place] Comment on above: Performed By: #### C BC, ADIFF, ANEU, BMP, GFR #### [address] [address] Eosinophils/100 WBC (Bld) 0.9 % Normal 0.0-7.0 [facility] ([place] Comment on above: Performed By: #### C BC, ADIFF, ANEU, BMP, GFR #### [address] [address] Lymphocytes (Bld) [#/Vol] 1.90 10 3/mcL Normal 0.77-3.85 [facility] ([place] Comment on above: Performed By: #### C BC, ADIFF, ANEU, BMP, GFR #### [address] [address] Lymphocytes/100 WBC (Bld) 23.8 % Normal 10.0-50.0 [facility] ([place] Comment on above: Performed By: #### C BC, ADIFF, ANEU, BMP, GFR #### [address] [address] Monocytes/100 WBC (Bld) 6.9 % Normal 1.7-13.0 [facility] ([place]) Comment on above: Performed By: #### C BC, ADIFF, ANEU, BMP, GFR #### [address] [address] Neutrophils/100 WBC (Bld) 67.7 % Normal 37.0-80.0 [facility] ([place]) Comment on above: Performed By: #### C BC, ADIFF, ANEU, BMP, GFR #### [address] [address] .GFRon 01-02-2020 GFR Non- 58 ml/min/1.73sqm Normal [facility] ([place]) Comment on above: Result Comment: [...] C BC, ADIFF, ANEU, BMP, GFR #### [address] [address] GFR 70 ml/min/1.73sqm Normal [facility] ([place]) Comment on above: Result Comment: [...] C BC, ADIFF, ANEU, BMP, GFR #### [address] [address] .NEUABSon 01-02-2020 Neutrophils (Bld) [#/Vol] 5.30 10 3/mcL Normal 2.85-6.16 [facility] ([place] Comment on above: Performed By: #### C BC, ADIFF, ANEU, BMP, GFR #### [address] [address] BMPon 01-02-2020 Calcium [Mass/Vol] 9.5 mg/dL Normal 8.4-10.2 [facility] ([place]) Comment on above: Performed By: #### C BC, ADIFF, ANEU, BMP, GFR #### [address] [address] Chloride [Moles/Vol] 104 mmol/L Normal 98-107 [facility] ([place] Comment on above: Performed By: #### C BC, ADIFF, ANEU, BMP, GFR #### [address] [address] CO2 [Moles/Vol] 26 mmol/L Normal 23-31 [facility] ([place] Comment on above: Performed By: #### C BC, ADIFF, ANEU, BMP, GFR #### [address] [address] Creatinine [Mass/Vol] 0.96 mg/dL Normal 0.55-1.02 [facility] ([place] Comment on above: Performed By: #### C BC, ADIFF, ANEU, BMP, GFR #### [address] [address] Electrolyte Balance 8.0 mEq/L Normal [facility] ([place]) Comment on above: Performed By: #### C BC, ADIFF, ANEU, BMP, GFR #### [address] [address] Glucose [Mass/Vol] 85 mg/dL Normal 80-115 [facility] ([place] Comment on above: Performed By: #### C BC, ADIFF, ANEU, BMP, GFR #### [address] [address] Potassium [Moles/Vol] 4.5 mmol/L Normal 3.5-5.1 [facility] ([place] Comment on above: Performed By: #### C BC, ADIFF, ANEU, BMP, GFR #### [address] [address] Sodium [Moles/Vol] 138 mmol/L Normal 136-145 [facility] ([place] Comment on above: Performed By: #### C BC, ADIFF, ANEU, BMP, GFR #### [address] [address] Urea nitrogen [Mass/Vol] 28 mg/dL High 7-18 [facility] ([place] Comment on above: Performed By: #### C BC, ADIFF, ANEU, BMP, GFR #### [address] [address] Urea nitrogen/Creatinine [Mass ratio] 29 ratio High 7-27 [facility] ([place] Comment on above: Performed By: #### C BC, ADIFF, ANEU, BMP, GFR #### [address] [address] CBCon 01-02-2020 Erythrocyte distribution width (RBC) [Ratio] 13.0 % Normal 11.5-14.5 [facility] ([place] Comment on above: Order Comment: Pre-A dmission Testing Performed By: #### C BC, ADIFF, ANEU, BMP, GFR #### [address] [address] Hematocrit (Bld) [Volume fraction] 30.5 % Low 37.0-47.0 [facility] ([place] Comment on above: Order Comment: Pre-A dmission Testing Performed By: #### C BC, ADIFF, ANEU, BMP, GFR #### [address] [address] Hemoglobin (Bld) [Mass/Vol] 10.7 G/dL Low 12.0-16.0 [facility] ([place] Comment on above: Order Comment: Pre-A dmission Testing Performed By: #### C BC, ADIFF, ANEU, BMP, GFR #### [address] [address] MCH (RBC) [Entitic mass] 33.4 pg High 27.0-31.2 [facility] ([place] Comment on above: Order Comment: Pre-A dmission Testing Performed By: #### C BC, ADIFF, ANEU, BMP, GFR #### [address] [address] MCHC (RBC) [Mass/Vol] 35.1 G/dL Normal 33.0-37.0 [facility] ([place] Comment on above: Order Comment: Pre-A dmission Testing Performed By: #### C BC, ADIFF, ANEU, BMP, GFR #### [address] [address] MCV (RBC) [Entitic vol] 95.1 fL High 80.0-94.0 [facility] ([place] Comment on above: Order Comment: Pre-A dmission Testing Performed By: #### C BC, ADIFF, ANEU, BMP, GFR #### [address] [address] Platelet mean volume (Bld) [Entitic vol] 8.8 fL Normal 7.4-10.4 [facility] ([place] Comment on above: Order Comment: Pre-A dmission Testing Performed By: #### C BC, ADIFF, ANEU, BMP, GFR #### [address] [address] Platelets (Bld) [#/Vol] 287 10 3/mcL Normal 130-400 [facility] ([place] Comment on above: Order Comment: Pre-A dmission Testing Performed By: #### C BC, ADIFF, ANEU, BMP, GFR #### Jalil [address] [address] RBC (Bld) [#/Vol] 3.20 10 6/mcL Low 4.20-5.40 [facility] ([place] Comment on above: Order Comment: Pre-A dmission Testing Performed By: #### C BC, ADIFF, ANEU, BMP, GFR #### [address] [address] WBC (Bld) [#/Vol] 7.80 10 3/mcL Normal 4.60-10.80 [facility] ([place] Comment on above: Order Comment: Pre-A dmission Testing Performed By: #### C BC, ADIFF, ANEU, BMP, GFR #### Jalil [address] [address] Clinical Summary: HMSPatient IDon [id number] OOP Invalid Interpretation Code [facility] Work Phone: Office Visit: Postop - subse quent visit, Rm: 2017 NEGATED: Highlighted rowDocumentation of current medications (procedure) Done Invalid Interpretation Code [facility] Work Phone: NEGATED: Highlighted rowMRI (magnetic resonance imaging) history of the Lumbar spine on 05/22/2017 at [facility] Invalid Interpretation Code [facility] Work Phone: NEGATED: Highlighted rowTobacco smoking status NHIS Tobacco smoking status NHIS Invalid Interpretation Code [facility] Work Phone: NEGATED: Highlighted rowxray history of the Lumbar spine on 05/14/2017 at [facility] Invalid Interpretation Code [facility] Work Phone: Office Visit: Spine Visiton 01-13-2017 Documentation of current medications (procedure) Done Invalid Interpretation Code [facility] Work Phone: Tobacco smoking status NHIS Unknown Invalid Interpretation Code [facility] Work Phone: Tobacco use CP Former smoker Invalid Interpretation Code [facility] Work Phone: [phone] Office Visiton 11-11-2016 Documentation of current medications (procedure) Done Invalid Interpretation Code [facility] Work Phone: [phone] Tobacco smoking status NHIS Unknown Invalid Interpretation Code [facility] Work Phone: [phone] Tobacco use CP Former smoker Invalid Interpretation Code [facility] Work Phone: [phone] Office Visit: Spine Visiton 10-14-2016 Documentation of current medications (procedure) Done Invalid Interpretation Code [employer] Work Phone: Protein mass conc Done [facility] Work Phone: [phone] Tobacco smoking status NHIS Unknown Invalid Interpretation Code [facility] Work Phone: [phone] Tobacco smoking status NHIS Former smoker [facility] Work Phone: [phone] Tobacco use CP Former smoker Invalid Interpretation Code [employer] Work Phone: Office Visit: Spine Visiton 07-07-2016 Documentation of current medications (procedure) Done Invalid Interpretation Code [facility] Work Phone: Tobacco smoking status NHIS Unknown Invalid Interpretation Code [facility] Work Phone: [phone] Tobacco use [facility] Former smoker Invalid Interpretation Code [facility] Work Phone: [phone] Panel Information Nasal Screen MRSA/MSSA [facility] Work Phone: Vital Signs Date Time Vital Sign Value Performing Clinician Facility 11-18-2024 11:10-0400 Body height 147.32 cm Krystin AVILA Work Phone: [facility] 11-18-2024 11:10-0400 Body mass index (BMI) [Ratio] 19.8 kg/m2 Krystin AVILA Work Phone: [facility] 11-18-2024 11:10-0400 Body weight 43.09 kg Krystin Henrry [employer] Work Phone: [facility] 09-15-2024 14:24-0400 Body temperature 98.24 [degF] DR DEJAN FERRARA MD [facility] 09-15-2024 14:24-0400 Diastolic Blood Pressure Non-Invasive 58 mm[Hg] DR DEJAN FERRARA MD [facility] 09-15-2024 14:24-0400 Heart rate 68 /min DR DEJAN FERRARA MD [facility] 09-15-2024 14:24-0400 Reason For Taking VItal Signs DR DEJAN FERRARA MD [facility] 09-15-2024 14:24-0400 Respiratory rate 18 /min DR DEJAN FERRARA MD [facility] 09-15-2024 14:24-0400 Systolic Blood Pressure Non-Invasive 117 mm[Hg] DR DEJAN FERRARA MD [facility] 09-15-2024 11:15-0400 Body temperature 98.78 [degF] DR DEJAN FERRARA MD [facility] 09-15-2024 11:15-0400 Diastolic Blood Pressure Non-Invasive 90 mm[Hg] DR DEJAN FERRARA MD [facility] 09-15-2024 11:15-0400 Heart rate 94 /min DR DEJAN FERRARA MD [facility] 09-15-2024 11:15-0400 Reason For Taking VItal Signs DR DEJAN FERRARA MD [facility] 09-15-2024 11:15-0400 Respiratory rate 18 /min DR DEJAN FERRARA MD [facility] 09-15-2024 11:15-0400 Systolic Blood Pressure Non-Invasive 117 mm[Hg] DR DEJAN FERRARA MD [facility] 09-15-2024 07:00-0400 Body temperature 97.7 [degF] DR DEJAN FERRARA MD [facility] 09-15-2024 07:00-0400 Diastolic Blood Pressure Non-Invasive 74 mm[Hg] DR DEJAN FERRARA MD [facility] 09-15-2024 07:00-0400 Heart rate 88 /min DR DEJAN FERRARA MD [facility] 09-15-2024 07:00-0400 Systolic Blood Pressure Non-Invasive 123 mm[Hg] DR DEJAN FERRARA MD [facility] 09-15-2024 04:10-0400 Heart rate 86 /min DR DEJAN FERRARA MD [facility] 09-14-2024 19:43-0400 Heart rate 87 /min DR DEJAN FERRARA MD [facility] 09-14-2024 00:04-[address] DEJAN FERRARA MD [facility] 09-14-2024 00:04-[address] DEJAN FERRARA MD [facility] 09-13-2024 14:57-0400 Heart rate 74 /min DR DEJAN FERRARA MD [facility] 09-13-2024 14:47-0400 Body height 147.[address] DEJAN FERRARA MD [facility] 09-13-2024 14:47-0400 Body weight 43.[address] DEJAN FERRARA MD [facility] 09-13-2024 14:47-0400 Body weight 19.91 kg/m2 DR DEJAN FERRARA MD [facility] 09-13-2024 13:10-0400 Body temperature 97.52 [degF] DR DEJAN FERRARA MD [facility] 09-13-2024 13:00-0400 Respiratory Rate - Anes 12 br/min DR DEJAN FERRARA MD [facility] 09-13-2024 12:55-0400 Respiratory Rate - Anes 13 br/min DR DEJAN FERRARA MD [facility] 09-13-2024 12:50-0400 Respiratory Rate - Anes 15 br/min DR DEJAN FERRARA MD [facility] 09-13-2024 12:45-0400 Body temperature 96.8 [degF] DR DEJAN FERRARA MD [facility] 09-13-2024 12:30-0400 Body temperature 96.8 [degF] DR DEJAN FERRARA MD [facility] 09-13-2024 12:15-0400 Body temperature 96.8 [degF] DR DEJAN FERRARA MD [facility] 09-13-2024 08:41-0400 Body height 147.[address] DEJAN FERRARA MD [facility] 09-13-2024 08:41-0400 Body temperature 98.06 [degF] DR DEJAN FERRARA MD [facility] 09-13-2024 08:41-0400 Body weight 43.[address] DEJAN FERRARA MD [facility] 09-13-2024 08:41-0400 Heart rate 84 /min DR DEJAN FERRARA MD [facility] 08-26-2024 08:22-0400 Blood Pressure Cuff Size DR DEJAN FERRARA MD [facility] 08-26-2024 08:22-[address] DEJAN FERRARA MD [facility] 08-26-2024 08:22-[address] DEJAN FERRARA MD [facility] 08-26-2024 08:22-0400 Body height 147.[address] DEJAN FERRARA MD [facility] 08-26-2024 08:22-0400 Body weight 43.[address] DEJAN FERRARA MD [facility] 08-26-2024 08:22-0400 Body weight 19.91 kg/m2 DR DEJAN FERRARA MD [facility] 06-28-2024 15:02-0500 Body temperature 98.2 [degF] Krystin العراقي NP-C Work Phone: [facility] 06-28-2024 15:02-0500 Diastolic blood pressure 84 mm[Hg] Krystin العراقي NP-C Work Phone: [facility] 06-28-2024 15:02-0500 Heart rate 103 /min Krystin Henrry [employer] HOUSEK[employer]PER-C Work Phone: [facility] 06-28-2024 15:02-0500 Respiratory rate 17 /min Krystin Henrry [employer] HOU[employer]PER-C Work Phone: [facility] 06-28-2024 15:02-0500 SaO2% (BldA) [Mass fraction] 97 % Krystin Haasam [employer] HOU[employer]-C Work Phone: [facility] 06-28-2024 15:02-0500 Systolic blood pressure 131 mm[Hg] Krystin Henrry [employer] HOUSEKEEPER-C Work Phone: [facility] 06-24-2024 17:15-0500 Body height 147.32 cm Krystin Henrry [employer] HOUSEKEEPER-C Work Phone: [facility] 06-24-2024 17:15-0500 Body mass index (BMI) [Ratio] 19 kg/m2 Krystin Henrry [employer] HOU[employer] Work Phone: [facility] 06-24-2024 17:15-0500 Body weight 41.27 kg Krystin Haasam [employer] HOU[employer]PER-C Work Phone: [facility] 06-24-2024 16:45-0500 Inhaled oxygen flow rate 4 L/min Krystin Henrry [employer] HOUSEK[employer]PER-[employer] Work Phone: [facility] 10-27-2023 10:42-0400 Body height 147.3 cm Leslie Monet MD Work Phone: [facility] 10-27-2023 10:42-0400 Body mass index (BMI) [Ratio] 21.2 kg/m2 Leslie Monet MD Work Phone: [facility] 10-27-2023 10:42-0400 Body weight 46 kg Leslie Monet MD Work Phone: [facility] 10-27-2023 10:42-0400 Diastolic blood pressure 78 mm[Hg] Leslie Monet MD Work Phone: [facility] 10-27-2023 10:42-0400 Heart rate 94 /min Leslie Monet MD Work Phone: [facility] 10-27-2023 10:42-0400 Respiratory rate 16 /min Leslie Monet MD Work Phone: [facility] 10-27-2023 10:42-0400 SaO2% (BldA) [Mass fraction] 99 % Leslie Monet MD Work Phone: [facility] 10-27-2023 10:42-0400 Systolic blood pressure 130 mm[Hg] Leslie Monet MD Work Phone: [facility] 09-29-2023 09:58-0400 Body mass index (BMI) [Ratio] 21.21 kg/m2 Wisam Mills MD Work Phone: [facility] 09-29-2023 09:58-0400 Body temperature 97.3 [degF] Wisam Mills MD Work Phone: [facility] 09-29-2023 09:58-0400 Body weight 46.04 kg Wisam Mills MD Work Phone: [facility] 09-29-2023 09:58-0400 Diastolic blood pressure 76 mm[Hg] Wisam Mills MD Work Phone: [facility] 09-29-2023 09:58-0400 Heart rate 96 /min Wisam Mills MD Work Phone: [facility] 09-29-2023 09:58-0400 SaO2% (BldA) [Mass fraction] 98 % Wisam Mills MD Work Phone: [facility] 09-29-2023 09:58-0400 Systolic blood pressure 122 mm[Hg] Wisam Mills MD Work Phone: [facility] 09-21-2023 10:25-0400 Body mass index (BMI) [Ratio] 20.78 kg/m2 Chris Bull MD Work Phone: [facility] 09-21-2023 10:25-0400 Body weight 45.1 kg Chris Bull MD Work Phone: [facility] 09-21-2023 10:25-0400 Diastolic blood pressure 83 mm[Hg] Chris Bull MD Work Phone: [facility] 09-21-2023 10:25-0400 Heart rate 98 /min Chris Bull MD Work Phone: [facility] 09-21-2023 10:25-0400 SaO2% (BldA) [Mass fraction] 98 % Chris Bull MD Work Phone: [facility] 09-21-2023 10:25-0400 Systolic blood pressure 123 mm[Hg] Chris Bull MD Work Phone: [facility] 07-22-2023 12:22-0400 Body temperature 97 [degF] DO Mike Ruchi Work Phone: [facility] 07-22-2023 12:22-0400 Diastolic blood pressure 52 mm[Hg] DO Mike Ruchi Work Phone: [facility] 07-22-2023 12:22-0400 Heart rate 100 /min DO Mike Ruchi Work Phone: [facility] 07-22-2023 12:22-0400 Respiratory rate 18 /min DO Mike Ruchi Work Phone: [facility] 07-22-2023 12:22-0400 SaO2% (BldA) [Mass fraction] 97 % DO Mike Ruchi Work Phone: [facility] 07-22-2023 12:22-0400 Systolic blood pressure 110 mm[Hg] DO Mike Ruchi Work Phone: [facility] 07-22-2023 11:03-0400 Inhaled oxygen flow rate 4 L/min DO Mike Ruchi Work Phone: [facility] 07-22-2023 06:08-0400 Body height 147.32 cm DO Mike Ruchi Work Phone: [facility] 07-22-2023 06:08-0400 Body mass index (BMI) [Ratio] 21.7 kg/m2 DO Mike Hopper Work Phone: [facility] 07-22-2023 06:08-0400 Body weight 47 kg DO Mike Hopper Work Phone: [facility] 03-24-2023 10:29-0500 Body temperature 97.5 [degF] Wisam Mills MD Work Phone: [facility] 03-24-2023 10:29-0500 Body weight 44.23 kg Wisam Mills MD Work Phone: [facility] 03-24-2023 10:29-0500 Diastolic blood pressure 81 mm[Hg] Wisam Mills MD Work Phone: [facility] 03-24-2023 10:29-0500 Heart rate 102 /min Wisam Mills MD Work Phone: [facility] 03-24-2023 10:29-0500 SaO2% (BldA) [Mass fraction] 98 % Wisam Mills MD Work Phone: [facility] 03-24-2023 10:29-0500 Systolic blood pressure 132 mm[Hg] Wisam Mills MD Work Phone: [facility] 03-23-2023 09:21-0500 Body height 147.3 cm Chris Bull MD Work Phone: [facility] 03-23-2023 09:21-0500 Diastolic blood pressure 75 mm[Hg] Chris Bull MD Work Phone: [facility] 03-23-2023 09:21-0500 Heart rate 79 /min Chris Bull MD Work Phone: [facility] 03-23-2023 09:21-0500 SaO2% (BldA) [Mass fraction] 98 % Chris Bull MD Work Phone: [facility] 03-23-2023 09:21-0500 Systolic blood pressure 116 mm[Hg] Chris Bull MD Work Phone: [facility] 02-25-2023 09:59-0400 Body height 147.3 cm Wisam Mills MD Work Phone: [facility] 02-25-2023 09:59-0400 Body temperature 98.01 [degF] Wisam Mills MD Work Phone: [facility] 02-25-2023 09:59-0400 Body weight 44 kg Wisam Mills MD Work Phone: [facility] 02-25-2023 09:59-0400 Diastolic blood pressure 74 mm[Hg] Wisam Mills MD Work Phone: [facility] 02-25-2023 09:59-0400 Heart rate 68 /min Wisam Mills MD Work Phone: [facility] 02-25-2023 09:59-0400 SaO2% (BldA) [Mass fraction] 99 % Wisam Mills MD Work Phone: [facility] 02-25-2023 09:59-0400 Systolic blood pressure 114 mm[Hg] Wisam Mills MD Work Phone: [facility] 01-19-2023 10:00-0400 Body weight 43.5 kg Chris Bull MD Work Phone: [facility] 01-19-2023 10:00-0400 Diastolic blood pressure 75 mm[Hg] Chris Bull MD Work Phone: [facility] 01-19-2023 10:00-0400 Heart rate 89 /min Chris Bull MD Work Phone: [facility] 01-19-2023 10:00-0400 SaO2% (BldA) [Mass fraction] 99 % Chris Bull MD Work Phone: [facility] 01-19-2023 10:00-0400 Systolic blood pressure 137 mm[Hg] Chris Bull MD Work Phone: [facility] 10-21-2022 10:20-0400 Body height 147.32 cm [facility] 10-20-2022 08:20-0400 Body height 144.8 cm Chris Bull MD Work Phone: [facility] 10-20-2022 08:20-0400 Body weight 48.26 kg Chris Bull MD Work Phone: [facility] 10-20-2022 08:20-0400 Diastolic blood pressure 78 mm[Hg] Chris Bull MD Work Phone: [facility] 10-20-2022 08:20-0400 Heart rate 83 /min Chris Bull MD Work Phone: [facility] 10-20-2022 08:20-0400 SaO2% (BldA) [Mass fraction] 97 % Chris Bull MD Work Phone: [facility] 10-20-2022 08:20-0400 Systolic blood pressure 122 mm[Hg] Chris Bull MD Work Phone: [facility] 09-10-2022 10:40-0400 Body height 144.8 cm Leslie Monet MD Work Phone: [facility] 09-10-2022 10:40-0400 Body weight 47.63 kg Leslie Monet MD Work Phone: [facility] 09-10-2022 10:40-0400 Diastolic blood pressure 71 mm[Hg] Leslie Monet MD Work Phone: [facility] 09-10-2022 10:40-0400 Heart rate 77 /min Leslie Monet MD Work Phone: [facility] 09-10-2022 10:40-0400 SaO2% (BldA) [Mass fraction] 97 % Leslie Monet MD Work Phone: [facility] 09-10-2022 10:40-0400 Systolic blood pressure 115 mm[Hg] Leslie Monet MD Work Phone: [facility] 08-26-2022 11:12-0400 Body temperature 98.01 [degF] Wisam Mills MD Work Phone: [facility] 08-26-2022 11:12-0400 Body weight 48.44 kg Wisam Mills MD Work Phone: [facility] 08-26-2022 11:12-0400 Diastolic blood pressure 80 mm[Hg] Wisam Mills MD Work Phone: [facility] 08-26-2022 11:12-0400 Heart rate 81 /min Wisam Mills MD Work Phone: [facility] 08-26-2022 11:12-0400 Respiratory rate 18 /min Wisam Mills MD Work Phone: [facility] 08-26-2022 11:12-0400 SaO2% (BldA) [Mass fraction] 98 % Wisam Mills MD Work Phone: [facility] 08-26-2022 11:12-0400 Systolic blood pressure 135 mm[Hg] Wisam Mills MD Work Phone: [facility] 07-23-2022 10:45-0400 Body height 144.8 cm Leslie Monet MD Work Phone: [facility] 07-23-2022 10:45-0400 Body weight 49.44 kg Leslie Monet MD Work Phone: [facility] 07-23-2022 10:45-0400 Diastolic blood pressure 89 mm[Hg] Leslie Monet MD Work Phone: [facility] 07-23-2022 10:45-0400 Heart rate 91 /min Leslie Monet MD Work Phone: [facility] 07-23-2022 10:45-0400 SaO2% (BldA) [Mass fraction] 96 % Leslie Monet MD Work Phone: [facility] 07-23-2022 10:45-0400 Systolic blood pressure 147 mm[Hg] Leslie Monet MD Work Phone: [facility] 06-23-2022 14:11-0500 Body height 147.3 cm Chris Bull MD Work Phone: [facility] 06-23-2022 14:11-0500 Body weight 50.12 kg Chris Bull MD Work Phone: [facility] 06-23-2022 14:11-0500 Diastolic blood pressure 85 mm[Hg] Chris Bull MD Work Phone: [facility] 06-23-2022 14:11-0500 Heart rate 104 /min Chris Bull MD Work Phone: [facility] 06-23-2022 14:11-0500 SaO2% (BldA) [Mass fraction] 99 % Chris Bull MD Work Phone: [facility] 06-23-2022 14:11-0500 Systolic blood pressure 130 mm[Hg] Chris Bull MD Work Phone: [facility] 06-04-2022 12:52-0500 Body height 147.3 cm Adrián PARKINSONC Work Phone: [facility] 06-04-2022 12:52-0500 Body weight 47.63 kg Adrián GUTIERREZ-C Work Phone: [facility] 06-04-2022 12:52-0500 Diastolic blood pressure 70 mm[Hg] Adrián GUTIERREZ-C Work Phone: [facility] 06-04-2022 12:52-0500 Heart rate 93 /min Adrián GUTIERREZ-C Work Phone: [facility] 06-04-2022 12:52-0500 SaO2% (BldA) [Mass fraction] 98 % Adrián GUTIERREZ-C Work Phone: [facility] 06-04-2022 12:52-0500 Systolic blood pressure 120 mm[Hg] Adrián GUTIERREZ-C Work Phone: [facility] 04-17-2022 09:11-0500 Body height 147.3 cm Adrián GUTIERREZ-C Work Phone: [facility] 04-17-2022 09:11-0500 Body weight 48.81 kg Adrián GUTIERREZ-C Work Phone: [facility] 04-17-2022 09:11-0500 Diastolic blood pressure 68 mm[Hg] Adrián GUTIERREZ-C Work Phone: [facility] 04-17-2022 09:11-0500 Heart rate 79 /min Adrián GUTIERREZ-C Work Phone: [facility] 04-17-2022 09:11-0500 SaO2% (BldA) [Mass fraction] 97 % Adrián PARKINSONC Work Phone: [facility] 04-17-2022 09:11-0500 Systolic blood pressure 120 mm[Hg] Adrián GUTIERREZ-C Work Phone: [facility] 02-07-2022 10:27-0400 Body weight 46.72 kg Mayur Cao MD Work Phone: [facility] 02-07-2022 10:27-0400 Diastolic blood pressure 85 mm[Hg] Mayur Cao MD Work Phone: [facility] 02-07-2022 10:27-0400 Heart rate 84 /min Mayur Cao MD Work Phone: [facility] 02-07-2022 10:27-0400 Systolic blood pressure 141 mm[Hg] Mayur Cao MD Work Phone: [facility] 12-25-2021 10:41-0400 Body height 147.[address] Luis Alberto Moran Work Phone: [facility] Work Phone: 12-12-2021 10:00-0400 Body temperature 98.4 [degF] Dr. Leia Matute Work Phone: [facility] Work Phone: 12-12-2021 10:00-0400 Diastolic blood pressure 55 mm[Hg] Dr. Leia Matute Work Phone: [facility] Work Phone: 12-12-2021 10:00-0400 Heart rate 94 /min Dr. Leia Matute Work Phone: [facility] Work Phone: 12-12-2021 10:00-0400 Respiratory rate 18 /min Dr. Leia Matute Work Phone: [facility] Work Phone: 12-12-2021 10:00-0400 SaO2% (BldA) [Mass fraction] 97 % Dr. Leia Matute Work Phone: [facility] Work Phone: 12-12-2021 10:00-0400 Systolic blood pressure 96 mm[Hg] Dr. Leia Matute Work Phone: [facility] Work Phone: 12-10-2021 15:41-0400 Body mass index (BMI) [Ratio] 21.1 kg/m2 Dr. Leia Matute Work Phone: [facility] Work Phone: 12-10-2021 15:41-0400 Body weight 45.[address] Leia Matute Work Phone: [facility] Work Phone: 12-10-2021 15:00-0400 Inhaled oxygen flow rate 4 L/min Dr. Leia Matute Work Phone: [facility] Work Phone: 10-04-2021 10:40-0400 Body height 177.[address] Leia Matute Work Phone: [facility] Work Phone: 09-09-2021 08:12-0400 Body mass index (BMI) [Ratio] 16.2 kg/m2 Dr. Leia Matute Work Phone: [facility] Work Phone: 09-09-2021 08:12-0400 Body temperature 97.9 [degF] Dr. Leia Matute Work Phone: [facility] Work Phone: 09-09-2021 08:12-0400 Body weight 51.[address] Leia Matute Work Phone: [facility] Work Phone: 09-09-2021 08:12-0400 Diastolic blood pressure 74 mm[Hg] Dr. Leia Matute Work Phone: [facility] Work Phone: 09-09-2021 08:12-0400 Heart rate 81 /min Dr. Leia Matute Work Phone: [facility] Work Phone: 09-09-2021 08:12-0400 Respiratory rate 14 /min Dr. Leia Matute Work Phone: [facility] Work Phone: 09-09-2021 08:12-0400 SaO2% (BldA) [Mass fraction] 99 % Dr. Leia Matute Work Phone: [facility] Work Phone: 09-09-2021 08:12-0400 Systolic blood pressure 132 mm[Hg] Dr. Leia Matute Work Phone: [facility] Work Phone: 09-09-2021 08:12-0400 Body height 177.[address] Leia Matute Work Phone: [facility] Work Phone: 09-09-2021 08:12-0400 Body mass index (BMI) [Ratio] 16.2 kg/m2 Dr. Leia Matute Work Phone: [facility] Work Phone: 09-09-2021 08:12-0400 Body temperature 97.9 [degF] Dr. Leia Matute Work Phone: [facility] Work Phone: 09-09-2021 08:12-0400 Body weight 51.[address] Leia Matute Work Phone: [facility] Work Phone: 09-09-2021 08:12-0400 Diastolic blood pressure 74 mm[Hg] Dr. Leia Matute Work Phone: [facility] Work Phone: 09-09-2021 08:12-0400 Heart rate 81 /min Dr. Leia Matute Work Phone: [facility] Work Phone: 09-09-2021 08:12-0400 Respiratory rate 14 /min Dr. Leia Matute Work Phone: [facility] Work Phone: 09-09-2021 08:12-0400 SaO2% (BldA) [Mass fraction] 99 % Dr. Leia Matute Work Phone: [facility] Work Phone: 09-09-2021 08:12-0400 Systolic blood pressure 132 mm[Hg] Dr. Leia Matute Work Phone: [facility] Work Phone: 08-23-2021 09:58-0400 Body mass index (BMI) [Ratio] 23.7 kg/m2 Dr. Leia Matute Work Phone: [facility] Work Phone: 08-23-2021 09:58-0400 Body temperature 96.1 [degF] Dr. Leia Matute Work Phone: [facility] Work Phone: 08-23-2021 09:58-0400 Body weight 51.[address] Leia Matute Work Phone: [facility] Work Phone: 08-23-2021 09:58-0400 Diastolic blood pressure 70 mm[Hg] Dr. Leia Matute Work Phone: [facility] Work Phone: 08-23-2021 09:58-0400 Heart rate 78 /min Dr. Leia Matute Work Phone: [facility] Work Phone: 08-23-2021 09:58-0400 Respiratory rate 16 /min Dr. Leia Matute Work Phone: [facility] Work Phone: 08-23-2021 09:58-0400 SaO2% (BldA) [Mass fraction] 98 % Dr. Leia Matute Work Phone: [facility] Work Phone: 08-23-2021 09:58-0400 Systolic blood pressure 124 mm[Hg] Dr. Leia Matute Work Phone: [facility] Work Phone: 08-23-2021 09:58-0400 Body height 147.[address] Leia Matute Work Phone: [facility] Work Phone: 08-23-2021 09:58-0400 Body mass index (BMI) [Ratio] 23.7 kg/m2 Dr. Leia Matute Work Phone: [facility] Work Phone: 08-23-2021 09:58-0400 Body temperature 96.1 [degF] Dr. Leia Matute Work Phone: [facility] Work Phone: 08-23-2021 09:58-0400 Body weight 51.[address] Leia Matute Work Phone: [facility] Work Phone: 08-23-2021 09:58-0400 Diastolic blood pressure 70 mm[Hg] Dr. Leia Matute Work Phone: [facility] Work Phone: 08-23-2021 09:58-0400 Heart rate 78 /min Dr. Leia Matute Work Phone: [facility] Work Phone: 08-23-2021 09:58-0400 Respiratory rate 16 /min Dr. Leia Matute Work Phone: [facility] Work Phone: 08-23-2021 09:58-0400 SaO2% (BldA) [Mass fraction] 98 % Dr. Leia Matute Work Phone: [facility] Work Phone: 08-23-2021 09:58-0400 Systolic blood pressure 124 mm[Hg] Dr. Leia Matute Work Phone: [facility] Work Phone: 07-02-2021 07:08-0500 Body temperature 97.8 [degF] Dr. Leia Matute Work Phone: [facility] Work Phone: 07-02-2021 07:08-0500 Diastolic blood pressure 67 mm[Hg] Dr. Leia Matute Work Phone: [facility] Work Phone: 07-02-2021 07:08-0500 Heart rate 68 /min Dr. Leia Matute Work Phone: [facility] Work Phone: 07-02-2021 07:08-0500 Respiratory rate 18 /min Dr. Leia Matute Work Phone: [facility] Work Phone: 07-02-2021 07:08-0500 SaO2% (BldA) [Mass fraction] 99 % Dr. Leia Matute Work Phone: [facility] Work Phone: 07-02-2021 07:08-0500 Systolic blood pressure 100 mm[Hg] Dr. Leia Matute Work Phone: [facility] Work Phone: 07-02-2021 05:13-0500 Body height 147.[address] Leia Matute Work Phone: [facility] Work Phone: 07-02-2021 05:13-0500 Body mass index (BMI) [Ratio] 24.2 kg/m2 Dr. Leia Matuet Work Phone: [facility] Work Phone: 07-02-2021 05:13-0500 Body weight 52.[address] Leia Matute Work Phone: [facility] Work Phone: 07-07-2016 09:59-0500 BMI (Body Mass Index) 18.3 kg/m2 [facility] Work Phone: 07-07-2016 09:59-0500 Height 165.1 cm [facility] Work Phone: 07-07-2016 09:59-0500 Weight 49.9 kg Vanessa Barrera [facility] Work Phone: NEGATED: Highlighted [id number] 12:04-0400 BMI (Body Mass Index) 21.56 kg/m2 Marleni Chirinos RN [facility] [place] [facility] Work Phone: NEGATED: Highlighted [id number] 12:04-0400 BP Diastolic 83 mm[Hg] Marleni Chirinos RN [facility] [place] [facility] Work Phone: NEGATED: Highlighted [id number] 12:04-0400 BP Systolic 126 mm[Hg] Marleni Chirinos RN [facility] Work Phone: NEGATED: Highlighted [id number] 12:04-0400 Height 152.4 cm Marleni Chirinos RN [facility] Work Phone: NEGATED: Highlighted [id number] 12:04-0400 Height 152 cm Marleni Chirinos RN [facility] Work Phone: NEGATED: Highlighted [id number] 12:04-0400 Pulse (Heart Rate) 65 /min Marleni Chirinos RN [facility] Work Phone: NEGATED: Highlighted [id number] 12:04-0400 Weight 49.9 kg Marleni Chirinos RN [facility] Work Phone: NEGATED: Highlighted [id number] 12:04-0400 Weight 50 kg Marleni Chirinos RN [facility] Work Phone: Encounters Encounter Date Encounter Type Care Provider Facility Start: 12-16-2024 End: 12-16-2024 ambulatory Krystin AVILA Work Phone: -[facility] Start: 12-16-2024 End: 12-16-[address] Denis Loja MD -[facility] Work Phone: Start: 12-16-2024 End: 12-16-2024 ambulatory Denis Loja Facility:[facility] Start: 11-18-2024 End: 11-18-[address] Nilesh Schwartz MD -[facility] Start: 11-18-2024 End: 11-18-2024 ambulatory Krystin العراقي NP-C Work Phone: [facility] Start: 09-13-2024 End: 09-15-2024 Evaluation and management of inpatient DR DEJAN FERRARA MD [facility] Start: 08-26-2024 End: 08-26-[address] DEJAN FERRARA MD Facility:[facility] Start: 08-26-2024 End: 08-26-[address] DEJAN FERRARA MD [facility] Start: 08-26-2024 End: 08-26-[address] DEJAN FERRARA MD [facility] Start: 08-26-2024 End: 08-26-[address] DEJAN FERRARA MD Facility:[facility] Start: 08-24-2024 End: 08-24-2024 ambulatory Krystin العراقي NP-C Work Phone: [facility] Work Phone: Start: 08-24-2024 End: 08-24-[address] Marion Christianson MD -Laboratory Work Phone: Start: 08-24-2024 End: 08-24-2024 ambulatory Marion Christianson Facility:[facility] Start: 08-19-2024 End: 08-19-[address] Dejan Ferrara MD -Laboratory, [place] Work Phone: Start: 08-19-2024 End: 08-19-2024 ambulatory Dejan Ferrara Facility:[facility] Start: 08-05-2024 End: 08-05-2024 ambulatory Krystin العراقي [employer]C Work Phone: [facility] Work Phone: Start: 08-05-2024 End: 08-05-[address] Dejan Ferrara MD -Laboratory, [place] Work Phone: Start: 08-05-2024 End: 08-05-2024 ambulatory Dejan Ferrara Facility:[facility] Start: 07-12-2024 ambulatory Tj Boothe y:[facility] Start: 06-28-2024 Encounter for other preprocedural examination Angela Govea [facility] Start: 06-27-2024 Non-patient / Non-visit Dr. Madison Irwin MD -[facility] Work Phone: Start: 06-26-2024 Non-patient / Non-visit Dr. Osorio [facility] Work Phone: Start: 06-25-2024 Non-patient / Non-visit [facility] Osorio [facility] Work Phone: Start: 06-24-2024 Non-patient / Non-visit Dr. Gemma Govea MD -[facility] Work Phone: Start: 06-24-2024 ambulatory Dejan Ferrara Facility: [facility] Start: 06-24-2024 End: 06-28-2024 Evaluation and management of inpatient Dr. Dejan Ferrara MD -[facility] Work Phone: Start: 06-17-2024 Encounter for other preprocedural examination Krystin Henrry [facility] Start: 06-15-2024 ambulatory Nilesh Schwartz Facility:[facility] Start: 06-15-2024 Non-patient / Non-visit Dr. Tip MATA -[facility] Start: 06-15-2024 End: 06-15-2024 Patient encounter procedure Krystin العراقي [employer]-C -Cardiovascular Services Work Phone: Start: 06-15-2024 End: 06-15-2024 ambulatory Krystin Henrry Facility:[facility] Start: 06-08-2024 End: 07-06-2024 Telephone encounter Leslie Monet MD Work Phone: Endocrinology Comment on above: Patient Update Start: 06-03-2024 End: 06-03-2024 Patient encounter procedure Krystin Henrry [employer]-C -Laboratory, [place] Work Phone: Start: 06-03-2024 End: 06-03-2024 ambulatory Krystin العراقي Facility:[facility] Start: 05-27-2024 End: 05-27-[address] Dejan Ferrara MD -Laboratory, [place] Work Phone: Start: 05-26-2024 End: 05-26-[address] Gama Stout MD -[facility] Work Phone: Start: 05-26-2024 End: 05-27-2024 ambulatory Dejan Ferrara Facility:[facility] Start: 04-15-2024 End: 04-15-2024 Patient encounter procedure Krystin العراقي [employer]-C -Outpatient Breast Imaging Work Phone: Start: 04-15-2024 End: 04-15-2024 ambulatory Krystin العراقي Facility:[facility] Start: 04-12-2024 End: 04-12-[address] Gama Stout MD -[facility] Work Phone: Start: 04-12-2024 End: 04-12-2024 ambulatory Gama Stout Facility:[facility] Start: 03-22-2024 End: 03-22-2024 ambulatory Sharad Chinchilla Facility:[facility] Start: 03-01-2024 End: 03-01-2024 ambulatory Krystin العراقي Facility:[facility] Start: 01-20-2024 End: 01-20-2024 ambulatory Marion Christianson Facility:[facility] Start: 12-16-2023 ambulatory Leslie Monet MD Work Phone: Endocrinology Comment on above: Vitamin D Start: 12-16-2023 E-mail encounter fro m caregiver Leslie Monet MD Work Phone: Endocrinology Start: 12-15-2023 Telephone encounter Leslie Cardozo i, MD Work Phone: Endocrinology Comment on above: Results Start: 12-15-2023 End: 12-15-2023 ambulatory MIKE ROLLE [facility] Facility:[facility] Start: 12-15-2023 End: 12-15-2023 Patient encounter procedure Nurse Americo Yuen Mc Work Phone: Endocrinology Comment on above: Age-related osteopor osis with current pathological fracture with routine healing, subsequent encounter (Primary Dx) Start: 12-14-2023 Telephone encounter Miley Nelson MD Work Phone: Endocrinology Comment on above: CAM Order Request Start: 11-02-2023 End: 11-02-2023 ambulatory MIKE GAMEZNGER Facility:[facility] Start: 10-30-2023 Telephone encounter Leslie Cardozo i, MD Work Phone: Endocrinology Comment on above: CAM Order Start: 10-27-2023 Telephone encounter Leslie Cardozo i, MD Work Phone: Endocrinology Comment on above: Orders Start: 10-27-2023 End: 10-27-2023 ambulatory LESLIE MONET Facility:[facility] Start: 10-27-2023 End: 10-27-2023 Patient encounter procedure Leslie Monet MD Work Phone: Endocrinology Comment on above: Age-related osteopor osis with current pathological fracture with routine healing, subsequent encounter (Primary Dx); Hyperparathyroidism (HCC) Start: 10-20-2023 End: 10-20-2023 ambulatory EDGARDO NOONAN MD [facility] Start: 10-01-2023 End: 10-01-2023 ambulatory MIKE SARIAH [facility] Facility:[facility] Start: 10-01-2023 End: 10-01-2023 Patient encounter procedure Nurse Americo Yuen Mc Work Phone: Endocrinology Comment on above: Age-related osteopor osis with current pathological fracture with routine healing, subsequent encounter (Primary Dx) Start: 09-29-2023 End: 09-29-2023 ambulatory Wisam Mills MD Work Phone: Hematology/Oncology Comment on above: Anemia, unspecified type (Primary Dx) Start: 09-29-2023 End: 09-29-2023 Patient encounter procedure Wisam Mills MD Work Phone: Hematology/Oncology Start: 09-21-2023 End: 09-22-2023 ambulatory UNKNOWN PROVIDER Facility:[facility] Start: 09-21-2023 End: 09-21-2023 ambulatory CHRIS BULL Facility:[facility] Start: 09-21-2023 End: 09-21-2023 Patient encounter procedure Chris Bull MD Work Phone: [facility] Comment on above: Cervical spondylosis without myelopathy (Primary Dx) Start: 08-31-2023 End: 08-31-2023 ambulatory MIKE HOPPER Facility:[facility] Start: 08-31-2023 End: 08-31-2023 Patient encounter procedure Nurse Americo [facility] Work Phone: Endocrinology Comment on above: Age-related osteopor osis with current pathological fracture with routine healing, subsequent encounter (Primary Dx) Start: 08-05-2023 End: 08-05-2023 ambulatory DO Mike Hopper Work Phone: [facility] Work Phone: Start: 08-05-2023 End: 08-05-2023 Patient encounter procedure DO Mike Hopper Work Phone: [facility]-Laboratory Work Phone: Start: 08-04-2023 End: 08-04-2023 ambulatory DO Mike Hopper Work Phone: [facility] Work Phone: Start: 08-04-2023 End: 08-04-2023 Patient encounter procedure DO Mike Hopper Work Phone: [facility] Work Phone: Start: 07-24-2023 End: 07-24-2023 Patient encounter procedure DO Mike Barnetter Work Phone: [facility] Work Phone: Start: 07-22-2023 Telephone encounter Leslie Cardozo i, MD Work Phone: Endocrinology Comment on above: Outside Lab Results (Dexa scan 2022) Start: 07-22-2023 Non-patient / Non-visit DO Giancarlo mayerafrhat Ruchi Work Phone: [facility] Start: 07-22-2023 End: 07-22-2023 Admission to same day surgery center DO Mike Gameznger Work Phone: [facility] Start: 07-22-2023 End: 07-22-2023 ambulatory DO Mike Carmencita GamezRuchi Work Phone: [facility] Work Phone: Start: 07-17-2023 Telephone encounter Leslie Cardozo i, MD Work Phone: Endocrinology Start: 07-15-2023 End: 07-15-2023 Non-patient / Non-visit DO Mike Gameznger Work Phone: [facility] Work Phone: Start: 06-08-2023 End: 06-08-2023 Patient encounter procedure DO Mike Gameznger Work Phone: [facility] Work Phone: Start: 06-03-2023 End: 06-03-2023 ambulatory DO Mike M Ruchi Work Phone: [facility] Work Phone: Start: 06-03-2023 End: 06-03-2023 Patient encounter procedure DO Mike Ruchi Work Phone: [facility]-Cat Scan, [facility] Work Phone: Start: 05-19-2023 End: 05-19-2023 Patient encounter procedure DO Mike Hopper Work Phone: [facility] Work Phone: Start: 05-13-2023 End: 05-13-2023 ambulatory DO Mike Hopper Work Phone: [facility] Work Phone: Start: 05-13-2023 End: 05-13-2023 Patient encounter procedure DO Mike Hopper Work Phone: [facility]Laboratory Work Phone: Start: 04-22-2023 End: 04-22-2023 Patient encounter procedure Nurse Americo Yuen Mc Work Phone: Endocrinology Comment on above: Age-related osteopor osis with current pathological fracture with routine healing, subsequent encounter (Primary Dx) Start: 04-15-2023 End: 04-15-2023 ambulatory [facility] Work Phone: Start: 04-15-2023 End: 04-15-2023 Patient encounter procedure [facility]Labor[facility] Work Phone: Start: 04-14-2023 End: 04-14-2023 ambulatory [facility] Work Phone: Start: 04-14-2023 End: 04-14-2023 Patient encounter procedure [facility]-Outpatient [facility] Work Phone: Start: 03-24-2023 End: 03-24-2023 ambulatory Wisam Mills MD Work Phone: Hematology/Oncology Comment on above: 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) Start: 03-24-2023 End: 03-24-2023 Patient encounter procedure Wisam Mills MD Work Phone: [facility] Start: 03-23-2023 End: 03-23-2023 Patient encounter procedure Nurse Americo Yuen Mc Work Phone: Endocrinology Comment on above: Age-related osteopor osis with current pathological fracture with routine healing, subsequent encounter (Primary Dx) Closed stable burst fracture of third thoracic vertebra with routine healing, subsequent encounter (Primary Dx) Start: 03-13-2023 End: 03-13-2023 Subsequent hospital visit by physician [facility] Comment on above: 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] Start: 02-25-2023 End: 02-25-2023 ambulatory Wisam Mills MD Work Phone: Hematology/Oncology Comment on above: 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) Start: 02-25-2023 End: 02-25-2023 Patient encounter procedure Wisam Mills MD Work Phone: [facility] Start: 02-18-2023 End: 02-18-2023 Patient encounter procedure Nurse Americo Yuen Mc Work Phone: Endocrinology Comment on above: Age-related osteopor osis with current pathological fracture with routine healing, subsequent encounter (Primary Dx) Start: 02-04-2023 End: 02-04-2023 Patient encounter procedure [facility] Work Phone: Start: 01-23-2023 Telephone encounter Mike Hopper DO Work Phone: [facility] Start: 01-19-2023 End: 01-19-2023 Patient encounter procedure Chris Bull MD Work Phone: [facility] Comment on above: Closed stable burst fracture of third thoracic vertebra with routine healing, subsequent encounter (Primary Dx); Spinal stenosis of cervical region; Arthrodesis status Start: 01-19-2023 End: 01-19-2023 Patient encounter procedure Nurse Americo Yuen Mc Work Phone: Endocrinology Comment on above: Age-related osteopor osis with current pathological fracture with routine healing, subsequent encounter (Primary Dx) Start: 12-18-2022 End: 12-18-2022 Patient encounter procedure [facility] Start: 12-16-2022 E-mail encounter diaz m caregiver [facility] Provider EMMY YUEN Start: 12-16-2022 Patient encounter procedure [facility] Endocrinology Comment on above: Evenity Injection Mi ssed Appointment Start: 12-16-2022 Telephone encounter Leslie Cardozo i, MD Work Phone: Endocrinology Comment on above: Appointment Start: 11-27-2022 ambulatory [facility] Facility: [facility] Start: 11-13-2022 End: 11-13-2022 Patient encounter procedure Nurse Americo Yuen Mc Work Phone: Endocrinology Comment on above: Age-related osteopor osis with current pathological fracture with routine healing, subsequent encounter (Primary Dx) Start: 10-24-2022 Telephone encounter Chris guillen MD Work Phone: Neurology Comment on above: Xray Results Start: 10-21-2022 End: 10-21-2022 ambulatory [facility] Work Phone: Start: 10-21-2022 End: 10-21-2022 Patient encounter procedure [facility] Start: 10-20-2022 ambulatory UNKNOWN PROVIDER Facili ty:[facility] Start: 10-20-2022 End: 10-20-2022 Subsequent hospital visit by physician [facility] Work Phone: Radiology Comment on above: Closed stable burst fracture of third thoracic vertebra with routine healing, subsequent encounter [S22.031D] Start: 10-20-2022 End: 10-20-2022 Patient encounter procedure Chris Bull MD Work Phone: [facility] Comment on above: Closed stable burst fracture of third thoracic vertebra with routine healing, subsequent encounter (Primary Dx) Start: 10-03-2022 End: 10-03-2022 ambulatory [facility] Work Phone: Start: 10-03-2022 End: 10-03-2022 Patient encounter procedure [facility] Start: 09-10-2022 End: 09-10-2022 Patient encounter procedure Nurse Americo Yuen Mc Work Phone: Endocrinology Comment on above: Age-related osteopor osis with current pathological fracture with routine healing, subsequent encounter (Primary Dx) Age-related osteopor osis with current pathological fracture with routine healing, subsequent encounter (Primary Dx); Other specified disorders of bone density and structure, unspecified site ; Localized osteoporosis ([place]) ; Hyperparathyroidism (HCC) Start: 08-28-2022 End: 08-28-2022 ambulatory [facility] Work Phone: Start: 08-28-2022 End: 08-28-2022 Patient encounter procedure [facility], [facility] Start: 08-26-2022 End: 08-26-2022 ambulatory Wisam Mills MD Work Phone: Hematology/Oncology Comment on above: 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); Age-related osteoporosis with current pathological fracture with routine healing, subsequent encounter; Abnormal SPEP Start: 08-26-2022 End: 08-26-2022 Patient encounter procedure Wisam Mills MD Work Phone: [facility] Start: 08-06-2022 End: 08-06-2022 ambulatory [facility] Work Phone: Start: 08-06-2022 End: 08-06-2022 Patient encounter procedure [facility] Start: 08-05-2022 Orders Only Leslie Monet MD Work Phone: Endocrinology Comment on above: Abnormal SPEP (Prima ry Dx); Age-related osteoporosis with current pathological fracture with routine healing, subsequent encounter Results Start: 08-04-2022 End: 08-04-2022 [facility] Work Phone: Start: 08-04-2022 End: 08-04-2022 Patient encounter procedure [facility], [place] Start: 07-31-2022 End: 07-31-2022 Subsequent hospital visit by physician X[facility] Work Phone: Radiology Comment on above: Age-related [...] other specified body structures Start: 06-24-2022 ambulatory Chris Bull MD Work Phone: [facility] Comment on above: Endocrinology Start: 06-23-2022 End: 06-23-2022 Patient encounter procedure Chris Bull MD Work Phone: [facility] Comment on above: Age-related osteopor osis with current pathological fracture with routine healing, subsequent encounter (Primary Dx); Fusion of spine of cervicothoracic region; Arthrodesis status; Adverse effect of treatment, initial encounter; Closed stable burst fracture of third thoracic vertebra with routine healing, subsequent encounter; Age-related osteoporosis with current pathological fracture, vertebra(e), initial encounter for fracture (HCC) Start: 06-11-2022 End: 06-11-2022 ambulatory DO Mike Hopper Work Phone: [facility] Work Phone: Start: 06-11-2022 End: 06-11-2022 Patient encounter procedure DO Mike Hopper Work Phone: [facility] Start: 06-04-2022 End: 06-04-2022 Patient encounter procedure Adrián Pulido PA-C Work Phone: [facility] Comment on above: Fusion of spine of c ervicothoracic region (Primary Dx); Arthrodesis status; Adverse effect of treatment, initial encounter; Closed stable burst fracture of third thoracic vertebra with routine healing, subsequent encounter Start: 05-31-2022 ambulatory ADRIÁN Quiros lity:[phone] Start: 05-31-2022 End: 05-31-2022 Subsequent [facility] Work Phone: [facility] Comment on above: Arthrodesis status [ Z98.1] Cervicalgia [M54.2] Start: 05-08-2022 End: 05-08-2022 ambulatory DO Mike Hopper Work Phone: [facility] Work Phone: Start: 05-08-2022 End: 05-08-2022 Patient encounter procedure DO Mike Hopper Work Phone: [facility] Start: 04-30-2022 End: 04-30-2022 ambulatory DO Mike Hopper Work Phone: [facility] Work Phone: Start: 04-30-2022 End: 04-30-2022 Patient encounter procedure DO Mike Hopper Work Phone: [facility]Radiology, [facility] Start: 04-17-2022 End: 04-17-2022 Subsequent hospital visit by physician [facility] Beth Gallegos Work Phone: Radiology Comment on above: Cervicalgia [M54.2] Start: 04-17-2022 End: 04-17-2022 Patient encounter procedure Adrián Pulido PA-C Work Phone: [facility] Comment on above: Cervicalgia (Primary Dx); Arthrodesis status; Adverse effect of treatment, initial encounter Start: 03-17-2022 End: 03-17-2022 ambulatory DO Mike Hopper Work Phone: [facility] Work Phone: Start: 03-17-2022 End: 03-17-2022 Patient encounter procedure DO Mike Hopper Work Phone: [facility] Start: 03-14-2022 End: 03-14-2022 ambulatory DO Mike Hopper Work Phone: [facility] Work Phone: Start: 03-14-2022 End: 03-14-2022 Patient encounter procedure DO Mike Hopper Work Phone: [facility] Start: 03-13-2022 ambulatory Mayur holt MD Work Phone: Neurology Comment on above: Pain in arm and shou lder from pinched nerve. Start: 03-05-2022 End: 03-05-2022 ambulatory DO Mike Hopper Work Phone: [facility] Work Phone: Start: 03-05-2022 End: 03-05-2022 Patient encounter procedure DO Mike Hopper Work Phone: [facility]Labor[facility] Start: 03-03-2022 Telephone encounter Mayur Cao MD Work Phone: Neurology Comment on above: Medication Problem Start: 02-28-2022 End: 02-28-2022 ambulatory Emg 850) Neurology Comment on above: EMG Start: 02-28-2022 End: 02-28-2022 Patient encounter procedure [facility] 1 Neur Jessica (Max Weight: 850) JESSICA Start: 02-27-2022 Telephone encounter Mayur Cao MD Work Phone: Neurology Comment on above: [facility] (Surgery clearance) Start: 02-25-2022 End: 02-25-[address] Luis Alberto Moran Work Phone: [facility] Work Phone: Start: 02-25-2022 End: 02-25-[address] Luis Alberto Moran Work Phone: [facility] Services/Neurology Start: 02-25-2022 Non-patient / Non-visit DO Giancarlo Hopper Work Phone: [facility] Start: 02-07-2022 End: 02-07-2022 Patient encounter procedure Mayur Cao MD Work Phone: Neurology Comment on above: Radiculopathy, cervi hung region (Primary Dx) Start: 01-22-2022 End: 01-22-[address] Luis Alberto Moran Work Phone: [facility] Start: 01-15-2022 End: 01-15-[address] Leia Matute Work Phone: [facility] Work Phone: Start: 01-15-2022 End: 01-15-[address] Leia Matute Work Phone: [facility] Start: 01-09-2022 Telephone encounter Mayur Cao MD Work Phone: Neurology Comment on above: Appointment Start: 12-25-2021 End: 12-25-[address] Leia Matute Work Phone: [facility] Start: 12-24-2021 End: 12-24-[address] Luis Alberto Moran Work Phone: [facility] Work Phone: Start: 12-24-2021 End: 12-24-[address] Luis Alberto Moran Work Phone: [facility] Start: 12-24-[address] Ileana Matute Work Phone: [facility] Start: 12-12-2021 Non-patient / Non-visit Dr. Heena Matute Work Phone: [facility] Start: 12-11-2021 Non-patient / Non-visit Dr. Heena Matute Work Phone: [facility] Start: 12-10-2021 Non-patient / Non-visit Dr. Heena Matute Work Phone: [facility] Start: 12-10-2021 End: 12-12-2021 Evaluation and management of inpatient [facility] Start: 11-28-2021 End: 11-28-[address] Leia Matute Work Phone: [facility] Start: 11-28-2021 Non-patient / Non-visit Dr. Heena Matute Work Phone: [facility] Start: 11-08-2021 End: 11-08-[address] Leia Matute Work Phone: [facility] Start: 11-01-2021 End: 11-01-[address] Leia Matute Work Phone: [facility] Start: 10-28-2021 End: 10-28-[address] Leia Matute Work Phone: [facility] Start: 10-25-2021 End: 10-25-[address] Leia Matute Work Phone: [facility] Start: 10-18-2021 End: 10-18-[address] Leia Matute Work Phone: [facility] Start: 10-16-2021 End: 10-16-[address] Leia Matute Work Phone: [facility] Start: 10-09-2021 End: 10-09-[address] Leia Matute Work Phone: [facility] Start: 10-04-2021 End: 10-04-[address] Leia Matute Work Phone: [facility] Start: 09-09-2021 End: 09-09-[address] Leia Matute Work Phone: [facility] Start: 09-09-2021 End: 09-09-[address] Leia Matute Work Phone: [facility] Start: 08-23-2021 End: 08-23-[address] Leia Matute Work Phone: [facility] Start: 08-23-2021 End: 08-23-[address] Leia Matute Work Phone: [facility] Start: 08-12-2021 End: 08-12-[address] Leia Ambriz Phone: [facility] Start: 07-17-2021 End: 07-17-[address] Leia Matute Work Phone: [facility] Start: 07-15-2021 End: 07-15-[address] Leia Ambriz Phone: [facility] Start: 07-02-2021 Non-patient / Non-visit Dr. Heena Matute Work Phone: [facility] Start: 07-02-2021 End: 07-02-2021 Admission to same day surgery center Dr. Leia Matute Work Phone: [facility] Start: 05-08-2021 End: 05-08-[address] Leia Ambriz Phone: [facility] Start: 04-24-2021 End: 04-24-[address] Leia Matute Work Phone: [facility] Start: 04-08-[address] Leia Matute Work Phone: [facility] Start: 02-15-[address] Jass Matute Work Phone: [facility] Start: 2017 End: 2017 Patient encounter procedure Jordan Sidhu MD Work Phone: [facility] Work Phone: Procedures Date Procedure Procedure Detail Performing Clinician Start: 12-16-2024 CT cervical spine without contrast Krystin العراقي MAID HOUSEKEEPER-C Work Phone: Start: 11-18-2024 X-ray of cervical spine Krystin العراقي NP-C Work Phone: Start: 08-24-2024 Procedure Krystin العراقي [employer] HOUSEKEEPER-C Work Phone: Comment on above: Test Ordered: [id number] L90-Uewxih+S K3Rrlxljigvivi Screen, Urine Negative ng/mL UI Reference Range: Xsadmd=523Eemlssudfru test includes Amphetamine and Methamphetamine.Barbiturates Negative ng/mL UI Reference Range: Jiswfk=012Ksbaelljjkxvvek Negative ng/mL UI Reference Range: Undgwf=306Qprvpkt (Metab.), Urine Negative ng/mL UI Reference Range: Dtykmq=774Rhmzbou Note: ng/mL UI See Final Results Reference Range: Deregp=511Hbwynb test includes Codeine, Morphine, Hydromorphone, Hydrocodone.Opiates Positive [A ] UI Reference Range: Agtzdt=117Fjqjaz test includes Codeine, Morphine, Hydromorphone, Hydrocodone.Codeine Negative UI Reference Range: Xrtvtk=936Tufuzmmy Negative UI Reference Range: Cmrocr=676Zohdrbtqpmlvt Positive [A ] UI Reference Range: .Hydromorphone Conf, MS, UR 699 ng/mL UI Reference Range: Fxdgky=815Qkybxpgfjsc Positive [A ] UI Reference Range: .Hydrocodone Conf, MS, UR 345 ng/mL UI Reference Range: Nckhmu=8769-Gubadqnikpyzfy, Urine Negative ng/mL UI Reference Range: Cutoff=10Oxycodone/Oxymorphone, Urine Negative ng/mL UI Reference Range: Cjvgia=523Wpju includes Oxycodone and OxymorphonePCP, Urine Negative ng/mL UI Reference Range: Cutoff=25Methadone Screen, Urine Negative ng/mL UI Reference Range: Tlwxmq=542Xlwbftisuxuk, Urine Negative ng/mL UI Reference Range: Vufzrc=783Eevihrwa, Urine Negative ng/mL UI Reference Range: Cutoff=2.0Test includes Fentanyl and NorfentanylThis test was developed and its performance characteristicsdetermined by [employer]. It has not been cleared orapproved by the Food and Drug Administration.Tramadol Negative ng/mL UI Reference Range: Jdjemr=741Etmozrjyijcci, Urine Negative ng/mL UI Reference Range: Cutoff=10Creatinine, Urine 66.0 mg/dL UI Reference Range: 20.0-300.0pH, Urine 7.4 UI Reference Range: 4.5-8.9Performed at: [facility] [id number] [place], [place] [id number] Director: Cortez Rush PhD, Phone: [phone] at: [facility] [id number] Director: Sidney Melo PhD, Phone: [phone] Start: 08-24-2024 Methadone measurement, urine Krystin kathleen MAID HOUSEKEEPER-C Work Phone: Start: 06-24-2024 Plain X-ray of shoulder Krystin العراقي MAID HOUSEKEEPER-C Work Phone: Start: 06-24-2024 Acid fast bacilli culture Krystin العراقي MAID HOUSEKEEPER-C Work Phone: Start: 06-24-2024 Anaerobic microbial culture Krystin Haas am [employer] HOUSEKEEPER-C Work Phone: Start: 06-24-2024 Fungus stain method Krystin العراقي [employer] HOUSEKEEPER-C Work Phone: Start: 06-24-2024 Gram stain microscopy Krystin العراقي MAID HOUSEKEEPER-C Work Phone: Start: 06-24-2024 Microbial culture, routine Krystin rbower [employer] HOUSEKEEPER-C Work Phone: Start: 06-24-2024 Mycology culture Krystin العراقي MAID HOUSEKEEPER-C Work Phone: Start: 06-24-2024 Revision of shoulder arthroplasty Kacie العراقي MAID HOUSEKEEPER-C Work Phone: Start: 06-03-2024 Methicillin resistant Staphylococcus aureus screening test Krystin العراقي MAID HOUSEKEEPER-C Work Phone: Start: 05-26-2024 Plain X-ray of shoulder Krystin العراقي MAID HOUSEKEEPER-C Work Phone: Start: 04-15-2024 Screening mammography Krystin العراقي MAID HOUSEKEEPER-C Work Phone: Start: 04-12-2024 Plain X-ray of shoulder Krystin العراقي MAID HOUSEKEEPER-C Work Phone: Start: 12-01-2023 VITAMIN D 25 HYDROXY Krystin العراقي HEAD STOCK OPERATOR Work Phone: Start: 07-24-2023 Plain X-ray of shoulder DO Mike Barnette r Work Phone: Start: 07-22-2023 Fluoroscopic guidance DO Mike Hopper Work Phone: Start: 07-22-2023 Plain X-ray of shoulder DO Mike Barnette r Work Phone: Start: 07-22-2023 Reverse prosthetic total arthroplasty of left shoulder DO Mike Barnetter Work Phone: Start: 07-15-2023 Nasal Screen MRSA/MSSA DO Mike Barnetter Work Phone: Start: 06-03-2023 MRI of joint of lower extremity DO [place] Work Phone: Start: 06-03-2023 CT of upper limb without contrast DO Giancarlo stifarhat Hopper Work Phone: Start: 04-14-2023 Screening mammography Start: 10-20-2022 Radex shoulder complete minimum 2 views Chris Bull MD Work Phone: Start: 08-28-2022 Radiography of esophagus Start: 07-31-2022 Radex spine lumbosacral 2/3 views Leslie Monet MD Work Phone: Start: 05-31-2022 Mri spinal canal thoracic w/o & w/contr matrl Adrián Pulido PA-C Work Phone: Start: 04-30-2022 Plain X-ray of shoulder DO Mike Ferguson r Work Phone: Start: 04-17-2022 Radex spine cervical 4 or 5 views Adrián Pulido PA-C Work Phone: Start: 02-28-2022 Nerve conduction studies 5-6 studies Mayur Cao MD Work Phone: Start: 01-22-2022 Plain x-ray of pelvis and lower extremity Dr. Luis Alberto Moran Work Phone: Start: 12-10-2021 Plain X-ray of hip Dr. Leia Matute Work Phone: Start: 12-10-2021 Total Hip Replacement Robotic Arm Assist (Right) Dr. Leia Matute Work Phone: Start: 11-28-2021 MRI of lower extremity Dr. Leia Matute Work Phone: Start: 11-28-[address] DEJAN FERRARA MD Comment on above: nonspecific T wave abnormality Start: 10-28-2021 MRI of lumbar spine with contrast Dr. Heena Matute Work Phone: Start: 10-04-2021 Plain x-ray of pelvis and lower extremity Dr. Leia Matute Work Phone: Start: 10-04-2021 Radiologic examination of knee Dr. Ileana Matute Work Phone: Start: 10-04-2021 X-ray of lumbar spine, two or three views Dr. Leia Matute Work Phone: Start: 09-09-2021 Plain X-ray of shoulder Dr. Leia Matute Work Phone: Start: 09-09-2021 X-ray of cervical spine Dr. Leia Matute Work Phone: Start: 09-09-2021 X-ray of rib Dr. Leia Matute Work Phone: Start: 08-23-2021 Plain chest X-ray Dr. Leia Matute Work Phone: Start: 07-01-2021 SARS-CoV-2 Antigen (Rapid) Dr. Leia Matute Work Phone: Start: 04-08-2021 MRI of lower extremity Dr. Leia Matute Work Phone: Start: 2017 End: 2017 Blood [...] End: 2017 Radex spine lumbosacral 2/3 views Freddy Sidhu MD Work Phone: Start: 2017 End: 2017 Tobacco non-user Jordan Sidhu MD Work Phone: Start: 08-22-2014 Lipid 1996 panel - Serum or Plasma Nurse Work Phone: Start: 06-27-2014 Mammography Mayur Cao MD Work Phone: Start: 05-23-2013 Colonoscopy Mayur Cao MD Work Phone: Colonoscopy DR DEJAN Simmons MD H/O: artificial joint Presence o f right artificial shoulder joint Krystin Haasam MAID HOUSEKEEPER-C Work Phone: H/O: artificial joint Presence o f right artificial shoulder joint Dr. Dejan Ferrara MD Nasal Screen MRSA/MSSA Dr. Jass Matute Work Phone: Spinal arthrodesis DR DEJAN FERRARA MD Comment on above: CERVICAL AND LUMBAR Total replacement of hip DR DEJAN FERRARA MD Comment on above: BILATERAL Total shoulder replacement Joe FERRARA MD Comment on above: LEFT Plan of Treatment Date Care Activity Detail Author Start: 09-04-2029 Urine microalbumin profile DTaP,Tdap,Td Vaccine (2 - Td or Tdap) [facility] Start: 07-05-2027 Diabetes Screening Diabetes Screening [facility] Start: 09-20-2026 Diabetes Screening Diabetes Screening [facility] Start: 02-25-2026 Diabetes Screening Diabetes Screening [facility] Start: 07-29-2025 DIABETES SCREEN DIABETES SCREEN [facility] Start: 07-29-2025 Diabetes Screening Diabetes Screening [facility] Start: 11-18-2024 X-ray of cervical spine Cerv Spine 4 or 5 Views [facility] Start: 11-18-2024 XR Cervical spine 4 or 5 Views [facility] Start: 09-01-2024 End: 12-01-2024 25-hydroxyvitamin D3 [Mass/volume] in Serum or Plasma VITAMIN D 25 HYDROXY Lab Routine Age-related osteoporosis with current pathological fracture with routine healing, subsequent encounter Hyperparathyroidism (HCC) Expected: 09/01/2024 (Approximate), Expires: 12/01/2024 [facility] Work Phone: Comment on above: Expected: 09/01/2024 (Approximate), Expi res: 12/01/2024 Start: 09-01-2024 End: 12-01-2024 Albumin [Mass/volume] in Serum or Plasma ALBUMIN Lab Routine Age-related osteoporosis with current pathological fracture with routine healing, subsequent encounter Hyperparathyroidism (HCC) Expected: 09/01/2024 (Approximate), Expires: 12/01/2024 [facility] Comment on above: Expected: 09/01/2024 (Approximate), Expi res: 12/01/2024 Start: 09-01-2024 End: 11-25-2024 BD DXA TRABECULAR BONE SCORE (TBS) BD DXA TRABECULAR BONE SCORE (TBS) Radiology Routine Age-related osteoporosis with current pathological fracture with routine healing, subsequent encounter Hyperparathyroidism (HCC) Expected: 09/01/2024 (Approximate), Expires: 11/25/2024 [facility] Comment on above: Expected: 09/01/2024 (Approximate), Expi res: 11/25/2024 Start: 09-01-2024 End: 12-01-2024 Calcium [Mass/volume] in Serum or Plasma CALCIUM, TOTAL Lab Routine Age-related osteoporosis with current pathological fracture with routine healing, subsequent encounter Hyperparathyroidism (HCC) Expected: 09/01/2024 (Approximate), Expires: 12/01/2024 [facility] Comment on above: Expected: 09/01/2024 (Approximate), Expi res: 12/01/2024 Start: 09-01-2024 End: 12-01-2024 Calcium.ionized [Moles/volume] in Blood CALCIUM, IONIZED Lab Routine Age-related osteoporosis with current pathological fracture with routine healing, subsequent encounter Hyperparathyroidism (HCC) Expected: 09/01/2024 (Approximate), Expires: 12/01/2024 [facility] Comment on above: Expected: 09/01/2024 (Approximate), Expi res: 12/01/2024 Start: 09-01-2024 End: 12-01-2024 Creatinine and Glomerular filtration rate.predicted panel - Serum, Plasma or Blood GFR ESTIMATED Lab Routine Age-related osteoporosis with current pathological fracture with routine healing, subsequent encounter Hyperparathyroidism (HCC) Expected: 09/01/2024 (Approximate), Expires: 12/01/2024 [facility] Comment on above: Expected: 09/01/2024 (Approximate), Expi res: 12/01/2024 Start: 09-01-2024 End: 12-01-2024 CREATININE BLD CREATININE BLD Lab Routine Age-related osteoporosis with current pathological fracture with routine healing, subsequent encounter Hyperparathyroidism (HCC) Expected: 09/01/2024 (Approximate), Expires: 12/01/2024 [facility] Comment on above: Expected: 09/01/2024 (Approximate), Expi res: 12/01/2024 Start: 09-01-2024 End: 11-25-2024 DXA Skeletal system.axial Views for bone density DXA-AXIAL SKELETON Radiology Routine Age-related osteoporosis with current pathological fracture with routine healing, subsequent encounter Hyperparathyroidism (HCC) Expected: 09/01/2024 (Approximate), Expires: 11/25/2024 [facility] Comment on above: Expected: 09/01/2024 (Approximate), Expi res: 11/25/2024 Start: 09-01-2024 End: 12-01-2024 Parathyrin.intact [Mass/volume] in Serum or Plasma PTH INTACT Lab Routine Age-related osteoporosis with current pathological fracture with routine healing, subsequent encounter Hyperparathyroidism (HCC) Expected: 09/01/2024 (Approximate), Expires: 12/01/2024 [facility] Comment on above: Expected: 09/01/2024 (Approximate), Expi res: 12/01/2024 Start: 08-24-2024 Procedure [facility] Start: 06-28-2024 Referral to service [facility] Start: 06-28-2024 Patient discharge [facility] Start: 06-24-2024 Following clinical pathway protocol [facility] Start: 06-24-2024 Recommendation to continue with treatment [facility] Start: 06-24-2024 Ambulation therapy management [facility] Start: 06-24-2024 Application of device [facility] Start: 06-24-2024 Assessment of risk of venous thromboembolism [facility] Start: 06-24-2024 Catheterization of vein [facility] Start: 06-24-2024 End: 06-24-2024 Consultation [facility] Start: 06-24-2024 Following clinical pathway protocol [facility] Start: 06-24-2024 Introduction of urinary catheter [facility] Start: 06-24-2024 Measuring intake and output [facility] Start: 06-24-2024 Neurovascular assessment [facility] Start: 06-24-2024 Patient education [facility] Start: 06-24-2024 Procedure discontinued [facility] Start: 06-24-2024 Provision of activity privileges [facility] Start: 06-24-2024 Referral to occupational therapist [facility] Start: 06-24-2024 Vital signs measurements [facility] Start: 06-24-2024 Wound care [facility] Start: 06-24-2024 [facility] Start: 06-24-2024 Admission procedure [facility] Start: 06-24-2024 Acid Fast Bacilli Culture Acid Fast Bacilli Culture [facility] Start: 06-24-2024 Acid Fast Bacilli Smear Acid Fast Bacilli Smear [facility] Start: 06-24-2024 Fungal Culture Fungal Culture [facility] Start: 06-24-2024 Fungal Smear Fungal Smear [facility] Start: 06-24-2024 Acid fast bacilli culture [facility] Start: 06-24-2024 Mycology culture [facility] Start: 06-24-2024 Medication education [facility] Start: 06-16-2024 End: 06-16-2024 Patient encounter procedure 06/16/2024 10:00 AM EST Office Visit Endocrinology [address] [id number] [facility] Comment on above: [facility] Start: 05-27-2024 Acid fast bacilli culture [facility] Start: 05-27-2024 Acid Fast Bacilli Culture Acid Fast Bacilli Culture [facility] Start: 05-27-2024 Acid Fast Bacilli Smear Acid Fast Bacilli Smear [facility] Start: 05-27-2024 Fungal Culture Fungal Culture [facility] Start: 05-04-2024 Advance Directive Discussion Advance Directive Discussion [facility] Start: 04-12-2024 Patient referral [facility] Work Phone: Start: 04-01-2024 End: 04-01-2024 ambulatory 04/01/2024 10:10 AM EST Visit (SP) Office Hematology/Oncology [address] [place] [address] [place] [address] [place], [place] [id number] 6 Mo OV /monoclonal gammopathy labs [facility] Comment on above: 6 Mo OV /monoclonal gammopathy labs Start: 03-13-2024 Influenza vaccination Lung Cancer Screening [facility] Start: 03-13-2024 Screening for malignant neoplasm of lung Lung Cancer Screening [facility] Start: 01-03-2024 Influenza vaccination [facility] Start: 12-15-2023 End: 12-15-2023 Patient encounter procedure 12/15/2023 10:00 AM EDT Office Visit Endocrinology [address] [address] [facility] Comment on above: [facility] Start: 11-02-2023 End: 11-02-2023 Patient encounter procedure 11/02/2023 10:00 AM EDT Office Visit Endocrinology [address] [address] [facility] Comment on above: [facility] Start: 10-27-2023 End: 10-27-2023 Patient encounter procedure 10/27/2023 10:40 AM EDT Office Visit Endocrinology [address] [address] Leslie Monet MD [address] [place] [address] Follow up-new slot ok [facility] Comment on above: Follow up-new slot ok per [facility] Start: 10-01-2023 End: 10-01-2023 Patient encounter procedure 10/01/2023 10:00 AM EDT Office Visit Endocrinology [address] [address] [facility] Comment on above: [facility] Start: 09-30-2023 End: 09-30-2023 Patient encounter procedure 09/30/2023 10:00 AM EDT Office Visit Endocrinology [address] [address] [facility] Comment on above: [facility] Start: 09-29-2023 End: 09-28-2024 Cobalamin (Vitamin B12) [Mass/volume] in Serum or Plasma VITAMIN B12 Lab Routine Anemia, unspecified type Expected: 09/29/2023, Expires: 09/28/2024 [facility] Comment on above: Expected: 09/29/2023, Expires: Start: 09-29-2023 End: 09-28-2024 Ferritin [Mass/volume] in Serum or Plasma FERRITIN Lab Routine Anemia, unspecified type Expected: 09/29/2023, Expires: 09/28/2024 [facility] Comment on above: Expected: 09/29/2023, Expires: Start: 09-29-2023 End: 12-29-2023 Folate [Mass/volume] in Serum or Plasma FOLATE, SERUM Lab Routine Anemia, unspecified type Expected: 09/29/2023, Expires: 12/29/2023 [facility] Comment on above: Expected: 09/29/2023, Expires: Start: 09-29-2023 End: 09-28-2024 Iron and Iron binding capacity panel - Serum or Plasma IRON AND TIBC Lab Routine Anemia, unspecified type Expected: 09/29/2023 (Approximate), Expires: 09/28/2024 [facility] Work Phone: Comment on above: Expected: 09/29/2023 (Approximate), Expi res: 09/28/2024 Start: 09-29-2023 End: 09-29-2023 ambulatory 09/29/2023 10:20 AM EDT Visit (SP) Office Hematology/Oncology [address] [place] [address] [place] [address] [place] [address] 6OV OV/LABS 09/20* Hematology/Oncology Comment on above: 6OV OV/LABS 09/20* Start: 09-21-2023 End: 09-21-2023 ambulatory 09/21/2023 11:15 AM EDT Results Only [facility] [address] [place] [address] LABS [facility] Comment on above: LABS Start: 09-21-2023 End: 09-21-2023 Patient encounter procedure 09/21/2023 10:40 AM EDT Office Visit [facility] [address] [address] [place] [address] [place] [address] Return in about 6 months (around 09/21/2023). [facility] Comment on above: Return in about 6 months (around 09/21/19 24). Start: 08-05-2023 Procedure [facility] Start: 08-04-2023 Patient referral [facility] Work Phone: Start: 07-22-2023 Anes arthroscopic total shoulder replacement ANESTH SHOULDER REPLACEMENT [facility] Start: 07-22-2023 Arthroplasty glenohumeral joint total shoulder RECONSTRUCT SHOULDER JOINT [facility] Start: 07-22-2023 Injection aa&/strd brachial plexus NJX AA&/STRD BRCH PLXS IMG [facility] Start: 07-22-2023 Notification of physician [facility] Start: 07-22-2023 Patient discharge [facility] Start: 07-22-2023 Application of device [facility] Start: 07-22-2023 Assessment of risk of venous thromboembolism [facility] Start: 07-22-2023 Catheterization of vein [facility] Start: 07-22-2023 Deep breathing and coughing exercises [facility] Start: 07-22-2023 Following clinical pathway protocol [facility] Start: 07-22-2023 Incentive spirometry [facility] Start: 07-22-2023 Introduction of urinary catheter [facility] Start: 07-22-2023 Patient education [facility] Start: 07-22-2023 Taking patient vital signs [facility] Start: 07-22-2023 Vital signs measurements [facility] Start: 07-22-2023 End: 07-22-2023 [facility] Start: 07-22-2023 Medication education [facility] Start: 05-23-2023 Colonoscopy COLONOSCOPY [facility] Start: 05-23-2023 COLORECTAL CANCER SCREENING COLORECTAL CANCER SCREENING [facility] Start: 05-23-2023 Screening for malignant neoplasm of colon [facility] Start: 05-04-2023 Advance Directive Discussion Advance Directive Discussion [facility] Start: 05-04-2023 Behavioral Health Screening Behavioral Health Screening [facility] Start: 05-04-2023 Depression Assessment Depression Assessment [facility] Start: 04-15-2023 Procedure [facility] Start: 03-13-2023 End: 05-13-2023 25-hydroxyvitamin D3 [Mass/volume] in Serum or Plasma VITAMIN D 25 HYDROXY Lab Routine Age-related osteoporosis with current pathological fracture with routine healing, subsequent encounter Other specified disorders of bone density and structure, unspecified site Expected: 03/13/2023 (Approximate), Expires: 05/13/2023 [facility] Work Phone: Comment on above: Expected: 03/13/2023 (Approximate), Expi res: 05/13/2023 Start: 03-13-2023 End: 05-13-2023 Albumin [Mass/volume] in Serum or Plasma ALBUMIN BLD Lab Routine Age-related osteoporosis with current pathological fracture with routine healing, subsequent encounter Expected: 03/13/2023 (Approximate), Expires: 05/13/2023 [facility] Work Phone: Comment on above: Expected: 03/13/2023 (Approximate), Expi res: 05/13/2023 Start: 03-13-2023 End: 05-13-2023 Calcium [Mass/volume] in Serum or Plasma CALCIUM TOTAL BLD Lab Routine Age-related osteoporosis with current pathological fracture with routine healing, subsequent encounter Expected: 03/13/2023 (Approximate), Expires: 05/13/2023 [facility] Work Phone: Comment on above: Expected: 03/13/2023 (Approximate), Expi res: 05/13/2023 Start: 03-13-2023 End: 05-13-2023 Calcium.ionized [Moles/volume] in Blood CALCIUM IONIZED BLOOD Lab Routine Age-related osteoporosis with current pathological fracture with routine healing, subsequent encounter Expected: 03/13/2023 (Approximate), Expires: 05/13/2023 [facility] Work Phone: Comment on above: Expected: 03/13/2023 (Approximate), Expi res: 05/13/2023 Start: 03-13-2023 End: 05-13-2023 Creatinine and Glomerular filtration rate.predicted panel - Serum, Plasma or Blood GFR ESTIMATED Lab Routine Age-related osteoporosis with current pathological fracture with routine healing, subsequent encounter Expected: 03/13/2023 (Approximate), Expires: 05/13/2023 [facility] Work Phone: Comment on above: Expected: 03/13/2023 (Approximate), Expi res: 05/13/2023 Start: 03-13-2023 End: 05-13-2023 CREATININE BLD CREATININE BLD Lab Routine Age-related osteoporosis with current pathological fracture with routine healing, subsequent encounter Expected: 03/13/2023 (Approximate), Expires: 05/13/2023 [facility] Work Phone: Comment on above: Expected: 03/13/2023 (Approximate), Expi res: 05/13/2023 Start: 03-13-2023 End: 05-13-2023 Parathyrin.intact [Mass/volume] in Serum or Plasma PTH INTACT BLD Lab Routine Age-related osteoporosis with current pathological fracture with routine healing, subsequent encounter Expected: 03/13/2023 (Approximate), Expires: 05/13/2023 [facility] Work Phone: Comment on above: Expected: 03/13/2023 (Approximate), Expi res: 05/13/2023 Start: 01-02-2023 Influenza vaccination [facility] Start: 10-21-2022 Dual energy X-ray absorptiometry Dexa Bone Density Study [facility] Start: 10-21-2022 DXA Bone [Mass/Area] Bone density [facility] Start: 10-17-2022 End: 10-10-2023 DXA-AXIAL SKELETON DXA-AXIAL SKELETON Radiology Routine Age-related osteoporosis with current pathological fracture with routine healing, subsequent encounter Other specified disorders of bone density and structure, unspecified site Localized osteoporosis ([place]) Expected: 10/17/2022 (Approximate), Expires: 10/10/2023 [facility] Work Phone: Comment on above: Expected: 10/17/2022 (Approximate), Expi res: 10/10/2023 Start: 10-17-2022 End: 10-10-2023 DXA-FOREARM SKELETON DXA-FOREARM SKELETON Radiology Routine Age-related osteoporosis with current pathological fracture with routine healing, subsequent encounter Other specified disorders of bone density and structure, unspecified site Expected: 10/17/2022 (Approximate), Expires: 10/10/2023 [facility] Work Phone: Comment on above: Expected: 10/17/2022 (Approximate), Expi res: 10/10/2023 Start: 08-26-2022 End: 10-26-2022 CBC W Auto Differential panel - Blood CBC + DIFF Lab Routine Abnormal SPEP Expected: 08/26/2022, Expires: 10/26/2022 [facility] Work Phone: Comment on above: Expected: 08/26/2022, Expires: 3 Start: 08-26-2022 End: 10-26-2022 KAPPA/SAM,FREE,SER KAPPA/SAM,FREE,SER Lab Routine 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 Expected: 08/26/2022, Expires: 10/26/2022 [facility] Work Phone: Comment on above: Expected: 08/26/2022, Expires: 3 Start: 08-26-2022 End: 10-26-2022 MONOCLONAL PROTEIN, SERUM (BLOOD) MONOCLONAL PROTEIN, SERUM (BLOOD) Lab Routine 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 Expected: 08/26/2022, Expires: 10/26/2022 [facility] Work Phone: Comment on above: Expected: 08/26/2022, Expires: 3 Start: 08-06-2022 [facility] Start: 07-23-2022 End: 09-22-2022 25-hydroxyvitamin D3 [Mass/volume] in Serum or Plasma VITAMIN D 25 HYDROXY Lab Routine Age-related osteoporosis with current pathological fracture with routine healing, subsequent encounter Disorder of bone density and structure, unspecified Abnormal findings on diagnostic imaging of other specified body structures Vitamin D deficiency Expected: 07/23/2022, Expires: 09/22/2022 [facility] Work Phone: Comment on above: Expected: 07/23/2022, Expires: Start: 07-23-2022 End: 09-22-2022 ALK PHOS BONE SPEC ALK PHOS BONE SPEC Lab Routine Age-related osteoporosis with current pathological fracture with routine healing, subsequent encounter Expected: 07/23/2022, Expires: 09/22/2022 [facility] Work Phone: Comment on above: Expected: 07/23/2022, Expires: Start: 07-23-2022 End: 09-22-2022 CALCIUM 24 HR URINE CALCIUM 24 HR URINE Lab Routine Age-related osteoporosis with current pathological fracture with routine healing, subsequent encounter Expected: 07/23/2022, Expires: 09/22/2022 [facility] Work Phone: Comment on above: Expected: 07/23/2022, Expires: 3 Start: 07-23-2022 End: 09-22-2022 Calcium.ionized [Moles/volume] in Blood CALCIUM IONIZED BLOOD Lab Routine Age-related osteoporosis with current pathological fracture with routine healing, subsequent encounter Expected: 07/23/2022, Expires: 09/22/2022 [facility] Work Phone: Comment on above: Expected: 07/23/2022, Expires: 3 Start: 07-23-2022 End: 09-22-2022 CELIAC SCREEN WITH REFLEX CELIAC SCREEN WITH REFLEX Lab Routine Age-related osteoporosis with current pathological fracture with routine healing, subsequent encounter Expected: 07/23/2022, Expires: 09/22/2022 [facility] Work Phone: Comment on above: Expected: 07/23/2022, Expires: 3 Start: 07-23-2022 End: 09-22-2022 Collagen crosslinked C-telopeptide [Mass/volume] in Serum or Plasma C TELOPEPTIDE, BETA Lab Routine Age-related osteoporosis with current pathological fracture with routine healing, subsequent encounter Disorder of bone density and structure, unspecified Expected: 07/23/2022, Expires: 09/22/2022 [facility] Work Phone: Comment on above: Expected: 07/23/2022, Expires: 3 Start: 07-23-2022 End: 09-22-2022 Comprehensive metabolic 2000 panel - Serum or Plasma COMP METABOLIC PANEL Lab Routine Age-related osteoporosis with current pathological fracture with routine healing, subsequent encounter Expected: 07/23/2022, Expires: 09/22/2022 [facility] Work Phone: Comment on above: Expected: 07/23/2022, Expires: Start: 07-23-2022 End: 09-22-2022 CREATININE 24 HR UR CREATININE 24 HR UR Lab Routine Age-related osteoporosis with current pathological fracture with routine healing, subsequent encounter Expected: 07/23/2022, Expires: 09/22/2022 [facility] Work Phone: Comment on above: Expected: 07/23/2022, Expires: 3 Start: 07-23-2022 End: 09-22-2022 Parathyrin.intact [Mass/volume] in Serum or Plasma PTH INTACT BLD Lab Routine Age-related osteoporosis with current pathological fracture with routine healing, subsequent encounter Expected: 07/23/2022, Expires: 09/22/2022 [facility] Work Phone: Comment on above: Expected: 07/23/2022, Expires: 3 Start: 07-23-2022 End: 09-22-2022 Phosphate [Mass/volume] in Serum or Plasma PHOSPHORUS INORGANIC Lab Routine Age-related osteoporosis with current pathological fracture with routine healing, subsequent encounter Expected: 07/23/2022, Expires: 09/22/2022 [facility] Work Phone: Comment on above: Expected: 07/23/2022, Expires: 3 Start: 07-23-2022 End: 09-22-2022 PROTEIN ELECTROPHORESIS SERUM W/INTERP PROTEIN ELECTROPHORESIS SERUM W/INTERP Lab Routine Age-related osteoporosis with current pathological fracture with routine healing, subsequent encounter Expected: 07/23/2022, Expires: 09/22/2022 [facility] Work Phone: Comment on above: Expected: 07/23/2022, Expires: Start: 07-23-2022 End: 09-22-2022 Thyrotropin [Units/volume] in Serum or Plasma TSH BLD Lab Routine Age-related osteoporosis with current pathological fracture with routine healing, subsequent encounter Disorder of bone density and structure, unspecified Abnormal findings on diagnostic imaging of other specified body structures Expected: 07/23/2022, Expires: 09/22/2022 [facility] Work Phone: Comment on above: Expected: 07/23/2022, Expires: Start: 07-23-2022 End: 09-22-2022 Thyroxine (T4) free [Mass/volume] in Serum or Plasma T4 FREE/FREE THYROX Lab Routine Age-related osteoporosis with current pathological fracture with routine healing, subsequent encounter Disorder of bone density and structure, unspecified Abnormal findings on diagnostic imaging of other specified body structures Expected: 07/23/2022, Expires: 09/22/2022 [facility] Work Phone: Comment on above: Expected: 07/23/2022, Expires: Start: 05-04-2022 ADVANCE DIRECTIVE DISCUSSION ADVANCE DIRECTIVE DISCUSSION [facility] Start: 05-04-2022 DEPRESSION ASSESSMENT DEPRESSION ASSESSMENT [facility] Start: 03-05-2022 Procedure [facility] Work Phone: Start: 01-02-2022 Influenza vaccination INFLUENZA (#1) [facility] Start: 12-12-2021 Patient discharge [facility] Work Phone: Start: 12-11-2021 [facility] Work Phone: Start: 12-10-2021 Following clinical pathway protocol [facility] Work Phone: Start: 12-10-2021 Provision of overbed trapeze [facility] Work Phone: Start: 12-10-2021 Ambulation therapy management [facility] Work Phone: Start: 12-10-2021 Application of device [facility] Work Phone: Start: 12-10-2021 Assessment of risk of venous thromboembolism [facility] Work Phone: Start: 12-10-2021 Catheterization of vein [facility] Work Phone: Start: 12-10-2021 Exercises [facility] Work Phone: Start: 12-10-2021 Following clinical pathway protocol [facility] Work Phone: Start: 12-10-2021 Incentive spirometry [facility] Work Phone: Start: 12-10-2021 Introduction of urinary catheter [facility] Work Phone: Start: 12-10-2021 Measuring intake and output [facility] Work Phone: Start: 12-10-2021 Neurovascular assessment [facility] Work Phone: Start: 12-10-2021 Patient education [facility] Work Phone: Start: 12-10-2021 Procedure discontinued [facility] Work Phone: Start: 12-10-2021 Provision of activity privileges [facility] Work Phone: Start: 12-10-2021 Referral to occupational therapist [facility] Work Phone: Start: 12-10-2021 Referral to service [facility] Work Phone: Start: 12-10-2021 Vital signs measurements [facility] Work Phone: Start: 12-10-2021 Wound care [facility] Work Phone: Start: 12-10-2021 End: 12-10-2021 [facility] Work Phone: Start: 12-10-2021 Admission procedure [facility] Work Phone: Start: 07-02-2021 Anes nerve muscle tdn fascia&bursa forearm wrist ANESTH LOWER ARM SURGERY [facility] Work Phone: Start: 07-02-2021 Neuroplasty &/transpos median nrv carpal tunne CARPAL TUNNEL SURGERY [facility] Work Phone: Start: 05-04-2021 ADVANCE DIRECTIVE DISCUSSION ADVANCE DIRECTIVE DISCUSSION [facility] Start: 05-04-2021 DEPRESSION ASSESSMENT DEPRESSION ASSESSMENT [facility] Start: 11-14-2019 Shingrix Vaccine (2 of 2) Shingrix Vaccine (2 of 2) [facility] Start: 08-23-2019 Lipid 1996 panel - Serum or Plasma Lipid Screening [facility] Start: 08-23-2019 Lipid panel Lipid Screening [facility] Start: 08-23-2019 LIPID SCREEN LIPID SCREEN [facility] Start: 12-16-2017 DIABETES SCREEN DIABETES SCREEN [facility] Start: 2017 End: [address] [facility] Work Phone: Start: 04-14-2017 End: 04-14-2017 Appointment Appointment [facility] Work Phone: Start: 01-13-2017 End: 01-13-2017 Appointment Appointment [facility] Work Phone: Start: 01-13-2017 End: 01-13-2017 X-ray exam of neck spine X-Ray, Spine, Cervical 2-3 views [facility] Work Phone: Start: 12-23-2016 End: 12-23-2016 Appointment Appointment [facility] Work Phone: Start: 11-30-2016 Screening for osteoporosis Bone Density Screening [facility] Start: 11-11-2016 End: 11-11-2016 Appointment Appointment [facility] Work Phone: Start: 11-11-2016 End: 11-11-2016 X-ray exam of neck spine X-Ray, Spine, Cervical 2-3 views [facility] Work Phone: Start: 07-07-2016 End: 07-07-2016 X-ray exam of neck spine X-Ray, Spine, Cervical 2-3 views [facility] Work Phone: Start: 10-24-2015 PNEUMOCOCCAL: 65+ (1 - PCV) PNEUMOCOCCAL: 65+ (1 - PCV) [facility] Start: 06-27-2015 Mammography [facility] Start: 06-27-2015 Screening for malignant neoplasm of breast Mammogram Screening [facility] Start: 01-07-2014 FECAL OCCULT BLOOD FECAL OCCULT BLOOD [facility] Start: 01-07-2014 Screening for malignant neoplasm of colon Fecal Occult Blood [facility] Start: 12-30-2013 Pneumococcal Vaccine: 65+ (2 - PCV) Pneumococcal Vaccine: 65+ (2 - PCV) [facility] Start: 12-30-2013 PNEUMOCOCCAL: 65+ (2 - PCV) PNEUMOCOCCAL: 65+ (2 - PCV) [facility] Start: 12-31-2012 Urine microalbumin profile [facility] Start: 06-12-2011 Screening for malignant neoplasm of cervix Cervical Cancer Screening [facility] Start: 2010 RSV Vaccine (1 - 1-dose 60+ series) RSV Vaccine (1 - 1-dose 60+ series) [facility] Start: 2010 RSV Vaccine (1 - Risk 60-74 years 1-dose series) RSV Vaccine (1 - Risk 60-74 years 1-dose series) [facility] Start: 2000 Influenza vaccination LUNG CANCER SCREENING [facility] Start: 2000 SHINGRIX VACCINE (1 of 2) SHINGRIX VACCINE (1 of 2) [facility] Start: 10-24-1995 COLOGUARD (FIT-DNA) COLOGUARD (FIT-DNA) [facility] Start: 10-24-[address] COLONOGRAPHY [facility] Start: 10-24-1995 Screening for malignant neoplasm of colon [facility] Start: 10-24-1995 SIGMOIDOSCOPY SIGMOIDOSCOPY [facility] Start: 1969 SHINGRIX VACCINE (1 of 2) SHINGRIX VACCINE (1 of 2) [facility] Start: 1968 Anxiety Screening Anxiety Screening [facility] Start: 1968 Depression Screening Depression Screening [facility] Start: 1962 Adult depression screening assessment DEPRESSION SCREENING [facility] Start: 10-24-1955 COVID-19 VACCINE (#1) COVID-19 VACCINE (#1) [facility] Start: 04-24-1951 COVID-19 VACCINE (#1) COVID-19 VACCINE (#1) [facility] End: 03-23-2024 Basic metabolic 2000 panel - Serum or Plasma BASIC METABOLIC PNL Lab Routine 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 Every 6 months for 2 Occurrences starting 03/24/2023 until 03/23/2024 [facility] Work Phone: Comment on above: Every 6 months for 2 Occurrences startin g 03/24/2023 until 03/23/2024 End: 03-23-2024 CBC W Auto Differential panel - Blood CBC + DIFF Lab Routine 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 Every 6 months for 2 Occurrences starting 03/24/2023 until 03/23/2024 [facility] Work Phone: Comment on above: Every 6 months for 2 Occurrences startin g 03/24/2023 until 03/23/2024 End: 03-26-2024 Ct abdomen & pelvis w/contrast material CT ABD/PEL W IVCON Radiology Routine 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 1 Occurrences starting 02/25/2023 until 03/26/2024 [facility] Work Phone: Comment on above: 1 Occurrences starting 02/25/2023 until 03/26/2024 Ct abdomen & pelvis w/contrast material CT ABD/PEL W IVCON Radiology Routine 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 03/13/2023 11:46 AM EST [facility] Work Phone: End: 02-18-2024 Ct cervical spine w/o contrast material CT CERVICAL SPINE WO IVCON Radiology Routine Spinal stenosis of cervical region 1 Occurrences starting 01/19/2023 until 02/18/2024 [facility] Work Phone: Comment on above: 1 Occurrences starting 01/19/2023 until 02/18/2024 End: 03-26-2024 CT CHEST W IVCON CT CHEST W IVCON Radiology Routine 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 1 Occurrences starting 02/25/2023 until 03/26/2024 [facility] Work Phone: Comment on above: 1 Occurrences starting 02/25/2023 until 03/26/2024 CT CHEST W IVCON CT CHEST W IVCO N Radiology Routine 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 03/13/2023 11:46 AM EST [facility] Work Phone: End: 02-18-2024 Ct thoracic spine w/o contrast material CT THORACIC SPINE WO IVCON Radiology Routine Arthrodesis status 1 Occurrences starting 01/19/2023 until 02/18/2024 [facility] Work Phone: Comment on above: 1 Occurrences starting 01/19/2023 until 02/18/2024 CT Upper extremity W O contrast [facility] End: 07-23-2023 DXA-AXIAL SKELETON DXA-AXIAL SKELETON Radiology Routine Age-related osteoporosis with current pathological fracture with routine healing, subsequent encounter Age-related osteoporosis with current pathological fracture, vertebra(e), initial encounter for fracture (HCC) 1 Occurrences starting 06/23/2022 until 07/23/2023 [facility] Work Phone: Comment on above: 1 Occurrences starting 06/23/2022 until 07/23/2023 Electrocardiographic procedure [facility] Work Phone: End: 02-07-2023 EMG(NEURO/NI) EMG(NEURO/NI) EMG Routine Radiculopathy, cervical region 1 Occurrences starting 02/07/2022 until 02/07/2023 [facility] Work Phone: Comment on above: 1 Occurrences starting 02/07/2022 until 02/07/2023 Fungus identified in Unspecified specimen by Culture [facility] Fungus identified in Unspecified specimen by Culture [facility] Fungus identified in Unspecified specimen by Fungus stain [facility] End: 03-23-2024 KAPPA/SAM,FREE,SER KAPPA/SAM,FREE,SER Lab Routine 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 Every 6 months for 2 Occurrences starting 03/24/2023 until 03/23/2024 [facility] Work Phone: Comment on above: Every 6 months for 2 Occurrences startin g 03/24/2023 until 03/23/2024 MONOCLONAL PROT 24 U R W/INTERP MONOCLONAL PROT 24 UR W/INTERP Lab Routine 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 Age-related osteoporosis with current pathological fracture with routine healing, subsequent encounter Abnormal SPEP Ordered: 08/26/2022 [facility] Work Phone: Comment on above: Ordered: 08/26/2022 End: 02-25-2024 MONOCLONAL PROTEIN, SERUM (BLOOD) MONOCLONAL PROTEIN, SERUM (BLOOD) Lab Routine 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 Every 6 months for 2 Occurrences starting 02/25/2023 until 02/25/2024 [facility] Work Phone: Comment on above: Every 6 months for 2 Occurrences startin g 02/25/2023 until 02/25/2024 MONOCLONAL PROTEIN, SERUM (BLOOD) MONOCLONAL PROTEIN, SERUM (BLOOD) Lab Routine 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 02/25/2023 10:44 AM EDT [facility] Work Phone: End: 03-23-2024 MONOCLONAL PROTEIN, SERUM (BLOOD) MONOCLONAL PROTEIN, SERUM (BLOOD) Lab Routine 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 Every 6 months for 2 Occurrences starting 03/24/2023 until 03/23/2024 [facility] Work Phone: Comment on above: Every 6 months for 2 Occurrences startin g 03/24/2023 until 03/23/2024 End: 05-17-2023 Mri spinal canal cervical w/o & w/contr matrl MRI CERVICAL SPINE WO/W IVCON Radiology Routine Cervicalgia Arthrodesis status Adverse effect of treatment, initial encounter 1 Occurrences starting 04/17/2022 until 05/17/2023 [facility] Work Phone: Comment on above: 1 Occurrences starting 04/17/2022 until 05/17/2023 End: 05-17-2023 Mri spinal canal thoracic w/o & w/contr matrl MRI THORACIC SPINE WO/W IVCON Radiology Routine Arthrodesis status Adverse effect of treatment, initial encounter 1 Occurrences starting 04/17/2022 until 05/17/2023 [facility] Work Phone: Comment on above: 1 Occurrences starting 04/17/2022 until 05/17/2023 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 Work Phone: Patient referral [facility] Work Phone: Procedure [facility] Work Phone: PROT ELEC UR 24HR W/ M SPIKE (P) PROT ELEC UR 24HR W/M SPIKE (P) Lab Routine 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 Age-related osteoporosis with current pathological fracture with routine healing, subsequent encounter Abnormal SPEP Ordered: 08/26/2022 [facility] Work Phone: Comment on above: Ordered: 08/26/2022 PROT ELEC UR 24HR W/ M SPIKE AND INTERP PROT ELEC UR 24HR W/M SPIKE AND INTERP Lab Routine 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 Age-related osteoporosis with current pathological fracture with routine healing, subsequent encounter Abnormal SPEP Ordered: 08/26/2022 [facility] Work Phone: Comment on above: Ordered: 08/26/2022 Protein [Mass/time] in 24 hour Urine PROTEIN 24 HR URINE Lab Routine 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 Age-related osteoporosis with current pathological fracture with routine healing, subsequent encounter Abnormal SPEP Ordered: 08/26/2022 [facility] Work Phone: Comment on above: Ordered: 08/26/2022 End: 02-25-2024 PROTEIN ELECTROPHORESIS SERUM W/INTERP PROTEIN ELECTROPHORESIS SERUM W/INTERP Lab Routine 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 Every 6 months for 2 Occurrences starting 02/25/2023 until 02/25/2024 [facility] Work Phone: Comment on above: Every 6 months for 2 Occurrences startin g 02/25/2023 until 02/25/2024 PROTEIN ELECTROPHORE SIS SERUM W/INTERP PROTEIN ELECTROPHORESIS SERUM W/INTERP Lab Routine 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 02/25/2023 10:44 AM EDT [facility] Work Phone: End: 03-23-2024 PROTEIN ELECTROPHORESIS SERUM W/INTERP PROTEIN ELECTROPHORESIS SERUM W/INTERP Lab Routine 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 Every 6 months for 2 Occurrences starting 03/24/2023 until 03/23/2024 [facility] Work Phone: Comment on above: Every 6 months for 2 Occurrences startin g 03/24/2023 until 03/23/2024 End: 05-17-2023 Radex spine cervical 2 or 3 views XR CERV GENERAL 2V AP/LAT Radiology Routine Cervicalgia Arthrodesis status Adverse effect of treatment, initial encounter 1 Occurrences starting 04/17/2022 until 05/17/2023 [facility] Work Phone: Comment on above: 1 Occurrences starting 04/17/2022 until 05/17/2023 End: 05-17-2023 Radex spine cervical 4 or 5 views XR CERV OTHER 4V AP/LAT/FLX/EXT Radiology Routine Cervicalgia Arthrodesis status Adverse effect of treatment, initial encounter 1 Occurrences starting 04/17/2022 until 05/17/2023 [facility] Work Phone: Comment on above: 1 Occurrences starting 04/17/2022 until 05/17/2023 Radex spine cervical 4 or 5 views XR CERV OTHER 4V AP/LAT/FLX/EXT Radiology Routine Cervicalgia Arthrodesis status Adverse effect of treatment, initial encounter 04/17/2022 10:48 AM EST [facility] Work Phone: End: 08-22-2023 Radex spine lumbosacral 2/3 views XR LUMBAR GENERAL 3V AP/LAT/L5-S1 Radiology Routine Age-related osteoporosis with current pathological fracture with routine healing, subsequent encounter 1 Occurrences starting 07/23/2022 until 08/22/2023 [facility] Work Phone: Comment on above: 1 Occurrences starting 07/23/2022 until 08/22/2023 End: 11-19-2023 XR SHOULDER LIMITED 2V AP/TRUE AP LEFT XR SHOULDER LIMITED 2V AP/TRUE AP LEFT Radiology Routine Closed stable burst fracture of third thoracic vertebra with routine healing, subsequent encounter 1 Occurrences starting 10/20/2022 until 11/19/2023 [facility] Work Phone: Comment on above: 1 Occurrences starting 10/20/2022 until 11/19/2023 XR SHOULDER LIMITED 2V AP/TRUE AP LEFT XR SHOULDER LIMITED 2V AP/TRUE AP LEFT Radiology Routine Closed stable burst fracture of third thoracic vertebra with routine healing, subsequent encounter 10/20/2022 9:09 AM EDT [facility] Work Phone: [facility] Immunizations Immunization Date Immunization Notes Care Provider [facility] 09-19-[address] DEJAN FERRARA MD [facility] 09-05-2019 pneumococcal polysaccharide vaccine, [address] DEJAN FERRARA MD [facility] 09-05-2019 tetanus toxoid, redu peg diphtheria toxoid, and acellular pertussis vaccine, adsorbed DR DEJAN FERRARA MD [facility] 04-06-2015 zoster vaccine, live DR JERMAN FERRARA MD [facility] 05-04-2014 zoster vaccine, live DR JERMAN FERRARA MD [facility] 12-30-2012 pneumococcal polysaccharide vaccine, 23 valent Mayur Cao MD Work Phone: [facility] 12-30-2012 tetanus and diphther ia toxoids, adsorbed, preservative free, for adult use (2 Lf of tetanus toxoid and 2 Lf of diphtheria toxoid) Mayur Cao MD Work Phone: [facility] 05-04-2012 pneumococcal conjuga te vaccine, [address] DEJAN FERRARA MD [facility] No information available. Marleni Chirinos RN [facility] Work Phone: Payers Date Payer Category Payer Medicare (Managed Care) O MED[employer]VANTAGE HMO Member Subscriber Plan / Payer (Effective 2024-Present) Name: Yara Loya Relation to Subscriber: Self Name: Yara Loya Payer ID: Not on file Type: HMO Address: [place] [id number] 2024 Unknown [id number] 2024 Self-pay [id number] 2020 Unknown [id number]. [id number] 2016 Unknown [id number] 2016 Medicare [id number] 2015 Medicare [id number]. [id number] 2015 Unknown [id number] 1959 Medicare [id number] 1959 Unknown [id number] 1950 Unknown [id number] 2.16.840.1.789931.3.579.2. 594 1950 Unknown [id number] 2.16.840.1.092834.3.579.2. 598 1950 Unknown [id number] 2.16.840.1.900415.3.579.2. 627 1950 Unknown [id number] 2.16.840.1.873959.3.579.2. 627 1950 Unknown [id number] 2.16.840.1.007536.3.579.2. 627 Unknown [id number] Unknown [id number] 2.16.840.1.174416.3.579.2. 462 Unknown [id number] 2.16.840.1.790353.3.579.2. 462 Unknown [id number] 2.16.840.1.414775.3.579.2. 462 Unknown [id number] 2.16.840.1.106516.3.579.2. 462 Unknown [id number] 2.16.840.1.719255.3.579.2. 462 Unknown [id number] 2.16.840.1.241556.3.579.2. 462 Unknown [id number] 2.16.840.1.629361.3.579.2. 462 Unknown [id number] 2.16.840.1.131918.3.579.2. 462 Unknown [id number] 2.16.840.1.850861.3.579.2. 462 Unknown [id number] 2.16.840.1.241751.3.579.2. 462 Unknown [id number] 2.16.840.1.146381.3.579.2. 462 Unknown [id number] 2.16.840.1.428056.3.579.2. 462 Unknown [id number] 2.16.840.1.773380.3.579.2. 462 Unknown [id number] 2.16.840.1.201835.3.579.2. 462 Unknown [id number] 2.16.840.1.724440.3.579.2. 462 Unknown [id number] 2.16.840.1.073777.3.579.2. 462 Unknown [id number] 2.16.840.1.086718.3.579.2. 462 Unknown [id number] 2.16.840.1.009681.3.579.2. 462 Unknown [id number] 2.16.840.1.110799.3.579.2. 462 Unknown [id number] 2.16840.1.639077.3.579.2. 462 Unknown [id number] 2.16.840.1.755927.3.579.2. 462 Unknown [id number] 2.16.840.1.557113.3.579.2. 462 Unknown [id number] 2.16.840.1.056979.3.579.2. 462 Unknown [id number] 2.16840.1.078475.3.579.2. 462 Unknown [id number] 2.840.1.478337.3.579.2. 462 Social History Date Type Detail Facility Start: 07-15-2021 End: 01-22-2022 Tobacco smoking status COIS Unknown if ever smoked [facility] Start: 07-03-2017 None [facility] Start: 07-03-2017 Alone [facility] Start: 1950 Sex Assigned At Female C [facility] Start: 02-15-2015 End: 11-18-2024 Tobacco smoking status COIS Ex-smoker [facility] Start: 04-12-1968 End: 04-12-2013 History of tobacco use Current smoker [facility] Start: 04-12-1968 End: 04-12-2013 History of tobacco use Cigarette Smoker [facility] Start: 02-15-2015 End: 12-15-2023 Cigarettes smoked current (pack per day) - Reported 1 [facility] Start: 02-15-2015 End: 04-17-2022 Tobacco use and exposure Smokeless tobacco non-user [facility] Start: 12-18-2021 End: 10-27-2023 Alcohol intake Current non-drinker of alcohol (finding) [facility] Start: 12-07-2014 Tobacco Comment curently 1 pac k per month [facility] Start: 01-28-2022 End: 02-07-2022 Exposure to SARS-CoV-2 (event) Not sure [facility] Start: 10-20-2022 End: 12-15-2023 Tobacco use panel [facility] Adult Depression Screening Assessment 2 [facility] Start: 01-09-2022 Gender identity Identifies as female gender (finding) [facility] Start: 01-09-2022 Sexual orientation Heterosexual (fin ding) [facility] Start: 01-02-2020 End: 08-10-2024 Sex Female (finding) [facility] Sexual Orientation Jalil Hiren ramirez [facility] NEGATED: Highlighted rowStart: 2017 End: 2017 Assertion Former smoker [facility] Work Phone: NEGATED: Highlighted rowStart: 2017 End: 2017 How many days of moderate to strenuous exercise, like a brisk walk, did you do in the last 7 days? EXERCISEFREQ 7 days per week [facility] Work Phone: NEGATED: Highlighted row Not [facility] Medical Equipment Procedure Code Equipment Code Equipment Origin al Text Equipment Identifier Dates Revision of shoulder arthroplasty PASTE,BONE DBX 5CC FDA Start: 06-24-2024 Revision of shoulder arthroplasty Orthopaedic cement, antimicrobial [id number] FDA Start: 06-24-2024 Revision of shoulder arthroplasty PASTE,BONE DBX 5CC FDA Start: 06-24-2024 Revision of shoulder arthroplasty PASTE,BONE DBX 5CC FDA Start: 06-24-2024 Revision of shoulder arthroplasty PASTE,BONE DBX 5CC FDA Start: 06-24-2024 Revision of shoulder arthroplasty PASTE,BONE DBX 5CC FDA Start: 06-24-2024 3 Level Plate 39mm [id number] Start: 12-14-2014 Screw Bn 4mm 14m m Avtr [facility] - [id number] Start: 12-14-2014 ([id number]) Ceramic femoral head prosthesis ()[id number] FDA Start: 12-10-2021 ([id number]) Ceramic femoral head prosthesis ()[id number] FDA Start: 12-10-2021 ([id number]) Non-constrained polyethylene acetabular liner ()[id number] FDA Start: 12-10-2021 ([id number]) Acetabular shell ()[id number] FDA Start: 12-10-2021 ([id number]) Orthopaedic bone screw, non-bioabsorbable, sterile ()[id number] [place] FDA Start: 12-10-2021 ([id number]) Orthopaedic bone screw, non-bioabsorbable, sterile ()[id number] FDA Start: 12-10-2021 Bio Avs C-Plug [id number] Start: 12-14-2014 Bio Avs C-Plug [id number] Start: 12-14-2014 Bio Avs C-Plug [id number] Start: 12-14-2014 Screw Bn 4mm 12m m Avtr [facility] [place] - [id number] Start: 12-14-2014 SCREW FDA Start: 07-22-2023 Polyethylene rev erse shoulder prosthesis cup ()[id number] FDA Start: 07-22-2023 Coated shoulder humeral stem prosthesis ()[id number] FDA Start: 07-22-2023 Reverse shoulder prosthesis head ()[id number] FDA Start: 07-22-2023 Reverse shoulder prosthesis base plate ()[id number] FDA Start: 07-22-2023 SCREW FDA Start: 07-22-2023 SCREW FDA Start: 07-22-2023 SCREW FDA Start: 07-22-2023 SCREW FDA Start: 07-22-2023 SCREW FDA Start: 07-22-2023 SCREW FDA Start: 07-22-2023 Goals Date Patient Goal Desired Activity /State Functional Status Date Assessment Result Facility 09-15-2024 Functional Status Nurse Safety C trina q2hrs Performed 7am-3pm [facility] 09-15-2024 Functional Status Repositions self [facility] 09-15-2024 Functional Status [facility] 09-14-2024 Functional Status Independent [facility] 09-13-2024 Functional Status [facility] 09-13-2024 Functional Status Single level home [facility] 09-13-2024 Functional Status [facility] 09-13-2024 Functional Status [facility] 09-13-2024 Functional Status NPO Status Maintained [facility] 09-13-2024 Functional Status [facility] 08-26-2024 Functional Status [facility] 06-28-2024 Functional status Ambulates;Up ad juan m [facility] Work Phone: 12-12-2021 Functional [facility] Work Phone: 12-17-2014 Are you deaf, or do you have serious difficulty hearing No 12/17/2014 11:09 AM Dennis Garrido (Rn)(Hist), RN No [facility] 12-17-2014 Are you blind, or do you have serious difficulty seeing, even when wearing glasses No 12/17/2014 11:09 AM Dennis Garrido (Rn)(Hist), RN No [facility] 12-17-2014 Do you have serious difficulty walking or climbing stairs Yes 12/17/2014 11:09 AM Dennis Garrido (Rn)(Hist), RN Yes [facility] 12-17-2014 Do you have difficul ty dressing or bathing No 12/17/2014 11:09 AM Dennis Garrido (Rn)(Hist), RN No [facility] 12-17-2014 Because of a physica l, mental, or emotional condition, do you have difficulty doing errands alone such as visiting a physician's office or shopping No 12/17/2014 11:09 AM Dennis GarridoRn)(Hist), RN No [facility] Mental Status Date Assessment Result Facility 09-15-2024 Mental Status Oriented x 4 [facility] 09-14-2024 Mental Status [facility] 09-14-2024 Mental Status [facility] 09-13-2024 Mental Status [facility] 06-28-2024 Cognitive function Voice/Name [facility] Work Phone: 07-22-2023 Cognitive function Voice/Name;Touch/Shaki ng [facility] Work Phone: 12-12-2021 Cognitive function Voice/Name [facility] Work Phone: 07-02-2021 Cognitive function Level Of Cons ciousness Awake;Alert [facility] Work Phone: 07-02-2021 Cognitive function Patient Orien tation Person;Place;Time [facility] Work Phone: 12-17-2014 Because of a physica l, mental, or emotional condition, do you have serious difficulty concentrating, remembering, or making decisions No 12/17/2014 11:09 AM EDT Dennis Donaldson (Rn)(Hist), RN No [facility] Clinical Notes 08-03-2013 to 12-18-2024 Note Date & Type Note Facility 12-18-2024 Radiology Diagnostic study note [facility] Imaging Services [address] [place] [address] Spine Cervical without Contras MR#: [id number] Acct: [id number] Name: YARA LOYA Rep #: [id number] : 1950 F 74 From: Justin Andrade DO PCP: Krystin العراقي, MAID HOUSEKEEPER-C Status: REG C LI Study:Spine Cervical without Contras Date of Exam: 12/16/24 Exam# [id number] Ordering Dr: Edith Loja MD PROCEDURE: SPINE CERVICAL WITHOUT CONTRAS 12/16/2024 REASON FOR EXAM: CERVICAL RADICULOPATHY TECHNIQUE: SPINE CERVICAL WITHOUT CONTRAS Coronal and Sagittal reconstruction series were provided. One or more dose reduction techniques were used (e.g., Automated exposure control, adjustment of the mA and/or kV according to patient size, use of iterative reconstruction technique. COMPARISON: November 18, 2024 FINDINGS: Extensive multilevel posterior cervical fusion/decompression with grossly intacthardware. Anterior fusion with corpectomy changes at C5 through C7. Disc spacers and vertebral body ankylosis from C3 through C5. Vertebral body heights are within normal limits. Negative for fracture or traumatic subluxation. Mild/moderate cervical kyphosis. Degenerative grade 2 anterolisthesis of T2-3 with vertebral body ankylosis. Mild bony spinal stenosis at T2-3. No other significant bony spinal stenosis. Varying degrees of [id number] multilevel bony foraminal narrowing, greatest at T2-3 and T3-4. Moderate biapical emphysema. Bilateral carotid artery calcifications. No paraspinal mass. CT/Spine Cervical without Contras IMPRESSION: 1. No acute osseous abnormality. 2. Degenerative and postoperative changes as above. Reading Location: [facility] CC: MAID HOUSEKEEPER-C Krystin العراقي; Dr. Denis Loja MD ~ Visual C Developer: Signed [facility] 11-18-2024 Evaluation note Diagnosis Onset Date Resolution Cervical radiculopathy acute Ju 2024 10:49am Fusion of spine, cervical region acute November 18, 2024 10:49am [facility] Work Phone: 1(663) 997-337307-10-2025 Note. MICRO - Microbiology PROCEDURE: Acid Fast Bacilli Culture w Stain if Ind [*1] SOURCE: Tissue BODY SITE: Shoulder COLLECTED DATE/TIME: 09/13/2024 11:30 EDT RECEIVED DATE/TIME: 09/13/2024 18:34 EDT START DATE/TIME: 09/13/2024 18:34 EDT FREE TEXT SOURCE: GLENOID MEMBRANE FINAL REPORTS Final Report [] Verified Date/Time/Personnel: 11/10/2024 08:09 EDT No growth of Acid Fast Bacilli PRELIMINARY REPORTS Preliminary Report [] Verified Date/Time/Personnel: 10/27/2024 10:27 EDT No growth of Acid Fast Bacilli to date. Final report to follow at 8 weeks. STAINS AFS [] Verified Date/Time/Personnel: 09/14/2024 12:11 EDT Acid Fast Smear from Concentrated Specimen: Negative Performing Locations *1: This test was performed at: [facility], [address] [place] [address], [facility] , [facility]07-10-2025 Note. MICRO - Microbiology PROCEDURE: Acid Fast Bacilli Culture w Stain if Ind [*1] SOURCE: Tissue BODY SITE: Shoulder COLLECTED DATE/TIME: 09/13/2024 11:30 EDT RECEIVED DATE/TIME: 09/13/2024 18:33 EDT START DATE/TIME: 09/13/2024 18:34 EDT FREE TEXT SOURCE: HUMERAL [employer] FINAL REPORTS Final Report [] Verified Date/Time/Personnel: 11/10/2024 08:07 EDT No growth of Acid Fast Bacilli PRELIMINARY REPORTS Preliminary Report [] Verified Date/Time/Personnel: 10/27/2024 10:27 EDT No growth of Acid Fast Bacilli to date. Final report to follow at 8 weeks. STAINS AFS [] Verified Date/Time/Personnel: 09/14/2024 12:11 EDT Acid Fast Smear from Concentrated Specimen: Negative Performing Locations *1: This test was performed at: [address], [address] [place], [place] [address]-10-2025 Note. MICRO - Microbiology PROCEDURE: Acid Fast Bacilli Culture w Stain if Ind [*1] SOURCE: Tissue BODY SITE: Shoulder COLLECTED DATE/TIME: 09/13/2024 11:30 EDT RECEIVED DATE/TIME: 09/13/2024 18:33 EDT START DATE/TIME: 09/13/2024 18:33 EDT FREE TEXT SOURCE: SYNOVIUM FINAL REPORTS Final Report [] Verified Date/Time/Personnel: 11/10/2024 08:07 EDT No growth of Acid Fast Bacilli PRELIMINARY REPORTS Preliminary Report [] Verified Date/Time/Personnel: 10/27/2024 10:27 EDT No growth of Acid Fast Bacilli to date. Final report to follow at 8 weeks. STAINS AFS [] Verified Date/Time/Personnel: 09/14/2024 12:11 EDT Acid Fast Smear from Concentrated Specimen: Negative Performing Locations *1: This test was performed at: [address], [address] [place], [place] [address]-10-2025 Note. MICRO - Microbiology PROCEDURE: Fungal Culture with Stain if Ind [*1] SOURCE: Tissue BODY SITE: Shoulder COLLECTED DATE/TIME: 09/13/2024 11:30 EDT RECEIVED DATE/TIME: 09/13/2024 18:33 EDT START DATE/TIME: 09/13/2024 18:33 EDT FREE TEXT SOURCE: SYNOVIUM FINAL REPORTS Final Report [] Verified Date/Time/Personnel: 10/11/2024 08:18 EDT No fungus isolated in 4 weeks. PRELIMINARY REPORTS Preliminary Report [] Verified Date/Time/Personnel: 09/16/2024 08:08 EDT No fungus isolated to date. Final report to follow. STAINS FUNSM [] Verified Date/Time/Personnel: 09/14/2024 12:12 EDT No fungal elements observed by calcofluor white stain. Performing Locations *1: This test was performed at: [address], [id number] , [facility]06-10-2025 Note. MICRO - Microbiology PROCEDURE: Fungal Culture with Stain if Ind [*1] SOURCE: Tissue BODY SITE: Shoulder COLLECTED DATE/TIME: 09/13/2024 11:30 EDT RECEIVED DATE/TIME: 09/13/2024 18:33 EDT START DATE/TIME: 09/13/2024 18:34 EDT FREE TEXT SOURCE: HUMER[employer] FINAL REPORTS Final Report [] Verified Date/Time/Personnel: 10/11/2024 08:18 EDT No fungus isolated in 4 weeks. PRELIMINARY REPORTS Preliminary Report [] Verified Date/Time/Personnel: 09/16/2024 08:08 EDT No fungus isolated to date. Final report to follow. STAINS FUNSM [] Verified Date/Time/Personnel: 09/14/2024 12:12 EDT No fungal elements observed by calcofluor white stain. Performing Locations *1: This test was performed at: [address], [id number] , [facility]06-10-2025 Note. MICRO - Microbiology PROCEDURE: Fungal Culture with Stain if Ind [*1] SOURCE: Tissue BODY SITE: Shoulder COLLECTED DATE/TIME: 09/13/2024 11:30 EDT RECEIVED DATE/TIME: 09/13/2024 18:34 EDT START DATE/TIME: 09/13/2024 18:34 EDT FREE TEXT SOURCE: GLENOID MEMBRANE FINAL REPORTS Final Report [] Verified Date/Time/Personnel: 10/11/2024 08:18 EDT No fungus isolated in 4 weeks. PRELIMINARY REPORTS Preliminary Report [] Verified Date/Time/Personnel: 09/16/2024 08:08 EDT No fungus isolated to date. Final report to follow. STAINS FUNSM [] Verified Date/Time/Personnel: 09/14/2024 12:12 EDT No fungal elements observed by calcofluor white stain. Performing Locations *1: This test was performed at: [address], [address] [place], [place] [address]-20-2025 Note. MICRO - Microbiology PROCEDURE: Culture Tissue [*1] SOURCE: Tissue BODY SITE: Shoulder COLLECTED DATE/TIME: 09/13/2024 11:30 EDT RECEIVED DATE/TIME: 09/13/2024 18:34 EDT START DATE/TIME: 09/13/2024 18:34 EDT FREE TEXT SOURCE: GLENOID [employer]BRANE FINAL REPORTS Final Report [] Verified Date/Time/Personnel: 09/20/2024 10:03 EDT No aerobes or anaerobes isolated at 7 days. PRELIMINARY REPORTS Preliminary Report [] Verified Date/Time/Personnel: 09/14/2024 11:17 EDT No growth to date STAINS GS [] Verified Date/Time/Personnel: 09/13/2024 20:08 EDT No organisms seen. Performing Locations *1: This test was performed at: [address], [address] [place], [place] [address]-20-2025 Note. MICRO - Microbiology PROCEDURE: Culture Tissue [*1] SOURCE: Tissue BODY SITE: Shoulder COLLECTED DATE/TIME: 09/13/2024 11:30 EDT RECEIVED DATE/TIME: 09/13/2024 18:33 EDT START DATE/TIME: 09/13/2024 18:34 EDT FREE TEXT SOURCE: HUMERAL [employer]BRANE FINAL REPORTS Final Report [] Verified Date/Time/Personnel: 09/20/2024 10:03 EDT No aerobes or anaerobes isolated at 7 days. PRELIMINARY REPORTS Preliminary Report [] Verified Date/Time/Personnel: 09/14/2024 11:17 EDT No growth to date STAINS GS [] Verified Date/Time/Personnel: 09/13/2024 19:24 EDT 2+ Mononuclear cells 1+ Red Blood Cells No organisms seen. Performing Locations *1: This test was performed at: [address], [id number] [place], [place] [id number] Note. MICRO - Microbiology PROCEDURE: Culture Tissue [*1] SOURCE: Tissue BODY SITE: Shoulder COLLECTED DATE/TIME: 09/13/2024 11:30 EDT RECEIVED DATE/TIME: 09/13/2024 18:33 EDT START DATE/TIME: 09/13/2024 18:33 EDT FREE TEXT SOURCE: SYNOVIUM FINAL REPORTS Final Report [] Verified Date/Time/Personnel: 09/20/2024 10:02 EDT No aerobes or anaerobes isolated at 7 days. PRELIMINARY REPORTS Preliminary Report [] Verified Date/Time/Personnel: 09/14/2024 11:16 EDT No growth to date STAINS GS [] Verified Date/Time/Personnel: 09/13/2024 19:21 EDT 1+ Mononuclear cells No organisms seen. Performing Locations *1: This test was performed at: [address], [id number] [place], [place] [id number] Hospital Discharge instructions Patient Education 09/15/2024 13:01:23 Shoulder Joint Replacement Shoulder Joint Replacement Shoulder joint replacement is surgery to replace damaged parts of the shoulder joint with artificial parts (prostheses). Two parts may be used to replace this joint: The humeral component replaces the head of the upper arm bone (humerus). This is a rounded ball that is attached to a stem that fits into the humerus. The glenoid component replaces the socket (glenoid depression). The prostheses are usually made of metal and plastic. Depending on the damage to your shoulder, thesurgeon may replace just the humeral head (hemiarthroplasty) or replace both the humeral head and the glenoid (total shoulder replacement). The surrounding muscles and tendons hold the prosthetic parts in place. This procedure may be done to relieve joint pain or to treat severe shoulder fractures or arthritis. This surgery may be done if other non-surgical treatments have not worked. Tell a health care provider about: Any allergies you have. All medicines you are taking, including vitamins, herbs, eye drops, creams, and tflt-yii-necujar medicines. Any problems you or family members have had with anesthetic medicines. Any blood disorders you have. Any surgeries you have had. Any medical conditions you have. Whether you are or may be . What are the risks? Generally, this is a safe procedure. However, problems may occur, including: Infection. Bleeding. Allergic reactions to medicines. Damage to other structures, organs, or nerves. Fracture of the upper arm bone during or after surgery. Instability of the shoulder after surgery. Loosening of the glenoid component over time. Unusual bone growth. Failure of bone healing after surgery. What happens before the procedure? Medicines Ask your health care provider about: ?Changing or stopping your regular medicines. This is especially important if you are taking diabetes medicines or blood thinners. ?Taking medicines such as aspirin and ibuprofen. These medicines can thin your blood. Do not take these medicines before your procedure if your health care provider instructs you not to. You may be given antibiotic medicine to help prevent infection. Staying hydrated Follow instructions from your health care provider about hydration, which may include: Up to 2 hours before the procedure you may continue to drink clear liquids, such as water, clear fruit juice, black coffee, and plain tea. Eating and drinking restrictions Follow instructions from your health care provider about eating and drinking, which may include: 8 hours before the procedure stop eating heavy meals or foods such as meat, fried foods, or fatty foods. 6 hours before the procedure stop eating light meals or foods, such as toast or cereal. 6 hours before the procedure stop drinking milk or drinks that contain milk. 2 hours before the procedure stop drinking clear liquids. General instructions Plan to have someone take you home from the hospital or clinic. Plan to have someone with you for 24 hours after the procedure. It is also recommended that you have someone to assist you at home for the first few weeks after the procedure. Do not use any products that contain nicotine or tobacco, such as cigarettes and e-cigarettes. If you need help quitting, ask your healthcare provider. Ask your health care provider how your surgical site will be marked or identified. What happens during the procedure? To reduce your risk of infection: ?Your health care team will wash or sanitize their hands. ?Your skin will be washed with soap. ?Hair may be removed from the surgical area. An IV tube will be inserted into one of your veins. You will be given one or more of the following: ?A medicine to help you relax (sedative). ?A medicine to make you fall asleep (general anesthetic). ?A medicine that is injected into your shoulder area to numb everything around the injection site (regional anesthetic). An incision will be made on the front of the shoulder from the collarbone (clavicle) to the point where the shoulder muscle (deltoid) attaches to the upper arm bone. The upper arm bone will be removed from the socket to expose the ball-like end of the upper arm. The center cavity of the humerus bone will be cleaned and enlarged to create a hollow area that matches the shape of the implant stem. The top end of the bone will be smoothed so the stem will be level with the bone surface when it is inserted. If the ball of the prosthesis is a separate piece, the proper size will be selected and attached. If the socket portion of the joint is healthy and the surrounding muscles are in good condition, the surgeon may decide not to replace it. However, if the socket needs to be replaced: ?The surgeon will prepare the socket surface by removing the remaining damaged cartilage. ?The socket bone will be gently reshaped to fit the implant. ?The glenoid component will be implanted and cemented into position. The arm bone, with its new artificial head, will be replaced in the socket. The surgeon will reattach the supporting tendons and close the incision with sutures or stitches. A bandage (dressing) will be placed over your incision. Your arm will be placed in a sling or immobilizer, and a support pillow will be placed under your elbow. Tubes will be placed to remove excess drainage. These are usually removed after a couple of days. The procedure may vary among health care providers and hospitals. What happens after the procedure? Your blood pressure, heart rate, breathing rate, and blood oxygen level will be monitored until themedicines you were given have worn off. Your arm will be numb if you were given a regional anesthetic. This may last until the next day. You will be given pain medicine as needed. Your arm and shoulder will be stiff and bruised. This will improve over time. An icing device will be placed around your shoulder. This helps to control pain and swelling. Your arm will be in a sling or immobilizer. You will need to wear this for 2 4 weeks after surgery or as told by your health care provider. Your health care team may begin to show you exercises for your shoulder. Do not use your arm to push yourself up in bed or from a chair. Do not lift anything that is heavier than a cup of coffee. Do not drive for 24 hours if you were given a sedative. Ask your health care provider when it is safe for you to drive. Summary Shoulder joint replacement is surgery to replace damaged parts of the shoulder joint with artificial parts (prostheses). The surgeon may replace just the humeral head (hemiarthroplasty) or replace both the humeral head and the glenoid (total shoulder replacement), based on the damage to your shoulder. Taking medicine, icing the painful area, and doing exercises as told by your health care provider will help control your shoulder pain, swelling, and stiffness after surgery. After the procedure, do not lift anything that is heavier than a cup of coffee and do not use your arm to push yourself up in bed or from a chair. This information is not intended to replace advice given to you by your health care provider. Make sure you discuss any questions you have with your health care provider. Document Released: 01/17/2004 Document Revised: 04/02/2018 Document Reviewed: 02/02/2017 [employer] Patient Education 2020 [employer]. 09/15/2024 12:16:35 5 - [facility] Post-op Instruction 12/2016 (30980) [facility] Post-operative Instructions PLEASE FOLLOW [facility] POST-OP INSTRUCTIONS GIVEN WATCH FOR SIGNS OF INFECTION: call the office ([phone]) if experencing any of the following: (Usually appears 36-48 hours after surgery) Increased temperature (101 degrees Fahrenheit or higher) Redness or swelling Increased uncontrolled pain Foul odor or drainage Calf discomfort Significant swelling Or if having any chest pain, shortness of breath, or difficulty breathing or swallowing call the office or go the nearest Emergency Room. If you have any questions, please call your doctor at the number listed on your follow up instructions. Form: 338A ([id number]) R: 09/07 Follow Up Care 08/24/2024 11:17:19 With:DERIAN RUGGIERO PA-C, Orthopedic Address: [address] [place] [address] 2 [facility] [place] [address] [phone] When:09/27/2024 13:15:00 Comments:This is your post-op appointment. Follow-up as scheduled. With:KRYSTIN العراقي Address: [address] [place] [address] [phone] When:Within 2 Week(s) Comments:Please call to schedule your post-hospital follow-up appointment with your PCP to go over labwork results. (Please have labwork done several days prior to appointment.) With:[facility] Address: [address] [place] [phone] [phone] When:09/27/2024 Comments:Please call to schedule your physical therapy appointment to start after you see Derian Ruggiero on 09-27-2024. [facility] 05-15-2025 Note Discharge Instructions Thank you for allowing [facility] to assist you with your healthcare needs. The following is importantdischarge information regarding your hospital visit. 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 (Please have labwork done several days prior to appointment.) Follow Up with [facility] When:In 13 days 09/27/2024 EDT Where:[address] [place] [phone] [phone] Additional Information: Please call to schedule your physical therapy appointment to start after you see Derian Ruggiero on 09-27-2024. Follow Up with DERIAN RUGGIERO PA-C, Orthopedic When:09/27/2024 01:15 PM EDT Where:[address] [place] [address] [address] [facility], [place] [address] [phone] Additional Information: This is your post-op appointment. Follow-up as scheduled. The Following Activity and Diet Have Been Ordered for You No qualifying data available. No qualifying data available. The Following Treatments Have Been Ordered for You Discharge Labs No qualifying data available. Discharge Radiology No qualifying data available. Other Therapies No qualifying data available. Post Acute Orders No qualifying data available. Allergies seasonal enviromental typical Medications Please ask your primary doctor or pharmacist before taking any other medication not listed, including over the counter drugs, herbal medications, vitamins and or supplements as they may interact withyour home medications. What How Much When Why Instructions Last Dose New aspirin 81 Milligram by mouth Two (2) times a day Duration: 14 Days Take 81 mg aspirin twice daily with food for 2 weeks postoperatively for DVT prophylaxis. New doxycycline (doxycycline monohydrate 100 mg oral capsule) 1 cap by mouth Every 12 hours Duration: 12 Days Take antibiotic for 2 weeks postoperatively Pickup at [facility] New famotidine (Pepcid 20 mg oral tablet) 1 tab(s) by mouth Once a day Pickup at [facility] New meloxicam (Mobic 7.5 mg oral tablet) 1 tab(s) by mouth Twice daily with meals Duration: 30 Days Do not take any other nonsteroidal anti-inflammatories while on meloxicam/ Mobic. 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 Christianson Please take this list to your next doctor s visit. Bring all medications you take, including over the counter medications, herbals and other supplements with you to your doctor s visit. Patients and families are reminded to discard old lists and to update any records with all medication providers or retail pharmacies. Medication Leaflets oxycodone (ox i KOE done) Oxaydo, OxyCONTIN, Roxicodone, RoxyBond, Xtampza ER What is the most important information I should know about oxycodone? MISUSE OF OPIOID MEDICINE CAN CAUSE ADDICTION, OVERDOSE, OR . Fatal side effects may occur if you also drink alcohol or use other drugs that cause drowsiness or slow breathing. Using opioid medicine during may cause life-threatening withdrawal symptoms in the . What is oxycodone? Oxycodone is an opioid pain medication used to treat moderate to severe pain. Oxycodone is usually given after other treatments did not work or were not tolerated. Extended-release oxycodone is for lvtizg-lie-jokhk treatment of severe and chronic pain that requires longer treatment. This medicine is not for use on an as-needed basis. Oxycodone may also be used for purposes not listed in this medication guide. What should I discuss with my healthcare provider before taking oxycodone? You should not use oxycodone if you are allergic to it, or if you have severe asthma, breathing problems or a stomach or bowel obstruction (including paralytic ileus). Tell your doctor if you have ever had: other breathing problems, sleep apnea (breathing that stops during sleep); a head injury, brain tumor, high pressure inside the skull, or seizures, drug or alcohol addiction,or mental illness; if you have used an MAO inhibitor in the past 14 days, such as isocarboxazid, linezolid, methylene blue injection, phenelzine, or tranylcypromine; urination problems, problems with your gallbladder, pancreas, thyroid, or adrenal gland; or liver or kidney disease. Most forms of oxycodone are not approved for use in people under 18 years old. The extended-releasetablets should not be given to a child younger than 11 years old. Tell your doctor if you also use stimulant medicine, opioid medicine, herbal products, or medicine for depression, mental illness, Parkinson's disease, migraine headaches, serious infections, or prevention of nausea and vomiting. An interaction with oxycodone could cause a serious condition called serotonin syndrome. May harm an unborn baby. Tell your doctor if you are or plan to become . If you use oxycodone during , your baby could be born with life-threatening withdrawal symptoms, andmay need medical treatment for several weeks. Do not breastfeed. Oxycodone in breast milk can cause life-threatening side effects in a nursing baby. Long-term oxycodone may affect fertility in men or women. could be harder to achieve while either parent is using this medicine. How should I take oxycodone? Follow the directions on your prescription label and read all medication guides or instruction sheets. Never use oxycodone in larger amounts, or for longer than prescribed. Tell your doctor if you feel an increased urge to use more of this medicine. Never share opioid medicine with another person, especially someone with a history of drug addiction. MISUSE CAN CAUSE ADDICTION, OVERDOSE, OR . Keep the medicine where others cannot get to it. Selling or giving away this medicine is against the law. Never crush a pill or use the liquid to inhale the mixture or inject it into your vein. This could result in . Your dose needs may change if you switch to a different brand, strength, or form of this medicine. Avoid medication errors by using exactly as directed on the label, or as prescribed by your doctor. Stop taking all other pefnec-ees-obqii opioid pain medicines when you start taking extended-releaseoxycodone. Swallow the extended-release forms whole to avoid exposure to a potentially fatal overdose. Do not crush, chew, break, open, or dissolve. Take the extended-release capsules with food. Read and carefully follow the instructions for use onhow to prepare and take this medicine if you cannot swallow extended release capsules whole or you use a feeding tube. Ask your doctor or pharmacist if you don't understand these instructions. Measure liquid medicine with the supplied measuring device (not a kitchen spoon). You may be given other medications to help prevent or treat certain side effects. You may have withdrawal symptoms if you stop using oxycodone suddenly. Ask your doctor before stopping the medicine. Store at room temperature away from moisture and heat. Keep your medicine in a place where no one can use it improperly. Do not keep leftover medicine. Just one dose can cause in someone using it accidentally or improperly. Ask your pharmacist about a drug take-back program, or flush the unused medicine down the toilet. What happens if I miss a dose? Since oxycodone is used for pain, you are not likely to miss a dose. Skip any missed dose if it is almost time for your next dose. Do not use two doses at one time. What happens if I overdose? Seek emergency medical attention or call the Poison Help line at . An overdose can befatal, especially in a child or person using opioid medicine without a prescription. Your doctor may recommend you get naloxone (a medicine to reverse an opioid overdose) and keep it with you at all times. A person caring for you can give the naloxone if you stop breathing or don't wake up. Your caregiver must still get emergency medical help and may need to perform CPR (cardiopulmonary resuscitation) on you while waiting for help to arrive. Anyone can buy naloxone from a pharmacy or local health department. Make sure any person caring foryou knows where you keep naloxone and how to use it. What should I avoid while taking oxycodone? Do not drink alcohol or any products that contain alcohol. Dangerous side effects or could occur. Avoid driving or hazardous activity until you know how this medicine will affect you. Dizziness or drowsiness can causing falls, accidents, or severe injuries. Also avoid getting up too fast from a sitting or lying position, or you may feel dizzy. What are the possible side effects of oxycodone? Get emergency medical help if you have signs of an allergic reaction: hives, difficult breathing, swelling of your face, lips, tongue, or throat. Opioid medicine can slow or stop your breathing, and may occur, especially if you drink alcohol or use other drugs that cause drowsiness or slow breathing. A person caring for you should give naloxone and/or seek emergency medical attention if you have slow breathing with long pauses, blue colored lips, or if you are hard to wake up. Call your doctor at once if you have: slow heart rate, weak pulse, fainting, slow breathing (breathing may stop); chest pain, fast or pounding heartbeats; a seizure, extreme drowsiness; or decreased adrenal gland hormones--nausea, vomiting, stomach pain, loss of appetite, feeling tired or light-headed, muscle or joint pain, skin discoloration, craving salty foods. Serious breathing problems may be more likely in older adults and in those who are debilitated or have wasting syndrome or chronic breathing disorders. Seek medical attention right away if you have symptoms of serotonin syndrome, such as: agitation, hallucinations, fever, sweating, shivering, fast heart rate, muscle stiffness, twitching, loss of coordination, nausea, vomiting, or diarrhea. Common side effects may include: sleep problems (insomnia), itching; drowsiness, headache, dizziness, tiredness; or constipation, stomach pain, nausea, vomiting. This is not a complete list of side effects and others may occur. Call your doctor for medical advice about side effects. You may report side effects to FDA at 3-742-OPB-0999. What other drugs will affect oxycodone? You may have a fatal oxycodone overdose if you start or stop using certain medicines. Tell your doctor about all your medications. Tell your doctor about all your medications especially if you use medicine to treat HIV, antibiotic, antifungal medication, or seizure medication. Many other drugs can be dangerous when used with opioid medicine. Tell your doctor if you also use: medicine for allergies, asthma, blood pressure, motion sickness, irritable bowel, or overactive bladder; other opioid medicines, a benzodiazepine sedative like Valium, Klonopin, or Xanax; sleep medicine, muscle relaxers, or other drugs that make you drowsy; or drugs that affect serotonin, such as antidepressants, stimulants, or medicine for migraines or Parkinson's disease. This list is not complete and many other drugs may affect oxycodone. This includes prescription dbylsfv-cgs-cscnwwu medicines, vitamins, and herbal products. Not all possible drug interactions are listed here. Where can I get more information? Your doctor or pharmacist can provide more information about oxycodone. Remember, keep this and all other medicines out of the reach of children, never share your medicines with others, and use this medication only for the indication prescribed. Every effort has been made to ensure that the information provided by [employer]. [employer] is accurate, up-to-date, and complete, but no guarantee is made to that effect. Drug information contained herein may be time sensitive. [employer] information has been compiled for use by healthcare practitioners and consumers in the [place] and therefore [employer] does not warrant that uses outside of the [place] are appropriate, unless specifically indicated otherwise. [employer] drug information does not endorse drugs, diagnose patients or recommend therapy. [employer] drug information isan informational resource designed to assist licensed healthcare practitioners in caring for their p atients and/or to serve consumers viewing this service as a supplement to, and not a substitute for, the expertise, skill, knowledge and judgment of healthcare practitioners. The absence of a warningfor a given drug or drug combination in no way should be construed to indicate that the drug or drug combination is safe, effective or appropriate for any given patient. [employer] does not assume any responsibility for any aspect of healthcare administered with the aid of information [employer] provides. The information contained herein is not intended to cover all possible uses, directions, precautions, warnings, drug interactions, allergic reactions, or adverse effects. If you have questions about the drugs you are taking, check with your doctor, nurse or pharmacist. Copyright 1761-8674 [facility] [employer]. Version: 17.. Revision Date: 05/26/2023. meloxicam (oral/injection) ([place] OKS i soheila) Anjeso, Mobic, Vivlodex What is the most important information I should know about meloxicam? Meloxicam can increase your risk of fatal heart attack or stroke. Do not use this medicine just before or after heart bypass surgery (coronary artery bypass graft, or CABG). Meloxicam may also cause stomach or intestinal bleeding, which can be fatal. What is meloxicam? Meloxicam is a nonsteroidal anti-inflammatory drug (NSAID) that is used to treat osteoarthritis or rheumatoid arthritis in adults. Meloxicam is also used to treat juvenile rheumatoid arthritis in children who are at least 2 years old. The Anjeso brand of meloxicam is used to treat moderate to severe pain in adults. Vivlodex is for use only in adults. Meloxicam may also be used for purposes not listed in this medication guide. What should I discuss with my healthcare provider before receiving meloxicam? Meloxicam can increase your risk of fatal heart attack or stroke. Do not use this medicine just before or after heart bypass surgery (coronary artery bypass graft, or CABG). Meloxicam may also cause stomach or intestinal bleeding, which can be fatal. Meloxicam may also cause stomach or intestinal bleeding, which can be fatal. These conditions can occur without warning while you are using meloxicam, especially in older adults. You should not use meloxicam if you are allergic to it, or if you ever had an asthma attack or severe allergic reaction after taking aspirin or an NSAID. Tell your doctor if you have ever had: heart disease, high blood pressure, high cholesterol, diabetes, or if you smoke; a heart attack, stroke, or blood clot; ulcers or stomach bleeding; asthma; kidney disease (or if you are on dialysis); liver disease; or fluid retention. If you are , you should not take meloxicam unless your doctor tells you to. Taking an NSAIDduring the last 20 weeks of can cause serious heart or kidney problems in the unborn babyand possible complications with your . Meloxicam may cause a delay in ovulation (the release of an egg from an ovary). You should not takemeloxicam if you are undergoing fertility treatment, or are otherwise trying to get . Ask a doctor if it is safe to breastfeed while using this medicine. Meloxicam is not approved for use by anyone younger than 2 years old. How is meloxicam given? Follow all directions on your prescription label and read all medication guides or instruction sheets. Use the lowest effective dose for your condition. Meloxicam oral is taken by mouth. Meloxicam injection is given as an infusion into a vein. A healthcare provider will give you this injection. Your dose needs may change if you switch to a different brand, strength, or form of this medicine. Avoid medication errors by using only the medicine your doctor prescribes. Meloxicam doses are based on weight (especially in children and teenagers). Your dose needs may change if you gain or lose weight. If you use this medicine long-term, you may need frequent medical tests. Store meloxicam oral suspension, tablets or capsules at room temperature, away from moisture and heat. Keep the bottle tightly closed when not in use. What happens if I miss a dose? Use the medicine as soon as you can, but skip the missed dose if it is almost time for your next dose. Do not use two doses at one time. What happens if I overdose? Seek emergency medical attention or call the Poison Help line at . What should I avoid while receiving meloxicam? Drinking alcohol may increase your risk of stomach bleeding. Avoid taking aspirin while you are taking meloxicam, unless your doctor tells you to. Ask a doctor or pharmacist before using other medicines for pain, fever, swelling, or cold/flu symptoms. They may contain ingredients similar to meloxicam (such as aspirin, ibuprofen, ketoprofen, or naproxen). What are the possible side effects of meloxicam? Get emergency medical help if you have signs of an allergic reaction (hives, difficult breathing, swelling in your face or throat) or a severe skin reaction (fever, sore throat, burning eyes, skin pain, red or purple skin rash with blistering and peeling). Get emergency medical help if you have signs of a heart attack or stroke: chest pain spreading to your jaw or shoulder, sudden numbness or weakness on one side of the body, slurred speech, leg swelling, feeling short of breath. Stop using meloxicam and call your doctor at once if you have: the first sign of any skin rash, no matter how mild; shortness of breath (even with mild exertion); swelling or rapid weight gain; signs of stomach bleeding--bloody or tarry stools, coughing up blood or vomit that looks like coffee grounds; liver problems--nausea, upper stomach pain, itching, tired feeling, flu-like symptoms, loss of appetite, dark urine, yannick-colored stools, jaundice (yellowing of the skin or eyes); low red blood cells (anemia)--pale skin, unusual tiredness, feeling light- headed, cold hands and feet; or kidney problems--little or no urination, swelling in your feet or ankles, feeling tired or short ofbreath. Common side effects may include: stomach pain, nausea, vomiting, heartburn; diarrhea, constipation, gas; dizziness; or cold symptoms, flu symptoms. This is not a complete list of side effects and others may occur. Call your doctor for medical advice about side effects. You may report side effects to FDA at 1-766-AAS-1219. What other drugs will affect meloxicam? Ask your doctor before using meloxicam if you take an antidepressant. Taking certain antidepressants with an NSAID may cause you to bruise or bleed easily. Tell your doctor about all your other medicines, especially: cyclosporine; lithium; methotrexate; pemetrexed; sodium polystyrene sulfonate (Kayexalate); a blood thinner (warfarin, Coumadin, Jantoven); heart or blood pressure medication, including a diuretic or 'water pill'; or steroid medicine (such as prednisone). This list is not complete. Other drugs may affect meloxicam, including prescription and jsgv-wmf-kdvqzbz medicines, vitamins, and herbal products. Not all possible drug interactions are listed here. Where can I get more information? Your doctor or pharmacist can provide more information about meloxicam. Remember, keep this and all other medicines out of the reach of children, never share your medicines with others, and use this medication only for the indication prescribed. Every effort has been made to ensure that the information provided by [employer] is accurate, up-to-date, and complete, but no guarantee is made to that effect. Drug information contained herein may be time sensitive. [employer] information has been compiled for use by healthcare practitioners and consumers in the [place] and therefore [employer] does not warrant that uses outside of the [place] are appropriate, unless specifically indicated otherwise. [employer] drug information does not endorse drugs, diagnose patients or recommend therapy. [employer] drug information isan informational resource designed to assist licensed healthcare practitioners in caring for their p atients and/or to serve consumers viewing this service as a supplement to, and not a substitute for, the expertise, skill, knowledge and judgment of healthcare practitioners. The absence of a warningfor a given drug or drug combination in no way should be construed to indicate that the drug or drug combination is safe, effective or appropriate for any given patient. [employer] does not assume any responsibility for any aspect of healthcare administered with the aid of information [employer] provides. The information contained herein is not intended to cover all possible uses, directions, precautions, warnings, drug interactions, allergic reactions, or adverse effects. If you have questions about the drugs you are taking, check with your doctor, nurse or pharmacist. Copyright [id number] [employer]. Version: 16.. Revision Date: 07/09/2022. ondansetron (oral) (on PRANEETH se isabel) What is the most important information I should know about ondansetron? Tell your doctor about all your other medicines. Some drugs should not be used with ondansetron. What is ondansetron? Ondansetron is used to prevent nausea and vomiting that may happen with certain cancer medicines (chemotherapy), or after surgery, or radiation treatment . Ondansetron may be used for purposes not listed in this medication guide. What should I discuss with my health care provider before taking ondansetron? You should not use ondansetron if you are allergic to it or similar medicines (dolasetron, granisetron, palonosetron). Some drugs should not be used with ondansetron. Your treatment plan may change if you also use apomorphine. Tell your doctor if you have or have ever had: an electrolyte imbalance (such as low blood levels of potassium or magnesium); congestive heart failure, slow heartbeats; heart rhythm disorder such as long QT syndrome (in you or a family member); an obstruction in the stomach or intestines, a change in bowel habits; a surgery on your stomach or intestines; or severe liver disease. The orally disintegrating tablet may contain phenylalanine and could be harmful if you have phenylketonuria (PKU). Tell your doctor if you also use stimulant medicine, opioid medicine, herbal products, or medicine for depression, mental illness, Parkinson's disease, migraine headaches, serious infections, or prevention of nausea and vomiting. An interaction with ondansetron could cause a serious condition called serotonin syndrome. Tell your doctor if you are or . Ondansetron is not approved for use by anyone younger than 4 years old. How should I take ondansetron? Follow all directions on your prescription label and read all medication guides or instruction sheets. Use the medicine exactly as directed. Ondansetron is usually taken just before surgery, chemotherapy, or radiation treatment. Follow yourdoctor's dosing instructions very carefully. Measure liquid medicine with the supplied measuring device (not a kitchen spoon). To take the orally disintegrating tablet: Keep the tablet in its blister pack until you are ready to take it. Open the package and peel back the foil. Use dry hands to remove the orally disintegrating tablet and place it in your mouth. Do not push a tablet through the foil or you may damage the tablet. Allow the orally disintegrating tablet to dissolve in your mouth without chewing. Do not swallow whole. Store in the original container at room temperature away from moisture, heat, and light. Store liquid medicine in an upright position. What happens if I miss a dose? Ondansetron is used when needed. If you are on a dosing schedule, skip any missed dose. Do not use two doses at one time. What happens if I overdose? Seek emergency medical attention or call the Poison Help line at . What should I avoid while taking ondansetron? Follow your doctor's instructions about any restrictions on food, beverages, or activity. What are the possible side effects of ondansetron? Get emergency medical help if you have signs of an allergic reaction: hives, difficult breathing, swelling of your face, lips, tongue, or throat. Seek medical attention right away if you have symptoms of serotonin syndrome such as: agitation, hallucinations, fever, sweating, shivering, fast heart rate, muscle stiffness, twitching, loss of coordination, nausea, vomiting, or diarrhea. Seek emergency medical help if you have signs of a heart attack: chest pain that spreads to your jaw or shoulder, nausea, and sweating. Call your doctor at once if you have: severe stomach pain, bloating, constipation, or any change in bowel habits; or dizziness, feeling lightheaded, fainting, slow, fast, or uneven heartbeats. Common side effects may include: diarrhea or constipation; headache; shortness of breath, rapid breathing, fast heartbeats; or feeling unwell, tiredness. This is not a complete list of side effects and others may occur. Call your doctor for medical advice about side effects. You may report side effects to FDA at 6-346-XIF-2994. What other drugs will affect ondansetron? Ondansetron can cause a serious heart problem. Your risk may be higher if you also use certain other medicines for infections, asthma, heart problems, high blood pressure, depression, mental illness,cancer, malaria, or HIV. Many drugs can affect ondansetron. This includes prescription and neyb-gjs-tsyygei medicines, vitamins, and herbal products. Not all possible interactions are listed here. Tell your doctor about all other medicines you use. Where can I get more information? Your doctor or pharmacist can provide more information about ondansetron. Remember, keep this and all other medicines out of the reach of children, never share your medicines with others, and use this medication only for the indication prescribed. Every effort has been made to ensure that the information provided by [employer] is accurate, up-to-date, and complete, but no guarantee is made to that effect. Drug information contained herein may be time sensitive. [employer] information has been compiled for use by healthcare practitioners and consumers in the [place] and therefore [employer] does not warrant that uses outside of the [place] are appropriate, unless specifically indicated otherwise. [employer] drug information does not endorse drugs, diagnose patients or recommend therapy. [employer] drug information isan informational resource designed to assist licensed healthcare practitioners in caring for their p atients and/or to serve consumers viewing this service as a supplement to, and not a substitute for, the expertise, skill, knowledge and judgment of healthcare practitioners. The absence of a warningfor a given drug or drug combination in no way should be construed to indicate that the drug or drug combination is safe, effective or appropriate for any given patient. [employer] does not assume any responsibility for any aspect of healthcare administered with the aid of information [employer] provides. The information contained herein is not intended to cover all possible uses, directions, precautions, warnings, drug interactions, allergic reactions, or adverse effects. If you have questions about the drugs you are taking, check with your doctor, nurse or pharmacist. Copyright [id number] [employer]. Version: 17.. Revision Date: 01/26/2024. famotidine (oral/injection) (fam [place] ti filiberto) Heartburn Relief, Pepcid, Pepcid AC, Pepcid AC Maximum Strength, Zantac 360 What is the most important information I should know about famotidine? Follow all directions on the label and package. Use exactly as directed. What is famotidine? Famotidine is used to treat and prevent ulcers in the stomach and intestines. It also treats conditions in which the stomach produces too much acid, such as Doris-Swift syndrome. Famotidine also treats gastroesophageal reflux disease (GERD) and other conditions in which acid backs up from the stomach into the esophagus, causing heartburn. The Zantac 360 brand of this medicine does not contain ranitidine, a medicine that was withdrawn from market in the [place]. Famotidine may also be used for purposes not listed in this medication guide. What should I discuss with my healthcare provider before taking famotidine? Heartburn can feel like a heart attack. Get emergency medical help if you have chest pain that spreads to your jaw or shoulder. You should not use this medicine if you are allergic to famotidine or similar medicines such as ranitidine (Zantac), cimetidine (Tagamet), or nizatidine (Axid). Ask a doctor or pharmacist if this medicine is safe to use if you have: kidney disease; liver disease; cancer stomach; or long QT syndrome (in you or a family member). Ask a doctor before using this medicine if you are or . How should I take famotidine? Use exactly as directed on the label, or as prescribed by your doctor. Famotidine oral is taken by mouth. Famotidine injection is given in a vein if you are unable to take the medicine by mouth. You may take famotidine oral with or without food. Measure liquid medicine with the supplied syringe or a dose-measuring device (not a kitchen spoon). Most ulcers heal within 4 weeks of famotidine treatment, but it may take up to 8 weeks of using this medicine before your ulcer heals. Keep using the medication as directed. Call your doctor if the condition you are treating with famotidine does not improve, or if it gets worse while using famotidine. Your treatment may also include changes in diet or lifestyle habits. Follow all instructions of your doctor or dietitian. Store at room temperature away from moisture, heat, and light. Do not allow the liquid medicine to freeze. Throw away any unused famotidine liquid that is older than 30 days. What happens if I miss a dose? Take the medicine as soon as you can, but skip the missed dose if it is almost time for your next dose. Do not take two doses at one time. What happens if I overdose? Seek emergency medical attention or call the Poison Help line at . What should I avoid while taking famotidine? Drinking alcohol may increase the risk of damage to your stomach. Avoid taking other stomach acid reducers unless your doctor has told you to. However, you may take an antacid (such as Maalox, Mylanta, Gaviscon, Milk of Magnesia, Rolaids, or Tums) with famotidine. What are the possible side effects of famotidine? Get emergency medical help if you have signs of an allergic reaction: hives; difficult breathing; swelling of your face, lips, tongue, or throat. Stop using famotidine and call your doctor at once if you have: confusion, hallucinations, agitation, lack of energy; a seizure; fast or pounding heartbeats, sudden dizziness (like you might pass out); or unexplained muscle pain, tenderness, or weakness especially if you also have fever, unusual tiredness, and dark colored urine. Some side effects may be more likely in older adults and in people who have severe kidney disease. Common side effects may include: headache; dizziness; or constipation or diarrhea. This is not a complete list of side effects and others may occur. Call your doctor for medical advice about side effects. You may report side effects to FDA at 8-790-BIZ-1340. What other drugs will affect famotidine? Famotidine oral can make it harder for your body to absorb other medicines you take by mouth. Tell your doctor if you are taking: cefditoren; dasatinib; delavirdine; fosamprenavir; or tizanidine (if you are taking famotidine liquid). This list is not complete. Other drugs may affect famotidine, including prescription and ngxs-liv-hqwhgok medicines, vitamins, and herbal products. Not all possible drug interactions are listed here. Where can I get more information? Your doctor or pharmacist can provide more information about famotidine. Remember, keep this and all other medicines out of the reach of children, never share your medicines with others, and use this medication only for the indication prescribed. Every effort has been made to ensure that the information provided by [employer]. ('[employer]') is accurate, up-to-date, and complete, but no guarantee is made to that effect. Drug information contained herein may be time sensitive. [employer] information has been compiled for use by healthcare practitioners and consumers in the [place] and therefore [employer] does not warrant that uses outside of the [place] are appropriate, unless specifically indicated otherwise. [employer]'s drug information does not endorse drugs, diagnose patients or recommend therapy. [employer] drug information isan informational resource designed to assist licensed healthcare practitioners in caring for their p atients and/or to serve consumers viewing this service as a supplement to, and not a substitute for, the expertise, skill, knowledge and judgment of healthcare practitioners. The absence of a warningfor a given drug or drug combination in no way should be construed to indicate that the drug or drug combination is safe, effective or appropriate for any given patient. [facility] does not assume any responsibility for any aspect of healthcare administered with the aid of information [facility] provides. The information contained herein is not intended to cover all possible uses, directions, precautions, warnings, drug interactions, allergic reactions, or adverse effects. If you have questions about the drugs you are taking, check with your doctor, nurse or pharmacist. Copyright 2456-5611 [facility]. Version: . Revision Date: 11/24/2022. doxycycline (oral/injection) (DOX norma kiser) Acticlate, Adoxa, Alodox, Avidoxy, Doryx, Lymepak, Mondoxyne NL, Monodox, Morgidox, Okebo, Oracea, Targadox What is the most important information I should know about doxycycline? You should not take this medicine if you are allergic to any tetracycline antibiotic. Children younger than 8 years old should use doxycycline only in cases of severe or life-threatening conditions. This medicine can affect tooth development and growth and cause permanent yellowing orgraying of the teeth in children. Using doxycycline during could harm the unborn baby or cause permanent tooth discoloration later in the baby's life. What is doxycycline? Doxycycline is used to treat many different bacterial infections, such as acne, urinary tract infections, intestinal infections, respiratory infections, eye infections, certain sexually transmitted infections, periodontitis (gum disease), and others. Doxycycline is also used to treat blemishes, bumps, and acne-like lesions caused by rosacea. Doxycycline will not treat facial redness caused by rosacea. Some forms of doxycycline are used to prevent malaria, to treat anthrax, or to treat infections caused by mites, ticks, or lice. Doxycycline may also be used for purposes not listed in this medication guide. What should I discuss with my healthcare provider before using doxycycline? You should not use this medicine if you are allergic to doxycycline or other tetracycline antibiotics such as demeclocycline, minocycline, tetracycline, or tigecycline. Tell your doctor if you have or have ever had: increased pressure inside your skull; diarrhea or diarrhea that is watery; stomach surgery; vision problems; vagina infection; take iron supplements, multivitamins, calcium supplements, laxatives, medicine containing bismuth subsalicylate, or antacids containing aluminum, calcium, or magnesium; use a proton pump inhibitor (such as omeprazole, esomeprazole, Nexium, Prevacid, Prilosec, or Protonix); if you also take isotretinoin or acitretin, seizure medicine, or a blood thinner such as warfarin (Coumadin); or liver or kidney disease. If you are using doxycycline to treat gonorrhea, your doctor may test you to make sure you do not also have syphilis, another sexually transmitted disease. Taking this medicine during may affect tooth and bone development in the unborn baby. Taking doxycycline during the last half of can cause permanent tooth discoloration later in the baby's life. Tell your doctor if you are or plan to become . Doxycycline can make control pills less effective. Ask your doctor about other control options such as an injection, implant, skin patch, vaginal ring, condom, diaphragm, cervical cap, orcontraceptive sponge. Doxycycline can pass into breast milk and may affect bone and tooth development in a nursing infant. Do not breastfeed while you are taking doxycycline, and for at least 5 days after your last dose. Doxycycline can affect tooth development and growth and cause permanent yellowing or graying of theteeth in children younger than 8 years old. Children should use doxycycline only in cases of severeor life-threatening conditions such as anthrax or [place] spotted fever. The benefit of treating a serious condition may outweigh any risks to the child's tooth development. How should I use doxycycline? Follow all directions on your prescription label and read all medication guides or instruction sheets. Use the medicine exactly as directed. Your doctor will perform tests to make sure doxycycline is the right treatment for you. Take doxycycline with a full glass of water. Drink plenty of liquids while you are taking doxycycline. Most brand forms of doxycyline may be taken with food or milk if the medicine upsets your stomach. Different brand forms of doxycycline may have different instructions about taking them with or without food. Take Oracea on an empty stomach, at least 1 hour before or 2 hours after a meal. Swallow a delayed-release capsule or tablet whole. Do not crush, chew, break, or open it. Measure liquid medicine with the supplied measuring device (not a kitchen spoon). If you take doxycycline to prevent malaria: Start taking the medicine 1 or 2 days before entering an area where malaria is common. Continue taking the medicine every day during your stay and for at least 4 weeks after you leave the area. Doxycycline may be given as an infusion into a vein. A healthcare provider will give you this injection. Keep using this medicine even if your symptoms quickly improve. Skipping doses could make your infection resistant to medication. Doxycycline will not treat a viral infection (flu or a common cold). St (more content not included)... [facility]05-15-2025 Discharge summary Date of Service September 15, 2024 Hospital Course Patient is a 73-year-old female who had a previous right reverse total shoulder arthroplasty by Dr.Steven Ferrara on 2015. Patient has been having ongoing cervical spine and neck pain. She has been treated by pain management with Dr Christianson. Patient was having increased shoulder pain and had the shoulder injected by pain management. After that injection she developed pain and inflammationwith swelling into the right shoulder. Aspiration was attempted at that time however there was not enough aspirate to be sent for analysis. She had elevated inflammatory markers. She underwent a right shoulder removal total shoulder arthroplasty with placement of antibiotic spacer on June 24, 2024. This was followed by 6 weeks of IV antibiotics with ceftriaxone and followed by infectious disease after finishing all antibiotics patient was ready for revision total shoulder arthroplasty. Preoperatively she was found on lab work for anemia. She has been using ferrous sulfate and folic acid..After failing conservative measures, the patient opted to proceed with a revision right reverse total shoulder arthroplasty with removal of antibiotic spacer. The patient underwent the above stated procedure on September 13, 2024. Patient did receive perioperative antibiotics. Intraoperatively was uneventful. For details, please see dictated operative note. The patient was placed in thigh-high teds, bilateral SCDs, remained stable in recovery. [facility]ad[facility]. The patient's pain was managed with the use of IV and p.o. pain medications. Patient participated in physical therapy. Patient was discharged on postoperative day # 2 to home. Patient was given prescriptions for: Aspirin, doxycycline, famotidine, meloxicam, Zofran, and oxycodone. We did reach out the pain management prior to surgery and they wanted Dr. Dejan Ferrara to establish pain medication and after discharge they will continue to manage patient with any refills and further adjustments. Patient voiced understanding. Her cultures and Gram stains were negative postoperatively. She will continue on the doxycycline for 2 weeks following surgery. She will continue with 81 mg aspirin twice daily for 2 weeks for DVT prophylaxis. Patient was advised not to use home narcotics with any postoperative discharge narcotic medication Dr. Dejan Ferrara is using. She voiced understanding and agreement. She was given a small prescription of Zofran as she did develop some nausea postoperatively. It has been managed well with antinausea medication. Patient was advised to schedule follow-up with her primary care provider. Care management team attempted to schedule this however patient refused and wants to do it herself. She also refusedto have physical therapy appointment established. I did advise her of the importance to get these appointments scheduled sooner than later. We discussed the importance of appropriate physical therapyfollowing the surgery so that she can have the appropriate recovery. Patient will follow-up with [facility] per postop instructions. Allergies seasonal enviromental typical Procedures Revision right reverse total shoulder arthroplasty with removal of antibiotic spacer Consults Consult to Anesthesia - Ordered -- 09/13/24 7:50:00 EDT, surgery pending, NERVE BLOCK TO BE PLACED IN PRE OP BY ANESTHESIA FOR POSTOP PAIN CONTROL Consult to Physician - Ordered -- 09/13/24 14:33:00 EDT, EDGARDO CERDA APRN-MARCELLO, Routine, ok to see tomorrow, Constant order, Medical physician. Objective Vitals and Measurements T: 37.1 C (Oral) TMIN: 36.5 C (Oral) TMAX: 37.1 C (Oral) HR: 94 (Monitored) RR: 18 BP: 117/90 SpO2:98% Weight Dosing Weight: 43.2 kg (09/13/24) Dosing Weight: 43.2 kg (09/13/24) Vital signs stable, afebrile Dressing is clean dry and intact UltraSling fitting appropriately Sensation is intact to axillary, radial, median, and ulnar distribution Motor intact with patient able to make okay sign, cross fingers, and thumbs up EVAN hose in place bilaterally Code Status Code Status - Ordered -- 09/13/24 13:10:00 EDT, Full Code, Constant Order Admission Date September 13, 2024 Discharge Date September 15, 2024 Medications New Prescription [id number] Milligram by mouth two (2) times a day for 14 Days. Take 81 mg aspirin twice daily with food for 2 weeks postoperatively for DVT prophylaxis.. doxycycline (doxycycline monohydrate 100 mg oral capsule)1 cap by mouth every 12 hours for 12 Days.Take antibiotic for 2 weeks postoperatively. Refills: 0. famotidine (Pepcid 20 mg oral tablet)1 tab(s) by mouth once a day. Refills: 0. meloxicam (Mobic 7.5 mg oral tablet)1 tab(s) by mouth twice daily with meals for 30 Days. Do not take any other nonsteroidal anti-inflammatories while on meloxicam/Mobic.. Refills: 0. ondansetron (ondansetron 4 mg oral tablet)1 tab(s) by mouth every 8 hours as needed Nausea/Vomiting. Refills: 0. oxyCODONE (oxyCODONE 5 mg oral tablet ( IMMEDIATE release ))1-2 tab(s) Oral q4h; as needed as needed for pain. Refills: 0. Unchanged cyanocobalamin (Vitamin B12 500 mcg oral tablet)1 tab(s) by mouth once a day. herbal/nutritional productCOLLAGEN 1 SCOOP DAILY. levothyroxine (levothyroxine 25 mcg (0.025 mg) oral tablet)TAKE 1 (one) tablet daily except 2 tabs on Sundays. Discontinued acetaminophen-oxyCODONE (acetaminophen-oxycodone 325 mg-7.5 mg oral tablet)1 tab(s) by mouth every [address] Christianson. Follow Up Follow Up with KRYSTIN العراقي When:In 2 weeks Where:[address] [place] [address] [phone] Additional Information: Please call to schedule your post-hospital follow-up appointment with your PCP to go over labwork results. (Please have labwork done several days prior to appointment.) Follow Up with [facility] When:In 13 days 09/27/2024 EDT Where:[address] [place] [phone] Additional Information: Please call to schedule your physical therapy appointment to start after you see Derian Ruggiero on 09-27-2024. Follow Up with DERIAN RUGGIERO PA-C, Orthopedic When:09/27/2024 01:15 PM EDT Where:[address] [facility] [address] [facility], [place] [address] [phone] Additional Information: This is your post-op appointment. Follow-up as scheduled. Follow Up Appointments No qualifying data available. Follow Up Labs/Studies Discharge Labs No Follow-up Labs Discharge Studies No Follow-up Studies Discharge Diet No qualifying data available. Discharge Activity No qualifying data available. Condition on Discharge Stable Readmission Risk/Palliative Score LACE Score: 5 (09/13/24 15:02:00) Palliative Total Score: 0 (09/13/24 14:47:00) Discharge Disposition Stable Digitally Signed by TJ LAST PA-C on 09/15/2024 12:[address] [facility]05-15-2025 Note Date of Service September 15, 2024 Subjective The patient was sitting in bedside chair upon examination. Patient denies any chest pain, shortnessof breath, dizziness, lightheadedness, or calf pain. Patient was complaining of some nausea this morning which improved with medication. No adverse overnight events. Patient continues to complain of i ncreased pain in the right shoulder. She does not appear to be in distress. Vitals do not correlatewith her pain levels. Patient will continue to follow postoperatively with her pain management provider. Patient is aware for any further medications after discharge she is to contact her pain management provider. Objective Vitals and Measurements T: 37.1 C (Oral) TMIN: 36.5 C (Oral) TMAX: 37.1 C (Oral) HR: 94 (Monitored) RR: 18 BP: 117/90 SpO2:98% Intake and Output 7AM Yesterday to 7AM Today Intake and Output (Last 24 hours) Intake Oral Intake 900.00 Output Urine Count 5.00 Total Summary Total Intake 900.00 Total Output 0.00 Fluid Balance 900.00 Physical Exam Vital signs stable, afebrile Dressing is clean dry and intact UltraSling fitting appropriately Sensation is intact to axillary, radial, median, and ulnar distribution Motor intact with patient able to make okay sign, cross fingers, and thumbs up EVAN hose are in place bilaterally Weight Dosing Weight: 43.2 kg (09/13/24) Dosing Weight: 43.2 kg (09/13/24) Medications Medications (18) Active Scheduled: (9) aspirin 81 mg EC 81 mg 1 tab(s), Oral, BID docusate sodium 100 mg Capsule 100 mg 1 cap(s), Oral, BID docusate-senna (Senokot S) 50 mg-8.6 mg Tablet 2 tab(s), Oral, BID doxycycline hyclate 100 mg Capsule 100 mg 1 cap(s), Oral, q12h famotidine 20 mg tablet 20 mg 1 tab(s), Oral, qDay levothyroxine 50 mcg tablet 25 mcg 0.5 tab(s), Oral, Thu//Thu//Thu/Thu levothyroxine 50 mcg tablet 50 mcg 1 tab(s), Oral, Thursday magnesium hydroxide 8% Suspension 30 mL UD 30 mL, Oral, Daily meloxicam 7.5 mg tablet 7.5 mg 1 tab(s), Oral, BIDM Continuous: (0) PRN: (9) acetaminophen 325 mg Tablet 650 mg 2 tab(s), Oral, q4h diphenhydramine 25 mg tablet 25 mg 1 tab(s), Oral, q6h diphenhyDRAMINE 50 mg/mL (1 mL) INJ 25 mg 0.5 mL, IV Push, q6h ketorolac 30 mg/mL (1 mL) vial 15 mg 0.5 mL, IV Push, q6h ondansetron 2 mg/ 1 mL 2 mL INJ 4 mg 2 mL, IV Push, q8h oxycodone 5 mg tablet (immediate release) 5 mg 1 tab(s), Oral, q4h oxycodone 5 mg tablet (immediate release) 10 mg 2 tab(s), Oral, q4h prochlorperazine 10 mg/2 mL vial 5 mg 1 mL, IV Push, q6h sodium biphosphate-sodium phosphate 19 gm-7 gm Enema 133 mL, Rectal, qDay Lab Results 09/15 05:19 WBC: 7.8 Hgb: 10.0 L Hct: 28.5 L Platelet: 152 Neutrophil %: 63.5 05/14 05:11 WBC: 8.6 Hgb: 9.1 L Hct: 26.5 L Platelet: 139 L Neutrophil %: 76.3 H Glucose Level: 99 Sodium Level: 135 L Potassium Level: 4.2 BUN: 23 H Creatinine Lvl (s): 0.90 EKG No qualifying data available. Assessment/Plan Hypotension Hypothyroidism Osteoarthritis 1. Status post right shoulder revision reverse total shoulder arthroplasty with removal antibiotic spacer postop day #2 2. Continue pain medications: Tylenol, meloxicam, and oxycodone. Do not take any other nonsteroidalanti-inflammatories while on meloxicam/Mobic. We also reached out the patient's pain management provider for postoperative management. They would like Dr. Dejan Ferrara to establish the pain medication and upon discharge they will take over with management. I did advise patient that she is on the ox ycodone and she should not combine this with the hydrocodone/acetaminophen that she has been using in the past. She did voiced understanding. Patient states she has an appointment upon discharge withthe pain management provider. I did advise her for any refills she will need to contact the pain management provider. 3. DVT prophylaxis: Take 81 mg aspirin twice daily with food for 2 weeks postoperatively for DVT prophylaxis. Patient denies past history of DVT or pulmonary embolism. 4. Physical therapy: Continue with UltraSling at all times. Okay to take off sling for elbow range of motion and pendulum exercises 2-3 times daily. No range of motion of the operative shoulder. [facility]ero outpatient physical therapy after the 2-week follow-up at [facility] [place]. I did have a discussion with the patient about postoperative recovery with therapy. I did explain to her the importance for her to maintain appropriate progression of the reverse total shoulder protocol. Also stated the importance of her getting back her range of motion and strength. We discussed the protocol in detail today. Patient was also wanting to change her UltraSling and come out early. I explained to her that we are following Dr. Dejan Ferrara protocol and I do not recommendher changing the UltraSling. Care management team also offered to schedule her for her physical therapy and patient refused. She would like to schedule this appointment herself. I advised her of the importance for appropriate recovery that she is undergoing therapy for this shoulder replacement. 5. H & H: 10.0/28.5, asymptomatic. Postoperative drop in hemoglobin from surgery without intraoperative complications. On preoperative visit it was found patient already with anemia and low hemoglobin at 11.9. She was established on our anemia protocol. She will continue with these medications and we will have her follow-up in 2 weeks with her PCP with repeat labs and continued management. Care management team offered to schedule appointment with primary care provider and patient refused and would like to make this herself. I would defer to the primary care provider for further managementand treatment of her anemia. 6. Patient will continue with doxycycline for 2 weeks postoperatively. Microbiology results were reviewed and there is currently been no growth and no organisms seen on Gram stain and cultures. We are awaiting results for cultures prior to discharge. I discussed with the patient potential side effects with the doxycycline including hypersensitivity to the sunlight and must take appropriate precautions. Also recommended probiotic while taking the antibiotic for 2 weeks postoperatively. Patient voiced understanding and agreement. 7. Encouraged incentive spirometry 8. Continue postoperative medical management per medicine: Case was discussed with medicine and appreciate recommendations from blood pressure 9. Postoperative constipation: Patient has had a bowel movement and can discontinue the stool softener at this time. She states she has milk of magnesia at home if needed. 10. Disposition: Patient is ready for discharge home today. She is medically stable. Patient would like her prescriptions E scribed to [facility]. We discussed her pain management regimen in great detail. She voiced understanding agreement with above plan. She will continue with the meloxicam and advised not to take any other nonsteroidal anti-inflammatories with this. She will continue with the baby aspirin 81 mg twice daily for 2 weeks following surgery for DVT prophylaxis. Patient will be given Zofran to take as needed for nausea. Continue with the EVAN hose for 2 weeks postoperatively. She can take these off at nighttime but we would like those back on during the day. Patient refused to have the care management team schedule appointments with her primary care physician and physical therapy. I advised the importance of her making these appointments and she should do this sooner than later. She voiced understanding. I explained the importance of the therapy so that shecan have appropriate recovery undergoing 3 previous surgeries on the shoulder. We discussed compliance with the sling as well. Patient has postoperative 2-week follow-up scheduled on September 27, 2024. Upon discharge she will contact our office with any concerns or questions. I have reviewed the [place] Automated Rx Reporting System (OARRS) report for this patient for refill pattern and other prescriber involvement as part of the appropriate surveillance for the provision ofacute and chronic controlled medications. The report was requested and reviewed on the date of thisentr, and was considered in the prescribing process This dictation was created using voice recognition software. Phonetic and/or grammatical errors mayexist. Digitally Signed by TJ LAST PA-C on 09/15/2024 12:[address] [facility]05-14-2025 Pastoral care Progress note Pastoral Care Note Entered On: 09/14/2024 9:58 EDT Performed On: 09/14/2024 9:[address] Pastoral Care Type of Pastoral Visit : Initial visit Spiritual Care Visit Initiated by : Route Sales Representative Spiritual Care Reason for Visit : General Spiritual Assessment : Spiritual, not Gnosticism, Grateful/Thankful, Positive Image of God Spiritual Care Emotional Assessment : Happy, Accepting of Situation Spiritual Care Intervention : Active listening, Words of Encouragement, Explore Spiritual Needs, Explore Emotional Needs, Prayer with Patient/Family Spiritual Outcomes : Focusing More on Positives, Embraces Present Moment Spiritual Plan of Care : No Further Action Pastoral Care Comments : patient reports on being thankful for the good care and good food; pt is thankful for getting this surgery done here as oppossed to having to wait; pt has no concerns but welcomes prayer for support Pastoral Care Visit Length : 15 minute(s) Tj Lane - 09/14/2024 9:55 EDT Digitally Signed by Tj Lane on 09/14/2024 09:[address] [facility]05-14-2025 Note Date of Service September 14, 2024 Subjective The patient was sitting in bed upon examination. Patient denies any chest pain, shortness of breath, dizziness, lightheadedness, nausea or vomiting, or calf pain. No adverse overnight events. Pain has been controlled on medications. Patient does have pain and soreness in her right shoulder. She is a patient of local pain management provider Dr. Gastelum. Patient has been on chronic pain medications. We did reach out to pain management and they would like orthopedics to establish the pain medication postoperatively and they will take over for any refills and continued management. Preoperativelypatient has also been following our anemia protocol. She has been using iron and folic acid. Patient was already asking about changing her sling to one that she bought online. She also states that she is unsure if physical therapy will be covered by her insurance postoperatively. Objective Vitals and Measurements T: 36.8 C (Oral) TMIN: 35.5 C TMAX: 36.8 C (Oral) HR: 66 (Monitored) RR: 18 BP: 96/66 SpO2: 95% HT:147.3 cm WT: 43.2 kg BMI: 19.91 Intake and Output 7AM Yesterday to 7AM Today Intake and Output (Last 24 hours) Intake Administration Information 1105.40 Output Intra-Op Urine 200.00 Intra-Op EBL 250.00 Urine Count 4.00 Total Summary Total Intake 1105.40 Total Output 450.00 Fluid Balance 655.40 Physical Exam Patient has had low blood pressure readings overnight, afebrile Dressing is clean dry and intact UltraSling fitting appropriately Sensation is intact to axillary, radial, median, and ulnar distribution Motor intact with patient able to make okay sign, cross fingers, and thumbs up Weight Dosing Weight: 43.2 kg (09/13/24) Dosing Weight: 43.2 kg (09/13/24) Medications Medications (22) Active Scheduled: (11) acetaminophen 500 mg Tablet 1,000 mg 2 tab(s), Oral, q6hr aspirin 81 mg EC 81 mg 1 tab(s), Oral, BID docusate sodium 100 mg Capsule 100 mg 1 cap(s), Oral, BID docusate-senna (Senokot S) 50 mg-8.6 mg Tablet 2 tab(s), Oral, BID doxycycline hyclate 100 mg Capsule 100 mg 1 cap(s), Oral, q12h famotidine 20 mg tablet 20 mg 1 tab(s), Oral, qDay levothyroxine 50 mcg tablet 25 mcg 0.5 tab(s), Oral, Thu//Thu//Thu/Thu levothyroxine 50 mcg tablet 50 mcg 1 tab(s), Oral, Thursday magnesium hydroxide 8% Suspension 30 mL UD 30 mL, Oral, Daily meloxicam 7.5 mg tablet 7.5 mg 1 tab(s), Oral, BIDM ondansetron 2 mg/ 1 mL 2 mL INJ 4 mg 2 mL, IV Push, q8h Continuous: (2) Lactated Ringers 1,000 mL 1,000 mL, Intravenous, 100 mL/hr Lactated Ringers 1000 mL 1,000 mL, Intravenous, 20 mL/hr PRN: (9) acetaminophen 325 mg Tablet 650 mg 2 tab(s), Oral, q4h diphenhydramine 25 mg tablet 25 mg 1 tab(s), Oral, q6h diphenhyDRAMINE 50 mg/mL (1 mL) INJ 25 mg 0.5 mL, IV Push, q6h ketorolac 30 mg/mL (1 mL) vial 15 mg 0.5 mL, IV Push, q6h ondansetron 2 mg/ 1 mL 2 mL INJ 4 mg 2 mL, IV Push, q8h oxycodone 5 mg tablet (immediate release) 5 mg 1 tab(s), Oral, q4h oxycodone 5 mg tablet (immediate release) 10 mg 2 tab(s), Oral, q4h prochlorperazine 10 mg/2 mL vial 5 mg 1 mL, IV Push, q6h sodium biphosphate-sodium phosphate 19 gm-7 gm Enema 133 mL, Rectal, qDay Lab Results 09/14 05:11 WBC: 8.6 Hgb: 9.1 L Hct: 26.5 L Platelet: 139 L Neutrophil %: 76.3 H Glucose Level: 99 Sodium Level: 135 L Potassium Level: 4.2 BUN: 23 H Creatinine Lvl (s): 0.90 EKG No qualifying data available. Assessment/Plan 1. Status post right shoulder revision reverse total shoulder arthroplasty with removal antibiotic spacer postop day #1 2. Continue pain medications: Tylenol, meloxicam, and oxycodone. Do not take any other nonsteroidalanti-inflammatories while on meloxicam/Mobic. We also reached out the patient's pain management provider for postoperative management. They would like Dr. Dejan Ferrara to establish the pain medication and upon discharge they will take over with management. I did advise patient that she is on the ox ycodone and she should not combine this with the hydrocodone/acetaminophen that she has been using in the past. She did voiced understanding. 3. DVT prophylaxis: Take 81 mg aspirin twice daily with food for 2 weeks postoperatively for DVT prophylaxis. Patient denies past history of DVT or pulmonary embolism. 4. Physical therapy: Continue with UltraSling at all times. Okay to take off sling for elbow range of motion and pendulum exercises 2-3 times daily. No range of motion of the operative shoulder. Homero outpatient physical therapy after the 2-week follow-up at [facility] [place]. I did have a discussion with the patient about postoperative recovery with therapy. I did explain to her the importance for her to maintain appropriate progression of the reverse total shoulder protocol. Also stated the importance of her getting back her range of motion and strength. We discussed the protocol in detail today. Patient was also wanting to change her UltraSling and come out early. I explained to her that we are following Dr. Dejan Ferrara protocol and I do not recommendher changing the UltraSling. 5. H & H: 9.05/29.5, asymptomatic. Postoperative drop in hemoglobin from surgery without intraoperative complications. On preoperative visit it was found patient already with anemia and low hemoglobin at 11.9. She was established on our anemia protocol. She will continue with these medications and we will have her follow-up in 2 weeks with her PCP with repeat labs and continued management. 6. Patient will continue with doxycycline for 2 weeks postoperatively. Microbiology results were reviewed and there is currently been no growth and no organisms seen on Gram stain. We are awaiting results for cultures prior to discharge. I discussed with the patient potential side effects with the d oxycycline including hypersensitivity to the sunlight and must take appropriate precautions. Also recommended probiotic while taking the antibiotic for 2 weeks postoperatively. Patient voiced understanding and agreement. 7. Encouraged incentive spirometry 8. Continue postoperative medical management per medicine: Case was discussed with medicine and appreciate recommendations from blood pressure 9. Postoperative constipation: Discussed with the patient to continue stool softener until first bowel movement. After first bowel movement patient can then take as needed. They were also instructed that if they are not able to have a bowel movement within 3 days they are to contact our office for change of medication. Patient voiced understanding. 10. Disposition: Patient is not ready for discharge home as we are awaiting cultures with her microbiology so that we can send her home on appropriate antibiotics. She will continue above pain medications as discussed. Continue with physical therapy exercises while in the hospital. I recommend she get up and walk. We will have patient follow-up with her primary care provider in 2 weeks with repeat labs and continued management and treatment of her ongoing anemia. Case was discussed with care management team. As long as patient is stable and cultures are negative plan will be for possible discharge home tomorrow. Upon discharge from the hospital patient's pain management will take over with any refills or changes and pain management regimen. She did voiced understanding. I have reviewed the [place] Automated Rx Reporting System (OARRS) report for this patient for refill pattern and other prescriber involvement as part of the appropriate surveillance for the provision ofacute and chronic controlled medications. The report was requested and reviewed on the date of thisentry, and was considered in the prescribing process This dictation was created using voice recognition software. Phonetic and/or grammatical errors mayexist. Digitally Signed by TJ LAST PA-C on 09/14/2024 08:[address] [facility]05-13-2025 Note* Exam Date Time Procedure Performing Provider Status 09/13/24 2:53 PM US Anesthesia Block Auth (Verified) [id number] ORIGINAL Images acquired, not reported on this accession number. [facility]05-13-2025 Note* Exam Date Time Procedure Performing Provider Status 09/13/24 1:15 PM XR Shoulder Minimum 2 Views Right CLOVIS CHOUDHURY MD; Auth (Verified) [id number] ORIGINAL EXAMINATION: TWO XRAY VIEWS OF THE RIGHT SHOULDER 09/13/2024 1:15 pm COMPARISON: CT dated 08/26/2024 HISTORY: ORDERING SYSTEM PROVIDED HISTORY: Reason for Exam: Status Post Arthroplasty FINDINGS: Cervical ACDF and posterior cervical fusion. Partially visualized lung zones demonstrate asymmetric elevation of the right hemidiaphragm with likely right basilar atelectasis. Widening of the right AC joint similar to prior. There is been interval removal of antibiotic impregnated spacer with placement of reverse right shoulder arthroplasty. There are immediate postoperative changes present including swelling, subcutaneous gas. Hardware is anatomic Makenzie aligned. No evidence of fracture. IMPRESSION: Interval removal of antibiotic impregnated spacer with placement of reverse right shoulder arthroplasty with expected immediate postoperative changes present. Interpreted by: Clovis Anderson Preliminary Report By: Clovis Anderson Electronically signed By Clovis Anderson Dictated Date: 09/13/2024 1:24:55 PM Prelim Date: 09/13/2024 1:26:42 PM Sign Date: 09/13/2024 1:26:42 PM Ordering Provider: DEJAN FERRARA [facility]05-13-2025 Anesthesiology Consult note Patient: YARA LOYA Age: 73 years Sex: Female : 1950 Associated Diagnoses: None Author: STEPHEN CALLAHAN FURNITURE PAINTER-SCENE AND LIGHTING DESIGN LECTURER Assessment Postanesthesia assessment Vitals: Vital signs from flowsheet : Vital Signs 09/13/2024 13:00 EDT Heart Rate Monitored 83 bpm bpm Respiratory Rate - Anes 12 br/min br/min 09/13/2024 12:55 EDT Heart Rate Monitored 86 bpm bpm Respiratory Rate - Anes 13 br/min br/min Systolic Blood Pressure Non-Invasive 83 mmHg mmHg Diastolic Blood Pressure Non-Invasive 57 mmHg mmHg 09/13/2024 12:50 EDT Heart Rate Monitored 79 bpm bpm Respiratory Rate - Anes 15 br/min br/min Systolic Blood Pressure Non-Invasive 80 mmHg mmHg Diastolic Blood Pressure Non-Invasive 55 mmHg mmHg 09/13/2024 12:45 EDT Temperature (Route Not Specified) 36 DegC DegC Heart Rate Monitored 75 bpm bpm Respiratory Rate - Anes 15 br/min br/min Systolic Blood Pressure Non-Invasive 90 mmHg mmHg Diastolic Blood Pressure Non-Invasive 55 mmHg mmHg 09/13/2024 12:40 EDT Heart Rate Monitored 79 bpm bpm Respiratory Rate - Anes 17 br/min br/min Systolic Blood Pressure Non-Invasive 124 mmHg mmHg Diastolic Blood Pressure Non-Invasive 68 mmHg mmHg 09/13/2024 12:35 EDT Heart Rate Monitored 73 bpm bpm Respiratory Rate - Anes 15 br/min br/min Systolic Blood Pressure Non-Invasive 111 mmHg mmHg Diastolic Blood Pressure Non-Invasive 58 mmHg mmHg 09/13/2024 12:30 EDT Temperature (Route Not Specified) 36 DegC DegC Heart Rate Monitored 85 bpm bpm Respiratory Rate - Anes 20 br/min br/min Systolic Blood Pressure Non-Invasive 136 mmHg mmHg Diastolic Blood Pressure Non-Invasive 66 mmHg mmHg 09/13/2024 12:25 EDT Heart Rate Monitored 71 bpm bpm Respiratory Rate - Anes 10 br/min br/min Systolic Blood Pressure Non-Invasive 111 mmHg mmHg Diastolic Blood Pressure Non-Invasive 64 mmHg mmHg 09/13/2024 12:20 EDT Heart Rate Monitored 72 bpm bpm Respiratory Rate - Anes 10 br/min br/min Systolic Blood Pressure Non-Invasive 106 mmHg mmHg Diastolic Blood Pressure Non-Invasive 66 mmHg mmHg 09/13/2024 12:15 EDT Temperature (Route Not Specified) 36 DegC DegC Heart Rate Monitored 70 bpm bpm Respiratory Rate - Anes 10 br/min br/min Systolic Blood Pressure Non-Invasive 98 mmHg mmHg Diastolic Blood Pressure Non-Invasive 66 mmHg mmHg 09/13/2024 12:10 EDT Heart Rate Monitored 69 bpm bpm Respiratory Rate - Anes 10 br/min br/min Systolic Blood Pressure Non-Invasive 97 mmHg mmHg Diastolic Blood Pressure Non-Invasive 62 mmHg mmHg 09/13/2024 12:05 EDT Heart Rate Monitored 70 bpm bpm Respiratory Rate - Anes 19 br/min br/min Systolic Blood Pressure Non-Invasive 95 mmHg mmHg Diastolic Blood Pressure Non-Invasive 61 mmHg mmHg 09/13/2024 12:00 EDT Temperature (Route Not Specified) 36 DegC DegC Heart Rate Monitored 69 bpm bpm Respiratory Rate - Anes 10 br/min br/min Systolic Blood Pressure Non-Invasive 95 mmHg mmHg Diastolic Blood Pressure Non-Invasive 61 mmHg mmHg 09/13/2024 11:55 EDT Heart Rate Monitored 69 bpm bpm Respiratory Rate - Anes 10 br/min br/min Systolic Blood Pressure Non-Invasive 99 mmHg mmHg Diastolic Blood Pressure Non-Invasive 60 mmHg mmHg 09/13/2024 11:50 EDT Heart Rate Monitored 70 bpm bpm Respiratory Rate - Anes 10 br/min br/min Systolic Blood Pressure Non-Invasive 107 mmHg mmHg Diastolic Blood Pressure Non-Invasive 61 mmHg mmHg 09/13/2024 11:45 EDT Temperature (Route Not Specified) 36 DegC DegC Heart Rate Monitored 73 bpm bpm Respiratory Rate - Anes 10 br/min br/min Systolic Blood Pressure Non-Invasive 98 mmHg mmHg Diastolic Blood Pressure Non-Invasive 60 mmHg mmHg 09/13/2024 11:40 EDT Heart Rate Monitored 70 bpm bpm Respiratory Rate - Anes 10 br/min br/min Systolic Blood Pressure Non-Invasive 103 mmHg mmHg Diastolic Blood Pressure Non-Invasive 62 mmHg mmHg 09/13/2024 11:35 EDT Heart Rate Monitored 70 bpm bpm Respiratory Rate - Anes 10 br/min br/min Systolic Blood Pressure Non-Invasive 116 mmHg mmHg Diastolic Blood Pressure Non-Invasive 68 mmHg mmHg 09/13/2024 11:30 EDT Temperature (Route Not Specified) 36 DegC DegC Heart Rate Monitored 65 bpm bpm Respiratory Rate - Anes 10 br/min br/min Systolic Blood Pressure Non-Invasive 112 mmHg mmHg Diastolic Blood Pressure Non-Invasive 63 mmHg mmHg 09/13/2024 11:25 EDT Heart Rate Monitored 81 bpm bpm Respiratory Rate - Anes 10 br/min br/min Systolic Blood Pressure Non-Invasive 83 mmHg mmHg Diastolic Blood Pressure Non-Invasive 50 mmHg mmHg 09/13/2024 11:20 EDT Heart Rate Monitored 70 bpm bpm Respiratory Rate - Anes 10 br/min br/min Systolic Blood Pressure Non-Invasive 81 mmHg mmHg Diastolic Blood Pressure Non-Invasive 52 mmHg mmHg 09/13/2024 11:15 EDT Temperature (Route Not Specified) 35.5 DegC DegC Heart Rate Monitored 71 bpm bpm Respiratory Rate - Anes 10 br/min br/min Systolic Blood Pressure Non-Invasive 95 mmHg mmHg Diastolic Blood Pressure Non-Invasive 54 mmHg mmHg 09/13/2024 11:10 EDT Heart Rate Monitored 75 bpm bpm Respiratory Rate - Anes 10 br/min br/min Systolic Blood Pressure Non-Invasive 82 mmHg mmHg Diastolic Blood Pressure Non-Invasive 57 mmHg mmHg 09/13/2024 11:05 EDT Heart Rate Monitored 88 bpm bpm Respiratory Rate - Anes 19 br/min br/min Systolic Blood Pressure Non-Invasive 149 mmHg mmHg Diastolic Blood Pressure Non-Invasive 73 mmHg mmHg 09/13/2024 11:00 EDT Temperature (Route Not Specified) 35.5 DegC DegC Heart Rate Monitored 60 bpm bpm Respiratory Rate - Anes 10 br/min br/min Systolic Blood Pressure Non-Invasive 74 mmHg mmHg Diastolic Blood Pressure Non-Invasive 55 mmHg mmHg 09/13/2024 10:55 EDT Heart Rate Monitored 65 bpm bpm Respiratory Rate - Anes 10 br/min br/min Systolic Blood Pressure Non-Invasive 73 mmHg mmHg Diastolic Blood Pressure Non-Invasive 48 mmHg mmHg 09/13/2024 10:50 EDT Heart Rate Monitored 62 bpm bpm Respiratory Rate - Anes 8 br/min br/min Systolic Blood Pressure Non-Invasive 91 mmHg mmHg Diastolic Blood Pressure Non-Invasive 56 mmHg mmHg 09/13/2024 10:46 EDT Systolic Blood Pressure Non-Invasive 78 mmHg mmHg Diastolic Blood Pressure Non-Invasive 51 mmHg mmHg 09/13/2024 10:45 EDT Temperature (Route Not Specified) 35.5 DegC DegC Heart Rate Monitored 71 bpm bpm Respiratory Rate - Anes 8 br/min br/min 09/13/2024 10:40 EDT Heart Rate Monitored 84 bpm bpm Respiratory Rate - Anes 4 br/min br/min Systolic Blood Pressure Non-Invasive 98 mmHg mmHg Diastolic Blood Pressure Non-Invasive 64 mmHg mmHg 09/13/2024 10:38 EDT Systolic Blood Pressure Non-Invasive 73 mmHg mmHg Diastolic Blood Pressure Non-Invasive 52 mmHg mmHg 09/13/2024 10:35 EDT Heart Rate Monitored 72 bpm bpm Respiratory Rate - Anes 0 br/min br/min Systolic Blood Pressure Non-Invasive 114 mmHg mmHg Diastolic Blood Pressure Non-Invasive 67 mmHg mmHg 09/13/2024 10:32 EDT Systolic Blood Pressure Non-Invasive 109 mmHg mmHg Diastolic Blood Pressure Non-Invasive 77 mmHg mmHg 09/13/2024 8:41 EDT Temperature Temporal Artery 36.7 DegC Apical Heart Rate 84 bpm Respiratory Rate 12 br/min LOW Systolic Blood Pressure Non-Invasive 132 mmHg Diastolic Blood Pressure Non-Invasive 69 mmHg , Measurements from flowsheet . Mental status: alert & oriented x 4. Respiratory function: respirations are non-labored. Respiratory support: oxygen delivery method via nasal cannula. CV function: Normal rate. Cardiovascular support: none. Pain. Nausea status: see nursing documentation of medications. Postoperative hydration status: within normal limits. Digitally Signed by STEPHEN CALLAHAN on 09/13/2024 01:[address] [facility]05-13-2025 Anesthesiology Consult note Patient: YARA LOYA Age: 73 years Sex: Female : 1950 Associated Diagnoses: None Author: RAMAN MCCLURE Preoperative Information Anesthesia history Patient's history: negative. Family's history: negative. Health Status Allergies: Allergic Reactions (Selected) Severity Not Documented Seasonal enviromental- Typical., Allergies (1) ActiveSeverityReaction seasonal enviromentaltypical Current medications: (Selected) Inpatient Medications Ordered Decadron: 10 mg, 1 mL, IV Push, AsDirected LR 1000 mL: 20 mL/hr, Intravenous, Stop: 09/14/24 17:59:00 EDT ceFAZolin: 2 gram(s), 200 mL/hr, IV Piggyback, PREOP pharm tranexamic acid 1 g / 100 mL 0.7% NaCl PMX: 1 gram(s), 100 mL, 300 mL/hr, IV Piggyback, AsDirected tranexamic acid 1 g / 100 mL 0.7% NaCl PMX: 1 gram(s), 100 mL, 300 mL/hr, IV Piggyback, AsDirected Documented Medications Documented Vitamin B12 500 mcg oral tablet: 500 mcg, 1 tab(s), Oral, qDay, 30 tab(s), 0 Refill(s) acetaminophen-oxycodone 325 mg-7.5 mg oral tablet: 1 tab(s), Oral, q6hr, Dr. Christianson, 0 Refill(s) herbal/nutritional product: COLLAGEN 1 SCOOP DAILY, 0 Refill(s) levothyroxine 25 mcg (0.025 mg) oral tablet: TAKE 1 (one) tablet daily except 2 tabs on Sundays, Medications (5) Active Scheduled: (4) ceFAZolin 2 gram(s), IV Piggyback, PREOP pharm dexamethasone 10 mg/mL (1mL) SDV 10 mg 1 mL, IV Push, AsDirected tranexamic acid PMX 1 gram(s) 100 mL, IV Piggyback, AsDirected tranexamic acid PMX 1 gram(s) 100 mL, IV Piggyback, AsDirected Continuous: (1) Lactated Ringers 1000 mL 1,000 mL, Intravenous, 20 mL/hr PRN: (0) Problem list: Medical Irritable bowel syndrome with constipation / SNOMED CT 5640006569 / Confirmed Neuropathy / SNOMED CT 7664150715 / Confirmed, Active Problems (6) Fibromyalgia Hypothyroidism Irritable bowel syndrome with constipation Neuropathy Osteoarthritis Osteoporosis Histories Past Medical History: No active or resolved past medical history items have been selected or recorded. Family History: Hypertension Mother Father Son Stroke Father Procedure history: Electrocardiogram ([id number]) on 11/28/2021 at 71 Years. Comments: 01/03/2022 14:00 EDT - Saima Finch LPN nonspecific T wave abnormality Colonoscopy ([id number]). Total shoulder replacement ([id number]). Comments: 01/02/2020 15:28 EDT - GREGORIA Hudsoncia LEFT Spinal fusion ([id number]). Comments: 01/02/2020 15:28 EDT - GREGORIA Hudson Laura CERVICAL AND LUMBAR Total hip replacement ([id number]). Comments: 08/26/2024 8:19 EDT - Lennie Schulz RN BILATERAL Social History: Social & Psychosocial Habits Alcohol 09/13/2024 Use: Never Substance Abuse 09/13/2024 Use: Never Tobacco 09/13/2024 Tobacco Use: Former smoker, quit more Type: Cigarettes Number of years: 40 Stopped at age: 62 Years Home/Environment 09/13/2024 Domestic Concerns None Living situation: Home/Independent Primary Pediatric Dental Hygienist: Self Lives In 1st floor bathroom, 1st floor bedroom, Single level home Current Home Treatments None Special Services and Community Resources None Spouse Name N/A Guardian(s) Information: self Marital Status of Patient if Patient Independent Adult: Unmarried Nutrition/Health 09/13/2024 Type of diet: Regular Appetite Good Eating Difficulties None Caffeine intake amount: Very little Physical Examination Vital Signs 09/13/2024 8:41 EDT Temperature Temporal Artery 36.7 DegC Apical Heart Rate 84 bpm Respiratory Rate 12 br/min LOW Systolic Blood Pressure Non-Invasive 132 mmHg Diastolic Blood Pressure Non-Invasive 69 mmHg Vital Signs (last 24 hrs) Last Charted Temp [id number] DegC (SEPTEMBER 13 08:41) Heart Rate Hucqux45 bpm (SEPTEMBER 13 08:41) [id number] mmHg (SEPTEMBER 13 08:41) DBP69 mmHg (SEPTEMBER 13 08:41) Measurements from flowsheet : Measurements 09/13/2024 8:41 EDT Height 147.3 cm Admission Weight 43.2 kg [place] Body Weight 40.88 kg Admission Body Mass Index 19.91 m2 Pain assessment: Pain Assessment 09/13/2024 9:09 EDT Primary Pain Intensity 9 09/13/2024 8:41 EDT Primary Pain Location Shoulder Primary Pain Laterality Right Primary Pain Intensity 9 Pain Scale Type 0-10 Pain scale . General: Alert and oriented, Mild distress. Airway: Normal temporomandibular joint mobility. Mallampati classification: II (soft palate, fauces, uvula visible). Dentition Evaluation: Dentures, lower, Dentures, upper. Respiratory: Lungs are clear to auscultation, Respirations are non-labored. Cardiovascular: Normal rate, Regular rhythm. Neurologic: Alert, Oriented. Review / Management Results review: No qualifying data available , Lab results 09/13/2024 10:22 EDT SN - CAt - Case Attendee SN - CAt - Case Attendee 09/13/2024 9:53 EDT SN - CAt - Case Attendee SN - CAt - Case Attendee SN - CAt - Case Attendee SN - CAt - Case Attendee SN - CAt - Case Attendee SN - CAt - Case Attendee SN - CAt - Case Attendee SN - CAt - Case Attendee SN - CAt - Case Attendee SN - CAt - Case Attendee SN - CAt - Case Attendee SN - CAt - Case Attendee SN - CAt - Role Performed Primary Surgeon SN - CAt - Role Performed SCENE AND LIGHTING DESIGN LECTURER SN - CAt - Role Performed Associate Creative Director 1 SN - CAt - Role Performed Scrub 1 SN - CAt - Role Performed Cross Country/Track And Field Coach 1 SN - CAt - Role Performed Envelope Fold Operator SN - CAt - Role Performed Physician Fire Code Inspector 09/13/2024 9:51 EDT Time Out Procedure Site Verified Yes Time Out Procedure Site Marked Yes Time Out Correct Patient Position Yes Consent Form Signed Yes Bedside Procedure Nerve Block Provider #1 Bedside Time Out Rylee Fulton RN Provider #2 Bedside Time Out RAMAN MCCLURE APRN-SCENE AND LIGHTING DESIGN LECTURER NPO Status Maintained Patient ID Band on and Verified Yes Anesthesia Consent Signed Yes Blood Consent Signed Yes 09/13/2024 9:16 EDT citric acid-sodium citrate Not Done: Other (Not Done) 09/13/2024 9:15 EDT SN - Preop - CTm Pt in SDS Room 09/13/2024 8:38 SN - Preop - CTm Pt Ready for OR/Proced 09/13/2024 9:15 09/13/2024 9:09 EDT Primary Pain Intensity 9 celecoxib 400 mg mg oxyCODONE 10 mg mg 09/13/2024 9:08 EDT famotidine 20 mg mg vancomycin 750 mg mg Lactated Ringers Injection 1,000 mL mL Sodium Chloride 0.9% 250 mL mL 09/13/2024 9:06 EDT Continuous IV Infusions LR Antecubital Left 09/13/2024 20 gauge Peripheral IV Activity: Insert new site Peripheral IV Dressing Condition: Clean, Dry, Intact Peripheral IV Dressing Activity: Applied, Changed, Reinforced Peripheral IV Line Status/Patency: Continuous infusion Peripheral IV Line Care: Secured with tape Peripheral IV Site Condition: No complications Peripheral IV Site Care: Direct pressure applied Peripheral IV Equipment: Extension set, PRN Adaptor Peripheral IV Number of Attempts: 2 09/13/2024 8:57 EDT ABO/Rh Interp O POS ABSC Interp (Gel) Negative ABSC 09/13/2024 8:54 EDT Designated Person #1 [employer] May Share MELANIE LOPEZ [phone] (HOME) [phone] (CELL) Designated Person #1 Relationship Son Designated Person #2 [employer] MELANIE FERRARI [phone] Designated Person #2 Relationship Daughter Privacy Restrictions Requested None Status N/A Sensory Deficits None Sleep Apnea Snore No Sleep Apnea Tired Yes Sleep Apnea Obstruction No Sleep Apnea Pressure No Sleep Apnea BMI No Sleep Apnea Age Yes Sleep Apnea Neck No Sleep Apnea Gender No Sleep Apnea Score 2 Diagnosed With Sleep Apnea No Advanced Directives Yes Advance Directive Type [place] Declaration (Living Will) Advance Directive Location Unable to obtain copy Infectious Disease Symptoms Patient states no symptoms Infectious Disease Recent Exposure No Alcohol and Drug Use No Employee of Institutional Living No Health Care Employee No History of Exposure to TB No History of Positive Chest X-Ray for TB No History of Positive TB Skin Test No Homeless No Known Immunosuppression No Recent Immigrant No Resident of Institutional Living No Bloody Sputum No Fatigue No Fever No Loss of Appetite No Night Sweats No Persistent Cough > 3 Weeks No Weight Loss No Pre-Op Patient Education NPO after midnight, No makeup, No jewelry, Responsible [employer] Party, Aware of surgery location, Pre-op education done, 1 bottle CHG wash with instructions given, Instructed to take ordered medications, Total Joint Replacement/Colorectal Book Given, SSI prevention handout given, Anesthesia block education provided SN - Preprocedure Comments Spoke with patient, Verbalizes/Nonverbally indicates understanding, Other: levothyroxine Anesthesia Evaluation Date/Time 08/26/2024 9:03 Anesthesia Evaluation Performed By LUCY CARRINGTON FURNITURE PAINTER-SCENE AND LIGHTING DESIGN LECTURER Anesthesia Evaluation Result Approved Individuals Taught Patient, Daughter Learning Readiness Willing to learn Barriers to Learning None evident Teaching Method Explanation Preferred Spoken Language Colombian Preferred Written Language Colombian Teaching Evaluation Needs further teaching Total Joint Book Given Yes Safety Brochure Information Reviewed Unable to complete Jalil Recio Video Viewed No Patient's Current Physicians Patient's Current Physicians History of Malignant Hyperthermia No Discharge To, Anticipated Home independently Prev Test Positive/Diagnosis w/COVID-19 Yes Previous COVID-19 Positive Date 2022 Current Quarantine/Isolated any Illness No Any Contact with Sick Animals/Birds No Traveled Anywhere in Last 30 Days No Lost Weight Unintentionally Recently No Eat Poorly Due to Decreased Appetite No Total MST Score 0 N/A Personal Devices, Patient Valuables Dentures, lower, Dentures, upper, Glasses Anesthesia/Transfusions Prior anesthesia Admission Note-Nursing Same Day Patient History 09/13/2024 8:41 EDT Height 147.3 cm Admission Weight 43.2 kg [place] Body Weight 40.88 kg Admission Body Mass Index 19.91 m2 Temperature Temporal Artery 36.7 DegC Apical Heart Rate 84 bpm Respiratory Rate 12 br/min LOW Systolic Blood Pressure Non-Invasive 132 mmHg Diastolic Blood Pressure Non-Invasive 69 mmHg Primary Pain Location Shoulder Primary Pain Laterality Right Primary Pain Intensity 9 Pain Scale Type 0-10 Pain scale Heart Sounds ICU S1S2 Heart Rhythm Regular Radial Pulse, Left 2+ Normal Radial Pulse, Right 2+ Normal Respirations Unlabored All Lobes Breath Sounds Clear Oxygen Therapy Room air Oxygen Saturation 99 % Bowel Sounds All Quadrants Present Skin Description Winter, Dry Skin Temperature Warm Skin Integrity Intact Mucous Membrane Color Winter Characteristics of Speech Clear Level of Consciousness Alert Strength All Extremities Strong Affect/Behavior Appropriate, Calm, Cooperative Orientation Oriented x 4 Patient Identified Identification band, Verbal Arrival Mode Ambulatory Dong Motor (2) Moves 4 extremities voluntarily or on command Dong Respirations (2) Spontaneous respiration without support, RR > 10 Dong Blood Pressure (2) BP 20% above or below preanesthetic level Dong Pulse (2) Pulse 20% above or below preanesthetic level Dong Oxygen Saturation (2) 94% or more Dong Level of Consciousness (2) Fully awake Dong III Score 12 Assistive Device None Activity Status ADL Awake Sequential Compression Device bilateral knee high applied/on Antiembolism Stocking On/Re-applied bilateral thigh high Standard Safety Allergy Band on, Call device within reach, Bed in low position, Wheels locked, Non-Slip footwear 09/13/2024 8:38 EDT IV Present Present Anesthesia Extension Set Applied Yes Timing Machine Operator On Yes Consent Form Signed Yes Patient Dressed In Hospital gown Pre-op Preparation Dentures, upper removed, Undergarments removed CHG Preoperative Wash/Wipe Night before procedure, Day of procedure Preop Nasal Swab Povidone-Iodine History & Physical Update On Chart Yes History & Physical On Chart Yes Belongings At Bedside Dentures, upper, Pants, Shirt, Socks, Undergarments Personal Home Medications Received No home medications were brought in Belongings to Security/Secured in Dept None NPO Status Maintained Patient ID Band on and Verified Yes Implants Verified Yes Pacemaker/AICD Verified Yes Site Verified by Patient/Family Yes Anesthesia Consent Signed Yes Blood Consent Signed Yes Last Fluid Intake 09/12/2024 23:00 Last Food Intake 09/12/2024 21:00 . Assessment and Plan [place] Society of Anesthesiologists (ASA) physical status classification: Class III. Anesthetic Preoperative Plan Anesthetic technique: General. Maintenance airway: Oral endotracheal tube. Postoperative pain management: Per surgeon, interscalene block. Risks discussed: nausea, vomiting, sore throat, hypotension, allergic reaction, serious complications. Informed consent: signed by patient. Digitally Signed by RAMAN MCCLURE on 09/13/2024 10:[address] [facility]04-25-2025 Note* Exam Date Time Procedure Performing Provider Status 08/26/24 9:[address] Shoulder w/o Contrast Right CLOVIS ANDERSON MD; Auth (Verified) [id number] ORIGINAL EXAMINATION: CT OF THE RIGHT SHOULDER WITHOUT CONTRAST 08/26/2024 9:24 am TECHNIQUE: CT of the right shoulder was performed without the administration of intravenous contrast. Multiplanar reformatted images are provided for review. Automated exposure control, iterative reconstruction, and/or weight based adjustment of the mA/kV was utilized to reduce the radiation dose to as low as reasonably achievable. COMPARISON: None. HISTORY ORDERING SYSTEM PROVIDED HISTORY: Reason for Exam: Pain due to internal orthopedic prosthetic devices, implants and grafts, subsequent encounter FINDINGS: Bones: There are changes related to prior shoulder arthroplasty removal with an antibiotic impregnated humeral spacer present. There are changes of bony remodeling from prior prosthesis. There is some bony remodeling versus age indeterminate fracture deformity of the lesser tuberosity/proximal humeral neck (series 6, image 25, series 400, image 76). The AC joint is widened, may reflect sequela of remote injury. There is subacromial spurring. No suspicious osseous lesions. Partially visualized cervical ACDF and posterior cervicothoracic spinal fusion. Soft Tissue: Small amount of joint fluid. Some subcoracoid fluid with intra-articular debris in the inferior axillary pouch on series 400, image 55. Difficult to evaluate the biceps tendon. Generalized rotator cuff muscle atrophy that is most severe involving the subscapularis muscle belly. Partially visualized lung zone demonstrates emphysema. 2 mm right apical solid noncalcified nodule on series 6, image 15. IMPRESSION: 1. Changes related to prior shoulder arthroplasty removal with an antibiotic impregnated humeral spacer in place. There is bony remodeling versus age indeterminate fracture deformity of the lesser tuberosity/proximal humeral neck. 2. Small amount of joint fluid with intra-articular debris in the inferior axillary pouch. 3. Generalized rotator cuff muscle atrophy that is most severe involving the subscapularis muscle belly. 4. 2 mm right apical solid noncalcified nodule. Interpreted by: Clovis Anderson Preliminary Report By: Clovis Anderson Electronically signed By Clovis Anderson Dictated Date: 08/26/2024 9:26:09 AM Prelim Date: 08/26/2024 9:36:48 AM Sign Date: 08/26/2024 9:36:48 AM Ordering Provider: DEJAN FERRARA [facility]03-05-2025 Telephone encounter Note* Telephone Encounter - Leslie Monet MD - 07/06/2024 7:55 AM EST Noted [facility] Work Phone: 1(985) 231-966403-05-2025 Miscellaneous Notes* Telephone Encounter - Leslie Monet MD - 07/06/2024 7:55 AM EST Noted * Telephone Encounter - Anne-Marie So RN - 06/08/2024 9:59 AM EST Received a VM from patient on 06/07/24 that she had shoulder surgery about 9 years ago and recently developed a infection. Now she has to have 2 surgeries and will not be able have the Prolia injectionuntil the middle to the end of summer. 06/08/24--called patient back at [phone] and received VM. Left a VM letting patient know we received her VM and we will update the provider. Also told patient to call the nurse line to let the nurses know when she will be able to get the Prolia so if we need to do a PA before she comes in. documented in this encounterC[facility]02[facility]25 [facility] Medical Records Department [address] [place] [address] Discharge Summary 06/28/24 1808 MR#: [id number] Acct: [id number] Name: YARA LOYA Rep #: [id number] : 1950 73 From: Kenyatta GUTIERREZ PCP: AUSTIN Woodward Status:ADM IN Location: [facility] [id number] Providers Date of Admission: 06/24/24 Primary Care Physician: AUSTIN Woodward Consultations 06/24/24 15:04 Consult: Infectious Disease Routine Consulting Provider: Ron Shaikh Reason for Consult: r tsa pji EMERGENT Consult: No MD Notified: Yes Date Notified: 06/24/24 Time Notified: 15:05 Method of Notification: Verbal Comments:: DR FERRARA SPOKE W/DR HSAIKH PERSONALLY 06/24/24 15:05 Consult: Hospitalist Routine Consulting Provider: [facility] Reason for Consult: post op med management EMERGENT Consult: No MD Notified: Yes Date Notified: 06/24/24 Time Notified: 20:00 Method of Notification: Verbal Reason For Visit: ERAS, RIGHT SHOULDER SOFT TISSUE BI Diagnosis Discharge Diagnosis (1) 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 1. Pain control: Patient is on chronic pain control with Dr. Christianson will resume her MS Contin today. Continue with Tylenol and use oxycodone for breakthrough pain. Patient does not appear to be in any distress today. She states her pain is improved today. 2. DVT prophylaxis: Aspirin 81 mg p.o. twice daily 3. Infectious disease: Patient had PICC line ordered and placed. Infectious disease has been involved and patient is currently going to be on ceftriaxone for 6 weeks postoperatively with PICC line. Microbiology has been reviewed and currently has no growth. Appreciate recommendations from infectious disease for discharge planning. 4. Therapy: Patient will wear sling at all times. Should be able to work with therapy on gentle range of motion pendulum swings primarily. [facility] Occupational Therapy should work on patient ADLs. Patient will be in a sling for 6 weeks and driving recommendations are no driving for 6 weeks due to sling use. 5. Medical management: Appreciate medical management consultation. Case was discussed with medicine. 6. Chronic anemia: Patient on iron ferrous sulfate. Awaiting labs returned today. Patient is stable. Lives chronically with hemoglobin of 8-9. No further active treatment required at this time. Hemoglobin 8.2 yesterday 06/27/24. Vitals are stable and patient asymptomatic. Will continue to monitor labs. 7. Microbiology was checked today with some still pending and some final resulted with no growth seen on cultures. Will continue to be reviewed and infectious disease has been involved. 8. Disposition: Case management has been involved for safe discharge planning. Patient and her daughter are here today. Her daughter has learned home health and patient will be going home with home health with the help of her daughter. Patient is stating that she wants to go home and only home. Patient has been accepted for home health and daughter was in today for learning of home health duties. Patient will continue on current pain regimen above. Patient will follow-up per postoperative instructions. I have reviewed the [place] Automated Rx Reporting System (OARRS) report for this patient for refill pattern and other prescriber involvement as part of the appropriate surveillance for the provision of acute and chronic controlled medications. The report was requested and reviewed on the date of this entry and was considered in the prescribing process. This dictation was created using voice recognition software. Phonetic and/or grammatical errors may exist. Medications at Discharge Home Medications acetaminophen 500 mg tablet 1,000 mg PO Q8 PRN pain 07/13/23 levothyroxine 25 mcg tablet 25 mcg PO DAILY THYROID 04/12/24 morphine 15 mg tablet,extended release 15 mg PO BID PAIN 05/26/24 ceftriaxone 2 gram intravenous solution 2 g IV DAILY 39 days 06/27/24 acetaminophen 500 mg tablet 1,000 mg (2 x 500 mg) PO TID #0 tabs 06/28/24 aspirin 81 mg capsule 81 mg PO BID 30 days #0 caps 06/28/24 famotidine 20 mg tablet 20 mg PO DAILY 30 days #30 tabs 06/28/24 ferrous sulfate 325 mg (65 mg iron) tablet (FeroSul) 325 mg PO DAILY@1200 14 days #14 tabs 06/28/24 folic acid 1 mg tablet 1 mg PO BREAKFAST 14 days #14 tabs 06/28/24 oxycodone 5 mg tablet 5 - 10 mg (1 - 2 x 5 mg) PO Q4H PRN PRN as needed (more content not included)...[facility]02-05-2025 Telephone encounter Note* Telephone Encounter - Anne-Marie So RN - 06/08/2024 9:59 AM EST Received a VM from patient on 06/07/24 that she had shoulder surgery about 9 years ago and recently developed a infection. Now she has to have 2 surgeries and will not be able have the Prolia injectionuntil the middle to the end of summer. 06/08/24--called patient back at [phone] and received VM. Left a VM letting patient know we received her VM and we will update the provider. Also told patient to call the nurse line to let the nurses know when she will be able to get the Prolia so if we need to do a PA before she comes in. 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 acute June 24, 2 025 3:04pm Joint infection acute June 24, 2024 3:04pm Presence of right artificial shoulder joint acute June 24, 2 025 3:04pm [facility] Work Phone: 1(431) 321-439012-10-2024 Evaluation note* Diagnosis Onset Date Resolution Status Admit Date Primary osteoarthritis, righ t shoulder acute April 12, 2 024 10:51am Right shoulder pain acute Decem 2023 10:51am Primary osteoarthritis, righ t shoulder acute May 26 9:38am 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 Nelson message about taking the Vitamin D 5000 5 days a week. Closed [facility]08-14-2024 Miscellaneous Notes* Telephone Encounter - Anne-Marie So RN - 12/16/2023 4:03 PM EDT Patient notified of Dr. Nelson message about taking the Vitamin D 5000 5 days a week. Closed documented in this encounterC[facility]08-13-2024 Telephone encounter Note * Telephone Encounter - Miley Nelson MD - 12/15/2023 11:09 AM EDT She can take vitamin D 5000 5 days a week Miley Nelson MD [facility] Work Phone: 1(609) 249-170708-13-2024 Miscellaneous Notes* Telephone Encounter - Miley Nelson MD - 12/15/2023 11:09 AM EDT She can take vitamin D 5000 5 days a week Miley Nelson MD * Telephone Encounter - Yuliana Bagley RN - 12/15/2023 10:22 AM EDT Patient was here for her first Prolia [...] for review as well. documented in this encounterC[facility]08-13-2024 Telephone encounter Note * Telephone Encounter - Yuliana Bagley RN - 12/15/2023 10:22 AM EDT Patient was here for her first Prolia [...] your in box for review as well. [facility]08-13-2024 Nurse Note* Yuliana Bagley RN - 12/15/2023 10:15 AM EDT The patient is here for an injection of Prolia (First Injection) (Completed Evenity Therapy, last injection 11/02/23). Dose: 60 mg Route: Subcutaneous Lot# [id number] Expiration date 04/02/2026 Given without incident. Site: [...] reactions noted. Medication supplied by [facility]. Yuliana Bagley RN [facility]08-13-2024 Nurse Note* Yuliana Bagley RN - 12/15/2023 10:15 AM EDT The patient is here for an injection of Prolia (First Injection) (Completed Evenity Therapy, last injection 11/02/23). Dose: 60 mg Route: Subcutaneous Lot# [id number] Expiration date 04/02/2026 Given without incident. Site: [...] reactions noted. Medication supplied by [facility]. Yuliana Bagley RN documented in this encounterC[facility]08-12-2024 Telephone encounter Note * Telephone Encounter - Miley Nelson MD - 12/14/2023 12:20 PM EDT Order placed Miley Nelson MD [facility] Work Phone: 1(449) 855-292908-12-2024 Miscellaneous Notes* Telephone Encounter - Miley Nelson MD - 12/14/2023 12:20 PM EDT Order placed Miley Nelson MD * Telephone Encounter - Yuliana Bagley RN - 12/14/2023 8:40 AM EDT Patient is scheduled for a Prolia Injection on 12/15/23 at 10:[address] CAM order accordingly. Thank you. Please place in Dr. Monte's absence. Patient just finished Evenity injections last month and transitioning to Prolia. documented in this encounterC[facility]08-12-2024 Telephone encounter Note * Telephone Encounter - Yuliana Bagley RN - 12/14/2023 8:40 AM EDT Patient is scheduled for a Prolia Injection on 12/15/23 at 10:[address] CAM order accordingly. Thank you. Please place in Dr. Monet's absence. Patient just finished Evenity injections last month and transitioning to Prolia. [facility]07-01-2024 Telephone encounter Note* Telephone Encounter - Anne-Marie So RN - 11/02/2023 9:15 AM EDT Closed [facility]07-01-2024 Miscellaneous Notes* Telephone Encounter - Anne-Marie So RN - 11/02/2023 9:15 AM EDT Closed * Telephone Encounter - Leslie Monet MD - 11/02/2023 6:23 AM EDT Order placed Thank you HH * Telephone Encounter - Anne-Marie So RN - 10/30/2023 11:06 AM EDT Patient is scheduled for an Evenity Injection on 11/02/23. Please place CAM order accordingly, standing order (just need one more). Thank you. documented in this encounterC[facility]07-01-2024 Telephone encounter Note * Telephone Encounter - Leslie Monet MD - 11/02/2023 6:23 AM EDT Order placed Thank you HH [facility]06-28-2024 Telephone encounter Note* Telephone Encounter - Anne-Marie So RN - 10/30/2023 11:06 AM EDT Patient is scheduled for an Evenity Injection on 11/02/23. Please place CAM order accordingly, standing order (just need one more). Thank you. [facility]06-26-2024 Telephone encounter Note* Telephone Encounter - Anne-Marie So RN - 10/28/2023 10:50 AM EDT Patient is already scheduled for 11/02/23 for last Evenity. Patient has Medicare A and B as primary insurance so no PA is required. Will schedule patient for Prolia in at her appointment. Closed [facility]06-26-2024 Miscellaneous Notes* Telephone Encounter - Anne-Marie So RN - 10/28/2023 10:50 AM EDT Patient is already scheduled for 11/02/23 for last Evenity. Patient has Medicare A and B as primary insurance so no PA is required. Will schedule patient for Prolia in at her appointment. Closed * Telephone Encounter - Yuliana Bagley RN - 10/27/2023 3:49 PM EDT ----- Message from Leslie Monet MD sent at 10/27/2023 11:24 AM EDT ----- Hello, This patient will receive her last Evenity on 11/02/2023. We will transition her to Prolia in December or January, depending on insurance and your availability Thank you HH documented in this encounterC[facility]06-25-2024 Telephone encounter Note * Telephone Encounter - Yuliana Bagley RN - 10/27/2023 3:49 PM EDT ----- Message from Leslie Monet MD sent at 10/27/2023 11:24 AM EDT ----- Hello, This patient will receive her last Evenity on 11/02/2023. We will transition her to Prolia in December or January, depending on insurance and your availability Thank you HH [facility]06-25-2024 Instructions* Patient Instructions* Leslie Monet MD - 10/27/2023 11:18 AM [...] you at that time documented in this encounterCleveland Clinic [facility]06-25-2024 NoteHNO ID: [id number] Author: LESLIE MONET MD Service: ? Author [...] 12/14/14 DISCECTOMY ANT DCMPRN CORD CERVICAL 1 [facility] 12/14/14 DISCECTOMY ANT DCMPRN CORD CERVICAL EA [facility] 12/14/14 HEMORRHOID SURGERY HX 2013 PAST SURGICAL [...] of imaging exam. Disconti (more content not included)...[facility]06-25-2024 History of Present illness Narrative* Leslie Monet MD - 10/27/2023 10:51 AM EDT Images from the original note were not included. ENDOCRINOLOGY CLINIC NOTE Reason for visit Yara Loya is a 73 year old female with fibromyalgia, RA presented for follow-up of low bone density. HPI She had surgeries for spinal stenosis and sees neurosurgery. Cervical and thoracic MRI in showed stenosis and chronic T3 compression fracture. There is consideration for another cervical spinesurgery She sees rheumatology for fibromyalgia and RA and she takes MTX and plaquenil. She received prednisone for several months Evaluation for secondary causes of low BMD showed SPEP with M protein, negative celiac screen, ionized calcium 1.28, vitamin D 45, PTH 73, vitamin D 45.7, P3.7, bone specific ALP 38, CTX 412, 24-hoururine calcium 86. L-spine x-ray showed age-indeterminate T12 [...] 1.30, vitamin D 74, GFR 69 and PTH67. She stopped taking the calcium due GI [...] Take by mouth once daily. (Patient not taking:Reported on 05/27/2023) No current facility-administered medications for [...] 94 Resp 16 Ht 147.3 cm (4' 9.99) Wt 46 kg (101 lb 6.6 oz) SpO2 99% BMI21.20 kg/m Body mass index is 21.2 kg/m . Last 3 Encounter Ht Readings: Date: Ht: 06/23/2022 147.3 cm (4' 10) 06/04/2022 147.3 cm (4' 10) 04/17/2022 147.3 cm (4' 10) General Appearance: Alert, cooperative, not in distress [...] and these include Reclast or Prolia. We willstart Prolia in December or January 2024 and [...] but still slightly elevated with high normal ioniz ed calcium, and normal total calcium. She stopped [...] - Moderate This note was created using [employer] dictation software. You may find errors that were missed during proofreading. They are purely unintentional and if there are any concerns regarding this dictation, please do not hesitate to call the dictating provider for clarification. Leslie Monet MD documented in this encounterCleveland [facility]05-30-2024 Nurse Note* Anne-Marie So RN - 10/01/2023 10:16 AM EDT The patient is here for an injection of Evenity Injection #11 of 12 Dose: 210 mg (105 mg/1.17 mL X2). Route: Subcutaneous Lot# [id number] Expiration date 10/31/2025 [facility]: 91958-270-03 Given without incident. Site: Right arm Dr. [...] and no reactions noted. Medication supplied by [facility] SHREYAS So RN [facility]05-30-2024 Nurse Note* Anne-Marie So RN - 10/01/2023 10:16 AM EDT The patient is here for an injection of Evenity Injection #11 of 12 Dose: 210 mg (105 mg/1.17 mL X2). Route: Subcutaneous Lot# [id number] Expiration date 10/31/2025 [facility]: 48774-982-29 Given without incident. Site: Right arm Dr. [...] reactions noted. Medication supplied by [facility] So RN documented in this encounterCleveland [facility]05-28-2024 NoteHNO ID: [id number] Author: WISAM MILLS MD Service: ? Author [...] GENERAL: No fever, n (more content not included)...[facility] 09-29-2023 History of Present illness Narrative* Wisam Mills MD - 09/29/2023 10:27 AM EDT (Elements copied from my note dated ,March 24, 2023 have been reviewed and updated where appropriate, and all reflect current assessment and medical decision making from today's encounter, September) HISTORY OF PRESENT ILLNESS: Yara Loya is [...] 12/14/14 DISCECTOMY ANT DCMPRN CORD CERVICAL 1 [facility] 12/14/14 DISCECTOMY ANT DCMPRN CORD CERVICAL EA [facility] 12/14/14 HEMORRHOID SURGERY HX 2013 PAST SURGICAL [...] tablet by mouth three times daily as needed.^Disp:60 tablet^Rfl: 0 (Patient not taking: Reported on [...] in the MR contrast administration guidelines link.^Disp: 1Each^Rfl: 0 (Patient not taking: Reported on 09/21/2023) [...] in the MR contrast administration guidelines link.^Disp: 1Each^Rfl: 0 (Patient not taking: Reported on 09/21/2023) [...] OIL ORAL)^Take by mouth once daily.^Disp: ^Rfl: (Patientnot taking: Reported on 05/27/2023) REVIEW OF SYSTEMS: [...] which included preparing to see the patient, [id number] patient care, completing clinical documentation, obtaining and/or reviewing separately obtained history, counseling and educating the patient/family/caregiver, ordering medications, dayron ts, or procedures, independently interpreting results (not separately reported), and communicating results to the patient/family/caregiver. Electronically Signed: Wisam Mills MD September 29, 2023 documented in this encounterC[facility]05-20-2024 History of Present illness Narrative* Chris Bull MD - 09/21/2023 10:40 AM EDT Images from the original note were not [...] tablet by mouth three times daily as needed.^Disp:60 tablet^Rfl: 0 (Patient not taking: Reported on [...] in the MR contrast administration guidelines link.^Disp: 1Each^Rfl: 0 (Patient not taking: Reported on 09/21/2023) [...] in the MR contrast administration guidelines link.^Disp: 1Each^Rfl: 0 (Patient not taking: Reported on 09/21/2023) [...] OIL ORAL)^Take by mouth once daily.^Disp: ^Rfl: (Patientnot taking: Reported on 05/27/2023) Patient Entered Questionnaires [...] include extension of fusion to T4 I connectedthe prior system. This would help the patient's symptoms due to the extensive arthritic changes between T2-3 and 3 4 and the collapse at the T3 body with associated spondylolisthesis at T2-3. Patientwould like to think about it and let us know. Medications: Tizanidine 2 mg tablet. Take 1 tablet by mouth every 8 hours as needed. Follow up: PRN Imaging Ordered: None The documentation for this note was completed by Meggan Fox acting as scribe for Chris Bull MD. September 21, 2023 10:52 AM. SIGNATURE: Chris Bull MD PATIENT NAME: Yara Loya DATE: September 21, 2023 TIME: 3:05 PM PAGER: documented in this encounterCleveland [facility]05-20-2024 NoteHNO ID: [id number] Author: CHRIS BULL MD Service: ? Author Type: Physician [...] 23 21 7 05/30/2015 (more content not included)...[facility] 08-31-2023 Nurse Note* Anne-Marie So RN - 08/31/2023 10:30 AM EDT The patient is here for an injection of Evenity Injection #10 of 12 Dose: 210 mg (105 mg/1.17 mL X2). Route: Subcutaneous Lot# [id number] Expiration date 10/31/2025 [facility]: 59330-748-30 Given without incident. Site: Right arm Dr. Dougherty present in clinic at time of injection. The date due for the next injection is in 30 days. On or after 09/30/2023. Last Injection: 06/29/23 DAVID: 05/27/23 NOV: Will need 10/27/2023 recommendation Insurance: Primary= Medicare, Secondary= O-- No PA Required Labs: 03/13/23 Calcium 9.5, Vitamin D 74.1 DX: M81.0 CPT: J3111 DXA: 10/21/22 (T-Score -2.9 Left Forearm) Patient education was given by nurse. Patient tolerated Injection well, in NAD and no reactions noted. Medication supplied by CC SHREYAS So RN [facility]04-29-[facility] Nurse Note* Anne-Marie So RN - 08/31/2023 10:30 AM EDT The patient is here for an injection of Evenity Injection #10 of 12 Dose: 210 mg (105 mg/1.17 mL X2). Route: Subcutaneous Lot# [id number] Expiration date 10/31/2025 [facility]: 95138-129-80 Given without incident. Site: Right arm Dr. [...] reactions noted. Medication supplied by [facility]A So RN documented in this encounterCleveland Clinic [facility]03-20-2024 Miscellaneous Notes* Telephone Encounter - Leslie Monet MD - 07/22/2023 4:08 PM EDT Reviewed. Thank you HH * Telephone Encounter - Prachi Ratliff MA - 07/22/2023 3:43 PM EDT RECEIVED A FAX FROM [facility] Dexa Scan from 10/21/2022 Send to scanning when done documented in this encounterCleveland Clinic Med[facility]03-20-2024 Discharge summary Author Gama Stout [facility] July 22, 2023 10:16am Note Date/Time July 22, 2023 10: 14am [facility] Medical Records Department [address] [place] [address] Instructions for Home/Discharge Instructions 07/22/23 1013 MR#: [id number] Acct: [id number] Name: YARA LOYA Rep #:[id number] : 1950 72 From: Gama Stout MD PCP: AUSTIN Woodward Status:REG S DC Discharge Instructions Diet Discharge Diet: No restrictions Activity Discharge Activity: May Not Drive Ice area for (Minutes): 10 Lifting Restrictions: sling realtime reporter until FU Dressing / Incision Call your doctor if your incision/area has: Continuous Slow Oozing, Sudden Increased Bleeding, Increased Pain/ Swelling, Increased Redness, Foul Smelling Discharge and Swelling at the incision site Change Dressing in: leave in place till F/U Cleanse incision/area with: Do not get Incision Wet Follow Up Care Please Follow Up With: Gama Stout MD When: 2 days Test Results: Test results from this visit will be discussed in further detail at your follow- up appointment, if applicable. Discharge Plan Admission Attending Provider: Gama Stout Primary Care Provider: Krystin العراقي Discharge Orders/Prescriptions Prescriptions: New oxycodone-acetaminophen [Endocet] 5-325 mg tablet 1 tab PO Q4H MDD 6 PRN (Reason: pain) 5 Days Qty: 20 0RF No Action cholecalciferol (vitamin D3) 125 mcg (5,000 unit) capsule 125 mcg PO DAILY methotrexate sodium 2.5 mg tablet 20 mg PO QWEEK Patient Comments: take 8 tablets by mouth every week folic acid 1 mg tablet 1 mg PO DAILY Patient Comments: take 2 tablets by mouth once daily prednisone 10 mg tablet 10 mg PO PRN Patient Comments: TAKE 1 TABLET BY MOUTH EVERY DAY NEEDED FOR 3-5 DAYS WITH A FLARE biotin 10,000 mcg capsule 10,000 mcg PO DAILY Xtampza ER 13.5 mg cap,sprinkl,ER12hr(DONT CRUSH) 13.5 mg PO BID Rx Instructions: must administer with a meal/food Evenity 105 mg/1.17 mL syringe 210 mg subcut QMONTH hydroxychloroquine 200 mg Tablet 200 mg PO DAILY Curcumin 95 % powder 1 ea miscellaneous DAILY acetaminophen 500 mg Tablet 1,000 mg PO Q8 PRN (Reason: pain) Referrals / Follow Up: Henrry,Krystin, MAID HOUSEKEEPER-C [Primary Care Provider] - Gama Stout MD [Med Staff - Active Staff] - Disposition Disposition (needs filled in before D/C Order can be placed): Home, Self Care 07/22/23 1016<Electronically signed by Gama Stout MD>Gama Stout MD CC: MAID HOUSEKEEPER-C Krystin العراقي ~ Signed [facility] Work Phone: 1(493) 404-436503-20-2024 Procedure [facility] 07-22-[facility] History and physical note Author Gama Stout [facility] July 22, 2023 7:12am Note Date/Time July 22, 2023 7:1 2am [facility] Medical Records Department [address] [place] [address] History & Physical Exam 07/22/23 0711 MR#: [id number] Acct: [id number] Name: YARA LOYA Rep #:[id number] : 1950 72 From: Gama Stout MD PCP: AUSTIN Woodward Status:REG S DC Location: [place] [address] HPI - General HPI Narrative YARA LOYA, is a 72 F who presents for left reverse total shoulder arthroplasty. no changes to h and p. left shoulder marked, ok to proceed. rab, narcotic counselling and post op instructions given. plan for block. consent updated. MR#: [id number] Acct: [id number] Name: YARA LOYA Rep #: [id number] : 1950 Provider: Dr. Gama Stout MD Age/Sex: 72/F Location: [facility] Status: Signed Intake Vital Signs 10/21/2309:20 Height 4 ft 10 in Intake Visit Reasons: LEFT SHOULDER Accompanied by: Self Allergies grass pollen Allergy (Intermediate, Verified 06/08/23 08:44) sinus issues Medications multivitamin 1 ea PO DAILY supplement 07/03/17 [History Confirmed 06/08/23] cholecalciferol (vitamin D3) 125 mcg (5,000 unit) capsule 125 mcg PO DAILY supplement 02/15/21 [History Confirmed 06/08/23] fluticasone propionate 50 mcg/actuation nasal spray,suspension 2 spray intranasal PRN PRN ALLERGIES 02/15/21 [History Confirmed 06/08/23] hydroxychloroquine 200 mg tablet 200 mg PO DAILY arthritis 11/26/21 [History Confirmed 06/08/23] acetaminophen 500 mg tablet 1,000 mg (2 x 500 mg) PO Q8 #100 tabs 12/12/21 [Rx Confirmed 06/08/23] biotin 10,000 mcg capsule mcg PO 05/19/23 [History Confirmed 06/08/23] folic acid 1 mg tablet PO 05/19/23 [History Confirmed 06/08/23] methotrexate sodium 2.5 mg tablet 2.5 mg PO QWEEK 05/19/23 [History Confirmed 06/08/23] oxycodone myristate 13.5 mg capsule sprinkle extend release 12hr(DON'T CRUSH) (Xtampza ER) 13.5 mg PO BID 05/19/23 [History Confirmed 06/08/23] prednisone 10 mg tablet mg PO 05/19/23 [History Confirmed 06/08/23] romosozumab-aqqg 105 mg/1.17 mL subcutaneous syringe (Evenity) 210 mg subcut QMONTH 05/19/23 [History Confirmed 06/08/23] ueiL-B-[id number]-PG-H17-agqF59-bre-qcoax pepper 100 mg-200 unit-50 mg-800 mcg tablet tab PO 05/19/23 [History Confirmed 06/08/23] PFSH Medical History Anemia Arthritis Atypical chest pain Back pain Bilateral knee pain Bleeding tendency Chronic back pain Constipation Fibromyalgia Former smoker Headache, migraine Health care maintenance History of pain when walking History of steroid therapy Knee fracture, right Muscular pain Osteoarthritis Osteoporosis Osteoporosis Patellar fracture Post-menopausal Primary osteoarthritis, left shoulder Seasonal allergies Shortness of breath Wears dentures Wears glasses Surgical History H/O shoulder replacement History of back surgery History of hip replacement, total Hx of hemorrhoidectomy Hx of neck surgery S/P cervical spinal fusion S/P cervical spinal fusion Family History Father Hypertension Arthritis CVA (cerebral vascular accident)Mother CVA (cerebral vascular accident) Hypertension Alcoholism Social History Smoking Status: Former smoker alcohol intake: never substance use type: does not use what type of physical activity do you participate in: walking frequency: daily HPI LEFT SHOULDER Details: This documentation accurately reflects the service provided and the decisions made by me, Dr. Gama Stout MD 06/08/23 0828. Part of today?s visit was documented by [ ], acting as scribe. YARA LOYA is a 72 year old F here today for follow-up of a left shoulder CT and MRI results for surgical planning reverse total shoulder arthroplasty. Ortho Exam General General: Yes no acute distress Neurologic: Yes alert and Yes oriented x3 Psychologic: Yes reasonable and appropriate Left Shoulder Skin/Wound: Yes CDI, No ecchymosis, No erythema and No swelling Testing: Yes Neer's, No Speed's, No TTP Biceps, No TTP AC Joint and Yes empty can SHOULDER: active fe 70, passive 170, er 40, no lag, strength fe 4-. mild crepitus Supplemental Info [facility] Imaging Services [address] [place] [address] Extremity Upper without Contra MR#: [id number] Acct: [id number] Name: YARA LOAY Rep #: [id number] : 1950 F 72 From: Nathen Neville MD PCP: AUSTIN Woodward Status: REG CLI Study: Extremity Upper without Contra Date of Exam: 06/03/23 Exam# [id number] Ordering Dr: Gama Stout MD STUDY: CT LEFT SHOULDER REASON FOR EXAM: Female, 72 years old. For surgical planning reverse total shoulder replacement RADIATION DOSAGE (If Supplied By Facility): CTDIvol = ( 22.13 ) mGy, DLP = ( 467.21 ) mGycm TECHNIQUE: The patient was scanned in a multi detector CT scanner. High resolution transaxial imaging was performed without the administration of intravenous contrast material. Sagittal and coronal images were reconstructed. Individualized dose optimization techniques were used for this CT. COMPARISON: Left shoulder radiographs dated 04/30/2022. FINDINGS: There is glenohumeral arthrosis with joint space narrowing, marginal osteophyte formation, and subchondral sclerosis of the posterior glenoid. Intact glenoid rim, neck and visualized scapula. Intact humeral head, neck and tuberosities. There is no demonstrated acute fracture. Normal coracoid process. Normal visualized lateral clavicle. There is hypertrophic acromioclavicular arthrosis with inferior osteophyte formation, with mild effacement of the supraspinatus myotendinous junction. There is a Type II morphology (curved), with a neutral orientation. Normal visualized muscles and soft tissue structures. 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 No demonstrated acute fracture. Electronically Signed: Nathen Neville MD at 9:07 [facility] Reading Location ID and State: [address] [place] [address] , Service support , [facility] Imaging Services [address] [place] [id number] Upper Ext Joint Only(Routine) MR#: [id number] Acct: [id number] Name: YARA LOYA Rep #: [id number] : 1950 F 72 From: Nathen Neville MD PCP: Krystin العراقي NP-Hakan Status: REG CLI Study: Upper Ext Joint Only(Routine) Date of Exam: 06/03/23 Exam# [id number] Ordering Dr: Gama Stout MD STUDY: MRI LEFT SHOULDER REASON FOR EXAM: Female, 72 years old. For surgical planning reverse total shoulder replacement. TECHNIQUE: Standardized fat and water weighted pulse sequences were obtained in all 3 orthogonal planes. COMPARISON: Left shoulder CT dated 06/03/2023. FINDINGS: There is supraspinatus, infraspinatus, and subscapularis tendinosis without a full-thickness tear. Normal teres minor tendon. Normal supraspinatus muscle. Normal infraspinatus muscle. Normal subscapularis muscle. Normal teres minor muscle. There is glenohumeral arthrosis with joint space narrowing, marginal osteophyte formation, high-grade chondromalacia, and mild subchondral marrow edema. There is overall degeneration of the glenoid labrum. There is a moderate glenohumeral joint effusion. Intact humeral head and visualized proximal humerus. There is tendinosis and medial subluxation of the long biceps tendon at the proximal bicipital groove. There is hypertrophic acromioclavicular arthrosis, with inferior osteophyte formation, with mild effacement of the supraspinatus myotendinous junction. There is a Type II morphology (curved), with a neutral orientation. There is no significant subacromial-subdeltoid bursal fluid. Normal visualized coracohumeral and coracoacromial ligaments. Normal quadrilateral space. Normal axillary space. Normal deltoid muscle. Normal trapezius muscle. MRI/Upper Ext Joint Only(Routine) IMPRESSION: Supraspinatus, infraspinatus, and subscapularis tendinosis without a full-thickness rotator cuff tear. Hypertrophic acromioclavicular arthrosis, with inferior osteophyte formation, with mild effacement of the supraspinatus myotendinous junction. Glenohumeral arthrosis with overall degeneration of the glenoid labrum. Moderate glenohumeral joint effusion. Tendinosis and medial subluxation of the long biceps tendon at the proximal bicipital groove. Electronically Signed: Nathen Neville MD at 9:04 EST , Coding Level of Care Code Off vis,est,level 3 Diagnoses Primary osteoarthritis, left shoulder M19.012 Assessment and Plan Assessment and Plan (1) Primary osteoarthritis, left shoulder: Status: Acute Plan: YARA LOYA is a 72 year old F here today for follow-up of a left shoulder CT and MRI results for surgical planning reverse total shoulder arthroplasty. She wants to go ahead with a left reverse total shoulder arthroplasty. Discussed the pros and cons risks and benefits as well as postoperative recovery2 to 3 weeks in a sling sleeping in the sling for the first 4 weeks. 3 to 6 months of physical therapy for recovery. Pros and cons risks and benefits were discussed with the patient including but not limited to infection, pain, stiffness, bleeding, damage to surrounding structures, neurovascular injury, recurrence or retear, failure or wear of hardware or fixation, instability, fracture, deep vein thrombosis and pulmonary embolism, anesthetic risks, , patient dissatisfaction, need for further surgery and other risks. Patient understood and wished to proceed with surgery,and signed the informed consent documentation. [facility] Medical History (Updated 07/13/23 @ 14:40 by Nellie Villegas) Anemia Arthritis Back pain Bilateral knee pain Bleeding tendency Chronic back pain Constipation Fibromyalgia Former smoker Headache, migraine Health care maintenance History of pain when walking History of steroid therapy Knee fracture, right Muscular pain Osteoarthritis Osteoporosis Osteoporosis Patellar fracture Post-menopausal Primary osteoarthritis, left shoulder Rheumatoid arthritis Seasonal allergies Shortness of breath Wears dentures Wears glasses Home Medications cholecalciferol (vitamin D3) 125 mcg (5,000 unit) capsule 125 mcg PO DAILY supplement 02/15/21 [History Last Taken 07/20/23] hydroxychloroquine 200 mg tablet 200 mg PO DAILY arthritis 11/26/21 [History Last Taken 07/20/23] biotin 10,000 mcg capsule 10,000 mcg PO DAILY 05/19/23 [History Last Taken 07/20/23] folic acid 1 mg tablet 1 mg PO DAILY 05/19/23 [History Last Taken 07/20/23] methotrexate sodium 2.5 mg tablet 20 mg PO QWEEK 05/19/23 [History Last Taken 07/20/23] oxycodone myristate 13.5 mg capsule sprinkle extend release 12hr(DON'T CRUSH) (Xtampza ER) 13.5 mg PO BID 05/19/23 [History Last Taken 07/22/23] prednisone 10 mg tablet 10 mg PO PRN 05/19/23 [History Last Taken Unknown] romosozumab-aqqg 105 mg/1.17 mL subcutaneous syringe (Evenity) 210 mg subcut QMONTH 05/19/23 [History Last Taken Unknown] acetaminophen 500 mg tablet 1,000 mg PO Q8 PRN pain 07/13/23 [History Last Taken 07/21/23] turmeric (bulk) 95 % powder (Curcumin) 1 ea miscellaneous DAILY 07/13/23 [History Last Taken 07/20/23] Allergy/AdvReac Type Severity Reaction Status Date / Time grass pollen Allergy Intermediate sinus Verified 07/22/23 05:55 issues Family History Father Hypertension Arthritis CVA (cerebral vascular accident) Mother CVA (cerebral vascular accident) Hypertension Alcoholism Surgical History (Updated 07/13/23 @ 14:40 by Nellie Villegas) H/O shoulder replacement History of arthroplasty History of back surgery History of esophagogastroduodenoscopy (EGD) History of hip replacement, total Hx of hemorrhoidectomy Hx of neck surgery Hx of total hip arthroplasty S/P cervical spinal fusion S/P cervical spinal fusion Social History Smoking Status: Former smoker alcohol intake: never substance use type: does not use what type of physical activity do you participate in: walking frequency: daily Vital Signs Vital Signs Vital Signs: 07/22/23 06:08 07/22/23 06:08 Temperature 98.1 F Temperature Source Temporal Pulse Rate 75 Respiratory Rate 16 Respiratory Pattern Normal Blood Pressure 100/36 L Blood Pressure Mean 57 Blood Pressure Source Monitor Blood Pressure Position Semi-Fowlers Blood Pressure Location Right Arm Pulse Ox 99 Oxygen Delivery Method Room Air Weight Weight: 103 lb 9.876 oz Body Mass Index (BMI) 21.7 Results Lab / Micro Data Labs: Laboratory Results - last 24 hr 07/22/23 06:01: POC Glucose 89 07/22/23 0712 <Electronically signed by Gama Stout MD> Cosigner Signature (if applicable): CC: AUSTIN العراقي; Dr. Gama Stout MD~ Signed [facility] Work Phone: 1(837) 412-575003-19-2024 Miscellaneous Notes* Telephone Encounter - Anne-Marie So RN - 07/21/2023 11:09 AM EDT Patient is scheduled for 08/31/23 at 10am for Evenity. Closed * Telephone Encounter - Violeta Frederick - 07/17/2023 11:52 AM EDT Patient calling backto report she will be skipping the month of July for her injection due to having surgery. She will resume and has her injections scheduled for August. Thank you * Telephone Encounter - Uma Yee - 07/17/2023 9:49 AM EDT Called patient to schedule a July Nurse visit for the Evenity injection. Needs to be 07/28/23 or after. documented in this encounterC[facility]12-20-2023 Nurse Note* Anne-Marie So RN - 04/22/2023 10:37 AM EST The patient is here for an injection of Evenity Injection #7 of 12 Dose: 210 mg (105 mg/1.17 mL X2). Route: Subcutaneous Lot# [id number] Expiration date 01/31/2025 [facility]: 17702-043-61 Given without incident. Site: Right arm Dr. [...] and no reactions noted. Medication supplied by [facility]. Anne-Marie So RN documented in this encounterCleveland Clinic [facility]11-21-2023 History of Present illness Narrative* Wisam Mills MD - 03/24/2023 10:39 AM EST (Elements copied from my note dated February 25, 2023, have been reviewed and updated where appropriate, and all reflect current assessment and medical decision making from today's encounter, 2022) HISTORY OF PRESENT ILLNESS: Yara Loya is [...] 12/14/14 DISCECTOMY ANT DCMPRN CORD CERVICAL 1 [facility] 12/14/14 DISCECTOMY ANT DCMPRN CORD CERVICAL EA [facility] 12/14/14 HEMORRHOID SURGERY HX 2013 PAST SURGICAL [...] tablet by mouth three times daily as needed.^Disp:60 tablet^Rfl: 0 (Patient not taking: Reported on [...] in the MR contrast administration guidelines link.^Disp: 1Each^Rfl: 0 iv contrast (will be provided with [...] in the MR contrast administration guidelines link.^Disp: 1Each^Rfl: 0 cetirizine (ZYRTEC) 10 mg tablet^Take 10 [...] which included preparing to see the patient, [id number] patient care, completing clinical documentation, obtaining and/or reviewing separately obtained history, counseling and educating the patient/family/caregiver, ordering medications, dayron ts, or procedures, independently interpreting results (not separately reported), and communicating results to the patient/family/caregiver. Electronically Signed: Wisam Mills MD March 24, 2023 documented in this encounterCleveland Clinic [facility]11-20-2023 Nurse Note* Anne-Marie So, GREGORIA - 03/23/2023 10:11 AM EST The patient is here for an injection of Evenity Injection #6 of 12 Dose: 210 mg (105 mg/1.17 mL X2). Route: Subcutaneous Lot# [id number] Expiration date 01/31/2025 [facility]: 85207-141-80 Given without incident. Site: Right arm Dr. [...] reactions noted. Medication supplied by [facility]. Anne-Marie So RN documented in this encounterCleveland Clinic Med[facility]11-20-2023 History of Present illness Narrative* Chris Bull MD - 03/23/2023 9:27 AM EST SPINE SURGERY ESTABLISHED This is an in-person visit. DATE OF SERVICE: 03/23/2023 DATE OF LAST VISIT: 01/19/2023 SUBJECTIVE: HPI:Yara Loya is a 72 year old female presenting alone. She consulted with her shoulder surgeon who indicated that her pain is attributed to her spine. Shecontinues to have radiating right shoulder pain to the neck and arm, although it has improved. The patient had been experiencing throbbing and stabbing pain in her hands and right arm, for whichshe tried various interventions including heating pads, ice, [...] in the MR contrast administration guidelines link.^Disp: 1Each^Rfl: 0 iv contrast (will be provided with [...] in the MR contrast administration guidelines link.^Disp: 1Each^Rfl: 0 hydrOXYchloroQUINE (PLAQUENIL) 200 mg tablet^Take 200 [...] tablet by mouth three times daily as needed.^Disp:60 tablet^Rfl: 0 (Patient not taking: Reported on [...] increased pain and issues.) 14 (A lower scoreindicates increased pain and issues.) PROMIS Score Percentiles [...] of third thoracic vertebra with routine healing, subsequentencounter (primary encounter diagnosis) Yara Loya will continue [...] Past Histories independently gathered by the clinical retail support associate and the remaining scribed note accurately describes my personal service to the patient. The documentation for this note was completed by Nancy Bower acting as scribe for Chris Bull MD. March 23, 2023 9:33 AM. I agree with the operative note independently gathered by the clinical retail support associate and the remaining scribed note accurately describes my personal service to the patient. SIGNATURE: Chris Bull MD PATIENT NAME: Yara Loya DATE: March 23, 2023 TIME: 9:27 AM PAGER: documented in this encounterCleveland Clinic [facility]11-10-2023 History of Present illness Narrative* Reef Becky Silvestre RT(R) - 03/13/2023 11:00 AM EST Radiology Service Progress Note DATE OF SERVICE: [...] creatinine assay has traceable calibration to isotope dilution- mass spectrometry. Refer to KDIGO guidelines for clinical interpretation. In patients with unstable renal function, e.g. those with acute kidney injury, the eGFRmay not accurately reflect actual GFR. 03/13/2023 69 >=60 mL/min/1.73m Final Comment: Estimated Glomerular Filtration Rate (eGFR) is calculated using the 2020 CKD-EPI creatinine equation. This equation utilizes serum creatinine, sex, and age as parameters. The creatinine assay has traceable calibration to isotope dilution- mass spectrometry. Refer to KDIGO guidelines for clinical interpretation. In patients with unstable renal function, e.g. those with acute kidney injury, the eGFRmay not accurately reflect actual GFR. eGFR- Date [...] 2023 TIME: 12:04 PM documented in this encounterCleveland [facility]10-25-2023 History of Present illness Narrative* Wisam Mills MD - 02/25/2023 10:04 AM EDT (Elements copied from my note dated August [...] 12/14/14 DISCECTOMY ANT DCMPRN CORD CERVICAL 1 [facility] 12/14/14 DISCECTOMY ANT DCMPRN CORD CERVICAL EA [facility] 12/14/14 HEMORRHOID SURGERY HX 2013 PAST SURGICAL [...] tablet by mouth three times daily as needed.^Disp:60 tablet^Rfl: 0 linaclotide (LINZESS) 145 mcg capsule^Take [...] in the MR contrast administration guidelines link.^Disp: 1Each^Rfl: 0 (Patient not taking: Reported on 10/20/2022) [...] in the MR contrast administration guidelines link.^Disp: 1Each^Rfl: 0 (Patient not taking: Reported on 10/20/2022) [...] OIL ORAL)^Take by mouth once daily.^Disp: ^Rfl: (Patientnot taking: Reported on 10/20/2022) REVIEW OF SYSTEMS: [...] which included preparing to see the patient, kjew-rx-nujt patient care, completing clinical documentation, obtaining and/or reviewing separately obtained history, counseling and educating the patient/family/caregiver, ordering medications, dayron ts, or procedures, independently interpreting results (not separately reported), and communicating results to the patient/family/caregiver. Electronically Signed: Wisam Mills MD February 25, 2023 documented in this [facility]10-18-2023 Nurse Note* Yuliana Bagley RN - 02/18/2023 10:22 AM EDT The patient is here for an injection of Evenity Injection #5 of 12 Dose: 210 mg (105 mg/1.17 mL X2). Route: Subcutaneous Lot# [id number] Expiration date 01/31/2025 [facility]: 22714-687-02 Given without incident. Site: Right arm Dr. [...] reactions noted. Medication supplied by [facility]. Yuliana Bagley RN documented in this [facility]09-25-2023 Miscellaneous Notes* Telephone Encounter - Sophia Grajeda PSS - 01/26/2023 9:33 AM EDT CD/REPORT READY FOR DIGITAL CARTOGRAPHER AT [facility] * Telephone Encounter - Lalitha Ramos - 01/23/2023 11:30 AM EDT Pt requesting disc of ct taken on 01/23 Lalitha Ramos January 23, 2023 11:32 AM documented in this encounterCleveland Clinic Medina Hospital09-18-2023 History of Present illness Narrative* Chris Bull MD - 01/19/2023 10:22 AM EDT SPINE SURGERY ESTABLISHED This is an in-person [...] tablet by mouth three times daily as needed.^Disp:60 tablet^Rfl: 0 linaclotide (LINZESS) 145 mcg capsule^Take [...] in the MR contrast administration guidelines link.^Disp: 1Each^Rfl: 0 (Patient not taking: Reported on 10/20/2022) [...] in the MR contrast administration guidelines link.^Disp: 1Each^Rfl: 0 (Patient not taking: Reported on 10/20/2022) [...] OIL ORAL)^Take by mouth once daily.^Disp: ^Rfl: (Patientnot taking: Reported on 10/20/2022) Patient Entered Questionnaires [...] me: No additional images reviewed today ASSESSMENT/PLAN (S28.582X) Closed stable burst fracture of third thoracic vertebra with routine healing, subsequentencounter (primary encounter diagnosis) (M48.02) Spinal stenosis of [...] Past Histories independently gathered by the clinical retail support associate and the remaining scribed note accurately describes my personal service to the patient. The documentation for this note was completed by Genna Zee, AA Student acting as scribe for Chris Bull MD. January 19, 2023 10:22 AM. I agree with the operative note independently gathered by the clinical retail support associate and the remaining scribed note accurately describes my personal service to the patient. SIGNATURE: Chris Bull MD PATIENT NAME: Yara Loya DATE: January 19, 2023 TIME: 10:22 AM PAGER: documented in this encounterCleveland Clinic Medina Hospital09-18-2023 Nurse Note* Yuliana Bagley RN - 01/19/2023 10:19 AM EDT The patient is here for an injection of Evenity Injection #4 of 12 Dose: 210 mg (105 mg/1.17 mL X2). Route: Subcutaneous Lot# [id number] Expiration date 01/31/2025 [facility]: 09201-109-74 Given without incident. Site: Right arm present [...] and no reactions noted. Medication supplied by [facility] [employer]. Yuliana Bagley RN documented in this encounterCleveland Clinic Medina Hospital08-23-2023 Miscellaneous Notes* Telephone Encounter - Anne-Marie So RN - 12/24/2022 10:19 AM EDT Patient scheduled her #4 Evenity Injection for 01/19/2023. Closed * Telephone Encounter - Yuliana Bagley RN - 12/16/2022 2:49 PM EDT Patient called back, state's she has COVID and will call back to reschedule when she is feeling better. Keep open. * Telephone Encounter - Yuliana Bagley RN - 12/16/2022 2:22 PM EDT Patient missed her # 4 Evenity Injection yesterday and did not call or reschedule as of yet. Called patient's home, left voice message to call office at [phone], and ask to speak to the nurse. Also, sent patient a Par[employer] message. documented in this encounterCleveland Clinic Medina Hospital08-15-2023 Miscellaneous Notes* Telephone Encounter - Yuliana Bagley RN - 12/16/2022 2:48 PM EDT Noted. Thank you. * Telephone Encounter - Uma Yee - 12/16/2022 2:42 PM EDT Patient called back stating she has COVID and is not feeling well. Patient will call back when she is feeling better to reschedule her injection documented in this encounterCleveland Clinic Medina Hospital07-13-2023 Nurse Note* Anne-Marie So RN - 11/13/2022 11:22 AM EDT The patient is here for an injection of Evenity Injection #3 of 12 Dose: 210 mg (105 mg/1.17 mL X2). Route: Subcutaneous Lot# [id number] Expiration date 01/31/2025 [facility]: 79578-720-07 Given without incident. Site: Right arm present [...] and no reactions noted. Medication supplied by [facility] [employer]. Anne-Marie So RN documented in this encounterCleveland Clinic Medina Hospital06-23-2023 Miscellaneous Notes* Telephone Encounter - Kam Martin RN - 10/24/2022 9:38 AM EDT Will forward for review. * Telephone Encounter - Renetta Acevedo - 10/24/2022 8:45 AM EDT Patient calling asking for results of Xray dont one 10/20. She also wants to know if she can get a referral to another neurosurgeon closer to home in [place]. States that she has seen him before and was the one that did her first surgery. She would like to get a second opinion with him again but they are asking for a referral. documented in this encounterCleveland Clinic Medina Hospital06-19-2023 NoteHNO ID: [id number] Author: LUKE Jessica Service: Radiology Author Type: [...] BY: LUKE Jessica October 20, 2022 9:11 [id number] History of Present illness Narrative* Renetta Manjarrez CT - 10/20/2022 9:10 AM EDT Radiology Service Progress Note PATIENT NAME: Yara Loya DATE OF SERVICE: October 20, 2022 TIME: 9:11 AM PATIENT IDENTITY VERIFICATION COMPLETED USING TWO (2) IDENTIFIERS: Name and Date of confirmedby patient verbally. FALL SCREENING: Has the patient had 2 falls in the last year or 1 fall with injury or currently using an Ambulatory Assistive Device (Walker, Cane, Wheelchair, Crutches, etc.)? No PATIENT GENDER DATA: Female. status: : No status: NO. PATIENT RELEVANT IMPLANT DATA REVIEWED: Not Applicable RADIOLOGY DEPARTMENT: General X-ray: Exam(s) Completed: Upper Extremity X- Ray(s): Shoulder, AP / TRUE AP left PERIPHERAL IV DATA: Not applicable SIGNED BY: LUKE Jessica October 20, 2022 9:11 AM documented in this encounterCleveland Clinic Medina Hospital06-19-2023 History of Present illness Narrative* Chris Bull MD - 10/20/2022 8:29 AM EDT SPINE SURGERY ESTABLISHED VISIT This is an [...] tablet by mouth three times daily as needed.^Disp:60 tablet^Rfl: 0 CALCIUM ORAL^Take 600 mg by [...] in the MR contrast administration guidelines link.^Disp: 1Each^Rfl: 0 (Patient not taking: Reported on 10/20/2022) [...] in the MR contrast administration guidelines link.^Disp: 1Each^Rfl: 0 (Patient not taking: Reported on 10/20/2022) [...] OIL ORAL)^Take by mouth once daily.^Disp: ^Rfl: (Patientnot taking: Reported on 10/20/2022) Patient Entered Questionnaires [...] of third thoracic vertebra with routine healing, subsequentencounter (primary encounter diagnosis) 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 It is less likely relatedto the shoulder. We will obtain updated left [...] ordered 3. Follow up: 2 months SIGNATURE: Chris Bull MD PATIENT NAME: Yara oLya DATE: October 20, 2022 TIME: 8:29 AM PAGER: Jolene Chiu, attest that this document has been prepared under the direction and in the presence of Chris Bull MD on October 20, 2022 at 8:51 AM. documented in this encounterCleveland Clinic Med[facility] Hospital05-10-2023 Nurse Note* Yuliana Bagley RN - 09/10/2022 11:38 AM EDT The patient is here for an injection of Evenity Injection #1 of 12 Dose: 210 mg (105 mg/1.17 mL X2). Route: Subcutaneous Lot# [id number] Expiration date 10/2024 [facility]: 04484-051-15 Given without incident. Site: left arm Dr. [...] and no reactions noted. Medication supplied by [facility]. Yuliana Bagley RN documented in this encounterCleveland Clinic Medina Hospital05-10-2023 Instructions* Patient Instructions* Leslie Monet MD - 09/10/2022 11:13 AM EDT - Stop the Fosmax - We will start a new medication for the osteoporosis called Evenity injection every month - I will see you in 6 months with a blood test few days prior to the appointment. Please stop the biotin 5 days before doing the test documented in this encounterCleveland Clinic Medina Hospital05-10-2023 History of Present illness Narrative* Leslie Monet MD - 09/10/2022 10:50 AM EDT Images from the original note were not included. ENDOCRINOLOGY CLINIC NOTE Reason for visit Yara Loya is a 71 year old female with fibromyalgia, RA presented for follow-up of low bone density. HPI She had surgeries for spinal stenosis and sees neurosurgery. Cervical and thoracic MRI in showed stenosis and chronic T3 compression fracture. There is consideration for another cervical spinesurgery She sees rheumatology for fibromyalgia and RA and she takes MTX and plaquenil. She takes ogrglxqyyn19 mg about 3 times a week for joint and shoulder pain, and has been taking it for 4 months Evaluation for secondary causes of low BMD showed SPEP with M protein, negative celiac screen, ionized calcium 1.28, vitamin D 45, PTH 73, vitamin D 45.7, P3.7, bone specific ALP 38, CTX 412, 24-hoururine calcium 86. L-spine x-ray showed age-indeterminate T12 [...] 12/14/14 DISCECTOMY ANT DCMPRN CORD CERVICAL 1 [facility] 12/14/14 DISCECTOMY ANT DCMPRN CORD CERVICAL EA [facility] 12/14/14 HEMORRHOID SURGERY HX 2013 PAST SURGICAL [...] Take by mouth once daily. (Patient not taking:Reported on 09/10/2022) No current facility-administered medications for [...] 115/71 Pulse 77 Ht 144.8 cm (4' 9) Wt 47.6 kg (105 lb) SpO2 97% BMI 22.72 kg/m Body mass index is 22.72 kg/m . Last 3 Encounter Ht Readings: Date: Ht: 06/23/2022 147.3 cm (4' 10) 06/04/2022 147.3 cm (4' 10) 04/17/2022 147.3 cm (4' 10) General Appearance: Alert, cooperative, not in distress [...] that she had compression fractures while on antiresorptivemedication, and the fact that there is consideration [...] - Moderate This note was created using Dragon dictation software. You may find errors that were missed during proofreading. They are purely unintentional and if there are any concerns regarding this dictation, please do not hesitate to call the dictating provider for clarification. Leslie Monet MD documented in this encounterCleveland Clinic Med[facility] Hospital04-25-2023 History of Present illness Narrative* Wisam Mills MD - 08/26/2022 11:20 AM EDT HISTORY OF PRESENT ILLNESS: Yara Loya is [...] 12/14/14 DISCECTOMY ANT DCMPRN CORD CERVICAL 1 [facility] 12/14/14 DISCECTOMY ANT DCMPRN CORD CERVICAL EA [facility] 12/14/14 HEMORRHOID SURGERY HX 2013 PAST SURGICAL [...] Take by mouth once daily. (Patient not taking:Reported on 07/23/2022) REVIEW OF SYSTEMS: GENERAL: No [...] which included preparing to see the patient, hhqj-yh-erqg patient care, completing clinical documentation, obtaining and/or reviewing separately obtained history, counseling and educating the patient/family/caregiver, ordering medications, dayron ts, or procedures, independently interpreting results (not separately reported), and communicating results to the patient/family/caregiver. Electronically Signed: Wisam Mills MD August 26, 2022 11:22 AM documented in this encounterCleveland Clinic Medina Hospital04-13-2023 Miscellaneous Notes* Telephone Encounter - Patty Batres Ma - 08/14/2022 10:29 AM EDT Mailed patient letter about not answering phone and attached providers message. CLOSED * Telephone Encounter - Patty Batres Ma - 08/14/2022 10:13 AM EDT 3rd attempt: Called patients home and left VM to call back office at [phone]. Please give message below. Sending mychart message in case she will check it that way. * Telephone Encounter - Yuliana Bagley RN - 08/13/2022 9:29 AM EDT Called patient's home/cell# at [phone] left voice message to call office at [phone], and ask to speak to the nurse. * Telephone Encounter - Prachi Ratliff MA - 08/08/2022 11:53 AM EDT Called patients number and left VM to call back office at [phone]. Please give message below. * Telephone Encounter - Patty Batres Ma - 08/05/2022 2:20 PM EDT ----- Message from Leslie Monet MD sent [...] They have 2 numbers on their website [phone] or [phone] if you could give both to her I will see her next month as planned Thank you H documented in this encounterCleveland Clinic Medina Hospital03-30-2023 History of Present illness Narrative* Norma Prasad RT(R) - 07/31/2022 8:40 AM EDT Radiology Service Progress Note PATIENT NAME: Yara Loya DATE OF SERVICE: July 31, 2022 TIME: 8:39 AM PATIENT IDENTITY VERIFICATION COMPLETED USING TWO (2) IDENTIFIERS: Name and Date of confirmedby patient verbally. FALL SCREENING: Has the patient [...] 31, 2022 8:39 AM documented in this encounterCleveland Clinic Med[facility] Hospital03-22-2023 Instructions* Patient Instructions* Leslie Monet MD - 07/23/2022 11:19 AM [...] passed with the bowel movement should be collected.Try not to include feces with the urine collection. If feces do get mixed in, do not try to remove the feces from the urine collection bottle. Finish by collecting the first urine passed the next morning, adding it to the collection bottle. This should be within ten minutes before or after the time of the first morning void on the first day(which was flushed). In this example, you would try to void between 6:05 and 6:25 on the second day. If you need to urinate one hour before the final collection time, drink a full glass of water so that you can void again at the appropriate time. If you have to urinate 20 minutes before, try to holdthe urine until the proper time. Please note [...] treat osteoporosis in your case: Please visit [email or web address] to learn more about this medication Teriparatide [...] remember. If it is almost time for thenext dose, do not take the missed dose. Return to your normal dosing schedule. Do not take 2 doses of this medicine at one time. Please tell your doctor and pharmacist about all the medicines you take. Include both prescription and wgir-lpk-cszpejb medicines. Also tell them about any vitamins, [...] while on this medicine. Notify your doctor immediatelyif you develop those symptoms. Some patients taking [...] of your other medicines. Be sure to tellthem about all the medicines you take. Please [...] this medicine. Abaloparatide Pen Injector (DAILY INJECTION) [facility] For bone strength. Instructions This medicine [...] use it. Do not freeze. Remove from therefrigerator and let it warm up to room [...] dose and return to your regular schedule withthe next dose. Do not take 2 doses at one time. Please tell your doctor and pharmacist about all the medicines you take. Include both prescription and vjcj-gyn-matefuu medicines. Also tell them about any vitamins, [...] of your other medicines. Be sure to tellthem about all the medicines you take. Please [...] seek medical help quickly. documented in this encounterCleveland Clinic Med[facility] Hospital03-22-2023 History of Present illness Narrative* Leslie Monet MD - 07/23/2022 10:42 AM EDT Images from the original note were not included. ENDOCRINOLOGY CLINIC NOTE Reason for visit Yara Loya is a 71 year old female with fibromyalgia, RA seen in consultation for evaluation and discussion of treatment options for low bone density. Consult has been requested by [facility] She had surgeries for spinal stenosis and sees neurosurgery. Cervical and thoracic MRI in showed stenosis and chronic T3 compression fracture. There is consideration for another cervical spinesurgery She sees rheumatology for fibromyalgia and RA and she takes MTX and plaquenil. She takes ushiqwdwxy56 mg about 3 times a week for [...] 12/14/14 DISCECTOMY ANT DCMPRN CORD CERVICAL 1 [facility] 12/14/14 DISCECTOMY ANT DCMPRN CORD CERVICAL EA [facility] 12/14/14 HEMORRHOID SURGERY HX 2013 PAST SURGICAL [...] 147/89 Pulse 91 Ht 144.8 cm (4' 9) Wt 49.4 kg (109 lb) SpO2 96% BMI 23.59 kg/m Body mass index is 23.59 kg/m . Last 3 Encounter Ht Readings: Date: Ht: 06/23/2022 147.3 cm (4' 10) 06/04/2022 147.3 cm (4' 10) 04/17/2022 147.3 cm (4' 10) General Appearance: Alert, cooperative, not in distress [...] on antiresorptive medication, and the fact that thereis consideration for another spinal surgery, anabolic therapy [...] with more than 50% of the total keev-sp-qqfy time of the visit in counseling / coordination of care. This note was created using [facility] dictation software. You may find errors that were missed during proofreading. They are purely unintentional and if there are any concerns regarding this dictation, please do not hesitate to call the dictating provider for clarification. Leslie Monet MD documented in this encounterCleveland Clinic Medina Hospital02-20-2023 History of Present illness Narrative* Chris Bull MD - 06/23/2022 2:01 PM EST SPINE SURGERY NEW PATIENT This is an in-person visit. PCP: Luis Alberto Ferrari MD REFERRING PROVIDER: Dr. Adrián Pulido [...] 12/14/14 DISCECTOMY ANT DCMPRN CORD CERVICAL 1 [facility] 12/14/14 DISCECTOMY ANT DCMPRN CORD CERVICAL EA [facility] 12/14/14 HEMORRHOID SURGERY HX 2014 PAST SURGICAL [...] by mouth one time a week. (Patient nottaking: Reported on 06/04/2022) folic acid 0.8 mg [...] T3 with listhesis at T2-3 and erosion ofthe T2 inferior endplate. All findings suggestive distal junctional kyphosis ASSESSMENT/PLAN (M43.23) Fusion of spine of cervicothoracic region (Z98.1) Arthrodesis status (T88.9XXA) Adverse effect of treatment, initial encounter (S22.031D) Closed stable burst fracture of third thoracic vertebra with routine healing, subsequentencounter Patient has finding of distal junctional kyphosis [...] scan 3. Follow up: 3 months SIGNATURE: Chris Bull MD PATIENT NAME: Yara Loya DATE: June 23, 2022 TIME: 2:01 PM PAGER: I, Jolene Mcnair, attest that this document has been prepared under the direction and in the presence of Chris Bull MD on June 23, 2022 at 2:48 PM. documented in this encounterCleveland Clinic Medina Hospital02-01-2023 Instructions* Patient Instructions* Adrián Pulido PA-C - 06/04/2022 1:20 PM EST How to review your options for a [facility] physician referral: Go to [email or web address] and look for the Find a Doctor tab right underneath the [facility] logo in the top left corner of the page. Click on that and then enter spine surgery in that search field. There should be 18 or 20 different physicians in the [facility] area for you to review their credentials, locations of practice, educational background, and specialties. Call [phone] to schedule. Look for someone who works with thoracic spine and fractures. documented in this encounterCleveland Clinic Medina Hospital02-01-2023 History of Present illness Narrative* Adrián Pulido PA-C - 06/04/2022 12:32 PM EST [facility] [address] [address] Dear Luis Alberto Ferrari MD, Yara Loya is a very pleasant 71 year old individual who comes in to the office on 06/04/2022 forfollow-up regarding their Cervical spine. Has neck pain, [...] been by Dr. Denny Monk [facility] ROS: Since last visit-patient DENIES fevers, chills, [...] mouth twice daily for 180 days. 180 capsule1 alendronate (FOSAMAX) 70 mg tablet Take 1 tablet by mouth once each week. 4 tablet 2 OMEGA-3 FATTY ACIDS/FISH OIL (OMEGA 3 FISH OIL ORAL) Take by mouth once daily. Alendronate Sodium (FOSAMAX) 70 mg/75 mL solution Take 70 mg by mouth one time a week. (Patient nottaking: Reported on 06/04/2022) raloxifene (EVISTA) 60 mg [...] 120/70, pulse 93, height 147.3 cm (4' 10), weight 47.6 kg (105 lb), SpO2 98 %. Body mass index is 21.95 kg/m . Station and Gait: favoring the right lower extremity, short strides, and wide-based Range of Motion: has difficulty turning head to the right or left Motor: Has mild deficits in hand intrinsics Sensory: Bilateral hand intermittent numbness but very frequent. There is not a specific dermatomaldistribution. She denies numbness in the thoracic region and denies bowel and bladder area numbnessand lower extremity numbness and tingling Reflexes: She is hyperreflexic in multiple areas and there is mild positivity to Pamella's on the left. There is 3 beats of ankle clonus on the left and 2 beats on the right. She is hyperreflexic inlower extremities at 3-4/4 symmetrically. Pain on Palpation: [...] appears to be fairly wide in that areabut it is appreciably narrowed as a result of the T3 fracture and disc complex. She has no obvious T2 signal changes at this area. She also brought in additional imaging as requested. She had had some studies done outside of [facility] in the interval between 2015 and 2021. We uploaded those into [employer] and copied off the reports for scanning [...] hold her studies that were uploaded to [employer] today. She will carry these to her neurosurgical appointment in case there is any question or discrepancy with what has uploaded into [employer] at that point in time. Time spent: 45 minutes today with this patient visit. This includes qgiz-ig-wbbl time, review of chart records regarding conservative care history, spine- pertinent imaging, and communication/care coordination with referring provider, problem-specific history-taking and counseling/education regarding treatment options. This document has been created with the use of voice recognition technology. It may contain inaccuracies: (e.g. misspellings, inaccurate syntax or word sense) that have escaped review. Mecca Hester MA documented in this encounterCleveland Clinic Medina Hospital01-28-2023 NoteHNO ID: [id number] Author: Joan Sun, RT(R) Service: Radiology Author Type: Technologist Type: [...] Loya DATE: May 31, 2022 TIME: 2:36 [facility] History of Present illness Narrative * RT Freddy(R) - 05/31/2022 1:30 PM EST Radiology Service Progress Note DATE OF SERVICE: [...] 2022 TIME: 2:36 PM documented in this encounterCleveland Clinic Medina Hospital12-15-2022 History of Present illness Narrative* Renetta Manjarrez CT - 04/17/2022 10:10 AM EST Radiology Service Progress Note PATIENT NAME: Yara Loya DATE OF SERVICE: April 17, 2022 TIME: 10:50 AM PATIENT IDENTITY VERIFICATION COMPLETED USING TWO (2) IDENTIFIERS: Name and Date of confirmedby patient verbally. FALL SCREENING: Has the patient [...] 17, 2022 10:50 AM documented in this encounterC[facility] Instructions* Patient Instructions* Adrián Pulido PA-C - 04/17/2022 10:00 AM EST documented in this encounterCleveland [facility]12-15-2022 History of Present illness Narrative* Adrián Pulido PA-C - 04/17/2022 8:47 AM EST Images from the original note were not included. Adrián Pulido PA-C [facility] [address] [id number] 04/17/2022 ASSESSMENT AND PLAN: Assessment : Encounter [...] XR CERV GENERAL 2V AP/LAT Discussion: Ms. oLya presents a complex cervical postsurgical situation with multiple procedures as noted below. Had cervical surgery by Dr. Denny Monk in 2014, then had a revision procedure at [facility] by Dr. Dutta in 2016 or 2017. She did well for a couple years afterward and had done treatment locally in [place] by pain management with Dr. Christianson where she had injections. She did not bring any records to know specifically what type of injections were done but she reported no help at all from them. She won't go back to [place] because it's too far to drive. Ice is the only thing that seems to give her some help. She reports having had some studies regarding her neck in the past few months in [place], but thereis nothing available for review in [facility]. She has hyperreflexia and appearance of chronic [...] scoliosis distal to the fusion segment in theupper thoracic region and what appears to be [...] today with this patient visit. This includes livb-ke-tetl time, review of chart records regarding conservative care history, spine- pertinent imaging, and communication/care coordination with referring provider, problem-specific history-taking and counseling/education regarding treatment options. cc: No referring provider defined for this encounter. Phone: N/A Fax: Results of consultation to be transmitted via electronic medical record for those providers who practice within [facility] or with access to [facility] via [facility], or via letter. ######################################################################## CHIEF COMPLAINT: Patient is here for the [...] in 2014, [address] [facility]. The procedure was a Cervical Diskectomy [...] mouth twice daily for 180 days. 180 capsule1 alendronate (FOSAMAX) 70 mg tablet Take 1 [...] 12/14/14 DISCECTOMY ANT DCMPRN CORD CERVICAL EA [facility] 12/14/14 HEMORRHOID SURGERY HX 2013 PAST SURGICAL [...] Hematologic: (-) Prolonged Bleeding (+) Easy Bruising ################################################################################ ################################################# PHYSICAL EXAM: Blood pressure 120/68, pulse 79, height 147.3 cm (4' 10), weight 48.8 kg (107 lb 9.6 oz), [...] patient's motivation for treatment was judged based ontoday's encounter to be good. SPINE: Cervical Lordosis: [...] Left side of her body from her shoulderdown to her hip. Increased pain with axial loading: No Distraction: Normal Pain responses: elevated NEUROLOGIC EXAM: Requires verbal cues to minimize cog-wheel or give-way resistance: No MOTOR: Deltoid R: 5/5 L: 5/5 Biceps R: 5/5 L: 5/5 Wrist Extension R: 5/5 L: 5/5 Wrist Flexion R: 5/5 L: 5/5 Triceps R: 4/5 L: 4/5 Cloth Shrinking Tester R: -4/5 L: -4/5 Interossei R: -4/5 [...] STUDIES: See discussion above documented in this encounterC[facility]11-01-2022 Miscellaneous Notes* Telephone Encounter - Briseida Lara - 03/04/2022 3:41 PM EDT Patient returned call, advised of Dr. Cao message and she is going to see her pain management doctor tomorrow. She does not want to increase the gabapentin it makes her feel like a zombie. 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 * Telephone Encounter - Briseida Lara - 03/04/2022 3:16 PM EDT Spoke with patient, advised Dr. Cao is only at [place] location on Fridays and offered virtual visit, patient declined. Patient placed on wait list. She also state she never received information from her EMG and she is still in pain. States she hasto take an ice pack and heating pack with her everywhere she goes. Please advise * Telephone Encounter - Edgardo Brito - 03/03/2022 8:55 AM EDT Pt called in concerned her appointment scheduled with Dr. Cao is too far out. Pt declined scheduling at any other location, but is experiencing a lot of pain and issues taking her medication. Please advise, Edgardo Brito documented in this encounterC[facility]10-28-2022 Miscellaneous Notes* Telephone Encounter - Awa Poole LPN - 02/28/2022 3:54 PM EDT Spoke with Bev at [facility] and informed her of Dr. Cao's message. Faxing encounterover to Dr. Mccain's office Attn Bev @ [phone] * Telephone Encounter - Mayur Cao MD - 02/27/2022 2:42 PM EDT Please call them and advise that neurology does not provide clearance for surgery There is no literature guiding this topic. If there is a specific question, please have the surgeon reach out to me directly to discuss. * Telephone Encounter - Kalani Llamas LPN - 02/27/2022 2:36 PM EDT Received demographics and surgery clearance form from [facility]. Placed in tray for review and signature. documented in this encounterC[facility]10-28-2022 History of Present illness Narrative* Ron Segundo DO - 02/28/2022 10:29 AM EDT UNIVERSAL PROTOCOL / SAFETY CHECKLIST Procedure to [...] Sophia Bob EMG Tech documented in this encounterCleveland [facility]10-07-2022 Instructions* Patient Instructions* Mayur Cao MD - 02/07/2022 11:11 AM EDT Increase your dose of gabapentin to 300 mg twice a day (morning and night). Please call the [facility] call center at [phone] to make your EMG testing appointment at one of the following locations: [facility] and [facility] ([place] Please make sure that your test is scheduled at one of the above locations. documented in this encounterC[facility]10-07-2022 History of Present illness Narrative* Mayur Cao MD - 02/07/2022 10:37 AM EDT HPI: This is Ms. Yara Loya a 71 year old female from who [facility] with a chief complaint [...] any reason that you can't have surgery Group Fitness Manager started her on prednisone 10 mg daily, improved R knee pain. Also helped right shoulder/side pain Said she could only take short term d/t osteoporosis. Hx of cervical spine fusion x 2, first surgery 8 years ago at [facility], last surgery about 4 years ago; in [place] at [facility] Hx of lumbar spine fusion 2-3 years ago [place] [facility] in [place] Hx of bilateral hip replacement, most recent 2 months ago Hx of R shoulder replacement at least 6 years ago Also on methotrexate, plaquenil Raloxifene; alendronate for osteoporosis She follows w/ pain mgmnt Marion Chirstianson MD PDMP 381 Current neuroactive medications: Gpn [...] Take by mouth once daily. (Patient not taking:Reported on 02/07/2022) No current facility-administered medications for [...] All systems negative other than those mentioned inHPI. Physical Exam: Vitals: BP 141/85 (BP Site: Left Arm, BP Position: Sitting, BP Cuff Size: Regular Adult) Pulse 84 Wt 46.7 kg (103 lb) BMI 20.12 kg/m General appearance: no acute distress. Neurological Exam: MSE: Alert and oriented to person, place, and time. Speech is fluent without dysarthria or aphasia.Recall is intact to recent and remote events. [...] CT myelogram and mri cervical spine from 2015 Other studies: Recent emg report 04/23 reviewed, [...] daily. RTC 3 months. documented in this encounterC[facility]09-08-2022 Miscellaneous Notes* Telephone Encounter - Briseida Lara - 01/09/2022 9:42 AM EDT Called patient to schedule from referral. Patient not scheduling at this time because she is seeing someone else. May call back in the futureto schedule with Dr. Cao at the [place] location documented in this encounterCleveland [facility]04-02-2014 History of Past illness Narrative* Problem Noted Date Resolved Date Hemorrhoids 08/03/2013 09/20/2013 Last Assessment & Plan: Patient had her hemorrhoidectomy done and she feels a lot of pain relief. Pruritus ani 04/20/2013 09/20/2013 documented as of this encounter (statuses as of 01/09/2022) [place] [id number] History of Past illness Narrative* Problem Noted Date Resolved Date Hemorrhoids 08/03/2013 09/20/2013 Last Assessment & Plan: Patient had her hemorrhoidectomy done and she feels a lot of pain relief. Pruritus ani 04/20/2013 09/20/2013 documented as of this encounter (statuses as of 02/07/2022) [place] [id number] History of Past illness Narrative* Problem Noted Date Resolved Date Hemorrhoids 08/03/2013 09/20/2013 Last Assessment & Plan: Patient had her hemorrhoidectomy done and she feels a lot of pain relief. Pruritus ani 04/20/2013 09/20/2013 documented as of this encounter (statuses as of 02/28/2022) [place] [id number] History of Past illness Narrative* Problem Noted Date Resolved Date Hemorrhoids 08/03/2013 09/20/2013 Last Assessment & Plan: Patient had her hemorrhoidectomy done and she feels a lot of pain relief. Pruritus ani 04/20/2013 09/20/2013 documented as of this encounter (statuses as of 02/28/2022) [place] [id number] History of Past illness Narrative* Problem Noted Date Resolved Date Hemorrhoids 08/03/2013 09/20/2013 Last Assessment & Plan: Patient had her hemorrhoidectomy done and she feels a lot of pain relief. Pruritus ani 04/20/2013 09/20/2013 documented as of this encounter (statuses as of 03/04/2022) [facility] of [facility] illness Narrative* Problem Noted Date Resolved Date Hemorrhoids 08/03/2013 09/20/2013 Last Assessment & Plan: Patient had her hemorrhoidectomy done and she feels a lot of pain relief. Pruritus ani 04/20/2013 09/20/2013 documented as of this encounter (statuses as of 03/13/2022) [facility] of [facility] Narrative* Problem Noted Date Resolved Date Hemorrhoids 08/03/2013 09/20/2013 Last Assessment & Plan: Patient had her hemorrhoidectomy done and she feels a lot of pain relief. Pruritus ani 04/20/2013 09/20/2013 documented as of this encounter (statuses as of 04/17/2022) [facility] of [facility] illness Narrative* Problem Noted Date Resolved Date Hemorrhoids 08/03/2013 09/20/2013 Last Assessment & Plan: Patient had her hemorrhoidectomy done and she feels a lot of pain relief. Pruritus ani 04/20/2013 09/20/2013 documented as of this encounter (statuses as of 06/01/2022) [facility] of [facility] illness Narrative* Problem Noted Date Resolved Date Hemorrhoids 08/03/2013 09/20/2013 Last Assessment & Plan: Patient had her hemorrhoidectomy done and she feels a lot of pain relief. Pruritus ani 04/20/2013 09/20/2013 documented as of this encounter (statuses as of 06/01/2022) [facility] of [facility] illness Narrative* Problem Noted Date Resolved Date Hemorrhoids 08/03/2013 09/20/2013 Last Assessment & Plan: Patient had her hemorrhoidectomy done and she feels a lot of pain relief. Pruritus ani 04/20/2013 09/20/2013 documented as of this encounter (statuses as of 06/04/2022) [facility] Narrative* Problem Noted Date Resolved Date Hemorrhoids 08/03/2013 09/20/2013 Last Assessment & Plan: Patient had her hemorrhoidectomy done and she feels a lot of pain relief. Pruritus ani 04/20/2013 09/20/2013 documented as of this encounter (statuses as of 06/24/2022) [place] [id number] History of Past illness Narrative* Problem Noted Date Resolved Date Hemorrhoids 08/03/2013 09/20/2013 Last Assessment & Plan: Patient had her hemorrhoidectomy done and she feels a lot of pain relief. Pruritus ani 04/20/2013 09/20/2013 documented as of this encounter (statuses as of 06/25/2022) [facility] Narrative* Problem Noted Date Resolved Date Hemorrhoids 08/03/2013 09/20/2013 Last Assessment & Plan: Patient had her hemorrhoidectomy done and she feels a lot of pain relief. Pruritus ani 04/20/2013 09/20/2013 documented as of this encounter (statuses as of 07/23/2022) [facility] Narrative* Problem Noted Date Resolved Date Hemorrhoids 08/03/2013 09/20/2013 Last Assessment & Plan: Patient had her hemorrhoidectomy done and she feels a lot of pain relief. Pruritus ani 04/20/2013 09/20/2013 documented as of this encounter (statuses as of 08/05/2022) [place] [id number] History of Past illness Narrative* Problem Noted Date Resolved Date Hemorrhoids 08/03/2013 09/20/2013 Last Assessment & Plan: Patient had her hemorrhoidectomy done and she feels a lot of pain relief. Pruritus ani 04/20/2013 09/20/2013 documented as of this encounter (statuses as of 08/15/2022) [facility] Narrative* Problem Noted Date Resolved Date Hemorrhoids 08/03/2013 09/20/2013 Last Assessment & Plan: Patient had her hemorrhoidectomy done and she feels a lot of pain relief. Pruritus ani 04/20/2013 09/20/2013 documented as of this encounter (statuses as of 08/28/2022) [facility] Narrative* Problem Noted Date Resolved Date Hemorrhoids 08/03/2013 09/20/2013 Last Assessment & Plan: Patient had her hemorrhoidectomy done and she feels a lot of pain relief. Pruritus ani 04/20/2013 09/20/2013 documented as of this encounter (statuses as of 09/10/2022) [facility] Narrative* Problem Noted Date Resolved Date Hemorrhoids 08/03/2013 09/20/2013 Last Assessment & Plan: Patient had her hemorrhoidectomy done and she feels a lot of pain relief. Pruritus ani 04/20/2013 09/20/2013 documented as of this encounter (statuses as of 09/10/2022) [facility] Narrative* Problem Noted Date Resolved Date Hemorrhoids 08/03/2013 09/20/2013 Last Assessment & Plan: Patient had her hemorrhoidectomy done and she feels a lot of pain relief. Pruritus ani 04/20/2013 09/20/2013 documented as of this encounter (statuses as of 10/20/2022) [place] [id number] History of Past illness Narrative* Problem Noted Date Resolved Date Hemorrhoids 08/03/2013 09/20/2013 Last Assessment & Plan: Patient had her hemorrhoidectomy done and she feels a lot of pain relief. Pruritus ani 04/20/2013 09/20/2013 documented as of this encounter (statuses as of 10/27/2022) [facility] Narrative* Problem Noted Date Diagnosed Date Resolved Date Hemorrhoids 08/03/2013 09/20/2013 Last Assessment & Plan: Patient had her hemorrhoidectomy done and she feels a lot of pain relief. Pruritus ani 04/20/2013 09/20/2013 documented as of this encounter (statuses as of 11/13/2022) [facility] Narrative* Problem Noted Date Diagnosed Date Resolved Date Hemorrhoids 08/03/2013 09/20/2013 Last Assessment & Plan: Patient had her hemorrhoidectomy done and she feels a lot of pain relief. Pruritus ani 04/20/2013 09/20/2013 documented as of this encounter (statuses as of 12/17/2022) [place] [id number] History of Past illness Narrative* Problem Noted Date Diagnosed Date Resolved Date Hemorrhoids 08/03/2013 09/20/2013 Last Assessment & Plan: Patient had her hemorrhoidectomy done and she feels a lot of pain relief. Pruritus ani 04/20/2013 09/20/2013 documented as of this encounter (statuses as of 12/24/2022) [facility] Narrative* Problem Noted Date Diagnosed Date Resolved Date Hemorrhoids 08/03/2013 09/20/2013 Last Assessment & Plan: Patient had her hemorrhoidectomy done and she feels a lot of pain relief. Pruritus ani 04/20/2013 09/20/2013 documented as of this encounter (statuses as of 01/19/2023) [facility] Narrative* Problem Noted Date Diagnosed Date Resolved Date Hemorrhoids 08/03/2013 09/20/2013 Last Assessment & Plan: Patient had her hemorrhoidectomy done and she feels a lot of pain relief. Pruritus ani 04/20/2013 09/20/2013 documented as of this encounter (statuses as of 01/20/2023) [facility] Narrative* Problem Noted Date Diagnosed Date Resolved Date Hemorrhoids 08/03/2013 09/20/2013 Last Assessment & Plan: Patient had her hemorrhoidectomy done and she feels a lot of pain relief. Pruritus ani 04/20/2013 09/20/2013 documented as of this encounter (statuses as of 02/18/2023) [facility] Narrative* Problem Noted Date Diagnosed Date Resolved Date Hemorrhoids 08/03/2013 09/20/2013 Last Assessment & Plan: Patient had her hemorrhoidectomy done and she feels a lot of pain relief. Pruritus ani 04/20/2013 09/20/2013 documented as of this encounter (statuses as of 02/25/2023) [facility] Narrative* Problem Noted Date Diagnosed Date Resolved Date Hemorrhoids 08/03/2013 09/20/2013 Last Assessment & Plan: Patient had her hemorrhoidectomy done and she feels a lot of pain relief. Pruritus ani 04/20/2013 09/20/2013 documented as of this encounter (statuses as of 03/13/2023) [facility] Narrative* Problem Noted Date Diagnosed Date Resolved Date Hemorrhoids 08/03/2013 09/20/2013 Last Assessment & Plan: Patient had her hemorrhoidectomy done and she feels a lot of pain relief. Pruritus ani 04/20/2013 09/20/2013 documented as of this encounter (statuses as of 03/14/2023) [facility] Narrative* Problem Noted Date Diagnosed Date Resolved Date Hemorrhoids 08/03/2013 09/20/2013 Last Assessment & Plan: Patient had her hemorrhoidectomy done and she feels a lot of pain relief. Pruritus ani 04/20/2013 09/20/2013 documented as of this encounter (statuses as of 03/14/2023) [facility] Narrative* Problem Noted Date Diagnosed Date Resolved Date Hemorrhoids 08/03/2013 09/20/2013 Last Assessment & Plan: Patient had her hemorrhoidectomy done and she feels a lot of pain relief. Pruritus ani 04/20/2013 09/20/2013 documented as of this encounter (statuses as of 03/23/2023) [facility] Narrative* Problem Noted Date Diagnosed Date Resolved Date Hemorrhoids 08/03/2013 09/20/2013 Last Assessment & Plan: Patient had her hemorrhoidectomy done and she feels a lot of pain relief. Pruritus ani 04/20/2013 09/20/2013 documented as of this encounter (statuses as of 03/24/2023) [facility] Narrative* Problem Noted Date Diagnosed Date Resolved Date Hemorrhoids 08/03/2013 09/20/2013 Last Assessment & Plan: Patient had her hemorrhoidectomy done and she feels a lot of pain relief. Pruritus ani 04/20/2013 09/20/2013 documented as of this encounter (statuses as of 03/24/2023) [place] [id number] History of Past illness Narrative* Problem Noted Date Diagnosed Date Resolved Date Hemorrhoids 08/03/2013 09/20/2013 Last Assessment & Plan: Patient had her hemorrhoidectomy done and she feels a lot of pain relief. Pruritus ani 04/20/2013 09/20/2013 documented as of this encounter (statuses as of 04/23/2023) [facility] Narrative* Problem Noted Date Diagnosed Date Resolved Date Hemorrhoids 08/03/2013 09/20/2013 Last Assessment & Plan: Patient had her hemorrhoidectomy done and she feels a lot of pain relief. Pruritus ani 04/20/2013 09/20/2013 documented as of this encounter (statuses as of 07/21/2023) [facility] Narrative* Problem Noted Date Diagnosed Date Resolved Date Hemorrhoids 08/03/2013 09/20/2013 Last Assessment & Plan: Patient had her hemorrhoidectomy done and she feels a lot of pain relief. Pruritus ani 04/20/2013 09/20/2013 documented as of this encounter (statuses as of 07/23/2023) [facility] Future Appointments [facility] Evaluation note* Diagnosis Onset Date Resolution Status CTS (carpal tunnel syndrome) acute CTS (carpal tunnel syndrome) acute Orthopedic aftercare acute [facility] Work Phone: Evaluation note* Diagnosis Onset Date Resolution Status CTS (carpal tunnel syndrome) acute Orthopedic aftercare acute Orthopedic aftercare acute Atypical chest pain acute Cervical pain (neck) acute Cervical radiculopathy acute Muscular pain acute Shortness of breath acute Chronic back pain chronic [facility] Work Phone: Evaluation note* Diagnosis Onset Date Resolution Status Orthopedic aftercare acute Orthopedic aftercare acute Atypical chest pain acute Cervical pain (neck) acute Cervical radiculopathy acute Muscular pain acute Shortness of breath acute Chronic back pain chronic Cervical pain (neck) acute Cervical radiculopathy acute Muscular pain acute Chronic back pain chronic [facility] Work Phone: Evaluation note* Diagnosis Onset Date Resolution Status Orthopedic aftercare acute Orthopedic aftercare acute Atypical chest pain acute Cervical pain (neck) acute Cervical radiculopathy acute Muscular pain acute Shortness of breath acute Chronic back pain chronic Cervical pain (neck) acute Cervical radiculopathy acute Muscular pain acute Chronic back pain chronic Degenerative joint disease of right hip acute Degenerative scoliosis acute 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 acute Degenerative joint disease of right hip acute Degenerative scoliosis acute Right knee DJD acute Radiculopathy due to disorde r of intervertebral disc of lumbar spine acute Chronic back pain chronic Right knee DJD acute [facility] Work Phone: Evaluation note* Diagnosis Onset Date Resolution Status Orthopedic aftercare acute Atypical chest pain acute Cervical pain (neck) acute Cervical radiculopathy acute Muscular pain acute Shortness of breath acute Chronic back pain chronic Cervical pain (neck) acute Cervical radiculopathy acute Muscular pain acute Chronic back pain chronic Degenerative joint disease of right hip acute Degenerative scoliosis acute 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 acute Degenerative joint disease of right hip acute Degenerative scoliosis acute Right knee DJD acute Radiculopathy due to disorde r of intervertebral disc of lumbar spine acute Chronic back pain chronic Right knee DJD acute [facility] Work Phone: Evaluation note* Diagnosis Onset Date Resolution Status Degenerative joint disease of right hip acute Degenerative scoliosis acute 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 acute Degenerative joint disease of right hip acute Degenerative scoliosis acute Right knee DJD acute Radiculopathy due to disorde r of intervertebral disc of lumbar spine acute Chronic back pain chronic Right knee DJD acute S/P total right hip arthroplasty acute Orthopedic aftercare resolve d Other acute postprocedural pain acute S/P total right hip arthroplasty acute [facility] Work Phone: Evaluation note* Diagnosis Radiculopathy, cervical region- Primary Brachial neuritis or radiculitis nos [facility] Diagnosis Carpal tunnel syndrome, right upper limb- Primary Radiculopathy, cervical region Brachial neuritis or radiculitis nos [facility] this [facility] Diagnosis Onset Date Resolution Status S/P total right hip arthroplasty acute Orthopedic aftercare resolve d Other acute postprocedural pain acute S/P total right hip arthroplasty acute S/P total right hip arthroplasty acute [facility] Work Phone: Evaluation note* Diagnosis Cervicalgia- Primary Arthrodesis status Adverse effect of treatment, initial encounter [facility]* Diagnosis Onset Date Resolution Status Other acute postprocedural pain acute S/P total right hip arthroplasty acute S/P total right hip arthroplasty acute [facility] Work Phone: Evaluation note* Diagnosis Onset Date Resolution Status S/P total right hip arthroplasty acute [facility] Work Phone: Evaluation noteNo assessment information available [facility] Work Phone: Evaluation note* Diagnosis Arthrodesis status Adverse effect of treatment, initial encounter documented in this encounter [facility] note* Diagnosis Cervicalgia Arthrodesis status Adverse effect [...] subsequent encounter- Primary documented in this encounter [facility] note* Diagnosis 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- Primary documented in this encounter [facility] note* Diagnosis 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 documented in this encounter [facility] note* Diagnosis Closed stable burst fracture of third thoracic vertebra with routine healing, subsequent encounter- Primary documented in this encounter [facility] note* Diagnosis 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- Primary documented in this encounter [facility] note* Diagnosis Onset Date Resolution Status Primary osteoarthritis, left shoulder acute Left shoulder pain noneactiv e [facility] Work Phone: Evaluation note* Diagnosis Onset Date Resolution Status Primary osteoarthritis, left shoulder acute Left shoulder pain noneactiv e Primary osteoarthritis, left shoulder acute [facility] Work Phone: Evaluation note* Diagnosis Onset Date Resolution Status Primary osteoarthritis, left shoulder acute Left shoulder pain noneactiv e Primary osteoarthritis, left shoulder acute Primary osteoarthritis, left shoulder acute [facility] Work Phone: Evaluation note* Diagnosis Onset Date Resolution Status Primary osteoarthritis, left shoulder acute Left shoulder pain noneactiv e Primary osteoarthritis, left shoulder acute Primary osteoarthritis, left shoulder acute Primary osteoarthritis, left shoulder acute Primary osteoarthritis, left shoulder acute [facility] Work Phone: Evaluation note* Diagnosis Age-related osteoporosis with current pathological fracture with routine healing, subsequent encounter- Primary documented in this encounter [facility] note* Diagnosis Cervical spondylosis without myelopathy- Primary [facility]* Diagnosis Anemia, unspecified type- Primary documented in this encounter [facility] note* Diagnosis Age-related osteoporosis with current pathological fracture with routine healing, subsequent encounter- Primary Hyperparathyroidism (HCC) Hyperparathyroidism, unspecified documented in this encounter [facility] note* Diagnosis Osteoporosis- Primary Osteoporosis, unspecified [...] healing, subsequent encounter documented in this encounter [facility] note* Diagnosis Osteoporosis- Primary Osteoporosis, unspecified [...] healing, subsequent encounter documented in this encounter [facility] note* Diagnosis Osteoporosis- Primary Osteoporosis, unspecified [...] treatment, initial encounter documented in this encounter [facility] course Narrative No data available for this section [facility] Hospital Discharge instructions No data available for this section [facility] Progress note No data available for this section [facility] Reason for referral (narrative)* Outpatient Procedure (Routine) - Pending Review Specialty Diagnoses / Procedures Referred By Contac t Referred To Contact [facility] Diagnoses Radiculopathy, cervical region Procedures EMG(NEURO/NI) NERVE CONDUCTION STUDIES 9-10 STUDIES Mayur Cao MD [address] [facility] [address] [place] [address] [facility] [place] [address] [id number] Referral ID Status Reason Start Date Expiration Date Visits Requested Visits Authorized [id number] Pending Review Auto-Generat ed Referral 02/07/2022 02/07/2023 1 1 [facility] for referral (narrative)* Diagnostic Procedure Only (Routine) - Closed Specialty Diagnoses / Procedures Referred By Contac t Referred To Contact XR IMAGING Diagnoses Cervicalgia Arthrodesis status Adverse effect of treatment, initial encounter Procedures XR CERV GENERAL 2V AP/LAT RADEX SPINE CERVICAL 2 OR 3 VIEWS Adrián Pulido PA-C [address] [place] [address] Xr Imaging Referral ID Status Reason Start Date Expiration Date V isits Requested Visits Authorized [id number] Closed Auto-Generate d Referral 04/17/2022 05/17/2023 1 1 * MRI/CT (Routine) - Authorized Specialty Diagnoses / Procedures Referred By Contac t Referred To Contact MR IMAGING Diagnoses Arthrodesis status Adverse effect of treatment, initial encounter Procedures MRI THORACIC SPINE WO/W IVCON MRI SPINAL CANAL THORACIC W/O & W/CONTR MATRL Adrián Pulido PA-C [address] [place] [address] Mr Imaging Referral ID Status Reason Start Date Expiration Date Visits Requested Visits Authorized [id number] Authorized Auto-Generat ed Referral 2 05/17/2023 1 1 * MRI/CT (Routine) - Authorized Specialty Diagnoses / Procedures Referred By Contac t Referred To Contact MR IMAGING Diagnoses Cervicalgia Arthrodesis status Adverse effect of treatment, initial encounter Procedures MRI CERVICAL SPINE WO/W IVCON MRI SPINAL CANAL CERVICAL W/O & W/CONTR MATRL Adrián Pulido PA-C [address] [place] [address] Mr Imaging Referral ID Status Reason Start Date Expiration Date Visits Requested Visits Authorized [id number] Authorized Auto-Generat ed Referral 2 05/17/2023 1 1 * - Authorized Specialty Diagnoses / Procedures Referred By Contac t Referred To Contact Diagnoses Cervicalgia Arthrodesis status Adverse effect of treatment, initial encounter Procedures CONSULT TO PHYSICAL THERAPY Adrián Pulido PA-C [address] [place] [address] Referral ID Status Reason Start Date Expiration Date V isits Requested Visits Authorized [id number] Authorized 04/17/2022 07/16/2022 99 99 * Diagnostic Procedure Only (Routine) - Closed Specialty Diagnoses / Procedures Referred By Contac t Referred To Contact XR IMAGING Diagnoses Cervicalgia Arthrodesis status Adverse effect of treatment, initial encounter Procedures XR CERV OTHER 4V AP/LAT/FLX/EXT RADEX SPINE CERVICAL 4 OR 5 VIEWS Adrián Pulido PA-C [address] [place] [address] Xr Imaging Referral ID Status Reason Start Date Expiration Date V isits Requested Visits Authorized [id number] Closed Auto-Generate d Referral 04/17/2022 05/17/2023 1 1 [facility] for referral (narrative)* Diagnostic Procedure Only (Routine) - Pending Review Specialty Diagnoses / Procedures Referred By Contac t Referred To Contact XR IMAGING Diagnoses Age-related osteoporosis with current pathological fracture with routine healing, subsequent encounter Procedures XR LUMBAR GENERAL 3V AP/LAT/L5-S1 RADEX SPINE LUMBOSACRAL 2/3 VIEWS Leslie Monet MD [address] [place] [address] Xr Imaging Referral ID Status Reason Start Date Expiration Date Visits Requested Visits Authorized [id number] Pending Review Auto-Generat ed Referral 07/23/2022 08/22/2023 1 1 [facility] for referral (narrative)* Diagnostic Procedure Only (Routine) - Pending Review Specialty Diagnoses / Procedures Referred By Contac t Referred To Contact XR IMAGING Diagnoses Age-related osteoporosis with current pathological fracture with routine healing, subsequent encounter Other specified disorders of bone density and structure, unspecified site Procedures DXA-FOREARM SKELETON DXA BONE DENSITY STUDY 1/>SITES APPENDICLR Leslie Martini MD [address] [place] [address] Xr Imaging Referral ID Status Reason Start Date Expiration Date Visits Requested Visits Authorized [id number] Pending Review Auto-Generat ed Referral 10/17/2022 10/10/2023 1 1 [facility] for referral (narrative)* Diagnostic Procedure Only (Routine) - Closed Specialty Diagnoses / Procedures Referred By Contac t Referred To Contact XR IMAGING Diagnoses Closed stable burst fracture of third thoracic vertebra with routine healing, subsequent encounter Procedures XR SHOULDER LIMITED 2V AP/TRUE AP LEFT RADEX SHOULDER COMPLETE MINIMUM 2 [place] [address] [place] [address] Xr Imaging Referral ID Status Reason Start Date Expiration Date V isits Requested Visits Authorized [id number] Closed Auto-Generate d Referral 10/20/2022 11/19/2023 1 1 * Medication Prior Authorization - Authorized Specialty Diagnoses / Procedures Referred By Contac [place] [address] [place] [address] Referral ID Status Reason Start Date Expiration Date V isits Requested Visits Authorized [id number] Authorized 09/20/2022 10/20/2023 1 1 [facility] for referral (narrative)* Diagnostic Procedure Only (Routine) - Pending Review Specialty Diagnoses / Procedures Referred By Contac t Referred To Contact XR IMAGING Diagnoses Age-related osteoporosis with current pathological fracture with routine healing, subsequent encounter Hyperparathyroidism (HCC) Procedures DXA-AXIAL SKELETON Leslie Monet MD [address] [place] [address] [place] [address] Referral ID Status Reason Start Date Expiration Date Visits Requested Visits Authorized [id number] Pending Review Auto-Generat ed Referral 09/01/2024 11/25/2024 1 1 [facility] for referral (narrative)* Diagnostic Procedure Only (Routine) - Closed Specialty Diagnoses / Procedures Referred By Contac t Referred To Contact XR IMAGING Diagnoses Closed stable burst fracture of third thoracic vertebra with routine healing, subsequent encounter Procedures XR SHOULDER LIMITED 2V AP/TRUE AP LEFT RADEX SHOULDER COMPLETE MINIMUM [address] [place] [address] [address] [place] [address] Referral ID Status Reason Start Date Expiration Date V isits Requested Visits Authorized [id number] Closed Auto-Generate d Referral 10/20/2022 11/19/2023 1 1 [facility] for referral (narrative)* Diagnostic Procedure Only (Routine) - Closed Specialty Diagnoses / Procedures Referred By Contac t Referred To Contact XR IMAGING Diagnoses Age-related osteoporosis with current pathological fracture with routine healing, subsequent encounter Procedures XR LUMBAR GENERAL 3V AP/LAT/L5-S1 RADEX SPINE LUMBOSACRAL 2/3 VIEWS Leslie Monet MD [address] [place] [address] [place] [address] Referral ID Status Reason Start Date Expiration Date V isits Requested Visits Authorized [id number] Closed Auto-Generate d Referral 07/23/2022 08/22/2023 1 1 [facility] for referral (narrative)* Diagnostic Procedure Only (Routine) - Closed Specialty Diagnoses / Procedures Referred By Contac t Referred To Contact XR IMAGING Diagnoses Cervicalgia Arthrodesis status Adverse effect of treatment, initial encounter Procedures XR CERV OTHER 4V AP/LAT/FLX/EXT RADEX SPINE CERVICAL 4 OR 5 VIEWS Adrián Pulido PA-C [address] [place] [address] Xr Imaging [id number] Referral ID Status Reason Start Date Expiration Date V isits Requested Visits Authorized [id number] Closed Auto-Generate d Referral 04/17/2022 05/17/2023 1 1 [facility] for referral (narrative)No reason for [facility] N[facility]* Diagnostic Procedure Only (Routine) - Closed Specialty Diagnoses / Procedures Referred By Contac t Referred To Contact XR IMAGING Diagnoses Closed stable burst fracture of third thoracic vertebra with routine healing, subsequent encounter Procedures XR SHOULDER LIMITED 2V AP/TRUE AP LEFT RADEX SHOULDER COMPLETE MINIMUM 2 [place] [address] [place] [address] Xr Imaging [id number] Referral ID Status Reason Start Date Expiration Date V isits Requested Visits Authorized [id number] Closed Auto-Generate d Referral 10/20/2022 11/19/2023 1 1 [facility] for visit Narrative* Diagnostic Procedure Only (Routine) - Closed Specialty Diagnoses / Procedures Referred By Contac t Referred To Contact XR IMAGING Diagnoses Age-related osteoporosis with current pathological fracture with routine healing, subsequent encounter Procedures XR LUMBAR GENERAL 3V AP/LAT/L5-S1 RADEX SPINE LUMBOSACRAL 2/3 VIEWS Leslie Monet MD [address] [place] [address] [place] [address] Referral ID Status Reason Start Date Expiration Date V isits Requested Visits Authorized [id number] Closed Auto-Generate d Referral 07/23/2022 08/22/2023 1 1 [facility] for visit Narrative* Diagnostic Procedure Only (Routine) - Closed Specialty Diagnoses / Procedures Referred By Contac t Referred To Contact XR IMAGING Diagnoses Cervicalgia Arthrodesis status Adverse effect of treatment, initial encounter Procedures XR CERV GENERAL 2V AP/LAT RADEX SPINE CERVICAL 2 OR 3 VIEWS Adrián Pulido PA-C [address] [place] [address] [place] [address] Referral ID Status Reason Start Date Expiration Date V isits Requested Visits Authorized [id number] Closed Auto-Generate d Referral 04/17/2022 05/17/2023 1 1 [facility] Instructions Instruction Description Start Date Completed Advance Directives No Advanced Directives Records Found Advance Directive Response Recorded Date/ Time Advance Directives Yes December 28, 2015 10:28am Living Will Yes June 27, 2 022 4:52pm Power of Molder Floor No June 27, 2021 4:52pm Advance Directive Response Recorded Date/ Time Advance Directives Yes October 04 10:40am Living Will Yes October 04, 2021 1 0:40am Power of Molder Floor No October 04, 2021 10:40am Advance Directive Response Recorded Date/ Time Advance Directives Yes October 04 10:40am Living Will No November 26, 2021 2:15pm Power of Molder Floor No November 26 2:15pm Advance Directive Response Recorded Date/ Time Advance Directives Yes December 25, 2021 10:41am Living Will Yes December 25 10:41am Power of Molder Floor No December 25 10:41am Advance Directive Response Recorded Date/ Time Advance Directives Yes December 25, 2021 9:41am Living Will Yes December 25 9:41am Power of Molder Floor No December 25 9:41am Advance Directive Response Recorded Date/ Time Name of Medical Power of Molder Floor DOMINICK FERRARI July 13, 2023 2:40pm Advance Directives Yes December 25, 2021 10:41am Living Will Yes July 13, 2023 2:40pm Power of Molder Floor Yes July 12 2:40pm Advance Directive Response Recorded Date/ Time Living Will Yes July 13, 2023 2:40pm Do you have a Healthcare Power of Molder Floor? Yes July 13, 2023 2:40pm Living Will Yes June 24, 6:15pm Do you have a Healthcare Power of Molder Floor? Yes June 24, 2024 6:15pm Name of Medical Power of Molder Floor SON June 24, 2024 6:15pm Advance Directives Yes December 25, 2021 10:41am Advance Directive Response Recorded Date/ Time Living Will Yes June 24 6:15pm Do you have a Healthcare Power of Molder Floor? Yes June 24, 2024 6:15pm Name of Medical Power of Molder Floor SON June 24, 2024 6:15pm Advance Directives Yes December 25, 2021 10:41am Advance Directive Response Recorded Date/ Time Advance Directives Yes December 25, 2021 10:41am Assessments There may be information available, but it has not been provided by the sender. Review of System There may be information available, but it has not been provided by the sender. Family History No Family History Records Found Relationship Condition Age at Onset Recorded Date/T khari father Hypertension Unknown Arthritis Unknown Cerebrovascular accident (CVA) Unknown mother Cerebrovascular accident (CVA) Unknown Hypertension Unknown Alcoholism Unknown Summary Purpose Chief Complaint and Reason for Visit Chief Complaint RIGHT PETELA FX cervical spine Bilat wrist LT CARPAL TUNNEL RELEASE LT CARPAL TUNNEL RELEASE left wrist Reason for Visit CTS (carpal tunnel s yndrome) CTS (carpal tunnel syndrome) Orthopedic aftercare Chief Complaint Bilat wrist LT CARPAL TUNNEL RELEASE LT CARPAL TUNNEL RELEASE left wrist left wrist 6 M FU Reason for Visit CTS (carpal tunnel s yndrome) Orthopedic aftercare Orthopedic aftercare Atypical chest pain Cervical pain (neck) Cervical radiculopathy Muscular pain Shortness of breath Chronic back pain Chief Complaint LT CARPAL TUNNEL REL EASE LT CARPAL TUNNEL RELEASE left wrist left wrist 6 M FU discuss pain per TAWNY Reason for Visit Orthopedic aftercare Orthopedic aftercare Atypical chest pain Cervical pain (neck) Cervical radiculopathy Muscular pain Shortness of breath Chronic back pain Cervical pain (neck) Cervical radiculopathy Muscular pain Chronic back pain Chief Complaint left wrist left wrist 6 M FU discuss pain per TAWNY RIGHT KNEE xray RIGHT KNEE RIGHT KNEE LUMBER SPINE RIGHT KNEE LUMBAR PAIN Reason for Visit Orthopedic aftercare Orthopedic aftercare Atypical chest pain Cervical pain (neck) Cervical radiculopathy Muscular pain Shortness of breath Chronic back pain Cervical pain (neck) Cervical radiculopathy Muscular pain Chronic back pain Degenerative joint disease of right hip Degenerative scoliosis 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 joint disease of right hip Degenerative scoliosis 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 Chronic back pain Right knee DJD Chief Complaint left wrist 6 M FU discuss pain per TAWNY RIGHT KNEE xray RIGHT KNEE RIGHT KNEE LUMBER SPINE RIGHT KNEE LUMBAR PAIN lumbar spine RIGHT HIP DEGENERATIVE JOINT DISEASE OF RIGHT HIP Reason for Visit Orthopedic aftercare Atypical chest pain Cervical pain (neck) Cervical radiculopathy Muscular pain Shortness of breath Chronic back pain Cervical pain (neck) Cervical radiculopathy Muscular pain Chronic back pain Degenerative joint disease of right hip Degenerative scoliosis 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 joint disease of right hip Degenerative scoliosis 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 Chronic back pain Right knee DJD Chief Complaint RIGHT KNEE xray RIGHT KNEE RIGHT KNEE LUMBER SPINE RIGHT KNEE LUMBAR PAIN lumbar spine RIGHT HIP DEGENERATIVE JOINT DISEASE OF RIGHT HIP DEGENERATIVE JOINT DISEASE OF RIGHT HIP RT TOTAL HIP W MELONIE RT TOTAL HIP W MELONIE RT TOTAL HIP W MELONIE RT TOTAL HIP W MELONIE LUMB RADIC,DEGEN SCOLIOLIS,DDD/RX HERE right hip Reason for Visit Degenerative joint d isease of right hip Degenerative scoliosis 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 joint disease of right hip Degenerative scoliosis 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 Chronic back pain 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 Orthopedic aftercare Other acute postprocedural pain S/P total right hip arthroplasty Chief Complaint RIGHT HIP DEGENERATIVE JOINT DISEASE OF RIGHT HIP DEGENERATIVE JOINT DISEASE OF RIGHT HIP RT TOTAL HIP W MELONIE RT TOTAL HIP W MELONIE RT TOTAL HIP W MELONIE RT TOTAL HIP W MELONIE LUMB RADIC,DEGEN SCOLIOLIS,DDD/RX HERE right hip RIGHT HIP xray PREPROCEDURAL Reason for Visit S/P total right hip arthroplasty Orthopedic aftercare Other acute postprocedural pain 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 Chief Complaint DEGENERATIVE JOINT D ISEASE OF RIGHT HIP DEGENERATIVE JOINT DISEASE OF RIGHT HIP RT TOTAL HIP W MELONIE RT TOTAL HIP W MELONIE RT TOTAL HIP W MELONIE RT TOTAL HIP W MELONIE LUMB RADIC,DEGEN SCOLIOLIS,DDD/RX HERE right hip RIGHT HIP xray PREPROCEDURAL Reason for Visit S/P total right hip arthroplasty Orthopedic aftercare Other acute postprocedural pain 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 Chief Complaint DEGENERATIVE JOINT D ISEASE OF RIGHT HIP DEGENERATIVE JOINT DISEASE OF RIGHT HIP RT TOTAL HIP W MELONIE RT TOTAL HIP W MELONIE RT TOTAL HIP W MELONIE RT TOTAL HIP W MELONIE LUMB RADIC,DEGEN SCOLIOLIS,DDD/RX HERE right hip RIGHT HIP xray PREPROCEDURAL PREPROCEDURAL PAIN- COPY PCP PAIN LEFT LEG Reason for Visit S/P total right hip arthroplasty Orthopedic aftercare Other acute postprocedural pain 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 Chief Complaint LUMB RADIC,DEGEN SCO LIOLIS,DDD/RX HERE right hip RIGHT HIP xray PREPROCEDURAL PREPROCEDURAL PAIN- COPY PCP PAIN LEFT LEG Reason for Visit Other acute postproc edural pain 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 Chief Complaint RIGHT HIP xray PREPROCEDURAL PREPROCEDURAL PAIN- COPY PCP PAIN LEFT LEG Reason for Visit S/P total right hip arthroplasty Chief Complaint PREPROCEDURAL PREPROCEDURAL PAIN- COPY PCP PAIN LEFT LEG Chief Complaint PAIN- COPY PCP Chief Complaint PAIN- COPY PCP Gastro-esophageal reflux disease without esophagit Chief Complaint PAIN- COPY PCP Gastro-esophageal reflux disease without esophagit PAIN- COPY PCP Chief Complaint PAIN- COPY PCP Gastro-esophageal reflux disease without esophagit PAIN- COPY PCP SCREENING Chief Complaint SCREENING LEFT SHOULDER Reason for Visit Primary osteoarthrit is, left shoulder Left shoulder pain Chief Complaint SCREENING LEFT SHOULDER LEFT SHOULDER OSTEO LEFT SHOULDER Reason for Visit Primary osteoarthrit is, left shoulder Left shoulder pain Primary osteoarthritis, left shoulder Chief Complaint SCREENING LEFT SHOULDER LEFT SHOULDER OSTEO LEFT SHOULDER PREOP Left Reverse Total Shoulder Replace Left Reverse Total Shoulder Replace Reason for Visit Primary osteoarthrit is, left shoulder Left shoulder pain Primary osteoarthritis, left shoulder Primary osteoarthritis, left shoulder Chief Complaint SCREENING LEFT SHOULDER LEFT SHOULDER OSTEO LEFT SHOULDER PREOP Left Reverse Total Shoulder Replace Left Reverse Total Shoulder Replace left shoulder Room 3 left shoulder Reason for Visit Primary osteoarthrit is, left shoulder Left shoulder pain Primary osteoarthritis, left shoulder Primary osteoarthritis, left shoulder Primary osteoarthritis, left shoulder Primary osteoarthritis, left shoulder Chief Complaint SCREENING Chief Complaint Admit Date RIGHT SHOULDER April 12, 2024 10:51am RM 3 April 12, 2024 10:58am SCREENING April 15, 2024 11:52am RIGHT SHOULDER May 26, 2024 9 :38am RM 8 May 26, 2024 1 0:07am PRE- OP June 03, 2024 2 :40pm SOB June 15, 2024 7:50am ERAS, RIGHT SHOULDER SOFT TISSUE BI Febr uary 2024 3:04pm ERAS, RIGHT SHOULDER SOFT TISSUE BI Febr uary 2024 8:58pm ERAS, RIGHT SHOULDER SOFT TISSUE BI Febr uary 2024 9:56am ERAS, RIGHT SHOULDER SOFT TISSUE BI Febr uary 2024 9:41am ERAS, RIGHT SHOULDER SOFT TISSUE BI Febr uary 2024 10:23am 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 August 05, 2024 3:51pm Reason for Visit Admit Date Primary osteoarthritis, right shoulder D ecember 2023 10:51am Right shoulder pain April 12, 2024 10:51am Primary osteoarthritis, right shoulder J anuary 2024 9:38am Infection associated with pr osthesis of right shoulder joint June 24, 2024 3:04pm Joint infection June 24, 2024 3:04pm 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 June 24, 2024 3:04pm Chief Complaint Admit Date RIGHT SHOULDER May 26, 2024 9 :38am RM 8 May 26, 2024 1 0:07am PRE- OP June 03, 2024 2 :40pm SOB June 15, 2024 7:50am ERAS, RIGHT SHOULDER SOFT TISSUE BI Febr uary 2024 3:04pm ERAS, RIGHT SHOULDER SOFT TISSUE BI Febr uary 2024 8:58pm ERAS, RIGHT SHOULDER SOFT TISSUE BI Febr uary 2024 9:56am ERAS, RIGHT SHOULDER SOFT TISSUE BI Febr uary 2024 9:41am ERAS, RIGHT SHOULDER SOFT TISSUE BI Febr uary 2024 10:23am 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 August 05, 2024 3:51pm Reason for Visit Admit Date Primary osteoarthritis, right shoulder J anuary 2024 9:38am Infection associated with pr osthesis of right shoulder joint June 24, 2024 3:04pm Joint infection June 24, 2024 3:04pm 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 June 24, 2024 3:04pm Chief Complaint Admit Date 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 August 05, 2024 3:51pm Lumbar spine November 18, 2024 10:4 9am Room 1 November 18, 2024 11:3 0am Chief Complaint Admit Date Lumbar spine November 18, 2024 10:4 9am Room 1 November 18, 2024 11:3 0am cervical radiculopathy December 16, 2024 1:38pm Reason for Visit Admit Date Cervical radiculopathy November 18, 2024 1 0:49am Fusion of spine, cervical region November 182024 10:49am Reason for Referral Specialty Diagnoses / Procedures Referred By Sophia leonardo Referred To Contact MR IMAGING Diagnoses Arthrodesis status Adverse effect of treatment, initial encounter Procedures MRI THORACIC SPINE WO/W IVCON MRI SPINAL CANAL THORACIC W/O & W/CONTR RANDYL Adrián Pulido PA-C [address] [place] [id number] Mr Imaging Referral ID Status Reason Start Date Expiration Date V isits Requested Visits Authorized [id number] Closed Auto-Generate d Referral 04/17/2022 05/17/2023 1 1 Specialty Diagnoses / Procedures Referred By Contwarren t Referred To Contact MR IMAGING Diagnoses Cervicalgia Arthrodesis status Adverse effect of treatment, initial encounter Procedures MRI CERVICAL SPINE WO/W IVCON MRI SPINAL CANAL CERVICAL W/O & W/CONTR MATRL Adrián Pulido PA-C [address] [place] [address] Mr Imaging Referral ID Status Reason Start Date Expiration Date V isits Requested Visits Authorized [id number] Closed Auto-Generate d Referral 04/17/2022 05/17/2023 1 1 Specialty Diagnoses / Procedures Referred By Contac t Referred To Contact Neurosurgery Diagnoses Fusion of spine of cervicothoracic region Arthrodesis status Adverse effect of treatment, initial encounter Closed stable burst fracture of third thoracic vertebra with routine healing, subsequent encounter Procedures CONSULT TO NEUROSURGERY OFFICE/OUTPATIENT [facility] 60-74 MINUTES Adrián Pulido PA-C [address] [id number] Referral ID Status Reason Start Date Expiration Date Visits Requested Visits Authorized [id number] Authorized PCP Requested Referral 06/04/2022 09/02/2022 1 1 Specialty Diagnoses / Procedures Referred By Contac t Referred To Contact Diagnoses Age-related osteoporosis with current pathological fracture with routine healing, subsequent encounter Procedures CONSULT TO ENDO METABOLIC BONE OFFICE/OUTPATIENT [facility] 60-[place] [address] [place] [address] Referral ID Status Reason Start Date Expiration Date Visits Requested Visits Authorized [id number] Authorized PCP Requested Referral 06/23/2022 06/23/2023 1 1 Specialty Diagnoses / Procedures Referred By Contac t Referred To Contact Diagnoses Age-related osteoporosis with current pathological fracture with routine healing, subsequent encounter Abnormal SPEP Procedures CONSULT TO HEMATOLOGY/ONCOLOGY OFFICE/OUTPATIENT [facility] 60-74 MINUTES Leslie Monet MD [address] [place] [address] Referral ID Status Reason Start Date Expiration Date Visits Requested Visits Authorized [id number] Authorized PCP Requested Referral 08/05/2022 08/05/2023 1 1 Specialty Diagnoses / Procedures Referred By Contac t Referred To Contact CT IMAGING Diagnoses Arthrodesis status Procedures CT THORACIC SPINE WO IVCON CT THORACIC SPINE W/[place] [address] [address] [address] Ct Imaging [id number] Referral ID Status Reason Start Date Expiration Date Visits Requested Visits Authorized [id number] Authorized Auto-Generat ed Referral 01/19/2023 02/18/2024 1 1 Specialty Diagnoses / Procedures Referred By Contac t Referred To Contact CT IMAGING Diagnoses Spinal stenosis of cervical region Procedures CT CERVICAL SPINE WO IVCON CT CERVICAL SPINE W/[place] [address] [place] [address] Ct Imaging [id number] Referral ID Status Reason Start Date Expiration Date Visits Requested Visits Authorized [id number] Authorized Auto-Generat ed Referral 01/19/2023 02/18/2024 1 1 Specialty Diagnoses / Procedures Referred By Contac t Referred To Contact CT IMAGING Diagnoses 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 Procedures CT CHEST W IVCON DIAGNOSTIC COMPUTED TOMOGRAPHY THORAX W/[place] [id number] Imaging [id number] Referral ID Status Reason Start Date Expiration Date Visits Requested Visits Authorized [id number] Authorized Auto-Generat ed Referral 3 03/26/2024 1 1 Specialty Diagnoses / [facility]ING Diagnoses 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 Procedures CT ABD/PEL W IVCON CT ABD & PELVIS [place] [address] [facility] [place] [address] Ct Imaging [id number] Referral ID Status Reason Start Date Expiration Date Visits Requested Visits Authorized [id number] Authorized Auto-Generat ed Referral 03/26/2024 1 1 Medications Administered Section Active [...] section and content) DATE CREATED AUTHOR 01/19/2020 [facility] DATE CREATED AUTHOR AUTHOR'S ORGANIZ ATION 05/31/2022 [facility] DATE CREATED AUTHOR AUTHOR'S ORGANIZ ATION 10/27/2022 [facility] DATE CREATED AUTHOR AUTHOR'S ORGANIZ ATION 12/03/2022 [facility] DATE CREATED AUTHOR AUTHOR'S ORGANIZ ATION 09/25/2023 [facility] DATE CREATED AUTHOR AUTHOR'S ORGANIZ ATION 10/24/2023 [facility] DATE CREATED AUTHOR AUTHOR'S ORGANIZ ATION 08/03/2024 [facility] DATE CREATED AUTHOR AUTHOR'S ORGANIZ ATION 11/14/2024 [facility] DATE CREATED AUTHOR AUTHOR'S ORGANIZ ATION 12/26/2024 [facility] Goals (unrecognized section and content) Goals may be documented in a n alternate sectionGoals may be documented in an alternate sectionGoals may be documented in an alternate sectionGoals may be documented in an alternate sectionGoals may be documented in an alternate sectionGoals may be documented in an alternate sectionGoals may be documented in an alternate sectionGoals may be documented in an alternate sectionGoals may be documented in an alternate sectionGoals may be documented in an alternate sectionGoals may be documented in an alternate sectionGoals may be documented in an alternate sectionGoals may be documented in an alternate sectionGoals may be documented in an alternate sectionGoals may be documented in an alternate sectionGoals may be documented in an alternate sectionGoals may be documented in an alternate sectionGoals may be documented in an alternate section No data available for this section No data available for this section No data available for this sectionGoals may be documented in an alternate sectionGoals may be documented in an alternate sectionGoals may be documented in an alternate section Source Comments (unrecognize d section and content) In the event this informatio n is protected by the Federal Confidentiality of Alcohol and Drug Abuse Patient Records regulations: The Federal rules restrict any use of the information to criminally investigate or prosecute any alcohol or drug abuse patient.[facility] the event this information is protected by the Federal Confidentiality of Alcohol and Drug Abuse Patient Records regulations: The Federal rules restrict any use of the information to criminally investigate or prosecute any alcohol or drug abuse patient.[facility] HospitalIn the event this information is protected by the Federal Confidentiality of Alcohol and Drug Abuse Patient Records regulations: The Federal rules restrict any use of the information to criminally investigate or prosecute any alcohol or drug abuse patient.[facility] Hospital[facility] the event this information is protected by the Federal Confidentiality of Alcohol and Drug Abuse Patient Records regulations: The Federal rules restrict any use of the information to criminally investigate or prosecute any alcohol or drug abuse patient.[facility] Hospital[facility] the event this information is protected by the Federal Confidentiality of Alcohol and Drug Abuse Patient Records regulations: The Federal rules restrict any use of the information to criminally investigate or prosecute any alcohol or drug abuse patient.[facility] Hospital[facility] the event this information is protected by the Federal Confidentiality of Alcohol and Drug Abuse Patient Records regulations: The Federal rules restrict any use of the information to criminally investigate or prosecute any alcohol or drug abuse patient.[facility] HospitalIn the event this information is protected by the Federal Confidentiality of Alcohol and Drug Abuse Patient Records regulations: The Federal rules restrict any use of the information to criminally investigate or prosecute any alcohol or drug abuse patient.[facility] HospitalIn the event this information is protected by the Federal Confidentiality of Alcohol and Drug Abuse Patient Records regulations: The Federal rules restrict any use of the information to criminally investigate or prosecute any alcohol or drug abuse patient.[facility] HospitalIn the event this information is protected by the Federal Confidentiality of Alcohol and Drug Abuse Patient Records regulations: The Federal rules restrict any use of the information to criminally investigate or prosecute any alcohol or drug abuse patient.[facility] HospitalIn the event this information is protected by the Federal Confidentiality of Alcohol and Drug Abuse Patient Records regulations: The Federal rules restrict any use of the information to criminally investigate or prosecute any alcohol or drug abuse patient.[facility] HospitalIn the event this information is protected by the Federal Confidentiality of Alcohol and Drug Abuse Patient Records regulations: The Federal rules restrict any use of the information to criminally investigate or prosecute any alcohol or drug abuse patient.[facility] HospitalIn the event this information is protected by the Federal Confidentiality of Alcohol and Drug Abuse Patient Records regulations: The Federal rules restrict any use of the information to criminally investigate or prosecute any alcohol or drug abuse patient.[facility] HospitalIn the event this information is protected by the Federal Confidentiality of Alcohol and Drug Abuse Patient Records regulations: The Federal rules restrict any use of the information to criminally investigate or prosecute any alcohol or drug abuse patient.[facility] HospitalIn the event this information is protected by the Federal Confidentiality of Alcohol and Drug Abuse Patient Records regulations: The Federal rules restrict any use of the information to criminally investigate or prosecute any alcohol or drug abuse patient.[facility] HospitalIn the event this information is protected by the Federal Confidentiality of Alcohol and Drug Abuse Patient Records regulations: The Federal rules restrict any use of the information to criminally investigate or prosecute any alcohol or drug abuse patient.[facility] HospitalIn the event this information is protected by the Federal Confidentiality of Alcohol and Drug Abuse Patient Records regulations: The Federal rules restrict any use of the information to criminally investigate or prosecute any alcohol or drug abuse patient.[facility] HospitalIn the event this information is protected by the Federal Confidentiality of Alcohol and Drug Abuse Patient Records regulations: The Federal rules restrict any use of the information to criminally investigate or prosecute any alcohol or drug abuse patient.[facility] HospitalIn the event this information is protected by the Federal Confidentiality of Alcohol and Drug Abuse Patient Records regulations: The Federal rules restrict any use of the information to criminally investigate or prosecute any alcohol or drug abuse patient.[facility] HospitalIn the event this information is protected by the Federal Confidentiality of Alcohol and Drug Abuse Patient Records regulations: The Federal rules restrict any use of the information to criminally investigate or prosecute any alcohol or drug abuse patient.[facility] HospitalIn the event this information is protected by the Federal Confidentiality of Alcohol and Drug Abuse Patient Records regulations: The Federal rules restrict any use of the information to criminally investigate or prosecute any alcohol or drug abuse patient.[facility] HospitalIn the event this information is protected by the Federal Confidentiality of Alcohol and Drug Abuse Patient Records regulations: The Federal rules restrict any use of the information to criminally investigate or prosecute any alcohol or drug abuse patient.[facility] HospitalIn the event this information is protected by the Federal Confidentiality of Alcohol and Drug Abuse Patient Records regulations: The Federal rules restrict any use of the information to criminally investigate or prosecute any alcohol or drug abuse patient.[facility] HospitalIn the event this information is protected by the Federal Confidentiality of Alcohol and Drug Abuse Patient Records regulations: The Federal rules restrict any use of the information to criminally investigate or prosecute any alcohol or drug abuse patient.[facility] HospitalIn the event this information is protected by the Federal Confidentiality of Alcohol and Drug Abuse Patient Records regulations: The Federal rules restrict any use of the information to criminally investigate or prosecute any alcohol or drug abuse patient.[facility] HospitalIn the event this information is protected by the Federal Confidentiality of Alcohol and Drug Abuse Patient Records regulations: The Federal rules restrict any use of the information to criminally investigate or prosecute any alcohol or drug abuse patient.[facility] HospitalIn the event this information is protected by the Federal Confidentiality of Alcohol and Drug Abuse Patient Records regulations: The Federal rules restrict any use of the information to criminally investigate or prosecute any alcohol or drug abuse patient.[facility] HospitalIn the event this information is protected by the Federal Confidentiality of Alcohol and Drug Abuse Patient Records regulations: The Federal rules restrict any use of the information to criminally investigate or prosecute any alcohol or drug abuse patient.[facility] HospitalIn the event this information is protected by the Federal Confidentiality of Alcohol and Drug Abuse Patient Records regulations: The Federal rules restrict any use of the information to criminally investigate or prosecute any alcohol or drug abuse patient.[facility] HospitalIn the event this information is protected by the Federal Confidentiality of Alcohol and Drug Abuse Patient Records regulations: The Federal rules restrict any use of the information to criminally investigate or prosecute any alcohol or drug abuse patient.[facility] HospitalIn the event this information is protected by the Federal Confidentiality of Alcohol and Drug Abuse Patient Records regulations: The Federal rules restrict any use of the information to criminally investigate or prosecute any alcohol or drug abuse patient.[facility] HospitalIn the event this information is protected by the Federal Confidentiality of Alcohol and Drug Abuse Patient Records regulations: The Federal rules restrict any use of the information to criminally investigate or prosecute any alcohol or drug abuse patient.[facility] HospitalIn the event this information is protected by the Federal Confidentiality of Alcohol and Drug Abuse Patient Records regulations: The Federal rules restrict any use of the information to criminally investigate or prosecute any alcohol or drug abuse patient.[facility] HospitalIn the event this information is protected by the Federal Confidentiality of Alcohol and Drug Abuse Patient Records regulations: The Federal rules restrict any use of the information to criminally investigate or prosecute any alcohol or drug abuse patient.[facility] the event this information is protected by the Federal Confidentiality of Alcohol and Drug Abuse Patient Records regulations: The Federal rules restrict any use of the information to criminally investigate or prosecute any alcohol or drug abuse patient.[facility] HospitalIn the event this information is protected by the Federal Confidentiality of Alcohol and Drug Abuse Patient Records regulations: The Federal rules restrict any use of the information to criminally investigate or prosecute any alcohol or drug abuse patient.[facility] HospitalIn the event this information is protected by the Federal Confidentiality of Alcohol and Drug Abuse Patient Records regulations: The Federal rules restrict any use of the information to criminally investigate or prosecute any alcohol or drug abuse patient.[facility] the event this information is protected by the Federal Confidentiality of Alcohol and Drug Abuse Patient Records regulations: The Federal rules restrict any use of the information to criminally investigate or prosecute any alcohol or drug abuse patient.[facility] HospitalIn the event this information is protected by the Federal Confidentiality of Alcohol and Drug Abuse Patient Records regulations: The Federal rules restrict any use of the information to criminally investigate or prosecute any alcohol or drug abuse patient.[facility] HospitalIn the event this information is protected by the Federal Confidentiality of Alcohol and Drug Abuse Patient Records regulations: The Federal rules restrict any use of the information to criminally investigate or prosecute any alcohol or drug abuse patient.[facility] HospitalIn the event this information is protected by the Federal Confidentiality of Alcohol and Drug Abuse Patient Records regulations: The Federal rules restrict any use of the information to criminally investigate or prosecute any alcohol or drug abuse patient.[facility] HospitalIn the event this information is protected by the Federal Confidentiality of Alcohol and Drug Abuse Patient Records regulations: The Federal rules restrict any use of the information to criminally investigate or prosecute any alcohol or drug abuse patient.[facility] HospitalIn the event this information is protected by the Federal Confidentiality of Alcohol and Drug Abuse Patient Records regulations: The Federal rules restrict any use of the information to criminally investigate or prosecute any alcohol or drug abuse patient.[facility] HospitalIn the event this information is protected by the Federal Confidentiality of Alcohol and Drug Abuse Patient Records regulations: The Federal rules restrict any use of the information to criminally investigate or prosecute any alcohol or drug abuse patient.[facility] HospitalIn the event this information is protected by the Federal Confidentiality of Alcohol and Drug Abuse Patient Records regulations: The Federal rules restrict any use of the information to criminally investigate or prosecute any alcohol or drug abuse patient.[facility] HospitalIn the event this information is protected by the Federal Confidentiality of Alcohol and Drug Abuse Patient Records regulations: The Federal rules restrict any use of the information to criminally investigate or prosecute any alcohol or drug abuse patient.[facility] HospitalIn the event this information is protected by the Federal Confidentiality of Alcohol and Drug Abuse Patient Records regulations: The Federal rules restrict any use of the information to criminally investigate or prosecute any alcohol or drug abuse patient.[facility] HospitalIn the event this information is protected by the Federal Confidentiality of Alcohol and Drug Abuse Patient Records regulations: The Federal rules restrict any use of the information to criminally investigate or prosecute any alcohol or drug abuse patient.[facility] HospitalIn the event this information is protected by the Federal Confidentiality of Alcohol and Drug Abuse Patient Records regulations: The Federal rules restrict any use of the information to criminally investigate or prosecute any alcohol or drug abuse patient.[facility] HospitalIn the event this information is protected by the Federal Confidentiality of Alcohol and Drug Abuse Patient Records regulations: The Federal rules restrict any use of the information to criminally investigate or prosecute any alcohol or drug abuse patient.[facility] HospitalIn the event this information is protected by the Federal Confidentiality of Alcohol and Drug Abuse Patient Records regulations: The Federal rules restrict any use of the information to criminally investigate or prosecute any alcohol or drug abuse patient.[facility] HospitalIn the event this information is protected by the Federal Confidentiality of Alcohol and Drug Abuse Patient Records regulations: The Federal rules restrict any use of the information to criminally investigate or prosecute any alcohol or drug abuse patient.[facility] Reason for Visit (unrecogniz ed section [...] STUDIES Mayur Cao MD [address] [place] [address] Neu[facility] [place] [address] [place] [address] Referral ID Status Reason Start Date Expiration Date V isits Requested Visits Authorized [id number] Closed Auto-Generate d Referral 02/07/2022 02/07/2023 1 1 Reason Comments [facility] Surgery clearance Reason Comments Medication Problem Reason Comments New Patient Neck Pain Specialty Diagnoses / Procedures Referred By Contac t Referred To Contact MR IMAGING Diagnoses Arthrodesis status Adverse effect of treatment, initial encounter Procedures MRI THORACIC SPINE WO/W IVCON MRI SPINAL CANAL THORACIC W/O & W/CONTR MATRAdrián Perales PA-C [address] [place] [address] Mr Imaging Referral ID Status Reason Start Date Expiration Date V isits Requested Visits Authorized [id number] Closed Auto-Generate d Referral 04/17/2022 05/17/2023 1 1 Specialty Diagnoses / Procedures Referred By Contac t Referred To Contact MR IMAGING Diagnoses Cervicalgia Arthrodesis status Adverse effect of treatment, initial encounter Procedures MRI CERVICAL SPINE WO/W IVCON MRI SPINAL CANAL CERVICAL W/O & W/CONTR Adrián Nolasco PA-C [address] [place] [address] Mr Imaging Referral ID Status Reason Start Date Expiration Date V isits Requested Visits Authorized [id number] Closed Auto-Generate d Referral 04/17/2022 05/17/2023 1 [...] MDM 60-74 MINUTES Adrián Pulido PA-C [address] [place] [address] Referral ID Status Reason Start Date Expiration Date V isits Requested Visits Authorized [id number] Closed PCP Requested Referral 06/04/2022 09/02/2022 1 1 Reason Comments Consult Specialty Diagnoses / Procedures Referred By Contac t Referred To Contact Diagnoses Age-related osteoporosis with current pathological fracture with routine healing, subsequent encounter Procedures CONSULT TO ENDO METABOLIC BONE OFFICE/OUTPATIENT [facility] 60-[place] [address] [place] [address] Referral ID Status Reason Start Date Expiration Date V isits Requested Visits Authorized [id number] Closed PCP Requested Referral 06/23/2022 06/23/2023 1 1 Reason Comments Results Specialty Diagnoses / Procedures Referred By Contac t Referred To Contact Diagnoses Age-related osteoporosis with current pathological fracture with routine healing, subsequent encounter Abnormal SPEP Procedures CONSULT TO HEMATOLOGY/ONCOLOGY OFFICE/OUTPATIENT [facility] 60-74 MINUTES Leslie Monet MD [address] [place] [address] Referral ID Status Reason Start Date Expiration Date V isits Requested Visits Authorized [id number] Closed PCP Requested Referral 08/05/2022 08/05/2023 1 [...] COMPUTED TOMOGRAPHY THORAX W/[place] [address] [place] [address] [place] [address] Referral ID Status Reason Start Date Expiration Date V isits Requested Visits Authorized [id number] Closed Auto-Generate d Referral 02/25/2023 03/26/2024 [address] Specialty Diagnoses / Procedures Referred By Contac t Referred To Contact CT IMAGING Diagnoses 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 Procedures CT CHEST W IVCON DIAGNOSTIC COMPUTED TOMOGRAPHY THORAX W/[place] [address] [place] [address] [place] [address] Reason Comments Closed stable burst frature of third tho racic vertebra with Reason Comments Established Patient Reason Comments Outside Lab Results Dexa scan 2022 Reason Comments Follow Up Reason Comments Consult New Patient Reason Comments Orders Reason Comments CAM Order Reason Comments CAM Order Request Reason Comments Prolia Injection Reason Comments Patient Update Care Teams (unrecognized sec tion and content) Manufacturers Service Representative Relationship Specialty Start Date End Date Luis Alberto Ferrari MD [address] [place] [address] PCP - General Family Practice 05/31/19 Manufacturers Service Representative Relationship Specialty Start Date End Date Luis Alberto Ferrari MD [address] [place] [address] PCP - General Family Medicine 05/31/19 Manufacturers Service Representative Relationship Specialty Start Date End Date Luis Alberto Ferrari MD [address] [place] [address] PCP - General Family Medicine 05/31/19 Manufacturers Service Representative Relationship Specialty Start Date End Date Luis Alberto Ferrari MD [address] [facility] [place] [address] PCP - General Family Medicine 05/31/19 Manufacturers Service Representative Relationship Specialty Start Date End Date Luis Alberto Ferrari MD [address] [place] [address] PCP - General Family Medicine 05/31/19 Manufacturers Service Representative Relationship Specialty Start Date End Date Luis Alberto Ferrari MD [address] [facility] [place] [address] PCP - General Family Medicine 05/31/19 Team Status: Active Member Role Status Dates Dr. Claudy Saenz MD Family Provider Active Mike Hopper DO Primary Care Provider Active Team Status: Active Member Role Status Dates Mike Hopper , DO Primary Care Provider Active Dr. Claudy Ugalde MD Attending Provider Active Tj GUTIERREZ PA-C Referring Provider Active Team Status: Inactive Member Role Status Dates Mike Carmencita Ruchi , DO Primary Care Provider Active Tj GUTIERREZ PA-C Attending Provider, Referring Pr ovider Active Team Status: Inactive Member Role Status Dates Mike Hopper , DO Primary Care Provider Active Dr. Marion Christianson MD Attending Provider, Referring Pr ovider Active Team Status: Inactive Member Role Status Dates Mike Hopper , DO Primary Care Provider Active Dr. Hetal Mccarthy MD Attending Provider, Referring Provider Active Team Status: Inactive Member Role Status Dates Mike Hopper , DO Primary Care Provider Active Dr. Dejan Ferrara MD Attending Provider Active Manufacturers Service Representative Relationship Specialty Start Date End Date Luis Alberto Ferrari MD [address] [facility] [place] [place] [address] PCP - General Family Medicine 05/31/19 Manufacturers Service Representative Relationship Specialty Start Date End Date Luis Alberto Ferrari MD [address] [facility] [place] [address] PCP - General Family Medicine 05/31/19 Manufacturers Service Representative Relationship Specialty Start Date End Date Luis Alberto Ferrari MD [address] [facility] [place] [address] PCP - General Family Medicine 05/31/19 Manufacturers Service Representative Relationship Specialty Start Date End Date Mike Hopper, DO [address] [facility] [address] [place] [address] PCP - General Family Medicine 06/24/22 Manufacturers Service Representative Relationship Specialty Start Date End Date Mike Hopper, DO [address] [facility] [address] [place] [address] PCP - General Family Medicine 06/24/22 Manufacturers Service Representative Relationship Specialty Start Date End Date Mike Hopper, [address] [place] [address] PCP - General Family Medicine 06/24/22 Team Status: Active Member Role Status Dates Mike Hopper DO Primary Care Provider Active Dr. Marion Christianson MD Attending Provider, Referring [facility] Active Manufacturers Service Representative Relationship Specialty Start Date End Date Ruchi, Mike Carmencita, DO [address] [place] [address] PCP - General Family Medicine 06/24/22 Manufacturers Service Representative Relationship Specialty Start Date End Date RuchiMike garibay, DO [address] [place] [address] PCP - General Family Medicine 06/24/22 Team Status: Inactive Member Role Status Dates Mike Hopper DO Primary Care Provider Active Dr. Bhargav Piper MD Attending Provider, [facility] Active Manufacturers Service Representative Relationship Specialty Start Date End Date Ruchi, Mike M, DO [address] [place] [address] PCP - General Family Medicine 06/24/22 Manufacturers Service Representative Relationship Specialty Start Date End Date Jm Hopperistin Carmencita, DO [address] [place] [address] PCP - General Family Medicine 06/24/22 Manufacturers Service Representative Relationship Specialty Start Date End Date Ruchi Mike Carmencita, DO [address] [place] [address] PCP - General Family Medicine 06/24/22 Team Status: Inactive Member Role Status Dates Mike Hopper DO Primary Care Provider Active LEW NELSON Attending Provider Active Manufacturers Service Representative Relationship Specialty Start Date End Date RuchiMike fuentes, DO [address] [place] [address] PCP - General Family Medicine 06/24/22 Manufacturers Service Representative Relationship Specialty Start Date End Date Mike Hopper DO [address] [place] [address] PCP - General Family Medicine 06/24/22 Manufacturers Service Representative Relationship Specialty Start Date End Date Mike Hopper DO [address] [place] [address] PCP - General Family Medicine 06/24/22 Manufacturers Service Representative Relationship Specialty Start Date End Date Mike Hopper DO [address] [place] [address] PCP - General Family Medicine 06/24/22 Manufacturers Service Representative Relationship Specialty Start Date End Date Mike Hopper DO [address] [place] [address] PCP - General Family Medicine 06/24/22 Manufacturers Service Representative Relationship Specialty Start Date End Date Mike Hopper DO [address] [place] [address] PCP - General Family Medicine 06/24/22 Manufacturers Service Representative Relationship Specialty Start Date End Date Mike Hopper DO [address] [place] [address] PCP - General Family Medicine 06/24/22 Manufacturers Service Representative Relationship Specialty Start Date End Date Mike Hopper DO [address] [place] [address] PCP - General Family Medicine 06/24/22 Wisam Mills MD [address] [place] [address] Hematology/Oncology 02/25/23 Manufacturers Service Representative Relationship Specialty Start Date End Date Mike Hopper DO [address] [place] [address] PCP - General Family Medicine 06/24/22 Wisam Mills MD [address] [place] [address] Hematology/Oncology 02/25/23 Manufacturers Service Representative Relationship Specialty Start Date End Date Mike Hopper DO [address] [place] [address] PCP - General Family Medicine 06/24/22 Wisam Mills MD [address] [place] [address] Hematology/Oncology 02/25/23 Manufacturers Service Representative Relationship Specialty Start Date End Date Mike Hopper DO [address] [place] [address] PCP - General Family Medicine 06/24/22 Wisam Mills MD [address] [place] [address] Hematology/Oncology 02/25/23 Manufacturers Service Representative Relationship Specialty Start Date End Date Mike Hopper DO [address] [place] [address] PCP - General Family Medicine 06/24/22 Wisam Mills MD [address] [place] [place], [place] [address] Hematology/Oncology 02/25/23 Manufacturers Service Representative Relationship Specialty Start Date End Date Mike Hopper DO [address] [facility] [address] [place] [address] PCP - General Family Medicine 06/24/22 Wisam Mills MD [address] [place] [address] Hematology/Oncology 02/25/23 Manufacturers Service Representative Relationship Specialty Start Date End Date Mike Hopper DO [address] [facility] [address] [place] [address] PCP - General Family Medicine 06/24/22 Wisam Mills MD [address] [place], [place] [address] Hematology/Oncology 02/25/23 Team Status: Inactive Member Role Status Dates Mike Hopper DO Primary Care Provider, Referring Provider Active Gama Stout MD Attending Provider Active Team Status: Inactive Member Role Status Dates Mike Hopper DO Primary Care Provider Active AUSTIN Woodward Attending Provider, Referring Pr ovider Active Team Status: Active Member Role Status Dates Dr. Claudy Saenz MD Family Provider Active AUSTIN Woodward Primary Care Provider Active Team Status: Inactive Member Role Status Dates Mike Hopper DO Referring Provider Active Gama Stout MD Attending Provider Active AUSTIN Woodward Primary Care Provider Active Team Status: Inactive Member Role Status Dates Gama Stout MD Attending Provider, Referring Prov ider Active AUSTIN Woodward Primary Care Provider Active Manufacturers Service Representative Relationship Specialty Start Date End Date Mike Hopper, DO [address] [facility] [address] [place] [address] PCP - General Family Medicine 06/24/22 Wisam Mills MD [address] [facility] [place] [address] Hematology/Oncology 02/25/23 Team Status: Active Member Role Status Dates Krystin العراقي MAID HOUSEKEEPER-C Primary Care Provider Active Dr. Nilesh Schwartz MD Attending Provider Active Gama Stout MD Referring Provider Active Team Status: Active Member Role Status Dates Krystin العراقي NP-C Primary Care Provider Active Gama Stout MD Attending Provider, Referring Provider, Other Provider Active Team Status: Inactive Member Role Status Dates Krystin العراقي MAID HOUSEKEEPER-C Primary Care Provider Active Gama Stout MD Attending Provider, Referring Prov ider Active Manufacturers Service Representative Relationship Specialty Start Date End Date Mike Hopper DO [address] [facility] [address] [place] [address] PCP - General Family Medicine 06/24/22 Wisam Mills MD [address] [facility] [place] [address] Hematology/Oncology 02/25/23 Team Status: Inactive Member Role Status Dates Krystin العراقي NP-C Primary Care Provider, Referring Provider Active Gama Stout MD Attending Provider Active Team Status: Inactive Member Role Status Dates Krystin العراقي MAID HOUSEKEEPER-C Primary Care Provider Active Dr. Nilesh Schwartz MD Attending Provider Active Team Status: Inactive Member Role Status Dates Krystin العراقي MAID HOUSEKEEPER-C Primary Care Provider Active Dr. Hetal Mccarthy MD Attending Provider, Referring Provider Active Team Status: Active Member Role Status Dates Krystin العراقي MAID HOUSEKEEPER-C Primary Care Provider Active Dr. Marion Christianson MD Attending Provider, Referring Pr ovider Active Team Status: Inactive Member Role Status Dates Krystin Henrry , MAID HOUSEKEEPER-C Primary Care Provider Active Dr. Marion Christianson MD Attending Provider, Referring Pr ovider Active Manufacturers Service Representative Relationship Specialty Start Date End Date Mike Hopper DO [address] [place] [address] PCP - General Family Medicine 06/24/22 Wisam Mills MD [address] [place] [address] Hematology/Oncology 02/25/23 Manufacturers Service Representative Relationship Specialty Start Date End Date Mike Hopper DO [address] [place] [address] PCP - General Family Medicine 06/24/22 Wisam Mills MD [address] [place] [address] Hematology/Oncology 02/25/23 Manufacturers Service Representative Relationship Specialty Start Date End Date Mike Hopper DO [address] [place] [address] PCP - General Family Medicine 06/24/22 Wisam Mills MD [address] [place] [address] Hematology/Oncology 02/25/23 Manufacturers Service Representative Relationship Specialty Start Date End Date Mike Hopper DO [address] [place] [address] PCP - General Family Medicine 06/24/22 Wisam Mills MD [address] [place] [address] Hematology/Oncology 02/25/23 Manufacturers Service Representative Relationship Specialty Start Date End Date Mike Hopper DO [address] [place] [address] PCP - General Family Medicine 06/24/22 Wisam Mills MD [address] [place] [address] Hematology/Oncology 02/25/23 Manufacturers Service Representative Relationship Specialty Start Date End Date Mike Hopper DO [address] [place] [address] PCP - General Family Medicine 06/24/22 Wisam Mills MD [address] [place] [address] Hematology/Oncology 02/25/23 Manufacturers Service Representative Relationship Specialty Start Date End Date Mike Hopper DO [address] [place] [address] PCP - General Family Medicine 06/24/22 Wisam Mills MD [address] [place] [address] Hematology/Oncology 02/25/23 Manufacturers Service Representative Relationship Specialty Start Date End Date Mike Hopper DO [address] [place] [address] PCP - General Family Medicine 06/24/22 Wisam Mills MD [address] [place], [place] [address] Hematology/Oncology 02/25/23 Manufacturers Service Representative Relationship Specialty Start Date End Date Mike Hopper CarmencitaDO [address] [facility] [address] [place], [place] [address] PCP - General Family Medicine 06/24/22 Manufacturers Service Representative Relationship Specialty Start Date End Date Mike Hopper DO [address] [facility] [address] [place], [place] [address] PCP - General Family Medicine 06/24/22 Manufacturers Service Representative Relationship Specialty Start Date End Date Luis Alberto Ferrari MD [address] [facility], [place] [id number] PCP - General Family Medicine 05/31/19 06/23/22 Team Status: Inactive Member Role Status Dates Mike Hopper DO Primary Care Provider, Attending Provider Active Manufacturers Service Representative Relationship Specialty Start Date End Date Mike Hopper DO PCP - General Family Medicine 06/24/22 Wisam Mills MD [address] [facility], [place] [address] Hematology/Oncology 02/25/23 Team Status: Active Member Role Status Dates AUSTIN Woodward Primary Care Provider Active Team Status: Inactive Member Role Status Dates AUSTIN Woodward Primary Care Provider Active Start: April 12, 2024 End: April 12, 2024 AUSTIN Woodward Referring Provider Active Start: April 12, 2024 End: April 12, 2024 Gama Stout MD Attending Provider Active St art: April 12, 2024 End: April 12, 2024 Team Status: Inactive Member Role Status Dates Krystin Henrry , MAID HOUSEKEEPER-C Primary Care Provider Active Start: April 12, 2024 End: April 12, 2024 Dr. Nilesh Schwartz MD Attending Provider Active S tart: April 12, 2024 End: April 12, 2024 Team Status: Inactive Member Role Status Dates Krystin العراقي MAID HOUSEKEEPER-C Primary Care Provider Active Start: April 15, 2024 End: April 15, 2024 Krystin العراقي MAID HOUSEKEEPER-C Attending Provider Active Start: April 15, 2024 End: April 15, 2024 Krystin العراقي MAID HOUSEKEEPER-C Referring Provider Active Start: April 15, 2024 End: April 15, 2024 Team Status: Inactive Member Role Status Dates Krystin العراقي MAID HOUSEKEEPER-C Primary Care Provider Active Start: May 26, 2024 End: May 26, 2024 Krystin العراقي MAID HOUSEKEEPER-C Referring Provider Active Start: May 26, 2024 End: May 26, 2024 Gama Stout MD Attending Provider Active St art: May 26, 2024 End: May 26, 2024 Team Status: Inactive Member Role Status Dates Krystin العراقي MAID HOUSEKEEPER-C Primary Care Provider Active Start: May 26, 2024 End: May 26, 2024 Dr. Nilesh Schwartz MD Attending Provider Active S tart: May 26, 2024 End: May 26, 2024 Team Status: Inactive Member Role Status Dates Krystin العراقي MAID HOUSEKEEPER-C Primary Care Provider Active Start: May 27, 2024 End: May 27, 2024 Dr. Dejan Ferrara MD Attending Provider Active Start: May 27, 2024 End: May 27, 2024 Dr. Dejan Ferrara MD Referring Provider Active Start: May 27, 2024 End: May 27, 2024 Team Status: Inactive Member Role Status Dates Krystin العراقي MAID HOUSEKEEPER-C Primary Care Provider Active Start: June 03, 2024 End: June 03, 2024 Krystin العراقي MAID HOUSEKEEPER-C Attending Provider Active Start: June 03, 2024 End: June 03, 2024 Krystin العراقي MAID HOUSEKEEPER-C Referring Provider Active Start: June 03, 2024 End: June 03, 2024 Team Status: Inactive Member Role Status Dates Krystin العراقي MAID HOUSEKEEPER-C Primary Care Provider Active Start: June 15, 2024 End: June 15, 2024 Krystin العراقي NP-C Attending Provider Active Start: June 15, 2024 End: June 15, 2024 Krystin العراقي NP-C Referring Provider Active Start: June 15, 2024 End: June 15, 2024 Team Status: Active Member Role Status Dates Krystin العراقي MAID HOUSEKEEPER-C Primary Care Provider Active Start: June 15, 2024 Dr. Nilesh Schwartz MD Attending Provider Active S tart: June 15, 2024 Team Status: Inactive Member Role Status Dates Krystin العراقي MAID HOUSEKEEPER-C Primary Care Provider Active Start: June 24, 2024 End: June 28, 2024 Dr. Dejan Ferrara MD Admit Provider Active Sta rt: June 24, 2024 End: June 28, 2024 Dr. Dejan Ferrara MD Attending Provider Active Start: June 24, 2024 End: June 28, 2024 Dr. Dejan Ferrara MD Referring Provider Active Start: June 24, 2024 End: June 28, 2024 Dr. Audrey Healy MD Other Provider Active Star t: June 24, 2024 End: June 28, 2024 Zak Michaels MD Other Provider Active Start: 2024 End: June 28, 2024 Dr. Jersey Irwin MD Other Provider Active Start: June 24, 2024 End: June 28, 2024 Dr. Ron Shaikh MD Other Provider Active Start: June 24, 2024 End: June 28, 2024 Team Status: Active Member Role Status Dates Krystin العراقي NP-C Primary Care Provider Active Start: June 24, 2024 Dr. Dejan Ferrara MD Admit Provider Active Sta rt: June 24, 2024 Dr. Dejan Ferrara MD Referring Provider Active Start: June 24, 2024 Dr. Dejan Ferrara MD Other Provider Active Sta rt: June 24, 2024 Dr. Isra Henry DO Other Provider Active Start: June 24, 2024 Dr. Audrey Healy MD Other Provider Active Star t: June 24, 2024 Zak Michaels MD Other Provider Active Start: 2024 Dr. Jersey Irwin MD Other Provider Active Start: June 24, 2024 Dr. Angela Govea MD Attending Provider Active Start: June 24, 2024 Team Status: Active Member Role Status Dates Krystin العراقي NP-C Primary Care Provider Active Start: June 25, 2024 Dr. Dejan Ferrara MD Admit Provider Active Sta rt: June 25, 2024 Dr. Dejan Ferrara MD Other Provider Active Sta rt: June 25, 2024 Dr. Isra Henry DO Attending Provider Active Start: June 25, 2024 Dr. Isra Henry DO Other Provider Active Start: June 25, 2024 Dr. Audrey Healy MD Other Provider Active Star t: June 25, 2024 Zak Michaels MD Other Provider Active Start: 2024 Dr. Jersey Irwin MD Other Provider Active Start: June 25, 2024 Dr. Ron Shaikh MD Other Provider Active Start: June 25, 2024 Team Status: Active Member Role Status Dates Krystin العراقي NP-C Primary Care Provider Active Start: June 26, 2024 Dr. Dejan Ferrara MD Admit Provider Active Sta rt: June 26, 2024 Dr. Dejan Ferrara MD Other Provider Active Sta rt: June 26, 2024 Dr. Isra Henry DO Attending Provider Active Start: June 26, 2024 Dr. Isra Henry DO Other Provider Active Start: June 26, 2024 Dr. Audrey Healy MD Other Provider Active Star t: June 26, 2024 Zak Michaels MD Other Provider Active Start: 2024 Dr. Jersey Irwin MD Other Provider Active Start: June 26, 2024 Dr. Ron Shaikh MD Other Provider Active Start: June 26, 2024 Team Status: Active Member Role Status Dates Krystin العراقي NP-C Primary Care Provider Active Start: June 27, 2024 Dr. Dejan Ferrara MD Admit Provider Active Sta rt: June 27, 2024 Dr. Dejan Ferrara MD Other Provider Active Sta rt: June 27, 2024 Dr. Audrey Healy MD Other Provider Active Star t: June 27, 2024 Zak Michaels MD Other Provider Active Start: 2024 Dr. Jersey Irwin MD Attending Provider Active Start: June 27, 2024 Dr. Jersey Irwin MD Other Provider Active Start: June 27, 2024 Dr. Ron Shaikh MD Other Provider Active Start: June 27, 2024 Team Status: Inactive Member Role Status Dates Krystin العراقي , MAID HOUSEKEEPER-C Primary Care Provider Active Start: August 05, 2024 End: August 05, 2024 Dr. Dejan Ferrara MD Attending Provider Active Start: August 05, 2024 End: August 05, 2024 Dr. Dejan Ferrara MD Referring Provider Active Start: August 05, 2024 End: August 05, 2024 Team Status: Inactive Member Role Status Dates Krystin العراقي MAID HOUSEKEEPER-C Primary Care Provider Active Start: August 19, 2024 End: August 19, 2024 Dr. Dejan Ferrara MD Attending Provider Active Start: August 19, 2024 End: August 19, 2024 Dr. Dejan Ferrara MD Referring Provider Active Start: August 19, 2024 End: August 19, 2024 Team Status: Inactive Member Role Status Dates Krystin العراقي MAID HOUSEKEEPER-C Primary Care Provider Active Start: August 24, 2024 End: August 24, 2024 Dr. Marion Christianson MD Attending Provider Active Start: August 24, 2024 End: August 24, 2024 Dr. Marion Christianson MD Referring Provider Active Start: August 24, 2024 End: August 24, 2024 Team Status: Active Member Role/Relationship Status Dates Krystin العراقي , MAID HOUSEKEEPER-C Primary Care Provider Active Team Status: Inactive Member Role/Relationship Status Dates Krystin العراقي MAID HOUSEKEEPER-C Primary Care Provider Active Start: August 05, 2024 End: August 05, 2024 Dr. Dejan Ferrara MD Attending Provider Active Start: August 05, 2024 End: August 05, 2024 Dr. Dejan Ferrara MD Referring Provider Active Start: August 05, 2024 End: August 05, 2024 Team Status: Inactive Member Role/Relationship Status Dates Krystin العراقي , MAID HOUSEKEEPER-C Primary Care Provider Active Start: August 19, 2024 End: August 19, 2024 Dr. Dejan Ferrara MD Attending Provider Active Start: August 19, 2024 End: August 19, 2024 Dr. Dejan Ferrara MD Referring Provider Active Start: August 19, 2024 End: August 19, 2024 Team Status: Inactive Member Role/Relationship Status Dates Krystin العراقي , MAID HOUSEKEEPER-C Primary Care Provider Active Start: August 24, 2024 End: August 24, 2024 Dr. Marion Christianson MD Attending Provider Active Start: August 24, 2024 End: August 24, 2024 Dr. Marion Christianson MD Referring Provider Active Start: August 24, 2024 End: August 24, 2024 Team Status: Active Member Role/Relationship Status Dates Krystin العراقي , MAID HOUSEKEEPER-C Primary Care Provider Active Start: November 18, 2024 Krystin العراقي , MAID HOUSEKEEPER-C Referring Provider Active Start: November 18, 2024 Dr. Denis Loja MD Attending Provider Active Start: November 18, 2024 Team Status: Inactive Member Role/Relationship Status Dates Krystin العراقي , MAID HOUSEKEEPER-C Primary Care Provider Active Start: November 18, 2024 End: November 18, 2024 Dr. Nilesh Schwartz MD Attending Provider Active S tart: November 18, 2024 End: November 18, 2024 Team Status: Inactive Member Role/Relationship Status Dates Krystin العراقي , MAID HOUSEKEEPER-C Primary Care Provider Active Start: November 18, 2024 End: November 18, 2024 Krystin العراقي , MAID HOUSEKEEPER-C Referring Provider Active Start: November 18, 2024 End: November 18, 2024 Dr. Denis Loja MD Attending Provider Active Start: November 18, 2024 End: November 18, 2024 Team Status: Inactive Member Role/Relationship Status Dates Krystin العراقي , MAID HOUSEKEEPER-C Primary Care Provider Active Start: November 18, 2024 End: November 18, 2024 Krystin العراقي , MAID HOUSEKEEPER-C Referring Provider Active Start: November 18, 2024 End: November 18, 2024 Dr. Denis Loja MD Attending Provider Active Start: November 18, 2024 End: November 18, 2024 Team Status: Inactive Member Role/Relationship Status Dates Krystin العراقي , MAID HOUSEKEEPER-C Primary Care Provider Active Start: November 18, 2024 End: November 18, 2024 Dr. Nilesh Schwartz MD Attending Provider Active S tart: November 18, 2024 End: November 18, 2024 Team Status: Inactive Member Role/Relationship Status Dates AUSTIN Woodward Primary Care Provider Active Start: December 16, 2024 End: December 16, 2024 Dr. Denis Loja MD Attending Provider Active Start: December 16, 2024 End: December 16, 2024 Dr. Denis Loja MD Referring Provider Active Start: December 16, 2024 End: December 16, 2024 FOR RECORDS PERTAINING TO PATIENTS WHO ARE [...] BE BASED ON THE PRIMARY CLINICAL RECORDS. [employer] [facility]. provides no warranty or guarantee of the accuracy or completeness of information in this document.
[2024-12-27 10:43] LABS: FOLATES,SERUM (FOLIC ACID) 18.60 ng/mL (4.60-34.80)
[2024-12-27 11:14] LABS: Vitamin B12 1812 pg/mL (180-914)
[2024-12-30 13:08] LABS: Vitamin D 1,25-Dihydroxy 37.8 pg/mL (24.8-81.5)
== END | disposition home or self-care (01) ==
LOC: MTLAB 07:11
PROVIDERS: PCP Nurse Practitioner Family; Referring Provider Nurse Practitioner Family; Visit Provider Nurse Practitioner Family
DX: I10 Essential (primary) hypertension (principal); E03.9 Hypothyroidism, unspecified; E55.9 Vitamin D deficiency, unspecified
CPT/HCPCS: 36415; 82607; 82652; 82746; 84443

== ENCOUNTER 2025-02-16 10:17 | Outpatient (CLI) | payer MEDICARE, SELFPAY ==
[2025-02-16 10:27] VITALS: BP 116/43; PULSE 83; RESP 18; TEMP 36.3; O2SAT 100
[2025-02-16] MEDS: DENOSUMAB 60 MG/ML SC (10:32)
== END 2025-02-16 23:59 | disposition home or self-care (01) ==
LOC: MEDOUTP 10:18
PROVIDERS: PCP Nurse Practitioner Family; Referring Provider Nurse Practitioner Family; Visit Provider Nurse Practitioner Family
DX: M81.0 Age-related osteoporosis without current pathological fracture (principal)
CPT/HCPCS: 96372; J0897